=== PATIENT | male | born 1955 | race Caucasian/White ===

== ENCOUNTER 2021-08-27 01:34 | Outpatient (CLI) | payer MEDICARE, BC, SELFPAY ==
[2021-08-27 12:50] LABS: CREATININE 1.5 mg/dL (0.70-1.30); Calculated LDL 57 mg/dL (<100); Cholesterol 115 mg/dL (<200); Estimated GFR 46.97 (mL/min/1.73m2); HDL Cholesterol 39 mg/dL (40-60); Triglyceride 95 mg/dL (<150)
[2021-08-27 22:13] LABS: PSA, Screening 1.1 ng/mL (<=4.5)
== END 2021-08-27 01:35 | disposition home or self-care (01) ==
LOC: LOS 01:34
PROVIDERS: PCP Nurse Practitioner Family; Visit Provider Nurse Practitioner Family
DX: E78.5 Hyperlipidemia, unspecified (principal); E11.9 Type 2 diabetes mellitus without complications; R35.0 Frequency of micturition; Z12.5 Encounter for screening for malignant neoplasm of prostate
CPT/HCPCS: 36415; 80061; 84153; 82565

== ENCOUNTER 2021-09-19 11:15 | Emergency (ER) | payer MEDICARE, BC, SELFPAY ==
[2021-09-19 11:26] VITALS: BP 154/95; PULSE 63; RESP 16; TEMP 36.8; O2SAT 97
--- NOTE | 2021-09-19 11:33 | W.ED.GENAD ---
Discharge Plan Disposition Patient Disposition: HOME Condition: Stable Discharge Details Clinical Impression: Contusion of rib Primary Care Provider: Maynor Hunt ED Provider: Apryl Sow Home Meds and New Rx's Prescriptions: New oxycodone 5 mg tablet 5 mg PO TID PRN (Reason: pain) Qty: 7 0RF Continued ipratropium bromide 21 mcg (0.03 %) spray,non-aerosol 2 spray intranasal TID Rx Instructions: administer into each nostril lisinopril 2.5 mg tablet 2.5 mg PO DAILY naproxen 500 mg tablet 500 mg PO BID divalproex 250 mg tablet extended release 24 hr PO DAILY metformin 500 mg tablet extended release 24 hr 500 mg PO BID Qty: 180 3RF bupropion HCl 100 mg tablet 100 mg PO DAILY bupropion HCl 150 mg tablet extended release 24 hr 150 mg PO QHS Qty: 90 3RF cyclobenzaprine 10 MG tablet 10 mg PO BID PRNQty: 30 atorvastatin [Lipitor] 20 MG tablet 20 mg PO HS Qty: 90 metoprolol succinate 50 mg tablet extended release 24 hr 50 mg PO DAILY memantine 28 mg capsule,sprinkle,ER 24hr 28 mg PO DAILY flecainide 100 mg tablet 100 mg PO BID Qty: 180 3RF donepezil 10 mg tablet 10 mg PO BID Qty: 180 3RF Discharge Instructions Instructions: Rib Contusion (ED) Additional Instructions: As we discussed, your imaging was reassuring here today. No evidence of bleeding or acute fracture. There was findings that you are already aware of including kidney stones as well as spinal fractures. Please encourage hydration. Please use the incentive spirometer to help prevent infection as instructed by nursing staff. You may use Tylenol to help with discomfort, please continue with the anti-inflammatories that you use daily. You may also use topical options such as lidocaine patches. A short prescription of oxycodone tablet has been refilled for you. Please take this only as directed, do not drive while taking this medication. Do not drink any alcohol while using this medication. Please follow-up with primary care in 1 to 2 weeks for reevaluation. If develop increased pain fevers/chills, shortness of breath or other new/worsening symptoms please seek care urgently once again. Referrals: Maynor Hunt, [employer]PL[employer] R[employer] CLERK [Primary Care Provider] - Discharge Data Discharge Date/Time-TO BE ENTERED AT DEPARTURE: 09/19/21 13:50 Medical Decision Making Patient is a pleasant 65-year-old male, accompanied by significant other, chief complaint of left-sided chest and abdominal pain. He reports that last night he was coming out at a friend's house when he slipped on wet stairs and fell 3-4 steps down landing on a large plastic recycling container striking left lower chest/left upper abdomen. He denies strike his head. No loss conscious. Denies any headache visual change. No nausea or vomiting. No incontinence. No fevers or chills. States that he has pain with deep inspiration. No shortness of breath when at rest. Pain with any movement. On exam, patient appears uncomfortable, particularly with movement. No evidence of head trauma, no C-spine tenderness. Full range of motion. Lungs are clear in all corrales, normal cardiac exam. He has point tenderness along the left inferior rib. No palpable deformity. Small area of ecchymosis along the anterior aspect of the left upper quadrant approximately 4 cm in diameter. Abdominal exam is significant for left upper quadrant pain. FAST exam performed myself, no acute abnormality Appreciated. Will give patient Tylenol and oxycodone for pain. He does have an allergy to morphine but if he cannot well with oxycodone in the past. Took an anti-inflammatory at this morning at per his normal routine. Consider most likely diagnosis of the rib fracture. However, as he does have left upper quadrant discomfort, also concern for potential injury to kidney, spleen, pancreas versus other. Patient I discussed imaging and will move forward with a noncontrast CT scan given the contrast shortage. Less obtain baseline labs. Patient also reports that he has had increased urinary frequency. Initially, he reported that this was new over the past month. However, feels that this is been going on much longer and associates this with history of previous stroke. I have abundance of caution, will obtain a urinalysis to evaluate for potential infection. He has not had any dysuria. No fevers or chills. No CVA tenderness, abdominal pain prior to fall. FINDINGS: Lungs: Unremarkable. No consolidation. No masses. Pleural spaces: Unremarkable. No pneumothorax. No pleural effusion. Heart: Unremarkable. No cardiomegaly. No pericardial effusion. Lymph nodes: Unremarkable. No enlarged lymph nodes. Vasculature: Unremarkable. No aortic aneurysm. Bones/joints: Unremarkable. No acute fracture. Soft tissues: Unremarkable. IMPRESSION: No acute findings. FINDINGS: Liver: Normal. No mass. Gallbladder and bile ducts: Normal. No calcified stones. No ductal dilation. Pancreas: Normal. No ductal dilation. Spleen: Normal. No splenomegaly. Adrenal glands: Normal. No mass. Kidneys and ureters: Bilateral nonobstructive nephrolithiasis. Stomach and bowel: Unremarkable. No obstruction. No mucosal thickening. Appendix: No evidence of appendicitis. Intraperitoneal space: Unremarkable. No free air. No significant fluid collection. Vasculature: Unremarkable. No abdominal aortic aneurysm. Lymph nodes: Unremarkable. No enlarged lymph nodes. Urinary bladder: Unremarkable as visualized. Reproductive: Unremarkable as visualized. Bones/joints: There is a compression fracture involving the inferior endplate of L1, with less than 25% loss of height. There is a compression fracture of T5, with approximately 50% loss of height. Soft tissues: Bilateral fat containing inguinal hernias. IMPRESSION: No acute intra-abdominal or intrapelvic findings. Age-indeterminate compression fractures involving T5 and L1. Bilateral nonobstructive nephrolithiasis. Discussed with patient. Slight anemia on labs which is baseline. Patient was aware of fx and stones. He reports feeling inproved fter APAP, lidoderm and oxycodone. Will give incentive spirometer. Patitent is preferring to have shallow breathing and splinting. Plan to continue with short course of oxycodone. Also discussed nonnarcotic pain medication options and supportive care. Advised contusion. Return precautions discussed. Advised f/u with PCP for reevaluation. All of his questions and concerns were addressed, he isin agreement with this plan. HPI General Date/Time Provider Initiated Documentation: 09/19/21 11:33. Limitations to Documentation: no limitations. Information obtained by: patient, family and RN notes reviewed. History of Present Illness 65 year old M presents to the emergency department with the chief complaint of left sided rib pain, described as moderate, with intensity rated at 7. Quality is described as aching, and is localized to the chest (left lower rib pain after fall). Patient reports no radiation. Patient started experiencing this day(s) and it has been constant. Immobilization improves symptom(s), Movement worsens symptoms . Patient notes no other symptoms.. Patient did receive the following treatments prior to arrival, none Related Data Home Medications Medication Instructions Recorded Confirmed atorvastatin 20 mg tablet (Lipitor) 20 mg PO HS #90 tab-caps 01/25/16 09/19/21 cyclobenzaprine 10 mg tablet 10 mg PO BID PRN #30 tab-caps 01/25/16 09/19/21 memantine 28 mg capsule 28 mg PO DAILY 08/14/21 09/19/21 sprinkle,extended release 24hr metoprolol succinate 50 mg 50 mg PO DAILY 08/14/21 09/19/21 tablet,extended release 24 hr ipratropium bromide 21 mcg (0.03 2 spray intranasal TID 08/18/21 09/19/21 %) nasal spray lisinopril 2.5 mg tablet 2.5 mg PO DAILY 08/18/21 09/19/21 naproxen 500 mg tablet 500 mg PO BID 08/18/21 09/19/21 bupropion HCl 100 mg tablet 100 mg PO DAILY 08/20/21 09/19/21 bupropion HCl 150 mg 24 hr tablet, 150 mg PO QHS #90 tabs 08/20/21 09/19/21 extended release divalproex 250 mg tablet,extended PO DAILY 08/20/21 09/02/21 release 24 hr metformin 500 mg tablet,extended 500 mg PO BID #180 tabs 08/20/21 09/19/21 release 24 hr donepezil 10 mg tablet 10 mg PO BID #180 tabs 08/25/21 09/19/21 flecainide 100 mg tablet 100 mg PO BID #180 tabs 08/25/21 09/19/21 oxycodone 5 mg tablet 5 mg PO TID PRN pain #7 tabs 09/19/21 Previous Rx's Medication Instructions Recorded bupropion HCl 150 mg 24 hr tablet, 150 mg PO QHS #90 tabs 08/20/21 extended release metformin 500 mg tablet,extended 500 mg PO BID #180 tabs 08/20/21 release 24 hr donepezil 10 mg tablet 10 mg PO BID #180 tabs 08/25/21 flecainide 100 mg tablet 100 mg PO BID #180 tabs 08/25/21 oxycodone 5 mg tablet 5 mg PO TID PRN pain #7 tabs 09/19/21 Allergies Allergy/AdvReac Type Severity Reaction Status Date / Time morphine Allergy Mild ITCHING Unverified 09/19/21 11:29 ciprofloxacin Allergy Unknown Unverified 09/19/21 11:29 codeine Allergy Unknown Unverified 09/19/21 11:29 dextromethorphan Allergy Unknown Unverified 09/19/21 11:29 [From Nuedexta] pollen extracts Allergy Unknown Unverified 09/19/21 11:29 quinidine [From Nuedexta] Allergy Unknown Unverified 09/19/21 11:29 Sulfa (Sulfonamide Allergy Unknown Unverified 09/19/21 11:29 Antibiotics) General Stated Complaint: Chest/Rib RERE: 3 Review of Systems Constitutional Constitutional: Reports as per HPI and Denies headache(s) ENT Ears, Nose, Mouth, and Throat: Denies headache(s) Cardiovascular Cardiovascular: Reports as per HPI, Denies dyspnea and Denies dyspnea on exertion Respiratory Respiratory: Reports as per HPI, Denies chest congestion, Denies cough, Denies dyspnea and Denies dyspnea on exertion Gastrointestinal Gastrointestinal: Reports as per HPI, Denies diarrhea, Denies nausea and Denies vomiting Genitourinary Genitourinary: Denies system reviewed and no additional complaints, except as documented (denies change in urinary habits) Musculoskeletal Musculoskeletal: Reports as per HPI and Denies back pain Integumentary/Breasts Skin/Breast: Reports as per HPI and Denies rash Neurologic Neurologic: Reports as per HPI and Denies headache(s) PFSH All Active Problems (Updated 09/19/21 @ 13:39 by TAQUERIA Linder) Contusion of rib (Acute) Urinary frequency (Acute) Tachycardia (Acute) MARTA (obstructive sleep apnea) (Chronic) Does not use CPAP Hyperlipidemia (Acute) Arthritis (Acute) Knees, lower back, shoulders Acute CVA (cerebrovascular accident) (Acute) 2018 and 2019 Chronic low back pain (Acute) Lumbar facet arthropathy (Acute) Lumbar spondylosis (Acute) without myelopathy or radiculopathy 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 Heart disease (Acute) Diabetes (Chronic) Mild cognitive impairment (Acute) Right frontal lobe punctate hemorrhage (Acute) Cerebral amyloid angiopathy (Acute) Generalized tonic-clonic seizure (Acute) Only 1 seizure ever after first CVA Diabetic peripheral neuropathy (Acute) Very mild Medical History (Updated 09/19/21 @ 13:39 by TAQUERIA Linder) Bilateral inguinal hernia 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 Status post appendectomy Family History (Updated 08/13/21 @ 16:59 by Myriam Joshi) Mother Heart disease Dementia Father Heart disease Alzheimer disease Brother Alcohol use disorder Depression Heart disease Grandfather Heart disease Grandfather Personal history of malignant neoplasm LUNG Grandmother Essential hypertension Heart disease Grandmother Diabetes Essential hypertension Personal history of malignant neoplasm COLON Heart disease Social History (Updated 08/16/21 @ 19:09 by Myriam Joshi) Smoking/Tobacco Use Status: Former Tobacco Use Second Hand Exposure: Yes Smoking risk assessment performed?: Yes Alcohol Intake: current Alcohol Intake frequency: holidays/special occasions only Drug use: Never Substance use type: does not use Caregiver/Support person: No Household members: significant other Do you need help understanding health information?: Always Pets and animals: Yes Pets and animals: cat(s) and dog(s) Do you think of yourself as: straight/heterosexual Current gender identity: male What is your relationship status?: living with partner How often do you talk on the phone with friends or family?: three or more times per week How often do you get together with friends or relatives?: twice per week How often do you attend alevism or jehovah's witness services?: decline to answer Do you belong to any clubs or organized social groups?: no Panel score (0-1 are the most socially isolated patients): 2 What type of physical activity do you participate in: none Yaima/Latter-Day: Catholic Seatbelt use: always Drive intox or ride w/intox delivery driver/supervisor: No Do you feel safe at home: Yes Do you feel safe in your relationship?: Yes Exam Const General: cooperative, healthy appearing, uncomfortable, no acute distress and well developed Nutritional Appearance: well nourished and overweight Orientation: alert, awake and oriented x3 [facility] Head: normal to inspection and atraumatic Ears: hearing grossly normal bilaterally Mouth: moist mucous membranes Neck Neck: normal visual inspection and full ROM Chest Chest: normal inspection of the chest, normal palpation of entire chest wall, no crepitus and localized rib tenderness with anteroposterior compression (left inferior lateral ribs) Resp Effort & Inspection: normal respiratory effort, able to speak in complete sentences and no respiratory distress Auscultation: clear to auscultation bilaterally, no rales, no rhonchi and no wheezes Cardio Rate: regular rate Rhythm: regular rhythm Heart Sounds: S1 normal and S2 normal GI Inspection: abdominal wall ecchymosis (4cm circular ecchymotic area LUQ), no edema and non-distended Palpation: soft, no hepatosplenomegaly, not firm, no guarding, not rigid and tender in the LUQ Auscultation: normal bowel sounds Back/Spine/Pelvis Back: no CVA tenderness Thoracic/Lumbar Spine: thoracic and lumbar spine normal to inspection, No paraspinal tenderness, No thoracic spinal tenderness and No lumbar spinal tenderness Skin General skin exam: ecchymosis Neuro General: patient alert, patient awake and patient oriented x3 Cognition: normal cognition Speech: speech normal Gait: normal gait Motor: muscle tone normal throughout and strength 5/5 throughout Sensory Exam: no sensory deficits noted (no saddle paresthesias) Extrem General: normal to inspection, capillary refill normal and normal gait Psych Appearance: grossly normal and well kempt Mental Status: mental status grossly normal Speech and Movement: speech and movement normal Course Vital Signs Vital signs: Vital Signs Temperature 36.8 C 09/19/21 11:26 Pulse 63 09/19/21 11:26 Respiratory Rate 16 09/19/21 11:26 Blood Pressure 154/95 H 09/19/21 11:26 Pulse Oximetry 97 09/19/21 11:26 Temperature 36.8 C 09/19/21 11:26 Temperature Source Temporal Artery Scan 09/19/21 11:26 Pulse 63 09/19/21 11:26 Respiratory Rate 16 09/19/21 11:26 Respiratory Effort Non-Labored 09/19/21 11:28 Blood Pressure 154/95 H 09/19/21 11:26 Blood Pressure Position Sitting 09/19/21 11:26 Pulse Oximetry 97 09/19/21 11:26 Oxygen Delivery Method Room Air 09/19/21 11:26 Oxygen Flow Rate 0 09/19/21 11:26 Pain Level 7 09/19/21 11:26
[2021-09-19 11:55] LABS: Bilirubin Negative (Negative); Blood Negative (Negative); Clarity Clear (Clear); Glucose Negative (Negative); Ketones Negative (Negative); Leukocyte Esterase Trace (Negative); Nitrite Negative (Negative); Specific Gravity >= 1.030 (1.005-1.025); Urobilinogen 0.2 EU/dL (Up TO 0.2); pH 5.5 (5-8)
--- NOTE | 2021-09-19 12:00 | DI.CT_ITS ---
Exam(s) CT CHEST/ABD/PEL WO EXAM: CT CHEST/ABD/PEL WO CLINICAL HISTORY: left sided injury, fall. TECHNIQUE: Imaging Protocol: Axial computed tomography images with coronal and sagittal reformatted images were created and reviewed CONTRAST MATERIAL: Intravenous: none Oral: None COMPARISON: No exams were available for comparison FINDINGS: CHEST: LUNGS: No evidence of lung contusion or pleural effusion or pneumothorax. No significant incidental nodules. MEDIASTINUM: No evidence of mediastinal hematoma. No hilar nor mediastinal adenopathy. Visualized t hyroid unremarkable. CARDIAC: Heart size is normal. There is no pericardial effusion.Caliber of the thoracic aorta is wit hin normal limits. OSSEOUS: There is a compression fracture of T5 which is predominately at the inferior endplate level. This is probably not acute given its appearance. ABDOMEN: There is no ascites. LIVER: No evidence of a patent laceration on this noninfused study. No other focal hepatic findings. GALLBLADDER/BILIARY: No obvious gallbladder pathology. CBD is not dilated. PANCREAS: No evidence of obvious pancreatic mass nor dilatation of the pancreatic duct. SPLEEN: Intact. No laceration. Normal size ADRENALS: There are no significant adrenal masses. KIDNEYS: There are multiple bilateral small nonobstructive renal calculi measuring up to 3 millimeter s. No hydronephrosis nor hydroureter and there are no calculi seen in the distal ureters nor in the nondistended urinary bladder.. There are no renal cysts nor solid masses. ABDOMINAL AORTA: Abdominal aorta is not enlarged. LYMPH NODES: There is no retroperitoneal nor para-aortic adenopathy. ABDOMINAL WALL/GI: There is an anterior abdominal wall midline fat containing umbilical hernia. No b owel loops therein. No bowel obstruction. No free air. No free fluid. PELVIS: LYMPH NODES: There is no intrapelvic nor inguinal adenopathy. GI: No evidence of appendicitis.There are few sigmoid diverticuli. No obvious acute diverticulitis. URINARY BLADDER: No calculi nor obvious masses evident REPRODUCTIVE: Prostate gland is not enlarged. Seminal vesicles unremarkable. OSSEOUS: No significant osseous lesions. Multilevel chronic degenerative disc disease throughout the lumbosacral spinal column. There is a Sc hmorl's node invagination in the inferior endplate of L1 vertebral body. IMPRESSION: 1. There are multiple bilateral nonobstructive renal calculi, these measure up to 3 millimeters. No hydronephrosis. No hydroureter. No radiopaque calculi in the nondistended urinary bladder. 2. Compression fracture of T5 predominantly at the inferior endplate level and not appearing acute. The correlation with site of tenderness is recommended. Also prominent Schmorl's node invagination i nto the inferior endplate of L1. 3. No significant intrathoracic findings. RADIATION DOSE DELIVERED: 1,759.47mGy.cm Total DLP DATA REPOSITORY: All CT scans at this facility are submitted to the National Radiology Data Registry (NRDR) Dose Index Registry (DIR) with the [employer] (ACR). RADIATION OPTIMIZATION: All CT scans at this facility use at least one of these dose optimization te chniques: automated exposure control; mA and/or kV adjustment per patient size (includes targeted exa ms where dose is matched to clinical indication); or iterative reconstruction.
[2021-09-19 12:03] LABS: Bacteria Rare HPF (Negative); Casts Negative LPF (Negative); Crystals Negative HPF (Negative); Epithelial Cells Rare HPF (Negative); Mucus Negative (Negative); RBC Negative HPF (0-2)
[2021-09-19 12:04] LABS: C & S Indicated? Yes
[2021-09-19] MEDS: Acetaminophen 500 MG TAB 1000 MG PO (12:34)
[2021-09-19] MEDS: oxyCODONE 5 MG TAB PO (12:34)
[2021-09-19] MEDS: Lidocaine 5% Patch 1 PATCH TP (12:36)
--- NOTE | 2021-09-19 12:51 | DI.VRAD_ITS ---
PROCEDURE INFORMATION: Exam: CT Chest Without Contrast; Diagnostic Exam date and time: 09/19/2021 12:23 PM Age: 65 years old Clinical indication: Injury or trauma; Llq; Blunt trauma (contusions or hematomas); Injury details: Left sided injury, fall; Additional info: CT contrast contingency protocol TECHNIQUE: Imaging protocol: Diagnostic computed tomography of the chest without contrast. COMPARISON: No relevant prior studies available. FINDINGS: Lungs: Unremarkable. No consolidation. No masses. Pleural spaces: Unremarkable. No pneumothorax. No pleural effusion. Heart: Unremarkable. No cardiomegaly. No pericardial effusion. Lymph nodes: Unremarkable. No enlarged lymph nodes. Vasculature: Unremarkable. No aortic aneurysm. Bones/joints: Unremarkable. No acute fracture. Soft tissues: Unremarkable. IMPRESSION: No acute findings. PROCEDURE INFORMATION: Exam: CT Abdomen And Pelvis Without Contrast Exam date and time: 09/19/2021 12:23 PM Age: 65 years old Clinical indication: Injury or trauma; Llq; Blunt trauma (contusions or hematomas); Injury details: Left sided injury, fall; Additional info: CT contrast contingency protocol TECHNIQUE: Imaging protocol: Computed tomography of the abdomen and pelvis without contrast. COMPARISON: No relevant prior studies available. FINDINGS: Liver: Normal. No mass. Gallbladder and bile ducts: Normal. No calcified stones. No ductal dilation. Pancreas: Normal. No ductal dilation. Spleen: Normal. No splenomegaly. Adrenal glands: Normal. No mass. Kidneys and ureters: Bilateral nonobstructive nephrolithiasis. Stomach and bowel: Unremarkable. No obstruction. No mucosal thickening. Appendix: No evidence of appendicitis. Intraperitoneal space: Unremarkable. No free air. No significant fluid collection. Vasculature: Unremarkable. No abdominal aortic aneurysm. Lymph nodes: Unremarkable. No enlarged lymph nodes. Urinary bladder: Unremarkable as visualized. Reproductive: Unremarkable as visualized. Bones/joints: There is a compression fracture involving the inferior endplate of L1, with less than 25% loss of height. There is a compression fracture of T5, with approximately 50% loss of height. Soft tissues: Bilateral fat containing inguinal hernias. IMPRESSION: No acute intra-abdominal or intrapelvic findings. Age-indeterminate compression fractures involving T5 and L1. Bilateral nonobstructive nephrolithiasis. Dictated and Authenticated by: George Sandra MD. Ordering:ROCHELLE Pink MD
[2021-09-19 13:06] LABS: HCT 36.6 % (40.0-50.0); HGB 12.1 g/dL (13.5-17.5); MCHC 33.1 % (32.0-36.0); MCV 91 fL (80-95); MPV 9.3 fL (8.0-11.0); Platelet Count 209 10^3/uL (130-400); RBC 4.04 10^6/uL (4.36-5.78); RDW 12.4 % (11.8-14.1); RDW-SD 40.6 fL; WBC 5.99 10^3/uL (4.4-10.8)
[2021-09-19 13:18] LABS: ALT 20 U/L (16-63); AST 13 U/L (15-37); Albumin 3.6 g/dL (3.4-5.0); Alkaline Phosphatase 86 U/L (46-116); Anion Gap 6.9 mmol/L (3-11); BUN 26 mg/dL (7-18); Bilirubin, Total 0.6 mg/dL (0.2-1.0); CO2 27.1 mmol/L (21.0-32.0); CREATININE 1.4 mg/dL (0.70-1.30); Calcium 8.8 mg/dL (8.5-10.1); Chloride 106 mmol/L (98-107); Estimated GFR 50.86 (mL/min/1.73m2); Glucose 104 mg/dL (74-106); Lipase 98 U/L (73-393); Potassium 4.4 mmol/L (3.5-5.1); Sodium 140 mmol/L (136-145); Total Protein 6.9 g/dL (6.4-8.2)
[2021-09-19 13:41] VITALS: BP 152/97; PULSE 60; RESP 16; TEMP 36.6; O2SAT 97
== END 2021-09-19 13:50 | disposition home or self-care (01) ==
PROVIDERS: Emergency Provider Physician Assistant; PCP Nurse Practitioner Family
DX: S20.212A Contusion of left front wall of thorax, initial encounter (principal); W10.8XXA Fall (on) (from) other stairs and steps, initial encounter; D64.9 Anemia, unspecified; R35.0 Frequency of micturition; E11.42 Type 2 diabetes mellitus with diabetic polyneuropathy
CPT/HCPCS: 36415; 71250; 80053; 83690; 85027; 99284; 74176; 81003; 81015; 87086

== ENCOUNTER → 2021-11-15 10:45 | Outpatient (BNVA) | payer MEDICARE, BC, SELFPAY | PROVIDERS: PCP Nurse Practitioner Family; Referring Provider Nurse Practitioner Family; Visit Provider Surgery | DX: R19.7 Diarrhea, unspecified (principal); M54.9 Dorsalgia, unspecified; G47.33 Obstructive sleep apnea (adult) (pediatric); I63.9 Cerebral infarction, unspecified; K40.20 Bilateral inguinal hernia, without obstruction or gangrene, not specified as recurrent; I45.4 Nonspecific intraventricular block; E11.9 Type 2 diabetes mellitus without complications | CPT/HCPCS: 99215; 99243 ==

== ENCOUNTER 2021-11-16 19:43 | Outpatient (REF) | payer MEDICARE, BC, SELFPAY ==
[2021-11-17 22:51] LABS: Campylobacter PCR Negative (Negative); Salmonella PCR Negative (Negative); Shiga Toxin PCR Negative (Negative); Shigella/Enteroinvasive Ecoli Negative (Negative)
== END 2021-11-16 19:44 | disposition home or self-care (01) ==
LOC: LBN 19:43
PROVIDERS: PCP Nurse Practitioner Family; Visit Provider Nurse Practitioner Family
DX: R19.7 Diarrhea, unspecified (principal)
CPT/HCPCS: 87505

== ENCOUNTER 2021-11-25 11:07 | Observation (INO) | payer MEDICARE, BC, SELFPAY ==
[2021-11-25] VITALS (17 sets, daily range): BP systolic 97–146; BP diastolic 53–89; PULSE 63–75; RESP 14–20; TEMP 38.3; O2SAT 92–99
--- NOTE | 2021-11-25 11:30 | DI.CT_ITS ---
Exam(s) CT HEAD WO EXAM: CT HEAD WO CLINICAL HISTORY: altered mental status, r/o acute cva. TECHNIQUE: Imaging Protocol: Axial computed tomography images with coronal and sagittal reformatted images were created and reviewed COMPARISON: No exams were available for comparison FINDINGS: There are no skull fractures nor fluid in the visualized paranasal sinuses. There is no evidence of intracranial hemorrhage, mass effect, or shift of midline structures. There are no extra-axial fluid collections. Lateral ventricles are slightly prominent, this related to abu ndant bilateral periventricular hypodensity consistent with prominent bilateral chronic small vessel disease. This is prominent bilaterally but somewhat more prominent on the right side where there is also evidence of prior infarct in the right periventricular white matter. There is no obvious abnorm ality in the cerebellar hemispheres nor within the rachael, midbrain, and thalami. IMPRESSION: There is abundant bilateral periventricular hypodensity consistent with chronic small vessel disease. Also evidence of nonacute previous infarct in the right periventricular white matter-frontal lobe r egion Recommend MRI. RADIATION DOSE DELIVERED: 817.02mGy.cm Total DLP DATA REPOSITORY: All CT scans at this facility are submitted to the National Radiology Data Registry (NRDR) Dose Index Registry (DIR) with the [employer] (ACR). RADIATION OPTIMIZATION: All CT scans at this facility use at least one of these dose optimization te chniques: automated exposure control; mA and/or kV adjustment per patient size (includes targeted exa ms where dose is matched to clinical indication); or iterative reconstruction.
--- NOTE | 2021-11-25 11:30 | RT.EKG_ITS ---
APPROVED REPORT Exam: Resting ECG Reason for Exam: Altered mental status Patient Location: E HR:70 bpm ECG Measurements Heart Rate 70 AXIS MN 225 P -45 QRSd 121 QRS -52 QT 444 T 15 QTc 478 Conclusion Sinus or ectopic atrial rhythm...P axis (-45,135) Prolonged MN interval...MN >220, V-rate 50- 90 Left ventricular hypertrophy...multiple LVH criteria. Sinus. No STEMI. I have reviewed and interpreted ECG and agree with software generated interpretation.
--- NOTE | 2021-11-25 11:38 | DI.RAD_ITS ---
Exam(s) XR CHEST 2V PA LATERAL EXAM: XR CHEST 2V PA LATERAL CLINICAL HISTORY: covid +, weak, r/o pneumonia. TECHNIQUE: 2D digital imaging was performed. COMPARISON: CR CHEST 2 VIEWS PA,LAT from 02/02/2013 FINDINGS: 2 views: Heart size is normal. The mediastinum is not widened. Lungs are clear. No infiltrates nor pleural effusions. IMPRESSION: No acute pulmonary findings. DATA REPOSITORY: RADIATION DOSE DELIVERED:
[2021-11-25 11:54] LABS: Abs Immature Grans 0.03 10^3/uL (0.0-0.06); Absolute Basophil Count 0.02 10^3/uL (0.0-0.2); Absolute Eosinophil Count 0.01 10^3/uL (0.0-0.7); Absolute Lymphocyte Count 0.51 10^3/uL (1.2-3.4); Absolute Monocyte Count 0.51 10^3/uL (0.1-0.8); Absolute Neutrophil Count 5.39 10^3/uL (1.2-6.7); Basophils % 0.3; Eosinophils % 0.2; HCT 37.3 % (40.0-50.0); HGB 12.3 g/dL (13.5-17.5); Immature Grans % 0.5; Lymphocytes % 7.9; MCH 29.9 pg (27.0-33.0); MCV 91 fL (80-95); MPV 9.8 fL (8.0-11.0); Monocytes % 7.9; Neutrophils % 83.2; Platelet Count 198 10^3/uL (130-400); RBC 4.11 10^6/uL (4.36-5.78); RDW-SD 43.7 fL; WBC 6.47 10^3/uL (4.4-10.8)
[2021-11-25 12:09] LABS: Source Nasal/Nares
[2021-11-25 12:11] LABS: ALT 25 U/L (16-63); AST 22 U/L (15-37); Albumin 3.5 g/dL (3.4-5.0); Alkaline Phosphatase 90 U/L (46-116); BUN 22 mg/dL (7-18); Bilirubin, Total 0.4 mg/dL (0.2-1.0); CREATININE 1.6 mg/dL (0.70-1.30); Calcium 8.4 mg/dL (8.5-10.1); Chloride 104 mmol/L (98-107); Estimated GFR 43.46 (mL/min/1.73m2); Glucose 139 mg/dL (74-106); Magnesium 1.8 mg/dL (1.8-2.4); Sodium 140 mmol/L (136-145); Total Protein 7.3 g/dL (6.4-8.2); Troponin I < 50 ng/L (<or=60)
--- NOTE | 2021-11-25 12:19 | W.ED.GENAD ---
Discharge Plan Disposition Patient Disposition: [facility] INPATIENT Condition: Stable Discharge Details Clinical Impression: COVID-19, Generalized weakness, UTI (urinary tract infection), Chronic diarrhea Admit Date/Time: 11/25/21 17:31 Admit Provider: Bebeto Guzman Attending Provider: Bebeto Guzman Primary Care Provider: Maynor Hunt ED Provider: Nela Abdullahi Discharge Data Discharge Date/Time-TO BE ENTERED AT DEPARTURE: 11/25/21 21:06 Medical Decision Making 1130 -- 66-year-old male with a history of diabetes, previous hemorrhagic stroke, hypertension, hyperlipidemia, obstructive sleep apnea and mild dementia presents for confusion last night around 10:30 PM, and an episode of weakness today with difficulty getting up from the floor. No report of syncope edema fall or trauma. Patient's main complaint at this time is fatigue. He took an at home COVID test yesterday which was positive. Hypotensive on arrival with blood pressure 107/56. He has no focal deficits on exam. EKG on arrival notes a rate of 70, sinus, no STEMI nondiagnostic. Patient is outside the window for tPA if this is a possible stroke. Differential diagnosis includes expected course for COVID, dehydration, UTI, electrolyte abnormality, arrhythmia. Will place an IV, bolus IV fluids, screening labs, urinalysis, CT head, chest x-ray and D-dimer. 1700 -- Labs and imaging reviewed. Normal WBC. Troponin negative. CT head negative. Chest x-ray negative. MRI/MRA brain negative for acute stroke but per discussion with Dr. Yen, there are potential areas for hemorrhage on susceptibility imaging but no acute stroke or bleed noted. D dimer was above age-adjusted cutoff and patient was referred for CT chest which was negative for PE. Per radiology staff, patient timing with contrast was delayed and decison made to rescan with contrast per discussion with Dr. Yen and radiology staff and cleared for second dose of contrast which was less than the initial dose. Please refer to radiology records for further information regarding this incident. Urinalysis notes findings consistent with UTI. Will treat with Rocephin. Urine culture sent. Patient reassessed and he remains fatigued. Considering patient's age and history, will admit for hydration, treatment of UTI, antiviral treatment for COVID considering his multiple comorbidities and have PT evaluation. Case discussed with hospitalist who accepts patient for admission. Medical Records Medical records reviewed: Yes I reviewed the patient's medical records. Imaging Data Radiologic Study: Radiologist's impression: ?CT HEAD WO CLINICAL HISTORY: ? altered mental status, r/o acute cva. ? TECHNIQUE:? Imaging Protocol: Axial computed tomography images with coronal and sagittal reformatted images were created and reviewed COMPARISON:? No exams were available for comparison FINDINGS: ?There are no skull fractures nor fluid in the visualized paranasal sinuses. There is no evidence of intracranial hemorrhage, mass effect, or shift of midline structures.? There are no extra-axial fluid collections.? Lateral ventricles are slightly prominent, this related to abundant bilateral periventricular hypodensity consistent with prominent bilateral chronic small vessel disease.? This is prominent bilaterally but somewhat more prominent on the right side where there is also evidence of prior infarct in the right periventricular white matter.? There is no obvious abnormality in the cerebellar hemispheres nor within the rachael, midbrain, and thalami. IMPRESSION: There is abundant bilateral periventricular hypodensity consistent with chronic small vessel disease.? Also evidence of nonacute previous infarct in the right periventricular white matter-frontal lobe region Recommend MRI. XR CHEST 2V PA ? LATERAL CLINICAL HISTORY: ? covid +, weak, r/o pneumonia. ? TECHNIQUE:? 2D digital imaging was performed. COMPARISON:? CR CHEST 2 VIEWS PA,LAT from 02/02/2013 FINDINGS: 2 views: Heart size is normal.? The mediastinum is not widened. Lungs are clear.? No infiltrates nor pleural effusions. IMPRESSION: No acute pulmonary findings. CT CHEST PE CTA CLINICAL HISTORY: ? elevated d dimer, r/o PE. ? TECHNIQUE:? Imaging Protocol: CT angiography of the chest was performed using pulmonary embolus protocol.? Multi planar reconstructions were performed. CONTRAST MATERIAL:? Intravenous: Omnipaque 350 Contrast volume: 100 cc COMPARISON:? CT CT CHEST/ABD/PEL WO from 09/19/2021 CR XR CHEST 2V PA ? LATERAL from 11/25/2021 FINDINGS: CHEST: PULMONARY ARTERIES: There are no intraluminal filling defects to suggest acute pulmonary emboli. LUNGS: No confluent infiltrates nor pleural effusions.? Mild increased markings which appear to be more related to less than full inspiratory effort than actual true disease..? There are no pleural effusions. MEDIASTINUM: There is no hilar nor mediastinal adenopathy. Visualized thyroid unremarkable. CARDIAC: Heart size is upper normal.? There is no pericardial effusion.Caliber of the thoracic aorta is within normal limits. No dissection.? There is no significant shift of the interventricular septum. PARTIALLY VISUALIZED UPPERMOST ABDOMEN: No obvious findings OSSEOUS: T5 compression fracture appears unchanged.? No new additional fractures evident.. IMPRESSION: 1. No evidence of acute pulmonary emboli.? No evidence of pulmonary infarction.No pleural effusions. 2. No confluent infiltrates nor intrathoracic adenopathy. 3. No aortic dissection nor pericardial effusion. T5 compression fracture again noted.? No new fractures evident. MR BRAIN WO CLINICAL HISTORY:? weakness, confusion, r/o acute cva TECHNIQUE:? Multiplanar multisequence MRI of the brain was performed. COMPARISON:? CT CT HEAD WO from 11/25/[address] CHEST PE CTA from 11/25/2021 FINDINGS: CEREBRAL PARENCHYMA: There is no evidence of acute intracranial hemorrhage, mass effect, or shift of midline structures.? There are no extra-axial fluid collections.? No significant signal abnormalities in the cerebellar hemispheres nor within the rachael, midbrain, and thalami.? There is abundant bilateral confluent periventricular signal abnormality consistent with chronic small vessel disease.? There is also evidence of prior nonacute infarction in the right frontal lobe, consistent with what is seen on the CT scan.? There is no restricted diffusion at this level nor elsewhere in the brain. There is no significant focal signal abnormality evident on diffusion imaging to suggest acute ischemic event. Susceptibility weighted imaging reveals abundant abnormal blooming signal with innumerable microhemorrhages throughout the brain bilaterally as well as evidence of prior hemorrhage in the area of encephalomalacia in the right frontal lobe.? Also in the bilateral occipital parietal regions.? In the left occipital parietal region there is a cyst since stripe of T2 hypointense signal abnormality which is isointense on T1.? This is also consistent with small area prior prior hemorrhage. PITUITARY GLAND: No mass nor parasellar abnormality. No obvious abnormality in the cavernous sinuses. FLOW VOIDS: The expected flow void are noted. No evidence of obvious aneurysm nor obvious vascular malformation. PARANASAL SINUSES: Some mucosal thickening in the left maxillary sinus is noted.? Right maxillary sinus is clear as are the other paranasal sinuses including the frontal sinuses and mastoid air cells.? ORBITS: No obvious findings. IMPRESSION: Abundant chronic bilateral white matter small-vessel disease.? Evidence of previous hemorrhagic infarct in the right frontal lobe and left [id number] region. No acute infarcts evident on diffusion imaging.? However, there are numerous bilateral areas of microhemorrhages on susceptibility weighted imaging See separate CT scan report See separate brain MRA report MR ANGIO BRAIN WO CLINICAL HISTORY:? confusion, weakness, r/o acute cva TECHNIQUE:? Performed on 1.5 aster unit with [id number] sequence.? No IV contrast. Field of view is from the skull base up. Images somewhat degraded by motion artifact COMPARISON:? MR MR BRAIN WO from 11/25/2021 FINDINGS: ANTERIOR CIRCULATION: Internal carotid arteries appear to be patent in the skull base-carotid canals as well as within the cavernous sinuses.? The supraclinoid aspects are patent.? Both A1 segments are patent as are the anterior cerebral arteries.? There is no aneurysm at the level of the anterior communicating artery. Both middle cerebral arteries are patent.? In a no significant stenosis.? No occlusion.? No aneurysm in these vessels. POSTERIOR CIRCULATION: Basilar artery is formed at the skull base by contribution from both vertebral arteries.? Basilar artery ascends in the midline with normal luminal diameter and no evidence of thrombosis nor dissection. .? Distally gives off patent superior cerebellar arteries.? Above this level the basilar artery terminates as patent left posterior cerebral artery and a thin right posterior cerebral artery.? The right posterior cerebral artery is also supplied by a thin posterior communicating artery on the right side of the [id number]-[id number].? Both posterior cerebral arteries appear patent.? There is no evidence of aneurysm at the tip of the basilar artery nor elsewhere in the kbexyf-jk-Mcimbk. IMPRESSION: 1. Less than optimal study due to motion but the main intracranial arteries appear patent, as described above. 2. Also no aneurysms. See separate brain CT and MRI reports performed today.. Lab Data Lab results reviewed: Yes I reviewed the patient's lab results. Labs: 11/25/21 13:16 Urine - Reflex from Ua Urine Culture - Pending Laboratory Tests Range/Units 11/25/21 11/25/21 11/25/21 11:42 11:42 11:42 WBC (4.4-10.8) 10^3/uL 6.47 RBC (4.36-5.78) 10^6/uL 4.11 L Hgb (13.5-17.5) g/dL 12.3 L Hct (40.0-50.0) % 37.3 L MCV (80-95) fL 91 MCH (27.0-33.0) pg 29.9 MCHC (32.0-36.0) % 33.0 RDW (11.8-14.1) % 13.0 Plt Count (130-400) 10^3/uL 198 MPV (8.0-11.0) fL 9.8 Immature Gran % 0.5 Neutrophils % 83.2 Lymphocytes % 7.9 Monocytes % 7.9 Eosinophils % 0.2 Basophils % 0.3 Nucleated RBC % (0.0-0.3) % 0.0 Absolute Neutrophils (1.2-6.7) 10^3/uL 5.39 Absolute Lymphocytes (1.2-3.4) 10^3/uL 0.51 L Absolute Monocytes (0.1-0.8) 10^3/uL 0.51 Absolute Eosinophils (0.0-0.7) 10^3/uL 0.01 Absolute Basophils (0.0-0.2) 10^3/uL 0.02 D-Dimer (<500) ng/mlFEU Sodium (136-145) mmol/L 140 Potassium (3.5-5.1) mmol/L 4.0 Chloride (98-107) mmol/L 104 Carbon Dioxide (21.0-32.0) mmol/L 26.0 Anion Gap (3-11) mmol/L 10.0 BUN (7-18) mg/dL 22 H Creatinine (0.70-1.30) mg/dL 1.6 H Estimated GFR/1.73 m2 (mL/min/1.73m2) 43.46 Glucose (74-106) mg/dL 139 H Calcium (8.5-10.1) mg/dL 8.4 L Magnesium (1.8-2.4) mg/dL 1.8 Total Bilirubin (0.2-1.0) mg/dL 0.4 AST (15-37) U/L 22 ALT (16-63) U/L 25 Alkaline Phosphatase (46-116) U/L 90 Troponin I (<or=60) ng/L < 50 Total Protein (6.4-8.2) g/dL 7.3 Albumin (3.4-5.0) g/dL 3.5 Urine Color (Yellow) Urine Clarity (Clear) Urine pH (5-8) Ur Specific Preston (1.005-1.025) Urine Protein (Negative) mg/dL Urine Ketones (Negative) mg/dL Urine Blood (Negative) Urine Nitrite (Negative) Urine Bilirubin (Negative) Urine Urobilinogen (Up TO 0.2) EU/dL Ur Leukocyte Esterase (Negative) Urine RBC (0-2) HPF Urine WBC (0-5) HPF Ur Epithelial Cells (Negative) HPF Urine Crystals (Negative) HPF Urine Bacteria (Negative) HPF Urine Casts (Negative) LPF Urine Mucus (Negative) Ur Culture Indicated? Urine Glucose (Negative) mg/dL COVID-19 Source Cancelled SARS-CoV-2 (PCR) Cancelled Range/Units 11/25/21 11/25/21 11/25/21 11:42 12:05 13:16 WBC (4.4-10.8) 10^3/uL RBC (4.36-5.78) 10^6/uL Hgb (13.5-17.5) g/dL Hct (40.0-50.0) % MCV (80-95) fL MCH (27.0-33.0) pg MCHC (32.0-36.0) % RDW (11.8-14.1) % Plt Count (130-400) 10^3/uL MPV (8.0-11.0) fL Immature Gran % Neutrophils % Lymphocytes % Monocytes % Eosinophils % Basophils % Nucleated RBC % (0.0-0.3) % Absolute Neutrophils (1.2-6.7) 10^3/uL Absolute Lymphocytes (1.2-3.4) 10^3/uL Absolute Monocytes (0.1-0.8) 10^3/uL Absolute Eosinophils (0.0-0.7) 10^3/uL Absolute Basophils (0.0-0.2) 10^3/uL D-Dimer (<500) ng/mlFEU 722 H Sodium (136-145) mmol/L Potassium (3.5-5.1) mmol/L Chloride (98-107) mmol/L Carbon Dioxide (21.0-32.0) mmol/L Anion Gap (3-11) mmol/L BUN (7-18) mg/dL Creatinine (0.70-1.30) mg/dL Estimated GFR/1.73 m2 (mL/min/1.73m2) Glucose (74-106) mg/dL Calcium (8.5-10.1) mg/dL Magnesium (1.8-2.4) mg/dL Total Bilirubin (0.2-1.0) mg/dL AST (15-37) U/L ALT (16-63) U/L Alkaline Phosphatase (46-116) U/L Troponin I (<or=60) ng/L Total Protein (6.4-8.2) g/dL Albumin (3.4-5.0) g/dL Urine Color (Yellow) Yellow Urine Clarity (Clear) Sl Cloudy Urine pH (5-8) 5.5 Ur Specific Preston (1.005-1.025) >= 1.030 H Urine Protein (Negative) mg/dL 30 H Urine Ketones (Negative) mg/dL Negative Urine Blood (Negative) Moderate H Urine Nitrite (Negative) Negative Urine Bilirubin (Negative) Negative Urine Urobilinogen (Up TO 0.2) EU/dL 0.2 Ur Leukocyte Esterase (Negative) Small H Urine RBC (0-2) HPF 10-20 H Urine WBC (0-5) HPF 20-50 H Ur Epithelial Cells (Negative) HPF Few Urine Crystals (Negative) HPF Negative Urine Bacteria (Negative) HPF Many Urine Casts (Negative) LPF 0-2 Hyaline Urine Mucus (Negative) Negative Ur Culture Indicated? Yes Urine Glucose (Negative) mg/dL Negative COVID-19 Source Nasal/Nares SARS-CoV-2 (PCR) POSITIVE A* ECG Data Attestation: I personally reviewed and interpreted this ECG (s) as follows: Interpretation: Rate of 70, sinus, no STEMI HPI General Mode of arrival: ambulatory. Date/Time Provider Initiated Documentation: 11/25/21 11:09. Limitations to Documentation: no limitations. Information obtained by: patient. HPI Narrative: Patient is a 56-year-old male with a history of previous hemorrhagic stroke, diabetes, hypertension, hyperlipidemia, mild dementia, sleep apnea who presents for confusion last night and weakness with difficulty getting up from the floor after an episode of weakness today. states that patient has had ongoing urinary incontinence for a month occurring 1-3 times daily. She states last night he had an episode of incontinence and appeared confused at the time which is new. She states he was asking about a balloon. She states today she left the camper where they are staying to go into a nearby house for a cup of coffee and she heard him call out to her. When she went to him he was lying on the ground and appeared aguilar and sweaty and was having difficulty getting up. She states he was eventually able to get up and she assisted him outside. She states when she found him on the floor he also had soiled himself with watery brown diarrhea which she states has been ongoing for several months which is currently being evaluated. Patient states he did not pass out. He states he was walking in a camper and felt weak and denies any injury or or fall. He states he thinks he lowered himself to the ground and was too weak to get up on his own. states that patient drinks mainly diet soda and does not drink water. She states that he took an at home COVID test yesterday for a recent productive cough which was positive. She states he is fully vaccinated for COVID but did attend a wedding over the weekend. Patient states his main complaint at this time is mainly fatigue. He denies any known fever, sore throat, chest pain, difficulty breathing, abdominal pain, dysuria. Related Data Home Medications Medication Instructions Recorded Confirmed atorvastatin 20 mg tablet (Lipitor) 20 mg PO HS #90 tab-caps 01/25/16 11/30/21 cyclobenzaprine 10 mg tablet 10 mg PO BID PRN #30 tab-caps 01/25/16 11/30/21 memantine 28 mg capsule 28 mg PO DAILY 08/14/21 11/30/21 sprinkle,extended release 24hr bupropion HCl 100 mg tablet 100 mg PO DAILY 08/20/21 11/30/21 divalproex 250 mg tablet,extended 250 mg PO DAILY 08/20/21 11/30/21 release 24 hr donepezil 10 mg tablet 10 mg PO BID #180 tabs 08/25/21 11/30/21 flecainide 100 mg tablet 100 mg PO BID #180 tabs 08/25/21 11/30/21 ipratropium bromide 21 mcg (0.03 2 spray intranasal TID #30 mL 09/27/21 11/30/21 %) nasal spray lisinopril 2.5 mg tablet 2.5 mg PO DAILY #90 tabs 10/07/21 11/30/21 bupropion HCl 150 mg tablet,12 hr 150 mg PO QHS #90 tabs 10/11/21 11/30/21 sustained-release metformin 500 mg tablet,extended 500 mg PO DAILY #180 tabs 10/20/21 11/30/21 release 24 hr metoprolol succinate 50 mg 50 mg PO DAILY #90 tabs 10/20/21 11/30/21 tablet,extended release 24 hr diphenoxylate-atropine 2.5 1 tab PO TID PRN diarrhea #60 tabs 11/11/21 11/30/21 mg-0.025 mg tablet (Lomotil) cefpodoxime 200 mg tablet 200 mg PO BID #10 tabs 11/26/21 11/30/21 Previous Rx's Medication Instructions Recorded donepezil 10 mg tablet 10 mg PO BID #180 tabs 08/25/21 flecainide 100 mg tablet 100 mg PO BID #180 tabs 08/25/21 ipratropium bromide 21 mcg (0.03 2 spray intranasal TID #30 mL 09/27/21 %) nasal spray lisinopril 2.5 mg tablet 2.5 mg PO DAILY #90 tabs 10/07/21 bupropion HCl 150 mg tablet,12 hr 150 mg PO QHS #90 tabs 10/11/21 sustained-release metformin 500 mg tablet,extended 500 mg PO DAILY #180 tabs 10/20/21 release 24 hr metoprolol succinate 50 mg 50 mg PO DAILY #90 tabs 10/20/21 tablet,extended release 24 hr diphenoxylate-atropine 2.5 1 tab PO TID PRN diarrhea #60 tabs 11/11/21 mg-0.025 mg tablet (Lomotil) cefpodoxime 200 mg tablet 200 mg PO BID #10 tabs 11/26/21 Allergies Allergy/AdvReac Type Severity Reaction Status Date / Time morphine Allergy Mild ITCHING Unverified 11/30/21 12:03 ciprofloxacin Allergy Unknown Unverified 11/30/21 12:03 codeine Allergy Unknown Unverified 11/30/21 12:03 dextromethorphan Allergy Unknown Unverified 11/30/21 12:03 [From Nuedexta] pollen extracts Allergy Unknown Unverified 11/30/21 12:03 quinidine [From Nuedexta] Allergy Unknown Unverified 11/30/21 12:03 Sulfa (Sulfonamide Allergy Unknown Unverified 11/30/21 12:03 Antibiotics) General Stated Complaint: CVA/TIA RERE: 2 Review of Systems All systems reviewed & are unremarkable except as noted in HPI and below Constitutional Constitutional: Denies chills, Denies excessive sweating, Reports fatigue, Denies fever(s), Reports headache(s), Denies weakness and Denies weight loss Eyes Eyes: Reports system reviewed and no additional complaints, except as documented and Denies blurry vision ENT Ears, Nose, Mouth, and Throat: Denies vertigo, Denies dizziness, Denies otalgia, Reports headache(s), Denies nasal congestion, Denies sore throat and Denies throat swelling Cardiovascular Cardiovascular: Denies chest pain, Denies syncope, Denies rapid heart rate and Denies dyspnea Respiratory Respiratory: Denies chest congestion, Reports cough, Denies pain on inspiration and Denies dyspnea Gastrointestinal Gastrointestinal: Denies abdominal pain, Denies diarrhea and Denies vomiting Genitourinary Genitourinary: Denies hematuria, Denies dysuria, Denies flank pain and Reports urinary incontinence Musculoskeletal Musculoskeletal: Denies back pain and Denies joint swelling Integumentary/Breasts Skin/Breast: Denies lesions and Denies rash Neurologic Neurologic: Denies behavioral changes, Denies confusion, Denies vertigo, Denies dizziness, Denies syncope, Reports headache(s), Denies localized weakness and Denies weakness Psychiatric Psychiatric: Denies behavioral changes, Denies confusion and Denies depression Endocrine Endocrine: Denies excessive sweating and Reports fatigue Hematologic/Lymphatic Hematologic/Lymphatic: Denies easy bruising and Denies lymphadenopathy Allergic/Immunologic Allergic/Immunologic: Denies throat swelling PFSH All Active Problems (Updated 12/01/21 @ 10:11 by TAQUERIA Ospina) Right-sided chest wall pain (Acute) Abdominal pain, RUQ (Acute) Hypertension (Chronic) COVID-19 (Acute) UTI (urinary tract infection) (Acute) Generalized weakness (Acute) Chronic diarrhea (Chronic) Mild cognitive impairment (Chronic) Diabetes (Chronic) COVID-19 (Acute) 11/24/21 Vaccinated, boosted Umbilical hernia (Acute) Back pain (Acute) Diarrhea (Acute) Urinary frequency (Acute) Tachycardia (Chronic) MARTA (obstructive sleep apnea) (Chronic) Does not use CPAP Hyperlipidemia (Acute) Arthritis (Acute) Knees, lower back, shoulders Acute CVA (cerebrovascular accident) (Acute) 2018 and 2019 Chronic low back pain (Acute) Lumbar facet arthropathy (Acute) Lumbar spondylosis (Acute) without myelopathy or radiculopathy 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 Heart disease (Acute) Cerebral amyloid angiopathy (Acute) Generalized tonic-clonic seizure (Acute) Only 1 seizure ever after first CVA Diabetic peripheral neuropathy (Acute) Very mild Medical History Bilateral inguinal hernia 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 Status post appendectomy At age 13 Family History Mother Heart disease Dementia Father Heart disease Alzheimer disease Brother Alcohol use disorder Depression Heart disease Grandfather Heart disease Grandfather Personal history of malignant neoplasm LUNG Grandmother Essential hypertension Heart disease Grandmother Diabetes Essential hypertension Personal history of malignant neoplasm COLON Heart disease Social History Smoking/Tobacco Use Status: Former Tobacco Use Second Hand Exposure: Yes Smoking risk assessment performed?: Yes Alcohol Intake: current Alcohol Intake frequency: holidays/special occasions only Drug use: Never Substance use type: does not use Caregiver/Support person: No Household members: significant other Do you need help understanding health information?: Always Pets and animals: Yes Pets and animals: cat(s) and dog(s) Do you think of yourself as: straight/heterosexual Current gender identity: male What is your relationship status?: living with partner How often do you talk on the phone with friends or family?: three or more times per week How often do you get together with friends or relatives?: twice per week How often do you attend denominational or islam services?: decline to answer Do you belong to any clubs or organized social groups?: no Panel score (0-1 are the most socially isolated patients): 2 What type of physical activity do you participate in: none Yaima/Islam: Scientology Seatbelt use: always Drive intox or ride w/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 mounted: No Do you feel safe at home: Yes Do you feel safe in your relationship?: Yes Exam Const General: cooperative Orientation: alert, awake and oriented x3 HENMT Head: normal to inspection Ears: hearing grossly normal bilaterally, external ears normal and TM's normal bilaterally General nose exam: external nose normal Face and sinus: normal facial exam Mouth: mucous membranes dry Teeth and gingiva: dentition normal Throat: posterior oropharynx normal Eyes General: appearance normal, both eyes and all related structures Eyelids: eyelids normal Pupils: PERRL EOM: EOM intact bilaterally Neck Neck: normal visual inspection Lymphatic: no lymphadenopathy noted Chest Chest: normal inspection of the chest Resp Effort & Inspection: normal respiratory effort and able to speak in complete sentences Auscultation: clear to auscultation bilaterally Cardio Rate: regular rate Rhythm: regular rhythm GI Inspection: normal to inspection Palpation: soft, not firm, no guarding, no hepatosplenomegaly, no masses and nontender Auscultation: normal bowel sounds Back/Spine/Pelvis Back: no CVA tenderness Skin General skin exam: no rashes or lesions noted Neuro General: patient alert and patient awake Cognition: normal cognition Speech: speech normal Gait: normal gait Motor: muscle tone normal throughout Sensory Exam: no sensory deficits noted Extrem General: normal to inspection, full ROM and capillary refill normal Psych Appearance: grossly normal Mental Status: mental status grossly normal Speech and Movement: speech and movement normal Affect: normal affect Thought Process: normal Course Vital Signs Vital signs: Vital Signs Pulse 69 11/25/21 11:13 Respiratory Rate 18 11/25/21 11:13 Blood Pressure 107/56 L 11/25/21 11:13 Pulse Oximetry 96 11/25/21 11:13 Temperature Source Temporal Artery Scan 11/25/21 11:13 Pulse 69 11/25/21 11:13 Respiratory Rate 20 11/25/21 11:25 Respiratory Effort 11/25/21 11:25 Respiratory Depth Normal 11/25/21 11:25 Respiratory Pattern Normal 11/25/21 11:25 Blood Pressure 107/56 L 11/25/21 11:13 Blood Pressure Position Sitting 11/25/21 11:13 Pulse Oximetry 96 11/25/21 11:13 Oxygen Delivery Method Room Air 11/25/21 11:13 Oxygen Flow Rate 0 11/25/21 11:13 Pain Level 6 11/25/21 11:13 Lab/Test Results Lab/Test Results: Laboratory Tests Range/Units 11/25/21 11/25/21 11/25/21 11:42 11:42 11:42 WBC (4.4-10.8) 10^3/uL 6.47 RBC (4.36-5.78) 10^6/uL 4.11 L Hgb (13.5-17.5) g/dL 12.3 L Hct (40.0-50.0) % 37.3 L MCV (80-95) fL 91 MCH (27.0-33.0) pg 29.9 MCHC (32.0-36.0) % 33.0 RDW (11.8-14.1) % 13.0 Plt Count (130-400) 10^3/uL 198 MPV (8.0-11.0) fL 9.8 Immature Gran % 0.5 Neutrophils % 83.2 Lymphocytes % 7.9 Monocytes % 7.9 Eosinophils % 0.2 Basophils % 0.3 Nucleated RBC % (0.0-0.3) % 0.0 Absolute Neutrophils (1.2-6.7) 10^3/uL 5.39 Absolute Lymphocytes (1.2-3.4) 10^3/uL 0.51 L Absolute Monocytes (0.1-0.8) 10^3/uL 0.51 Absolute Eosinophils (0.0-0.7) 10^3/uL 0.01 Absolute Basophils (0.0-0.2) 10^3/uL 0.02 Sodium (136-145) mmol/L 140 Potassium (3.5-5.1) mmol/L 4.0 Chloride (98-107) mmol/L 104 Carbon Dioxide (21.0-32.0) mmol/L 26.0 Anion Gap (3-11) mmol/L 10.0 BUN (7-18) mg/dL 22 H Creatinine (0.70-1.30) mg/dL 1.6 H Estimated GFR/1.73 m2 (mL/min/1.73m2) 43.46 Glucose (74-106) mg/dL 139 H Calcium (8.5-10.1) mg/dL 8.4 L Magnesium (1.8-2.4) mg/dL 1.8 Total Bilirubin (0.2-1.0) mg/dL 0.4 AST (15-37) U/L 22 ALT (16-63) U/L 25 Alkaline Phosphatase (46-116) U/L 90 Troponin I (<or=60) ng/L < 50 Total Protein (6.4-8.2) g/dL 7.3 Albumin (3.4-5.0) g/dL 3.5 COVID-19 Source Cancelled SARS-CoV-2 (PCR) Cancelled Range/Units 11/25/21 12:05 WBC (4.4-10.8) 10^3/uL RBC (4.36-5.78) 10^6/uL Hgb (13.5-17.5) g/dL Hct (40.0-50.0) % MCV (80-95) fL MCH (27.0-33.0) pg MCHC (32.0-36.0) % RDW (11.8-14.1) % Plt Count (130-400) 10^3/uL MPV (8.0-11.0) fL Immature Gran % Neutrophils % Lymphocytes % Monocytes % Eosinophils % Basophils % Nucleated RBC % (0.0-0.3) % Absolute Neutrophils (1.2-6.7) 10^3/uL Absolute Lymphocytes (1.2-3.4) 10^3/uL Absolute Monocytes (0.1-0.8) 10^3/uL Absolute Eosinophils (0.0-0.7) 10^3/uL Absolute Basophils (0.0-0.2) 10^3/uL Sodium (136-145) mmol/L Potassium (3.5-5.1) mmol/L Chloride (98-107) mmol/L Carbon Dioxide (21.0-32.0) mmol/L Anion Gap (3-11) mmol/L BUN (7-18) mg/dL Creatinine (0.70-1.30) mg/dL Estimated GFR/1.73 m2 (mL/min/1.73m2) Glucose (74-106) mg/dL Calcium (8.5-10.1) mg/dL Magnesium (1.8-2.4) mg/dL Total Bilirubin (0.2-1.0) mg/dL AST (15-37) U/L ALT (16-63) U/L Alkaline Phosphatase (46-116) U/L Troponin I (<or=60) ng/L Total Protein (6.4-8.2) g/dL Albumin (3.4-5.0) g/dL COVID-19 Source Nasal/Nares SARS-CoV-2 (PCR) PAWSS Have you Been Recently Intoxicated or Drunk Within the Last 30 days?: No Have you Ever Experienced Previous Episodes of Alcohol Withdrawal?: No Have you ever Experienced Withdrawal Seizures?: No Have you ever Experienced Delirium Tremens(DT)s?: No Have you ever undergone Alcohol Rehabilitation Treatment (i.e, inpt ot outpatient treatment programs)?: No Have you ever Experienced Blackouts?: No Have you ever Combined Alcohol with other Downers within the last 90 days?: No Have you ever Combined Alcohol with any other Substance of Abuse during the last 90 days?: No Positive Blood Alcohol level on Presentation? [PCS.BAL]: No Evidence of Increased Autonomic Activity (i.e. HR>120, tremor, sweating, agitation, nausea)?: No Result: 0
[2021-11-25 12:29] LABS: D-Dimer 722 ng/mlFEU (<500)
--- NOTE | 2021-11-25 12:30 | DI.CT_ITS ---
Exam(s) CT CHEST PE CTA EXAM: CT CHEST PE CTA CLINICAL HISTORY: elevated d dimer, r/o PE. TECHNIQUE: Imaging Protocol: CT angiography of the chest was performed using pulmonary embolus jose armando col. Multi planar reconstructions were performed. CONTRAST MATERIAL: Intravenous: Omnipaque 350 Contrast volume: 100 cc COMPARISON: CT CT CHEST/ABD/PEL WO from 09/19/2021 CR XR CHEST 2V PA LATERAL from 11/25/2021 FINDINGS: CHEST: PULMONARY ARTERIES: There are no intraluminal filling defects to suggest acute pulmonary emboli. LUNGS: No confluent infiltrates nor pleural effusions. Mild increased markings which appear to be mo re related to less than full inspiratory effort than actual true disease.. There are no pleural effu sions. MEDIASTINUM: There is no hilar nor mediastinal adenopathy. Visualized thyroid unremarkable. CARDIAC: Heart size is upper normal. There is no pericardial effusion.Caliber of the thoracic aorta is within normal limits. No dissection. There is no significant shift of the interventricular septum . PARTIALLY VISUALIZED UPPERMOST ABDOMEN: No obvious findings OSSEOUS: T5 compression fracture appears unchanged. No new additional fractures evident.. IMPRESSION: 1. No evidence of acute pulmonary emboli. No evidence of pulmonary infarction.No pleural effusions. 2. No confluent infiltrates nor intrathoracic adenopathy. 3. No aortic dissection nor pericardial effusion. T5 compression fracture again noted. No new fractures evident. Called to ER RADIATION DOSE DELIVERED: 1,366.1mGy.cm Total DLP DATA REPOSITORY: All CT scans at this facility are submitted to the National Radiology Data Registry (NRDR) Dose Index Registry (DIR) with the [employer] (ACR). RADIATION OPTIMIZATION: All CT scans at this facility use at least one of these dose optimization te chniques: automated exposure control; mA and/or kV adjustment per patient size (includes targeted exa ms where dose is matched to clinical indication); or iterative reconstruction.
[2021-11-25 12:34] LABS: COVID-19 PCR POSITIVE (Negative)
[2021-11-25] MEDS: Normal Saline 1,000 ML 1000 ML IV ×2 (12:48→15:56)
--- NOTE | 2021-11-25 13:00 | DI.MRI_ITS ---
Exam(s) MR BRAIN WO EXAM: MR BRAIN WO CLINICAL HISTORY: weakness, confusion, r/o acute cva TECHNIQUE: Multiplanar multisequence MRI of the brain was performed. COMPARISON: CT CT HEAD WO from 11/25/[address] CHEST PE CTA from 11/25/2021 FINDINGS: CEREBRAL PARENCHYMA: There is no evidence of acute intracranial hemorrhage, mass effect, or shift of midline structures. There are no extra-axial fluid collections. No significant signal abnormalities in the cerebellar hemispheres nor within the rachael, midbrain, and thalami. There is abundant bilateral confluent periventricular signal abnormality consistent with ch ronic small vessel disease. There is also evidence of prior nonacute infarction in the right frontal lobe, consistent with what is seen on the CT scan. There is no restricted diffusion at this level n or elsewhere in the brain. There is no significant focal signal abnormality evident on diffusion imaging to suggest acute ischem ic event. Susceptibility weighted imaging reveals abundant abnormal blooming signal with innumerable microhemor rhages throughout the brain bilaterally as well as evidence of prior hemorrhage in the area of enceph alomalacia in the right frontal lobe. Also in the bilateral occipital parietal regions. In the left occipital parietal region there is a cyst since stripe of T2 hypointense signal abnormality which is isointense on T1. This is also consistent with small area prior prior hemorrhage. PITUITARY GLAND: No mass nor parasellar abnormality. No obvious abnormality in the cavernous sinuses. FLOW VOIDS: The expected flow void are noted. No evidence of obvious aneurysm nor obvious vascular ma lformation. PARANASAL SINUSES: Some mucosal thickening in the left maxillary sinus is noted. Right maxillary sin us is clear as are the other paranasal sinuses including the frontal sinuses and mastoid air cells. ORBITS: No obvious findings. IMPRESSION: Abundant chronic bilateral white matter small-vessel disease. Evidence of previous hemorrhagic infar ct in the right frontal lobe and left zwdipcpa-yxucpkis-oyiylcec region. No acute infarcts evident on diffusion imaging. However, there are numerous bilateral areas of micro hemorrhages on susceptibility weighted imaging See separate CT scan report See separate brain MRA report DATA REPOSITORY:
[2021-11-25 13:29] LABS: Bilirubin Negative (Negative); Blood Moderate (Negative); Clarity Sl Cloudy (Clear); Glucose Negative (Negative); Ketones Negative (Negative); Leukocyte Esterase Small (Negative); Nitrite Negative (Negative); Specific Gravity >= 1.030 (1.005-1.025); Urobilinogen 0.2 EU/dL (Up TO 0.2); pH 5.5 (5-8)
[2021-11-25 13:53] LABS: Bacteria Many HPF (Negative); C & S Indicated? Yes; Casts 0-2 Hyaline LPF (Negative); Crystals Negative HPF (Negative); Epithelial Cells Few HPF (Negative); Mucus Negative (Negative); WBC 20-50 HPF (0-5)
[2021-11-25] MEDS: Omnipaque 350 MG/ML 100 ML BTL IJ (14:24)
--- NOTE | 2021-11-25 15:15 | DI.MRI_ITS ---
Exam(s) MR ANGIO BRAIN WO EXAM: MR ANGIO BRAIN WO CLINICAL HISTORY: confusion, weakness, r/o acute cva TECHNIQUE: Performed on 1.5 aster unit with [id number] sequence. No IV contrast. Field of view is from the skull base up. Images somewhat degraded by motion artifact COMPARISON: MR MR BRAIN WO from 11/25/2021 FINDINGS: ANTERIOR CIRCULATION: Internal carotid arteries appear to be patent in the skull base-carotid canals as well as within the cavernous sinuses. The supraclinoid aspects are patent. Both A1 segments are patent as are the ante rior cerebral arteries. There is no aneurysm at the level of the anterior communicating artery. Both middle cerebral arteries are patent. In a no significant stenosis. No occlusion. No aneurysm in these vessels. POSTERIOR CIRCULATION: Basilar artery is formed at the skull base by contribution from both vertebral arteries. Basilar art camacho ascends in the midline with normal luminal diameter and no evidence of thrombosis nor dissection. . Distally gives off patent superior cerebellar arteries. Above this level the basilar artery termi nates as patent left posterior cerebral artery and a thin right posterior cerebral artery. The right posterior cerebral artery is also supplied by a thin posterior communicating artery on the right rudy e of the [id number]. Both posterior cerebral arteries appear patent. There is no evidence of aneurysm at the tip of the basilar artery nor elsewhere in the [id number]. IMPRESSION: 1. Less than optimal study due to motion but the main intracranial arteries appear patent, as describ ed above. 2. Also no aneurysms. See separate brain CT and MRI reports performed today.. DATA REPOSITORY:
--- NOTE | 2021-11-25 17:49 | W.PM.HP.N ---
Date of service: 11/25/21 Time of Service: 17:49 Assessment and Plan Assessment and plan (1) COVID-19: Status: Acute Assessment and plan: At a wedding on Sat - covid positive home test- very weak - treat symptoms, MAB, IVF, Weak, no cough, no NV - has had chronic diarrhea and is being worked up for that; appt with Surgery 11/26/21 (2) Generalized weakness: Status: Acute Assessment and plan: Weak, fluid - PT consult (3) UTI (urinary tract infection): Status: Acute Assessment and plan: Incontinence - + UA - cx pending - ceftriaxone 2 gm IV (4) Chronic diarrhea: Status: Chronic Assessment and plan: Months and months of diarrhea - seeing surgery 11/26 for work up Continue diphenoxylate-atropine if working (5) Diabetes: Status: Chronic Assessment and plan: Stable - continue home meds Metformin (6) Hypertension: Status: Chronic Assessment and plan: Continue home meds - lisinopril (7) Tachycardia: Status: Chronic Assessment and plan: Continue home meds - not tachycardic here - (8) Mild cognitive impairment: Status: Chronic Assessment and plan: Sig other reports he has mild memory issues; he might not remember what we discuss, she would like ot be included w a phone call (9) Right frontal lobe punctate hemorrhage: Status: Resolved Assessment and plan: History - resolved - CT per rad - potential for microbleeds (10) DVT prophylaxis: Status: Acute Assessment and plan: TEDS - enoxaparin contraindicated w potential micro bleeds in brain (11) Discharge planning issues: Status: Acute Assessment and plan: Home with sig other, no services History of Present Illness History of Present Illness Chief Complaint: Weakeness Narrative: This is a 66-year-old male patient with a history of diabetes, previous hemorrhagic stroke, hypertension, hyperlipidemia, obstructive sleep apnea and mild dementia presented to the [facility] emergency department for confusion which began last night, 11/24/2021, around 10:30 PM, and an episode of weakness today 11/25/2021.? No report of syncope, fall or trauma. He attended a large wedding on 11/20/21. He was feeling fatigued and took an at home COVID test yesterday which was positive. He was hypotensive on arrival with blood pressure 107/56.? He had no focal deficits on exam.? EKG on arrival notes a rate of 70, sinus, no STEMI nondiagnostic. Differential diagnosis includes expected course for COVID, dehydration, UTI, electrolyte abnormality, arrhythmia. In the ED -normal WBC.? Troponin negative.? CT head negative.? Chest x-ray negative.? MRI/MRA brain negative for acute stroke but per discussion with Dr. Yen, there are potential areas for hemorrhage on susceptibility imaging but no acute stroke or bleed noted. D dimer was above age-adjusted cutoff and patient was referred for CT chest which was negative for PE.? Per radiology staff, patient timing with contrast was delayed and they had to rescan with contrast which was discussed with Dr. Yen and cleared for second dose of contrast which was less than the initial dose.?Refer to radiology records for further information regarding this incident. Urinalysis notes findings consistent with UTI.? He was treated with Rocephin, he does have incontinence.? Urine culture sent. Considering patient's age and history, it was agreed he will be admitted for hydration, treated for UTI, antiviral treatment for COVID considering his multiple comorbidities and have PT evaluation tomorrow 11/26/2021. Review of Systems All systems reviewed & are unremarkable except as noted in HPI and below PFSH All Active Problems (Updated 11/25/21 @ 19:41 by Kim Noel NP) Hypertension (Chronic) Discharge planning issues (Acute) DVT prophylaxis (Acute) COVID-19 (Acute) UTI (urinary tract infection) (Acute) Generalized weakness (Acute) Chronic diarrhea (Chronic) Mild cognitive impairment (Chronic) Diabetes (Chronic) COVID-19 (Acute) 11/24/21 Vaccinated, boosted Umbilical hernia (Acute) Back pain (Acute) Diarrhea (Acute) Urinary frequency (Acute) Tachycardia (Chronic) MARTA (obstructive sleep apnea) (Chronic) Does not use CPAP Hyperlipidemia (Acute) Arthritis (Acute) Knees, lower back, shoulders Acute CVA (cerebrovascular accident) (Acute) 2018 and 2019 Chronic low back pain (Acute) Lumbar facet arthropathy (Acute) Lumbar spondylosis (Acute) without myelopathy or radiculopathy 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 Heart disease (Acute) Cerebral amyloid angiopathy (Acute) Generalized tonic-clonic seizure (Acute) Only 1 seizure ever after first CVA Diabetic peripheral neuropathy (Acute) Very mild Medical History (Updated 11/25/21 @ 19:41 by Kim Noel NP) Bilateral inguinal hernia 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 Status post appendectomy At age 13 Family History (Updated 08/13/21 @ 16:59 by Myriam Joshi) Mother Heart disease Dementia Father Heart disease Alzheimer disease Brother Alcohol use disorder Depression Heart disease Grandfather Heart disease Grandfather Personal history of malignant neoplasm LUNG Grandmother Essential hypertension Heart disease Grandmother Diabetes Essential hypertension Personal history of malignant neoplasm COLON Heart disease Social History (Updated 08/16/21 @ 19:09 by Myriam Joshi) Smoking/Tobacco Use Status: Former Tobacco Use Second Hand Exposure: Yes Smoking risk assessment performed?: Yes Alcohol Intake: current Alcohol Intake frequency: holidays/special occasions only Drug use: Never Substance use type: does not use Caregiver/Support person: No Household members: significant other Do you need help understanding health information?: Always Pets and animals: Yes Pets and animals: cat(s) and dog(s) Do you think of yourself as: straight/heterosexual Current gender identity: male What is your relationship status?: living with partner How often do you talk on the phone with friends or family?: three or more times per week How often do you get together with friends or relatives?: twice per week How often do you attend denominational or rastafarian services?: decline to answer Do you belong to any clubs or organized social groups?: no Panel score (0-1 are the most socially isolated patients): 2 What type of physical activity do you participate in: none Yaima/Sikhism: Advent Seatbelt use: always Drive intox or ride w/intox driver/guide: No Do you feel safe at home: Yes Do you feel safe in your relationship?: Yes Meds Allergies and Home Medications Allergies Allergy/AdvReac Type Severity Reaction Status Date / Time morphine Allergy Mild ITCHING Unverified 11/15/21 10:51 ciprofloxacin Allergy Unknown Unverified 11/15/21 10:51 codeine Allergy Unknown Unverified 11/15/21 10:51 dextromethorphan Allergy Unknown Unverified 11/15/21 10:51 [From Nuedexta] pollen extracts Allergy Unknown Unverified 11/15/21 10:51 quinidine [From Nuedexta] Allergy Unknown Unverified 11/15/21 10:51 Sulfa (Sulfonamide Allergy Unknown Unverified 11/15/21 10:51 Antibiotics) Home Medications Medication Instructions Recorded Confirmed Type atorvastatin 20 mg tablet (Lipitor) 20 mg PO HS #90 tab-caps 01/25/16 11/21/21 History cyclobenzaprine 10 mg tablet 10 mg PO BID PRN #30 tab-caps 01/25/16 11/21/21 History memantine 28 mg capsule 28 mg PO DAILY 08/14/21 11/21/21 History sprinkle,extended release 24hr bupropion HCl 100 mg tablet 100 mg PO DAILY 08/20/21 11/21/21 History divalproex 250 mg tablet,extended PO DAILY 08/20/21 11/21/21 History release 24 hr donepezil 10 mg tablet 10 mg PO BID #180 tabs 08/25/21 11/21/21 Rx flecainide 100 mg tablet 100 mg PO BID #180 tabs 08/25/21 11/21/21 Rx ipratropium bromide 21 mcg (0.03 2 spray intranasal TID #30 mL 09/27/21 11/21/21 Rx %) nasal spray lisinopril 2.5 mg tablet 2.5 mg PO DAILY #90 tabs 10/07/21 11/21/21 Rx bupropion HCl 150 mg tablet,12 hr 150 mg PO QHS #90 tabs 10/11/21 11/21/21 Rx sustained-release metformin 500 mg tablet,extended 500 mg PO DAILY #180 tabs 10/20/21 11/21/21 Rx release 24 hr metoprolol succinate 50 mg 50 mg PO DAILY #90 tabs 10/20/21 11/21/21 Rx tablet,extended release 24 hr diphenoxylate-atropine 2.5 1 tab PO TID PRN diarrhea #60 tabs 11/11/21 11/21/21 Rx mg-0.025 mg tablet (Lomotil) Exam Const General: cooperative Orientation: alert, awake and oriented x3 HENMT Head: normal to inspection Ears: hearing grossly normal bilaterally, external ears normal and TM's normal bilaterally General nose exam: external nose normal Face and sinus: normal facial exam Mouth: mucous membranes dry Teeth and gingiva: dentition normal Throat: posterior oropharynx normal Eyes General: appearance normal, both eyes and all related structures Eyelids: eyelids normal Pupils: PERRL EOM: EOM intact bilaterally Neck Neck: normal visual inspection Lymphatic: no lymphadenopathy noted Chest Chest: normal inspection of the chest Resp Effort & Inspection: normal respiratory effort and able to speak in complete sentences Auscultation: clear to auscultation bilaterally Cardio Rate: regular rate Rhythm: regular rhythm GI Inspection: normal to inspection Palpation: soft, not firm, no guarding, no hepatosplenomegaly, no masses and nontender Auscultation: normal bowel sounds Back/Spine/Pelvis Back: no CVA tenderness Skin General skin exam: no rashes or lesions noted Neuro General: patient alert and patient awake Cognition: normal cognition Speech: speech normal Gait: normal gait Motor: muscle tone normal throughout Sensory Exam: no sensory deficits noted Extrem General: normal to inspection, full ROM and capillary refill normal Psych Appearance: grossly normal Mental Status: mental status grossly normal Speech and Movement: speech and movement normal Affect: normal affect Thought Process: normal Results Labs Result diagrams: 11/25/21 11:42 11/25/21 11:42 Labs: Laboratory Results - last 24 hr 11/25/21 11/25/21 11/25/21 11:42 11:42 11:42 WBC 6.47 RBC 4.11 L Hgb 12.3 L Hct 37.3 L MCV 91 MCH 29.9 MCHC 33.0 RDW 13.0 Plt Count 198 MPV 9.8 Immature Gran % 0.5 Neutrophils % 83.2 Lymphocytes % 7.9 Monocytes % 7.9 Eosinophils % 0.2 Basophils % 0.3 Nucleated RBC % 0.0 Absolute Neutrophils 5.39 Absolute Lymphocytes 0.51 L Absolute Monocytes 0.51 Absolute Eosinophils 0.01 Absolute Basophils 0.02 D-Dimer Sodium 140 Potassium 4.0 Chloride 104 Carbon Dioxide 26.0 Anion Gap 10.0 BUN 22 H Creatinine 1.6 H Estimated GFR/1.73 m2 43.46 Glucose 139 H Calcium 8.4 L Magnesium 1.8 Total Bilirubin 0.4 AST 22 ALT 25 Alkaline Phosphatase 90 Troponin I < 50 Total Protein 7.3 Albumin 3.5 Urine Color Urine Clarity Urine pH Ur Specific [place] Urine Protein Urine Ketones Urine Blood Urine Nitrite Urine Bilirubin Urine Urobilinogen Ur Leukocyte Esterase Urine RBC Urine WBC Ur Epithelial Cells Urine Crystals Urine Bacteria Urine Casts Urine Mucus Ur Culture Indicated? Urine Glucose COVID-19 Source Cancelled SARS-CoV-2 (PCR) Cancelled 11/25/21 11/25/21 11/25/21 11:42 12:05 13:16 WBC RBC Hgb Hct MCV MCH MCHC RDW Plt Count MPV Immature Gran % Neutrophils % Lymphocytes % Monocytes % Eosinophils % Basophils % Nucleated RBC % Absolute Neutrophils Absolute Lymphocytes Absolute Monocytes Absolute Eosinophils Absolute Basophils D-Dimer 722 H Sodium Potassium Chloride Carbon Dioxide Anion Gap BUN Creatinine Estimated GFR/1.73 m2 Glucose Calcium Magnesium Total Bilirubin AST ALT Alkaline Phosphatase Troponin I Total Protein Albumin Urine Color Yellow Urine Clarity Sl Cloudy Urine pH 5.5 Ur Specific [place] >= 1.030 H Urine Protein 30 H Urine Ketones Negative Urine Blood Moderate H Urine Nitrite Negative Urine Bilirubin Negative Urine Urobilinogen 0.2 Ur Leukocyte Esterase Small H Urine RBC 10-20 H Urine WBC 20-50 H Ur Epithelial Cells Few Urine Crystals Negative Urine Bacteria Many Urine Casts 0-2 Hyaline Urine Mucus Negative Ur Culture Indicated? Yes Urine Glucose Negative COVID-19 Source Nasal/Nares SARS-CoV-2 (PCR) POSITIVE A* Last Vital Signs Pulse 65 11/25/21 14:10 Resp 20 11/25/21 12:15 BP 100/57 L 11/25/21 14:10 Pulse Ox 95 11/25/21 13:45 PAWSS Have you Been Recently Intoxicated or Drunk Within the Last 30 days?: No Have you Ever Experienced Previous Episodes of Alcohol Withdrawal?: No Have you ever Experienced Withdrawal Seizures?: No Have you ever Experienced Delirium Tremens(DT)s?: No Have you ever undergone Alcohol Rehabilitation Treatment (i.e, inpt ot outpatient treatment programs)?: No Have you ever Experienced Blackouts?: No Have you ever Combined Alcohol with other Downers within the last 90 days?: No Have you ever Combined Alcohol with any other Substance of Abuse during the last 90 days?: No Positive Blood Alcohol level on Presentation? [PCS.BAL]: No Evidence of Increased Autonomic Activity (i.e. HR>120, tremor, sweating, agitation, nausea)?: No Result: 0
[2021-11-25] MEDS: cefTRIAXone 2 GM/50 ML BAG IVPB (18:31)
[2021-11-25] MEDS: Lactated Ringers 1,000 ML 125 ML IV (21:35)
[2021-11-25] MEDS: Atorvastatin 20 MG TAB PO (21:36)
[2021-11-25] MEDS: Acetaminophen 325 MG TAB PO (21:36)
[2021-11-25] MEDS: buPROPion-CR 150 MG TABCR PO (22:05)
[2021-11-26 01:58] VITALS: BP 122/78; PULSE 66; RESP 14; TEMP 37; O2SAT 95
[2021-11-26] MEDS: Lactated Ringers 1,000 ML 125 ML IV (04:28)
[2021-11-26 04:30] VITALS: BP 130/75; PULSE 68; RESP 14; TEMP 37.4; O2SAT 97
[2021-11-26 04:34] VITALS: TEMP 37.4
[2021-11-26] MEDS: Acetaminophen 325 MG TAB PO (04:34)
[2021-11-26 06:30] LABS: Abs Immature Grans 0.03 10^3/uL (0.0-0.06); Absolute Basophil Count 0.01 10^3/uL (0.0-0.2); Absolute Lymphocyte Count 0.78 10^3/uL (1.2-3.4); Absolute Monocyte Count 0.56 10^3/uL (0.1-0.8); Absolute Neutrophil Count 4.72 10^3/uL (1.2-6.7); Basophils % 0.2; HGB 10.8 g/dL (13.5-17.5); Immature Grans % 0.5; Lymphocytes % 12.8; MCH 29.5 pg (27.0-33.0); MCHC 32.7 % (32.0-36.0); MCV 90 fL (80-95); MPV 9.6 fL (8.0-11.0); Monocytes % 9.2; Neutrophils % 77.3; Platelet Count 153 10^3/uL (130-400); RBC 3.66 10^6/uL (4.36-5.78); RDW 13.1 % (11.8-14.1); RDW-SD 43.6 fL
[2021-11-26 06:43] LABS: Anion Gap 9.7 mmol/L (3-11); BUN 18 mg/dL (7-18); CO2 24.3 mmol/L (21.0-32.0); CREATININE 1.2 mg/dL (0.70-1.30); Calcium 7.9 mg/dL (8.5-10.1); Chloride 107 mmol/L (98-107); Glucose 98 mg/dL (74-106); Magnesium 1.6 mg/dL (1.8-2.4); Potassium 3.8 mmol/L (3.5-5.1); Sodium 141 mmol/L (136-145)
[2021-11-26 07:03] VITALS: PULSE 63
[2021-11-26] MEDS: Metoprolol CR 50 MG TABCR PO (08:28)
[2021-11-26] MEDS: metFORMIN C.R. 500 MG TABCR PO (08:28)
[2021-11-26] MEDS: Donepezil 5 MG TAB 10 MG PO (08:28)
[2021-11-26] MEDS: Lisinopril 5 MG TAB 2.5 MG PO (08:28)
[2021-11-26 08:30] VITALS: BP 122/72; PULSE 65; RESP 18; TEMP 36.8; O2SAT 96
--- NOTE | 2021-11-26 10:41 | W.PM.DS.N ---
Date of service: 11/26/21 Time of Service: 10:41 DS: Diagnosis Discharge Diagnosis (1) COVID-19: Status: Acute (2) Generalized weakness: Status: Acute (3) UTI (urinary tract infection): Status: Acute (4) Chronic diarrhea: Status: Chronic (5) Diabetes: Status: Chronic (6) Hypertension: Status: Chronic (7) Tachycardia: Status: Chronic (8) Mild cognitive impairment: Status: Chronic (9) Right frontal lobe punctate hemorrhage: Status: Resolved Discharge Plan Disposition Patient Disposition: HOME Condition: Stable Discharge Details Reason For Visit: Covid-19 Admit Date/Time: 11/25/21 17:31 Admit Provider: Bebeto Guzman Attending Provider: Bebeto Guzman Primary Care Provider: Maynor Hunt Hospital Course Hospital Course: This is a 66-year-old male patient with a history of diabetes, previous hemorrhagic stroke, hypertension, hyperlipidemia, obstructive sleep apnea and mild dementia who presented to the [facility] emergency department for confusion and an episode of weakness.? No report of syncope, fall or trauma. He attended a large wedding on 11/20/21.? He was feeling fatigued and took an at home COVID test yesterday which was positive.? His work up included MRI brain, negative for acute stroke, CTA chest negative for PE, labs unremarkable, Urinalysis findings consistent with UTI.? He was placed on Rocephin, he does have chronic incontinence.? Urine culture sent and ID pending, it is growing greater than 100k gram negative. He was referred to observation for hydration, treatment for UTI, He received monoclonal antibodies. Overnight he remained hemodynamically stable with no oxygen requirements. He was eating and drinking and safely reambulating. He feels much improved and ready for discharge to home. He is being discharged with no new services. discharge discussed with DR Guzman. Home Meds and New Rx's Prescriptions: New cefpodoxime 200 mg tablet 200 mg PO BID Qty: 10 0RF Rx Instructions: must administer with a meal/food Continued divalproex 250 mg tablet extended release 24 hr 250 mg PO DAILY bupropion HCl 100 mg tablet 100 mg PO DAILY ipratropium bromide 21 mcg (0.03 %) spray,non-aerosol 2 spray intranasal TID Qty: 30 3RF Rx Instructions: administer into each nostril metformin 500 mg tablet extended release 24 hr 500 mg PO DAILY Qty: 180 3RF diphenoxylate-atropine [Lomotil] 2.5-0.025 mg tablet 1 tab PO TID PRN (Reason: diarrhea) Qty: 60 0RF cyclobenzaprine 10 MG tablet 10 mg PO BID PRNQty: 30 atorvastatin [Lipitor] 20 MG tablet 20 mg PO HS Qty: 90 memantine 28 mg capsule,sprinkle,ER 24hr 28 mg PO DAILY flecainide 100 mg tablet 100 mg PO BID Qty: 180 3RF donepezil 10 mg tablet 10 mg PO BID Qty: 180 3RF lisinopril 2.5 mg tablet 2.5 mg PO DAILY Qty: 90 3RF bupropion HCl 150 mg tablet sustained-release 12 hr 150 mg PO QHS Qty: 90 3RF metoprolol succinate 50 mg tablet extended release 24 hr 50 mg PO DAILY Qty: 90 3RF Discharge Instructions Instructions: COVID-19 (Coronavirus Disease 2019) (DC) Stand Alone Forms: Nursing Discharge Form Referrals: Maynor Hunt FILM PROCESSOR [Primary Care Provider] - 12/03/21 11:40 am Activity:: Activity as Tolerated Equipment/Supplies:: No Equipment Needed Diet:: As Tolerated Discharge Orders Discharge Orders: Discharge Order (Routine); Ordered 11/26/21 Ordered By: Rashida Valerio Discharge Data Discharge Date/Time-TO BE ENTERED AT DEPARTURE: 11/26/21 13:56 DS: Summary Time Spent with Patient providing and/or coordinating discharge services: Less than 30 minutes Status at Discharge Functional status at discharge: independent ambulation Overall status at discharge: patient is not back to baseline Mental Status: mental status grossly normal Speech and Movement: speech and movement normal Mood: congruent mood Affect: normal affect Exam Narrative Exam Narrative: alert and oriented to person place and situation talking in full sentences, no audible wheezes Psych Mental Status: mental status grossly normal Speech and Movement: speech and movement normal Mood: congruent mood Affect: normal affect DS: Data Vitals/I&O Vitals and I&O: Vital Signs Temperature 36.8 C 11/26/21 08:30 Temperature Source Tympanic 11/26/21 08:30 Pulse 65 11/26/21 08:30 Pulse Rhythm Regular 11/26/21 09:22 Respiratory Rate 18 11/26/21 08:30 Respiratory Effort Non-Labored 11/26/21 09:22 Respiratory Depth Normal 11/26/21 09:22 Respiratory Pattern Normal 11/26/21 09:22 Blood Pressure 122/72 11/26/21 08:30 Blood Pressure Position Sitting 11/25/21 11:13 Pulse Oximetry 96 11/26/21 08:30 Oxygen Delivery Method Room Air 11/26/21 08:30 Oxygen Flow Rate 0 11/26/21 08:30 Pain Level 0 11/26/21 08:30 Intake & Output 11/25/21 11/25/21 11/26/21 11:59 23:59 11:59 Intake Total 2009 1500.417 / 1500.417 Output Total 800 / 800 Balance 2009 700.417 / 700.417 Weight 107.048 kg 102.421 kg Intake: IV 2009 860.417 / 860.417 Oral 640 / 640 Output: Urine 800 / 800 Other: Urine Color Yellow Urine Appearance Clear Clear Comment unmeasured as Pt voided on floor/attempting to void in urinal. Voiding Methods Urinal Data Completed and Pending Labs on day of discharge: Labs from last 24 hours 11/26/21 11/26/21 11/25/21 06:08 06:08 13:16 WBC 6.10 RBC 3.66 L Hgb 10.8 L Hct 33.0 L MCV 90 MCH 29.5 MCHC 32.7 RDW 13.1 Plt Count 153 MPV 9.6 Immature Gran % 0.5 Neutrophils % 77.3 Lymphocytes % 12.8 Monocytes % 9.2 Eosinophils % 0.0 Basophils % 0.2 Nucleated RBC % 0.0 Absolute Neutrophils 4.72 Absolute Lymphocytes 0.78 L Absolute Monocytes 0.56 Absolute Eosinophils 0.00 Absolute Basophils 0.01 D-Dimer Sodium 141 Potassium 3.8 Chloride 107 Carbon Dioxide 24.3 Anion Gap 9.7 BUN 18 Creatinine 1.2 Estimated GFR/1.73 m2 >= 60.00 Glucose 98 Calcium 7.9 L Magnesium 1.6 L Total Bilirubin AST ALT Alkaline Phosphatase Troponin I Total Protein Albumin Urine Color Yellow Urine Clarity Sl Cloudy Urine pH 5.5 Ur Specific [place] >= 1.030 H Urine Protein 30 H Urine Ketones Negative Urine Blood Moderate H Urine Nitrite Negative Urine Bilirubin Negative Urine Urobilinogen 0.2 Ur Leukocyte Esterase Small H Urine RBC 10-20 H Urine WBC 20-50 H Ur Epithelial Cells Few Urine Crystals Negative Urine Bacteria Many Urine Casts 0-2 Hyaline Urine Mucus Negative Ur Culture Indicated? Yes Urine Glucose Negative COVID-19 Source SARS-CoV-2 (PCR) 11/25/21 11/25/21 11/25/21 12:05 11:42 11:42 WBC RBC Hgb Hct MCV MCH MCHC RDW Plt Count MPV Immature Gran % Neutrophils % Lymphocytes % Monocytes % Eosinophils % Basophils % Nucleated RBC % Absolute Neutrophils Absolute Lymphocytes Absolute Monocytes Absolute Eosinophils Absolute Basophils D-Dimer 722 H Sodium Potassium Chloride Carbon Dioxide Anion Gap BUN Creatinine Estimated GFR/1.73 m2 Glucose Calcium Magnesium Total Bilirubin AST ALT Alkaline Phosphatase Troponin I Total Protein Albumin Urine Color Urine Clarity Urine pH Ur Specific [place] Urine Protein Urine Ketones Urine Blood Urine Nitrite Urine Bilirubin Urine Urobilinogen Ur Leukocyte Esterase Urine RBC Urine WBC Ur Epithelial Cells Urine Crystals Urine Bacteria Urine Casts Urine Mucus Ur Culture Indicated? Urine Glucose COVID-19 Source Nasal/Nares Cancelled SARS-CoV-2 (PCR) POSITIVE A* Cancelled 11/25/21 11/25/21 11:42 11:42 WBC 6.47 RBC 4.11 L Hgb 12.3 L Hct 37.3 L MCV 91 MCH 29.9 MCHC 33.0 RDW 13.0 Plt Count 198 MPV 9.8 Immature Gran % 0.5 Neutrophils % 83.2 Lymphocytes % 7.9 Monocytes % 7.9 Eosinophils % 0.2 Basophils % 0.3 Nucleated RBC % 0.0 Absolute Neutrophils 5.39 Absolute Lymphocytes 0.51 L Absolute Monocytes 0.51 Absolute Eosinophils 0.01 Absolute Basophils 0.02 D-Dimer Sodium 140 Potassium 4.0 Chloride 104 Carbon Dioxide 26.0 Anion Gap 10.0 BUN 22 H Creatinine 1.6 H Estimated GFR/1.73 m2 43.46 Glucose 139 H Calcium 8.4 L Magnesium 1.8 Total Bilirubin 0.4 AST 22 ALT 25 Alkaline Phosphatase 90 Troponin I < 50 Total Protein 7.3 Albumin 3.5 Urine Color Urine Clarity Urine pH Ur Specific [place] Urine Protein Urine Ketones Urine Blood Urine Nitrite Urine Bilirubin Urine Urobilinogen Ur Leukocyte Esterase Urine RBC Urine WBC Ur Epithelial Cells Urine Crystals Urine Bacteria Urine Casts Urine Mucus Ur Culture Indicated? Urine Glucose COVID-19 Source SARS-CoV-2 (PCR) Preliminary micro results at discharge 11/25/21 13:16 Urine Culture - Preliminary Urine - Reflex from Ua Gram Negative Hayes PFSH All Active Problems (Updated 11/25/21 @ 19:41 by Kim Noel NP) Hypertension (Chronic) Discharge planning issues (Acute) DVT prophylaxis (Acute) COVID-19 (Acute) UTI (urinary tract infection) (Acute) Generalized weakness (Acute) Chronic diarrhea (Chronic) Mild cognitive impairment (Chronic) Diabetes (Chronic) COVID-19 (Acute) 11/24/21 Vaccinated, boosted Umbilical hernia (Acute) Back pain (Acute) Diarrhea (Acute) Urinary frequency (Acute) Tachycardia (Chronic) MARTA (obstructive sleep apnea) (Chronic) Does not use CPAP Hyperlipidemia (Acute) Arthritis (Acute) Knees, lower back, shoulders Acute CVA (cerebrovascular accident) (Acute) 2018 and 2019 Chronic low back pain (Acute) Lumbar facet arthropathy (Acute) Lumbar spondylosis (Acute) without myelopathy or radiculopathy 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 Heart disease (Acute) Cerebral amyloid angiopathy (Acute) Generalized tonic-clonic seizure (Acute) Only 1 seizure ever after first CVA Diabetic peripheral neuropathy (Acute) Very mild Medical History (Updated 11/25/21 @ 19:41 by Kim Noel NP) Bilateral inguinal hernia 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 Status post appendectomy At age 13 Family History (Updated 08/13/21 @ 16:59 by Myriam Joshi) Mother Heart disease Dementia Father Heart disease Alzheimer disease Brother Alcohol use disorder Depression Heart disease Grandfather Heart disease Grandfather Personal history of malignant neoplasm LUNG Grandmother Essential hypertension Heart disease Grandmother Diabetes Essential hypertension Personal history of malignant neoplasm COLON Heart disease Social History (Updated 08/16/21 @ 19:09 by Myriam Joshi) Smoking/Tobacco Use Status: Former Tobacco Use Second Hand Exposure: Yes Smoking risk assessment performed?: Yes Alcohol Intake: current Alcohol Intake frequency: holidays/special occasions only Drug use: Never Substance use type: does not use Caregiver/Support person: No Household members: significant other Do you need help understanding health information?: Always Pets and animals: Yes Pets and animals: cat(s) and dog(s) Do you think of yourself as: straight/heterosexual Current gender identity: male What is your relationship status?: living with partner How often do you talk on the phone with friends or family?: three or more times per week How often do you get together with friends or relatives?: twice per week How often do you attend rastafarian or confucianist services?: decline to answer Do you belong to any clubs or organized social groups?: no Panel score (0-1 are the most socially isolated patients): 2 What type of physical activity do you participate in: none Yaima/Christian: Bahai Seatbelt use: always Drive intox or ride w/intox drive away driver: No Do you feel safe at home: Yes Do you feel safe in your relationship?: Yes
--- NOTE | 2021-11-26 14:33 | PT.INNT ---
Date of service: 11/26/21 Time of Service: 14:33 PT Notes Visit Reasons: Covid-19 Patient was cleared for discharge by hospitalist and left the hospital at 13:56 PM. No skilled services were provided for this admission. Thank you for the opportunity to participate in the care of this patient. Alfreda Hughes PT, DPT, CLT [facility] [place], [place]
== END 2021-11-26 13:56 | disposition home or self-care (01) ==
LOC: ER 18:19 → MS 11-26 07:53
PROVIDERS: Nurse Practitioner Family; Admitting Provider Family Medicine; Emergency Provider Physician Assistant; PCP Nurse Practitioner Family; Visit Provider Family Medicine
DX: U07.1 COVID-19 (principal); N39.0 Urinary tract infection, site not specified; I67.89 Other cerebrovascular disease; R53.1 Weakness; K52.9 Noninfective gastroenteritis and colitis, unspecified; Z79.84 Long term (current) use of oral hypoglycemic drugs; Z86.73 Personal history of transient ischemic attack (TIA), and cerebral infarction without residual deficits; I10 Essential (primary) hypertension; E78.5 Hyperlipidemia, unspecified; G47.33 Obstructive sleep apnea (adult) (pediatric); F03.90 Unspecified dementia, unspecified severity, without behavioral disturbance, psychotic disturbance, mood disturbance, and anxiety; I95.9 Hypotension, unspecified; R32 Unspecified urinary incontinence; R00.0 Tachycardia, unspecified; M54.50 Low back pain, unspecified; G89.29 Other chronic pain; E11.42 Type 2 diabetes mellitus with diabetic polyneuropathy; B96.1 Klebsiella pneumoniae [K. pneumoniae] as the cause of diseases classified elsewhere
CPT/HCPCS: 36415; 36416; 70544; 71275; 80048; 80053; 82962; 87077; 87635; 90471; 93005; 96360; 96361; 96365; 96375; 99285; Q0222; 70450; 70551; 71046; 81003; 81015; 83735; 84484; 85025; 85379; 87086; 87186; 93010; 99217; 99219; G0378; J3490

== ENCOUNTER 2021-11-30 11:38 | Emergency (ER) | payer MEDICARE, BC, SELFPAY ==
[2021-11-30 11:44] VITALS: BP 139/88; PULSE 67; RESP 18; TEMP 36.8; O2SAT 99
--- OUTSIDE RECORDS SUMMARY | 2021-11-30 11:45 | XMS_ITS | Encounter Summary ---
:1955 Author Organization [facility] [place] [address] Care Team Providers Name Role Phone Neal Breen MD Primary Care Provider [phone] Encounter Details Date Type Department Care Team Description 06/02/2021 Hospital Encounter Diagnostic Imaging - Nuria Flores MD [address] [place] [address] [place], [place] [phone] (Wo rk) Social History Tobacco Use Types Packs/Day Years Used Date Former Smoker Cigarettes Quit: 04/16/19 89 Smokeless Tobacco: Former User Q uit: 2005 Alcohol Use Standard Drinks/Week Comments Yes 0 (1 standard drink = 0.6 oz pure alcoho l) occasional beer (very rare) Alcohol Habits Answer Date Recorded How often do you have a drink containing Monthly or less 04/22/2020 alcohol? How many drinks containing alcohol do you 1 or 2 04/22/2020 have on a typical day when you are drinking? How often do you have six or more drinks on Not asked one occasion? Comment: occasional beer (very rare) 09/20/2020 Sex Assigned at Date Recorded Not on file COVID-19 Exposure Response Date Recorded In the last month, have you been in contact with No / Unsure 06/02/2021 9:01 AM EST someone who was confirmed or suspected to have Coronavirus / COVID-19? documented as of this encounter Functional Status Functional Status Response Date of Assessment Is the person deaf or does he/she have serious difficulty No 09/16/2017 hearing? Is this person blind or does he/she have serious No 09/16/2017 difficulty seeing even when wearing glasses? Does this person have serious difficulty walking or No 09/16/2017 climbing stairs? (5 years old or older) Does this person have difficulty dressing or bathing? (5 No 09/16/2017 years old or older) Because of a physical, mental, or emotional condition, No 09/16/2017 does this person have difficulty doing errands alone such as visiting a doctor's office or shopping? (15 years old and older) Cognitive Status Response Date of Assessment Because of a physical, mental, or emotional condition, No 09/16/2017 does this person have serious difficulty concentrating, remembering, or making decisions? (5 years old or older) documented as of this encounter Medications at Time of Discharge Medication Sig Dispensed Refills Start Date End Date donepezil (ARICEPT) 10 MG Take 10 mg by 0 tablet mouth in the morning and at bedtime. flecainide (TAMBOCOR) 100 TAKE 1 TABLET(100 180 tablet 3 MG tablet MG) BY MOUTH TWICE DAILY ipratropium (ATROVENT) 21 USE 2 SPRAYS IN 30 mL 1 12/28 mcg (0.03 %) nasal spray EACH NOSTRIL THREE TIMES DAILY lisinopriL Take 1 tablet (2.5 90 tablet 5 09/16/2020 (PRINIVIL,ZESTRIL) 2.5 MG mg total) by mouth tablet daily. memantine 28 mg CSpX Take 28 mg by 0 mouth daily. metFORMIN ER TAKE 1 TABLET(500 180 tablet 5 03/30/2021 (GLUCOPHAGE-XR) 500 MG MG) BY MOUTH TWICE extended release tablet DAILY WITH MEALS metoPROLOL succinate 1 tab PO daily 180 tablet 5 09/16/2020 (TOPROL-XL) 50 MG 24 hr tablet atorvastatin (LIPITOR) 20 TAKE 1 TABLET(20 90 tablet 3 05/202009/14/2021 MG tablet MG) BY MOUTH DAILY buPROPion SR (WELLBUTRIN Take 100 mg by 0 06/16/2021 SR) 100 MG 12 hr tablet mouth 2 times daily. 100 MG IN AM, 150 MG IN EVENING cyclobenzaprine (FLEXERIL) Take 1 tablet (10 20 tablet 0 07/08/2021 10 MG tablet mg total) by mouth 2 (two) times daily as needed for up to 10 days. naproxen (NAPROSYN) 500 MG Take 1 tablet (500 180 tablet 5 0 06/30/2020 07/08/2021 tablet mg total) by mouth 2 times daily. PRN documented as of this encounter Plan of Treatment Not on filedocumented as of this encounter Procedures Procedure Name Priority Date/Time Associated Diagnosis Comme nts FL FLUOROSCOPY BY Routine 06/02/2021 9:52 AM Arthropathy of Re sults for this NON RAD < 1 HOUR EST lumbar facet joint proce dure are in the results section. documented in this encounter Results FL FLUOROSCOPY BY NON RAD < 1 HOUR (06/02/2021 9:52 AM EST) Specimen (Source) Anatomical Location Collection Method / Collectio n Time Received Time / Laterality Volume Narrative [facility] - 06/02/2021 9:52 AM EST This exam was automatically finalized an d will not be resulted. Stanford Flores MD IMG FLUOROSCOPY ORDERABLES Performing Organization Address City/State/ZIP Code Phon e Number [facility] documented in this encounter Visit Diagnoses Not on filedocumented in this encounter Care Teams Residential Direct Support Professional Relationship Specialty Start Date End Date Neal Breen MD PCP - General Family Medicine 07/31/18 07/14/[address] [place] [address] documented as of this encounter
--- OUTSIDE RECORDS SUMMARY | 2021-11-30 11:45 | XMS_ITS | Encounter Summary ---
:1955 Author Organization [facility] [place] [address] Care Team Providers Name Role Phone Neal Breen MD Primary Care Provider [phone] Encounter Details Date Type Department Care Team Description 03/23/2021 Travel Social History Tobacco Use Types Packs/Day Years Used Date Former Smoker Cigarettes Quit: 04/16/19 89 Smokeless Tobacco: Former User Q uit: 2004 Alcohol Use Standard Drinks/Week Comments Yes 0 [...] been in contact with No / Unsure 03/23/2021 11:04 AM EST someone who was confirmed or [...] or older) documented as of this encounter Plan of Treatment Not on filedocumented as of this encounter Visit Diagnoses Not on filedocumented in this encounter Care Teams Photographic Artist Relationship Specialty Start Date End Date Neal Breen MD PCP - General Family Medicine 07/31/18 07/14/[address] [place] [address] documented as of this encounter
--- OUTSIDE RECORDS SUMMARY | 2021-11-30 11:45 | XMS_ITS | Encounter Summary ---
:1955 Author Organization [facility] [place] [address] Care Team Providers Name Role Phone Neal Breen MD Primary Care Provider [phone] Encounter Details Date Type Department Care Team Description 03/16/2021 Travel Social History Tobacco Use Types Packs/Day [...] been in contact with No / Unsure 03/16/2021 3:31 PM EST someone who was confirmed or suspected [...] on filedocumented in this encounter Care Teams Pulp Beater Relationship Specialty Start Date End Date Neal Breen MD PCP - General Family Medicine 07/31/18 07/14/[address] [place] [address] documented as of this encounter
--- OUTSIDE RECORDS SUMMARY | 2021-11-30 11:45 | XMS_ITS | Encounter Summary ---
:1955 Author Organization [facility] [place] [address] Care Team Providers Name Role Phone Neal Breen MD Primary Care Provider [phone] Reason for Referral Consultation (Emergency) - Closed Specialty Diagnoses / Procedures Referred By Contact Refer red To Contact Pain Medicine Diagnoses Arthropathy of lumbar facet joint [id number] Procedures ME INJ DX/THER AGNT PARAVERT FACET JOINT,IMG GUIDE,LUMBAR/SAC, 1ST LEVEL ME INJ DX/THER AGNT PARAVERT FACET JOINT,IMG GUIDE,LUMBAR/SAC, 2ND LEVEL Pain Provider: Stanford Flores M.D MEDICAL [address], Procedure: MBB Lumbar right L4/5 and L5/S1 #2/2, [address] ([address] 2nd level), if B/L=50 modifier [place]ticoagulation: [place] [address] [address] [place], [place] [address] Phone: Fax: Referral ID Status Reason Start Date Expiration Date Visits V isits Requested Authorized [id number] Closed Specialty 03/30/2021 03/30/2022 1 1 Services Required Encounter Details Date Type Department Care Team Description 03/30/2021 Orders Only Pain Management - Julissa Rodarte Arthr opathy of lumbar Premier facet joint (Primary [address] [place]) [place] [address] Social History Tobacco Use Types Packs/Day Years [...] been in contact with No / Unsure 03/29/2021 3:42 PM EST someone who was confirmed or [...] filedocumented as of this encounter Visit Diagnoses Diagnosis Arthropathy of lumbar facet joint - Prim avelino Spondylosis of unspecified site without mention of myelopathy documented in this encounter Care Teams Physician Support Coordinator Relationship Specialty Start Date End Date Neal Breen MD PCP - General Family Medicine 07/31/18 07/14/[address] [place] [id number] documented as of this encounter
--- OUTSIDE RECORDS SUMMARY | 2021-11-30 11:45 | XMS_ITS | Encounter Summary ---
:1955 Author Organization [facility] [place] [address] Care Team Providers Name Role Phone Neal Breen MD Primary Care Provider [phone] Reason for Visit Reason Comments Procedure Office Visits (Emergency) - Closed Specialty Diagnoses / Procedures Referred By Contact Refer red To Contact Pain Medicine Diagnoses Arthropathy of lumbar facet joint Sathish [facility] Pain Procedures MEDICAL [address] [address] Phone: Fax: Referral ID Status Reason Start Date Expiration Date Visits V isits Requested Authorized [id number] Closed Specialty 04/29/2021 04/29/2022 1 1 Services Required Encounter Details Date Type Department Care Team Description 06/02/2021 Procedure visit Pain Management Stanford Flores Arthro tram of lumbar facet joint (Primary Dx); Procedures - MD Jose Chronic right-sided low back pain withou t sciatica [id number] [place] [address] [place] [address] Social History Tobacco Use Types Packs/Day Years [...] / COVID-19? documented as of this encounter Last Filed Vital Signs Vital Sign Reading Time Taken Comments Blood Pressure 126/78 06/02/2021 9:53 AM EST Pulse 54 06/02/2021 9:53 AM EST Temperature 36.6 ??C (97.8 ??F) 06/02/2021 9:08 AM EST Respiratory Rate 20 06/02/2021 9:08 AM EST Oxygen Saturation 97% 06/02/2021 9:53 AM EST Inhaled Oxygen Concentration - - Weight - - Height - - Body Mass Index - - documented in this encounter Functional Status Functional Status Response [...] or older) documented as of this encounter Patient Instructions Patient InstructionsChar Jackson RN - 06/02/2021 9:00 AM EST Pain Center Procedural Discharge Instructions For Patient [address] [place] [address] [phone] Thank you for choosing [facility] for the management of your chronic pain. Please followthe guidelines and discharge instructions noted below for the first 24 hours following your procedure. Rest on the day of your procedure. You may return to normal activities the next day. Do not use appliances or equipment that could be dangerous (like power tools, stove, lawnmowers, etc.) You may be dizzy at times. Walk slowly and take your time. Sudden changes of position can cause nausea. You may have temporary discomfort from your procedure today and may feel weak. This is normal. If you have discomfort at an injection site, you may apply an ice pack for 24 hours. The chance of infection is minimal. Report any signs of infection such as redness, swelling, high fever, or warmth at the site of the injection, increased pain at or around the injection site, loss of bladder or bowel control, numbness in the buttocks, severe constipation, or inability to urinate. Restart your anticoagulant medication tomorrow. Contact the Pain Center if you have any major problems. . For emergencies, contact 911 or go to your nearest emergency room. 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 This was confirmed by provocative testing and pain relief by the diagnostic block of these nerves LOCATION: [facility] SURGEON: Stanford Flores MD ASSISTANTS: None ANESTHESIA: Local POSITION: Prone DESCRIPTION OF OPERATIVE PROCEDURE: Informed consent was obtained. The patient was brought to the Procedure Room and positioned to comfort and optimal positioning for procedure. Time-out was conducted with all members of the care team. Standard ASA monitors were placed. Standard prep and drape were performed. The appropriate level of the lumbar spine was identified under fluoroscopy. Sites for needle insertion were identified and marked on the skin with a sterile marker. Local anesthesia was administered. A145 mm,18 gauge, curved radiofrequency needle with a 10 mm active tip was guided to the superior junc tion of the transverse processes (or sacral ala) and superior articular processes of each level treated. Needle location was verified in AP/LAT projections. Sensory stimulation was performed at each level at 50 Hz with concordant symptoms noted at <0.3 volts at all levels. Motor stimulation at 2 Hz was performed with no evidence of distal muscle contraction at each level, but excellent multifidus contraction at >3x sensory threshold. Prior to lesioning 1 mL of 2% lidocaine was injected at eachlevel. The patient then received one 90 second lesioning cycle at 80 degrees centigrade at each level. The probe was then allowed to cool prior to withdrawing. A solution of 0.5% bupivacaine without steroid was then injected as the needle was withdrawn to provide deep and superficial anesthesia. The identical procedure was repeated at each site treated. The surgical site preparation was washed off of the patient. Band-Aids were applied. The patient wasbrought to the recovery area. The patient did very well and the recovered uneventfully in the recovery area. Procedure results were discussed. Standard discharge instructions were given to the patient. The patient knows how to contact the clinic should they have any questions or problems. Our clinic nurse will call the patient forfollow-up tomorrow. Preprocedural pain score was 2/10 Post procedural pain score was 2/10 COMPLICATIONS: None EBL: minimal PLAN: f/u with MINUTE CLERK FOR BASIC TRAFFIC Electronically signed by: Stanford Flores MD 06/02/21 1004 documented in this encounter Plan of Treatment Not on [...] ISITEPOW documented in this encounter Visit Diagnoses Diagnosis Arthropathy of lumbar facet joint - Prim avelino Spondylosis of unspecified site without mention of myelopathy Chronic right-sided low back pain withou t sciatica documented in this encounter Care Teams Snuff Grinder And Screener Relationship Specialty Start Date End Date Neal Breen MD PCP - General Family Medicine 07/31/18 07/14/[address] [place] [address] documented as of this encounter
--- OUTSIDE RECORDS SUMMARY | 2021-11-30 11:45 | XMS_ITS | Encounter Summary ---
:1955 Author Organization [facility] [place] [address] Care Team Providers Name Role Phone Neal Breen MD Primary Care Provider [phone] Reason for Referral Consultation (Emergency) - Pending Review Specialty Diagnoses / Procedures Referred By Contact Refer red To Contact Pain Medicine Diagnoses Arthropathy of lumbar facet joint Chronic right-sided low back pain without sciatica Stanford Flores [facility] Pain Procedures [address] [place] [address] [place], [place] [address] Referral ID Status Reason Start Expiration Visits Visits Date Date Requested Authorized [id number] Pending Specialty 04/28/2021 04/28/2022 1 1 Review Services Required Reason for Visit Reason Comments Procedure Consultation (Emergency) - Closed Specialty Diagnoses / Procedures Referred By Contact Refer red To Contact Pain Medicine Diagnoses Arthropathy of lumbar facet joint [facility] Procedures [place] INJ DX/THER AGNT PARAVERT FACET JOINT,IMG GUIDE,LUMBAR/SAC, 1ST LEVEL [place] INJ DX/THER AGNT PARAVERT FACET JOINT,IMG GUIDE,LUMBAR/SAC, 2ND LEVEL Pain Provider: Stanford Flores M.D [address], Procedure: MBB Lumbar right L4/5 and L5/S1 #2/2, [address] ([address] 2nd level), if B/L=50 modifier Anticoagulation: [place] [address] [address] [place], [place] [address] Phone: Fax: Referral ID Status Reason Start Date Expiration Date Visits V isits Requested Authorized [id number] Closed Specialty 03/30/2021 03/30/2022 1 1 Services Required Encounter Details Date Type Department Care Team Description 04/28/2021 Procedure visit Pain Management Stanford Flores right-sided low back pain without sciatica (Primary Dx); Procedures - MD Jose Arthropathy of lumbar facet joint [facility] [address] [place] [address] LYDIA MARTINEZ, [facility] Social History Tobacco Use Types Packs/Day Years [...] been in contact with No / Unsure 04/28/2021 10:12 AM EST someone who was confirmed or suspected to have Coronavirus / COVID-19? documented as of this encounter Last Filed Vital Signs Vital Sign Reading Time Taken Comments Blood Pressure 97/61 04/28/2021 12:10 PM EST Pulse 59 04/28/2021 12:10 PM EST Temperature 36.3 ??C (97.3 ??F) 04/28/2021 10:25 AM EST Respiratory Rate 18 04/28/2021 12:10 PM EST Oxygen Saturation 97% 04/28/2021 12:10 PM EST Inhaled Oxygen Concentration - - Weight [...] as of this encounter Patient Instructions Patient InstructionsMy Guzman RN - 04/28/2021 10:15 AM EST Pain Center Procedural Discharge Instructions For Patient [address] [place] [id number] [phone] ([phone]) Thank you for choosing [facility] for the management of your chronic pain. [...] buttocks, severe constipation, or inability to urinate. Please complete your pain log Contact the Pain Center if you have any major problems. . For emergencies, contact 911 or go to your nearest emergency room. Special instructions: documented in this encounter Procedure Notes Stanford Flores MD - 04/28/2021 10:15 AM EST [facility] PATIENT NAME: Dario Mckeon PATIENT DATE OF SURGERY: 04/28/2021 TITLE OF PROCEDURE: Lumbar Diagnostic Medial Branch Block, #2/2 INDICATION: Dario Mckeon's pain is facet joint (z-joint) mediated disease that is aggravated by hyperextension, rotation or lateral bending. This was confirmed by provocative testing Greater than 80% pain relief was obtained by the first diagnostic block of these nerves LEVELS TREATED: L4-L5 and L5-S1(associated nerves L3, L4 and L5) SIDE: Right PREOPERATIVE DIAGNOSES: Lumbar Spondylosis without Myelopathy or Radiculopathy, Low Back Pain POSTOPERATIVE DIAGNOSES: Same LOCATION: [facility] SURGEON: Stanford Flores M.D ASSISTANTS: None ANESTHESIA: Local DESCRIPTION OF OPERATIVE PROCEDURE: The importance of doing the procedure without sedation was discussed with the patient again as was the possibility of pain during the procedure. Informed consent wasobtained. The patient was brought to the Procedure Room and positioned optimally for the procedure. Time-out was conducted with all members of the care team. Standard ASA monitors were placed. Standardprep and drape were performed. Lumbar: Prone Position. The appropriate levels of the lumbar spine were identified under fluoroscopy. Sites for needle insertion were identified using fluoroscopy, and marked on the skin with a sterilemarking pen. A 5 inch 22 Gauge Straight styletted spinal needle was guided to the superior junction of the transverse processes (or sacral ala) and superior articular processes of each level. This position is verified in A/P and lateral fluoroscopic projections. Injection of radiographic contrast revealed NO evidence of intravascular or intraspinal spread. One half mL of 0.5% Bupivacaine was injectedafter negative aspiration at each level. The needle was removed intact and discarded. The identical procedure was repeated at each of the sites treated. The surgical site preparation was washed off of the patient. Band-Aids were applied. The patient wasbrought to the recovery area. The patient tolerated the procedure well and results were discussed. Standard discharge instructionswere given to the patient. The patient knows how to contact the clinic should they have any questions or problems. Our clinic staff will call the patient for follow-up tomorrow. Preprocedural pain score was 4/10 Post procedural pain score was 0/10 COMPLICATIONS: Patient experienced feeling of light-headedness following the procedure. Heart ratedecreased to upper forties, BP 116/58. SaO2 96 on RA. BS 104. Moving legs well. Alert. Likely vagal response. Treated with IM ephedrine 25 mg with resolution. EBL: minimal URINE OUTPUT: not monitored PLAN: RF protocol: The patient will be called following the procedure and asked to recount their pain diary results. If the patient received significant pain relief of the treated area in a period 2-6hrs after the procedure while conducting normal pain-provoking activities, the patient will then be scheduled for a second MBB (if this was the first MBB) or RF denervation (if this was the second MBB) of the same levels on the same side (or patients most painful side). There is no expectation that the patient will receive pain relief past the 2-6 hr time frame of the local anesthetic. Electronically signed by: Stanford Flores MD 04/28/21 1259 documented in this encounter Plan of Treatment Scheduled Referrals Name Type Priority Associated Order Schedule Diagnoses Ambulatory Referral Outpatient Referral STAT Arthropathy of 1 Occurrences for Non-Operative lumbar facet j oint starting 04/28/2021 Spine Procedures Chronic right-sided unti l 04/28/2022 low back pain without sciatica documented as of this encounter Procedures Procedure Name Priority Date/Time Associated Diagnosis Comme nts POCT GLUCOSE Routine 04/28/2021 11:34 AM Results for this EST procedure are i n the results section . documented in this encounter Results (ABNORMAL) POCT Glucose (04/28/2021 11:34 AM EST) P athologist Signature GLUCOSE, POC, 107 (H) 70 - 99 NOVA NOVA mg/dL Specimen Anatomical Collection Method Collection Time Receive d Time (Source) Location / / Volume Laterality 04/28/2021 11:34 04/28/2021 AM EST 11:35 AM EST Stanford Flores MD POCT ORDERABLES - DEVICE Performing Organization Address City/State/ZIP Code Phon e Number NOVA FL FLUOROSCOPY BY NON RAD < 1 HOUR (04/28/2021 11:18 AM EST) Specimen (Source) Anatomical Location Collection Method / Collectio n Time Received Time / Laterality Volume Narrative COLTEN - 04/28/2021 11:18 AM EST This exam was automatically finalized an d will not be resulted. 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
--- OUTSIDE RECORDS SUMMARY | 2021-11-30 11:45 | XMS_ITS | Encounter Summary ---
:1955 Author Organization [facility] [place] [address] Care Team Providers Name Role Phone Neal Breen MD Primary Care Provider [phone] Encounter Details Date Type Department Care Team Description 04/28/2021 Travel Social History Tobacco Use Types Packs/Day [...] on filedocumented in this encounter Care Teams Complementary Health Therapists Relationship Specialty Start Date End Date Neal Breen MD PCP - General Family Medicine 07/31/18 07/14/[address] [place] [address] documented as of this encounter
--- OUTSIDE RECORDS SUMMARY | 2021-11-30 11:45 | XMS_ITS | Encounter Summary ---
:1955 Author Organization [facility] [place] [address] Care Team Providers Name Role Phone Neal Breen MD Primary Care Provider Reason for Visit Reason Onset Date Comments Prior Authorization 07/08/2021 Encounter Details Date Type Department Care Team Description 07/08/2021 Telephone Pain Management - Magalis Stephens Prio r Authorization [address] [place] [id number] Social History Tobacco Use Types Packs/Day Years [...] Exposure Response Date Recorded In the last 10 days, have you been in contact with No / Unsu re 07/08/2021 1:16 PM EDT someone who was confirmed or suspected to have Coronavirus/COVID-19? documented as of this encounter Functional Status [...] or older) documented as of this encounter Miscellaneous Notes Telephone Encounter - Magalis Stephens CMA - 07/08/2021 3:28 PM EDT Received a notice that patient needed a PA for cyclobenzaprine. This was sent to plan. This med was approved. Patient and Pharmacy was notified. CaseId:[id number];Status:Approved;Review Type:Prior Auth;Coverage Start Date:06/08/2021;Coverage End Date:07/08/2022; Electronically signed by: Magalis Stephens CMA 07/08/21 1530 documented in this encounter Plan of Treatment Not on filedocumented as of this encounter Visit Diagnoses Not on filedocumented in this encounter Care Teams Corporate Claims Examiner Relationship Specialty Start Date End Date Neal Breen MD PCP - General Family Medicine 07/31/18 07/14/[address] [place] [address] documented as of this encounter
--- OUTSIDE RECORDS SUMMARY | 2021-11-30 11:45 | XMS_ITS | Encounter Summary ---
:1955 Author Organization [facility] [place] [address] Care Team Providers Name Role Phone Neal Breen MD Primary Care Provider [phone] Encounter Details Date Type Department Care Team Description 02/09/2021 Travel Social History Tobacco Use Types Packs/Day [...] been in contact with No / Unsure 02/09/2021 2:13 PM EDT someone who was confirmed or [...] on filedocumented in this encounter Care Teams Cooperative Education Coordinator Relationship Specialty Start Date End Date Neal Breen MD PCP - General Family Medicine 07/31/18 07/14/[address] [place] [address] documented as of this encounter
--- OUTSIDE RECORDS SUMMARY | 2021-11-30 11:45 | XMS_ITS | Encounter Summary ---
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, lumbar region Zully [place] [facility] Procedures [place] INJ DX/THER AGNT PARAVERT FACET JOINT,IMG GUIDE,LUMBAR/SAC, 1ST LEVEL [place] INJ DX/THER AGNT PARAVERT FACET JOINT,IMG GUIDE,LUMBAR/SAC, 2ND LEVEL Procedure: MBB Lumbar right L4/5 and L5/S1 #/, [address] ([address] [place], [place] [address] level, [address] 3rd level), if B/L=[address] [address] Phone: Fax: Referral ID Status Reason Start Date Expiration Date Visits V isits Requested Authorized [id number] Closed Specialty 03/01/2021 03/01/2022 1 1 Services Required Encounter Details Date Type Department Care Team Description 03/29/2021 Procedure visit Pain Management Stanford Flores Arthro tram of lumbar facet joint (Primary Dx); Procedures - MD Jose Spondylosis without myelopathy or radicu lopathy, lumbar region [facility] [address] [place], [place] [id number] [place] [address], [place] [address] Social History Tobacco Use Types Packs/Day Years [...] Sign Reading Time Taken Comments Blood Pressure 137/82 03/29/2021 4:10 PM EST Pulse 55 03/29/2021 4:10 PM EST Temperature 36.6 ??C (97.8 ??F) 03/29/2021 3:51 PM EST Respiratory Rate 20 03/29/2021 3:51 PM EST Oxygen Saturation 97% 03/29/2021 4:10 PM EST Inhaled Oxygen Concentration - - [...] Patient Instructions Patient InstructionsChar Jackson RN - 03/29/2021 3:15 PM EST Pain Center Procedural Discharge [place] [address] [phone]) Thank you for choosing [facility] for the management of your chronic pain. [...] encounter Procedure Notes Stanford Flores MD - 03/29/2021 3:15 PM EST [facility] PATIENT NAME: Dario Mckeon PATIENT DATE OF SURGERY: 03/29/2021 TITLE OF PROCEDURE: Lumbar Diagnostic Medial Branch Block, #1/2 INDICATION: Dario Mckeon's pain is facet joint (z-joint) mediated disease that is aggravated by hyperextension, rotation or lateral bending. This was confirmed by provocative testing LEVELS TREATED: L4-L5 and L5-S1(associated nerves L3, L4 and L5) SIDE: Right PREOPERATIVE DIAGNOSES: Lumbar Spondylosis without Myelopathy or Radiculopathy, Low Back Pain POSTOPERATIVE DIAGNOSES: Same LOCATION: [facility] SURGEON: Stanford Flores M.D ASSISTANTS: Zully Ward DO ANESTHESIA: Local DESCRIPTION OF OPERATIVE PROCEDURE: The [...] the skin with a sterilemarking pen. A 3.5 inch 22 Gauge Curved styletted spinal needle was guided to the [...] for follow-up tomorrow. Preprocedural pain score was 6/10 Post procedural pain score was 6/10 COMPLICATIONS: None EBL: minimal URINE OUTPUT: not monitored PLAN: [...] anesthetic. Electronically signed by: Stanford Flores MD 03/29/21 1624 documented in this encounter Plan of Treatment Not on filedocumented as of this encounter Procedures Procedure Name Priority Date/Time Associated Diagnosis Comme nts FL FLUOROSCOPY BY Routine 03/29/2021 4:11 PM Arthropathy of Re sults for this NON RAD < 1 HOUR EST lumbar facet joint proce dure are in the results section. documented in this encounter Results FL FLUOROSCOPY BY NON RAD < 1 HOUR (03/29/2021 4:11 PM EST) Specimen (Source) Anatomical Location Collection Method / Collectio n Time Received Time / Laterality Volume Narrative ISITEPOW - 03/29/2021 4:11 PM EST This exam was automatically finalized an d will not be resulted. Stanford Flores MD IMG FLUOROSCOPY ORDERABLES Performing Organization Address City/State/ZIP Code Phon e Number ISITEPOW documented in this encounter Visit Diagnoses Diagnosis Arthropathy of lumbar facet joint - Prim avelino Spondylosis of unspecified site without mention of myelopathy Spondylosis without myelopathy or radicu lopathy, lumbar region documented in this encounter Care Teams Manager Planning Relationship Specialty Start Date End Date Neal Breen MD PCP - General Family Medicine 07/31/18 07/14/[address] [place] [address] documented as of this encounter
--- OUTSIDE RECORDS SUMMARY | 2021-11-30 11:45 | XMS_ITS | Encounter Summary ---
:1955 Author Organization [facility] [place] [address] Care Team Providers Name Role Phone Neal Breen MD Primary Care Provider [phone] Encounter Details Date Type Department Care Team Description 02/15/2021 Travel Social History Tobacco Use Types Packs/Day [...] been in contact with No / Unsure 02/15/2021 11:38 AM EDT someone who was confirmed or suspected [...] on filedocumented in this encounter Care Teams Small Products I Assembler Relationship Specialty Start Date End Date Neal Breen MD PCP - General Family Medicine 07/31/18 07/14/[address] [place] [address] documented as of this encounter
--- OUTSIDE RECORDS SUMMARY | 2021-11-30 11:45 | XMS_ITS | Encounter Summary ---
:1955 Author Organization [facility] [place] [address] Care Team Providers Name Role Phone Neal Breen MD Primary Care Provider [phone] Encounter Details Date Type Department Care Team Description 03/23/2021 Lab Visit [facility] T ype 2 diabetes mellitus Phlebotomy-[place] with hyperglycemia, without [address] [place] [address] insulin ([facility]) [phone] Social History Tobacco Use Types Packs/Day Years [...] Name Priority Date/Time Associated Diagnosis Comme nts HEMOGLOBIN A1C Routine 03/23/2021 11:28 AM Type 2 diabetes Res ults for this EST mellitus with procedure are in the hyperglycemia, results secti on. without long-term current use of insulin (HCC) documented in this encounter Results Hemoglobin A1C (03/23/2021 11:28 AM EST) athologist Signature HEMOGLOBIN A1C 5.7 <5.8 % 03/23/2021 [facility] 5:45 PM [facility] Comment: The reference ranges follow the ADA sanya mmendations: ?- Normal A1c: Less than 5.8% ?- Prediabetes range A1c: 5.8-6.4% ?- Diabetes range A1c: Above 6.4% eAG 117 MG/DL 03/23/2021 5:45 PM [facility] eAG Comment 03/23/2021 5:45 PM [facility] Comment: The ADA has supported the calcu lation of Average Glucose (eAG) based on HbA1c measurements. However, the eAG ref lects the average glycemic level over 2-3 months and it would not necessarily matc h single glucose laboratory measurements, nor reflect changes in the daily glucose con centration. A1c Comment 03/23/2021 5:45 PM EST [facility] Comment: Presence of heterozygote variants in pat ients' samples do not interfere with accurate measurements of HbA1c using Talya affinity boronate chromatography, when no other clinical conditions affecting qu ality/quantity of HbA and/or quantity of hemoglobin, overall, as well as quality/quantity of RBCs are concurrently present. Presence of homozygote variants and/or o ther medical conditions affecting the quality/quantity of HbA (e.g. alpha- and beta-thalassemia) and/or quantity of hemoglobin, overall, as well as quality/quanti ty of RBCs (e.g. anemia of any cause) tr igger inaccurate evaluations of the glycated HbA1c with any analytical method, including Talya affinity boronate chromatography. ??In these circumstances, fruct osamine testing for these patients is re commended. Hb F present at concentrations of 11% or above can interfere with accurate measurements of HbA1c. ??In these circumstances, fructosamine testing for these patients is recommended. Specimen Anatomical Collection Method / Collection Time Recei ericka Time (Source) Location / Volume Laterality Blood Venipuncture / 03/23/2021 11:28 1 Unknown AM EST 11:28 AM EST Neal Breen MD LAB BLOOD ORDERABLES Performing Organization Address City/State/ZIP Code Phon e Number [facility] CLIA# [id number] [place] [address] [facility] documented in this encounter Visit Diagnoses Diagnosis Type 2 diabetes mellitus with hyperglyce jackelyn, without long-term current use of insulin (HCC) documented in this encounter Care Teams Deputy Fire Marshal Relationship Specialty Start Date End Date Neal Breen MD PCP - General Family Medicine 07/31/18 07/14/[address] [place] [id number] documented as of this encounter
--- OUTSIDE RECORDS SUMMARY | 2021-11-30 11:45 | XMS_ITS | Encounter Summary ---
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, lumbar region Giuglicass, Zully [facility] Procedures Procedures IN INJ DX/THER AGNT PARAVERT FACET JOINT,IMG GUIDE,LUMBAR/SAC, 1ST LEVEL IN INJ DX/THER AGNT PARAVERT FACET JOINT,IMG GUIDE,LUMBAR/SAC, 2ND LEVEL Procedure: MBB Lumbar right L4/5 and L5/S1 #04/18, [address] ([address] [place] [address] level, [address] 3rd level), if B/L=50 [place] [address] [place] [address] Phone: Fax: Referral ID Status Reason Start Date Expiration Date Visits V isits Requested Authorized [id number] Closed Specialty 03/01/2021 03/01/2022 1 1 Services Required MRI/CAT Scan (Routine) - Closed Specialty Diagnoses / Procedures Referred By Contact Refer red To Contact Radiology Diagnoses Compression fracture of L1 vertebra, initial encounter (HCC) 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, lumbar region Giuglicass, Zully Lenore [facility] Imaging Procedures MR SPINE LUMBAR WO [address] [place] [address] [place] [address] Phone: Referral ID Status Reason Start Date Expiration Date Visits Requ ested Visits Authorized [id number] Closed 03/03/2021 05/01/2021 1 1 Reason for Visit Reason Comments Back Pain Consultation (Routine) - Closed Specialty Diagnoses / Procedures Referred By Contact Refer red To Contact Pain Medicine Diagnoses Acute low back pain, unspecified back pain laterality, unspecified whether sciatica present Compression fracture of L1 vertebra, initial encounter ([facility]) Neal Breen, [facility] MD [address] [facility], [address] [place] [address] Fax: Referral ID Status Reason Start Date Expiration Date Visits V isits Requested Authorized [id number] Closed Specialty 02/09/2021 02/09/2022 1 1 Services Required Encounter Details Date Type Department Care Team Description 03/01/2021 Initial consult Pain Management - Stanford Flores dylosis without myelopathy or radiculopathy, lumbar region (Primary Dx); Jennifer Garcia MD Acute low back pain, unspecified back pa in laterality, unspecified whether sciatica present; [address] [place] [address] Compressio n fracture of L1 vertebra, initial encounter ([facility]); [facility], [address] [facility] Arthropathy of lumbar facet joint; [address], Chronic right-sided low back pain without sciatica [phone] [place] [address] Social History Tobacco Use Types Packs/Day Years [...] been in contact with No / Unsure 03/01/2021 11:13 AM EST someone who was confirmed or suspected to have Coronavirus / COVID-19? documented as of this encounter Last Filed Vital Signs Vital Sign Reading Time Taken Comments Blood Pressure 138/75 03/01/2021 11:17 AM EST Pulse 66 03/01/2021 11:17 AM EST Temperature 36.4 ??C (97.5 ??F) 03/01/2021 11:17 AM EST Respiratory Rate 20 03/01/2021 11:17 AM EST Oxygen Saturation 95% 03/01/2021 11:17 AM EST Inhaled Oxygen Concentration - - [...] or older) documented as of this encounter Progress Notes Zully Ward, - 03/01/2021 11:30 AM EST [facility] New Patient Consultation Note Referring Doctor: Neal Breen MD Primary Doctor: Neal Breen MD Dario Mckeon is a 65 y.o. old male with PMH significant for Type 2 DM, HTN, MCI, and chronic low back pain being seen today by Stanford Flores M.D at the consultation request of Neal Breen MD for new patient office visit. Medical records reviewed today for this visit: Family Practice (Dr. Breen, 02/09/2021) Chief Complaint: Chief Complaint Patient presents with ??? Back Pain History of Present Illness: Mr. Mckeon states his most significant area of pain is in his axial low back to the right of midline.It began years ago but has worsened since about 1 year ago when he fell off of a tractor onto his backside. Of note, he had Right L3-S1 MBB's with Dr. Brito and [place] in 2018. After recently having kidney stones, he was found to have an L1 compression fracture on CT scan therefore was referred back to us, however, this was incidental and he feels his right Low back pain is the same pain he was having when he had MBB's in 2018. The pain is described as aching, dull and constant. The patient's pain score is rated as 6/10 on average. The pain improves and is better with resting and lying down; it is worse with exercise, yard work such as raking, sweeping, using the blower and standing for longer periods. Has physical therapy been completed for this pain complaint? Yes- for back and knees before Lumbar MBB's in 2018. Was physical therapy performed outside of [facility]? No Has chiropractic been completed for this pain complaint? No Is the patient currently taking an anticoagulant? No - Name of anticoagulant (include aspirin, BC/Goody/Odell Powders): Not applicable Previous tried medications and therapies include: - Anti-depressants: none - Membrane Stabilizers: none - Muscle Relaxants: none - NSAIDs: Naproxen (Aleve/Naprosyn) - Traditional Opioids: none - Non-traditional Opioids: None - Previously tried interventions: Facet injections or radiofrequency ablation Current use of other notable medications: None Review of Systems: A complete ROS was performed with positive/negative pertinent findings listed in HPI. Past Medical History: Past Medical History: Diagnosis Date ??? Acute CVA (cerebrovascular accident) (HCC) 09/16/2017 ??? Arthritis ??? Back pain ??? 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 Cerebral brain hemorrhage (HCC) ??? Diabetes mellitus (HCC) ??? Hyperlipemia ??? Kidney stones ??? MARTA (obstructive sleep apnea) ??? Ruptured appendix ??? Tachycardia Past Surgical History: Past Surgical History: Procedure Laterality Date ??? APPENDECTOMY ??? CARDIAC ELECTROPHYSIOLOGY MAPPING AND ABLATION ??? COLONOSCOPY ??? COLONOSCOPY N/A 04/28/2020 Procedure: COLONOSCOPY; Surgeon: Mckay Sanz MD; Location: [facility]; Service: Gastroenterology; Laterality: N/A; ??? CYSTOSCOPY W/ INTERNAL URETHROTOMY N/A 03/29/2019 Procedure: CYSTOSCOPY W/ INTERNAL URETHROTOMY; Surgeon: Fady Ndiaye MD; Location: [facility]; Service: Urology; Laterality: N/A; ??? ESWL Left 01/15/2021 Procedure: [facility] ESWL; Surgeon: Fady Ndiaye MD; Location: [facility]; Service: Urology; Laterality: Left; ??? JOINT REPLACEMENT left knee replacement ??? LUMBAR / THORACIC MEDIAL BRANCH BLOCK N/A 08/02/2017 Procedure: LUMBAR/THORACIC MEDIAL BRANCH BLOCK (Right L2-5); Surgeon: Petr Brito MD; Location: [facility]; Service: Rehab Medicine; Laterality: N/A; ??? LUMBAR / THORACIC MEDIAL BRANCH BLOCK Right 08/15/2017 Procedure: LUMBAR/THORACIC MEDIAL BRANCH BLOCK - Right L2-L5; Surgeon: Neptali Toldeo MD; Location: [address] [facility]; Service: Anes Physiatry; Laterality: Right; ??? ROBOTIC YOUSIF UNICOMPARTMENTAL KNEE REPLACEMENT Left 11/01/2016 Procedure: MEDIAL YOUSIF - UNICOMPARTMENTAL KNEE REPLACEMENT - ROBOTIC; Surgeon: Miguelito Manuel MD; Location: OUTPATIENT OR; Service: Orthopedics; Laterality: Left; ??? SKIN BIOPSY Family History: Family History Problem Relation Age of Onset ??? Hypertension Mother ??? Alzheimer's disease Mother ??? Heart disease Mother ??? Kidney disease Mother ??? Diabetes Father ??? Heart disease Father ??? Alzheimer's disease Father ??? Alcohol abuse Brother ??? Alzheimer's disease Maternal Aunt ??? Alzheimer's disease Maternal Grandmother ??? Cancer Paternal Grandmother ??? Cancer Paternal Grandfather ??? Stroke Neg Hx Social History: Social History Tobacco Use ??? Smoking status: Former Smoker Types: Cigarettes Quit date: 04/16/1989 Years since quittin.8 ??? Smokeless tobacco: Former User Quit date: 2004 Substance Use Topics ??? Alcohol use: Yes Comment: occasional beer (very rare) Allergies: Morphine, Sulfamethoxazole, Sulfasalazine, Ciprofloxacin, Codeine phosphate, Nuedexta [dextromethorphan-quinidine], and Pollen extracts Current Medications: Current Outpatient Medications Medication Sig Dispense Refill ??? atorvastatin (LIPITOR) 20 MG tablet TAKE 1 TABLET(20 MG) BY MOUTH DAILY 90 tablet 3 ??? buPROPion SR (WELLBUTRIN SR) 100 MG 12 hr tablet Take 100 mg by mouth 2 times daily. 100 MG IN AM, 150 MG IN EVENING ??? donepezil (ARICEPT) 10 MG tablet Take 10 mg by mouth in the morning and at bedtime. ??? flecainide (TAMBOCOR) 100 MG tablet TAKE 1 TABLET(100 MG) BY MOUTH TWICE DAILY 180 tablet 3 ??? ipratropium (ATROVENT) 21 mcg (0.03 %) nasal spray USE 2 SPRAYS IN EACH NOSTRIL THREE TIMES DAILY 30 mL 1 ??? lisinopriL (PRINIVIL,ZESTRIL) 2.5 MG tablet Take 1 tablet (2.5 mg total) by mouth daily. 90 tablet 5 ??? memantine 28 mg CSpX Take 28 mg by mouth daily. ??? metFORMIN ER (GLUCOPHAGE-XR) 500 MG extended release tablet TAKE 1 TABLET(500 MG) BY MOUTH TWICEDAILY WITH MEALS 180 tablet 5 ??? metoPROLOL succinate (TOPROL-XL) 50 MG 24 hr tablet 1 tab PO daily 180 tablet 5 ??? naproxen (NAPROSYN) 500 MG tablet Take 1 tablet (500 mg total) by mouth 2 times daily. PRN 180 tablet 5 No current facility-administered medications for this visit. Review of Systems: ROS completed on pain intake sheet reviewed, pertinent positive/negative findings related to this visit are noted in the HPI and Assessment/Plan. Vitals: Vitals: 03/01/21 1117 BP: 138/75 Pulse: 66 Temp: 97.5 ??F (36.4 ??C) Resp: 20 SpO2: 95% PainSc: 6-Six (moderate) Position: Sitting Physical Exam: Constitutional: Well developed, Well nourished, No acute distress and Interactive General: Patient is alert and orientated Psychological: The patient's mood is normal, and appropriate for the circumstances Pain (Neuro/Musculoskeletal) Physical Exam: Spine: The spine is straight. Gait: normal. Uses assist device - no assistive device Reflexes: No clonus; No rowley's Sensory: Fine sensation: Normal in UE and LE, Bilaterally symmetric Pain (Neuro/Musculoskeletal): Cervical: normal ROM, without paraspinal tenderness, without pain with facet loading Back: Normal range of motion, with paraspinal tenderness most significant in right lower lumbar spine region, with significant pain with facet loading on the right (spine extension and rotation), without Q/L muscle tenderness, straight leg negative Sacral: No tenderness to palpation of SI joints Motor: Muscle Left Right EHL (L5) 5/5 5/5 TA (L4) 5/5 5/5 GS (S1) 5/5 5/5 Quad (L3) 5/5 5/5 HS (L2) 5/5 5/5 Controlled Substance Monitoring: NCPDMP: Reviewed Yes Opioid Agreement signed today or on file? No UDS (Urine Drug Screen) & Results: No results found for: AMPH, MELE, LABBENZ, COCA, OPIA, THC Imaging and Diagnostic Studies: All applicable diagnostic studies related to this consultation have been reviewed. Relevant diagnostic reports and/or my personal review of imaging or other diagnostic studies listed below: CT STONE STUDY, 01/07/2021 2:03 PM LIMITATIONS: Lack of intravenous contrast decreases sensitivity for the detection of solid organ lesions. FINDINGS: Peritoneum: Within normal limits. Extraperitoneum: Within normal limits. Ureters: 5 mm proximal left ureteral stone without obstruction. Bladder: Within normal limits. Reproductive system: Within normal limits. Vascular: Within normal limits. MSK: Moderate to advanced multilevel degenerative changes in lumbar spine with chronic inferior endplate compression fracture of L1 again noted. CONCLUSION: Nephrolithiasis with proximal 5 mm nonobstructing stone in the left ureter. Ancillary findings above. I personally reviewed imaging studies and/or radiology results with the patient today. Relevant Labs Reviewed: Lab Results Component Value Date CREATININE 1.79 (H) 10/15/2020 Lab Results Component Value Date WBC 9.0 10/15/2020 HGB 12.7 (L) 10/15/2020 HCT 38.9 (L) 10/15/2020 MCV 88.9 10/15/2020 PLT 264 10/15/2020 Lab Results Component Value Date HBA1C 5.5 09/16/2020 Diagnosis: Spondylosis without myelopathy or radiculopathy, lumbar region - MR SPINE LUMBAR WO CONTRAST - Ambulatory Referral for Non-Operative Spine Procedures Acute low back pain, unspecified back pain laterality, unspecified whether sciatica present - Ambulatory Referral To Pain Clinic Compression fracture of L1 vertebra, initial encounter (HCC) - Ambulatory Referral To Pain Clinic - MR SPINE LUMBAR WO CONTRAST Arthropathy of lumbar facet joint - MR SPINE LUMBAR WO CONTRAST - Ambulatory Referral for Non-Operative Spine Procedures Assessment and Plan: Dario Mckeon is a 65 y.o. old male referred from NuhaNeal retana MD presenting for new patient consultation. He was previously seen by [facility] pain in 2018, had both sets of Right Lumbar MBB done with good relief but decided to ride it out and did not go through with Right Lumbar RFA. He has since had recurrence of his right lumbar pain (same pain as before) and would like to proceed with RFA. Exam reveals + lumbar axial paraspinal tenderness and + Facet Loading on the right. He will needto repeat blocks- first set ordered as below. Of note, he was also found to have an incidental L1 compression fracture on CT scan for kidney stones, therefore will obtain MRI Lumbar Spine to assess age and make sure he has not had further compression fractures. The L1 compression fracture is likely not contributing to his righter lower lumbar axial back pain. Medications: ??? None Procedural Interventions: ??? Case requested for right side MBB's L4-5 L5-S1 #1/2 o If patient has Physical Therapy: ??? None- already had PT for back through [facility] Imaging/Diagnostic Studies: ??? MRI Lumbar Spine WO contrast Referrals/Consults: ??? None Follow up: No follow-ups on file. Treatment plan fully discussed and agreed upon with the patient. All questions were answered. Electronically signed by: Zully Ward DO 03/01/2021 6:26 PM I saw and evaluated the patient and reviewed the resident's note. I agree with the resident's findings and plan. Electronically Signed by: Stanford Flores MD, Attending Physician 03/03/2021 11:09 AM Electronically signed by: Stanford Flores MD 03/02/21 1034 Electronically signed by: Stanford Flores MD 03/02/21 1035 Electronically signed by: Stanford Flores MD 03/03/21 1109 documented in this encounter Plan of Treatment Not on filedocumented as of this encounter Results MR SPINE LUMBAR WO CONTRAST (03/16/2021 4:34 PM EST) Anatomical Region Laterality Modality L-spine Magnetic Resonance Specimen (Source) Anatomical Collection Method Collection Time Re ceived Time Location / / Volume Laterality 03/16/2021 4:41 PM EST Impressions 03/16/2021 4:49 PM EST 1. At L2-3 there is mild disc bulge with superimposed left paracentral disc herniation that has some superior migration. There is resulting mild left-sided central canal stenosis without significant foraminal stenosis. 2. Additional chronic degenerative findi ngs, as reported, have the following results: At L3-4 there is mild bilateral foramina l stenosis; At L4-5 there is moderate bilateral fora marty stenosis; At L5-S1 there is mild bilateral foramin al stenosis. . Narrative 03/16/2021 4:49 PM EST MRI LUMBAR SPINE WITHOUT CONTRAST, 03/16/2021 4:34 PM INDICATION: Osteoarthritis, lumbosacral \ Low back pain, > 6 wks \ Low back pain, increased fracture risk \ Facetogenic low back pain, Compression Fracture L1 which is likely incidenctal but seen on CT scan \ S32.010A Compression fracture of L1 vertebra, initial encounter ([facility]) \ M47.816 Arthropathy of lumbar facet joint \ M47.816 Spondylosis without myelopathy or radiculopathy, lumbar region COMPARISON: Lumbar spine MRI 02/22/2017; abdomen pelvis CT 01/07/2021 TECHNIQUE: Multiplanar, multi-sequence s urface-coil MR imaging of the lumbar spine was performed without contrast. LEVELS IMAGED: Lower thoracic to upper s acral region. FINDINGS: Alignment: Chronic slight retrolisthesis at L3-4. Vertebrae: No marrow signal abnormalitie s to suggest neoplasm. Chronic inferior compression fracture at L1. Conus: In normal position without imagin g evidence for tethering. Normal signal and contour. T12-L1: No significant focal abnormality . L1-L2: Mild diffuse disc bulge without s ignificant central canal or foraminal stenosis. L2-L3: Mild diffuse disc bulge with supe rimposed left paracentral disc herniation that has some superior migration. There is mild left-sided central canal stenosis. No significant foraminal stenosis. L3-L4: Diffuse disc bulge and facet hype rtrophy. There is mild bilateral foraminal stenosis. No significant central canal stenosis. L4-L5: Diffuse disc bulge and facet hype rtrophy. There is moderate bilateral foraminal stenosis. No significant central canal stenosis. L5-S1: Diffuse disc bulge and facet hype rtrophy. There is mild bilateral foraminal stenosis. No significant central canal stenosis. Upper sacrum/ilium: No significant focal abnormality. Procedure Note Benjamin Ceron MD - 03/16/2021Format ting of this note might be different from the original. MRI LUMBAR SPINE WITHOUT CONTRAST, 03/16 4:34 PM INDICATION: Osteoarthritis, lumbosacral \ Low back pain, > 6 wks \ Low back pain, increased fracture risk \ Facetogenic low back pain, Compression Fracture L1 which is likely incidenctal but seen on CT scan \ S32.010A Compression fracture of L1 vert ebra, initial encounter (HCC) \ M47.816 Arthropathy of lumbar facet joint \ M47.816 Spondylosis without myelopathy or radiculopathy, lumbar region COMPARISON: Lumbar spine MRI 02/22/2017; abdomen pelvis CT 01/07/2021 TECHNIQUE: Multiplanar, multi-sequence s urface-coil MR imaging of the lumbar spine was performed without contrast. LEVELS IMAGED: Lower thoracic to upper s acral region. FINDINGS: Alignment: Chronic slight retrolisthesis at L3-4. Vertebrae: No marrow signal abnormalitie s to suggest neoplasm. Chronic inferior compression fracture at L1. Conus: In normal position without imagin g evidence for tethering. Normal signal and contour. T12-L1: No significant focal abnormality . L1-L2: Mild diffuse disc bulge without s ignificant central canal or foraminal stenosis. L2-L3: Mild diffuse disc bulge with supe rimposed left paracentral disc herniation that has some superior migration. There is mild left-sided central canal stenosis. No significant foraminal stenosis. L3-L4: Diffuse disc bulge and facet hype rtrophy. There is mild bilateral foraminal stenosis. No significant central canal stenosis. L4-L5: Diffuse disc bulge and facet hype rtrophy. There is moderate bilateral foraminal stenosis. No significant central canal stenosis. L5-S1: Diffuse disc bulge and facet hype rtrophy. There is mild bilateral foraminal stenosis. No significant central canal stenosis. Upper sacrum/ilium: No significant focal abnormality. CONCLUSION: 1. At L2-3 there is mild disc bulge with superimposed left paracentral disc herniation that has some superior migration. There is resulting mild left-sided central canal stenosis without significant foraminal stenosis. 2. Additional chronic degenerative findi ngs, as reported, have the following results: At L3-4 there is mild bilateral foramina l stenosis; At L4-5 there is moderate bilateral fora marty stenosis; At L5-S1 there is mild bilateral foramin al stenosis. . Stanford Flores MD IMG MRI ORDERABLES documented in this encounter Visit Diagnoses Diagnosis Spondylosis without myelopathy or radicu lopathy, lumbar region - Primary Acute low back pain, unspecified back pa in laterality, unspecified whether sciatica present Compression fracture of L1 vertebra, ini tial encounter (HCC) Arthropathy of lumbar facet joint Spondylosis of unspecified site without mention of myelopathy Chronic right-sided low back pain withou t sciatica Compression fracture of L1 vertebra, ini tial encounter (HCC) Arthropathy of lumbar facet joint Spondylosis of unspecified site without mention of myelopathy Spondylosis without myelopathy or radicu lopathy, lumbar region documented in this encounter Care Teams Director Pediatric Relationship Specialty Start Date End Date Neal Breen MD PCP - General Family Medicine 07/31/18 07/14/[address] [place] [address] documented as of this encounter
--- OUTSIDE RECORDS SUMMARY | 2021-11-30 11:45 | XMS_ITS | Encounter Summary ---
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, lumbar region Giugliano, Zully [facility] Procedures MR SPINE LUMBAR CONTRAST [address] [address] [place] [address] Phone: Referral ID Status Reason Start Date Expiration Date Visits Requ ested Visits Authorized [id number] Closed 03/03/2021 05/01/2021 1 1 Reason for Visit MRI/CAT Scan (Routine) - Closed Specialty Diagnoses / Procedures Referred By Contact Refer red To Contact Radiology Diagnoses Compression fracture of L1 vertebra, initial encounter (HCC) 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 metoPROLOL succinate 1 tab PO daily 180 [...] as needed for up to 10 days. metFORMIN ER TAKE 1 TABLET(500 180 tablet 5 03/16/202003/30 (GLUCOPHAGE-XR) 500 MG MG) BY MOUTH TWICE extended release tablet DAILY WITH MEALS naproxen (NAPROSYN) 500 MG Take 1 tablet (500 180 tablet 5 0 06/30/2020 07/08/2021 tablet mg total) by mouth 2 times daily. PRN documented as of this encounter Plan of Treatment Not on filedocumented as of this encounter Procedures Procedure Name Priority Date/Time Associated Diagnosis Comme nts MR SPINE LUMBAR WO Routine 03/16/2021 4:34 PM Compression frac ture Results for this CONTRAST EST of L1 vertebra, procedure ar e in initial encounter the result s (HCC) section. Arthropathy of lumbar facet manny nt Spondylosis without myelopathy or radiculopathy, lumbar region documented in this encounter Results MR SPINE LUMBAR WO [...] Compression fracture of L1 vertebra, initial encounter ([facility]) \ M47.816 Arthropathy of lumbar facet joint [...] documented in this encounter Visit Diagnoses Diagnosis Compression fracture of L1 vertebra, ini tial encounter (HCC) Arthropathy of lumbar facet joint Spondylosis of unspecified site without mention of myelopathy Spondylosis without myelopathy or radicu lopathy, lumbar region documented in this encounter Care Teams Supervisor [employer] Relationship Specialty Start Date End Date Neal Breen MD PCP - General Family Medicine 07/31/18 07/14/[address] [place] [address] documented as of this encounter
--- OUTSIDE RECORDS SUMMARY | 2021-11-30 11:45 | XMS_ITS | Encounter Summary ---
:1955 Author Organization [facility] [place] [address] Care Team Providers Name Role Phone Neal Breen MD Primary Care Provider [phone] Encounter Details Date Type Department Care Team Description 03/01/2021 Travel Social History Tobacco Use Types Packs/Day [...] on filedocumented in this encounter Care Teams Bitumen Plant Operator Relationship Specialty Start Date End Date Neal Breen MD PCP - General Family Medicine 07/31/18 07/14/[address] [place] [address] documented as of this encounter
--- OUTSIDE RECORDS SUMMARY | 2021-11-30 11:45 | XMS_ITS | Encounter Summary ---
:1955 Author Organization [facility] [place] [address] Care Team Providers Name Role Phone Neal Breen MD Primary Care Provider [phone] Reason for Visit Reason Onset Date Comments Post-op Phone Call 06/02/2021 Encounter Details Date Type Department Care Team Description 06/02/2021 Telephone Pain Management - Chetna Max P ost-op Phone Call [address] [place] [address] [phone] Social History Tobacco Use Types Packs/Day Years [...] this encounter Miscellaneous Notes Telephone Encounter - Chetna Max LPN - 06/02/2021 3:26 PM EST Post op call made to pt, Left voicemail for pt. Pt encouraged to call pain services nurse triage line [phone] if any issues or concerns should arise. Electronically signed by: Chetna Max LPN 06/02/21 1526 documented in this encounter Plan of Treatment Not on filedocumented as of this encounter Visit Diagnoses Not on filedocumented in this encounter Care Teams Career Consultant Relationship Specialty Start Date End Date Neal Breen MD PCP - General Family Medicine 07/31/18 07/14/[address] [place] [id number] documented as of this encounter
--- OUTSIDE RECORDS SUMMARY | 2021-11-30 11:45 | XMS_ITS | Encounter Summary ---
:1955 Author Organization [facility] [address] Care Team Providers Name Role Phone Neal Breen MD Primary Care Provider [phone] Encounter Details Date Type Department Care Team Description 02/15/2021 Hospital Encounter Diagnostic Imaging - Neal Breen MD [facility] [address] [place] [address] [address] [phone] [place], [place] [address] (Wo rk) Social History Tobacco Use Types [...] TWICE extended release tablet DAILY WITH MEALS multivitamin capsule Take 1 capsule by 0 03/01/2021 mouth daily. naproxen (NAPROSYN) 500 MG Take 1 tablet (500 180 tablet 5 0 06/30/2020 07/08/2021 tablet mg total) by mouth 2 times daily. PRN documented as of this encounter Plan of Treatment Not on filedocumented as of this encounter Procedures Procedure Name Priority Date/Time Associated Diagnosis Comme nts XR BONE DENSITOMETRY Routine 02/15/2021 12:13 Compression frac ture Results for this PM EDT of L1 vertebra, procedure ar e in initial encounter the result s (HCC) section. documented in this encounter Results XR BONE DENSITOMETRY (02/15/2021 12:13 PM EDT) Anatomical Region Laterality Modality Digital Radiography Specimen (Source) Anatomical Collection Method Collection Time Re ceived Time Location / / Volume Laterality 02/15/2021 12:41 PM EDT Impressions 02/15/2021 12:44 PM EDT 1. ??Diagnosis: Normal bone mineralizati on. 2. ??Fracture risk is normal. FRAX not a pplicable in the setting of normal bone mineral density. 3. ??Monitoring: ??No priors for compari son. 4. ??Consider repeat DXA in 3 years to a ssess bone density change or response to treatment. Narrative 02/15/2021 12:44 PM EDT BONE DENSITOMETRY (DEXA), 02/15/2021 12:13 PM INDICATION: ??\ S32.010A Compression fra cture of L1 vertebra, initial encounter ([facility]) TECHNICAL QUALITY: Good. CLINICAL HISTORY: [age] Race: White Gender: Male Menopausal status: Not applicable Risk factors: Chronic steroid use and fr actures. Osteoporosis therapy: None TECHNIQUE: The study was performed using [employer] Advance bone densitometer. FINDINGS: LUMBAR SPINE BMD measured in L1-L4 region of interest is 1.687 g/cm2. T-score: 3.6 Z-score: 3.4 Comments: None. FEMORAL NECK BMD measured in left femoral neck region of interest is 0.981 g/cm2. T-score: - 0.7 Z-score: - 0.1 Comments: None. TOTAL HIP BMD measured in left total hip region of interest is 1.116 g/cm2. T-score: 0.1 Z-score: 0.2 Comments: None. PLEASE NOTE Note 1: WHO classification: The T-score compares the patient's BMD to the average BMD of a young adult. The criteria below are from the World Health Organization: 1. Normal: T-score -1.0 or above. 2. Osteopenia/low bone mass: T-score -1. 1 to -2.4. 3. Osteoporosis: T-score -2.5 or lower. 4. Severe or established osteoporosis: T -score -2.5 or lower plus fragility fracture. Note 2: According to the International Society f or Clinical Densitometry's 2013 consensus conference, in women prior to menopause and men less than age 50: 1. Z-scores, not T-scores are preferred. This is particularly important in children. 2. A Z-score of -2.0 or lower is defined as 'below the expected range for age' and a Z-score above -2.0 is 'within the expected range for age'. 3. The WHO diagnostic criteria may be ap plied in women in the menopausal transition. 4. Osteoporosis cannot be diagnosed in m en under age 50 and the basis of BMD alone. Note 3: Approaches to reduce osteoporosis relate d fracture risk include optimizing calcium and vitamin D status and fall prevention measures. The National Osteoporosis Foundation (http://www.nof.org/hcp/practic e/yshfrjax-wem-olweexpe-guidelines/clini cians-guide) recommends: 1. Initiate pharmacologic treatment in t hose with hip or vertebral fractures (clinical or asymptomatic). 2. Initiate therapy in those with T-scor es less than or equal to -2.5 at the femoral neck, total hip or lumbar spine by DXA, after appropriate evaluation. 3. Initiate treatment in postmenopausal women and men age 50 or older with low bone mass (T-score between -1.0 and 2.5, osteopenia) at the femoral neck, total hip or lumbar spine by DXA and a 10-year hi p fracture probability greater than or e qual to 3% or a 10-year major osteoporosis-related fracture probability of greater than or equal to 20% based on the U.S. adapted WHO absolute fracture risk model (FRAX: www.NOF.org and www.shef.ac.uk/FRAX). All treatment decisions require clinical judgment and consideration of individual factors including patient preferences, comorbidities, prior drug use, risk factors not captured in the FRAX model (e.g. sarcopenia, falls, vitamin D deficiency, increased bone turnover, interval significant decline in bone density) and possible under or over estimation of fracture risk by FRAX. The [employer] olvin delines for patients receiving glucocorticoid therapy can be found at: http://www.rheumatology.org/practice/clinical/guidelines/ACR_2010_GIOP_Recomm_Cl inicians_Guide.pdf Note 4: At this facility, the least significant change in BMD with 95% confidence is 0.04 g/cm2 at the lumbar spine or total hip. Procedure Note Aubrey Guerra Jr., MD - 02/16/20 21 BONE DENSITOMETRY (DEXA), 02/15/2021 12:1 3 PM INDICATION: \ S32.010A Compression fract ure of L1 vertebra, initial encounter ([facility]) TECHNICAL QUALITY: Good. CLINICAL HISTORY: [age] Race: White Gender: Male Menopausal status: Not applicable Risk factors: Chronic steroid use and fr actures. Osteoporosis therapy: None TECHNIQUE: The study was performed using [employer] Advance bone densitometer. FINDINGS: LUMBAR SPINE BMD measured in L1-L4 region of interest is 1.687 g/cm2. T-score: 3.6 Z-score: 3.4 Comments: None. FEMORAL NECK BMD measured in left femoral neck region of interest is 0.981 g/cm2. T-score: - 0.7 Z-score: - 0.1 Comments: None. TOTAL HIP BMD measured in left total hip region of interest is 1.116 g/cm2. T-score: 0.1 Z-score: 0.2 Comments: None. PLEASE NOTE Note 1: WHO classification: The T-score compares the patient's BMD to the average BMD of a young adult. The criteria below are from the World Health Organization: 1. Normal: T-score -1.0 or above. 2. Osteopenia/low bone mass: T-score -1. 1 to -2.4. 3. Osteoporosis: T-score -2.5 or lower. 4. Severe or established osteoporosis: T -score -2.5 or lower plus fragility fracture. Note 2: According to the International Society f or Clinical Densitometry's 2013 consensus conference, in women prior to menopause and men less than age 50: 1. Z-scores, not T-scores are preferred. This is particularly important in children. 2. A Z-score of -2.0 or lower is defined as 'below the expected range for age' and a Z-score above -2.0 is 'within the expected range for age'. 3. The WHO diagnostic criteria may be ap plied in women in the menopausal transition. 4. Osteoporosis cannot be diagnosed in m en under age 50 and the basis of BMD alone. Note 3: Approaches to reduce osteoporosis relate d fracture risk include optimizing calcium and vitamin D status and fall prevention measures. The National Osteoporosis Foundation (http://www.nof.org/hcp/pract ice/ucwqwhrw-acj-rliredtx-guidelines/clinician s-guide) recommends: 1. Initiate pharmacologic treatment in t hose with hip or vertebral fractures (clinical or asymptomatic). 2. Initiate therapy in those with T-scor es less than or equal to -2.5 at the femoral neck, total hip or lumbar spine by DXA, after appropriate evaluation. 3. Initiate treatment in postmenopausal women and men age 50 or older with low bone mass (T-score between -1.0 and 2.5, osteopenia) at the femoral neck, total hip or lumbar spine by DXA and a 10-year hip fracture probability greater than or equal to 3% or a 10-year major osteoporosis-related fracture probability of greater than or equal to 20% based on the U.S. adapted WHO absolute fracture risk model (FRAX: www.NOF.org and www.shef.ac.uk/FRAX). All treatment decisions require clinical judgment and consideration of individual factors including patient preferences, comorbidities, prior drug use, risk factors not captured in the FRAX model (e.g. sarcopenia, falls, vitamin D deficiency, increased b one turnover, interval significant decline in bone density) and possible under or over estimation of fracture risk by FRAX. The [employer] olvin delines for patients receiving glucocorticoid therapy can be found at: http://www.rheumatology.org/practice/clinical/guidelines/ACR_2010_GIOP_Recomm_Cl inicians_Guide.pdf Note 4: At this facility, the least significant change in BMD with 95% confidence is 0.04 g/cm2 at the lumbar spine or total hip. CONCLUSION: 1. Diagnosis: Normal bone mineralization . 2. Fracture risk is normal. FRAX not benoit licable in the setting of normal bone mineral density. 3. Monitoring: No priors for comparison. 4. Consider repeat DXA in 3 years to ass ess bone density change or response to treatment. Neal Breen MD IMG DIAGNOSTIC IMAGING ORDER MASOUD documented in this encounter Visit Diagnoses Diagnosis Compression fracture of L1 vertebra, ini tial encounter (HCC) documented in this encounter Care Teams Public Relations Account Supervisor Relationship Specialty Start Date End Date Neal Breen MD PCP - General Family Medicine 07/31/18 07/14/[address] [place] [address] documented as of this encounter
--- OUTSIDE RECORDS SUMMARY | 2021-11-30 11:45 | XMS_ITS | Encounter Summary ---
:1955 Author Organization [facility] [place] [address] Care Team Providers Name Role Phone Neal Breen MD Primary Care Provider [phone] Encounter Details Date Type Department Care Team Description 07/08/2021 Travel Social History Tobacco Use Types Packs/Day [...] on filedocumented in this encounter Care Teams Cell Room Supervisor Relationship Specialty Start Date End Date Neal Breen MD PCP - General Family Medicine 07/31/18 07/14/[address] [place] [address] documented as of this encounter
--- OUTSIDE RECORDS SUMMARY | 2021-11-30 11:45 | XMS_ITS | Encounter Summary ---
:1955 Author Organization [facility] [place] [address] Care Team Providers Name Role Phone Neal Breen MD Primary Care Provider [phone] Encounter Details Date Type Department Care Team Description 03/29/2021 Travel Social History Tobacco Use Types Packs/Day [...] on filedocumented in this encounter Care Teams Check Out Cashier Relationship Specialty Start Date End Date Neal Breen MD PCP - General Family Medicine 07/31/18 07/14/[address] [place] [address] documented as of this encounter
--- OUTSIDE RECORDS SUMMARY | 2021-11-30 11:45 | XMS_ITS | Encounter Summary ---
:1955 Author Organization [facility] [place] [address] Care Team Providers Name Role Phone Neal Breen MD Primary Care Provider [phone] Reason for Visit Reason Comments Back Pain Encounter Details Date Type Department Care Team Description 07/08/2021 Office Visit Pain Management - Stanford Flores Spondyl osis of lumbar region without myelopathy or radiculopathy (Primary Dx); Jennifer Garcia MD Arthropathy of lumbar facet joint; [address] [place] [address] Chronic ri ght-sided low back pain without sciatica Drive, [address] [place] [address] [place], [place] [phone] [address] Social History Tobacco Use Types Packs/Day Years [...] have Coronavirus/COVID-19? documented as of this encounter Last Filed Vital Signs Vital Sign Reading Time Taken Comments Blood Pressure 127/76 07/08/2021 1:24 PM EDT Pulse 64 07/08/2021 1:24 PM EDT Temperature 36.4 ??C (97.6 ??F) 07/08/2021 1:24 PM EDT Respiratory Rate 20 07/08/2021 1:24 PM EDT Oxygen Saturation 95% 07/08/2021 1:24 PM EDT Inhaled Oxygen Concentration - - Weight - [...] documented as of this encounter Progress Notes Stanford Flores MD - 07/08/2021 1:15 PM EDT [facility] Follow Up Note Primary Doctor: Neal Breen MD Date of Service: 07/11/2021 Chief Complaint(S): Back Pain [facility] Physician: Dr. Stanford Flores HISTORY OF PRESENT ILLNESS: Dario Mckeon is a 65 y.o. old male with chronic RIGHT-side low back pain without radicopathy, lumbar spondylosis, and lumbar facet arthropathy here today for follow up. He has had appropriate response to MBB, but obtained only about two days of relief with RFA. He denies problems with the procedure otherwise. He has been taking naproxen without relief. He has also used ibuprofen and meloxicam in the past, without relief. Cyclobenzaprine has been helpful, as has Percocet. He is requesting a prescription for those today. He informs me that he is moving to [place] early next month. He has already found a pain clinic, at [facility]. He may benefit from LEFT-side MBB/RFA, but the timing of his move precludes additional procedures here. He will address this with his new providers in [place]. He denies any major changes in their health since the last visit. Last Clinical Office Visit: 03/01/21 with me (initial consult). PREVIOUS INTERVENTIONS at [facility]: RFA RIGHT L3, L4, & L5 completed on 06/02/[address] Flores with percent pain relief is: 80%, for two days only. Problems addressed: Problem List Items Addressed This Visit Musculoskeletal and Integument Spondylosis of lumbar region without myelopathy or radiculopathy - Primary (Chronic) Relevant Medications oxyCODONE-acetaminophen (PERCOCET) 5-325 mg per tablet diclofenac (VOLTAREN) 75 MG EC tablet cyclobenzaprine (FLEXERIL) 10 MG tablet Arthropathy of lumbar facet joint Other Chronic right-sided low back pain without sciatica Relevant Medications oxyCODONE-acetaminophen (PERCOCET) 5-325 mg per tablet diclofenac (VOLTAREN) 75 MG EC tablet cyclobenzaprine (FLEXERIL) 10 MG tablet Data Reviewed and Analyzed: Medical Records: Operative Reports Records analyzed for previous treatments Labs/Imaging: IMAGING Lab/Imaging analyzed for identify anatomic lesions Goals met: no PLAN/INTERVENTIONS: 1) Medical Modalities: see prescribed medications: cyclobenzaprine and diclofenac. Percocet for prn use for anticipated increased pain associated with the move. Would not continue this long-term. Moderate Risk 2) Interventional Modalities: None Anticoagulation status & recommendations: none 3) Therapy Modalities: None, Continue HEP 4) Imaging/Labs: None 5) Consults: None Is this patient being prescribed opioids by the [facility]: Yes: Is this patient receiving >50MME/day? No Is this patient 18 years or older and has been prescribed opioid medications for longer than 5 weeks of duration? No Is the patient on opioids and co-prescribed benzodiazepines? NoUDS (Urine Drug Screen) & Results:None ordered to date Medications Prescribed at clinical visit: No orders of the defined types were placed in this encounter. Orders Placed This Encounter Medications ??? DISCONTD: cyclobenzaprine (FLEXERIL) 10 MG tablet Sig: Take 1 tablet (10 mg total) by mouth 3 (three) times daily as needed for up to 14 days. Dispense: 40 tablet Refill: 0 ??? oxyCODONE-acetaminophen (PERCOCET) 5-325 mg per tablet Sig: Take 1 tablet by mouth every 6 (six) hours as needed for up to 5 days. Dispense: 20 tablet Refill: 0 Order Specific Question: Is this an INITIAL opioid prescription to treat ACUTE non-cancer pain lasting < 3 months or post-op pain including fracture pain? If YES, then the STOP Act limits (5 days if acute or 7 days if post-op/fracture) apply. STOP ACT exceptions below: Answer: Yes ??? diclofenac (VOLTAREN) 75 MG EC tablet Sig: Take 1 tablet (75 mg total) by mouth 2 times daily. Dispense: 60 tablet Refill: 2 ??? cyclobenzaprine (FLEXERIL) 10 MG tablet Sig: Take 1 tablet (10 mg total) by mouth 3 (three) times daily as needed for up to 14 days. Dispense: 40 tablet Refill: 0 Follow up: Return if symptoms worsen or fail to improve. Treatment plan fully discussed and agreed upon with patient. All questions were answered. Further details of the clinical visit below: PHYSICAL EXAMINATION: Vitals: Vitals: 07/08/21 1324 BP: 127/76 Pulse: 64 Temp: 97.6 ??F (36.4 ??C) Resp: 20 SpO2: 95% PainSc: 6-Six (moderate) Position: Sitting Physical Exam: Constitutional: No acute distress, Interactive and Obese General: Patient is alert and orientated Head: normocephalic and atraumatic Eyes: EOM-I, conjunctiva and sclera clear ENT: normal mucosa Respiratory: non labored breathing Cardiac: RRR Abdomen: soft, non-distended Extremities: no edema in the lower extremities, +PP Lymph nodes: no lymphadenopathy Skin: no rashes or significant lesions Psychological: The patient's mood is normal, and appropriate for the circumstances.. Pain (Neuro/Musculoskeletal) Physical Exam: Back: tenderness lumbar paraspinal level, Left Education/Counseling: See patient instruction, Please note that risks and benefits of the above prescribed medications were explained. These include (but are not limited to) respiratory depression, sedation, and even . The combination of opioids and benzodiazepines increases the risk of these events, this was discussed with patient. The patient expressed understanding of this. The patient was told to contact our clinic with questions/concerns and to report to the Emergency Room if any concerning symptoms develop. The patient expressed understanding and all questions were answered. Urine Drug Screening is a widely available and familiar form of testing used in order to make informed choices with regard to clinical decision making in chronic pain management patients. Opioid analgesics must be prescribed with discernment and their appropriate use must be assessed periodically. Urine Drug Screening can help track patient compliance, identify substance abuse and misuse, and preventpotentially dangerous drug-drug interactions. Today, an 8- panel point of care immunoassay and screenwas performed in order to accomplish this and to help determine the best course of action for today???s visit. Immunoassay urine drug screening, like all tests, is not without its limitations with regard to specificity and sensitivity. For example, 1) We are unable to detect fentanyl with our currently available immunoassay technology. 2) We are unable to determine the specific medications present and their metabolites within the drug classes. 3) The Opiate class represents morphine, hydrocodone, and hydromorphone. Differentiation between these cannot be determined. 4) Likewise, the Methadone classrepresents methadone and tapentadol. 5) The Oxycodone class represents oxycodone and oxymorphone. The Benzodiazepine class contains all commonly prescribed in that category. Due to these and other limit ations encountered with this form of screening, confirmatory testing may also be deemed to be medically necessary and ordered to assist in making decisions regarding this patient's long-term care Thank you for the opportunity to care for this pleasant patient. Electronically signed by: Stanford Flores MD 07/11/2021 7:36 PM Electronically signed by: Stanford Flores MD 07/11/211937 documented in this encounter Plan of Treatment Not on filedocumented as of this encounter Visit Diagnoses Diagnosis Spondylosis of lumbar region without mye lopathy or radiculopathy - Primary Arthropathy of lumbar facet joint Spondylosis of unspecified site without mention of myelopathy Chronic right-sided low back pain withou t sciatica documented in this encounter Care Teams Assistant Media Buyer Relationship Specialty Start Date End Date Neal Breen MD PCP - General Family Medicine 07/31/18 07/14/[address] [place] [address] documented as of this encounter
--- OUTSIDE RECORDS SUMMARY | 2021-11-30 11:45 | XMS_ITS | Encounter Summary ---
:1955 Author Organization [facility] [place] [address] Care Team Providers Name Role Phone Neal Breen MD Primary Care Provider [phone] Reason for Referral Office Visits (Emergency) - Closed Specialty Diagnoses / Procedures Referred By Contact Refer red To Contact Pain Medicine Diagnoses Arthropathy of lumbar facet joint [facility] [address] [address] [place] [address] Phone: Fax: Referral ID Status Reason Start Date Expiration Date Visits V isits Requested Authorized [id number] Closed Specialty 04/29/2021 04/29/2022 1 1 Services Required Encounter Details Date Type Department Care Team Description 04/29/2021 Orders Only Pain Services - [facility] Arthropathy of lumbar [place] [facility]al facet joint (Primary [address] Dx) [place], [place] [id number] Social History Tobacco Use Types Packs/Day Years [...] myelopathy documented in this encounter Care Teams Legal Records Clerk Relationship Specialty Start Date End Date Neal Breen MD PCP - General Family Medicine 07/31/18 07/14/[address] [place] [id number] documented as of this encounter
--- OUTSIDE RECORDS SUMMARY | 2021-11-30 11:45 | XMS_ITS | Encounter Summary ---
:1955 Author Organization [facility] [place] [address] Care Team Providers Name Role Phone Neal Breen MD Primary Care Provider [phone] Reason for Referral Physical Therapy (Routine) - Closed Specialty Diagnoses / Procedures Referred By Contact Refer red To Contact Physical Therapy Diagnoses Rotator cuff arthropathy of right shoulder Neal Breen [facility] [address] [place] [address] [place] [address] Referral ID Status Reason Start Date Expiration Visits Visits Date Requested Authorized [id number] Closed Evaluation and 03/23/2021 03/23/2022 1 99 Treat Reason for Visit Physical Therapy (Routine) - Closed Specialty Diagnoses / Procedures Referred By Contact Refer red To Contact Physical Therapy Diagnoses Rotator cuff arthropathy of right shoulder Neal Breen [facility] Physicyulissa Littlejohn MD [address] [place], [place] [id number] [place] [address] Referral ID Status Reason Start Date Expiration Visits Visits Date Requested Authorized [id number] Closed Evaluation and 03/23/2021 03/23/2022 1 99 Treat Encounter Details Date Type Department Care Team Description 04/22/2021 Hospital Encounter Adult & Pediatric Kate Rivera Physical Therapy Cullen Rodriguez, PT [address] [address] [phone] Social History Tobacco Use Types Packs/Day Years [...] been in contact with No / Unsure 04/22/2021 12:33 PM EST someone who was confirmed or [...] or older) documented as of this encounter Discharge Instructions Patient InstructionsKate Rivera, PT - 04/22/2021 12:30 PM EST Images from the original note were not included. documented in this encounter Medications at Time of Discharge [...] daily. PRN documented as of this encounter Miscellaneous Notes Therapy Evaluation - Kate Rivera, PT - 04/22/2021 12:30 PM EST Dario Mckeon is a pleasant 65 y/o male presenting to OP PT following referral for acute onset R shoulder pain. Pt states that at the beginning of the season he was helping his partner decorate outside and attempted to sling an extension cord up to second level of home. He reports immediate pain in his R shoulder. He was seen shortly after this by his PCP (on 03/23) who then referred pt to our services. There has been no formal imaging completed. Pt feels he has already improved quite a bit with conservative treatment since referral ordered. Initially he had severe loss of his ROM but has now regained full mobility back. He continues to find relief with use of NSAIDs and voltaren cream. He does still find that repetitive movements of the R shoulder (specifically sweeping/mopping/raking) seem to aggravate his shoulder. He does state that there would be a financial strain with attending appts and if able would like pictures of exercises that he can do at home instead of formally coming to f/u therapy. With objective assessment it was noted that pt posturally had IR position of GHJ with slight scap protract. TTP noted over proximal biceps tendon in groove as well as into pec. General muscular tensionand guarding noted about the entire scapular though only tenderness/tightness reported rather than reproduction of pain. CROM WFL without issue. He was noted to have WFL R shoulder ROM all planes. There was deficits in his shoulder PROM into ER though this was noted bilaterally and without presence ofpain. Only movement that mildly reproduced his sx was full abduction and only reported mild twingeat start of range. He had full 5/5 strength all testing planes though resisted flex and abduction did mildly reproduce sx. With special testing all RC testing (including Drop arm, lift off, empty can, infraspinatus) was (-). Did test (+) for Driver with reported pain in subacromial space. His sx seem more consistent with some form of overuse with recent episode flaring already underlyingdysfunction. Given pt request, he was provided with printed handout of exercises that should help with postural correction, improved soft tissue mobility, and for strength and stability training of hisposterior shoulder girdle. He desires to complete HEP at this time without further scheduled formal sessions. We will hold order. He will call within next month if any issues arise or sx worsen. He wasagreeable with this plan. Electronically signed by: Kate Rivera, PT 04/22/21 [id number] Addendum Note - Kate Rivera, PT - 04/22/2021 12:30 PM EST Encounter addended by: Kate Rivera PT on: 04/22/2021 4:40 PM Actions taken: Flowsheet accepted, Visit diagnoses modified, Charge Capture section accepted documented in this encounter Plan of Treatment Scheduled Referrals Name Type Priority Associated Order Schedule Diagnoses Ambulatory Referral Outpatient Referral Routine Rotator cuff A s Needed for 1 To Adult Physical arthropathy of Occurren geovanna Therapy right shoulder starting 09/2021 until 2 documented as of this encounter Visit Diagnoses Diagnosis Rotator cuff arthropathy of right should er - Primary documented in this encounter Care Teams Brazer Production Line Relationship Specialty Start Date End Date Neal Breen MD PCP - General Family Medicine 07/31/18 07/14/[address] [place] [address] documented as of this encounter
--- OUTSIDE RECORDS SUMMARY | 2021-11-30 11:45 | XMS_ITS | Encounter Summary ---
:1955 Author Organization [facility] [place] [address] Care Team Providers Name Role Phone Neal Breen MD Primary Care Provider [phone] Reason for Visit Reason Comments Follow-up 6 Month F/U w/EKG Encounter Details Date Type Department Care Team Description 02/10/2021 Office Visit Cardiology - Funmilayo Eason (supraven tricular [employer] MD Lenore tachycardia) ([facility]) [address] [address] [place], [place] [phone] Social History Tobacco Use Types Packs/Day Years [...] Sign Reading Time Taken Comments Blood Pressure 132/72 02/10/2021 11:19 AM EDT Pulse 58 02/10/2021 11:19 AM EDT Temperature 36.3 ??C (97.3 ??F) 02/10/2021 11:19 AM EDT Respiratory Rate - - Oxygen Saturation 97% 02/10/2021 11:19 AM EDT Inhaled Oxygen Concentration - - Weight 111.9 kg (246 lb 9.6 oz) 02/10/2021 11:19 AM EDT Height 180.3 cm (5' 11) 02/10/2021 11:19 AM EDT Body Mass Index 34.39 02/10/2021 11:19 AM EDT documented in this encounter Functional Status Functional [...] documented as of this encounter Progress Notes Funmilayo Eason MD - 02/10/2021 11:15 AM EDT Problem List: 1. SVT- R atrial foci - s/p AFL ablation but unsuccessful AT ablation A. Controlled on flecainide B. Negative nuclear perfusion scan 04/24/2015 2. DM2 3. OA s/p TKA 4. 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 albuterol 90 mcg/actuation inhaler Inhale 1 puff into the lungs every 6 (six) hours as needed for Wheezing. ??? atorvastatin (LIPITOR) 20 MG tablet TAKE [...] MOUTH TWICE DAILY 180 tablet 3 ??? fluticasone propionate (FLONASE) 50 mcg/actuation nasal spray 2 sprays by Nasal route 2 times daily. ??? ipratropium (ATROVENT) 21 mcg (0.03 %) [...] tab PO daily 180 tablet 5 ??? multivitamin capsule Take 1 capsule by mouth daily. ??? naproxen (NAPROSYN) 500 MG tablet Take 1 tablet (500 mg total) by mouth 2 times daily. PRN 180 tablet 5 No current facility-administered medications on file prior to visit. Interval History: Mr. Mckeon returns for SVT. He hasn't had recurrence of symptoms on flecainide. He denies palpitations, lightheadedness, syncope, CP, dyspnea, edema or orthopnea. He is compliant with meds. Physical Exam: BP 132/72 (Site: Left arm, Position: Sitting, BP Cuff Size: Medium) Pulse 58 Temp 97.3 ??F (36.3??C) (Temporal) Ht 1.803 m (5' 11) Wt 111.9 kg (246 lb 9.6 oz) SpO2 97% BMI 34.39 kg/m?? HEENT: Mucous membranes moist, sclerae anicteric Neck: no JVP elevation, no bruits bilaterally Resp: clear to auscultation bilaterally Cardiac: Regular rate and rhythm, no murmurs or gallops GI: Soft, nontender, nondistended, normal bowel sounds EXT: No clubbing, cyanosis, edema, palpable DP 1+ bilaterally Psych: Alert and oriented x3, normal affect Neuro: nonfocal Data Reviewed: EKG today -- sinus w/ adequate intervals Assessment and Plan: 1. SVT -- without recurrence on flecainide. Intervals adequate on EKG today. No anticoagulation needed since no history of AFL or Afib. Disposition: 6 month f/u Electronically signed by: Funmilayo Eason MD 02/10/21 1251 documented in this encounter Miscellaneous Notes Nursing/Ancillary Notes - Rubi Handley CMA - 02/10/2021 11:31 AM EDT I performed an EKG during today's office visit. Electronically signed by: Rubi Handley CMA 02/10/21 1132 documented in this encounter Plan of Treatment Not on filedocumented as of this encounter Procedures Procedure Name Priority Date/Time Associated Comments Diagnosis CARDIOLOGY SCAN 04/01/2021 7:54 AM Result s for this EST procedure are i n the results section. EKG - PERFORMED Routine 02/10/2021 11:32 AM SVT Resul ts for this DURING CLINIC VISIT EDT (supraventricular pro cedure are in tachycardia) (HCC) the resul ts section. documented in this encounter Results CARDIOLOGY SCAN (04/01/2021 7:54 AM EST) Narrative This result has an attachment that is no t available. Default Authenticator Emerson SCANNED DOCUMENTS EKG - PERFORMED DURING CLINIC VISIT (02/10/2021 11:32 AM EDT) Specimen Anatomical Collection Method Collection Time Receive d Time (Source) Location / / Volume Laterality 02/10/2021 11:32 02/10/2021 1:12 AM EDT PM EDT Narrative MUSE - 02/10/2021 1:12 PM EDT Ventricular Rate ? 57 ?BPM ? Atrial Rate ?57 ?BPM ? P-R Interval ? 174 ? ms ? QRS Duration ? 96 ?ms ? Q-T Interval ? 446 ? ms ? QTC ?434 ? ms ? P [place] ? 3 ? degrees ? R [place] ? -36 ? degrees ? T [place] ? 18 ?degrees ? Sinus bradycardia Left axis deviation Possible LVH When compared with ECG of 11-AUG-2020 10 :29, No significant change was found Confirmed by Funmilayo Eason ([id number]) on 1:12:05 PM Procedure Note Funmilayo Eason MD - 02/10/2021For matting of this note might be different from the original. Ventricular Rate 57 BPM Atrial Rate 57 BPM P-R Interval 174 ms QRS Duration 96 ms Q-T Interval 446 ms QTC 434 ms P [place] 3 degrees R [place] -36 degrees T [place] 18 degrees Sinus bradycardia Left axis deviation Possible LVH When compared with ECG of 11-AUG-2020 10 :29, No significant change was found Confirmed by Funmilayo Eason ([id number]) on 1:12:05 PM Funmilayo Eason MD ECG SPECIAL Performing Organization Address City/State/ZIP Code Phon e Number MUSE documented in this encounter Visit Diagnoses Diagnosis SVT (supraventricular tachycardia) (HCC) Other specified cardiac dysrhythmias documented in this encounter Care Teams Intelligence Officer Basic Relationship Specialty Start Date End Date Neal Breen MD PCP - General Family Medicine 07/31/18 07/14/[address] [place] [address] documented as of this encounter
--- OUTSIDE RECORDS SUMMARY | 2021-11-30 11:45 | XMS_ITS | Encounter Summary ---
:1955 Author Organization [facility] [place] [address] Care Team Providers Name Role Phone Neal Breen MD Primary Care Provider [phone] Reason for Visit Reason Onset Date Comments Post-op Phone Call 03/30/2021 Encounter Details Date Type Department Care Team Description 03/30/2021 Telephone Pain Management - Chetna Max P ost-op Phone Call [address] [place] [address] [id number] Social History Tobacco Use Types Packs/Day Years [...] this encounter Miscellaneous Notes Telephone Encounter - Ibeth Villanueva - 03/31/2021 9:22 AM EST Procedure scheduled Telephone Encounter - Julissa Rodarte MD - 03/30/2021 12:57 PM EST Order placed for repeat procedure L4-S1 Lumbar MBB #2/2, thank you Electronically signed by: Julissa Rodarte MD Resident 03/30/21 1258 Telephone Encounter - Chetna Max LPN - 03/30/2021 12:29 PM EST Patient is post procedure Right Lumbar L4/5 and L5/S1 Patient pain reduction post op hours 0-6: 60%: Patient reports >60% improvement with medial branch blocks: Case requests have not been placed. Will forward to mid-level or MD provider to place case requests per protocol and forward to scheduling department to contact patient to schedule. Electronically signed by: Chetna Max LPN 03/30/21 1230 documented in this encounter Plan of Treatment Not on filedocumented as of this encounter Visit Diagnoses Not on filedocumented in this encounter Care Teams Microsoft Crm Developer Relationship Specialty Start Date End Date Neal Breen MD PCP - General Family Medicine 07/31/18 07/14/[address] [place] [address] documented as of this encounter
--- OUTSIDE RECORDS SUMMARY | 2021-11-30 11:45 | XMS_ITS | Encounter Summary ---
:1955 Author Organization [facility] [place] [address] Care Team Providers Name Role Phone Neal Breen MD Primary Care Provider [phone] Encounter Details Date Type Department Care Team Description 04/28/2021 Hospital Encounter Diagnostic Imaging - Nuria Flores MD [address] [place] [address] [place], [place] [phone] (Wo rk) Social History Tobacco Use [...] Diagnosis Comme nts FL FLUOROSCOPY BY Routine 04/28/2021 11:18 Arthropathy of Resu lts for this NON RAD < 1 HOUR AM EST lumbar facet joint proce dure are in the results section. documented in this encounter Results FL FLUOROSCOPY BY NON RAD < 1 HOUR (04/28/2021 11:18 AM EST) Specimen (Source) Anatomical Location Collection Method / Collectio n Time Received Time / Laterality Volume Narrative [facility] - 04/28/2021 11:18 AM EST This exam was automatically finalized an d will not be resulted. Stanford Flores MD IMG FLUOROSCOPY ORDERABLES Performing Organization Address City/State/ZIP Code Phon e Number [facility] documented in this encounter Visit Diagnoses Diagnosis Arthropathy of lumbar facet joint Spondylosis of unspecified site without mention of myelopathy documented in this encounter Care Teams Representative Government Relations Relationship Specialty Start Date End Date Neal Breen MD PCP - General Family Medicine 07/31/18 07/14/[address] [place] [address] documented as of this encounter
--- OUTSIDE RECORDS SUMMARY | 2021-11-30 11:45 | XMS_ITS | Encounter Summary ---
:1955 Author Organization [facility] [place] [address] Care Team Providers Name Role Phone Neal Breen MD Primary Care Provider [phone] Encounter Details Date Type Department Care Team Description 04/22/2021 Travel Social History Tobacco Use Types Packs/Day [...] on filedocumented in this encounter Care Teams Employment Programs Analyst Relationship Specialty Start Date End Date Neal Breen MD PCP - General Family Medicine 07/31/18 07/14/[address] [place] [address] documented as of this encounter
--- OUTSIDE RECORDS SUMMARY | 2021-11-30 11:45 | XMS_ITS | Encounter Summary ---
:1955 Author Organization [facility] [place] [address] Care Team Providers Name Role Phone Neal Breen MD Primary Care Provider [phone] Reason for Referral Physical Therapy (Routine) - Closed Specialty Diagnoses / Procedures Referred By Contact Refer red To Contact Physical Therapy Diagnoses Rotator cuff arthropathy of right shoulder Neal Breen, [facility] [place] [facility] [address] [place] [address] [place] [address] Referral ID Status Reason Start Date Expiration Visits Visits Date Requested Authorized [id number] Closed Evaluation and 03/23/2021 03/23/2022 1 99 Treat Reason for Visit Reason Comments Follow-up Shoulder Pain Encounter Details Date Type Department Care Team Description 03/23/2021 Office Visit [facility] Neal Breen Rotator cuff arthropathy of right shoulder (Primary Dx); Network Family Miguel MD Type 2 diabetes mellitus with hyperglyce jackelyn, without long-term current use of insulin (HCC); Medicine - [address] Anejaculation [address] [place] [phone] Social History Tobacco Use Types Packs/Day Years [...] Sign Reading Time Taken Comments Blood Pressure 139/89 03/23/2021 11:15 AM EST Pulse 57 03/23/2021 11:15 AM EST Temperature 36.7 ??C (98 ??F) 03/23/2021 11:15 AM EST Respiratory Rate 20 03/23/2021 11:15 AM EST Oxygen Saturation 97% 03/23/2021 11:15 AM EST Inhaled Oxygen Concentration - - Weight 111.8 kg (246 lb 6 oz) 03/23/2021 11:15 AM EST Height 180.3 cm (5' 11) 03/23/2021 11:15 AM EST Body Mass Index 34.36 03/23/2021 11:15 AM EST documented in this encounter Functional Status Functional [...] documented as of this encounter Progress Notes Neal Breen MD - 03/23/2021 11:00 AM EST Chief Complaint Patient presents with ??? Follow-up ??? Shoulder Pain HPI Comes in for routine follow-up. He notes he is having some pain in his right shoulder that he thinks may be rotator cuff due to its similarity to previous issues with the left. He complains of significant pain on abduction greater than 90 degrees.. He has been using Voltaren gel and naproxen which both help some He wants to check his A1c today for his diabetes He complains of an ejaculation with climax which started not long after he had a lithotripsy recently. No blood in urine or hematospermia ROS -As noted in HPI Past Medical History: Diagnosis Date ??? Acute CVA (cerebrovascular accident) (HCC) 09/16/2017 ??? Arthritis ??? Back pain ??? 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 Cerebral brain hemorrhage (HCC) ??? Diabetes mellitus (HCC) ??? Hyperlipemia ??? Kidney stones ??? MARTA (obstructive sleep apnea) ??? Ruptured appendix ??? Tachycardia Exam Vitals: 03/23/21 1115 BP: 139/89 Pulse: 57 Temp: 98 ??F (36.7 ??C) Resp: 20 SpO2: 97% Body mass index is 34.36 kg/m??. Constitutional: Patient appears well-developed and well-nourished. No distress. Obese Eyes: Conjunctivae are normal. Right eye exhibits no discharge. Left eye exhibits no discharge. No scleral icterus. Pulmonary/Chest: Effort normal. No respiratory distress. MSK: AROM of right shoulder limited due to discomfort Neurological: Alert. Skin: No rash noted. Not diaphoretic Assessment 1. Rotator cuff arthropathy of right shoulder Ambulatory Referral To Adult Physical Therapy 2. Type 2 diabetes mellitus with hyperglycemia, without long-term current use of insulin ([facility]) Hemoglobin A1C 3. Anejaculation Plan 1. Rotator cuff arthropathy. Advised to only use naproxen or Voltaren, not to use multiple NSAIDs. He may add on OTC acetaminophen 1 g p.o. 3 times daily as needed. 2. DM2-chronic and stable. A1c today for monitoring. 3. Anejaculation-discussed this may be due to some inflammation related to his recent procedure. Discussed if he has any discomfort or the symptom persists he should discuss this with his urologist This document was created using the aid of voice recognition Vimessa dictation software. Electronically signed by: Neal Breen MD 03/24/21 1630 documented in this encounter Plan of Treatment Scheduled Referrals Name Type Priority Associated Diagnoses Order S [facility] Ambulatory Referral Outpatient Referral Routine Rotator cuff E xpected: To Adult Physical arthropathy of right , Therapy shoulder Expires: 03/23/2022 documented as of this encounter Results Hemoglobin A1C (03/23/2021 11:28 AM EST) P athologist Signature HEMOGLOBIN A1C 5.7 <5.8 % 03/23/2021 [facility] 5:45 PM [facility] Alekto Comment: The reference ranges follow the ADA sanya mmendations: ?- Normal A1c: Less than 5.8% ?- Prediabetes range A1c: 5.8-6.4% ?- Diabetes range A1c: Above 6.4% eAG 117 MG/DL 03/23/2021 5:45 PM EST [facility] eAG Comment 03/23/2021 5:45 PM EST [facility] Comment: The ADA has supported the calcu lation of Average Glucose (eAG) based on HbA1c measurements. However, the eAG ref lects the average glycemic level over 2-3 months and it would not necessarily matc h single glucose laboratory measurements, nor reflect changes in the daily glucose con centration. A1c Comment 03/23/2021 5:45 PM EST [facility] Comment: Presence of heterozygote variants in pat [...] Organization Address City/State/ZIP Code Phon e Number [facility]# [id number] [place] [address] [facility] documented in this encounter Visit Diagnoses Diagnosis Rotator cuff arthropathy of right should er - Primary Type 2 diabetes mellitus with hyperglyce jackelyn, without long-term current use of insulin (HCC) Anejaculation Other specified disorder of male genital organs documented in this encounter Care Teams Plug Overwrap Machine Tender Relationship Specialty Start Date End Date Neal Breen MD PCP - General Family Medicine 07/31/18 07/14/[address] [place] [address] documented as of this encounter
--- OUTSIDE RECORDS SUMMARY | 2021-11-30 11:45 | XMS_ITS | Encounter Summary ---
:1955 Author Organization [facility] [place] [address] Care Team Providers Name Role Phone Neal Breen MD Primary Care Provider [phone] Encounter Details Date Type Department Care Team Description 06/02/2021 Travel Social History Tobacco Use Types Packs/Day [...] on filedocumented in this encounter Care Teams Junior Account Executive Relationship Specialty Start Date End Date Neal Breen MD PCP - General Family Medicine 07/31/18 07/14/[address] [place] [address] documented as of this encounter
--- OUTSIDE RECORDS SUMMARY | 2021-11-30 11:45 | XMS_ITS | Encounter Summary ---
:1955 Author Organization [facility] [place] [address] Care Team Providers Name Role Phone Neal Breen MD Primary Care Provider [phone] Encounter Details Date Type Department Care Team Description 02/09/2021 Orders Only Cardiology - [place] [facility] SVT (supraventricular [address] [place], FRONT MAKER tachycardia) (HCC) [facility] (Primary Dx) [id number] [address] [phone] [place] [address] Social History Tobacco Use Types Packs/Day [...] on filedocumented as of this encounter Results EKG - PERFORMED DURING CLINIC VISIT (02/10/2021 [...] ? QTC ?434 ? ms ? P [place] ? 3 ? degrees ? R [place] ? -36 ? degrees ? T [place] ? 18 ?degrees ? Sinus bradycardia Left axis deviation Possible LVH When compared with ECG of 11-AUG-2020 10 :, No significant change was found Confirmed by Funmilayo Eason ([id number]) on 1:12:05 PM Procedure Note Funmilayo Eason MD - 02/10/2021For matting of this note might be different from the original. Ventricular Rate 57 BPM Atrial Rate 57 BPM P-R Interval 174 ms QRS Duration 96 ms Q-T Interval 446 ms QTC 434 ms P [place] 3 degrees R [place] -36 degrees T [place] 18 degrees Sinus bradycardia Left axis deviation Possible LVH When compared with ECG of 11-AUG-2020 10 :, No significant change was found Confirmed by Funmilayo Eason ([id number]) on 1:12:05 PM Funmilayo Eason MD ECG SPECIAL Performing Organization Address City/State/ZIP Code Phon e Number MUSE documented in this encounter Visit Diagnoses Diagnosis SVT (supraventricular tachycardia) (HCC) - Primary Other specified cardiac dysrhythmias SVT (supraventricular tachycardia) (HCC) Other specified cardiac dysrhythmias documented in this encounter Care Teams Clin Nurse Relationship Specialty Start Date End Date Neal Breen MD PCP - General Family Medicine 07/31/18 07/14/[address] [place] [address] documented as of this encounter
--- OUTSIDE RECORDS SUMMARY | 2021-11-30 11:45 | XMS_ITS | Encounter Summary ---
:1955 Author Organization [facility] [place] [address] Care Team Providers Name Role Phone Neal Breen MD Primary Care Provider [phone] Encounter Details Date Type Department Care Team Description 03/29/2021 Hospital Encounter Diagnostic Imaging - Nuria Flores MD [address] [place] [id number] [place], [place] [phone] (Wo rk) Social History Tobacco Use [...] on filedocumented in this encounter Care Teams Cone Machine Operator Relationship Specialty Start Date End Date Neal Breen MD PCP - General Family Medicine 07/31/18 07/14/[address] [place] [address] documented as of this encounter
--- OUTSIDE RECORDS SUMMARY | 2021-11-30 11:45 | XMS_ITS | Clinical Summary ---
:1955 Author Organization [facility] [place] [address] Care Team Providers Name Role Phone Pcp, Patient Does Not Have Primary Care Provider [phone] Allergies Active Allergy Reactions Severity Noted Date Comments Ciprofloxacin Other (See Comments) Medium 04/02/2019 Sever yeast infection Codeine Phosphate Urticaria / Hives Medium (ALLERGY) Morphine Anaphylaxis High 01/31/2016 (ALLERGY) Dextromethorphan-Quinidine Diarrhea 09/16/2020 W hen medication was increased to BID Pollen Extracts Other (See Comments) 09/16/2017 Runn y nose Sulfamethoxazole Anaphylaxis High 01/31/2016 (ALLERGY) Sulfasalazine Itching / Pruritis High 01/09/2016 (ALLERGY/intolerance ) Medications Medication Sig Dispensed Refills Start Date End Date Status donepezil (ARICEPT) 10 Take 10 mg by 0 Active MG tablet mouth in the morning and at bedtime. memantine 28 mg CSpX Take 28 mg by 0 Active mouth daily. flecainide (TAMBOCOR) TAKE 1 TABLET(100 180 tablet 3 Active 100 MG tablet MG) BY MOUTH TWICE DAILY metoPROLOL succinate 1 tab PO daily 180 tablet 5 09/16/2020 Active (TOPROL-XL) 50 MG 24 hr tablet lisinopriL Take 1 tablet 90 tablet 5 09/16/2020 Acti ve (PRINIVIL,ZESTRIL) 2.5 (2.5 mg total) by MG tablet mouth daily. ipratropium (ATROVENT) USE 2 SPRAYS IN 30 mL 1 12/28/2020 Active 21 mcg (0.03 %) nasal EACH NOSTRIL spray THREE TIMES DAILY metFORMIN ER TAKE 1 TABLET(500 180 tablet 5 03/30/2021 Active (GLUCOPHAGE-XR) 500 MG MG) BY MOUTH extended release TWICE DAILY WITH tablet MEALS buPROPion SR TAKE 1 TABLET(100 180 tablet 1 06/16/2021 Active (WELLBUTRIN SR) 100 MG MG) BY MOUTH 12 hr tablet TWICE DAILY diclofenac (VOLTAREN) Take 1 tablet (75 60 tablet 2 07/08/2021 Active 75 MG EC tablet mg total) by mouth 2 times daily. atorvastatin (LIPITOR) TAKE 1 TABLET(20 90 tablet 3 09/14/2021 Active 20 MG tablet MG) BY MOUTH DAILY Active Problems Problem Noted Date Compression fracture of L1 lumbar vertebra 03/02/2021 Positive colorectal cancer screening using Cologuard t est 04/20/2020 Moderate obstructive sleep apnea 11/20/2019 Hyperlipidemia associated with type 2 diabetes mellitu s 09/12/2019 Mood disorder 04/04/2019 Nontraumatic complete tear of left rotator cuff 2018 Moderate episode of recurrent major depressive disorde r 12/14/2018 Tendinopathy of left rotator cuff 06/28/2018 Primary osteoarthritis of right knee 11/02/2017 Mixed hyperlipidemia 09/18/2017 Spondylosis without myelopathy or radiculopathy, lumba r region 09/13/2017 Overview: Added automatically from request for rony agusto [id number] Arthropathy of lumbar facet joint 08/09/2017 Overview: Added automatically from request for rony agusto [id number] Effusion of knee 08/07/2017 History of partial knee replacement 05/10/2017 Spondylosis of lumbosacral region without myelopathy o r radiculopathy 04/25/2017 Overview: Added automatically from request for rony agusto [id number] S/P left unicompartmental knee replacement 11/15/2016 Type 2 diabetes mellitus with hyperglycemia 10/17/2016 Hypertension associated with diabetes 10/17/2016 Tachycardia 10/17/2016 Arthritis of knee 08/26/2016 DDD (degenerative disc disease), lumbar 08/17/2016 Spondylosis of lumbar region without myelopathy or rad iculopathy 08/17/2016 Chronic right-sided low back pain without sciatica Primary osteoarthritis of left knee 07/28/2016 Primary osteoarthritis of both knees 04/25/2016 Left knee pain 04/25/2016 Status post left partial knee replacement Decreased range of motion of left knee Weakness of both lower extremities Gait abnormality Joint stiffness of spine Resolved Problems Problem Noted Date Resolved Date Encounter for screening colonoscopy 04/20/2020 06/0 05/2020 Dysuria 03/11/2019 03/29/2019 Overview: Added automatically from request for rony liz [id number] Acute CVA (cerebrovascular accident) 09/16/201707/2017 Immunizations Name Administration Dates Next Due Flu Vaccine 65yr Or Older (HIGH DOSE QUAD-FLUZONE) Inactivated Quadrivalent Flu Vaccine 6mo and up (FLUZONE/FLULAVAL/FLUARIX VIAL 2019, 01/15/2019 OR SYRINGE) INACTIVATED QUADRAVALENT Family History Medical History Relation Comments Alcohol abuse Brother Alzheimer's disease Father Diabetes Father Heart disease Father Alzheimer's disease Maternal Aunt Alzheimer's disease Maternal Grandmother Alzheimer's disease Mother Heart disease Mother Hypertension Mother Kidney disease Mother Cancer Paternal Grandfather Cancer Paternal Grandmother Stroke Neg Hx Relation Status Comments Brother Alive Father Maternal Aunt Maternal Grandfather Maternal Grandmother Mother Alive Paternal Grandfather colon cancer Paternal Grandmother lung cancer Sister Alive Social History Tobacco Use Types Packs/Day Years Used Date Former Smoker Cigarettes Quit: 04/16/19 89 Smokeless Tobacco: Former User Q uit: 2005 Tobacco Cessation: Counseling Given: No Alcohol Use Standard Drinks/Week Comments Yes 0 [...] Assigned at Date Recorded Not on file Last Filed Vital Signs Vital Sign Reading Time Taken Comments Blood Pressure 127/76 07/08/2021 1:24 PM EDT Pulse 64 07/08/2021 1:24 PM EDT Temperature 36.4 ??C (97.6 ??F) 07/08/2021 1:24 PM EDT Respiratory Rate 20 07/08/2021 1:24 PM EDT Oxygen Saturation 95% 07/08/2021 1:24 PM EDT Inhaled Oxygen Concentration - - Weight 111.8 kg (246 lb 6 oz) 03/23/2021 11:15 AM EST Height 180.3 cm (5' 11) 03/23/2021 11:15 AM EST Body Mass Index 34.36 03/23/2021 11:15 AM EST Plan of Treatment Health Maintenance Due Date Last Done Comments FOOT EXAM 09/16/2021 09/16/2020, 09/16/2020, 08/01/19 19 URINE MICROALBUMIN 09/16/2021 09/16/2020, 09/12/2019, 07/31 HEMOGLOBIN A1C 09/21/2021 03/23/2021, 09/16/2020, 03/16/20 20, Additional history exists NCCSRS 10/08/2021 07/08/2021 OPHTHALMOLOGY EXAM 10/12/2021 10/12/2020, 05/14/2019 CMP or BMP 10/15/2021 10/15/2020, 10/01/2020, 09/17/19 21, Additional history exists INFLUENZA VACCINE 11/15/2021 02/09/2021, 03/16/2020, 2018 COLONOSCOPY 04/28/2030 04/28/2020, 03/16/2020 (Declined ) Medical Devices Implanted Type Area Public Health Specialist Device Shelf Model / Identifier Expiration Date Ser ial / Lot Cement Simplex Hv With Gentamicin - [id number] - [id number] Other Left: TEO ORTHO 08/14/2017 [id number] / Implanted: Qty: 1 on 11/01/2016 by Miguelito Manuel MD at [facility] AMP[facility] Knee / [id number] Ranjit Restoris Mck Onlay Tibial Baseplate Size 6 Ref#[id number] Left: RANJIT SURGICAL 05/23/2021 [id number] / Implanted: Qty: 1 on 11/01/2016 by Miguelito Manuel MD at [facility] Knee / [id number] Advance Directives Latest Code Status on File Code Status Date Activated Date Inactivated Comments Full Code 09/18/2017 2:02 PM 01/03/2019 3:10 PM Full Code 09/16/2017 12:47 PM 09/18/2017 2:02 PM Full Code 11/02/2016 11:36 AM 04/06/2017 12:07 PM Care Teams Sheet Metal Layout Mechanic Relationship Specialty Start Date End Date Pcp, Patient Does Not Have PCP - General Family Medicine 07/15/21
--- OUTSIDE RECORDS SUMMARY | 2021-11-30 11:45 | XMS_ITS | Encounter Summary ---
:1955 Author Organization [facility] [place] [address] Care Team Providers Name Role Phone Neal Breen MD Primary Care Provider [phone] Reason for Visit Reason Onset Date Comments Post-op Phone Call 04/29/2021 Encounter Details Date Type Department Care Team Description 04/29/2021 Telephone Pain Management - Chetna Max P ost-op Phone Call [address] [place] [address] [phone] Social History Tobacco Use Types Packs/Day Years [...] this encounter Miscellaneous Notes Telephone Encounter - Sathish North MD - 04/29/2021 4:50 PM EST Ordered Electronically signed by: Sathish North MD Resident 04/29/21 1650 Telephone Encounter - Chetna Max LPN - 04/29/2021 1:00 PM EST Patient is post procedure Bilateral Lumbar L4/5 and L5/S1 Patient pain reduction post op hours 0-6: 100%: Patient reports 100% improvement with medial branch blocks: Case requests have not been placed. Will forward to mid-level or MD provider to place case requests per protocol and forward to scheduling department to contact patient to schedule. Electronically signed by: Chetna Max LPN 04/29/21 1302 documented in this encounter Plan of Treatment Not on filedocumented as of this encounter Visit Diagnoses Not on filedocumented in this encounter Care Teams Earth Auger Operator Relationship Specialty Start Date End Date Neal Breen MD PCP - General Family Medicine 07/31/18 07/14/[address] [place] [address] (work) documented as of this encounter
--- OUTSIDE RECORDS SUMMARY | 2021-11-30 11:46 | XMS_ITS | Encounter Summary ---
:1955 Author Organization [facility] [place] [address] Care Team Providers Name Role Phone Neal Breen MD Primary Care Provider [phone] Encounter Details Date Type Department Care Team Description 11/23/2020 Travel Social History Tobacco Use Types Packs/Day Years Used Date Former Smoker Cigarettes Quit: 04/16/19 89 Smokeless Tobacco: Former User Q uit: 04/21/1994 Alcohol Use Standard Drinks/Week Comments Yes 0 [...] month, have you been in contact with Yes 11/23/2020 11:42 AM EDT someone who was confirmed or [...] Diagnoses Not on filedocumented in this encounter Additional Health Concerns Infection Onset Date Last Indicated Resolved Time R/O COVID-19 11/23/2020 11/23/2020 11/24/2020 7:42 PM EDT documented as of this encounter Care Teams Showcase Trimmer Relationship Specialty Start Date End Date Neal Breen MD PCP - General Family Medicine 07/31/18 07/14/[address] [place] [address] documented as of this encounter
--- OUTSIDE RECORDS SUMMARY | 2021-11-30 11:46 | XMS_ITS | Encounter Summary ---
:1955 Author Organization [facility] [place] [address] Care Team Providers Name Role Phone Neal Breen MD Primary Care Provider Reason for Visit Auth/Cert Specialty Diagnoses / Procedures Referred By Contact Refer red To Contact Diagnoses Calculus of ureter ureteral stone Procedures ND FRAGMENT KIDNEY STONE/ [facility] Referral ID Status Reason Start Date Expiration Date Visits Requ ested Visits Authorized [id number] 1 1 Encounter Details Date Type Department Care Team Description 01/15/2021 Surgery Surgical Services - Fady Crane MD [facility] [address] [address] [place] [address] [place] [address] [address] [phone] [place] [phone] (Wo rk) Surgery Details Date/Time Status Location OR Service Patient Class Case Case Trauma Class Type Case? 01/15/21 1:18 [facility] 1 Procedure LRB Anes Op Region Wound Class Commen ts [facility] Left Conscious Sedation Bladder Clean Contaminate d Surgeon Surgeon Role Service Panel Fady Ndiaye MD Primary Urology 1 documented in this encounter Social History Tobacco Use Types Packs/Day Years [...] been in contact with No / Unsure 01/15/2021 12:35 PM EDT someone who was confirmed or suspected to have Coronavirus / COVID-19? documented as of this encounter Last Filed Vital Signs Vital Sign Reading Time Taken Comments Blood Pressure 97/59 01/15/2021 12:31 PM EDT Pulse 66 01/15/2021 12:31 PM EDT Temperature 36.7 ??C (98 ??F) 01/15/2021 12:31 PM EDT Respiratory Rate 18 01/15/2021 12:31 PM EDT Oxygen Saturation 95% 01/15/2021 12:31 PM EDT Inhaled Oxygen Concentration - - Weight 105.1 kg (231 lb 9.6 oz) 01/15/2021 12:31 PM EDT Height 177.8 cm (5' 10) 01/15/2021 12:31 PM EDT Body Mass Index 33.23 01/15/2021 12:31 PM EDT documented in this encounter Functional Status [...] 09/16/2020 (TOPROL-XL) 50 MG 24 hr tablet albuterol 90 mcg/actuation Inhale 1 puff into 0 02/10/2021 inhaler the lungs every 6 (six) hours as needed for Wheezing. atorvastatin (LIPITOR) 20 TAKE 1 TABLET(20 90 [...] as needed for up to 10 days. fluticasone propionate 2 sprays by Nasal 0 02/10/2021 (FLONASE) 50 mcg/actuation route 2 times nasal spray daily. metFORMIN ER TAKE 1 TABLET(500 180 [...] Name Priority Date/Time Associated Diagnosis Comme nts [facility] 01/15/2021 9:18 PM ureteral stone EDT POCT GLUCOSE Routine 01/15/2021 1:01 PM Results f or this EDT procedure are i n the results section . documented in this encounter Results POCT Glucose (01/15/2021 1:01 PM EDT) [facility] gist Method Time Signature POC GLUCOSE NPO/no NOVA COMMENT enteral feeding GLUCOSE, POC, 97 70 - 99 NOVA NOVA mg/dL Specimen Anatomical Collection Method Collection Time Receive d Time (Source) Location / / Volume Laterality 01/15/2021 1:01 PM 1:04 EDT PM EDT Fady Ndiaye MD POCT ORDERABLES - DEVICE Performing Organization Address City/State/ZIP Code Phon e Number NOVA documented in this encounter Visit Diagnoses Not on filedocumented in this encounter Administered Medications Inactive Administered Medications - up to 3 most recent administrations Medication Order MAR Action Action Date Dose Rate Site diazePAM (VALIUM) tablet 10 mg Given 01/15/2021 2:59 PM EDT 10 mg 10 mg Once, Oral, On Mon01/15/21 at 1400, For 1 dose diphenhydrAMINE (BENADRYL) capsule 50 mg Given 01/15/2021 2:59 PM EDT 50 mg 50 mg Once, Oral, On Mon01/15/21 at 1400, For 1 dose documented in this encounter Active and Recently Administered Medications Times are shown in EDT. Scheduled Medication Order 01/13/2021 01/14/2021 01/15/2021 diazePAM (VALIUM) tablet 10 mg (COMPLETED) 1459 (Given - Provider: Robina Rogers, BERNARD) 10 mg Once, Oral, On Mon01/15/21 at 1400, For 1 dose diphenhydrAMINE (BENADRYL) capsule 50 mg (COMPLETED) 1459 (Given - Provider: Robina Rogers, BERNARD) 50 mg Once, Oral, On Mon01/15/21 at 1400, For 1 dose documented in this encounter Care Teams Heat Engineering Teacher Relationship Specialty Start Date End Date Neal Breen MD PCP - General Family Medicine 07/31/18 07/14/[address] [place] [id number] documented as of this encounter
--- OUTSIDE RECORDS SUMMARY | 2021-11-30 11:46 | XMS_ITS | Encounter Summary ---
:1955 Author Organization [facility] [place] [address] Care Team Providers Name Role Phone Neal Breen MD Primary Care Provider [phone] Reason for Visit Reason Comments Cough productive at times, runny n ose. sts has symptoms for several months but sts symptoms are worse for the l ast two days Encounter Details Date Type Department Care Team Description 06/28/2020 [facility] [address] August Dempsey MD [address] [place] [address] [place] [address] (Wo rk) Social History Tobacco Use Types Packs/Day Years Used Date Former Smoker Cigarettes Quit: 04/16/19 89 Smokeless Tobacco: Former User Q uit: 04/21/1994 Alcohol Use Standard Drinks/Week Comments Yes 0 (1 standard drink = 0.6 oz pure alcoho l) occasional beer Alcohol Habits Answer Date Recorded How often do you have a drink containing alcohol? Monthly or less 04/22/2020 How many drinks containing alcohol do you have on a 1 or 2 04/22/2020 typical day when you are drinking? How often do you have six or more drinks on one Not asked occasion? Comment: occasional beer 09/16/2017 Sex Assigned at Date Recorded Not on file COVID-19 Exposure Response Date Recorded In the last month, have you been in contact with No / Unsure 06/28/2020 2:09 PM EDT someone who was confirmed or suspected to have Coronavirus / COVID-19? documented as of this encounter Last Filed Vital Signs Vital Sign Reading Time Taken Comments Blood Pressure 129/74 06/28/2020 2:09 PM EDT Pulse 66 06/28/2020 2:09 PM EDT Temperature 37.3 ??C (99.2 ??F) 06/28/2020 2:09 PM EDT Respiratory Rate 20 06/28/2020 2:09 PM EDT Oxygen Saturation 96% 06/28/2020 2:09 PM EDT Inhaled Oxygen Concentration - - Weight 110.9 kg (244 lb 8 oz) 06/28/2020 2:09 PM EDT Height - - Body Mass Index 35.08 05/28/2020 1:21 PM EST documented in this encounter Functional Status [...] documented as of this encounter Discharge Instructions Discharge InstructionsAnnabellaxandra Rosalie Ingram PA-C - 06/28/2020 3:36 PM EDT Viral syndrome and Novel Coronavirus (COVID-19) 12/02/2019 [facility] COVID Hotline: 0-988-23PHRGT You have a viral illness which can have symptoms like muscle aches, fevers, chills, runny nose, cough, sneezing, sore throat, vomiting or diarrhea. One of the viruses that can cause this is SARS- CoV-2, the virus that causes COVID-19, also known as the novel coronavirus. You could also have a different viral infection such as the common cold or flu. Most patients with viral illness including COVID-19have mild symptoms and recover on their own. Resting, staying hydrated, and sleeping are helpful. Today we think you are well enough to go home and treat your symptoms with oral liquids, and medicine for fevers, cough, and pain. If we did a test for COVID-19 the results may not be available for several days. The fastest way to get your result is through your [employer] Account. If you don't already have a [employer] account, there are directions to sign up at the end of these discharge instructions. We will only call you with the result if it is positive or if you are unable to sign up for [employer]. Please DO NOT CONTACT THE EMERGENCY DEPARTMENT OR CLINIC FOR RESULTS OF THIS TEST. Please follow the precautions below: Stay home for at least 10 days after your symptoms began OR for 24 hours after your fever ends, whichever takes longer. ? If people live with you they should also stay home and avoid contact with others for 14 days.? If your test is negative you no longer have to isolate at home, but you should stay home if you are feeling sick. You may have the flu or a cold. ISOLATION GUIDANCE FOR POSSIBLE COVID Most people with cough and fever have an illness caused by a virus. One is COVID-19. Not all people with these infections are being tested for the virus that causes COVID-19. People who might have COVID but are not being tested should still try to prevent the spread of the infection. These instructions are modified recommendations from the [place] Department of Health and Human Services. People who might have COVID-19 should follow the instructions below until a doctor or health department says they can stop. Stay home unless you need to see a doctor Stop doing things outside your home except for getting medical care. Do not go to work, school, or public areas; and do not use public transportation or taxis. Call ahead before visiting the doctor Before your appointment, call the doctor's office and tell them about your symptoms. This will help them take steps to keep other people from getting infected. Keep track of your symptoms Symptoms are the things you feel, like fever or trouble breathing. Go to your doctor or the ER if you think you are getting worse, like having more trouble breathing. Call the doctor's office and tell them about your symptoms. This will help them take steps to keep other people from getting sick. Wear a face mask You should wear a face mask that covers your nose and mouth when you are in the same room with otherpeople and when you visit the doctor's office. People who live with you or visit you should also wear a face mask when they are in the same room with you. Separate yourself from other people in your home You should stay in a different room from other people in your home. You should stay separate from your family members as much as possible. You should use a separate bathroom if you can. Avoid sharing things in your house Don't share dishes, drinking glasses, cups, eating utensils, towels, bedding, or other things with people in your home. After using these things please wash them really well with soap and water. Cover your coughs and sneezes Cover your mouth and nose with a tissue when you cough or sneeze, or you can cough or sneeze into your sleeve. Throw used tissues in a trash can that has a bag in it, and immediately wash your hands with soap and water for at least 20 seconds. If you use an alcohol-based hand rub please rub your handstogether for 20 seconds. Wash your hands Wash your hands often and very well with soap and water for at least 20 seconds. If your hands are not visibly dirty you can use an alcohol-based hand local announcer. Don't touch your eyes, nose, or mouth with unwashed hands. Instructions for People Helping Care for Patients with Possible COVID-19 Follow your doctor's instructions Make sure that you understand and can help the patient follow any instructions for care. Provide for the patient's basic needs You should help the patient with basic needs in the home and provide support for getting groceries, prescriptions, and other personal needs. Keep track of the patient's symptoms If they are getting sicker, call his or her doctor. This will help the doctor's office take steps tokeep other people from getting infected. Limit the number of people who have contact with the patient If possible, have only one caregiver for the patient. Other family members should stay in another home or place of residence. If they can't, they should stay in another room and stay from the patient as much as possible. Keep one bathroom JUST for the patient if you can. Only allow visitors if they MUST be in the home. Keep older adults, very young children, and other sick people away from the patient Keep older adults, very young children, and people who have compromised immune systems or chronic health conditions away from the patient. This includes people with chronic heart, lung, or kidney conditions, diabetes, and cancer. Wash your hands often Avoid touching your eyes, nose, and mouth with unwashed hands. Wash your hands often and thoroughly with soap and water for at least 20 seconds. You can use an alcohol-based hand local announcer if soap and water are not available and if your hands are not visibly dirty. Use disposable paper towels to dry your hands. If not available, use dedicated cloth towels and replace them when they become wet. Avoid contamination from face masks and gloves Wear a disposable face mask and gloves whenever you are touching the patient, things in their room or bathroom, or things that can have their body fluid on them, like bedding or dishes, or blood, vomit, urine, or feces (poop). Ensure the mask fits over your nose and mouth tightly, and do not touch it at all while you are wearing it. Throw out disposable facemasks and gloves after using them. Do not reuse. Wash your hands immediately after removing your facemask and gloves. If your personal clothing becomes dirty with a patient's body fluids, carefully remove clothing and launder. Wash your hands after handling dirty clothing. Place all used disposable facemasks, gloves, and other waste in a lined container before disposing them with other household garbage. Remove gloves and wash your hands immediately after handling these items. Do not share dishes, glasses, or other household items with the patient Avoid sharing household items. You should not share dishes, drinking glasses, cups, eating utensils,towels, bedding, or other items with a patient who is confirmed to have, or being evaluated for, COVID-19 infection. After the person uses these items, you should wash them very well with soap and water. Wash laundry thoroughly Immediately remove and wash clothes or bedding that have blood, body fluids, and/or secretions or excretions, such as sweat, saliva, sputum, nasal mucus, vomit, urine, or feces, on them. Wear gloves when handling laundry from the patient. Read and follow directions on labels of laundry or clothing items and detergent. In general, wash and dry with the warmest temperatures recommended on the label. Clean all areas the individual has used Clean all touchable surfaces, such as counters, tabletops, doorknobs, bathroom fixtures, toilets, phones, keyboards, tablets, and bedside tables, every day. Also, clean any surfaces that may have blood, body fluids, and/or secretions or excretions on them. Wear gloves when cleaning surfaces the patient has come in contact with. Use a diluted bleach solution (dilute bleach with 1 part bleach and 10 parts water) or a household disinfectant with a label that says EPA-registered for coronaviruses. To make a bleach solution at home, add 1 tablespoon of bleach to 1 quart (4 cups) of water. For a larger supply, add ?? cup of bleachto 1 gallon (16 cups) of water. Read labels of cleaning products and follow recommendations provided on product labels. Labels contain instructions for safe and effective use of the cleaning product including precautions you should take when applying the product, such as wearing gloves or eye protection and making sure you have goodventilation during use of the product. Remove gloves and wash hands immediately after cleaning. Monitor yourself for signs and symptoms of illness Caregivers and household members are considered close contacts, should monitor their health, and will be asked to limit movement outside of the home as much as possible. If you have additional questions Contact Your Doctor or Healthcare Provider The [facility] website ([email or web address]) The [facility] COVID hotline 010-90COVID Your local health department This guidance is subject to change. For the most up to date guidance, check the the [facility] Department of Health website at [email or web address] AttachmentsThe following attachments cannot be sent through Care Everywhere. Acute Bronchitis (AfterCare(R) Instructions(ER/ED)) (Albanian)documented in this encounter Medications at Time of Discharge Medication Sig Dispensed Refills Start Date End Date donepezil (ARICEPT) 10 MG Take 10 mg by 0 tablet mouth in the morning and at bedtime. flecainide (TAMBOCOR) 100 TAKE 1 TABLET(100 180 tablet 3 MG tablet MG) BY MOUTH TWICE DAILY memantine 28 mg CSpX Take 28 mg by 0 mouth daily. albuterol 90 mcg/actuation Inhale 1-2 puffs 1 each 0 08/11/2020 inhaler into the lungs every 6 (six) hours as needed for Wheezing. atorvastatin (LIPITOR) 20 TAKE 1 TABLET(20 90 tablet 3 10/1509/16/2020 MG tablet MG) BY MOUTH DAILY azithromycin (ZITHROMAX) Take first 2 6 tablet 0 1 07/10/2020 250 MG tabletIndications: tablets together, Bronchitis then 1 every day until finished. buPROPion SR (WELLBUTRIN Take 1 tablet (100 180 tablet 5 10/15/2020 SR) 100 MG 12 hr mg total) by mouth tabletIndications: 2 times daily. depression cyclobenzaprine (FLEXERIL) Take 1 tablet (10 20 tablet 0 07/08/2021 10 MG tablet mg total) by mouth 2 (two) times daily as needed for up to 10 days. fluticasone propionate SHAKE LIQUID AND 16 g 5 020 08/11/2020 (FLONASE) 50 mcg/actuation USE 2 SPRAYS IN nasal sprayIndications: EACH NOSTRIL TWICE Seasonal allergic rhinitis DAILY due to pollen ibuprofen (ADVIL,MOTRIN) Take 200 mg by 0 08/11/2020 200 MG tablet mouth every 6 (six) hours as needed. metFORMIN ER TAKE 1 TABLET(500 180 tablet 5 03/16/202003/30 (GLUCOPHAGE-XR) 500 MG MG) BY MOUTH TWICE extended release tablet DAILY WITH MEALS metoPROLOL succinate TAKE 1 TABLET BY 180 tablet 5 0 09/16/2020 (TOPROL-XL) 50 MG 24 hr MOUTH ONCE DAILY tablet multivitamin capsule Take 1 capsule by 0 03/01/2021 mouth daily. naproxen (NAPROSYN) 500 MG Take 1 tablet (500 180 tablet 5 1 06/05/2018 06/30/2020 tablet mg total) by mouth 2 times daily. PRN documented as of this encounter ED Notes Cami Ingram PA-C - 06/28/2020 2:21 PM EDT History Chief Complaint Patient presents with ??? Cough productive at times, runny nose. sts has symptoms for several months but sts symptoms are worse forthe last two days HPI Patient is a 64-year-old male who presents to the emergency department with runny nose and cough. Hestates that he has had the symptoms for 3 days. He has had some squeaking/wheezing noises from his lungs when he is breathing at night. Patient states he does have a runny nose. Patient denies history of lung disease asthma, tobacco abuse. He did smoke up until the early 1980s when he quit. He is taking Tylenol at home. Is not taking any other medicines. He denies nausea, vomiting, diarrhea, abdominal pain, chest pain, shortness of breath, dizziness and syncope. Past Medical History: Diagnosis Date ??? Acute CVA (cerebrovascular accident) (HCC) 09/16/2017 ??? Arthritis ??? Back pain ??? 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 Cerebral brain hemorrhage (HCC) ??? Diabetes mellitus (HCC) ??? Hyperlipemia ??? MARTA (obstructive sleep apnea) ??? Ruptured appendix ??? Tachycardia Past Surgical History: Procedure Laterality Date ??? APPENDECTOMY ??? COLONOSCOPY ??? COLONOSCOPY N/A 04/28/2020 Procedure: COLONOSCOPY; Surgeon: Mckay Sanz MD; Location: [facility]; Service: Gastroenterology; Laterality: N/A; ??? CYSTOSCOPY W/ INTERNAL URETHROTOMY N/A 03/29/2019 Procedure: CYSTOSCOPY W/ INTERNAL URETHROTOMY; Surgeon: Fady Ndiaye MD; Location: [facility]; Service: Urology; Laterality: N/A; ??? JOINT REPLACEMENT left knee replacement ??? LUMBAR / THORACIC MEDIAL BRANCH BLOCK N/A 08/02/2017 Procedure: LUMBAR/THORACIC MEDIAL BRANCH BLOCK (Right L2-5); Surgeon: Petr Brito MD; Location: [facility]; Service: Rehab Medicine; Laterality: N/A; ??? LUMBAR / THORACIC MEDIAL BRANCH BLOCK Right 08/15/2017 Procedure: LUMBAR/THORACIC MEDIAL BRANCH BLOCK - Right L2-L5; Surgeon: Neptali Toledo MD; Location: [address]; Service: Anes Physiatry; Laterality: Right; ??? ROBOTIC YOUSIF UNICOMPARTMENTAL KNEE REPLACEMENT Left 11/01/2016 Procedure: MEDIAL YOUSIF - UNICOMPARTMENTAL KNEE REPLACEMENT - ROBOTIC; Surgeon: Miguelito Manuel MD; Location: OUTPATIENT OR; Service: Orthopedics; Laterality: Left; ??? SKIN BIOPSY Family History Problem Relation Age of Onset ??? Hypertension Mother ??? Alzheimer's disease Mother ??? Heart disease Mother ??? Kidney disease Mother ??? Diabetes Father ??? Heart disease Father ??? Alzheimer's disease Father ??? Alcohol abuse Brother ??? Alzheimer's disease Maternal Aunt ??? Alzheimer's disease Maternal Grandmother ??? Cancer Paternal Grandmother ??? Cancer Paternal Grandfather ??? Stroke Neg Hx Social History Tobacco Use ??? Smoking status: Former Smoker Types: Cigarettes Quit date: 04/16/1989 Years since quittin.2 ??? Smokeless tobacco: Former User Quit date: 04/21/1994 Substance Use Topics ??? Alcohol use: Yes Comment: occasional beer ??? Drug use: No Review of Systems Constitutional: Negative. HENT: Positive for rhinorrhea. Negative for congestion, dental problem, drooling, ear discharge, earpain, facial swelling, hearing loss, mouth sores, nosebleeds, postnasal drip, sinus pressure, sinus pain, sneezing, sore throat, tinnitus, trouble swallowing and voice change. Eyes: Negative. Respiratory: Positive for cough and wheezing. Negative for apnea, choking, chest tightness, shortness of breath and stridor. Cardiovascular: Negative. Gastrointestinal: Negative. Endocrine: Negative. Genitourinary: Negative. Musculoskeletal: Negative. Skin: Negative. Neurological: Negative. Hematological: Negative. Psychiatric/Behavioral: Negative. Physical Exam ED Triage Vitals [06/28/20 1409] BP 129/74 MAP (mmHg) Pulse 66 Resp 20 Temp 99.2 ??F (37.3 ??C) SpO2 96 % Weight 110.9 kg (244 lb 8 oz) Physical Exam Vitals and nursing note reviewed. Constitutional: Appearance: He is well-developed. HENT: Head: Normocephalic and atraumatic. Nose: Rhinorrhea present. Mouth/Throat: Pharynx: No oropharyngeal exudate. Eyes: Conjunctiva/sclera: Conjunctivae normal. Pupils: Pupils are equal, round, and reactive to light. Cardiovascular: Rate and Rhythm: Normal rate and regular rhythm. Heart sounds: Normal heart sounds. Pulmonary: Effort: Pulmonary effort is normal. Breath sounds: Normal breath sounds. No wheezing. Comments: Patient is breathing comfortably on room air. No retractions or accessory muscle use. O2 sat is 96% on room air. Patient does have a few crackles in the right lower lobe. No wheezes appreciated. Abdominal: General: Bowel sounds are normal. There is no distension. Palpations: Abdomen is soft. There is no mass. Tenderness: There is no abdominal tenderness. There is no guarding or rebound. Hernia: No hernia is present. Musculoskeletal: General: Normal range of motion. Cervical back: Neck supple. Skin: General: Skin is warm and dry. Neurological: Mental Status: He is alert and oriented to person, place, and time. ED Course I notified Dario Contrerasyelitza Mckeon that they are being tested for the novel coronavirus (SARS-COV-2). We discussed the patient's legal obligations including: - a mandatory period of isolation of at least 10 days from the start of symptoms -OR- until 24 hourshave passed since the last fever, whichever method takes longer - When and how we will contact them with a test result - All immediate family members must also isolate at home for 14 days - Isolation means no personal contact with other outside the home - We discussed that a negative test result does can stop the isolation period but they should remainat home as long as they are ill - Failure to follow instructions will create risk of spreading infection The patient and/or their caregiver was given the opportunity to ask questions, all of which were answered. The patient was given phone number for [facility]'s [employer] hotline for further questions. Total time spent in discharge counseling around quarantine: 20 minutes. MDM 40-year-old male history of CVA and diabetes presents with 2 to 3 days of rhinorrhea and cough. He has had low-grade fevers at home. Afebrile here. Normotensive. No tachycardia or hypoxia. Patient had copious amounts of watery rhinorrhea. Mild erythema of the throat. He had a few crackles in the right lung base. I did order portable chest x-ray that showed no acute findings. We did screen him forCOVID-19 and this was negative. I did advise him it may be too early to screen and this may be a false negative. I do think the patient has an upper respiratory tract infection. He does have an elementof bronchitis. He did have some wheezing at home. I will give an albuterol inhaler. We will give him azithromycin. We will have him follow-up with his PCP in 2 to 3 days. ER return recommended for worsening symptoms. Clinical Impression: 1. Bronchitis ED Disposition ED Disposition Condition Comment Discharge Stable Dario Mckeon discharge to home/self care. Electronically signed by: Cami Ingram PA-C 06/28/20 1538 documented in this encounter Plan of Treatment Not on filedocumented as of this encounter Procedures Procedure Name Priority Date/Time Associated Diagnosis Comme nts COVID-19 AND STAT 06/28/2020 2:46 PM Results f or this INFLUENZA A/B PCR EDT procedure are in the results section. XR CHEST AP STAT 06/28/2020 2:34 PM Results f or this PORTABLE EDT procedure are i n the results section. documented in this encounter Results COVID-19 and Influenza A/B PCR (06/28/2020 2:46 PM EDT) [facility] Method Time Signature SARS-COV-2 Negative Negative 06/28/2020 [facility] 3[facility]28 PM EDT [facility] Influenza A Negative Negative 06/28/2020 [facility] 3:28 PM EDT ON [facility] Influenza B Negative Negative 06/28/2020 [facility] 3:28 PM EDT ON [facility] COVID-19 Results are for use in the s imultaneous rapid in vitro detection and differentiation of SARS-CoV-2, influenza A virus, and influenza B virus nucleic acids in clinical specimens. 06/28/2020 [facility] 3:28 PM EDT ON MEDICAL COMMENT Positive results are indicat susan of active infection but do not rule out bacterial infection or co-infection with other pathogens not detected by the test. Clinical correlation with patient history and o CENTER LAB ther diagnostic information is necessary to determine patient infection status. The agent detected may not be the definite cause of disease. SERVICES Negative results do not prec lude SARS-CoV-2, influenza A, and/or influenza B infection and should not be used as the sole basis for diagnosis, treatment or other patient management decisions. Negative r esults must be combined with clinical observations, patient history, and/or epidemiological information. Test performed by [facility] qual ified personnel using the Camila marlena?? SARS-CoV-2 & Influenza A/B Nucleic acid test on the [employer] instrument. This test is only for use under the Food and Drug Administration's Emergency Use Authorization (EUA). Specimen (Source) Anatomical Collection Method Collection Time Re ceived Time Location / / Volume Laterality Nasopharyngeal Swab 06/28/2020 2:46 06/28 ([place]asal) PM EDT 2:54 PM EDT Cami Ingram PA-C BODY FLUIDS AND STOOLS (NON-MICRO) ORDERABLES Performing Organization Address City/State/ZIP Code Phon e Number [facility] [id number] [place] [address] [facility] [address] XR CHEST AP PORTABLE (06/28/2020 2:34 PM EDT) Anatomical Region Laterality Modality Chest Computed Radiography Specimen (Source) Anatomical Collection Method Collection Time Re ceived Time Location / / Volume Laterality 06/28/2020 2:37 PM EDT Impressions 06/28/2020 6:59 PM EDT There is no evidence of acute cardiac or pulmonary abnormality. Narrative 06/28/2020 6:59 PM EDT XR CHEST AP PORTABLE, 06/28/2020 2:34 PM INDICATION:cough with fever and rhinorrh ea COMPARISON: None. FINDINGS: Support Devices: None. Cardiovascular/Mediastinum: Cardioperica rdial silhouette and pulmonary vasculature are within normal limits. Mediastinum is within normal limits. Lungs/pleura: No focal airspace opacity. No pneumothorax. No pleural effusion. Upper abdomen: Visible portions of the u pper abdomen are within normal limits. Chest wall/osseous structures: No acute osseous abnormality. Mild polyarticular degenerative changes. Procedure Note Benjamin Ceron MD - 06/28/2020Format ting of this note might be different from the original. XR CHEST AP PORTABLE, 06/28/2020 2:34 PM INDICATION:cough with fever and rhinorrh ea COMPARISON: None. FINDINGS: Support Devices: None. Cardiovascular/Mediastinum: Cardioperica rdial silhouette and pulmonary vasculature are within normal limits. Mediastinum is within normal limits. Lungs/pleura: No focal airspace opacity. No pneumothorax. No pleural effusion. Upper abdomen: Visible portions of the u pper abdomen are within normal limits. Chest wall/osseous structures: No acute osseous abnormality. Mild polyarticular degenerative changes. CONCLUSION: There is no evidence of acute cardiac or pulmonary abnormality. Cami Ingram PA-C IMG DIAG PORTABLES CATHI AGRAWAL documented in this encounter Visit Diagnoses Diagnosis Bronchitis - Primary Bronchitis, not specified as acute or ch ronic documented in this encounter Additional Health Concerns Infection Onset Date Last Indicated Resolved Time R/O COVID-19;Influenza 06/28/2020 06/28/2020 3:28 PM EDT documented as of this encounter Care Teams Science Job Titles Relationship Specialty Start Date End Date Neal Breen MD PCP - General Family Medicine 07/31/18 07/14/[address] [place] [address] documented as of this encounter
--- OUTSIDE RECORDS SUMMARY | 2021-11-30 11:46 | XMS_ITS | Encounter Summary ---
:1955 Author Organization [facility] [place] [address] Care Team Providers Name Role Phone Neal Breen MD Primary Care Provider Reason for Referral MRI/CAT Scan (Routine) - Closed Specialty Diagnoses / Procedures Referred By Contact Refer red To Contact Radiology Diagnoses Cerebral amyloid angiopathy (HCC) Tr Sher Jr., MD [facility] Procedures MR BRAIN W & WO CONTRAST [address] [place] [address] 103 Referral ID Status Reason Start Date Expiration Date Visits Requ ested Visits Authorized [id number] Closed 05/27/2020 07/26/2020 1 1 Reason for Visit MRI/CAT Scan (Routine) - Closed Specialty Diagnoses / Procedures Referred By Contact Refer red To Contact Radiology Diagnoses Cerebral amyloid angiopathy (HCC) Tr Sher Jr., MD [facility] Procedures MR BRAIN W & WO CONTRAST [address] [place] [address] 103 Referral ID Status Reason Start Date Expiration Date Visits Requ ested Visits Authorized [id number] Closed 05/27/2020 07/26/2020 1 1 Encounter Details Date Type Department Care Team Description 06/02/2020 Hospital Encounter MRI Imaging - Tr Sher Jr., MD [address] [place] [address] [address] [place] [address] [facility] [phone] [address] [place] [address] (Wo rk) Social History Tobacco Use Types [...] been in contact with No / Unsure 06/02/2020 8:08 AM EST someone who was confirmed or [...] Take 28 mg by 0 mouth daily. atorvastatin (LIPITOR) 20 TAKE 1 TABLET(20 90 tablet 3 10/1509/16/2020 MG tablet MG) BY MOUTH DAILY buPROPion SR (WELLBUTRIN Take 1 tablet (100 180 tablet 5 10/15/2020 SR) 100 MG 12 hr mg total) by mouth tabletIndications: 2 times daily. depression cyclobenzaprine (FLEXERIL) Take 1 tablet (10 20 tablet 0 07/08/2021 10 MG tablet mg total) by mouth 2 (two) times daily as needed for up to 10 days. flecainide (TAMBOCOR) 100 TAKE 1 TABLET(100 180 tablet 3 06/201906/10/2020 MG tablet MG) BY MOUTH TWICE DAILY fluticasone propionate SHAKE LIQUID AND 16 g [...] Priority Date/Time Associated Diagnosis Comme nts MR BRAIN WWO Routine 06/02/2020 9:03 AM Cerebral amyloid Resul ts for this CONTRAST EST angiopathy (HCC) procedure a re in the results section. documented in this encounter Results MR BRAIN W & WO CONTRAST (06/02/2020 9:03 AM EST) Anatomical Region Laterality Modality Head Magnetic Resonance Specimen (Source) Anatomical Collection Method Collection Time Re ceived Time Location / / Volume Laterality 06/02/2020 9:10 AM EST Impressions 06/02/2020 9:15 AM EST No acute intracranial abnormality. ?? Pr ogressive amyloid angiopathy with similar area of encephalomalacia in the right frontal lobe. Narrative 06/02/2020 9:15 AM EST MRI BRAIN WITH AND WITHOUT CONTRAST, 06/02/2020 9:03 AM INDICATION: ??\ E85.4 Cerebral amyloid a ngiopathy (HCC) \ I68.0 Cerebral amyloid angiopathy (HCC) COMPARISON: 01/04/2019 TECHNIQUE: Multiplanar, multi-sequence m agnetic resonance imaging of the brain was performed before and after intravenous administration of gadolinium-based contrast. FINDINGS: Calvarium/skull base: No focal marrow re placing lesion. Orbits: No mass lesion. Paranasal sinuses: No air-fluid levels. Brain: Area of encephalomalacia in the r ight frontal lobe with associated susceptibility artifact and without restricted diffusion. ??No mass effect. ??No evidence of acute hemorrhage. ?? No hydrocephal us. ?Moderate white matter disease f or the patient's age. Innumerable tiny foci of susceptibility artifact in the bilateral frontal, parietal and temporal lobes with relative sparing of the cerebell um. ??No abnormal enhancement. ??Normal appearance of the major intracranial arteries and dural venous sinuses. Additional comments: None. Procedure Note Aubrey Guerra Jr., MD - 06/02/19 21 MRI BRAIN WITH AND WITHOUT CONTRAST, 05/18 9:03 AM INDICATION: \ E85.4 Cerebral amyloid ang iopathy (HCC) \ I68.0 Cerebral amyloid angiopathy (HCC) COMPARISON: 01/04/2019 TECHNIQUE: Multiplanar, multi-sequence m agnetic resonance imaging of the brain was performed before and after intravenous administration of gadolinium-based contrast. FINDINGS: Calvarium/skull base: No focal marrow re placing lesion. Orbits: No mass lesion. Paranasal sinuses: No air-fluid levels. Brain: Area of encephalomalacia in the r ight frontal lobe with associated susceptibility artifact and without restricted diffusion. No mass effect. No evidence of acute hemorrhage. No hydrocephalus. Moderate white matter disease for the patient's age. In numerable tiny foci of susceptibility artifact in the bilateral frontal, parietal and temporal lobes with relative sparing of the cerebellum. No abnormal enhancement. Normal appearance of the major intracran ial arteries and dural venous sinuses. Additional comments: None. CONCLUSION: No acute intracranial abnormality. Progr essive amyloid angiopathy with similar area of encephalomalacia in the right frontal lobe. Tr Sher Jr., MD IMG MRI ORDERABLES documented in this encounter Visit Diagnoses Diagnosis Cerebral amyloid angiopathy (HCC) Other amyloidosis documented in this encounter Administered Medications Inactive Administered Medications - up to 3 most recent administrations Medication Order MAR Action Action Date Dose Rate Site gadobutrol (GADAVIST) injection 10 Given 06/02/2020 8:58 AM EST 10 mLs mL 10 mL IMG once as needed, Intravenous, Contrast, Starting on 06/02/20 at 0858, For 1 dose, Radiology documented in this encounter Care Teams Solar Photovoltaic Designer Relationship Specialty Start Date End Date Neal Breen MD PCP - General Family Medicine 07/31/18 07/14/[address] [place] [address] documented as of this encounter
--- OUTSIDE RECORDS SUMMARY | 2021-11-30 11:46 | XMS_ITS | Encounter Summary ---
:1955 Author Organization [facility] [place] [address] Care Team Providers Name Role Phone Neal Breen MD Primary Care Provider [phone] Encounter Details Date Type Department Care Team Description 07/10/2020 Travel Social History Tobacco Use Types Packs/Day [...] been in contact with No / Unsure 07/10/2020 2:58 PM EDT someone who was confirmed or [...] on filedocumented in this encounter Care Teams Manager Cardiac Cath Relationship Specialty Start Date End Date Neal Breen MD PCP - General Family Medicine 07/31/18 07/14/[address] [place] [address] documented as of this encounter
--- OUTSIDE RECORDS SUMMARY | 2021-11-30 11:46 | XMS_ITS | Encounter Summary ---
:1955 Author Organization [facility] [place] [address] Care Team Providers Name Role Phone Neal Breen MD Primary Care Provider [phone] Reason for Visit Reason Comments Left Hand Problem injured left hand on monday trying to brace from a fall Encounter Details Date Type Department Care Team Description 09/20[facility]2020 [facility] [address] [place] [address] [phone] (Wo rk) Social History Tobacco Use Types [...] been in contact with No / Unsure 09/20/2020 12:33 PM EDT someone who was confirmed or suspected to have Coronavirus / COVID-19? documented as of this encounter Last Filed Vital Signs Vital Sign Reading Time Taken Comments Blood Pressure 142/67 09/20/2020 12:34 PM EDT Pulse 65 09/20/2020 12:34 PM EDT Temperature 37.1 ??C (98.7 ??F) 09/20/2020 12:34 PM EDT Respiratory Rate 20 09/20/2020 12:34 PM EDT Oxygen Saturation 96% 09/20/2020 12:34 PM EDT Inhaled Oxygen Concentration - - Weight 113.1 kg (249 lb 4 oz) 09/20/2020 12:34 PM EDT Height - - Body Mass Index 35.76 09/16/2020 11:39 AM EDT documented in this encounter Functional [...] documented as of this encounter Discharge Instructions AttachmentsThe following attachments cannot be sent through Care Everywhere. Contusion: Hand (Japanese)documented in this encounter Medications at Time of Discharge Medication Sig Dispensed Refills Start Date End Date donepezil (ARICEPT) 10 MG Take 10 mg by 0 tablet mouth in the morning and at bedtime. flecainide (TAMBOCOR) 100 TAKE 1 TABLET(100 180 tablet 3 MG tablet MG) BY MOUTH TWICE DAILY lisinopriL Take 1 tablet (2.5 90 tablet 5 09/16/2020 (PRINIVIL,ZESTRIL) 2.5 MG mg total) by mouth tablet daily. memantine 28 mg CSpX Take 28 mg by 0 mouth daily. metoPROLOL succinate 1 tab PO daily 180 tablet 5 09/16/2020 (TOPROL-XL) 50 MG 24 hr tablet atorvastatin (LIPITOR) 20 TAKE 1 TABLET(20 90 tablet 3 06/05/202009/14/2021 MG tablet MG) BY MOUTH DAILY buPROPion SR (WELLBUTRIN Take 1 tablet (100 180 tablet 5 10/15/2020 SR) 100 MG 12 hr mg total) by mouth tabletIndications: 2 times daily. depression cyclobenzaprine (FLEXERIL) Take 1 tablet (10 20 tablet 0 07/08/2021 10 MG tablet mg total) by mouth 2 (two) times daily as needed for up to 10 days. ipratropium (ATROVENT) 21 USE 2 SPRAYS IN 30 mL 1 09/0710/27/2020 mcg (0.03 %) nasal spray EACH NOSTRIL THREE TIMES DAILY metFORMIN ER TAKE 1 [...] encounter ED Notes Cami Ingram PA-C - 09/20/2020 1:03 PM EDT History Chief Complaint Patient presents with ??? Left Hand Problem injured left hand on monday trying to brace from a fall HPI patient presents with left hand pain. This occurred after he fell on Monday. He states he tripped on a deck and hit his knuckle on the door jam. He states his pain is worse with palpation and with motion. He is not taking any medicines. He has applied ice. He denies head injury, anticoagulation, numbness and tingling in extremities, other injuries. Past Medical History: Diagnosis Date ??? Acute [...] Procedure: COLONOSCOPY; Surgeon: Mckay Sanz MD; Location: [facility]; Service: Gastroenterology; Laterality: N/A; ??? CYSTOSCOPY W/ INTERNAL URETHROTOMY N/A 03/29/2019 Procedure: CYSTOSCOPY W/ INTERNAL URETHROTOMY; Surgeon: Fady Ndiaye MD; Location: [facility]; Service: Urology; Laterality: N/A; ??? JOINT REPLACEMENT left knee replacement ??? LUMBAR / THORACIC MEDIAL BRANCH BLOCK N/A 08/02/2017 Procedure: LUMBAR/THORACIC MEDIAL BRANCH BLOCK (Right L2-5); Surgeon: Petr Brito MD; Location: [facility]; Service: Rehab Medicine; Laterality: N/A; ??? LUMBAR / THORACIC MEDIAL BRANCH BLOCK Right 08/15/2017 Procedure: LUMBAR/THORACIC MEDIAL BRANCH BLOCK - Right L2-L5; Surgeon: Neptali Toledo MD; Location: [address]; Service: [facility]; Laterality: Right; ??? [...] Types: Cigarettes Quit date: 04/16/1989 Years since quittin.4 ??? Smokeless tobacco: Former User Quit date: 04/21/1994 Substance Use Topics ??? Alcohol use: Yes Comment: occasional beer (very rare) ??? Drug use: No Review of Systems Constitutional: Negative. HENT: Negative. Eyes: Negative. Respiratory: Negative. Cardiovascular: Negative. Gastrointestinal: Negative. Endocrine: Negative. Genitourinary: Negative. Musculoskeletal: Negative. Left hand pain Skin: Negative. Neurological: Negative. Hematological: Negative. Psychiatric/Behavioral: Negative. Physical Exam ED Triage Vitals [09/20/20 1234] BP 142/67 MAP (mmHg) Pulse 65 Resp 20 Temp 98.7 ??F (37.1 ??C) SpO2 96 % Weight 113.1 kg (249 lb 4 oz) Physical Exam Vitals and nursing note reviewed. Constitutional: Appearance: He is well-developed. HENT: Head: Normocephalic and atraumatic. Mouth/Throat: Pharynx: No oropharyngeal exudate. Eyes: Conjunctiva/sclera: Conjunctivae normal. Pupils: Pupils are equal, round, and reactive to light. Cardiovascular: Rate and Rhythm: Normal rate and regular rhythm. Heart sounds: Normal heart sounds. Pulmonary: Effort: Pulmonary effort is normal. Breath sounds: Normal breath sounds. No wheezing. Abdominal: General: Bowel sounds are normal. There is no distension. Palpations: Abdomen is soft. There is no mass. Tenderness: There is no abdominal tenderness. There is no guarding or rebound. Hernia: No hernia is present. Musculoskeletal: General: Normal range of motion. Cervical back: Neck supple. Comments: Patient has tenderness and swelling to the dorsum of the left hand. He has painful flexion extension of his MCPs. There is no obvious deformity. Capillary refill is less than 2 seconds. Radial pulses +2 Skin: General: Skin is warm and dry. Neurological: Mental Status: He is alert and oriented to person, place, and time. ED Course Procedures [facility] Pleasant 64-year-old male presents with left hand pain secondary to trauma. He did have swellingand tenderness to the dorsum of the left hand. Plain films pending. Plain film shows no evidence of fracture or malalignment. Patient was placed in Hal wrap. He was educated about rest, ice, compression elevation. OTC meds for pain as needed. ED return was recommended for worsening symptoms. Clinical Impression: 1. Contusion of left hand, initial encounter ED Disposition None Electronically signed by: Cami Ingram PA-C 09/20/20 1341 documented in this encounter Plan of Treatment Not on filedocumented as of this encounter Procedures Procedure Name Priority Date/Time Associated Diagnosis Comme nts XR HAND LEFT STAT 09/20/2020 1:25 PM Results f or this (ROUTINE: EDT procedure are i n AP,LAT,OBL) the results section. documented in this encounter Results XR HAND LEFT (ROUTINE: AP,LAT,OBL) (09/20/2020 1:25 PM EDT) Anatomical Region Laterality Modality Hand, Wrist Digital Radiography Specimen (Source) Anatomical Collection Method Collection Time Re ceived Time Location / / Volume Laterality 09/20/2020 1:29 PM EDT Impressions 09/20/2020 9:18 PM EDT 1. ??No acute fracture or malalignment. 2. 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 Narrative 09/20/2020 9:18 PM EDT X-RAY LEFT HAND (3+ VIEWS), 09/20/2020 1:25 PM INDICATION: swelling and pain COMPARISON: None. Procedure Note Vasquez Correia MD - 09/20/2020 X-RAY LEFT HAND (3+ VIEWS), 09/20/2020 1:2 5 PM INDICATION: swelling and pain COMPARISON: None. CONCLUSION: 1. No acute fracture or malalignment. 2. 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 Cami Ingram PA-C IMG DIAGNOSTIC IMAGING ORDERABLES documented in this encounter Visit Diagnoses Diagnosis Contusion of left hand, initial encounte r - Primary documented in this encounter Care Teams Embedded Systems Developer Relationship Specialty Start Date End Date Neal Breen MD PCP - General Family Medicine 07/31/18 07/14/[address] [place] [address] documented as of this encounter
--- OUTSIDE RECORDS SUMMARY | 2021-11-30 11:46 | XMS_ITS | Encounter Summary ---
:1955 Author Organization [facility] [place] [address] Care Team Providers Name Role Phone Neal Breen MD Primary Care Provider [phone] Encounter Details Date Type Department Care Team Description 04/28/2020 Travel Social History Tobacco Use Types Packs/Day [...] been in contact with No / Unsure 04/28/2020 8:19 AM EST someone who was confirmed or [...] on filedocumented in this encounter Care Teams Seafood Clerk Relationship Specialty Start Date End Date Neal Breen MD PCP - General Family Medicine 07/31/18 07/14/[address] [place] [address] documented as of this encounter
--- OUTSIDE RECORDS SUMMARY | 2021-11-30 11:46 | XMS_ITS | Encounter Summary ---
:1955 Author Organization [facility] [place] [address] Care Team Providers Name Role Phone Neal Breen MD Primary Care Provider [phone] Reason for Referral MRI/CT/PET Scan (Routine) - Closed Specialty Diagnoses / Procedures Referred By Contact Refer red To Contact Radiology Diagnoses Renal calculi Gross hematuria Rafat White MD [facility] [place] Stone Study - Abdomen Pelvis WO [address] [facility] [address] [place] [address] [place] [address] Referral ID Status Reason Start Date Expiration Date Visits Requ ested Visits Authorized [id number] Closed 01/04/2021 03/04/2021 1 1 Reason for Visit MRI/CT/PET Scan (Routine) - Closed Specialty Diagnoses / Procedures Referred By Contact Refer red To Contact Radiology Diagnoses Renal calculi Gross hematuria Rafat White MD [facility] Procedures CT Stone Study - Abdomen Pelvis WO 106 [facility] NAFISA BO [address] [place] [address] [place] [address] Referral ID Status Reason Start Date Expiration Date Visits Requ ested Visits Authorized [id number] Closed 01/04/2021 03/04/2021 1 1 Encounter Details Date Type Department Care Team Description 01/07/[address] Imaging - [place] Rafat White MD [address] [place] [address] [address] [place], [place] [address] (Wo rk) Social History [...] been in contact with No / Unsure 01/07/2021 1:56 PM EDT someone who was confirmed or [...] Name Priority Date/Time Associated Diagnosis Comme nts CT ABDOMEN PELVIS Routine 01/07/2021 2:03 PM Renal calcu li Results for this WO CONTRAST (STONE) EDT Gross hematuria proce dure are in the results section. documented in this encounter Results CT Stone Study - Abdomen Pelvis WO (01/07/2021 2:03 PM EDT) Anatomical Region Laterality Modality Abdomen, Vascular Computed Tomography Specimen (Source) Anatomical Collection Method Collection Time Re ceived Time Location / / Volume Laterality 01/07/2021 2:15 PM EDT Impressions 01/07/2021 2:19 PM EDT Nephrolithiasis with proximal 5 mm nonob structing stone in the left ureter. Ancillary findings above. Narrative 01/07/2021 2:[address] STONE STUDY, 01/07/2021 2:03 PM INDICATION: ??\ N20.0 Renal calculi \ R3 1.0 Gross hematuria ADDITIONAL HISTORY: None. COMPARISON: 10/01/2020 TECHNIQUE: Axial images of the abdomen a nd pelvis were obtained without intravenous contrast. Supplemental 2D reformatted images were generated and reviewed as needed. All CT scans at [facility] are performed using dose optimization techniques as appropriate to a performed exam, including but not limited to one o r more of the following: automated expos ure control, adjustment of the mA and/or kV according to patient size, use of iterative reconstruction technique. In addition, [facility] is participating in the ACR Do se Registry program which will further a ssist us in optimizing patient radiation exposure. LIMITATIONS: Lack of intravenous contras t decreases sensitivity for the detection of solid organ lesions. FINDINGS: LOWER CHEST Mediastinum: Within normal limits. Heart/vessels: Within normal limits. Pleura: Within normal limits. Lungs: 4 mm right lower lobe nodule unch anged going back to 2016. ABDOMEN Liver: Within normal limits. Gallbladder/biliary: Within normal limit s. Spleen: Within normal limits. Pancreas: Within normal limits. Adrenals: Within normal limits. Kidneys: Multiple calyceal stones bilate rally with perirenal fat stranding. No hydronephrosis. Peritoneum/mesenteries: Within normal li mits. Extraperitoneum: Within normal limits. Gastrointestinal tract: Appendix not obdulia ntified compatible with history of appendectomy. Vascular: Within normal limits. PELVIS Peritoneum: Within normal limits. Extraperitoneum: Within normal limits. Ureters: 5 mm proximal left ureteral sto ne without obstruction. Bladder: Within normal limits. Reproductive system: Within normal limit s. Vascular: Within normal limits. MSK: Moderate to advanced multilevel deg enerative changes in lumbar spine with chronic inferior endplate compression fracture of L1 again noted. Procedure Note Aubrey Guerra Jr., MD - 01/08/[address] STONE STUDY, 01/07/2021 2:03 PM INDICATION: \ N20.0 Renal calculi \ R31. 0 Gross hematuria ADDITIONAL HISTORY: None. COMPARISON: 10/01/2020 TECHNIQUE: Axial images of the abdomen a nd pelvis were obtained without intravenous contrast. Supplemental 2D reformatted images were generated and reviewed as needed. All CT scans at [facility] and [facility] are performed using dose optimization techniques as appropriate to a performed exam, including but not limited to one or more of the following: automated exposure control, a djustment of the mA and/or kV according to patient size, use of iterative reconstruction technique. In addition, [facility] is participating in the ACR Dose Registry program which will further assist us in optimizing pat ient radiation exposure. LIMITATIONS: Lack of intravenous contras t decreases sensitivity for the detection of solid organ lesions. FINDINGS: LOWER CHEST Mediastinum: Within normal limits. Heart/vessels: Within normal limits. Pleura: Within normal limits. Lungs: 4 mm right lower lobe nodule unch anged going back to 2016. ABDOMEN Liver: Within normal limits. Gallbladder/biliary: Within normal limit s. Spleen: Within normal limits. Pancreas: Within normal limits. Adrenals: Within normal limits. Kidneys: Multiple calyceal stones bilate rally with perirenal fat stranding. No hydronephrosis. Peritoneum/mesenteries: Within normal li mits. Extraperitoneum: Within normal limits. Gastrointestinal tract: Appendix not obdulia ntified compatible with history of appendectomy. Vascular: Within normal limits. PELVIS Peritoneum: Within normal limits. Extraperitoneum: Within normal limits. Ureters: 5 mm proximal left ureteral sto ne without obstruction. Bladder: Within normal limits. Reproductive system: Within normal limit s. Vascular: Within normal limits. MSK: Moderate to advanced multilevel deg enerative changes in lumbar spine with chronic inferior endplate compression fracture of L1 again noted. CONCLUSION: Nephrolithiasis with proximal 5 mm nonob structing stone in the left ureter. Ancillary findings above. Rafat White MD IMG CT ORDERABLES documented in this encounter Visit Diagnoses Diagnosis Renal calculi Calculus of kidney Gross hematuria documented in this encounter Care Teams Clinical Associate Relationship Specialty Start Date End Date Neal Breen MD PCP - General Family Medicine 07/31/18 07/14/[address] [place] [address] documented as of this encounter
--- OUTSIDE RECORDS SUMMARY | 2021-11-30 11:46 | XMS_ITS | Encounter Summary ---
:1955 Author Organization [facility] [place] [place] [address] Care Team Providers Name Role Phone Neal Breen MD Primary Care Provider [phone] Reason for Visit Reason Comments Sleep Apnea Encounter Details Date Type Department Care Team Description 05/28/2020 Office Visit Pulmonary Sleep - Tr Martinez Moderate obstructive Jennifer Mendez PA-C sleep apnea (Primary 4 Medical [facility] Dx) [facility] [id number] [place], [place] [phone] [id number] Social History Tobacco Use Types Packs/Day Years [...] been in contact with No / Unsure 05/28/2020 1:00 PM EST someone who was confirmed or suspected to have Coronavirus / COVID-19? documented as of this encounter Last Filed Vital Signs Vital Sign Reading Time Taken Comments Blood Pressure 117/56 05/28/2020 1:21 PM EST Pulse 58 05/28/2020 1:21 PM EST Temperature 36.4 ??C (97.5 ??F) 05/28/2020 1:21 PM EST Respiratory Rate 20 05/28/2020 1:21 PM EST Oxygen Saturation 96% 05/28/2020 1:21 PM EST Inhaled Oxygen Concentration - - Weight 112 kg (247 lb) 05/28/2020 1:21 PM EST Height 177.8 cm (5' 10) 05/28/2020 1:21 PM EST Body Mass Index 35.44 05/28/2020 1:21 PM EST documented in this [...] documented as of this encounter Progress Notes Tr Martinez PA-C - 05/28/2020 1:00 PM EST [facility] Medicine Outpatient [facility] Return Patient Visit Date of Visit: 05/28/2020 Primary Care Physician: Neal Breen MD Referring Provider: Self, A Referral Chief Complaint: Chief Complaint Patient presents with ??? Sleep Apnea History of Present Illness: Dario Mckeon is a 64 y.o. male who presents to the Sleep Medicine Clinic for follow up for MARTA. PMHx significant for Obesity (BMI > 33), HTN, HLD, Type II DM, Depression, Hx of SVT, Hx of Ischemic TIA/CVA and Hx of Intraparenchymal Hemorrhage (Amyloid Angiopathy). 05/2019 Split PSG with AHI: 21.9 with associated desaturation (O2 elvis: 82%) and was titrated to CPAP 13cm. He was last seen in 11/2019 for after initiation of CPAP therapy. He met compliance and reported receiving subjective benefit. MARTA was well controlled as residual index is less than 5.0. Noted significant leak which was felt to be due to his ornelas. iscussed the use of chin strap to help with leak and jaw laxity given current use of FFM. Rx for Flonase provided to help with allergies and nasal congestion in an effort to help improve overall tolerance to CPAP therapy. Mr. Mckeon presents to clinic today reporting he's not used his device since 01/2020 due to a fallingout with his significant other and left device in room they were sharing. He has since had changed living quarters. Device Settings: 13cm Device Supply [facility]: [facility] [employer] Compl[employer] Data Review: CPAP [employer]load 11/20/2019 05/28/2020 Days Used 115 69 % Use (Greater than 4 hours) 70 30 Hours/Days Used 4.8 5.5 Leak Average 75 70 AHI Average 5 4 Pressure 13 13 Device has not been used since 01/2020 and has been powered off since 05/15/2020 Clinically, patient feels on PAP: improved sleep. Denies symptoms compatible with restless legs syndrome. Denies motor vehicle crashes or near misses due to excessive day time sleepiness. Barnwell Sleepiness Scale 04/18/2019 11/20/2019 05/28/2020 Sitting and reading 3 0 2 Watching TV 2 1 1 Sitting, inactive in a public place (e.g. a theatre or a meeting) 0 0 0 As a passenger in a car for an hour without a break 2 0 1 Lying down to rest in the afternoon when circumstances permit 2 2 1 Sitting and talking to someone 0 0 1 Sitting quietly after a lunch without alcohol 1 0 2 In a car, while stopped for a few minutes in traffic 0 0 1 Total score 10 3 9 The Barnwell Sleepiness Scale is used to determine the level of daytime sleepiness. A score of 10 or more is considered sleepy. A score of 18 or more is very sleepy. If you score 10 or more on this test, you should consider whether you are obtaining adequate sleep, need to improve your sleep hygiene and/or need to see a sleep specialist. These issues should be discussed with your personal physician. Use the following scale to choose the most appropriate number for each situation: 0 = would never doze or sleep. 1 = slight chance of dozing or sleeping 2 = moderate chance of dozing or sleeping 3 = high chance of dozing or sleeping Review of Systems: A 14-point ROS was performed with pertinent positives/negatives noted in the HPI. The remainder of the ROS are negative. Past History: Past Medical History: Diagnosis Date ??? Acute CVA (cerebrovascular accident) (HCC) 09/16/2017 ??? Arthritis ??? Back pain ??? 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 Cerebral brain hemorrhage (HCC) ??? Diabetes mellitus (HCC) ??? Hyperlipemia ??? MARTA (obstructive sleep apnea) ??? Ruptured appendix ??? Tachycardia Family History Problem Relation Age of Onset ??? Hypertension Mother ??? Alzheimer's disease Mother ??? Heart disease Mother ??? Kidney disease Mother ??? Diabetes Father ??? Heart disease Father ??? Alzheimer's disease Father ??? Alcohol abuse Brother ??? Alzheimer's disease Maternal Aunt ??? Alzheimer's disease Maternal Grandmother ??? Cancer Paternal Grandmother ??? Cancer Paternal Grandfather ??? Stroke Neg Hx Social History Socioeconomic History ??? Marital status: Single Spouse name: None ??? Number of children: None ??? Years of education: None ??? Highest education level: None Occupational History ??? None Social Needs ??? Financial resource strain: None ??? Food insecurity Worry: None Inability: None ??? Transportation needs Medical: None Non-medical: None Tobacco Use ??? Smoking status: Former Smoker Types: Cigarettes Quit date: 04/16/1989 Years since quittin.1 ??? Smokeless tobacco: Former User Quit date: 04/21/1994 Substance and Sexual Activity ??? Alcohol use: Yes Frequency: Monthly or less Drinks per session: 1 or 2 Comment: occasional beer ??? Drug use: No ??? Sexual activity: None Lifestyle ??? Physical activity Days per week: None Minutes per session: None ??? Stress: None Relationships ??? Social connections Talks on phone: None Gets together: None Attends yazdanism service: None Active member of club or organization: None Attends meetings of clubs or organizations: None Relationship status: None Other Topics Concern ??? None Social History Narrative ??? None Medications: Meds Ordered in [facility] Medication Sig Dispense Refill ??? atorvastatin (LIPITOR) 20 MG tablet TAKE 1 TABLET(20 MG) BY MOUTH DAILY 90 tablet 3 ??? buPROPion SR (WELLBUTRIN SR) 100 MG 12 hr tablet Take 1 tablet (100 mg total) by mouth 2 times daily. 180 tablet 5 ??? donepezil (ARICEPT) 10 MG tablet Take 10 mg by mouth in the morning and at bedtime. ??? flecainide (TAMBOCOR) 100 MG tablet TAKE 1 TABLET(100 MG) BY MOUTH TWICE DAILY 180 tablet 3 ??? fluticasone propionate (FLONASE) 50 mcg/actuation nasal spray SHAKE LIQUID AND USE 2 SPRAYS IN EACH NOSTRIL TWICE DAILY (Patient taking differently: by Nasal route as needed. ) 16 g 5 ??? ibuprofen (ADVIL,MOTRIN) 200 MG tablet Take 200 mg by mouth every 6 (six) hours as needed. ??? memantine 28 mg CSpX Take 28 mg by mouth daily. ??? metFORMIN ER (GLUCOPHAGE-XR) 500 MG extended release tablet TAKE 1 TABLET(500 MG) BY MOUTH TWICEDAILY WITH MEALS 180 tablet 5 ??? metoPROLOL succinate (TOPROL-XL) 50 MG 24 hr tablet TAKE 1 TABLET BY MOUTH ONCE DAILY 180 tablet5 ??? multivitamin capsule Take 1 capsule by mouth daily. ??? naproxen (NAPROSYN) 500 MG tablet Take 1 tablet (500 mg total) by mouth 2 times daily. PRN 180 tablet 5 No current [facility]-ordered facility-administered medications on file. Physical Exam: Vitals: 05/28/20 1321 BP: 117/56 Pulse: 58 Temp: 97.5 ??F (36.4 ??C) Resp: 20 SpO2: 96% PainSc: 4-Four (moderate) Position: Sitting Body mass index is 35.44 kg/m??. General: Alert, normal appearing, no acute distress Head: Normocephalic, without obvious abnormality, atraumatic Eyes: Sclera clear, EOM intact Lungs: Good respiratory effort, Clear to auscultation bilaterally with no wheezes, rales or rhonchi. Heart: Regular rate and rhythm, S1, S2 normal, no murmurs appreciated Musculoskeletal: Free range of motion x 4. Integument: No rash. No cyanosis. No edema Neurologic: Alert and oriented x3 Diagnostic Review: I personally reviewed Sleep Study Data: AHI (Apnea-Hypopnea Index): 21.9 /hr (05/31/2019 6:04 AM) with Elvis Saturation (%): 89 % (05/31/2019 6:04 AM) consistent with obstructive sleep apnea. Lab Results Component Value Date WBC 6.9 01/12/2019 HGB 13.1 (L) 01/12/2019 HCT 39.9 (L) 01/12/2019 PLT 268 01/12/2019 CHOL 109 09/12/2019 TRIG 181 (H) 09/12/2019 HDL 38 09/12/2019 ALT 22 01/03/2019 AST 23 01/03/2019 NA 141 09/12/2019 K 4.0 09/12/2019 CL 108 09/12/2019 CREATININE 1.10 09/12/2019 BUN 19 09/12/2019 CO2 27 09/12/2019 INR 0.91 09/16/2017 Assessment/Plan: 1. Moderate obstructive sleep apnea Respiratory Supply - PAP with Supplies 64 y.o. y/o male who is seen in follow up for MARTA. Patient has not maintained adherence to therapy due to change in living status. Patient aware of need to resume therapy and plans to do so. He is in of new supplies as current have been soiled by dust from recent storage. 1. Resume CPAP 2. Supply order provided. 3. Counseled on sleep hygiene and importance of maintaining sleep routine 4. Counseled on weight loss / maintenance of healthy weight 5. Counseled NOT to drive if/when sleepy Return in about 6 months (around 11/25/2020). Keep up to date on adult immunizations, especially influenza and pneumonia. Thank you for the opportunity to participate in the care of your patient. If I can be of further assistance please do not hesitate to contact the office. Electronically signed by: Tr Martinez PA-C 05/28/20 8233 documented in this encounter Plan of Treatment Not on filedocumented as of this encounter Visit Diagnoses Diagnosis Moderate obstructive sleep apnea - Prima ry documented in this encounter Care Teams Curriculum Manager Relationship Specialty Start Date End Date Neal Breen MD PCP - General Family Medicine 07/31/18 07/14/[address] [place] [address] documented as of this encounter
--- OUTSIDE RECORDS SUMMARY | 2021-11-30 11:46 | XMS_ITS | Encounter Summary ---
:1955 Author Organization [facility] [place] [address] Care Team Providers Name Role Phone Neal Breen MD Primary Care Provider [phone] Encounter Details Date Type Department Care Team Description 01/07/2021 Travel Social History Tobacco Use Types Packs/Day [...] on filedocumented in this encounter Care Teams Stenciling Machine Tender Relationship Specialty Start Date End Date Neal Breen MD PCP - General Family Medicine 07/31/18 07/14/[address] [place] [address] documented as of this encounter
--- OUTSIDE RECORDS SUMMARY | 2021-11-30 11:46 | XMS_ITS | Encounter Summary ---
:1955 Author Organization [facility] [place] [address] Care Team Providers Name Role Phone Neal Breen MD Primary Care Provider [phone] Pcp, Patient Does Not Have Primary Care Provider [phone] Reason for Visit Reason Onset Date Comments [facility] Follow Up 07/03/2020 Encounter Details Date Type Department Care Team Description 07/03/2020 Telephone [facility] Neal Breen, [facility] Follow Up [facility] Family Medicine MD Cullen Rodriguez [address] [place] [address] [place] [address] [place] [address] (Wo rk) Social History Tobacco Use Types [...] this encounter Miscellaneous Notes Telephone Encounter - Jany Peng - 07/06/2020 1:23 PM EDT Patient returned a missed call from Nguyen re: scheduling hospital follow up. Patient: [phone] Telephone Encounter - Bess Morin - 07/03/2020 12:02 PM EDT Patient needs a ED follow up appointment. Requested timeframe is or monday. No availability was found. Please call with appointment information. ED patient was seen at: [place] Treated for: Bronchitis Discharge date: 06/28/2020 Call back number: [phone] documented in this encounter Plan of Treatment Not on filedocumented as of this encounter Visit Diagnoses Not on filedocumented in this encounter Additional Health Concerns Infection Onset Date Last Indicated Resolved Time R/O COVID-19 11/23/2020 11/23/2020 11/24/2020 7:42 PM EDT documented as of this encounter Care Teams Farmworkers Relationship Specialty Start Date End Date Neal Breen MD PCP - General Family Medicine 07/31/18 07/14/[address] [place] [id number] Pcp, Patient Does Not Have PCP - General Family Medicine 07/15/21 documented as of this encounter
--- OUTSIDE RECORDS SUMMARY | 2021-11-30 11:46 | XMS_ITS | Encounter Summary ---
:1955 Author Organization [facility] [place] [address] Care Team Providers Name Role Phone Neal Breen MD Primary Care Provider [phone] Reason for Visit Reason Onset Date Comments [employer] 05/28/2020 Encounter Details Date Type Department Care Team Description 05/28/2020 Telephone Sleep Lab - Main Flr Mateo Gomes, [place] [address] [place], [place] [address] [phone] Social History Tobacco Use Types Packs/Day Years [...] this encounter Miscellaneous Notes Telephone Encounter - Kaley Gomes MT - 05/28/2020 1:53 PM EST Annual supply order sent to Elizabeth at [facility]. Electronically signed by: Kaley Gomes MT 05/28/20 1353 documented in this encounter Plan of Treatment Not on filedocumented as of this encounter Visit Diagnoses Not on filedocumented in this encounter Care Teams Director Script Relationship Specialty Start Date End Date Neal Breen MD PCP - General Family Medicine 07/31/18 07/14/[address] [place] [address] documented as of this encounter
--- OUTSIDE RECORDS SUMMARY | 2021-11-30 11:46 | XMS_ITS | Encounter Summary ---
:1955 Author Organization [facility] [place] [address] Care Team Providers Name Role Phone Neal Breen MD Primary Care Provider [phone] Encounter Details Date Type Department Care Team Description 10/15/2020 Travel Social History Tobacco Use Types Packs/Day [...] been in contact with No / Unsure 10/15/2020 10:18 AM EDT someone who was confirmed or [...] on filedocumented in this encounter Care Teams Truck Supervisor Relationship Specialty Start Date End Date Neal Breen MD PCP - General Family Medicine 07/31/18 07/14/[address] [place] [address] documented as of this encounter
--- OUTSIDE RECORDS SUMMARY | 2021-11-30 11:46 | XMS_ITS | Encounter Summary ---
:1955 Author Organization [facility] [place] [address] Care Team Providers Name Role Phone Neal Breen MD Primary Care Provider [phone] Encounter Details Date Type Department Care Team Description 09/16/2020 Lab Visit [facility] Type 2 di abetes mellitus with hyperglycemia, without long-term current use of insulin (HCC); Network Hypertension as sociated with diabetes ([facility]); Phlebotomy-[place] Hyperlipidemia due to type 2 diabetes mellitus (HCC) [address] [facility] [place] [address] Social History Tobacco Use Types Packs/Day Years [...] been in contact with No / Unsure 09/16/2020 11:24 AM EDT someone who was confirmed or [...] Procedure Name Priority Date/Time Associated Comments Diagnosis LIPID PROFILE Routine 09/16/2020 12:01 PM Type 2 diabetes Resu lts for this EDT mellitus with procedure are in hyperglycemia, the results without long-term section. current use of insulin (HCC) Hyperlipidemia due to type 2 diabetes mellitus (HCC) HEMOGLOBIN A1C Routine 09/16/2020 12:01 PM Type 2 diabetes Res ults for this EDT mellitus with procedure are in hyperglycemia, the results without long-term section. current use of insulin (HCC) BASIC METABOLIC Routine 09/16/2020 12:01 PM Type 2 diabetes Re sults for this PANEL EDT mellitus with procedure are in hyperglycemia, the results without long-term section. current use of insulin (HCC) Hypertension associated with diabetes (HCC) documented in this encounter Results Lipid Profile (09/16/2020 12:01 PM EDT) Analysis Performed At [facility] Time Signature LDL Direct 55 <130 mg/dL 09/16/2020 [facility] 4:56 PM [facility] Total Cholesterol 118 25 - 199 09/16/2020 [facility] MG/DL 4:56 PM EDT [facility] Triglycerides 144 10 - 150 09/16/2020 [place] [facility] MG/DL 4:56 PM EDT [facility] HDL Cholesterol 42 35 - 135 09/16/2020 [place] [facility] MG/DL 4:56 PM EDT [facility] Total Chol / HDL 2.8 <4.5 09/16/2020 [place] [facility] Cholesterol 4:56 PM EDT [facility] Non-HDL 76 MG/DL 09/16/2020 [facility] Cholesterol 4:56 PM EDT [facility] Comment: TARGET: <(LDL-C TARGET + 30)MG /DL Coronary Heart Disease Risk 09/16/2020 4 :56 PM EDT [facility] Comment: TOTAL CHOLESTEROL/HDL RATIO:CHD RISK CORONARY HEART DISEASE RISK TABLE ?MEN ? WOMEN 1/2 AVERAGE RISK ?3.4 ?3.3 AVERAGE RISK ?5.8 ?4.4 2 X AVERAGE RISK ?9.6 ?7.1 3 X AVERAGE RISK ?23.4 ? 11.0 Use the calculated Patient Ratio and the CHD Risk Table to determine the patient's CHD Risk. ATP III Classification (LDL): <100 ? mg/dl ? Optimal 100-129 ?mg/dl ? Near or Above O ptimal 130-159 ?mg/dl ? Borderline 160-189 ?mg/dl ? High >190 ? mg/dl ? Very High Specimen Anatomical Collection Method / Collection Time Recei ericka Time (Source) Location / Volume Laterality Blood Venipuncture / 09/16/2020 12:01 1 Unknown PM EDT 12:01 PM EDT Neal Breen MD LAB BLOOD ORDERABLES Performing Organization Address City/State/ZIP Code Phon e Number [facility] CLIA# [id number] [place] [address] [facility] [place] (ABNORMAL) Basic Metabolic Panel (09/16/2020 12:01 PM EDT) P athologist Signature Sodium 141 135 - 146 09/16/2020 [facility] MMOL/L 4:56 PM EDT [facility] Potassium 4.2 3.5 - 5.3 09/16/2020 [facility] MMOL/L 4:56 PM EDT [facility] Comment: NO VISIBLE HEMOLYSIS Chloride 107 98 - 110 MMOL/L 09/16/2020 4:56 PM EDT N [facility] CO2 27 23 - 30 MMOL/L 09/16/2020 4:56 PM EDT [facility] BUN 18 8 - 24 MG/DL 09/16/2020 4:56 PM EDT [facility] Glucose 127 (H) 70 - 99 MG/DL 09/16/2020 4:56 PM EDT [facility] Comment: Patients taking eltrombopag at doses >/= 100 mg daily may show falsely elevated values of 10% or greater. Creatinine 1.15 0.50 - 1.50 09/16/2020 4:[address] MG/DL [facility] Calcium 8.8 8.5 - 10.5 MG/DL 09/16/2020 4:56 PM [facility] Anion Gap 7 4 - 14 MMOL/L 09/16/2020 [facility] Est. GFR Non- 67 >=60 ML/MIN/1.73 09/16/2020 4 :56 PM [facility] [place] M*2 EDT [facility] Comment: GFR estimated by CKD-EPI equati ons, reportable up to 90 ML/MIN/1.73 M*2 Specimen Anatomical Collection Method / Collection Time Recei ericka Time (Source) Location / Volume Laterality Blood Venipuncture / 09/16/2020 12:01 1 Unknown PM EDT 12:01 PM EDT Neal Breen MD LAB BLOOD ORDERABLES Performing Organization Address City/State/ZIP Code Phon e Number [facility] CLIA# [id number] [place] [address] [facility] [place] Hemoglobin A1C (09/16/2020 12:01 PM EDT) athologist Signature HEMOGLOBIN A1C 5.5 <5.7 % 09/16/2020 [facility] 6:06 PM EDT [facility] Comment: Normal: ? Less than 5.7% Prediabetes: ??5.7% to 6.4% Diabetes: ? Greater than 6.4% eAG 111 MG/DL 09/16/2020 6:06 PM EDT [facility] eAG Comment 09/16/2020 6:06 PM EDT [facility] Comment: The [place] [employer] on has supported the use of estimated Average Glucose calculated from Hemoglobin A1c f or the determination of long-term (2-3 month) diabetic control in patients with diabet es. The estimated Average Glucose will likely not match with single daily glucose resu lts and does not reflect sudden changes in daily glucose. Specimen Anatomical Collection Method / Collection Time Recei ericka Time (Source) Location / Volume Laterality Blood Venipuncture / 09/16/2020 12:01 1 Unknown PM EDT 12:01 PM EDT Neal Breen MD LAB BLOOD ORDERABLES Performing Organization Address City/State/ZIP Code Phon e Number [facility] CLIA# [id number] [place] [address] [facility] [place] documented in this encounter Visit Diagnoses Diagnosis Type 2 diabetes mellitus with hyperglyce jackelyn, without long-term current use of insulin (HCC) Hypertension associated with diabetes (H CC) Unspecified essential hypertension Hyperlipidemia due to type 2 diabetes me llitus (HCC) documented in this encounter Care Teams Bus Attendant Relationship Specialty Start Date End Date Neal Breen MD PCP - General Family Medicine 07/31/18 07/14/[address] [place] [id number] documented as of this encounter
--- OUTSIDE RECORDS SUMMARY | 2021-11-30 11:46 | XMS_ITS | Encounter Summary ---
:1955 Author Organization [facility] [place] [address] Care Team Providers Name Role Phone Neal Breen MD Primary Care Provider [phone] Encounter Details Date Type Department Care Team Description 09/16/2020 Travel Social History Tobacco Use Types Packs/Day [...] on filedocumented in this encounter Care Teams Feed Project Engineer Relationship Specialty Start Date End Date Neal Breen MD PCP - General Family Medicine 07/31/18 07/14/[address] [place] [address] documented as of this encounter
--- OUTSIDE RECORDS SUMMARY | 2021-11-30 11:46 | XMS_ITS | Encounter Summary ---
:1955 Author Organization [facility] [place] [address] Care Team Providers Name Role Phone Neal Breen MD Primary Care Provider [phone] Reason for Visit Auth/Cert Specialty Diagnoses / Procedures Referred By Contact Refer red To Contact Diagnoses screening Procedures WV COLONOSCOPY FLX DX W/COLLJ SPEC WHEN PFRMD WV COLONOSCOPY W/BIOPSY SINGLE/MULTIPLE WV COLON CA SCRN NOT HI RSK IND WV COLORECTAL SCRN, HI RISK IND COLONOSCOPY Referral ID Status Reason Start Date Expiration Date Visits Requ ested Visits Authorized [id number] 1 1 Encounter Details Date Type Department Care Team Description 04/28/2020 Anesthesia Event Endoscopy - William Lynn II[place] [address] [place] [address] [place] [address] [place] [address] Anesthesia Record Procedure Summary Procedure Name Responsible Anesthesia Start Anesthesia Stop Anesthesiologist Time Time COLONOSCOPY (N/A William Ball II, MD 04/28/20 1147 04/28 1208 Rectum) Events Date Time Event Comment 04/28/2020 0944 1147 An Start 1147 An Start Data 1153 Start of OR sedation 1155 Anesthesia Ready 1155 Proc Start/No Incision 1207 an stop data Patient arouses, SR, VSS. Report given to RN. 1208 Post Proc Handoff I completed my handoff to the receiving clinician during which we: 1. Identified the patient 2. Ident ified the responsible provider 3. Reviewed the pertinent medical history 4. Discussed the ho rgical course 5. Reviewed intra-op anesthe daniel management and issues during anesthesi a 6. Set expectations for post-procedure p eriod 7. Allowed opportunity for questions an d acknowledgement of understanding. 1208 An Stop Name Total Propofol Bolus 10 mg/ml 180 mg lidocaine injection PF 2 % 25 mg Lactated Ringers 700 mL Agents Name O2 Blood No blood administrations on file. Lines, Drains, and Airways Type Details Placement Removal Airway 03/29/19; 1451 (created 03/29/19 1451 by Lorri via procedure Siddhartha Pathak, TOOL CRIB LEAD documentation); LMA; 4.5 mm Incision 03/29/19; 1503; No; 03/29/19 1503 by Francisco Urethra; no wound Chava Ravi RN Urethral Catheter 03/29/19; 1517; 03/29/19 1517 by Francisco 0000 by Completed; Refer to BERNARD Styles foley catheter order; RN Completed; Completed; Completed; Completed; Completed; Non-latex; 30 Fr.; 1; Not present on arrival/admission Peripheral IV 04/28/20; 0904; 04/28/20 0904 by Geri 04/28/20 1240 by Janey Carpenter Leigh Waller, RN Susan Leigh Wal ler, Proximal; Forearm; No; RN No; Alcohol; None; Tolerated well; Yes documented in this encounter Social History Tobacco [...] or older) documented as of this encounter OR Notes Anesthesia Postprocedure Evaluation - William Ball II, MD - 04/28/2020 1:02 PM EST Anesthesia Post Evaluation Patient: Dario Contrerasyelitza Mckeon Procedures performed: Procedure(s) (LRB): COLONOSCOPY (N/A) Last vitals: Vitals Value Taken Time BP 102/59 04/28/20 1240 Temp 97.8 ??F (36.6 ??C) 04/28/20 1240 Pulse Resp 20 04/28/20 1240 SpO2 96 % 04/28/20 1240 Final Anesthetic Type: General Patient Evaluation Location: PACU Patient Participation: Patient participated Level of Consciousness: awake and alert and oriented Pain Score: pain well controlled (patient comfortable/resting) Pain Management: adequately controlled during entire PACU stay Nausea/Vomiting: None Post-op vitals signs: Stable Post op temperature: Normothermic Cardiovascular Status: hemodynamically stable Respiratory Status: Stable, room air, spontaneous Postoperative Hydration: adequately hydrated Post op disposition: Home Anesthetic Complications: no anesthesia complications noted Additional Comments: Did great No complications documented. Electronically signed by: William Ball II, MD 04/28/20 1302 Anesthesia Preprocedure Evaluation - William Cameron Ball II, MD - 04/22/2020 11:03 AM EST DAY OF SURGERY PREOPERATIVE ANESTHESIA EVALUATION Telephone Note Subject: Self-Quarantine The patient was informed of our pre-operative guidance for elective surgeries during the COVID19 pandemic. These guidelines include our recommendation to self-isolate for 7 days prior to the day of surgery, and that the patient must monitor for signs of respiratory illness, monitor his/her body temperature once daily and bring the written temperature record with him/her for review by the surgical team in pre-operative holding on the day of surgery. The patient verbalized his/her understanding of these requirements and agrees that failure to comply may result in cancellation of the surgery. The patient was also advised that he/she will undergo testing for COVID19 no later than four days before surgery and that if any evidence of COVID19 is noted pre-operatively, the surgery may be cancelled. The patient was given a scheduled appointment date, time and location for COVID testing. Electronically signed by: Kim Llanos RN 04/22/2020 11:54 AM [facility] [place] [facility] [place] [facility] [place] Pre-op Note Dario Mckeon, [id number], 64 y.o., male DOS / PROCEDURE: 04.28.2020-Colonoscopy History of Anesthetic Complications/Concerns: None MARTA Diagnosis: YES MARTA Risk Factor Score: NON- Compliant with CPAP Evaluation for Sleep Apnea Initial Consult Made: No Home Oxygen: No [facility] [place] [place] call complete. All appropriate screenings completed. Patient has met criteria for DOS workup. Opportunity for questions given and answered. [facility] [place] [place] phone number given for future concerns. The Screening Process/Questionnaire 1. Antiplatelet/Coag No 2. Smoker non-smoker 3. Recent Illness No 4. Recent Hospitalization No Arianne Education Sent: No Transportation DOS: Personal Spouse- Pat DOS medication administration given by [facility] [place] [place] per anesthesia guidelines with small sip of water. Pt verbalized understanding. Instructions as follows: Current Medications - Follow these instructions in preparation for your surgery Medication Sig Extra Info ??? atorvastatin (LIPITOR) 20 MG tablet TAKE 1 TABLET(20 MG) BY MOUTH DAILY Take as usual ??? buPROPion SR (WELLBUTRIN SR) 100 MG 12 hr tablet Take 1 tablet (100 mg total) by mouth 2 times daily. Take as usual ??? donepezil (ARICEPT) 10 MG tablet Take 10 mg by mouth in the morning and at bedtime. Take as usual ??? flecainide (TAMBOCOR) 100 MG tablet TAKE 1 TABLET(100 MG) BY MOUTH TWICE DAILY Take as usual ??? fluticasone propionate (FLONASE) 50 mcg/actuation nasal spray SHAKE LIQUID AND USE 2 SPRAYS IN EACH NOSTRIL TWICE DAILY (Patient taking differently: by Nasal route as needed. ) Do not take day of surgery ??? ibuprofen (ADVIL,MOTRIN) 200 MG tablet Take 200 mg by mouth every 6 (six) hours as needed. Stop 7 days before surgery ??? memantine 28 mg CSpX Take 28 mg by mouth daily. Take as usual ??? metFORMIN ER (GLUCOPHAGE-XR) 500 MG extended release tablet TAKE 1 TABLET(500 MG) BY MOUTH TWICEDAILY WITH MEALS Do not take day of surgery ??? metoPROLOL succinate (TOPROL-XL) 50 MG 24 hr tablet TAKE 1 TABLET BY MOUTH ONCE DAILY Take as usual ??? multivitamin capsule Take 1 capsule by mouth daily. Stop 5 days before surgery ??? naproxen (NAPROSYN) 500 MG tablet Take 1 tablet (500 mg total) by mouth 2 times daily. PRN Stop 7 days before surgery Discharge Plan Post Procedure: Home with family to self-care at discharge. Confirmed understanding of medication instructions for DOS. Gave patient instruction on NPO status and need for responsible adult. Informed patient that he/she would receive phone call the afternoon prior to surgery between 1 and 3 pm with an arrival time for surgery. Informed patient that surgeon and/or surgical navigator needed to be notified if illness develops or medical history changes between now and time of surgery. Preferred pharmacy updated. No questions/concerns at this time. Dario Mckeon ( ) : 1955 PROCEDURE PLANNED He is a 64 y.o. male scheduled for a Procedure(s) (LRB): COLONOSCOPY (N/A). MEDICAL HX/ROS Active Problem List: Patient Active Problem List Diagnosis Date Noted ??? Positive colorectal cancer screening using Cologuard test 04/20/2020 ??? Encounter for screening colonoscopy 04/20/2020 ??? Moderate obstructive sleep apnea 11/20/2019 ??? Hyperlipidemia associated with type 2 diabetes mellitus (HCC) 09/12/2019 ??? Mood disorder (HCC) 04/04/2019 ??? Nontraumatic complete tear of left rotator cuff 12/23/2018 ??? Moderate episode of recurrent major depressive disorder (HCC) 12/14/2018 ??? Tendinopathy of left rotator cuff 06/28/2018 ??? Primary osteoarthritis of right knee 11/02/2017 ??? Mixed hyperlipidemia 09/18/2017 ??? Spondylosis without myelopathy or radiculopathy, lumbar region 09/13/2017 Overview Note: Added automatically from request for surgery [id number] ??? Lumbar facet arthropathy 08/09/2017 Overview Note: Added automatically from request for surgery [id number] ??? Effusion of knee 08/07/2017 ??? History of partial knee replacement 05/10/2017 ??? Spondylosis of lumbosacral region without myelopathy or radiculopathy 04/25/2017 Overview Note: Added automatically from request for surgery [id number] ??? Joint stiffness of spine ??? S/P left unicompartmental knee replacement 11/15/2016 ??? Status post left partial knee replacement ??? Decreased range of motion of left knee ??? Weakness of both lower extremities ??? Gait abnormality ??? Type 2 diabetes mellitus with hyperglycemia ([facility]) 10/17/2016 ??? Hypertension associated with diabetes ([facility]) 10/17/2016 ??? Tachycardia 10/17/2016 ??? Arthritis of knee 08/26/2016 ??? DDD (degenerative disc disease), lumbar 08/17/2016 ??? Spondylosis of lumbar region without myelopathy or radiculopathy 08/17/2016 ??? Chronic bilateral low back pain with right-sided sciatica 07/28/2016 ??? Primary osteoarthritis of left knee 07/28/2016 ??? Primary osteoarthritis of both knees 04/25/2016 ??? Left knee pain 04/25/2016 Active Anesthesia Problem List: Relevant Problems ANESTHESIA (+) Moderate obstructive sleep apnea PULMONARY (+) Moderate obstructive sleep apnea CARDIO (+) Hypertension associated with diabetes (HCC) ENDO (+) Type 2 diabetes mellitus with hyperglycemia (HCC) OTHER (+) Arthritis of knee Surgical History: Past Surgical History: Procedure Laterality Date ??? APPENDECTOMY ??? COLONOSCOPY ??? CYSTOSCOPY W/ INTERNAL URETHROTOMY N/A 03/29/2019 Procedure: CYSTOSCOPY W/ INTERNAL URETHROTOMY; Surgeon: Fady Ndiaye MD; [place] [facility] [place] [facility] [place]; Service: Urology; Laterality: N/A; ??? JOINT REPLACEMENT left knee replacement ??? LUMBAR / THORACIC MEDIAL BRANCH BLOCK N/A 08/02/2017 Procedure: LUMBAR/THORACIC MEDIAL BRANCH BLOCK (Right L2-5); Surgeon: Petr Brito MD; Location: [facility]; Service: Rehab Medicine; Laterality: N/A; ??? LUMBAR / THORACIC MEDIAL BRANCH BLOCK Right 08/15/2017 Procedure: LUMBAR/THORACIC MEDIAL BRANCH BLOCK - Right L2-L5; Surgeon: Neptali Toledo MD; Location: [address] [facility]; Service: Anes Physiatry; Laterality: Right; ??? ROBOTIC YOUSIF UNICOMPARTMENTAL KNEE REPLACEMENT Left 11/01/2016 Procedure: MEDIAL YOUSIF - UNICOMPARTMENTAL KNEE REPLACEMENT - ROBOTIC; Surgeon: Miguelito Manuel MD; Location: OUTPATIENT OR; Service: Orthopedics; Laterality: Left; ??? SKIN BIOPSY Social History: Social History Tobacco Use ??? Smoking status: Former Smoker Types: Cigarettes Quit date: 04/16/1989 Years since quittin.0 ??? Smokeless tobacco: Former User Quit date: 04/21/1994 Substance Use Topics ??? Alcohol use: Yes Frequency: Monthly or less Drinks per session: 1 or 2 Comment: occasional beer Vitals: There were no vitals filed for this visit. ROS: Anesthesia History: Patient has no history of anesthetic complications Exercise Tolerance (METs): 4 METs Respiratory: Patient has sleep apnea (Does not use his CPAP). Patient has no shortness of breath, no asthma. Patient has no COPD. Cardiovascular: He has no hypertension. Patient has hyperlipidemia, dysrhythmias (SVT). Patient has no leg swelling, no palpitations. He has no angina His has no valvular problems/murmurs Additional comments: 02.11.20- Cardiology visit Assessment and Plan: 1. SVT -- remains asymptomatic on flecainide. Intervals adequate on EKG today. 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 He irena BB, but unclear which dose. Will contact his pharmacy for clarification. 2. CV risk-- He remains active without symptoms. He has high lifetime CV risk. Negative stress test 2016. Secondary prevention: BB, statin. Plavix discontinued s/p spontaneous brain hemorrhage. ?? 11-FEB-2020 11:44:35 [facility] ROUTINE RECORD Sinus bradycardia Left anterior fascicular block When compared with ECG of 12-AUG-2019 11:16, No significant change was found Confirmed by Funmilayo Eason 6.4.18- TTE LEFT VENTRICLE The left ventricular size is normal. There is normal left ventricular wall thickness. Left ventricular systolic function is normal. LV ejection fraction = 55-60%. Left ventricular filling pattern is impaired relaxation. No segmental wall motion abnormalities seen in the left ventricle. HEENT: Patient has no history of posterior bleeds, no cervical pain. Additional comments: Environmental allergies- PND Bilateral aides Neurological: He has a history of CVA (2018). He has a history of no TIA, no headaches, no dizziness, no history of syncopal episodes. He has Seizures (S/P heat stroke- not on medication). His seizures are well controlled. The patient's last episode was > 1 year ago. Frequency: one-time. The patient has neuromuscular disease (rt side sciatica). The type is: other. Additional comments: H/O brain hemorrhage 2018 Musculoskeletal: Patient has back pain. Patient has no gait problem. He has no positioning concerns.Additional comments: OA- DDD Gastrointestinal: Patient has no GERD. He has no nausea, no vomiting, no hepatitis, no cirrhosis. Genitourinary: Additional comments: Obstructed urethra Endocrine/Chemotherapy: Patient has diabetes (11.30.20- A1C- 5.5) type 2. His diabetes is well controlled. He is not using insulin. He has none as complications of diabetes. He has no hyperthyroidism, no hypothyroidism. Hematological/Lymphatic: negative hematology ROS The patient has no excessive bruising, no excessivebleeding, no hemophilia. Skin: negative skin ROS. Behavioral/Psychiatric: Patient has depression, dementia. Howell Activity Status Index: DASI Total Score: 31.45 DASI METs: 6.61 OBJECTIVE Medications: Allergies Allergen Reactions ??? Morphine Anaphylaxis (ALLERGY) ??? Sulfamethoxazole Anaphylaxis (ALLERGY) ??? Sulfasalazine Itching / Pruritis (ALLERGY/intolerance) ??? Ciprofloxacin Other (See Comments) Sever yeast infection ??? Codeine Phosphate Urticaria / Hives (ALLERGY) ??? Pollen Extracts Other (See Comments) Runny nose No current facility-administered medications for this encounter. Current Outpatient Medications: ??? atorvastatin (LIPITOR) 20 MG tablet, TAKE 1 TABLET(20 MG) BY MOUTH DAILY, Disp: 90 tablet, Rfl: 3 ??? buPROPion SR (WELLBUTRIN SR) 100 MG 12 hr tablet, Take 1 tablet (100 mg total) by mouth 2 times daily., Disp: 180 tablet, Rfl: 5 ??? donepezil (ARICEPT) 10 MG tablet, Take 10 mg by mouth in the morning and at bedtime. , Disp: , Rfl: ??? flecainide (TAMBOCOR) 100 MG tablet, TAKE 1 TABLET(100 MG) BY MOUTH TWICE DAILY, Disp: 180 tablet, Rfl: 3 ??? fluticasone propionate (FLONASE) 50 mcg/actuation nasal spray, SHAKE LIQUID AND USE 2 SPRAYS IN EACH NOSTRIL TWICE DAILY (Patient taking differently: by Nasal route as needed. ), Disp: 16 g, Rfl: 5 ??? ibuprofen (ADVIL,MOTRIN) 200 MG tablet, Take 200 mg by mouth every 6 (six) hours as needed., Disp: , Rfl: ??? memantine 28 mg CSpX, Take 28 mg by mouth daily., Disp: , Rfl: ??? metFORMIN ER (GLUCOPHAGE-XR) 500 MG extended release tablet, TAKE 1 TABLET(500 MG) BY MOUTH TWICE DAILY WITH MEALS, Disp: 180 tablet, Rfl: 5 ??? metoPROLOL succinate (TOPROL-XL) 50 MG 24 hr tablet, TAKE 1 TABLET BY MOUTH ONCE DAILY, Disp: 180 tablet, Rfl: 5 ??? multivitamin capsule, Take 1 capsule by mouth daily., Disp: , Rfl: ??? naproxen (NAPROSYN) 500 MG tablet, Take 1 tablet (500 mg total) by mouth 2 times daily. PRN, Disp: 180 tablet, Rfl: 5 Labs: Lab Results Component Value Date WBC 6.9 01/12/2019 HGB 13.1 (L) 01/12/2019 HCT 39.9 (L) 01/12/2019 PLT 268 01/12/2019 Lab Results Component Value Date NA 141 09/12/2019 K 4.0 09/12/2019 CL 108 09/12/2019 CO2 27 09/12/2019 CREATININE 1.10 09/12/2019 GLU 118 (H) 09/12/2019 CALCIUM 9.1 09/12/2019 PROT 6.6 01/03/2019 ALBUMIN 3.8 01/03/2019 BILITOT 0.9 01/03/2019 ALKPHOS 69 01/03/2019 AST 23 01/03/2019 ALT 22 01/03/2019 Lab Results Component Value Date HBA1C 5.5 03/16/2020 HBA1C 5.5 09/12/2019 Lab Results Component Value Date INR 0.91 09/16/2017 No results found for: TSH PHYSICAL EXAM Airway: Mallampati Score: II TM Distance (FB): 3 Oral Aperture (FB): 3 Face: normal features Neck: full ROM Dental: normal Heart Rate: normal Heart rhythm: regular Lungs: Breath sounds clear to auscultation ASSESSMENT/PLAN HPI: As per ROS. FBS 118. GA likely minus a/w device described and discussed. R/B and SE understood. WTP. ANESTHESIA PLAN: ASA Score: 2 Maintenance plan options discussed:general Post Op Plan: Outpatient PACU Reviewed: history and physical reviewed, NPO status verified, pre-procedure vital signs reviewed, existing labs reviewed PLAN FACTORS: INFORMED CONSENT: Anesthesia Consent: Plan discussed with patient. Blood product consent: Use of blood products discussed with. Consented to blood products. ATTENDING ATTESTATION: ???I have perfomed my preanesthesia assessment and reevaluated this patient immediately prior to this procedure. I have reviewed the patient???s medical, surgical, anesthesic history and confirmed surgical site and blood product availability as it applies. I have reviewed current medication(s), drug allergies, lab results, ancillary studies and consultations within the EMR. Medication guidelines appropriate for surgical urgency have been followed. I have confirmed NPO status as applicable to the relative urgency of this case. I have confirmed the ASA status of this patient. Anesthesia risks, benefits and alternatives have been discussed with this patient or the patient???slegal field representative. I have discussed the anesthetic plan with the Injection Molding Supervisor and/or TOOL CRIB LEAD and/or SRNA prior to initiating this anesthetic. Electronically signed by: William Ball II, MD Date: 04/28/2020 Time: 9:43 AM Electronically signed by: Kim Llanos RN 04/22/20 1106 Electronically signed by: Kim Llanos RN 04/22/20 1202 Electronically signed by: William Ball II, MD 04/28/20 0943 documented in this encounter Miscellaneous Notes Transfer of Care - Cristy Macias CRNA - 04/28/2020 12:08 PM EST Patient arouses, SR, VSS. Report given to RN.PACU NOTE: Electronically signed by: Cristy Macias CRNA 04/28/20 1208 documented in this encounter Plan of Treatment Not on filedocumented as of this encounter Visit Diagnoses Not on filedocumented in this encounter Administered Medications Inactive Administered Medications - up to 3 most recent administrations Medication Order MAR Action Action Date Dose Rate Site lactated ringers infusion New Bag 04/28/2020 9:48 AM EST Intra-op continuous PRN, Starting on Mon04/28/20 at 0948, Anesthesia Intra-op lidocaine (PF) (XYLOCAINE) 20 mg/mL (2 %) Given 04/28/2020 11:53 AM EST 25 mg injection Intra-op PRN, Starting on Mon04/28/20 at 1153, Anesthesia Intra-op propofol (DIPRIVAN) bolus 10 mg/mL Given 04/28/2020 12:03 PM EST 20 mg Intra-op PRN, Intravenous, Starting on Mon04/28/20 at 1153, Anesthesia Intra-op Given 04/28/2020 12:01 PM EST 20 mg Given 04/28/2020 11:59 AM EST 20 mg documented in this encounter Care Teams Carpenter Relationship Specialty Start Date End Date Neal Breen MD PCP - General Family Medicine 07/31/18 07/14/[address] [place] [address] documented as of this encounter
--- OUTSIDE RECORDS SUMMARY | 2021-11-30 11:46 | XMS_ITS | Encounter Summary ---
:1955 Author Organization [facility] [place] [address] Care Team Providers Name Role Phone Neal Breen MD Primary Care Provider [phone] Encounter Details Date Type Department Care Team Description 05/28/2020 Travel Social History Tobacco Use Types Packs/Day [...] on filedocumented in this encounter Care Teams Pie Maker Relationship Specialty Start Date End Date Neal Breen MD PCP - General Family Medicine 07/31/18 07/14/[address] [place] [address] documented as of this encounter
--- OUTSIDE RECORDS SUMMARY | 2021-11-30 11:46 | XMS_ITS | Encounter Summary ---
:1955 Author Organization [facility] [place] [address] Care Team Providers Name Role Phone Neal Breen MD Primary Care Provider [phone] Reason for Visit Reason Comments Follow-up 6 m f/u & EKG Encounter Details Date Type Department Care Team Description 08/11/2020 Office Visit Cardiology - Funmilayo Eason Supraventricu lar Jennifer Grover MD tachycardia (HCC) [address] [place] [place] [address] [address] [place], [place] [phone] Social History Tobacco Use Types Packs/Day [...] been in contact with No / Unsure 08/11/2020 10:16 AM EDT someone who was confirmed or suspected to have Coronavirus / COVID-19? documented as of this encounter Last Filed Vital Signs Vital Sign Reading Time Taken Comments Blood Pressure 132/84 08/11/2020 10:16 AM EDT Pulse 54 08/11/2020 10:16 AM EDT Temperature 35.7 ??C (96.2 ??F) 08/11/2020 10:16 AM EDT Respiratory Rate - - Oxygen Saturation 98% 08/11/2020 10:16 AM EDT Inhaled Oxygen Concentration - - Weight 111.8 kg (246 lb 6 oz) 08/11/2020 10:16 AM EDT Height 177.8 cm (5' 10) 08/11/2020 10:16 AM EDT Body Mass Index 35.35 08/11/2020 10:16 AM EDT documented in this encounter Functional [...] encounter Progress Notes Funmilayo Eason MD - 08/11/2020 10:00 AM EDT Problem List: 1. SVT- R atrial foci - s/p AFL ablation but unsuccessful AT ablation A. Controlled on flecainide B. Negative nuclear perfusion scan 04/24/2015 2. DM2 3. OA s/p TKA 4. 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 atorvastatin (LIPITOR) 20 MG tablet TAKE 1 TABLET(20 MG) BY MOUTH DAILY 90 tablet 3 ??? buPROPion SR (WELLBUTRIN SR) 100 MG 12 hr tablet Take 1 tablet (100 mg total) by mouth 2 times daily. (Patient taking differently: Take by mouth. One tablet in the am and 1.5 tablets in the pm ) 180 tablet 5 ??? donepezil (ARICEPT) 10 MG tablet Take 10 mg by mouth in the morning and at bedtime. ??? flecainide (TAMBOCOR) 100 MG tablet TAKE 1 TABLET(100 MG) BY MOUTH TWICE DAILY 180 tablet 3 ??? ipratropium (ATROVENT) 0.03 % nasal spray 2 sprays by Nasal route 3 times daily. 30 mL 1 ??? memantine 28 mg CSpX Take 28 mg by mouth daily. ??? metFORMIN ER (GLUCOPHAGE-XR) 500 MG extended release tablet TAKE 1 TABLET(500 MG) BY MOUTH TWICEDAILY WITH MEALS 180 tablet 5 ??? metoPROLOL succinate (TOPROL-XL) 50 MG 24 hr tablet TAKE 1 TABLET BY MOUTH ONCE DAILY 180 tablet5 ??? naproxen (NAPROSYN) 500 MG tablet Take 1 tablet (500 mg total) by mouth 2 times daily. PRN 180 tablet 5 ??? multivitamin capsule Take 1 capsule by mouth daily. ??? [DISCONTINUED] albuterol 90 mcg/actuation inhaler Inhale 1-2 puffs into the lungs every 6 (six) hours as needed for Wheezing. 1 each 0 ??? [DISCONTINUED] fluticasone propionate (FLONASE) 50 mcg/actuation nasal spray SHAKE LIQUID AND USE 2 SPRAYS IN EACH NOSTRIL TWICE DAILY (Patient taking differently: by Nasal route as needed. ) 16 g 5 ??? [DISCONTINUED] ibuprofen (ADVIL,MOTRIN) 200 MG tablet Take 200 mg by mouth every 6 (six) hours as needed. No current facility-administered medications on file prior to visit. Interval History: Mr. Mckeon returns for SVT. He feels well. He denies palpitations, lightheadedness or syncope. He denies CP, dyspnea, edema or orthopnea. He is compliant with meds. He admits to feeling his heart race with emotion, like frustration with his , otherwise has nothing to report. Physical Exam: BP 132/84 (Site: Left arm, Position: Sitting, BP Cuff Size: Medium) Pulse 54 Temp (!) 96.2 ??F (35.7 ??C) (Temporal) Ht 1.778 m (5' 10) Wt 111.8 kg (246 lb 6 oz) SpO2 98% BMI 35.35 kg/m?? HEENT: Mucous membranes moist, sclerae anicteric [...] intervals Assessment and Plan: 1. SVT -- remains asymptomatic on flecainide. Intervals adequate on EKG today. No anticoagulation needed since no history of AFL or Afib. Disposition: 6 month f/u Electronically signed by: Funmilayo Eason MD 08/11/20 1222 documented in this encounter Plan of Treatment Not on filedocumented as of this encounter Procedures Procedure Name Priority Date/Time Associated Diagnosis Comme nts CARDIOLOGY SCAN 08/11/2020 9:50 Results f or this PM EDT procedure are i n the results section. EKG - PERFORMED Routine 08/11/2020 10:29 Supraventricular Resu lts for this DURING CLINIC AM EDT tachycardia (HCC) procedure are in VISIT the results section. documented in this encounter Results CARDIOLOGY SCAN (08/11/2020 9:50 PM EDT) Narrative This result has an attachment that is no t available. Default Authenticator [employer] SCANNED DOCUMENTS EKG - PERFORMED DURING CLINIC VISIT (08/11/2020 10:29 AM EDT) Specimen Anatomical Collection Method Collection Time Receive d Time (Source) Location / / Volume Laterality 08/11/2020 10:29 08/11/2020 9:48 AM EDT PM EDT Narrative MUSE - 08/11/2020 9:48 PM EDT Ventricular Rate ? 55 ?BPM ? Atrial Rate ?55 ?BPM ? P-R Interval ? 200 ? ms ? QRS Duration ? 114 ? ms ? Q-T Interval ? 462 ? ms ? QTC ?441 ? ms ? P [place] ? 17 ?degrees ? R [place] ? -52 ? degrees ? [place] ? 33 ?degrees ? Sinus bradycardia Left axis deviation When compared with ECG of 11-FEB-2020 11 :44, No significant change was found Confirmed by Funmilayo Eason ([id number]) on 07/17 9:48:45 PM Procedure Note Funmilayo Eason MD - 08/11/2020For matting of this note might be different from the original. Ventricular Rate 55 BPM Atrial Rate 55 BPM P-R Interval 200 ms QRS Duration 114 ms Q-T Interval 462 ms QTC 441 ms P [place] 17 degrees R [place] -52 degrees T [place] 33 degrees Sinus bradycardia Left axis deviation When compared with ECG of 11-FEB-2020 11 :44, No significant change was found Confirmed by Funmilayo Eason ([id number]) on 07/17 9:48:45 PM Funmilayo Eason MD ECG SPECIAL Performing Organization Address City/State/ZIP Code Phon e Number MUSE documented in this encounter Visit Diagnoses Diagnosis Supraventricular tachycardia (HCC) Other specified cardiac dysrhythmias documented in this encounter 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
--- OUTSIDE RECORDS SUMMARY | 2021-11-30 11:46 | XMS_ITS | Encounter Summary ---
:1955 Author Organization [facility] [place] [address] Care Team Providers Name Role Phone Neal Breen MD Primary Care Provider [phone] Reason for Visit Reason Comments Follow-up Hopstial for Bronchitis winter cates better Encounter Details Date Type Department Care Team Description 07/10/2020 Return Patient [facility] Niyah Stern discharge follow-up (Primary Dx); Network STANLEY Morfin Bronchitis; Medicine [facility] [address] [facility] Rhinorrhea [address] [place] [id number] Social History Tobacco Use Types Packs/Day Years Used Date Former Smoker Cigarettes Quit: 04/16/19 89 Smokeless Tobacco: Former User Q uit: 04/21/1994 Tobacco Cessation: Counseling Given: No Alcohol Use [...] Sign Reading Time Taken Comments Blood Pressure 121/77 07/10/2020 3:05 PM EDT Pulse 63 07/10/2020 3:05 PM EDT Temperature 35.9 ??C (96.6 ??F) 07/10/2020 3:05 PM EDT Respiratory Rate 16 07/10/2020 3:05 PM EDT Oxygen Saturation 97% 07/10/2020 3:05 PM EDT Inhaled Oxygen Concentration - - Weight 108 kg (238 lb) 07/10/2020 3:05 PM EDT Height 177.8 cm (5' 10) 07/10/2020 3:05 PM EDT Body Mass Index 34.15 07/10/2020 3:05 PM EDT documented in this encounter Functional [...] documented as of this encounter Progress Notes STANLEY Elmore - 07/10/2020 3:00 PM EDT Images from the original note were not included. [facility] - [address] [address] Date of Visit: 07/10/2020 Chief Complaint: Chief Complaint Patient presents with ??? Follow-up Hopstial for Bronchitis doing better Subjective/HPI: Dario Mckeon is a 64 y.o. male with significant past medical history as documented below. Patient presents today for hospital discharge follow-up. Reports that he feels better now. Has felt back to his normal self for 24 hours now. No longer using albuterol inhaler. He was treated in the emergency department for bronchitis with azithromycin and provided albuterol inhaler. He completed the course of azithromycin and states that he tolerated it well without any GI side effects. His only complaint today is persistent rhinorrhea that has been an ongoing issue for years since he moved here from [place] he says. Symptoms are worse in the morning when he wakes up. He goes through lots of tissues he says. He recently restarted using Flonase and has been using Claritin for several years now. A ROS was performed with pertinent positives/negatives noted in the HPI and ROS above. The following portions of the patient's history were reviewed and updated in EMR as appropriate: allergies, current medications, past family history, past medical history, past social history, past surgical history and problem list. Past Medical History: Diagnosis Date ??? Acute [...] Procedure: COLONOSCOPY; Surgeon: Mckay Sanz MD; Location: [facility]; Service: Gastroenterology; Laterality: N/A; ??? CYSTOSCOPY W/ INTERNAL URETHROTOMY N/A 03/29/2019 Procedure: CYSTOSCOPY W/ INTERNAL URETHROTOMY; Surgeon: Fady Ndiaye MD; Location: [facility]; Service: Urology; Laterality: N/A; ??? JOINT REPLACEMENT left knee replacement ??? LUMBAR / THORACIC MEDIAL BRANCH BLOCK N/A 08/02/2017 Procedure: LUMBAR/THORACIC MEDIAL BRANCH BLOCK (Right L2-5); Surgeon: Petr Brito MD; Location: [facility]; Service: Rehab Medicine; Laterality: N/A; ??? LUMBAR / THORACIC MEDIAL BRANCH BLOCK Right 08/15/2017 Procedure: LUMBAR/THORACIC MEDIAL BRANCH BLOCK - Right L2-L5; Surgeon: Neptail Toledo MD; Location: [address] [facility]; Service: Anes Physiatry; Laterality: [...] Cancer Paternal Grandfather ??? Stroke Neg Hx Current Outpatient Medications on File Prior to [...] as needed. ) 16 g 5 ??? memantine 28 mg CSpX Take [...] times daily. PRN 180 tablet 5 ??? albuterol 90 mcg/actuation inhaler Inhale 1-2 puffs into the lungs every 6 (six) hours as neededfor Wheezing. 1 each 0 ??? ibuprofen (ADVIL,MOTRIN) 200 MG tablet Take 200 mg by mouth every 6 (six) hours as needed. ??? multivitamin capsule Take 1 capsule by mouth daily. ??? [DISCONTINUED] azithromycin (ZITHROMAX) 250 MG tablet Take first 2 tablets together, then 1 every day until finished. 6 tablet 0 No current facility-administered medications on file prior to visit. Social History Socioeconomic History ??? Marital status: Single Spouse name: Not on file ??? Number of children: Not on file ??? Years of education: Not on file ??? Highest education level: Not on file Occupational History ??? Not on file Tobacco Use ??? Smoking status: Former Smoker Types: Cigarettes Quit date: 04/16/1989 Years since quittin.2 ??? Smokeless tobacco: Former User Quit date: 04/21/1994 Substance and Sexual Activity ??? Alcohol use: Yes Comment: occasional beer ??? Drug use: No ??? Sexual activity: Not on file Other Topics Concern ??? Not on file Social History Narrative ??? Not on file Social Determinants of Health Financial Resource Strain: ??? Difficulty of Paying Living Expenses: Food Insecurity: ??? Worried About Running Out of Food in the Last Year: ??? Ran Out of Food in the Last Year: Transportation Needs: ??? Lack of Transportation (Medical): ??? Lack of Transportation (Non-Medical): Physical Activity: ??? Days of Exercise per Week: ??? Minutes of Exercise per Session: Stress: ??? Feeling of Stress : Social Connections: ??? Frequency of Communication with Friends and Family: ??? Frequency of Social Gatherings with Friends and Family: ??? Attends Shinto Services: ??? Active Member of Clubs or Organizations: ??? Attends Club or Organization Meetings: ??? Marital Status: Objective: Vitals: 07/10/20 1505 BP: 121/77 Pulse: 63 Temp: (!) 96.6 ??F (35.9 ??C) Resp: 16 SpO2: 97% PHYSICAL EXAM: General: Well-appearing, cooperative, male sitting comfortably in exam room chair in no acute distress. HEENT: Normocephalic, atraumatic. EOMI. PERRL, conjunctivae clear. Bilateral EAC and TM's unremarkable. Oropharynx w/o erythema or exudate but with cobblestoning. Neck: Supple with normal range of motion, no LAD. Cardiovascular: Regular rate and rhythm. No murmurs, rubs or gallops Resp: Comfortable WOB. CTAB. No wheezes or crackles. Psychiatric: Mood and affect are appropriate. Assessment/Plan: 1. Hospital discharge follow-up 2. Bronchitis -Vital signs look good today, lung sounds clear. Patient improved. 3. Rhinorrhea -Recommend he change from Claritin to either Xyzal or Ludy OTC. -Recommend he continue using Flonase nasal spray. -If after 1 week of the above he continues to have rhinorrhea, I recommend he try Atrovent in addition--I have provided him with a prescription for Atrovent nasal spray in the event he needs to use it.Otherwise he will not get it filled. No orders of the defined types were placed in this encounter. Requested Prescriptions Signed Prescriptions Disp Refills ??? ipratropium (ATROVENT) 0.03 % nasal spray 30 mL 1 Si sprays by Nasal route 3 times daily. No follow-ups on file. I discussed the medical issues and above recommendations with patient and/or family, all questions were answered. Future Appointments Provider Department Dept Phone Center 08/11/2020 10:00 AM Arianna Alvares [facility] [place] [phone] [facility] 09/16/2020 11:20 AM Neal Breen [facility] [place] [phone] [facility] 11/25/2020 10:40 AM Tr Martinez [facility] [place] [phone] [facility] This document may be created using the aid of voice recognition [employer] dictation software. I agree the documentation is accurate and complete. 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
--- OUTSIDE RECORDS SUMMARY | 2021-11-30 11:46 | XMS_ITS | Encounter Summary ---
:1955 Author Organization [facility] [place] [address] Care Team Providers Name Role Phone Neal Breen MD Primary Care Provider [phone] Reason for Referral Consultation (Routine) - Closed Specialty Diagnoses / Procedures Referred By Contact Refer red To Contact Ophthalmology Diagnoses Type 2 diabetes mellitus with hyperglycemia, without long-term current use of insulin (HCC) Neal Breen MD [address] [place] [address] [place] [address] Referral ID Status Reason Start Date Expiration Date Visits V isits Requested Authorized [id number] Closed Specialty 09/16/2020 09/16/2021 1 1 Services Required Reason for Visit Reason Comments Diabetes Encounter Details Date Type Department Care Team Description 09/16/2020 Office Visit [facility] Neal Breen Type 2 diabetes mellitus with hyperglycemia, without long-term current use of insulin (HCC) (Primary Dx); Alberto Rivera MD Hypertension associated with diabetes (H CC); [facility] - [address] Hyperlipidemia due to type 2 diabetes mellitus (HCC); [address] [place] [address] Dr TOPETE Pain of toe of left foot; [place], [place] Dry skin [id number] Social History Tobacco Use Types [...] Sign Reading Time Taken Comments Blood Pressure 123/82 09/16/2020 11:39 AM EDT Pulse 63 09/16/2020 11:39 AM EDT Temperature 36.6 ??C (97.9 ??F) 09/16/2020 11:39 AM EDT Respiratory Rate 16 09/16/2020 11:39 AM EDT Oxygen Saturation 97% 09/16/2020 11:39 AM EDT Inhaled Oxygen Concentration - - Weight 112.5 kg (248 lb) 09/16/2020 11:39 AM EDT Height 177.8 cm (5' 10) 09/16/2020 11:39 AM EDT Body Mass Index 35.58 09/16/2020 11:39 AM EDT documented in this [...] encounter Progress Notes Neal Breen MD - 09/16/2020 11:20 AM EDT Chief Complaint Patient presents with ??? Diabetes HPI Patient comes in today for follow-up of multiple chronic medical problems and notes he is overall doing well. DM2 is been a problem for years. Due for a diabetic foot exam, A1c for monitoring, as well as a diabetic eye exam. Notes he thinks his sugars have been okay. Hypertension-has also been a problem for years. BP is at goal today. He has been on metoprolol and flecainide for rhythm management. Hyperlipidemia-he is stable on atorvastatin without report of myalgias or any other drug intolerance. Needs refills today and is due for lipid panel for monitoring. Also notes some dry skin of the feet and also that he accidentally ran over his right fifth toe witha hand truck and a stove about 2 weeks ago when he was trying to upgrade his home in the kitchen. ROS -As noted in HPI Past Medical History: Diagnosis Date ??? Acute CVA (cerebrovascular accident) (HCC) 09/16/2017 ??? Arthritis ??? Back pain ??? 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 Cerebral brain hemorrhage (HCC) ??? Diabetes mellitus (HCC) ??? Hyperlipemia ??? MARTA (obstructive sleep apnea) ??? Ruptured appendix ??? Tachycardia Exam Vitals: 09/16/20 1139 BP: 123/82 Pulse: 63 Temp: 97.9 ??F (36.6 ??C) Resp: 16 SpO2: 97% PainSc: 2-Two (mild) Body mass index is 35.58 kg/m??. Constitutional: Patient appears well-developed and well-nourished. No distress. Obese Eyes: Conjunctivae are normal. Right eye exhibits no discharge. Left eye exhibits no discharge. No scleral icterus. Pulmonary/Chest: Effort normal. No respiratory distress. Neurological: Alert. Skin: No rash noted. Not diaphoretic. Mild dry skin of bilat feet Psychiatric: Patient has a normal mood and affect. Foot exam performed including visual inspection, sensory exam using a monofilament, and pulse exam. Mild swelling and bruising noted of L 5th toe without gross deformity. Assessment 1. Type 2 diabetes mellitus with hyperglycemia, without long-term current use of insulin (HCC) Hemoglobin A1C Albumin, Urine Basic Metabolic Panel Lipid Profile Ambulatory Referral To Ophthalmology 2. Hypertension associated with diabetes (HCC) Albumin, Urine Basic Metabolic Panel 3. Hyperlipidemia due to type 2 diabetes mellitus (HCC) Lipid Profile 4. Pain of toe of left foot 5. Dry skin Plan 1. DM2-chronic, stable. Checking multiple labs today and perform diabetic foot exam. Hopefully remains diet controlled. 2. Hypertension-chronic, stable, at goal. Reviewed previous BPs and given his diabetes we had a discussion today and are going to try addition of a tiny dose of lisinopril for renal protection. Starting 2.5 mg daily. Counseled re: signs of symptomatic hypotension and re: specific risks with lisinoprilincluding dry cough and rare risk of anaphylaxis. Refill metoprolol 3. Hyperlipidemia-chronic and stable. Refill atorvastatin and checking lipids today. 4. Pain of toe of left foot-it is possible he may have a fracture however there is no gross deformity. Suggested yola taping. We both agreed that there is likely no reason for imaging or advanced intervention. 5. Dry skin-OTC moisturizing lotion of choice Orders Placed This Encounter Medications ??? atorvastatin (LIPITOR) 20 MG tablet Sig: TAKE 1 TABLET(20 MG) BY MOUTH DAILY Dispense: 90 tablet Refill: 3 ??? metoPROLOL succinate (TOPROL-XL) 50 MG 24 hr tablet Si tab PO daily Dispense: 180 tablet Refill: 5 ??? lisinopriL (PRINIVIL,ZESTRIL) 2.5 MG tablet Sig: Take 1 tablet (2.5 mg total) by mouth daily. Dispense: 90 tablet Refill: 5 This document was created using the aid of voice recognition [employer] dictation software. Electronically signed by: Neal Breen MD 09/16/20 1318 documented in this encounter Plan of Treatment Scheduled Referrals Name Type Priority Associated Order Schedule Diagnoses Ambulatory Referral Outpatient Routine Type 2 diabetes 1 Occ urrences To Ophthalmology Referral mellitus with starting 0 09/16/2020 hyperglycemia, until 022 without long-term current use of insulin (HCC) documented as of this encounter Procedures Procedure Name Priority Date/Time Associated Diagnosis Comme nts ALBUMIN, URINE Routine 09/16/2020 4:00 PM Type 2 diabetes Resu lts for this EDT mellitus with procedure are in the hyperglycemia, results secti on. without long-term current use of insulin (HCC) Hypertension associated with diabetes (HCC) documented in this encounter Results Albumin, Urine (09/16/2020 4:00 PM EDT) Patholo gist Method Time Signature Urine Albumin 26 MG/L 09/16/2020 [facility] 9[facility]24 PM [facility] U Creatinine 199 MG/DL 09/16/2020 [facility] 9:24 PM EDT [facility] U Albumin/G 13 0 - 30 mg/G 09/16/2020 [facility] Creatinine CREATININE 9:24 PM EDT [facility] U Interval Random 09/16/2020 [facility] 9:24 PM EDT [facility] Volume 40 ML 09/16/2020 [facility] 9:24 PM EDT [facility] Protein 28 MG/DL 09/16/2020 [facility] 9:24 PM EDT [facility] Specimen Anatomical Collection Method Collection Time Receive d Time (Source) Location / / Volume Laterality Urine 09/16/2020 4:00 PM 4:00 EDT PM EDT Neal Breen MD URINE ORDERABLES Performing Organization Address City/State/ZIP Code Phon e Number [facility] CLIA# [id number] [place] [address] [facility] [place] Lipid Profile (09/16/2020 12:01 PM EDT) Analysis Performed At Patho logist Time Signature LDL Direct 55 <130 mg/dL 09/16/2020 [facility] 4:56 PM EDT [facility] Total Cholesterol 118 25 - 199 09/16/2020 [facility] MG/DL 4:56 PM EDT [facility] Triglycerides 144 10 - 150 09/16/2020 [place] [facility] MG/DL 4:56 PM EDT [facility] HDL Cholesterol 42 35 - 135 09/16/2020 [place] [facility] MG/DL 4:56 PM EDT [facility] Total Chol / HDL 2.8 <4.5 09/16/2020 [facility] Cholesterol 4:56 PM EDT [facility] Non-HDL 76 MG/DL 09/16/2020 [facility] Cholesterol 4:56 PM EDT [facility] Comment: TARGET: <(LDL-C TARGET + 30)MG /DL Coronary Heart Disease Risk 09/16/2020 4 :56 PM EDT [facility] Table [facility] Comment: TOTAL CHOLESTEROL/HDL RATIO:CHD [...] Organization Address City/State/ZIP Code Phon e Number [facility] CLIA# [id number] [place] [address] [facility] [place] (ABNORMAL) Basic Metabolic Panel (09/16/2020 12:01 PM EDT) P athologist Signature Sodium 141 135 - 146 09/16/2020 [place] [facility] MMOL/L 4:56 PM T [facility] Potassium 4.2 3.5 - 5.3 09/16/2020 [place] [facility] MMOL/L 4:56 PM T [facility] Comment: NO VISIBLE HEMOLYSIS Chloride 107 98 - 110 MMOL/L 09/16/2020 4:56 PM EDT [facility] CO2 27 23 - 30 MMOL/L 09/16/2020 4:56 PM EDT [facility] BUN 18 8 - 24 MG/DL 09/16/2020 4:56 PM EDT [facility] Glucose 127 (H) 70 - 99 MG/DL 09/16/2020 4:56 PM EDT [facility] Comment: Patients taking eltrombopag at doses >/= 100 mg daily may show falsely elevated values of 10% or greater. Creatinine 1.15 0.50 - 1.50 09/16/2020 4:[address] MG/DL [facility] Calcium 8.8 8.5 - 10.5 MG/DL 09/16/2020 4:56 PM [facility] Anion Gap 7 4 - 14 MMOL/L 09/16/2020 4:56 PM [facility] IS ED[facility] Est. GFR Non- 67 >=60 ML/MIN/1.73 09/16/2020 4 :56 PM [facility] [place] M*2 EDT [facility] Comment: GFR estimated by CKD-EPI equati ons, reportable up to 90 ML/MIN/1.73 M*2 Specimen Anatomical Collection Method / Collection Time Recei ericka Time (Source) Location / Volume Laterality Blood Venipuncture / 09/16/2020 12:01 1 Unknown PM EDT 12:01 PM EDT Neal Breen MD LAB BLOOD ORDERABLES Performing Organization Address City/State/ZIP Code Phon e Number [facility] CLIA# [id number] [place] [address] [facility] [place] Hemoglobin A1C (09/16/2020 12:01 PM EDT) P athologist Signature HEMOGLOBIN A1C 5.5 <5.7 % 09/16/2020 [facility] 6:06 PM EDT [facility] [email or web address] Comment: Normal: ? Less than 5.7% Prediabetes: ??5.7% to 6.4% Diabetes: ? Greater than 6.4% eAG 111 MG/DL 09/16/2020 6:06 PM EDT [facility] [employer] [facility] eAG Comment 09/16/2020 6:06 PM EDT [facility] [email or web address] Comment: The [place] [employer] on has supported the use [...] Organization Address City/State/ZIP Code Phon e Number [facility] CLIA# [id number] [place] [address] [facility] [place] documented in this encounter Visit Diagnoses Diagnosis Type 2 diabetes mellitus with hyperglyce jackelyn, without long-term current use of insulin (HCC) - Primary Hypertension associated with diabetes (H CC) Unspecified essential hypertension Hyperlipidemia due to type 2 diabetes me llitus (HCC) Pain of toe of left foot Dry skin Other symptoms involving skin and integu mentary tissues documented in this encounter Care Teams Assistant Director Of Nursing Relationship Specialty Start Date End Date Neal Breen MD PCP - General Family Medicine 07/31/18 07/14/[address] [place] [id number] documented as of this encounter
--- OUTSIDE RECORDS SUMMARY | 2021-11-30 11:46 | XMS_ITS | Encounter Summary ---
:1955 Author Organization [facility] [place] [address] Care Team Providers Name Role Phone Neal Breen MD Primary Care Provider [phone] Reason for Visit Reason Comments Hematuria Encounter Details Date Type Department Care Team Description 10/01/2020 Emergency Emergency - [facility] Danis Sheriff MD [address] [place] [id number] [place] [id number] (Wo rk) Social History Tobacco Use [...] been in contact with No / Unsure 10/01/2020 4:48 PM EDT someone who was confirmed or suspected to have Coronavirus / COVID-19? documented as of this encounter Last Filed Vital Signs Vital Sign Reading Time Taken Comments Blood Pressure 157/79 10/01/2020 7:55 PM EDT Pulse 51 10/01/2020 7:55 PM EDT Temperature 36.9 ??C (98.4 ??F) 10/01/2020 5:02 PM EDT Respiratory Rate 18 10/01/2020 7:55 PM EDT Oxygen Saturation 99% 10/01/2020 7:55 PM EDT Inhaled Oxygen Concentration - - Weight 111.1 kg (245 lb) 10/01/2020 5:02 PM EDT Height 179.1 cm (5' 10.5) 10/01/2020 5:02 PM EDT Body Mass Index 34.66 10/01/2020 5:02 PM EDT documented in this encounter Functional [...] as of this encounter Discharge Instructions Discharge InstructionsDanis Jamison MD - 10/01/2020 7:50 PM EDT Please follow-up with primary care in the next few days as needed for reevaluation. Return for worsening of your current condition or new or worrisome symptoms including any worsening of your vision. Otherwise see ophthalmology as soon as possible. AttachmentsThe following attachments cannot be sent through Care Everywhere. Ureteral Stones (AfterCare(R) Instructions(ER/ED)) (Portuguese)documented in this encounter Medications at Time of [...] 09/16/2020 (TOPROL-XL) 50 MG 24 hr tablet tamsulosin (FLOMAX) 0.4 mg Take 1 capsule 5 capsule 0 10/0110/06/2020 Cap capsule (0.4 mg total) by mouth daily for 5 days. atorvastatin (LIPITOR) 20 TAKE 1 TABLET(20 90 [...] documented as of this encounter ED Notes Danis Jamison MD - 10/01/2020 6:05 PM EDT History Chief Complaint Patient presents with ??? Hematuria HPI Dario Mckeon is a 64-year-old male with history of stroke, cancer, diabetes, hyperlipidemia coming in today with concern for flank pain. Right flank pain ongoing the last few days. Worsening. Endorses some bloody urine as well. No nausea vomiting or fevers or chills. Has not tried anything for it. Nothing particularly makes it better or worse. Has a secondary complaint of some right eye issue. States it feels like there is a spider crawling across. No decreased visual acuity. Has not tried anything for this. Has an appointment with ophthalmology in December but is on a waiting list for a sooner appointment Past Medical History: Diagnosis Date ??? Acute [...] Procedure: COLONOSCOPY; Surgeon: Mckay Sanz MD; Location: [facility] OR; Service: Gastroenterology; Laterality: N/A; ??? CYSTOSCOPY W/ INTERNAL URETHROTOMY N/A 03/29/2019 Procedure: CYSTOSCOPY W/ INTERNAL URETHROTOMY; Surgeon: Fady Ndiaye MD; [facility] [facility]; Service: Urology; Laterality: N/A; ??? JOINT REPLACEMENT left knee replacement ??? LUMBAR / THORACIC MEDIAL BRANCH BLOCK N/A 08/02/2017 Procedure: LUMBAR/THORACIC MEDIAL BRANCH BLOCK (Right L2-5); Surgeon: Petr Brito MD; Location: [facility]; Service: Rehab Medicine; Laterality: N/A; ??? LUMBAR / THORACIC MEDIAL BRANCH BLOCK Right 08/15/2017 Procedure: LUMBAR/THORACIC MEDIAL BRANCH BLOCK - Right L2-L5; Surgeon: Neptali Toledo MD; Location: [address] [facility]; Service: Anes Physiatry; Laterality: [...] Smokeless tobacco: Former User Quit date: 04/21/1994 Vaping Use ??? Vaping Use: Never used Substance Use Topics ??? Alcohol use: Yes Comment: occasional beer (very rare) ??? Drug use: No Review of Systems Constitutional: Negative for fever. HENT: Negative for sore throat. Eyes: Positive for visual disturbance. Respiratory: Negative for cough and shortness of breath. Cardiovascular: Negative for chest pain. Gastrointestinal: Negative for abdominal pain, nausea and vomiting. Genitourinary: Positive for flank pain. Negative for dysuria and hematuria. Musculoskeletal: Negative for back pain. Skin: Negative for wound. Neurological: Negative for syncope and headaches. Psychiatric/Behavioral: Negative for agitation. Physical Exam ED Triage Vitals [10/01/20 1702] BP 139/82 MAP (mmHg) Pulse 59 Resp 18 Temp 98.4 ??F (36.9 ??C) SpO2 96 % Weight 111.1 kg (245 lb) Physical Exam Vitals and nursing note reviewed. Constitutional: Appearance: He is well-developed. He is not diaphoretic. HENT: Head: Normocephalic and atraumatic. Nose: Nose normal. Eyes: General: No scleral icterus. Pupils: Pupils are equal, round, and reactive to light. Comments: Visual corrales intact, visual acuity at baseline. Pupils equal and round and reactive to light accommodation. No pain with extraocular movements. Neck: Trachea: No tracheal deviation. Cardiovascular: Rate and Rhythm: Normal rate and regular rhythm. Heart sounds: Normal heart sounds. No murmur heard. No friction rub. Pulmonary: Effort: Pulmonary effort is normal. No respiratory distress. Breath sounds: Normal breath sounds. No wheezing or rales. Chest: Chest wall: No tenderness. Abdominal: General: Bowel sounds are normal. There is no distension. Palpations: Abdomen is soft. Tenderness: There is no abdominal tenderness. There is no guarding or rebound. Comments: Right flank pain Musculoskeletal: General: No tenderness or deformity. Normal range of motion. Cervical back: Normal range of motion. Skin: General: Skin is warm and dry. Coloration: Skin is not pale. Findings: No erythema. Neurological: Mental Status: He is alert and oriented to person, place, and time. Psychiatric: Behavior: Behavior normal. ED Course Procedures EMERGENCY DEPARTMENT US OCULAR EXAM Study: Limited Ultrasound of Orbit INDICATIONS: Floaters/Flashes Linear probe utilized to obtain images in both long and short axis of the orbit having the patient look left and right if possible. PERFORMED BY: Myself IMAGES ARCHIVED?: Yes LIMITATIONS: none VIEWS USED: Right orbit, left orbit INTERPRETATION: No retinal detachment, Lens in proper position and Normal Optic nerve diameter MDM Patient is a pleasant 64-year-old gentleman coming in today with right flank pain. Nontoxic, interactive. Vital stable and reassuring. No apparent distress. Exam as above reveals some mild right flank tenderness. Will obtain labs, imaging, CT scan to assess for pathology. He also has the eye complaint. Psych exam is otherwise reassuring. Will obtain ultrasound to assess for possible retinal detachment/vitreous hemorrhage. Differential includes appendicitis, diverticulitis, ureterolithiasis, AAA, retinal detachment, vitreous hemorrhage. Labs reviewed and interpreted by me overall reassuring. No leukocytosis or emergent anemia. Creatinine slightly elevated but no NÉSTOR. Urine shows blood. It is positive for nitrites and leukocytes however he has no white cells or bacteria and I believe this is likely color interference and unlikely UTI.CT scan reviewed by me does show distal 3 mm stones with mild right hydroureteronephrosis. I do believe this is likely the etiology of his pain. Upon reassessment on 7:45 PM, patient resting in bed. Feels well. Vital signs stable and reassuring.Repeat exam stable. Tolerating p.o. and pain well controlled. Unlikely infected stone. I do believe he will be able to pass these on his own. Will send home with [employer]. Concerning his eye issue, ocular ultrasound was performed. No significant retinal detachment, vitreous hemorrhage or other acute abnormality is noted. Will have him follow-up with his gynecologist and return for any worsening. Patient and significant other comfortable with that. We discussed return precautions as well as follow-up with primary care. Both patient and comfortable with the plan and discharge home and understood the return precautions. Ambulating well at timeof discharge. Clinical Impression: 1. Right flank pain 2. Hydronephrosis, unspecified hydronephrosis type 3. Hydroureter 4. Ureterolithiasis 5. Hematuria, unspecified type 6. Vision abnormalities ED Disposition ED Disposition Condition Comment Discharge Stable Dario Mckeon discharge to home/self care. Electronically signed by: Danis Jamison MD 10/01/201950 Loly Zeng RN - 10/01/2020 5:05 PM EDT Pt reports rt flank pain with hematuria. Pt has hx of kidney stones. documented in this encounter Plan of Treatment Not on filedocumented as of this encounter Procedures Procedure Name Priority Date/Time Associated Comments Diagnosis POCUS-OCULAR STAT 10/01/2020 7:45 PM Results f or this EDT procedure are i n the results section. CT ABDOMEN PELVIS W STAT 10/01/2020 7:02 PM Right flank delvin n Results for this CONTRAST (ROUTINE) EDT procedure are in the results section. UA, MICROSCOPIC IF STAT 10/01/2020 6:12 PM Res ults for this INDICATED BY DIPSTICK EDT proced ure are in the results section. CBC WITH AUTO STAT 10/01/2020 5:28 PM Results for this DIFFERENTIAL PANEL EDT procedure are in the results section. CBC AND DIFFERENTIAL STAT 10/01/2020 5:28 PM R esults for this EDT procedure are i n the results section. COMPREHENSIVE STAT 10/01/2020 5:28 PM Results for this METABOLIC PANEL EDT procedure ar e in the results section. documented in this encounter Results POCUS-OCULAR (10/01/2020 7:45 PM EDT) Anatomical Region Laterality Modality Ultrasound Specimen (Source) Anatomical Collection Method Collection Time Re ceived Time Location / / Volume Laterality 10/01/2020 7:34 PM EDT Narrative 10/01/2020 8:11 PM EDT POCUS Ocular: ?Exam Information: ?Exam category: ??Diagnostic ?Consent obtained?: ??Yes ?Indication(s) for Exam: ?Vision change ?Laterality: ?Bilateral Eyes ?Views: ?Right Eye Views: ??Right eye transverse, Right eye longitudinal, Right eye motion, Right optic nerve sheath ?Left Eye Views: ??Left eye t ransverse, Left eye longitudinal, Left eye motion, Left optic nerve sheath ?Findings (Right Eye): ?Anechoic vitreous body, Norm al retina, Normal optic nerve sheath (<5.0 mm) ?Findings (Left Eye): ?Anechoic vitreous body, Norm al Retina, Normal optic nerve sheath (<5.0 mm) ?Interpretation: ?Right Eye: ??Normal ocular u ltrasound ?Left Eye: ??Normal ocular ul trasound ?Confirmatory study: ?Confirmatory study done?: ?? Not applicable Electronically signed by Danis Jamison on September at 8:11 PM I was present for sandoval and critical porti ons of the procedure. I have reviewed the images and agree with the interpretation of the resident unless otherwise noted. Procedure Note Danis Jamison MD - 10/01/2020For matting of this note might be different from the original. POCUS Ocular: Exam Information: Exam category: Diagnostic Consent obtained?: Yes Indication(s) for Exam: Vision change Laterality: Bilateral Eyes Views: Right Eye Views: Right eye transverse, Right eye longitudinal, Right eye motion, Right optic nerve sheath Left Eye Views: Left eye transverse, Le ft eye longitudinal, Left eye motion, Left optic nerve sheath Findings (Right Eye): Anechoic vitreous body, Normal retina, Normal optic nerve sheath (<5.0 mm) Findings (Left Eye): Anechoic vitreous body, Normal Retina, Normal optic nerve sheath (<5.0 mm) Interpretation: Right Eye: Normal ocular ultrasound Left Eye: Normal ocular ultrasound Confirmatory study: Confirmatory study done?: Not applicabl e Electronically signed by Danis Jamison on September at 8:11 PM I was present for sandoval and critical porti ons of the procedure. I have reviewed the images and agree with the interpretation of the resident unless otherwise noted. Danis Jamison MD IMG POC IMAGING ORDERABLES CT ABDOMEN PELVIS W CONTRAST (ROUTINE) (10/01/2020 7:02 PM EDT) Anatomical Region Laterality Modality Abdomen, Pelvis Computed Tomography Specimen (Source) Anatomical Collection Method Collection Time Re ceived Time Location / / Volume Laterality 10/01/2020 7:20 PM EDT Impressions 10/01/2020 7:25 PM EDT Mild right hydroureteronephrosis with tw o 3 mm size stones in the distal third of the right ureter. Narrative 10/01/2020 7:[address] ABDOMEN PELVIS W CONTRAST (ROUTINE), 10/01/2020 7:02 PM INDICATION:Abdominal pain, acute, nonloc alized \ right flank pain COMPARISON: 01/03/2019 TECHNIQUE: Multislice axial images were obtained through the abdomen and pelvis with administration of iodinated intravenous contrast material. Multi-planar reformatted images were generated for additio nal analysis. Nongated technique limits cardiac detail. All CT scans at [facility] and [facility] are performed using dose optimization techniques as appropriate to a performed exam, including but not limited to one o r more of the following: automated expos ure control, adjustment of the mA and/or kV according to patient size, use of iterative reconstruction technique. In addition, [place] is participating in the ACR Do se Registry program which will further a ssist us in optimizing patient radiation exposure. FINDINGS: LOWER CHEST: . ??Mediastinum: Within normal limits. . ??Heart/vessel: Normal heart size. No pericardial effusion. . ??Lungs: Within normal limits. . ??Pleura: Within normal limits. ABDOMEN: . ??Liver: Within normal limits. . ??Gallbladder/biliary: Within normal l imits. . ??Spleen: Within normal limits. . ??Pancreas: Within normal limits. . ??Adrenals: Within normal limits. . ??Kidneys: Numerous bilateral calyceal stones with mild right hydronephrosis. . ??Peritoneum: Within normal limits. . ??Mesentery: Within normal limits. . ??Extraperitoneum: Within normal limit s. . ??GI tract: Within normal limits. . ??Vascular: Within normal limits. PELVIS: . ??Peritoneum: Within normal limits. . ??Extraperitoneum: Within normal limit s. . ??Ureters: Mild right hydroureter with 2 adjacent 3 mm stones in the distal third of the right ureter. . ??Bladder: Within normal limits. . ??Reproductive system: Within normal l imits. . ??Vascular: Within normal limits. MSK: . ??Similar moderate multilevel degenera tive changes in lumbar spine. Interval L1 inferior endplate compression fracture favored to be remote. Procedure Note Aubrey Guerra Jr., MD - 10/02/[address] ABDOMEN PELVIS W CONTRAST (ROUTINE), 10/01/2020 7:02 PM INDICATION:Abdominal pain, acute, nonloc alized \ right flank pain COMPARISON: 01/03/2019 TECHNIQUE: Multislice axial images were obtained through the abdomen and pelvis with administration of iodinated intravenous contrast material. Multi-planar reformatted images were generated for additional analysis. Nongated technique limits cardiac detail . All CT scans at [facility] and [facility] are performed using dose optimization techniques as appropriate to a performed exam, including but not limited to one or more of the following: automated exposure control, a djustment of the mA and/or kV according to patient size, use of iterative reconstruction technique. In addition, [place] is participating in the ACR Dose Registry program which will further assist us in optimizing pat ient radiation exposure. FINDINGS: LOWER CHEST: . Mediastinum: Within normal limits. . Heart/vessel: Normal heart size. No pe ricardial effusion. . Lungs: Within normal limits. . Pleura: Within normal limits. ABDOMEN: . Liver: Within normal limits. . Gallbladder/biliary: Within normal delgado its. . Spleen: Within normal limits. . Pancreas: Within normal limits. . Adrenals: Within normal limits. . Kidneys: Numerous bilateral calyceal s tones with mild right hydronephrosis. . Peritoneum: Within normal limits. . Mesentery: Within normal limits. . Extraperitoneum: Within normal limits. . GI tract: Within normal limits. . Vascular: Within normal limits. PELVIS: . Peritoneum: Within normal limits. . Extraperitoneum: Within normal limits. . Ureters: Mild right hydroureter with 2 adjacent 3 mm stones in the distal third of the right ureter. . Bladder: Within normal limits. . Reproductive system: Within normal delgado its. . Vascular: Within normal limits. MSK: . Similar moderate multilevel degenerati ve changes in lumbar spine. Interval L1 inferior endplate compression fracture favored to be remote. CONCLUSION: Mild right hydroureteronephrosis with tw o 3 mm size stones in the distal third of the right ureter. Danis Jamison MD IMG CT ORDERABLES (ABNORMAL) UA, Microscopic If Indicated By Dipstick (10/01/2020 6:12 PM EDT) [facility] gist Method Time Signature Urine Color Yellow Yellow 10/01/2020 [facility] 6:42 PM EDT [facility] Urine Appearance Clear Clear 10/01/2020 [facility] 6:42 PM EDT ON [facility] Urine Specific >=1.030 (A) 1.001 - 10/01/2020 [facility] Sarah 1.035 6:42 PM EDT [facility] Urine pH 6.5 4.6 - 8.0 10/01/2020 [facility] 6:42 PM EDT ON [facility] Urine Protein 100 (A) Negative 10/01/2020 [facility] MG/DL 6:42 PM EDT [facility] Urine Glucose Negative Negative 10/01/2020 [facility] MG/DL 6:42 PM EDT ON [facility] Urine Ketone Trace (A) Negative, 10/01/2020 [facility] 15 MG/DL 6:42 PM EDT ON [facility] Urine Bilirubin Small (A) Negative 10/01/2020 [facility] 6:42 PM EDT ON [facility] Urine Blood/Hb Large (A) Negative 10/01/2020 [facility] 6:42 PM EDT ON [facility] Urine 1.0 0.2 - 1.0 10/01/2020 [facility] Urobilinogen EU/DL 6:42 PM EDT ON [facility] Urine Nitrite Positive (A) Negative 10/01/2020 [facility] 6:42 PM EDT ON [facility] Urine Leukocyte Trace (A) Negative 10/01/2020 [facility] Esterase 6:42 PM EDT ON [facility] Urine WBC 0-5 None seen, 10/01/2020 [facility] 0-5 /HPF 6:42 PM EDT ON [facility] Urine RBC TNTC (A) None seen, 10/01/2020 [facility] 0-3 /HPF 6:42 PM EDT ON [facility] Urine Epithelial None seen None seen, 10/01/2020 [facility] Cells Few /HPF 6:42 PM EDT ON [facility] Urine Bacteria Few None seen, 10/01/2020 [facility] Rare, Few 6:42 PM EDT ON [facility] Specimen Anatomical Collection Method Collection Time Receive d Time (Source) Location / / Volume Laterality Urine URINE SPECIMEN / 10/01/2020 6:12 PM 10/01 6:13 Unknown EDT PM EDT Danis Jamison MD URINE ORDERABLES Performing Organization Address City/State/ZIP Code Phon e Number [facility] CLIA# [id number] [place] [address] [facility] [address] (ABNORMAL) CBC and Differential (10/01/2020 5:28 PM EDT) [facility] Time Signature WBC 5.9 4.4 - 11.0 10/01/2020 [facility] x 10*3/uL 5:33 PM EDT N [facility] RBC 4.13 (L) 4.50 - 10/01/2020 [facility] 5.90 x 5:33 PM EDT N MEDICAL 10*6/uL [facility] Hemoglobin 12.1 (L) 14.0 - 10/01/2020 [facility] 17.5 G/DL 5:33 PM EDT [facility] Hematocrit 36.6 (L) 41.5 - 10/01/2020 [facility] 50.4 % 5:33 PM EDT [facility] MCV 88.6 80.0 - 10/01/2020 [facility] 96.0 FL 5:33 PM EDT [facility] MCH 29.2 27.5 - 10/01/2020 [facility] 33.2 PG 5:33 PM EDT [facility] MCHC 33.0 33.0 - 10/01/2020 [facility] 37.0 G/DL 5:33 PM EDT [facility] RDW 13.8 12.3 - 10/01/2020 [facility] 17.0 % 5:33 PM EDT [facility] Platelets 237 150 - 450 10/01/2020 [facility] X 10*3/uL 5:33 PM EDT [facility] MPV 7.5 6.8 - 10.2 10/01/2020 [facility] FL 5:33 PM EDT [facility] Neutrophil % 57 37 - 80 % 10/01/2020 [facility] 5:33 PM EDT [facility] Lymphocyte % 28 10 - 50 % 10/01/2020 [facility] 5:33 PM EDT [facility] Monocyte % 10 0 - 12 % 10/01/2020 [facility] 5:33 PM EDT [facility] Eosinophil % 4 0 - 7 % 10/01/2020 [facility] 5:33 PM EDT [facility] Basophil % 1 0 - 2 % 10/01/2020 [facility] 5:33 PM EDT [facility] Neutrophil 3.3 1.8 - 7.8 10/01/2020 [facility] Absolute x 10*3/uL 5:33 PM EDT [facility] Lymphocyte 1.6 1.0 - 4.8 10/01/2020 [facility] Absolute x 10*3/uL 5:33 PM EDT [facility] Monocyte 0.6 0.0 - 0.8 10/01/2020 [facility] Absolute x 10*3/uL 5:33 PM EDT [facility] Eosinophil 0.2 0.0 - 0.5 10/01/2020 [facility] Absolute x 10*3/uL 5:33 PM EDT [facility] Basophil 0.1 0.0 - 0.2 10/01/2020 [facility] Absolute x 10*3/uL 5:33 PM EDT [facility] Specimen Anatomical Collection Method / Collection Time Recei ericka Time (Source) Location / Volume Laterality Blood Venipuncture / 10/01/2020 5:28 10/01/2020 5:29 Unknown PM EDT PM EDT Danis Jamison MD LAB BLOOD ORDERABLES Performing Organization Address City/State/ZIP Code Phon e Number [facility] CLIA# [id number] [place] [address] [facility] [address] (ABNORMAL) Comprehensive Metabolic Panel (10/01/2020 5:28 PM EDT) [facility] Method Time Signature Sodium 140 136 - 144 10/01/2020 [facility] MMOL/L 5:47 PM EDT [facility] Potassium 4.6 3.5 - 5.1 10/01/2020 [facility] MMOL/L 5:47 PM EDT [facility] Chloride 109 101 - 111 10/01/2020 [facility] MMOL/L 5:47 PM EDT [facility] CO2 24 23 - 30 10/01/2020 [facility] MMOL/L 5:47 PM EDT [facility] Glucose 109 79 - 115 10/01/2020 [facility] MG/DL 5:47 PM EDT [facility] Creatinine 1.40 (H) 0.90 - 10/01/2020 [facility] 1.30 MG/DL 5:47 PM EDT [facility] Calcium 9.0 8.9 - 10.3 10/01/2020 [facility] MG/DL 5:47 PM EDT [facility] Total Protein 6.5 6.5 - 8.1 10/01/2020 [facility] G/DL 5:47 PM EDT [facility] Albumin 3.8 G/DL 10/01/2020 [facility] 5:47 PM EDT [facility] Total Bilirubin 0.6 0.3 - 1.2 10/01/2020 [facility] MG/DL 5:47 PM EDT [facility] Alkaline 74 32 - 91 10/01/2020 [facility] Phosphatase IU/L or 5:47 PM EDT [facility] AST (SGOT) 16 15 - 41 10/01/2020 [facility] IU/L or 5:47 PM EDT [facility] ALT (SGPT) 16 (L) 17 - 63 10/01/2020 [facility] IU/L or 5:47 PM EDT [facility] Anion Gap 7 6 - 16 10/01/2020 [facility] MM[facility]/L 5:47 PM EDT [facility] [facility] Est. GFR 53 (L) >=60 10/01/2020 [facility] Non- ML/MIN/1.7 5:47 PM EDT [facility] [place] 3 M*2 [facility] Comment: GFR estimated by CKD-EPI equati ons, reportable up to 90 ML/MIN/1.73 M*2 BUN 27.0 (H) 8.0 - 26.0 MG/DL 10/01/2020 5:47 PM EDT [facility] Specimen Anatomical Collection Method / Collection Time Recei ericka Time (Source) Location / Volume Laterality Blood Venipuncture / 10/01/2020 5:28 10/01/2020 5:29 Unknown PM EDT PM EDT Danis Jamison MD LAB BLOOD ORDERABLES Performing Organization Address City/State/ZIP Code Phon e Number [facility] CLIA# [id number] [place] [address] C[facility] [address] documented in this encounter Visit Diagnoses Diagnosis Right flank pain - Primary Abdominal pain, unspecified site Hydronephrosis, unspecified hydronephros is type Hydroureter Ureterolithiasis Calculus of ureter Hematuria, unspecified type Vision abnormalities Unspecified visual loss documented in this encounter Administered Medications Inactive Administered Medications - up to 3 most recent administrations Medication Order MAR Action Action Date Dose Rate Site iohexoL (OMNIPAQUE 350) injection Given 10/01/2020 7:03 PM EDT 1 00 mLs 100 mL 100 mL IMG once as needed, Intravenous, Contrast, Starting on Re 10/01/20 at 1902, For 1 dose ketorolac (TORADOL) injection 15 mg Given 10/01/2020 7:54 PM EDT 15 mg 15 mg Once, Intravenous, On Re 10/01/20 at 1950, For 1 dose documented in this encounter Active and Recently Administered Medications Times are shown in EDT. 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
--- OUTSIDE RECORDS SUMMARY | 2021-11-30 11:46 | XMS_ITS | Encounter Summary ---
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
--- OUTSIDE RECORDS SUMMARY | 2021-11-30 11:46 | XMS_ITS | Encounter Summary ---
:1955 Author Organization [facility] [place] [address] Care Team Providers Name Role Phone Neal Breen MD Primary Care Provider [phone] Encounter Details Date Type Department Care Team Description 10/01/2020 Travel Social History Tobacco Use Types Packs/Day [...] on filedocumented in this encounter Care Teams Roving Carrier Relationship Specialty Start Date End Date Neal Breen MD PCP - General Family Medicine 07/31/18 07/14/[address] [place] [address] documented as of this encounter
--- OUTSIDE RECORDS SUMMARY | 2021-11-30 11:46 | XMS_ITS | Encounter Summary ---
:1955 Author Organization [facility] [place] [address] Care Team Providers Name Role Phone Neal Breen MD Primary Care Provider [phone] Reason for Visit Auth/Cert Specialty Diagnoses / Procedures Referred By Contact Refer red To Contact Diagnoses screening Procedures SD COLONOSCOPY FLX DX W/COLLJ SPEC WHEN PFRMD SD COLONOSCOPY W/BIOPSY SINGLE/MULTIPLE SD COLON CA SCRN NOT HI RSK IND SD COLORECTAL SCRN, HI RISK IND COLONOSCOPY Referral ID Status Reason Start Date Expiration Date Visits Requ ested Visits Authorized [id number] 1 1 Encounter Details Date Type Department Care Team Description 04/28/2020 Surgery Endoscopy - [place] n Mckay Sanz, COLONOSCOPY [address] [place] [address] [place] [address] [place], [place] [address] (Wo rk) Surgery Details Date/Time Status Location OR Service Patient Case Case Traum a Class Class Type Case? 04/28/20 Posted [facility] 10:30 AM ndo 2 Outpatient Surgery Panel 1 Procedure [facility] Anes Op Region Wound Class Commen ts COLONOSCOPY N/A Rectum Clean Contaminated Surgeon Surgeon Role Service Panel Mckay Sanz MD Primary Gastroenterology 1 documented in this encounter Social History [...] Sign Reading Time Taken Comments Blood Pressure 112/68 04/28/2020 8:47 AM EST Pulse 64 04/28/2020 8:47 AM EST Temperature 36.7 ??C (98.1 ??F) 04/28/2020 8:47 AM EST Respiratory Rate 19 04/28/2020 8:47 AM EST Oxygen Saturation 95% 04/28/2020 8:47 AM EST Inhaled Oxygen Concentration - - Weight 107.5 kg (237 lb) 04/28/2020 8:47 AM EST Height - - Body Mass Index 34.01 04/20/2020 4:29 PM EST documented in this encounter Functional [...] as of this encounter Discharge Instructions Discharge InstructionsGeri Cottrell RN - 04/28/2020 12:20 PM EST Outpatient Colonoscopy Discharge Instructions 1. You may have some redness or soreness at the IV site. You may apply a warm moist cloth to the area as needed for comfort. 2. You may return to your normal diet unless otherwise specified by your physician. 3. No driving, operating heavy machinery, making legal or financial decisions, and no alcoholic beverages for 24 hours. No medications other than prescribed. You may experience drowsiness or sleep fromthe medications you receive today, and may or may not remember anything about your procedure or these discharge instructions. This is a normal reaction to the medications you have been given. Therefore, these instructions will be given to you and another person responsible for your care. Go home and rest quietly. 4. You must have a responsible adult drive your home and remain with you six hours, preferably 24 hours. The patient should be checked closely and not left unattended for long periods of time. 5. The medication used for your procedure was given by the Anesthesia team. 6. If you wear a CPAP or BiPAP machine at home, it should be worn anytime you are at rest for the next 24 hours. 7. In case of severe pain, fever, bleeding, black tarry stools, abdominal distention, or inability to pass gas, contact your physician immediately. Should you experience any problems following the procedure, contact your physician or return to the Emergency Department. Please take this sheet with you if you have to return to the hospital. 8. Procedure report: Normal colonoscopy, no polyps or cancer.You should plan to have another colonoscpy in about ten years! For emergencies contact: Dr. Sanz at [facility] [phone] After discharge you may receive a survey from [employer] regarding your stay with us. Please fill out this survey and return it in the self-addressed, stamped envelope included. This is the most important way that you can share your feedback and/or gratitude regarding the care you received. At [facility] it is our goal to provide exceptional service and meet your expectations in every way. documented in this encounter Medications at Time [...] daily. PRN documented as of this encounter H&P Notes Mckay Sanz MD - 04/28/2020 11:12 AM EST The surgical history has been reviewed and remains accurate without interval change. The patient wasre-examined and patient's physiologic condition has not changed significantly in the last 30 days. The condition still exists that makes this procedure necessary. The treatment plan remains the same, without new options for care. No new pharmacological allergies or types of therapy has been initiated that would change the plan or the appropriateness of the plan. The patient and/or family understand the potential benefits and risks. Mckay Sanz Electronically signed by: Mckay Sanz MD 04/28/20 1112 Source Note - Mckay Sanz MD - 04/20/2020 9:30 AM EST Subjective Patient ID: Dario Mckeon is a 64 y.o. male. HPI Mr. Mckeon had a colonoscopy back in 2002 and recently had a Cologuard test that was positive. He denies any blood in the stools and he does have occasional constipation. Denies diarrhea. His maternal grandmother had colon cancer. The following portions of the patient's history were reviewed and updated as appropriate: allergies,current medications, past family history, past medical history, past social history, past surgical history and problem list. Allergies Allergen Reactions ??? Morphine Anaphylaxis (ALLERGY) ??? Sulfamethoxazole Anaphylaxis (ALLERGY) ??? Sulfasalazine Itching / Pruritis (ALLERGY/intolerance) ??? Ciprofloxacin Other (See Comments) Sever yeast infection ??? Codeine Phosphate Urticaria / Hives (ALLERGY) ??? Pollen Extracts Other (See Comments) Runny nose MEDICATIONS Current Outpatient Medications Medication Sig Dispense Refill ??? ascorbic acid, vitamin C, (VITAMIN C) 500 MG tablet Take 500 mg by mouth every morning. ??? atorvastatin (LIPITOR) 20 MG tablet TAKE 1 TABLET(20 MG) BY MOUTH DAILY 90 tablet 3 ??? buPROPion SR (WELLBUTRIN SR) 100 MG 12 hr tablet Take 1 tablet (100 mg total) by mouth 2 times daily. 180 tablet 5 ??? clobetasoL (TEMOVATE) 0.05 % cream Apply to affected area 2 times per day as needed. 60 g 0 ??? donepezil (ARICEPT) 10 MG tablet Take 10 mg by mouth daily. ??? flecainide (TAMBOCOR) 100 MG tablet TAKE 1 TABLET(100 MG) BY MOUTH TWICE DAILY 180 tablet 3 ??? fluticasone propionate (FLONASE) 50 mcg/actuation nasal spray SHAKE LIQUID AND USE 2 SPRAYS IN EACH NOSTRIL TWICE DAILY 16 g 5 ??? memantine 28 mg [...] times daily. PRN 180 tablet 5 ??? tiZANidine (ZANAFLEX) 4 MG tablet TAKE 1 TABLET(4 MG) BY MOUTH EVERY 8 HOURS FOR UP TO 10 DAYS NEEDED 20 tablet 3 No current facility-administered medications for this visit. MEDICAL HISTORY Past Medical History: Diagnosis Date ??? Acute CVA (cerebrovascular accident) (HCC) 09/16/2017 ??? Arthritis ??? 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 Diabetes mellitus (HCC) ??? Hyperlipemia ??? Hypertension ??? Ruptured appendix ??? Tachycardia Past Surgical History: Procedure Laterality Date ??? APPENDECTOMY ??? CYSTOSCOPY W/ INTERNAL URETHROTOMY N/A 03/29/2019 Procedure: CYSTOSCOPY W/ INTERNAL URETHROTOMY; Surgeon: Fady Ndiaye MD; [place] [facility] Service: Urology; Laterality: N/A; ??? JOINT REPLACEMENT left knee replacement ??? LUMBAR / THORACIC MEDIAL BRANCH BLOCK N/A 08/02/2017 Procedure: LUMBAR/THORACIC MEDIAL BRANCH BLOCK (Right L2-5); Surgeon: Petr Brito MD; Location: [facility]; Service: Rehab Medicine; Laterality: N/A; ??? LUMBAR / THORACIC MEDIAL BRANCH BLOCK Right 08/15/2017 Procedure: LUMBAR/THORACIC MEDIAL BRANCH BLOCK - Right L2-L5; Surgeon: Neptali Toledo MD; Location: [address] [facility]; Service: Anes Physiatry; Laterality: Right; ??? ROBOTIC YOUSIF UNICOMPARTMENTAL KNEE REPLACEMENT Left 11/01/2016 Procedure: MEDIAL YOUSIF - UNICOMPARTMENTAL KNEE REPLACEMENT - ROBOTIC; Surgeon: Miguelito Manuel MD; Location: OUTPATIENT OR; Service: Orthopedics; Laterality: Left; ??? SKIN BIOPSY SOCIAL HISTORY Date of 1955 Social History Socioeconomic History ??? Marital status: Single Spouse name: Not on file ??? Number of children: Not on file ??? Years of education: Not on file ??? Highest education level: Not on file Occupational History ??? Not on file Social Needs ??? Financial resource strain: Not on file ??? Food insecurity Worry: Not on file Inability: Not on file ??? Transportation needs Medical: Not on file Non-medical: Not on file Tobacco Use ??? Smoking status: Former Smoker Types: Cigarettes Quit date: 04/16/1989 Years since quittin.0 ??? Smokeless tobacco: Never Used Substance and Sexual Activity ??? Alcohol use: Yes Comment: occasional beer ??? Drug use: No ??? Sexual activity: Not on file Lifestyle ??? Physical activity Days per week: Not on file Minutes per session: Not on file ??? Stress: Not on file Relationships ??? Social connections Talks on phone: Not on file Gets together: Not on file Attends roman catholic service: Not on file Active member of club or organization: Not on file Attends meetings of clubs or organizations: Not on file Relationship status: Not on file Other Topics Concern ??? Not on file Social History Narrative ??? Not on file FAMILY HISTORY Family History Problem Relation Age of Onset ??? Hypertension Mother ??? Alzheimer's disease Mother ??? Heart disease Mother ??? Kidney disease Mother ??? Diabetes Father ??? Heart disease Father ??? Alzheimer's disease Father ??? Alcohol abuse Brother ??? Alzheimer's disease Maternal Aunt ??? Alzheimer's disease Maternal Grandmother ??? Cancer Paternal Grandmother ??? Cancer Paternal Grandfather ??? Stroke Neg Hx PLUG STITCHER STRENGTH No flowsheet data found. Review of Systems Constitutional: Negative. HENT: Negative. Eyes: Negative. Respiratory: Negative. Cardiovascular: Negative. Gastrointestinal: Positive for constipation. Genitourinary: Negative. Musculoskeletal: Positive for back pain. Skin: Negative. Neurological: Negative. Hematological: Negative. Psychiatric/Behavioral: Negative. All other systems reviewed and are negative. Objective Physical Exam Postponed to the day of the procedure due to phone office visit in the context of the Covid pandemic. Assessment Screening colonoscopy. Positive Cologuard test Plan I recommend a colonoscopy due to the positive findings as well as the family history. The risks and benefits of colonoscopy were discussed with the patient. The possibility of perforation, bleeding andinfection were discussed with the patient as well as the possibility of missed lesions. Patient understands the risks and agrees to proceed with the procedure. Questions were encouraged and answered. No guarantees were given or implied. Informed consent was obtained. We will schedule the at the earliest possible date. Today???s visit was completed via a real-time telehealth (see specific modality noted below). The patient/authorized person provided oral consent at the time of the visit to engage in a telemedicine encounter with the present provider at [facility]. The patient/authorized person was informed of the potential benefits, limitations, and risks of telemedicine. The patient/authorized person expressed understanding that the laws that protect confidentiality also apply to telemedicine. Thepatient/authorized person acknowledged understanding that telemedicine does not provide emergency services and that he or she would need to call 911 or proceed to the nearest hospital for help if such a need arose. ??? Total time spent in the clinical discussion 30 minutes. ??? Telehealth Modality: Phone visit (audio only) Electronically signed by: Mckay Sanz MD 04/20/2020 10:02 AM Electronically signed by: Mckay Sanz MD 04/20/20 1004 Electronically signed by: Mckay Sanz MD 04/28/20 1112 documented in this encounter Miscellaneous Notes Op Note - Mckay Sanz MD - 04/28/2020 11:55 AM EST 04/28/2020 Pre-Op Diagnosis: Screening colonoscopy Post-Op Diagnosis: Screening colonoscopy Procedure: Colonoscopy Indications: This is a 64-year-old gentleman who had a positive Cologuard test and presented for a colonoscopy. Procedure Details Informed consent was obtained for the procedure, including sedation. Risks of perforation, hemorrhage, adverse drug reaction and aspiration were discussed. The patient was placed in the left lateral decubitus position. Based on the pre- procedure assessment, including review of the patient's medical history, medications, allergies, and review of systems, he had been deemed to be an appropriate candidate for conscious sedation; he was therefore sedated with the medications listed below. The patient was monitored continuously with ECG tracing, pulse oximetry, blood pressure monitoring, and direct observations. A rectal examination was performed. The colonoscope was inserted into the rectum and advanced under direct vision to the cecum, which was identified by the ileocecal valve and appendiceal orifice. The quality of the colonic preparation was fair. A careful inspection was made as the colonoscope was withdrawn, including a retroflexed view of the rectum; findings and interventions are described below. Appropriate photodocumentation Findings: -normal colonic mucosa throughout Disposition: PACU - hemodynamically stable. Impression: -Normal colonoscopy to the cecum, with no evidence of neoplasia, diverticular disease, or mucosal abnormality. Recommendations: -For colon cancer screening in this average-risk patient, colonoscopy may be repeated in 10 years. Electronically signed by: Mckay Sanz MD 04/28/20 1257 documented in this encounter Plan of Treatment Not on filedocumented as of this encounter Procedures Procedure Name Priority Date/Time Associated Diagnosis Comme nts COLONOSCOPY 04/28/2020 11:48 AM EST screening documented in this encounter Visit Diagnoses Not on filedocumented in this encounter Care Teams Account Supervisor Relationship Specialty Start Date End Date Neal Breen MD PCP - General Family Medicine 07/31/18 07/14/[address] [place] [address] documented as of this encounter
--- OUTSIDE RECORDS SUMMARY | 2021-11-30 11:46 | XMS_ITS | Encounter Summary ---
:1955 Author Organization [facility] [place] [address] Care Team Providers Name Role Phone Neal Breen MD Primary Care Provider [phone] Encounter Details Date Type Department Care Team Description 11/23/2020 Office Visit [facility] Kareem Martínez e to confirmed case of COVID-19 (Primary Dx); Network Family DEBBIE Lemus Runny nose [address] [place] [id number] Social History Tobacco Use [...] documented as of this encounter Progress Notes Kareem Martínez PA-C - 11/23/2020 11:40 AM EDT No chief complaint on file. HPI Dario Mckeon calls in today for a Clinician Telehealth Visit at our [facility] ([facility]): Patient's PCP is Neal Breen MD Complains of runny nose, fatigue, and diarrhea. Patient reports he has had symptoms for 4 days. Patient reports his significant other who lives with him tested positive for COVID last week. Patient hasnot taken anything for his symptoms. Patient has been fully vaccinated for COVID. Patient denies fever, congestion, cough, chest pain, shortness of breath, loss of taste, loss of smell, nausea, and vomiting. ROS Review of systems was completed and listed in HPI. Past Medical History: Diagnosis Date ??? Acute [...] Types: Cigarettes Quit date: 04/16/1989 Years since quittin.6 ??? Smokeless tobacco: Former User Quit date: 04/21/1994 Vaping Use ??? Vaping Use: Never used Substance Use Topics ??? Alcohol use: Yes Comment: occasional beer (very rare) ??? Drug use: No Exam Pulm: no audible labored breathing, speaking in full sentences, no respiratory distress Neuro: alert, normal speech w/o slurring Psych: pleasantly interactive, normal mood, thought content normal Assessment 1. Exposure to confirmed case of COVID-19 COVID-19 In-House Test (MARLENA) COVID-19 In-House Test (MARLENA) 2. Runny nose Plan Patient has called today to [facility] for assessment. Symptoms concerning for COVID-19 and thus testing was ordered. Patient given instructions to wait invehicle and clinical staff will come swab patient. Patient was advised of instructions for self isolate for full recommended duration. No orders of the defined types were placed in this encounter. Given symptoms today patient would seem stable for outpatient treatment at this time unless clinically worsening. I instructed patient to stay home until we contact him with his COVID test results. I recommended patient take Tylenol, Advil, or Aleve for any body aches he has. I advised patient to takeMucinex if he develops congestion. I encouraged patient to rest and drink plenty of fluids. Patient understands and agrees with this plan. Patient may return to ongoing care by PCP, and if worsening or not improving can call PCP or [facility] forfurther instructions. Today???s visit was completed via a real-time telehealth (see specific modality noted below). A telehealth visit was utilized in order to decrease the patient's potential exposure to COVID-19 vs an in-person visit. The patient/authorized person provided oral consent at the time of the visit to engage in a telemedicine encounter with the present provider at [facility]. The patient/authorized person was informed of the potential benefits, limitations, and risks of telemedicine. The patient/authorized person expressed understanding that the laws that protect confidentiality also apply to telemedicine. The patient/authorized person acknowledged understanding that telemedicine does not provide emergency services and that he or she would need to call 911 or proceed to the nearest hospital for help if such a need arose. ??? Total time spent in the clinical discussion 5 minutes. ??? Telehealth Modality: Phone visit (audio only) ??? State of Patient Permanent Address: [place] Electronically signed by: Kareem Martínez PA-C 11/23/20 1214 documented in this encounter Plan of Treatment Not on filedocumented as of this encounter Procedures Procedure Name Priority Date/Time Associated Diagnosis Comme nts COVID-19 IN-HOUSE Routine 11/23/2020 12:07 PM Exposure to Res ults for this TEST (MARLENA) EDT confirmed case of procedure are in COVID-19 the results section. documented in this encounter Results COVID-19 In-House Test (MARLENA) (11/23/2020 12:07 PM EDT) [facility] Method Time Signature SARS-COV-2 Negative Negative 11/24/2020 [facility] 7:42 PM EDT [facility] SARS-COV-2 Results are for the detectio n of SARS-CoV-2 RNA. ??The SARS-CoV-2 RNA is generally detectable in nasopharyngeal swab specimens during acute phase infection. 11/24/2020 [facility] COMMENT 7:42 PM EDT [facility] Positive results are indicat susan if the presence of SARS-CoV-2 RNA; clinical correlation with patient history and other diagnostic information is necessary to determine patient infection status. Positive [employer] PATHOL results do not rule out cindy terial infection or co-infection with other viruses. The agent detected may not be the definite cause of disease. Laboratories within the [place] and its territories ar LABS e required to report all pos itive results to the appropriate public health authorities. Negative results do not prec lude SARS-CoV-2 infection and should not be used as the sole basis for treatment or other patient management decisions. False- negative results may occur if the viruses are pr esent at a level that is bel ow the limit of detection of the assay and therefore negative results must be combined with clinical observations, patient history, and epidemiological information. Test performed by [facility] qual ified personnel using the Camila Marlena COVID-19 Qualitative Assay. ??Marlena?? SARS-CoV-2 is for use only under Emergency Use Authorization (EUA) in U.S. laboratories certified under the Clinical Laborator y Improvement Amendments of 1988 (CLIA), 42 U.S.C. ??263a, to perform moderate complexity tests, and in U.S. laboratories certified under CLIA to perform high complexity test s, by clinical laboratory pe martell who have received specific training on the use of the marlena?? 6800/8800 Systems. Specimen (Source) Anatomical Collection Method Collection Time Re ceived Time Location / / Volume Laterality Nasopharyngeal Swab 11/23/2020 12:07 08/12/2020 ([place]) PM EDT 4:11 PM EDT Kareem Martínez PA-C BODY FLUIDS AND STOOLS (NON- MICRO) ORDERABLES Performing Organization Address City/State/ZIP Code Phon e Number [facility] CLIA# [id number] [place] [address] [facility] [place] documented in this encounter Visit Diagnoses Diagnosis Exposure to confirmed case of COVID-19 - Primary Runny nose Other diseases of nasal cavity and sinus es documented in this encounter Additional Health Concerns Infection Onset Date Last Indicated Resolved Time R/O COVID-19 11/23/2020 11/23/2020 11/24/2020 7:42 PM EDT documented as of this encounter Care Teams Mechanical Service Specialist Relationship Specialty Start Date End Date Neal Breen MD PCP - General Family Medicine 07/31/18 07/14/[address] [place] [address] documented as of this encounter
--- OUTSIDE RECORDS SUMMARY | 2021-11-30 11:46 | XMS_ITS | Encounter Summary ---
:1955 Author Organization [facility] [place] [address] Care Team Providers Name Role Phone Neal Breen MD Primary Care Provider [phone] Encounter Details Date Type Department Care Team Description 11/25/2020 Telephone [facility] Kim Faustin CMA [address] [place] [address] [place] [address] [phone] Social History Tobacco Use Types Packs/Day Years [...] have you been in contact with Yes 11/24/2020 11:09 AM EDT someone who was confirmed or [...] this encounter Miscellaneous Notes Telephone Encounter - Kim Leslie CMA - 11/25/2020 4:54 PM EDT Patient notified of lab results Electronically signed by: Kim Leslie CMA 11/25/2020 4:54 PM Electronically signed by: Kim Leslie CMA 11/25/20 1654 documented in this encounter Plan of Treatment Not on filedocumented as of this encounter Visit Diagnoses Not on filedocumented in this encounter Care Teams Street Car Inspector Relationship Specialty Start Date End Date Neal Breen MD PCP - General Family Medicine 07/31/18 07/14/[address] [place] [address] documented as of this encounter
--- OUTSIDE RECORDS SUMMARY | 2021-11-30 11:46 | XMS_ITS | Encounter Summary ---
:1955 Author Organization [facility] [place] [address] Care Team Providers Name Role Phone Neal Breen MD Primary Care Provider [phone] Encounter Details Date Type Department Care Team Description 09/20/2020 Travel Social History Tobacco Use Types Packs/Day [...] on filedocumented in this encounter Care Teams Artificial Marble Worker Relationship Specialty Start Date End Date Neal Breen MD PCP - General Family Medicine 07/31/18 07/14/[address] [place] [address] documented as of this encounter
--- OUTSIDE RECORDS SUMMARY | 2021-11-30 11:46 | XMS_ITS | Encounter Summary ---
:1955 Author Organization [facility] [place] [address] Care Team Providers Name Role Phone Neal Breen MD Primary Care Provider [phone] Encounter Details Date Type Department Care Team Description 08/11/2020 Travel Social History Tobacco Use Types Packs/Day [...] on filedocumented in this encounter Care Teams Superintendent Terminal Relationship Specialty Start Date End Date Neal Breen MD PCP - General Family Medicine 07/31/18 07/14/[address] [place] [address] documented as of this encounter
--- OUTSIDE RECORDS SUMMARY | 2021-11-30 11:46 | XMS_ITS | Encounter Summary ---
:1955 Author Organization [facility] [place] [address] Care Team Providers Name Role Phone Neal Breen MD Primary Care Provider [phone] Reason for Referral Consultation (Routine) - Closed Specialty Diagnoses / Procedures Referred By Contact Refer red To Contact Pain Medicine Diagnoses Acute low back pain, unspecified back pain laterality, unspecified whether sciatica present Compression fracture of L1 vertebra, initial encounter (HCC) Neal Breen, [facility] [address] [place] [address], [address] [place] [address] [address] [place] [address] [place] [address] Fax: Referral ID Status Reason Start Date Expiration Date Visits V isits Requested Authorized [id number] Closed Specialty 02/09/2021 02/09/2022 1 1 Services Required Scheduling Instructions PLEASE be advised that opioids will no t be prescribed for the patient at the initial visit to the clinic Reason for Visit Reason Comments Back Pain Encounter Details Date Type Department Care Team Description 02/09/2021 Office Visit [facility] Neal Breen l ow back pain, unspecified back pain laterality, unspecified whether sciatica present (Primary Dx); Alberto Rivera MD Compression fracture of L1 vertebra, ini tial encounter (HCC); Medicine - [address] Need for immunization agains t influenza [address] [place] [address] [place] [address] Social History Tobacco Use [...] Sign Reading Time Taken Comments Blood Pressure 107/70 02/09/2021 2:28 PM EDT Pulse 58 02/09/2021 2:28 PM EDT Temperature 36.7 ??C (98.1 ??F) 02/09/2021 2:28 PM EDT Respiratory Rate 19 02/09/2021 2:28 PM EDT Oxygen Saturation 95% 02/09/2021 2:28 PM EDT Inhaled Oxygen Concentration - - Weight 110.7 kg (244 lb 2 oz) 02/09/2021 2:28 PM EDT Height 180.3 cm (5' 11) 02/09/2021 2:28 PM EDT Body Mass Index 34.05 02/09/2021 2:28 PM EDT documented in this encounter Functional [...] as of this encounter Patient Instructions Patient InstructionsTusharprashanth Diaz CMA - 02/09/2021 2:20 PM EDT Images from the original note were not included. [facility] Influenza (Flu) Vaccine: Care Instructions Your Care Instructions Influenza (flu) is an infection in the lungs and breathing passages. It is caused by the influenza virus. There are different strains, or types, of the flu virus every year. The flu comes on quickly. It can cause a cough, stuffy nose, fever, chills, tiredness, and aches and pains. These symptoms may last up to 10 days. The flu can make you feel very sick, but most of the time it doesn't lead to otherproblems. But it can cause serious problems in people who are older or who have a long-term illness,such as heart disease or diabetes. You can help prevent the flu by getting a flu vaccine every year, as soon as it is available. You cannot get the flu from the vaccine. The vaccine prevents most cases of the flu. But even when the vaccine doesn't prevent the flu, it can make symptoms less severe and reduce the chance of problems from the flu. Sometimes, young children and people who have an immune system problem may have a slight fever or muscle aches or pains 6 to 12 hours after getting the shot. These symptoms usually last 1 or 2 days. Follow-up care is a sandoval part of your treatment and safety. Be sure to make and go to all appointments, and call your doctor if you are having problems. It's also a good idea to know your test results and keep a list of the medicines you take. Who should get the flu vaccine? Everyone age 6 months or older should get a flu vaccine each year. It lowers the chance of getting and spreading the flu. The vaccine is very important for people who are at high risk for getting otherhealth problems from the flu. This includes: ?? Anyone 50 years of age or older. ?? People who live in a long-term care center, such as a custodial. ?? All children 6 months through 18 years of age. ?? Adults and children 6 months and older who have long-term heart or lung problems, such as asthma. ?? Adults and children 6 months and older who needed medical care or were in a hospital during the past year because of diabetes, chronic kidney disease, or a weak immune system (including HIV or AIDS). ?? Women who will be during the flu season. ?? People who have any condition that can make it hard to breathe or swallow (such as a brain injuryor muscle disorders). ?? People who can give the flu to others who are at high risk for problems from the flu. This includes all health care workers and close contacts of people age 65 or older. Who should not get the flu vaccine? The person who gives the vaccine may tell you not to get it if you: ?? Have a severe allergy to eggs or any part of the vaccine. ?? Have had a severe reaction to a flu vaccine in the past. ?? Have had Guillain-Cardenas?? syndrome (GBS). ?? Are sick with a fever. (Get the vaccine when symptoms are gone.) How can you care for yourself at home? ?? If you or your child has a sore arm or a slight fever after the vaccine, take an sxau-pbp-punytqfbciz medicine, such as acetaminophen (Tylenol) or ibuprofen (Advil, Motrin). Read and follow all instructions on the label. Do not give aspirin to anyone younger than 20. It has been linked to Caity syndrome, a serious illness. ?? Do not take two or more pain medicines at the same time unless the doctor told you to. Many pain medicines have acetaminophen, which is Tylenol. Too much acetaminophen (Tylenol) can be harmful. When should you call for help? Call 911 anytime you think you may need emergency care. For example, call if after getting the flu vaccine: ? You have symptoms of a severe reaction to the flu vaccine. Symptoms of a severe reaction may include: ? Severe difficulty breathing. ? Sudden raised, red areas (hives) all over your body. ? Severe lightheadedness. Call your doctor now or seek immediate medical care if after getting the flu vaccine: ? You think you are having a reaction to the flu vaccine, such as a new fever. Watch closely for changes in your health, and be sure to contact your doctor if you have any problems. Where can you learn more? Log into [employer] at https://www.MD.Voice. Go to Menu, Search [employer] Library Enter N880 in the search box to learn more about Influenza (Flu) Vaccine: Care Instructions. Current as of: December 16, 2019?Content Version: 13.0 ?? [id number] [employer]. Care instructions adapted under license by [facility]. If you have questions about amedical condition or this instruction, always ask your healthcare professional. [employer] disclaims any warranty or liability for your use of this information. documented in this encounter Progress Notes Neal Breen MD - 02/09/2021 2:20 PM EDT Cc - Back pain HPI Comes in for worsening of chronic low back pain. He notes he had a recent bout with nephrolithiasis and he thought the pain was due to that, however as that has resolved his pain is residual so he and significant other think it is due to the chronic arthritic changes in his lower back His recent CT scan as noted below notes a lumbar compression fracture that is likely chronic. He reports a previous thoracic 1 due to accident as well ROS -As noted in HPI Past Medical History: Diagnosis Date ??? Acute CVA (cerebrovascular accident) (HCC) 09/16/2017 ??? Arthritis ??? Back pain ??? 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 Cerebral brain hemorrhage (HCC) ??? Diabetes mellitus (HCC) ??? Hyperlipemia ??? Kidney stones ??? MARTA (obstructive sleep apnea) ??? Ruptured appendix ??? Tachycardia Exam Vitals: 02/09/21 1428 BP: 107/70 Pulse: 58 Temp: 98.1 ??F (36.7 ??C) Resp: 19 SpO2: 95% Position: Sitting Body mass index is 34.05 kg/m??. Constitutional: Patient appears well-developed and well-nourished. No distress. Obese Eyes: Conjunctivae are normal. Right eye exhibits no discharge. Left eye exhibits no discharge. No scleral icterus. Pulmonary/Chest: Effort normal. No respiratory distress. Neurological: Alert. Skin: No rash noted. Not diaphoretic Psychiatric: Patient has a normal mood and affect. CT STONE STUDY, 01/07/2021 2:03 PM INDICATION: \ N20.0 Renal calculi \ R31.0 Gross hematuria ADDITIONAL HISTORY: None. COMPARISON: 10/01/2020 TECHNIQUE: Axial images of the abdomen and pelvis were obtained without intravenous contrast. Supplemental 2D reformatted images were generated and reviewed as needed. All CT scans at [facility] are performed using dose optimization techniques as appropriate to a performed exam, including but not limited to one or more of the following: automated exposure control, adjustment of the mA and/or kV according to patient size, use of iterative reconstruction technique. In addition, [place] is participating in the ACR Dose Registry program which will further assist us in optimizing patient radiation exposure. LIMITATIONS: Lack of intravenous contrast decreases sensitivity for the detection of solid organ lesions. FINDINGS: LOWER CHEST Mediastinum: Within normal limits. Heart/vessels: Within normal limits. Pleura: Within normal limits. Lungs: 4 mm right lower lobe nodule unchanged going back to 2016. ABDOMEN Liver: Within normal limits. Gallbladder/biliary: Within normal limits. Spleen: Within normal limits. Pancreas: Within normal limits. Adrenals: Within normal limits. Kidneys: Multiple calyceal stones bilaterally with perirenal fat stranding. No hydronephrosis. Peritoneum/mesenteries: Within normal limits. Extraperitoneum: Within normal limits. Gastrointestinal tract: Appendix not identified compatible with history of appendectomy. Vascular: Within normal limits. PELVIS Peritoneum: Within normal limits. Extraperitoneum: Within normal limits. Ureters: 5 mm proximal left ureteral stone without obstruction. Bladder: Within normal limits. Reproductive system: Within normal limits. Vascular: Within normal limits. MSK: Moderate to advanced multilevel degenerative changes in lumbar spine with chronic inferior endplate compression fracture of L1 again noted. CONCLUSION: ?? Nephrolithiasis with proximal 5 mm nonobstructing stone in the left ureter. Ancillary findings above. Assessment 1. Acute low back pain, unspecified back pain laterality, unspecified whether sciatica present Ambulatory Referral To Pain Clinic 2. Compression fracture of L1 vertebra, initial encounter ([facility]) XR BONE DENSITOMETRY Ambulatory Referral To Pain Clinic 3. Need for immunization against influenza Plan Referring to pain management at his request for his worsening chronic low back pain. Reviewed CT as above which showed advanced arthritis with the compression fracture which are likely contributory to his discomfort. Given this finding of a compression fracture I am also going ahead and ordering a DEXA scan as notedabove. Flu shot today This document was created using the aid of voice recognition 10-20 Media dictation software. Electronically signed by: Neal Breen MD 02/10/21 1126 documented in this encounter Plan of Treatment Not on filedocumented as of this encounter Results XR BONE DENSITOMETRY (02/15/2021 [...] [facility] to [facility]. Narrative 02/15/2021 12:44 PM EDT BONE DENSITOMETRY (DEXA), 02/15/2021 12:13 PM INDICATION: ??\ S32.010A Compression fra cture of L1 vertebra, initial encounter ([facility]) TECHNICAL QUALITY: Good. CLINICAL HISTORY: [age] 65[age]2 [age] Race: White Gender: Male Menopausal status: Not applicable Risk factors: Chronic steroid use and fr actures. Osteoporosis therapy: None TECHNIQUE: The study was performed using [employer] bone densitometer. FINDINGS: LUMBAR SPINE BMD [...] prevention measures. The National Osteoporosis Foundation (http://www.nof.org/hcp/practic e/qehgmjps-upm-bejopwwl-guidelines/clini cians-guide) recommends: 1. Initiate pharmacologic treatment in [...] estimation of fracture risk by FRAX. The [employer] olvin delines for patients [...] fract ure of L1 vertebra, initial encounter ([facility]) TECHNICAL QUALITY: Good. CLINICAL HISTORY: [age] Race: White Gender: Male Menopausal status: Not applicable Risk factors: Chronic steroid use and fr actures. Osteoporosis therapy: None TECHNIQUE: The study was performed using [employer] bone densitometer. FINDINGS: LUMBAR SPINE BMD measured [...] prevention measures. The National Osteoporosis Foundation (http://www.nof.org/hcp/pract ice/htcjndbf-hvx-wbwsddvz-guidelines/clinician s-guide) recommends: 1. Initiate pharmacologic treatment in [...] estimation of fracture risk by FRAX. The [employer] olvin delines for patients [...] documented in this encounter Visit Diagnoses Diagnosis Acute low back pain, unspecified back pa in laterality, unspecified whether sciatica present - Primary Compression fracture of L1 vertebra, ini tial encounter (HCC) Need for immunization against influenza Need for prophylactic vaccination and in oculation against influenza Compression fracture of L1 vertebra, ini tial encounter (HCC) documented in this encounter Care Teams Floorworker Lasting Relationship Specialty Start Date End Date Neal Breen MD PCP - General Family Medicine 07/31/18 07/14/[address] [place] [address] documented as of this encounter
--- OUTSIDE RECORDS SUMMARY | 2021-11-30 11:46 | XMS_ITS | Encounter Summary ---
:1955 Author Organization [facility] [place] [address] Care Team Providers Name Role Phone Neal Breen MD Primary Care Provider [phone] Encounter Details Date Type Department Care Team Description 06/02/2020 Travel Social History Tobacco Use Types Packs/Day [...] on filedocumented in this encounter Care Teams Pediatric Geneticist Relationship Specialty Start Date End Date Neal Breen MD PCP - General Family Medicine 07/31/18 07/14/[address] [place] [address] documented as of this encounter
--- OUTSIDE RECORDS SUMMARY | 2021-11-30 11:46 | XMS_ITS | Encounter Summary ---
:1955 Author Organization [facility] [place] [address] Care Team Providers Name Role Phone Neal Breen MD Primary Care Provider [phone] Reason for Visit Reason Comments Flank Pain Encounter Details Date Type Department Care Team Description 10/15/2020 [facility] [place], [address] [place] [address] [facility] [phone] [facility] [id number] (Wo rk) Social History Tobacco Use Types [...] Sign Reading Time Taken Comments Blood Pressure 151/87 10/15/2020 1:55 PM EDT Pulse 56 10/15/2020 1:55 PM EDT Temperature 36.4 ??C (97.6 ??F) 10/15/2020 10:18 AM EDT Respiratory Rate 16 10/15/2020 11:48 AM EDT Oxygen Saturation 95% 10/15/2020 1:55 PM EDT Inhaled Oxygen Concentration - - Weight 111.6 kg (246 lb 1.9 oz) 10/15/2020 10:18 AM EDT Height - - Body Mass Index 34.82 10/01/2020 5:02 PM EDT documented in this [...] be sent through Care Everywhere. Ureteral Stones (Discharge Care) ([place]an)documented in this encounter Medications at Time of [...] 09/16/2020 (TOPROL-XL) 50 MG 24 hr tablet HYDROcodone-acetaminophen Take 1 tablet by 9 tablet 0 07/04/202010/18/2020 (NORCO) 5-325 mg per mouth every 8 tablet (eight) hours as needed for up to 3 days for Pain. ondansetron (ZOFRAN ODT) 4 Take 1 tablet (4 8 tablet 0 04/202010/22/2020 MG disintegrating tablet mg total) by mouth every 8 (eight) hours as needed for up to 7 days for Nausea. tamsulosin (FLOMAX) 0.4 mg Take 1 capsule 30 capsule 0 10/1510/18/2020 Cap capsule (0.4 mg total) by mouth daily for 3 days. albuterol 90 mcg/actuation Inhale 1 puff into [...] mcg/actuation route 2 times nasal spray daily. ipratropium (ATROVENT) 21 USE 2 SPRAYS IN [...] documented as of this encounter ED Notes Loly Zeng RN - 10/15/2020 12:14 PM EDT Pt back in room from [place]. Loly Zeng RN - 10/15/2020 12:06 PM EDT Pt in US. Destinee Law PA-C - 10/15/2020 10:31 AM EDT History Chief Complaint Patient presents with ??? Flank Pain Patient is a 64-year-old male with a history of CVA, type 2 diabetes, who presents with continued right-sided back and flank pain. He states that initially started around 04 October. He was seen here at that time and told he had a kidney stone. He states he never improved and has had continued, moderate pain in the right flank radiating into his abdomen. Denies any testicular pain swelling or skin changes, nausea, vomiting, fatigue or fevers. He states he has had difficulty urinating over the last 48 hours and states that he has been urinating less than normal and notes that it is bright red. He is not on any anticoagulants at home. Patient states he does have a history of lithotripsy and saw Dr. Ndiaye with urology last year. He states he has been trying to strain his urine but has not noticed passing the stone. He has not taken anything for pain this morning and denies any identifiable alleviatingor exacerbating factors. History provided by: The patient director of market analysis used?: No formal communications agent used Abdominal Pain Pain location: R flank Pain quality: aching Pain radiates to: Does not radiate Pain severity: Moderate Onset quality: Gradual Duration: 2 weeks Timing: Constant Progression: Unchanged Chronicity: New Relieved by: Nothing Worsened by: Nothing Ineffective treatments: None tried Associated symptoms: hematuria Associated symptoms: no anorexia, no chest pain, no chills, no cough, no diarrhea, no dysuria, no fatigue, no fever, no melena, no nausea, no shortness of breath and no vomiting Past Medical History: Diagnosis Date ??? Acute [...] Procedure: COLONOSCOPY; Surgeon: Mckay Sanz MD; Location: [facility]; Service: Gastroenterology; Laterality: N/A; ??? CYSTOSCOPY W/ INTERNAL URETHROTOMY N/A 03/29/2019 Procedure: CYSTOSCOPY W/ INTERNAL URETHROTOMY; Surgeon: Fady Ndiaye MD; Location: [facility]; Service: Urology; Laterality: N/A; ??? JOINT REPLACEMENT left knee replacement ??? LUMBAR / THORACIC MEDIAL BRANCH BLOCK N/A 08/02/2017 Procedure: LUMBAR/THORACIC MEDIAL BRANCH BLOCK (Right L2-5); Surgeon: Petr Brito MD; Location: [facility]; Service: Rehab Medicine; Laterality: N/A; ??? LUMBAR / THORACIC MEDIAL BRANCH BLOCK Right 08/15/2017 Procedure: LUMBAR/THORACIC MEDIAL BRANCH BLOCK - Right L2-L5; Surgeon: Neptali Toledo MD; Location: [address]; Service: [facility]; Laterality: Right; ??? [...] Types: Cigarettes Quit date: 04/16/1989 Years since quittin.5 ??? Smokeless tobacco: Former User Quit date: 04/21/1994 Vaping Use ??? Vaping Use: Never used Substance Use Topics ??? Alcohol use: Yes Comment: occasional beer (very rare) ??? Drug use: No Review of Systems Constitutional: Negative for chills, fatigue and fever. HENT: Negative. Respiratory: Negative for cough, shortness of breath and wheezing. Cardiovascular: Negative for chest pain, palpitations and leg swelling. Gastrointestinal: Positive for abdominal pain. Negative for anorexia, blood in stool, diarrhea, melena, nausea and vomiting. Genitourinary: Positive for flank pain and hematuria. Negative for dysuria and urgency. Musculoskeletal: Positive for back pain. Negative for arthralgias, joint swelling and myalgias. Allergic/Immunologic: Negative for immunocompromised state. Neurological: Negative for dizziness, weakness, numbness and headaches. Psychiatric/Behavioral: Negative. All other systems reviewed and are negative. Physical Exam ED Triage Vitals [10/15/20 1018] BP 142/83 MAP (mmHg) Pulse 57 Resp 18 Temp 97.6 ??F (36.4 ??C) SpO2 97 % Weight 111.6 kg (246 lb 1.9 oz) Physical Exam Vitals and nursing note reviewed. Constitutional: General: He is not in acute distress. Appearance: He is well-developed. He is obese. Comments: Well-appearing 64-year-old male sitting upright in bed in no acute distress HENT: Head: Normocephalic and atraumatic. Eyes: Pupils: Pupils are equal, round, and reactive to light. Cardiovascular: Rate and Rhythm: Regular rhythm. Bradycardia present. Comments: Intact DP pulses with warm well perfused extremities Pulmonary: Effort: Pulmonary effort is normal. No respiratory distress. Abdominal: Palpations: Abdomen is soft. There is no mass (No pulsatile masses palpable). Tenderness: There is no abdominal tenderness. There is right CVA tenderness. Musculoskeletal: Cervical back: Normal range of motion and neck supple. Skin: General: Skin is warm and dry. Capillary Refill: Capillary refill takes less than 2 seconds. Neurological: Mental Status: He is alert and oriented to person, place, and time. ED Course Procedures ED Course as of Oct 15 131 Re Oct 15, 2020 1049 HEMOGLOBIN(!): 12.7 [] ED Course User Index [] Destinee Law PA-C Labs Reviewed URINALYSIS WITH MICROSCOPIC - Abnormal; Notable for the following components: Result Value Urine Color Blachly (*) Urine Appearance SL Cloudy (*) Urine Specific [place] >=1.030 (*) Urine Blood/Hb Large (*) Urine Leukocyte Esterase Trace (*) Urine RBC >30 (*) All other components within normal limits BASIC METABOLIC PANEL - Abnormal; Notable for the following components: Glucose 130 (*) Creatinine 1.79 (*) Calcium 8.7 (*) Est. GFR Non- 39 (*) All other components within normal limits CBC WITH AUTO DIFFERENTIAL PANEL - Abnormal; Notable for the following components: RBC 4.38 (*) Hemoglobin 12.7 (*) Hematocrit 38.9 (*) MCHC 32.5 (*) All other components within normal limits URINE CULTURE CBC AND DIFFERENTIAL Narrative: The following orders were created for panel order CBC and Differential. Procedure Abnormality Status --------- ------ CBC and Differential[[id number]] Abnormal Final result Please view results for these tests on the individual orders. [facility] Patient is a pleasant 64-year-old male with a history of type 2 diabetes, previous CVA who presents with continued right-sided flank pain. Patient is nontoxic-appearing with right CVA tenderness. Warm well perfused extremities 10/01 Diagnosed with 2 3 mm stone in the distal right ureter with mild hydronephrosis. Creatinine 1.4 Today, creatinine has increased to 1.7 with no signs of secondary infection on urinalysis. He does have mild right-sided hydronephrosis on renal ultrasound, without leukocytosis, electrolyte abnormalities. His vitals have remained stable, his pain is controlled with oral hydrocodone he is tolerating p.o. with no episodes of vomiting during time in the ER. As such, feel patient is stable for dischargeand close outpatient urology follow-up. He and do prefer this option to hospitalization. I have spoken with urology office and scheduled patient an appointment early next week. He has beenplaced on a cancellation list. I have advised ER return with intractable vomiting, worsening pain, fevers chills etc. He and voiced understanding of these instructions and all questions were answered prior to discharge Clinical Impression: 1. Right flank pain 2. Hydronephrosis with urinary obstruction due to renal calculus 3. NÉSTOR (acute kidney injury) (HCC) ED Disposition ED Disposition Condition Comment Discharge Stable Dario Mckeon discharge to home/self care. Electronically signed by: Destinee Law PA-C 10/15/20 1546 Jade Keys RN - 10/15/2020 10:21 AM EDT Pt seen recently for kidney stones. Pt states he woke up this am with right flank pain and hematuria. documented in this encounter Plan of Treatment Not on filedocumented as of this encounter Procedures Procedure Name Priority Date/Time Associated Comments Diagnosis US URINARY STAT 10/15/2020 12:17 Right flank pain Results for this SYSTEM/RENAL PM EDT procedure are i n the results section. XR ABDOMEN STAT 10/15/2020 11:03 Right flank pain Results for this (W/UPRIGHT) AM EDT procedure are i n the results section. CBC WITH AUTO STAT 10/15/2020 10:38 Results fo r this DIFFERENTIAL PANEL AM EDT procedure are in the results section. CBC AND DIFFERENTIAL STAT 10/15/2020 10:38 Res ults for this AM EDT procedure are i n the results section. BASIC METABOLIC PANEL STAT 10/15/2020 10:38 Re sults for this AM EDT procedure are i n the results section. URINALYSIS WITH STAT 10/15/2020 10:37 Results for this MICROSCOPIC AM EDT procedure are i n the results section. URINE CULTURE STAT 10/15/2020 10:37 Results fo r this AM EDT procedure are i n the results section. documented in this encounter Results US URINARY SYSTEM/RENAL (10/15/2020 12:17 PM EDT) Anatomical Region Laterality Modality Abdomen Ultrasound Specimen (Source) Anatomical Collection Method Collection Time Re ceived Time Location / / Volume Laterality 10/15/2020 12:23 PM EDT Impressions 10/15/2020 12:25 PM EDT 1. Mild right hydronephrosis. Further im aging assessment can be made by follow- up CT. 2. Small nonobstructing renal stones, bi laterally. Narrative 10/15/2020 12:25 PM EDT ULTRASOUND OF RETROPERITONEUM/URINARY TRACT, 10/15/2020 12:17 PM INDICATION: known stones, right flank pa in continues ADDITIONAL HISTORY: None. COMPARISON: Abdomen CT 10/01/2020 TECHNIQUE: Multiplanar real-time ultraso nography of the retroperitoneum and urinary tract using grayscale imaging, supplemented by color and spectral Doppler as needed. FINDINGS: . ??Right kidney: Length = 11.7 cm. Norm al size, contour, and echogenicity. No perinephric fluid. No focal mass is identified. Mild right hydronephrosis. Small nonobstructing renal stones. . ??Left kidney: Length = 11.9 cm. Selene l size, contour, and echogenicity. No hydronephrosis or perinephric fluid. No focal mass is identified. Small nonobstructing renal stones. . ??Vascular: Perfusion to both kidneys is documented with color Doppler. . ??Bladder: Normal. Procedure Note Benjamin Ceron MD - 10/15/2020Format ting of this note might be different from the original. ULTRASOUND OF RETROPERITONEUM/URINARY TR ACT, 10/15/2020 12:17 PM INDICATION: known stones, right flank pa in continues ADDITIONAL HISTORY: None. COMPARISON: Abdomen CT 10/01/2020 TECHNIQUE: Multiplanar real-time ultraso nography of the retroperitoneum and urinary tract using grayscale imaging, supplemented by color and spectral Doppler as needed. FINDINGS: . Right kidney: Length = 11.7 cm. Normal size, contour, and echogenicity. No perinephric fluid. No focal mass is identified. Mild right hydronephrosis. Small nonobstructing renal stones. . Left kidney: Length = 11.9 cm. Normal size, contour, and echogenicity. No hydronephrosis or perinephric fluid. No focal mass is identified. Small nonobstructing renal stones. . Vascular: Perfusion to both kidneys is documented with color Doppler. . Bladder: Normal. CONCLUSION: 1. Mild right hydronephrosis. Further im aging assessment can be made by follow- up CT. 2. Small nonobstructing renal stones, bi laterally. Destinee Law PA-C IMG US ORDERABLES XR ABDOMEN (W/UPRIGHT) (10/15/2020 11:03 AM EDT) Anatomical Region Laterality Modality Abdomen Digital Radiography Specimen (Source) Anatomical Collection Method Collection Time Re ceived Time Location / / Volume Laterality 10/15/2020 11:07 AM EDT Impressions 10/15/2020 11:09 AM EDT 1. ??Nonobstructive bowel gas pattern. 2. ??No pneumoperitoneum. 3. ??Tiny bilateral renal calcifications . No definite ureteral stones are seen. Narrative 10/15/2020 11:09 AM EDT X-RAY ABDOMEN, MULTIPLE VIEWS, 10/15/2020 11:03 AM INDICATION: right flank pain, known ston es ADDITIONAL HISTORY: None. COMPARISON: Abdomen CT 10/01/2020 TECHNIQUE: Supine and erect views of the abdomen are presented. FINDINGS: . ??Stomach/intestines: Nonobstructive b owel gas pattern. . ??Soft tissues/peritoneum: No patholog ic soft tissue density. No pneumoperitoneum. . ??Calcifications/stones: Redemonstrati on tiny bilateral abdominal calcifications, most consistent with renal stones. There are a few tiny bilateral pelvic calcifications, likely calcified phleboliths. No definite ureteral stones are seen. . ??Bones/soft tissues: Age related mclean ges. No acute bony abnormality. . ??Lower chest: ??The visualized lung b ases reveal no acute process. Procedure Note Benjamin Ceron MD - 10/15/2020Format ting of this note might be different from the original. X-RAY ABDOMEN, MULTIPLE VIEWS, 10/15/2020 11:03 AM INDICATION: right flank pain, known ston es ADDITIONAL HISTORY: None. COMPARISON: Abdomen CT 10/01/2020 TECHNIQUE: Supine and erect views of the abdomen are presented. FINDINGS: . Stomach/intestines: Nonobstructive bow el gas pattern. . Soft tissues/peritoneum: No pathologic soft tissue density. No pneumoperitoneum. . Calcifications/stones: Redemonstration tiny bilateral abdominal calcifications, most consistent with renal stones. There are a few tiny bilateral pelvic calcifications, likely calcified phleboliths. No definite ureteral stones are seen. . Bones/soft tissues: Age related change s. No acute bony abnormality. . Lower chest: The visualized lung bases reveal no acute process. CONCLUSION: 1. Nonobstructive bowel gas pattern. 2. No pneumoperitoneum. 3. Tiny bilateral renal calcifications. No definite ureteral stones are seen. Destinee Ankit Law PA-C IMG DIAGNOSTIC IMAGING ORDER MASOU[place] (ABNORMAL) CBC and Differential (10/15/2020 10:38 AM EDT) Analysis Performed At Patho logist Time Signature WBC 9.0 4.4 - 11.0 10/15/2020 [facility] x 10*3/uL 10:47 AM [facility] RBC 4.38 (L) 4.50 - 10/15/2020 [facility] 5.90 x 10:47 AM [facility] 10*6/uL [facility] Hemoglobin 12.7 (L) 14.0 - 10/15/2020 [facility] 17.5 G/DL 10:47 AM [facility] Hematocrit 38.9 (L) 41.5 - 10/15/2020 [facility] 50.4 % 10:47 AM [facility] MCV 88.9 80.0 - 10/15/2020 [facility] 96.0 FL 10:47 AM [facility] MCH 28.9 27.5 - 10/15/2020 [facility] 33.2 PG 10:47 AM [facility] MCHC 32.5 (L) 33.0 - 10/15/2020 [facility] 37.0 G/DL 10:47 AM [facility] RDW 13.5 12.3 - 10/15/2020 [facility] 17.0 % 10:47 AM [facility] Platelets 264 150 - 450 10/15/2020 [facility] X 10*3/uL 10:47 AM [facility] MPV 7.3 6.8 - 10.2 10/15/2020 [facility] FL 10:47 AM EDT [facility] Neutrophil % 75 37 - 80 % 10/15/2020 [facility] 10:47 AM EDT [facility] Lymphocyte % 14 10 - 50 % 10/15/2020 [facility] 10:47 AM EDT [facility] Monocyte % 8 0 - 12 % 10/15/2020 [facility] 10:47 AM EDT [facility] Eosinophil % 3 0 - 7 % 10/15/2020 [facility] 10:47 AM EDT [facility] Basophil % 1 0 - 2 % 10/15/2020 [facility] Neutrophil 6.7 1.8 - 7.8 10/15/2020 [facility] Absolute x 10*3/uL 10:47 AM [facility] Lymphocyte 1.3 1.0 - 4.8 10/15/2020 [facility] Absolute x 10*3/uL 10:47 AM [facility] Monocyte 0.7 0.0 - 0.8 10/15/2020 [facility] Absolute x 10*3/uL 10:47 [facility] Eosinophil 0.2 0.0 - 0.5 10/15/2020 [facility] Absolute x 10*3/uL 10:47 [facility] Basophil 0.1 0.0 - 0.2 10/15/2020 [facility] Absolute x 10*3/uL 10:47 AM [facility] Specimen Anatomical Collection Method / Collection Time Recei ericka Time (Source) Location / Volume Laterality Blood Venipuncture / 10/15/2020 10:38 1 Unknown AM EDT 10:40 AM EDT Destinee Law PA-C LAB BLOOD ORDERABLES Performing Organization Address City/State/ZIP Code Phon e Number [facility] CLIA# [id number] [place] [address] [facility] [address] (ABNORMAL) Basic Metabolic Panel (10/15/2020 10:38 AM EDT) Analysis Performed At Patho logist Time Signature Sodium 138 136 - 144 10/15/2020 [facility] MMOL/L 11:04 AM [facility] Potassium 4.0 3.5 - 5.1 10/15/2020 [facility] MMOL/L 11:04 AM [facility] Chloride 107 101 - 111 10/15/2020 [facility] MMOL/L 11:04 AM [facility] CO2 23 23 - 30 10/15/2020 [facility] MMOL/L 11:04 AM [facility] BUN 26.0 8.0 - 26.0 10/15/2020 [facility] MG/DL 11:04 AM [facility] Glucose 130 (H) 79 - 115 10/15/2020 [facility] MG/DL 11:04 AM [facility] Creatinine 1.79 (H) 0.90 - 10/15/2020 [facility] 1.30 MG/DL 11:04 AM [facility] Calcium 8.7 (L) 8.9 - 10.3 10/15/2020 [facility] MG/DL 11:04 AM [facility] Anion Gap 8 6 - 16 10/15/2020 [facility] MMOL/L 11:04 AM [facility] Est. GFR 39 (L) >=60 10/15/2020 [facility] Non- ML/MIN/1.7 11:04 AM EDT [facility] [place] [facility] M*2 [facility] Comment: GFR estimated by CKD-EPI equati ons, reportable up to 90 ML/MIN/1.73 M*2 Specimen Anatomical Collection Method / Collection Time Recei ericka Time (Source) Location / Volume Laterality Blood Venipuncture / 10/15/2020 10:38 1 Unknown AM EDT 10:40 AM EDT Destinee Law PA-C LAB BLOOD ORDERABLES Performing Organization Address City/State/ZIP Code Phon e Number [facility] CLIA# [id number] [place] [address] [facility] [address] Urine Culture (10/15/2020 10:37 AM EDT) Component Value Ref Test Method Analysis Performed At Patho logist Range Time Signature Urine culture < 10,000 MICRO SEGUNDO 10/17/2020 [facility] ID col/ml No SUSCEPTIBILITY 9:47 AM EDT [facility] PATHOL workup LABS Specimen Anatomical Collection Method Collection Time Receive d Time (Source) Location / / Volume Laterality Urine URETHRAL STRUCTURE 10/15/2020 10:37 10/15 / Unknown AM EDT 10:40 AM EDT Destinee Law PA-C MICROBIOLOGY - GENERAL ORDER [place] Performing Organization Address City/State/ZIP Code Phon e Number [facility] CLIA# [id number] [place] [address] PATHOL LABS [facility] [place] (ABNORMAL) Urinalysis With Microscopic (10/15/2020 10:37 AM EDT) Patholo gist Method Time Signature Urine Color Blachly (A) Yellow 10/15/2020 [facility] 10:56 AM ON [facility] EDT [facility] Urine Appearance SL Cloudy Clear 10/15/2020 [facility] (A) 10:56 AM ON [facility] EDT [facility] Urine Specific >=1.030 (A) 1.001 - 10/15/2020 [facility] [place] 1.035 10:56 AM ON [facility] EDT [facility] Urine pH 5.0 4.6 - 8.0 10/15/2020 [facility] 10:56 AM ON [facility] EDT [facility] Urine Protein Negative Negative 10/15/2020 [facility] MG/DL 10:56 AM ON [facility] EDT [facility] Urine Glucose Negative Negative 10/15/2020 [facility] MG/DL 10:56 AM ON [facility] EDT [facility] Urine Ketone Negative Negative, 10/15/2020 [facility] 15 MG/DL 10:56 AM ON [facility] EDT [facility] Urine Bilirubin Negative Negative 10/15/2020 [facility] 10:56 AM ON [facility] EDT [facility] Urine Blood/Hb Large (A) Negative 10/15/2020 [facility] 10:56 AM ON [facility] EDT [facility] Urine 0.2 0.2 - 1.0 10/15/2020 [facility] Urobilinogen EU/DL 10:56 AM ON [facility] EDT [facility] Urine Nitrite Negative Negative 10/15/2020 [facility] 10:56 AM ON [facility] EDT [facility] Urine Leukocyte Trace (A) Negative 10/15/2020 [facility] Esterase 10:56 AM ON [facility] EDT [facility] Urine WBC 0-5 None seen, 10/15/2020 [facility] 0-5 /HPF 10:56 AM ON [facility] EDT [facility] Urine RBC >30 (A) None seen, 10/15/2020 [facility] 0-3 /HPF 10:56 AM ON [facility] EDT [facility] Urine Epithelial Few None seen, 10/15/2020 [facility] Cells Few /HPF 10:56 AM ON [facility] EDT [facility] Urine Bacteria None seen None seen, 10/15/2020 [facility] Rare, Few 10:56 AM [facility] EDT [facility] Specimen Anatomical Collection Method Collection Time Receive d Time (Source) Location / / Volume Laterality Urine URINE SPECIMEN / 10/15/2020 10:37 021 Unknown AM EDT 10:40 AM EDT Destinee Law PA-C URINE ORDERABLES Performing Organization Address City/State/ZIP Code Phon e Number [facility] CLIA# [id number] [place] [address] [facility] [address] documented in this encounter Visit Diagnoses Diagnosis Right flank pain - Primary Abdominal pain, unspecified site Hydronephrosis with urinary obstruction due to renal calculus NÉSTOR (acute kidney injury) (HCC) documented in this encounter Administered Medications Inactive Administered Medications - up to 3 most recent administrations Medication Order MAR Action Action Date Dose Rate Site HYDROcodone-acetaminophen Given 10/15/2020 10:39 AM EDT 1 tablet (NORCO) 5-325 mg per tablet 1 tablet 1 tablet Once, Oral, On Re 10/15/20 at 1050, For 1 dose documented in this encounter Active and Recently Administered Medications Times are shown in EDT. Scheduled Medication Order 10/13/2020 10/14/2020 10/15/2020 HYDROcodone-acetaminophen (NORCO) 5-325 mg per tablet 1 tablet ( COMPLETED) 1039 (Given - Provider: Loly Zeng RN) 1 tablet Once, Oral, On Re 10/15/20 at 1050, For 1 dose documented in this encounter Care Teams Call Center Nurse Relationship Specialty Start Date End Date Neal Breen MD PCP - General Family Medicine 07/31/18 07/14/[address] [place] [address] documented as of this encounter
--- OUTSIDE RECORDS SUMMARY | 2021-11-30 11:46 | XMS_ITS | Encounter Summary ---
:1955 Author Organization [facility] [place] [address] Care Team Providers Name Role Phone Neal Breen MD Primary Care Provider [phone] Encounter Details Date Type Department Care Team Description 08/10/2020 Orders Only Cardiology - Heather Johnsonventricu lar Jennifer Wells CMA tachycardia (HCC) 14 [facility] (Primary Dx) [place], [place] [address] [address] [place], [place] [phone] [id number] Social History Tobacco Use Types Packs/Day Years [...] Assigned at Date Recorded Not on file documented as of this encounter Functional Status [...] Results EKG - PERFORMED DURING CLINIC VISIT (08/11/2020 [...] ? QTC ?441 ? ms ? P [place] ? 17 ?degrees ? R [place] ? -52 ? degrees ? T [place] ? 33 ?degrees ? Sinus bradycardia Left [...] Interval 462 ms QTC 441 ms P [place] 17 degrees R [place] -52 degrees T [place] 33 degrees Sinus bradycardia Left axis deviation When compared with ECG of 11-FEB-2020 11 :44, No significant change was found Confirmed by Funmilayo Eason ([id number]) on 07/17 9:48:45 PM Funmilayo Eason MD ECG SPECIAL Performing Organization Address City/State/ZIP Code Phon e Number MUSE documented in this encounter Visit Diagnoses Diagnosis Supraventricular tachycardia (HCC) - Velma andres Other specified cardiac dysrhythmias Supraventricular tachycardia (HCC) Other specified cardiac dysrhythmias documented in this encounter Care Teams Overcoiler Relationship Specialty Start Date End Date Neal Breen MD PCP - General Family Medicine 07/31/18 07/14/[address] [place] [address] documented as of this encounter
--- OUTSIDE RECORDS SUMMARY | 2021-11-30 11:46 | XMS_ITS | Encounter Summary ---
:1955 Author Organization [facility] [place] [address] Care Team Providers Name Role Phone Neal Breen MD Primary Care Provider Reason for Visit Auth/Cert Specialty Diagnoses / Procedures Referred By Contact Refer red To Contact Diagnoses Calculus of ureter ureteral stone Procedures [place] FRAGMENT KIDNEY STONE/ ESWL [facility] ESWL Referral ID Status Reason Start Date Expiration Date Visits Requ ested Visits Authorized [id number] 1 1 Encounter Details Date Type Department Care Team Description 01/15/2021 Hospital Encounter Surgical Services - Fady Ndiaye MD [address] [place] [id number] [place] [address] [facility] [place], [place] [address] (Wo rk) Social History [...] Sign Reading Time Taken Comments Blood Pressure 109/61 01/15/2021 5:55 PM EDT Pulse 66 01/15/2021 12:31 PM EDT Temperature 36.6 ??C (97.8 ??F) 01/15/2021 5:55 PM EDT Respiratory Rate 18 01/15/2021 5:55 PM EDT Oxygen Saturation 98% 01/15/2021 5:55 PM EDT Inhaled Oxygen Concentration - - [...] Results POCT Glucose (01/15/2021 1:01 PM EDT) [facility] Method Time Signature POC GLUCOSE NPO/no NOVA [...] dose documented in this encounter Care Teams Elevator Supervisor Relationship Specialty Start Date End Date Neal Breen MD PCP - General Family Medicine 07/31/18 07/14/[address] [place] [address] documented as of this encounter
--- OUTSIDE RECORDS SUMMARY | 2021-11-30 11:46 | XMS_ITS | Encounter Summary ---
:1955 Author Organization [facility] [place] [address] Care Team Providers Name Role Phone Neal Breen MD Primary Care Provider [phone] Encounter Details Date Type Department Care Team Description 01/15/2021 Travel Social History Tobacco Use Types Packs/Day [...] on filedocumented in this encounter Care Teams Dairy Feed Mixing Operator Relationship Specialty Start Date End Date Neal Breen MD PCP - General Family Medicine 07/31/18 07/14/[address] [place] [address] documented as of this encounter
--- OUTSIDE RECORDS SUMMARY | 2021-11-30 11:46 | XMS_ITS | Encounter Summary ---
:1955 Author Organization [facility] [place] [address] Care Team Providers Name Role Phone Neal Breen MD Primary Care Provider [phone] Encounter Details Date Type Department Care Team Description 01/15/2021 Anesthesia Event Surgical Services - Chelsea Curtis RN [address] [id number] Anesthesia Record Procedure Summary Procedure Name Responsible Anesthesia Start Anesthesia Stop Time Anesthesiologist Time [facility] ESWL (Left Bladder) Events No events on file. No medications on file. Agents No agents on file. Blood No blood administrations on file. Lines, Drains, and Airways Type Details Placement Removal Airway 03/29/19; 1451 (created via 03/29/19 1451 by Debbie Carl procedure documentation); LMA; 4.5 Lawson, SCAFFOLDING HELPER mm Incision 03/29/19; 1503; No; Urethra; no 03/29/19 1503 by Francisco Ravi RN documented in this encounter Social History Tobacco [...] on filedocumented in this encounter Care Teams Hydro Generation Supervisor Relationship Specialty Start Date End Date Neal Breen MD PCP - General Family Medicine 07/31/18 07/14/[address] [place] [address] documented as of this encounter
--- OUTSIDE RECORDS SUMMARY | 2021-11-30 11:47 | XMS_ITS | Encounter Summary ---
:1955 Author Organization [facility] [place] [address] Care Team Providers Name Role Phone Neal Breen MD Primary Care Provider [phone] Pcp, Patient Does Not Have Primary Care Provider [phone] Encounter Details Date Type Department Care Team Description 04/15/[address] [facility] Kmi Faustin CMA [address] [place] [address] [place] [address] [phone] Social History Tobacco Use Types Packs/Day Years Used Date Former Smoker Cigarettes Quit: 04/16/19 89 Smokeless Tobacco: Never Used Alcohol Use Standard Drinks/Week Comments Yes 0 [...] been in contact with No / Unsure 04/01/2020 4:39 PM EST someone who was confirmed or [...] Procedure Name Priority Date/Time Associated Diagnosis Comme [facility] FIT-DNA STOOL TEST Routine 04/07/2020 Result s for this procedure are i n the results section . documented in this encounter Results FIT-DNA STOOL TEST (04/07/2020) athologist Signature FIT DNA positive TEST Historical Provider LAB BLOOD ORDERABLES documented in this encounter Visit Diagnoses Not on filedocumented in this encounter Additional Health Concerns Infection Onset Date Last Indicated Resolved Time R/O COVID-19 04/20/2020 04/20/2020 04/20/2020 4:41 PM EST R/O COVID-19 04/20/2020 04/20/2020 04/23/2020 4:36 AM EST R/O COVID-19;Influenza 06/28/2020 06/28/2020 3:28 PM EDT R/O COVID-19 11/23/2020 11/23/2020 11/24/2020 7:42 PM EDT documented as of this encounter Care Teams Entry Level Sales Consultant Relationship Specialty Start Date End Date Neal Breen MD PCP - General Family Medicine 07/31/18 07/14/[address] [place] [address] Pcp, Patient Does Not Have PCP - General Family Medicine 07/15/21 documented as of this encounter
--- OUTSIDE RECORDS SUMMARY | 2021-11-30 11:47 | XMS_ITS | Encounter Summary ---
:1955 Author Organization [facility] [place] [address] Care Team Providers Name Role Phone Neal Breen MD Primary Care Provider [phone] Reason for Referral Surgical (Routine) - Closed Specialty Diagnoses / Procedures Referred By Contact Refer red To Contact General Surgery Diagnoses Positive colorectal cancer screening using Cologuasandy test Neal Breen, [facility] Surgery-Jennifer DELGADO [employer] [address] [place] [address] Referral ID Status Reason Start Date Expiration Date Visits V isits Requested Authorized [id number] Closed Specialty 04/14/2020 04/14/2021 1 1 Services Required Reason for Visit Reason Onset Date Comments Cologuasandy 04/14/2020 Encounter Details Date Type Department Care Team Description 04/14/2020 Telephone [facility] Neal Barlow MD Cologuard Family Medicine - Hannah tiwari [address] [place] [address] [place] [address] [place] [address] [phone] Social History Tobacco Use Types Packs/Day Years [...] this encounter Miscellaneous Notes Telephone Encounter - Susy Meade CMA - 04/14/2020 2:43 PM EST Patient notified of results and instructions per and verbally understands. Electronically signed by: Susy Meade CMA 04/14/20 1445 Telephone Encounter - Neal Breen MD - 04/14/2020 8:07 AM EST Please advise patient his cologuard was positive. This does not mean he necessarily has colon cancer, but he likely has high risk polyps. I have placed referral to gen surg for colonoscopy Thanks! Electronically signed by: Neal Breen MD 04/14/20 0808 documented in this encounter Plan of Treatment Not on filedocumented as of this encounter Visit Diagnoses Diagnosis Positive colorectal cancer screening usi ng Cologuard test - Primary documented in this encounter Care Teams Glazing Machine Operator Relationship Specialty Start Date End Date Neal Breen MD PCP - General Family Medicine 07/31/18 07/14/[address] [place] [address] documented as of this encounter
--- OUTSIDE RECORDS SUMMARY | 2021-11-30 11:47 | XMS_ITS | Encounter Summary ---
:1955 Author Organization [facility] [place] [address] Care Team Providers Name Role Phone Neal Breen MD Primary Care Provider [phone] Reason for Visit Auth/Cert Specialty Diagnoses / Procedures Referred By Contact Refer red To Contact Diagnoses Dysuria Dysuria [R30.0] Procedures [facility] CYSTOSCOPY,DIR VIS INT URETHROTOMY CYSTOSCOPY W/ INTERNAL URETHROTOMY Referral ID Status Reason Start Date Expiration Date Visits Requ ested Visits Authorized [id number] 1 1 Encounter Details Date Type Department Care Team Description 03/29/2019 Surgery Surgical Services - Fady Ndiaye COPY W/ INTERNAL Jennifer Lovell MD URETHROTOMY [address] [place] [address] [address] [place], [place] [address] (Wo rk) Surgery Details Date/Time Status Location OR Service Patient Class Case Class Case Trauma Type Case? 03/29/19 Posted [facility] Scheduled 11:00 AM Outpatient (OP/Surg Surgery Admit-Sched) (>) 5 days Panel 1 Procedure [facility] Anes Op Region Wound Class Commen ts CYSTOSCOPY W/ INTERNAL URETHROTOMY N/A General Bladder C lean Contaminated Surgeon Surgeon Role Service Panel Fady Ndiaye MD Primary Urology 1 Special Needs sheehan cold knife uretrotome documented in this encounter Social History Tobacco [...] on file documented as of this encounter Last Filed Vital Signs Vital Sign Reading Time Taken Comments Blood Pressure 148/78 03/29/2019 10:20 AM EST Pulse 66 03/29/2019 10:20 AM EST Temperature 36.2 ??C (97.1 ??F) 03/29/2019 10:20 AM EST Respiratory Rate 18 03/29/2019 10:20 AM EST Oxygen Saturation 93% 03/29/2019 10:20 AM EST Inhaled Oxygen Concentration - - Weight 108 kg (238 lb) 03/29/2019 10:20 AM EST Height 177.8 cm (5' 10) 03/29/2019 10:20 AM EST Body Mass Index 34.15 03/29/2019 10:20 AM EST documented in this encounter Functional [...] as of this encounter Discharge Instructions Discharge InstructionsIsabella Hurst RN - 03/29/2019 3:52 PM EST You can not drive today, operate any type machinery, make any type of legal decisions. If you consume alcohol you need to refrain from it for 24 hours It is advised to stay within an hour radius of the hospital. If you have chest pain, difficulty breathing, RETURN to the emergency department. If for any reason you return to the hospital, please make them aware of the surgical procedure you had. You can eat anything you desire, but start out light, water, gatorade, tea, israel-lauro, soup & crackers then advance as tolerated. Signs & symptoms of infection, fever, chills, increase redness at surgical site, area become hotto touch, drainage with odor, promptly call your surgeon. Call your surgeon if you are not able to urinate. Severe pain, not relieved with pain medication, nausea & vomiting. documented in this encounter Medications at Time of Discharge Medication Sig Dispensed Refills Start Date End Date donepezil (ARICEPT) 10 MG Take 10 mg by 0 tablet mouth in the morning and at bedtime. memantine 28 mg CSpX Take 28 mg by 0 mouth daily. ascorbic acid, vitamin C, Take 500 mg by 0 04/22/2020 (VITAMIN C) 500 MG tablet mouth every morning. atorvastatin (LIPITOR) 20 Take 20 mg by 0 08/12/2019 MG tablet mouth daily. ciprofloxacin HCl (CIPRO) Take 1 tablet (500 14 tablet 0 04/04/2019 500 MG tablet mg total) by mouth 2 times daily for 7 days. cyclobenzaprine (FLEXERIL) Take 1 tablet (10 20 tablet 0 07/08/2021 10 MG tablet mg total) by mouth 2 (two) times daily as needed for up to [address] 1 drop into 0 019 70/POLYCARBOPHIL/PEG/NACL both eyes as (ARTIFICIAL TEAR SOLUTION needed. OPHT) flecainide (TAMBOCOR) 100 Take 1 tablet (100 180 tablet 3 02/18/2020 MG tablet mg total) by mouth 2 times daily. fluticasone (FLONASE) 50 2 sprays by Each 0 08/2104/04/2019 mcg/actuation nasal spray Nare route daily as needed. ketoconazole (NIZORAL) 2 % Use to wash 0 05/16/2019 shampoo affected area of back daily for 2 weeks, then use once weekly loratadine (CLARITIN) 5 mg Take 5 mg by mouth 0 04/04/2019 chewable tablet daily as needed. metFORMIN ER Take 1 tablet (500 60 tablet 5 01/03/201907/16 (GLUCOPHAGE-XR) 500 MG mg total) by mouth extended release tablet 2 times daily with meals. metoPROLOL succinate TAKE 1 TABLET BY 90 tablet 5 9 02/11/2020 (TOPROL-XL) 25 MG 24 hr MOUTH ONCE DAILY tablet multivitamin capsule Take 1 capsule by 0 03/01/2021 mouth daily. traMADol (ULTRAM) 50 mg Take 1 tablet (50 20 tablet 0 03/2904/04/2019 tablet mg total) by mouth every 6 (six) hours as needed for up to 5 days. documented as of this encounter Nursing Notes Halle Mckenzie RN - 03/29/2019 3:44 PM EST Stable on transfer. SHARED report to Jose Francisco Hurst RN. Electronically signed by: Halle Mckenzie RN 03/29/19 1546 documented in this encounter Miscellaneous Notes Op Note - Fady Ndiaye MD - 03/29/2019 3:01 PM EST Procedure(s): CYSTOSCOPY W/ INTERNAL URETHROTOMY Procedure Note Dario Mckeon [id number] 03/29/2019 Pre-op Diagnosis: Dysuria [R30.0] Bulbar stricture Post-op Diagnosis: SAME CPT Code: Procedures: * CYSTOSCOPY W/ INTERNAL URETHROTOMY ICD-10 : Post-Op Diagnosis Codes: * Dysuria [R30.0] Laterality : N/A Indications: hematuria Surgeons: Surgeon(s) and Role: * Fady Ndiaye MD - Primary Anesthesia: General ASA Class: 3 Procedure Details : After a satisfactory general anesthesia patient was placed in lithotomy positionpenoscrotal area prepped draped usual manner. Cystoscopy was performed revealed a bulbar stricture and a 0.35 sensor wire was used to cannulate the lumen and guided into the bladder. Optical cold knifeurethrotome was then inserted and a 12:00 incision was made through the strictured area. This was relatively short measuring less than 1 cm. I was able to gain entry into the bladder. There was a shortminimally obstructing prostate. There were mild changes of bladder outlet obstruction with 1-2+ trabeculation. Orifices were normal there were no obvious mucosal lesions tumors or stones. Guidewire was left in place and then Seaman catheter was placed over the guidewire #20 Spanish. This should be removed 5 to 7 days by nursing staff. Tolerated procedure well sent home with postproceduralinstructions. Findings: short bulbar stricture Estimated Blood Loss: Minimal Drains: 20 fr seaman Specimens: * No specimens in log * Implants: * No implants in log * Complications: None Disposition: PACU - hemodynamically stable. Condition: stable Electronically signed by: Fady Ndiaye MD Date: 03/29/2019 Time: 3:16 PM Electronically signed by: Fady Ndiaye MD 03/29/19 1518 documented in this encounter Plan of Treatment Not on filedocumented as of this encounter Procedures Procedure Name Priority Date/Time Associated Comments Diagnosis POCT GLUCOSE Routine 03/29/2019 4:13 PM Results f or this EST procedure are i n the results section. POCT GLUCOSE Routine 03/29/2019 3:25 PM Results f or this EST procedure are i n the results section. CYSTOSCOPY W/ 03/29/2019 2:23 PM Dysuria INTERNAL URETHROTOMY EST Special Needs sheehan cold knife uretrotom e POCT GLUCOSE Routine 03/29/2019 2:20 PM EST Resul ts for this procedure are in the results section . POCT GLUCOSE Routine 03/29/2019 10:45 AM EST Resu lts for this procedure are in the results section . documented in this encounter Results POCT Glucose (03/29/2019 4:13 PM EST) Analysis Performed At Patho logist Time Signature POC GLUCOSE Post-Meal NOVA COMMENT GLUCOSE, POC, 73 70 - 99 NOVA NOVA mg/dL Specimen Anatomical Collection Method Collection Time Receive d Time (Source) Location / / Volume Laterality 03/29/2019 4:13 PM 9 4:15 EST PM EST Fady Ndiaye MD POCT ORDERABLES - DEVICE Performing Organization Address [facility] Phon e Number NOVA POCT Glucose (03/29/2019 3:25 PM EST) [facility] Method Time Signature POC GLUCOSE To notify BHAVNA VARGAS MD/BERNARD GLUCOSE, POC, 75 70 - 99 NOVA NOVA mg/dL Specimen Anatomical Collection Method Collection Time Receive d Time (Source) Location / / Volume Laterality 03/29/2019 3:25 PM 9 3:25 EST PM EST Fady Ndiaye MD POCT ORDERABLES - DEVICE Performing Organization Address [facility] Phon e Number NOVA POCT Glucose (03/29/2019 2:20 PM EST) [facility] Method Time Signature POC GLUCOSE NPO/no NOVA COMMENT enteral feeding GLUCOSE, POC, 75 70 - 99 NOVA NOVA mg/dL Specimen Anatomical Collection Method Collection Time Receive d Time (Source) Location / / Volume Laterality 03/29/2019 2:20 PM 9 2:20 EST PM EST Fady Ndiaye MD POCT ORDERABLES - DEVICE Performing Organization Address [facility] Phon e Number NOVA POCT Glucose (03/29/2019 10:45 AM EST) P athologist Signature POC GLUCOSE Pre-Meal BHAVNA VARGAS GLUCOSE, POC, 89 70 - 99 NOVA NOVA mg/dL Specimen Anatomical Collection Method Collection Time Receive d Time (Source) Location / / Volume Laterality 03/29/2019 10:45 03/29/2019 AM EST 10:46 AM EST Fady Ndiaye MD POCT ORDERABLES - DEVICE Performing Organization Address [facility] Phon e Number NOVA documented in this encounter Visit Diagnoses Diagnosis Dysuria - Primary 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 Dysuria documented in this encounter Admitting Diagnoses Diagnosis Dysuria documented in this encounter Administered Medications Inactive Administered Medications - up to 3 most recent administrations Medication Order MAR Action Action Date Dose Rate Site fentaNYL (SUBLIMAZE) injection 50 mcg 50 mcg Every 5 min PRN, Intravenous, Sev ere pain (7-10), Starting on Mon03/29/19 at 1049, For 4 doses, PACU, Location of Care: OR/Proce dural Area haloperidol lactate (HALDOL) injection 5 mg 5 mg Once as needed, Intravenous, Agitat ion, Starting on Mon03/29/19 at 1049, For 1 dose, PACU lactated ringers infusion at 20-1,000 mL/hr, Intravenous, Continuo us, Starting on Mon03/29/19 at 1130, For 6 hours, Keep running at current rate from OR. Do not ex ceed 1000 mL without physician order. PACU use only., PACU ondansetron (ZOFRAN) injection 4 mg 4 mg Once as needed, Intravenous, Post-op Nausea / Vom iting, Starting on Mon03/29/19 at 1049, For 1 dose, PACU sodium chloride 0.9 % irrigation Given 03/29/2019 3:02 PM EST 1,000 mLs Intra-op PRN, Starting on Mon03/29/19 at 1502, Anesthesia Intra-op Given 03/29/2019 3:00 PM EST 3,000 mLs documented in this encounter Active and Recently Administered Medications Times are shown in EST. Scheduled Medication Order 03/27/2019 03/28/2019 03/29/2019 cefTRIAXone (ROCEPHIN) 1 g in sodium chloride 0.9 % 100 mL MBP 1200 (Canceled Entry - Provider: Automatic Discharge Provider - Comment: Automatically canceled at discontinue of medication order) 1 g rn call center to O.R., Intravenous, Admini ster over 30 Minutes, First dose on Mon03/29/19 at 1200, For 1 dose, Purpose: Prophylaxis Continuous Medication Order 03/27/2019 03/28/2019 03/29/2019 lactated ringers infusion 1130 ( Canceled Entry - Provider: Automatic Discharge Provider - Comment: Automatically canceled at discontinue of medication order) at 20-1,000 mL/hr, Intravenous, Continuo us, Starting Mon03/29/19 at 1130, For 6 hours, Keep running at current rate from OR. Do not exceed 1000 mL without physician order. PACU use only., PACU PRN Medication Order 03/27/2019 03/28/2019 03/29/2019 fentaNYL (SUBLIMAZE) injection 50 mcg 50 mcg Every 5 min PRN, Intravenous, Sev ere pain, Starting Mon03/29/19 at 1049, PACU haloperidol lactate (HALDOL) injection 5 mg 5 mg Once as needed, Intravenous, Agitat ion, Starting Mon03/29/19 at 1049, For 1 dose, PACU ondansetron (ZOFRAN) injection 4 mg 4 mg Once as needed, Intravenous, Post-o p Nausea / Vomiting, Starting Mon03/29/19 at 1049, For 1 dose, PACU sodium chloride 0.9 % irrigation (CANCELED) 1500 (Given - Provider: Fady Ndiaye MD)1502 (Given - Provider: Fady Ndiaye MD) Intra-op PRN, Starting Mon03/29/19 at 1502, Anesthesia Intra-op documented in this encounter Care Teams Environmental Manager Relationship Specialty Start Date End Date Neal Breen MD PCP - General Family Medicine 07/31/18 07/14/[address] [place] [id number] documented as of this encounter
--- OUTSIDE RECORDS SUMMARY | 2021-11-30 11:47 | XMS_ITS | Encounter Summary ---
:1955 Author Organization [facility] [place] [address] Care Team Providers Name Role Phone Neal Breen MD Primary Care Provider [phone] Encounter Details Date Type Department Care Team Description 02/11/2020 Orders Only Cardiology - Andres Handley CM A Supraventricular [place] [address] tachycardia (HCC) [address] (Primary Dx) [place] [address] [phone] Social History Tobacco Use Types Packs/Day Years [...] Results EKG - PERFORMED DURING CLINIC VISIT (02/11/2020 11:44 AM EDT) Specimen Anatomical Collection Method Collection Time Receive d Time (Source) Location / / Volume Laterality 02/11/2020 11:44 02/12/2020 8:37 AM EDT AM EDT Narrative MUSE - 02/12/2020 8:37 AM EDT Ventricular Rate ? 56 ?BPM ? Atrial Rate ?56 ?BPM ? P-R Interval ? 184 ? ms ? QRS Duration ? 104 ? ms ? Q-T Interval ? 432 ? ms ? QTC ?416 ? ms ? P Dillon ? 9 ? degrees ? R Dillon ? -45 ? degrees ? T Dillon ? 14 ?degrees ? Sinus bradycardia Left anterior fascicular block When compared with ECG of 12-AUG-2019 11 :16, No significant change was found Confirmed by Funmilayo Eason ([id number]) on 8:37:42 AM Procedure Note Funmilayo Eason MD - 02/12/2020For matting of this note might be different from the original. Ventricular Rate 56 BPM Atrial Rate 56 BPM P-R Interval 184 ms QRS Duration 104 ms Q-T Interval 432 ms QTC 416 ms P Dillon 9 degrees R Dillon -45 degrees T Dillon 14 degrees Sinus bradycardia Left anterior fascicular block When compared with ECG of 12-AUG-2019 11 :16, No significant change was found Confirmed by Funmilayo Eason ([id number]) on 8:37:42 AM Funmilayo Eason MD ECG SPECIAL Performing Organization Address City/State/ZIP Code Phon e Number MUSE documented in this encounter Visit Diagnoses Diagnosis Essential hypertension, benign - Primary Supraventricular tachycardia (HCC) Other specified cardiac dysrhythmias Supraventricular tachycardia (HCC) - Velma andres Other specified cardiac dysrhythmias documented in this encounter Care Teams Vacuum Cleaner Mechanic Relationship Specialty Start Date End Date Neal Breen MD PCP - General Family Medicine 07/31/18 07/14/[address] [place] [address] documented as of this encounter
--- OUTSIDE RECORDS SUMMARY | 2021-11-30 11:47 | XMS_ITS | Encounter Summary ---
:1955 Author Organization [facility] ptist [place] [address] Care Team Providers Name Role Phone Neal Breen MD Primary Care Provider [phone] Encounter Details Date Type Department Care Team Description 10/09/2019 Travel Social History Tobacco Use Types Packs/Day [...] been in contact with No / Unsure 10/09/2019 2:06 PM EDT someone who was confirmed or [...] on filedocumented in this encounter Care Teams Naprapath Relationship Specialty Start Date End Date Neal Breen MD PCP - General Family Medicine 07/31/18 07/14/[address] [place] [address] documented as of this encounter
--- OUTSIDE RECORDS SUMMARY | 2021-11-30 11:47 | XMS_ITS | Encounter Summary ---
:1955 Author Organization [facility] [place] [address] Care Team Providers Name Role Phone Neal Breen MD Primary Care Provider [phone] Encounter Details Date Type Department Care Team Description 03/16/2020 Lab Visit [facility] T ype 2 diabetes mellitus Phlebotomy-[place] with hyperglycemia, without [address] long-[place] [address] insulin ([facility]) [phone] Social History Tobacco Use Types Packs/Day Years [...] been in contact with No / Unsure 03/16/2020 11:00 AM EST someone who was confirmed or [...] Associated Diagnosis Comme nts HEMOGLOBIN A1C Routine 03/16/2020 11:39 AM Type 2 diabetes Res ults for this EST mellitus with procedure are in the hyperglycemia, results secti on. without long-term current use of insulin (HCC) documented in this encounter Results Hemoglobin A1C (03/16/2020 11:39 AM EST) P athologist Signature HEMOGLOBIN A1C 5.5 <5.7 % 03/16/2020 [facility] 6:32 PM [facility] PATHFluid-1 LABS Comment: Normal: ? Less than 5.7% Prediabetes: ??5.7% to 6.4% Diabetes: ? Greater than 6.4% eAG 111 MG/DL 03/16/2020 6:32 PM EST [facility] PATHOL LABS eAG Comment 03/16/2020 6:32 PM EST [facility] [place] PATHFluid-1 LABS Comment: The [employer] on has supported the use [...] Location / Volume Laterality Blood Venipuncture / 03/16/2020 11:39 0 Unknown AM EST 11:39 AM EST Neal Breen MD LAB BLOOD ORDERABLES Performing Organization Address City/State/ZIP Code Phon e Number [facility] [place] CLIA# [id number] [place] [address] [facility] documented in this encounter Visit Diagnoses Diagnosis Type 2 diabetes mellitus with hyperglyce jackelyn, without long-term current use of insulin (HCC) documented in this encounter Care Teams Healthcare Management Consultant Relationship Specialty Start Date End Date Neal Breen MD PCP - General Family Medicine 07/31/18 07/14/[address] [place] [id number] documented as of this encounter
--- OUTSIDE RECORDS SUMMARY | 2021-11-30 11:47 | XMS_ITS | Encounter Summary ---
:1955 Author Organization [facility] [place] [address] Care Team Providers Name Role Phone Neal Breen MD Primary Care Provider [phone] Reason for Visit Auth/Cert Specialty Diagnoses / Procedures Referred By Contact Refer red To Contact Diagnoses screening Procedures AL COLONOSCOPY FLX DX W/COLLJ SPEC WHEN PFRMD AL COLONOSCOPY W/BIOPSY SINGLE/MULTIPLE AL COLON CA SCRN NOT HI RSK IND AL COLORECTAL SCRN, HI RISK IND COLONOSCOPY Referral ID Status Reason Start Date Expiration Date Visits Requ ested Visits Authorized [id number] 1 1 Encounter Details Date Type Department Care Team Description 04/28/2020 Hospital Encounter Endoscopy - Mckay Renee [address] [place] [address] [place] [address] [place] [address] [place], [place] [address] (Wo rk) Social History Tobacco Use Types [...] Sign Reading Time Taken Comments Blood Pressure 102/59 04/28/2020 12:40 PM EST Pulse 64 04/28/2020 8:47 AM EST Temperature 36.6 ??C (97.8 ??F) 04/28/2020 12:40 PM EST Respiratory Rate 20 04/28/2020 12:40 PM EST Oxygen Saturation 96% 04/28/2020 12:40 PM EST Inhaled Oxygen Concentration - - [...] years! For emergencies contact: Dr. Sanz at [facility] [phone] After discharge you may receive a survey from [employer] regarding your stay with us. Please fill out this survey and return it in the self-addressed, stamped envelope included. This is the most important way that you can share your feedback and/or gratitude regarding the care you received. At [facility] it is our goal to provide exceptional [...] INTERNAL URETHROTOMY; Surgeon: Fady Ndiaye MD; [facility]; Service: Urology; Laterality: N/A; ??? JOINT REPLACEMENT left knee replacement ??? LUMBAR / THORACIC MEDIAL BRANCH BLOCK N/A 08/02/2017 Procedure: LUMBAR/THORACIC MEDIAL BRANCH BLOCK (Right L2-5); Surgeon: Petr Brito MD; Location: [facility]; Service: Rehab Medicine; Laterality: N/A; ??? LUMBAR / THORACIC MEDIAL BRANCH BLOCK Right 08/15/2017 Procedure: LUMBAR/THORACIC MEDIAL BRANCH BLOCK - Right L2-L5; Surgeon: Neptali Toledo MD; Location: [address] [facility]; Service: Anes Physiatry; Laterality: [...] file Gets together: Not on file Attends mandaen service: Not on file Active member of [...] Cancer Paternal Grandfather ??? Stroke Neg Hx [employer]ENGTH No flowsheet data found. Review of [...] telemedicine encounter with the present provider at [facility]. The patient/authorized person was informed of the [...] on filedocumented in this encounter Care Teams Housekeeping Associate Relationship Specialty Start Date End Date Neal Breen MD PCP - General Family Medicine 07/31/18 07/14/[address] [place] [id number] documented as of this encounter
--- OUTSIDE RECORDS SUMMARY | 2021-11-30 11:47 | XMS_ITS | Encounter Summary ---
:1955 Author Organization [facility] [place] [address] Care Team Providers Name Role Phone Neal Breen MD Primary Care Provider [phone] Reason for Visit Reason Onset Date Comments [facility] 06/04/2019 Encounter Details Date Type Department Care Team Description 06/04/2019 Telephone Sleep Lab - Main Flr [place], [place] [facility] [place] [id number] [phone] Social History Tobacco Use Types Packs/Day Years [...] Telephone Encounter - Kaley Gomes MT - 06/04/2019 9:03 AM EST Forwarded CPAP order to Екатерина Peters at [facility]. Pt has a follow up scheduled for 07/18/2019. Electronically signed by: Kaley Gomes MT 06/04/19 0904 documented in this encounter Plan of Treatment Not on filedocumented as of this encounter Visit Diagnoses Not on filedocumented in this encounter Care Teams Charge Operator Relationship Specialty Start Date End Date Neal Breen MD PCP - General Family Medicine 07/31/18 07/14/[address] [place] [address] documented as of this encounter
--- OUTSIDE RECORDS SUMMARY | 2021-11-30 11:47 | XMS_ITS | Encounter Summary ---
:1955 Author Organization [facility] [place] [address] Care Team Providers Name Role Phone Neal Breen MD Primary Care Provider [phone] Reason for Visit Reason Comments Fatigue Sore Throat Encounter Details Date Type Department Care Team Description 04/20/2020 Office Visit [facility] Tremaine Lowery Contact with and [facility] DEBBIE De Jesus (suspected) exposure [facility] to other [facility] communicable diseases [address], [place] (Primary Dx) [place] [phone] Social History Tobacco Use Types Packs/Day Years [...] have you been in contact with Yes 04/20/2020 4:27 PM EST someone who was confirmed or suspected to have Coronavirus / COVID-19? documented as of this encounter Last Filed Vital Signs Vital Sign Reading Time Taken Comments Blood Pressure 113/65 04/20/2020 4:29 PM EST Pulse 59 04/20/2020 4:29 PM EST Temperature 36.8 ??C (98.2 ??F) 04/20/2020 4:29 PM EST Respiratory Rate - - Oxygen Saturation 96% 04/20/2020 4:29 PM EST Inhaled Oxygen Concentration - - Weight 113.2 kg (249 lb 8 oz) 04/20/2020 4:29 PM EST Height 177.8 cm (5' 10) 04/20/2020 4:29 PM EST Body Mass Index 35.8 04/20/2020 4:29 PM EST documented in this [...] documented as of this encounter Progress Notes Tremaine Lowery PA-C - 04/20/2020 4:15 PM EST SUBJECTIVE: Dario Mckeon is a 64 y.o. male who complains of fatigue, sore throat for 5 days. Admits to 1 loose stool. Denies fever, vomiting, change in taste, change in smell. HAVE YOU HAD EXPOSURE TO SOMEONE THAT TESTED POSITIVE FOR COVID-19? Yes Parts of patient history reviewed include PMH, problem list, medications, allergies, social history,family history, and surgical history. OBJECTIVE: Vitals: 04/20/20 1629 BP: 113/65 Pulse: 59 Temp: 98.2 ??F (36.8 ??C) SpO2: 96% General: Patient is well-nourished and in no acute distress. Skin: No rash noted. Head: Normocephalic, atraumatic. Eyes: EOM intact Ears: Gross hearing intact. Lungs: CTA bilaterally. Normal effort. Heart: NRR with no murmurs, rubs, or gallops. Neurologic: Alert and oriented Rapid COVID: negative ASSESSMENT: 1. Contact with and (suspected) exposure to other viral communicable diseases PLAN: Proper PPE used by staff and myself during entire visit. Patient wore mask. Discussed likely viral Hydrate Rest Discussed for patient to home isolate pending PCR test. If positive I recommend patient home isolateuntil it has been at least 10 days since symptom onset and >24 hours after symptom resolution (absence of fever without the use of fever- reducing medication and improvement in symptoms), whichever is longer. Discussed if PCR negative may stop home isolation. Call or return with any questions or concerns Spoke at length about changing or worsening of symptoms that should prompt going directly to the closest ER. Patient is agreeable with assessment and plan. Dario Mckeon was evaluated on 04/20/2020 for the symptoms described in the history of present illness. He/she was evaluated in the context of the global COVID-19 pandemic, which necessitated consideration that the patient might be at risk for infection with the SARS-CoV-2 virus that causes COVID-19. Institutional protocols and algorithms that pertain to the evaluation of patients at risk for COVID-19 are in a state of rapid change based on information released by regulatory bodies including the CDC and federal and state organizations. These policies and algorithms were followed during the patient's care. Electronically signed by: Tremaine Lowery PA-C 04/20/2020 4:38 PM Electronically signed by: Tremaine Lowery PA-C 04/20/20 1652 documented in this encounter Plan of Treatment Not on filedocumented as of this encounter Procedures Procedure Name Priority Date/Time Associated Diagnosis Comme nts COVID-19 NAAT Routine 04/20/2020 4:50 PM Contact with and Resu lts for this (ALGNY - SENDOUT) EST (suspected) exposure pr ocedure are in to other viral the results communicable diseases sectio n. POCT COVID BD Routine 04/20/2020 4:40 PM Contact with and Resu lts for this EST (suspected) exposure procedu re are in to other viral the results communicable diseases sectio n. documented in this encounter Results COVID-19 for Symptomatic Patients (04/20/2020 4:50 PM EST) [facility] Method Time Signature COVID19 Not Detected Not Detected 04/23/2020 [facility] 4:35 AM EST Comment: This nucleic acid amplification test was developed and its performance characteristics determined by [facility]. Nucleic acid amplification tests include PCR and TMA. This test has not been FDA cleared or approved. This test has been authorized by FDA under an Emergency Use Authorization (EUA). This test is only authorized for the duration of time the declaration poonam t circumstances exist justifying the authorization of the [facility] use of in vitro diagnostic tests for detection of SARS-C oV-2 virus and/or diagnosis of COVID-19 infection under section 564( b)(1) of the Act, 21 U.S.C. 360bbb-3(b) (1), unless the authorizatio n is terminated or revoked sooner. When diagnostic testing is negative, the possibility of a false negative result should be considered in the context of a patient's recent exposures and the presence of cli nical signs and symptoms consistent with COVID-19. An individual without symptoms of COVID-19 and who is not shedding SARS-CoV-2 virus would expect to have a negative (not detected) result in this a ssay. Specimen (Source) Anatomical Collection Method Collection Time Re ceived Time Location / / Volume Laterality Nasopharyngeal Swab 04/20/2020 4:50 04/20 (Nasal) PM EST 9:37 PM EST Narrative [facility] - 04/23/2020 4:35 AM EST Performed at: ??[address] - [address] ??[id number] Fin[address] Patcher: Morales Bhatti MD, Phone: ??[phone] Tremaine Lowery PA-C BODY FLUIDS AND STOOLS (NON- MICRO) ORDERABLES Performing Organization Address City/State/ZIP Code Phon e Number [facility] POCT COVID BD (04/20/2020 4:40 PM EST) [facility] gist Method Time Signature COVID Negative Negative [facility] Antigen, [facility] COVID Antigen Internal QC Internal QC [facility] Internal QC, - Passed - Passed [facility] COVID KIT EXP [facility]03[facility]2020 [facility] [id number] [facility] NUM, [facility] Specimen (Source) Anatomical Collection Method Collection Time Re ceived Time Location / / Volume Laterality 04/20/2020 4:40 PM EST Tremaine Lowery PA-C POINT OF CARE TEST ORDERABLE S Performing Organization Address City/State/ZIP Code Phon e Number [facility] CLIA# [id number] [address] ([place] [id number]) documented in this encounter Visit Diagnoses Diagnosis Contact with and (suspected) exposure to other viral communicable diseases - Primary documented in this encounter Additional Health Concerns Infection Onset Date Last Indicated Resolved Time R/O COVID-19 04/20/2020 04/20/2020 04/20/2020 4:41 PM EST R/O COVID-19 04/20/2020 04/20/2020 04/23/2020 4:36 AM EST documented as of this encounter Care Teams Log Manager Relationship Specialty Start Date End Date Neal Breen MD PCP - General Family Medicine 07/31/18 07/14/[address] [place] [address] documented as of this encounter
--- OUTSIDE RECORDS SUMMARY | 2021-11-30 11:47 | XMS_ITS | Encounter Summary ---
:1955 Author Organization [facility] [place] [address] Care Team Providers Name Role Phone Neal Breen MD Primary Care Provider [phone] Encounter Details Date Type Department Care Team Description 04/23/2020 Orders Only Mega Sanz, [facility] Vasquez dorcas Dow MD [facility], [address] [place] [address] [address] [place] [address] [phone] Social History Tobacco Use Types Packs/Day Years [...] as of this encounter Plan of Treatment Pending Results Name Type Priority Associated Diagnoses Date/Ti me Arianne - Colonoscopy Nursing Routine 5:17 PM EST Arianne - Anesthesia (Adult) Nursing Routine 5:17 PM EST Arianne - Patient Safety Nursing Routine 2020 5:17 PM EST documented as of this encounter Visit Diagnoses Not on filedocumented in this encounter Additional Health Concerns Infection Onset Date Last Indicated Resolved Time R/O COVID-19 04/20/2020 04/20/2020 04/23/2020 4:36 AM EST documented as of this encounter Care Teams Housekeeping Supervisor Hotel Relationship Specialty Start Date End Date Neal Breen MD PCP - General Family Medicine 07/31/18 07/14/[address] [place] [address] documented as of this encounter
--- OUTSIDE RECORDS SUMMARY | 2021-11-30 11:47 | XMS_ITS | Encounter Summary ---
:1955 Author Organization [facility] [place] [address] Care Team Providers Name Role Phone Neal Breen MD Primary Care Provider [phone] Encounter Details Date Type Department Care Team Description 04/01/2020 Travel Social History Tobacco Use Types Packs/Day [...] on filedocumented in this encounter Care Teams It Recruiter Relationship Specialty Start Date End Date Neal Breen MD PCP - General Family Medicine 07/31/18 07/14/[address] [place] [address] documented as of this encounter
--- OUTSIDE RECORDS SUMMARY | 2021-11-30 11:47 | XMS_ITS | Encounter Summary ---
:1955 Author Organization [facility] [place] [address] Care Team Providers Name Role Phone Neal Breen MD Primary Care Provider [phone] Encounter Details Date Type Department Care Team Description 07/17/2019 Travel Social History Tobacco Use Types Packs/Day [...] last month, have you been in contact Unable to assess 07/17/2019 10:24 AM EDT with someone who was confirmed or suspected to [...] filedocumented in this encounter Care Teams Corporate Compliance Manager Relationship Specialty Start Date End Date Neal Breen MD PCP - General Family Medicine 07/31/18 07/14/[address] [place] [address] documented as of this encounter
--- OUTSIDE RECORDS SUMMARY | 2021-11-30 11:47 | XMS_ITS | Encounter Summary ---
:1955 Author Organization [facility] [place] [address] Care Team Providers Name Role Phone Neal Breen MD Primary Care Provider [phone] Reason for Visit Reason Comments Follow-up 6 wk Encounter Details Date Type Department Care Team Description 05/16/2019 Office Visit [facility] Neal Breen di sorder (HCC) (Primary Dx); Network Family MD Miguel Moderate episode of recurrent major depr essive disorder (HCC); [facility] - [address] Encounter for screening colo noscopy; [address] Type 2 diabetes mellitus with hyperglyce jackelyn, without long-term current use of insulin ([facility]) [place] [phone] Social History Tobacco Use Types Packs/Day Years [...] Sign Reading Time Taken Comments Blood Pressure 110/71 05/16/2019 2:08 PM EST Pulse 68 05/16/2019 2:08 PM EST Temperature 36.1 ??C (97 ??F) 05/16/2019 2:08 PM EST Respiratory Rate 18 05/16/2019 2:08 PM EST Oxygen Saturation 95% 05/16/2019 2:08 PM EST Inhaled Oxygen Concentration - - Weight 107.5 kg (237 lb) 05/16/2019 2:08 PM EST Height 177.8 cm (5' 10) 05/16/2019 2:08 PM EST Body Mass Index 34.01 05/16/2019 2:08 PM EST documented in this encounter Functional [...] encounter Progress Notes Neal Breen MD - 05/16/2019 2:15 PM EST Chief Complaint Patient presents with ??? Follow-up 6 wk HPI Depression and mood-notes fairly stable. Notes he does not feel significantly different on the Wellbutrin. No side effects reported. We will stop S. Complains that he never receives Cologuard and has not has colon cancer screening. Would strongly prefer not to have colonoscopy Diabetes-but appropriate. Notes he is up-to-date on ophthalmology visits but we have no record of this Review of Systems Constitutional: Negative for malaise/fatigue. Musculoskeletal: Negative for falls. Psychiatric/Behavioral: Positive for depression (Stable) and memory loss. Past Medical History: Diagnosis Date ??? Acute CVA (cerebrovascular accident) (HCC) 09/16/2017 ??? Arthritis ??? 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 Diabetes mellitus (HCC) ??? Hyperlipemia ??? Hypertension ??? Ruptured appendix ??? Tachycardia Exam Vitals: 05/16/19 1408 BP: 110/71 Pulse: 68 Temp: 97 ??F (36.1 ??C) Resp: 18 SpO2: 95% PainSc: 0-Zero Body mass index is 34.01 kg/m??. Constitutional: Patient appears well-developed and well-nourished. No distress. ENT: Normal external ears and nose Pulmonary/Chest: Effort normal. No respiratory distress. Neurological: Alert. Coordination normal. Skin: Skin is warm and dry. No rash noted. Psychiatric: Patient has a normal mood and affect. Assessment 1. Mood disorder (HCC) 2. Moderate episode of recurrent major depressive disorder (HCC) 3. Encounter for screening colonoscopy Fecal Occult Blood 4. Type 2 diabetes mellitus with hyperglycemia, without long-term current use of insulin (HCC) Plan 1/2. Mood disorder with depression-increasing Wellbutrin gently to 100 mg 3 times daily. We will plan to continue slowly titrating as needed. Counseled at length 3. Patient is had significant difficulty with the ordered Cologuard. Notes he never even received itafter quite bit of waiting. He would really prefer to avoid a colonoscopy if possible. At this pointwe can I do a fecal occult blood so we can have some sort screening completed and then talk about future options going forward 4. Diabetes-requesting record of most recent ophthalmology visit. Orders Placed This Encounter Medications ??? buPROPion (WELLBUTRIN) 100 MG tablet Sig: Take 1 tablet (100 mg total) by mouth 3 times daily. Dispense: 180 tablet Refill: 5 Greater than 50% of this 25 minute visit was spent in direct [id number] counseling and coordination of care. This document was created using the aid of voice recognition [email or web address] dictation software. Electronically signed by: Neal Breen MD 05/17/19 1053 documented in this encounter Plan of Treatment Scheduled Orders Name Type Priority Associated Diagnoses Order S chedule Fecal Occult Blood Lab Routine Encounter for screenin g 1 Occurrences starting colonoscopy 05/16/2019 unti l 07/15/2020 documented as of this encounter Visit Diagnoses Diagnosis Mood disorder (HCC) - Primary Unspecified episodic mood disorder Moderate episode of recurrent major depr essive disorder (HCC) Encounter for screening colonoscopy Type 2 diabetes mellitus with hyperglyce jackelyn, without long-term current use of insulin (HCC) documented in this encounter Care Teams Wet Room Supervisor Relationship Specialty Start Date End Date Neal Breen MD PCP - General Family Medicine 07/31/18 07/14/[address] [place] [address] documented as of this encounter
--- OUTSIDE RECORDS SUMMARY | 2021-11-30 11:47 | XMS_ITS | Encounter Summary ---
:1955 Author Organization [facility] [place] [address] Care Team Providers Name Role Phone Neal Breen MD Primary Care Provider [phone] Encounter Details Date Type Department Care Team Description 04/20/2020 Travel Social History Tobacco Use Types Packs/Day [...] documented as of this encounter Care Teams Surgery Technician Relationship Specialty Start Date End Date Neal Breen MD PCP - General Family Medicine 07/31/18 07/14/[address] [place] [address] documented as of this encounter
--- OUTSIDE RECORDS SUMMARY | 2021-11-30 11:47 | XMS_ITS | Encounter Summary ---
:1955 Author Organization [facility] [place] [address] Care Team Providers Name Role Phone Neal Breen MD Primary Care Provider [phone] Encounter Details Date Type Department Care Team Description 04/23/2020 Telephone [facility] Lowery, [facility] [address] [address] [place] [address] [phone] Social History Tobacco Use Types Packs/Day Years [...] this encounter Miscellaneous Notes Telephone Encounter - Tremaine Lowery PA-C - 04/24/2020 2:45 PM EST Patient called. 2 patient identifiers confirmed. Discussed test for COVID negative. Patient voiced understanding. Electronically signed by: Tremaine Lowery PA-C 04/24/20 1447 Telephone Encounter - Tremaine Lowery PA-C - 04/23/2020 3:00 PM EST Patient called. No answer. Left message to call back. Please inform test for COVID negative. Electronically signed by: Tremaine Lowery PA-C 04/23/20 1502 documented in this encounter Plan of Treatment Not on filedocumented as of this encounter Visit Diagnoses Not on filedocumented in this encounter Additional Health Concerns Infection Onset Date Last Indicated Resolved Time R/O COVID-19 04/20/2020 04/20/2020 04/23/2020 4:36 AM EST documented as of this encounter Care Teams Talent Partner Relationship Specialty Start Date End Date Neal Breen MD PCP - General Family Medicine 07/31/18 07/14/[address] [place] [address] documented as of this encounter
--- OUTSIDE RECORDS SUMMARY | 2021-11-30 11:47 | XMS_ITS | Encounter Summary ---
:1955 Author Organization [facility] [address] Care Team Providers Name Role Phone Neal Breen MD Primary Care Provider [phone] Encounter Details Date Type Department Care Team Description 02/11/2020 Travel Social History Tobacco Use Types Packs/Day [...] been in contact with No / Unsure 02/11/2020 11:06 AM EDT someone who was confirmed or [...] on filedocumented in this encounter Care Teams Computer Technician Relationship Specialty Start Date End Date Neal Breen MD PCP - General Family Medicine 07/31/18 07/14/[address] [place] [address] documented as of this encounter
--- OUTSIDE RECORDS SUMMARY | 2021-11-30 11:47 | XMS_ITS | Encounter Summary ---
:1955 Author Organization [facility] [place] [address] Care Team Providers Name Role Phone Neal Breen MD Primary Care Provider [phone] Reason for Visit Reason Onset Date Comments Appointment 04/01/2019 Encounter Details Date Type Department Care Team Description 04/01/2019 Telephone [facility] Nicole Valencia RN Appointment Family Medicine - [address] [address] [place] [address] [phone] Social History Tobacco Use Types Packs/Day Years [...] this encounter Miscellaneous Notes Telephone Encounter - Nicole Sy RN - 04/01/2019 2:58 PM EST Spoke with patient and he has appointment on 04/04 to review findings and for f/u. Electronically signed by: Nicole Sy RN 04/01/19 1450 Telephone Encounter - Nicole Sy RN - 04/01/2019 2:56 PM EST ----- Message from Neal Breen MD sent at 04/01/2019 2:51 PM EST ----- Thanks so much for your evaluation. I am going to forward this to my clinical staff to get him an appointment with me so I can sit down and go through some of these recommendations with him in person. -Hair Liu ----- Message ----- From: Miguelito Dee, PhD Sent: 04/01/2019 2:46 PM EST To: Neal Breen MD [place], his CLIENT TECHNICAL SUPPORT ASSOCIATE reevaluation is ready for your review. Thanks for sending him, ELIESER Electronically signed by: Nicole Sy RN 04/01/19 1456 documented in this encounter Plan of Treatment Not on filedocumented as of this encounter Visit Diagnoses Not on filedocumented in this encounter Care Teams Metal Wire Coating Operator Relationship Specialty Start Date End Date Neal Breen MD PCP - General Family Medicine 07/31/18 07/14/[address] [place] [id number] documented as of this encounter
--- OUTSIDE RECORDS SUMMARY | 2021-11-30 11:47 | XMS_ITS | Encounter Summary ---
:1955 Author Organization [facility] [address] Care Team Providers Name Role Phone Neal Breen MD Primary Care Provider Encounter Details Date Type Department Care Team Description 08/07/2019 Travel Social History Tobacco Use Types Packs/Day [...] you been in contact Unable to assess 08/07/2019 11:36 AM EDT with someone who was confirmed [...] on filedocumented in this encounter Care Teams Roof Mechanic Relationship Specialty Start Date End Date Neal Breen MD PCP - General Family Medicine 07/31/18 07/14/[address] [place] [address] documented as of this encounter
--- OUTSIDE RECORDS SUMMARY | 2021-11-30 11:47 | XMS_ITS | Encounter Summary ---
:1955 Author Organization [facility] [place] [address] Care Team Providers Name Role Phone Neal Breen MD Primary Care Provider [phone] Pcp, Patient Does Not Have Primary Care Provider [phone] Reason for Visit Reason Onset Date Comments pain under shoulder blades 09/10/2019 Encounter Details Date Type Department Care Team Description 09/10/2019 Telephone [facility] Neal Breen pain un chanell shoulder Network Family MD Miguel blades Medicine [address] [address] [place], [place] [phone] (Wo rk) [address] [phone] Social History Tobacco Use Types Packs/Day Years [...] been in contact with No / Unsure 09/12/2019 11:00 AM EDT someone who was confirmed or [...] this encounter Miscellaneous Notes Telephone Encounter - Hillary Rojas - 09/10/2019 11:22 AM EDT Due to the Standard Emergency Symptoms Protocol, the patient is being transferred to [facility]. Symptom reported: sudden pain under shoulder blades and hurts when he takes a deep breath. Patient states he has an appointment on 09-12-[address] Breen Call back number if disconnected: [phone] documented in this encounter Plan of Treatment [...] documented as of this encounter Care Teams Developmental Services Worker Relationship Specialty Start Date End Date Neal Breen MD PCP - General Family Medicine 07/31/18 07/14/[address] [place] [address] Pcp, Patient Does Not Have PCP - General Family Medicine 07/15/21 documented as of this encounter
--- OUTSIDE RECORDS SUMMARY | 2021-11-30 11:47 | XMS_ITS | Encounter Summary ---
:1955 Author Organization [facility] [place] [address] Care Team Providers Name Role Phone Neal Breen MD Primary Care Provider [phone] Reason for Referral Consultation (Routine) - Closed Specialty Diagnoses / Procedures Referred By Contact Refer red To Contact Sleep Medicine Diagnoses Memory loss Daytime sleepiness Neal Breen, Lmp4 Pulmonary Sleep MD [address] [place] [address] [address] [place] [address] [address] [place] [address] Referral ID Status Reason Start Date Expiration Date Visits V isits Requested Authorized [id number] Closed Specialty 04/04/2019 04/03/2020 1 1 Services Required Reason for Visit Reason Comments Follow-up 2 mth Encounter Details Date Type Department Care Team Description 04/04/2019 Office Visit [facility] Neal Breen Memory loss (Primary Dx); Network Family Miguel MD Daytime sleepiness; Medicine - [place] [address] [facility] Mood disorder (HCC); [address] [facility] [address] Chronic pain of left knee; Drive [place], [place] Encounter for colorectal can [place] [phone] Social History Tobacco Use [...] Sign Reading Time Taken Comments Blood Pressure 129/76 04/04/2019 3:21 PM EST Pulse 56 04/04/2019 3:21 PM EST Temperature 36.8 ??C (98.3 ??F) 04/04/2019 3:21 PM EST Respiratory Rate 22 04/04/2019 3:21 PM EST Oxygen Saturation 97% 04/04/2019 3:21 PM EST Inhaled Oxygen Concentration - - Weight 108.4 kg (239 lb) 04/04/2019 3:21 PM EST Height 177.8 cm (5' 10) 04/04/2019 3:21 PM EST Body Mass Index 34.29 04/04/2019 3:21 PM EST documented in this encounter Functional [...] encounter Progress Notes Neal Breen MD - 04/04/2019 3:30 PM EST Subjective: Dario Mckeon is a 63 y.o. male. Cc: Memory loss HPI: Patient returns to discuss his neuropsychological evaluation by Dr. Dee that was performed 04/01/19- he notes continued but improved difficulties with memory. Patient reports achy pain in his hips bilaterally and his left knee that is exacerbated by walking. He endorses that previous Naprosyn prescription significantly reduced his pain and he notes would like to discuss a new prescription for Naprosyn. Review of Systems Constitutional: Negative for malaise/fatigue. Musculoskeletal: Positive for joint pain (bilateral hips , left knee). Negative for falls. Neurological: Negative for weakness. Psychiatric/Behavioral: Positive for memory loss. Past Medical History: Diagnosis Date ??? Acute CVA (cerebrovascular accident) (HCC) 09/16/2017 ??? Arthritis ??? 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 Diabetes mellitus (HCC) ??? Hyperlipemia ??? Hypertension ??? Ruptured appendix ??? Tachycardia Objective Vitals: 04/04/19 1521 BP: 129/76 Pulse: 56 Temp: 98.3 ??F (36.8 ??C) Resp: 22 SpO2: 97% PainSc: 0-Zero Physical Exam Constitutional: Patient appears well-developed and well-nourished. No distress. Obese. ENT: Normal external ears and nose. Pulmonary/Chest: Effort normal. No respiratory distress. Neurological: Alert. Mildly antalgic gait Skin: Skin is warm and dry. No pallor. Psychiatric: Patient has a normal mood and affect. Behavior is normal. Assessment: 1. Memory loss Ambulatory Referral To Sleep Clinic 2. Daytime sleepiness Ambulatory Referral To Sleep Clinic 3. Mood disorder (HCC) 4. Chronic pain of left knee 5. Encounter for colorectal cancer screening Plan: . Memory loss/ Daytime sleepiness/ Mood disorder -- Counseled patient re: his evaluation by Dr. Dee and Dr. Dee's recommendations -- Referral to sleep clinic to assess possible MARTA - counseled patient re: MARTA --Rx wellbutrin 100 mg BID, take as directed - cautioned re: possible side effects including: anxiety and palpitations - we will try to increase dose gradually but starting low -- Recommended regular low-impact aerobic exercise - recommended patient investigate possible gym membership - patient endorses that he would also like to use free weights at home for exercise 4. Left knee pain -- Rx Naprosyn 500 mg, take as directed - advised patient to stay hydrated while taking Naprosyn andto take Naprosyn PRN and with food -- Cologuard ordered - paperwork completed -- Follow-up in 6 weeks This document serves as a record of services personally performed by Neal Breen MD. It wascreated on their behalf by Yovany Zamarripa, a trained medical concierge. The creation of this record is the provider's dictation and/or activities during this visit. Electronically signed by: Casandra Rai Scribe 04/04/2019 5:43 PM Greater than 50% of this 25 minute visit was spent in direct [id number] counseling and coordination of care. I agree the documentation is accurate and complete. Electronically signed by: Neal Breen MD 04/05/2019 9:41 AM Electronically signed by: Neal Breen MD 04/05/19 0941 documented in this encounter Plan of Treatment Not on filedocumented as of this encounter Visit Diagnoses Diagnosis Memory loss - Primary Daytime sleepiness Mood disorder (HCC) Unspecified episodic mood disorder Chronic pain of left knee Encounter for colorectal cancer screenin g documented in this encounter Care Teams Editor Index Relationship Specialty Start Date End Date Neal Breen MD PCP - General Family Medicine 07/31/18 07/14/[address] [place] [address] documented as of this encounter
--- OUTSIDE RECORDS SUMMARY | 2021-11-30 11:47 | XMS_ITS | Encounter Summary ---
:1955 Author Organization [facility] [place] [address] Care Team Providers Name Role Phone Neal Breen MD Primary Care Provider [phone] Pcp, Patient Does Not Have Primary Care Provider [phone] Encounter Details Date Type Department Care Team Description 05/22/2019 Abstract [facility] Nicole Valencia RN Family Medicine [address] [address] [place] [address] [phone] Social History Tobacco Use Types Packs/Day Years [...] Name Priority Date/Time Associated Diagnosis Comme nts DIABETES EYE EXAM Routine 05/14/2019 Results for this procedure are i n the results section . documented in this encounter Results DIABETES EYE EXAM (05/14/2019) Analysis Performed At Patho logist Time Signature Diabetes Performed Eye Exam Historical Provider MD HEALTH MAINTENANCE documented in this encounter Visit Diagnoses Not on filedocumented in this encounter Additional Health Concerns Infection Onset Date Last Indicated Resolved Time R/O COVID-19 04/20/2020 04/20/2020 04/20/2020 4:41 PM EST R/O COVID-19 04/20/2020 04/20/2020 04/23/2020 4:36 AM EST R/O COVID-19;Influenza 06/28/2020 06/28/2020 3:28 PM EDT R/O COVID-19 11/23/2020 11/23/2020 11/24/2020 7:42 PM EDT documented as of this encounter Care Teams Wood Lather Relationship Specialty Start Date End Date Neal Breen MD PCP - General Family Medicine 07/31/18 07/14/[address] [place] [address] Pcp, Patient Does Not Have PCP - General Family Medicine 07/15/21 documented as of this encounter
--- OUTSIDE RECORDS SUMMARY | 2021-11-30 11:47 | XMS_ITS | Encounter Summary ---
:1955 Author Organization [facility] [place] [address] Care Team Providers Name Role Phone Neal Breen MD Primary Care Provider [phone] Reason for Referral (Routine) - Closed Specialty Diagnoses / Procedures Referred By Contact Refer red To Contact Diagnoses At risk for obstructive sleep apnea Tr Martinez PA-C Procedures [place], [place] [address] Referral ID Status Reason Start Date Expiration Date Visits Requ ested Visits Authorized [id number] Closed 04/18/2019 04/17/2020 1 1 Reason for Visit Reason Comments New Patient Memory loss and daytime slee piness Consultation (Routine) - Closed Specialty Diagnoses / Procedures Referred By Contact Refer red To Contact Sleep Medicine Diagnoses Memory loss Daytime sleepiness Neal Breen, Lmp4 Pulmonary Sleep MD [address] [place] [place] [address] [address] [place] [address] Referral ID Status Reason Start Date Expiration Date Visits V isits Requested Authorized [id number] Closed Specialty 04/04/2019 04/03/2020 1 1 Services Required Encounter Details Date Type Department Care Team Description 04/18/2019 Initial consult Pulmonary Sleep - Tr Martinez At [facility] for obstructive sleep apnea (Primary Dx); Jennifer Mendez PA-C Memory loss; 4 [facility] Daytime sleepiness; [place] [place] [address] Snoring; [id number] LYDIA MARTINEZ, Non-restorative sleep [phone] [place] [id number] Social History Tobacco Use Types Packs/Day [...] Sign Reading Time Taken Comments Blood Pressure 111/68 04/18/2019 10:21 AM EST Pulse 54 04/18/2019 10:21 AM EST Temperature - - Respiratory Rate 16 04/18/2019 10:21 AM EST Oxygen Saturation 97% 04/18/2019 10:21 AM room air EST Inhaled Oxygen Concentration - - Weight 109.6 kg (241 lb 9.6 oz) 04/18/2019 10:21 AM EST Height 177.8 cm (5' 10) 04/18/2019 10:21 AM EST Body Mass Index 34.67 04/18/2019 10:21 AM EST documented in this encounter Functional [...] as of this encounter Patient Instructions Patient InstructionsTr Martinez PA-C - 04/18/2019 10:20 AM EST Healthy Sleep Habits (to prevent or improve insomnia) Online treatment options (cognitive behavioral therapy for insomnia, or CBT-I): -[employer] Temperature [employer]s (TM) (very popular program; commercial; fee-based) -Sleepio (TM) (fee-based) Mobile benoit-based CBT-I: -[facility]: CBT-i Statement Request Clerk (FREE benoit download for mobile smartphone: Available to veterans and non-veterans) -REST (TM) -Night Owl-Sleep Statement Request Clerk (approximately ten dollars in 2018) Office-based CBT-I: Includes [facility] Neuropsychology clinic. Healthy Sleep Habits: 1) Be aware of mediations and supplements that can interfere with sleep: Anticholinergics (bowel, bladder) Antidepressants Blood pressure medications Chemotherapy Bronchodilators (asthma medications) Steroids Decongestants (cold medications) Diuretics (fluid pills) Histamine-2 blockers (stomach medicines) Nutritional supplements (herbs, vitamines) Weight loss supplements Ma Shi (ephedra) Caffeine containing supplements (guarana, yerba mate, green/black tea, 5 Hour Energy (TM) 2) The most common cause of new insomnia is a change in your daily routine (e.g, traveling, work hour change, disruption of eating/exercise/leisure/relationships). 3) Good sleep hygiene: 1. Go to bed around the same time each evening, but especially get up at the same time (preferably by alarm clock) each morning. 2. Get regular exercise each day, preferably in the morning. There is good evidence that regular exercise improves restful sleep. This includes stretching and aerobic exercise. Walking, yoga, and swimming are examples. See your primary physician for a medically-supervised exercise plan, with exerciseno later than four hours prior to bedtime; 3. Get regular exposure to outdoor bright light for at least 15 minutes, in the general production worker and late afternoon, or only one of these times as may be directed by your doctor for certain sleep conditions. 4. Keep the temperature in your bedroom comfortable, or on the cool side. 5. Keep the bedroom quiet when sleeping. 6. Keep the bedroom dark to facilitate sleep (this increases production of melatonin, the sleep hormone). Check the bedroom environment for light, noise, temperature, or other factors which could disrupt sleep. 7. Use the bed and bedroom for sleep and sex (not problem-solving, work, worry, arguing, or as an entertainment room). 8. Turn alarm clock away after you set it (no clock-watching). 9. May read under soft light. Avoid back-lit computers or Ipads in bed. Books and paper-white screen [employer]-type devices are permitted. 10. Never fall asleep with the TV on. Watch only relaxing programming around bedtime. 11. Use relaxation at bedtime (e.g., meditation, soothing recording, warm milk, warm bath 90 minutes before bedtime, etc.) Consider relaxation exercises such as deep breathing or progressive relaxation. Develop a bedtime ritual. 12. Keep hands and feet warm, with warm socks and/or mittens or gloves if necessary. 13. If you tend to worry in bed, one helpful intervention is to write down a list of concerns nightly before bed; and then to put them out of mind by discarding the list, after you confirm that there is nothing more he/she can do about them today. Another option: Write in a bedtime journal book. 14. Goal is seven to eight hours sleep per night, but your should leave the bedroom/bed for the most comfortable room in your home any time you do not feel like sleeping). 15. Limit naps to none or only one, less than one hour daily, and no later than mid-afternoon; 16. Avoid eating within four hours before bed; avoid caffeine for six hours before bedtime (and no more than two total caffeinated beverages during the day; avoid alcohol (causes cvxojw-wv-[id number] awakenings); avoid tobacco. 17. For trouble arising in the morning and late going to sleep at night without much awakening in between, bright light in the morning can be helpful ([employer] 10,000 lux light for thirty minutes; others include [employer] Rise and Shine(http://www.Haier.com/hftux-xqholzo-fspmb/kfxq-ivlem-dffesxu),[facility]ly [facility], [facility] 10,000 lux light). documented in this encounter Progress Notes Tr Martinez PA-C - 04/18/2019 10:20 AM EST [facility] New Patient Consultation Name: Dario Mckeon : 1955 Primary Care Physician: Neal Breen MD Referring Provider: Neal Breen MD Thank you for the consultation request regarding . Below is the documentation for today's visit. Chief Complaint: Chief Complaint Patient presents with ??? New Patient Memory loss and daytime sleepiness History of Present Illness and Sleep Review of Systems: 63 y.o. male presents to Sleep Clinic for consultation regarding suspected sleep apnea. Past medicalhistory is significant for Obesity (BMI: 34.7), HTN, HLD, Type II DM, Depression, Hx of SVT, Hx of Ischemic TIA/CVA and Hx of Intraparenchymal Hemorrhage (Amyloid Angiopathy). Patient is accompanied by spouse (Johanna Candelaria) today in clinic who contributes to history. Mr. Mckeon presents to clinic today reporting he was referred by Psychologist who recently completed a Neuropsychological evaluation due to his ongoing memory concerns. Review of records notable for patient reporting EDS symptoms and snoring. He and spouse report long standing history of snoring reporting all my adult life. Notes over the past few years (prior to recent Neurological Hx) his sleep has been non-restorative. Denies snorting/choking or gasping in his sleep. Spouse denies witnessing apneic episodes. Denies prior sleep evaluation. FMHx positive for snoring (Mother) but denies formal Diagnosis of OSAor other Sleep Related Disorders. Sleep ROS: Positive for Obstructive Sleep Apnea: is not rested upon awakening, middle of night waking, restless sleep and snores Hypersomnia: daytime sleepiness Parasomnias: none Restless Legs: No Other: none He denies nightmares, night terrors, hypersomnia, uses sleep for migraine relief, bruxism, somniloquy, nocturnal eating, cataplexy, hypnogogic/hypnopompic hallucinations and sleep paralysis. Motor vehicle crashes due to sleepiness: No Near misses while driving due to excessive day time sleepiness: No He goes to sleep at 2330 on weekdays and on weekends. He awakens at 0600 on weekdays and on weekends. He falls asleep in 30+ minutes after watching TV. He often will sleep with eye cover and ear plugs due to light and noise from TV. He wakes up 0-1x per night and falls back asleep in less than 5 minutes. Patient takes or has tried nothing to help with sleep. Symptoms of nasal congestion / allergic rhinitis: No Symptoms of acid reflux: No Patient has had previous sleep study: No Caffeine: 16oz of soda/day Nicotine: Former smoker Alcohol: Rare (beer) Pain medications: Denies TV/electronics: TV in bed Exercise: Denies formal routine Patient's sleep study questionnaire responses: SNC PAC OR DO I SNORE DO I SNORE 50 (1=YES AND 0=NO): Does the patient have a C-PAP?: No MARTA referral made?: No D- Disease - Have you been diagnosed with a-fib, stroke, or hypertension?: 1 O- Observed Apnea - Has anyone Observed you Stop Breathing or Choking/Gasping during your sleep?: 0 I- Insomnia - Do you wake up multiple times during the night?: 0 S- Snore - Do you snore?: 1 N- For males - Is your neck circumference greater than 17 inches, For females - Is your neck circumference greater than 16 inches?: 0 O- Obesity - Is your BMI greater than 32 ?: 1 R - R you male?: 1 E- Do you have excessive daytime sleepiness or do you feel tired during the day?: 0 50- Are you age 50 or older?: 1 MARTA - at Risk: Yes if equal to 4, High Risk if equal to or greater than 6. (SLEEP CONSULT Main number [phone] or [phone]: 5 Warba Sleepiness Scale 04/18/2019 Sitting and reading 3 Watching TV 2 Sitting, inactive in a public place (e.g. a theatre or a meeting) 0 As a passenger in a car for an hour without a break 2 Lying down to rest in the afternoon when circumstances permit 2 Sitting and talking to someone 0 Sitting quietly after a lunch without alcohol 1 In a car, while stopped for a few minutes in traffic 0 Total score 10 The Warba Sleepiness Scale is used to determine the [...] = high chance of dozing or sleeping Insomnia index: 12/12 Depression score:10 DO I SNORE 50 (1=Yes AND 0=No) D- Disease - Have you been diagnosed with a-fib, stroke, or hypertension? 1 - Yes O- Observed Apnea - Has anyone observed you stop breathing or choking/gasping during your sleep? 0 -No I- Insomnia - Do you wake up multiple times during the night? 0 - No S- Snore - Do you snore? 1 - Yes N- For males - Is your neck circumference greater than 17 inches, For females - Is your neck circumference greater than 16 inches? 1 - Yes O- Obesity - Is your BMI greater than 32 ? 1 - Yes R - Are you male? 1 - Yes E- Do you have excessive daytime sleepiness or do you feel tired during the day? 1 - Yes 50- Are you age 50 or older? 1 - Yes Total: 7 - patient is high risk for MARTA - (SLEEP CONSULT Main number [phone]) Review of Systems: A 14-point ROS was performed with pertinent positives/negatives noted in the HPI. The remainder of the ROS are negative. Past History: Past Medical History: Diagnosis Date ??? Acute CVA (cerebrovascular accident) (HCC) 09/16/2017 ??? Arthritis ??? 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 Diabetes mellitus (HCC) ??? Hyperlipemia ??? Hypertension ??? Ruptured appendix ??? Tachycardia Family History [...] ??? Financial resource strain: None ??? Food insecurity: Worry: None Inability: None ??? Transportation needs: Medical: None Non-medical: None Tobacco Use ??? Smoking status: Former Smoker Types: Cigarettes Last attempt to quit: 04/16/1989 Years since quittin.0 ??? Smokeless tobacco: Never Used Substance and Sexual Activity ??? Alcohol use: Yes Comment: occasional beer ??? Drug use: No ??? Sexual activity: None Lifestyle ??? Physical activity: Days per week: None Minutes per session: None ??? Stress: None Relationships ??? Social connections: Talks on phone: None Gets together: None Attends nondenominational service: None Active member of club or organization: None Attends meetings of clubs or organizations: None Relationship status: None Other Topics Concern ??? None Social History Narrative ??? None Medications: Current Outpatient Medications: ??? ascorbic acid, vitamin C, (VITAMIN C) 500 MG tablet, Take 500 mg by mouth every morning., Disp: , Rfl: ??? atorvastatin (LIPITOR) 20 MG tablet, Take 20 mg by mouth daily., Disp: , Rfl: ??? buPROPion (WELLBUTRIN) 100 MG tablet, Take 1 tablet (100 mg total) by mouth 2 times daily., Disp: 180 tablet, Rfl: 5 ??? donepezil (ARICEPT) 10 MG tablet, Take 10 mg by mouth daily., Disp: , Rfl: ??? flecainide (TAMBOCOR) 100 MG tablet, Take 1 tablet (100 mg total) by mouth 2 times daily., Disp:180 tablet, Rfl: 3 ??? memantine 28 mg CSpX, Take 28 mg by mouth daily., Disp: , Rfl: ??? metFORMIN ER (GLUCOPHAGE-XR) 500 MG extended release tablet, Take 1 tablet (500 mg total) by mouth 2 times daily with meals., Disp: 60 tablet, Rfl: 5 ??? metoPROLOL succinate (TOPROL-XL) 25 MG 24 hr tablet, TAKE 1 TABLET BY MOUTH ONCE DAILY, Disp: 90tablet, Rfl: 5 ??? multivitamin capsule, Take 1 capsule by mouth daily., Disp: , Rfl: ??? naproxen (NAPROSYN) 500 MG tablet, Take 1 tablet (500 mg total) by mouth 2 times daily. PRN, Disp: 180 tablet, Rfl: 5 ??? ketoconazole (NIZORAL) 2 % shampoo, Use to wash affected area of back daily for 2 weeks, then use once weekly, Disp: , Rfl: Allergies: Morphine; Sulfamethoxazole; Sulfasalazine; Ciprofloxacin; Codeine phosphate; and Pollen extracts Physical Exam: Vitals: 04/18/19 1021 BP: 111/68 Pulse: 54 Resp: 16 SpO2: 97% Comment: room air Height: 1.778 m (5' 10) Weight: 109.6 kg (241 lb 9.6 oz) BMI (Calculated): 34.7 Neck circumference is 18 inches. Physical Exam Vitals signs and nursing note reviewed. Constitutional: General: He is not in acute distress. Appearance: Normal appearance. He is obese. HENT: Head: Normocephalic and atraumatic. Comments: Mallampati: III Nose: Septal deviation (to the left) present. Mouth/Throat: Mouth: Mucous membranes are moist. Pharynx: Oropharynx is clear. No posterior oropharyngeal erythema. Eyes: General: No scleral icterus. Extraocular Movements: Extraocular movements intact. Pupils: Pupils are equal, round, and reactive to light. Neck: Musculoskeletal: Normal range of motion and neck supple. Cardiovascular: Rate and Rhythm: Normal rate and regular rhythm. Heart sounds: Normal heart sounds. Pulmonary: Effort: Pulmonary effort is normal. Breath sounds: Normal breath sounds. Musculoskeletal: Normal range of motion. Right lower leg: Edema (trace) present. Left lower leg: Edema (trace) present. Lymphadenopathy: Cervical: No cervical adenopathy. Skin: General: Skin is warm and dry. Nails: There is no clubbing. Neurological: General: No focal deficit present. Mental Status: He is alert and oriented to person, place, and time. Psychiatric: Mood and Affect: Mood normal. Behavior: Behavior normal. Diagnostic Review: I personally reviewed the following: Medical records and office notes detailing: Pertinent Labs Lab Results Component Value Date NA 141 01/12/2019 K 3.7 01/12/2019 CL 108 01/12/2019 BUN 16.0 01/12/2019 GLU 121 (H) 01/12/2019 CREATININE 1.06 03/25/2019 CALCIUM 9.2 01/12/2019 PROT 6.6 01/03/2019 ALBUMIN 3.8 01/03/2019 BILITOT 0.9 01/03/2019 ALKPHOS 69 01/03/2019 AST 23 01/03/2019 ALT 22 01/03/2019 Lab Results Component Value Date WBC 6.9 01/12/2019 HGB 13.1 (L) 01/12/2019 HCT 39.9 (L) 01/12/2019 MCV 87.7 01/12/2019 PLT 268 01/12/2019 Lab Results Component Value Date MG 2.1 11/12/2016 No results found for: B12B No results found for: PH, PCO2, PO2, HCO3, BDF, O2S No results found for: PHVEN, BIB9GSG, PO2VEN, UZE1BGM, J5EFTFFF, BEVEN No results found for: UDSCM, UAMP, UBARB, UBENZ, COCAINESCRN, UOPIA, UCAN Lab Results Component Value Date CO2 24 01/12/2019 CO2 25 01/03/2019 CO2 23 01/03/2019 Last PFT Results: No results found for: FVCPOST No results found for: VHW2XKTD No results found for: [id number] No results found for: [id number] Last Echo Result: Results for orders placed or performed during the hospital encounter of 09/16/17 CUS TTE SURFACE COMPLETE ECHO ADULT Result Value Ref Range Left Ventricular EF 55 % No results found for this or any previous visit. Sleep Study Data: - No prior sleep study has been conducted Assessment/Plan: At risk for obstructive sleep apnea - Split Night Memory loss - Ambulatory Referral To Sleep Clinic Daytime sleepiness - Ambulatory Referral To Sleep Clinic Snoring Non-restorative sleep 63 y/o male who is seen today in further evaluation of non-restorative sleep in setting of recent CVAs. His history coupled with his risk factors make him high risk for MARTA. His progression of symptomscould in part due to untreated sleep disordered breathing or in part due to mood/depression or post-stroke fatigue. It is recommended that patient complete an attended diagnostic sleep study to evaluate for MARTA but also CSA in setting of multiple recent neurovascular events. If patient is unable to complete split protocol during initial study it was discussed that he would need to return for a formaltitration. Discussed impact treating sleep-disordered breathing could have on his symptoms by mechanism of improved nocturnal oxygenation (if there is associated nocturnal hypoxia) and improved sleep consolidation. Also discussed potential improvement of HTN control. ?? Patient will be scheduled for: Split Night PSG ?? To consider Split PSG ?? Counseled on sleep hygiene (screen time) ?? Counseled on weight loss / maintenance of healthy weight ?? Counseled NOT to drive if/when sleepy ?? RTC 3 months The natural history, progression and prognosis of sleep apnea, treatment with PAP and alternative treatment strategies were discussed. The patient was also educated regarding the intermediate card tender cardiovascular benefits of treating sleep apnea, including improved blood pressure control, reduction in UT and reduction in stroke risk as well as other potential benefits of treatment, such as improved glycemic control, facilitation of weight loss, improved energy during the day, and improved sleep quality. PQRS Sleep Elevated blood pressure discussed Medication options, side effects, and interactions with other medications discussed Keep up to date on adult immunizations, especially influenza and pneumonia. Return in about 3 months (around 07/18/2019). Thank you for the opportunity to provide consultation for your patient. If I can be of further assistance please do not hesitate to contact my office. Office: p [phone] f [phone] Electronically signed by: Tr Martinez PA-C 04/18/19 1306 documented in this encounter Plan of Treatment Not on filedocumented as of this encounter Results Split Night (05/31/2019 3:25 PM EST) Narrative This result has an attachment that is no t available. Tr Martinez PA-C SLEEP CENTER ORDERABLES Performing Organization Address City/State/ZIP Code Phon e Number [facility] documented in this encounter Visit Diagnoses Diagnosis At risk for obstructive sleep apnea - Pr imary Memory loss Daytime sleepiness Snoring Other dyspnea and respiratory abnormalit y Non-restorative sleep documented in this encounter Care Teams Bonding Molder Relationship Specialty Start Date End Date Neal Breen MD PCP - General Family Medicine 07/31/18 07/14/[address] [place] [address] documented as of this encounter
--- OUTSIDE RECORDS SUMMARY | 2021-11-30 11:47 | XMS_ITS | Encounter Summary ---
:1955 Author Organization [facility] [place] [address] Care Team Providers Name Role Phone Neal Breen MD Primary Care Provider [phone] Reason for Visit Reason Comments Diabetes Encounter Details Date Type Department Care Team Description 03/16/2020 Office Visit [facility] Neal Breen Type 2 diabetes mellitus with hyperglycemia, without long-term current use of insulin (HCC) (Primary Dx); Network Family Miguel MD Need for immunization against influenza; [facility] [address] [facility] Colonoscopy refused; [address] [place] [address] Dr TOPETE Encounter for colorectal cancer screenin g; [place], [place] Mood disorder ([facility]) [id number] [phone] Social History Tobacco Use Types Packs/Day Years [...] Sign Reading Time Taken Comments Blood Pressure 119/75 03/16/2020 11:17 AM EST Pulse 52 03/16/2020 11:17 AM EST Temperature 36.7 ??C (98 ??F) 03/16/2020 11:17 AM EST Respiratory Rate 20 03/16/2020 11:17 AM EST Oxygen Saturation 98% 03/16/2020 11:17 AM EST Inhaled Oxygen Concentration - - Weight 111.6 kg (246 lb) 03/16/2020 11:17 AM EST Height 177.8 cm (5' 10) 03/16/2020 11:17 AM EST Body Mass Index 35.3 03/16/2020 11:17 AM EST documented in this encounter Functional [...] documented as of this encounter Progress Notes Kim Leslie CMA - 03/16/2020 11:15 AM EST Flu vaccine given. No redness or swelling noted at injection site. Electronically signed by: Kim Leslie CMA 03/16/2020 11:22 AM Electronically signed by: Neal Breen MD 03/16/20 1244 Neal Breen MD - 03/16/2020 11:15 AM EST Chief Complaint Patient presents with ??? Diabetes HPI DM2 has been a problem for years. Severity today is well controlled and last a1c level was Lab Results Component Value Date HBA1C 5.5 09/12/2019 - is improved with metformin - not missing any doses - no side effects reported Overdue for colon cancer screening. Notes his cologuard didn't get sent in - got pushed to the side at home during the pandemic Mood Ok. Notes he went back to 100 mg bupropion and it helps better. 150 mg SR bid made him angry per his report. Review of Systems Constitutional: Negative for fever and malaise/fatigue. Musculoskeletal: Negative for falls. Psychiatric/Behavioral: Negative for depression. The patient is not nervous/anxious. Past Medical History: Diagnosis Date ??? Acute CVA (cerebrovascular accident) (HCC) 09/16/2017 ??? Arthritis ??? 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 Diabetes mellitus (HCC) ??? Hyperlipemia ??? Hypertension ??? Ruptured appendix ??? Tachycardia Exam Vitals: 03/16/20 1117 BP: 119/75 Pulse: 52 Temp: 98 ??F (36.7 ??C) Resp: 20 SpO2: 98% PainSc: 0-Zero Body mass index is 35.3 kg/m??. Constitutional: Patient appears well-developed and well-nourished. No distress. Obese ENT: Normal external ears without obvious lesion or discharge, nares patent Eyes: Conjunctivae are normal. Right eye exhibits no discharge. Left eye exhibits no discharge. No scleral icterus. Pulmonary/Chest: Effort normal. No respiratory distress. Neurological: Alert. Coordination normal. Skin: No rash noted. Not diaphoretic. Psychiatric: Patient has a normal mood and affect. Behavior is normal. Assessment 1. Type 2 diabetes mellitus with hyperglycemia, without long-term current use of insulin (HCC) Hemoglobin A1C 2. Need for immunization against influenza 3. Colonoscopy refused 4. Encounter for colorectal cancer screening 5. Mood disorder (HCC) Plan 1. Dm2 - chronic, stable. A1c today. Cont metformin, refills provided 2. Flu shot 3/4. Pt refuses colonoscopy. Did order a new cologuard today 5. Mood disorder - stable. Rx sent for 100 mg Bupropion SR as below since he feels better on lower dose. Orders Placed This Encounter Medications ??? metFORMIN ER (GLUCOPHAGE-XR) 500 MG extended release tablet Sig: TAKE 1 TABLET(500 MG) BY MOUTH TWICE DAILY WITH MEALS Dispense: 180 tablet Refill: 5 ??? buPROPion SR (WELLBUTRIN SR) 100 MG 12 hr tablet Sig: Take 1 tablet (100 mg total) by mouth 2 times daily. Dispense: 180 tablet Refill: 5 Electronically signed by: Neal Breen MD 03/16/20 1244 Kim Leslie CMA - 03/16/2020 11:15 AM EST Cologurard form and insurance information Faxed. Electronically signed by: Kim Leslie CMA 03/16/2020 12:53 PM Electronically signed by: Kim Leslie CMA 03/16/20 1253 documented in this encounter Plan of Treatment Not on filedocumented as of this encounter Results Hemoglobin A1C (03/16/2020 11:39 AM EST) P athologist Signature HEMOGLOBIN A1C 5.5 <5.7 % 03/16/2020 [facility] 6:32 PM EST [facility] Comment: Normal: ? Less than 5.7% Prediabetes: ??5.7% to 6.4% Diabetes: ? Greater than 6.4% eAG 111 MG/DL 03/16/2020 6:32 PM EST [facility] eAG Comment 03/16/2020 6:32 PM EST [facility] Comment: The [place] [employer] on has supported the use [...] Organization Address City/State/ZIP Code Phon e Number [facility] [id number] [place] [address] [facility] documented in this encounter Visit Diagnoses Diagnosis Type 2 diabetes mellitus with hyperglyce jackelyn, without long-term current use of insulin (HCC) - Primary Need for immunization against influenza Need for prophylactic vaccination and in oculation against influenza Colonoscopy refused Encounter for colorectal cancer screenin g Mood disorder (HCC) Unspecified episodic mood disorder documented in this encounter Care Teams Electrical Superintendent Relationship Specialty Start Date End Date Neal Breen MD PCP - General Family Medicine 07/31/18 07/14/[address] [place] [id number] documented as of this encounter
--- OUTSIDE RECORDS SUMMARY | 2021-11-30 11:47 | XMS_ITS | Encounter Summary ---
:1955 Author Organization [facility] [place] [address] Care Team Providers Name Role Phone Neal Breen MD Primary Care Provider [phone] Encounter Details Date Type Department Care Team Description 08/05/2019 Orders Only Cardiology - Heather Johnsonventricu lar Jennifer Wells, DEVIKA tachycardia (HCC) [address] [facility] (Primary Dx) [place], [place] [address] [address] [place], [place] [phone] Social History Tobacco Use Types Packs/Day Years [...] Results EKG - PERFORMED DURING CLINIC VISIT (08/12/2019 11:16 AM EDT) Specimen Anatomical Collection Method Collection Time Receive d Time (Source) Location / / Volume Laterality 08/12/2019 11:16 08/12/2019 3:09 AM EDT PM EDT Narrative MUSE - 08/12/2019 3:09 PM EDT Ventricular Rate ? 55 ?BPM ? Atrial Rate ?55 ?BPM ? P-R Interval ? 212 ? ms ? QRS Duration ? 114 ? ms ? Q-T Interval ? 468 ? ms ? QTC ?447 ? ms ? P [place] ? 16 ?degrees ? R [place] ? -53 ? degrees ? T [place] ? 20 ?degrees ? Sinus bradycardia First degree A-V block Left axis deviation Pulmonary disease When compared with ECG of 01-FEB-2019 11 :17, No significant change was found Confirmed by DR. FUNMILAYO EASON ([id number]) on 08/12/2019 3:09:42 PM Procedure Note Funmilayo Eason MD - 08/12/2019For matting of this note might be different from the original. Ventricular Rate 55 BPM Atrial Rate 55 BPM P-R Interval 212 ms QRS Duration 114 ms Q-T Interval 468 ms QTC 447 ms P [place] 16 degrees R [place] -53 degrees T [place] 20 degrees Sinus bradycardia First degree A-V block Left axis deviation Pulmonary disease When compared with ECG of 01-FEB-2019 11 :17, No significant change was found Confirmed by DR. FUNMILAYO EASON ([id number]) on 08/12/2019 3:09:42 PM Funmilayo Eason MD ECG SPECIAL Performing Organization Address City/State/ZIP Code Phon e Number MUSE documented in this encounter Visit Diagnoses Diagnosis Supraventricular tachycardia (HCC) - Velma andres Other specified cardiac dysrhythmias Essential hypertension - Primary Unspecified essential hypertension Supraventricular tachycardia (HCC) Other specified cardiac dysrhythmias documented in this encounter Care Teams Senior Gamemaster Relationship Specialty Start Date End Date Neal Breen MD PCP - General Family Medicine 07/31/18 07/14/[address] [place], [place] [id number] documented as of this encounter
--- OUTSIDE RECORDS SUMMARY | 2021-11-30 11:47 | XMS_ITS | Encounter Summary ---
:1955 Author Organization [facility] [place] [address] Care Team Providers Name Role Phone Neal Breen MD Primary Care Provider [phone] Encounter Details Date Type Department Care Team Description 11/07/2019 Travel Social History Tobacco Use Types Packs/Day [...] been in contact with No / Unsure 11/07/2019 8:40 AM EDT someone who was confirmed or [...] on filedocumented in this encounter Care Teams Rural Mail Carrier Relationship Specialty Start Date End Date Neal Breen MD PCP - General Family Medicine 07/31/18 07/14/[address] [place] [address] documented as of this encounter
--- OUTSIDE RECORDS SUMMARY | 2021-11-30 11:47 | XMS_ITS | Encounter Summary ---
:1955 Author Organization [facility] [place] [address] Care Team Providers Name Role Phone Neal Breen MD Primary Care Provider Encounter Details Date Type Department Care Team Description 02/11/2020 Office Visit Cardiology - Javi Gonsales Essential hy pertension, benign (Primary Dx); Jennifer Field PA-C Supraventricular tachycardia (HCC) 14 [facility] [address] [place], [place] [address] [address] [place], [place] [phone] Social History Tobacco Use Types Packs/Day [...] Sign Reading Time Taken Comments Blood Pressure 121/80 02/11/2020 1:28 PM EDT Pulse 60 02/11/2020 1:28 PM EDT Temperature 36 ??C (96.8 ??F) 02/11/2020 1:28 PM EDT Respiratory Rate - - Oxygen Saturation 98% 02/11/2020 1:28 PM EDT Inhaled Oxygen Concentration - - Weight 111.6 kg (246 lb) 02/11/2020 1:28 PM EDT Height 177.8 cm (5' 10) 02/11/2020 1:28 PM EDT Body Mass Index 35.3 02/11/2020 1:28 PM EDT documented in this encounter Functional [...] documented as of this encounter Progress Notes Javi Gonsales PA-C - 02/11/2020 11:15 AM EDT Problem List: 1. SVT- [...] tablet 3 ??? buPROPion SR (WELLBUTRIN SR) 150 MG 12 hr tablet Take 1 tablet (150 mg total) by mouth 2 times daily. 180 tablet 5 ??? donepezil (ARICEPT) 10 MG tablet Take 10 mg by mouth daily. ??? flecainide (TAMBOCOR) 100 MG tablet Take 1 tablet (100 mg total) by mouth 2 times daily. 180 tablet 3 ??? fluticasone propionate (FLONASE) 50 mcg/actuation nasal spray 2 sprays by Each Nare route 2 times daily. 16 g 2 ??? memantine 28 mg CSpX Take 28 mg by mouth daily. ??? metFORMIN ER (GLUCOPHAGE-XR) 500 MG extended release tablet TAKE 1 TABLET(500 MG) BY MOUTH TWICEDAILY WITH MEALS 60 tablet 5 ??? metoPROLOL succinate (TOPROL-XL) 25 MG 24 hr tablet TAKE 1 TABLET BY MOUTH ONCE DAILY 90 tablet 5 ??? metoPROLOL succinate (TOPROL-XL) 50 MG 24 hr tablet TAKE 1 TABLET BY MOUTH ONCE DAILY 180 tablet5 ??? multivitamin capsule Take 1 capsule by mouth daily. ??? naproxen (NAPROSYN) 500 MG tablet Take 1 tablet (500 mg total) by mouth 2 times daily. PRN 180 tablet 5 ??? ascorbic acid, vitamin C, (VITAMIN C) 500 MG tablet Take 500 mg by mouth every morning. ??? clobetasoL (TEMOVATE) 0.05 % cream Apply to affected area 2 times per day as needed. 60 g 0 No current facility-administered medications on file prior to visit. Interval History: Mr. Mckeon returns for SVT. He has had no recurrent SVT symptoms. Patient denies palpitations, lightheadedness or syncope. He remains active - hunts regularly without chest pain, dyspnea. He has no pedal edema or orthopnea. He is compliant with meds. He admits to recent weight gain due to increased snack at home in the setting of COVID. No other concerns today. Physical Exam: BP 121/80 (Site: Right arm, Position: Sitting, BP Cuff Size: Large) Pulse 60 Temp 96.8 ??F (36 ??C) (Skin) Ht 1.778 m (5' 10) Wt 111.6 kg (246 lb) SpO2 98% BMI 35.30 kg/m?? HEENT: Mucous membranes moist, sclerae anicteric Neck: no JVP elevation, no bruits bilaterally Resp: clear to auscultation bilaterally Cardiac: Regular rate and rhythm, no murmurs or gallops GI: Soft, nontender, nondistended, normal bowel sounds EXT: No clubbing, cyanosis, edema, palpable DP 1+ bilaterally Psych: Alert and oriented x3, normal affect Neuro: nonfocal Data Reviewed: EKG today -- NSR w/ adequate intervals Assessment and Plan: 1. [...] high lifetime CV risk. Negative stress test 2015. Secondary prevention: BB, statin. Plavix discontinued s/p spontaneous brain hemorrhage. Disposition: 6 month f/u I contributed to the content of this note. Electronically signed by: TAQUERIA Whelan Student 02/11/2020 11:46 AM Electronically signed by: TAQUERIA Whelan Student 02/11/20 1201 A student assisted with documenting this service. I saw and evaluated the patient and reviewed all information documented by the student and made modifications to such information, when appropriate. Electronically signed by: Javi Gonsales PA-C 02/11/20 2561 Rubi Handley CMA - 02/11/2020 11:15 AM EDT I performed an EKG during today's office visit, all other assessments were completed by the provider. Electronically signed by: Rubi Handley CMA 02/11/20 4093 documented in this encounter Miscellaneous Notes Medical/NATACHA Student - TAQUERIA Whelan Student - 02/11/2020 11:15 AM EDT Problem List: 1. SVT- R atrial foci - s/p AFL ablation but unsuccessful AT ablation A. Controlled on flecainide B. Negative nuclear perfusion scan 04/24/2015 2. DM2 3. OA s/p TKA 4. 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 ascorbic acid, vitamin C, (VITAMIN C) 500 MG tablet Take 500 mg by mouth every morning. ??? atorvastatin (LIPITOR) 20 MG tablet TAKE 1 TABLET(20 MG) BY MOUTH DAILY 90 tablet 3 ??? buPROPion SR (WELLBUTRIN SR) 150 MG 12 hr tablet Take 1 tablet (150 mg total) by mouth 2 times daily. 180 tablet 5 ??? clobetasoL (TEMOVATE) 0.05 % cream Apply to affected area 2 times per day as needed. 60 g 0 ??? donepezil (ARICEPT) 10 MG tablet Take 10 mg by mouth daily. ??? flecainide (TAMBOCOR) 100 MG tablet Take 1 tablet (100 mg total) by mouth 2 times daily. 180 tablet 3 ??? fluticasone propionate (FLONASE) 50 mcg/actuation nasal spray 2 sprays by Each Nare route 2 times daily. 16 g 2 ??? memantine 28 mg CSpX Take 28 mg by mouth daily. ??? metFORMIN ER (GLUCOPHAGE-XR) 500 MG extended release tablet TAKE 1 TABLET(500 MG) BY MOUTH TWICEDAILY WITH MEALS 60 tablet 5 ??? metoPROLOL succinate (TOPROL-XL) 25 MG 24 hr tablet TAKE 1 TABLET BY MOUTH ONCE DAILY 90 tablet 5 ??? metoPROLOL succinate (TOPROL-XL) 50 MG 24 hr tablet TAKE 1 TABLET BY MOUTH ONCE DAILY 180 tablet5 ??? multivitamin capsule Take 1 capsule by mouth daily. ??? naproxen (NAPROSYN) 500 MG tablet Take 1 tablet (500 mg total) by mouth 2 times daily. PRN 180 tablet 5 No current facility-administered medications on file prior to visit. Interval History: Mr. Mckeon is returning for SVT follow up. He has had no recurrent SVT symptoms. Patient denies fluttering, chest pain, dyspnea, syncope, sweating, dizziness, or pedal edema. He is excited to go deer hunting with his friend. Physical Exam: There were no vitals taken for this visit. HEENT: Mucous membranes moist, sclerae anicteric Neck: no JVP elevation, no bruits bilaterally Resp: clear to auscultation bilaterally Cardiac: Regular rate and rhythm, no murmurs or gallops GI: Soft, nontender, nondistended, normal bowel sounds EXT: No clubbing, cyanosis, edema, palpable DP 1+ bilaterally Psych: Alert and oriented x3, normal affect Neuro: nonfocal Data Reviewed: Cardiology office Visit 08/12/19: f/u SVT. EKG NSR 55bpm, adequate intervals EKG today - NSR 56 bpm, adequate intervals TTE surface complete echo 09/18/2017: diastolic dysfunction. LVEF 55-60%. Trace TR. Assessment and Plan: 1. SVT: Patient denies symptomatic recurrence and none on EKG. Intervals adequate on EKG today on flecainide. 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 2. CV risk: patient is diabetic and is active with no limiting symptoms. Negative stress test 2015. Secondary prevention: BB, statin. Plavix discontinued s/p spontaneous brain hemorrhage. 3.Low BP- BP stable in office today. No symptoms of hypotension reported. No changes. Disposition: 6 month f/u I contributed to the content of this note. Electronically signed by: TAQUERIA Whelan Student 02/11/2020 11:46 AM Electronically signed by: TAQUERIA Whelan Student 02/11/20 1201 Addendum Note - Javi Gonsales PA-C - 02/11/2020 11:15 AM EDT Addended by: JAVI GONSALES on: 02/11/2020 01:42 PM Modules accepted: Orders documented in this encounter Plan of Treatment Not on filedocumented as of this encounter Procedures Procedure Name Priority Date/Time Associated Diagnosis Comme nts CARDIOLOGY SCAN 02/12/2020 8:43 Results f or this AM EDT procedure are i n the results section. EKG - PERFORMED Routine 02/11/2020 11:44 Supraventricular Resu lts for this DURING CLINIC AM EDT tachycardia (HCC) procedure are in VISIT the results section. documented in this encounter Results CARDIOLOGY SCAN (02/12/2020 8:43 AM EDT) Narrative This result has an attachment that is no t available. Default Authenticator Emerson SCANNED DOCUMENTS EKG - PERFORMED DURING CLINIC VISIT (02/11/2020 [...] ? QTC ?416 ? ms ? P [place] ? 9 ? degrees ? R [place] ? -45 ? degrees ? T [place] ? 14 ?degrees ? Sinus bradycardia Left [...] Interval 432 ms QTC 416 ms P [place] 9 degrees R [place] -45 degrees T [place] 14 degrees Sinus bradycardia Left anterior fascicular [...] dysrhythmias documented in this encounter Care Teams Birdcage Assembler Relationship Specialty Start Date End Date Neal Breen MD PCP - General Family Medicine 07/31/18 07/14/[address] [place] [address] documented as of this encounter
--- OUTSIDE RECORDS SUMMARY | 2021-11-30 11:47 | XMS_ITS | Encounter Summary ---
:1955 Author Organization [facility] [place] [address] Care Team Providers Name Role Phone Neal Breen MD Primary Care Provider Encounter Details Date Type Department Care Team Description 09/10/2019 Travel Social History Tobacco Use Types Packs/Day [...] been in contact with No / Unsure 09/10/2019 11:18 AM EDT someone who was confirmed or [...] on filedocumented in this encounter Care Teams Finisher [employer] Boat [employer] Relationship Specialty Start Date End Date Neal Breen MD PCP - General Family Medicine 07/31/18 07/14/[address] [place] [address] documented as of this encounter
--- OUTSIDE RECORDS SUMMARY | 2021-11-30 11:47 | XMS_ITS | Encounter Summary ---
:1955 Author Organization [facility] [place] [address] Care Team Providers Name Role Phone Neal Breen MD Primary Care Provider [phone] Reason for Visit Reason Onset Date Comments Results 06/03/2019 Sleep Study Encounter Details Date Type Department Care Team Description 06/03/2019 Telephone Pulmonary & Critical Tr Martinez (Sleep Study) Care - [place] [id number] [phone] Social History Tobacco Use Types Packs/Day Years [...] this encounter Miscellaneous Notes Telephone Encounter - Tr Martinez PA-C - 06/03/2019 3:55 PM EST Left msg that I was calling regarding results from recent sleep study. End of call. Electronically signed by: Tr Martinez PA-C 06/03/19 1555 documented in this encounter Plan of Treatment Not on filedocumented as of this encounter Visit Diagnoses Not on filedocumented in this encounter Care Teams Reel Cart Operator Relationship Specialty Start Date End Date Neal Breen MD PCP - General Family Medicine 07/31/18 07/14/[address] [place] [address] documented as of this encounter
--- OUTSIDE RECORDS SUMMARY | 2021-11-30 11:47 | XMS_ITS | Encounter Summary ---
:1955 Author Organization [facility] [place] [address] Care Team Providers Name Role Phone Neal Breen MD Primary Care Provider [phone] Encounter Details Date Type Department Care Team Description 09/12/2019 Travel Social History Tobacco Use Types Packs/Day [...] on filedocumented in this encounter Care Teams Court Recorder Relationship Specialty Start Date End Date Neal Breen MD PCP - General Family Medicine 07/31/18 07/14/[address] [place] [address] documented as of this encounter
--- OUTSIDE RECORDS SUMMARY | 2021-11-30 11:47 | XMS_ITS | Encounter Summary ---
:1955 Author Organization [facility] [place] [address] Care Team Providers Name Role Phone Neal Breen MD Primary Care Provider [phone] Encounter Details Date Type Department Care Team Description 04/01/2019 Office Visit Pain Management - Miguelito Dee Mild cogn itive impairment; Premier Moderate episode of recurren t major depressive disorder (HCC); [address] Premier MDD (major depressive disord er), recurrent episode, moderate (HCC) [place] [address] Social History Tobacco Use Types [...] documented as of this encounter Progress Notes Miguelito Dee - 04/01/2019 9:00 AM EST NEUROPSYCHOLOGICAL EVALUATION DATE(S) OF SERVICE: 04/01/2019 TESTING TIME (includes medical record review, administration, scoring, interpretation, report preparation, face-to face time with patient): [id number]: Previously billed [id number]: 194 minutes [id number]: 60 [id number]: 32 minutes. REFERRAL INFORMATION: The patient is referred by Dr. Breen for neuropsychological evaluation. The initial interview and psychopathology testing were conducted on 01/23/2019 (see Epic). This encounter note will summarize the results of psychometric testing, final diagnostic impressions, and treatment re commendations. HPI: See 01/23/2019 Encounter Note. PSYCHOSOCIAL HISTORY: See 01/23/2019 Encounter Note. MENTAL STATUS EXAMINATION: See 01/23/2019 Encounter Note PSYCHOLOGICAL TESTING: TESTS ADMINISTERED: 2 and 7 Selective Attention Test (2 and 7), Cognistat (Language subtests; COG), Controlled Oral Word Association Test (COWAT), the Stroop Test (Stroop), Symptom Checklist 90--Revised (SCL90-R), Trailmaking Tests Parts A and B (Trails), Tita Adult Intelligence Scale-IV partial ad ministration (WAIS-IV), Tita Memory Dgdpm-JH-Lyrhltog Approach (WMS-IVFA). TEST BEHAVIOR: The patient appeared to give a full, consistent effort during cognitive testing. He did not require any rest breaks. Of note, the patient had some recollection of the previously administered cognitive tasks (PRODUCT DESIGN MANAGER evaluation by Dr. Hoyt, October,) suggesting his currently measured performances may have been enhanced to some extent. TEST RESULTS AND INTERPRETATIONS: NOTE: For the Tita Scales, M=100, SD=15 For T-scores, M=50, SD=10 For scaled scores, M=10, SD=3 LATERALITY: The patient is right handed. SYMPTOM VALIDITY: MMPI-RF Scales FBS-r and RBS were not administered. INTELLECTUAL FUNCTIONS: The patient obtains a verbal comprehension index (VCI) score of 93, a perceptual reasoning index (ERVIN) score of 81, and a General Ability Index (GAI) score of 84 on this valid administration of the WAIS-IV. This GAI score of 84 falls within the low average range of intellectual functioning, with a rank at the 14th percentile. As this is a partial WAIS-IV administration, no Full Scale IQ (FSIQ) score can be calculated. The 12 point difference between the patient's verbal and perceptual functions as measured by the VCI/ERVIN scores is statistically significant but not likely of clinical relevance (p<.05, br=19.3). ATTENTION/MEMORY/EXECUTIVE FUNCTIONS: On the 2 and 7 Test, the patient obtains WNL scores on processing speed and accuracy. There are are significant differences between his accuracy performances in the automatic detection versus the controlled search conditions of the test, however, the former being superior (p<.05, br=2-5%). In regard to working memory (a form of complex attention), the patient obtains a Digit Span subtest score of 9, which falls within the average range. In regard to composite memory functions, the patient obtains a score of 99 on the immediate memory index (IMI) and a score of 113 on the delayed memory index (DMI). These scores fall within the averageand high average ranges, respectively. The 14 point difference between these two scores is both stati stically and clinically significant (p<.05/br=4.4). In terms of modality-specific memory functions the patient obtains a score of 109 on the auditory memory index (AMI), which falls within the average range. On the visual memory index (VMI), the patientobtains a score of 100, which falls within the average range. The 9 point difference between the AMIand VMI scores is statistically, but not clinically significant (p<.05/br=28.9) . In regard to verbal associate learning, the patient obtains a scaled score of 10 on Verbal Paired Associates I (VPA-I), the immediate recall condition. This score falls within the average range. Finally, the patient obtains a scaled score of 11 on Verbal Paired Associates-II (VPA-II), the delayed recall condition. This score falls within the average range. Memory and intellectual functions are correlated. For the intellectual component of these comparisons, the General Ability Index (GAI) score of 84 is utilized. When the patient's GAI score is compared to their IMI and DMI scores, we find no significant differences in the direction of clinical concern. In regard to executive functions, the patient obtains WNL color-word score on the Stroop Test. The Stroop interference score is noted to be WNL as well. On the COWAT, the patient obtains a unique word productivity score that is WNL. There are no perseveration errors noted. Finally, on Trails Part B, the patient could not complete the task due to an inability to continue following a perseveration error. The task was termed at 180 seconds by the Examiner as a result. PERCEPTUAL AND PSYCHOMOTOR: The patient's overall visuo-spatial/motor functions are noted to be low average. Specifically, on the WAIS-IV subscales the patient obtains a scaled score of 6 on Block Design, and a scaled score of 7 on Matrix Reasoning. In addition, there is no evidence for constructionalapraxia on the patient's WMS-IV visual memory task performances. In regard to overall speed of psychomotor processing, the patient obtains variable on measures of processing speed (Stroop word and color, Trails Part A, Coding subscale). Specifically, the patient's Stroop and Trailmaking performances were WNL, while his Coding subtest score was impaired (scaled score =4). Right versus left sided comparisons of motor function were not undertaken. LANGUAGE FUNCTIONS: There is no evidence for receptive language dysfunction. There is no evidence for expressive language dysfunction. Confrontational naming is intact. In regard to the patient's general use of language, the patient obtains a scaled score of 9 on the vocabulary subtest of the WAIS-IV, which falls within the average range. Finally, regarding verbal fluency, the patient obtains a unique word productivity score that is WNL on the COWAT. PSYCHOPATHOLOGY: SCL90-R: Global Severity Indices: The patient's global distress levels in association with somatic and psychological issues are highly elevated, and may approach crisis proportions. Clinical Scales: There are clinically significant elevations noted on 4 of the 9 clinical scales (indecreasing order of magnitude: Interpersonal Sensitivity, Somatization, Depression, Hostility, Psychoticism). The Psychoticism scale elevation at T=71 is not likely to reflect a psychotic process, but rather feelings of alienation and the experience of cognitive difficulty. DIAGNOSTIC IMPRESSION: AXIS I: Mild Cognitive Impairment Major Depression, recurrent, moderate, without psychosis Rule out learning disorder AXIS II: No diagnosis SUMMARY AND RECOMMENDATIONS: In summary, the patient continues to exhibit cognitive impairment in the domains of executive functioning and processing speed on several measures when compared to his performances in his 2018 PRODUCT DESIGN MANAGER evaluation with Dr. Hoyt. However, memory and learning are significantly improved from his previous evaluation, though the patient may have to some extent tested at a higherperformance level given his recollection of tasks which were re-administered to him in the current evaluation. Language functions are generally intact and intellectual functions are noted to be low average. Attention and working memory scores are generally WNL, though controlled search accuracy is suppressed compared to automatic detection accuracy. Psychometric data and the patient's self report areconsistent with a mood disorder. The self- reported history is suggestive of possible mild learning disorder, though firmly establishing this is beyond the scope of this evaluation. 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 Therefore, the patient's cognitive difficulties are likely to have multiple determinants. The patient is reporting compliance with donepezil and memantine therapy. Recommendations: 1. The patient states his notices loud nocturnal snoring and the patient himself further reports EDS (falling asleep reading or watching You Tube videos). As he is reporting apathy as well as cognitive difficulty, referral for a sleep study to rule out MARTA or other sleep disordered breathing issues might be considered. 2. The patient reports lack of efficacy from a previous SSRI trial. Therefore, other treatment considerations for mood disorder include referral for counseling and/or consideration of an agent such as bupropion, which has the advantage of potentially addressing apathy, slow processing, and executive dysfunction in addition to depression, assuming there are no medical contraindications to the patient taking this agent. 3. The patient might be advised to consider a regular mild to moderate cardiovascular exercise routine. 4. The patient might be advised to consider adoption of the MIND diet, which recent research suggests may have neuro-protective benefits (https://www.[facility].org/healthy-lifestyle/kayaobmbi-qzh-rqzuj hy-eating/in-depth/mhoqwmk-fjsgz-kgjuoh-gvyp-nfa-fnfa-diet/art-59015187). Thank you for referring this nice patient for a consultation. Miguelito Dee, PhD. Licensed Psychologist [facility] [address] [place] [phone] (FAX) Electronically signed by: Miguelito Dee, PhD 04/01/19 9255 documented in this encounter Plan of Treatment Not on filedocumented as of this encounter Visit Diagnoses Diagnosis Mild cognitive impairment Mild cognitive impairment, so stated Moderate episode of recurrent major depr essive disorder (HCC) MDD (major depressive disorder), recurre nt episode, moderate (HCC) documented in this encounter Care Teams Supervisor Gelatin Plant Relationship Specialty Start Date End Date Neal Breen MD PCP - General Family Medicine 07/31/18 07/14/[address] [place] [id number] documented as of this encounter
--- OUTSIDE RECORDS SUMMARY | 2021-11-30 11:47 | XMS_ITS | Encounter Summary ---
:1955 Author Organization [facility] [place] [address] Care Team Providers Name Role Phone Neal Breen MD Primary Care Provider [phone] Reason for Visit Reason Comments Follow-up Encounter Details Date Type Department Care Team Description 11/20/2019 Office Visit Pulmonary Sleep - Tr Martinez Moderate obstructive sleep apnea (Primary Dx); Jennifer Mendez PA-C Seasonal allergic rhinitis due to pollen ; 4 Medical [facility] Repetitive intrusion of slee p with environmental disturbances [facility] [address] [place], [place] [phone] [address] Social History Tobacco Use Types Packs/Day [...] been in contact with No / Unsure 11/20/2019 10:01 AM EDT someone who was confirmed or suspected to have Coronavirus / COVID-19? documented as of this encounter Last Filed Vital Signs Vital Sign Reading Time Taken Comments Blood Pressure 134/64 11/20/2019 10:06 AM EDT Pulse 55 11/20/2019 10:06 AM EDT Temperature 36.7 ??C (98.1 ??F) 11/20/2019 10:06 AM EDT Respiratory Rate 14 11/20/2019 10:06 AM EDT Oxygen Saturation 96% 11/20/2019 10:06 AM room air EDT Inhaled Oxygen Concentration - - Weight 108.6 kg (239 lb 6.4 oz) 11/20/2019 10:06 AM EDT Height 180.3 cm (5' 10.98) 11/20/2019 10:06 AM EDT Body Mass Index 33.4 11/20/2019 10:06 AM EDT documented in this encounter Functional [...] Patient Instructions Patient InstructionsTr Martinez PA-C - 11/20/2019 10:00 AM EDT - Start Flonase, consider using nasal saline irrigation to wash the nose prior - Obtain chin strap documented in this encounter Progress Notes Tr Martinez PA-C - 11/20/2019 10:00 AM EDT [facility] Return Patient Visit Date of Visit: 11/20/2019 Primary Care Physician: Neal Breen MD Referring Provider: Self, A Referral Chief Complaint: Chief Complaint Patient presents with ??? Follow-up History of Present Illness: Dario Mckeon is a 64 y.o. male who presents to the Sleep Medicine Clinic for follow up for MARTA. PMHx significant for Obesity (BMI > 33), HTN, HLD, Type II DM, Depression, Hx of SVT, Hx of Ischemic TIA/CVA and Hx of Intraparenchymal Hemorrhage (Amyloid Angiopathy). He was last seen in 04/2019 for suspected MARTA consultation. Patient completed Split PSG in 05/2019 revealing MARTA with AHI: 21.9 with associated desaturation (O2 elvis: 82%) and was titrated to CPAP 13cm. Mr. Mckeon presents to clinic today reporting he's doing well since he started CPAP therapy. Notes better sleep quality and wakefulness throughout the day. Denies any pressure tolerance concerns. Does admit to high leak which he attributes to his ornelas. This bothers his at times due to the noise. Denies any waking/morning headaches. He reports his biggest remaining challenge with his sleep is being woken during the night from his dogs. Notes they will get in bed or wake him in the mechanical assembler hours for various reasons. Notes concerns for allergies causing rhinitis and nasal congestion at times impacting tolerance to therapy at times. Device Settings: 13cm Device Supply Company: [employer] Compliance Data Review: CPAP Dowload 11/20/2019 Days Used 115 % Use (Greater than 4 hours) 70 Hours/Days Used 4.8 Leak Average 75 AHI Average 5 Pressure 13 Clinically, patient feels on PAP: improved wakefulness and improved sleep. Denies symptoms compatible with restless legs syndrome. Denies motor vehicle crashes or near misses due to excessive day time sleepiness. [place] Sleepiness Scale 04/18/2019 11/20/2019 Sitting and reading 3 0 Watching TV 2 1 Sitting, inactive in a public place (e.g. a theatre or a meeting) 0 0 As a passenger in a car for an hour without a break 2 0 Lying down to rest in the afternoon when circumstances permit 2 2 Sitting and talking to someone 0 0 Sitting quietly after a lunch without alcohol 1 0 In a car, while stopped for a few minutes in traffic 0 0 Total score 10 3 The [place] Sleepiness Scale is used to determine the [...] Last attempt to quit: 04/16/1989 Years since quittin.6 ??? Smokeless tobacco: Never Used Substance and Sexual Activity ??? Alcohol use: Yes Comment: occasional beer ??? Drug use: No ??? Sexual activity: None Lifestyle ??? Physical activity Days per week: None Minutes per session: None ??? Stress: None Relationships ??? Social connections Talks on phone: None Gets together: None Attends hindu service: None Active member of club or organization: None Attends meetings of clubs or organizations: None Relationship status: None Other Topics Concern ??? None Social History Narrative ??? None Medications: Meds Ordered in [facility] Medication Sig Dispense Refill ??? ascorbic acid, [...] 2 times daily. 180 tablet 3 ??? memantine 28 mg CSpX Take 28 [...] times daily. PRN 180 tablet 5 ??? fluticasone propionate (FLONASE) 50 mcg/actuation nasal spray 2 sprays by Each Nare route 2 times daily. 16 g 2 No current Epic-ordered facility-administered medications on file. Physical Exam: Vitals: 11/20/19 1006 BP: 134/64 Pulse: 55 Temp: 98.1 ??F (36.7 ??C) Resp: 14 SpO2: 96% Comment: room air Position: Sitting Body mass index is 33.4 kg/m??. General: Alert, normal appearing, no acute distress Head: Normocephalic, without obvious abnormality, atraumatic Eyes: Sclera clear, EOM intact Lungs: Good respiratory effort, Clear to auscultation bilaterally with no wheezes, rales or rhonchi. Heart: Regular rate and rhythm, S1, S2 normal, no murmurs appreciated Musculoskeletal: Free range of motion x 4. No joint tenderness. Integument: No rash. No cyanosis. No edema Lymphatics: No cervical or supraclavicular adenopathy. Neurologic: Alert and oriented x3 Diagnostic Review: I personally reviewed the following: Sleep Study Data: AHI (Apnea-Hypopnea Index): 21.9 [...] 09/16/2017 Assessment/Plan: 1. Moderate obstructive sleep apnea 2. Seasonal allergic rhinitis due to pollen fluticasone propionate (FLONASE) 50 mcg/actuation nasal spray 3. Repetitive intrusion of sleep with environmental disturbances 64 y.o. y/o male who is seen in follow up after initiation of CPAP for Moderate MARTA. Has met compliance and receiving subjective benefit. MARTA is well controlled as residual index is less than 5.0. There is significant leak which is felt to be due to his ornelas to which he is not willing to trim/groom. Discussed the use of chin strap to help with leak and jaw laxity given current use of FFM. Also will provide Rx for Flonase to help with allergies and nasal congestion. 1. Counseled on sleep hygiene and importance of maintaining sleep routine 2. Counseled on weight loss / maintenance of healthy weight 3. Counseled NOT to drive if/when sleepy Return in about 6 months (around 05/22/2020). Keep up to date on adult immunizations, especially influenza and pneumonia. Thank you for the opportunity to participate in the care of your patient. If I can be of further assistance please do not hesitate to contact the office. Electronically signed by: Tr Martinez PA-C 11/21/19 0743 documented in this encounter Plan of Treatment Not on filedocumented as of this encounter Visit Diagnoses Diagnosis Moderate obstructive sleep apnea - Prima ry Seasonal allergic rhinitis due to pollen Repetitive intrusion of sleep with envir onmental disturbances Repetitive intrusions of sleep documented in this encounter Care Teams Organizational Research Consultant Relationship Specialty Start Date End Date Neal Breen MD PCP - General Family Medicine 07/31/18 07/14/[address] [place] [address] documented as of this encounter
--- OUTSIDE RECORDS SUMMARY | 2021-11-30 11:47 | XMS_ITS | Encounter Summary ---
:1955 Author Organization [facility] [place] [address] Care Team Providers Name Role Phone Neal Breen MD Primary Care Provider [phone] Encounter Details Date Type Department Care Team Description 04/08/2019 Telephone Sleep Lab [place] [address] [place], [place] [address] [phone] Social History Tobacco Use Types Packs/Day Years [...] this encounter Miscellaneous Notes Telephone Encounter - Franklin Currie - 04/08/2019 1:53 PM EST Contacted Dario Mckeon regarding the sleep clinic referral that was placed by him provider. Patient refused to schedule an appointment: No Patient was not scheduled for an appointment. Left message: Yes Electronically signed by: Franklin Currie 04/08/2019 1:53 PM Electronically signed by: Franklin Currie 04/08/19 1353 documented in this encounter Plan of Treatment Not on filedocumented as of this encounter Visit Diagnoses Not on filedocumented in this encounter Care Teams Billet Heater Relationship Specialty Start Date End Date Neal Breen MD PCP - General Family Medicine 07/31/18 07/14/[address] [place] [address] documented as of this encounter
--- OUTSIDE RECORDS SUMMARY | 2021-11-30 11:47 | XMS_ITS | Encounter Summary ---
:1955 Author Organization [facility] [place] [address] Care Team Providers Name Role Phone Neal Breen MD Primary Care Provider [phone] Reason for Visit Reason Onset Date Comments Colorguard results 04/14/2020 Encounter Details Date Type Department Care Team Description 04/14/2020 Telephone [facility] Neal Breen Colorguard results [facility] Family Medicine [place] [address] [place] [address] [place] [address] (Wo rk) Social History Tobacco [...] Encounter - Susy Meade CMA - 04/14/2020 2:45 PM EST See next telephone note. Electronically signed by: Susy Meade CMA 04/14/20 1445 Telephone Encounter - Tyrone Waggoner - 04/14/2020 2:25 PM EST Bess with [facility] advising on fax that was sent 04/13/20 with abnormal result. Callback [phone] FYBekah documented in this encounter Plan of Treatment Not on filedocumented as of this encounter Visit Diagnoses Not on filedocumented in this encounter Care Teams Sas Bi Developer Relationship Specialty Start Date End Date Neal Breen MD PCP - General Family Medicine 07/31/18 07/14/[address] [place] [address] documented as of this encounter
--- OUTSIDE RECORDS SUMMARY | 2021-11-30 11:47 | XMS_ITS | Encounter Summary ---
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 documented as of this encounter Last Filed Vital Signs Vital Sign Reading Time Taken Comments Blood Pressure 114/75 10/29/2019 5:01 PM EDT Pulse 64 10/29/2019 5:01 PM EDT Temperature 36.8 ??C (98.3 ??F) 10/29/2019 5:01 PM EDT Respiratory Rate 20 10/29/2019 5:01 PM EDT Oxygen Saturation 95% 10/29/2019 5:01 PM EDT Inhaled Oxygen Concentration - - Weight 108.2 kg (238 lb 9.6 oz) 10/29/2019 5:01 PM EDT Height 180.3 cm (5' 11) 10/29/2019 5:01 PM EDT Body Mass Index 33.28 10/29/2019 5:01 PM EDT documented in this encounter Functional [...] documented as of this encounter Progress Notes Chanelle Hair, STANLEY - 10/29/2019 5:00 PM EDT Subjective: Dario Mckeon is a 63 y.o. male who presents for evaluation of a rash involving the calf, knee, lower extremity and lower leg. Rash started 5 days ago. Lesions are clear, and raised in texture. Rash has not changed over time. Rash is pruritic. Associated symptoms: none. Patient denies: arthralgia, cough, fever, irritability and myalgia. Patient has not had contacts with similar rash. Patient has not had new exposures (soaps, lotions, laundry detergents, foods, medications, plants, insects or animals). He does report that he recently mowed the lawn. He has used hydrocortisone 10 with no improvement. The following portions of the patient's history were reviewed and updated as appropriate: allergies,current medications, past family history, past medical history, past social history, past surgical history and problem list. Review of Systems A complete ROS was performed with pertinent positives/negatives noted in the HPI. The remainder of the ROS are negative. Objective: BP 114/75 Pulse 64 Temp 98.3 ??F (36.8 ??C) (Tympanic) Resp 20 Ht 1.803 m (5' 11) Wt 108.2 kg (238 lb 9.6 oz) SpO2 95% BMI 33.28 kg/m?? General: alert, appears stated age and cooperative Skin: erythematous rash with clear small vesicles located behind the knee and going down the calf onbilateral legs Assessment: atopic dermatitis Plan: Medications: topical steroid: clobetasol and atarax. Verbal patient instruction given. Follow-up as needed. Electronically signed by: STANLEY Bustamante 10/29/2019 5:15 PM Electronically signed by: STANLEY Bustamante 11/02/19 1800 documented in this encounter Plan of Treatment Not on filedocumented as of this encounter Visit Diagnoses Diagnosis Allergic dermatitis - Primary Contact dermatitis and other eczema, due to unspecified cause documented in this encounter Care Teams Inorganic Chemistry Professor Relationship Specialty Start Date End Date Neal Breen MD PCP - General Family Medicine 07/31/18 07/14/[address] [place] [address] documented as of this encounter
--- OUTSIDE RECORDS SUMMARY | 2021-11-30 11:47 | XMS_ITS | Encounter Summary ---
:1955 Author Organization [facility] [place] [place] [address] Care Team Providers Name Role Phone Neal Breen MD Primary Care Provider [phone] Reason for Visit Reason Onset Date Comments possible poison ely, back of both legs 10/29/2019 same day appointment 10/29/2019 Encounter Details Date Type Department Care Team Description 10/29/2019 Telephone [facility] Neal Breen e poison ely, Network Family MD Miguel back of both legs; same [facility] [address] day appointment [address] [place] [address] [place], [place] [phone] (Wo rk) [phone] Social History Tobacco Use Types Packs/Day Years [...] in contact with No / Unsure 10/29/2019 9:27 AM EDT someone who was confirmed or [...] Telephone Encounter - Susy Meade CMA - 10/29/2019 10:50 AM EDT Spoke with Johanna and scheduled appointment for patient today 10-29-2019 @ 1700 with [facility]. Electronically signed by: Susy Meade CMA 10/29/19 1051 Telephone Encounter - Olivia Conklin - 10/29/2019 9:33 AM EDT Johanna, Mr. Mckeon' girlfriend and Mr. Mckeon are calling requesting an appointment for today. Needs to be seen for: Possible poison ely on the back of both legs, worse on right Called and spoke to Shabnam and relayed to the patient to come to [facility] this afternoon at 5:00. I asked that they check in about 15 minutes early. They are aware this is on a first come basis. documented in this encounter Plan of Treatment Not on filedocumented as of this encounter Visit Diagnoses Not on filedocumented in this encounter Care Teams Biometrics Experimentalist Relationship Specialty Start Date End Date Neal Breen MD PCP - General Family Medicine 07/31/18 07/14/21 [address] [place] [address] documented as of this encounter
--- OUTSIDE RECORDS SUMMARY | 2021-11-30 11:47 | XMS_ITS | Encounter Summary ---
:1955 Author Organization [facility] [place] [address] Care Team Providers Name Role Phone Neal Breen MD Primary Care Provider [phone] Reason for Visit Reason Comments Follow-up 6 m f/u & EKG Encounter Details Date Type Department Care Team Description 08/12/2019 Office Visit Cardiology - Arianna Alvares Essential hy pertension (Primary Dx); Jennifer Field PA-C Supraventricular tachycardia (HCC) 14 [facility] [address] [place] [place] [address] [address] [place], [place] [phone] [facility] Social History Tobacco Use Types Packs/Day Years [...] been in contact with No / Unsure 08/12/2019 11:06 AM EDT someone who was confirmed or suspected to have Coronavirus / COVID-19? documented as of this encounter Last Filed Vital Signs Vital Sign Reading Time Taken Comments Blood Pressure 116/74 08/12/2019 11:06 AM EDT Pulse 57 08/12/2019 11:06 AM EDT Temperature 36.9 ??C (98.5 ??F) 08/12/2019 11:06 AM EDT Respiratory Rate - - Oxygen Saturation 96% 08/12/2019 11:06 AM EDT Inhaled Oxygen Concentration - - Weight 109 kg (240 lb 4 oz) 08/12/2019 11:06 AM EDT Height 177.8 cm (5' 10) 08/12/2019 11:06 AM EDT Body Mass Index 34.47 08/12/2019 11:06 AM EDT documented in this encounter Functional [...] documented as of this encounter Progress Notes Arianna Alvares PA-C - 08/12/2019 11:00 AM EDT Past Medical History: 1. SVT -- R atrial foci -- s/p AFL ablation but unsuccessful AT ablation A. Controlled on flecainide B. Negative nuclear perfusion scan 04/24/2015 2. DM2 3. OA s/p TKA 4. 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 Allergies: Reviewed ?? Prior to Admission medications Medication Sig Start Date End Date Taking? Authorizing Provider ascorbic acid, vitamin C, (VITAMIN C) 500 MG tablet Take 500 mg by mouth every morning. Yes Historical Provider, atorvastatin (LIPITOR) 20 MG tablet Take 20 mg by mouth daily. Yes Historical Provider, clopidogrel (PLAVIX) 75 mg tablet *ANTIPLATELET* Take 1 tablet (75 mg total) by mouth daily. 09/18/17 03/06/18 Yes Luda Ennis MD DEXT 70/POLYCARBOPHIL/PEG/NACL (ARTIFICIAL TEAR SOLUTION OPHT) Place 1 drop into both eyes as needed. Yes Historical Provider, donepezil (ARICEPT) 10 MG tablet Take 10 mg by mouth daily. Yes Historical Provider, flecainide (TAMBOCOR) 100 MG tablet Take 100 mg by mouth every 12 hours. Yes Historical Provider, fluticasone (FLONASE) 50 mcg/actuation nasal spray 2 sprays by Each Nare route daily. 08/21/17 08/21/18 Yes Historical Provider, memantine 28 mg CSpX Take 28 mg by mouth daily. Yes Historical Provider, metFORMIN (GLUCOPHAGE) 500 MG tablet Take 500 mg by mouth 2 times daily with meals. 08/03/16 Yes Historical Provider, metoPROLOL succinate (TOPROL-XL) 25 MG 24 hr tablet Take 1 tablet (25 mg total) by mouth daily. 08/31/17 Yes Vasquez Krishnan II, PA-C multivitamin capsule Take 1 capsule by mouth daily. Yes Historical Provider, aspirin 81 MG EC tablet *ANTIPLATELET* aspirin 81 mg tablet,delayed release Take 1 tablet every day by oral route. 03/06/18 Historical Provider, naproxen (NAPROSYN) 500 MG tablet Take 1 tablet (500 mg total) by mouth 2 times daily. 06/30/17 03/06/18 Miguelito Manuel MD ?? Interval History: Mr Mckeon is here for f/u SVT. He continues to do well without recurrent SVT symptoms. He is currently putting a new fence in his yard, digging post-holes daily without limiting symptoms. He denies any CP or dyspnea. No palpitations, dizziness or syncope. He denies any pedal edema and orthopnea. He bought a new motorcycle and is enjoying riding in the nice weather recently. ?? Physical Exam: Blood pressure 116/74, pulse 57, temperature 98.5 ??F (36.9 ??C), temperature source Oral, height 1.778 m (5' 10), weight 109 kg (240 lb 4 oz), SpO2 96 %. General: ??Well appearing and in no distress HEENT: ??Mucous membranes moist, sclerae anicteric Neck: ??No JVP elevation, no carotid bruits bilaterally Resp: ??Clear to auscultation bilaterally Cardiac: ??Regular rate and rhythm, no audible murmur GI: ??Soft, nontender, nondistended, bowel sounds present EXT: ??No clubbing, cyanosis, edema Psych: ??Alert and oriented x3, normal affect Neuro: ??nonfocal Skin: ??No notable rashes and lesions MSK: ??No joint deformities or inflammation ?? Data Reviewed: EKG today - NSR 55bpm, adequate intervals ?? Assessment and Plan: 1. SVT - He denies symptomatic recurrence and none on EKGs.. ??Intervals adequate today on flecainide. ??No h/o AFib or AFL documented so no AC at this time (h/o hemorhage in brain spontaneous). 2. CV risk - he is diabetic. ??He is active without limiting symptoms. ??Neg stress test 2016. ??On statin, BB. Plavix discontinued after spontaneous brain hemorrhage. 3. Low BP - improved. No recent symptoms of hypotension. Disposition: 6 months Electronically signed by: Arianna Alvares PA-C 08/12/19 1142 Heather Johnson CMA - 08/12/2019 11:00 AM EDT I performed an EKG during today's visit. Electronically signed by: Heather Johnson CMA 08/12/2019 11:16 AM Electronically signed by: Arianna Alvares PA-C 08/12/19 1142 documented in this encounter Plan of Treatment Not on filedocumented as of this encounter Procedures Procedure Name Priority Date/Time Associated Diagnosis Comme nts CARDIOLOGY SCAN 08/12/2019 3:17 Results f or this PM EDT procedure are i n the results section. EKG - PERFORMED Routine 08/12/2019 11:16 Supraventricular Resu lts for this DURING CLINIC AM EDT tachycardia (HCC) procedure are in VISIT the results section. documented in this encounter Results CARDIOLOGY SCAN (08/12/2019 3:17 PM EDT) Narrative This result has an attachment that is no t available. Default Authenticator Emerson SCANNED DOCUMENTS EKG - PERFORMED DURING CLINIC VISIT (08/12/2019 [...] ? QTC ?447 ? ms ? P [place] ? 16 ?degrees ? R [place] ? -53 ? degrees ? T [place] ? 20 ?degrees ? Sinus bradycardia First [...] Interval 468 ms QTC 447 ms P [place] 16 degrees R [place] -53 degrees T [place] 20 degrees Sinus bradycardia First degree A-V block Left axis deviation Pulmonary disease When compared with ECG of 01-FEB-2019 11 :17, No significant change was found Confirmed by DR. FUNMILAYO EASON ([id number]) on 08/12/2019 3:09:42 PM Funmilayo Eason MD ECG SPECIAL Performing Organization Address City/State/ZIP Code Phon e Number MUSE documented in this encounter Visit Diagnoses Diagnosis Essential hypertension - Primary Unspecified essential hypertension Supraventricular tachycardia (HCC) Other specified cardiac dysrhythmias documented in this encounter Care Teams Drapery Estimator Relationship Specialty Start Date End Date Neal Breen MD PCP - General Family Medicine 07/31/18 07/14/[address] [place] [address] documented as of this encounter
--- OUTSIDE RECORDS SUMMARY | 2021-11-30 11:47 | XMS_ITS | Encounter Summary ---
:1955 Author Organization [facility] [place] [address] Care Team Providers Name Role Phone Neal Breen MD Primary Care Provider [phone] Encounter Details Date Type Department Care Team Description 08/12/2019 Travel Social History Tobacco Use Types Packs/Day [...] on filedocumented in this encounter Care Teams Clinical Nursing Manager Relationship Specialty Start Date End Date Neal Breen MD PCP - General Family Medicine 07/31/18 07/14/[address] [place] [address] documented as of this encounter
--- OUTSIDE RECORDS SUMMARY | 2021-11-30 11:47 | XMS_ITS | Encounter Summary ---
:1955 Author Organization [facility] [place] [address] Care Team Providers Name Role Phone Neal Breen MD Primary Care Provider [phone] Reason for Referral (Routine) - Closed Specialty Diagnoses / Procedures Referred By Contact Refer red To Contact Diagnoses At risk for obstructive sleep apnea Tr Martinez PA-C Procedures [place], [place] [address] Referral ID Status Reason Start Date Expiration Date Visits Requ ested Visits Authorized [id number] Closed 04/18/2019 04/17/2020 1 1 Reason for Visit (Routine) - Closed Specialty Diagnoses / Procedures Referred By Contact Refer red To Contact Diagnoses At risk for obstructive sleep apnea Tr Martinez PA-C Procedures [place], [place] [address] Referral ID Status Reason Start Date Expiration Date Visits Requ ested Visits Authorized [id number] Closed 04/18/2019 04/17/2020 1 1 Encounter Details Date Type Department Care Team Description 05/30/2019 Hospital Encounter Sleep Lab - [address] [address] Social History Tobacco Use Types Packs/Day [...] Sign Reading Time Taken Comments Blood Pressure - - Pulse - - Temperature - - Respiratory Rate - - Oxygen Saturation - - Inhaled Oxygen Concentration - - Weight 107.5 kg (237 lb) 05/30/2019 9:00 PM EST Height 177.8 cm (5' 10) 05/30/2019 9:00 PM EST Body Mass Index 34.01 05/30/2019 9:00 PM EST documented in this encounter Functional [...] by 0 08/12/2019 MG tablet mouth daily. buPROPion (WELLBUTRIN) 100 Take 1 tablet (100 180 tablet 5 0 05/16/2019 09/12/2019 MG tabletIndications: mood mg total) by mouth disorder 3 times daily. cyclobenzaprine (FLEXERIL) Take 1 tablet (10 20 tablet 0 07/08/2021 10 MG tablet mg total) by mouth 2 (two) times daily as needed for up to 10 days. flecainide (TAMBOCOR) 100 Take 1 tablet (100 180 tablet 3 02/18/2020 MG tablet mg total) by mouth 2 times daily. metFORMIN ER Take 1 tablet (500 60 [...] Name Priority Date/Time Associated Diagnosis Comme nts SPLIT NIGHT Routine 05/31/2019 3:25 PM At risk for Results f or this EST obstructive sleep procedure are in apnea the results section. documented in this encounter Results Split Night (05/31/2019 3:25 PM EST) Narrative This result has an attachment that is no t available. Tr Martinez PA-C SLEEP CENTER ORDERABLES Performing Organization Address City/State/ZIP Code Phon e Number [facility]ES[facility] documented in this encounter Visit Diagnoses Diagnosis At risk for obstructive sleep apnea [place] (obstructive sleep apnea) Obstructive sleep apnea (adult) (pediatr ic) documented in this encounter Care Teams Product Trainer Relationship Specialty Start Date End Date Neal Breen MD PCP - General Family Medicine 07/31/18 07/14/[address] [place] [phone] documented as of this encounter
--- OUTSIDE RECORDS SUMMARY | 2021-11-30 11:47 | XMS_ITS | Encounter Summary ---
:1955 Author Organization [facility] [place] [address] Care Team Providers Name Role Phone Neal Breen MD Primary Care Provider [phone] Encounter Details Date Type Department Care Team Description 09/12/2019 Lab Visit [facility] Type 2 di abetes mellitus with hyperglycemia, without long-term current use of insulin (HCC); [facility] Phlebotomy - Hyperli pidemia associated with type 2 diabetes mellitus (HCC); [facility] Hypertension associated with diabetes (HCC) [address] [place] [phone] Social History Tobacco Use Types Packs/Day Years [...] Name Priority Date/Time Associated Diagnosis Comme nts LIPID PROFILE Routine 09/12/2019 11:57 Hyperlipidemia Results for this AM EDT associated with type 2 proce dure are in diabetes mellitus the result s (HCC) section. HEMOGLOBIN A1C Routine 09/12/2019 11:57 Type 2 diabetes Result s for this AM EDT mellitus with procedure are in hyperglycemia, without the r esults long-term current use sectio n. of insulin ([facility]) BASIC METABOLIC Routine 09/12/2019 11:57 Hypertension Results for this PANEL AM EDT associated with procedure ar e in diabetes ([facility]) the results section. documented in this encounter Results (ABNORMAL) Basic Metabolic Panel (09/12/2019 11:57 AM EDT) P athologist Signature Sodium 141 135 - 146 09/12/2019 [place] [facility] MMOL/L 4:39 PM EDT [facility] Potassium 4.0 3.5 - 5.3 09/12/2019 [place] [facility] MMOL/L 4:39 PM EDT [facility] Comment: NO VISIBLE HEMOLYSIS Chloride 108 98 - 110 MMOL/L 09/12/2019 4:39 PM [place] [facility] EDT [facility] CO2 27 23 - 30 MMOL/L 09/12/2019 4:39 PM [place] [facility] EDT [facility] BUN 19 8 - 24 MG/DL 09/12/2019 4:[address] EDT [facility] Glucose 118 (H) 70 - 99 MG/DL 09/12/2019 4:39 PM [place] [facility] EDT [facility] Creatinine 1.10 0.50 - 1.50 09/12/2019 4:[address] MG/DL EDT [facility] Calcium 9.1 8.5 - 10.5 MG/DL 09/12/2019 4:39 PM [place] [facility] EDT [facility] Anion Gap 6 4 - 14 MMOL/L 09/12/2019 4:39 PM [place] [facility] EDT [facility] Est. GFR Non- 71 >=60 ML/MIN/1.73 09/12/2019 4 :39 PM [place] [facility] Tristan[place] M*2 EDT [facility] Comment: GFR estimated by CKD-EPI equati ons, reportable up to 90 ML/MIN/1.73 M*2 Specimen Anatomical Collection Method / Collection Time Recei ericka Time (Source) Location / Volume Laterality Blood specimen Venipuncture / 09/12/2019 11:57 020 (specimen) Unknown AM EDT 11:57 AM EDT Neal Breen MD LAB BLOOD ORDERABLES Performing Organization Address City/State/ZIP Code Phon e Number [facility] CLIA# [id number] [place] [address] [facility] Ines (ABNORMAL) LIPID PROFILE (09/12/2019 11:57 AM EDT) [facility] Method Time Signature LDL Direct 50 <130 09/12/2019 [place] [facility] mg/dL 4:39 PM EDT [facility] Total Cholesterol 109 25 - 199 09/12/2019 [place] [facility] MG/DL 4:39 PM EDT [facility] Triglycerides 181 (H) 10 - 150 09/12/2019 [place] [facility] MG/DL 4:39 PM EDT [facility] HDL Cholesterol 38 35 - 135 09/12/2019 [place] [facility] MG/DL 4:39 PM EDT [facility] Total Chol / HDL 2.9 <4.5 09/12/2019 [place] [facility] Cholesterol 4:39 PM EDT [facility] Non-HDL 71 MG/DL 09/12/2019 [place] [facility] Cholesterol 4:39 PM EDT [facility] Comment: TARGET: <(LDL-C TARGET + 30)MG /DL Coronary Heart Disease Risk 09/12/2019 4 :39 PM EDT [facility] Table [facility] Comment: TOTAL [...] Time (Source) Location / Volume Laterality Blood specimen Venipuncture / 09/12/2019 11:57 020 (specimen) Unknown AM EDT 11:57 AM EDT Neal Breen MD LAB BLOOD ORDERABLES Performing Organization Address City/State/ZIP Code Phon e Number [facility] CLIA# [id number] [place] [address] [facility] [place] Hemoglobin A1C (09/12/2019 11:57 AM EDT) P athologist Signature HEMOGLOBIN A1C 5.5 <5.7 % 09/12/2019 [facility] 5:45 PM EDT [facility] Comment: Normal: ? Less than 5.7% Prediabetes: ??5.7% to 6.4% Diabetes: ? Greater than 6.4% eAG 111 MG/DL 09/12/2019 5:[address] [facility] eAG Comment 09/12/2019 5:45 PM EDT [facility] Comment: The [place] [employer] on has supported the use [...] Time (Source) Location / Volume Laterality Blood specimen Venipuncture / 09/12/2019 11:57 020 (specimen) Unknown AM EDT 11:57 AM EDT Neal Breen MD LAB BLOOD ORDERABLES Performing Organization Address City/State/ZIP Code Phon e Number [facility] CLIA# [id number] [place] [address] [facility] [place] documented in this encounter Visit Diagnoses Diagnosis Type 2 diabetes mellitus with hyperglyce jackelyn, without long-term current use of insulin (HCC) Hyperlipidemia associated with type 2 di abetes mellitus (HCC) Hypertension associated with diabetes (H CC) Unspecified essential hypertension documented in this encounter Care Teams Hvac Instructor Relationship Specialty Start Date End Date Neal Breen MD PCP - General Family Medicine 07/31/18 07/14/[address] [place] [phone] documented as of this encounter
--- OUTSIDE RECORDS SUMMARY | 2021-11-30 11:47 | XMS_ITS | Encounter Summary ---
:1955 Author Organization [facility] [place] [address] Care Team Providers Name Role Phone Neal Breen MD Primary Care Provider [phone] Encounter Details Date Type Department Care Team Description 06/03/2019 Orders Only Pulmonary & Critical Tr Martinez Moder ate obstructive Care - Matthieu Mendez PA-C sleep apnea ([facility] CENTER Dx) [place] [address] [phone] Social History Tobacco Use Types Packs/Day Years [...] ry documented in this encounter Care Teams Tail Ripper Relationship Specialty Start Date End Date Neal Breen MD PCP - General Family Medicine 07/31/18 07/14/[address] [place] [address] documented as of this encounter
--- OUTSIDE RECORDS SUMMARY | 2021-11-30 11:47 | XMS_ITS | Encounter Summary ---
:1955 Author Organization [facility] [place] [place] [address] Care Team Providers Name Role Phone Neal Breen MD Primary Care Provider Reason for Visit Reason Comments Back Pain Encounter Details Date Type Department Care Team Description 04/01/2020 Office Visit [facility] Neal Breen Back sp asm (Primary Network Family MD Miguel Dx) [address] [place] [id number] [phone] Social History Tobacco Use Types Packs/Day Years [...] Sign Reading Time Taken Comments Blood Pressure 130/80 04/01/2020 4:47 PM EST Pulse 60 04/01/2020 4:47 PM EST Temperature 36.5 ??C (97.7 ??F) 04/01/2020 4:47 PM EST Respiratory Rate 20 04/01/2020 4:47 PM EST Oxygen Saturation 95% 04/01/2020 4:47 PM EST Inhaled Oxygen Concentration - - Weight 110.7 kg (244 lb) 04/01/2020 4:47 PM EST Height 177.8 cm (5' 10) 04/01/2020 4:47 PM EST Body Mass Index 35.01 04/01/2020 4:47 PM EST documented in this encounter Functional [...] encounter Progress Notes Neal Breen MD - 04/01/2020 4:45 PM EST Chief Complaint Patient presents with ??? Back Pain HPI Back pain ~1 wk, notes he pulled it last week. no fall or injury. located mid back, started between shoulderblades and now mid thoracic. Pain feels crampy like spasm. Worsened by flexion/extension. no changes to bowel or bladder Review of Systems Constitutional: Negative for malaise/fatigue. Gastrointestinal: Negative for abdominal pain and diarrhea. Genitourinary: Negative for dysuria. Musculoskeletal: Positive for back pain and myalgias. Negative for falls. Neurological: Negative for weakness. Psychiatric/Behavioral: The patient is not nervous/anxious. Exam Vitals: 04/01/20 1647 BP: 130/80 Pulse: 60 Temp: 97.7 ??F (36.5 ??C) Resp: 20 SpO2: 95% PainSc: 4-Four (moderate) Body mass index is 35.01 kg/m??. Constitutional: Patient appears well-developed and well-nourished. No distress. Eyes: Conjunctivae are normal. Right eye exhibits no discharge. Left eye exhibits no discharge. No scleral icterus. Pulmonary/Chest: Effort normal. No respiratory distress. Musculoskeletal: Limited flexion and extension of L spine with palpable spasm of paraspinals Neurological: Alert. Coordination normal. Skin: No rash noted. Not diaphoretic. Assessment 1. Back spasm Plan Rx below. Counseled re: side effects. Call if not improving Orders Placed This Encounter Medications ??? tiZANidine (ZANAFLEX) 4 MG tablet Sig: Take 1 tablet (4 mg total) by mouth every 8 (eight) hours as needed for up to 10 days. Dispense: 20 tablet Refill: 0 Electronically signed by: Neal Breen MD 04/02/20 0995 Electronically signed by: Neal Breen MD 04/02/20 1510 documented in this encounter Plan of Treatment Not on filedocumented as of this encounter Visit Diagnoses Diagnosis Back spasm - Primary Other symptoms referable to back documented in this encounter Care Teams Circulation Sales Representative Relationship Specialty Start Date End Date Neal Breen MD PCP - General Family Medicine 07/31/18 07/14/[address] [place] [address] documented as of this encounter
--- OUTSIDE RECORDS SUMMARY | 2021-11-30 11:47 | XMS_ITS | Encounter Summary ---
:1955 Author Organization [facility] [place] [address] Care Team Providers Name Role Phone Neal Breen MD Primary Care Provider [phone] Reason for Visit Auth/Cert Specialty Diagnoses / Procedures Referred By Contact Refer red To Contact Diagnoses Dysuria Dysuria [R30.0] Procedures UT CYSTOSCOPY,DIR VIS INT URETHROTOMY CYSTOSCOPY W/ INTERNAL URETHROTOMY Referral ID Status Reason Start Date Expiration Date Visits Requ ested Visits Authorized [id number] 1 1 Encounter Details Date Type Department Care Team Description 03/29/2019 Anesthesia Event Surgical Services - [place] [address] [place], [place], [place] [id number] [facility] [place] [address] Anesthesia Record Procedure Summary Procedure Name Responsible Anesthesia Start Anesthesia Stop Anesthesiologist Time Time CYSTOSCOPY W/ Stanford Flores MD 03/29/19 1433 1522 INTERNAL URETHROTOMY (N/A Bladder) Events Date Time Event Comment 03/29/2019 1048 1433 An Start 1438 An Start Data 1443 An Induction 1445 An LMA 1447 Anesthesia Ready 1452 Anesthesia Handoff Crumb in for relief/Report received/VSS 1501 Proc Start/No Incision 1508 An Emergence 1511 LMR Spontaneous vent ilation without obstruction 1520 an stop data 1521 Post Proc Handoff I completed my handoff to the receiving nurse during which we: 1. Identified the patient 2. Identified the r esponsible provider 3. Reviewed the per tinent medical history 4. Discussed the ho rgical course 5. Reviewed intra-op anesthe daniel management and issues during anesthesi a 6. Set expectations for post-procedure p eriod 7. Allowed opportunity for questions an d acknowledgement of understanding. 1522 An Stop Name Total Midazolam (VERSED) 2 mg Fentanyl 0.05 mg/mL 50 mcg lidocaine (XYLOCAINE) injection PF (cardiac) 2 % 100 m g Ondansetron (ZOFRAN) 4 mg 4 mg Propofol Bolus 10 mg/ml 200 mg cefTRIAXone (ROCEPHIN) 1 g in sodium chloride 0.9 % 10 0 mL IVPB 1 g PHENYLephrine injection 100 mcg/mL 200 mcg Lactated Ringers 900 mL Agents Name O2 Air Blood No blood administrations on file. Lines, Drains, and Airways Type Details Placement Removal Airway 03/29/19; 1451 (created 03/29/19 1451 by Lorri via procedure Siddhartha Pathak, SOCIAL SERVICES TECHNICIAN documentation); LMA; 4.5 mm Incision 03/29/19; 1503; No; 03/29/19 1503 by Francisco Urethra; no wound Chava Ravi RN Peripheral IV 03/29/19; 1056; 20 G; 03/29/19 1056 by Christina [id number] by Left; Forearm; Alcohol; BERNARD Beckett Tolerated well; No BERNARD Hurst Urethral Catheter 03/29/19; 1517; 03/29/19 1517 by Jerree 0000 by Completed; Refer to BERNARD Styles foley catheter order; RN Completed; Completed; Completed; Completed; Completed; Non-latex; 30 Fr.; 1; Not present on arrival/admission documented in this encounter Social History Tobacco [...] Evaluation - William Ball II, MD - 03/29/2019 4:56 PM EST Anesthesia Post Evaluation Patient: Dario Mckeon Procedures performed: Procedure(s) (LRB): CYSTOSCOPY W/ INTERNAL URETHROTOMY (N/A) Last vitals: Vitals Value Taken Time BP 109/65 03/29/2019 3:40 PM Temp 97.1 ??F (36.2 ??C) 03/29/2019 3:40 PM Pulse Resp 18 03/29/2019 3:40 PM SpO2 92 % 03/29/2019 3:40 PM Final Anesthetic Type: General Patient Evaluation Location: PACU Patient Participation: Patient participated Level of Consciousness: awake and alert and oriented Pain Management: adequately controlled during entire PACU stay Nausea/Vomiting: None Post-op vitals signs: Stable Post op temperature: Normothermic Cardiovascular Status: hemodynamically stable Respiratory Status: Stable, room air, spontaneous Postoperative Hydration: adequately hydrated Post op disposition: [facility] Anesthetic Complications: no anesthesia complications noted Additional Comments: BS 70's and eating and drinking upon d/c Electronically signed by: William Ball II, MD 03/29/19 1989 Anesthesia Procedure Notes - Lorri Pathak CRNA - 03/29/2019 2:50 PM EST Associated Order(s): Anesthesia Airway Anesthesia Airway Urgency: elective Airway not difficult General Information and Staff Patient location during procedure: OR Anesthesiologist: LANDON TorreRNA: Lorri Pathak CRNA Indications and Patient Condition Indication for airway management: anesthesia Preoxygenated: yes Patient position: sniffingRapid sequence induction: NoNoManual in-line stabilization not maintained throughout. Mask difficulty assessment: 0 - not attempted Final Airway Details Final airway type: supraglottic airway Supraglottic airway type: air-Q Supraglottic airway size 4.5 Airway Seal Pressure (cm H2O): 20 Number of attempts at approach: 1 Number of other approaches attempted: 0 Airway placement trauma: none Electronically signed by: Lorri Pathak CRNA 03/29/19 1451 Anesthesia Preprocedure Evaluation - Stanford Flores MD - 03/29/2019 10:47 AM EST DAY OF SURGERY PREOPERATIVE EVALUATION Dario Mckeon ( ) : 1955 PROCEDURE PLANNED He is a 63 y.o. male scheduled for a Procedure(s) (LRB): CYSTOSCOPY W/ INTERNAL URETHROTOMY (N/A). PLAN/ATTENDING ATTESTATION PLAN: ASA Score: 3 Maintenance plan options discussed:general/LMA Induction: IV Post Op Plan: Outpatient PACU ATTESTATION: ???I have perfomed my preanesthesia assessment [...] with this patient or the patient???slegal field service representative. I have discussed the anesthetic plan with the Pony Roll Finisher and/or SOCIAL SERVICES TECHNICIAN and/or SRNA prior to initiating this anesthetic. Electronically signed by: Stanford Flores MD Date: 03/29/2019 Time: 10:48 AM Electronically signed by: Stanford Flores MD 03/29/19 1048 documented in this encounter Miscellaneous Notes Transfer of Care - Ally Villarreal CRNA - 03/29/2019 3:22 PM EST PACU-patient to recovery room/spontaneous ventilation without obstruction/responding to commands/VSS/Report to Bernard Neri Electronically signed by: Ally Villarreal CRNA 03/29/19 1522 [facility] Pre-procedure H&P - Aditya Kimble PA-C - 03/22/2019 8:29 AM EST [facility] H[facility]P EVALUATION Encounter Date: 03/22/19 PROCEDURE PLANNED Dario Mckeon ([id number]) is a 63 y.o. male scheduled for a Procedure(s) (LRB): CYSTOSCOPY W/ INTERNAL URETHROTOMY (N/A) on 03/29/2019 with Surgeon(s): Fady Ndiaye MD. HPI: has a past medical history of Acute CVA (cerebrovascular accident) (HCC) (09/16/2017), Arthritis, Cancer (HCC), Diabetes mellitus (HCC), Hyperlipemia, Hypertension, Ruptured appendix, and Tachycardia. ASSESSMENT AND PLAN Anesthesia History: Denies problems with anesthesia. Denies PONV. Denies family h/o AC. records available for review. 2017 partial knee- 7.0 mil 2 [id number] Surgical History: Past Surgical History: Procedure Laterality Date ??? APPENDECTOMY ??? JOINT REPLACEMENT left knee replacement ??? LUMBAR / THORACIC MEDIAL BRANCH BLOCK N/A 08/02/2017 Procedure: LUMBAR/THORACIC MEDIAL BRANCH BLOCK (Right L2-5); Surgeon: Petr Brito MD; Location: [facility]; Service: Rehab Medicine; Laterality: N/A; ??? LUMBAR / THORACIC MEDIAL BRANCH BLOCK Right 08/15/2017 Procedure: LUMBAR/THORACIC MEDIAL BRANCH BLOCK - Right L2-L5; Surgeon: Neptali Toledo MD; Location: [address] [facility]; Service: Anes Physiatry; Laterality: Right; ??? ROBOTIC YOUSIF UNICOMPARTMENTAL KNEE REPLACEMENT Left 11/01/2016 Procedure: MEDIAL YOUSIF - UNICOMPARTMENTAL KNEE REPLACEMENT - ROBOTIC; Surgeon: Miguelito Manuel MD; Location: OUTPATIENT OR; Service: Orthopedics; Laterality: Left; ??? SKIN BIOPSY Assessment of Medical Problems: Body mass index is 34.19 kg/m??. Blood pressure 131/77, pulse 82, temperature 98 ??F (36.7 ??C), temperature source Tympanic, resp. rate 18, height 1.778 m (5' 10), weight 108.1 kg (238 lb 4 oz), SpO2 97 %. 1. CARDIAC -- HTN: controlled , continue metoprolol, ; -- HLD: continue statin -- No h/o CAD or Heart Dz.Hx atrial flutter. S/P ablation in [place]. Continued Atrial tachycardia. Controlled with meds. Continue Tambocor, metoprolol. Pt denies recent CP , SHOB , palps . Did not tolerate Plavix. Developed sub arachnoid hemorrhage. ECG SR, LAD 2014, per records. TTEPROCEDURE Study Quality: Technically adequate. Bubble study performed to evaluate for possible shunt. SUMMARY Normal LV systolic function. Diastolic dysfunction. No significant valvular disease. Intact interatrial septum by saline contrast. No prior. FINDINGS: ?? LEFT VENTRICLE The left ventricular size is normal. There is normal left ventricular wall thickness. Left ventricular systolic function is normal. LV ejection fraction = 55-60%. Left ventricular filling pattern is impaired relaxation. No segmental wall motion abnormalities seen in the left ventricle. 2. RESPIRATORY -- Pt denies h/o acute or chronic lung dz. MARTA no hx DOISNORE score 5 Declined sleep referral. 3. NEURO -- Pt denies h/o CVA, TIA, seizures.Short term memory issues. Continue meds. Family hx of dementia. 4. 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 Ws given ketoconazole for rash on upper back 5. GI -- Pt denies h/o acute or chronic GI dz 6. / RENAL/ HEPATIC CKD- no hx -- Pt denies si/sx of recent UTI Hepatitis no hx 7. MUSCULOSKELETAL -- h/o arthritis, lumbar back pain , 8. HEENT -- Pt denies recent si/sx of the flu/cold -- Allergic Rhinitis: hold PO meds DOS 9. ENDO/HEME -- Pt denies h/o , Hypothyroidism, or Anemia -- DMT: Pt's last A1C was 5.9 -- Hypothyroidism: continue thyroid med DOS; dose is stable w/o recent changes 10. PSYCH -- Pt denies -- Anxiety/Depression: HPI 2015 59yo man with a history of right sided atrial tachycardia , s/p successful atrial flutter ablation and unsuccessful AT ablation maintained on flecainide 100mg BID. He has been doing well, with no recurrent arrhythmias except when he missed a dose. His ECG and labs are stable from the perspective of flecainide follow up, however he never underwent repeat stress testing as requested by Dr. Johns at his visit in 05/2013. He recently started a new job at [employer] after retiring from [employer]. Patient Active Problem List Diagnosis Code ??? Chest pain R07.9 ??? Scoliosis M41.9 ??? SVT (supraventricular tachycardia) I47.1 ??? Anxiety F41.1 ??? Plantar fasciitis M72.2 Assessment and Plan: 59yo man with hx multiple right sided AT at EPS, maintained on flecainide 100mg BID and metoprolol. He is doing well, without recurrence, except when he has missed a flecainide dose. Will schedule nuclear stress (offered [facility] or [facility] - he will do it here) and EP climic follow up in six months with 12 lead EKG, CHEM7, LFTs with me or Dr. Johns. Provider: TAQUERIA Solis Provider#: [id number] Consult attending physician: Jose Francisco Morales MD Diagnostics pending: No ECG 01/2019 SR, LAD no change. For a complete list of medication instructions, please see AVS [place] Activity Status Index: DASI Total Score: 31.45 DASI METs: 6.61 Anesthesia Plan/Consents: ASA Score: 3 Maintenance plan options discussed: general, ETT and LMA Patient educated about: NPO status, Insulin/oral hypoglycemic for morning of surgery, Need for responsible driver service technician, Need for 24 hr supervision for outpatient surgery, Bringing ID and Medications on the morning of surgery Anesthesia Consent: Plan discussed with patient. Blood product consent: Use of blood products discussed with patient. Consented to blood products. PAC Attestation: Supervised by Dr. Flores. HISTORY/ROS/OBJECTIVE Active Problem list: Patient Active Problem List Diagnosis Date Noted ??? Dysuria 03/11/2019 Overview Note: Added automatically from request for surgery [id number] ??? Nontraumatic complete tear of left rotator cuff 12/23/2018 ??? Moderate episode of recurrent major depressive disorder (HCC) 12/14/2018 ??? Tendinopathy of left rotator cuff 06/28/2018 ??? Primary osteoarthritis of right knee 11/02/2017 ??? Mixed hyperlipidemia 09/18/2017 ??? Spondylosis without myelopathy or radiculopathy, lumbar region 09/13/2017 Overview Note: Added automatically from request for surgery [id number] ??? Lumbar facet arthropathy 08/09/2017 Overview Note: Added automatically from request for surgery [id number] ??? Effusion of knee 08/07/2017 ??? History of partial knee replacement 05/10/2017 ??? Spondylosis of lumbosacral region without myelopathy or radiculopathy 04/25/2017 Overview Note: Added automatically from request for surgery [id number] ??? Joint stiffness of spine ??? S/P left unicompartmental knee replacement 11/15/2016 ??? Status post left partial knee replacement ??? Decreased range of motion of left knee ??? Weakness of both lower extremities ??? Gait abnormality ??? Type 2 diabetes mellitus with hyperglycemia (HCC) 10/17/2016 ??? Essential hypertension 10/17/2016 ??? Tachycardia 10/17/2016 ??? Arthritis of knee 08/26/2016 ??? DDD (degenerative disc disease), lumbar 08/17/2016 ??? Spondylosis of lumbar region without myelopathy or radiculopathy 08/17/2016 ??? Chronic bilateral low back pain with right-sided sciatica 07/28/2016 ??? Primary osteoarthritis of left knee 07/28/2016 ??? Primary osteoarthritis of both knees 04/25/2016 ??? Left knee pain 04/25/2016 Past Medical History: Past Medical History: Diagnosis Date ??? Acute CVA (cerebrovascular accident) (HCC) 09/16/2017 ??? Arthritis ??? 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 Diabetes mellitus (HCC) ??? Hyperlipemia ??? Hypertension ??? Ruptured appendix ??? Tachycardia Social History: Social History Tobacco Use ??? Smoking status: Former Smoker Types: Cigarettes Last attempt to quit: 04/16/1989 Years since quittin.9 ??? Smokeless tobacco: Never Used Substance Use Topics ??? Alcohol use: Yes Comment: occasional beer Family History: Family History Problem Relation Age of Onset ??? Hypertension Mother ??? Alzheimer's disease Mother ??? Heart disease Mother ??? Kidney disease Mother ??? Diabetes Father ??? Heart disease Father ??? Alzheimer's disease Father ??? Alcohol abuse Brother ??? Alzheimer's disease Maternal Aunt ??? Alzheimer's disease Maternal Grandmother ??? Cancer Paternal Grandmother ??? Cancer Paternal Grandfather ??? Stroke Neg Hx ROS: HENT: Positive for congestionand. Cardiovascular: Exercise Tolerance: 5-6 METS Positive for no chest pain, no palpitations, no orthopnea, no PND. Respiratory: Negative. Musculoskeletal: Positive for back pain, joint pain, neck pain. Endo/Heme/Allergies: Positive for environmental allergies. Psychiatric/Behavioral: Positive for memory loss. Vitals: Vitals: 03/22/19 1052 BP: 131/77 Pulse: 82 Temp: 98 ??F (36.7 ??C) Resp: 18 SpO2: 97% PainSc: 0-Zero Weight: 108.1 kg (238 lb 4 oz) Height: 1.778 m (5' 10) Physical Exam: Constitutional: well-developed, well-nourished, Airway: Mallampati Score: II TM Distance (FB): 3 Oral Aperture (FB): 3 Face: ornelas and normal Neck: full ROM Dental: normal Cardiovascular: Normal rate, regular rhythm. Pulmonary/Chest: Effort normal and breath sounds normal. Allergies: Allergies Allergen Reactions ??? Morphine Anaphylaxis (ALLERGY) ??? Sulfamethoxazole Anaphylaxis (ALLERGY) ??? Sulfasalazine Itching / Pruritis (ALLERGY/intolerance) ??? Codeine Phosphate Urticaria / Hives (ALLERGY) ??? Pollen Extracts Other (See Comments) Runny nose Medications: Current Outpatient Medications: ??? ascorbic acid, vitamin C, (VITAMIN C) 500 MG tablet, Take 500 mg by mouth every morning., Disp: , Rfl: ??? atorvastatin (LIPITOR) 20 MG tablet, Take 20 mg by mouth daily., Disp: , Rfl: ??? DEXT 70/POLYCARBOPHIL/PEG/NACL (ARTIFICIAL TEAR SOLUTION OPHT), Place 1 drop into both eyes as needed., Disp: , Rfl: ??? donepezil (ARICEPT) 10 MG tablet, Take 10 mg by mouth daily., Disp: , Rfl: ??? flecainide (TAMBOCOR) 100 MG tablet, Take 1 tablet (100 mg total) by mouth 2 times daily., Disp:180 tablet, Rfl: 3 ??? fluticasone (FLONASE) 50 mcg/actuation nasal spray, 2 sprays by Each Nare route daily as needed., Disp: , Rfl: ??? ketoconazole (NIZORAL) 2 % shampoo, Use to wash affected area of back daily for 2 weeks, then use once weekly, Disp: , Rfl: ??? loratadine (CLARITIN) 5 mg chewable tablet, Take 5 mg by mouth daily as needed. , Disp: , Rfl: ??? memantine 28 mg [...] capsule by mouth daily., Disp: , Rfl: Labs: Lab Results Component Value Date WBC 6.9 01/12/2019 HGB 13.1 (L) 01/12/2019 HCT 39.9 (L) 01/12/2019 PLT 268 01/12/2019 Lab Results Component Value Date NA 141 01/12/2019 K 3.7 01/12/2019 CL 108 01/12/2019 CO2 24 01/12/2019 CREATININE 0.97 01/12/2019 GLU 121 (H) 01/12/2019 CALCIUM 9.2 01/12/2019 PROT 6.6 01/03/2019 ALBUMIN 3.8 01/03/2019 BILITOT 0.9 01/03/2019 AST 23 01/03/2019 ALT 22 01/03/2019 Lab Results Component Value Date HBA1C 5.9 (H) 01/03/2019 HBA1C 6.4 (H) 07/31/2018 Lab Results Component Value Date INR 0.91 09/16/2017 No results found for: TSH Electronically signed by: Aditya Kimble PA-C 03/22/19 1757 documented in this encounter Plan of Treatment Not on filedocumented as of this encounter Procedures Procedure Name Priority Date/Time Associated Diagnosis Comme nts ANESTHESIA LMA Routine 03/29/2019 2:50 PM Results for this EST procedure are i n the results section . documented in this encounter Results ANESTHESIA LMA (03/29/2019 2:50 PM EST) Narrative Lorri Pathak, ANCELMO - 03/29/2019 2:50 PM EST Lorri Pathak CRNA ? 03/29/2019 ??2:51 PM Anesthesia Airway Urgency: elective Airway not difficult General Information and Staff Patient location during procedure: OR Anesthesiologist: LANDON TorreRNA: Lorri Pathak CRNA Indications and Patient Condition Indication for airway management: anesth esia Preoxygenated: yes Patient position: sniffingRapid sequence induction: NoNoManual in-line stabilization not maintained throughout. Mask difficulty assessment: 0 - not atte mpted Final Airway Details Final airway type: supraglottic airway Supraglottic airway type: air-Q Supraglottic airway size 4.5 Airway Seal Pressure (cm H2O): 20 Number of attempts at approach: 1 Number of other approaches attempted: 0 Airway placement trauma: none Fady Ndiaye MD [facility] documented in this encounter Visit Diagnoses Not on filedocumented in this encounter Administered Medications Inactive Administered Medications - up to 3 most recent administrations Medication Order MAR Action Action Date Dose Rate Site cefTRIAXone (ROCEPHIN) 1 g in sodium New Bag 03/29/2019 2:52 PM ES T 1 g chloride 0.9 % 100 mL IVPB Intra-op continuous PRN, Intravenous, Administer over 30 Minutes, Starting on Mon03/29/19 at 1452, Anesthesia Intra-op fentaNYL (SUBLIMAZE) injection Given 03/29/2019 2:35 PM EST 50 mcg Intra-op PRN, Intravenous, Starting on Mon03/29/19 at 1435, Anesthesia Intra-op lactated ringers infusion New Bag 03/29/2019 2:33 PM EST Intra-op continuous PRN, Starting on Mon03/29/19 at 1433, Anesthesia Intra-op lidocaine (PF) (XYLOCAINE) 20 mg/mL (2 %) Given 03/29/2019 2:43 PM EST 100 mg injection Intra-op PRN, Starting on Mon03/29/19 at 1443, Anesthesia Intra-op midazolam (VERSED) injection Given 03/29/2019 2:35 PM EST 2 mg Intra-op PRN, Starting on Mon03/29/19 at 1435, Anesthesia Intra-op ondansetron (ZOFRAN) injection Given 03/29/2019 3:17 PM EST 4 mg Intra-op PRN, Starting on Mon03/29/19 at 1517, Anesthesia Intra-op PHENYLephrine HCl in 0.9% NaCl Given 03/29/2019 2:58 PM EST 200 mcg (SONNY-SYNEPHRINE) 1 mg/10 mL (100 mcg/mL) IV syringe Intra-op PRN, Starting on Mon03/29/19 at 1458, Anesthesia Intra-op propofol (DIPRIVAN) bolus 10 mg/mL Given 03/29/2019 2:43 PM EST 200 mg Intra-op PRN, Intravenous, Starting on Mon03/29/19 at 1443, Anesthesia Intra-op documented in this encounter Care Teams Rivet Hammer Machine Operator Relationship Specialty Start Date End Date Neal Breen MD PCP - General Family Medicine 07/31/18 07/14/21 [address] [place] [address] documented as of this encounter
--- OUTSIDE RECORDS SUMMARY | 2021-11-30 11:47 | XMS_ITS | Encounter Summary ---
:1955 Author Organization [facility] [place] [address] Care Team Providers Name Role Phone Neal Breen MD Primary Care Provider [phone] Reason for Visit Reason Onset Date Comments [facility] 07/17/2019 Encounter Details Date Type Department Care Team Description 07/17/2019 Telephone Sleep Lab - Main Flr Mateo Gomes, [place] [facility] [place] [address] [place], [place] [address] [phone] Social History Tobacco Use Types Packs/Day Years [...] Telephone Encounter - Kaley Gomes MT - 07/17/2019 11:39 AM EDT Per Екатерина at [facility], this order must have gotten lost during the merger with [employer] but she is pulling it today and processing it. Electronically signed by: Kaley Gomes MT 07/17/19 1142 documented in this encounter Plan of Treatment Not on filedocumented as of this encounter Visit Diagnoses Not on filedocumented in this encounter Care Teams Clerk Relationship Specialty Start Date End Date Neal Breen MD PCP - General Family Medicine 07/31/18 07/14/[address] [place] [address] documented as of this encounter
--- OUTSIDE RECORDS SUMMARY | 2021-11-30 11:47 | XMS_ITS | Encounter Summary ---
:1955 Author Organization [facility] [place] [address] Care Team Providers Name Role Phone Neal Breen MD Primary Care Provider [phone] Encounter Details Date Type Department Care Team Description 03/16/2020 Travel Social History Tobacco Use Types Packs/Day [...] on filedocumented in this encounter Care Teams Certified Social Workers In Health Care Relationship Specialty Start Date End Date Neal Breen MD PCP - General Family Medicine 07/31/18 07/14/[address] [place] [address] documented as of this encounter
--- OUTSIDE RECORDS SUMMARY | 2021-11-30 11:47 | XMS_ITS | Encounter Summary ---
:1955 Author Organization [facility] [place] [address] Care Team Providers Name Role Phone Neal Breen MD Primary Care Provider [phone] Encounter Details Date Type Department Care Team Description 11/20/2019 Travel Social History Tobacco Use Types Packs/Day [...] on filedocumented in this encounter Care Teams Riverboat Master Relationship Specialty Start Date End Date Neal Breen MD PCP - General Family Medicine 07/31/18 07/14/[address] [place] [address] documented as of this encounter
--- OUTSIDE RECORDS SUMMARY | 2021-11-30 11:47 | XMS_ITS | Encounter Summary ---
:1955 Author Organization [facility] [place] [place] [address] Care Team Providers Name Role Phone Neal Breen MD Primary Care Provider [phone] Reason for Visit Surgical (Routine) - Closed Specialty Diagnoses / Procedures Referred By Contact Refer red To Contact General Surgery Diagnoses Positive colorectal cancer screening using Cologuard test Neal Breen, Lmp[facility] Surgery-Jennifer DELGADO [address] [place] [address] [address] [place] [address] [place] [address] Referral ID Status Reason Start Date Expiration Date Visits V isits Requested Authorized [id number] Closed Specialty 04/14/2020 04/14/2021 1 1 Services Required Encounter Details Date Type Department Care Team Description 04/20/2020 Office Visit Mckay Villar for screening colonoscopy (Primary Dx); Associates - MD Victor M Positive colorectal cancer screening usi ng Cologuard test [id number] [place] [address] [phone] Social History Tobacco Use Types Packs/Day Years [...] you been in contact with Yes 04/20/2020 9:32 AM EST someone who was confirmed or [...] documented as of this encounter Progress Notes Mckay Sanz MD - 04/20/2020 9:30 AM [...] INTERNAL URETHROTOMY; Surgeon: Fady Ndiaye MD; Location: [facility]; Service: Urology; Laterality: N/A; ??? JOINT REPLACEMENT left knee replacement ??? LUMBAR / THORACIC MEDIAL BRANCH BLOCK N/A 08/02/2017 Procedure: LUMBAR/THORACIC MEDIAL BRANCH BLOCK (Right L2-5); Surgeon: Petr Brito MD; Location: [facility]; Service: Rehab Medicine; Laterality: N/A; ??? LUMBAR / THORACIC MEDIAL BRANCH BLOCK Right 08/15/2017 Procedure: LUMBAR/THORACIC MEDIAL BRANCH BLOCK - Right L2-L5; Surgeon: Neptali Toledo MD; Location: [address] [facility]; Service: [facility] Phys[facility]; Laterality: [...] file Gets together: Not on file Attends protestant service: Not on file Active member of [...] Cancer Paternal Grandfather ??? 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 Review of [...] telemedicine encounter with the present provider at [facility]. The patient/authorized person was informed of the [...] signed by: Mckay Sanz MD 04/20/20 1004 documented in this encounter Plan of Treatment Not on filedocumented as of this encounter Visit Diagnoses Diagnosis Encounter for screening colonoscopy - Pr imary Positive colorectal cancer screening usi ng Cologuard test documented in this encounter Additional Health Concerns Infection Onset Date Last Indicated Resolved Time R/O COVID-19 04/20/2020 04/20/2020 04/20/2020 4:41 PM EST documented as of this encounter Care Teams Tab Cutting Machine Operator Relationship Specialty Start Date End Date Neal Breen MD PCP - General Family Medicine 07/31/18 07/14/[address] [place] [address] documented as of this encounter
--- OUTSIDE RECORDS SUMMARY | 2021-11-30 11:47 | XMS_ITS | Encounter Summary ---
:1955 Author Organization [facility] [place] [address] Care Team Providers Name Role Phone Neal Breen MD Primary Care Provider [phone] Reason for Visit Reason Onset Date Comments Back Pain 04/03/2020 Encounter Details Date Type Department Care Team Description 04/03/2020 Telephone [facility] Neal Barlow MD Back Pain Family Medicine [address] [place] [address] [place] [address] [phone] Social History Tobacco Use Types Packs/Day Years [...] Telephone Encounter - Susy Meade CMA - 04/06/2020 1:48 PM EST Patient notified of instructions per and patient verbally understands. Electronically signed by: Susy Meade CMA 04/06/20 1348 Telephone Encounter - Bess Morin - 04/06/2020 1:32 PM EST Patient is returning a phone call from Susy. Patient states that the pharmacy just called to advise that they received a prescription for the same medicine that he called and said he could not take. Call back# [phone] Telephone Encounter - Jacinta Llanos - 04/06/2020 12:56 PM EST Patient is returning a missed phone call from Nataliia Please call back at [phone] Telephone Encounter - Susy Meade CMA - 04/06/2020 12:23 PM EST Left message to return call. Electronically signed by: Susy Meade CMA 04/06/20 1224 Telephone Encounter - Neal Breen MD - 04/06/2020 9:59 AM EST Stop the tizanidine. Would instead use the naproxen. If he needs refills ok to send. Electronically signed by: Neal Breen MD 04/06/20 1001 Telephone Encounter - Hillary Rojas - 04/03/2020 1:51 PM EST Patient is checking status of message and is requesting a call back to advise. [phone] Telephone Encounter - Fausto Blackwell - 04/03/2020 9:58 AM EST Patient calling states he was seen on 04/01 for back pain. States he took a tizanidine that night and was able to sleep through the night. States yesterday he woke up and took one and it knocked him out, stating he slept most of the day. States its not helping with the pain, just makes him tired. Says when he takes a deep breath he experiences a very sharp shooting pain. Wants to know if there is something else that he can take. States his previous provider prescribed steroids. Patient is ok with being seen again if required. [facility] [phone] Please advise Callback# [phone] documented in this encounter Plan of Treatment Not on filedocumented as of this encounter Visit Diagnoses Not on filedocumented in this encounter Care Teams Manager Reading Relationship Specialty Start Date End Date Neal Breen MD PCP - General Family Medicine 07/31/18 07/14/[address] [place] [address] documented as of this encounter
--- OUTSIDE RECORDS SUMMARY | 2021-11-30 11:47 | XMS_ITS | Encounter Summary ---
:1955 Author Organization [facility] [place] [address] Care Team Providers Name Role Phone Neal Breen MD Primary Care Provider [phone] Reason for Visit Reason Comments Diabetes Hypertension Hyperlipidemia Encounter Details Date Type Department Care Team Description 09/12/2019 Office Visit [facility] Neal Breen episode of recurrent major depressive disorder (HCC) (Primary Dx); Network Family Miguel MD Type 2 diabetes mellitus with hyperglyce jackelyn, without long-term current use of insulin (HCC); [facility] [place] [facility] Hyperlipidemia associated wi th type 2 diabetes mellitus (HCC); [facility] Hypertension associated with diabetes (H CC) [place] [phone] Social History Tobacco Use [...] Sign Reading Time Taken Comments Blood Pressure 123/75 09/12/2019 11:35 AM EDT Pulse 57 09/12/2019 11:35 AM EDT Temperature 36.7 ??C (98 ??F) 09/12/2019 11:35 AM EDT Respiratory Rate 18 09/12/2019 11:35 AM EDT Oxygen Saturation 97% 09/12/2019 11:35 AM EDT Inhaled Oxygen Concentration - - Weight 109.8 kg (242 lb) 09/12/2019 11:35 AM EDT Height 180.3 cm (5' 11) 09/12/2019 11:35 AM EDT Body Mass Index 33.75 09/12/2019 11:35 AM EDT documented in this encounter Functional [...] encounter Progress Notes Neal Breen MD - 09/12/2019 11:15 AM EDT Chief Complaint Patient presents with ??? Diabetes ??? Hypertension ??? Hyperlipidemia S: Patient is here today for followup of depression, DM2, Hypertension, Hyperlipidemia: Is concerned about his depression. Notes with his memory issues there are near constant issues with significant other at home becoming frustrated with him. He notes he is taking the wellbutrin 2x dailywhich helps a little DM2 has been a problem for years. Severity today is very mild and last a1c noted below- is improved with metformin - not missing any doses - no side effects reported at this time. 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 Today severity is well controlled with BP noted below It is improved by medications: metoprolol, flecainide- keeping up with medication regimen - not missing doses - denies any medication side effects. Pt denies chest pain, palpitations. Hyperlipidemia - cholesterol has been a problem for years. It is improved by medications: atorvastatin - adhering to medication regimen and no side effects reported. ROS Gen: no fevers Resp: no shortness of breath CV: no chest pain or palpitations MSK: no falls or myalgias Past Medical History: Diagnosis Date ??? Acute CVA (cerebrovascular accident) (HCC) 09/16/2017 ??? Arthritis ??? 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 Diabetes mellitus (HCC) ??? Hyperlipemia ??? Hypertension ??? Ruptured appendix ??? Tachycardia O: Vitals: 09/12/19 1135 BP: 123/75 Pulse: 57 Temp: 98 ??F (36.7 ??C) Resp: 18 SpO2: 97% Constitutional: Patient appears well-developed and well-nourished. No distress. Eyes: Conjunctivae are normal. Right eye exhibits no discharge. Left eye exhibits no discharge. No scleral icterus. Pulmonary/Chest: Effort normal. No respiratory distress. Neurological: Alert. Coordination normal. Skin: No rash noted. Not diaphoretic. No erythema. Psychiatric: Patient has a normal mood and affect. Behavior is normal. Lab Results Component Value Date HBA1C 5.5 09/12/2019 Lab Results Component Value Date CHOL 109 09/12/2019 TRIG 181 (H) 09/12/2019 HDL 38 09/12/2019 LDL 50 09/12/2019 A: 1. Moderate episode of recurrent major depressive disorder (HCC) 2. Type 2 diabetes mellitus with hyperglycemia, without long-term current use of insulin ([facility]) Hemoglobin A1C Albumin, Urine 3. Hyperlipidemia associated with type 2 diabetes mellitus ([facility]) LIPID PROFILE 4. Hypertension associated with diabetes ([facility]) Basic Metabolic Panel P: 1. MDD - changing his wellbutrin to SR since he was only taking it BID, this will effectively increase his dose and hopefully more completely cover him throughout the day 2. DM2 - chronic, stable. Labs as above 3. HLD - continue statin. Checking lipids today 4. HTN - chronic, stable. Considered ACEi/ARB given his DM however BP excellent today and I wouldn'twant to add on further Rx. Orders Placed This Encounter Medications ??? buPROPion SR (WELLBUTRIN SR) 150 MG 12 hr tablet Sig: Take 1 tablet (150 mg total) by mouth 2 times daily. Dispense: 180 tablet Refill: 5 Electronically signed by: Neal Breen MD 09/13/19 1001 documented in this encounter Plan of Treatment Not on filedocumented as of this encounter Procedures Procedure Name Priority Date/Time Associated Diagnosis Comme nts ALBUMIN, URINE Routine 09/12/2019 12:06 PM Type 2 diabetes Res ults for this EDT mellitus with procedure are in the hyperglycemia, results secti on. without long-term current use of insulin (HCC) documented in this encounter Results Albumin, Urine (09/12/2019 12:06 PM EDT) [facility] gist Method Time Signature Urine Albumin 8 MG/L 09/12/2019 [facility] Con[facility] 4:44 PM EDT [facility] U Creatinine 147 MG/DL [facility]44 PM T [facility] U Albumin/G 5 0 - 30 mg/G 09/12/2019 [facility] Creatinine CREATININE 4:44 PM T [facility] U Interval Random 09/12/2019 [facility] 4:44 PM EDT [facility] U Volume 20 ML 09/12/2019 [facility] 4:44 PM EDT [facility] U Protein 11 MG/DL 09/12/2019 [facility] Concent[facility] 4:44 PM T [facility] Specimen Anatomical Collection Method Collection Time Receive d Time (Source) Location / / Volume Laterality Urine specimen 09/12/2019 12:06 0 (specimen) PM EDT 12:06 PM EDT Neal Breen MD URINE ORDERABLES Performing Organization Address City/State/ZIP Code Phon e Number [facility] CLIA# [id number] [place] [address] [facility] (ABNORMAL) Basic Metabolic Panel (09/12/2019 11:57 AM EDT) P athologist Signature Sodium 141 135 - 146 09/12/2019 [place] [facility] MMOL/L 4:39 PM EDT [facility] Potassium 4.0 3.5 - 5.3 09/12/2019 [place] [facility] MMOL/L 4:39 PM EDT [facility] Comment: NO VISIBLE HEMOLYSIS Chloride 108 98 - 110 MMOL/L 09/12/2019 4:39 PM [place] [facility] PTIST EDT [facility] CO2 27 23 - 30 MMOL/L 09/12/2019 4:39 PM [place] [facility] EDT [facility] BUN 19 8 - 24 MG/DL 09/12/2019 4:[address] EDT [facility] Glucose 118 (H) 70 - 99 MG/DL 09/12/2019 4:39 PM [place] [facility] EDT [facility] Creatinine 1.10 0.50 - 1.50 09/12/2019 4:[address] MG/DL EDT [facility] Calcium 9.1 8.5 - 10.5 MG/DL 09/12/2019 4:39 PM [place] [facility] Anion Gap 6 4 - 14 MMOL/L 09/12/2019 4:39 PM [place] [facility] EDT [facility] Est. GFR Non- 71 >=60 ML/MIN/1.73 09/12/2019 4 :39 PM [facility] [place] [facility]*2 T [facility] Comment: GFR estimated by CKD-EPI equati ons, reportable up to 90 ML/MIN/1.73 M*2 Specimen Anatomical Collection Method / Collection Time Recei ericka Time (Source) Location / Volume Laterality Blood specimen Venipuncture / 09/12/2019 11:57 020 (specimen) Unknown AM EDT 11:57 AM EDT Neal Breen MD LAB BLOOD ORDERABLES Performing Organization Address City/State/ZIP Code Phon e Number [facility] CLIA# [id number] [place] [address] PATH[facility]S [facility] (ABNORMAL) LIPID PROFILE (09/12/2019 11:57 AM EDT) [facility] Method Time Signature LDL Direct 50 <130 09/12/2019 [place] [facility] mg/dL 4:39 PM EDT [facility] Total Cholesterol 109 25 - 199 09/12/2019 [place] [facility] MG/DL 4:39 PM [facility] Triglycerides 181 (H) 10 - 150 09/12/2019 [place] [facility] MG/DL 4:39 PM [facility] HDL Cholesterol 38 35 - 135 09/12/2019 [place] [facility] MG/DL 4:39 PM [facility] Total Chol / HDL 2.9 <4.5 09/12/2019 [place] [facility] Cholesterol 4:39 PM [facility] Non-HDL 71 MG/DL 09/12/2019 [place] [facility] Cholesterol 4:39 PM [facility] Comment: TARGET: <(LDL-C TARGET + 30)MG /DL Coronary Heart Disease Risk 09/12/2019 4 :39 PM EDT [facility] Table [facility]S Comment: TOTAL CHOLESTEROL/HDL RATIO:CHD [...] MD LAB BLOOD ORDERABLES Performing Organization Address City/[facility]/ZIP Code Phon e Number [facility] CLIA# [id number] [place] [address] [facility] Hemoglobin A1C (09/12/2019 11:57 AM EDT) athologist Signature HEMOGLOBIN A1C 5.5 <5.7 % 09/12/2019 [facility] 5:45 PM EDT [facility] Comment: Normal: ? Less than 5.7% Prediabetes: ??5.7% to 6.4% Diabetes: ? Greater than 6.4% eAG 111 MG/DL 09/12/2019 5:45 PM EDT [facility] eAG Comment 09/12/2019 5:45 PM EDT [facility] Comment: The [place] [employer] on has supported the use [...] MD LAB BLOOD ORDERABLES Performing Organization Address City/[facility]/ZIP [facility] Phon e Number [facility] CLIA# [id number] [place] [address] [facility] documented in this encounter Visit Diagnoses Diagnosis Moderate episode of recurrent major depr essive disorder (HCC) - Primary Type 2 diabetes mellitus with hyperglyce jackelyn, without long-term current use of insulin (HCC) Hyperlipidemia associated with type 2 di abetes mellitus (HCC) Hypertension associated with diabetes (H CC) Unspecified essential hypertension documented in this encounter Care Teams Balancing Machine Set Up Worker Relationship Specialty Start Date End Date Neal Breen MD PCP - General Family Medicine 07/31/18 07/14/[address] [place] [address] documented as of this encounter
--- OUTSIDE RECORDS SUMMARY | 2021-11-30 11:48 | XMS_ITS | Encounter Summary ---
:1955 Author Organization [facility] [place] [address] Care Team Providers Name Role Phone Neal Breen MD Primary Care Provider [phone] Encounter Details Date Type Department Care Team Description 03/11/2019 Orders Only Urology - Fady Crane Dysuria (Primary Dx) [address] [place] [address] Dr Nas MD [address] [address] [place] [phone] [facility] [place] [address] (Wo rk) Social History [...] as of this encounter Visit Diagnoses Diagnosis Dysuria - Primary documented in this encounter Care Teams Auto Parts Manager Relationship Specialty Start Date End Date Neal Breen MD PCP - General Family Medicine 07/31/18 07/14/[address] [place] [address] documented as of this encounter
--- OUTSIDE RECORDS SUMMARY | 2021-11-30 11:48 | XMS_ITS | Encounter Summary ---
:1955 Author Organization [facility] [place] [address] Care Team Providers Name Role Phone Neal Breen MD Primary Care Provider [phone] Reason for Referral MRI/CAT Scan (Routine) - Closed Specialty Diagnoses / Procedures Referred By Contact Refer red To Contact Radiology Diagnoses Seizure (HCC) Hemorrhage of right temporal lobe (HCC) Tr Sher Jr., MD [facility] Mri Imaging Procedures MR BRAIN W & WO CONTRAST [address] [address] [place] [address] Referral ID Status Reason Start Date Expiration Date Visits Requ ested Visits Authorized [id number] Closed 12/28/2018 02/25/2019 1 1 Reason for Visit MRI/CAT Scan (Routine) - Closed Specialty Diagnoses / Procedures Referred By Contact Refer red To Contact Radiology Diagnoses Seizure (HCC) Hemorrhage of right temporal lobe (HCC) Tr Sher Jr., MD [facility] Mri Imaging Procedures MR BRAIN W & WO CONTRAST [address] [facility] [address] [address] Referral ID Status Reason Start Date Expiration Date Visits Requ ested Visits Authorized [id number] Closed 12/28/2018 02/25/2019 1 1 Encounter Details Date Type Department Care Team Description 01/04/2019 Hospital Encounter MRI Imaging - Tr Sher Jr., MD [address] [place] [address] [address] [place] [address] [facility] [phone] [address] [place] [address] (Wo rk) Social History Tobacco Use Types [...] (ARICEPT) 10 MG Take 10 mg by mouth 0 tablet in the morning and at bedtime. memantine 28 mg CSpX Take 28 mg by mouth 0 daily. ciprofloxacin HCl (CIPRO) Take 1 tablet (500 20 tablet 0 01/13/2019 500 MG tablet mg total) by mouth 2 times daily for 10 days. ascorbic acid, vitamin C, Take 500 mg by mouth 0 04/22/2020 (VITAMIN C) 500 MG tablet every morning. atorvastatin (LIPITOR) 40 Take 1 tablet (40 mg 90 tablet 5 09/24/2018 03/13/2019 MG tablet total) by mouth daily. cyclobenzaprine Take 1 tablet (10 mg 20 tablet 0 04/06/2017 07/08/2021 (FLEXERIL) 10 MG tablet total) by mouth 2 (two) times daily as needed for up to [address] 1 drop into 0 019 70/POLYCARBOPHIL/PEG/NACL both eyes as needed. (ARTIFICIAL TEAR SOLUTION OPHT) flecainide (TAMBOCOR) 100 TAKE 1 TABLET BY 60 tablet 0 11/1601/21/2019 MG tablet MOUTH TWICE A DAY fluticasone (FLONASE) 50 2 sprays by Each 0 08/2104/04/2019 mcg/actuation nasal spray Nare route daily as needed. loratadine (CLARITIN) 5 Take 5 mg by mouth 0 04/04/2019 mg chewable tablet daily as needed. metFORMIN ER Take 1 tablet (500 60 tablet 5 01/03/201907/16 (GLUCOPHAGE-XR) 500 MG mg total) by mouth 2 extended release tablet times daily with meals. metoPROLOL succinate TAKE 1 TABLET BY 30 tablet 3 9 01/15/2019 (TOPROL-XL) 50 MG 24 hr MOUTH ONCE DAILY tablet multivitamin capsule Take 1 capsule by 0 03/01/2021 mouth daily. topiramate (TOPAMAX) 100 Take 100 mg by mouth 0 01/12/2019 MG tablet 2 times daily. triamcinolone (KENALOG) 1 application to 80 g 3 201803/13/2019 0.1 % cream affected areas BID PRN documented as of this encounter Plan of Treatment Not on filedocumented as of this encounter Procedures Procedure Name Priority Date/Time Associated Diagnosis Comme nts MR BRAIN WWO Routine 01/04/2019 4:17 PM Seizure (Hcc) Results for this CONTRAST EDT Hemorrhage Of Right procedur e are in Temporal Lobe (Hcc) the resu lts section. documented in this encounter Results MR BRAIN W & WO CONTRAST (01/04/2019 4:17 PM EDT) Anatomical Region Laterality Modality Head Magnetic Resonance Specimen (Source) Anatomical Collection Method Collection Time Re ceived Time Location / / Volume Laterality 01/04/2019 4:40 PM EDT Impressions 01/04/2019 5:22 PM EDT 1. Hyperintense FLAIR signal involving s everal sulci in the posterior right cerebral hemisphere is concerning for mild acute subarachnoid hemorrhage. Unenhanced CT of the head could help better characterize. 2. 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 Innumerable small and a few scattered more moderate sized foci of susceptibility throughout both cerebral hemispheres wit h milder involvement of the brainstem and cerebellum are most concerning for changes related to cerebral amyloid angiopathy. 3. Diffuse superimposed sequela of chron ic microvascular disease. Narrative 01/04/2019 5:22 PM EDT MRI BRAIN WITH AND WITHOUT CONTRAST, 01/04/2019 4:17 PM INDICATION: ??\ R56.9 Seizure (HCC) \ I6 1.1 Hemorrhage of right temporal lobe (HCC) COMPARISON: September 09, 2018 TECHNIQUE: Multiplanar, multi-sequence M R imaging of the entire brain was performed before and after intravenous administration of gadolinium-based contrast. FINDINGS: Calvarium/skull base: No focal marrow re placing lesion suggestive of neoplasm. Orbits: No focal mass. Paranasal sinuses: Mild lobular T2 hyper intense thickening in the left maxillary sinus base is favored to represent a retention cyst. Brain: No restricted diffusion to indica te acute ischemic infarct. Similar appearance of cystic encephalomalacia in the right frontal lobe with surrounding T2 hypointense signal and associated susceptib ility artifact, consistent with sequela of remote hemorrhage. Diffuse periventricular and scattered subcortical white matter T2/FLAIR hyperintensities are most consistent with sequela of chronic microva scular disease. Loss of normal fluid sup pression involving several sulci in the posterior right cerebral hemisphere on series 8 image 24. Innumerable small and a few moderate sized rounded foci of susce ptibility artifact noted throughout both cerebral hemispheres as well as involving to a lesser degree the brainstem and cerebellum. No mass effect or midline shift. No hydrocephalus. Linear and wispy en hancement associated with right frontal lobe cystic encephalomalacia likely related to remote blood products. No abnormal enhancement to suggest mass or abscess. Grossly normal flow-related signal in th e major intracranial arteries and dural sinuses. ? Additional comments: None. Procedure Note Vasquez Correia MD - 01/04/2019 MRI BRAIN WITH AND WITHOUT CONTRAST, 12/17 4:17 PM INDICATION: \ R56.9 Seizure (HCC) \ I61. 1 Hemorrhage of right temporal lobe (HCC) COMPARISON: September 09, 2018 TECHNIQUE: Multiplanar, multi-sequence M R imaging of the entire brain was performed before and after intravenous administration of gadolinium-based contrast. FINDINGS: Calvarium/skull base: No focal marrow re placing lesion suggestive of neoplasm. Orbits: No focal mass. Paranasal sinuses: Mild lobular T2 hyper intense thickening in the left maxillary sinus base is favored to represent a retention cyst. Brain: No restricted diffusion to indica te acute ischemic infarct. Similar appearance of cystic encephalomalacia in the right frontal lobe with surrounding T2 hypointense signal and associated susceptibility artifact, consistent with sequela of remote hemorr laurel. Diffuse periventricular and scattered subcortical white matter T2/FLAIR hyperintensities are most consistent with sequela of chronic microvascular disease. Loss of normal fluid suppression involving several sulc i in the posterior right cerebral hemisphere on series 8 image 24. Innumerable small and a few moderate sized rounded foci of susceptibility artifact noted throughout both cerebral hemispheres as well as involvin g to a lesser degree the brainstem and cerebellum. No mass effect or midline shift. No hydrocephalus. Linear and wispy enhancement associated with right frontal lobe cystic encephalomalacia likely related to remot e blood products. No abnormal enhancement to suggest mass or abscess. Grossly normal flow-related signal in the major intracranial arteries and dural sinuses. Additional comments: None. CONCLUSION: 1. Hyperintense FLAIR signal involving s everal sulci in the posterior right cerebral hemisphere is concerning for mild acute subarachnoid hemorrhage. Unenhanced CT of the head could help better characterize. 2. 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 Innumerable small and a few scattered more moderate sized foci of susceptibility throughout both cerebral hemispheres with milder involve ment of the brainstem and cerebellum are most concerning for changes related to cerebral amyloid angiopathy. 3. Diffuse superimposed sequela of chron ic microvascular disease. Tr Sher Jr., MD IMG MRI ORDERABLES documented in this encounter Visit Diagnoses Diagnosis Seizure (HCC) Other convulsions Hemorrhage of right temporal lobe (HCC) documented in this encounter Administered Medications Inactive Administered Medications - up to 3 most recent administrations Medication Order MAR Action Action Date Dose Rate Site gadobutrol (GADAVIST) injection 10 Given 01/04/2019 4:19 PM EDT 10 mLs mL 10 mL IMG once as needed, Intravenous, Contrast, Starting on Mon01/04/19 at 1619, For 1 dose, Radiology documented in this encounter Care Teams [employer] Liaison Officer Relationship Specialty Start Date End Date Neal Breen MD PCP - General Family Medicine 07/31/18 07/14/[address] [place] [address] documented as of this encounter
--- OUTSIDE RECORDS SUMMARY | 2021-11-30 11:48 | XMS_ITS | Encounter Summary ---
:1955 Author Organization [facility] [place] [address] Care Team Providers Name Role Phone Neal Breen MD Primary Care Provider [phone] Reason for Visit Auth/Cert Specialty Diagnoses / Procedures Referred By Contact Refer red To Contact Diagnoses Dysuria Dysuria [R30.0] Procedures NE CYSTOSCOPY,DIR VIS INT URETHROTOMY CYSTOSCOPY W/ INTERNAL URETHROTOMY Referral ID Status Reason Start Date Expiration Date Visits Requ ested Visits Authorized [id number] 1 1 Encounter Details Date Type Department Care Team Description 03/29/2019 Hospital Encounter Surgical Services - Fady Ndiaye MD [address] [place] [id number] [place] [address] [facility] [place], [place] [address] (Wo rk) Social History [...] Sign Reading Time Taken Comments Blood Pressure 126/60 03/29/2019 4:05 PM EST Pulse 66 03/29/2019 10:20 AM EST Temperature 36.3 ??C (97.3 ??F) 03/29/2019 4:05 PM EST Respiratory Rate 20 03/29/2019 4:05 PM EST Oxygen Saturation 93% 03/29/2019 4:05 PM EST Inhaled Oxygen Concentration - - [...] CYSTOSCOPY W/ INTERNAL URETHROTOMY Procedure Note Dario Contrerasyelitza Mckeon [id number] 03/29/2019 Pre-op Diagnosis: Dysuria [R30.0] Bulbar stricture [...] catheter was placed over the guidewire #20 Khmer. This should be removed 5 to 7 [...] (03/29/2019 4:13 PM EST) Analysis Performed At [facility] logist Time Signature POC GLUCOSE Post-Meal MARTINEZA ALICIA GLUCOSE, POC, 73 70 - 99 [facility] NOVA mg/dL Specimen Anatomical Collection Method Collection Time Receive d Time (Source) Location / / Volume Laterality 03/29/2019 4:13 PM 9 4:15 EST PM EST Fady Ndiaye MD POCT ORDERABLES - DEVICE Performing Organization Address City/State/ZIP Code Phon e Number NOVA POCT Glucose (03/29/2019 3:25 PM EST) [facility] gist Method Time Signature POC GLUCOSE To notify BHAVNA VARGAS MD/RN GLUCOSE, POC, 75 70 - 99 [place] NOVA mg/dL Specimen Anatomical Collection Method Collection Time Receive d Time (Source) Location / / Volume Laterality 03/29/2019 3:25 PM 9 3:25 EST PM EST Fady Ndiaye MD POCT ORDERABLES - DEVICE Performing Organization Address City/State/ZIP Code Phon e Number NOVA POCT Glucose (03/29/2019 2:20 PM EST) Patholo gist Method Time Signature POC GLUCOSE NPO/no NOVA COMMENT enteral feeding GLUCOSE, POC, 75 70 - 99 [place] N[place] mg/dL Specimen Anatomical Collection Method Collection Time Receive d Time (Source) Location / / Volume Laterality 03/29/2019 2:20 PM 9 2:20 EST PM EST Fady Ndiaey MD POCT ORDERABLES - DEVICE Performing Organization Address City/State/ZIP Code Phon e Number NOVA POCT Glucose (03/29/2019 10:45 AM EST) P athologist Signature POC GLUCOSE Pre-Meal [facility] COMMENT GLUCOSE, POC, 89 70 - 99 NOVA [...] stricture of bulbous urethra in ma le documented in this encounter Admitting Diagnoses Diagnosis [...] Mon03/29/19 at 1049, For 1 dose, PACU documented in this encounter Active and Recently Administered Medications Times are shown in EST. Scheduled Medication Order 03/27/2019 03/28/2019 03/29/2019 cefTRIAXone (ROCEPHIN) 1 g in sodium chloride 0.9 % 100 mL MBP 1200 (Canceled Entry - Provider: Automatic Discharge Provider - Comment: Automatically canceled at discontinue of medication order) 1 g call or contact centre manager to O.R., Intravenous, Admini ster over 30 [...] Intra-op documented in this encounter Care Teams Room Service Bellhop Relationship Specialty Start Date End Date Neal Breen MD PCP - General Family Medicine 07/31/18 07/14/[address] [place] [id number] documented as of this encounter
--- OUTSIDE RECORDS SUMMARY | 2021-11-30 11:48 | XMS_ITS | Encounter Summary ---
:1955 Author Organization [facility] [place] [address] Care Team Providers Name Role Phone Neal Breen MD Primary Care Provider [phone] Reason for Referral Diagnostic X-Ray (Routine) - Closed Specialty Diagnoses / Procedures Referred By Contact Refer red To Contact Radiology Diagnoses Acute cystitis with hematuria [facility]iyah [facility] Ultrasound Imaging Procedures US URINARY SYSTEM/RENAL PA-C [address] [place] [address] [address] [place] [address] [address] [address] [place] [address] Referral ID Status Reason Start Date Expiration Date Visits Requ ested Visits Authorized [id number] Closed 01/03/2019 02/06/2019 1 1 Reason for Visit Diagnostic X-Ray (Routine) - Closed Specialty Diagnoses / Procedures Referred By Contact Refer red To Contact Radiology Diagnoses Acute cystitis with hematuria Niyah Corley [facility] Ultrasound Imaging Procedures US URINARY SYSTEM/RENAL PA-C [address] [place] [address] [address] [place] [address] [place] [address] [place] [address] Referral ID Status Reason Start Date Expiration Date Visits Requ ested Visits Authorized [id number] Closed 01/03/2019 02/06/2019 1 1 Encounter Details Date Type Department Care Team Description 01/16/2019 Hospital Encounter Ultrasound Imaging - Janae Corley PA-C [address] [place] [address] [place], [place] [address] (Wo rk) Social History [...] Take 28 mg by mouth 0 daily. amoxicillin-clavulanate Take 1 tablet by 20 tablet 0 201801/22/2019 (AUGMENTIN) 875-125 mg mouth 2 times daily per tablet for 10 days. ascorbic acid, vitamin C, [...] 1 capsule by 0 03/01/2021 mouth daily. triamcinolone (KENALOG) 1 application to 80 g 3 201803/13/2019 0.1 % cream affected areas BID PRN documented as of this encounter Plan of Treatment Not on filedocumented as of this encounter Procedures Procedure Name Priority Date/Time Associated Diagnosis Comme nts US URINARY Routine 01/16/2019 10:57 AM Acute cystitis with R esults for this SYSTEM/RENAL EDT hematuria procedure are i n the results section. documented in this encounter Results US URINARY SYSTEM/RENAL (01/16/2019 10:57 AM EDT) Anatomical Region Laterality Modality Abdomen Ultrasound Specimen (Source) Anatomical Collection Method Collection Time Re ceived Time Location / / Volume Laterality 01/16/2019 11:01 AM EDT Impressions 01/16/2019 11:02 AM EDT No evidence of hydronephrosis. Multiple bilateral calyceal stones. Narrative 01/16/2019 11:02 AM EDT ULTRASOUND OF RETROPERITONEUM/URINARY TRACT, 01/16/2019 10:57 AM INDICATION: HEMATURIA \ N30.01 Acute cys titis with hematuria ADDITIONAL HISTORY: None. COMPARISON: CT 01/03/2019 TECHNIQUE: Multiplanar real-time ultraso nography of the retroperitoneum and urinary tract using grayscale imaging, supplemented by color and spectral Doppler as needed. FINDINGS: . ??Right kidney: Length = 11.3 cm. Norm al size, contour, and echogenicity. No hydronephrosis or perinephric fluid. No focal mass is identified. . ??Left kidney: Length = 11.6 cm. Selene l size, contour, and echogenicity. No hydronephrosis or perinephric fluid. No focal mass is identified. . ??Vascular: Perfusion to both kidneys is documented with color Doppler. . ??Bladder: Normal. . ??Additional comments: Multiple bilate ral calyceal stones are evident similar to recent CT. Procedure Note Aubrey Guerra Jr., MD - 01/17/20 19 ULTRASOUND OF RETROPERITONEUM/URINARY TR ACT, 01/16/2019 10:57 AM INDICATION: HEMATURIA \ N30.01 Acute cys titis with hematuria ADDITIONAL HISTORY: None. COMPARISON: CT 01/03/2019 TECHNIQUE: Multiplanar real-time ultraso nography of the retroperitoneum and urinary tract using grayscale imaging, supplemented by color and spectral Doppler as needed. FINDINGS: . Right kidney: Length = 11.3 cm. Normal size, contour, and echogenicity. No hydronephrosis or perinephric fluid. No focal mass is identified. . Left kidney: Length = 11.6 cm. Normal size, contour, and echogenicity. No hydronephrosis or perinephric fluid. No focal mass is identified. . Vascular: Perfusion to both kidneys is documented with color Doppler. . Bladder: Normal. . Additional comments: Multiple bilatera l calyceal stones are evident similar to recent CT. CONCLUSION: No evidence of hydronephrosis. Multiple bilateral calyceal stones. Niyah Corley PA-C IMMargarita US ORDERABLES documented in this encounter Visit Diagnoses Diagnosis Acute cystitis with hematuria documented in this encounter Care Teams Health Care Legal Assistant Relationship Specialty Start Date End Date Neal Breen MD PCP - General Family Medicine 07/31/18 07/14/[address] [place] [address] documented as of this encounter
--- OUTSIDE RECORDS SUMMARY | 2021-11-30 11:48 | XMS_ITS | Encounter Summary ---
:1955 Author Organization [facility] [place] [address] Care Team Providers Name Role Phone Neal Breen MD Primary Care Provider [phone] Encounter Details Date Type Department Care Team Description 03/25/2019 Lab Visit Lab Services - Tr Bruner Jr., MD No Show [address] [place], [place] [id number] [place] [address] [facility] [address] (Wo rk) Social History Tobacco Use Types [...] on filedocumented in this encounter Care Teams Employee Development Specialist Relationship Specialty Start Date End Date Neal Breen MD PCP - General Family Medicine 07/31/18 07/14/[address] [place] [address] documented as of this encounter
--- OUTSIDE RECORDS SUMMARY | 2021-11-30 11:48 | XMS_ITS | Encounter Summary ---
:1955 Author Organization [facility] [place] [address] Care Team Providers Name Role Phone Neal Breen MD Primary Care Provider [phone] Reason for Visit Reason Comments Follow-up 6mo no concerns today Hypertension Hyperlipidemia Encounter Details Date Type Department Care Team Description 02/01/2019 Office Visit Cardiology - Arianna Alvares Supraventric ular tachycardia (HCC) (Primary Dx); Jennifer Field PA-C Essential hypertension; [address] [facility] [place] [facility] Hypotension due to drugs; [place], [place] DRIVE Cold hands and feet without peripheral v ascular disease [id number] [place], [place] [phone] [facility] Social History Tobacco Use Types Packs/Day Years [...] Sign Reading Time Taken Comments Blood Pressure 108/72 02/01/2019 10:53 AM EDT Pulse 61 02/01/2019 10:53 AM EDT Temperature - - Respiratory Rate - - Oxygen Saturation 95% 02/01/2019 10:53 AM EDT Inhaled Oxygen Concentration - - Weight 108 kg (238 lb) 02/01/2019 10:53 AM EDT Height 177.8 cm (5' 10) 02/01/2019 10:53 AM EDT Body Mass Index 34.15 02/01/2019 10:53 AM EDT documented in this encounter Functional [...] as of this encounter Progress Notes Arianna Sanon PA-C - 02/01/2019 10:45 AM EDT Past Medical History: 1. SVT [...] mg total) by mouth daily. 08/31/17 Yes TAQUERIA Hernandes II-Olvin multivitamin capsule Take 1 capsule by mouth [...] Mckeon is here for f/u SVT. He is doing well. He denies any recurrent SVT. No recent palpitations,dizziness, or chest discomfort. He is taking all his medications. He states his BP has been low recently and wonders if that is why his hands and feet have been cold recently. He denies any syncope. ?? Physical Exam: Blood pressure 108/72, pulse 61, height 1.778 m (5' 10), weight 108 kg (238 lb), SpO2 95 %. General: ??Well appearing and in no [...] ?? Data Reviewed: EKG today - NSR 62bpm, adequate intervals ?? Assessment and Plan: 1. SVT - no symptomatic recurrence and none on EKGs.. ??Intervals adequate today on flecainide. ??Noh/o AFib or AFL documented so no AC at this time (h/o hemorhage in brain spontaneous). 2. CV risk - he is diabetic. ??He is asymptomatic. ??Neg stress test 2016. ??On statin, BB. Plavix discontinued after spontaneous brain hemorrhage. 3. Low BP - Unlikely cause of bilateral hands and feet coldness. Feel warm to the touch with good pulses on exam today. Good cap ref. Will decrease metoprolol 12.5mg daily to see if this helps keep hisBP a little higher. If he has palpitations, he will resume previous dosing. Disposition: 6 months Electronically signed by: Arianna Sanon PA-C 02/01/19 1331 documented in this encounter Plan of Treatment Not on filedocumented as of this encounter Procedures Procedure Name Priority Date/Time Associated Diagnosis Comme nts CARDIOLOGY SCAN 02/04/2019 6:56 Results f or this PM EDT procedure are i n the results section. EKG - PERFORMED Routine 02/01/2019 11:17 Supraventricular Resu lts for this DURING CLINIC AM EDT tachycardia (HCC) procedure are in VISIT the results section. documented in this encounter Results CARDIOLOGY SCAN (02/04/2019 6:56 PM EDT) Narrative This result has an attachment that is no t available. Default Authenticator [employer] SCANNED DOCUMENTS EKG - PERFORMED BY CLINIC STAFF (02/01/2019 11:17 AM EDT) Specimen Anatomical Collection Method Collection Time Receive d Time (Source) Location / / Volume Laterality 02/01/2019 11:17 02/04/2019 6:50 AM EDT PM EDT Narrative MUSE - 02/04/2019 6:50 PM EDT Ventricular Rate ? 62 ?BPM ? Atrial Rate ?62 ?BPM ? P-R Interval ? 194 ? ms ? QRS Duration ? 106 ? ms ? Q-T Interval ? 454 ? ms ? QTC ?460 ? ms ? P [place] ? 0 ? degrees ? R [place] ? -44 ? degrees ? T [place] ? 20 ?degrees ? Sinus rhythm Left axis deviation When compared with ECG of 06-MAR-2018 11 :17, No significant change was found Confirmed by DR. FUNMILAYO EASON ([id number]) on 02/04/2019 6:50:36 PM Procedure Note Funmilayo Eason MD - 02/04/2019For matting of this note might be different from the original. Ventricular Rate 62 BPM Atrial Rate 62 BPM P-R Interval 194 ms QRS Duration 106 ms Q-T Interval 454 ms QTC 460 ms P [place] 0 degrees R [place] -44 degrees T [place] 20 degrees Sinus rhythm Left axis deviation When compared with ECG of 06-MAR-2018 11 :17, No significant change was found Confirmed by DR. FUNMILAYO EASON ([id number]) on 02/04/2019 6:50:36 PM Arianna Alvares PA-C ECG SPECIAL Performing Organization Address City/State/ZIP Code Phon e Number MUSE documented in this encounter Visit Diagnoses Diagnosis Supraventricular tachycardia (HCC) - Velma andres Other specified cardiac dysrhythmias Essential hypertension Unspecified essential hypertension Hypotension due to drugs Other iatrogenic hypotension Cold hands and feet without peripheral v ascular disease documented in this encounter Care Teams Planning Advisor Relationship Specialty Start Date End Date Neal Breen MD PCP - General Family Medicine 07/31/18 07/14/[address] [place] [address] documented as of this encounter
--- OUTSIDE RECORDS SUMMARY | 2021-11-30 11:48 | XMS_ITS | Encounter Summary ---
:1955 Author Organization [facility] [place] [address] Care Team Providers Name Role Phone Neal Breen MD Primary Care Provider Pcp, Patient Does Not Have Primary Care Provider [phone] Reason for Visit MRI/CT/PET Scan (Routine) - Closed Specialty Diagnoses / Procedures Referred By Contact Refer red To Contact Radiology Diagnoses Acute spontaneous subarachnoid intracranial hemorrhage (HCC) Tr Sher Jr., [facility] [place] [facility] Imaging Procedures CT Head Wo Contrast [address] [place] [address] [address] [place], [place] [address] Referral ID Status Reason Start Date Expiration Date Visits Requ ested Visits Authorized [id number] Closed 01/07/2019 03/09/2020 1 1 Encounter Details Date Type Department Care Team Description 01/10/[address] Imaging - [place] Sher No Show [address] [place] [address] YOSELYN [place]ine[place], [place] [address] [phone] [place] [address] (Wo rk) Social History Tobacco Use Types [...] documented as of this encounter Care Teams Federal Mediator Relationship Specialty Start Date End Date Neal Breen MD PCP - General Family Medicine 07/31/18 07/14/[address] [place] [address] Pcp, Patient Does Not Have PCP - General Family Medicine 07/15/21 documented as of this encounter
--- OUTSIDE RECORDS SUMMARY | 2021-11-30 11:48 | XMS_ITS | Encounter Summary ---
:1955 Author Organization [facility] [place] [address] Care Team Providers Name Role Phone Neal Breen MD Primary Care Provider [phone] Reason for Referral MRI/CAT Scan (Routine) - Closed Specialty Diagnoses / Procedures Referred By Contact Refer red To Contact Radiology Diagnoses Hemorrhage of right temporal lobe (HCC) Tr Sher Jr., [place] [facility] Imaging Procedures CT ANGIOGRAPHY HEAD [address] [place] [address] Referral ID Status Reason Start Date Expiration Date Visits Requ ested Visits Authorized [id number] Closed 03/19/2019 05/20/2020 1 1 Reason for Visit MRI/CAT Scan (Routine) - Closed Specialty Diagnoses / Procedures Referred By Contact Refer red To Contact Radiology Diagnoses Hemorrhage of right temporal lobe (HCC) Tr Sher Jr., MD [facility] Imaging Procedures CT ANGIOGRAPHY HEAD [address] [place] [address] Referral ID Status Reason Start Date Expiration Date Visits Requ ested Visits Authorized [id number] Closed 03/19/2019 05/20/2020 1 1 Encounter Details Date Type Department Care Team Description 03/25/[address] [facility] Edward [facility] [address] [place] [address] [facility] [phone] [facility] [address] [place] [address] (Wo rk) Social History Tobacco Use Types [...] Take 1 tablet (500 60 tablet 5 01/03/2019/06/2019 (GLUCOPHAGE-XR) 500 MG mg total) by mouth [...] 5 days. documented as of this encounter Plan of Treatment Not on filedocumented as of this encounter Procedures Procedure Name Priority Date/Time Associated Comments Diagnosis CT ANGIOGRAPHY HEAD Routine 03/25/2019 12:10 PM Hemorrhage of right Results for this EST temporal lobe (HCC) procedur e are in the results section. CREATININE WITH GFR STAT 03/25/2019 10:53 AM R esults for this EST procedure are i n the results section. documented in this encounter Results CT ANGIOGRAPHY HEAD (03/25/2019 12:10 PM EST) Anatomical Region Laterality Modality Head Computed Tomography Specimen (Source) Anatomical Collection Method Collection Time Re ceived Time Location / / Volume Laterality 03/25/2019 12:15 PM EST Impressions 03/25/2019 12:19 PM EST ?? No acute intracranial arterial abnor mality. ? Narrative 03/25/2019 12:[address] HEAD/BRAIN WITH AND WITHOUT CONTRAST; CT ANGIOGRAPHY OF HEAD/BRAIN, 03/25/2019 12:10 PM INDICATION: ??\ I61.1 Hemorrhage of righ t temporal lobe (HCC) COMPARISON: MRI 09/09/2018 TECHNIQUE: Furnace Worker and pre-contrast axial images of the entire brain were first obtained, followed by a small test bolus of contrast for CTA timing purposes. ??Thereafter, a full dose of iodinated contras t was administered intravenously by rapi d injection, with further multislice axial sections acquired in the arterial phase from the skull base to the vertex. ??Image post-processing was then performed o n an independent workstation, creating m ultiplanar and/or 3D reformatted images for comprehensive analysis and diagnosis of the intracranial circulation including the [place]. Any stenosis repo rted is calculated using the estimated d iameter of the distal normal vessel (e.g., ICA) in the denominator. All CT scans at [facility] and [facility] Imaging are performed using dose optimization techniques as appropriate to a performed exam, including but not limited to one o r more of the following: automated expos ure control, adjustment of the mA and/or kV according to patient size, use of iterative reconstruction technique. In addition, [employer] is participating in the ACR Do se Registry program which will further a ssist us in optimizing patient radiation exposure. FINDINGS: CT HEAD Calvarium/skull base: No acute fracture or destructive lesion. Mastoids and middle ears demonstrate no substantial disease. Paranasal sinuses: Trace air-fluid level in the left sphenoid sinus. Brain: No evidence of acute large vascul ar territory infarct. Area of encephalomalacia in the right frontal lobe again noted. No mass effect, mass lesion, or hydrocephalus. ?? No acute hemorrhage. ? CTA HEAD Anterior circulation: No evidence of ane urysm, significant stenosis, or occlusion. Persistent origin of the right posterior cerebral artery. Vertebrobasilar system: Left vertebral a rtery dominance. No evidence of aneurysm, significant stenosis, or occlusion. Venous sinuses: Grossly patent. Procedure Note Aubrey Guerra Jr., MD - 03/25/[address] HEAD/BRAIN WITH AND WITHOUT CONTRAST; CT ANGIOGRAPHY OF HEAD/BRAIN, 03/25/2019 12:10 PM INDICATION: \ I61.1 Hemorrhage of right temporal lobe (HCC) COMPARISON: MRI 09/09/2018 TECHNIQUE: Furnace Worker and pre-contrast axial images of the entire brain were first obtained, followed by a small test bolus of contrast for CTA timing purposes. Thereafter, a full dose of iodinated contrast was administered intravenously by rapid injection, with f urther multislice axial sections acquired in the arterial phase from the skull base to the vertex. Image post- processing was then performed on an independent workstation, creating multiplanar and/or 3D reformatted images for comprehensive analysis and diagnosis of the intracranial circulation including the [place]. Any stenosis reported is calculated using the estimated diameter of the distal normal vessel (e.g., ICA) in the denominator. All CT scans at [facility] and [facility] Imaging are performed using dose optimization techniques as appropriate to a performed exam, including but not limited to one or more of the following: automated exposure control, a djustment of the mA and/or kV according to patient size, use of iterative reconstruction technique. In addition, [employer] is participating in the ACR Dose Registry program which will further assist us in optimizing pat ient radiation exposure. FINDINGS: CT HEAD Calvarium/skull base: No acute fracture or destructive lesion. Mastoids and middle ears demonstrate no substantial disease. Paranasal sinuses: Trace air-fluid level in the left sphenoid sinus. Brain: No evidence of acute large vascul ar territory infarct. Area of encephalomalacia in the right frontal lobe again noted. No mass effect, mass lesion, or hydrocephalus. No acute hemorrhage. CTA HEAD Anterior circulation: No evidence of ane urysm, significant stenosis, or occlusion. Persistent origin of the right posterior cerebral artery. Vertebrobasilar system: Left vertebral a rtery dominance. No evidence of aneurysm, significant stenosis, or occlusion. Venous sinuses: Grossly patent. CONCLUSION: No acute intracranial arterial abnormal ity. Tr Sher Jr., MD IMG CT ORDERABLES Creatinine With GFR (03/25/2019 10:53 AM EST) P athologist Signature Creatinine 1.06 0.90 - 03/25/2019 [facility] 1.30 MG/DL 11:26 AM [facility] Est. GFR 74 >=60 03/25/2019 [facility] Non- ML/MIN/1.7 11:26 AM [facility] 3 M*2 LAB SERVICES Comment: GFR estimated by CKD-EPI equati ons, reportable up to 90 ML/MIN/1.73 M*2 Est. GFR 86 >=60 ML/MIN/1.73 M*2 9 11:26 AM [facility] Comment: GFR estimated by CKD-EPI equati ons, reportable up to 90 ML/MIN/1.73 M*2 Specimen Anatomical Collection Method / Collection Time Recei ericka Time (Source) Location / Volume Laterality Blood specimen Venipuncture / 03/25/2019 10:53 019 (specimen) Unknown AM EST 11:01 AM EST Tr Sher Jr., MD LAB BLOOD ORDERABLES Performing Organization Address City/State/ZIP Code Phon e Number [facility]# [id number] [place] [address] [facility] [address] [facility]#[id number] [place] [address] [facility] [address] documented in this encounter Visit Diagnoses Diagnosis Hemorrhage of right temporal lobe (HCC) documented in this encounter Administered Medications Inactive Administered Medications - up to 3 most recent administrations Medication Order MAR Action Action Date Dose Rate Site iohexol (OMNIPAQUE 350) injection Given 03/25/2019 12:11 PM EST 80 mLs 80 mL 80 mL IMG once as needed, Intravenous, Contrast, Starting on 03/25/19 at 1211, For 1 dose, Radiology documented in this encounter Care Teams Supervisor Wrapping Room Relationship Specialty Start Date End Date Neal Breen MD PCP - General Family Medicine 07/31/18 07/14/21 [address] [place] [address] documented as of this encounter
--- OUTSIDE RECORDS SUMMARY | 2021-11-30 11:48 | XMS_ITS | Encounter Summary ---
:1955 Author Organization [facility] [place] [address] Care Team Providers Name Role Phone Neal Breen MD Primary Care Provider [phone] Pcp, Patient Does Not Have Primary Care Provider [phone] Reason for Visit Reason Onset Date Comments Referral 02/21/2019 Encounter Details Date Type Department Care Team Description 02/21/2019 Telephone [facility] Neal Barlow MD Referral Family Medicine [address] [address] [address] [place], [place] [address] [phone] Social History Tobacco Use Types Packs/Day Years [...] this encounter Miscellaneous Notes Telephone Encounter - Vilma Lovell - 02/21/2019 11:26 AM EST Called patient and left a message stating we need him to contact [facility] at [phone] to schedule his annual eye exam. If patient calls back, please advise patient of above message. documented in this encounter Plan of Treatment [...] documented as of this encounter Care Teams Electricians Top Helper Relationship Specialty Start Date End Date Neal Breen MD PCP - General Family Medicine 07/31/18 07/14/[address] [place] [address] Pcp, Patient Does Not Have PCP - General Family Medicine 07/15/21 documented as of this encounter
--- OUTSIDE RECORDS SUMMARY | 2021-11-30 11:48 | XMS_ITS | Encounter Summary ---
:1955 Author Organization [facility] [place] [address] Care Team Providers Name Role Phone Neal Breen MD Primary Care Provider [phone] Reason for Referral Consultation (Routine) - Closed Specialty Diagnoses / Procedures Referred By Contact Refer red To Contact Ophthalmology Diagnoses Type 2 diabetes mellitus with hyperglycemia, without long-term current use of insulin ([facility]) Neal Breen MD [address] [place] [address] [place] [address] Referral ID Status Reason Start Date Expiration Date Visits V isits Requested Authorized [id number] Closed Specialty 01/15/2019 01/15/2020 1 12 Services Required Consultation (Routine) - Closed Specialty Diagnoses / Procedures Referred By Contact Refer red To Contact Urology Diagnoses Gross hematuria Neal Breen MD [address] [place] [address] [place] [address] Referral ID Status Reason Start Date Expiration Date Visits V isits Requested Authorized [id number] Closed Specialty 01/15/2019 01/15/2020 1 12 Services Required Reason for Visit Reason Comments Follow-up 8 wk - episode of altered co nsciousness/DM2 Encounter Details Date Type Department Care Team Description 01/15/2019 Office Visit [facility] Neal Breen ematuria (Primary Dx); Network Family Miguel MD Type 2 diabetes mellitus with hyperglyce jackelyn, without long-term current use of insulin (HCC); Medicine - [place] [address] Hypotension due to drugs; [address] Need for immunization against [place] [phone] Social History Tobacco Use [...] Sign Reading Time Taken Comments Blood Pressure 99/68 01/15/2019 3:16 PM EDT Pulse 57 01/15/2019 3:16 PM EDT Temperature 36.4 ??C (97.5 ??F) 01/15/2019 3:16 PM EDT Respiratory Rate 20 01/15/2019 3:16 PM EDT Oxygen Saturation 95% 01/15/2019 3:16 PM EDT Inhaled Oxygen Concentration - - Weight 105.7 kg (233 lb) 01/15/2019 3:16 PM EDT Height 177.8 cm (5' 10) 01/15/2019 3:16 PM EDT Body Mass Index 33.43 01/15/2019 3:16 PM EDT documented in this encounter Functional [...] encounter Progress Notes Neal Breen MD - 01/15/2019 2:30 PM EDT Subjective: Dario Mckeon is a 63 y.o. male. Chief Complaint Patient presents with ??? Follow-up 8 wk - episode of altered consciousness/DM2 HPI: Pt's is present and assisted with giving the HPI. Patient recently went to the ED on 01/12/19 for hematuria and syncope. He was prescribed Augmentin during his visit to the ED. He was referred to his urologist but has not yet received a call from Urology. Patient is currently scheduled for US of his kidneys. DM2 has been a problem for years. Severity today is controlled and at goal and last a1c level was 5.9 - is improved with metformin - not missing any doses - no side effects reported at this time. Pt irena a statin. Patient reports that his blood pressure has been low recently with a pressure of 99/68 today - currently taking metoprolol and flecainide. Review of Systems Musculoskeletal: Negative for falls. Psychiatric/Behavioral: Positive for memory loss (chronic issue). Past Medical History: Diagnosis Date ??? Acute CVA (cerebrovascular accident) (HCC) 09/16/2017 ??? Arthritis ??? 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 Diabetes mellitus (HCC) ??? Hyperlipemia ??? Hypertension ??? Ruptured appendix ??? Tachycardia Objective Vitals: 01/15/19 1516 BP: 99/68 Pulse: 57 Temp: 97.5 ??F (36.4 ??C) Resp: 20 SpO2: 95% PainSc: 0-Zero Position: Sitting Physical Exam Constitutional: Patient appears well-developed and well-nourished. No distress. Obese. ENT: Normal external ears and nose. Eyes: Conjunctivae are normal. Right eye exhibits no discharge. Left eye exhibits no discharge Pulmonary/Chest: Effort normal. No respiratory distress. Neurological: Alert. Coordination normal. Skin: Skin is warm and dry. No rash noted Lab Results Component Value Date HBA1C 5.9 (H) 01/03/2019 Assessment: 1. Gross hematuria Ambulatory Referral To Urology 2. Type 2 diabetes mellitus with hyperglycemia, without long-term current use of insulin (HCC) Ambulatory Referral To Ophthalmology 3. Hypotension due to drugs 4. Need for immunization against influenza Plan: 1. Gross hematuria -- Finish Abx -- Referral to Urology with Dr. Ndiaye at [facility] -- Awaiting kidney US 2. DM type 2, chronic, controlled and at goal -- Referral to ophthalmology for diabetic eye exam -- Continue metformin, take as directed 3. Hypotension due to medication -- Metoprolol reduced to half dose - patient is unsure if he is taking 1 or 2 pills daily --advised s/o to call and let us know what he has been taking so we can adjust it. -- Flu vaccination administered -- Follow-up in 2 months This document serves as a record of services personally performed by Neal Breen MD. It wascreated on their behalf by Yovany Zamarripa, a trained medical authorization specialist. The creation of this record is the provider's dictation and/or activities during this visit. Electronically signed by: Casandra Rai 01/15/2019 3:46 PM Greater than 50% of this 25 minute visit was spent in direct [id number] counseling and coordination of care. I agree the documentation is accurate and complete. Electronically signed by: Neal Breen MD 01/16/2019 1:19 PM Electronically signed by: Neal Breen MD 01/16/19 1321 documented in this encounter Plan of Treatment Scheduled Referrals Name Type Priority Associated Order Schedule Diagnoses Ambulatory Referral Outpatient Routine Gross hematuria 1 Occ urrences To Urology Referral starting 2018 until 0 Ambulatory Referral Outpatient Routine Type 2 Diabetes 1 Occ urrences To Ophthalmology Referral Mellitus With starting 1 Hyperglycemia, until 020 Without Long-Term Current Use Of Insulin (Hcc) documented as of this encounter Visit Diagnoses Diagnosis Gross hematuria - Primary Type 2 diabetes mellitus with hyperglyce jackelyn, without long-term current use of insulin (HCC) Hypotension due to drugs Other iatrogenic hypotension Need for immunization against influenza Need for prophylactic vaccination and in oculation against influenza documented in this encounter Care Teams Supervisor Cabinetmaker Relationship Specialty Start Date End Date Neal Breen MD PCP - General Family Medicine 07/31/18 07/14/[address] [place] [address] documented as of this encounter
--- OUTSIDE RECORDS SUMMARY | 2021-11-30 11:48 | XMS_ITS | Encounter Summary ---
:1955 Author Organization [facility] [place] [address] Care Team Providers Name Role Phone Neal Breen MD Primary Care Provider [phone] Pcp, Patient Does Not Have Primary Care Provider [phone] Reason for Visit Reason Onset Date Comments referral question 01/07/2019 Encounter Details Date Type Department Care Team Description 01/07/2019 Telephone [facility] Neal Breen, referral question Network Family Medicine - [place] [address] [place] [address] [place] [address] [phone] Social History Tobacco Use Types Packs/Day Years [...] this encounter Miscellaneous Notes Telephone Encounter - Cristina Nicole CMA - 01/07/2019 11:34 AM EDT Jade Uriarte from Radiology called and confirmed Dr. Sher did receive the MRI Brain that was sentto your inbox and he handled it. Electronically signed by: Cristina Nicole CMA 01/07/19 1137 Telephone Encounter - Nicole Sy RN - 01/07/2019 11:29 AM EDT Spoke with Radha and they will schedule patient with Dr. Abraham and do testing and appointment and let you know of findings when all testing and appointment has been completed. Electronically signed by: Nicoel Sy RN 01/07/19 1131 Telephone Encounter - Neal Breen MD - 01/07/2019 11:20 AM EDT I would like him seen for episodes of memory loss in a complex patient that I was hoping to see if they could help me determine if he is starting to display cognitive decline or if pseudodementia couldbe in play. Please let them know of this and have them tell us exactly which department he needs to be seen by, then forward that to our scheduling staff so they can get this arranged. Electronically signed by: Neal Breen MD 01/07/19 1121 Telephone Encounter - Nicole Sy RN - 01/07/2019 11:00 AM EDT Spoke with them she was referring to neuropsych referral with Dr. Abraham, he does not see patient's for depression or therapy but he does see for memory loss. She said if referral is for Depression it needs to be sent to [facility]? Electronically signed by: Nicole Sy RN 01/07/19 1103 Telephone Encounter - Neal Breen MD - 01/07/2019 10:30 AM EDT I do not see that referral, we did refer him to neuropsych. Electronically signed by: Neal Breen MD 01/07/19 1030 Telephone Encounter - Nicole Sy RN - 01/07/2019 10:27 AM EDT Please advise, I do not see Pain Clinic referral did you send one, let me know diagnosis and I can notify them?? Electronically signed by: Nicole Sy RN 01/07/19 1028 Telephone Encounter - Mindy Johnson - 01/07/2019 9:15 AM EDT Radha of [facility] is requesting a call back from nurse/doctor in regards to they received a referral for the patient, and she needs to verify as to whether it is for memory or depression/ therapy. Because the doctor does not do depression or therapy. Please call back to advise. Call back number is [phone] documented in this encounter Plan of Treatment [...] documented as of this encounter Care Teams Electrical Engineering Professor Relationship Specialty Start Date End Date Neal Breen MD PCP - General Family Medicine 07/31/18 07/14/[address] [place] [address] Pcp, Patient Does Not Have PCP - General Family Medicine 07/15/21 documented as of this encounter
--- OUTSIDE RECORDS SUMMARY | 2021-11-30 11:48 | XMS_ITS | Encounter Summary ---
:1955 Author Organization [facility] [place] [address] Care Team Providers Name Role Phone Neal Breen MD Primary Care Provider [phone] Encounter Details Date Type Department Care Team Description 03/22/2019 Hospital Encounter Preoperative Assessments - [address] [place] [phone] Anesthesia Record Procedure Summary Procedure Name Responsible [...] d acknowledgement of understanding. 1522 An Stop No medications on file. Agents No agents on file. Blood No blood administrations on file. Lines, Drains, and Airways Type Details Placement Removal Airway 03/29/19; 1451 (created 03/29/19 1451 by Lorri via procedure Siddhartha Pathak CRNA documentation); LMA; 4.5 mm Incision 03/29/19; 1503; No; 03/29/19 1503 by Francisco Urethra; no wound Chava Ravi RN Peripheral IV 03/29/19; 1056; 20 G; 03/29/19 1056 by Christina 1610 by Left; Forearm; Alcohol; BERNARD Beckett et Tameka Tolerated well; No BERNARD Hurst Urethral Catheter 03/29/19; 1517; 03/29/19 1517 by Francisco 0000 by Completed; Refer to BERNARD Styles seaman catheter order; RN Completed; Completed; Completed; Completed; [...] Sign Reading Time Taken Comments Blood Pressure 131/77 03/22/2019 10:52 AM EST Pulse 82 03/22/2019 10:52 AM EST Temperature 36.7 ??C (98 ??F) 03/22/2019 10:52 AM EST Respiratory Rate 18 03/22/2019 10:52 AM EST Oxygen Saturation 97% 03/22/2019 10:52 AM EST Inhaled Oxygen Concentration - - Weight 108.1 kg (238 lb 4 oz) 03/22/2019 10:52 AM EST Height 177.8 cm (5' 10) 03/22/2019 10:52 AM EST Body Mass Index 34.19 03/22/2019 10:52 AM EST documented in this encounter Functional [...] as of this encounter Discharge Instructions Discharge InstructionsAditya Kimble PA-C - 03/22/2019 11:17 AM EST PREOPERATIVE PAC HOME INSTRUCTIONS 1. We will call you the day before your surgery to let you know the arrival time and check-in location on the day of surgery. Patients scheduled to have a procedure on a Monday will receive a call the Monday before surgery. 2. Dietary restrictions for relatively healthy older children and adults: DO NOT EAT SOLID FOOD AFTER MIDNIGHT THE NIGHT BEFORE SURGERY. Unless otherwise directed by the preoperative assessment staff, it is acceptable and encouraged to have CLEAR LIQUIDS UP UNTIL 2 HOURS PRIOR TO YOUR ARRIVAL TIME FOR SURGERY. Clear Liquids may include: water, pulp-free apple juice, clear unsweetened tea, BLACK coffee, carbonated beverages or sports drinks. DO NOT drink milk or creamer. In some instances an approved beveragemay be provided to you prior to surgery. Specific Medication Instructions Current Medications - Follow these instructions in preparation for your surgery Medication Sig Extra Info ??? ascorbic acid, vitamin C, (VITAMIN C) 500 MG tablet Take 500 mg by mouth every morning. Do not take day of surgery ??? atorvastatin (LIPITOR) 20 MG tablet Take 20 mg by mouth daily. Take as usual day of surgery ??? DEXT 70/POLYCARBOPHIL/PEG/NACL (ARTIFICIAL TEAR SOLUTION OPHT) Place 1 drop into both eyes as needed. Take as usual day of surgery ??? donepezil (ARICEPT) 10 MG tablet Take 10 mg by mouth daily. Take as usual day of surgery ??? flecainide (TAMBOCOR) 100 MG tablet Take 1 tablet (100 mg total) by mouth 2 times daily. Take asusual day of surgery ??? fluticasone (FLONASE) 50 mcg/actuation nasal spray 2 sprays by Each Nare route daily as needed. Take as usual day of surgery ??? ketoconazole (NIZORAL) 2 % shampoo Use to wash affected area of back daily for 2 weeks, then useonce weekly Do not take day of surgery ??? loratadine (CLARITIN) 5 mg chewable tablet Take 5 mg by mouth daily as needed. Do not take day of surgery ??? memantine 28 mg CSpX Take 28 mg by mouth daily. Take as usual day of surgery ??? metFORMIN ER (GLUCOPHAGE-XR) 500 MG extended release tablet Take 1 tablet (500 mg total) by mouth 2 times daily with meals. Do not take day of surgery ??? metoPROLOL succinate (TOPROL-XL) 25 MG 24 hr tablet TAKE 1 TABLET BY MOUTH ONCE DAILY Take as usual day of surgery ??? multivitamin capsule Take 1 capsule by mouth daily. Do not take day of surgery 2. Certain surgeries require a bowel cleanout. If you have been given a bowel prep sheet, please follow the directions. 3. Other instructions: Bring photo ID with you on the day of surgery. 4. DO NOT eat candy/mints, chew gum or use tobacco or snuff the morning of surgery. 5. If you make a mistake and eat or drink, please tell us. For your safety you may be rescheduled. 6. If you develop a cold, fever, stomach-ache, diarrhea, or other illness, tell your surgeon right away. For your safety you may be rescheduled. Call to report your illness. 7. DO NOT wear makeup or nail malaysian as this can potentially cause problems with our monitors or contribute to injury (especially eye make-up). Please LEAVE Jewelry and valuables at home. Please remove body piercings. We recommend that you wear loose fitting clothing 8. Let us know if you wear hearing aids, false teeth, or contact lenses so we can better care for you during surgery. If possible, please remove your contacts prior to arrival and bring your glasses with you. 9. Don???t plan on doing anything important the day of surgery or the next day. Anesthesia effects people differently and you should expect to be drowsy hours after surgery or even longer for some people. FOR YOUR SAFETY, YOU MUST NOT drive a car, work with machinery, or sign any important papers for at least 24 hours after surgery. 10. ON THE DAY OF YOUR SURGERY YOU must arrange for a responsible adult to accompany you home and provide transportation. You must have someone with you to care for you for 24 HOURS AFTER YOUR SURGERY. We will not begin your operation unless a responsible adult is with you. Small children must have two people with them. 11. We may need to admit you to the hospital after your operation if we feel that it is safest and best for you. 12. If you have any questions that come up after you leave today, please call your surgeon, or you may call us at , 7:00 a.m. to 4:00 p.m. week. To reach a member of our team after hours or to report a case cancelation please call [phone]. Please DO NOT bring your home medicati ons with you on the day of surgery unless specifically directed to do so. documented in this encounter Medications at Time [...] on filedocumented in this encounter Care Teams Gelatin Powder Mixer Relationship Specialty Start Date End Date Nela Breen MD PCP - General Family Medicine 07/31/18 07/14/[address] [place] [address] documented as of this encounter
--- OUTSIDE RECORDS SUMMARY | 2021-11-30 11:48 | XMS_ITS | Encounter Summary ---
:1955 Author Organization [facility] [place] [address] Care Team Providers Name Role Phone Neal Breen MD Primary Care Provider [phone] Reason for Visit Reason Onset Date Comments Cfljaco-vwwley-yc 01/16/2019 Encounter Details Date Type Department Care Team Description 01/16/2019 Telephone Orthopaedics - Kate Hankins-follow-up [address] [facility] [address] [phone] [place] [address] Social History Tobacco Use Types [...] this encounter Miscellaneous Notes Telephone Encounter - Kate Og RN - 01/16/2019 8:55 AM EDT Patient evaluated by Dr. Manuel 12/20/18 for left shoulder pain, rotator cuff tear. Rotator cuff repair discussed, per note patient is interested in waiting until hunting season is over. Phone call to patient in follow-up, spoke with Rubi. Left message for return call. documented in this encounter Plan of Treatment Not on filedocumented as of this encounter Visit Diagnoses Not on filedocumented in this encounter Care Teams Fugitive Investigator Relationship Specialty Start Date End Date Neal Breen MD PCP - General Family Medicine 07/31/18 07/14/[address] [place] [address] documented as of this encounter
--- OUTSIDE RECORDS SUMMARY | 2021-11-30 11:48 | XMS_ITS | Encounter Summary ---
:1955 [facility] [place] [address] Care Team Providers Name Role Phone Neal Breen MD Primary Care Provider [phone] Reason for Visit Reason Onset Date Comments Medication Management 03/13/2019 Encounter Details Date Type Department Care Team Description 03/13/2019 Telephone Pharmacy -Trish Woodruff, Medication Management [address] [place] [address] DR Oliver [facility] [address] [place], [place] [phone] [id number] Social History Tobacco Use Types Packs/Day Years [...] this encounter Miscellaneous Notes Telephone Encounter - Trish Figueroa CPhT - 03/13/2019 4:59 PM EST Medication and allergy lists obtained via phone with patient. Reviewed by Certified Medication List Bead Flipper. Electronically signed by Trish Figueroa CPhT 03/13/2019 5:03 PM Pre-op appointment : 03/22 Anticipated surgery date of: 03/29 Pharmacy: [facility] Electronically signed by: Trish Figueroa CPhT 03/13/19 1704 documented in this encounter Plan of Treatment Not on filedocumented as of this encounter Visit Diagnoses Not on filedocumented in this encounter Care Teams Design Intern Relationship Specialty Start Date End Date Neal Breen MD PCP - General Family Medicine 07/31/18 07/14/[address] [place] [id number] documented as of this encounter
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
--- OUTSIDE RECORDS SUMMARY | 2021-11-30 11:48 | XMS_ITS | Encounter Summary ---
:1955 Author Organization [facility] [place] [address] Care Team Providers Name Role Phone Neal Breen MD Primary Care Provider [phone] Reason for Visit Reason Comments Hematuria started this AM, x 2 episode s Other near syncope this AM Encounter Details Date Type Department Care Team Description 01/12/2019 Emergency Emergency - April Zhou MD [address] [place] [id number] (Wo rk) Social History Tobacco Use [...] Sign Reading Time Taken Comments Blood Pressure 112/67 01/12/2019 6:47 PM EDT Pulse 59 01/12/2019 6:47 PM EDT Temperature 36.9 ??C (98.5 ??F) 01/12/2019 3:29 PM EDT Respiratory Rate 16 01/12/2019 3:29 PM EDT Oxygen Saturation 95% 01/12/2019 5:00 PM EDT Inhaled Oxygen Concentration - - Weight 105.7 kg (233 lb) 01/12/2019 3:29 PM EDT Height - - Body Mass Index 33.43 01/03/2019 2:14 PM EDT documented in this encounter Functional [...] as of this encounter Discharge Instructions Discharge InstructionsApril Ch MD - 01/12/2019 6:41 PM EDT Images from the original note were not included. [facility] Blood in the Urine: Care Instructions Your Care Instructions Blood in the urine, or hematuria, may make the urine look red, brown, or pink. There may be blood every time you urinate or just from time to time. You cannot always see blood in the urine, but it willshow up in a urine test. Blood in the urine may be serious. It should always be checked by a doctor. Your doctor may recommend more tests, including an X-ray, a CT scan, or a cystoscopy (which lets a doctor look inside the urethra and bladder). Blood in the urine can be a sign of another problem. Common causes are bladder infections and kidneystones. An injury to your groin or your genital area can also cause bleeding in the urinary tract. Very hard exercise--such as running a marathon--can cause blood in the urine. Blood in the urine can also be a sign of kidney disease or cancer in the bladder or kidney. Many cases of blood in the urine are caused by a harmless condition that runs in families. This is called benign familial hematuria. It does not need any treatment. Sometimes your urine may look red or brown even though it does not contain blood. For example, not getting enough fluids (dehydration), taking certain medicines, or having a liver problem can change the color of your urine. Eating foods such as beets, rhubarb, or blackberries or foods with red food coloring can make your urine look red or pink. Follow-up care is a sandoval part of your treatment and safety. Be sure to make and go to all appointments, and call your doctor if you are having problems. It's also a good idea to know your test results and keep a list of the medicines you take. When should you call for help? Call your doctor now or seek immediate medical care if: ? You have symptoms of a urinary infection. For example: ? You have pus in your urine. ? You have pain in your back just below your rib cage. This is called flank pain. ? You have a fever, chills, or body aches. ? It hurts to urinate. ? You have groin or belly pain. ? You have more blood in your urine. ??Watch closely for changes in your health, and be sure to contact your doctor if: ? You have new urination problems. ? You do not get better as expected. Where can you learn more? Go to https://www.FoodFan.net/patientEd. Enter N871 in the search box to learn more about Blood in the Urine: Care Instructions. Current as of: April 04, 2018 Content Version: 12.1 ?? [id number] [employer]. Care instructions adapted under license by [facility]. If you have questions about a medical condition or this instruction, always ask your healthcare professional. [employer] disclaims any warranty or liability for your use of this i nformation. Where can you learn more? Log into [employer] at www.Face to Face Live and enter the title of this document into the ???Search Medical Library?? box to learn more about your instructions. [facility] Cystoscopy: Before Your Procedure What is a cystoscopy? A cystoscopy is a procedure that lets a doctor look inside your bladder and urethra. The urethra is the tube that carries urine from the bladder to outside the body. The doctor uses a thin, lighted tool called a cystoscope. With this tool, he or she can look for kidney or bladder stones. The doctor can also look for tumors, bleeding, or infection. If you are in a clinic and you are awake, you will get gel to numb your urethra. This makes the procedure more comfortable. Then the doctor puts the tube into your urethra and moves it into your bladder. Next, the doctor fills your bladder with liquid. This helps him or her see better. It may cause you to feel pressure in your bladder area for a short time. If you are in the hospital, you may get medicine to make you sleep during the procedure. While you are asleep, the doctor can take samples of tissue. These will be checked for cancer and other problems. This is called a biopsy. If you have a biopsy, you may have a small amount of blood in your urine for several days. You may also need a catheter. It's a tube that drains urine from your bladder. Your doctor will take it out at your follow-up visit. Follow-up care is a sandoval part of your treatment and safety. Be sure to make and go to all appointments, and call your doctor if you are having problems. It's also a good idea to know your test results and keep a list of the medicines you take. What happens before the procedure? ??Preparing for the procedure ? Understand exactly what procedure is planned, along with the risks, benefits, and other options. ?? Tell your doctors ALL the medicines, vitamins, supplements, and herbal remedies you take. Some of these can increase the risk of bleeding or interact with anesthesia. ? If you take blood thinners, such as warfarin (Coumadin), clopidogrel (Plavix), or aspirin, be sure to talk to your doctor. He or she will tell you if you should stop taking these medicines beforeyour procedure. Make sure that you understand exactly what your doctor wants you to do. ? Your doctor will tell you which medicines to take or stop before your procedure. You may need to stop taking certain medicines a week or more before the procedure. So talk to your doctor as soon as you can. ? If you have an advance directive, let your doctor know. It may include a living will and a durable power of defense attorney for health care. Bring a copy to the hospital. If you don't have one, you may want to prepare one. It lets your doctor and loved ones know your health care wishes. Doctors advise that everyone prepare these papers before any type of surgery or procedure. Procedures can be stressful. This information will help you understand what you can expect. And it will help you safely prepare for your procedure. What happens on the day of the procedure? ?? Follow the instructions exactly about when to stop eating and drinking. If you don't, your procedure may be canceled. If your doctor told you to take your medicines on the day of your procedure, take them with only a sip of water. ? Take a bath or shower before you come in for your procedure. Do not apply lotions, perfumes, deodorants, or nail mongolian. ? Take off all jewelry and piercings. And take out contact lenses, if you wear them. ??At the hospital or surgery center ?? Bring a picture ID. ? You will be asked to empty your bladder just before the procedure. ? You will be kept comfortable and safe by your anesthesia provider. The anesthesia may make yousleep. Or it may just numb the area being worked on. ? In most cases, the cystoscope is in the bladder for less than 10 minutes. But the entire test may take up to 45 minutes or longer. Going home ?? Be sure you have someone to drive you home. Anesthesia and pain medicine make it unsafe for you to drive. ? You will be given more specific instructions about recovering from your procedure. They will cover things like diet, wound care, follow-up care, driving, and getting back to your normal routine. When should you call your doctor? ?? You have questions or concerns. ? You don't understand how to prepare for your procedure. ? You become ill before the procedure (such as fever, flu, or a cold). ? You need to reschedule or have changed your mind about having the procedure. Where can you learn more? Go to https://www.FoodFan.net/patientEd. Enter H880 in the search box to learn more about Cystoscopy: Before Your Procedure. Current as of: April 04, 2018 Content Version: 12.1 ?? [id number] [employer]. Care instructions adapted under license by [facility]. If you have questions about a medical condition or this instruction, always ask your healthcare professional. [employer] disclaims any warranty or liability for your use of this i nformation. Where can you learn more? Log into [employer] at www.Face to Face Live and enter the title of this document into the ???Search Medical Library?? box to learn more about your instructions. documented in this encounter Medications at Time [...] times daily per tablet for 10 days. ciprofloxacin HCl (CIPRO) Take 1 tablet (500 [...] BID PRN documented as of this encounter ED Notes Char Amaya CNA - 01/12/2019 6:34 PM EDT Post void 35 mL April Ch MD - 01/12/2019 3:51 PM EDT History Chief Complaint Patient presents with ??? Hematuria started this AM, x 2 episodes ??? Other near syncope this AM 63-year-old male with history of hypertension hyperlipidemia and prior CVA presents for hematuria. Patient states that he was seen here last week for similar symptoms but was told he did not have a kidney stone but was placed on antibiotics. He is currently taking these antibiotics and today he went to the bathroom in the morning he was sitting on the toilet when he got up he noticed blood in the toilet but his stool was brown and no blood when he wipes. While he was taking a shower he felt the urgeto urinate and urinated and saw gross blood. He felt lightheaded and near syncopal at that time. He denies any current abdominal or back pain. He is not on any anticoagulation. No dysuria associated with this. The history is provided by the patient, the spouse and medical records. Male Problem Presenting symptoms: no dysuria Presenting symptoms comment: Hematuria Context: during urination Ineffective treatments: antibiotics. Associated symptoms: hematuria Associated symptoms: no abdominal pain, no diarrhea, no nausea and no vomiting Risk factors: kidney stones Dizziness Quality: Lightheadedness Severity: Moderate Onset quality: Sudden Timing: Intermittent Progression: Resolved Context: standing up Associated symptoms: no blood in stool, no chest pain, no diarrhea, no nausea, no shortness of breath and [...] (Right L2-5); Surgeon: Petr Brito MD; Location: [facility]; Service: Rehab Medicine; Laterality: N/A; ??? LUMBAR / THORACIC MEDIAL BRANCH BLOCK Right 08/15/2017 Procedure: LUMBAR/THORACIC MEDIAL BRANCH BLOCK - Right L2-L5; Surgeon: Neptali Toledo MD; Location: [address] [facility]; Service: [facility] Physiat[facility]; Laterality: [...] Last attempt to quit: 04/16/1989 Years since quittin.7 ??? Smokeless tobacco: Never Used Substance Use Topics ??? Alcohol use: Yes Comment: occasional beer ??? Drug use: No Review of Systems Constitutional: Negative for chills and fatigue. HENT: Negative for congestion, rhinorrhea and sore throat. Respiratory: Negative for cough and shortness of breath. Cardiovascular: Negative for chest pain and leg swelling. Gastrointestinal: Negative for abdominal pain, blood in stool, constipation, diarrhea, nausea and vomiting. Genitourinary: Positive for hematuria. Negative for dysuria. Musculoskeletal: Negative for back pain, neck pain and neck stiffness. Skin: Negative for rash. Neurological: Positive for dizziness and light-headedness. Negative for syncope. All other systems reviewed and are negative. Physical Exam ED Triage Vitals [01/12/19 1529] BP 99/57 MAP (mmHg) Pulse 58 Resp 16 Temp 98.5 ??F (36.9 ??C) SpO2 97 % Weight 105.7 kg (233 lb) Physical Exam Vitals signs and nursing note reviewed. Constitutional: Appearance: He is well-developed. HENT: Head: Normocephalic and atraumatic. Eyes: Conjunctiva/sclera: Conjunctivae normal. Neck: Musculoskeletal: Normal range of motion and neck supple. Cardiovascular: Rate and Rhythm: Normal rate and regular rhythm. Pulmonary: Effort: Pulmonary effort is normal. No respiratory distress. Breath sounds: Normal breath sounds. Abdominal: General: Bowel sounds are normal. Palpations: Abdomen is soft. Tenderness: There is no tenderness. There is no right CVA tenderness, left CVA tenderness, guardingor rebound. Genitourinary: Rectum: Guaiac result negative. No external hemorrhoid. Musculoskeletal: Normal range of motion. Skin: General: Skin is warm and dry. Neurological: Mental Status: He is alert and oriented to person, place, and time. Psychiatric: Behavior: Behavior normal. ED Course Procedures CT report from 01/03/2019 shows increased calyceal stone burden bilaterally without hydronephrosis with similar perinephric fat stranding. MDM MDM 63-year-old male with history of hypertension CVA prior kidney stones and prostatitis presents for recurrent hematuria. Patient was seen here last week treated for prostatitis and put on Cipro. He has been taking his antibiotics but had an episode of hematuria today twice and one associated episode of feeling lightheaded and faint. Patient's blood pressure and heart rate did change with position but he is not truly orthostatic. IV fluids given. He is hemodynamically stable and hemoglobin is within normal limits and unchanged from prior. Urinalysis does show gross blood with leukocytes and nitrates. Patient is seen [facility] in the past. Case was discussed with Dr. Neal. He recommends switching antibiotics to Bactrim based on patient's prior cultures. However it was not initiallynoted but the patient is allergic to sulfa. We will use Augmentin which was sensitive on the urine culture. If postvoid residual is within normal limits patient can be discharged to follow-up this week. He may likely need a cystoscopy. Precautions for return discussed and stressed need for follow-up. Patient and spouse verbalized understanding Clinical Impression: 1. Hematuria, unspecified type 2. Complicated UTI (urinary tract infection) ED Disposition None Electronically signed by: April Ch MD 01/12/19 2322 Abigail Marquis RN - 01/12/2019 3:33 PM EDT Pt sts had blood in toilet this AM when he had a BM, unsure if there was any blood in stool or just in urine documented in this encounter Plan of Treatment Not on filedocumented as of this encounter Procedures Procedure Name Priority Date/Time Associated Comments Diagnosis URINE CULTURE STAT 01/12/2019 7:08 PM Results for this EDT procedure are i n the results section. UA, MICROSCOPIC IF STAT 01/12/2019 4:11 PM Res ults for this INDICATED BY DIPSTICK EDT proced ure are in the results section. CBC WITH AUTO STAT 01/12/2019 4:05 PM Results for this DIFFERENTIAL PANEL EDT procedure are in the results section. CBC AND DIFFERENTIAL STAT 01/12/2019 4:05 PM R esults for this EDT procedure are i n the results section. BASIC METABOLIC PANEL STAT 01/12/2019 4:05 PM Results for this EDT procedure are i n the results section. documented in this encounter Results Urine Culture (01/12/2019 7:08 PM EDT) Analysis Performed At Path logist Time Signature Urine culture No growth 01/14/2019 [facility] ID 11:19 AM EDT [facility] Specimen Anatomical Collection Method Collection Time Receive d Time (Source) Location / / Volume Laterality Urine specimen URETHRAL STRUCTURE 01/12/2019 7:08 PM 0 01/13/2019 3:44 (specimen) / Unknown EDT AM EDT April Ch MD MICROBIOLOGY - GENERAL ORDER MASOUD Performing Organization Address City/State/ZIP Code Phon e Number [facility] CLIA# [id number] [place] [address] [facility] (ABNORMAL) UA, Microscopic If Indicated By Dipstick (01/12/2019 4:11 PM EDT) Patholo gist Method Time Signature Urine Color Brown (A) Yellow 01/12/2019 [facility] 5:24 PM EDT [facility] Urine Appearance Turbid (A) Clear 01/12/2019 [facility] 5:24 PM EDT [facility] Urine Specific >=1.030 (A) 1.001 - 01/12/2019 [facility] [place] 1.035 5:24 PM EDT [facility] Urine pH 6.5 4.6 - 8.0 01/12/2019 [facility] 5:24 PM EDT [facility] Urine Protein 100 (A) Negative 01/12/2019 [facility] MG/DL 5:24 PM EDT [facility] Urine Glucose Negative Negative 01/12/2019 [facility] MG/DL 5:24 PM EDT [facility] Urine Ketone Trace (A) Negative, 01/12/2019 [facility] 15 MG/DL 5:24 PM EDT [facility] Urine Bilirubin Moderate (A) Negative 01/12/2019 [facility] 5:24 PM EDT [facility] Urine Blood/Hb Large (A) Negative 01/12/2019 [facility] 5:24 PM EDT ON [facility] Urine 1.0 0.2 - 1.0 01/12/2019 [facility] Urobilinogen EU/DL 5:24 PM EDT ON [facility] Urine Nitrite Positive (A) Negative 01/12/2019 [facility] 5:24 PM EDT ON [facility] Urine Leukocyte Trace (A) Negative 01/12/2019 [facility] Esterase 5:24 PM EDT ON [facility] Urine WBC 6-12 (A) None seen, 01/12/2019 [facility] 0-5 /HPF 5:24 PM EDT ON [facility] Urine RBC TNTC (A) None seen, 01/12/2019 [facility] 0-3 /HPF 5:24 PM EDT ON [facility] Urine Epithelial Few None seen, 01/12/2019 [facility] Cells Few /HPF 5:24 PM EDT ON [facility] Urine Bacteria Few None seen, 01/12/2019 [facility] Rare, Few 5:24 PM EDT [facility] Specimen Anatomical Collection Method Collection Time Receive d Time (Source) Location / / Volume Laterality Urine specimen URETHRAL STRUCTURE 01/12/2019 4:11 PM 0 01/12/2019 4:59 (specimen) / Unknown EDT PM EDT April Ch MD URINE ORDERABLES Performing Organization Address City/State/ZIP Code Phon e Number [facility] CLIA# [id number] [place] [address] [facility] [address] [facility] CLIA#[id number] [place] [address] [facility] [address] (ABNORMAL) CBC and Differential (01/12/2019 4:05 PM EDT) Analysis Performed At Patho logist Time Signature WBC 6.9 4.6 - 10.2 01/12/2019 [facility] x 10*3/uL 4:17 PM EDT N [facility] RBC 4.55 (L) 4.69 - 01/12/2019 [facility] 6.13 x 4:17 PM EDT N [facility] 10*6/uL [facility] Hemoglobin 13.1 (L) 14.1 - 01/12/2019 [facility] 18.1 G/DL 4:17 PM EDT [facility] Hematocrit 39.9 (L) 43.5 - 01/12/2019 [facility] 53.7 % 4:17 PM EDT [facility] MCV 87.7 80.0 - 01/12/2019 [facility] 97.0 FL 4:17 PM EDT [facility] MCH 28.9 27.0 - 01/12/2019 [facility] 31.2 PG 4:17 PM EDT [facility] MCHC 32.9 31.8 - 01/12/2019 [facility] 35.4 G/DL 4:17 PM EDT [facility] RDW 13.9 11.6 - 01/12/2019 [facility] 14.8 % 4:17 PM EDT [facility] Platelets 268 142 - 424 01/12/2019 [facility] X 10*3/uL 4:17 PM EDT [facility] MPV 7.5 (L) 7.8 - 11.0 01/12/2019 [facility] FL 4:17 PM EDT [facility] Neutrophil % 73 37 - 80 % 01/12/2019 [facility] 4:17 PM EDT [facility] Lymphocyte % 17 10 - 50 % 01/12/2019 [facility] 4:17 PM EDT [facility] Monocyte % 7 0 - 12 % 01/12/2019 [facility] 4:17 PM EDT [facility] Eosinophil % 2 0 - 7 % 01/12/2019 [facility] 4:17 PM EDT [facility] Basophil % 1 0 - 2 % 01/12/2019 [facility] 4:17 PM EDT [facility] Neutrophil 5.0 2.0 - 6.9 01/12/2019 [facility] Absolute x 10*3/uL 4:17 PM EDT [facility] Lymphocyte 1.2 0.6 - 3.4 01/12/2019 [facility] Absolute x 10*3/uL 4:17 PM EDT [facility] Monocyte 0.5 0.0 - 0.9 01/12/2019 [facility] Absolute x 10*3/uL 4:17 PM EDT [facility] Eosinophil 0.1 0.0 - 0.7 01/12/2019 [facility] Absolute x 10*3/uL 4:17 PM EDT [facility] Basophil 0.0 0.0 - 0.2 01/12/2019 [facility] Absolute x 10*3/uL 4:17 PM EDT [facility] Specimen Anatomical Collection Method / Collection Time Recei ericka Time (Source) Location / Volume Laterality Blood specimen Venipuncture / 01/12/2019 4:05 01/13/20 19 4:07 (specimen) Unknown PM EDT PM EDT April Ch MD LAB BLOOD ORDERABLES Performing Organization Address City/State/ZIP Code Phon e Number [id number] [place] [address] [facility] [address] [facility][id number] [place] [address] [facility] [address] (ABNORMAL) Basic Metabolic Panel (01/12/2019 4:05 PM EDT) P athologist Signature Sodium 141 136 - 144 01/12/2019 [facility] MMOL/L 4:31 PM EDT [facility] Potassium 3.7 3.5 - 5.1 01/12/2019 [facility] MMOL/L 4:31 PM EDT [facility] Chloride 108 101 - 111 01/12/2019 [facility] MMOL/L 4:31 PM EDT [facility] CO2 24 23 - 30 01/12/2019 [facility] MMOL/L 4:31 PM EDT [facility] BUN 16.0 8.0 - 26.0 01/12/2019 [facility] MG/DL 4:31 PM EDT [facility] Glucose 121 (H) 79 - 115 01/12/2019 [facility] MG/DL 4:31 PM EDT [facility] Creatinine 0.97 0.90 - 01/12/2019 [facility] 1.30 MG/DL 4:31 PM EDT [facility] Calcium 9.2 8.9 - 10.3 01/12/2019 [facility] MG/DL 4:31 PM EDT [facility] Anion Gap 9 6 - 16 01/12/2019 [facility] MMOL/L 4:31 PM EDT [facility] Est. GFR 83 >=60 01/12/[facility] Non- ML/MIN/1.7 4:31 PM EDT [facility] [place] 3 M*2 [facility] Comment: GFR estimated by CKD-EPI equati ons, reportable up to 90 ML/MIN/1.73 M*2 Est. GFR >=90 >=60 ML/MIN/1.73 01/12/2019 4: 31 PM [facility] [place] M*2 EDT [facility] Comment: GFR estimated by CKD-EPI equati ons, reportable up to 90 ML/MIN/1.73 M*2 Specimen Anatomical Collection Method / Collection Time Recei ericka Time (Source) Location / Volume Laterality Blood specimen Venipuncture / 01/12/2019 4:05 01/13/20 19 4:07 (specimen) Unknown PM EDT PM EDT April Ch MD LAB BLOOD ORDERABLES Performing Organization Address City/State/ZIP Code Phon e Number [facility] [id number] [place] [address] [facility] [address] [facility]#[id number] [place] [address] [facility] [facility] [address] documented in this encounter Visit Diagnoses Diagnosis Hematuria, unspecified type - Primary Complicated UTI (urinary tract infection ) documented in this encounter Administered Medications Inactive Administered Medications - up to 3 most recent administrations Medication Order MAR Action Action Date Dose Rate Site 0.9% NaCl bolus New Bag 01/12/2019 5:17 PM EDT 1,000 mLs 1,000 mL Once, Intravenous, On 01/12/19 at 1700, For 1 dose amoxicillin-clavulanate (AUGMENTIN) 875-125 Given 01/12/2019 7:17 PM EDT 875 mg mg per tablet 875 mg 875 mg Once, Oral, On 01/12/19 at 1835, For 1 dose, Purpose: Empiric (uncertain diagnosis, cultures pending), Body System: Genitourinary, Indication: Cystitis documented in this encounter Active and Recently Administered Medications Times are shown in EDT. Scheduled Medication Order 01/10/2019 01/11/2019 01/12/2019 0.9% NaCl bolus (COMPLETED) 1717 (New Bag - Provider: Geri Chao, BERNARD) 1,000 mL Once, Intravenous, Sat 01/12/19 at 1700, For 1 dose amoxicillin-clavulanate (AUGMENTIN) 875-125 mg per tablet 875 mg (COMPLETED) 1917 (Given - Provider: Darnell Vicente RN) 875 mg Once, Oral, Sat 01/12/19 at 1835, For 1 dose, Purpose: Empiric (uncertain diagnosis, cultures pending), Body System: Genitourinary, Indication: Cystitis documented in this encounter Care Teams Locomotive Driver Relationship Specialty Start Date End Date Neal Breen MD PCP - General Family Medicine 07/31/18 07/14/[address] [place] [id number] documented as of this encounter
--- OUTSIDE RECORDS SUMMARY | 2021-11-30 11:48 | XMS_ITS | Encounter Summary ---
:1955 Author Organization [facility] [place] [address] Care Team Providers Name Role Phone Neal Breen MD Primary Care Provider [phone] Reason for Visit Reason Onset Date Comments Medication Refill 01/09/2019 Encounter Details Date Type Department Care Team Description 01/09/2019 Telephone [facility] Hawa Sy RN Medication Refill Network [facility] [place] [address] [place] [address] Social History Tobacco Use Types [...] Telephone Encounter - Nicole Sy RN - 01/09/2019 12:31 PM EDT Fax request for refills, patient needs prescription for test strips. Prescription sent to pharmacy. Electronically signed by: Nicole Sy RN 01/09/19 1232 documented in this encounter Plan of Treatment Not on filedocumented as of this encounter Visit Diagnoses Not on filedocumented in this encounter Care Teams Legal Receptionist Relationship Specialty Start Date End Date Neal Breen MD PCP - General Family Medicine 07/31/18 07/14/[address] [place] [address] documented as of this encounter
--- OUTSIDE RECORDS SUMMARY | 2021-11-30 11:49 | XMS_ITS | Encounter Summary ---
:1955 Author Organization [facility] [place] [address] Care Team Providers Name Role Phone Neal Krueger MD Primary Care Provider [phone] Reason for Referral Consultation (Routine) - Closed Specialty Diagnoses / Procedures Referred By Contact Refer red To Contact Urology Diagnoses Dysuria Neal Krueger MD [id number] [address] [place] [address] [facility] [place] [address] [place] [address] Fax: Referral ID Status Reason Start Date Expiration Date Visits V isits Requested Authorized [id number] Closed Specialty 07/31/2018 07/31/2019 1 1 Services Required Reason for Visit Reason Comments New Patient Est care Encounter Details Date Type Department Care Team Description 07/31/2018 Initial consult [facility] Neal Krueger itive deficit due to multiple acute subcortical cerebrovascular accidents (CVAs) (HCC) (Primary Dx); Network Family Miguel MD Type 2 diabetes mellitus with hyperglyce jackelyn, without long-term current use of insulin (HCC); [facility] [address] [facility] Hypertension as sociated with diabetes ([facility]); [facility] Hyperlipidemia due to type 2 diabetes me llitus ([facility]); [address] [place] [address] Pityriasis rosea; [address] [address] Dysuria [place], [place] [phone] (Work) [phone] Social History Tobacco Use Types Packs/Day Years [...] Sign Reading Time Taken Comments Blood Pressure 110/73 07/31/2018 1:14 PM EDT Pulse 63 07/31/2018 1:14 PM EDT Temperature 36.6 ??C (97.8 ??F) 07/31/2018 1:14 PM EDT Respiratory Rate 20 07/31/2018 1:14 PM EDT Oxygen Saturation 97% 07/31/2018 1:14 PM EDT Inhaled Oxygen Concentration - - Weight 112.9 kg (249 lb) 07/31/2018 1:14 PM EDT Height 179.1 cm (5' 10.5) 07/31/2018 1:14 PM EDT Body Mass Index 35.22 07/31/2018 1:14 PM EDT documented in this encounter Functional [...] as of this encounter Progress Notes Neal Krueger MD - 07/31/2018 1:15 PM EDT Subjective: Dario Mckeon is a 62 y.o. male. Chief Complaint Patient presents with ??? New Patient Est care HPI: Pt is here to establish care with PCP. Pt's SO is present and assisted with giving the HPI. Pt has a significant family hx of alzheimer's - mother and father. Pt endorses short-term memory loss and notes that his father started showing sx around the same age that he is currently. Pt is already established with neurologist, Dr. Sher, and is currently taking Aricept and memantine. Pt has had two strokes recently - first one approximately 1 year ago - but pt notes memory loss was occurring before strokes. DM2 has been a problem for years - improved with metformin. Pt checked his BG before today's visit, and it was 151. His last a1c was 6.2. Pt has a h/o HTN that has been a problem for years. Today severity is stable and at goal with a pressure of 110/73. It is improved by medications: metoprolol - keeping up with medication regimen - not missing doses - denies any medication side effects. Pt denies chest pain, palpitations. Hyperlipidemia - cholesterol has been a problem for years. It is improved by medications: atorvastatin - adhering to medication regimen and no side effects reported. Pt endorses a rash on his upper back that appeared suddenly within the last few weeks. The rash doesnot itch. Pt reports dysuria that has been a problem for 1 week with associated boudreaux discharge when he urinates. He endorses a hx of kidney stones, but his current sx are not similar to when he has had kidney stones in the past. Review of Systems Constitutional: Negative for malaise/fatigue and weight loss. Cardiovascular: Negative for chest pain and palpitations. Genitourinary: Positive for dysuria. Boudreaux discharge Musculoskeletal: Negative for falls. Skin: Positive for rash (upper back). Negative for itching. Neurological: Negative for focal weakness. Psychiatric/Behavioral: Positive for memory loss (short-term). All other systems reviewed and are negative. Past Medical History: Diagnosis Date ??? Acute CVA (cerebrovascular accident) (HCC) 09/16/2017 ??? Arthritis ??? 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 Diabetes mellitus (HCC) ??? Hyperlipemia ??? Hypertension ??? Ruptured appendix ??? Tachycardia Social History Substance Use Topics ??? Smoking status: Former Smoker Types: Cigarettes Quit date: 04/16/1989 ??? Smokeless tobacco: Never Used ??? Alcohol use Yes Comment: occasional beer Family History Problem Relation Age of Onset ??? Hypertension Mother ??? Alzheimer's disease Mother ??? Heart disease Mother ??? Kidney disease Mother ??? Diabetes Father ??? Heart disease Father ??? Alzheimer's disease Father ??? Alcohol abuse Brother ??? Alzheimer's disease Maternal Aunt ??? Alzheimer's disease Maternal Grandmother ??? Cancer Paternal Grandmother ??? Cancer Paternal Grandfather ??? Stroke Neg Hx Objective Vitals: 07/31/18 1314 BP: 110/73 Pulse: 63 Temp: 97.8 ??F (36.6 ??C) Resp: 20 SpO2: 97% PainSc: 0-Zero Position: Sitting BP Readings from Last 3 Encounters: 07/31/18 110/73 06/13/18 138/86 03/06/18 130/80 Physical Exam Constitutional: Patient appears well-developed and well-nourished. No distress. Obese. Head: Normocephalic and atraumatic. Eyes: Conjunctivae are normal. Right eye exhibits no discharge. Left eye exhibits no discharge. No scleral icterus. Neck: Grossly normal range of motion. Neck supple. Pulmonary/Chest: Effort normal. No respiratory distress. Musculoskeletal: Grossly normal range of motion. No obvious deformity. Neurological: Alert and oriented. Normal muscle tone. Skin: Skin is warm and dry. No pallor. Erythematous patches in Sanger tree pattern on back Psychiatric: Patient has a normal mood and affect. Behavior is normal. Foot exam performed including visual inspection, sensory exam using a monofilament, and pulse exam. Animal naming test: 12 Mini-co/5 Lab Results Component Value Date HBA1C 6.2 (H) 09/16/2017 Lab Results Component Value Date CHOL 121 09/16/2017 TRIG 282 (H) 09/16/2017 HDL 32 (L) 09/16/2017 LDL 33 09/16/2017 Study Result MRI BRAIN WITH AND WITHOUT CONTRAST, 07/06/2018 10:17 PM INDICATION: \ I62.02 Nontraumatic subacute subdural hemorrhage (HCC) COMPARISON: Multiple MRIs, most recent 03/23/2018. TECHNIQUE: Multiplanar, multi-sequence MR imaging of the entire brain was performed before and afterintravenous administration of gadolinium-based contrast. FINDINGS: Calvarium/skull base: No focal marrow replacing lesion suggestive of neoplasm. Orbits: No focal mass. Paranasal sinuses: No air-fluid levels or substantial mucosal disease. Brain: Evolving intraparenchymal hematoma now measuring 2.9 x 3.3 x 1.3 cm, mildly decreased in sizefrom 03/23/2018 when measured in similar manner, in the right frontal lobe. An area of hyperintense signal along the margin of the hematoma on postcontrast images likely corresponds with intrinsic T1 hyp erintensity on the precontrast T1 sagittal sequence (though comparison is difficult without precontrast T1 axial images); this area is curvilinear rather than masslike. Numerous smaller but variably sized foci of susceptibility artifact in both cerebral hemispheres compatible with remote hemorrhages. Small foci of restricted diffusion in the right frontal white matter adjacent and inferior to the caudate head. Scattered foci of increased T2/FLAIR signal in the periventricular and subcortical white matter, likely reflecting chronic microvascular disease. No hydrocephalus. Diffuse cerebral volume loss. Grossly normal flow-related signal in the major intracranial arteries and dural sinuses. Additional comments: None. CONCLUSION: ?? 1. Evolving right frontal intraparenchymal hematoma, mildly decreased in size from 03/23/2018. Again,this hematoma may relate to amyloid angiopathy given changes of numerous remote small hemorrhages inboth cerebral hemispheres. Hypertension may also be contributing. 2. No new hemorrhage. 3. Small foci of restricted diffusion in the right frontal white matter adjacent and inferior to thecaudate head concerning for acute ischemia. This finding was discussed with Ni Gardner, a nurse answering on behalf of Dr. Tr Sher, by Dr. Miguel Giordano via telephone on 07/09/2018 at 12:03 PM. Scans Related to Order [id number] Scan on 06/26/2018 ??1:45 PM by Bess Faust : MRI Order [facility] on 06/26/2018 ??1:45 PM by Bess Faust : MRI Order [facility] I have personally reviewed the procedure note and/or have reviewed and interpreted this image/images. Reviewed d/c summary 09/18/17 - seen for acute CVA. Had memory issues, MRI showed acute CVA. At that time ASA stopped, pt switched to clopidogrel. Assessment: 1. 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 Type 2 diabetes mellitus with hyperglycemia, without long-term current use of insulin (HCC) Hemoglobin A1C LIPID PROFILE Comprehensive Metabolic Panel Albumin, Urine 3. Hypertension associated with diabetes (HCC) 4. Hyperlipidemia due to type 2 diabetes mellitus (HCC) 5. Pityriasis rosea 6. Dysuria Ambulatory Referral To Urology Plan: 1. Cognitive deficit - mild - see testing above --Discussed solutions for combating short-term memory loss. --Continue follow up with neuro for management of memantine and Aricept. 2. DM2 --Albumin ordered today. --A1c ordered today. --Rx metformin, take as directed. 3. HTN --CMP ordered today. --Rx metoprolol, take as directed. 4. HLD --Lipid profile ordered today. --Rx atorvastatin, take as directed. 5. Pityriasis rosea - likely dx --Rx Kenalog, take as directed. Advised pt alert me if rash significantly worsens. 6. Dysuria --Referral to urology. --Follow up in 6 to 8 weeks. This document serves as a record of services personally performed by Neal Krueger MD. It wascreated on their behalf by Funmilayo Handy, a trained medical specialist. The creation of this record is theprovider's dictation and/or activities during this visit. Electronically signed by: Casandra Isaac Scribe 07/31/2018 1:48 PM I agree the documentation is accurate and complete. Electronically signed by: Neal Krueger MD 08/01/2018 11:01 AM Electronically signed by: Neal Krueger MD 08/01/18 1102 documented in this encounter Miscellaneous Notes Addendum Note - Neal Krueger MD - 07/31/2018 1:15 PM EDT Addended by: NEAL KRUEGER on: 08/01/2018 12:07 PM Modules accepted: Orders documented in this encounter Plan of Treatment Scheduled Orders Name Type Priority Associated Diagnoses Order S chedule Urinalysis With Microscopic Lab Routine Dysuria Ordered: 07/31/2018 documented as of this encounter Procedures Procedure Name Priority Date/Time Associated Diagnosis Comme nts ALBUMIN, URINE Routine 07/31/2018 2:18 PM Type 2 diabetes Resu lts for this EDT mellitus with procedure are in the hyperglycemia, results secti on. without long-term current use of insulin (HCC) documented in this encounter Results GC/Chlamydia Amp (07/31/2018 2:18 PM EDT) [facility] Method Time Signature CHLAMYDIA Negative Negative 08/01/2018 [facility] AMPLIFICAT 2:24 AM EDT [facility] GC AMPLIFICATION Negative Negative 08/01/2018 [facility] 2:24 AM EDT [facility] CHLAMYDIA/GC 08/01/2018 [facility] COMMENT 2:24 AM EDT [facility] Comment: INTERPRETATION: A negative result for Ch lamydia indicates that Chlamydia trachomatis plasmid DNA was not detected. A negative result does not preclude Chlamydia trachomatis infection because results are dependent on adequate specimen collecti on, absence of inhibitors and sufficient DNA to be detected. INTERPRETATION: A negative result for GC indicates that Neisseria gonorrhoeae DNA was not detected. A negative result does not preclude Neisseria gonorrhoeae infection because results are dependent on a dequate specimen collection, absence of inhibitors and sufficient DNA to be detected. METHODOLOGY: This test was performed usi ng the Camila CT Chlamydia trachomatis/GC Neisseria gonorrhoeae PCR Amplified Assay using the [employer] MANDY 4800 platform. CHLAM/ GC SPEC DESC Urine 08/01/2018 2:24 AM E DT [facility] LABS Specimen Anatomical Collection Method Collection Time Receive d Time (Source) Location / / Volume Laterality Other URINE SPECIMEN / 07/31/2018 2:18 PM 07/31 2:55 Unknown EDT PM EDT Neal Krueger MD BODY FLUIDS AND STOOLS (NON- MICRO) ORDERABLES Performing Organization Address City/State/ZIP Code Phon e Number [facility] CLIA# [id number] [place] [address] [facility] Trichomonas Culture (07/31/2018 2:18 PM EDT) Patholo gist Method Time Signature Trichomonas Negative for 08/08/2018 [facility] Culture ID Trichomonas, 11:19 AM EDT [facility] 7 days [facility] LABS Specimen Anatomical Collection Method Collection Time Receive d Time (Source) Location / / Volume Laterality Other PENILE STRUCTURE / 07/31/2018 2:18 PM 2:55 Unknown EDT PM EDT Neal Krueger MD MICROBIOLOGY - GENERAL ORDER MASOUD Performing Organization Address City/[facility]/ZIP Code Phon e Number [facility] CLIA# [id number] [place] [address] [facility] (ABNORMAL) Urine Culture (07/31/2018 2:18 PM EDT) Component Value Ref Test Method Analysis Performed Patholog ist Range Time At Signature Urine 50,000-100,000 MICRO SEGUNDO 08/03/2018 [facility] culture ID CFU/mL SUSCEPTIBILITY 8:46 AM [facility] PATH[facility] coli (A) LABS Specimen Anatomical Collection Method Collection Time Receive d Time (Source) Location / / Volume Laterality Urine specimen URETHRAL STRUCTURE 07/31/2018 2:18 PM 0 07/31/2018 2:55 (specimen) / Unknown EDT PM EDT Organism Antibiotic Method Susceptibility Escherichia coli Organism ID MICRO SEGUNDO SUSCEPTIBILITY Escherichia coli Amoxicillin + K MICRO SEGUNDO SUSCEPTIBILITY <=4/2: Susceptible Clavulanate Escherichia coli Ampicillin MICRO SEGUNDO SUSCEPTIBILITY >16: R esistant Escherichia coli Ampicillin/Sulbactam MICRO SEGUNDO SUSCEPTIBILITY 1 6/8: Intermediate Escherichia coli Aztreonam MICRO SEGUNDO SUSCEPTIBILITY <=4: S usceptible Escherichia coli Cefazolin MICRO SEGUNDO SUSCEPTIBILITY <=2: S usceptible Escherichia coli Cefotaxime MICRO SEGUNDO SUSCEPTIBILITY <=2: S usceptible Escherichia coli Ceftriaxone MICRO SEGUNDO SUSCEPTIBILITY <=1: S usceptible Escherichia coli Cefuroxime MICRO SEGUNDO SUSCEPTIBILITY <=4: S usceptible Escherichia coli Ciprofloxacin MICRO SEGUNDO SUSCEPTIBILITY <=1: S usceptible Escherichia coli Ertapenem MICRO SEGUNDO SUSCEPTIBILITY <=0.5: Susceptible Escherichia coli Gentamicin MICRO SEGUNDO SUSCEPTIBILITY <=1: S usceptible Escherichia coli Meropenem MICRO SEGUNDO SUSCEPTIBILITY <=1: S usceptible Escherichia coli Nitrofurantoin MICRO SEGUNDO SUSCEPTIBILITY <=32: Susceptible Escherichia coli Piperacillin/Tazobactam MICRO SEGUNDO SUSCEPTIBILIT Y <=4: Susceptible Escherichia coli Tetracycline MICRO SEGUNDO SUSCEPTIBILITY >8: Re sistant Escherichia coli Trimethoprim/Sulfamethoxa MICRO SEGUNDO SUSCEPTIBIL ITY >2/38: Resistant zole Neal Krueger MD MICROBIOLOGY - GENERAL ORDER MASOUD Performing Organization Address City/[facility] Phon e Number [facility] CLIA# [id number] [place] [address] [facility] Albumin, Urine (07/31/2018 2:18 PM EDT) [facility] Method Time Signature Urine Albumin 38 MG/L [facility]/31/2018 [facility]16 PM [facility]T [facility] U Creatinine 307 MG/DL 07/31/2018 [facility] Concent[facility] 9:16 PM EDT [facility] U Albumin/G 12 0 - 30 mg/G 07/31/2018 [facility] Creatinine CREATININE 9:16 PM EDT [facility] U Interval Random 07/31/2018 [facility]16 PM [facility] U Volume 30 ML 07/31/2018 [facility] 9:16 PM EDT [facility] U Protein 26 MG/DL 07/31/2018 [facility] 9:16 PM EDT [facility] Specimen Anatomical Collection Method Collection Time Receive d Time (Source) Location / / Volume Laterality Urine specimen 07/31/2018 2:18 PM 019 2:55 (specimen) EDT PM EDT Neal Krueger MD URINE ORDERABLES Performing Organization Address City/[facility] Phon e Number [facility] CLIA# [id number] [place] [address] [facility] (ABNORMAL) Comprehensive Metabolic Panel (07/31/2018 2:18 PM EDT) Analysis Performed At Patho logist Time Signature Sodium 139 136 - 144 07/31/2018 [facility] MMOL/L 3:14 PM EDT [facility] Potassium 4.0 3.5 - 5.1 07/31/2018 [facility] MMOL/L 3:14 PM EDT [facility] Chloride 106 101 - 111 07/31/2018 [facility] MMOL/L 3:14 PM EDT [facility] CO2 25 23 - 30 07/31/2018 [facility] MMOL/L 3:14 PM EDT [facility] Glucose 128 (H) 79 - 115 07/31/2018 [facility] MG/DL [facility] Creatinine 0.90 0.90 - 07/31/2018 [facility] 1.30 MG/DL 3:14 PM [facility] Calcium 9.1 8.9 - 10.3 07/31/2018 [facility] MG/DL 3:14 PM [facility] Total Protein 7.2 6.5 - 8.1 07/31/2018 [facility] G/DL 3:14 PM EDT [facility] Albumin 3.7 3.5 - 5.0 07/31/2018 [facility] G/DL 3:14 PM [facility] Total Bilirubin 0.6 0.3 - 1.2 07/31/2018 [facility] MG/DL 3:14 PM [facility] Alkaline 90 32 - 91 07/31/2018 [facility] Phosphatase IU/L 3:14 PM [facility] AST (SGOT) 22 15 - 41 07/31/2018 [facility] IU/L 3:14 PM [facility] ALT (SGPT) 27 17 - 63 07/31/2018 [facility] IU/L 3:14 PM [facility] Anion Gap 8 6 - 16 07/31/2018 [facility] MMOL/L 3:14 PM EDT [facility] Est. GFR >=90 >=60 07/31/2018 [facility] Non- ML/MIN/1.7 3:14 PM EDT [facility] [place] 3 M*2 [facility] Comment: GFR estimated by CKD-EPI equations, repo rtable up to 90 ML/MIN/1.73 M*2 Est. GFR >=90 >=60 ML/MIN/1.73 07/31/2018 3: 14 PM [facility] [place] M*2 EDT [facility] Comment: GFR estimated by CKD-EPI equations, repo rtable up to 90 ML/MIN/1.73 M*2 BUN 23.0 8.0 - 26.0 MG/DL 07/31/2018 3:14 PM EDT [facility] Specimen Anatomical Collection Method / Collection Time Recei ericka Time (Source) Location / Volume Laterality Blood specimen Venipuncture / 07/31/2018 2:18 08/01/19 19 2:51 (specimen) Unknown PM EDT PM EDT Neal Krueger MD LAB BLOOD ORDERABLES Performing Organization Address City/State/ZIP Code Phon e Number [facility] CLIA# [id number] [place] [address] [facility] [address] [facility] CLIA#[id number] [place] [address] [facility] [address] (ABNORMAL) LIPID PROFILE (07/31/2018 2:18 PM EDT) [facility] Method Time Signature Total Cholesterol 199 <=200 07/31/2018 [facility] MG/DL 3:14 PM EDT [facility] Triglycerides 361 (H) 14 - 150 07/31/2018 [facility] MG/DL 3:14 PM EDT [facility] HDL Cholesterol 29 (L) 40 - 60 07/31/2018 [facility] MG/DL 3:14 PM EDT [facility] LDL Cholesterol 98 0 - 99 07/31/2018 [facility] Calculated MG/DL 3:14 PM EDT [facility] Total Chol / HDL 6.9 07/31/2018 [facility] Cholesterol 3:14 PM EDT [facility] Non-HDL 170 MG/DL 07/31/2018 [facility] Cholesterol 3:14 PM EDT [facility] Specimen Anatomical Collection Method / Collection Time Recei ericka Time (Source) Location / Volume Laterality Blood specimen Venipuncture / 07/31/2018 2:18 08/01/19 19 2:51 (specimen) Unknown PM EDT PM EDT Neal Krueger MD LAB BLOOD ORDERABLES Performing Organization Address City/[facility]/ZIP Code [facility]on [facility] Number [id number] [place] [address] [facility] [address] [facility][id number] [place] [address] [facility] [address] (ABNORMAL) Hemoglobin A1C (07/31/2018 2:18 PM EDT) athologist Signature HEMOGLOBIN A1C 6.4 (H) <5.7 % 07/31/2018 [facility] 3:11 PM EDT [facility] eAG 137 MG/DL 07/31/2018 [facility] 3:11 PM EDT [facility] eAG Comment 07/31/2018 [facility] 3:11 PM EDT [facility] Comment: The [place] [employer] has supported the use [...] / Volume Laterality Blood specimen Venipuncture / 07/31/2018 2:18 08/01/19 19 2:51 (specimen) Unknown PM EDT PM EDT Neal Krueger MD LAB BLOOD ORDERABLES Performing Organization Address City/[facility]/ZIP Code Phon e Number [facility] [id number] [place] [address] [facility] [address] [facility][id number] [place] [address] [facility] [address] documented in this encounter Visit Diagnoses Diagnosis Cognitive deficit due to multiple acute subcortical cerebrovascular accidents (CVAs) (HCC) - Primary Type 2 diabetes mellitus with hyperglyce jackelyn, without long-term current use of insulin (HCC) Hypertension associated with diabetes (H CC) Unspecified essential hypertension Hyperlipidemia due to type 2 diabetes me llitus (HCC) Pityriasis rosea Dysuria documented in this encounter Care Teams Ash Kier Boiler Relationship Specialty Start Date End Date Neal Krueger MD PCP - General Family Medicine 07/31/18 07/14/[address] [place] [address] documented as of this encounter
--- OUTSIDE RECORDS SUMMARY | 2021-11-30 11:49 | XMS_ITS | Encounter Summary ---
:1955 Author Organization [facility] [place] [address] Care Team Providers Name Role Phone Neal Breen MD Primary Care Provider [phone] Reason for Visit Reason Comments Injections Synvisc injection for the ri ght knee, 06/17 Medication (Routine) - Closed Specialty Diagnoses / Procedures Referred By Contact Refer red To Contact Pharmacy Diagnoses Primary osteoarthritis of right knee Nasir Vega PA-C [facility] [address] [place] [address] [address] [place] [address] Phone: Referral ID Status Reason Start Expiration Visits Visits Date Date Requested Authorized [id number] Closed Medication 05/17/2018 05/17/2019 3 3 authorization Encounter Details Date Type Department Care Team Description 06/28/2018 Clinical Support Orthopaedics - Nasir Abrams, Chronic left shoulder pain ( Primary Dx); [address] [place] [facility] [address] Arthritis of knee; [place], [place] [address] [place] [address] Tendinopathy of left rotator cuff [phone] [place] [address] Social History Tobacco Use Types Packs/Day Years [...] documented as of this encounter Progress Notes Nasir Vega PA-C - 06/28/2018 10:40 AM EDT Mr. Dario Mckeon [id number] 1955 (age: 62 y.o.) Return Visit Referred by: Nasir Vega Pa-c [address] [place] [address] Chief Complaint: Chief Complaint Patient presents with ??? Injections Synvisc injection for the right knee, 3/3 History of Present Illness: 1. Here for 3rd synvisc right knee, overall doing well 2. Flare of left shoulder pain, ongoing for a few months, no injuries, no prior surgery Past Medical History: Diagnosis Date ??? Acute [...] (Right L2-5); Surgeon: Petr Brito MD; Location: [facility]; Service: Rehab Medicine; Laterality: N/A; ??? 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 ROBOTIC YOUSIF UNICOMPARTMENTAL KNEE REPLACEMENT Left 11/01/2016 Procedure: MEDIAL YOUSIF - UNICOMPARTMENTAL KNEE REPLACEMENT - ROBOTIC; Surgeon: Miguelito Manuel MD; Location: OUTPATIENT OR; Service: Orthopedics; Laterality: Left; ??? SKIN BIOPSY Social History Social History ??? Marital status: Single Spouse name: N/A ??? Number of children: N/A ??? Years of education: N/A Occupational History ??? Not on file. Social History Main Topics ??? Smoking status: Former Smoker Types: Cigarettes Quit date: 04/16/1989 ??? Smokeless tobacco: Never Used ??? Alcohol use Yes Comment: occasional beer ??? Drug use: No ??? Sexual activity: Not on file Other Topics Concern ??? Not on file Social History Narrative ??? No narrative on file Allergies Allergen Reactions ??? Morphine Anaphylaxis (ALLERGY) ??? Sulfamethoxazole Anaphylaxis (ALLERGY) ??? Sulfasalazine Itching / Pruritis (ALLERGY/intolerance) ??? Pollen Extracts Other (See Comments) Runny nose Review of Systems: Review of Systems Constitutional: Negative. Endo/Heme/Allergies: Negative. Psychiatric/Behavioral: Negative. Home Medications Medication Sig Dispense Refill ??? ascorbic acid, vitamin C, (VITAMIN C) 500 MG tablet Take 500 mg by mouth every morning. ??? atorvastatin (LIPITOR) 20 MG tablet Take 20 mg by mouth daily. ??? DEXT 70/POLYCARBOPHIL/PEG/NACL (ARTIFICIAL TEAR SOLUTION OPHT) Place 1 drop into both eyes as needed. ??? donepezil (ARICEPT) 10 MG tablet Take 10 mg by mouth daily. ??? flecainide (TAMBOCOR) 100 MG tablet take 1 tablet by mouth twice a day 60 tablet 5 ??? fluticasone (FLONASE) 50 mcg/actuation nasal spray 2 sprays by Each Nare route daily. ??? memantine 28 mg CSpX Take 28 mg by mouth daily. ??? metFORMIN (GLUCOPHAGE) 500 MG tablet Take 500 mg by mouth 2 times daily with meals. ??? metoPROLOL succinate (TOPROL-XL) 50 MG 24 hr tablet take 1 tablet by mouth once daily 30 tablet 5 ??? multivitamin capsule Take 1 capsule by mouth daily. ??? clopidogrel (PLAVIX) 75 mg tablet *ANTIPLATELET* Take 1 tablet (75 mg total) by mouth daily. 30 tablet 2 Physical Exam: Physical Exam Constitutional: He is oriented to person, place, and time. He appears well- developed and well-nourished. Neurological: He is alert and oriented to person, place, and time. Skin: Skin is warm and dry. Psychiatric: He has a normal mood and affect. His behavior is normal. Judgment and thought content normal. Nursing note and vitals reviewed. Right Knee Exam Muscle Strength The patient has normal right knee strength. Other Sensation: normal Pulse: present Swelling: none Left Knee Exam Other Sensation: normal Pulse: present Swelling: none Right Shoulder Exam Right shoulder exam is normal. Muscle Strength The patient has normal right shoulder strength. Other Sensation: normal Pulse: present Left Shoulder Exam Tenderness The patient is experiencing tenderness in the acromioclavicular joint. Range of Motion The patient has normal left shoulder ROM. Muscle Strength The patient has normal left shoulder strength. Tests Impingement: positive Other Sensation: normal Pulse: present Vitals: There were no vitals filed for this visit. Special Investigations- Review of Diagnostic Tests: Radiologic Studies: I have personally reviewed plain x-ray images from [facility]. Lab Studies: I have not reviewed any lab test results for this patient.degenerative changes AC left with degenerative changes right knee Assessment: 1. Chronic left shoulder pain triamcinolone acetonide (KENALOG-40) 40 mg/mL injection 40 mg hylan (SYNVISC) injection 16 mg 2. Arthritis of knee triamcinolone acetonide (KENALOG-40) 40 mg/mL injection 40 mg hylan (SYNVISC) injection 16 mg 3. Tendinopathy of left rotator cuff Plan: 1. Sterile prep/consent/time out steroid injection left shoulder, one cc kenalog 40 mg/cc left shoulder, ice/rest/observe for signs of infection 2. synvisc 06/17 right 3. Consider further diagnostic studies left shoulder 4. Advised patient to contact my office at [phone] for any injection related problems with pain, swelling, or fevers or for other interval questions, problems, or concerns. Limit your activities for 48-72 hr. Intermittent ice to your left shoulderknee Hal wrap as needed for swelling or support. Monitor your blood glucoses more closely over next 2 weeks. If raise >250 or feel poorly, please call us, PCP, or go to Emergency Room for further assistance. Follow up: No Follow-up on file. No orders of the defined types were placed in this encounter. Electronically signed by: Nasir Vega PA-C 06/28/2018 11:33 AM Electronically signed by: Nasir Vega PA-C 06/28/18 1137 documented in this encounter Plan of Treatment Not on filedocumented as of this encounter Visit Diagnoses Diagnosis Chronic left shoulder pain - Primary Pain in joint, shoulder region Arthritis of knee Unspecified arthropathy, lower leg Tendinopathy of left rotator cuff documented in this encounter Administered Medications Inactive Administered Medications - up to 3 most recent administrations Medication Order MAR Action Action Date Dose Rate Site hylan (SYNVISC) injection 16 mg Given 06/28/2018 11:32 AM EDT 16 mg 16 mg Weekly, Intra-articular, First dose on Re 06/28/18 at 1215, For 3 doses triamcinolone acetonide (KENALOG-40) 40 mg/mL Given 11:32 AM EDT 40 mg injection 40 mg 40 mg Once, Intra-articular, On Re 06/28/18 at 1230, For 1 dose documented in this encounter Care Teams Trade Show Coordinator Relationship Specialty Start Date End Date Neal Breen MD PCP - General Family Medicine 06/28/18 06/28/[address] [place] [address] documented as of this encounter
--- OUTSIDE RECORDS SUMMARY | 2021-11-30 11:49 | XMS_ITS | Encounter Summary ---
:1955 Author Organization [facility] [place] [address] Care Team Providers Name Role Phone Neal Breen MD Primary Care Provider [phone] Encounter Details Date Type Department Care Team Description 09/17/2018 Hospital Encounter Diagnostic Outpatient Mindy [facility] Chely Casey RN [address] [place] [id number] [phone] Social History Tobacco Use Types Packs/Day Years [...] Start Date End Date donepezil (ARICEPT) 10 Take 10 mg by mouth 0 MG tablet in the morning and at bedtime. memantine 28 mg CSpX Take 28 mg by mouth 0 daily. ascorbic acid, vitamin Take 500 mg by mouth 0 04/22/2020 C, (VITAMIN C) 500 MG every morning. tablet ascorbic acid,vitamin Take by mouth. 0 09/24/2018 C,,bulk, 100 % Powd atorvastatin (LIPITOR) Take 1 tablet (20 mg 90 tablet 5 09/24/2018 20 MG tablet total) by mouth daily. clopidogrel (PLAVIX) 75 Take 1 tablet (75 mg 30 tablet 2 09/24/2018 mg tablet *ANTIPLATELET* total) by mouth daily. cyclobenzaprine Take 1 tablet (10 mg 20 tablet 0 04/06/2017 07/08/2021 (FLEXERIL) 10 MG tablet total) by mouth 2 (two) times daily as needed for up to [address] 1 drop into 0 019 70/POLYCARBOPHIL/PEG/NAC both eyes as needed. L (ARTIFICIAL TEAR SOLUTION OPHT) flecainide (TAMBOCOR) take 1 tablet by 60 tablet 5 04/26/19 19 12/04/2018 100 MG tablet mouth twice a day fluticasone (FLONASE) 50 2 sprays by Each 0 08/2104/04/2019 mcg/actuation nasal Nare route daily as spray needed. loratadine (CLARITIN) 5 Take 5 mg by mouth 0 04/04/2019 mg chewable tablet daily as needed. metFORMIN (GLUCOPHAGE) Take 1 tablet (500 180 tablet 5 07/3101/03/2019 500 MG tablet mg total) by mouth 2 times daily with meals. metoPROLOL succinate take 1 tablet by 180 tablet 5 9 10/03/2018 (TOPROL-XL) 50 MG 24 hr mouth once daily tablet multivit w/iron-minerals Take by mouth. 0 09/24/2018 27-0.4 mg Tab multivitamin capsule Take 1 capsule by 0 03/01/2021 mouth daily. triamcinolone (KENALOG) 1 application to 80 g 3 201803/13/2019 0.1 % cream affected areas BID PRN documented as of this encounter Plan of Treatment Not on filedocumented as of this encounter Procedures Procedure Name Priority Date/Time Associated Diagnosis Comme nts XR ABDOMEN Routine 09/17/2018 2:52 PM Recurrent Results f or this (W/UPRIGHT) EDT nephrolithiasis procedure ar e in the results section. documented in this encounter Results XR ABDOMEN (W/UPRIGHT) (09/17/2018 2:52 PM EDT) Anatomical Region Laterality Modality Abdomen Computed Radiography Specimen (Source) Anatomical Collection Method Collection Time Re ceived Time Location / / Volume Laterality 09/17/2018 2:57 PM EDT Impressions 09/17/2018 4:53 PM EDT 1. ??Punctate radiodensities projecting over the lower poles of both kidneys and left interpolar kidney may represent small nonobstructing calculi. 2. ??Nonobstructive bowel gas pattern. 3. ??No pneumoperitoneum. 4. ??Probable hepatomegaly. Narrative 09/17/2018 4:53 PM EDT X-RAY ABDOMEN, MULTIPLE VIEWS, 09/17/2018 2:52 PM INDICATION: recurrent nephrolithiasis \ \ N20.0 Recurrent nephrolithiasis COMPARISON: KUB from 11/09/2017 TECHNIQUE: Supine and erect views of the abdomen are presented. FINDINGS: . ??Stomach/intestines: Nonobstructive b owel gas pattern. . ??Soft tissues/peritoneum: No patholog ic soft tissue density. No pneumoperitoneum. . ??Calcifications/stones: Punctate radi odensities project over the region of the interpolar and lower left kidney and lower right kidney and may represent small nonobstructing calculi. Similar appearan ce of phleboliths within the anatomic pe lvis. ? . ??Bones/soft tissues: Age related mclean ges. No acute bony abnormality. Probable hepatomegaly. . ??Lower chest: ??The visualized lung b ases reveal no acute process. . ??Lines/tubes/surgical: None. Procedure Note Brigido Mock MD - 09/17/2018Formatti ng of this note might be different from the original. X-RAY ABDOMEN, MULTIPLE VIEWS, 09/17/2018 2:52 PM INDICATION: recurrent nephrolithiasis \ \ N20.0 Recurrent nephrolithiasis COMPARISON: KUB from 11/09/2017 TECHNIQUE: Supine and erect views of the abdomen are presented. FINDINGS: . Stomach/intestines: Nonobstructive bow el gas pattern. . Soft tissues/peritoneum: No pathologic soft tissue density. No pneumoperitoneum. . Calcifications/stones: Punctate radiod ensities project over the region of the interpolar and lower left kidney and lower right kidney and may represent small nonobstructing calculi. Similar appearance of phleboliths within the anatomic pelvis. . Bones/soft tissues: Age related change s. No acute bony abnormality. Probable hepatomegaly. . Lower chest: The visualized lung bases reveal no acute process. . Lines/tubes/surgical: None. CONCLUSION: 1. Punctate radiodensities projecting ov er the lower poles of both kidneys and left interpolar kidney may represent small nonobstructing calculi. 2. Nonobstructive bowel gas pattern. 3. No pneumoperitoneum. 4. Probable hepatomegaly. Mindy Aaron RN [facility] CATHI AGRAWAL documented in this encounter Visit Diagnoses Diagnosis Recurrent nephrolithiasis documented in this encounter Care Teams Cager Operator Relationship Specialty Start Date End Date Neal Breen MD PCP - General Family Medicine 07/31/18 07/14/[address] [place] [address] documented as of this encounter
--- OUTSIDE RECORDS SUMMARY | 2021-11-30 11:49 | XMS_ITS | Encounter Summary ---
:1955 Author Organization [facility] [place] [address] Care Team Providers Name Role Phone Neal Breen MD Primary Care Provider [phone] Reason for Visit Reason Comments Injections Synvisc injection for the ri ght knee, 06/17 Medication (Routine) - Closed Specialty Diagnoses / Procedures Referred By Contact Refer red To Contact Pharmacy Diagnoses Primary osteoarthritis of right knee Nasir Vega PA-C [facility] [address] [place] [address] [address] [place] [address] Phone: Referral ID Status Reason Start Expiration Visits Visits Date Date Requested Authorized [id number] Closed Medication 05/17/2018 05/17/2019 3 3 authorization Encounter Details Date Type Department Care Team Description 06/21/2018 Clinical Support Orthopaedics - Nasir Abrams, Chronic left shoulder pain ( Primary Dx); [address] [place] [address] [address] Primary osteoarthritis of right knee [address] [phone] [place] [address] Social History Tobacco Use Types Packs/Day Years [...] encounter Progress Notes Nasir Vega PA-C - 06/21/2018 2:00 PM EST Mike Bishop 62 y.o. male Chief Complaint: Knee Arthritis HPI: Patient Presents For right Knee 2 Of 3 Synvisc Injections Patient is here for viscosupplementation injection, no recent medical issues. No recent illness, no allergies to chicken or chicken products . Patient understands the risks and benefits of the procedure and has no further questions at this time Past and present medical history was reviewed before giving injection All vitals reviewed O: Alert, orientated x 3 Right knee exam: No effusion No redness No warmth No signs of infection Adequate motion No calf tenderness N/v intact Good capillary refill Left knee exam: No signs of infection No effusion No redness No warmth No signs of infection No calf tenderness Good motion Ligaments intact N/v intact Good capillary refill There were no vitals taken for this visit. A Degenerative Joint Disease P: Plan: Sterile preparation, consent/time out - answered all patient questions concerning medication Patient Given right Knee Synvisc Injection. The patient should avoid exercise for two days following the injection. Observe for signs of infection, call if any redness,warmth, swelling or increased pain Application ice, 10 - 15 minutes -once or twice today, once or twice tomorrow. Call if any change in symptoms Follow up as planned 1. Chronic left shoulder pain Electronically signed by: Nasir Vega PA-C 06/21/18 1452 documented in this encounter Plan of Treatment Not on filedocumented as of this encounter Results XR SHOULDER LT 2 OR MORE VIEWS Grashey, Axillary, Scapula Y, AP (06/28/2018 10:27 AM EDT) Anatomical Region Laterality Modality Digital Radiography Specimen (Source) Anatomical Collection Method Collection Time Re ceived Time Location / / Volume Laterality 06/28/2018 11:57 AM EDT Impressions 06/28/2018 12:00 PM EDT 1. ??No acute fracture or malalignment. 2. ??Mild acromioclavicular and glenohum eral joint degenerative changes. Narrative 06/28/2018 12:00 PM EDT X-RAY LEFT SHOULDER (2+ VIEWS), 06/28/2018 10:27 AM INDICATION: injured left shoulder one ye ar ago \ \ M25.512 Chronic left shoulder pain \ G89.29 Chronic left shoulder pain COMPARISON: Shoulder radiographs 01/11/20 18. Procedure Note Bryon Waggoner MD - 06/28/2018 X-RAY LEFT SHOULDER (2+ VIEWS), 9 10:27 AM INDICATION: injured left shoulder one ye ar ago \ \ M25.512 Chronic left shoulder pain \ G89.29 Chronic left shoulder pain COMPARISON: Shoulder radiographs 01/11/20 18. CONCLUSION: 1. No acute fracture or malalignment. 2. Mild acromioclavicular and glenohumer al joint degenerative changes. Nasir Vega PA-C [facility] ORDER [facility]OUD documented in this encounter Visit Diagnoses Diagnosis Chronic left shoulder pain - Primary Pain in joint, shoulder region Primary osteoarthritis of right knee Chronic left shoulder pain Pain in joint, shoulder region documented in this encounter Administered Medications Inactive Administered Medications - up to 3 most recent administrations Medication Order MAR Action Action Date Dose Rate Site hylan (SYNVISC) injection 16 mg Given 06/21/2018 2:51 PM EST 16 mg 16 mg Weekly, Intra-articular, First dose on Mon06/22/18 at 0900, For 3 doses documented in this encounter Care Teams Weighmaster Lead Relationship Specialty Start Date End Date Neal Breen MD PCP - General Family Medicine 06/13/18 06/21/[address] [place] [address] documented as of this encounter
--- OUTSIDE RECORDS SUMMARY | 2021-11-30 11:49 | XMS_ITS | Encounter Summary ---
:1955 Author Organization [facility] [place] [address] Care Team Providers Name Role Phone Neal Breen MD Primary Care Provider [phone] Reason for Visit Reason Onset Date Comments Results 12/12/2018 Encounter Details Date Type Department Care Team Description 12/12/2018 Telephone Orthopaedics - Madeline Preciado Results [facility] [address] [place] [address] Social History Tobacco Use Types Packs/Day Years [...] this encounter Miscellaneous Notes Telephone Encounter - Rubi Nolasco LPN - 12/12/2018 4:38 PM EDT Returned call to patient. Verified 2 identifiers. Patient notified of MRI results. Patient scheduledto see Dr. Manuel 12/20/2018 at 9:45 am. Patient aware of location. Electronically signed by: Rubi Nolasco LPN 12/12/18 1639 Telephone Encounter - Jade Abdi - 12/12/2018 4:12 PM EDT Patient returning phone call. Schedule did not feel comfortable Reading BOLD directive. Please advise Telephone Encounter - Lane Boggs - 12/12/2018 11:39 AM EDT Patient is returning call. Telephone Encounter - Madeline Smith PA-C - 12/12/2018 8:40 AM EDT Patient called and no answer. Generic voicemail left. If patient returns call: MRI CONCLUSION: ?? 1. Full-thickness tear involving the supraspinatus and infraspinatus tendons at the mid cuff. 2. High-grade articular surface tear of the infraspinatus tendon at the footprint. 3. Low-grade articular surface tear of the subscapularis tendon. 4. Moderate infraspinatus and mild subscapularis tendinosis. 5. Small glenohumeral joint effusion and synovitis. 6. Mild glenohumeral joint osteoarthritis with superior labral fraying. 7. Moderate acromioclavicular joint osteoarthritis and mild subacromial bursitis. 8. Mild long head biceps tendinosis above the groove. Mild tenosynovitis below the groove. He has large tears in his rotator cuff, which we would recommend surgery for. If he would like surgery I would recommend he follow up with Dr. Manuel. Electronically signed by: Madeline Smith PA-C 12/12/18 0844 documented in this encounter Plan of Treatment Not on filedocumented as of this encounter Visit Diagnoses Not on filedocumented in this encounter Care Teams Acid Plant Helper Relationship Specialty Start Date End Date Neal Breen MD PCP - General Family Medicine 07/31/18 07/14/[address] [place] [id number] documented as of this encounter
--- OUTSIDE RECORDS SUMMARY | 2021-11-30 11:49 | XMS_ITS | Encounter Summary ---
:1955 Author Organization [facility] [place] [address] Care Team Providers Name Role Phone Neal Breen MD Primary Care Provider [phone] Reason for Referral MRI/CAT Scan (Routine) - Closed Specialty Diagnoses / Procedures Referred By Contact Refer red To Contact Radiology Diagnoses Tendinopathy of left rotator cuff Madeline Smith [facility] Procedures MR SHOULDER LEFT [address] [address] [place] [address] Phone: Referral ID Status Reason Start Date Expiration Date Visits Requ ested Visits Authorized [id number] Closed 11/16/2018 01/14/2019 1 1 Reason for Visit Reason Comments Left Shoulder Problem Patient presents today for a n evaluation of the left shoulder/ Encounter Details Date Type Department Care Team Description 11/13/2018 Office Visit Orthopaedics - Madeline Preciado Tendinopathy of left [address] [place] [address] rotator cuff (Primary [place], [place] [address] Dx) [phone] Social History Tobacco Use Types Packs/Day Years [...] Reading Time Taken Comments Blood Pressure 111/68 11/13/2018 9:42 AM EDT Pulse 59 11/13/2018 9:42 AM EDT Temperature 36.5 ??C (97.7 ??F) 11/13/2018 9:42 AM EDT Respiratory Rate - - Oxygen Saturation - - Inhaled Oxygen Concentration - - Weight 116.6 kg (257 lb) 11/13/2018 9:42 AM EDT Height 177.8 cm (5' 10) 11/13/2018 9:42 AM EDT Body Mass Index 36.88 11/13/2018 9:42 AM EDT documented in this encounter Functional [...] as of this encounter Patient Instructions Patient InstructionsTifjayro Smith PA-C - 11/13/2018 9:40 AM EDT Images from the original note were not included. [facility] Rotator Cuff Exercises Thank you for choosing [facility]. Please let us know if you have questions or concerns or do not understand the information we give you. Always ask us to explain words or phrases that are not familiar. Before doing exercises at home, ask your doctor or physical therapist to make sure you are doing them properly. If you have pain during or after an exercise, you may need to change the way you are doing the exercise. Most exercises for your shoulder either stretch or strengthen (make stronger) the muscles and tendons of your shoulder joint. Exercises to stretch your shoulder include: Pendulum exercise The pendulum exercise stretches the joint capsule of your shoulder joint to keep it from getting stiff. Avoid this exercise if you have back pain. 1. Hold on to the back of a chair or table with your good arm. 2. Bend at the hips so that your painful arm hangs down freely. Keep your back straight. 3. Rocking your weight from your hips, allow your arm to gently sway or move in a comanche. 4. Start out in small circles and slowly allow the circles to become larger. 5. Sway the arm in both clockwise and counterclockwise directions Perform this exercise for around 5 minutes 4 to 8 times a day. Avoid this exercise if you have back pain. After surgery, it is ok to do this exercise even if you have some shoulder pain. Posterior Stretching Exercise Stretching the back of your shoulder is an exercise that stretches the back part of your injured shoulder joint. 1. Place the hand of your injured arm on the opposite shoulder, by reaching across the front of yourchest. 2. Using your good hand, gently pull the elbow of your injured arm up and across your body, towards your good side. As the hand of the injured arm reaches over the back of your shoulder, you will feel a gentle stretch across the back of your injured shoulder. Hold the stretch for 15 to 30 seconds. Repeat these steps2 to 5 times. Up the Back Stretch This exercise stretches the anterior, or front part of your shoulder. 1. Stand with your arms at your sides, palms facing outward. 2. Move the hand from your injured side across your buttocks and up to your waistline. Keep your palm facing outward and your thumb facing upward. 3. With the other hand, grab your injured arm at the wrist, pulling gently upwards. Hold this position or 15-25 seconds, then relax. Repeat these steps 2 to 3 times. Anterior shoulder stretch This exercise stretches the anterior, or front part of your shoulder. 1. Stand holding a towel behind your head and neck. Stretch your shoulders as if you were drying your back. 2. With your injured arm on top, pull down with your good arm 3. With your injured arm on bottom, pull up with your good arm Hold the stretch for 15-30 seconds. Repeat 2-5 times. Wall stretches Wall stretches are exercises that help make your injured shoulder joint more flexible. 1. Stand facing a wall. Your fingers should just be able to touch the wall with your outstretched arm. Keep your feet hip width apart and your back straight 2. Slowly climb the wall with your fingers, moving closer to the wall as your arm rises. Go only as high as pain permits, holding the position for 15 to 20 seconds 3. Slowly lower your arm, supporting it with your good arm if needed. Repeat these steps 2 to 4 times. 1. Now stand with your side to the wall, 1 to 2 feet away from you. Your fingers should just be ableto touch the wall, with your arm angled slightly forward and out-stretched. 2. Slowly climb the wall with your fingers, moving close to the wall as your arm rises. Go only as high as pain permits, holding the position for 15 to 20 seconds. 3. Slowly lower your arm, supporting it with your good arm if needed. Repeat these steps 2 to 4 times. Exercises to strengthen your shoulder: Internal rotation exercise - with band Internal rotation with a band is an exercise that strengthens or tones the muscles that help rotate your shoulder inward, or towards your body. 1. Attach a piece of surgical tubing or elastic band to something at waist height, such as a door knob. 2. Stand with your uninjured side towards the wall and your body facing along the wall. Your elbows should be bent at a right angle pointing in front of your body, along the direction of the wall. 3. Place a rolled up towel between your elbow and side. Keep your elbow next to your side. 4. Pull or rotate your arm across your body at waist level. Keep your forearm parallel to the groundand your wrist straight. 5. Hold this position for 3 to 5 seconds, then slowly rotate your arm back towards the wall. Repeat these steps 5 to 10 times. External rotation exercise - with band This exercise strengthens the muscles that help rotate the shoulder outward 1. Attach a piece of surgical tubing or elastic band to something at waist height, such as a door knob. 2. Stand or sit with your uninjured side towards the wall and your body facing along the wall. Your elbows should be bent at a right angle. Keep your forearm parallel to the ground and your wrist straight. Keep your elbow next to your side. Holding a rolled up towel between your elbow and side may help. 3. Pull or rotate your arm outward from your body, rotating it to the side. 4. Hold this position for 3 to 5 seconds, then slowly rotate your arm back towards the wall. Repeat these steps 5 to 10 times. Isometric shoulder exercises Isometric shoulder exercises strengthen and tone the muscles in your shoulder. 1. Stand facing a door jam or wall. Bend your elbow at a right angle and hold it close to your body. 2. Place a closed fist against the wall and push forward with no more than half your strength. Hold the pressure for around 5 seconds. Repeat these steps around 10 times. 3. Now stand with your back to a wall. Bend your elbow at a right angle and hold it close to your body. Press your elbow backwards against the wall with no more than half of your strength. Hold the pressure around 5 seconds. Repeat these steps around 10 times. 4. Finally, stand with your injured side touching a wall. Bend your elbow at a right angle and hold it close to your body. Attempt to move your elbow away from your body, pushing against the wall. Holdthe pressure around 5 seconds. Repeat these steps around 10 times. Wall push-ups Wall push-ups are exercises that stretch the muscles and joint capsule of your shoulder joint. 1. Stand facing the wall, about 1 [address] your palms on the wall at about shoulder height. Your fingers should be pointing up and slightly outward. 2. Slowly lean until your face is at the wall, bending your arms at the elbows. Push slowly back until your elbows are straight again. Repeat these steps about 10 times. Shoulder blade (scapular) retraction The shoulder blade retraction exercise stretches the muscles that hold your shoulder blade (scapula). 1. Stand or sit with upright erect posture. Pull or squeeze your shoulder blades together and down towards your buttocks. Pull for 3 to 5 seconds, then relax. 2. Repeat 5 of these exercises, many times during the day. Shoulder blade (scapular) retraction with tubing The shoulder blade retraction with tubing exercise stretches the muscles that hold your shoulder blade (scapula). 1. Attach a piece of surgical tubing or elastic band to something at waist height, such as a door knob. 2. Stand facing this spot, your elbows at your sides, bent at a right angle. 3. Grasp the loose end of the elastic band with your palms facing each other. Pull backwards, squeezing your shoulder blades together. 4. Slowly allow your arms to return to the first position. Repeat these steps 5 to 10 times. Arm reach The arm reach is an exercise that strengthens the muscles that hold your should blade (scapula). 1. Lie flat on your back on a table and raise both your arms and elbows straight up. Hold this position throughout the exercise. 2. Reach toward the ceiling by lifting your shoulder blades off the table. 3. Relax your shoulder blades back to the table, then repeat 10 times. All movements should only come from raising and lowering your shoulder blades. This information is general. If your doctor tells you something different, follow his or her advice and instructions. March 2014 [employer] Where can you learn more? Log into madvertise at www.ShopText and enter the title of this document into the ???Search Medical Library?? box to learn more about your instructions. documented in this encounter Progress Notes Madeline Smith PA-C - 11/13/2018 9:40 AM EDT Images from the original note were not included. HPI: Dario Mckeon is a pleasant 63 y.o. presenting today complaining of left shoulder pain for the past few months. 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 The symptoms are associated weakness, popping, catching. Pain is described as aching, Lateral and Anterior , 4/10. Pain radiates to the elbow, and occasionally down to the hand. Pain is worse with overhead activities, improved with rest. Patient has failed conservative treatment including steroid injections and activity modification and HEP. The patient has had steroid injections, the most recent being in 06/2018. He has not been to formal physical therapy. The pain is not associated with stiffness. Denies previous surgeries, injuries, to the left shoulder. Denies instability, weakness, neck pain, paresthesias. Past Medical History: Diagnosis Date ??? Acute [...] (Right L2-5); Surgeon: Petr Brito MD; Location: [facility]; Service: Rehab Medicine; Laterality: N/A; ??? LUMBAR / THORACIC MEDIAL BRANCH BLOCK Right 08/15/2017 Procedure: LUMBAR/THORACIC MEDIAL BRANCH BLOCK - Right L2-L5; Surgeon: Neptali Toledo MD; Location: [address] [facility]; Service: Anes Physiatry; Laterality: [...] History Narrative ??? No narrative on file Family History Problem Relation Age of Onset ??? Hypertension Mother ??? Alzheimer's disease Mother ??? Heart disease Mother ??? Kidney disease Mother ??? Diabetes Father ??? Heart disease Father ??? Alzheimer's disease Father ??? Alcohol abuse Brother ??? Alzheimer's disease Maternal Aunt ??? Alzheimer's disease Maternal Grandmother ??? Cancer Paternal Grandmother ??? Cancer Paternal Grandfather ??? Stroke Neg Hx Review of Systems A complete ROS was performed with pertinent positives/negatives noted in the HPI. The remainder of the ROS are negative. Updated Medication List: ascorbic acid, vitamin C, (VITAMIN C) 500 MG tablet Sig - Route: Take 500 mg by mouth every morning. - Oral Class: Historical Med atorvastatin (LIPITOR) 40 MG tablet Sig - Route: Take 1 tablet (40 mg total) by mouth daily. - Oral DEXT 70/POLYCARBOPHIL/PEG/NACL (ARTIFICIAL TEAR SOLUTION OPHT) Sig - Route: Place 1 drop into both eyes as needed. - Both Eyes Class: Historical Med donepezil (ARICEPT) 10 MG tablet Sig - Route: Take 10 mg by mouth daily. - Oral Class: Historical Med flecainide (TAMBOCOR) 100 MG tablet Sig: take 1 tablet by mouth twice a day loratadine (CLARITIN) 5 mg chewable tablet Sig - Route: Take 5 mg by mouth daily. - Oral Class: Historical Med memantine 28 mg CSpX Sig - Route: Take 28 mg by mouth daily. - Oral Class: Historical Med metFORMIN (GLUCOPHAGE) 500 MG tablet Sig - Route: Take 1 tablet (500 mg total) by mouth 2 times daily with meals. - Oral metoPROLOL succinate (TOPROL-XL) 50 MG 24 hr tablet Sig: TAKE 1 TABLET BY MOUTH ONCE DAILY multivitamin capsule Sig - Route: Take 1 capsule by mouth daily. - Oral Class: Historical Med triamcinolone (KENALOG) 0.1 % cream Si application to affected areas BID PRN fluticasone (FLONASE) 50 mcg/actuation nasal spray Sig - Route: 2 sprays by Each Nare route daily. - Each Nare Class: Historical Med Vitals: 11/13/18 0942 BP: 111/68 Pulse: 59 Temp: 97.7 ??F (36.5 ??C) PainSc: 4-Four (moderate) Height: 1.778 m (5' 10) Weight: 116.6 kg (257 lb) BMI (Calculated): 37 Physical Exam: Constitutional: appears well-developed and well-nourished. In no acute distress. Appears stated age. Chest/Respiratory Respiratory effort: no intercostal retractions or use of accessory muscles Skin Inspection: no rashes, lesions Mental Status Exam Judgment, insight: intact Memory: intact Mood and affect: no depression, anxiety, or agitation Vascular Extremities: warm and well perfused Cervical Spine: Non-tender to deep palpation. No crepitus. Full ROM (flexion, extension, lateral bend, rotation) without stiffness. Sensation intact distally in C5-T1 distributions. Normal strength. left Upper Extremity / Shoulder Inspection: skin intact, without previous surgical incisions, erythema, ecchymosis, atrophy, deformity, abrasions. There is guarding and pain behavior. Negative gato deformtiy. There is not scapular winging. There is not obvious AC deformity. Palpation: Sensation: Light touch sensation present. Vascular: Brisk capillary refill, palpable radial/ulnar pulses. Lymph: no palpable epitrochlear nodes. Neurovascularly intact There is pinpoint tenderness to palpation over the superolateral shoulder. There is not a palpable effusion. There is not specific coracoid tenderness. There is biceps tenderness and there is groove tenderness. There is not TTP at the AC joint. ROM passive: R L Flexion: 160 150 AbdER: 90 30 AbdIR: 60 60 ER 25 10 IR: T10 T10 The patient does have pain with motion with associated stiffness. There is not cogwheel crepitus. Strength: R L Abd: 5 4 Ext rotation: 5 4 Int rotation: 5 4+ Special Tests: Positive Davis test (SS) Positive Speed test (bicep) Positive Driver test Positive Neer Test Positive Dropping sign (IS) Positive Hornblower's sign. Positive Belly press, Belly-Off, Bear hug and Lift-Off tests. (Subscap) Positive cross-arm adduction test (AC) Instability Tests: Negative history of instability. Contralateral shoulder- Normal strength and motion exam. No pain, no limitations. Diagnostic Imaging: X-RAY LEFT SHOULDER (2+ VIEWS), 06/28/2018 CONCLUSION: ?? 1. No acute fracture or malalignment. 2. Mild acromioclavicular and glenohumeral joint degenerative changes. Assessment: 1. Tendinopathy of left rotator cuff MR SHOULDER LEFT WO CONTRAST Plan: - Discussed operative versus non-operative measures. Conservative treatment such as stretching exercises and pool therapy and non-impact exercises were reviewed. We discussed a short course of NSAIDs if no medical contraindication. We reviewed activity and weightbearing restrictions and injections - After thorough discussion, decision was made to order an MRI to further assess for rotator cuff tear, given his weakness and failure to improve after several months of trying. The patient requested a Left subacromial steroid injection today. Risks, benefits, and alternatives reviewed. The patient expressed understanding and wishes to proceed. Verbal consent, time out performed, and universal precautions were followed. Injection with 6cc 1% lidocaine plain and 1 cc 40mg/ml kenalog with no complications. Sterile technique and universal protocol utilized. Patient tolerated the procedure well. Patient was advised that there may be a slight increase in rebound pain when the anesthetic wears off; ice, NSAIDs, rest and elevation may be helpful. Call if there are any concerns oradverse reactions including signs of infection (redness, warmth, discharge, fever/chills). - If symptoms worsen or new symptoms develop the patient is encouraged to seek medical attention immediately. - Answered all orthopedic questions related to this complaint. Patient was in agreement of this plan. - Return patient will call when returns from vacation. Electronically signed by: Madeline Smith PA-C 11/13/2018 10:[address] [facility] Rotator Cuff Exercises Thank you for choosing [facility]. Please let us know if you have questions or concerns or do not understand the information we give you. Always ask us to explain words or phrases that are not familiar. Before doing exercises at home, ask your doctor or physical therapist to make sure you are doing them properly. If you have pain during or after an exercise, you may need to change the way you are doing the exercise. Most exercises for your shoulder either stretch or strengthen (make stronger) the muscles and tendons of your shoulder joint. Exercises to stretch your shoulder include: Pendulum exercise The pendulum exercise stretches the joint capsule of your shoulder joint to keep it from getting stiff. Avoid this exercise if you have back pain. 1. Hold on to the back of a chair or table with your good arm. 2. Bend at the hips so that your painful arm hangs down freely. Keep your back straight. 3. Rocking your weight from your hips, allow your arm to gently sway or move in a comanche. 4. Start out in small circles and slowly allow the circles to become larger. 5. Sway the arm in both clockwise and counterclockwise directions Perform this exercise for around 5 minutes 4 to 8 times a day. Avoid this exercise if you have back pain. After surgery, it is ok to do this exercise even if you have some shoulder pain. Posterior Stretching Exercise Stretching the back of your shoulder is an exercise that stretches the back part of your injured shoulder joint. 1. Place the hand of your injured arm on the opposite shoulder, by reaching across the front of yourchest. 2. Using your good hand, gently pull the elbow of your injured arm up and across your body, towards your good side. As the hand of the injured arm reaches over the back of your shoulder, you will feel a gentle stretch across the back of your injured shoulder. Hold the stretch for 15 to 30 seconds. Repeat these steps2 to 5 times. Up the Back Stretch This exercise stretches the anterior, or front part of your shoulder. 1. Stand with your arms at your sides, palms facing outward. 2. Move the hand from your injured side across your buttocks and up to your waistline. Keep your palm facing outward and your thumb facing upward. 3. With the other hand, grab your injured arm at the wrist, pulling gently upwards. Hold this position or 15-25 seconds, then relax. Repeat these steps 2 to 3 times. Anterior shoulder stretch This exercise stretches the anterior, or front part of your shoulder. 1. Stand holding a towel behind your head and neck. Stretch your shoulders as if you were drying your back. 2. With your injured arm on top, pull down with your good arm 3. With your injured arm on bottom, pull up with your good arm Hold the stretch for 15-30 seconds. Repeat 2-5 times. Wall stretches Wall stretches are exercises that help make your injured shoulder joint more flexible. 1. Stand facing a wall. Your fingers should just be able to touch the wall with your outstretched arm. Keep your feet hip width apart and your back straight 2. Slowly climb the wall with your fingers, moving closer to the wall as your arm rises. Go only as high as pain permits, holding the position for 15 to 20 seconds 3. Slowly lower your arm, supporting it with your good arm if needed. Repeat these steps 2 to 4 times. 1. Now stand with your side to the wall, 1 to 2 feet away from you. Your fingers should just be ableto touch the wall, with your arm angled slightly forward and out-stretched. 2. Slowly climb the wall with your fingers, moving close to the wall as your arm rises. Go only as high as pain permits, holding the position for 15 to 20 seconds. 3. Slowly lower your arm, supporting it with your good arm if needed. Repeat these steps 2 to 4 times. Exercises to strengthen your shoulder: Internal rotation exercise - with band Internal rotation with a band is an exercise that strengthens or tones the muscles that help rotate your shoulder inward, or towards your body. 1. Attach a piece of surgical tubing or elastic band to something at waist height, such as a door knob. 2. Stand with your uninjured side towards the wall and your body facing along the wall. Your elbows should be bent at a right angle pointing in front of your body, along the direction of the wall. 3. Place a rolled up towel between your elbow and side. Keep your elbow next to your side. 4. Pull or rotate your arm across your body at waist level. Keep your forearm parallel to the groundand your wrist straight. 5. Hold this position for 3 to 5 seconds, then slowly rotate your arm back towards the wall. Repeat these steps 5 to 10 times. External rotation exercise - with band This exercise strengthens the muscles that help rotate the shoulder outward 1. Attach a piece of surgical tubing or elastic band to something at waist height, such as a door knob. 2. Stand or sit with your uninjured side towards the wall and your body facing along the wall. Your elbows should be bent at a right angle. Keep your forearm parallel to the ground and your wrist straight. Keep your elbow next to your side. Holding a rolled up towel between your elbow and side may help. 3. Pull or rotate your arm outward from your body, rotating it to the side. 4. Hold this position for 3 to 5 seconds, then slowly rotate your arm back towards the wall. Repeat these steps 5 to 10 times. Isometric shoulder exercises Isometric shoulder exercises strengthen and tone the muscles in your shoulder. 1. Stand facing a door jam or wall. Bend your elbow at a right angle and hold it close to your body. 2. Place a closed fist against the wall and push forward with no more than half your strength. Hold the pressure for around 5 seconds. Repeat these steps around 10 times. 3. Now stand with your back to a wall. Bend your elbow at a right angle and hold it close to your body. Press your elbow backwards against the wall with no more than half of your strength. Hold the pressure around 5 seconds. Repeat these steps around 10 times. 4. Finally, stand with your injured side touching a wall. Bend your elbow at a right angle and hold it close to your body. Attempt to move your elbow away from your body, pushing against the wall. Holdthe pressure around 5 seconds. Repeat these steps around 10 times. Wall push-ups Wall push-ups are exercises that stretch the muscles and joint capsule of your shoulder joint. 1. Stand facing the wall, about [address] your palms on the wall at about shoulder height. Your fingers should be pointing up and slightly outward. 2. Slowly lean until your face is at the wall, bending your arms at the elbows. Push slowly back until your elbows are straight again. Repeat these steps about 10 times. Shoulder blade (scapular) retraction The shoulder blade retraction exercise stretches the muscles that hold your shoulder blade (scapula). 1. Stand or sit with upright erect posture. Pull or squeeze your shoulder blades together and down towards your buttocks. Pull for 3 to 5 seconds, then relax. 2. Repeat 5 of these exercises, many times during the day. Shoulder blade (scapular) retraction with tubing The shoulder blade retraction with tubing exercise stretches the muscles that hold your shoulder blade (scapula). 1. Attach a piece of surgical tubing or elastic band to something at waist height, such as a door knob. 2. Stand facing this spot, your elbows at your sides, bent at a right angle. 3. Grasp the loose end of the elastic band with your palms facing each other. Pull backwards, squeezing your shoulder blades together. 4. Slowly allow your arms to return to the first position. Repeat these steps 5 to 10 times. Arm reach The arm reach is an exercise that strengthens the muscles that hold your should blade (scapula). 1. Lie flat on your back on a table and raise both your arms and elbows straight up. Hold this position throughout the exercise. 2. Reach toward the ceiling by lifting your shoulder blades off the table. 3. Relax your shoulder blades back to the table, then repeat 10 times. All movements should only come from raising and lowering your shoulder blades. This information is general. If your doctor tells you something different, follow his or her advice and instructions. March 2014 [employer] Where can you learn more? Log into madvertise at www.ShopText and enter the title of this document into the ???Search [facility] Library?? box to learn more about your instructions. Electronically signed by: Madeline Smith PA-C 11/13/18 1027 documented in this encounter Plan of Treatment Not on filedocumented as of this encounter Results MR SHOULDER LEFT WO CONTRAST (12/10/2018 4:12 PM EDT) Anatomical Region Laterality Modality Shoulder, Chest, Arm Magnetic Resonance Specimen (Source) Anatomical Collection Method Collection Time Re ceived Time Location / / Volume Laterality 12/11/2018 8:05 AM EDT Impressions 12/11/2018 12:53 PM EDT 1. ??Full-thickness tear involving the s upraspinatus and infraspinatus tendons at the mid cuff. 2. ??High-grade articular surface tear o f the infraspinatus tendon at the footprint. 3. ??Low-grade articular surface tear of the subscapularis tendon. 4. ??Moderate infraspinatus and mild sub scapularis tendinosis. 5. ??Small glenohumeral joint effusion a nd synovitis. 6. ??Mild glenohumeral joint osteoarthri tis with superior labral fraying. 7. ??Moderate acromioclavicular joint os teoarthritis and mild subacromial bursitis. 8. ??Mild long head biceps tendinosis ab ove the groove. Mild tenosynovitis below the groove. Narrative 12/11/2018 12:53 PM EDT MRI LEFT SHOULDER WITHOUT CONTRAST, 12/10/2018 4:12 PM INDICATION: SHOULDER PAIN, PRIOR XRAY, S USPECT ROTATOR CUFF TEAR / IMPINGEMENT \ \ M67.912 Tendinopathy of left rotator cuff COMPARISON: Shoulder radiographs dated TECHNIQUE: Multi-planar, multi-sequence imaging of the left shoulder was performed without IV or intra-articular contrast. FINDINGS: . ??Acromioclavicular joint: Moderate ac romioclavicular joint osteoarthritis. . ??Acromion: Mild subacromial bursitis. . ??Supraspinatus tendon: Full-thickness tear involving the posterior supraspinatus/anterior infraspinatus fibers at the mid cuff, measuring approximately 1.2 cm in AP dimension. This is best seen on se ariana 5, image 11 and series 7, image 7. Mild supraspinatus muscle atrophy. . ??Infraspinatus tendon: High-grade art icular surface tear of the infraspinatus tendon at the footprint. Background of moderate tendinosis. . ??Subscapularis tendon: Low-grade osbaldo cular surface tear of the subscapularis tendon. Background of mild tendinosis. . ??Teres minor tendon: Intact. . ??Long head of biceps: Intact and in a natomic position. Mild tendinosis above the groove. Mild tenosynovitis below the groove. . ??Glenohumeral joint: Small joint effu akanksha and synovitis focal partial- thickness chondrosis along the anterior upper glenoid (series 5, image 15). . ??Labrum: Superior labral fraying. . ??Bones: Normal marrow signal. No frac ture, neoplasm, or avascular necrosis. Procedure Note Saul Felix MD - 12/11/2018 MRI LEFT SHOULDER WITHOUT CONTRAST, 12/10 4:12 PM INDICATION: SHOULDER PAIN, PRIOR XRAY, S USPECT ROTATOR CUFF TEAR / IMPINGEMENT \ \ M67.912 Tendinopathy of left rotator cuff COMPARISON: Shoulder radiographs dated TECHNIQUE: Multi-planar, multi-sequence imaging of the left shoulder was performed without IV or intra-articular contrast. FINDINGS: . Acromioclavicular joint: Moderate acro mioclavicular joint osteoarthritis. . Acromion: Mild subacromial bursitis. . Supraspinatus tendon: Full-thickness t ear involving the posterior supraspinatus/anterior infraspinatus fibers at the mid cuff, measuring approximately 1.2 cm in AP dimension. This is best seen on series 5, image 11 and series 7, image 7. Mild supraspin atus muscle atrophy. . Infraspinatus tendon: High-grade artic ular surface tear of the infraspinatus tendon at the footprint. Background of moderate tendinosis. . Subscapularis tendon: Low-grade articu lar surface tear of the subscapularis tendon. Background of mild tendinosis. . Teres minor tendon: Intact. . Long head of biceps: Intact and in mala tomic position. Mild tendinosis above the groove. Mild tenosynovitis below the groove. . Glenohumeral joint: Small joint effusi on and synovitis focal partial-thickness chondrosis along the anterior upper glenoid (series 5, image 15). . Labrum: Superior labral fraying. . Bones: Normal marrow signal. No fractu re, neoplasm, or avascular necrosis. CONCLUSION: 1. Full-thickness tear involving the sup raspinatus and infraspinatus tendons at the mid cuff. 2. High-grade articular surface tear of the infraspinatus tendon at the footprint. 3. Low-grade articular surface tear of t he subscapularis tendon. 4. Moderate infraspinatus and mild subsc apularis tendinosis. 5. Small glenohumeral joint effusion and synovitis. 6. Mild glenohumeral joint osteoarthriti s with superior labral fraying. 7. Moderate acromioclavicular joint oste oarthritis and mild subacromial bursitis. 8. Mild long head biceps tendinosis abov e the groove. Mild tenosynovitis below the groove. Madeline Smith [facility] MRI ORDERABLES documented in this encounter Visit Diagnoses Diagnosis Tendinopathy of left rotator cuff - Prim avelino Tendinopathy of left rotator cuff documented in this encounter Administered Medications Inactive Administered Medications - up to 3 most recent administrations Medication Order MAR Action Action Date Dose Rate Site lidocaine (XYLOCAINE) 10 mg/mL (1 Given 11/13/2018 10:27 AM EDT 6 mLs %) injection 6 mL 6 mL Once, Other, On Tu11/13/18 at 1115, For 1 dose triamcinolone acetonide (KENALOG-40) 40 mg/mL Given 10:27 AM EDT 40 mg injection 40 mg 40 mg Once, Intra-articular, On 11/13/18 at 1115, For 1 dose documented in this encounter Care Teams Negative Turner Relationship Specialty Start Date End Date Neal Breen MD PCP - General Family Medicine 07/31/18 07/14/[address] [place] [id number] documented as of this encounter
--- OUTSIDE RECORDS SUMMARY | 2021-11-30 11:49 | XMS_ITS | Encounter Summary ---
:1955 Author Organization [facility] [place] [address] Care Team Providers Name Role Phone Neal Breen MD Primary Care Provider Encounter Details Date Type Department Care Team Description 12/31/2018 Telephone Neuropsychology - [facility] [place] [phone] [place], [place] [phone] Social History Tobacco Use Types Packs/Day Years [...] this encounter Miscellaneous Notes Telephone Encounter - Lesli Arellano - 12/31/2018 10:18 AM EDT Left vm about scheduling appt documented in this encounter Plan of Treatment Not on filedocumented as of this encounter Visit Diagnoses Not on filedocumented in this encounter Care Teams [employer] Supervisor Relationship Specialty Start Date End Date Neal Breen MD PCP - General Family Medicine 07/31/18 07/14/[address] [place] [id number] documented as of this encounter
--- OUTSIDE RECORDS SUMMARY | 2021-11-30 11:49 | XMS_ITS | Encounter Summary ---
:1955 Author Organization [facility] [place] [address] Care Team Providers Name Role Phone Chetna Loredo Primary Care Provider Unavailable Reason for Visit Reason Comments Injections Synvisc injection for the ri ght knee, 06/17. Medication (Routine) - Closed Specialty Diagnoses / Procedures Referred By Contact Refer red To Contact Pharmacy Diagnoses Primary osteoarthritis of right knee Nasir Vega PA-C [facility] [address] [place] [address] [phone] [place] [address] Phone: Referral ID Status Reason Start Expiration Visits Visits Date Date Requested Authorized [id number] Closed Medication 10/02/2017 10/02/2018 3 3 authorization Encounter Details Date Type Department Care Team Description 11/16/2017 Clinical Support Orthopaedics - Nasir Abrams, Primary osteoarthritis [address] [place] [address] N DEBBEI of right knee (Primary [facility] [place] [id number] Dx) [id number] [phone] [place] [address] Social History Tobacco Use Types Packs/Day Years [...] encounter Progress Notes Nasir Vega PA-C - 11/16/2017 2:00 PM EDT Mike Bishop 62 y.o. male Chief Complaint: Knee Arthritis HPI: Patient Presents For right Knee 3 Of 3 Synvisc Injections Patient is here [...] concerning medication Patient Given right Knee Synvisc Injection with kenalog. The patient should avoid exercise for two days following the injection. Observe for signs of infection, call if any redness,warmth, swelling or increased pain Application ice, 10 - 15 minutes -once or twice today, once or twice tomorrow. Call if any change in symptoms Follow up as planned No diagnosis found. Electronically signed by: Nasir Vega PA-C 11/16/17 1458 documented in this encounter Plan of Treatment Not on filedocumented as of this encounter Visit Diagnoses Diagnosis Primary osteoarthritis of right knee - P rimary documented in this encounter Administered Medications Inactive Administered Medications - up to 3 most recent administrations Medication Order MAR Action Action Date Dose Rate Site hylan (SYNVISC) injection 16 mg Given 11/16/2017 2:56 PM EDT 16 mg 16 mg Weekly, Intra-articular, First dose on Mon11/17/17 at 0900, For 3 doses triamcinolone acetonide (KENALOG-40) 40 mg/mL Given 2:57 PM EDT 40 mg injection 40 mg 40 mg Once, Intra-articular, On Mon11/16/17 at 1545, For 1 dose documented in this encounter Care Teams Ship Keeper Relationship Specialty Start Date End Date Chetna oLredo PCP - General Family Medicine 05/19/16 04/13/18 documented as of this encounter
--- OUTSIDE RECORDS SUMMARY | 2021-11-30 11:49 | XMS_ITS | Encounter Summary ---
:1955 Author Organization [facility] [place] [address] Care Team Providers Name Role Phone Neal Breen MD Primary Care Provider [phone] Reason for Referral (Routine) - Closed Specialty Diagnoses / Procedures Referred By Contact Refer red To Contact Diagnoses Recurrent nephrolithiasis Mindy Aaron Procedures URINARY SYSTEM/RENAL BERNARD [facility] [place], [place] [address] Referral ID Status Reason Start Date Expiration Date Visits Requ ested Visits Authorized [id number] Closed 09/13/2018 11/14/2019 1 1 Reason for Visit (Routine) - Closed Specialty Diagnoses / Procedures Referred By Contact Refer red To Contact Diagnoses Recurrent nephrolithiasis Mindy Aaron Procedures URINARY SYSTEM/RENAL BERNARD [facility] [place], [place] [address] Referral ID Status Reason Start Date Expiration Date Visits Requ ested Visits Authorized [id number] Closed 09/13/2018 11/14/2019 1 1 Encounter Details Date Type Department Care Team Description 09/17/2018 Hospital Encounter Ultrasound Outpatient Mindy Aaron Imaging - Executive Chely Casey RN [address] [place] [address] [phone] Social History Tobacco Use Types Packs/Day [...] Associated Diagnosis Comme nts US URINARY Routine 09/17/2018 1:52 PM Recurrent Results f or this SYSTEM/RENAL EDT nephrolithiasis procedure ar e in the results section. documented in this encounter Results US URINARY SYSTEM/RENAL (09/17/2018 1:52 PM EDT) Anatomical Region Laterality Modality Abdomen Ultrasound Specimen (Source) Anatomical Collection Method Collection Time Re ceived Time Location / / Volume Laterality 09/17/2018 2:22 PM EDT Impressions 09/17/2018 3:25 PM EDT 1. ??No evidence of hydronephrosis. 2. ??Bilateral small nonobstructive calc nesha versus papillary tip calcifications. Narrative 09/17/2018 3:25 PM EDT ULTRASOUND OF RETROPERITONEUM/URINARY TRACT, 09/17/2018 1:52 PM INDICATION: recurrent nephrolithiasis \ N20.0 Recurrent nephrolithiasis COMPARISON: CT abdomen 01/31/2016. TECHNIQUE: Multiplanar real-time ultraso nography of the retroperitoneum and urinary tract using grayscale imaging, supplemented by color and spectral Doppler as needed. FINDINGS: . ??Right kidney: Length = 11.4 cm. Norm al size, contour, and echogenicity. No hydronephrosis or perinephric fluid. No focal mass is identified. Tiny echogenic structure in the interpolar sinus complex may represent a nonobstructive calculus versus papillary tip calcification. . ??Left kidney: Length = 11.9 cm. Selene l size, contour, and echogenicity. No hydronephrosis or perinephric fluid. No focal mass is identified. Tiny echogenic structure in the interpolar sinus complex m ay represent a nonobstructive calculus v ersus papillary tip calcification. . ??Vascular: Perfusion to both kidneys is documented with color Doppler. . ??Bladder: Normal. Both jets are visua lized. Procedure Note Tanner, Vikash Mcallister MD - 09/17/2018Form atting of this note might be different from the original. ULTRASOUND OF RETROPERITONEUM/URINARY TR ACT, 09/17/2018 1:52 PM INDICATION: recurrent nephrolithiasis \ N20.0 Recurrent nephrolithiasis COMPARISON: CT abdomen 01/31/2016. TECHNIQUE: Multiplanar real-time ultraso nography of the retroperitoneum and urinary tract using grayscale imaging, supplemented by color and spectral Doppler as needed. FINDINGS: . Right kidney: Length = 11.4 cm. Normal size, contour, and echogenicity. No hydronephrosis or perinephric fluid. No focal mass is identified. Tiny echogenic structure in the interpolar sinus complex may represent a nonobstructive calculus versus papillary tip calcification. . Left kidney: Length = 11.9 cm. Normal size, contour, and echogenicity. No hydronephrosis or perinephric fluid. No focal mass is identified. Tiny echogenic structure in the interpolar sinus complex may represent a nonobstructive calculus versus papillary tip calcification. . Vascular: Perfusion to both kidneys is documented with color Doppler. . Bladder: Normal. Both jets are visuali zed. CONCLUSION: 1. No evidence of hydronephrosis. 2. Bilateral small nonobstructive calcul i versus papillary tip calcifications. Mindy Aaron RN IMG US ORDERABLES documented in this encounter Visit Diagnoses Diagnosis Recurrent nephrolithiasis documented in this encounter Care Teams Vault Person Relationship Specialty Start Date End Date Neal Breen MD PCP - General Family Medicine 07/31/18 07/14/[address] [place] [address] documented as of this encounter
--- OUTSIDE RECORDS SUMMARY | 2021-11-30 11:49 | XMS_ITS | Encounter Summary ---
:1955 Author Organization [facility] [place] [address] Care Team Providers Name Role Phone Neal Breen MD Primary Care Provider [phone] Reason for Visit Reason Comments Hematuria Encounter Details Date Type Department Care Team Description 01/03/2019 Emergency Emergency - [facility] [facility] Vikash Guy Dario [address] [place] [id number] Social History Tobacco Use Types Packs/Day [...] Sign Reading Time Taken Comments Blood Pressure 100/57 01/03/2019 5:56 PM EDT Pulse 53 01/03/2019 3:31 PM EDT Temperature 36.8 ??C (98.3 ??F) 01/03/2019 5:56 PM EDT Respiratory Rate 18 01/03/2019 5:56 PM EDT Oxygen Saturation 96% 01/03/2019 5:56 PM EDT Inhaled Oxygen Concentration - - Weight 107.4 kg (236 lb 12.8 oz) 01/03/2019 3:32 PM EDT Height - - Body Mass Index 33.98 01/03/2019 2:14 PM EDT documented in this [...] as of this encounter Discharge Instructions Discharge InstructionsDavid Dario Guy MD - 01/03/2019 5:52 PM EDT [facility] Hematuria WHAT YOU NEED TO KNOW: Hematuria is blood in your urine. Your urine may be bright red to dark brown. DISCHARGE INSTRUCTIONS: Return to the emergency department if: ?? You have blood in your urine after a new injury, such as a fall. ?? You are urinating very small amounts or not at all. ?? You feel like you cannot empty your bladder. ?? You have severe back or side pain that does not go away with treatment. Contact your healthcare provider if: ?? You have a fever that gets worse or does not go away with treatment. ?? You cannot keep liquids or medicines down. ?? Your urine gets darker, even after you drink extra liquids. ?? You have questions or concerns about your condition, treatment, or care. Drink liquids as directed: You may need to drink extra liquids to help flush the blood from your body through your urine. Water is the best liquid to drink. Ask how much liquid to drink each day and which liquids are best for you. Follow up with your healthcare provider as directed: Write down your questions so you remember to ask them during your visits. ?? Copyright [employer] 2019 Information is for End User's use only and may not be sold, redistributed or otherwise used for commercial purposes. All illustrations and images included in CareNotes?? are the copyrighted property of [employer]. or kapt[employer] The above information is an early childhood educator aide only. It is not intended as medical advice for individual conditions or treatments. Talk to your doctor, nurse or pharmacist before following any medical regimen to see if it is safe and effective for you. Where can you learn more? Log into [employer] at www.[employer] and enter the title of this document [...] documented as of this encounter ED Notes Vikash Guy MD - 01/03/2019 4:59 PM EDT History Chief Complaint Patient presents with ??? Hematuria The history is provided by the patient. Hematuria This is a new problem. The current episode started in the past 7 days. The problem is unchanged. He describes the hematuria as gross hematuria. The hematuria occurs during the initial portion of his urinary stream. The pain is mild. Irritative symptoms do not include frequency, nocturia or urgency. Obs tructive symptoms do not include incomplete emptying. Associated symptoms include flank pain. Pertinent negatives include no abdominal pain, chills, fever, nausea or vomiting. His past medical history is significant for kidney stones. Past Medical History: Diagnosis Date ??? Acute [...] (Right L2-5); Surgeon: Petr Brito MD; Location: [facility]; Service: Rehab Medicine; Laterality: N/A; ??? 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 [...] Grandfather ??? Stroke Neg Hx Social History Substance Use Topics ??? Smoking status: Former Smoker Types: Cigarettes Quit date: 04/16/1989 ??? Smokeless tobacco: Never Used ??? Alcohol use Yes Comment: occasional beer Review of Systems Constitutional: Negative for chills and fever. Gastrointestinal: Negative for abdominal pain, nausea and vomiting. Genitourinary: Positive for flank pain and hematuria. Negative for frequency, incomplete emptying, nocturia and urgency. All other systems reviewed and are negative. Physical Exam ED Triage Vitals BP 01/03/19 1531 108/61 MAP (mmHg) -- Pulse 01/03/19 1531 53 Resp 01/03/19 1531 18 Temp 01/03/19 1531 97.6 ??F (36.4 ??C) SpO2 01/03/19 1531 95 % Weight 01/03/19 1532 107.4 kg (236 lb 12.8 oz) Physical Exam Nursing note and vitals reviewed. Physical Exam Vitals: 01/03/19 1532 01/03/19 1600 01/03/19 1756 01/03/19 1800 BP: 100/57 Pulse: Temp: 98.3 ??F (36.8 ??C) Resp: 18 SpO2: 96% PainSc: 4-Four (moderate) 0-Zero Weight: 107.4 kg (236 lb 12.8 oz) Constitutional: Patient is in no acute distress Head: Normocephalic and atraumatic. Eyes: Extraocular motion intact, no scleral icterus Neck: Supple without meningismus, mass, or overt JVD Respiratory: Effort normal and breath sounds normal. No respiratory distress. CV: heart: normal rate and rhythm, no obvious murmurs. Pulses +2 and symmetric Abdomen: Soft, non-tender, non-distended MSK: Extremities are atraumatic without deformity, ROM intact, no edema Skin: Warm, dry, intact Neuro: Alert and oriented, no motor deficit, no sensory deficit noted. CN tested normal. Psychiatric: Mood and affect are normal. ED Course Procedures MDM MDM presents with flank pain and concern for kidney stone versus kidney infection. His labs show hematuria but no acute pathology. His CT scan shows no acute abnormality. Unclear cause for his hematuria. He does not have symptoms for prostatitis. He does not have any evidence for an acute infection. Will advise follow-up with urology. I estimate there is LOW risk for ACUTE APPENDICITIS, BOWEL OBSTRUCTION, CHOLECYSTITIS, DIVERTICULITIS, INCARCERATED HERNIA, MESENTERIC ISCHEMIA, PANCREATITIS, or PERFORATED BOWEL or ULCER, thus I consider the discharge disposition reasonable. Also, there is no evidence or peritonitis, sepsis, or toxicity. We have discussed the diagnosis and risks, and we agree with discharging home to follow-up with their primary doctor. We also discussed returning to the Emergency Department immediately if new or worsening symptoms occur. We have discussed the symptoms which are most concerning (e.g., bloody stool, fever, changing or worsening pain, vomiting) that necessitate immediate return. Nursing note and vitals reviewed. I have reviewed and agree with the nursing documentation on past medical history, family history, and social history. Portions of this note were dictated using [employer]ict[employer] services. If there are any errorsor you have any questions, please contact me for clarification. Medications 0.9% NaCl bolus (1,000 mLs Intravenous New Bag 01/03/19 9802) Clinical Impression: No diagnosis found. ED Disposition None Electronically signed by: Vikash Guy MD 01/03/19 1821 Huey Geiger RN - 01/03/2019 3:40 PM EDT at bedside. Ni Chapin - 01/03/2019 3:32 PM EDT Pt arrives POV from PCP office for evaluation of possible dehydration, right flank pain, hematuria Reports BP low at PCP office (90s systolic); denies dizziness, CP/SHOB PCP requesting US of kidneys and prostate per pt documented in this encounter Plan of Treatment Not on filedocumented as of this encounter Procedures Procedure Name Priority Date/Time Associated Comments Diagnosis URINE CULTURE STAT 01/03/2019 5:57 PM Results for this EDT procedure are i n the results section. UA, MICROSCOPIC IF STAT 01/03/2019 5:13 PM Res ults for this INDICATED BY DIPSTICK EDT proced ure are in the results section. CBC WITH AUTO STAT 01/03/2019 4:29 PM Results for this DIFFERENTIAL PANEL EDT procedure are in the results section. CBC AND DIFFERENTIAL STAT 01/03/2019 4:29 PM R esults for this EDT procedure are i n the results section. COMPREHENSIVE STAT 01/03/2019 4:29 PM Results for this METABOLIC PANEL EDT procedure ar e in the results section. CT ABDOMEN PELVIS WO STAT 01/03/2019 4:26 PM R esults for this CONTRAST (STONE) EDT procedure a re in the results section. documented in this encounter Results Urine Culture (01/03/2019 5:57 PM EDT) Analysis Performed At Patho logist Time Signature Urine culture No growth 01/05/2019 [facility] ID 4:12 PM EDT [facility] Specimen Anatomical Collection Method Collection Time Receive d Time (Source) Location / / Volume Laterality Urine specimen URETHRAL STRUCTURE 01/03/2019 5:57 PM 0 01/03/2019 5:57 (specimen) / Unknown EDT PM EDT Vikash Guy MICROBIOLOGY - GENERAL ORDER MASOUD Performing Organization Address City/State/ZIP Code Phon e Number [facility] CLIA# [id number] [place] [address] PATH[facility] [place] (ABNORMAL) UA, Microscopic If Indicated By Dipstick (01/03/2019 5:13 PM EDT) [facility] Method Time Signature Urine Color Yellow Yellow 01/03/2019 [facility] 5:31 PM EDT [facility] Urine Appearance Clear Clear 01/03/2019 [facility] 5:31 PM EDT [facility] Urine Specific >=1.030 (A) 1.001 - 01/03/2019 [facility] [place] 1.035 5:31 PM EDT ON [facility] Urine pH 5.5 4.6 - 8.0 01/03/2019 [facility] 5:31 PM EDT ON [facility] Urine Protein Negative Negative 01/03/2019 [facility] MG/DL 5:31 PM EDT ON [facility] Urine Glucose Negative Negative 01/03/2019 [facility] MG/DL 5:31 PM EDT ON [facility] Urine Ketone Negative Negative, 01/03/2019 [facility] 15 MG/DL 5:31 PM EDT ON [facility] Urine Bilirubin Negative Negative 01/03/2019 [facility] 5:31 PM EDT ON [facility] Urine Blood/Hb Moderate (A) Negative 01/03/2019 [facility] 5:31 PM EDT ON [facility] Urine 0.2 0.2 - 1.0 01/03/2019 [facility] Urobilinogen EU/DL 5:31 PM EDT ON [facility] Urine Nitrite Negative Negative 01/03/2019 [facility] 5:31 PM EDT ON [facility] Urine Leukocyte Negative Negative 01/03/2019 [facility] Esterase 5:31 PM EDT ON [facility] Urine WBC 0-5 None seen, 01/03/2019 [facility] 0-5 /HPF 5:31 PM EDT ON [facility] Urine RBC 9-15 (A) None seen, 01/03/2019 [facility] 0-3 /HPF 5:31 PM EDT ON [facility] Urine Epithelial Few None seen, 01/03/2019 [facility] Cells Few /HPF 5:31 PM EDT [facility] Urine Bacteria None seen None seen, 01/03/2019 [facility] Rare, Few 5:31 PM EDT ON [facility] Specimen Anatomical Collection Method Collection Time Receive d Time (Source) Location / / Volume Laterality Urine specimen URINE SPECIMEN / 01/03/2019 5:13 PM 5:16 (specimen) Unknown EDT PM EDT Vikash Guy URINE ORDERABLES Performing Organization Address City/State/ZIP Code Phon e Number [facility] CLIA# [id number] [place] [address] [facility] [address] [facility] CLIA#[id number] [place] [address] [facility] [address] (ABNORMAL) CBC and Differential (01/03/2019 4:29 PM EDT) Analysis Performed At Patho logist Time Signature WBC 5.7 4.6 - 10.2 01/03/2019 [facility] x 10*3/uL 4:42 PM EDT [facility] RBC 4.18 (L) 4.69 - 01/03/2019 [facility] 6.13 x 4:42 PM EDT [facility] 10*6/uL [facility] Hemoglobin 12.3 (L) 14.1 - 01/03/2019 [facility] 18.1 G/DL 4:42 PM EDT [facility] Hematocrit 36.3 (L) 43.5 - 01/03/2019 [facility] 53.7 % 4:42 PM EDT [facility] MCV 86.6 80.0 - 01/03/2019 [facility] 97.0 FL 4:42 PM EDT [facility] MCH 29.5 27.0 - 01/03/2019 [facility] 31.2 PG 4:42 PM EDT [facility] MCHC 34.0 31.8 - 01/03/2019 [facility] 35.4 G/DL 4:42 PM EDT [facility] RDW 14.2 11.6 - 01/03/2019 [facility] 14.8 % 4:42 PM EDT [facility] Platelets 236 142 - 424 01/03/2019 [facility] X 10*3/uL 4:42 PM EDT [facility] MPV 7.5 (L) 7.8 - 11.0 01/03/2019 [facility] FL 4:42 PM EDT [facility] Neutrophil % 58 37 - 80 % 01/03/2019 [facility] 4:42 PM EDT [facility] Lymphocyte % 31 10 - 50 % 01/03/2019 [facility] 4:42 PM EDT [facility] Monocyte % 8 0 - 12 % 01/03/2019 [facility] 4:42 PM EDT [facility] Eosinophil % 3 0 - 7 % 01/03/2019 [facility] 4:42 PM EDT [facility] Basophil % 1 0 - 2 % 01/03/2019 [facility] 4:42 PM EDT [facility] Neutrophil 3.3 2.0 - 6.9 01/03/2019 [facility] Absolute x 10*3/uL 4:42 PM EDT [facility] Lymphocyte 1.7 0.6 - 3.4 01/03/2019 [facility] Absolute x 10*3/uL 4:42 PM EDT [facility] Monocyte 0.4 0.0 - 0.9 01/03/2019 [facility] Absolute x 10*3/uL 4:42 PM EDT [facility] Eosinophil 0.1 0.0 - 0.7 01/03/2019 [facility] Absolute x 10*3/uL 4:42 PM EDT [facility] Basophil 0.0 0.0 - 0.2 01/03/2019 [facility] Absolute x 10*3/uL 4:42 PM EDT [facility] Specimen Anatomical Collection Method Collection Time Receive d Time (Source) Location / / Volume Laterality Blood specimen Nurse Collection / 01/03/2019 4:29 PM 0 01/03/2019 4:30 (specimen) Unknown EDT PM EDT Vikash Guy LAB BLOOD ORDERABLES Performing Organization Address City/State/ZIP Code Phon e Number [facility] CLIA# [id number] [place] [address] [facility] [address] [place] CLIA#[id number] [place] [address] [facility] [address] (ABNORMAL) Comprehensive Metabolic Panel (01/03/2019 4:29 PM EDT) Analysis Performed At [facility] Time Signature Sodium 140 136 - 144 01/03/2019 [facility] MMOL/L 4:55 PM EDT [facility] Potassium 3.2 (L) 3.5 - 5.1 01/03/2019 [facility] MMOL/L 4:55 PM EDT [facility] Chloride 109 101 - 111 01/03/2019 [facility]OL[facility]L [facility] CO2 25 23 - 30 01/03/2019 [facility] MMOL/L 4:55 PM EDT [facility] Glucose 114 79 - 115 01/03/2019 [facility] MG/DL 4:55 PM EDT [facility] Creatinine 0.90 0.90 - 01/03/2019 [facility] 1.30 MG/DL 4:[facility] Calcium 8.5 (L) 8.9 - 10.3 01/03/2019 [facility] MG/DL 4:55 PM [facility] Total Protein 6.6 6.5 - 8.1 01/03/2019 [facility] G/DL 4:55 [facility] Albumin 3.8 3.5 - 5.0 01/03/2019 [facility] G/DL 4:55 [facility] Total Bilirubin 0.9 0.3 - 1.2 01/03/2019 [facility] MG/DL 4:55 PM [facility] Alkaline 69 32 - 91 01/03/2019 [facility] Phosphatase IU/L or 4:55 PM EDT [facility] AST (SGOT) 23 15 - 41 01/03/2019 [facility] IU/L or 4:55 PM EDT [facility] ALT (SGPT) 22 17 - 63 01/03/2019 [facility] IU/L or 4:55 PM EDT [facility] U/L [facility] Anion Gap 6 6 - 16 [facility]L 4:55 PM EDT [facility] Est. GFR >=90 >=60 01/03/2019 [facility] Non- ML/MIN/1.7 4:55 PM EDT [facility] [place] [facility] M*2 [facility] Comment: GFR estimated by CKD-EPI equations, repo rtable up to 90 ML/MIN/1.73 M*2 Est. GFR >=90 >=60 ML/MIN/1.73 01/03/2019 4: 55 PM [facility] [place] M*2 EDT [facility] Comment: GFR estimated by CKD-EPI equations, repo rtable up to 90 ML/MIN/1.73 M*2 BUN 14.0 8.0 - 26.0 MG/DL 01/03/2019 4:55 PM EDT [facility] Specimen Anatomical Collection Method Collection Time Receive d Time (Source) Location / / Volume Laterality Blood specimen Nurse Collection / 01/03/2019 4:29 PM 0 01/03/2019 4:30 (specimen) Unknown EDT PM EDT [facility] BLOOD ORDERABLES Performing Organization Address City/State/ZIP Code Phon [facility] Number [id number] [place] [address] [facility] [address] [facility] CLIA#[id number] [place] [address] [facility] [address] ABDOMEN PELVIS WO CONTRAST (STONE) (01/03/2019 4:26 PM EDT) Anatomical Region Laterality Modality Abdomen, Vascular Computed Tomography Specimen (Source) Anatomical Collection Method Collection Time Re ceived Time Location / / Volume Laterality 01/03/2019 4:27 PM EDT Impressions 01/03/2019 4:30 PM EDT Nephrolithiasis without obstruction. Narrative 01/03/2019 4:[address] STONE STUDY, 01/03/2019 4:26 PM INDICATION: abd pain \ abd pain ADDITIONAL HISTORY: Right flank pain COMPARISON: 01/31/2016 TECHNIQUE: Axial images of the abdomen a nd pelvis were obtained without intravenous contrast. Supplemental 2D reformatted images were generated and reviewed as needed. All CT scans at [facility] are performed using dose optimization techniques as appropriate to a performed exam, including but not limited to one o r more of the following: automated expos ure control, adjustment of the mA and/or kV according to patient size, use of iterative reconstruction technique. In addition, [place] is participating in the ACR Do se Registry program which will further a ssist us in optimizing patient radiation exposure. LIMITATIONS: Lack of intravenous contras t decreases sensitivity for the detection of solid organ lesions. FINDINGS: LOWER CHEST Mediastinum: Small hiatal hernia. Heart/vessels: Within normal limits. Pleura: Within normal limits. Lungs: Within normal limits. ABDOMEN Liver: Within normal limits. Gallbladder/biliary: Within normal limit s. Spleen: Within normal limits. Pancreas: Within normal limits. Adrenals: Within normal limits. Kidneys: Increasing calyceal stone burde n bilaterally without hydronephrosis. Similar perinephric fat stranding. Peritoneum/mesenteries: Within normal li mits. Extraperitoneum: Within normal limits. Gastrointestinal tract: No bowel obstruc tion. Appendectomy. Vascular: Within normal limits. PELVIS Peritoneum: Within normal limits. Extraperitoneum: Fat-containing inguinal hernias. Ureters: Within normal limits. Bladder: Within normal limits. Reproductive system: Within normal limit s. Vascular: Within normal limits. MSK: Moderate degenerative changes in lorena mbar spine. Procedure Note Aubrey Guerra Jr., MD - 01/04/[address] STONE STUDY, 01/03/2019 4:26 PM INDICATION: abd pain \ abd pain ADDITIONAL HISTORY: Right flank pain COMPARISON: 01/31/2016 TECHNIQUE: Axial images of the abdomen a nd pelvis were obtained without intravenous contrast. Supplemental 2D reformatted images were generated and reviewed as needed. All CT scans at [facility] are performed using dose optimization techniques as appropriate to a performed exam, including but not limited to one or more of the following: automated exposure control, a djustment of the mA and/or kV according to patient size, use of iterative reconstruction technique. In addition, [place] is participating in the ACR Dose Registry program which will further assist us in optimizing pat ient radiation exposure. LIMITATIONS: Lack of intravenous contras t decreases sensitivity for the detection of solid organ lesions. FINDINGS: LOWER CHEST Mediastinum: Small hiatal hernia. Heart/vessels: Within normal limits. Pleura: Within normal limits. Lungs: Within normal limits. ABDOMEN Liver: Within normal limits. Gallbladder/biliary: Within normal limit s. Spleen: Within normal limits. Pancreas: Within normal limits. Adrenals: Within normal limits. Kidneys: Increasing calyceal stone burde n bilaterally without hydronephrosis. Similar perinephric fat stranding. Peritoneum/mesenteries: Within normal li mits. Extraperitoneum: Within normal limits. Gastrointestinal tract: No bowel obstruc tion. Appendectomy. Vascular: Within normal limits. PELVIS Peritoneum: Within normal limits. Extraperitoneum: Fat-containing inguinal hernias. Ureters: Within normal limits. Bladder: Within normal limits. Reproductive system: Within normal limit s. Vascular: Within normal limits. MSK: Moderate degenerative changes in lorena mbar spine. CONCLUSION: Nephrolithiasis without obstruction. Vikash Guy [facility] CT ORDERABLES documented in this encounter Visit Diagnoses Diagnosis Gross hematuria - Primary documented in this encounter Administered Medications Inactive Administered Medications - up to 3 most recent administrations Medication Order MAR Action Action Date Dose Rate Site 0.9% NaCl bolus New Bag 01/03/2019 4:28 PM EDT 1,000 mLs 1,000 mL Once, Intravenous, On Re 01/03/19 at 1630, For 1 dose documented in this encounter Active and Recently Administered Medications Times are shown in EDT. Scheduled Medication Order 01/01/2019 01/02/2019 01/03/2019 0.9% NaCl bolus (COMPLETED) 1628 (New Bag - Provider: Huey Geiger, RN) 1,000 mL Once, Intravenous, Re 01/03/19 at 1630, For 1 dose documented in this encounter Care Teams Health Sciences Manager Relationship Specialty Start Date End Date Neal Breen MD PCP - General Family Medicine 07/31/18 07/14/[address] [place] [id number] documented as of this encounter
--- OUTSIDE RECORDS SUMMARY | 2021-11-30 11:49 | XMS_ITS | Encounter Summary ---
:1955 Author Organization [facility] [place] [address] Care Team Providers Name Role Phone Pcp, Patient Does Not Have Primary Care Provider [phone] Reason for Referral MRI/CAT Scan (Routine) - Closed Specialty Diagnoses / Procedures Referred By Contact Refer red To Contact Radiology Diagnoses Nontraumatic subacute subdural hemorrhage (HCC) Tr Sher Jr., MD [facility] Mri Imaging Procedures MR BRAIN W & WO CONTRAST [address] [address] [address] [place] [address] Fax: Referral ID Status Reason Start Date Expiration Date Visits Requ ested Visits Authorized [id number] Closed 06/26/2018 08/27/2019 1 1 Reason for Visit MRI/CAT Scan (Routine) - Closed Specialty Diagnoses / Procedures Referred By Contact Refer red To Contact Radiology Diagnoses Nontraumatic subacute subdural hemorrhage (HCC) Tr Sher Jr., MD [facility] Mri Imaging Procedures MR BRAIN W & WO CONTRAST [address] [address] [address] [place] [address] Fax: Referral ID Status Reason Start Date Expiration Date Visits Requ ested Visits Authorized [id number] Closed 06/26/2018 08/27/2019 1 1 Encounter Details Date Type Department Care Team Description 07/06/2018 Hospital Encounter MRI Outpatient Imaging Tr Sehr - Executive Chely Tineo [place] [facility] [place] [address] [place] [address] [phone] [place], [place] [phone] (Wo rk) Social History Tobacco Use Types [...] (LIPITOR) 20 Take 20 mg by 0 07/31/2018 MG tablet mouth daily. clopidogrel (PLAVIX) 75 mg Take 1 tablet (75 30 tablet 2 09/24/2018 tablet *ANTIPLATELET* mg total) by mouth daily. cyclobenzaprine (FLEXERIL) Take 1 tablet (10 20 tablet 0 07/08/2021 10 MG tablet mg total) by mouth 2 (two) times daily as needed for up to [address] 1 drop into 0 019 70/POLYCARBOPHIL/PEG/NACL both eyes as (ARTIFICIAL TEAR SOLUTION needed. OPHT) flecainide (TAMBOCOR) 100 take 1 tablet by 60 tablet 5 04/1712/04/2018 MG tablet mouth twice a day fluticasone (FLONASE) 50 2 sprays by Each 0 08/2104/04/2019 mcg/actuation nasal spray Nare route daily as needed. metFORMIN (GLUCOPHAGE) 500 Take 500 mg by 0 08/0307/31/2018 MG tablet mouth 2 times daily with meals. metoPROLOL succinate take 1 tablet by 30 tablet 5 8 07/31/2018 (TOPROL-XL) 50 MG 24 hr mouth once daily tablet multivitamin capsule Take 1 capsule by 0 03/01/2021 mouth daily. documented as of this encounter Plan of Treatment Not on filedocumented as of this encounter Procedures Procedure Name Priority Date/Time Associated Diagnosis Comme nts MR BRAIN WWO Routine 07/06/2018 10:17 Nontraumatic subacute Re sults for this CONTRAST PM EDT subdural hemorrhage procedur e are in (HCC) the results section. documented in this encounter Results MR BRAIN W & WO CONTRAST (07/06/2018 10:17 PM EDT) Anatomical Region Laterality Modality Head Magnetic Resonance Specimen (Source) Anatomical Collection Method Collection Time Re ceived Time Location / / Volume Laterality 07/09/2018 8:35 AM EDT Impressions 07/09/2018 1:32 PM EDT 1. ??Evolving right frontal intraparench ymal hematoma, mildly decreased in size from 03/23/2018. Again, this hematoma may relate to amyloid angiopathy given changes of numerous remote small hemorrhages i n both cerebral hemispheres. Hypertensio n may also be contributing. 2. ??No new hemorrhage. 3. ??Small foci of restricted diffusion in the right frontal white matter adjacent and inferior to the caudate head concerning for acute ischemia. This finding was discussed with Ni Gardner, a nurse answering on behalf of Dr. Tr Sher, by Dr. Miguel Giordano via telephone on 07/09/2018 at 12:03 PM. Narrative 07/09/2018 1:32 PM EDT MRI BRAIN WITH AND WITHOUT CONTRAST, 07/06/2018 10:17 PM INDICATION: ??\ I62.02 Nontraumatic suba cute subdural hemorrhage (HCC) COMPARISON: Multiple MRIs, most recent 1 05/24/2017. TECHNIQUE: Multiplanar, multi-sequence M R imaging of the entire brain was performed before and after intravenous administration of gadolinium-based contrast. FINDINGS: Calvarium/skull base: No focal marrow re placing lesion suggestive of neoplasm. Orbits: No focal mass. Paranasal sinuses: No air-fluid levels o r substantial mucosal disease. Brain: Evolving intraparenchymal hematom a now measuring 2.9 x 3.3 x 1.3 cm, mildly decreased in size from 03/23/2018 when measured in similar manner, in the right frontal lobe. An area of hyperintense si gnal along the margin of the hematoma on postcontrast images likely corresponds with intrinsic T1 hyperintensity on the precontrast T1 sagittal sequence (though comparison is difficult without precontra st T1 axial images); this area is curvil inear rather than masslike. Numerous smaller but variably sized foci of susceptibility artifact in both cerebral hemispheres compatible with remote hemorrhages. S mall foci of restricted diffusion in the right frontal white matter adjacent and inferior to the caudate head. Scattered foci of increased T2/FLAIR signal in the periventricular and subcortical white ma tter, likely reflecting chronic microvas cular disease. No hydrocephalus. Diffuse cerebral volume loss. Grossly normal flow-related signal in the major intracranial arteries and dural sinuses. ? Additional comments: None. Procedure Note Pavan Conteh MD - 07/09/2018 MRI BRAIN WITH AND WITHOUT CONTRAST, 06/16 10:17 PM INDICATION: \ I62.02 Nontraumatic subacu te subdural hemorrhage (HCC) COMPARISON: Multiple MRIs, most recent 1 05/24/2017. TECHNIQUE: Multiplanar, multi-sequence M R imaging of the entire brain was performed before and after intravenous administration of gadolinium-based contrast. FINDINGS: Calvarium/skull base: No focal marrow re placing lesion suggestive of neoplasm. Orbits: No focal mass. Paranasal sinuses: No air-fluid levels o r substantial mucosal disease. Brain: Evolving intraparenchymal hematom a now measuring 2.9 x 3.3 x 1.3 cm, mildly decreased in size from 03/23/2018 when measured in similar manner, in the right frontal lobe. An area of hyperintense signal along the margin of the hematoma on postcontra st images likely corresponds with intrinsic T1 hyperintensity on the precontrast T1 sagittal sequence (though comparison is difficult without precontrast T1 axial images); this area is curvilinear rather than masslike . Numerous smaller but variably sized foci of susceptibility artifact in both cerebral hemispheres compatible with remote hemorrhages. Small foci of restricted diffusion in the right frontal white matter adjacent and inferior to the caudate head. Scattered foci of increased T2/FLAIR signal in the periventricular and subcortical white matter, likely reflecting chronic microvascular disease. No hydrocephalus. Diffuse cerebral volum e loss. Grossly normal flow-related signal in the major intracranial arteries and dural sinuses. Additional comments: None. CONCLUSION: 1. Evolving right frontal intraparenchym al hematoma, mildly decreased in size from 03/23/2018. Again, this hematoma may relate to amyloid angiopathy given changes of numerous remote small hemorrhages in both cerebral hemispheres. Hypertension may also be co ntributing. 2. No new hemorrhage. 3. Small foci of restricted diffusion in the right frontal white matter adjacent and inferior to the caudate head concerning for acute ischemia. This finding was discussed with Ni Gardner, a nurse answering on behalf of Dr. Tr Sher, by Dr. Miguel Giordano via telephone on 07/09/2018 at 12:03 PM. Tr Sher Jr., MD IMG MRI ORDERABLES documented in this encounter Visit Diagnoses Diagnosis Nontraumatic subacute subdural hemorrhag e (HCC) documented in this encounter Care Teams Aircraft Dispatcher Relationship Specialty Start Date End Date Pcp, Patient Does Not Have PCP - General Family Medicine 07/06/18 07/30/18 documented as of this encounter
--- OUTSIDE RECORDS SUMMARY | 2021-11-30 11:49 | XMS_ITS | Encounter Summary ---
:1955 Author Organization [facility] [place] [address] Care Team Providers Name Role Phone Neal Breen MD Primary Care Provider [phone] Reason for Visit Reason Comments Follow-up 6 wk - DM2, HTN, HLD, hx of CVA Encounter Details Date Type Department Care Team Description 09/24/2018 Office Visit [facility] Neal Breen due to drugs (Primary Dx); Network Family Miguel MD Cerebral amyloid angiopathy (HCC); Medicine [facility] 13 [facility] Seizure (HCC) [address] [place] [phone] Social History Tobacco Use Types [...] Sign Reading Time Taken Comments Blood Pressure 97/65 09/24/2018 10:22 AM EDT Pulse 66 09/24/2018 10:22 AM EDT Temperature 36.6 ??C (97.8 ??F) 09/24/2018 10:22 AM EDT Respiratory Rate 20 09/24/2018 10:22 AM EDT Oxygen Saturation 96% 09/24/2018 10:22 AM EDT Inhaled Oxygen Concentration - - Weight 116.6 kg (257 lb) 09/24/2018 10:22 AM EDT Height 177.8 cm (5' 10) 09/24/2018 10:22 AM EDT Body Mass Index 36.88 09/24/2018 10:22 AM EDT documented in this encounter Functional [...] encounter Progress Notes Neal Breen MD - 09/24/2018 10:30 AM EDT Chief Complaint Patient presents with ??? Follow-up 6 wk - DM2, HTN, HLD, hx of CVA HPI 1.-Blood pressure-slightly low. Notes he is generally asymptomatic. Likely in context of his flecainide and metoprolol. Notes he only occasionally has mild dizzy episodes when changing positions but itdoes not bother him badly and he has had no falls 2. Has a history of CVA. MRI recently shows cerebral amyloid angiopathy. Is only on 10 mg of atorvastatin at this time 3. Recent seizure-significant other notes that when he was out in the sun the other day he became hot, flushed, and had a syncopal event with subsequent seizure with shaking of the upper extremities loss of consciousness and a postictal period. Notes EMS was called but he refused to go to the emergency department as recommended. Review of Systems Constitutional: Negative for malaise/fatigue. Musculoskeletal: Negative for falls. Neurological: Positive for dizziness, seizures and loss of consciousness. Negative for weakness. Psychiatric/Behavioral: Positive for memory loss. The patient is not nervous/anxious. Past Medical History: Diagnosis Date ??? Acute CVA (cerebrovascular accident) (HCC) 09/16/2017 ??? Arthritis ??? 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 Diabetes mellitus (HCC) ??? Hyperlipemia ??? Hypertension ??? Ruptured appendix ??? Tachycardia Exam Vitals: 09/24/18 1022 BP: 97/65 Pulse: 66 Temp: 97.8 ??F (36.6 ??C) Resp: 20 SpO2: 96% PainSc: 0-Zero Position: Sitting Body mass index is 36.88 kg/m??. Constitutional: Patient appears well-developed and well-nourished. No distress. Head: Normocephalic and atraumatic. Neck: Grossly normal range of motion. Neck supple. Pulmonary/Chest: Effort normal. No respiratory distress. Neurological: Alert and oriented. Normal muscle tone. Skin: Skin is warm and dry. No rash noted. Psychiatric: Patient has a normal mood and affect. Behavior is normal. MRI BRAIN WITH AND WITHOUT CONTRAST, 09/09/2018 11:56 AM INDICATION: \ I62.9 Subacute intracranial hemorrhage (HCC) COMPARISON: MRI brain dated 07/06/2018, 03/23/2018, and 03/04/2018. TECHNIQUE: Multiplanar, multi-sequence MR imaging of the entire brain was performed before and afterintravenous administration of gadolinium-based contrast. FINDINGS: Calvarium/skull base: No focal marrow replacing lesion suggestive of neoplasm. Orbits: No focal mass. Paranasal sinuses: No air-fluid levels or substantial mucosal disease. Brain: No evidence of acute abnormality. Redemonstrated sequelae of the now remote right frontal lobe interparenchymal hematoma with a 20 x 26 mm region of encephalomalacia and volume loss in the rightfrontal lobe. Similar curvilinear enhancement along the margin of the primary hematoma without evidence of masslike enhancement. No evidence of acute hemorrhage. Of note, the multiple foci of susceptibility artifact demonstrated on the prior MRI exams are less conspicuous in this exam secondary to decreased sensitivity of the GRE sequence compared with SWAN, particularly with a short TE (5.5 in this study). No evidence of acute infarct. Similar background of scattered periventricular and subcortical whitematter T2/FLAIR hyperintensity which is nonspecific but consistent with chronic microvascular ischemia. Grossly normal flow-related signal in the major intracranial arteries and dural sinuses. CONCLUSION: ?? 1. No acute intracranial abnormality. 2. Sequela of remote right frontal lobe intracranial hemorrhage and findings consistent with amyloidangiopathy. Assessment 1. Hypotension due to drugs 2. Cerebral amyloid angiopathy (HCC) 3. Seizure (HCC) Plan 1. Hypotension-likely due to drugs-I think it is possibly due to his metoprolol. We discussed this at length. Given that he is only minimally symptomatic at this point we discussed the options of decreasing the metoprolol or leaving alone. If we decrease the metoprolol he may be at more risk for SVT. He elects to hold off on medication changes for now 2. Cerebral amyloid angiopathy- increasing Lipitor to 40 mg of the would now be on high intensity statin 3. Seizure-seems likely this episode was due to either heat related illness or dehydration. Regardless it seems he did by description have a grand mal seizure. Advised the patient that he is currently not safe to drive for a period of 6 months until he seizure-free for 6 months. He voices understanding and notes that he will voluntarily not drive during this time. He is to contact his neurologist YOLANDA for follow-up and his significant other notes she will help with this.. I am concerned that given his CVA history that this could be a seizure focus and think he might need an EEG. For any future seizures in the interim until he sees neurology is to go immediately to the emergency department Orders Placed This Encounter Medications ??? atorvastatin (LIPITOR) 40 MG tablet Sig: Take 1 tablet (40 mg total) by mouth daily. Dispense: 90 tablet Refill: 5 Portions of this note were completed with [employer] dictation software so please excuse typographical errors. Electronically signed by: Neal Breen MD 09/25/18 1010 documented in this encounter Plan of Treatment Not on filedocumented as of this encounter Visit Diagnoses Diagnosis Hypotension due to drugs - Primary Other iatrogenic hypotension Cerebral amyloid angiopathy (HCC) Other amyloidosis Seizure (HCC) Other convulsions documented in this encounter Care Teams Senior Planning Manager Relationship Specialty Start Date End Date Neal Breen MD PCP - General Family Medicine 07/31/18 07/14/[address] [place] [address] documented as of this encounter
--- OUTSIDE RECORDS SUMMARY | 2021-11-30 11:49 | XMS_ITS | Encounter Summary ---
:1955 Author Organization [facility] [place] [address] Care Team Providers Name Role Phone Neal Breen MD Primary Care Provider [phone] Encounter Details Date Type Department Care Team Description 12/13/2018 Telephone [facility] Neal Barlow MD [address] [address] [place] [address] [phone] Social History Tobacco Use Types Packs/Day Years [...] Telephone Encounter - Nicole Sy RN - 12/13/2018 3:29 PM EDT Spoke with patient's and scheduled him for 01/15/[address] Breen. Electronically signed by: Nicole Sy RN 12/13/18 1530 Telephone Encounter - Neal Breen MD - 12/13/2018 12:30 PM EDT Would prefer myself, if nothing available he can have a 30 min visit at 230 Electronically signed by: Neal Breen MD 12/13/18 1230 Telephone Encounter - Nicole Sy RN - 12/13/2018 11:51 AM EDT Does this patient need to see you or can he be scheduled with any provider? Electronically signed by: Nicole Sy RN 12/13/18 1151 Telephone Encounter - Shabnam Campbell - 12/13/2018 11:42 AM EDT Pt needs a f/u appointment in Jan. Please advise where I can schedule this appointment documented in this encounter Plan of Treatment Not on filedocumented as of this encounter Visit Diagnoses Not on filedocumented in this encounter Care Teams Securities Adviser Relationship Specialty Start Date End Date Neal Breen MD PCP - General Family Medicine 07/31/18 07/14/[address] [place] [address] documented as of this encounter
--- OUTSIDE RECORDS SUMMARY | 2021-11-30 11:49 | XMS_ITS | Encounter Summary ---
:1955 Author Organization [facility] [place] [address] Care Team Providers Name Role Phone Neal Breen MD Primary Care Provider [phone] Encounter Details Date Type Department Care Team Description 08/01/2018 Telephone [facility] Joel Mo [address] [address] Social History Tobacco Use Types [...] Telephone Encounter - Susy Meade CMA - 08/01/2018 11:41 AM EDT Spoke with patient and advised patient of a need for another urine sample. Patient states will come this afternoon before close or in am. Electronically signed by: Susy Meade CMA 08/01/18 1142 Telephone Encounter - Susy Meade CMA - 08/01/2018 11:41 AM EDT ----- Message from Neal Breen MD sent at 08/01/2018 10:59 AM EDT ----- Regarding: UA Please contact lab. I ordered a POCT urine dip yesterday which apparently was not done. I have cancelled that and ordered a urine dip but that has not been done either. Please have them run this test or alternatively have him go back to lab to give a new sample... Electronically signed by: Susy Meade CMA 08/01/18 1141 documented in this encounter Plan of Treatment Not on filedocumented as of this encounter Visit Diagnoses Not on filedocumented in this encounter Care Teams Barn And Property Manager Relationship Specialty Start Date End Date Neal Breen MD PCP - General Family Medicine 07/31/18 07/14/[address] [place] [address] documented as of this encounter
--- OUTSIDE RECORDS SUMMARY | 2021-11-30 11:49 | XMS_ITS | Encounter Summary ---
:1955 Author Organization [facility] [place] [address] Care Team Providers Name Role Phone Neal Breen MD Primary Care Provider Encounter Details Date Type Department Care Team Description 09/03/2018 Orders Only [facility] Heather Johnson ntricular Network Cardiology - Priscilla, WIND POWER PROJECT MANAGER tachycardia (HCC) [facility] (Primary Dx) [address] [place] [phone] Social History Tobacco Use Types Packs/Day Years [...] as of this encounter Visit Diagnoses Diagnosis Supraventricular tachycardia (HCC) - Velma andres Other specified cardiac dysrhythmias documented in this encounter Care Teams Party Plan Dealer Relationship Specialty Start Date End Date Neal Breen MD PCP - General Family Medicine 07/31/18 07/14/[address] [place] [address] documented as of this encounter
--- OUTSIDE RECORDS SUMMARY | 2021-11-30 11:49 | XMS_ITS | Encounter Summary ---
:1955 Author Organization [facility] [place] [address] Care Team Providers Name Role Phone Neal Breen MD Primary Care Provider [phone] Reason for Referral (Routine) - Closed Specialty Diagnoses / Procedures Referred By Contact Refer red To Contact Diagnoses Recurrent nephrolithiasis Mindy Aaron Procedures US URINARY SYSTEM/RENAL BERNARD Casey [place], [place] [address] Referral ID Status Reason Start Date Expiration Date Visits Requ ested Visits Authorized [id number] Closed 09/13/2018 11/14/2019 1 1 Reason for Visit Consultation (Routine) - Closed Specialty Diagnoses / Procedures Referred By Contact Refer red To Contact Urology Diagnoses Dysuria Neal Breen MD [id number] [address] [facility] [address] [place] [address] [facility] [address] [place], [place] [address] [place] [phone] Fax: Referral ID Status Reason Start Date Expiration Date Visits V isits Requested Authorized [id number] Closed Specialty 07/31/2018 07/31/2019 1 1 Services Required Encounter Details Date Type Department Care Team Description 09/13/2018 Initial consult Urology - Albert Aaron, Recurrent nephrolithiasis (P rimary Dx); [address] Albert Casey RN Prostatitis, chronic; [facility] Dysuria [facility] [id number] [place] [address] Social History Tobacco Use Types Packs/Day Years [...] Sign Reading Time Taken Comments Blood Pressure 107/72 09/13/2018 1:43 PM EDT Pulse 66 09/13/2018 1:43 PM EDT Temperature - - Respiratory Rate 16 09/13/2018 1:43 PM EDT Oxygen Saturation 95% 09/13/2018 1:43 PM EDT Inhaled Oxygen Concentration - - Weight 113.4 kg (250 lb) 09/13/2018 1:43 PM EDT Height 177.8 cm (5' 10) 09/13/2018 1:43 PM EDT Body Mass Index 35.87 09/13/2018 1:43 PM EDT documented in this encounter Functional [...] documented as of this encounter Progress Notes Mindy Aaron, [employer] - 09/13/2018 1:30 PM EDT Chief Complaint: This patient is seen in consultation for dysuria Fall Screening Do you usually have a device to assist in your mobility? no Patient ID: Dario Mckeon is a 62 y.o. male History of Present Illness: He comes today for evaluation. He has a history of short term memory loss, DM type 2, HTN, hyperlipidemia. He was seen by his PCP and complained of dysuria with bell discharge when he urinates x 1 week. He was presumed to have a UTI and was treated with 10 days of antibiotics. He reports a history ofrenal stones and recurrent prostatitis. He states he has had multiple renal stones but never required intervention. He states he pased a stone about 1 month ago. He denies any flank pain, or gross hematuria at this time. He reports he was diagnosed with prostatitis several years ago and has had about 3 UTI/prostatitis episodes since then. He denies any dysuria, fever, chills or difficulty urinating today. He reports all of his symptoms resolved after taking his antibiotics. Results for orders placed or performed in visit on 09/13/18 (from the past 24 hour(s)) POCT Urine Dipstick Manual No Scope Collection Time: 09/13/18 1:40 PM Result Value Ref Range POC Urine Color gold Yellow POC Urine Appearance clear Clear POC Urine Glucose Negative Negative mg/dL POC Urine Bilirubin Negative Negative POC Urine Ketones Negative Negative mg/dL POC Urine Specific [place] 1.030 (A) 1.005 - 1.025 POC Urine Blood Negative Negative POC Urine pH Dipstick 5.0 4.6 - 8.0 POC Urine Protein Negative Negative mg/dL POC Urobilinogen 0.2 0.2 - 1 mg/dL POC Urine Nitrite Negative Negative POC Urine Leukocytes Negative Negative Strip Lot Number [id number] Exp. Date 08/15/19 Current Outpatient Prescriptions: ??? ascorbic acid, vitamin C, (VITAMIN C) 500 MG tablet, Take 500 mg by mouth every morning., Disp: , Rfl: ??? atorvastatin (LIPITOR) 20 MG tablet, Take 1 tablet (20 mg total) by mouth daily., Disp: 90 tablet, Rfl: 5 ??? clopidogrel (PLAVIX) 75 mg tablet *ANTIPLATELET*, Take 1 tablet (75 mg total) by mouth daily., Disp: 30 tablet, Rfl: 2 ??? DEXT 70/POLYCARBOPHIL/PEG/NACL (ARTIFICIAL TEAR SOLUTION OPHT), Place 1 drop into both eyes as needed., Disp: , Rfl: ??? donepezil (ARICEPT) 10 MG tablet, Take 10 mg by mouth daily., Disp: , Rfl: ??? flecainide (TAMBOCOR) 100 MG tablet, take 1 tablet by mouth twice a day, Disp: 60 tablet, Rfl: 5 ??? fluticasone (FLONASE) 50 mcg/actuation nasal spray, 2 sprays by Each Nare route daily. , Disp: ,Rfl: ??? loratadine (CLARITIN) 5 mg chewable tablet, Take 5 mg by mouth daily., Disp: , Rfl: ??? memantine 28 mg CSpX, Take 28 mg by mouth daily., Disp: , Rfl: ??? metFORMIN (GLUCOPHAGE) 500 MG tablet, Take 1 tablet (500 mg total) by mouth 2 times daily with meals., Disp: 180 tablet, Rfl: 5 ??? metoPROLOL succinate (TOPROL-XL) 50 MG 24 hr tablet, take 1 tablet by mouth once daily, Disp: 180 tablet, Rfl: 5 ??? multivitamin capsule, Take 1 capsule by mouth daily., Disp: , Rfl: ??? triamcinolone (KENALOG) 0.1 % cream, 1 application to affected areas BID PRN, Disp: 80 g, Rfl: 3 Allergies Allergen Reactions ??? Morphine Anaphylaxis (ALLERGY) ??? Sulfamethoxazole Anaphylaxis (ALLERGY) ??? Sulfasalazine Itching / Pruritis (ALLERGY/intolerance) ??? Codeine Phosphate Urticaria / Hives (ALLERGY) ??? Pollen Extracts Other (See Comments) Runny nose Past Medical History: Diagnosis Date ??? Acute [...] (Right L2-5); Surgeon: Petr Brito MD; Location: [facility]; Service: Rehab Medicine; Laterality: N/A; ??? LUMBAR / THORACIC MEDIAL BRANCH BLOCK Right 08/15/2017 Procedure: LUMBAR/THORACIC MEDIAL BRANCH BLOCK - Right L2-L5; Surgeon: Neptali Toledo MD; Location: [address] [facility]; Service: Anes Physiatry; Laterality: Right; [...] Grandfather ??? Stroke Neg Hx Social History Social History ??? Marital status: [...] History Narrative ??? No narrative on file There were no vitals filed for this visit. There is no height or weight on file to calculate BMI. ROS Constitutional: Patient denies any unintentional weight loss or change in strength Integumentary: Patient denies any rashes or pruritus Eyes: Patient denies double vision or eye pain Ears/Nose/Mouth/Throat: Patient denies any nosebleeds or gum bleeding Cardiovascular: Patient denies chest pain or syncope Respiratory: Patient denies hemoptysis Gastrointestinal: Patient denies nausea, vomiting, constipation, or diarrhea Musculoskeletal: Patient denies muscle cramps or weakness Neurologic: Patient denies convulsions or seizures Psychiatric: Patient denies hallucinations or suicidal ideations Alleric/Immunologic: Patient denies food allergies Hematologic/Lymphatic: Patient denies bleeding tendencies Endocrine: Patient denies heat/cold intolerance Genitourinary: As per HPI. Physical Exam Constitutional: No obvious distress Eyes: EOMI Ears/Nose/Mouth/Throat: No obvious drainage per ears or nose Cardiovascular: Pulse regular Respiratory: No audible wheezing/stridor; respirations do not appear labored Gastrointestinal: Abdomen not distended Musculoskeletal: Normal ROM of UEs Skin: No obvious rashes/open sores Neurologic: CN 2-12 grossly intact Psychiatric: Answered questions appropriately w/normal affect Hematologic/Lymphatic/Immunologic: No obvious bruises or sites of spontaneous bleeding Genitourinary: No CVA tenderness, bladder not palpable. Data Review as noted. Assessment/Plan : History of Chronic prostatitis History of recurrent nephrolithiasis He is asymptomatic at this time. He reports he has never had a work-up for his stones before. DAVID for evaluation of recurrent nephrolithiasis and recurrent prostatitis/UTI We discussed the following measures to prevent the recurrence of stones: 1. Increase water intake to 2-2.5 liters per day 2. May add citrus juice (lemon, prairie band or orange juice) to water 3. Moderation in dairy foods 4. Decrease in salt content 5. Low Oxalate diet: Oxylates are found in foods like Tomato, Spinach, red wine and chocolate Follow in 6 months Should he obtain stone he will bring it in for analysis No diagnosis found. There are no Patient Instructions on file for this visit. No Follow-up on file. Mindy Aaron NP Electronically signed by: Mindy Aaron NP 09/13/18 1578 documented in this encounter Plan of Treatment Not on filedocumented as of this encounter Procedures Procedure Name Priority Date/Time Associated Diagnosis Comme nts POCT URINE DIPSTICK Routine 09/13/2018 1:40 PM Dysuria Re sults for this MANUAL NO SCOPE EDT procedure ar e in the results [...] hepatomegaly. Mindy Aaron RN IMG DIAGNOSTIC IMAGING [facility] US URINARY SYSTEM/RENAL (09/17/2018 1:52 PM EDT) [...] calcifications. Mindy Aaron RN IMG US ORDERABLES (ABNORMAL) POCT Urine Dipstick Manual No Scope (09/13/2018 1:40 PM EDT) [facility] Method Time Signature POC Urine Color gold Yellow [facility] POC Urine clear Clear [facility] Appearance [facility]IN[facility] POC Urine Negative Negative [facility] Glucose mg/dL [facility]INIC LAB POC Urine Negative Negative [facility] Bilirubin [facility] POC Urine Negative Negative [facility] Ketones mg/dL [facility]INIC LAB POC Urine 1.030 (A) 1.005 - [facility] Specific [place] 1.025 CLINIC LAB POC Urine Blood Negative Negative [facility] POC Urine pH 5.0 4.6 - 8.0 [facility] Dipstick [facility]INIC LAB POC Urine Negative Negative [facility] Protein mg/dL [facility]INIC LAB POC Urobilinogen 0.2 0.2 - 1 [facility] mg/dL [facility]IN[facility] LAB POC Urine Negative Negative [facility] Nitrite [facility] POC Urine Negative Negative [facility] Leukocytes [facility] Strip Lot Number [id number] [facility] Exp. Date 08/15/19 [facility] Specimen (Source) Anatomical Collection Method Collection Time Re ceived Time Location / / Volume Laterality Urine specimen 09/13/2018 1:40 PM (specimen) EDT Mindy Aaron RN POINT OF CARE TEST ORDERABL ES Performing Organization Address City/State/ZIP Code Phon e Number [facility] CLIA# [id number] [place] [address] [facility] CLIA ID# [id number] [place] [id number], [address] [facility] documented in this encounter Visit Diagnoses Diagnosis Recurrent nephrolithiasis - Primary Prostatitis, chronic Chronic prostatitis Dysuria Recurrent nephrolithiasis Recurrent nephrolithiasis documented in this encounter Care Teams Relay Associate Relationship Specialty Start Date End Date Neal Breen MD PCP - General Family Medicine 07/31/18 07/14/[address] [place] [id number] documented as of this encounter
--- OUTSIDE RECORDS SUMMARY | 2021-11-30 11:49 | XMS_ITS | Encounter Summary ---
:1955 Author Organization [facility] [place] [address] Care Team Providers Name Role Phone Unavailable Primary Care Provider Unavailable Reason for Visit Reason Onset Date Comments Prior Authorization 05/21/2018 Synvisc (Series of 3 ) - No PA Required Encounter Details Date Type Department Care Team Description 05/21/2018 Telephone Pharmacy Heather Sheridan Prior Authorization [facility] Melody Isbell (Synvisc (Series of 3) - [facility] No PA Required) [facility] [address] [place], [place] [phone] Social History Tobacco Use Types Packs/Day Years [...] this encounter Miscellaneous Notes Telephone Encounter - Heather Isbell Fatimah, [facility] - 05/23/2018 8:52 AM EST Images from the original note were not included. Synvisc (Series of 3) - No PA Required: Patient is ready to schedule. [facility] received Benefits Verification results for Synvisc series of 3, for right knee from TAQUERIA Murray. It was determined that a Prior Authorization IS NOT required Benefits Verification results are: Requirements ??? It is the responsibility of the healthcare provider to verify both Medical Policy requirements have been met, and any prior viscosupplement treatment. Billing information: ??? Primary Claim Mailing Address is [facility] Mail Code: DL-921 [address] [place] [address]./Secondary claim must be directly cross over from Medicare and Electronic payer ID is [id number]. ??? Primary timely filing limit is 1 year from the date of service./Secondary Timely filing is 180 days from re-met date from Medicare. Call Information: ??? Verified primary Medicare benefits by speaking with Christie Disla (Medicare - [phone]) on 05/21/2018 Credentials used , PTAN: [id number], TAX ID: [id number], Call reference # [id number]./Secondary Benefits Information Obtained by Speaking with Priscilla Hernandez at [facility] ([phone]) in the benefits dept on 05/21/2018, Call reference # [id number]. NT*O ??? Secondary authorization Information Obtained by Speaking with Mariah Bah at ([phone]) in the authorization dept on 05/21/2018, Call reference # [id number]. NT*O Heather Sheridan CPhT, [facility] Electronically signed by: Heather Sheridan CPhT 05/23/18 0854 Telephone Encounter - Heather Sheridan CPhT - 05/21/2018 8:38 AM EST Synvisc (Series of 3) - Benefits Verification Submitted [facility] received a Benefits Verification request for Synvisc series of 3, for right knee from TAQUERIA Murray. The Benefits Verification was submitted to [employer] web portal on 05/21/18. Heather Sheridan CPhT, [facility] Electronically signed by: Heather Sheridan CPhT 05/21/18 0838 documented in this encounter Plan of Treatment Not on filedocumented as of this encounter Visit Diagnoses Not on filedocumented in this encounter
--- OUTSIDE RECORDS SUMMARY | 2021-11-30 11:49 | XMS_ITS | Encounter Summary ---
:1955 Author Organization [facility] [place] [address] Care Team Providers Name Role Phone Unavailable Primary Care Provider Unavailable Reason for Referral Medication (Routine) - Closed Specialty Diagnoses / Procedures Referred By Contact Refer red To Contact Pharmacy Diagnoses Primary osteoarthritis of right knee Nasir Vega PA-C [facility] [address] [address] [address] [place] [address] Phone: Referral ID Status Reason Start Expiration Visits Visits Date Date Requested Authorized [id number] Closed Medication 05/17/2018 05/17/2019 3 3 authorization Scheduling Instructions Please indicate: Start of treatment: Sta rt Date 05/18/18 Patient Name: Dario Mckeon [place] Ph one: Gender: male Cell : 1955 Work Phone: Address: [place] [id number] Product Information: Synvisc Patient Diagnosis: M17.11 (Unilateral primary osteoarthriti s, right knee) Clinical Information: In which joint will the viscosupplement be used? right knee Has the patient had any sodium hyalurona te drug treatment in the past? Yes - Has it been less than six months since the last sodium hyaluronate injection in the SAME knee? No Date of last injection from prior series : Viscosupplement Injections Musculoskeletal Therapy Agent - Viscosu pplements Disp Start End hylan (SYNVISC) injection 16 mg 7 06/09/2016 Sig - Route: Inject 2 mLs (16 mg total) into the articular space once a week. - Intra-articular hylan (SYNVISC) injection 16 mg 7 06/09/2016 Sig - Route: Inject 2 mLs (16 mg total) into the articular space once a week. - Intra-articular hylan (SYNVISC) injection 16 mg 7 06/16/2016 Sig - Route: Inject 2 mLs (16 mg total) into the articular space once a week. - Intra-articular hylan (SYNVISC) injection 16 mg 7 06/16/2016 Sig - Route: Inject 2 mLs (16 mg total) into the articular space once a week. - Intra-articular hylan (SYNVISC) injection 16 mg 06/02/19 17 06/02/2016 Sig - Route: Inject 2 mLs (16 mg total) into the articular space once. - Intra-articular hylan (SYNVISC) injection 16 mg 06/02/19 17 06/02/2016 Sig - Route: Inject 2 mLs (16 mg total) into the articular space once. - Intra-articular hylan (SYNVISC) injection 16 mg 03/17/20 17 04/07/2017 Sig - Route: Inject 2 mLs (16 mg total) into the articular space once a week. - Intra-articular hylan (SYNVISC) injection 16 mg 03/24/20 17 04/14/2017 Sig - Route: Inject 2 mLs (16 mg total) into the articular space once a week. - Intra-articular hylan (SYNVISC) injection 16 mg 017 04/21/2017 Sig - Route: Inject 2 mLs (16 mg total) into the articular space once a week. - Intra-articular hylan (SYNVISC) injection 16 mg 11/04/19 18 11/24/2017 Sig - Route: Inject 2 mLs (16 mg total) into the articular space once a week. - Intra-articular hylan (SYNVISC) injection 16 mg 11/11/19 18 12/01/2017 Sig - Route: Inject 2 mLs (16 mg total) into the articular space once a week. - Intra-articular hylan (SYNVISC) injection 16 mg 8 12/08/2017 Sig - Route: Inject 2 mLs (16 mg total) into the articular space once a week. - Intra-articular What knee was treated: right Was an NSAID used prior to Synvisc? Yes - (date): 05/14/18 Was a steroid used prior to Synvisc? Yes - (date): 11/16/17 Allergies: -- Morphine -- Anaphylaxis (A LLERGY) -- Sulfamethoxazole -- Anaphylaxis (ALL ERGY) -- Sulfasalazine -- Itching / Pruritis (ALLERGY/intolerance) -- Pollen Extracts -- Other (See Commen ts) -- Runny nose [employer] insurance? No Electronically signed by: Radha Barrett CMA 05/17/2018 11:12 AM Reason for Visit Reason Onset Date Comments Gary - synvisc 05/14/2018 Encounter Details Date Type Department Care Team Description 05/14/2018 Telephone Orthopaedics - Nasir Abrams PA-C [facility] - synvisc [address] [facility] [address] [facility] [address] [place], [place] [address] [address] [place] [address] [phone] (Wo rk) Social History Tobacco Use Types [...] this encounter Miscellaneous Notes Telephone Encounter - Nasir Vega PA-C - 05/17/2018 11:18 AM EST Reviewed chart and approved viscosupplementation Electronically signed by: Nasir Vega PA-C 05/17/18 1118 Telephone Encounter - Lupis Coleman RN - 05/17/2018 11:02 AM EST Patient called, two patient identifiers confirmed. Explained we will route the order to Nasir Gordon for signature and once approved, his benefits will be verified. Explained it can take up to twoweeks for benefit verification and he should receive a call to schedule once approved. Patient verbalized understanding and has no further needs at this time. Insurance is not in effect until 05/18/18. [address] order for Synvisc after this. Electronically signed by: Lupis Coleman RN 05/17/18 1110 Telephone Encounter - Kalie Foy - 05/17/2018 10:45 AM EST Medicare A&B has been added and will take effect tomorrow and the new BCBS information has been updated Patient was taking Naproxen as prescribed by Mar. Patient states that he last took the medication about 3 days ago Patient states that 11.16.2017 was the last steroid injection Please advise Telephone Encounter - Lupis Coleman RN - 05/17/2018 9:50 AM EST Requesting Synvisc 3 series for right knee. Last Synvisc injection 11/16/17. Last steroid injection 11/16/17. Attempted to call patient. Left generic message for call back. Upon call back, please ask patient if Medicare insurance is Part A, Part B, or Part A&B and update insurance info in chart. Please ask if patient has previously tried an anti-inflammatory and if so, what specific medication and approximately when did he last take it. Please also verify that his last steroid injection was 11/16/17 when he had his last Synvisc injection. Electronically signed by: Lupis Coleman RN 05/17/18 0959 Telephone Encounter - Lane Boggs - 05/16/2018 4:16 PM EST Patient is calling back with his Medicare number ([id number]). It does not become effective until 2..19. Telephone Encounter - Kate Og RN - 05/16/2018 4:06 PM EST Phone call to patient in follow-up. Patient states he will return call to the office to update insurance information. Discussed once insurance information has been updated Synvisc order can be submitted for benefit verification. Telephone Encounter - Rubi Nolasco LPN - 05/14/2018 2:50 PM EST Telephone call to patient. Verified 2 patient identifiers. Patient requesting Synvisc series for right knee. Patient has his new medicare card but was driving so he was unable to give new insurance information. Patient will call back with insurance information. Electronically signed by: Rubi Nolasco LPN 05/14/18 1452 Telephone Encounter - Renetta Leida Simms - 05/14/2018 1:55 PM EST Patient called stated he would like to set up synvisc injections for his right knee, Series of 3. Last injection 8.2.18. Patient stated he would have medicare as of 2.1.19. Please advise. documented in this encounter Plan of Treatment Scheduled Referrals Name Type Priority Associated Diagnoses Order S chedule Viscosupplement Prior Outpatient Routine Primary 1 Occu rrences Authorization Referral osteoarthritis of starting right knee 05/17/2018 unti l 05/17/2019 documented as of this encounter Visit Diagnoses Diagnosis Primary osteoarthritis of right knee - P rimary documented in this encounter
--- OUTSIDE RECORDS SUMMARY | 2021-11-30 11:49 | XMS_ITS | Encounter Summary ---
:1955 Author Organization [facility] [place] [address] Care Team Providers Name Role Phone Neal Breen MD Primary Care Provider [phone] Encounter Details Date Type Department Care Team Description 07/31/2018 Lab Visit Lab Services - Lexin gton Type 2 diabetes mellitus wit h hyperglycemia, without long-term current use of insulin (HCC); [address] [place] [address] Social History Tobacco Use Types Packs/Day [...] Procedure Name Priority Date/Time Associated Comments Diagnosis TRICHOMONAS CULTURE Routine 07/31/2018 2:18 PM Dysuria Re sults for this EDT procedure are i n the results section. GC/CHLAMYDIA AMP Routine 07/31/2018 2:18 PM Dysuria Resul ts for this EDT procedure are i n the results section. LIPID PROFILE Routine 07/31/2018 2:18 PM Type 2 diabetes Resul ts for this EDT mellitus with procedure are in hyperglycemia, the results without long-term section. current use of insulin (HCC) URINE CULTURE Routine 07/31/2018 2:18 PM Dysuria Results for this EDT procedure are i n the results section. HEMOGLOBIN A1C Routine 07/31/2018 2:18 PM Type 2 diabetes Resu lts for this EDT mellitus with procedure are in hyperglycemia, the results without long-term section. current use of insulin ([facility]) COMPREHENSIVE Routine 07/31/2018 2:18 PM Type 2 diabetes Resul ts for this METABOLIC PANEL EDT mellitus with procedure a re in hyperglycemia, the results without long-term section. current use of insulin ([facility]) documented in this encounter Results GC/Chlamydia Amp (07/31/2018 2:18 PM EDT) [facility] Method Time Signature CHLAMYDIA Negative Negative [facility] AM [facility] GC AMPLIFICATION Negative Negative 08/01/2018 [facility] CHLAMYDIA/GC 08/01/2018 [facility] COMMENT 2:24 AM [facility] Comment: INTERPRETATION: A negative result for Ch maritzaia indicates that Chlamydia trachomatis plasmid DNA was [...] DESC Urine 08/01/2018 2:24 AM E DT [facility] PATH[facility] LABS Specimen Anatomical Collection Method Collection Time Receive d Time (Source) Location / / Volume Laterality Other URINE SPECIMEN / 07/31/2018 2:18 PM 07/31 2:55 Unknown EDT PM EDT Neal Breen MD BODY FLUIDS AND STOOLS (NON- MICRO) ORDERABLES Performing Organization Address City/[facility]/ZIP Code Phon e Number [facility] CLIA# [id number] [place] [address] [facility] [place] Trichomonas Culture (07/31/2018 2:18 PM EDT) Patholo gist Method Time Signature Trichomonas Negative for 08/08/2018 [facility] Culture ID Trichomonas, 11:19 AM [facility] days PATHOL LABS Specimen Anatomical Collection Method Collection Time Receive d Time (Source) Location / / Volume Laterality Other PENILE STRUCTURE / 07/31/2018 2:18 PM 2:55 Unknown EDT PM EDT Neal Breen MD MICROBIOLOGY - GENERAL ORDER MASOUD Performing Organization Address City/[facility]/ZIP [facility] Phon e Number [facility] CLIA# [id number] [place] [address] [facility] [place] (ABNORMAL) Urine Culture (07/31/2018 2:18 PM EDT) Component Value Ref Test Method Analysis Performed Patholog ist Range Time At Signature Urine 50,000-100,000 MICRO SEGUNDO 08/03/2018 [facility] culture ID CFU/mL SUSCEPTIBILITY 8:46 AM [facility] Escherichia [facility] INC PATHOL coli (A) LABS [...] SEGUNDO SUSCEPTIBIL ITY >2/38: Resistant zole Neal Breen MD MICROBIOLOGY - GENERAL ORDER MASOUD Performing Organization Address City/State/ZIP Code Phon e Number [facility] CLIA# [id number] [place] [address] PATHOL LABS [facility] [place] (ABNORMAL) Comprehensive Metabolic Panel (07/31/2018 2:18 PM EDT) Analysis Performed At Patho logist Time Signature Sodium 139 136 - 144 07/31/2018 [facility] MMOL/L 3:14 PM EDT [facility] Potassium 4.0 3.5 - 5.1 07/31/2018 [facility] MMOL/L 3:14 PM EDT [facility] Chloride 106 101 - 111 07/31/2018 [facility] MMOL/L 3:14 PM EDT [facility] CO2 25 23 - 30 07/31/2018 [facility] MMOL/L 3:14 PM EDT [facility] Glucose 128 (H) 79 - 115 07/31/2018 [facility] MG/DL 3:14 PM [facility] Creatinine 0.90 0.90 - 07/31/2018 [facility] 1.30 MG/DL 3:14 PM [facility] Calcium 9.1 8.9 - 10.3 07/31/2018 [facility] MG/DL 3:14 PM [facility] Total Protein 7.2 6.5 - 8.1 07/31/2018 [facility] G/DL 3:14 PM [facility] Albumin 3.7 3.5 - 5.0 07/31/2018 [facility] G/DL 3:14 PM [facility] Total Bilirubin 0.6 0.3 - 1.2 07/31/2018 [facility] MG/DL 3:14 PM [facility] Alkaline 90 32 - 91 07/31/2018 [facility] Phosphatase IU/L 3:14 PM [facility] AST (SGOT) 22 15 - 41 07/31/2018 [facility] IU/L 3:14 PM [facility] ALT (SGPT) 27 17 - 63 07/31/2018 [facility] IU/L 3:14 PM [facility] Anion Gap 8 6 - 16 07/31/2018 [facility] MMOL/L 3:14 PM [facility] Est. GFR >=90 >=60 07/31/2018 [facility] Non- ML/MIN/1.7 3:14 PM [facility] 3 M*2 [facility] Comment: GFR estimated by CKD-EPI equations, repo rtable up to 90 ML/MIN/1.73 M*2 Est. GFR >=90 >=60 ML/MIN/1.73 07/31/2018 3: 14 PM [facility] M*2 [facility] Comment: GFR estimated by CKD-EPI equations, repo rtable up to 90 ML/MIN/1.73 M*2 BUN 23.0 8.0 - 26.0 MG/DL 07/31/2018 3:14 PM EDT [facility] Specimen Anatomical Collection Method / Collection Time Recei ericka Time (Source) Location / Volume Laterality Blood specimen Venipuncture / 07/31/2018 2:18 08/01/19 19 2:51 (specimen) Unknown PM EDT PM EDT Neal Breen MD LAB BLOOD ORDERABLES Performing Organization Address [facility] Phon e Number [facility] CLIA# [id number] [place] [address] [facility] [address] [facility] CLIA#[id number] [place] [address] [facility] [address] (ABNORMAL) LIPID PROFILE (07/31/2018 2:18 PM EDT) [facility] Method Time Signature Total Cholesterol 199 <=200 07/31/2018 [facility] MG/DL 3:14 PM EDT [facility] Triglycerides 361 (H) 14 - 150 07/31/2018 [facility] MG/DL 3:14 PM EDT [facility] HDL Cholesterol 29 (L) 40 - 60 07/31/2018 [facility] MG/DL 3:14 PM EDT [facility] LDL Cholesterol 98 0 - 99 07/31/2018 [facility] Calculated MG/DL 3:14 PM EDT [facility] Total Chol / HDL 6.9 07/31/2018 [facility] Cholesterol 3:14 PM EDT [facility] Non-HDL 170 MG/DL 07/31/2018 [facility] Cholesterol 3:14 PM EDT [facility] Specimen Anatomical Collection Method / Collection Time Recei ericka Time (Source) Location / Volume Laterality Blood specimen Venipuncture / 07/31/2018 2:18 08/01/19 19 2:51 (specimen) Unknown PM EDT PM EDT Neal Breen MD LAB BLOOD ORDERABLES Performing Organization Address [facility] Phon e Number [facility] CLIA# [id number] [place] [address] [facility] [address] [facility] CLIA#[id number] [place] [address] [facility] [address] (ABNORMAL) Hemoglobin A1C (07/31/2018 2:18 PM EDT) P athologist Signature HEMOGLOBIN A1C 6.4 (H) <5.7 % 07/31/2018 [facility] 3:11 PM EDT [facility] eAG 137 MG/DL 07/31/2018 [facility] 3:11 PM EDT [facility] eAG Comment 07/31/2018 [facility] 3:11 PM EDT [facility] Comment: The [place] [employer] has supported the use [...] (specimen) Unknown PM EDT PM EDT Neal Breen MD LAB BLOOD ORDERABLES Performing Organization Address City/State/[facility] Code Phon e Number [id number] [address] LAB SERVICES [address] [place], [place] [address]IA#[id number] [place] [address] [facility] [address] [place] [address] documented in this encounter Visit Diagnoses Diagnosis Type 2 diabetes mellitus with hyperglyce jackelyn, without long-term current use of insulin (HCC) Dysuria documented in this encounter Care Teams Boulevard Glassware Replacer Relationship Specialty Start Date End Date Neal Breen MD PCP - General Family Medicine 07/31/18 07/14/21 [address] [place] [address] documented as of this encounter
--- OUTSIDE RECORDS SUMMARY | 2021-11-30 11:49 | XMS_ITS | Encounter Summary ---
:1955 Author Organization [facility] [place] [address] Care Team Providers Name Role Phone Chetna Loredo Primary Care Provider Unavailable Encounter Details Date Type Department Care Team Description 01/10/2018 Hospital Encounter Diagnostic Imaging - Destini Hargrove, Jennifer [facility] [address] [place] [address] RO[address] [phone] [place] [address] (Wo rk) Social History Tobacco Use Types [...] Sig Dispensed Refills Start Date End Date ascorbic acid, vitamin C, Take 500 mg [...] SOLUTION needed. OPHT) flecainide (TAMBOCOR) 100 Take 100 mg by 0 04/26/2018 MG tablet mouth every 12 hours. fluticasone (FLONASE) 50 2 sprays by Each 0 08/2104/04/2019 mcg/actuation nasal spray Nare route daily as needed. metFORMIN (GLUCOPHAGE) 500 Take 500 mg by 0 08/0307/31/2018 MG tablet mouth 2 times daily with meals. metoPROLOL succinate Take 1 tablet (25 90 tablet 3 09/01/19 18 04/09/2018 (TOPROL-XL) 25 MG 24 hr mg total) by mouth tablet daily. multivitamin capsule Take 1 capsule by 0 03/01/2021 mouth daily. naproxen (NAPROSYN) 500 MG Take 1 tablet (500 60 tablet 1 0 06/30/2017 03/06/2018 tablet mg total) by mouth 2 times daily. documented as of this encounter Plan of Treatment Not on filedocumented as of this encounter Procedures Procedure Name Priority Date/Time Associated Diagnosis Comme nts XR SHOULDER LT 2 OR Routine 01/10/2018 1:14 PM Acute pain of l eft Results for this MORE VIEWS EDT shoulder procedure are i n the results section. documented in this encounter Results XR SHOULDER LT 2 OR MORE VIEWS AP (01/10/2018 1:14 PM EDT) Anatomical Region Laterality Modality Digital Radiography Specimen (Source) Anatomical Collection Method Collection Time Re ceived Time Location / / Volume Laterality 01/10/2018 1:15 PM EDT Impressions 01/10/2018 1:15 PM EDT 1. ??No acute fracture or malalignment. 2. ??Joint spaces are maintained. 3. ??Further imaging assessment could be made by shoulder MRI. Narrative 01/10/2018 1:15 PM EDT X-RAY LEFT SHOULDER (2+ VIEWS), 01/10/2018 1:14 PM INDICATION: Acute pain of left shoulder \ \ M25.512 Acute pain of left shoulder COMPARISON: None. Procedure Note Benjamin Ceron MD - 01/10/2018Format ting of this note might be different from the original. X-RAY LEFT SHOULDER (2+ VIEWS), 8 1:14 PM INDICATION: Acute pain of left shoulder \ \ M25.512 Acute pain of left shoulder COMPARISON: None. CONCLUSION: 1. No acute fracture or malalignment. 2. Joint spaces are maintained. 3. Further imaging assessment could be m stanislaw by shoulder MRI. Destini DILLONP IMG DIAGNOSTIC IMAGING ORDER MASOUD documented in this encounter Visit Diagnoses Diagnosis Acute pain of left shoulder documented in this encounter Care Teams Manufacturing Engineer Assembly Relationship Specialty Start Date End Date Chetna Loredo PCP - General Family Medicine 05/19/16 04/13/18 documented as of this encounter
--- OUTSIDE RECORDS SUMMARY | 2021-11-30 11:49 | XMS_ITS | Encounter Summary ---
:1955 Author Organization [facility] [place] [address] Care Team Providers Name Role Phone Neal Breen MD Primary Care Provider [phone] Reason for Referral MRI/CAT Scan (Routine) - Closed Specialty Diagnoses / Procedures Referred By Contact Refer red To Contact Radiology Diagnoses Subacute intracranial hemorrhage (HCC) Tr Sher Jr., MD Procedures MR BRAIN W & WO CONTRAST [address] [address] Referral ID Status Reason Start Date Expiration Date Visits Requ ested Visits Authorized [id number] Closed 08/22/2018 10/23/2019 1 1 Reason for Visit MRI/CAT Scan (Routine) - Closed Specialty Diagnoses / Procedures Referred By Contact Refer red To Contact Radiology Diagnoses Subacute intracranial hemorrhage (HCC) Tr Sher Jr., MD Procedures MR BRAIN W & WO CONTRAST [address] [facility] [address] [place], [place] [address] Referral ID Status Reason Start Date Expiration Date Visits Requ ested Visits Authorized [id number] Closed 08/22/2018 10/23/2019 1 1 Encounter Details Date Type Department Care Team Description 09/09/2018 Hospital Encounter MRI Outpatient Imaging Tr Sher - Executive Chely Tineo MD [address] [place] [address] [address] [place], [place] [address] [address] [place], [place] [phone] (Wo rk) Social History Tobacco Use Types [...] (VITAMIN C) 500 MG every morning. tablet atorvastatin (LIPITOR) Take 1 tablet (20 mg [...] Diagnosis Comme nts MR BRAIN WWO Routine 09/09/2018 11:56 Subacute intracranial Re sults for this CONTRAST AM EDT hemorrhage (HCC) procedure a re in the results section. documented in this encounter Results MR BRAIN W & WO CONTRAST (09/09/2018 11:56 AM EDT) Anatomical Region Laterality Modality Head Magnetic Resonance Specimen (Source) Anatomical Collection Method Collection Time Re ceived Time Location / / Volume Laterality 09/11/2018 9:43 AM EDT Impressions 09/11/2018 2:14 PM EDT 1. ??No acute intracranial abnormality. 2. ??Sequela of remote right frontal lob e intracranial hemorrhage and findings consistent with amyloid angiopathy. Narrative 09/11/2018 2:14 PM EDT MRI BRAIN WITH AND WITHOUT CONTRAST, 09/09/2018 11:56 AM INDICATION: ??\ I62.9 Subacute intracran ial hemorrhage (HCC) COMPARISON: MRI brain dated 07/06/2018, 05/24/2017, and 03/04/2018. TECHNIQUE: Multiplanar, multi-sequence M R imaging of the entire brain was performed before and after intravenous administration of gadolinium-based contrast. FINDINGS: Calvarium/skull base: No focal marrow re placing lesion suggestive of neoplasm. Orbits: No focal mass. Paranasal sinuses: No air-fluid levels o r substantial mucosal disease. Brain: No evidence of acute abnormality. Redemonstrated sequelae of the now remote right frontal lobe interparenchymal hematoma with a 20 x 26 mm region of encephalomalacia and volume loss in the right frontal lobe. Similar curvilinear enhanc ement along the margin of the primary hematoma without evidence of masslike enhancement. No evidence of acute hemorrhage. Of note, the multiple foci of susceptibi lity artifact demonstrated on the prior MRI exams are less conspicuous in this exam secondary to decreased sensitivity of the GRE sequence compared with SWAN, particularly with a short TE (5.5 in this study). No evidence of acute infarct. Similar b ackground of scattered periventricular and subcortical white matter T2/FLAIR hyperintensity which is nonspecific but consistent with chronic microvascular ischemi a. Grossly normal flow-related signal in the major intracranial arteries and dural sinuses. ? Procedure Note Vasquez Nair MD - 09/11/2018Form atting of this note might be different from the original. MRI BRAIN WITH AND WITHOUT CONTRAST, 08/16 11:56 AM INDICATION: \ I62.9 Subacute intracrania l hemorrhage (HCC) COMPARISON: MRI brain dated 07/06/2018, 05/24/2017, and 03/04/2018. TECHNIQUE: Multiplanar, multi-sequence M R imaging of the entire brain was performed before and after intravenous administration of gadolinium-based contrast. FINDINGS: Calvarium/skull base: No focal marrow re placing lesion suggestive of neoplasm. Orbits: No focal mass. Paranasal sinuses: No air-fluid levels o r substantial mucosal disease. Brain: No evidence of acute abnormality. Redemonstrated sequelae of the now remote right frontal lobe interparenchymal hematoma with a 20 x 26 mm region of encephalomalacia and volume loss in the right frontal lobe. Similar curvilinear enhancement along th e margin of the primary hematoma without evidence of masslike enhancement. No evidence of acute hemorrhage. Of note, the multiple foci of susceptibility artifact demonstrated on the prior MRI exams are less conspicuous in this exam secondary to decreased sensitivity of the GRE sequence compared with SWAN, particularly with a short TE (5.5 in this study). No evidence of acute infarct. Similar b ackground of scattered periventricular and subcortical white matter T2/FLAIR hyperintensity which is nonspecific but consistent with chronic microvascular ischemia. Grossly normal flow-related signal in the major intracranial arteries and dural sinuses. CONCLUSION: 1. No acute intracranial abnormality. 2. Sequela of remote right frontal lobe intracranial hemorrhage and findings consistent with amyloid angiopathy. Tr Sher Jr., MD IMG MRI ORDERABLES documented in this encounter Visit Diagnoses Diagnosis Subacute intracranial hemorrhage (HCC) documented in this encounter Care Teams Outdoor Landscape Architect Relationship Specialty Start Date End Date Neal Breen MD PCP - General Family Medicine 07/31/18 07/14/[address] [place] [id number] documented as of this encounter
--- OUTSIDE RECORDS SUMMARY | 2021-11-30 11:49 | XMS_ITS | Encounter Summary ---
:1955 Author Organization [facility] [place] [address] Care Team Providers Name Role Phone Chetna Loredo Primary Care Provider Unavailable Reason for Referral MRI/CAT Scan (Routine) - Closed Specialty Diagnoses / Procedures Referred By Contact Refer red To Contact Radiology Diagnoses Subacute intracerebral hemorrhage (HCC) Tr Sher Jr., MD Procedures MR BRAIN W & WO CONTRAST [address] [facility] [address] [place] [phone] Referral ID Status Reason Start Date Expiration Date Visits Requ ested Visits Authorized [id number] Closed 03/16/2018 05/16/2019 1 1 Reason for Visit MRI/CAT Scan (Routine) - Closed Specialty Diagnoses / Procedures Referred By Contact Refer red To Contact Radiology Diagnoses Subacute intracerebral hemorrhage (HCC) Tr Sher Jr., MD Procedures MR BRAIN W & WO CONTRAST [address] [facility] [address] [place], [place] [address] Referral ID Status Reason Start Date Expiration Date Visits Requ ested Visits Authorized [id number] Closed 03/16/2018 05/16/2019 1 1 Encounter Details Date Type Department Care Team Description 03/23/2018 Hospital Encounter MRI Outpatient Imaging Tr Sher - Executive Chely Tineo MD [facility] [place] [address] [place], [place] [address] [address] [place], [place] [phone] (Wo rk) Social History Tobacco Use Types [...] Diagnosis Comme nts MR BRAIN WWO Routine 03/23/2018 8:59 PM Subacute intracerebral Results for this CONTRAST EST hemorrhage (HCC) procedure a re in the results section. documented in this encounter Results MR BRAIN W & WO CONTRAST (03/23/2018 8:59 PM EST) Anatomical Region Laterality Modality Head Magnetic Resonance Specimen (Source) Anatomical Collection Method Collection Time Re ceived Time Location / / Volume Laterality 03/24/2018 11:24 AM EST Impressions 03/24/2018 11:54 AM EST 1. ??Evolving intraparenchymal hematoma in the right frontal lobe which has mildly retracted in the interval with decreased local mass effect. No appreciable associated enhancement to suggest an underly ing mass. Given the presence of numerous remote microhemorrhages in the cerebral hemispheres bilaterally, this hemorrhage may be sequela of cerebral amyloid angiopathy. 2. ?? 3. ??Possible punctate focus of cortical restricted diffusion along the left frontal convexity may reflect a tiny acute or subacute infarct. 4. ??No new areas of hemorrhage. Narrative 03/24/2018 11:54 AM EST MRI BRAIN WITH AND WITHOUT CONTRAST, 03/23/2018 8:59 PM INDICATION: ??\ I61.9 Subacute intracere bral hemorrhage (HCC) COMPARISON: MRI 03/04/2018 TECHNIQUE: Multiplanar, multi-sequence M R imaging of the entire brain was performed before and after intravenous administration of gadolinium-based contrast. FINDINGS: Calvarium/skull base: No focal marrow re placing lesion suggestive of neoplasm. Orbits: Grossly unremarkable. Paranasal sinuses: Imaged portions clear . Brain: Evolving right frontal lobe intra parenchymal hematoma measuring 3.8 x 4.2 cm which is slightly retracted in the interval. Decreased mass effect on the right lateral ventricle. No new areas of hem orrhage. No appreciable enhancement. Num erous foci of susceptibility artifact again noted in the cerebral hemispheres bilaterally compatible with remote hemorrhages. Cerebral volume loss. Patchy T2/FLAI R signal hyperintensities in the cerebra l white matter likely reflecting chronic microvascular ischemic changes (leukoaraiosis). No hydrocephalus. Punctate focus of signal hyperintensity on diffusion-we ighted sequence along the left frontal l obe cortex (reference image #20, series #4) is equivocal on ADC map. Grossly normal flow-related signal in the major intracranial arteries and dural sinuses. Procedure Note Vasquez Nair MD - 03/24/2018Form atting of this note might be different from the original. MRI BRAIN WITH AND WITHOUT CONTRAST, 03/23/2018 8:59 PM INDICATION: \ I61.9 Subacute intracerebr al hemorrhage (HCC) COMPARISON: MRI 03/04/2018 TECHNIQUE: Multiplanar, multi-sequence M R imaging of the entire brain was performed before and after intravenous administration of gadolinium-based contrast. FINDINGS: Calvarium/skull base: No focal marrow re placing lesion suggestive of neoplasm. Orbits: Grossly unremarkable. Paranasal sinuses: Imaged portions clear . Brain: Evolving right frontal lobe intra parenchymal hematoma measuring 3.8 x 4.2 cm which is slightly retracted in the interval. Decreased mass effect on the right lateral ventricle. No new areas of hemorrhage. No appreciable enhancement. Numerous foci o f susceptibility artifact again noted in the cerebral hemispheres bilaterally compatible with remote hemorrhages. Cerebral volume loss. Patchy T2/FLAIR signal hyperintensities in the cerebral white matter likely refl ecting chronic microvascular ischemic changes (leukoaraiosis). No hydrocephalus. Punctate focus of signal hyperintensity on diffusion-weighted sequence along the left frontal lobe cortex (reference image #20 , series #4) is equivocal on ADC map. Grossly normal flow-related signal in the major intracranial arteries and dural sinuses. CONCLUSION: 1. Evolving intraparenchymal hematoma in the right frontal lobe which has mildly retracted in the interval with decreased local mass effect. No appreciable associated enhancement to suggest an underlying mass. Given the presence of numerous remote microhem orrhages in the cerebral hemispheres bilaterally, this hemorrhage may be sequela of cerebral amyloid angiopathy. 2. 3. Possible punctate focus of cortical r estricted diffusion along the left frontal convexity may reflect a tiny acute or subacute infarct. 4. No new areas of hemorrhage. Tr Sher Jr., MD IMG MRI ORDERABLES documented in this encounter Visit Diagnoses Diagnosis Subacute intracerebral hemorrhage (HCC) documented in this encounter Care Teams Automation Driver Relationship Specialty Start Date End Date Chetna Loredo PCP - General Family Medicine 05/19/16 04/13/18 documented as of this encounter
--- OUTSIDE RECORDS SUMMARY | 2021-11-30 11:49 | XMS_ITS | Encounter Summary ---
:1955 Author Organization [facility] [place] [address] Care Team Providers Name Role Phone Neal Breen MD Primary Care Provider [phone] Reason for Referral Diagnostic X-Ray (Routine) - Closed Specialty Diagnoses / Procedures Referred By Contact Refer red To Contact Radiology Diagnoses Acute cystitis with hematuria Niyah Corley [facility] Ultrasound Imaging Procedures US URINARY SYSTEM/RENAL DEBBIE [address] [place] [address] [place] [address] [place] [address] Referral ID Status Reason Start Date Expiration Date Visits Requ ested Visits Authorized [id number] Closed 01/03/2019 02/06/2019 1 1 Reason for Visit Reason Comments Back Pain DARK URINE With odor x 10 days Encounter Details Date Type Department Care Team Description 01/03/2019 Return Patient [facility] Niyah Corley Ab normal urine odor (Primary Dx); [facility] Family Ashli PA-C Type 2 diabetes mellitus with hyperglyce jackelyn, without long-term current use of insulin (HCC); [address] Chronic bilateral low back p ain without sciatica; [facility] Urinary urgency; [place], [place] History of kidney stones; [place] [address] Acute cystitis with hematuria; [id number] Other specified hypotension; Chronic diarrhea Social History Tobacco Use Types Packs/Day Years Used Date Former Smoker Cigarettes Quit: 12/31/19 89 Smokeless Tobacco: Never Used Alcohol Use [...] Sign Reading Time Taken Comments Blood Pressure 98/67 01/03/2019 2:14 PM EDT Pulse 62 01/03/2019 2:14 PM EDT Temperature 36.9 ??C (98.4 ??F) 01/03/2019 2:14 PM EDT Respiratory Rate 20 01/03/2019 2:14 PM EDT Oxygen Saturation 97% 01/03/2019 2:14 PM EDT Inhaled Oxygen Concentration - - Weight 107 kg (236 lb) 01/03/2019 2:14 PM EDT Height 177.8 cm (5' 10) 01/03/2019 2:14 PM EDT Body Mass Index 33.86 01/03/2019 2:14 PM EDT documented in this [...] documented as of this encounter Progress Notes Niyah Corley PA-C - 01/03/2019 2:00 PM EDT Images from the original note were not included. [address] [address] Date of Service: 01/03/2019 Patient Name: Dario Mckeon Patient : 1955 Subjective: Patient c/o low back pain Pt c/o chronic diarrhea Pt here with low blood pressure HPI: 1. Patient presents today with c/o low back pain Location: Low back Duration: 10 days Quality: Aching, cramping, pressure, with sudden onset Timing: Constant Severity: Moderate Relieved by: Nothing Worsened by: Movement, urination Ineffective treatments: Has tried no interventions Associated symptoms: Weak urine stream, urinary frequency and urgency, dark colored urine, urine odor Context: Patient reports a PMH of kidney stones. He is concerned that he may have developed another one. He is also concerned that he is developing issues with his prostate. He states he has never had his prostate checked and he does not have an up to date PSA. 2. Patient presents today with c/o chronic diarrhea He states that it occurs 2-3 times per day, sometimes more. He reports he spoke with his neurologist about it b/c he was concerned it may be due to his Topamax He states they continued the Topamax however but stopped his Namenda He is currently taking Metformin IR BID His reports that he continues to drink a lot of soda and eat a lot of sugar and carbs His most recent A1c was at goal 07/31/2018 ??3:11 PM Component Value Ref Range & Units Status Lab HEMOGLOBIN A1C 6.4High <5.7 % Final C Lab Allergies Allergies Allergen Reactions ??? Morphine Anaphylaxis (ALLERGY) ??? Sulfamethoxazole Anaphylaxis (ALLERGY) ??? Sulfasalazine Itching / Pruritis (ALLERGY/intolerance) ??? Codeine Phosphate Urticaria / Hives (ALLERGY) ??? Pollen Extracts Other (See Comments) Runny nose Medications Current Outpatient Medications Medication Sig Dispense Refill ??? ascorbic acid, vitamin C, (VITAMIN C) 500 MG tablet Take 500 mg by mouth every morning. ??? atorvastatin (LIPITOR) 40 MG tablet Take 1 tablet (40 mg total) by mouth daily. 90 tablet 5 ??? DEXT 70/POLYCARBOPHIL/PEG/NACL (ARTIFICIAL TEAR SOLUTION OPHT) Place 1 drop into both eyes as needed. ??? donepezil (ARICEPT) 10 MG tablet Take 10 mg by mouth daily. ??? flecainide (TAMBOCOR) 100 MG tablet TAKE 1 TABLET BY MOUTH TWICE A DAY 60 tablet 0 ??? loratadine (CLARITIN) 5 mg chewable tablet Take 5 mg by mouth daily. ??? memantine 28 mg CSpX Take 28 mg by mouth daily. ??? metoPROLOL succinate (TOPROL-XL) 50 MG 24 hr tablet TAKE 1 TABLET BY MOUTH ONCE DAILY 30 tablet 3 ??? multivitamin capsule Take 1 capsule by mouth daily. ??? topiramate (TOPAMAX) 100 MG tablet Take 100 mg by mouth 2 times daily. ??? triamcinolone (KENALOG) 0.1 % cream 1 application to affected areas BID PRN 80 g 3 ??? ciprofloxacin HCl (CIPRO) 500 MG tablet Take 1 tablet (500 mg total) by mouth 2 times daily for 10 days. 20 tablet 0 ??? fluticasone (FLONASE) 50 mcg/actuation nasal spray 2 sprays by Each Nare route daily. ??? metFORMIN ER (GLUCOPHAGE-XR) 500 MG extended release tablet Take 1 tablet (500 mg total) by mouth 2 times daily with meals. 60 tablet 5 No current facility-administered medications for this visit. Medical history Past Medical History: Diagnosis Date ??? Acute CVA (cerebrovascular accident) (HCC) 09/16/2017 ??? Arthritis ??? 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 Diabetes mellitus (HCC) ??? Hyperlipemia ??? Hypertension ??? Ruptured appendix ??? Tachycardia Surgical History Past Surgical History: Procedure Laterality Date ??? APPENDECTOMY ??? JOINT REPLACEMENT left knee replacement ??? LUMBAR / THORACIC MEDIAL BRANCH BLOCK N/A 08/02/2017 Procedure: LUMBAR/THORACIC MEDIAL BRANCH BLOCK (Right L2-5); Surgeon: Petr Brito MD; Location: [facility]; Service: Rehab Medicine; Laterality: N/A; ??? LUMBAR / THORACIC MEDIAL BRANCH BLOCK Right 08/15/2017 Procedure: LUMBAR/THORACIC MEDIAL BRANCH BLOCK - Right L2-L5; Surgeon: Neptali Toledo MD; Location: [id number] [place] [address] PAIN CLINIC; Service: [facility] Physiatry; Laterality: Right; ??? ROBOTIC YOUSIF UNICOMPARTMENTAL KNEE REPLACEMENT Left 11/01/2016 Procedure: MEDIAL YOUSIF - UNICOMPARTMENTAL KNEE REPLACEMENT - ROBOTIC; Surgeon: Miguelito Manuel MD; Location: OUTPATIENT OR; Service: Orthopedics; Laterality: Left; ??? SKIN BIOPSY Social History Social History Tobacco Use Smoking Status Former Smoker ??? Types: Cigarettes ??? Last attempt to quit: 04/16/1989 ??? Years since quittin.7 Smokeless Tobacco Never Used Family History Family History Problem Relation Age of Onset ??? Hypertension Mother ??? Alzheimer's disease Mother ??? Heart disease Mother ??? Kidney disease Mother ??? Diabetes Father ??? Heart disease Father ??? Alzheimer's disease Father ??? Alcohol abuse Brother ??? Alzheimer's disease Maternal Aunt ??? Alzheimer's disease Maternal Grandmother ??? Cancer Paternal Grandmother ??? Cancer Paternal Grandfather ??? Stroke Neg Hx I have reviewed and (if needed) updated the patient's problem list, medications, allergies, past medical and surgical history, social and family history. Review of Systems Constitutional: Positive for weight loss. Denies fever, chills HEENT: No headache, ear pain or drainage, sore throat, difficulty hearing. Eyes: No visual changes or discharge, blurry vision, double vision. Cardiovascular: No chest pain, orthopnea, palpitations, lower extremity edema. Respiratory: No cough, shortness of breath, dyspnea on exertion, wheezing. GI: Positive for chronic diarrhea Gu: Positive for urinary frequency and urgency, positive for weak stream Musculoskeletal: No joint pain, no myalgias. Skin: No rashes, abnormal bruising. All other systems negative. Objective: Vital Signs Vitals: 01/03/19 1414 BP: 98/67 Pulse: 62 Temp: 98.4 ??F (36.9 ??C) Resp: 20 SpO2: 97% Height: 1.778 m (5' 10) Weight: 107 kg (236 lb) BMI (Calculated): 33.9 Body mass index is 33.86 kg/m??. Physical Exam: Constitutional: Well-developed and well-nourished, obese, appears fatigued but not in acute distress Head: Normocephalic and atraumatic Eyes: Conjunctivae clear and pink, no pallor, EOM intact. Pupils are equal, round, and reactive to light. Anicteric. Neck: Supple, full range of motion. Non-tender thyroid, no thyromegaly. No JVD. Cardiovascular: +S1S2, regular rate and rhythm, no murmurs, gallops or rubs appreciated Respiratory: Normal effort, clear to auscultation bilaterally. No wheezes, rales or rhonchi noted. Gastrointestinal: Bowel sounds present and normal. Soft and nontender to palpation. No rebound, guarding or fluid wave. Musculoskeletal: Upper and Lower extremities are symmetric with grossly normal muscle strength and tone with normal range of motion. Extremities: No cyanosis, clubbing or edema. Back: No CVA tenderness bilaterally. Neuro: Alert and oriented x 3. Normal gait. Skin: Skin is warm and dry. No rash noted. Psychiatric: Behavior is Cooperative and Polite. Mood euthymyic. Affect is appropriate. Assessment/Plan: 1. Abnormal urine odor POCT Urine Dipstick Manual No Scope 2. Type 2 diabetes mellitus with hyperglycemia, without long-term current use of insulin (HCC) CBC Comprehensive Metabolic Panel Hemoglobin A1C 3. Chronic bilateral low back pain without sciatica 4. Urinary urgency US PROSTATE Prostate Specific AG (PSA) 5. History of kidney stones 6. Acute cystitis with hematuria US URINARY SYSTEM/RENAL Urine Culture 7. Other specified hypotension 8. Chronic diarrhea 1. Abnormal urine odor -- UA today contains blood which may be an early sign of infection -- Given all of his symptoms will start antibiotics while obtaining a urine culture 2. DM II -- His chronic diarrhea may be related to poor diet while also taking immediate release Metformin -- Discussed at length reducing his sugar and carbohydrate intake -- Will also switch to extended release Metformin which is generally better tolerated -- He is due to repeat his A1c today in monitoring 3. Chronic bilateral low back pain 5. History of kidney stones 6. Acute cystitits -- As noted below he is about to leave to go to the ED for fluid resuscitation -- He states he will ask for a CT or US of his kidneys there rather than waiting for an outpatient order -- Starting antibiotics today due to blood in urine 4. Urinary urgency -- Will check a PSA and prostate ultrasound in evaluation of possible BPH 7. Hypotension -- Most likely due to loss of fluid from poor oral intake and chronic diarrhea -- Sending patient to the ED for fluid resuscitation immediately following today's visit 8. Chronic diarrhea -- Switching Metformin from IR to ER to see if this improves -- If not will check stool for ova/parasites as well as C diff and consider switching to a differentmedicatio Patient verbalizes understanding and in agreement with the above plan. All questions answered. Return for as scheduled. Electronically signed by: Niyah Corley PA-C 01/08/19 1351 documented in this encounter Plan of Treatment Scheduled Orders Name Type Priority Associated Diagnoses Order S chedule US PROSTATE Imaging Routine Urinary urgency 1 Occurrence s starting 01/03/2019 until 0 documented as of this encounter Procedures Procedure Name Priority Date/Time Associated Diagnosis Comme nts POCT URINE DIPSTICK Routine 01/03/2019 2:24 PM Abnormal urine odor Results for this MANUAL NO SCOPE EDT procedure [...] Multiple bilateral calyceal stones. Niyah Corley PA-C IMG US ORDERABLES (ABNORMAL) Urine Culture (01/03/2019 2:53 PM EDT) Component Value Ref Test Method Analysis Performed Patholog ist Range Time At Signature Urine 10,000-50,000 MICRO SEGUNDO [facility]07[facility] CFU/mL SUSCEPTIBILITY 8:[address] [facility] Staphylococcus EDT INC PATHOL warneri (CoNS) LABS (A) Specimen Anatomical Collection Method Collection Time Receive d Time (Source) Location / / Volume Laterality Urine specimen URETHRAL STRUCTURE 01/03/2019 2:53 PM 0 01/03/2019 2:53 (specimen) / Unknown EDT PM EDT Organism Antibiotic Method Susceptibility Staphylococcus warneri Organism ID MICRO SEGUNDO (CoNS) SUSCEPTIBILITY Staphylococcus warneri Cefazolin MICRO SEGUNDO <=4: Susc eptible (CoNS) SUSCEPTIBILITY Staphylococcus warneri Gentamicin MICRO SEGUNDO <=1: Susc eptible (CoNS) SUSCEPTIBILITY Staphylococcus warneri Nitrofurantoin MICRO SEGUNDO <=32: Caprice ceptible (CoNS) SUSCEPTIBILITY Staphylococcus warneri Oxacillin MICRO SEGUNDO <=0.25: S usceptible (CoNS) SUSCEPTIBILITY Staphylococcus warneri Penicillin G MICRO SEGUNDO 2: Resist ant (CoNS) SUSCEPTIBILITY Staphylococcus warneri Tetracycline MICRO SEGUNDO <=2: Susc eptible (CoNS) SUSCEPTIBILITY Staphylococcus warneri Trimethoprim/Sulfamet MICRO SEGUNDO <=0 .5/9.5: (CoNS) hoxazole SUSCEPTIBILITY Susceptible Staphylococcus warneri Vancomycin MICRO SEGUNDO 0.5: Susc eptible (CoNS) SUSCEPTIBILITY Niyah Corley PA-C MICROBIOLOGY - GENERAL ORD ERABLES Performing Organization Address City/[facility] Phon e Number [facility] CLIA# [id number] [place] [address] [facility] Prostate Specific AG (PSA) (01/03/2019 2:53 PM EDT) athologist Signature PSA 0.52 0.01 - 4.00 01/03/2019 [facility] NG/ML 8:17 PM EDT [facility] [employer] Specimen Anatomical Collection Method / Collection Time Recei ericka Time (Source) Location / Volume Laterality Blood specimen Clinic Venipuncture 01/03/2019 2:53 2:53 (specimen) / Unknown PM EDT PM EDT Niyah Corley PA-C LAB BLOOD ORDERABLES Performing Organization Address [facility] Phon e Number [facility] CLIA# [id number] [place] [address] [facility] (ABNORMAL) Hemoglobin A1C (01/03/2019 2:53 PM EDT) athologist Signature HEMOGLOBIN A1C 5.9 (H) <5.7 % 01/03/2019 [facility]52 PM EDT [facility] PATHG[facility] LABS Comment: Normal: ? Less than 5.7% Prediabetes: ??5.7% to 6.4% Diabetes: ? Greater than 6.4% eAG 123 MG/DL 01/03/2019 8:52 PM EDT [facility] eAG Comment 01/03/2019 8:52 PM EDT [facility] PATHOL LABS Comment: The [employer] on has supported the use [...] (Source) Location / Volume Laterality Blood specimen Clinic Venipuncture 01/03/2019 2:53 2:53 (specimen) / Unknown PM EDT PM EDT Nyiah Corley PA-C LAB BLOOD ORDERABLES Performing Organization Address City/State/ZIP Code Phon e Number [facility] CLIA# [id number] [place] [address] PATHOL LABS [facility] (ABNORMAL) Comprehensive Metabolic Panel (01/03/2019 2:53 PM EDT) P athologist Signature Sodium 140 135 - 146 01/03/2019 [place] SCIENTOLOGIST MMOL/L 8:17 PM [facility] PATHOL LABS Potassium 3.4 (L) 3.5 - 5.3 01/03/2019 [place] SCIENT[place] MMOL/L 8:17 PM [facility] PATHOL LABS Comment: NO VISIBLE HEMOLYSIS Chloride 109 98 - 110 MMOL/L 01/03/2019 8:17 PM [facility] PATHOL LABS CO2 23 23 - 30 MMOL/L 01/03/2019 8:17 PM [place] BAP TIST [facility] PATHOL LABS BUN 14 8 - 24 MG/DL 01/03/2019 8:[address] [facility] PATHOL LABS Glucose 151 (H) 70 - 99 MG/DL 01/03/2019 8:17 PM [facility] PATHOL LABS Creatinine 0.88 0.50 - 1.50 01/03/2019 8:[address] [facility] MG/DL [facility] PATHOL LABS Calcium 9.0 8.5 - 10.5 01/03/2019 8:17 PM [place] SCIENTOLOGIST MG/DL [facility] PATHOL LABS Total Protein 6.2 6.0 - 8.3 G/DL 01/03/2019 8:17 PM [facility] PATHOL LABS Albumin 4.0 3.5 - 5.0 G/DL 01/03/2019 8:17 PM [facility] PATHOL LABS Total Bilirubin 0.6 0.1 - 1.2 MG/DL 01/03/2019 8:17 PM [facility] PATHOL LABS Alkaline Phosphatase 73 25 - 125 IU/L 01/03/2019 8:17 PM [facility]L EDT [facility] INC PATHOL LABS AST (SGOT) 17 5 - 40 IU/L or 01/03/2019 8:17 PM [place] BA PTIST U/L [facility] PATHOL LABS ALT (SGPT) 20 5 - 50 IU/L or 01/03/2019 8:17 PM [place] BA PTIST U/L [facility] PATHOL LABS Anion Gap 8 4 - 14 MMOL/L 01/03/2019 8:17 PM [facility] INC PATHOL LABS Est. GFR Non- >=90 >=60 01/03/2019 8:17 PM [facility] Japanese ML/MIN/1.73 M*2 [facility] PATHOL LABS Comment: GFR estimated by CKD-EPI equations, repo rtable up to 90 ML/MIN/1.73 M*2 Est. GFR >=90 >=60 ML/MIN/1.73 M*2 01/03/2019 8 :17 PM [facility] INC PATHOL LABS Comment: GFR estimated by CKD-EPI equations, repo rtable up to 90 ML/MIN/1.73 M*2 Specimen Anatomical Collection Method / Collection Time Recei ericka Time (Source) Location / Volume Laterality Blood specimen Clinic Venipuncture 01/03/2019 2:53 2:53 (specimen) / Unknown PM EDT PM EDT Niyah Corley PA-C LAB BLOOD ORDERABLES Performing Organization Address City/State/ZIP Code Phon e Number [facility] CLIA# [id number] [place] [address] PATHOL LABS [facility] (ABNORMAL) CBC (01/03/2019 2:53 PM EDT) P athologist Signature WBC 5.6 4.8 - 10.8 01/03/2019 [place] SCIENTOLOGIST x 10*3/uL 7:50 PM EDT [facility] RBC 4.18 (L) 4.70 - 6.10 01/03/2019 [place] SCIENT[place] x 10*6/uL 7:50 PM EDT [facility]S Hemoglobin 12.5 (L) 14.0 - 18.0 01/03/2019 [place] SCIENTOLOG[place] G/DL 7:50 PM EDT [facility]S Hematocrit 36.6 (L) 42.0 - 52.0 01/03/2019 [place] SCIENTOLOGIST % 7:50 PM EDT [facility]OL LABS MCV 87.5 80.0 - 94.0 01/03/2019 [place] SCIENTOLOGIST FL 7:50 PM EDT [facility]OL LABS MCH 30.0 27.0 - 31.0 01/03/2019 [place] SCIENTOLOG[place] PG 7:50 PM EDT [facility]OL LABS MCHC 34.3 33.0 - 37.0 01/03/2019 [place] SCI[facility] G/DL 7:50 PM EDT [facility]S RDW 14.0 11.5 - 14.5 01/03/2019 [place] [facility] % 7:50 PM EDT [facility]S Platelets 245 160 - 360 X 01/03/2019 [place] SCIENTOLOG[place] 10*3/uL 7:50 PM EDT [facility]OL [facility]S MPV 8.1 6.8 - 10.2 01/03/2019 [facility] [place] 7:50 PM EDT [facility] Specimen Anatomical Collection Method / Collection Time Recei ericka Time (Source) Location / Volume Laterality Blood specimen Clinic Venipuncture 01/03/2019 2:53 2:53 (specimen) / Unknown PM EDT PM EDT Niyah Corley PA-C LAB BLOOD ORDERABLES Performing Organization Address City/State/ZIP Code Phon e Number [facility] CLIA# [id number] [place] [address] PATHOL LABS [facility] (ABNORMAL) POCT Urine Dipstick Manual No Scope (01/03/2019 2:24 PM EDT) Patholo gist Method Time Signature POC Urine Color ORANGE Yellow POC Urine CLEAR Clear Appearance POC Urine Negative Negative Glucose mg/dL POC Urine Negative Negative Bilirubin POC Urine Negative Negative Ketones mg/dL POC Urine 1.030 (A) 1.005 - Specific [place] 1.025 POC Urine Blood Large (A) Negative POC Urine pH 5.0 4.6 - 8.0 Dipstick POC Urine Trace (A) Negative Protein mg/dL POC Urobilinogen 0.2 0.2 - 1 mg/dL POC Urine Negative Negative Nitrite POC Urine Negative Negative Leukocytes Strip Lot Number [id number] Exp. Date 07/16/2019 Specimen (Source) Anatomical Collection Method Collection Time Re ceived Time Location / / Volume Laterality Urine specimen 01/03/2019 2:24 PM (specimen) EDT Niyah Corley PA-C POINT OF CARE TEST ORDERAB LES documented in this encounter Visit Diagnoses Diagnosis Abnormal urine odor - Primary Other nonspecific finding on examination of urine Type 2 diabetes mellitus with hyperglyce jackelyn, without long-term current use of insulin (HCC) Chronic bilateral low back pain without sciatica Urinary urgency Urgency of urination History of kidney stones Acute cystitis with hematuria Other specified hypotension Chronic diarrhea Diarrhea Acute cystitis with hematuria documented in this encounter Care Teams Respiratory Therapist Assistant Relationship Specialty Start Date End Date Neal Breen MD PCP - General Family Medicine 07/31/18 07/14/[address] [place] [address] documented as of this encounter
--- OUTSIDE RECORDS SUMMARY | 2021-11-30 11:49 | XMS_ITS | Encounter Summary ---
:1955 Author Organization [facility] [place] [address] Care Team Providers Name Role Phone Neal Breen MD Primary Care Provider [phone] Reason for Visit Reason Comments Left Shoulder Problem 63 yo male ambulatory to [facility] without aids. Presents today for evaluation of left shoul chanell pain with associated weakness and decreased range of motio n. Sustained injury 2 years ago after lifting a 5 gallon buc ket of paint, felt a pop and tearing sensation in left sh oulder. Given left subacromial steroid injection 11/13/18 wi th temporary improvement. He is 2 years post-op left medial MA KO and open medial patellar facetectomy 11/01/16. Encounter Details Date Type Department Care Team Description 12/20/2018 Office Visit Orthopaedics - Miguelito Ash MD Nontraumatic complete [address] tear of left rotator [place], [place] [address] NORTH cuff (Primary Dx) [phone] [facility] [place] [address] Social History Tobacco Use Types Packs/Day Years [...] Reading Time Taken Comments Blood Pressure 102/59 12/20/2018 9:46 AM EDT Pulse 61 12/20/2018 9:46 AM EDT Temperature 36.5 ??C (97.7 ??F) 12/20/2018 9:46 AM EDT Respiratory Rate - - Oxygen Saturation - - Inhaled Oxygen Concentration - - Weight 103.3 kg (227 lb 11.8 oz) 12/20/2018 9:46 AM EDT Height 177.8 cm (5' 10) 12/20/2018 9:46 AM EDT Body Mass Index 32.68 12/20/2018 9:46 AM EDT documented in this encounter Functional [...] documented as of this encounter Progress Notes Kate Og RN - 12/20/2018 9:45 AM EDT Reason for visit: Presents today for evaluation of left shoulder pain with associated weakness and decreased range of motion. Sustained injury 2 years ago after lifting a 5 gallon bucket of paint, felta pop and tearing sensation in left shoulder. Given left subacromial steroid injection 11/13/18 with temporary improvement. He is 2 years post-op left medial OYUSIF and open medial patellar facetectomy 11/01/16. He states overall left knee is improved following surgery. Previous imaging- Xray- Left shoulder 06/28/18 CONCLUSION: 1. No acute fracture or malalignment. 2. Mild acromioclavicular and glenohumeral joint degenerative changes. MRI- Left shoulder 12/10/18 CONCLUSION: 1. Full-thickness tear involving the supraspinatus and [...] the groove. Mild tenosynovitis below the groove. Employment status: Retired. Electronically signed by: Miguelito Manuel MD 12/23/18 1621 Miguelito Manuel MD - 12/20/2018 9:45 AM EDT Dario Mckeon 63 y.o. Was there an injury? yes Getting better or worse? worse Injection history- 2 subacromial injections Previous imaging- Xray- y MRI- y Brief description of problem- HPI: The patient presents for evaluation of left shoulder pain. Right hand dominant. Presents with left shoulder pain and weakness for 2 years. Injured it 2 years ago while lifting a bucket of paint. Has had sporadic symptoms since then but recently it has gotten worse. He had two previous subacromial injections that provided some relief but no lasting effects. Of note he has hx of CVA but no residual weakness but does have problems with memory. He has pain at night and with overhead activities. MR recently obtained which reveals rotator cuff pathology. Past Medical History: Diagnosis Date ??? Acute [...] Right L2-L5; Surgeon: Neptali Toledo MD; Location: [address] [facility]; Service: Anes Physiatry; Laterality: Right; [...] Med flecainide (TAMBOCOR) 100 MG tablet Sig: TAKE 1 TABLET BY MOUTH TWICE A DAY Notes to Pharmacy: Patient needs to contact office for an appointment loratadine (CLARITIN) 5 mg chewable tablet Sig [...] mouth daily. - Oral Class: Historical Med topiramate (TOPAMAX) 100 MG tablet Sig - Route: Take 100 mg by mouth 2 times daily. - Oral Class: Historical Med triamcinolone (KENALOG) 0.1 % cream Si application to affected areas BID PRN fluticasone (FLONASE) 50 mcg/actuation nasal spray Sig - Route: 2 sprays by Each Nare route daily. - Each Nare Class: Historical Med Vitals: 12/20/18 0946 BP: 102/59 Pulse: 61 Temp: 97.7 ??F (36.5 ??C) PainSc: 6-Six (moderate) Comment: left shoulder Height: 1.778 m (5' 10) Weight: 103.3 kg (227 lb 11.8 oz) BMI (Calculated): 32.7 Physical Exam: General- NAD Neck- non-tender to dep palpation. No crepitus. Normal motion. Sensation intact distally in C5-T1 distributions. Normal strength. No signs of cervical radiculopathy or myelopathy. Left shoulder: Pain to palpation lateral to acromion and at AC joint Passive ROM: FE 120, abd 120, ERS 40, ERA 70 Active ROM: FE 110, abd 110, ERS 40, ERA 70 4/5 supraspinatus, 5/5 infraspinatus 5/5 subscap + neer and brand - drop arm - bear hug + bicipital pain, + speeds NVI Contralateral shoulder- Normal strength and motion exam. No pain, no limitations. MRI - independently reviewed with patient- 1. Full-thickness tear involving the supraspinatus and [...] the groove. Mild tenosynovitis below the groove. Assessment: Left full thickness rotator cuff tear, biceps tendinosis Plan: - Discussed operative versus non-operative measures. Conservative treatment such as stretching exercises and pool therapy and non-impact exercises were reviewed. We discussed a short course of NSAIDs if no medical contraindication. We reviewed activity and weightbearing restrictions and injections. - After thorough discussion, patient is interested in pursuing rotator cuff repair, biceps tenodesis, possible ACR. He is interested in waiting until hunting season is over. He will contact us in the near future to discuss scheduling. - If symptoms worsen or new symptoms develop the patient is encouraged to seek medical attention immediately. Electronically signed by: Costa Salmeron MD 12/20/2018 10:30 AM I saw and evaluated the patient and reviewed the resident's note. I agree with the resident's findings and plan. Electronically Signed by: Miguelito Manuel MD, Attending Physician 12/23/2018 4:19 PM Electronically signed by: Miguelito Manuel MD 12/23/18 1621 documented in this encounter Plan of Treatment Not on filedocumented as of this encounter Visit Diagnoses Diagnosis Nontraumatic complete tear of left rotat or cuff - Primary documented in this encounter Care Teams Regional Owner Operator Truck Driver Relationship Specialty Start Date End Date Neal Breen MD PCP - General Family Medicine 07/31/18 07/14/[address] [place] [id number] documented as of this encounter
--- OUTSIDE RECORDS SUMMARY | 2021-11-30 11:49 | XMS_ITS | Encounter Summary ---
:1955 Author Organization [facility] [place] [address] Care Team Providers Name Role Phone Neal Breen MD Primary Care Provider [phone] Encounter Details Date Type Department Care Team Description 01/03/2019 Lab Visit [facility] T ype 2 diabetes mellitus with hyperglycemia, without long-term current use of insulin (HCC); Phlebotomy - Lexingt on Urinary urgency; [address] [facility] [place] [address] Social History Tobacco Use [...] Procedure Name Priority Date/Time Associated Comments Diagnosis PROSTATE SPECIFIC AG Routine 01/03/2019 2:53 Urinary urgency Results for this (PSA) PM EDT procedure are i n the results section. CBC Routine 01/03/2019 2:53 PM Type 2 Diabetes Result s for this EDT Mellitus With procedure are in Hyperglycemia, the results Without Long-Term section. Current Use Of Insulin (Hcc) URINE CULTURE Routine 01/03/2019 2:53 PM Acute cystitis with R esults for this EDT hematuria procedure are i n the results section. HEMOGLOBIN A1C Routine 01/03/2019 2:53 PM Type 2 Diabetes Resu lts for this EDT Mellitus With procedure are in Hyperglycemia, the results Without Long-Term section. Current Use Of Insulin (Hcc) COMPREHENSIVE Routine 01/03/2019 2:53 PM Type 2 Diabetes Resul ts for this METABOLIC PANEL EDT Mellitus With procedure a re in Hyperglycemia, the results Without Long-Term section. Current Use Of Insulin (Hcc) documented in this encounter Results (ABNORMAL) Urine Culture (01/03/2019 2:53 PM EDT) Component Value Ref Test Method Analysis Performed Patholog ist Range Time At Signature Urine 10,000-50,000 MICRO SEGUNDO 01/07/2019 [place] culture ID CFU/mL SUSCEPTIBILITY 8:20 AM [facility] Staphylococcus EDT INC PATHOL warneri (CoNS) [...] (CoNS) SUSCEPTIBILITY Staphylococcus warneri Penicillin G MICRO ESGUNDO 2: Resist ant (CoNS) SUSCEPTIBILITY Staphylococcus warneri Tetracycline MICRO SEGUNDO <=2: Susc eptible (CoNS) SUSCEPTIBILITY Staphylococcus warneri Trimethoprim/Sulfamet MICRO SEGUNDO <=0 .5/9.5: (CoNS) hoxazole SUSCEPTIBILITY Susceptible Staphylococcus warneri Vancomycin MICRO SEGUNDO 0.5: Susc eptible (CoNS) SUSCEPTIBILITY Niyah Corley PA-C MICROBIOLOGY - GENERAL ORD ERABLES Performing Organization Address City/State/ZIP Code Phon e Number [facility] CLIA# [id number] [place] [address] [facility] [place] Prostate Specific AG (PSA) (01/03/2019 2:53 PM EDT) athologist Signature PSA 0.52 0.01 - 4.00 01/03/2019 [facility] NG/ML 8:17 PM EDT [facility] We Specimen Anatomical Collection Method / Collection Time Recei ericka Time (Source) Location / Volume Laterality Blood specimen Clinic Venipuncture 01/03/2019 2:53 2:53 (specimen) / Unknown PM EDT PM EDT Niyah Corley PA-C LAB BLOOD ORDERABLES Performing Organization Address City/[facility]/ZIP [facility] Phon e Number [facility] CLIA# [id number] [place] [address] [facility] [place] (ABNORMAL) Hemoglobin A1C (01/03/2019 2:53 PM EDT) athologist Signature HEMOGLOBIN A1C 5.9 (H) <5.7 % 01/03/2019 [facility] 8:52 PM EDT [facility] Comment: Normal: ? Less than 5.7% Prediabetes: ??5.7% to 6.4% Diabetes: ? Greater than 6.4% eAG 123 MG/DL 01/03/2019 8:52 PM EDT [facility] PATHOL LABS eAG Comment 01/03/2019 8:52 PM EDT [facility] PATHOL LABS Comment: The [place] Diabetes Associ[employer] on has supported the use [...] Organization Address City/State/ZIP Code Phon e Number [facility] CLIA# [id number] [place] [address] PATHOL LABS [facility] [place] (ABNORMAL) Comprehensive Metabolic Panel (01/03/2019 2:53 PM EDT) P athologist Signature Sodium 140 135 - 146 01/03/2019 [place] MMOL/L 8:17 PM [facility] PATHOL LABS Potassium 3.4 (L) 3.5 - 5.3 01/03/2019 [place] MMOL/L 8:17 PM [facility] PATHOL LABS Comment: NO VISIBLE HEMOLYSIS Chloride 109 98 - 110 MMOL/L 01/03/2019 8:17 PM [facility] PATHOL LABS CO2 23 23 - 30 MMOL/L 01/03/2019 8:17 PM [facility] PATHOL LABS BUN 14 8 - 24 MG/DL 01/03/2019 8:17 [address] [facility] LABS Glucose 151 (H) 70 - 99 MG/DL 01/03/2019 8:17 PM [facility] Creatinine 0.88 0.50 - 1.50 01/03/2019 8:17 PM [facility] MG/DL [facility] PATH[facility] LABS Calcium 9.0 8.5 - 10.5 01/03/2019 8:17 PM [place] [facility] Total Protein 6.2 6.0 - 8.3 G/DL 01/03/2019 8:17 PM [facility] PATHOL LABS Albumin 4.0 3.5 - 5.0 G/DL 01/03/2019 8:17 PM [facility] PATHOL LABS Total Bilirubin 0.6 0.1 - 1.2 MG/DL 01/03/2019 8:17 PM [facility] PATHOL LABS Alkaline Phosphatase 73 25 - 125 IU/L 01/03/2019 8:17 PM [facility]/L T [facility] PATH[facility] LABS AST (SGOT) 17 5 - 40 IU/L or 01/03/2019 8:17 PM [place] [facility] U/L [facility] LABS ALT (SGPT) 20 5 - 50 IU/L or 01/03/2019 8:17 PM [place] [facility] [place] [facility]S Anion Gap 8 4 - 14 MMOL/L 01/03/2019 8:17 PM [facility] PATHOL LABS Est. GFR Non- >=90 >=60 01/03/2019 8:17 PM [facility] [place] ML/MIN/1.73 M*2 [facility] Comment: GFR estimated by CKD-EPI equations, repo rtable up to 90 ML/MIN/1.73 M*2 Est. GFR >=90 >=60 ML/MIN/1.73 M*2 01/03/2019 8 :17 PM [facility] PATHOL LABS Comment: GFR estimated by CKD-EPI equations, repo rtable up to 90 ML/MIN/1.73 M*2 Specimen Anatomical Collection Method / Collection Time Recei ericka Time (Source) Location / Volume Laterality Blood specimen Clinic Venipuncture 01/03/2019 2:53 2:53 (specimen) / Unknown PM EDT PM EDT Niyah Corley PA-C LAB BLOOD ORDERABLES Performing Organization Address City/State/ZIP Code Phon e Number [facility] CLIA# [id number] [place] [address] PATHOL LABS [facility] [place] (ABNORMAL) CBC (01/03/2019 2:53 PM EDT) P athologist Signature WBC 5.6 4.8 - 10.8 01/03/2019 [place] x 10*3/uL 7:50 PM [facility] RBC 4.18 (L) 4.70 - 6.10 01/03/2019 [place] [facility] x 10*6/uL 7:50 PM [facility] Hemoglobin 12.5 (L) 14.0 - 18.0 01/03/2019 [place] [facility] G/DL 7:50 PM [facility] Hematocrit 36.6 (L) 42.0 - 52.0 01/03/2019 [place] [facility] % 7:50 PM [facility] MCV 87.5 80.0 - 94.0 01/03/2019 [place] [facility] [place] 7:50 PM [facility] MCH 30.0 27.0 - 31.0 01/03/2019 [facility] 7:50 PM [facility] MCHC 34.3 33.0 - 37.0 01/03/2019 [place] [facility] G/DL 7:50 PM [facility] RDW 14.0 11.5 - 14.5 01/03/2019 [place] [facility] % 7:50 PM [facility] Platelets 245 160 - 360 X 01/03/2019 [place] [facility] 10*3/uL 7:50 PM [facility] MPV 8.1 6.8 - 10.2 01/03/2019 [facility] [place] 7[facility]50 [facility] Specimen Anatomical Collection Method / Collection Time Recei ericka Time (Source) Location / Volume Laterality Blood specimen Clinic Venipuncture 01/03/2019 2:53 2:53 (specimen) / Unknown PM EDT PM EDT Niyah Corley PA-C LAB BLOOD ORDERABLES Performing Organization Address City/State/ZIP Code Phon e Number [facility] CLIA# [id number] [place] [address] PATH[facility]S [facility] [place] documented in this encounter Visit Diagnoses Diagnosis Type 2 diabetes mellitus with hyperglyce jackelyn, without long-term current use of insulin (HCC) Urinary urgency Urgency of urination Acute cystitis with hematuria documented in this encounter Care Teams Events Associate Relationship Specialty Start Date End Date Neal Breen MD PCP - General Family Medicine 07/31/18 07/14/[address] [place] [address] documented as of this encounter
--- OUTSIDE RECORDS SUMMARY | 2021-11-30 11:49 | XMS_ITS | Encounter Summary ---
:1955 Author Organization [facility] [place] [address] Care Team Providers Name Role Phone Neal Breen MD Primary Care Provider [phone] Reason for Visit Reason Comments Injections Synvisc injection for the ri ght knee, 04/19 Medication (Routine) - Closed Specialty Diagnoses / Procedures Referred By Contact Refer red To Contact Pharmacy Diagnoses Primary osteoarthritis of right knee Nasir Vega PA-C [facility] [address] [place] [address] [address] [place] [address] Phone: Referral ID Status Reason Start Expiration Visits Visits Date Date Requested Authorized [id number] Closed Medication 05/17/2018 05/17/2019 3 3 authorization Encounter Details Date Type Department Care Team Description 06/13/2018 Clinical Support Orthopaedics - Nasir Abrams, Primary osteoarthritis of ri ght knee (Primary Dx); [address] [place] [address] DEBBIE Vasovagal response [address] [phone] [place] [address] Social History Tobacco Use Types Packs/Day Years [...] Sign Reading Time Taken Comments Blood Pressure 138/86 06/13/2018 10:25 AM EST Pulse 64 06/13/2018 10:25 AM EST Temperature - - Respiratory Rate - - Oxygen Saturation - - Inhaled Oxygen Concentration - - Weight - [...] encounter Progress Notes Nasir Vega PA-C - 06/13/2018 10:00 AM EST Mike Bishop 62 y.o. male Chief Complaint: Knee Arthritis HPI: Patient Presents For right Knee 1 Of 3 Synvisc Injections Patient is here [...] change in symptoms Follow up as planned During the procedure patient had a vasovagal response, vitals stable , no falls or injuries - observed for 30 minutes - discharged home - if any other symptoms develop call 911 or report to ER. Has hadvasovagal episodes in past - no chest pain, no shortness of breath. 1. Primary osteoarthritis of right knee Electronically signed by: Nasir Vega PA-C 06/13/18 1050 documented in this encounter Plan of Treatment Not on filedocumented as of this encounter Visit Diagnoses Diagnosis Primary osteoarthritis of right knee - P rimary Vasovagal response Syncope and collapse documented in this encounter Administered Medications Inactive Administered Medications - up to 3 most recent administrations Medication Order MAR Action Action Date Dose Rate Site hylan (SYNVISC) injection 16 mg Given 06/13/2018 10:08 AM EST 16 mg 16 mg Weekly, Intra-articular, First dose on Mon06/13/18 at 1045, For 3 doses documented in this encounter Care Teams Thermospray Operator Relationship Specialty Start Date End Date Neal Breen MD PCP - General Family Medicine 06/13/18 06/21/[address] [place] [phone] documented as of this encounter
--- OUTSIDE RECORDS SUMMARY | 2021-11-30 11:49 | XMS_ITS | Encounter Summary ---
:1955 Author Organization [facility] [place] [address] Care Team Providers Name Role Phone Neal Breen MD Primary Care Provider Encounter Details Date Type Department Care Team Description 06/28/2018 Hospital Encounter Diagnostic Imaging - Nasir Vega PA-C [address] [address] [facility] [address] [place] [id number] (Wo rk) Social History Tobacco Use Types [...] nts XR SHOULDER LT 2 OR Routine 06/28/2018 10:27 AM Chronic left R esults for this MORE VIEWS EDT shoulder pain procedure are in the results section. documented in [...] al joint degenerative changes. Nasir Vega PA-C [facility] ORDER [facility] documented in this encounter Visit Diagnoses Diagnosis Chronic left shoulder pain Pain in joint, shoulder region documented in this encounter Care Teams Psych Assistant Relationship Specialty Start Date End Date Neal Breen MD PCP - General Family Medicine 06/28/18 06/28/[address] [place] [id number] documented as of this encounter
--- OUTSIDE RECORDS SUMMARY | 2021-11-30 11:49 | XMS_ITS | Encounter Summary ---
:1955 Author Organization [facility] [place] [address] Care Team Providers Name Role Phone Chetna Loredo Primary Care Provider Unavailable Encounter Details Date Type Department Care Team Description 03/05/[address] [facility] Heather Johnson ntricular Network Cardiology - Priscilla, POULTRY FEED SUPERVISOR tachycardia (HCC) [facility] (Primary Dx) [address] [place] [phone] Social History Tobacco Use Types Packs/Day Years [...] of this encounter Results EKG - PERFORMED BY CLINIC STAFF (03/06/2018 11:17 AM EST) Specimen Anatomical Collection Method Collection Time Receive d Time (Source) Location / / Volume Laterality 03/06/2018 11:17 03/06/2018 8:54 AM EST PM EST Narrative MUSE - 03/06/2018 8:54 PM EST Ventricular Rate ? 73 ?BPM ? Atrial Rate ?73 ?BPM ? P-R Interval ? 154 ? ms ? QRS Duration ? 98 ?ms ? Q-T Interval ? 408 ? ms ? QTC ?449 ? ms ? P Dillwyn ? 25 ?degrees ? R Dillwyn ? -46 ? degrees ? T Dillwyn ? 44 ?degrees ? Sinus rhythm Left anterior fascicular block When compared with ECG of 16-SEP-2017 10 :52, No significant change was found Confirmed by DR. FUNMILAYO EASON ([id number]) on 03/06/2018 8:54:06 PM Procedure Note Funmilayo Eason MD - 03/06/2018For matting of this note might be different from the original. Ventricular Rate 73 BPM Atrial Rate 73 BPM P-R Interval 154 ms QRS Duration 98 ms Q-T Interval 408 ms QTC 449 ms P Dillwyn 25 degrees R Dillwyn -46 degrees T Dillwyn 44 degrees Sinus rhythm Left anterior fascicular block When compared with ECG of 16-SEP-2017 10 :52, No significant change was found Confirmed by DR. FUNMILAYO EASON ([id number]) on 03/06/2018 8:54:06 PM Funmilayo Eason MD ECG SPECIAL Performing Organization Address City/State/ZIP Code Phon e Number MUSE documented in this encounter Visit Diagnoses Diagnosis Supraventricular tachycardia (HCC) - Velma andres Other specified cardiac dysrhythmias Type 2 diabetes mellitus treated without insulin (HCC) - Primary Supraventricular tachycardia (HCC) Other specified cardiac dysrhythmias documented in this encounter Care Teams Alkylation Operator Relationship Specialty Start Date End Date Chetna Loredo PCP - General Family Medicine 05/19/16 04/13/18 documented as of this encounter
--- OUTSIDE RECORDS SUMMARY | 2021-11-30 11:49 | XMS_ITS | Encounter Summary ---
:1955 Author Organization [facility] [place] [address] Care Team Providers Name Role Phone Neal Breen MD Primary Care Provider [phone] Reason for Referral MRI/CAT Scan (Routine) - Closed Specialty Diagnoses / Procedures Referred By Contact Refer red To Contact Radiology Diagnoses Tendinopathy of left rotator cuff Madeline Smith [facility] Procedures MR SHOULDER LEFT [address] [address] Phone: Referral ID Status Reason Start Date Expiration Date Visits Requ ested Visits Authorized [id number] Closed 11/16/2018 01/14/2019 1 1 Reason for Visit MRI/CAT Scan (Routine) - Closed Specialty Diagnoses / Procedures Referred By Contact Refer red To Contact Radiology Diagnoses Tendinopathy of left rotator cuff Madeline Smith [facility] Procedures MR SHOULDER LEFT [phone] [place] [address] Phone: Referral ID Status Reason Start Date Expiration Date Visits Requ ested Visits Authorized [id number] Closed 11/16/2018 01/14/2019 1 1 Encounter Details Date Type Department Care Team Description 12/10/2018 Hospital Encounter MRI Imaging - Madeline Hartmann [address] [place] [address] Social History Tobacco Use Types Packs/Day Years [...] morning. tablet atorvastatin (LIPITOR) Take 1 tablet (40 mg 90 tablet 5 01/201903/13/2019 40 MG tablet total) by mouth daily. cyclobenzaprine Take 1 tablet (10 mg 20 tablet 0 04/06/2017 07/08/2021 (FLEXERIL) 10 MG tablet total) by mouth 2 (two) times daily as needed for up to [address] 1 drop into 0 019 70/POLYCARBOPHIL/PEG/NAC both eyes as needed. L (ARTIFICIAL TEAR SOLUTION OPHT) flecainide (TAMBOCOR) TAKE 1 TABLET BY 60 tablet 0 12/05/19 19 01/21/2019 100 MG tablet MOUTH TWICE A DAY fluticasone [...] Priority Date/Time Associated Diagnosis Comme nts MR SHOULDER LEFT WO Routine 12/10/2018 4:12 PM Tendinopathy of left Results for this CONTRAST EDT rotator cuff procedure are i n the results section. documented in this encounter Results MR SHOULDER LEFT WO [...] Mild tenosynovitis below the groove. Madeline Smith [facility] MRI ORDERABLES documented in this encounter Visit Diagnoses Diagnosis Tendinopathy of left rotator cuff documented in this encounter Care Teams Retirement Consultant Relationship Specialty Start Date End Date Neal Breen MD PCP - General Family Medicine 07/31/18 07/14/[address] [place] [phone] documented as of this encounter
--- OUTSIDE RECORDS SUMMARY | 2021-11-30 11:49 | XMS_ITS | Encounter Summary ---
:1955 Author Organization [facility] [place] [address] Care Team Providers Name Role Phone Chetna Loredo Primary Care Provider Unavailable Reason for Referral MRI/CAT Scan (Routine) - Closed Specialty Diagnoses / Procedures Referred By Contact Refer red To Contact Radiology Diagnoses Cerebrovascular accident (CVA), unspecified mechanism (HCC) Tr Sher Jr., [facility] Mri Imaging Procedures MR BRAIN W & WO CONTRAST [address] [address] [address] [place], [place] [address] Referral ID Status Reason Start Date Expiration Date Visits Requ ested Visits Authorized [id number] Closed 02/19/2018 04/21/2019 1 1 Reason for Visit MRI/CAT Scan (Routine) - Closed Specialty Diagnoses / Procedures Referred By Contact Refer red To Contact Radiology Diagnoses Cerebrovascular accident (CVA), unspecified mechanism (HCC) Tr Sher Jr., [facility] Mri Imaging Procedures MR BRAIN W & WO CONTRAST [address] [place] [address] [place] [address] [address] [place], [place] [address] Referral ID Status Reason Start Date Expiration Date Visits Requ ested Visits Authorized [id number] Closed 02/19/2018 04/21/2019 1 1 Encounter Details Date Type Department Care Team Description 03/04/2018 Hospital Encounter MRI Outpatient Imaging Tr Sher - Executive Chely Tineo MD [facility] [place] [address] [place] [address] [place], [place] [address] [address] [place], [place] [phone] (Wo rk) Social History Tobacco Use Types [...] Diagnosis Comme nts MR BRAIN WWO Routine 03/04/2018 9:02 PM Cerebrovascular Result s for this CONTRAST EST accident (CVA), procedure ar e in unspecified mechanism the re sults (HCC) section. documented in this encounter Results MR BRAIN W & WO CONTRAST (03/04/2018 9:02 PM EST) Anatomical Region Laterality Modality Head Magnetic Resonance Specimen (Source) Anatomical Collection Method Collection Time Re ceived Time Location / / Volume Laterality 03/05/2018 9:55 AM EST Impressions 03/05/2018 12:35 PM EST There is a large subacute intraparenchym al hematoma in the right frontal lobe as described above with no underlying enhancing lesion identified to explain the hemorrhage. However, multiple peripherally located remote microhemorrhages are note d in the bilateral cerebral hemispheres with no significant hemorrhage in the brainstem or deep bell nuclei. This pattern would be more typical of amyloid angiopa thy as an etiology for the hemorrhage ra ther than hypertension. Findings discussed with Dr. Tr Sher by Dr. Sukhwinder Ojeda on 03/05/2018 12:09 PM. Narrative 03/05/2018 12:35 PM EST MRI BRAIN WITH AND WITHOUT CONTRAST, 03/04/2018 9:02 PM INDICATION: ??\ I63.9 Cerebrovascular ac cident (CVA), unspecified mechanism (HCC) COMPARISON: MRI dated 09/16/2017 TECHNIQUE: Multiplanar, multi-sequence M R imaging of the entire brain was performed before and after intravenous administration of gadolinium-based contrast. FINDINGS: Calvarium/skull base: No focal marrow re placing lesion suggestive of neoplasm. Orbits: Grossly unremarkable. Paranasal sinuses: Imaged portions clear . Brain: There is an area of increased T1 signal, restricted diffusion, and susceptibility artifact in the right frontal lobe measuring approximately 4.5 x 4.5 x 2.5 cm (series 6, image 18 and series 3, i mage 20) consistent with a subacute janak isabell, with some surrounding edema with local mass effect and sulcal effacement but no midline shift. There are multiple additional peripherally located foci of ho sceptibility artifact in the bilateral c erebral hemispheres consistent with remote microhemorrhages, with no significant hemorrhage identified in the brainstem or deep aguilar nuclei. No evidence of acute ischemia. No hydrocephalus. No abnormal enhancement to suggest neoplasm, abscess, or mass lesion. Grossly normal flow-related signal in the major intracranial arteries and dural sinuses. 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 Procedure Note Vasquez Nair MD - 03/05/2018Form atting of this note might be different from the original. MRI BRAIN WITH AND WITHOUT CONTRAST, 9:02 PM INDICATION: \ I63.9 Cerebrovascular acci dent (CVA), unspecified mechanism (HCC) COMPARISON: MRI dated 09/16/2017 TECHNIQUE: Multiplanar, multi-sequence M R imaging of the entire brain was performed before and after intravenous administration of gadolinium-based contrast. FINDINGS: Calvarium/skull base: No focal marrow re placing lesion suggestive of neoplasm. Orbits: Grossly unremarkable. Paranasal sinuses: Imaged portions clear . Brain: There is an area of increased T1 signal, restricted diffusion, and susceptibility artifact in the right frontal lobe measuring approximately 4.5 x 4.5 x 2.5 cm (series 6, image 18 and series 3, image 20) consistent with a subacute hematoma, with some surr ounding edema with local mass effect and sulcal effacement but no midline shift. There are multiple additional peripherally located foci of susceptibility artifact in the bilateral cerebral hemispheres consisten t with remote microhemorrhages, with no significant hemorrhage identified in the brainstem or deep aguilar nuclei. No evidence of acute ischemia. No hydrocephalus. No abnormal enhancement to suggest neoplasm, abscess , or mass lesion. Grossly normal flow- related signal in the major intracranial arteries and dural sinuses. Scattered foci of hyperintense T2 and FLAIR signal abnormality in the periventricular and subcortical white ma tter, likely reflecting sequelae of chronic microvascular ischemic disease (leukoaraiosis). CONCLUSION: There is a large subacute intraparenchym al hematoma in the right frontal lobe as described above with no underlying enhancing lesion identified to explain the hemorrhage. However, multiple peripherally located remote microhemorrhages are noted in the bilate ral cerebral hemispheres with no significant hemorrhage in the brainstem or deep bell nuclei. This pattern would be more typical of amyloid angiopathy as an etiology for the hemorrhage rather than hypertension. Findings discussed with Dr. Tr Sher by Dr. Sukhwinder Ojeda on 03/05/2018 12:09 PM. Tr Sher Jr., MD IMG MRI ORDERABLES documented in this encounter Visit Diagnoses Diagnosis Cerebrovascular accident (CVA), unspecif ied mechanism (HCC) documented in this encounter Care Teams Target Aircraft Technician Relationship Specialty Start Date End Date Chetna Loredo PCP - General Family Medicine 05/19/16 04/13/18 documented as of this encounter
--- OUTSIDE RECORDS SUMMARY | 2021-11-30 11:49 | XMS_ITS | Encounter Summary ---
:1955 Author Organization [facility] [place] [address] Care Team Providers Name Role Phone Neal Breen MD Primary Care Provider [phone] Encounter Details Date Type Department Care Team Description 09/24/2018 Telephone [facility] [place] Mo [address] [phone] Social History Tobacco Use [...] Telephone Encounter - Susy Meade CMA - 09/25/2018 11:50 AM EDT Spoke with Natali at 's office and scheduled patient for MondayOctober [address]Hill Anablea's PA, which patient has seen in the past. Patient notified of appointment. Electronically signed by: Susy Meade CMA 09/25/18 1152 Telephone Encounter - Susy Meade CMA - 09/24/2018 11:37 AM EDT Left message for 's barge hand to return call. Electronically signed by: Susy Meade CMA 09/24/18 1139 Telephone Encounter - Susy Meade CMA - 09/24/2018 11:37 AM EDT ----- Message from Neal Breen MD sent at 09/24/2018 10:51 AM EDT ----- Regarding: [facility] Please contact [facility]. Patient sees Dr Sher for recent intracerebral hemorrhage. 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 Would like for him to be seen there [facility]. Thanks Electronically signed by: Susy Meade CMA 09/24/18 1137 documented in this encounter Plan of Treatment Not on filedocumented as of this encounter Visit Diagnoses Not on filedocumented in this encounter Care Teams Registered Route Associate Relationship Specialty Start Date End Date Neal Breen MD PCP - General Family Medicine 07/31/18 07/14/[address] [place], [place] [id number] documented as of this encounter
--- OUTSIDE RECORDS SUMMARY | 2021-11-30 11:49 | XMS_ITS | Encounter Summary ---
:1955 Author Organization [facility] [place] [address] Care Team Providers Name Role Phone Chetna Loredo Primary Care Provider Unavailable Reason for Visit Reason Comments Follow-up 6 mth f/u & EKG Encounter Details Date Type Department Care Team Description 03/06/2018 Office Visit [facility] Funmilayo Eason Type 2 diabetes mellitus treated without insulin (HCC) (Primary Dx); Network Cardiology - MD Lenore Supraventricular tachycardia (HCC) [address] [phone] Social History Tobacco Use Types Packs/Day [...] Reading Time Taken Comments Blood Pressure 130/80 03/06/2018 10:03 AM EST Pulse 75 03/06/2018 10:03 AM EST Temperature - - Respiratory Rate - - Oxygen Saturation 94% 03/06/2018 10:03 AM EST Inhaled Oxygen Concentration - - Weight 117.5 kg (259 lb 2 oz) 03/06/2018 10:03 AM EST Height 180.3 cm (5' 11) 03/06/2018 10:03 AM EST Body Mass Index 36.14 03/06/2018 10:03 AM EST documented in this encounter Functional [...] encounter Progress Notes Funmilayo Eason MD - 03/06/2018 10:00 AM EST Past Medical History: 1. SVT -- R [...] mouth daily. 08/31/17 Yes Vasquez Krishnan II, TAQUERIA-C multivitamin capsule Take 1 capsule by mouth [...] Mckeon is here for f/u SVT. He has had some strange neurological events. He had an MRI for forgetfullness in September and was found to have subacute CVA. Work up was unremarkable. He was started on clopidogrel. He then had an event last month with difficulty speaking, altered mental status, generalized weakness. He didn't go to ED. He then had gradual improvement but notes change in personality and overall energy/motivation. He sleeps a lot and has fatigue. He has SHERMAN of late. This may be due to being sedentary. He denies CP. He denies significant palpitations, dizziness, syncope. He denies edema, orthopnea. ?? Physical Exam: Blood pressure 130/80, pulse 75, height 1.803 m (5' 11), weight 117.5 kg (259 lb 2 oz), SpO2 94 %. General: ??Well appearing and in no [...] joint deformities or inflammation ?? Data Reviewed: EKG, echo in hospital normal and EKG today normal ?? Assessment and Plan: 1. SVT - no symptoms recurrence and none on EKGs or telemetry. ??Intervals adequate on flecainide. ??No h/o AFib or AFL documented so no AC at this time (recent MRI with hemorhage in brain spontaneous). 2. CV risk - he is diabetic. ??He is asymptomatic. ??Neg stress test 2016. ??On plavix, statin, BB. Disposition: 6 months Electronically signed by: Funmilayo Eason MD 03/06/18 1232 documented in this encounter Miscellaneous Notes Nursing/Ancillary Notes - Heather Johnson CMA - 03/06/2018 10:00 AM EST I performed an EKG during today visit. Electronically signed by: Heather Johnson CMA 03/06/2018 11:56 AM Electronically signed by: Heather Johnson CMA 03/06/18 1156 documented in this encounter Plan of Treatment Not on filedocumented as of this encounter Procedures Procedure Name Priority Date/Time Associated Diagnosis Comme nts CARDIOLOGY SCAN 03/06/2018 9:01 Results f or this PM EST procedure are i n the results section. EKG - PERFORMED Routine 03/06/2018 11:17 Supraventricular Resu lts for this DURING CLINIC AM EST tachycardia (HCC) procedure are in VISIT the results section. documented in this encounter Results CARDIOLOGY SCAN (03/06/2018 9:01 PM EST) Narrative This result has an attachment that is no t available. Default Authenticator Emerson SCANNED DOCUMENTS EKG - PERFORMED BY CLINIC STAFF (03/06/2018 [...] ? QTC ?449 ? ms ? P Aledo ? 25 ?degrees ? R Aledo ? -46 ? degrees ? T Aledo ? 44 ?degrees ? Sinus rhythm Left [...] Interval 408 ms QTC 449 ms P Aledo 25 degrees R Aledo -46 degrees T Aledo 44 degrees Sinus rhythm Left anterior fascicular block When compared with ECG of 16-SEP-2017 10 :52, No significant change was found Confirmed by DR. FUNMILAYO EASON ([id number]) on 03/06/2018 8:54:06 PM Funmilayo Eason MD ECG SPECIAL Performing Organization Address City/State/ZIP Code Phon e Number MUSE documented in this encounter Visit Diagnoses Diagnosis Type 2 diabetes mellitus treated without insulin (HCC) - Primary Supraventricular tachycardia (HCC) Other specified cardiac dysrhythmias documented in this encounter Care Teams Meat Counter Worker Relationship Specialty Start Date End Date Chetna Loredo PCP - General Family Medicine 05/19/16 04/13/18 documented as of this encounter
--- OUTSIDE RECORDS SUMMARY | 2021-11-30 11:49 | XMS_ITS | Encounter Summary ---
:1955 Author Organization [facility] [place] [address] Care Team Providers Name Role Phone Neal Breen MD Primary Care Provider [phone] Reason for Referral Psychiatric (Routine) - Closed Specialty Diagnoses / Procedures Referred By Contact Refer red To Contact Psychology Diagnoses Moderate episode of recurrent major depressive disorder (HCC) Neal Breen Zz [id number] Neuropsychology - [address] [address] [place] [address] Fax: Referral ID Status Reason Start Date Expiration Date Visits V isits Requested Authorized [id number] Closed Specialty 12/13/2018 12/13/2019 1 1 Services Required Reason for Visit Reason Comments Follow-up Hypotension, weight loss, di arrhea Encounter Details Date Type Department Care Team Description 12/13/2018 Office Visit [facility] Neal Breen Episode of altered cognition (Primary Dx); Network Family MD Miguel Memory loss; Medicine - [address] Moderate episode of recurren t major depressive disorder (HCC) [address] [place] [phone] Social History Tobacco Use [...] Sign Reading Time Taken Comments Blood Pressure 99/63 12/13/2018 11:02 AM EDT Pulse 56 12/13/2018 11:02 AM EDT Temperature 36.6 ??C (97.8 ??F) 12/13/2018 11:02 AM EDT Respiratory Rate 20 12/13/2018 11:02 AM EDT Oxygen Saturation 97% 12/13/2018 11:02 AM EDT Inhaled Oxygen Concentration - - Weight 107 kg (236 lb) 12/13/2018 11:02 AM EDT Height 177.8 cm (5' 10) 12/13/2018 11:02 AM EDT Body Mass Index 33.86 12/13/2018 11:02 AM EDT documented in this encounter Functional [...] encounter Progress Notes Neal Breen MD - 12/13/2018 11:00 AM EDT Subjective: Dario Mckeon is a 63 y.o. male. Chief Complaint Patient presents with ??? Follow-up Hypotension, weight loss, diarrhea HPI: Pt's is present and assisted with giving the HPI. Patient has a h/o of CVA Patient is currently taking Topamax that was [...] thathe should receive a cognitive function test. However, the patient attributes his spaciness to depression. He is very frustrated with his inability to drive and that he is unable to go hunting currently. Overall, he is upset regarding his loss independence. His is very upset with current condition. Review of Systems Constitutional: Positive for weight loss. Gastrointestinal: Positive for diarrhea. Appetite suppression Musculoskeletal: Negative for falls. Neurological: Negative for weakness. Psychiatric/Behavioral: Positive for depression and memory loss. Past Medical History: Diagnosis Date ??? Acute CVA (cerebrovascular accident) (HCC) 09/16/2017 ??? Arthritis ??? 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 Diabetes mellitus (HCC) ??? Hyperlipemia ??? Hypertension ??? Ruptured appendix ??? Tachycardia Objective Vitals: 12/13/18 1102 BP: 99/63 Pulse: 56 Temp: 97.8 ??F (36.6 ??C) Resp: 20 SpO2: 97% PainSc: 0-Zero Position: Sitting Physical Exam Constitutional: No distress. Obese. ENT: Normal external ears and nose. Eyes: Conjunctivae are normal. Right eye exhibits no discharge. Left eye exhibits no discharge. Pulmonary/Chest: Effort normal. No respiratory distress. Neurological: Alert. Coordination normal. Skin: Skin is warm and dry. No rash noted Psychiatric: pleasantly interactive, somewhat flat affect Assessment: 1. Episode of altered cognition 2. Memory loss 3. Moderate episode of recurrent major depressive disorder (HCC) Ambulatory Referral To Neuropsychology Plan: 1. Episode of altered cognition -- Requesting [...] to talk to neurology regarding his Topamax. 2/3. Moderate episode of recurrent major depressive [...] enjoys while also being cognizant of his limitations. -- Follow-up in 2 months This document serves as a record of services personally performed by Neal Breen MD. It wascreated on their behalf by Yovany Zamarripa, a trained medical sonographer. The creation of this record is the provider's dictation and/or activities during this visit. Electronically signed by: Casandra Rai Scribe 12/13/2018 11:36 AM Greater than 50% of this 25 minute visit was spent in direct [id number] counseling and coordination of care. I agree the documentation is accurate and complete. Electronically signed by: Neal Breen MD 12/14/2018 11:52 AM Electronically signed by: Neal Breen MD 12/14/18 1153 documented in this encounter Plan of Treatment Not on filedocumented as of this encounter Visit Diagnoses Diagnosis Episode of altered cognition - Primary Memory loss Moderate episode of recurrent major depr essive disorder (HCC) documented in this encounter Care Teams Addressing Machine Operator Relationship Specialty Start Date End Date Neal Breen MD PCP - General Family Medicine 4/16/19 3/30/[address] [place] [address] documented as of this encounter
--- OUTSIDE RECORDS SUMMARY | 2021-11-30 11:50 | XMS_ITS | Encounter Summary ---
:1955 Author Organization [facility] [place] [address] Care Team Providers Name Role Phone Chetna Loredo Primary Care Provider Unavailable Encounter Details Date Type Department Care Team Description 11/09/2017 Hospital Encounter Diagnostic Imaging - Destini Hargrove, Jennifer [facility] [address] [place] [address] RO[address] [phone] [place] [address] (Wo rk) Social History Tobacco Use Types [...] Date/Time Associated Diagnosis Comme nts XR ABDOMEN 1 VIEW Routine 11/09/2017 5:04 PM Hematuria, Resu lts for this EDT unspecified type procedure a re in the results section. documented in this encounter Results XR ABDOMEN 1 VIEW (11/09/2017 5:04 PM EDT) Anatomical Region Laterality Modality Abdomen Digital Radiography Specimen (Source) Anatomical Collection Method Collection Time Re ceived Time Location / / Volume Laterality 11/09/2017 5:17 PM EDT Impressions 11/09/2017 5:18 PM EDT 1. Nonobstructive bowel gas pattern with scant scattered bowel gas. 2. No evidence of organomegaly. 3. A couple of faint tiny calcific densi ties are questioned projecting over the renal shadows. Cannot exclude small renal stones. 4. Calcifications projecting over the in ferior pelvis are favored to represent phleboliths. 5. Multilevel spondylosis of the lumbar spine, moderate in nature with mild degenerative involvement of the hips. No acute osseous findings. 6. Image portions of the lung bases are grossly clear. Narrative 11/09/2017 5:18 PM EDT X-RAY ABDOMEN (KUB), 1 VIEW, 11/09/2017 5:04 PM INDICATION: Hematuria, unspecified type \ \ R31.9 Hematuria, unspecified type ADDITIONAL HISTORY: None. COMPARISON: CT January 31, 2016 TECHNIQUE: Supine views of the upper and lower abdomen are presented. Procedure Note Vasquez Correia MD - 11/09/2017 X-RAY ABDOMEN (KUB), 1 VIEW, 11/09/2017 5 :04 PM INDICATION: Hematuria, unspecified type \ \ R31.9 Hematuria, unspecified type ADDITIONAL HISTORY: None. COMPARISON: CT January 31, 2016 TECHNIQUE: Supine views of the upper and lower abdomen are presented. CONCLUSION: 1. Nonobstructive bowel gas pattern with scant scattered bowel gas. 2. No evidence of organomegaly. 3. A couple of faint tiny calcific densi ties are questioned projecting over the renal shadows. Cannot exclude small renal stones. 4. Calcifications projecting over the in ferior pelvis are favored to represent phleboliths. 5. Multilevel spondylosis of the lumbar spine, moderate in nature with mild degenerative involvement of the hips. No acute osseous findings. 6. Image portions of the lung bases are grossly clear. Destini Hargrove REGISTERED HEALTH NURSE IMG DIAGNOSTIC IMAGING ORDER MASOUD documented in this encounter Visit Diagnoses Diagnosis Hematuria, unspecified type documented in this encounter Care Teams Laborer Driver Relationship Specialty Start Date End Date Chetna Loredo PCP - General Family Medicine 05/19/16 04/13/18 documented as of this encounter
--- OUTSIDE RECORDS SUMMARY | 2021-11-30 11:50 | XMS_ITS | Encounter Summary ---
:1955 Author Organization [facility] [place] [address] Care Team Providers Name Role Phone Chetna Loredo Primary Care Provider Unavailable Reason for Visit Reason Onset Date Comments COMPASS 2 day f/u call 09/20/2017 Encounter Details Date Type Department Care Team Description 09/20/2017 Telephone Care Coordination - Mary Grace Mckeon ASS 2 day f/u call Jennifer Richard RN [address] [place] [phone] [facility] [phone] [place] [address] Social History Tobacco Use Types [...] this encounter Miscellaneous Notes Telephone Encounter - Mary Grace Mckeon RN - 09/20/2017 1:27 PM EDT *COMPASS 2 day follow-up phone call completed on: 09/20/17 (spoke with Mr. Mckeon) *Medication reconciliation completed: Yes - No discrepancies, issues, or concerns identified. *Any new stroke symptoms since being discharged?: Pt denies. *PCP f/u appointment?: 09/28/[address] Chetna Loredo *Pt has neurology f/u appointment scheduled with Dr. Tr Sher 09/20/17 - Pt has declined 7-14 day COMPASS f/u appointment stating that he would prefer to f/u with his own neurologist. *Any falls after stroke?: None reported. *Any home health services or outpatient therapy services post discharge?: None were recommended at hospital discharge. *Pt was reminded of the following information: These are signs and symptoms of a stroke and would necessitate that you call 911 and go to the emergency department. Reminded to think of the word FAST. Face. Look for an uneven smile. Arm. Check if one arm is weak or numb. Speech. Listen for slurred speech. Time. Call 911 immediately. *Any concerns for the NATACHA: None identified. Electronically signed by: Mary Grace Mckeon RN 09/20/17 1339 documented in this encounter Plan of Treatment Not on filedocumented as of this encounter Visit Diagnoses Not on filedocumented in this encounter Care Teams Clothing Busheler Relationship Specialty Start Date End Date Chetna Loredo PCP - General Family Medicine 05/19/16 04/13/18 documented as of this encounter
--- OUTSIDE RECORDS SUMMARY | 2021-11-30 11:50 | XMS_ITS | Encounter Summary ---
:1955 Author Organization [facility] [place] [address] Care Team Providers Name Role Phone Chetna Loredo Primary Care Provider Unavailable Reason for Visit Reason Onset Date Comments Prior Authorization 10/03/2017 Synvisc (Series of 3 ) - No PA Required Encounter Details Date Type Department Care Team Description 10/03/2017 Telephone Pharmacy Heather Sheridan Prior Authorization [facility] Melody Isbell (Synvisc (Series of 3) - [facility] No PA Required) [place] [place] [address] [address] [place], [place] [phone] Social History Tobacco Use Types Packs/Day Years [...] encounter Miscellaneous Notes Telephone Encounter - Heather Sheridan, lodging facilities manager - 10/05/2017 2:12 PM EDT Synvisc (Series of 3) - No PA Required: Patient is ready to schedule. [facility] received Benefits Verification results for Synvisc series of 3, for right knee from Susy Martínez PA-C. It was determined that a Prior Authorization IS NOT required Benefits Verification results are: Additional Notes Rep said there is no policy future termination date and no coverage breakage. Rep said policy runs based on Calendar year and policy original effective date is 04/17/2013. Rep said correct and incorrect Drug and Procedure Coverage: ??? Synvisc (J7325) is covered @ 100%. ??? 88361 is covered @ 100% ??? Specialist office visit is covered @ 100% after copay. ??? Provider can buy and bill the Medication. ??? There is no policy exclusion for code J7325. ??? There is no tier level on the policy. Prior Authorization Requirements: ??? per Medical and Authorization Department rep, Authorization is not required for both the Codes. ??? Predetermination is not required for both the codes. ??? PCP referral is not required for Specialist visit. Patient responsibility: ??? 0[place] 75[address] and J7325. ??? 20.00 Specialist office visit copay and no copay for codes. ??? No Deductible and No MOOP. Copay will not be waived off. ??? Plan has no Annual maximum. Billing Information: ??? All claims have to be submitted to there local within 180 Days from the date of service. Call Information: Spoke with Phil. Hernandez at [facility] ([phone]) in the Benefits Dept as on 10/04/2017. Call Reference #: ( [id number] ) Spoke with Louise. Das at [facility] ([phone]) in the Auth Dept as on 10/04/2017. Call Reference # ([id number]) . SI*O Heather Sheridan CPhT, [facility] Electronically signed by: Heather Sheridan CPhT 10/05/17 1413 Telephone Encounter - Heather Sheridan CPhT - 10/03/2017 2:51 PM EDT Synvisc (Series of 3) - Benefits Verification Submitted [facility] received a Benefits Verification request for Synvisc series of 3, for right knee from Susy Martínez PA-C. The Benefits Verification was submitted to [employer] web portal on 10/03/17. Heather Sheridan CPhT, [facility] Electronically signed by: Heather Sheridan CPhT 10/03/17 1451 documented in this encounter Plan of Treatment Not on filedocumented as of this encounter Visit Diagnoses Not on filedocumented in this encounter Care Teams Airplane Rigger Relationship Specialty Start Date End Date Chetna Loredo PCP - General Family Medicine 05/19/16 04/13/18 documented as of this encounter
--- OUTSIDE RECORDS SUMMARY | 2021-11-30 11:50 | XMS_ITS | Encounter Summary ---
:1955 Author Organization [facility] [place] [address] Care Team Providers Name Role Phone Chetna Loredo Primary Care Provider Unavailable Reason for Visit Reason Comments Right Knee Problem 61 yo male ambulatory to [facility] without aids. Presents today for third Synvisc injection righ t knee. Medication (Routine) - Closed Specialty Diagnoses / Procedures Referred By Contact Refer red To Contact Pharmacy Diagnoses Primary osteoarthritis of right knee Nasir Sanchez PA-C [facility] [address] [place] [address] [address] [place] [address] Phone: Referral ID Status Reason Start Expiration Visits Visits Date Date Requested Authorized [id number] Closed Medication 02/22/2017 02/22/2018 3 3 authorization Encounter Details Date Type Department Care Team Description 03/30/2017 Clinical Support Orthopaedics - Nasir Abrams, Primary osteoarthritis [address] [address] [address] of right knee (Primary [address] Dx) [address] [address] [phone] [place] [address] Social History Tobacco Use Types Packs/Day Years Used Date Former Smoker Cigarettes Quit: 04/16/19 89 Alcohol Use Standard Drinks/Week Comments Yes 0 (1 standard drink = 0.6 oz pure alcoho l) occassionally Alcohol Habits Answer Date Recorded How often do you have a drink containing alcohol? Monthly or less 04/22/2020 How many drinks containing alcohol do you have on a 1 or 2 04/22/2020 typical day when you are drinking? How often do you have six or more drinks on one Not asked occasion? Comment: occassionally 01/31/2016 Sex Assigned at Date Recorded Not on file documented as of this encounter Functional Status Functional Status Response Date of Assessment Is the person deaf or does he/she have serious difficulty No 11/12/2016 hearing? Is this person blind or does he/she have serious No 11/12/2016 difficulty seeing even when wearing glasses? Does this person have serious difficulty walking or No 11/12/2016 climbing stairs? (5 years old or older) Does this person have difficulty dressing or bathing? (5 No 11/12/2016 years old or older) Because of a physical, mental, or emotional condition, No 11/12/2016 does this person have difficulty doing errands alone such as visiting a doctor's office or shopping? (15 years old and older) Cognitive Status Response Date of Assessment Because of a physical, mental, or emotional condition, No 11/12/2016 does this person have serious difficulty concentrating, remembering, or making decisions? (5 years old or older) documented as of this encounter Progress Notes Nasir Sanchez PA-C - 03/30/2017 2:40 PM EST Mike Bishop 61 y.o. male Chief Complaint: Knee Arthritis HPI: [...] medication Patient Given right Knee Synvisc Injection. With steroid The patient should avoid exercise for two days following the injection. Observe for signs of infection, call if any redness,warmth, swelling or increased pain Application ice, 10 - 15 minutes -once or twice today, once or twice tomorrow. Call if any change in symptoms Follow up as planned 1. Primary osteoarthritis of right knee Electronically signed by: Nasir Sanchez PA-C 03/30/17 1500 documented in this encounter Miscellaneous Notes Addendum Note - Nasir Sanchez PA-C - 03/30/2017 2:40 PM EST Addended by: NASIR SANCHEZ on: 03/30/2017 03:17 PM Modules accepted: Orders documented in this encounter Plan of Treatment Not on filedocumented as of this encounter Visit Diagnoses Diagnosis Primary osteoarthritis of right knee - P rimary documented in this encounter Administered Medications Inactive Administered Medications - up to 3 most recent administrations Medication Order MAR Action Action Date Dose Rate Site hylan (SYNVISC) injection 16 mg Given 03/30/2017 2:59 PM EST 16 mg 16 mg Weekly, Intra-articular, First dose on Mon03/31/17 at 0900, For 3 doses triamcinolone acetonide (KENALOG-40) 40 mg/mL Given 2:59 PM EST 40 mg injection 40 mg 40 mg Once, Intra-articular, On Re 03/30/17 at 1545, For 1 dose documented in this encounter Care Teams Coal Sample Tester Relationship Specialty Start Date End Date Chetna Loredo PCP - General Family Medicine 05/19/16 04/13/18 documented as of this encounter
--- OUTSIDE RECORDS SUMMARY | 2021-11-30 11:50 | XMS_ITS | Encounter Summary ---
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
--- OUTSIDE RECORDS SUMMARY | 2021-11-30 11:50 | XMS_ITS | Encounter Summary ---
:1955 Author Organization [facility] [place] [address] Care Team Providers Name Role Phone Chetna Loredo Primary Care Provider Unavailable Reason for Visit Reason Comments Left Knee Problem Patient presents today for a n evaluation of the left knee. Encounter Details Date Type Department Care Team Description 05/10/2017 Office Visit Orthopaedics - Nasir Abrams, Left knee pain, unspecified chronicity (Primary Dx); [address] [facility] [address] PA-C History of partial knee replacement; [address] [phone] [address] [facility] [address] Effusion of left knee [phone] [place] [address] Social History Tobacco Use Types Packs/Day Years [...] Reading Time Taken Comments Blood Pressure 110/71 05/10/2017 1:16 PM EST Pulse 67 05/10/2017 1:16 PM EST Temperature 36.6 ??C (97.8 ??F) 05/10/2017 1:16 PM EST Respiratory Rate - - Oxygen Saturation - - Inhaled Oxygen Concentration - - Weight 111.1 kg (245 lb) 05/10/2017 1:16 PM EST Height 179.1 cm (5' 10.5) 05/10/2017 1:16 PM EST Body Mass Index 34.66 05/10/2017 1:16 PM EST documented in this encounter Functional [...] encounter Progress Notes Nasir Vega PA-C - 05/10/2017 1:00 PM EST Mr. Dario Mckeon [id number] 1955 (age: 61 y.o.) Return Visit Referred by: Self Referral No address on file Chief Complaint: Chief Complaint Patient presents with ??? Left Knee Problem Patient presents today for an evaluation of the left knee. History of Present Illness: Ongoing left knee pain swelling, effusions - partial knee arthroplasty December 2016 - recent dental decay with possible tooth abscess No fevers No night sweats No schaking chills Insulin dependent diabetic Finished synvisc in right knee recently No recent injuries Was seen recently in ER for chronic back pain X-RAY LEFT KNEE (3 VIEWS), 03/23/2017 2:30 PM INDICATION: pain/swelling no injury \ \ M17.0 Primary osteoarthritis of both knees COMPARISON: Knee radiograph 02/22/2017 CONCLUSION: ?? 1. Medial unicompartmental arthroplasty without evidence of hardware complication. Alignment is similar to prior. 2. No acute fractures or malalignment. 3. Small joint effusion with debris. 4. Mild degenerative changes of the lateral and patellofemoral compartments. Past Medical History: Diagnosis Date ??? Diabetes mellitus (HCC) ??? Hyperlipemia ??? Hypertension ??? Ruptured appendix ??? Tachycardia Past Surgical History: Procedure Laterality Date ??? APPENDECTOMY ??? ROBOTIC YOUSIF UNICOMPARTMENTAL KNEE REPLACEMENT Left 11/01/2016 Procedure: MEDIAL YOUSIF - UNICOMPARTMENTAL KNEE REPLACEMENT - ROBOTIC; Surgeon: Miguelito Manuel MD; Location: OUTPATIENT OR; Service: Orthopedics; Laterality: Left; Social History Social History ??? Marital status: Single Spouse name: N/A ??? Number of children: N/A ??? Years of education: N/A Occupational History ??? Not on file. Social History Main Topics ??? Smoking status: Former Smoker Types: Cigarettes Quit date: 04/16/1989 ??? Smokeless tobacco: Never Used ??? Alcohol use Yes Comment: occassionally ??? Drug use: No ??? Sexual activity: Not on file Other Topics Concern ??? Not on file Social History Narrative ??? No narrative on file Allergies Allergen Reactions ??? Morphine Anaphylaxis (ALLERGY) ??? Sulfamethoxazole Anaphylaxis (ALLERGY) ??? Sulfasalazine Itching / Pruritis (ALLERGY/intolerance) Review of Systems: ROS Home Medications Medication Sig Dispense Refill ??? aspirin 81 MG EC tablet *ANTIPLATELET* Take 81 mg by mouth daily. ??? atorvastatin (LIPITOR) 20 MG tablet Take 20 mg by mouth daily. ??? DEXT 70/POLYCARBOPHIL/PEG/NACL (ARTIFICIAL TEAR SOLUTION OPHT) Place 1 drop into both eyes as needed. ??? flecainide (TAMBOCOR) 100 MG tablet Take 100 mg by mouth every 12 hours. ??? metFORMIN (GLUCOPHAGE) 500 MG tablet Take 500 mg by mouth 2 times daily with meals. ??? metoPROLOL tartrate (LOPRESSOR) 50 MG tablet Take 50 mg by mouth 2 times daily. ??? multivitamin capsule Take 1 capsule by mouth daily. ??? ONETOUCH DELICA LANCETS 30 gauge Misc ??? ONETOUCH ULTRA TEST Strp ??? vortioxetine (TRINTELLIX) 5 mg tablet Take 10 mg by mouth daily. ??? aspirin 325 MG EC tablet *ANTIPLATELET* Take 1 tablet (325 mg total) by mouth 2 times daily for 30 days. 60 tablet 0 Physical Exam: Physical Exam Musculoskeletal: Left knee: He exhibits effusion. Right Knee Exam Right knee exam is normal. Range of Motion The patient has normal right knee ROM. Other Sensation: normal Pulse: present Swelling: none Left Knee Exam Range of Motion The patient has normal left knee ROM. Alignment neutral Tests Emili: Anterior - negative Drawer: Anterior - negative Pivot Shift: negative Patellar Apprehension: negative Other Erythema: absent Pulse: present Swelling: moderate Effusion: effusion present Comments: No redness No warmth No calf tenderness Right Hip Exam Right hip exam is normal. Range of Motion The patient has normal right hip ROM. Muscle Strength The patient has normal right hip strength. Other Sensation: normal Pulse: present Left Hip Exam Left hip exam is normal. Range of Motion The patient has normal left hip ROM. Muscle Strength The patient has normal left hip strength. Other Sensation: normal Vitals: Vitals: 05/10/17 1316 05/10/17 1317 BP: 110/71 Pulse: 67 Temp: 97.8 ??F (36.6 ??C) PainSc: 4-Four (moderate) Height: 1.791 m (5' 10.5) Weight: 111.1 kg (245 lb) BMI (Calculated): 34.7 Special Investigations- Review of Diagnostic Tests: Radiologic Studies: I have personally reviewed plain x-ray images from [facility].prosthesis well placed, no signs of loosening Lab Studies: I have not reviewed any lab test results for this patient. Assessment: 1. Left knee pain, unspecified chronicity CBC and differential SEDIMENTATION RATE (ESR) CRP, High Sensitivity Culture,Body Fld Bottle Gram stain SYNOVIAL FLD/CRYSTAL EXAM Culture,Body Fld Bottle Gram stain SYNOVIAL FLD/CRYSTAL EXAM 2. History of partial knee replacement CBC and differential SEDIMENTATION RATE (ESR) CRP, High Sensitivity Culture,Body Fld Bottle Gram stain SYNOVIAL FLD/CRYSTAL EXAM Culture,Body Fld Bottle Gram stain SYNOVIAL FLD/CRYSTAL EXAM 3. Effusion of left knee CBC and differential SEDIMENTATION RATE (ESR) CRP, High Sensitivity Culture,Body Fld Bottle Gram stain SYNOVIAL FLD/CRYSTAL EXAM Culture,Body Fld Bottle Gram stain SYNOVIAL FLD/CRYSTAL EXAM Plan: 1. Sterile prep/consent/time out aspiration 80 cc blood tinged fluid, no pus 2. Aspirate sent for : Culture Gram stain Cell count Crystal analysis 3. Cbc, sed rate, CRP, drawn today 4. 7 days Keflex 500 mg qid 5. Follow up dentist for tooth decay issue 6. Ice/rest/observe for signs of infection 7. kenalog one mg 40 mg/cc 8. Watch sugar carefully - adjust insulin as needed 9. Call if any change in symptoms 10. Will call patient with lab results. Follow up: No Follow-up on file. No orders of the defined types were placed in this encounter. Electronically signed by: Nasir Vega PA-C 05/10/2017 1:21 PM Electronically signed by: Nasir Vega PA-C 05/10/17 1439 documented in this encounter Plan of Treatment Not on filedocumented as of this encounter Procedures Procedure Name Priority Date/Time Associated Diagnosis Comme nts SYNOVIAL Routine 05/10/2017 2:13 PM Left knee pain, Result s for this FLD/CRYSTAL EXAM EST unspecified procedure a re in chronicity the results History of partial section. knee replacement Effusion of left knee CULTURE,BODY FLD Routine 05/10/2017 2:13 PM Left knee pain, Re sults for this BOTTLE EST unspecified procedure are i n chronicity the results History of partial section. knee replacement Effusion of left knee GRAM STAIN Routine 05/10/2017 2:13 PM Left knee pain, Result s for this EST unspecified procedure are i n chronicity the results History of partial section. knee replacement Effusion of left knee documented in this encounter Results CRP, High Sensitivity (05/10/2017 2:56 PM EST) P athologist Signature C-Reactive 9.7 MG/L 05/10/2017 [place] Protein 6:17 PM EST [facility] Comment: Risk According to AHA/CDC Guidelines: <1.0 ? Low Cardiovascular Risk 1.0-3.0 ??Average Cardiovascular Risk >3.0 ? High Cardiovascular Risk Specimen Anatomical Collection Method / Collection Time Recei ericka Time (Source) Location / Volume Laterality Blood specimen Venipuncture / 05/10/2017 2:56 05/10/19 18 2:57 (specimen) Unknown PM EST PM EST Nasir Gary PA-C LAB BLOOD ORDERABLES Performing Organization Address City/[facility]/ZIP Code Phon e Number [facility] CLIA# [id number] [place] [address] [facility] [place] SEDIMENTATION RATE (ESR) (05/10/2017 2:56 PM EST) P athologist Signature Sed Rate 10 0 - 20 05/10/2017 [facility] MM/HR 3:56 PM EST [facility] Specimen Anatomical Collection Method / Collection Time Recei ericka Time (Source) Location / Volume Laterality Blood specimen Venipuncture / 05/10/2017 2:56 05/10/19 18 2:57 (specimen) Unknown PM EST PM EST Nasir Gary PA-C LAB BLOOD ORDERABLES Performing Organization Address City/[facility]/ZIP Code Phon e Number [facility] CLIA# [id number] [place] [address] [place] [address] SYNOVIAL FLD/CRYSTAL EXAM (05/10/2017 2:13 PM EST) Patholo gist Method Time Signature Crystals, Body No None Seen 05/10/2017 [place] Fluid gout/pseudog 6:51 PM EST [facility] out crystals PATHOL LABS seen Comment: LEFT KNEE Specimen Anatomical Collection Method Collection Time Receive d Time (Source) Location / / Volume Laterality Synovial fluid STRUCTURE OF LEFT 05/10/2017 2:13 PM 2:40 specimen KNEE JOINT / EST PM EST (specimen) Unknown Nasir Gary PA-C BODY FLUIDS AND STOOLS (NON- MICRO) ORDERABLES Performing Organization Address City/[facility]/ZIP Code Phon e Number [facility] [place] CLIA# [id number] [place] [address] [facility] [place] Gram stain (05/10/2017 2:13 PM EST) Patholo gist Method Time Signature Gram Stain Negative 05/10/2017 [place] Leukocytes/WBC 6:23 PM EST [facility] Gram Stain No organisms 05/10/2017 [place] seen 6:23 PM [facility] Specimen Anatomical Collection Method Collection Time Receive d Time (Source) Location / / Volume Laterality Other STRUCTURE OF LEFT 05/10/2017 2:13 PM 04/18 2:40 KNEE JOINT / EST PM EST Unknown Nasir Vega PA-C MICROBIOLOGY - GENERAL ORDER MASOUD Performing Organization Address City/State/ZIP Code Phon e Number [facility] [place] CLIA# [id number] [place] [address] [facility] [place] Culture,Body Fld Bottle (05/10/2017 2:13 PM EST) [facility] Method Time Signature Body Fluid No growth 05/15/2017 [place] Bottle Culture in 5 days 3:05 PM [facility] ID [facility] Specimen Anatomical Collection Method Collection Time Receive d Time (Source) Location / / Volume Laterality Fluid sample KNEE REGION 05/10/2017 2:13 PM 8 2:40 (specimen) STRUCTURE / EST PM EST Unknown Nasir Vega PA-C MICROBIOLOGY - GENERAL ORDER MASOUD Performing Organization Address City/[facility]/ZIP Code Phon e Number [facility] [place] CLIA# [id number] [place] [address] [facility] [place] documented in this encounter Visit Diagnoses Diagnosis Left knee pain, unspecified chronicity - Primary History of partial knee replacement Effusion of left knee documented in this encounter Care Teams Can Closing Machine Operator Relationship Specialty Start Date End Date Chetna Loredo PCP - General Family Medicine 05/19/16 04/13/18 documented as of this encounter
--- OUTSIDE RECORDS SUMMARY | 2021-11-30 11:50 | XMS_ITS | Encounter Summary ---
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 [M47.817] Procedures [place] INJ DX/THER AGNT PARAVERT FACET JOINT,IMG GUIDE,LUMBAR/SAC, 1ST LEVEL [place] INJ DX/THER AGNT PARAVERT FACET JOINT,IMG GUIDE,LUMBAR/SAC, 2ND LEVEL [place] INJ DX/THER AGNT PARAVERT FACET JOINT,IMG GUIDE,LUMBAR/SAC, ADD LEVEL LUMBAR/THORACIC MEDIAL BRANC H BLOCK per 07/14 orders-lj Referral ID Status Reason Start Date Expiration Date Visits Requ ested Visits Authorized [id number] 1 1 Encounter Details Date Type Department Care Team Description 08/02/2017 Surgery [facility] Perioperative Petr Brito beatrice LUMBAR/THORACIC MEDIAL Department BRANCH BLOCK (Right [address] L2-5) [place], [place] [address] Surgery Details Date/Time Status Location OR Service Patient Case Class Case Tr auma Class Type Case? 08/02/17 Posted [facility]:00 PM [facility] RM 3 Medicine (OP/Surg PAIN Admit-Sche MANAGEMENT d) (>) 5 days Panel 1 Procedure [facility] Anes Op Region Wound Class Commen ts LUMBAR/THORACIC MEDIAL BRANCH BLOCK N/A Local Spine Lumba r Clean (Right L2-5) Surgeon Surgeon Role Service Panel Petr Brito Primary Rehab Medicine 1 documented in this encounter Social History [...] Sign Reading Time Taken Comments Blood Pressure 137/83 08/02/2017 1:50 PM EDT Pulse 74 08/02/2017 1:50 PM EDT Temperature 36.8 ??C (98.2 ??F) 08/02/2017 1:50 PM EDT Respiratory Rate - - Oxygen Saturation 94% 08/02/2017 1:50 PM EDT Inhaled Oxygen Concentration - - [...] Sig Dispensed Refills Start Date End Date aspirin 325 MG EC tablet Take 1 tablet (325 60 tablet 0 09/16/2017 *ANTIPLATELET* mg total) by mouth 2 times daily for 30 days. aspirin 81 MG EC tablet Take 81 mg by 0 09/18/2017 *ANTIPLATELET* mouth daily. atorvastatin (LIPITOR) 20 Take 20 mg by 0 07/31/2018 MG tablet mouth daily. cyclobenzaprine (FLEXERIL) Take 1 tablet (10 20 tablet 0 07/08/2021 10 MG tablet mg total) by mouth 2 (two) times daily as needed for up to [address] 1 drop into 0 019 70/POLYCARBOPHIL/PEG/NACL both eyes as (ARTIFICIAL TEAR SOLUTION needed. OPHT) flecainide (TAMBOCOR) 100 Take 100 mg by 0 04/26/2018 MG tablet mouth every 12 hours. metFORMIN (GLUCOPHAGE) 500 Take 500 mg by 0 08/0307/31/2018 MG tablet mouth 2 times daily with meals. metoPROLOL tartrate Take 50 mg by 0 (LOPRESSOR) 50 MG tablet mouth 2 times daily. multivitamin capsule Take 1 capsule by 0 03/01/2021 mouth daily. naproxen (NAPROSYN) 500 MG Take 1 tablet (500 60 tablet 1 0 06/30/2017 03/06/2018 tablet mg total) by mouth 2 times daily. ONETOUCH DELICA LANCETS 30 0 7 09/16/2017 gauge [facility] [place] ONETOUCH ULTRA TEST Strp 0 03/27/2017 09/16/2017 vortioxetine (TRINTELLIX) 5 Take 10 mg by 0 08/31/2017 mg tablet mouth daily. documented as of this encounter Miscellaneous Notes Op Note - Petr Brito - 08/02/2017 3:00 PM EDT PATIENT: Dario Mckeon. . PROCEDURE DATE: 08/02/2017. PRE-OPERATIVE DIAGNOSIS: Lumbar spondylosis without myelopathy or radiculopathy. POST-OPERATIVE DIAGNOSIS: Same. PROCEDURE: Diagnostic lumbar medial branch / dorsal ramus block with fluoroscopic guidance. LEVELS: L2, L3, L4, L5. SIDE: Right. SURGEON: Petr Brito MD. ANESTHESIA: None. BLOOD LOSS / SPECIMENS: None. INDICATION: Dario Mckeon presents for diagnostic right lumbar medial branch / dorsal ramus nerve blocks. The patient's history has been reviewed and remains accurate without interval change. There has been no new weakness, bowel / bladder dysfunction, fevers, pharmacological allergies or types of therapy that would change the appropriateness of the plan. The patient was re-examined and his physiologic condition has not changed significantly since his most recent evaluation. The condition still exists thatmakes this procedure necessary and the treatment plan remains the same without new options for care. The potential risks (outlined on consent form), benefits (localization of pain generator to guide further recommendations to improve pain control and function) and alternatives (including but not limited to conservative management and doing nothing) were reviewed. It is understood that there is no certainty it will be effective. AQA to the patient's satisfaction and the patient wishes to proceed as planned. DESCRIPTION: After obtaining written informed consent, the patient was brought into the procedure room and placedon the procedure table in prone position with padding for comfort and stability. Operators and assistants were wearing hats, masks and sterile gloves. A time out was taken to confirm the correct patient and procedure site. The operative site was visualized on fluoroscopic view, then the skin overlyingthe operative site was prepped widely and draped in the usual sterile manner. Weinberg's points were visualized at the right L3, L4, L5 transverse processes and sacral ala on fluoroscopic view. Then 25 gauge x 3.5 spinal needles were inserted and carefully directed toward the desired targets using intermittent fluoroscopic guidance until the needle tips contacted periosteum. AP and lateral views were obtained confirming position of the needle tips at Weinberg's points. After aspirations absent of heme or CSF, 0.5 cc preservative-free 0.5% bupivacaine per level was injected slowly and uneventfully. The needles were removed intact, and hemostasis was maintained at the skin. Meaningful verbal contact was maintained with the patient throughout the procedure. The patient tolerated the procedure well. The patient was escorted to the recovery area where he was monitored for anappropriate period of time before being discharged in stable condition under the care of a responsible adult with discharge instructions and a pain log to assess response to the procedure. There were no immediate complications associated with the procedure. Electronically signed by: Petr Brito MD 08/02/17 7264 documented in this encounter Plan of Treatment Not on filedocumented as of this encounter Procedures Procedure Name Priority Date/Time Associated Diagnosis Comme nts LUMBAR/THORACIC 08/02/2017 2:57 PM Spondylosis of MEDIAL BRANCH EDT lumbosacral region BLOCK without myelopathy or radiculopathy OR FLUORO IMAGING Routine 08/02/2017 1:51 PM Resu lts for this EDT procedure are i n the results section. POCT GLUCOSE Routine 08/02/2017 1:49 PM Results f or this BATTERY DEVICE EDT procedure are in the results section. documented in this encounter Results OR FLUORO IMAGING (08/02/2017 1:51 PM EDT) Specimen (Source) Anatomical Location Collection Method / Collectio n Time Received Time / Laterality Volume Narrative COLTEN - 08/02/2017 1:51 PM EDT This exam was automatically finalized an d will not be resulted. Petr Brito IMG DIAGNOSTIC IMAGING ORDER MASOUD Performing Organization Address City/State/ZIP Code Phon e Number COLTEN POCT Glucose (08/02/2017 1:49 PM EDT) P athologist Signature POC GLUCOSE 130 70 - 150 [place] mg/dL Specimen Anatomical Collection Method Collection Time Receive d Time (Source) Location / / Volume Laterality 08/02/2017 1:49 PM 8 1:51 EDT PM EDT Petr Candelariael POCT ORDERABLES - DEVICE Performing Organization Address City/State/ZIP Code Phon e Number [place] documented in this encounter Visit Diagnoses Diagnosis Spondylosis of lumbosacral region withou t myelopathy or radiculopathy - Primary Spondylosis of lumbosacral region withou t myelopathy or radiculopathy documented in this encounter Admitting Diagnoses Diagnosis Spondylosis of lumbosacral region withou t myelopathy or radiculopathy documented in this encounter Administered Medications Inactive Administered Medications - up to 3 most recent administrations Medication Order MAR Action Action Date Dose Rate Site bupivacaine (MARCAINE) 0.5 % (5 Given 08/02/2017 3:01 PM EDT 4 m Ls Other mg/mL) injection Intra-op PRN, Starting on Mon08/02/17 at 1501, Anesthesia Intra-op documented in this encounter Active and Recently Administered Medications Times are shown in EDT. PRN Medication Order 07/31/2017 08/01/2017 08/02/2017 bupivacaine (MARCAINE) 0.5 % (5 mg/mL) injection (CANCELED) 1501 (Given - Provider: Petr Brito - Comment: Rt L2-5 MBB-6 ml waste) Intra-op PRN, Starting 08/02/17 at 1501, Anesthesia Intra-op documented in this encounter Care Teams Dredge Mate Relationship Specialty Start Date End Date Chetna Loredo PCP - General Family Medicine 05/19/16 04/13/18 documented as of this encounter
--- OUTSIDE RECORDS SUMMARY | 2021-11-30 11:50 | XMS_ITS | Encounter Summary ---
:1955 Author Organization [facility] [place] [address] Care Team Providers Name Role Phone Chetna Loredo Primary Care Provider Unavailable Reason for Visit Reason Onset Date Comments Gary - blood thinner 10/27/2017 Encounter Details Date Type Department Care Team Description 10/27/2017 Telephone Orthopaedics - Nasir Abrams Caruso - blood thinner [address] [facility] [address] [place] [address] [place] [address] [place] [address] Social History Tobacco Use Types Packs/Day Years [...] this encounter Miscellaneous Notes Telephone Encounter - Radha Barrett CMA - 11/01/2017 10:12 AM EDT Attempted to call patient, no answer. If patient returns call, please make him aware of directives below. Electronically signed by: Radha Barrett CMA 11/01/17 1012 Telephone Encounter - Radha Barrett CMA - 10/31/2017 4:42 PM EDT Attempted to call patient, no answer. Electronically signed by: Radha Barrett CMA 10/31/17 1642 Telephone Encounter - Radha Barrett CMA - 10/31/2017 11:19 AM EDT Attempted to call patient, no answer. Electronically signed by: Radha Barrett CMA 10/31/17 1119 Telephone Encounter - Radha Barrett CMA - 10/30/2017 8:16 AM EDT Attempted to call patient, no answer. Left message. If patient returns call, please inform him that he does not need to stop Plavix before Synvisc. Electronically signed by: Radha Barrett CMA 10/30/17 0817 Telephone Encounter - Nasir Vega PA-C - 10/27/2017 7:19 PM EDT No need to stop plavix before viscosupplementation, please notify patient Electronically signed by: Nasir Vega PA-C 10/27/17 1920 Telephone Encounter - Radha Barrett CMA - 10/27/2017 2:04 PM EDT Called and spoke to patient after confirming two patient identifiers. Patient stated he would like to know if he should stop blood thinner (Plavix) before Synvisc injections. Informed patient I will forward the message to Nasir to advise. Patient stated appreciation. Nasir, please advise. Electronically signed by: Radha Barrett CMA 10/27/17 1408 Telephone Encounter - Saba Martínez CNA - 10/27/2017 1:41 PM EDT Patient calling stating he is taking a new blood thinner Plavix and needs to know if he should stop taking this for his upcoming Synvisc injections? Please advise [phone] documented in this encounter Plan of Treatment Not on filedocumented as of this encounter Visit Diagnoses Not on filedocumented in this encounter Care Teams Guidance Consultant Relationship Specialty Start Date End Date Chetna Loredo PCP - General Family Medicine 05/19/16 04/13/18 documented as of this encounter
--- OUTSIDE RECORDS SUMMARY | 2021-11-30 11:50 | XMS_ITS | Encounter Summary ---
:1955 Author Organization [facility] [place] [address] Care Team Providers Name Role Phone Chetna Loredo Primary Care Provider Unavailable Reason for Visit Medication (Routine) - Closed Specialty Diagnoses / Procedures Referred By Contact Refer red To Contact Pharmacy Diagnoses Primary osteoarthritis of right knee Nasir Vega PA-C [facility] [address] [place] [address] [address] [place], [place] [address] [address] [place] [address] Phone: Referral ID Status Reason Start Expiration Visits Visits Date Date Requested Authorized [id number] Closed Medication 10/02/2017 10/02/2018 3 3 authorization Encounter Details Date Type Department Care Team Description 11/09/2017 Clinical Support Orthopaedics - Nasir Abrams, Primary osteoarthritis [address] [place] of right knee (Primary [address] [place]) [address] [place] [phone] [place], [place] [address] Social History Tobacco Use Types Packs/Day Years [...] Sign Reading Time Taken Comments Blood Pressure 135/76 11/09/2017 1:46 PM EDT Pulse 62 11/09/2017 1:46 PM EDT Temperature 36.7 ??C (98.1 ??F) 11/09/2017 1:46 PM EDT Respiratory Rate - - Oxygen Saturation - - Inhaled Oxygen Concentration - - Weight 120.7 kg (266 lb) 11/09/2017 1:46 PM EDT Height 180.3 cm (5' 11) 11/09/2017 1:46 PM EDT Body Mass Index 37.1 11/09/2017 1:46 PM EDT documented in this encounter Functional [...] encounter Progress Notes Nasir Vega PA-C - 11/09/2017 1:40 PM EDT Mike Bishop 62 y.o. male [...] knee Electronically signed by: Nasir Vega PA-C 11/09/17 1419 documented in this encounter Plan of Treatment Not on filedocumented as of this encounter Visit Diagnoses Diagnosis Primary osteoarthritis of right knee - P rimary documented in this encounter Care Teams Manager Marketing Sales Relationship Specialty Start Date End Date Chetna Loredo PCP - General Family Medicine 05/19/16 04/13/18 documented as of this encounter
--- OUTSIDE RECORDS SUMMARY | 2021-11-30 11:50 | XMS_ITS | Encounter Summary ---
:1955 Author Organization [facility] [place] [facility] [place] [address] Care Team Providers Name Role Phone Chetna Loredo Primary Care Provider Unavailable Encounter Details Date Type Department Care Team Description 08/16/2017 Orders Only [facility] Bob Arana SVT (sup raventricular Network Cardiology - [place], ISO COORDINATOR tachycardia) (HCC) [facility] (Primary Dx) [address] [address] [place] [address] Social History Tobacco Use Types Packs/Day Years [...] Results EKG - PERFORMED BY CLINIC STAFF (08/31/2017 10:14 AM EDT) Specimen Anatomical Collection Method Collection Time Receive d Time (Source) Location / / Volume Laterality 08/31/2017 10:14 08/31/2017 4:07 AM EDT PM EDT Narrative MUSE - 08/31/2017 4:07 PM EDT Ventricular Rate ? 64 ?BPM ? Atrial Rate ?64 ?BPM ? P-R Interval ? 182 ? ms ? QRS Duration ? 112 ? ms ? Q-T Interval ? 440 ? ms ? QTC ?453 ? ms ? P [place] ? 30 ?degrees ? R [place] ? -45 ? degrees ? T [place] ? 32 ?degrees ? Sinus rhythm Left axis deviation When compared with ECG of 12-NOV-2016 13 :05, No significant change was found Confirmed by DR. FUNMILAYO EASON ([id number]) on 08/31/2017 4:07:48 PM Procedure Note Funmilayo Eason MD - 08/31/2017For matting of this note might be different from the original. Ventricular Rate 64 BPM Atrial Rate 64 BPM P-R Interval 182 ms QRS Duration 112 ms Q-T Interval 440 ms QTC 453 ms P [place] 30 degrees R [place] -45 degrees T [place] 32 degrees Sinus rhythm Left axis deviation When compared with ECG of 12-NOV-2016 13 :05, No significant change was found Confirmed by DR. FUNMILAYO EASON ([id number]) on 08/31/2017 4:07:48 PM Funmilayo Eason MD ECG SPECIAL Performing Organization Address City/State/ZIP Code Phon e Number MUSE documented in this encounter Visit Diagnoses Diagnosis SVT (supraventricular tachycardia) (HCC) - Primary Other specified cardiac dysrhythmias Murmur - Primary Undiagnosed cardiac murmurs SVT (supraventricular tachycardia) (HCC) Other specified cardiac dysrhythmias documented in this encounter Care Teams Senior Wind Turbine Technician Relationship Specialty Start Date End Date Chetna Loredo PCP - General Family Medicine 05/19/16 04/13/18 documented as of this encounter
--- OUTSIDE RECORDS SUMMARY | 2021-11-30 11:50 | XMS_ITS | Encounter Summary ---
:1955 Author Organization [facility] [place] [address] Care Team Providers Name Role Phone Chetna Loredo Primary Care Provider Unavailable Reason for Visit Reason Onset Date Comments pain scores 08/09/2017 Encounter Details Date Type Department Care Team Description 08/09/2017 Telephone Pain Services - Ankur Casas RN pain scores [address] [place], [place] [address] [place] [address] [phone] Social History Tobacco Use Types Packs/Day Years [...] this encounter Miscellaneous Notes Telephone Encounter - Ankur Connelly RN - 08/10/2017 9:17 AM EDT Pt schedules. Electronically signed by: Ankur Connelly RN 08/10/17 0917 Telephone Encounter - Neptali Toledo MD - 08/09/2017 12:29 PM EDT Thanks, Ankur! I have put in an order to repeat procedure and he can be scheduled at the first availability with any provider. Thank you! Clyde Electronically signed by: Neptali Toledo MD 08/09/17 1229 Telephone Encounter - Ankur Connelly RN - 08/09/2017 11:16 AM EDT Pt called with pain scores Patient is s/p Right L2-5 Medial Branch/Dorsal Ramus Diagnostic Block on 08/02/[address] Brito. Patient calling in to give us their pain log: (all scores on a scale of 0 - 10) Prior to procedure = 5 Immediately after the procedure = 0 4 pm = 0 5 pm = 0 6 pm = 3 7 pm = 3 8 pm = 2 9 pm = 2 Pt asking to schedule next procedure. Electronically signed by: Ankur Connelly RN 08/09/17 1127 documented in this encounter Plan of Treatment Not on filedocumented as of this encounter Visit Diagnoses Not on filedocumented in this encounter Care Teams Medical Physiologist Relationship Specialty Start Date End Date Allison, Chetna Eda PCP - General Family Medicine 05/19/16 04/13/18 documented as of this encounter
--- OUTSIDE RECORDS SUMMARY | 2021-11-30 11:50 | XMS_ITS | Encounter Summary ---
:1955 Author Organization [facility] [place] [address] Care Team Providers Name Role Phone Chetna Loredo Primary Care Provider Unavailable Reason for Visit Reason Onset Date Comments Synvisc 02/24/2017 PA Not Required Encounter Details Date Type Department Care Team Description 02/24/2017 Telephone Pharmacy [facility] Synvisc (PA [facility] Required ) [place], [place] [address] [facility] [phone] [place] [address] Social History Tobacco Use Types Packs/Day Years [...] this encounter Miscellaneous Notes Telephone Encounter - [facility] - 02/27/2017 8:20 AM EST Synvisc (Series of 3) - No PA Required: Patient is ready to schedule. [facility] received Benefits Verification results on 02/27/17 for Synvisc series of 3,for right knee from TAQUERIA Murray. It was determined that a Prior Authorization IS NOT required Benefits Verification results are: Rep was unable to state the provider's network status however obtained INN and ONN benefits. Drug and Procedure Coverage:(INN) ??? Synvisc-One (J7325) is covered @ 100% of the allowed amount through primary medical insurance ??? (18156) is covered @ 100% of the allowed amount through primary medical Insurance ??? Specialist office visit is covered @ 100% after the co-pay of $20.00 ??? Provider May Buy and Bill the medication. Prior Authorization Requirements: ??? Pre-Determination is not required for both the codes. ??? Prior Authorization is not required for both the codes ??? per Medical Department rep authorization is not required for Codes. ??? Rep refused to transfer the call to authorization department stating no authorization is required for the codes. ??? PCP referral is not required for specialist visit ??? No Plan Exclusion for J7325. ??? There is no tier level on the policy. Electronically signed by: [facility] 02/27/17 8:19 AM Electronically signed by: [facility] 02/27/17 0820 Telephone Encounter - [facility] - 02/24/2017 12:25 PM EST Synvisc (Series of 3) - Benefits Verification Submitted [facility]ication [facility] received a Benefits Verification request for Synvisc series of 3, for right knee from TAQUERIA Murray. The Benefits Verification was submitted to [employer] web portal on 02/24/17. Electronically signed by: [facility] 02/24/17 12:24 PM Electronically signed by: [facility] 02/24/17 1225 documented in this encounter Plan of Treatment Not on filedocumented as of this encounter Visit Diagnoses Not on filedocumented in this encounter Care Teams Screwhead Stoner And Polisher Relationship Specialty Start Date End Date Chetna Loredo PCP - General Family Medicine 05/19/16 04/13/18 documented as of this encounter
--- OUTSIDE RECORDS SUMMARY | 2021-11-30 11:50 | XMS_ITS | Encounter Summary ---
:1955 Author Organization [facility] [place] [address] Care Team Providers Name Role Phone Chetna Loredo Primary Care Provider Unavailable Reason for Visit Reason Onset Date Comments Injections 06/21/2017 Encounter Details Date Type Department Care Team Description 06/21/2017 Telephone Amputee Rehabilitation - Medical Ariel Brito nikita Hiralal Injections [place] [address] [phone] Social History Tobacco Use Types Packs/Day Years [...] this encounter Miscellaneous Notes Telephone Encounter - Yarely Parekh LPN - 06/22/2017 9:41 AM EST Called patient and informed him of message below. Patient wishes to be scheduled for an injection the week following his tooth extraction on 06/26. Please schedule with Dr. Petr Brito. Electronically signed by: Yarely Parekh LPN 06/22/17 0948 Telephone Encounter - Petr Brito MD - 06/21/2017 6:08 PM EST He can be scheduled for his back injections 1 week after his tooth extraction or 1 week after he completes antibiotic therapy (whichever is later) and if he remains afebrile. Electronically signed by: Petr Brito MD 06/21/17 1810 Telephone Encounter - Huey Shaw - 06/21/2017 4:35 PM EST Patient is calling regarding message below. Please call and advise. Patient's contact number: [phone]. Thank you Telephone Encounter - Yarely Parekh LPN - 06/21/2017 1:[address] Brito, please advise, thanks.p Electronically signed by: Yarely Parekh LPN 06/21/17 1301 Telephone Encounter - Wendy Casiano - 06/21/2017 10:44 AM EST Patient calling and states that he is on day 5 or 6 out of antibiotics. States that he is having an abscess tooth removed on 06/26. Is asking if we need to schedule a follow up with Dr. Brito or does he need an injection appointment after that removal for his back pain. Please advise. Thanks. documented in this encounter Plan of Treatment Not on filedocumented as of this encounter Visit Diagnoses Not on filedocumented in this encounter Care Teams Installation Tech Relationship Specialty Start Date End Date Chetna Loredo PCP - General Family Medicine 05/19/16 04/13/18 documented as of this encounter
--- OUTSIDE RECORDS SUMMARY | 2021-11-30 11:50 | XMS_ITS | Encounter Summary ---
:1955 Author Organization [facility] [place] [address] Care Team Providers Name Role Phone Chetna Loredo Primary Care Provider Unavailable Reason for Visit Reason Comments Injections Synvisc 2/3 right knee Medication (Routine) - Closed Specialty Diagnoses / Procedures Referred By Contact Refer red To Contact Pharmacy Diagnoses Primary osteoarthritis of right knee Nasir Vega PA-C [facility] [address] [place] [address] [address] [place] [address] Phone: Referral ID Status Reason Start Expiration Visits Visits Date Date Requested Authorized [id number] Closed Medication 02/22/2017 02/22/2018 3 3 authorization Encounter Details Date Type Department Care Team Description 03/23/2017 Clinical Support Orthopaedics - Nasir Abrams, Primary osteoarthritis [address] [place] [address] Mandy LEWIS of both knees (Primary [place] [id number] Dx) [address] [phone] [place] [address] Social History Tobacco Use Types Packs/Day Years [...] encounter Progress Notes Nasir Vega PA-C - 03/23/2017 2:00 PM EST Mr. Dario Mckeon [id number] 1955 (age: 61 y.o.) Return Visit Referred by: Self Referral No address on file Chief Complaint: Chief Complaint Patient presents with ??? Injections Synvisc 2/3 right knee History of Present Illness: Some pain/swelling - left knee , prior YOUSIF Been doing a lot of yard work past several weeks, no injury Here for 2/3 synvisc right knee too Past Medical History: Diagnosis Date ??? Diabetes mellitus (HCC) ??? Hyperlipemia ??? Hypertension ??? Ruptured appendix ??? Tachycardia Past Surgical History: Procedure Laterality Date ??? APPENDECTOMY ??? ROBOTIC YOUSIF UNICOMPARTMENTAL KNEE REPLACEMENT Left 11/01/2016 Procedure: MEDIAL YOUSIF - UNICOMPARTMENTAL KNEE REPLACEMENT - ROBOTIC; Surgeon: Miguelito Manuel MD; Location: OUTPATIENT OR; Service: Orthopedics; Laterality: Left; Social History Social History ??? Marital status: Spouse name: N/A ??? Number of children: N/A ??? Years of education: N/A Occupational History ??? Not on file. Social History Main Topics ??? Smoking status: Former Smoker Types: Cigarettes Quit date: 04/16/1989 ??? Smokeless tobacco: Not on file ??? Alcohol use Yes Comment: occassionally ??? Drug use: No ??? Sexual activity: Not on file Other Topics Concern ??? Not on file Social History Narrative ??? No narrative on file Allergies Allergen Reactions ??? Morphine Anaphylaxis (ALLERGY) ??? Sulfamethoxazole Anaphylaxis (ALLERGY) ??? Sulfasalazine Itching / Pruritis (ALLERGY/intolerance) Review of Systems: Review of Systems Constitutional: Negative. Neurological: Negative. Endo/Heme/Allergies: Negative. Home Medications Medication Sig Dispense Refill ??? atorvastatin (LIPITOR) 20 MG tablet Take 20 mg by mouth daily. ??? cyclobenzaprine (FLEXERIL) 10 MG tablet Take 10 mg by mouth 2 times daily. ??? DEXT 70/POLYCARBOPHIL/PEG/NACL (ARTIFICIAL TEAR SOLUTION [...] Take 1 capsule by mouth daily. ??? vortioxetine (TRINTELLIX) 5 mg tablet Take 10 mg by mouth daily. ??? aspirin 325 MG EC tablet *ANTIPLATELET* Take 1 tablet (325 mg total) by mouth 2 times daily for 30 days. 60 tablet 0 Physical Exam: Physical Exam Constitutional: He is oriented to person, place, and time. He appears well- developed and well-nourished. Musculoskeletal: Left knee: He exhibits effusion. Neurological: He is alert and oriented to person, place, and time. Skin: Skin is warm and dry. Psychiatric: He has a normal mood and affect. His behavior is normal. Judgment and thought content normal. Nursing note and vitals reviewed. Right Knee Exam Right knee exam is normal. Alignment neutral Muscle Strength The patient has normal right knee strength. Other Sensation: normal Pulse: present Left Knee Exam Tenderness The patient is experiencing tenderness in the medial joint line. Range of Motion The patient has normal left knee ROM. Alignment neutral Other Sensation: normal Pulse: present Swelling: mild Effusion: effusion present Vitals: There were no vitals filed for this visit. Special Investigations- Review of Diagnostic Tests: Radiologic Studies: I have personally reviewed plain x-ray images from [facility]. Prosthesis Lab Studies: I have not reviewed any lab test results for this patient. Assessment: 1. Primary osteoarthritis of both knees Plan: 1. Sterile prep/consent/time out synvisc injection 2. Ice/rest/observe for signs of infection 3. Follow up as planned Follow up: No Follow-up on file. No orders of the defined types were placed in this encounter. Electronically signed by: Nasir Vega PA-C 03/23/2017 2:16 PM Electronically signed by: Nasir Vega PA-C 03/23/17 1645 documented in this encounter Plan of Treatment Not on filedocumented as of this encounter Results XR KNEE LT 3 VIEWS (03/23/2017 2:30 PM EST) Anatomical Region Laterality Modality Thigh, Knee, Leg Digital Radiography Specimen (Source) Anatomical Collection Method Collection Time Re ceived Time Location / / Volume Laterality 03/23/2017 2:31 PM EST Impressions 03/24/2017 10:51 AM EST 1. ??Medial unicompartmental arthroplast y without evidence of hardware complication. Alignment is similar to prior. 2. ??No acute fractures or malalignment. 3. ??Small joint effusion with debris. 4. ??Mild degenerative changes of the la teral and patellofemoral compartments. Narrative 03/24/2017 10:51 AM EST X-RAY LEFT KNEE (3 VIEWS), 03/23/2017 2:30 PM INDICATION: pain/swelling no injury \ \ M17.0 Primary osteoarthritis of both knees COMPARISON: Knee radiograph 02/22/2017 Procedure Note Santiago Cuba MD - 03/24/2017Fo rmatting of this note might be different from the original. X-RAY LEFT KNEE (3 VIEWS), 03/23/2017 2:3 0 PM INDICATION: pain/swelling no injury \ \ M17.0 Primary osteoarthritis of both knees COMPARISON: Knee radiograph 02/22/2017 CONCLUSION: 1. Medial unicompartmental arthroplasty without evidence of hardware complication. Alignment is similar to prior. 2. No acute fractures or malalignment. 3. Small joint effusion with debris. 4. Mild degenerative changes of the late ral and patellofemoral compartments. Nasir Vega PA-C [facility] documented in this encounter Visit Diagnoses Diagnosis Primary osteoarthritis of both knees - P rimary Primary osteoarthritis of both knees documented in this encounter Care Teams Apparatus Cleaner Relationship Specialty Start Date End Date Chetna Loredo PCP - General Family Medicine 05/19/16 04/13/18 documented as of this encounter
--- OUTSIDE RECORDS SUMMARY | 2021-11-30 11:50 | XMS_ITS | Encounter Summary ---
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 [M47.817] Procedures DC INJ DX/THER AGNT PARAVERT FACET JOINT,IMG GUIDE,LUMBAR/SAC, 1ST LEVEL DC INJ DX/THER AGNT PARAVERT FACET JOINT,IMG GUIDE,LUMBAR/SAC, 2ND LEVEL DC INJ DX/THER AGNT PARAVERT FACET JOINT,IMG GUIDE,LUMBAR/SAC, ADD LEVEL LUMBAR/THORACIC MEDIAL BRANC H BLOCK per 07/14 orders-lj Referral ID Status Reason Start Date Expiration Date Visits Requ ested Visits Authorized [id number] 1 1 Encounter Details Date Type Department Care Team Description 08/02/2017 Hospital Encounter [facility] Department [address] [address] Social History Tobacco Use Types Packs/Day Years [...] Pressure 137/83 08/02/2017 1:50 PM EDT Pulse 81 08/02/2017 2:58 PM EDT Temperature 36.8 ??C (98.2 ??F) 08/02/2017 1:50 PM EDT Respiratory Rate - - Oxygen Saturation 94% 08/02/2017 2:58 PM EDT Inhaled Oxygen Concentration - - [...] DELICA LANCETS 30 0 7 09/16/2017 gauge [facility] [place] ULTRA TEST Strp 0 03/27/2017 09/16/2017 [...] Electronically signed by: Petr Brito MD 08/02/17 1509 documented in this encounter Plan of Treatment [...] PM 8 1:51 EDT PM EDT Petr Brito POCT ORDERABLES - DEVICE Performing Organization Address [facility] Code Phon e Number PULIDO documented in this encounter Visit Diagnoses Diagnosis Spondylosis of lumbosacral region withou t myelopathy or radiculopathy - Primary documented in this encounter Admitting Diagnoses Diagnosis Spondylosis of lumbosacral region withou t myelopathy or radiculopathy documented in this encounter Active and Recently Administered Medications Times are shown in EDT. PRN Medication Order 07/31/2017 08/01/2017 08/02/2017 bupivacaine (MARCAINE) 0.5 % (5 mg/mL) injection (CANCELED) 1501 (Given - Provider: Petr Brito - Comment: Rt L2-5 MBB-6 ml waste) Intra-op PRN, Starting Mon08/02/17 at 1501, Anesthesia Intra-op documented in this encounter Care Teams Mother Repairer Relationship Specialty Start Date End Date Chetna Loredo PCP - General Family Medicine 05/19/16 04/13/18 documented as of this encounter
--- OUTSIDE RECORDS SUMMARY | 2021-11-30 11:50 | XMS_ITS | Encounter Summary ---
:1955 Author Organization [facility] [place] [address] Care Team Providers Name Role Phone Chetna Loredo Primary Care Provider Unavailable Reason for Visit Reason Onset Date Comments miguel angel-appt 05/18/2017 Encounter Details Date Type Department Care Team Description 05/18/2017 Telephone Orthopaedics - Nasir Abrams PA-C miguel angel-appt 329 Count includes the [facility] [address] [place] [address] [phone] (Wo rk) Social History Tobacco Use Types [...] this encounter Miscellaneous Notes Telephone Encounter - Iraida Briggs RN - 05/18/2017 9:24 AM EST Patient called, two patient identifiers confirmed. Pt advised that provider does not recommend repeat aspiration. Pt given follow up with Dr. Manuel next week at [facility]. Encouraged pt to wear compression sleeve or YAMILET hose while traveling. Pt apprecitative and in agreement with plan. No further needs. Electronically signed by: Iraida Briggs RN 05/18/17 0930 Telephone Encounter - Iraida Briggs RN - 05/18/2017 8:31 AM EST S/P left YOUSIF on 11/01/16. Pt last seen on 05/10/17 by Nasir Vega for left knee pain. 80 cc aspiriation, Kenalog injection, 7 day supply of Keflex. Patient called, two patient identifiers confirmed. Pt states his knee felt better for 4-5 days, however the fluid has returned. He is going out of town tomorrow and would like a repeat aspiration. Advised that I will verify with provider prior to booking appt. Electronically signed by: Iraida Briggs RN 05/18/17 0835 Telephone Encounter - Chetna Ríos Nuzhat - 05/18/2017 8:26 AM EST Patient calling for an appt with TAQUERIA Murray for this afternoon or tomorrow morning due to fluid on the knee. Patient is going out of town and will be get on an airplane tomorrow afternoon. Pleaseadvise. documented in this encounter Plan of Treatment Not on filedocumented as of this encounter Visit Diagnoses Not on filedocumented in this encounter Care Teams Chief Accounting Officer Relationship Specialty Start Date End Date Chetna Loredo PCP - General Family Medicine 05/19/16 04/13/18 documented as of this encounter
--- OUTSIDE RECORDS SUMMARY | 2021-11-30 11:50 | XMS_ITS | Encounter Summary ---
:1955 Author Organization [facility] [place] [address] Care Team Providers Name Role Phone Chetna Loredo Primary Care Provider Unavailable Reason for Referral Medication (Routine) - Closed Specialty Diagnoses / Procedures Referred By Contact Refer red To Contact Pharmacy Diagnoses Primary osteoarthritis of right knee Nasir Vega PA-C [facility] [address] [place], [place] [address] [place] [address] Phone: Referral ID Status Reason Start Expiration Visits Visits Date Date Requested Authorized [id number] Closed Medication 02/22/2017 02/22/2018 3 3 authorization Scheduling Instructions Please indicate: Start of treatment: Sta rt Date 02/22/17 Patient Name: Dario Mckeon [place] Ph one: Gender: male Cell : 1955 Work Phone: Address: Sarah Quesada [facility] [id number] Product Information: Synvisc - 3 of 3 RT Knee Patient Diagnosis: M17.11 (Unilateral primary osteoarthriti s, right knee) Clinical Information: In which joint will the viscosupplement be used? right knee Has the patient had any sodium hyalurona te drug treatment in the past? No Date of last injection from prior [...] into the articular space once. - Intra-articular What knee was treated: right - 07/28/16 Was an NSAID used prior to Synvisc? Yes - (date): Ibuprofen, 02/21/17 Was a steroid used prior to Synvisc? No Allergies: -- Morphine -- Anaphylaxis (A LLERGY) -- Sulfamethoxazole -- Anaphylaxis (ALL ERGY) -- Sulfasalazine -- Itching / Pruritis (ALLERGY/intolerance) [employer] insurance? No Electronically signed by: George Juan CMA 02/22/2017 1:50 PM Encounter Details Date Type Department Care Team Description 02/22/2017 Telephone Orthopaedics - George King, [facility] [address] [facility] [place] [id number] [place] [address] [facility], [facility] [address] Social History Tobacco Use Types Packs/Day [...] this encounter Miscellaneous Notes Telephone Encounter - Katheryn Miguel RN - 03/03/2017 10:38 AM EST Emma - this note below is from the ortho department - can you either forward this message to them if appropriate or was pt calling the spine center about something else Electronically signed by: Katheryn Miguel RN 03/03/17 1041 Telephone Encounter - Emma Benito - 03/03/2017 10:34 AM EST Patient is calling back about note below. Please contact shashi as patient called multiple times. Telephone Encounter - Nasir Vega PA-C - 02/22/2017 5:03 PM EST Done , thank you Electronically signed by: Nasir Vega PA-C 02/22/17 1703 Telephone Encounter - George Juan CMA - 02/22/2017 1:49 PM EST Nasir, please review and sign pending order for 3 of 3 synvisc for right knee. Thanks, George Juan Electronically signed by: George Juan CMA 02/22/17 1358 documented in this encounter Plan of Treatment Scheduled Referrals Name Type Priority Associated Diagnoses Order S chedule Viscosupplement Prior Outpatient Routine Primary 1 Occu rrences Authorization Referral osteoarthritis of starting right knee 02/22/2017 unti l 02/22/2018 documented as of this encounter Visit Diagnoses Diagnosis Primary osteoarthritis of right knee - P rimary documented in this encounter Care Teams Ecdis N Navigation Operator Relationship Specialty Start Date End Date Chetna Loredo PCP - General Family Medicine 05/19/16 04/13/18 documented as of this encounter
--- OUTSIDE RECORDS SUMMARY | 2021-11-30 11:50 | XMS_ITS | Encounter Summary ---
:1955 Author Organization [facility] [place] [address] Care Team Providers Name Role Phone Chetna Loredo Primary Care Provider Unavailable Reason for Visit Reason Comments Injections Synvisc injection 04/19 for e right knee Medication (Routine) - Closed Specialty Diagnoses / Procedures Referred By Contact Refer red To Contact Pharmacy Diagnoses Primary osteoarthritis of right knee Nasir Vega PA-C [facility] [address] [place] [address] [address] [place] [address] Phone: Referral ID Status Reason Start Expiration Visits Visits Date Date Requested Authorized [id number] Closed Medication 10/02/2017 10/02/2018 3 3 authorization Encounter Details Date Type Department Care Team Description 11/02/2017 Clinical Support Orthopaedics - Nasir Abrams, Primary osteoarthritis [address] [place] [address] N DEBBIE of right knee (Primary [place] [address] Dx) [address] [phone] [place], [place] [id number] Social History Tobacco Use Types Packs/Day Years [...] encounter Progress Notes Nasir Vega PA-C - 11/02/2017 1:40 PM EDT Mike Bishop 61 y.o. male Chief Complaint: [...] knee Electronically signed by: Nasir Vega PA-C 11/02/17 1620 documented in this encounter Plan of Treatment Not on filedocumented as of this encounter Visit Diagnoses Diagnosis Primary osteoarthritis of right knee - P rimary documented in this encounter Administered Medications Inactive Administered Medications - up to 3 most recent administrations Medication Order MAR Action Action Date Dose Rate Site hylan (SYNVISC) injection 16 mg Given 11/02/2017 4:20 PM EDT 16 mg 16 mg Weekly, Intra-articular, First dose on Mon11/03/17 at 0900, For 3 doses documented in this encounter Care Teams Contract Assistant Relationship Specialty Start Date End Date Chetna Loredo PCP - General Family Medicine 05/19/16 04/13/18 documented as of this encounter
--- OUTSIDE RECORDS SUMMARY | 2021-11-30 11:50 | XMS_ITS | Encounter Summary ---
:1955 Author Organization [facility] [place] [address] Care Team Providers Name Role Phone Chetna Loredo Primary Care Provider Unavailable Reason for Visit Auth/Cert Specialty Diagnoses / Procedures Referred By Contact Refer red To Contact Diagnoses Lumbar facet arthropathy Lumbar facet arthropathy (HCC) [M46.96] Procedures CT INJ DX/THER AGNT PARAVERT FACET JOINT,IMG GUIDE,LUMBAR/SAC, 1ST LEVEL CT INJ DX/THER AGNT PARAVERT FACET JOINT,IMG GUIDE,LUMBAR/SAC, 2ND LEVEL CT INJ DX/THER AGNT PARAVERT FACET JOINT,IMG GUIDE,LUMBAR/SAC, ADD LEVEL LUMBAR/THORACIC MEDIAL BRANC H BLOCKRight L2-L5 per orders 08/09/17 - lf Referral ID Status Reason Start Date Expiration Date Visits Requ ested Visits Authorized [id number] 1 1 Encounter Details Date Type Department Care Team Description 08/15/2017 Hospital Encounter Surgical Services - Kelvin Toledo MD [address] [place] [address] [place], [place] [phone] (Wo rk) Social History Tobacco Use Types [...] Sign Reading Time Taken Comments Blood Pressure 146/70 08/15/2017 4:15 PM EDT Pulse 74 08/15/2017 4:15 PM EDT Temperature 36.6 ??C (97.8 ??F) 08/15/2017 3:25 PM EDT Respiratory Rate - - Oxygen Saturation 98% 08/15/2017 4:15 PM EDT Inhaled Oxygen Concentration - - [...] as of this encounter Discharge Instructions Discharge InstructionsAbigail Hanson RN - 08/15/2017 3:18 PM EDT [facility] Discharge Instructions (Post-Procedure) , opt 2 The following are specific instructions and precautions. 1. Please do not be concerned if there is any redness/flushing in the face/neck. This may be a normal side effect of steroid (cortisone) if used, in up to 10% of patients. However, if there is any associated shortness of breath, rash on other parts of the body, swelling of the throat/difficulty swallowing: PLEASE activate the emergency medical system/call 911. 2. Have a quiet day and evening. 3. Do not do anything you would not ordinarily do. 4. You may shower. 5. Some discoloration and mild discomfort may occur at the injection site. This will resolve in 5-7days. 6. Use ice 20 minutes at a time for the first 24 hours. 7. Use heat 30 minutes at a time after the first 24 hours. 8. Rest and drink plenty of fluids. PLEASE NOTIFY US IF THE FOLLOWING SYMPTOMS OCCUR. In the event that you are unable to contact us or your primary care physician, please go to the emergency department or call 911. 1. Prolonged weakness or numbness (more than one day). 2. Localized swelling, redness, or discharge at injection site. 3. Severe pain at injection site. 4. Fever or chills. 5. New onset severe pain. documented in this encounter Medications at Time [...] DELICA LANCETS 30 0 7 09/16/2017 gauge [facility] ONETOUCH ULTRA TEST Strp 0 03/27/2017 09/16/2017 vortioxetine (TRINTELLIX) 5 Take 10 mg by 0 08/31/2017 mg tablet mouth daily. documented as of this encounter Nursing Notes Abigail Hanson RN - 08/15/2017 4:22 PM EDT Patient is s/p Right L2-L5 Medial Branch/Dorsal Ramus Diagnostic Block on 08/15/[address] Neptali Toledo. Patient calling in to give us their pain log: (all scores on a scale of 0 - 10) Prior to procedure = 5 Immediately after the procedure = 0 5:30 pm = 1 6:30 pm = 1 7:30 pm = 2 8:30 pm = 3 9:30 pm = 3 10:30 pm = 2 Post procedural call made to pt. Pt denies any issues. Pt states pain is currently 4 out of 10. Pt states reduction in pain is >50%. Pt encouraged to call with any issues. Electronically signed by: Abigail Hanson RN 08/16/17 1526 documented in this encounter Miscellaneous Notes Op Note - Neptali Toledo MD - 08/15/2017 4:05 PM EDT Procedure: 1) Right L3-4, L4-5, and L5-S1 Facet Injections via Medial Branch Technique (3 facets total) 2) Fluoroscopy Surgeon: Dr. 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 Written informed consent was obtained including a discussion of the risks, benefits and alternatives to the procedure. Anticoagulation status was reviewed with the patient. the patient was escorted to the fluoroscopy suite and positioned in the prone position on the fluoroscopic table and padded to comfort. A timeout was performed with the patient and room staff to verify correct patient, procedure, site, and allergies. The patient???s lumbosacral areawas prepped and draped in a sterile fashion with chloraprep. A/P fluoroscopy was utilized to identify the junction of the right sacral ala with the superior articulating process to target the right L5 dorsal primary ramus. The skin was anesthetized using 1cc of 1% lidocaine. Next a 25g 3.5in spinal needle was advanced using A/P fluoroscopic guidance until it made bony contact at the above target sitethe location of the L5 dorsal primary ramus. Identical needles were placed in an identical fashion as above at the junction of the L5 transverse process and superior articulating process, the junction of the L4 transverse process and superior articulating process, and the junction of the L3 transverseprocess and superior articulating process to target the L4, L3, and L2 medial branches. After negative aspiration blood or CSF, each needle was injected with 1 cc of 0.25% preservative free bupivacaine. The needles were removed with tip intact and hemostasis appreciated. Meaningful verbal contact was maintained with the patient thought the entire procedure. The patient was allowed to recover in a monitored setting for 30 minutes prior to discharge home in stable condition without complications or motor block. Electronically signed by: Neptali Toledo MD 08/15/17 1624 documented in this encounter Plan of Treatment Not on filedocumented as of this encounter Procedures Procedure Name Priority Date/Time Associated Diagnosis Comme nts LUMBAR/THORACIC 08/15/2017 4:02 PM Lumbar facet MEDIAL BRANCH BLOCK EDT arthropathy OR FLUORO IMAGING Routine 08/15/2017 3:54 PM Resu lts for this EDT procedure are i n the results section. POCT GLUCOSE Routine 08/15/2017 3:30 PM Results f or this BATTERY DEVICE EDT procedure are in the results section. documented in this encounter Results OR FLUORO IMAGING (08/15/2017 3:54 PM EDT) Specimen (Source) Anatomical Location Collection Method / Collectio n Time Received Time / Laterality Volume Narrative ISITEPOW - 08/15/2017 3:54 PM EDT This exam was automatically finalized an d will not be resulted. Neptali Toledo MD IMG DIAGNOSTIC IMAGING ORDER MASOUD Performing Organization Address City/State/ZIP Code Phon e Number [place] (ABNORMAL) POCT Glucose (08/15/2017 3:30 PM EDT) P athologist Signature POC GLUCOSE 168 (H) 70 - 150 [place] mg/dL Specimen Anatomical Collection Method Collection Time Receive d Time (Source) Location / / Volume Laterality 08/15/2017 3:30 PM 8 2:14 EDT PM EDT Neptali Toledo MD POCT ORDERABLES - DEVICE Performing Organization Address City/State/ZIP Code Phon e Number [place] documented in this encounter Visit Diagnoses Diagnosis Lumbar facet arthropathy Spondylosis of unspecified site without mention of myelopathy documented in this encounter Admitting Diagnoses Diagnosis Lumbar facet arthropathy Spondylosis of unspecified site without mention of myelopathy documented in this encounter Active and Recently Administered Medications Times are shown in EDT. PRN Medication Order 08/13/2017 08/14/2017 08/15/2017 bupivacaine (PF) (MARCAINE) 0.25 % (2.5 mg/mL) injection (CANCEL ED) 1609 (Given - Provider: Neptali Toledo MD - Comment: Right L2-5 MBB--6 ml waste) Intra-op PRN, Starting Mon08/15/17 at 1609, Anesthesia Intra-op lidocaine (XYLOCAINE) 10 mg/mL injection (CANCELED) 1607 (Given - Provider: Neptali Toledo MD - Comment: Right L2-5 MBB-- no waste) Intra-op PRN, Starting Mon08/15/17 at 1607, Anesthesia Intra-op documented in this encounter Care Teams Community Planner Relationship Specialty Start Date End Date Chetna Loredo PCP - General Family Medicine 05/19/16 04/13/18 documented as of this encounter
--- OUTSIDE RECORDS SUMMARY | 2021-11-30 11:50 | XMS_ITS | Encounter Summary ---
:1955 Author Organization [facility] [place] [address] Care Team Providers Name Role Phone Chetna Loredo Primary Care Provider Unavailable Reason for Visit Reason Comments Left Knee Problem Patient presents today for a n evaluation of the left knee. Surgery left medial YOUSIF and open me dial patellar facetectomy on 11/01/16. Encounter Details Date Type Department Care Team Description 08/07/2017 Office Visit Orthopaedics - Nasir Abrams, Arthritis of knee (Primary D x); [address] PA-C Effusion of knee, unspecified laterality ; [address] [address] [address] [facility] [address] Status post left partial kne e replacement; [phone] [place] Primary [place] [address] Social History Tobacco Use Types Packs/Day Years [...] Sign Reading Time Taken Comments Blood Pressure 113/61 08/07/2017 10:51 AM EDT Pulse 60 08/07/2017 10:51 AM EDT Temperature 36.6 ??C (97.8 ??F) 08/07/2017 10:51 AM EDT Respiratory Rate - - Oxygen Saturation - - Inhaled Oxygen Concentration - - Weight 111.1 kg (245 lb) 08/07/2017 10:51 AM EDT Height 177.8 cm (5' 10) 08/07/2017 10:51 AM EDT Body Mass Index 35.15 08/07/2017 10:51 AM EDT documented in this encounter Functional [...] encounter Progress Notes Nasir Vega PA-C - 08/07/2017 10:40 AM EDT Mr. Dario Mckeon [id number] 1955 (age: 61 y.o.) Return Visit Referred by: Self Referral No address on file Chief Complaint: Chief Complaint Patient presents with ??? Left Knee Problem Patient presents today for an evaluation of the left knee. Surgery left medial YOUSIF and open medialpatellar facetectomy on 11/01/16. History of Present Illness: Follow up recurrent knee left knee pain /swelling - inflammation resolved left knee doing well synvisc wearing off right knee - would like to repeat the series. Date of surgery: 11-01-16. Surgery performed: 8 months post-op left medial YOUSIF and open medial patellar facetectomy 11-01-16. Pain medicine- Managing pain with Naproxen. Progress with PT- Has completed outpatient physical therapy. Left knee aspiration and steroid injection performed 05-10-17 by Nasir Vega PA-C (80 cc blood tinged fluid). Reports improvement in pain and swelling. Employment status: Retired. Past Medical History: Diagnosis Date ??? Diabetes mellitus (HCC) ??? Hyperlipemia ??? Hypertension ??? Ruptured appendix ??? Tachycardia Past Surgical History: Procedure Laterality Date ??? APPENDECTOMY ??? LUMBAR / THORACIC MEDIAL BRANCH BLOCK N/A 08/02/2017 Procedure: LUMBAR/THORACIC MEDIAL BRANCH BLOCK (Right L2-5); Surgeon: Petr Brito MD; Location: [facility]; Service: Rehab Medicine; Laterality: N/A; ??? ROBOTIC YOUSIF UNICOMPARTMENTAL KNEE REPLACEMENT Left [...] Systems Constitutional: Negative. Neurological: Negative. Endo/Heme/Allergies: Negative. Psychiatric/Behavioral: Negative. Home Medications [...] mg total) by mouth 2 times daily. 60 tablet1 ??? ONETOUCH DELICA LANCETS 30 gauge Misc ??? ONETOUCH ULTRA TEST Strp ??? vortioxetine (TRINTELLIX) 5 mg tablet Take 10 mg by mouth daily. ??? aspirin 325 MG EC tablet *ANTIPLATELET* Take 1 tablet (325 mg total) by mouth 2 times daily for 30 days. 60 tablet 0 Physical Exam: Physical Exam Constitutional: He is oriented to person, place, and time. He appears well-developed. Neurological: He is alert and oriented to person, place, and time. Skin: Skin is warm and dry. Psychiatric: He has a normal mood and affect. His behavior is normal. Thought content normal. Nursing note and vitals reviewed. Right Knee Exam Right knee exam is normal. Tenderness The patient is experiencing tenderness in the medial joint line and patella. Range of Motion The patient has normal right knee ROM. Alignment neutral Muscle Strength The patient has normal right knee strength. Other Sensation: normal Pulse: present Swelling: none Left Knee Exam Left knee exam is normal. Range of Motion The patient has normal left knee ROM. Alignment neutral Muscle Strength The patient has normal left knee strength. Other Sensation: normal Pulse: present Swelling: none Comments: Well healed surgical scar No calf swelling Vitals: Vitals: 08/07/17 1051 BP: 113/61 Pulse: 60 Temp: 97.8 ??F (36.6 ??C) Height: 1.778 m (5' 10) Weight: 111.1 kg (245 lb) BMI (Calculated): 35.2 Special Investigations- Review of Diagnostic Tests: Radiologic Studies: I have personally reviewed plain x-ray images from [facility]. Degenerative joint disease both knees, retained prosthesis left knee Lab Studies: I have not reviewed any lab test results for this patient. Assessment: 1. Arthritis of knee 2. Effusion of knee, unspecified laterality 3. Status post left partial knee replacement 4. Primary osteoarthritis of both knees Plan: 1. Continue home PT / strengthening 2. Follow up for repeat synvisc righ tknee in September Follow up: No Follow-up on file. No orders of the defined types were placed in this encounter. Electronically signed by: Nasir Vega PA-C 08/07/2017 10:57 AM Electronically signed by: Nasir Vega PA-C 08/07/17 1137 documented in this encounter Plan of Treatment Not on filedocumented as of this encounter Visit Diagnoses Diagnosis Arthritis of knee - Primary Unspecified arthropathy, lower leg Effusion of knee, unspecified laterality Status post left partial knee replacemen t Primary osteoarthritis of both knees documented in this encounter Care Teams Shank Maker Relationship Specialty Start Date End Date Chetna Loredo PCP - General Family Medicine 05/19/16 04/13/18 documented as of this encounter
--- OUTSIDE RECORDS SUMMARY | 2021-11-30 11:50 | XMS_ITS | Encounter Summary ---
:1955 Author Organization [facility] [place] [address] Care Team Providers Name Role Phone Chetna Loredo Primary Care Provider Unavailable Encounter Details Date Type Department Care Team Description 10/23/2017 Initial [facility] Julio Hoyt Memory loss (Primary Dx); consult Network Vasquez, PhD Mild neurocognitive disorder Neuropsychology - [address] [phone] Social History Tobacco Use Types Packs/Day Years [...] documented as of this encounter Progress Notes Julio Hoyt, PhD - 10/23/2017 12:00 PM EDT Images from the original note were not included. [facility] Julio Hoyt PsyD, [facility] Board-Certified Clinical Neuropsychologist [address], [address] [place] [address] NEUROPSYCHOLOGICAL EVALUATION - CONFIDENTIAL STOP! If you are not the patient, the patient???s legal guardian/caregiver, or an individual for whom the patient has signed a release of information then do not proceed and contact the above mentionedprovider. Thank you! PATIENT: Dario Mckeon DATE OF : 1955 PROCEDURE: Neuropsychological evaluation DATE OF SERVICE: 10/23/2017 REFERRAL SOURCE: Tr Sher MD MEDICAL NECESSITY: To evaluate cognitive and emotional functioning in light of a diagnosis of memoryloss and to assess for dementia. SOURCES OF INFORMATION: The following information was gathered from a clinical interview with Mr. Mckeon, his female partner, and from a review of available medical records. The patient expressed understanding of the purpose of the evaluation and consented to all procedures. HISTORY OF PRESENT ILLNESS: Mr. Dario Mckeon is a 61-year-old, right-handed, male, who reported experiencing progressively worsening cognitive difficulties over the past 2 years. Onset was insidious with no precipitating factors endorsed. Of note, it was incidentally found that he suffered a stroke 6-7 weeks ago. He denied any symptoms indicating a cerebrovascular accident. Memory dysfunction purportedly makes it hard for Mr. Mckeon to recall recent information such as details from conversations. Secondary to forgetfulness, he has trouble recalling people's names, leaves tasks incomplete, and misplaces belongings. There are also indications of rapid forgetfulness. Decreased attention and concentration were endorsed and he feels easily distracted. Multitasking is problematic and he tends to lose his train of thought. Problem- solving and analytical thinking are diminished. Word finding problems exist and speech comprehension at times is poor. No other cognitive, motor orsensory symptoms endorsed. According to medical records, Mr. Mckeon was seen by Dr. Sher (Neurology). This provider???s note indicated that the patient presented with concerns about memory loss that is progressing. Both of his parents reportedly developed Alzheimer's disease at a fairly early age and he is concerned that this may be occurring. MMSE was 29/30. In order to assess for cognitive impairment and dementia, he was referred for neuropsychological evaluation. MEDICAL HISTORY: and developmental history are benign. A history of traumatic brain injury wasdenied. There is no reported history of alcohol or illicit substance abuse/dependence. As mentioned,Mr. Mckeon suffered a stroke approximately 6-7 weeks ago. He denied any symptoms. He suffers chronic sleep disturbance. 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 A brain MRI scan from September 2017 reportedly revealed a left insular/subinsular late acute/subacute small infarct, as well as extensive age advanced chronic white matter changes, as well as innumerablescattered foci of susceptibility artifact throughout both of the cerebral hemispheres. All lab work that has been performed has reportedly been within normal limits. CURRENT MEDICATIONS (According to medical records): baby aspirin, atorvastatin, cyclobenzaprine, metformin, metoprolol tartrate, flecainide, donepezil 5 mg, vitamin C, and a multivitamin. Of note, the patient said that donepezil was discontinued and that he now takes memantine. PSYCHIATRIC HISTORY: Mr. Mckeon reported being diagnosed and treated for depression when he first moved to [place]. His depressive symptoms are typically secondary to social stressors or in reaction to understandable circumstances such as his father passing away. Fortunately, he has been in gener ally good spirits of [facility] and depression and anxiety are well controlled. No Suicidal/homicidal ideation, plan or intent endorsed. No manic or hypomanic episodes were reported. The patient denied ever experiencing any auditory/visual hallucinations. No behavioral or personality changes were endorsed. FAMILY HISTORY: There is a significant family history of Alzheimer's disease. Mr. Mckeon??? paternal grand uncle, maternal aunt, and mother and father were all diagnosed with the condition. They were otherwise unaware of any family history of neurological or movement disorders, neurodegenerative conditions, substance abuse, or psychiatric issues. PSYCHOSOCIAL HISTORY: Mr. Mckeon currently lives with his female partner of 6 years. He was previously but . No major social stressors identified. Academically, he graduated from high school, and there are no indications of intellectual disability, or ADHD. However, he did mention that he had particular difficulties with math but it did not appear to be at a level indicating a learningdisability. 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 With regard to daily life, the patient is reportedly fully independent for all instrumental and basic self-care activities. BEHAVIORAL OBSERVATIONS: Mr. Mckeon was appropriately dressed for season and situation, and he appeared tidy and well-groomed. All sensory and motor abilities appeared normal. He was friendly and rapport was easily established. His speech was as expected and he was able to express ideas effectively. He seemed to understand test directions readily. His affect was appropriately modulated. Attention and motivation were good. Optimal test taking conditions were maintained. PROCEDURES: Licensed credentialed clinical psychologist???s professional time including direct clinical assessment of the patient, collateral interviews (as appropriate), test selection, administration of tests either by the neuropsychologist (or the military pay technician under the supervision of the licensed psychologist),relevant record review, interpretation and integration of test results and other clinical data, and preparing the final report equals 6 total units 60603 and 2 units of 35988. Use of computerized test equals 1 unit of 374[address]. VALIDITY OF EVALUATION: Scores on objective and embedded measures of performance validity were within normal limits, and there were no behavioral manifestations that suggested suboptimal effort or poortest engagement. As such, the following test results are considered valid and interpretable. Mental Status: The patient was alert and fully oriented to person, place, time, and situation. Attention and concentration were as expected. Fund of information was typical. Thinking was goal-directed and appeared normal from the perspective of productivity, relevance, and coherence with no preoccupations. The patient was able to form concepts well. Judgment and decision-making appeared intact. Insight was full. TEST RESULTS: A detailed score summary is provided within the Scores Summary Table at the end of this report, presented as standardized scores obtained through comparisons of the patient???s performance to that of same age peers taking into account (whenever possible) the effects of age, education, and other demographic factors. Baseline Intellectual Abilities: Performance on a measure of word reading combined with demographic information yielded a statistically-derived estimate of premorbid intellectual functioning. The patient???s premorbid abilities are estimated to be in the above average range. Attention, Processing Speed, and Executive Cognitive Processes: Response inhibition was below average and with 4 errors. Word naming speed was mildly impaired. Color naming speed was below average. Visual cognitive information processing speed was moderately impaired with 5 errors. Immediate auditory a ttention was average, working memory capacity was average, and mental sequencing was average. Psychomotor speed involving simple sequencing and visual scanning was moderately impaired. More complex sequencing requiring divided attention, mental flexibility, and set shifting was average. The patient???s ability to identify, maintain, and shift problem solving strategies in response to examiner feedback was intact but with mild perseveration. Language Functions: The patient???s speech was fluent and grammar and syntax were unremarkable. No major word-finding problems were observed. Speech comprehension appeared intact. Letter fluency was average. Category fluency was average. Confrontation naming was average. Visuospatial and Constructional Abilities: Spatial judgment was mildly impaired. Complex constructional praxis was reduced secondary to poor organization and planning. Learning and Memory: On a rote verbal list-learning task, overall verbal learning was below average.Long-delayed free recall was mildly impaired; retention was below average. Verbal recognition was average (12/12 hits, one false positive error). Immediate recall of auditorially-processed prose material was superior. Long-delayed contextual free recall was average; recognition was average. On a test measuring visuospatial memory, overall visual learning was severely impaired. Long-delayed free recall was severely impaired; retention was intact. Visual recognition was intact (6/6 hits and zero falsepositive errors). Emotional Functioning: The patient???s score on a depression scale suggests that this individual hasbeen experiencing a MILD degree of depressive symptoms in the past two weeks. The patient???s score on an anxiety inventory suggests that this individual has been experiencing NO SIGNIFICANT degree of anxious symptoms in the past week. SUMMARY & IMPRESSION: Mr. Dario Mckeon is a 61-year-old, right-handed, male, who reported experiencing progressively worsening cognitive difficulties over the past 2 years. Onset was insidious with no precipitating factors endorsed. Of note, it was incidentally found that he suffered a stroke 6-7 weeks ago. He denied any symptoms indicating a cerebrovascular accident. Test results revealed intact functioning across most cognitive domains and thinking skills assessed during this evaluation with the exception of deficient executive cognitive processes including processing speed, psychomotor speed, response inhibition, as well as only very mildly reduced unstructured verbal learning and free recall. Visuospatial learning and memory were impaired. From an emotional standpoint, there appears to be at least a mild degree of recent depression. Mr. Mckeon??? performance is consistent with a diagnosis of Mild Neurocognitive Disorder (i.e., mild cognitive impairment), predominantly dysexecutive. At present, I feel the most salient etiology is extensive cerebrovascular compromise. This is not the prototypical pattern for Alzheimer's disease, though given the strong family history continued follow-up is warranted. REFERRING DIAGNOSIS: Memory loss FINAL DIAGNOSIS: Memory loss Mild Neurocognitive Disorder (i.e., mild cognitive impairment), predominantly dysexecutive (likely secondary to cerebrovascular compromise) RECOMMENDATIONS: 1. Follow-up with Dr. Sher. ??? Continue memantine. ??? It is recommended that the patient aggressively manage any modifiable risk factors for further cognitive decline, particularly strict compliance with prescribed medical treatments for any cerebrovascular risk factors. 2. Neuropsychological re-evaluation is recommended in approximately 18-24 months (or sooner) to monitor treatment efficacy, to assist with the management of the patient (start or continue rehab or pharmacological therapy), to determine any clinical and functional significance of brain abnormality overtime, as well as to document any potential improvement or decline in cognitive functioning. Lastly, any follow-up testing will help delineate the specific cognitive basis of any new functional complaints. The following are several strategies that may help compensate for certain cognitive deficits. ??? Performance will generally be best in a structured, routine, and familiar environment, as opposed to situations involving complex problems. ??? To the extent possible, multitasking should be avoided. And if there are difficulties in organization and planning, maintaining a daily organizer to help keep track of important appointments and information may be beneficial. ??? Memory problems may at least be minimally addressed using compensatory strategies such as the use of a daily schedule to follow, memos, portable recorder, a centrally located bulletin board, or memory notebook. A large calendar, placed in a highly visible location would be valuable to keep track of dates and appointments. In addition, it would be helpful to keep a log of all of medical appointments with the name of the doctor, date of visit, diagnoses, and treatments. ??? Use of a medication box is recommended to ensure compliance and decrease confusion regarding medication dosages, times, and dates. ??? To aid in managing perceived problems with attention, the patient may consider using some of thefollowing strategies: o The patient should simplify tasks. There may be a need to break overly complex activities into simple blvs-ax-nxdd tasks, keep these steps written down in a note book and then check them off as they are completed which will help to stay on task and make sure the whole task is finished. o The patient should set deadlines for everything, even for seemingly small tasks, prioritize time-sensitive tasks and write down every assignment, message, or important thought. o The patient is encouraged to use timers and alarms to stay on track and take breaks at regular intervals. Avoid piles of paperwork or procrastination by dealing with each item as it comes in. The patient is encouraged to attend to lifestyle factors for brain health (e.g., regular physical exercise, good nutrition habits, regular participation in cognitively-stimulating activities, and general stress management techniques), which are likely to have benefits for both emotional adjustment andcognition. In fact, in addition to promoting general good health, regular exercise incorporating aerobic activities (e.g., brisk walking, jogging, bicycling, etc.) has been demonstrated to be a very effective treatment for depression and stress, with similar efficacy rates to both antidepressant medication and psychotherapy. And for those with orthopedic issues, water aerobics may be particularly beneficial. If you have any questions, please contact us at . This report is intended solely for the confidential review and use by the referring professional to assist in diagnostic and medical decision making needs. This report should not be released to a thirdparty without proper consent. Julio Hoyt PsyD, [facility] Board-Certified Clinical Neuropsychologist Patient name: Dario Mckeon (: 1955) NEUROPSYCHOLOGICAL EVALUATION SUMMARY OF SCORES All scores are intended for the use of licensed professionals and should only be interpreted within the context of this report. The table below lists the average range for specific standardized scales; higher scores represent stronger performance unless noted otherwise. Scale Average Range Standard Score (StS) 90 - 110 Scaled Score (SS) 8 - 12 T-Score 43 - 56 Z-Score -0.6 - 0.6 Bloom Adult Reading Test - A Raw Score Standard Score %ile Reading 25 Predicted FSIQ 117 87 Bloom Verbal Learning Test-R Form 1 Raw Score T-score %ile Trial 1 5 36 8 Trial 2 9 46 34 Trial 3 8 32 4 Total Recall 22 37 10 Delayed Recall 7 35 7 Retention (%) 78 40 16 Total Hits 12 Total FP 1 Recognition Disc. Index 11 52 58 Brief Visuospatial Memory Test-R Form 1 Raw Score T-score %ile Trial 1 3 38 12 Trial 2 2 22 <1 Trial 3 5 30 2 Total Recall 10 27 1 Learning 3 46 34 Delayed Recall 4 30 2 Percent Retained 80 >16 Recognition Hits 6 >16 Recognition False Alarms 0 >16 Recognition Discrimination Index 6 >16 Recognition Response Bias 0.50 >16 Copy - Tita Memory Scale-IV Raw Score Scaled Score %ile Logical Memory I 36 14 91 Logical Memory II 25 12 75 Recognition 25 51-75 Stroop Color and Word Test (Merino) Raw T-score %ile Errors Word 76 35 7 0 Color 58 38 12 0 Color-Word 22 38 12 4 Interference -11 39 14 [place] Card Sorting Test ([place] Short-form) Raw Descriptor Categories 4 WNL Perseverative Errors 10 Mild FMS 0 WNL DCT Raw score (>17) 15 MSVT Percentage IR (?85) 100 DR (?85) 100 LABORER CAR BARN (?85) 100 PA 100 FR 70 WAIS-IV RDS Raw score 3 subtest version (10) 13 2 subtest version (?6 or 7) 9 Symbol-Digits Modalities Test Raw Z-score %ile Errors Oral Version 34 -1.62 5 5 Tita Adult Intelligence Scale - IV Raw Scaled Score %ile Digit Span Total 25 9 37 Forward 11 11 63 Backward 7 8 25 Sequencing 7 9 37 [place] Making Test Raw T-score %ile Errors Part A 62 33 5 0 Part B 100 46 34 1 *[facility] norms [place] Naming Test Raw T-score %ile (Standard) 55 (58 w/ phonemic cue) 47 39 *[place]auryn norms Letter-Word Generative Fluency Raw T-score %ile F 10 A 11 S 12 Total 33 44 27 *Lauryn norms Semantic Fluency Raw T-score %ile Animals 16 44 27 *[place]auryn norms Geriatric Depression Scale Raw score Descriptor (Short form) 5 Mild Geriatric Anxiety Inventory Raw score Descriptor 3 WNL Judgment of Line Orientation Raw Z-score %ile (Short form O) 9 -1.43 7 Documentation is copied from a Word file reflecting my Dragon dictation for today???s date of service. Electronically signed by: Julio Hoyt, PhD 10/31/17 1036 documented in this encounter Plan of Treatment Not on filedocumented as of this encounter Visit Diagnoses Diagnosis Memory loss - Primary Mild neurocognitive disorder documented in this encounter Care Teams Gas Engine Mechanic Relationship Specialty Start Date End Date Chetna Loredo PCP - General Family Medicine 05/19/16 04/13/18 documented as of this encounter
--- OUTSIDE RECORDS SUMMARY | 2021-11-30 11:50 | XMS_ITS | Encounter Summary ---
:1955 Author Organization [facility] [place] [address] Care Team Providers Name Role Phone Chetna Loredo Primary Care Provider Unavailable Reason for Referral Medication (Routine) - Closed Specialty Diagnoses / Procedures Referred By Contact Refer red To Contact Pharmacy Diagnoses Primary osteoarthritis of right knee Nasir Vega PA-C [facility] [address] [place] [address] Phone: Referral ID Status Reason Start Expiration Visits Visits Date Date Requested Authorized [id number] Closed Medication 10/02/2017 10/02/2018 3 3 authorization Scheduling Instructions Please indicate: Start of treatment: Sta rt Date 10-02-17 Patient Name: Dario Mckeon Ideal Ph one: Gender: male Cell : 1955 Work Phone: Address: [place] [address] Product Information: Synvisc Patient Diagnosis: M17.11 (Unilateral [...] used prior to Synvisc? Yes - (date): 10-02-17 Was a steroid used prior to Synvisc? Yes - (date): 03-30-17 Allergies: -- Morphine -- Anaphylaxis (A LLERGY) -- Sulfamethoxazole -- Anaphylaxis (ALL ERGY) -- Sulfasalazine -- Itching / Pruritis (ALLERGY/intolerance) -- Pollen Extracts -- Other (See Commen ts) -- Runny nose [employer] insurance? No Electronically signed by: Kate Cruz RN 10/02/2017 11:37 AM Reason for Visit Reason Onset Date Comments miguel angel/synvisc 09/29/2017 Encounter Details Date Type Department Care Team Description 09/29/2017 Telephone Orthopaedics - Nasir Abrams PA-C miguel angel/synvisc [address] [facility] [address] [facility] [address] [place], [place] [address] [place] [address] [phone] (Wo rk) Social History Tobacco Use Types [...] encounter Miscellaneous Notes Telephone Encounter - Susy Martínez PA-C - 10/02/2017 11:55 AM EDT Pre-auth placed Electronically signed by: Susy Martínez PA-C 10/02/17 1155 Telephone Encounter - Kate Og RN - 10/02/2017 11:41 AM EDT Phone call to patient confirming 2 patient identifiers. Patient completed three series Synvisc injections right knee 03-30-17. Patient would like to move forward with another round of three series Synvisc injections for the right knee. Discussed I will route to provider for review and signature of order. Discussed he will receive a call from scheduling team when benefit verification has been received. Patient verbalized understanding. Instructed to return call to the office with any questions or concerns. Altaf Jain order pended for review and signature. Telephone Encounter - Rashida Pham - 10/02/2017 10:58 AM EDT Patient calling back asked patient if he is taking any NSAIDS per phone note. Patient states he havenot but he is taking Plavix 75 mg once daily. Patient states he was on aspirin 81 mg but the took him off 2 weeks ago. Patient states he would like a call back to discuss. Please call patient and advise Telephone Encounter - Ann Rojas LPN - 10/02/2017 10:28 AM EDT Attempted to call patient. No answer. Left message for call back. Last Synvisc completed 03/30/18 right knee. Upon call back please ask if patient takes NSAIDS and last date he took NSAIDS. No documentation of steroid injection. Will await call back from patient Electronically signed by: Ann Rojas LPN 10/02/17 1039 Telephone Encounter - Lane Boggs - 09/29/2017 4:34 PM EDT Patient is ready to set up synvisc series 3 for the R knee with Nasir Vega. documented in this encounter Plan of Treatment Scheduled Referrals Name Type Priority Associated Diagnoses Order S chedule Viscosupplement Prior Outpatient Routine Primary 1 Occu rrences Authorization Referral osteoarthritis of starting right knee 10/02/2017 unti l 10/02/2018 documented as of this encounter Visit Diagnoses Diagnosis Primary osteoarthritis of right knee - P rimary documented in this encounter Care Teams Equipment Services Associate Relationship Specialty Start Date End Date Chetna Loredo PCP - General Family Medicine 05/19/16 04/13/18 documented as of this encounter
--- OUTSIDE RECORDS SUMMARY | 2021-11-30 11:50 | XMS_ITS | Encounter Summary ---
:1955 Author Organization [facility] [place] [address] Care Team Providers Name Role Phone Chetna Loredo Primary Care Provider Unavailable Reason for Visit Reason Comments Back Pain left lower Encounter Details Date Type Department Care Team Description 04/06/2017 Emergency Emergency - My Benoit MD [address] [place] [address] [place] [address] (Wo rk) Social History Tobacco [...] Sign Reading Time Taken Comments Blood Pressure 148/85 04/06/2017 12:30 PM EST Pulse 54 04/06/2017 12:30 PM EST Temperature 37.1 ??C (98.8 ??F) 04/06/2017 12:30 PM EST Respiratory Rate 20 04/06/2017 12:30 PM EST Oxygen Saturation 98% 04/06/2017 12:30 PM EST Inhaled Oxygen Concentration - - Weight 111.3 kg (245 lb 6.4 oz) 04/06/2017 12:30 PM EST Height 179.1 cm (5' 10.5) 04/06/2017 12:30 PM EST Body Mass Index 34.71 04/06/2017 12:30 PM EST documented in this encounter Functional [...] Sig Dispensed Refills Start Date End Date ibuprofen (ADVIL,MOTRIN) Take 1 tablet (800 90 tablet 0 04/29/2017 800 MG tabletIndications: mg total) by mouth Primary osteoarthritis of every 8 (eight) right knee hours as needed for up to 30 days. predniSONE (DELTASONE) 50 Take 1 tablet (50 5 tablet 0 04/11/2017 MG tablet mg total) by mouth daily for 5 days. aspirin 325 MG EC tablet Take 1 [...] 1 capsule by 0 03/01/2021 mouth daily. ONETOUCH DELICA LANCETS 30 0 7 09/16/2017 gauge [facility] [place] ULTRA [place] Strp 0 03/27/2017 09/16/2017 vortioxetine (TRINTELLIX) 5 Take 10 mg by 0 08/31/2017 mg tablet mouth daily. documented as of this encounter ED Notes Celsa Silveira PA-C - 04/06/2017 1:25 PM EST History Chief Complaint Patient presents with ??? Back Pain left lower Patient is a 61-year-old male with PMH significant for DM, HTN who presents today with back pain. Patient states he has chronic back pain but it has worsened today. He went to a spine doctor yesterday and they are planning on starting him on shots with a possible ablation. He states that it is worse in the left lower back and radiates down his leg. He tried calling his PCP for pain medicine today, but they were closed. He states in the past steroids have typically helped him with his pain. He moved to the area recently. He denies any loss of bladder or bowel control. No numbness or tingling in the lower legs. Patient has been ambulatory. No fevers or chills. No nausea vomiting or diarrhea. No recent falls or changes to his back pain. No history of IV drug use. No other concerns expressed this time. Past Medical History: Diagnosis Date ??? Diabetes mellitus (HCC) ??? Hyperlipemia ??? Hypertension ??? Ruptured appendix ??? Tachycardia Past Surgical History: Procedure Laterality Date ??? APPENDECTOMY ??? ROBOTIC YOUSIF UNICOMPARTMENTAL KNEE REPLACEMENT Left 11/01/2016 Procedure: MEDIAL YOUSIF - UNICOMPARTMENTAL KNEE REPLACEMENT - ROBOTIC; Surgeon: Miguelito Manuel MD; Location: OUTPATIENT OR; Service: Orthopedics; Laterality: Left; Family History Problem Relation Age of Onset ??? Hypertension Mother ??? Diabetes Father ??? Heart disease Father ??? Stroke Neg Hx Social History Substance Use Topics ??? Smoking status: Former Smoker Types: Cigarettes Quit date: 04/16/1989 ??? Smokeless tobacco: Never Used ??? Alcohol use Yes Comment: occassionally Review of Systems Constitutional: Negative for activity change, appetite change, chills, diaphoresis, fatigue, fever and unexpected weight change. HENT: Negative for congestion. Respiratory: Negative for shortness of breath. Cardiovascular: Negative for chest pain. Gastrointestinal: Negative for abdominal pain, constipation, diarrhea, nausea and vomiting. Genitourinary: Negative for dysuria. Musculoskeletal: Positive for arthralgias and back pain. Skin: Negative for rash. Neurological: Negative for dizziness. Psychiatric/Behavioral: Negative for agitation. All other systems reviewed and are negative. Physical Exam ED Triage Vitals [04/06/17 1230] BP 148/85 MAP (mmHg) Pulse 54 Resp 20 Temp 98.8 ??F (37.1 ??C) SpO2 98 % Physical Exam Constitutional: He is oriented to person, place, and time. He appears well- developed and well-nourished. No distress. HENT: Head: Normocephalic and atraumatic. Right Ear: External ear normal. Left Ear: External ear normal. Nose: Nose normal. Mouth/Throat: Oropharynx is clear and moist. No oropharyngeal exudate. Eyes: Conjunctivae and EOM are normal. Pupils are equal, round, and reactive to light. Neck: Normal range of motion. Neck supple. Cardiovascular: Normal rate and regular rhythm. Exam reveals no gallop and no friction rub. No murmur heard. Pulmonary/Chest: Effort normal and breath sounds normal. No respiratory distress. He has no wheezes.He has no rales. Abdominal: Soft. Bowel sounds are normal. He exhibits no distension. There is no tenderness. Musculoskeletal: Normal range of motion. He exhibits tenderness. He exhibits no edema. No midline CTL tenderness. No erythema edema or obvious deformity to CTL spine. Left SI and soft tissue tenderness. Positive straight leg raise on the right. +2 DP pulses bilaterally. Intact sensation lower extremities, equal bilaterally. 5of 5 strength with knee flexion extension, ankle dorsiflexion and plantar flexion. Lymphadenopathy: He has no cervical adenopathy. Neurological: He is alert and oriented to person, place, and time. No cranial nerve deficit. Skin: Skin is warm and dry. No rash noted. He is not diaphoretic. Psychiatric: He has a normal mood and affect. Nursing note and vitals reviewed. ED Course Procedures MDM MDM : Patient is a 61-year-old male who presents today with back pain. Patient has a history of chronic back pain and states that this is a flare. He notes that he usually recovers well with steroids. He denies any red flag symptoms. Notes his greatest on the left side and radiates down his leg. Exam as above, NAD, AF VSS. Left SI tenderness and soft tissue pain with palpation. 5 out of 5 strength in the lower extremities, NVI distally. See no indication for imaging. No red flag back pain symptoms. No evidence of CV or renal pathology. Doubt acute cord compression, cauda equina or infectious ideology. Patient discharged with Flexeril and prednisone. Advise warm compresses. Emphasized PCP follow-up. No further questions or concerns. Patient states understanding and agrees to plan. Clinical Impression: 1. Chronic left-sided low back pain without sciatica ED Disposition ED Disposition Condition Comment Discharge Good Dario Mckeon discharge to home/self care. Electronically signed by: Celsa Silveira PA-C 04/09/17 0043 HYA Mclaughlin RN - 04/06/2017 12:55 PM EST MELLY Silveira at bedside. HYA Llanos RN - 04/06/2017 12:35 PM EST Pt reports chronic back pain, acute pain today. Pt went to spine doctor yesterday, planning on starting shots, then possible ablation. States pain is worse today, on left lower back. States that PCP isclosed today, and in past steroids for couple days typically helps. documented in this encounter Plan of Treatment Not on filedocumented as of this encounter Visit Diagnoses Diagnosis Chronic left-sided low back pain without sciatica - Primary documented in this encounter Care Teams Electrical Electronics Engineer Relationship Specialty Start Date End Date Chetna Loredo PCP - General Family Medicine 05/19/16 04/13/18 documented as of this encounter
--- OUTSIDE RECORDS SUMMARY | 2021-11-30 11:50 | XMS_ITS | Encounter Summary ---
:1955 Author Organization [facility] [place] [address] Care Team Providers Name Role Phone Chetna Loredo Primary Care Provider Unavailable Encounter Details Date Type Department Care Team Description 03/23/2017 Hospital Encounter Diagnostic Imaging - Nasir Vega PA-C [address] [facility] [address] [place] [address] [address] [place], [place] [phone] (Wo rk) Social History Tobacco Use Types [...] mouth 2 times daily for 30 days. atorvastatin (LIPITOR) 20 Take 20 mg by 0 07/31/2018 MG tablet mouth daily. cyclobenzaprine (FLEXERIL) Take 10 mg by 0 04/06/2017 10 MG tablet mouth [address] 1 drop into 0 019 [...] 1 capsule by 0 03/01/2021 mouth daily. vortioxetine (TRINTELLIX) 5 Take 10 mg by 0 08/31/2017 mg tablet mouth daily. documented as of this encounter Plan of Treatment Not on filedocumented as of this encounter Procedures Procedure Name Priority Date/Time Associated Diagnosis Comme nts XR KNEE LT 3 VIEWS Routine 03/23/2017 2:30 PM Primary osteoart hritis Results for this EST of both knees procedure are in the results section. documented in this encounter Results XR KNEE LT 3 [...] Diagnoses Diagnosis Primary osteoarthritis of both knees documented in this encounter Care Teams Double Ending Machine Operator Relationship Specialty Start Date End Date Chetna Loredo PCP - General Family Medicine 05/19/16 04/13/18 documented as of this encounter
--- OUTSIDE RECORDS SUMMARY | 2021-11-30 11:50 | XMS_ITS | Encounter Summary ---
:1955 Author Organization [facility] [place] [address] Care Team Providers Name Role Phone Chetna Loredo Primary Care Provider Unavailable Reason for Referral MRI/CT/PET Scan (Routine) - Closed Specialty Diagnoses / Procedures Referred By Contact Refer red To Contact Radiology Diagnoses Mild cognitive impairment Tr Sher Jr., [place] [facility] [place] Procedures MR BRAIN WO CONTRAST [address] [facility] [address] [place], [place] [id number] [place] [address] [phone] Referral ID Status Reason Start Date Expiration Date Visits Requ ested Visits Authorized [id number] Closed 09/07/2017 11/07/2018 1 1 Reason for Visit Auth/Cert Specialty Diagnoses / Procedures Referred By Contact Refer red To Contact Diagnoses Acute CVA (cerebrovascular accident) (HCC) Referral ID Status Reason Start Date Expiration Date Visits Requ ested Visits Authorized [id number] 1 1 Encounter Details Date Type Department Care Team Description 09/16/2017 Hospital Encounter MRI Imaging - Tr Sher Jr., MD [address] [place] [id number] [facility] [phone] [address] [place] [address] (Wo rk) Social History Tobacco Use Types [...] Dispensed Refills Start Date End Date aspirin 81 MG EC tablet Take 81 [...] Date/Time Associated Diagnosis Comme nts MR BRAIN WO Routine 09/16/2017 8:40 AM Mild cognitive Results for this CONTRAST EDT impairment procedure are i n the results section. documented in this encounter Results MR BRAIN WO CONTRAST (09/16/2017 8:40 AM EDT) Anatomical Region Laterality Modality Head Magnetic Resonance Specimen (Source) Anatomical Collection Method Collection Time Re ceived Time Location / / Volume Laterality 09/16/2017 9:01 AM EDT Impressions 09/16/2017 12:12 PM EDT 1. ??Left insular/subinsular late acute/ subacute small infarct. 2. ??Background of extensive age-advance d T2/FLAIR chronic white matter changes, as well as innumerable scattered foci of susceptibility artifact throughout both cerebral hemispheres. While these findin gs may be seen in the setting of chronic white matter microvascular ischemic changes and/or chronic hypertension, amyloid angiopathy may also be considered. The physician's access line was called t o contact the office of the ordering clinician, but was unsuccessful. The patient was contacted directly via telephone by Dr. Kojo Phillips at approximately 9:45 AM on 09/16/2017 and was advised to go to the [facility] emergency department for further evaluation. The findings in this report were discuss ed via telephone with TAQUERIA Portillo by Dr. Kojo Phillips at approximately 9:40 AM on 09/16/2017, and was notified that the patient may be arriving in the emergency department for evaluation. Narrative 09/16/2017 12:12 PM EDT MRI BRAIN WITHOUT CONTRAST, 09/16/2017 8:40 AM INDICATION: ??\ G31.84 Mild cognitive im pairment COMPARISON: None. TECHNIQUE: Multiplanar, multi-sequence M R imaging of the entire brain was performed without contrast. FINDINGS: Calvarium/skull base: No focal marrow re placing lesion suggestive of neoplasm. Orbits: Grossly unremarkable. Paranasal sinuses: Imaged portions clear . Brain: Focus of left insular/subinsular high signal on trace diffusion with corresponding low signal on ADC map, likely representing a late acute or subacute infarct (series 7 and 8, image 14 on each se ariana). Extensive age-advanced predominan tly periventricular T2/FLAIR bright white matter changes. Innumerable scattered foci of susceptibility artifact throughout both cerebral hemispheres, with a large area within the right temporo-occipital region. Scattered basal ganglia and thalamic dilated perivascular spaces. No mass effect, acute hemorrhage, or hydrocephalus. Grossly normal flow-related signal in the major intracranial arteries and d ural sinuses. Procedure Note Aubrey Guerra Jr., MD - 09/17/19 18 MRI BRAIN WITHOUT CONTRAST, 09/16/2017 8:4 0 AM INDICATION: \ G31.84 Mild cognitive impa irment COMPARISON: None. TECHNIQUE: Multiplanar, multi-sequence M R imaging of the entire brain was performed without contrast. FINDINGS: Calvarium/skull base: No focal marrow re placing lesion suggestive of neoplasm. Orbits: Grossly unremarkable. Paranasal sinuses: Imaged portions clear . Brain: Focus of left insular/subinsular high signal on trace diffusion with corresponding low signal on ADC map, likely representing a late acute or subacute infarct (series 7 and 8, image 14 on each series). Extensive age-advanced predominantly periventricul ar T2/FLAIR bright white matter changes. Innumerable scattered foci of susceptibility artifact throughout both cerebral hemispheres, with a large area within the right temporo-occipital region. Scattered basa l ganglia and thalamic dilated perivascular spaces. No mass effect, acute hemorrhage, or hydrocephalus. Grossly normal flow-related signal in the major intracranial arteries and dural sinuses. CONCLUSION: 1. Left insular/subinsular late acute/ho bacute small infarct. 2. Background of extensive age-advanced T2/FLAIR chronic white matter changes, as well as innumerable scattered foci of susceptibility artifact throughout both cerebral hemispheres. While these findings may be seen in the setting of chronic white matter micr ovascular ischemic changes and/or chronic hypertension, amyloid angiopathy may also be considered. The physician's access line was called t o contact the office of the ordering clinician, but was unsuccessful. The patient was contacted directly via telephone by Dr. Kojo Phillips at approximately 9:45 AM on 09/16/2017 and was advised to go to the [facility] emergency department for further evaluation. The findings in this report were discuss ed via telephone with TAQUERIA Portillo by Dr. Kojo Phillips at approximately 9:40 AM on 09/16/2017, and was notified that the patient may be arriving in the emergency department for evaluation. Tr Sher Jr., MD IMG MRI ORDERABLES documented in this encounter Visit Diagnoses Diagnosis Mild cognitive impairment Mild cognitive impairment, so stated documented in this encounter Care Teams Paint Line Production Supervisor Relationship Specialty Start Date End Date Chetna Loredo PCP - General Family Medicine 05/19/16 04/13/18 documented as of this encounter
--- OUTSIDE RECORDS SUMMARY | 2021-11-30 11:50 | XMS_ITS | Encounter Summary ---
:1955 Author Organization [facility] [place] [address] Care Team Providers Name Role Phone Chetna Loredo Primary Care Provider Unavailable Reason for Visit Reason Comments New Patient Back pain Encounter Details Date Type Department Care Team Description 04/05/2017 Initial consult Physical Medicine & Petr Brito ylosis of Rehabilitation - Hiralal lumbosacral region Matthieu Leggett without myelopathy or [facility] radiculopathy [place] (Primary Dx) [place], [place] [id number] Social History Tobacco Use Types Packs/Day Years [...] Sign Reading Time Taken Comments Blood Pressure 136/81 04/05/2017 10:31 AM EST Pulse 52 04/05/2017 10:31 AM EST Temperature 36.7 ??C (98.1 ??F) 04/05/2017 10:31 AM EST Respiratory Rate 20 04/05/2017 10:31 AM EST Oxygen Saturation 96% 04/05/2017 10:31 AM EST Inhaled Oxygen Concentration - - Weight 117.2 kg (258 lb 4.8 oz) 04/05/2017 10:31 AM EST Height 180.3 cm (5' 11) 04/05/2017 10:31 AM EST Body Mass Index 36.03 04/05/2017 10:31 AM EST documented in this encounter Functional [...] documented as of this encounter Progress Notes Petr Brito MD - 04/05/2017 10:30 AM EST Dario Mckeon [id number] 1955 (61 y.o.) Referred by Chetna Loredo MD [facility] [place] [address] Chief Complaint Patient presents with ??? New Patient Back pain History of Present Illness Mr. Dario Mckeon is a 61 y.o. male referred by Chetan Whitaker NP (Orthopedics) for consideration of interventional pain management for treatment of the patient's low back pain. Prior medical records from [facility] EMR have been reviewed. In summary, the patient reports chronic low back pain since at least 2014 without inciting event. Pain has gradually worsened with time, and has become refractory tohis usual conservative measures including modalities, PT, and analgesics (as below). The pain affects his lumbar region diffusely, however, is worst in the R mid lumbar region as well as centrally along the lumbar spine. He reports occasional sciatica in the R leg if he forgets to remove his wallet from his R rear pocket, otherwise does not report any radicular sxs. His back pain is dull, achy and shooting in quality, rated 3- 9/10. It is worse with activity, prolonged standing, walking, bending, twisting, lifting and exercise. It is improved with sitting, lying down or rest. He states his and a friend have both undergone ablation therapy for their low back pain with good relief, and he wishes to discuss possible interventions as well. No other concerns reported. Weakness: No focal weakness or falls. B/B dysfunction: No. Saddle anesthesia: No. Constitutional sxs: No fevers or unintentional weight loss. Prior treatments: Medications: Ibuprofen, meloxicam, cyclobenzaprine, tramadol. Modalities: Heat, cold, TENS. Therapy: PT (last round Oct-Feb 2017, no significant relief), chiropractic, exercise. Interventional: None-related. Surgical: None-related. Allergies Allergen Reactions ??? Morphine Anaphylaxis (ALLERGY) ??? Sulfamethoxazole Anaphylaxis (ALLERGY) ??? Sulfasalazine Itching / Pruritis (ALLERGY/intolerance) Meds Ordered in [facility] Medication Sig Dispense Refill ??? aspirin 81 MG EC tablet *ANTIPLATELET* Take 81 mg by mouth daily. ??? atorvastatin (LIPITOR) 20 MG tablet Take 20 mg by mouth daily. ??? cyclobenzaprine (FLEXERIL) 10 MG tablet Take 10 mg by mouth 2 times daily. ??? flecainide (TAMBOCOR) 100 MG tablet Take 100 mg by mouth every 12 hours. ??? ibuprofen (ADVIL,MOTRIN) 800 MG tablet Take 1 tablet (800 mg total) by mouth every 8 (eight) hours as needed for up to 30 days. 90 tablet 0 ??? metFORMIN (GLUCOPHAGE) 500 MG tablet Take [...] daily for 30 days. 60 tablet 0 ??? DEXT 70/POLYCARBOPHIL/PEG/NACL (ARTIFICIAL TEAR SOLUTION OPHT) Place 1 drop into both eyes as needed. ??? ONETOUCH DELICA LANCETS 30 gauge Misc ??? ONETOUCH ULTRA TEST Strp Current Facility-Administered Medications Ordered in [facility] Medication Dose Route Frequency Provider Last Rate Last Dose ??? hylan (SYNVISC) injection 16 mg 16 mg Intra-articular Weekly Nasir Gary, PA-C 16 mg at 03/16/17 1340 ??? hylan (SYNVISC) injection 16 mg 16 mg Intra-articular Weekly Nasir Gary, PA-C ??? hylan (SYNVISC) injection 16 mg 16 mg Intra-articular Weekly Nasir Gary, PA-C 16 mg at 03/30/17 1459 Past Medical History: Diagnosis Date ??? Diabetes [...] Heart disease Father ??? Stroke Neg Hx This note will not be displayed on [facility]. ROS A 14 point review of systems was performed and was negative except per intake form which was reviewed, and per HPI. Physical Exam Vitals: 04/05/17 1031 BP: 136/81 Pulse: 52 Temp: 98.1 ??F (36.7 ??C) Resp: 20 SpO2: 96% PainSc: 4-Four (moderate) Height: 1.803 m (5' 11) Weight: 117.2 kg (258 lb 4.8 oz) BMI (Calculated): 36.1 Constitutional ?? In NAD. Obese. Eyes ?? Pupils equal and round. Conjunctiva normal. GI ?? Abdomen non-tender, no palpable masses or HSM. Resp ?? Equal chest expansion bilaterally. ?? Breathing non-labored. CVS ?? Pedal pulses present and symmetric bilaterally. ?? No cyanosis or edema. Lymph ?? No inguinal, popliteal lymphadenopathy. Psych ?? Alert and oriented. ?? Normal mood and affect. Normal thought content and judgment. Neuro Motor ?? (R) 5/5 HF, KE, TA, EHL, GCS, HE, KF. ?? (L) 5/5 HF, KE, TA, EHL, GCS, HE, KF. Sensory ?? (R) Intact to LT L2-S2 dermatomes. ?? (L) Mildly decreased to LT medial knee (post-knee surgery), otherwise intact to LT L2-S2 dermatomes. Reflexes ?? (R) 2/4 patellar, 1/4 achilles. ?? (L) 0/4 patellar (recent knee surgery), 1/4 achilles. ?? Ankle clonus absent b/l. Other ?? Muscle tone normal. ?? Lhermitte's absent. Musculo-skeletal Spine: Inspection ?? Skin intact, no rash or edema. ?? Contours grossly normal. ROM ?? L-spine moderately decreased all planes, pain worse with extension and R lateral bending a/w reproduction of R lumbar pain. Flexion and extension are associated with midline lumbar pain. Palpation ?? R lumbar paraspinals tender. No bony spinal tenderness present. Special tests ?? (-) SLR b/l. ?? (+) lumbar facet loading R. ?? (-) Neftaly's b/l. Extremities: Inspection ?? Skin intact, no rash or swelling. ?? No gross deformity. Hips ?? ROM decreased w/o reproduction of pain, crepitus, laxity. Mobility ?? Normal unassisted gait. ?? Independent transfers. Diagnostic studies: MRI L-spine 02/22/2017, films were independently reviewed by me: L2-5 bilateral facet joint arthropathy, notable for right L3-4 facet joint effusion. L2-5 DDD with posterior disc bulging. Moderate bilateral L4-5 foraminal stenosis, otherwise mild foraminal and spinal canal stenosis at remaining levels. Assessment / Plan: Chronic axial low back pain, likely multifactorial due to underlying lumbar DDD and facet joint pain(predominantly R). Reviewed exam and imaging findings as well as diagnoses and treatment options with patient. ?? Given very limited response to conservative measures including modalities, analgesics and >3 months of recent PT, we discussed option of R L2-5 MBBs and subsequent RFA if indicated. Reviewed potential R/B/A including but not limited to bleeding, infection, nerve injury, drug allergy/side effects, worsened pain, lack of relief (including possible incomplete relief given likely multiple pain generators contributing to his low back pain), etc. AQA to patient's satisfaction and patient wishes to proceed. Pre-procedure instructions reviewed with patient who verbalized understanding, and patient will be scheduled for the procedure. This evaluation will be forwarded to the referring provider / PCP. 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
--- OUTSIDE RECORDS SUMMARY | 2021-11-30 11:50 | XMS_ITS | Encounter Summary ---
:1955 Author Organization [facility] [place] [address] Care Team Providers Name Role Phone Chetna Loredo Primary Care Provider Unavailable Reason for Visit Reason Comments Follow-up 6 mth f/u, EKG Encounter Details Date Type Department Care Team Description 08/31/2017 Office Visit [facility] Vasquez Krishnan (Primary Dx); Network Cardiology - Chucho CASANOVA PA-C SVT (supraventricular tachycardia) ([facility]) [address] Toney thomason [place] [phone] Social History Tobacco Use Types Packs/Day Years [...] Sign Reading Time Taken Comments Blood Pressure 115/71 08/31/2017 9:59 AM EDT Pulse 64 08/31/2017 9:59 AM EDT Temperature - - Respiratory Rate - - Oxygen Saturation 96% 08/31/2017 9:59 AM EDT Inhaled Oxygen Concentration - - Weight 117 kg (258 lb) 08/31/2017 9:59 AM EDT Height 177.8 cm (5' 10) 08/31/2017 9:59 AM EDT Body Mass Index 37.02 08/31/2017 9:59 AM EDT documented in this encounter Functional [...] documented as of this encounter Progress Notes Vasquez Krishnan II, PA-C - 08/31/2017 10:00 AM EDT Past Medical History: 1. SVT -- R atrial foci -- s/p AFL ablation but unsuccessful AT ablation A. Controlled on flecainide B. Negative nuclear perfusion scan 04/24/2015 2. DM2 3. OA s/p TKA ?? Allergies: Reviewed ?? Current Outpatient Prescriptions Medication Sig Dispense Refill ??? aspirin 81 [...] Misc ??? ONETOUCH ULTRA TEST Strp ??? aspirin 325 MG EC tablet *ANTIPLATELET* Take 1 tablet (325 mg total) by mouth 2 times daily for 30 days. 60 tablet 0 ??? fluticasone (FLONASE) 50 mcg/actuation nasal spray by Nasal route. No current facility-administered medications for this visit. Interval History: Mr Mckeon is here for f/u SVT. He is feeling well and has no complaints today. He has not experienced recurrence of SVT or syncope since last ov. He continues to stay active w/o Sx. Hedenies CP, palpitations, SHERMAN, dizziness, syncope. He has occasional mild dependent edema that resolves overnight. He is scheduled to see a Neurologist tomorrow d/t concerns about short term memory lossand HX of parents having dementia. He mentions that his PCP recently heard a murmur on exam and referred him for further evaluation. ?? Physical Exam: BP 115/71 (Site: Left arm, Position: Sitting, BP Cuff Size: Medium) Pulse 64 Ht 1.778 m (5' 10) Wt 117 kg (258 lb) SpO2 96% BMI 37.02 kg/m?? General: Well appearing and in no distress HEENT: Mucous membranes moist, sclerae anicteric Neck: No JVP elevation, no carotid bruits bilaterally Resp: Clear to auscultation bilaterally Cardiac: Regular rate and rhythm, no audible murmur GI: Soft, nontender, nondistended, bowel sounds present EXT: No clubbing, cyanosis, edema Psych: Alert and oriented x3, normal affect Neuro: nonfocal Skin: No notable rashes and lesions MSK: No joint deformities or inflammation ?? Data Reviewed: EKG today - SR, normal intervals. Zio monitor result - no SVT, occasional premature beats ?? Assessment and Plan: 1. Syncope - almost certainly related to pain meds + dehydration. No recurrence. 2. SVT - no symptoms recurrence. EKG adequate on flecainide. No h/o AFib or AFL documented so no AC at this time. He is only taking lopressor 50 mg once daily, so I am changing to toprol XL 25 mg dailyso that he will have 24 hour coverage. 3. CV risk - he is diabetic. He is asymptomatic. Neg stress test 2016. On ASA, statin, BB. 4. Murmur noted on Exam by PCP - no murmur heard today, so must be subtle. No echo necessary at thistime. I discussed etiology of murmurs and since his is soft, then it is of no concern at this time. Will continue to monitor for progression. Disposition: 6 months Electronically signed by: Vasquez Krishnan II, PA-C 08/31/17 1049 documented in this encounter Miscellaneous Notes Nursing/Ancillary Notes - Heather Johnson CMA - 08/31/2017 10:00 AM EDT I performed an EKG during today's visit. Electronically signed by: Heather Johnson CMA 08/31/2017 11:47 AM Electronically signed by: Heather Johnson CMA 08/31/17 1148 documented in this encounter Plan of Treatment Not on filedocumented as of this encounter Procedures Procedure Name Priority Date/Time Associated Comments Diagnosis CARDIOLOGY SCAN 08/31/2017 4:13 PM Result s for this EDT procedure are i n the results section. EKG - PERFORMED Routine 08/31/2017 10:14 AM SVT Resul ts for this DURING CLINIC VISIT EDT (supraventricular pro cedure are in tachycardia) (HCC) the resul ts section. documented in this encounter Results CARDIOLOGY SCAN (08/31/2017 4:13 PM EDT) Narrative This result has an attachment that is no t available. Default Authenticator Emerson SCANNED DOCUMENTS EKG - PERFORMED BY CLINIC STAFF (08/31/2017 [...] ? QTC ?453 ? ms ? P [place] ? 30 ?degrees ? R [place] ? -45 ? degrees ? T [place] ? 32 ?degrees ? Sinus rhythm Left [...] Interval 440 ms QTC 453 ms P [place] 30 degrees R [place] -45 degrees T [place] 32 degrees Sinus rhythm Left axis deviation When compared with ECG of 12-NOV-2016 13 :05, No significant change was found Confirmed by DR. FUNMILAYO EASON ([id number]) on 08/31/2017 4:07:48 PM Funmilayo Eason MD ECG SPECIAL Performing Organization Address City/State/ZIP Code Phon e Number MUSE documented in this encounter Visit Diagnoses Diagnosis Murmur - Primary Undiagnosed cardiac murmurs SVT (supraventricular tachycardia) (HCC) Other specified cardiac dysrhythmias documented in this encounter Care Teams Oracle Applications Developer Relationship Specialty Start Date End Date Chetna Loredo PCP - General Family Medicine 05/19/16 04/13/18 documented as of this encounter
--- OUTSIDE RECORDS SUMMARY | 2021-11-30 11:50 | XMS_ITS | Encounter Summary ---
:1955 Author Organization [facility] [place] [address] Care Team Providers Name Role Phone Chetna Loredo Primary Care Provider Unavailable Reason for Visit Reason Comments Left Knee Problem 61 yo male ambulatory to [facility] without aids. Presents today for follow-up visit almost 8 mon ths post-op left medial YOUSIF and open medial patellar facetectomy 11-01-16. States overall left knee is improved following surgery. Left knee aspiration and steroid injection performed 05-10-17 by Nasir Vega PA-C (80 cc blood tinged fluid). Reports impro vement in pain and swelling. Encounter Details Date Type Department Care Team Description 06/30/2017 Office Visit Orthopaedics - Miguelito Ash MD Chronic pain of left [address] knee (Primary Dx) [place] [id number] [address] [place] [address] [place] [address] Social History Tobacco Use Types Packs/Day Years [...] as of this encounter Progress Notes Miguelito Manuel MD - 06/30/2017 10:00 AM EDT Date of surgery: 11-01-16. Surgery performed: 8 months post-op left medial YOUSIF and open medial patellar facetectomy 11-01-16. Pain medicine- Managing pain with Naproxen. Progress with PT- Has completed outpatient physical therapy. Left knee aspiration and steroid injection performed 05-10-17 by Nasir Vega PA-C (80 cc blood tinged fluid). Reports improvement in pain and swelling. Employment status: Retired. Dario Mckeon 61 y.o. HPI: Doing better s/p medial YOUSIF. Overall the knee feels better than before surgery. Past Medical History: Diagnosis Date ??? Diabetes [...] Heart disease Father ??? Stroke Neg Hx Review of Systems A complete ROS was performed with pertinent positives/negatives noted in the HPI. The remainder of the ROS are negative. Updated Medication List: aspirin 81 MG EC tablet *ANTIPLATELET* Sig - Route: Take 81 mg by mouth daily. - Oral Class: Historical Med atorvastatin (LIPITOR) 20 MG tablet Sig - Route: Take 20 mg by mouth daily. - Oral Class: Historical Med DEXT 70/POLYCARBOPHIL/PEG/NACL (ARTIFICIAL TEAR SOLUTION OPHT) Sig - Route: Place 1 drop into both eyes as needed. - Both Eyes Class: Historical Med flecainide (TAMBOCOR) 100 MG tablet Sig - Route: Take 100 mg by mouth every 12 hours. - Oral Class: Historical Med metFORMIN (GLUCOPHAGE) 500 MG tablet Sig - Route: Take 500 mg by mouth 2 times daily with meals. - Oral Class: Historical Med metoPROLOL tartrate (LOPRESSOR) 50 MG tablet Sig - Route: Take 50 mg by mouth 2 times daily. - Oral Class: Historical Med multivitamin capsule Sig - Route: Take 1 capsule by mouth daily. - Oral Class: Historical Med naproxen (NAPROSYN) 500 MG tablet Sig - Route: Take 1 tablet (500 mg total) by mouth 2 times daily. - Oral ONETOUCH DELICA LANCETS 30 gauge Misc Class: Historical Med ONETOUCH ULTRA TEST Strp Class: Historical Med aspirin 325 MG EC tablet *ANTIPLATELET* Sig - Route: Take 1 tablet (325 mg total) by mouth 2 times daily for 30 days. - Oral Class: Print vortioxetine (TRINTELLIX) 5 mg tablet Sig - Route: Take 10 mg by mouth daily. - Oral Class: Historical Med Vitals: 06/30/17 1003 PainSc: 1-One (mild) Comment: left knee Physical Exam: NAD Examination of left knee: Incisions are healed. No redness, warmth, or signs of infection. Tenderness to palpation- none specific ROM 0-130 degrees. No effusion Emili 4 mm, firm endpoint. Normal ligamentous exam otherwise. Quad atrophy is present, quad strength is weak. The patient can perform a straight leg raise. excellent quad control. Gait is full Neurovascularly intact distally No calf swelling or palpable cord. Negative calf squeeze test. Compartments are soft, no pain with passive stretch. NVI. Pulses 2+. No lymphedema. Assessment: Doing better on naprosyn- no swelling or pain Plan: Plan- Reviewed surgery and arthroscopy pictures today. Elevate, rest, ice, compression as needed. Naproxen, GI/renal precautions given PT- HEP Reviewed worrisome signs of DVT, including calf swelling, warmth, palpable cord, etc. Patient has noevidence for blood clot today, and will seek medical attention immediately if any concerning symptoms develop. Electronically signed by: Miguelito Manuel MD 06/30/17 1544 documented in this encounter Plan of Treatment Not on filedocumented as of this encounter Visit Diagnoses Diagnosis Chronic pain of left knee - Primary documented in this encounter Care Teams Custodian Athletic Equipment Relationship Specialty Start Date End Date Chetna Loredo PCP - General Family Medicine 05/19/16 04/13/18 documented as of this encounter
--- OUTSIDE RECORDS SUMMARY | 2021-11-30 11:50 | XMS_ITS | Encounter Summary ---
:1955 Author Organization [facility] [place] [address] Care Team Providers Name Role Phone Chetna Loredo Primary Care Provider Unavailable Encounter Details Date Type Department Care Team Description 08/16/2017 Orders Only Pain Services - Neptali Toledo Lumbar f acet Leigh Fernandez MD arthropathy (Primary [address] Dx) [place] [phone] [facility] [phone] [place] [address] Social History Tobacco Use Types Packs/Day Years [...] as of this encounter Visit Diagnoses Diagnosis Lumbar facet arthropathy - Primary Spondylosis of unspecified site without mention of myelopathy documented in this encounter Care Teams Health Sciences Program Coordinator Relationship Specialty Start Date End Date Chetna Loredo PCP - General Family Medicine 05/19/16 04/13/18 documented as of this encounter
--- OUTSIDE RECORDS SUMMARY | 2021-11-30 11:50 | XMS_ITS | Encounter Summary ---
:1955 Author Organization [facility] [place] [address] Care Team Providers Name Role Phone Chetna Loredo Primary Care Provider Unavailable Encounter Details Date Type Department Care Team Description 02/22/2017 Hospital Encounter Diagnostic Imaging - Nasir Vega PA-C [address] [facility] license of [facility] [address] [place], [place] [address] [place], [place] [phone] (Wo rk) Social History Tobacco Use Types [...] nts XR KNEE LT 3 VIEWS Routine 02/22/2017 1:48 PM Primary osteoart hritis Results for this EST of both knees procedure are in Status post left the results partial knee section. replacement documented in this encounter Results XR KNEE LT 3 VIEWS (02/22/2017 1:48 PM EST) Anatomical Region Laterality Modality Thigh, Knee, Leg Digital Radiography Specimen (Source) Anatomical Collection Method Collection Time Re ceived Time Location / / Volume Laterality 02/22/2017 2:01 PM EST Impressions 02/22/2017 3:06 PM EST 1. ??Medial unicompartmental arthroplast y without periprosthetic fracture or osteolysis. 2. ??No acute fracture or malalignment. 3. ??Small joint effusion with small mery unt of intra-articular debris. 4. ??Mild patellofemoral and lateral com partment degenerative changes. Narrative 02/22/2017 3:06 PM EST X-RAY LEFT KNEE (3 VIEWS), 02/22/2017 1:48 PM INDICATION: follow up YOUSIF \ \ M17.0 Velma campos osteoarthritis of both knees \ Z96.652 Status post left partial knee replacement COMPARISON: Multiple knee radiographs, m ost recent from 12/16/2016. MRI from 08/08/2016. Procedure Note Raj Rivas MD - 02/22/2017 X-RAY LEFT KNEE (3 VIEWS), 02/22/2017 1:4 8 PM INDICATION: follow up YOUSIF \ \ M17.0 Velma campos osteoarthritis of both knees \ Z96.652 Status post left partial knee replacement COMPARISON: Multiple knee radiographs, m ost recent from 12/16/2016. MRI from 08/08/2016. CONCLUSION: 1. Medial unicompartmental arthroplasty without periprosthetic fracture or osteolysis. 2. No acute fracture or malalignment. 3. Small joint effusion with small amoun t of intra-articular debris. 4. Mild patellofemoral and lateral julius rtment degenerative changes. Nasir MENG-Olvin IMG DIAGNOSTIC IMAGING ORDER MASOUD documented in this encounter Visit Diagnoses Diagnosis Primary osteoarthritis of both knees Status post left partial knee replacemen t documented in this encounter Care Teams Sprinkler Driver Relationship Specialty Start Date End Date Chetna Loredo PCP - General Family Medicine 05/19/16 04/13/18 documented as of this encounter
--- OUTSIDE RECORDS SUMMARY | 2021-11-30 11:50 | XMS_ITS | Encounter Summary ---
:1955 [facility] [place] [address] Care Team Providers Name Role Phone Chetna Loredo Primary Care Provider Unavailable Reason for Visit Reason Comments Other Pt told to return for MRI fi ndings of a stroke Back Pain mid back spasms started this morning L>R Auth/Cert Specialty Diagnoses / Procedures Referred By Contact Refer red To Contact Diagnoses Acute CVA (cerebrovascular accident) (HCC) Referral ID Status Reason Start Date Expiration Date Visits Requ ested Visits Authorized [id number] 1 1 Encounter Details Date Type Department Care Team Description 09/16/2017 - Hospital Encounter Nursing Unit - [place] [address] 09/18/2017 [place] [address] [place] [address] Bailey Ennis MD [address] [place] [address] [place] [address] Social History Tobacco Use Types Packs/Day Years Used Date Former Smoker Cigarettes Quit: 04/16/19 89 Smokeless Tobacco: Never Used Tobacco Cessation: Counseling Given: No Alcohol Use [...] Sign Reading Time Taken Comments Blood Pressure 127/75 09/18/2017 11:46 AM EDT Pulse 60 09/18/2017 11:46 AM EDT Temperature 36.7 ??C (98 ??F) 09/18/2017 11:46 AM EDT Respiratory Rate 20 09/18/2017 11:46 AM EDT Oxygen Saturation 96% 09/18/2017 11:46 AM EDT Inhaled Oxygen Concentration - - Weight 120.7 kg (266 lb) 09/16/2017 12:51 PM EDT Height 180.3 cm (5' 11) 09/16/2017 12:51 PM EDT Body Mass Index 37.1 09/16/2017 12:51 PM EDT documented in this encounter Functional [...] older) documented as of this encounter Discharge Summaries Bailey Ennis MD - 09/18/2017 12:07 PM EDT Medicine Discharge Summary Patient ID: Sangeeta Mckeon [id number] 61 y.o. 1955 Admit date: 09/16/2017 Discharge date and time: 09/18/2017 Admitting Physician: Valerie Bocanegra MD Discharge Physician: BAILEY ENNIS MD Admission Diagnoses: Acute ischemic stroke, essential hypertension, hyperlipidemia, type 2 diabetes mellitus Discharge Diagnoses: Principal Problem (Resolved): Acute CVA (cerebrovascular accident) (HCC) Active Problems: Type 2 diabetes mellitus without complication (HCC) Essential hypertension Mixed hyperlipidemia Admission Condition: poor Discharged Condition: stable Indication for Admission: Acute ischemic stroke Hospital Course: Patient is a 61-year-old male with a history of SVT status post ablation who was onflecainide, hypertension, diabetes mellitus, hyperlipidemia who was called to the ED after an MRI hehad as an outpatient showed late acute to subacute ischemic stroke. The patient has been having memory issues and has a strong family of Alzheimer's disease so he was scheduled by his neurologist to have an outpatient MRI. Since the MRI showed evidence of an acute stroke he was asked to come to the hospital and admitted to the hospital for further management. Patient had no deficits during hospital stay. There was no tension or progression of his stroke. It is unsure if his memory issues are related to the stroke although based on history they predate the stroke. As patient has been on aspirin already prior to the stroke, he was transitioned to Plavix at discharge. His blood pressure was well controlled during hospital stay. His LDL was at goal and he wascontinued on his home dose of atorvastatin. Carotid Dopplers did not show any significant stenosis. 2D echocardiogram did not show any cardiac source of thrombus. He was seen in consultation by speech therapy and physical therapy and cleared. On the day of discharge patient is alert and oriented. Lungs are clear. Heart sounds are normal and regular. Abdomen is soft and non tender. Patient's Ordered Code Status: Full Code Consults: No orders of the defined types were placed in this encounter. Disposition: Home Patient Instructions: Discharge Medications: Discharge Medication List as of 09/18/2017 2:46 PM START taking these medications Details clopidogrel (PLAVIX) 75 mg tablet *ANTIPLATELET* Take 1 tablet (75 mg total) by mouth daily., Starting 09/18/2017, Until 12/17/2017, Normal CONTINUE these medications which have NOT CHANGED Details ascorbic acid, vitamin C, (VITAMIN C) 500 MG tablet Take 500 mg by mouth every morning., Historical Med atorvastatin (LIPITOR) 20 MG tablet Take 20 mg by mouth daily., Until Discontinued, Historical Med DEXT 70/POLYCARBOPHIL/PEG/NACL (ARTIFICIAL TEAR SOLUTION OPHT) Place 1 drop into both eyes as needed., Until Discontinued, Historical Med flecainide (TAMBOCOR) 100 MG tablet Take 100 mg by mouth every 12 hours., Until Discontinued, Historical Med fluticasone (FLONASE) 50 mcg/actuation nasal spray 2 sprays by Each Nare route daily. , Starting Mon08/21/2017, Until Mon08/21/2018, Historical Med metFORMIN (GLUCOPHAGE) 500 MG tablet Take 500 mg by mouth 2 times daily with meals. , Starting 08/03/2016, Until Discontinued, Historical Med metoPROLOL succinate (TOPROL-XL) 25 MG 24 hr tablet Take 1 tablet (25 mg total) by mouth daily., Starting Mon08/31/2017, Normal multivitamin capsule Take 1 capsule by mouth daily., Until Discontinued, Historical Med naproxen (NAPROSYN) 500 MG tablet Take 1 tablet (500 mg total) by mouth 2 times daily., Starting Mon06/30/2017, Normal STOP taking these medications aspirin 81 MG EC tablet *ANTIPLATELET* aspirin 325 MG EC tablet *ANTIPLATELET* Follow-up Appointments [facility] APPOINTMENTS Appointment Date and Time Provider Department Dept Phone Address 03/06/2018 10:00 AM Dread Eason MD Cardiology [facility] [phone] [place] [phone] Electronically signed by: BAILEY ENNIS MD 09/18/2017 12:07 PM Time spent on discharge: 34 minutes Electronically signed by: Bailey Ennis MD 09/23/17 1529 documented in this encounter Medications at Time [...] times daily. documented as of this encounter Progress Notes Valerie Bocanegra MD - 09/17/2017 12:11 PM EDT Medicine Progress Note LOS: 1 day Synopsis: 61y old hx of SVT, s/p ablation on flecainide and neg nuclear perfusion scan 04/24/15, T2DM,OA s/p TKAwho was called to the ED for an MRI showing late acute to subacute CVA. He was admitted for cva w/up. Principal Problem: Acute CVA (cerebrovascular accident) (HCC) Assessment Plan Late acute/ subacute CVA ?? MRI showed??Left insular/subinsular late acute/subacute small infarct [place] [employer] at [place], he recently got glasses from an ?optometritst Aspirin 325mg po daily TTE, Carotid US will be done in am, then [place] home f/up with Dr Sher PTeval T2DM, controlled BS HOMERO, resume metformin at [place]. HLD Cont lipitor SVT Cont flecainide and metoprolol Subjective:Patient has no new complaints. He is doing well. No focal deficits. He is up walking. . A complete ROS was performed with pertinent positives/negatives noted in the HPI. The remainder of the ROS are negative. Scheduled Meds: ??? ascorbic acid (vitamin C) 500 mg Oral QAM ??? aspirin 325 mg Oral Daily@0900 ??? atorvastatin 20 mg Oral Daily@0900 ??? enoxaparin 40 mg Subcutaneous Daily@0800 ??? flecainide 100 mg Oral Q12H ??? fluticasone 2 spray Each Nare Daily@0900 ??? insulin lispro 2-12 Units Subcutaneous 4x Daily WC and nightly ??? lidocaine 1 patch Transdermal Q24H ??? metoPROLOL succinate 25 mg Oral Daily@0900 Continuous Infusions: PRN Meds:acetaminophen, dextrose, white petrolatum-mineral oil Objective: Vital signs in last 24 hours: Temp: [97.2 ??F (36.2 ??C)-99.6 ??F (37.6 ??C)] 97.8 ??F (36.6 ??C) Pulse: [58-64] 60 Resp: [18-22] 18 BP: (108-136)/(51-83) 122/83 MAP (mmHg): [90-96] 96 SpO2: [95 %-98 %] 96 % Pain Score: 0-Zero O2 Device: None (Room air) Intake/Output last 3 shifts: I/O last 3 completed shifts: In: 1320 [P.O.:1320] Out: - Intake/Output this shift: I/O this shift: In: 300 [P.O.:300] Out: - Physical Exam: General: Alert, oriented X 4, no apparent distress. Mcdp-Oeur-Pfar-Nose-Throat: EOMI, pupils equal, round and reactive to light, oropharynx clear, no LAD. Cardiovascular: Regular rate and rhythm, s1, s2, no murmurs. Chest/Lungs: Clear to auscultation bilaterally, no wheezes or rhonchi. Abdomen: Positive bowel sounds. Abdomen soft, nondistended, nontender. No HSM, rebound or guarding. Extremities: 2+ peripheral pulses Skin: Other: Diagnostic Studies: Results for orders placed or performed during the hospital encounter of 09/16/17 (from the past 24 hour(s)) POCT Glucose Collection Time: 09/16/17 1:04 PM Result Value Ref Range POC GLUCOSE 116 70 - 150 mg/dL POCT Glucose Collection Time: 09/16/17 4:49 PM Result Value Ref Range POC GLUCOSE 133 70 - 150 mg/dL POCT Glucose Collection Time: 09/16/17 8:53 PM Result Value Ref Range POC GLUCOSE 143 70 - 150 mg/dL POCT Glucose Collection Time: 09/17/17 7:52 AM Result Value Ref Range POC GLUCOSE 112 70 - 150 mg/dL Electronically signed by: Valerie Bocanegra MD 09/17/2017 12:11 PM Electronically signed by: Valerie Bocanegra MD 09/17/17 1227 documented in this encounter H&P Notes Valerie Bocanegra MD - 09/16/2017 12:36 PM EDT Medicine Admission History & Physical Principal Problem: Acute CVA (cerebrovascular accident) (HCC) Present on Admission: None Assessment Plan Late acute/ subacute CVA MRI showed Left insular/subinsular late acute/subacute small infarct. Place in observation Aspirin 325mg po daily TTE Carotid US Lipid profile AIC PT eval [place] Pumper at [place], he recently got glasses from an ?optometritst F/up with Dr Sher/neurologist [place] T2DM HOMERO Hold metformin Hyperlipidemia Cont lipitor, may need to increase the dose SVT Cont flecainde Cont metoprolol HPI:Patient is a 61y old hx of SVT, s/p ablation on flecainide and neg nuclear perfusion scan 04/24/15, T2DM,OA s/p TKA who was called to the ED for an MRI showing late acute to subacute CVA. He has beenhaving some memory issues , difficulty with word finding and he has a strong family hx of alzheimers, so was went to see neurologist Dr Sher. He ordered an outpt MRI which he did today. Radiologist tried to reach Dr Sher with the report but couldn't get in touch with him so called patient and asked him to come to the ED. Patient denies any focal weakness. He reports seeing some floaters in his eye. No palpitations, nodizziness. No dysarthria. Past Medical History: Diagnosis Date ??? Acute [...] (Right L2-5); Surgeon: Petr Brito MD; Location: [facility]; Service: Rehab Medicine; Laterality: N/A; ??? LUMBAR / THORACIC MEDIAL BRANCH BLOCK Right 08/15/2017 Procedure: LUMBAR/THORACIC MEDIAL BRANCH BLOCK - Right L2-L5; Surgeon: Neptali Toledo MD; Location: [address] [facility]; Service: Anes Physiatry; Laterality: [...] History Narrative ??? No narrative on file Alcohol Use Risk Assessment ??? How many drinks containing alcohol do you have on a typical day when you are drinking? Allergies Allergen Reactions ??? Morphine Anaphylaxis (ALLERGY) ??? Sulfamethoxazole Anaphylaxis (ALLERGY) ??? Sulfasalazine Itching / Pruritis (ALLERGY/intolerance) ??? Pollen Extracts Other (See Comments) Runny nose Prescriptions Prior to Admission Medication Sig Dispense Refill Last Dose ??? ascorbic acid, vitamin C, (VITAMIN C) 500 MG tablet Take 500 mg by mouth every morning. 09/15/2017at am ??? aspirin 81 MG EC tablet *ANTIPLATELET* Take 81 mg by mouth daily. 09/15/2017 at PM ??? atorvastatin (LIPITOR) 20 MG tablet Take 20 mg by mouth daily. 09/15/2017 at PM ??? DEXT 70/POLYCARBOPHIL/PEG/NACL (ARTIFICIAL TEAR SOLUTION OPHT) Place 1 drop into both eyes as needed. Past Month at Unknown time ??? flecainide (TAMBOCOR) 100 MG tablet Take 100 mg by mouth every 12 hours. 09/15/2017 at PM ??? fluticasone (FLONASE) 50 mcg/actuation nasal spray 2 sprays by Each Nare route daily. 09/15/2017 at Unknown time ??? metFORMIN (GLUCOPHAGE) 500 MG tablet Take 500 mg by mouth 2 times daily with meals. 09/15/2017 at pm ??? metoPROLOL succinate (TOPROL-XL) 25 MG 24 hr tablet Take 1 tablet (25 mg total) by mouth daily. 90 tablet 3 09/15/2017 at Unknown time ??? multivitamin capsule Take 1 capsule by mouth daily. 09/15/2017 at Unknown time ??? naproxen (NAPROSYN) 500 MG tablet Take 1 tablet (500 mg total) by mouth 2 times daily. 60 tablet1 Past Week at Unknown time No current facility-administered medications for this encounter. Review of Systems A complete ROS was performed with pertinent positives/negatives noted in the HPI. The remainder of the ROS are negative. Objective: Patient Vitals for the past 8 hrs: Temp Pulse Resp BP SpO2 09/16/17 1130 - 60 23 128/75 94 % 09/16/17 1100 - 60 (!) 28 127/73 94 % 09/16/17 1016 97.9 ??F (36.6 ??C) 61 18 121/69 97 % Pain Score: 4-Four (moderate) O2 Device: None (Room air) No intake/output data recorded. No intake/output data recorded. Labs: Results for orders placed or performed during the hospital encounter of 09/16/17 (from the past 24 hour(s)) PT/PTT Collection Time: 09/16/17 10:50 AM Result Value Ref Range Prothrombin Time 10.7 9.4 - 12.5 SEC INR 0.91 <5.00 PTT 32.4 25.1 - 36.5 SEC Basic Metabolic Panel Collection Time: 09/16/17 10:50 AM Result Value Ref Range Sodium 142 136 - 144 MMOL/L Potassium 4.2 3.5 - 5.1 MMOL/L Chloride 108 101 - 111 MMOL/L CO2 27 22 - 32 MMOL/L BUN 19.0 8.0 - 26.0 MG/DL Glucose 141 (H) 79 - 115 MG/DL Creatinine 0.93 0.90 - 1.30 MG/DL Calcium 8.5 (L) 8.9 - 10.3 MG/DL Anion Gap 7 6 - 16 MMOL/L Est. GFR Non-Black >60 Est. GFR Black >60 Lipid Profile Collection Time: 09/16/17 10:50 AM Result Value Ref Range Total Cholesterol 121 <=200 MG/DL Triglycerides 282 (H) 14 - 150 MG/DL HDL Cholesterol 32 (L) 40 - 60 MG/DL LDL Cholesterol 33 0 - 99 MG/DL Total Chol / HDL Cholesterol 3.8 Non-HDL Cholesterol 89 MG/DL Hemoglobin A1C Collection Time: 09/16/17 10:50 AM Result Value Ref Range HEMOGLOBIN A1C 6.2 (H) <5.7 % eAG 131 MG/DL eAG Comment CBC and Differential Collection Time: 09/16/17 10:50 AM Result Value Ref Range WBC 6.6 4.6 - 10.2 x 10*3/uL RBC 4.12 (L) 4.69 - 6.13 x 10*6/uL Hemoglobin 12.0 (L) 14.1 - 18.1 G/DL Hematocrit 36.4 (L) 43.5 - 53.7 % MCV 88.3 80.0 - 97.0 FL MCH 29.2 27.0 - 31.2 PG MCHC 33.1 31.8 - 35.4 G/DL RDW 13.6 11.6 - 14.8 % Platelets 258 142 - 424 X 10*3/uL MPV 7.0 (L) 7.8 - 11.0 FL Neutrophil % 58 37 - 80 % Lymphocyte % 28 10 - 50 % Monocyte % 8 0 - 12 % Eosinophil % 5 0 - 7 % Basophil % 1 0 - 2 % Neutrophil Absolute 3.8 2.0 - 6.9 x 10*3/uL Lymphocyte Absolute 1.8 0.6 - 3.4 x 10*3/uL Monocyte Absolute 0.5 0.0 - 0.9 x 10*3/uL Eosinophil Absolute 0.3 0.0 - 0.7 x 10*3/uL Basophil Absolute 0.1 0.0 - 0.2 x 10*3/uL Physical Exam General: Alert, oriented X 4, no apparent distress. Twie-Vpua-Kjfw-Nose-Throat: EOMI, pupils equal, round and reactive to light, oropharynx clear, no LAD. Cardiovascular: Regular rate and rhythm, s1, s2, no murmurs. Chest/Lungs: Clear to auscultation bilaterally, no wheezes or rhonchi. Abdomen: Positive bowel sounds. Abdomen soft, nondistended, nontender. No HSM, rebound or guarding. Extremities: 2+ peripheral pulses Skin: Other: Patient has Pressure Ulcer on Admission?: No Electronically signed by: Valerie Bocanegra MD 09/16/2017 12:36 PM Electronically signed by: Valerie Bocanegra MD 09/16/17 1307 documented in this encounter ED Notes Char Amaya CNA - 09/16/2017 11:42 AM EDT Bed Assignment: Unit A Tele Room 351 Tova Mays MD - 09/16/2017 10:37 AM EDT History Chief Complaint Patient presents with ??? Other Pt told to return for MRI findings of a stroke ??? Back Pain mid back spasms started this morning L>R Has hx of chronic back pain, ever since he got the phone call this morning that he had a stroke it has been spasming intermittent sharp similar to past. No incontinence The history is provided by the patient, the spouse and medical records. Illness Location: Was told this morning after his outpatient MRI he had a subacute stroke Quality: He has had months of intermittent short term memory issues and word finding difficulty so neurologist was doing MRI as he has a high family hx of alzheimers Severity: Mild Onset quality: Gradual Timing: Constant Progression: Waxing and waning Chronicity: New Context: He nor have noticed any episodes of focal weakness, numbness, slurred speech, facial droop Ineffective treatments: Nothing tried Associated symptoms: no abdominal pain, no chest pain, no cough, no diarrhea, no fever, no headaches, no loss of consciousness, no nausea, no rash, no shortness of breath and no vomiting Past Medical History: Diagnosis Date ??? Acute CVA (cerebrovascular accident) (HCC) 09/16/2017 ??? Diabetes mellitus (HCC) ??? Hyperlipemia ??? Hypertension ??? Ruptured appendix ??? Tachycardia Past Surgical History: Procedure Laterality Date ??? APPENDECTOMY ??? LUMBAR / THORACIC MEDIAL BRANCH BLOCK N/A 08/02/2017 Procedure: LUMBAR/THORACIC MEDIAL BRANCH BLOCK (Right L2-5); Surgeon: Petr Brito MD; Location: [facility]; Service: Rehab Medicine; Laterality: N/A; ??? LUMBAR / THORACIC MEDIAL BRANCH BLOCK Right 08/15/2017 Procedure: LUMBAR/THORACIC MEDIAL BRANCH BLOCK - Right L2-L5; Surgeon: Neptali Toledo MD; Location: [address] [facility]; Service: Anes Physiatry; Laterality: [...] Systems Constitutional: Negative for activity change, appetite change and fever. Eyes: Positive for visual disturbance (sometimes sees bright/broken glass/gleidoscope appearance outof corner of both eyes, no black areas or visual field deficits). Respiratory: Negative for cough and shortness of breath. Cardiovascular: Negative for chest pain. Gastrointestinal: Negative for abdominal pain, blood in stool, constipation, diarrhea, nausea and vomiting. Genitourinary: Negative for decreased urine volume, dysuria and hematuria. Musculoskeletal: Positive for back pain. Negative for gait problem. Skin: Negative for rash. Neurological: Positive for speech difficulty. Negative for dizziness, seizures, loss of consciousness, facial asymmetry, weakness, light-headedness, numbness and headaches. All other systems reviewed and are negative. Physical Exam ED Triage Vitals [09/16/17 1016] BP 121/69 MAP (mmHg) Pulse 61 Resp 18 Temp 97.9 ??F (36.6 ??C) SpO2 97 % Physical Exam Constitutional: He is oriented to person, place, and time. He appears well- developed and well-nourished. No distress. HENT: Head: Normocephalic and atraumatic. Right Ear: External ear normal. Left Ear: External ear normal. Nose: Nose normal. Mouth/Throat: Oropharynx is clear and moist. Eyes: Conjunctivae and EOM are normal. Pupils are equal, round, and reactive to light. Neck: Normal range of motion. Neck supple. No JVD present. Cardiovascular: Normal rate, regular rhythm and normal heart sounds. Pulmonary/Chest: Effort normal and breath sounds normal. He exhibits no tenderness. Abdominal: Soft. Bowel sounds are normal. There is no tenderness. Musculoskeletal: Normal range of motion. He exhibits no edema or tenderness. Neurological: He is alert and oriented to person, place, and time. He has normal strength. He displays no tremor. No cranial nerve deficit or sensory deficit. Coordination (normal finger to nose bilaterally) and gait normal. Skin: Skin is warm and dry. No rash noted. Psychiatric: He has a normal mood and affect. His behavior is normal. Nursing note and vitals reviewed. ED Course Procedures Labs ordered, results reviewed and considered in medical decision making. Imaging ordered, results reviewed and considered in medical decision making. EKG: NSR HR 63, LAD, normal intervals, normal QRST. No acute ischemia. Independently viewed and interpreted. MDM MDM 61-year-old male with PMH HLD, HTN, DM, presenting here today because he had an outpatient MRI ordered by his neurologist for some word finding difficulties and memory lapses of the last couple of months which showed subacute stroke therefore he was told to come to the emergency department. He actually has not had any focal neurological deficits, and he felt the word finding difficulty may have been a sign of early Alzheimer's as he is a strong family history of this. The word finding difficulty maycertainly actually be a stroke symptoms but it is been ongoing for several months and is unlikely ivan represented by the subacute ischemic area seen on MRI done this morning. He has a nonfocal normal neurological exam currently. He has no complaints right now other than intermittent spasming recurrent low back pains without cauda equina symptoms. Flexeril ordered. Screening labs and EKG are performed. CT the head was not performed as he already has an MRI from this morning. He does have a remote hi story of some sort of tachycardia requiring ablation, but at that point had symptomatic palpitationsand has not noticed any palpitations recently. Labs, ekg unremarkable. Discussed with hospitalist Dr. Vargas who accepts for admission for further workup and risk stratification of stroke. TPA was considered and not given because patient was not in the window for TPA with a last known well time exceeding 4.5 hours. Clinical Impression: 1. Acute CVA (cerebrovascular accident) (HCC) ED Disposition ED Disposition Condition Comment Admit Attending Provider: VALERIE BOCANEGRA [[id number]] Admitting Provider: VALERIE BOCANEGRA [[id number]] Level of Care: Floor [1] Highest Priority Room Attribute (additional attributes can be included in 'Bed Request Comments' field below): Telemetry [5] Patient Condition: Fair Electronically signed by: Tova Mays MD 09/16/17 1139 Rebekah Neff RN - 09/16/2017 10:30 AM EDT at bedside. documented in this encounter Miscellaneous Notes Nursing/Ancillary Notes - Olya Stone RN - 09/18/2017 3:06 PM EDT Care Coordination Screening Patient Patient: Sangeeta Mckeon : [id number] Service: Hospitalist Location: [facility] Tier Level: 2 Risk Level: Patient meets high risk criteria for post hospital services Adult/child whose hospital treatment will necessitate a change in lifestyle, education plans, employment, role in family constellation or other social function, new diagnosis/disease process.: Yes - assessment required 61-year-old male admitted with acute CVA. Olya Stone RN [phone] Electronically signed by: Olya Stone RN 09/18/17 1829 Nursing/Ancillary Notes - Olya Stone RN - 09/18/2017 3:06 PM EDT Care Coordination Adult Patient Patient: Sangeeta Mckeon : [id number] Service: [facility] Contacts Assessment Completed: In-person interview with Patient, Medical Record reviewed The patient's status at this time is:: Able to communicate Prior to admission, patient resided at: Private residence The patient's decision maker is:: Patient At discharge, will patient return to prior residence: Yes Barriers to education: No barriers Assessment Is this patient at baseline?: Yes Was patient independent with ADLs prior to admission?: Yes Was patient independent with mobility prior to admission?: Yes Does this patient have or need any DME?: No Does this patient have or need any home health services?: No Does this patient have or need any personal care services?: No Does this patient have an LVAD?: No Social Does patient have a mental health diagnosis?: No Suspicion/Signs/Symptoms of Abuse: No Suspicion/Signs/Symptoms of Neglect: No Patient's Rastafarian/Spiritual Information likely to impact Medical Treatment: No Acute Rehab Patients Only Does this patient require acute rehab services?: No Educational/Vocational History Barriers to education: No barriers Discharge How will patient obtain prescription meds at discharge?: Commercial Insurance Type of Payer Source: Commercial Insurance How will this patient obtain follow-up care after discharge?: PCP office How will this patient reach the discharge destination?: Family/Friends Is this a Chronic Dialysis patient?: No PHQ-2 Questionnaire (Complete on any patient admitted with a stroke) Little interest or pleasure in doing things: Not at all Feeling down, depressed or hopeless: Not at all Score: 0 Title: Care Coordination () Topic: Discharge Instructions (Resolved) Point: Discussed the tentative discharge plan (Resolved) Learning Progress Summary Learner Status Readiness Method Response Comment Documented by Patient Done Acceptance Explanation Verbalizes Understanding 09/18/17 1825 User Ashraf Initials Effective Dates Name Provider Type Discipline 10/11/12 - Olya Stone RN Case Manager Nurse Olya Stone RN [phone] Electronically signed by: Olya Stone RN 09/18/17 183 Nursing/Ancillary Notes - Olya Stone RN - 09/18/2017 3:06 PM EDT Care Coordination Discharge Note Patient: Sangeeta Mckeon : 1955 Service: Hospitalist Location: [address] [place] [address] Inpatient Disposition upon Discharge: Home or Self Care Discharge Disposition upon Discharge: Home or Self Care Discharge Referrals Case closed, patient/family in agreement with disposition plan: Yes Patient cleared PT and ST. No discharge needs were identified. Patient discharged to home with family. Olya Stone RN [phone] Electronically signed by: Olya Stone RN 09/18/17 183 Therapy Evaluation - Rubi Schneider, [facility]-CALL WORKER PERSON - 09/18/2017 3:06 PM EDT Speech Pathology Inpatient Cognitive-Linguistic Evaluation Note CPT : 08086 Sangeeta Mckeon 61 y.o. A Cognitive-Linguistic Evaluation was conducted on September 18, 2017. Family/Caregiver was present for the assessment. Patient does independently manage household finances and bill paying. Patient is right handed. Past and current medical history has been reviewed and can be found in patient's medical record.. Patient's reports recent change in cognitive function with decreased attention and decreased ability to recall recent conversations resulting in significant frustration and impeding patient's effectiveness of communication. Impressions: Patient's overall scores on all test were within normal limits. However he does consistently show deficits for immediate memory. Given his overall high level of functioning on all test patient was provided with activities to improve and focused on immediate and recent memory and attention to task. Additionally, compensatory strategies were provided for patient to try to utilize. If patient continues to experience difficulty with memory and attention to task and he may benefit from further speech therapy for cognitive reorganization. Results and recommendations were discussed with patient and his . Findings: Patient's cognitive-linguistic function was evaluated utilizing the complete Mini-Mental State Examination, Ross Information Processing Assessment(RIPA), [place] Cognitive Assessment( MOCA) and informal assessment Performance on the different subtests were as follows: Mini Mental State Exam Orientation 10/10 Registration 3/3 Attention and calculation 2/5 Recall 3/3 Language 9/9 Total Score 27 (0-17 severe cognitive impairment, 18 - 23 Mild cognitive impairment, 24-30 No cognitive impairment) Mini-Mental: 27/ 30 (n = greater than or equal to 24) [place] cognitive assessment (MOCA) Visuospatial/executive function 5/5 Naming 3/3 Attention 2/6 Language 2/3 Abstraction 1/2 Delayed recall 1/5 Orientation 6/6 Total: 25/30 (<10-severe, 10-17-mod, 18-25- mild, >25 WNL; Add 1 point if <12 years of eduction RIPA Immediate memory- Recent memory Temporal orientation Problem solving and abstract reasoning Auditory processing and retention Patient presents with substandard score of 9 for subtest-immediate memory which is indicative of marked (moderate) deficit. Goals: Multidisciplinary Problems (Active) Not on file Prognosis: good with continued medical recovery Plan: No cognitive-linguistic treatment recommended at this time. Note: Portions of this record has been created using [employer] voice recognition software. Errors have been sought and corrected, but may not always be located. Such creation errors do not reflect on the standard of medical care. If there are any errors or if you have any questions, please call for clarification.. Rubi Schneider CCC-CALL WORKER PERSON September 18, 2017 4:26 PM Electronically signed by: IGNACIO Potter 09/18/17 1643 Patient Care Conference - Olya Stone RN - 09/18/2017 3:06 PM EDT Inpatient Care Coordination Team Conference Note Date: 09/18/2017 Time: 6:28 PM Patient Name: Sangeeta Mckeon Date of : 1955 Sex: Male Room/Bed: 351/351-1 Payor Info: Payor: BCBS MANAGED CARE / Plan: BCBS BLUE OPTIONS PPO / Product Type: PPO / Admitting Diagnosis: Acute CVA (cerebrovascular accident) (HCC) [I63.9] Admit Date/Time: 09/16/2017 10:20 AM Admission Comments: No comment available Primary Diagnosis: Acute CVA (cerebrovascular accident) (HCC) Principal Problem: Acute CVA (cerebrovascular accident) (HCC) Patient Active Problem List Diagnosis Date Noted ??? Mixed hyperlipidemia 09/18/2017 ??? Spondylosis without myelopathy or radiculopathy, lumbar region 09/13/2017 ??? Lumbar facet arthropathy (HCC) 08/09/2017 ??? Effusion of knee 08/07/2017 ??? History of partial knee replacement 05/10/2017 ??? Spondylosis of lumbosacral region without myelopathy or radiculopathy 04/25/2017 ??? Joint stiffness of spine ??? S/P left unicompartmental knee replacement 11/15/2016 ??? Status post left partial knee replacement ??? Decreased range of motion of left knee ??? Weakness of both lower extremities ??? Gait abnormality ??? Type 2 diabetes mellitus without complication (HCC) 10/17/2016 ??? Essential hypertension 10/17/2016 ??? Tachycardia 10/17/2016 ??? Arthritis of knee 08/26/2016 ??? DDD (degenerative disc disease), lumbar 08/17/2016 ??? Spondylosis of lumbar region without myelopathy or radiculopathy 08/17/2016 ??? Chronic bilateral low back pain with right-sided sciatica 07/28/2016 ??? Primary osteoarthritis of left knee 07/28/2016 ??? Primary osteoarthritis of both knees 04/25/2016 ??? Left knee pain 04/25/2016 Team Members Present: Dye Room Helper, Midlevel Provider, Physical Therapist, Sandstone Inspector Repairer, Nurse, Roster Clerk, Physician Expected Discharge Date: 09/18/2017 Olya Stone RN [phone] Electronically signed by: Olya Stone RN 09/18/17 1828 Nursing/Ancillary Notes - Susy Adame RN - 09/18/2017 2:43 PM EDT Orders reviewed & completed as indicated, discharge verified by Electronically signed by: Johanna Mathew RN 09/18/17 1443 Electronically signed by: Susy Adame RN 09/18/17 1443 Therapy Evaluation - Destini Briggs, PT - 09/17/2017 8:58 AM EDT Physical Therapy General Evaluation Inpatient Precautions Isolation: No active isolations Precautions/Restrictions Precautions: none Restrictions: none Pertinent Hospital Course: Patient in observation due to abnormalities on MRI, showing subacute CVA Assessment A low complexity physical therapy evaluation was completed with this patient, admitted with MRI findings of sub acute CVA, and short term memory/word finding deficits. Performed balance screening tests, and patient WFL for dynamic standing balance challenges including unilateral stance, standing with eyes closed. Patient also with equal strength x 4 extremities and WNL coordination testing. Gait without deficits. Patient with chronic lower back pain which was his only complaint today. No further physical therapy indicated today. Recommendations PT Recommendations: No further PT indicated Problem List Problem List: Pain PT (Active) There are no active problems. PT (Resolved) There are no resolved problems. Plan Plan of care discussed with and agreed on by the patient . PT Next Visit PT Frequency: no further PT intervention indicated Reason for referral: Evaluate and Treat for Mobility Hospital Course: Patient under observation de to abnormal MRI findings showing subacute CVA Past Medical History Past Medical History: Diagnosis Date ??? Acute CVA (cerebrovascular accident) (HCC) 09/16/2017 ??? Arthritis ??? 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 Diabetes mellitus (HCC) ??? Hyperlipemia ??? Hypertension ??? Ruptured appendix ??? Tachycardia Past Surgical History Past Surgical History: Procedure Laterality Date ??? APPENDECTOMY ??? JOINT REPLACEMENT left knee replacement ??? LUMBAR / THORACIC MEDIAL BRANCH BLOCK N/A 08/02/2017 Procedure: LUMBAR/THORACIC MEDIAL BRANCH BLOCK (Right L2-5); Surgeon: Petr Brito MD; Location: [facility]; Service: Rehab Medicine; Laterality: N/A; ??? LUMBAR / THORACIC MEDIAL BRANCH BLOCK Right 08/15/2017 Procedure: LUMBAR/THORACIC MEDIAL BRANCH BLOCK - Right L2-L5; Surgeon: Neptali Toledo MD; Location: [address] [facility]; Service: [facility] Phys[facility]; Laterality: Right; ??? ROBOTIC YOUSIF UNICOMPARTMENTAL KNEE REPLACEMENT Left 11/01/2016 Procedure: MEDIAL YOUSIF - UNICOMPARTMENTAL KNEE REPLACEMENT - ROBOTIC; Surgeon: Miguelito Manuel MD; Location: OUTPATIENT OR; Service: Orthopedics; Laterality: Left; ??? SKIN BIOPSY PT Order Details PT Physical Therapy Mobility Safety Frequency: DC Pending within 24 HRS Number of Occurrences: 1 Occurrences Order Questions: ??? Type of Evaluation Requested: Safety ??? Specific Instructions/Precautions None Subjective Patient pleasant, cooperative Informed Consent Informed Consent Consent for Eval/treat and plan of care discussed with:: Patient Nurse gave clearance to see patient. Social Factors: Social Factors Patient Lives (with) : Significant other Prior to admission, patient resided at: Private residence Home Layout: One level, Stairs to enter with unilateral handrails Bathroom Shower/Tub: Walk-in shower Bathroom Toilet: Standard Bathroom Equipment: Grab bars in shower, Shower chair Bathroom Accessibility: Accessible Person(s) Available to assist at discharge: Spouse/significant other Amount of assistance available at discharge: 24 hour assistance DME Available: Walker (rolling) Prior Function Level of [place]: Independent with ADLs and functional transfers, Independent with homemaking with ambulation Vocational: Retired. History of falls: Fall in the last year?: No An injury due to a fall?: No Feel unsteady or off balance?: No Pain: Pain Assessment Pain Assessment: Numerical (0-10) Pain Scale Pain Score: 3-Three (mild) Location: lower back Pain Intervention(s): Medication (given by nursing);Repositioned Pain Type: Chronic pain Pain Descriptors: Aching Effect of Pain on Daily Activities: Altered mobility Objective Patient healthy appearance Patient Level of Care: Pvt telemetry Patient assessed in presence of: alone Appearance: No Lines/Leads Pt position on arrival: Supine Mental Status: alert and oriented Orientation: Oriented x 4 Follow commands: 4-step Vitals: Oxygen saturation 95% Skin: Skin: Intact in visualized areas Edema: Edema Edema: No edema ROM: PROM - RUE PROM Overall RUE: Within Normal Limits PROM - LUE PROM Overall LUE: Within Normal Limits PROM RLE (degrees) PROM Overall RLE: Within Normal Limits PROM LLE (degrees) PROM Overall LLE: Within Normal Limits Strength: RUE Strength RUE Overall Strength: Within Normal Limits LUE Strength LUE Overall Strength: Within Normal Limits Strength RLE RLE Overall Strength: Within Normal Limits Strength LLE LLE Overall Strength: Within Normal Limits Sensation: Light Touch: UE intact;LE intact Muscle Tone: Coordination: R Pronation/Supination : Intact L Pronation/Supination : Intact R Fingertip to Nose: Intact L Fingertip to Nose: Intact R Heel to Ayala: Intact L Heel to Ayala: Intact Alternating Toe Tap: Intact Functional Mobility Ashraf: D= dependent (pt performs <25% of activity), Max A= maximum assistance (pt performs 25-50% of activity), Mod A= moderate assistance (pt performs 50-75% of activity), Min A= minimal assistance (pt performs 75% or more of activity), CGA= contact guard assistance (requires physical contact), SBA=stand by assistance (person assisting is positioned to assist, but not touching the patient; fair probability of patient requiring assist), Sup= supervision (in line of sight), Mod I= modified independent (assistive device or other external support, more than reasonable time or safety considerations),I= independent, NT= not tested Rolling Left Rolling Left Assist Level: Independent Rolling Right Rolling Right Assist Level: Independent Supine to Sit Supine to Sit: To edge of bed Supine to Sit Assistance Level: Independent Sit to Supine Sit to Supine: From edge of bed Sit to Supine Assistance Level: Independent Supine Scoot Supine Scoot: Posterior Supine Scoot Assistance Level: Independent Seated Scoot Seated Scoot: Posterior;Lateral;Anterior Seated Scoot Assist Level: Independent Sit to Stand Sit to Stand Assist Level: Independent Stand to Sit Stand to Sit Assist Level: Independent How much difficulty sitting down on / standing up from a chair with arms?: None How much difficulty moving from lying on back to sitting on side of bed?: None How much help from another person moving to and from a bed to a chair?: None How much help from another person needed to walk in hospital room?: None How much help from another person for climbing 3-5 steps with a railing?: None Balance: Sitting - Static: Good (maintains sitting position against challenged to stability) Sitting - Dynamic: Good (able to reach with weight shift to retrieve object) Standing - Static: Good (maintains standing position against challenge to stability) Standing - Dynamic: Good (able to maintain balance while reaching out of base of support) InterventionDetails: Stadning feet together 1 min without sway I, unilateral stance on each leg 10 sec, standing eyes closed 10 sec without loss of balance. Locomotion: Gait Assistance Level: Independent Assistive Device: None Surface: Level tile Ambulation Deviations: No deviations Education: Patient educated regarding purpose of physical therapy evaluation Response to education: Patient verbalized understanding and demonstrates understanding Interventions: Evaluation only, no further intervention needed Patient left: Supine;Nursing staff aware of patient's position;Needs in reach Treatment Time PT Time in Time Codes: 20 minutes PT Total Treatment Time: 20 minutes Charges 09/17/2017 Code Description Service Provider Modifiers Quantity 24123 (CPT??) Hc Pt Eval Low Complex Destini Briggs, PT GP 1 Time of Service Note Type Status None Electronically signed by: Destini Briggs, PT 09/17/2017 8:59 AM Electronically signed by: Destini Briggs, PT 09/17/17 0906 Nursing/Ancillary Notes - Zaria Bob RN - 09/17/2017 6:54 AM EDT Report given and orders reviewed by BERNARD Clancy. Electronically signed by: Zaria Bob RN 09/17/20176:54 AM Electronically signed by: Zaria Bob RN 09/17/17 0654 Nursing/Ancillary Notes - Julieth Toro RN - 09/16/2017 7:11 PM EDT Report given and orders reviewed with RN. Zaria Electronically signed by: Julieth Toro RN 09/16/17 1911 documented in this encounter Plan of Treatment Not on filedocumented as of this encounter Procedures Procedure Name Priority Date/Time Associated Comments Diagnosis CARDIOLOGY SCAN 09/18/2017 8:58 PM Result s for this EDT procedure are i n the results section. CUS TTE SURFACE Routine 09/18/2017 11:47 Acute CVA Results for this COMPLETE ECHO ADULT AM EDT (cerebrovascular proc edure are in accident) (HCC) the results section. POCT GLUCOSE BATTERY Routine 09/18/2017 11:45 Res ults for this DEVICE AM EDT procedure are i n the results section. US DUPLEX CAROTID Routine 09/18/2017 9:33 AM Acute CVA Resu lts for this BILATERAL EDT (cerebrovascular procedure a re in accident) (HCC) the results section. POCT GLUCOSE BATTERY Routine 09/18/2017 6:53 AM R esults for this DEVICE EDT procedure are i n the results section. POCT GLUCOSE BATTERY Routine 09/17/2017 9:17 PM R esults for this DEVICE EDT procedure are i n the results section. POCT GLUCOSE BATTERY Routine 09/17/2017 4:35 PM R esults for this DEVICE EDT procedure are i n the results section. POCT GLUCOSE BATTERY Routine 09/17/2017 12:01 Res ults for this DEVICE PM EDT procedure are i n the results section. POCT GLUCOSE BATTERY Routine 09/17/2017 7:52 AM R esults for this DEVICE EDT procedure are i n the results section. POCT GLUCOSE BATTERY Routine 09/16/2017 8:53 PM R esults for this DEVICE EDT procedure are i n the results section. POCT GLUCOSE BATTERY Routine 09/16/2017 4:49 PM R esults for this DEVICE EDT procedure are i n the results section. POCT GLUCOSE BATTERY Routine 09/16/2017 1:04 PM R esults for this DEVICE EDT procedure are i n the results section. EKG - PERFORMED BY STAT 09/16/2017 10:52 Resul ts for this NURSING AM EDT procedure are i n the results section. PT-INR/APTT STAT 09/16/2017 10:50 Results for this AM EDT procedure are i n the results section. LIPID PROFILE STAT 09/16/2017 10:50 Results fo r this AM EDT procedure are i n the results section. CBC WITH AUTO STAT 09/16/2017 10:50 Results fo r this DIFFERENTIAL PANEL AM EDT procedure are in the results section. CBC AND DIFFERENTIAL Routine 09/16/2017 10:50 Res ults for this AM EDT procedure are i n the results section. HEMOGLOBIN A1C STAT 09/16/2017 10:50 Results f or this AM EDT procedure are i n the results section. BASIC METABOLIC PANEL STAT 09/16/2017 10:50 Re sults for this AM EDT procedure are i n the results section. documented in this encounter Results CARDIOLOGY SCAN (09/18/2017 8:58 PM EDT) Narrative This result has an attachment that is no t available. Default Authenticator [employer] SCANNED DOCUMENTS CUS TTE SURFACE COMPLETE ECHO ADULT (09/18/2017 11:47 AM EDT) P athologist Signature Left Ventricular 55 % [facility] EF Specimen (Source) Anatomical Collection Method Collection Time Re ceived Time Location / / Volume Laterality 09/18/2017 10:47 AM EDT Narrative [facility] - 09/18/2017 3:37 PM EDT [address] [address] Transthoracic Echocardiogram Report Name: SANGEETA MCKEON ?? Study Date: 09/18/2017 ?? Height: 71 in ?? Patient Location: 351 ?? Weight: 266 lb : 1955 ?? Gender: Male ?? BSA: 2.4 m2 Age: 61 yrsEthnicity: ?? BP: 1 24/76 mmHg Reason For Study: Acute CVA (cerebrovasc ular accident) (HCC) History: HYPERTENSION,HYPERLIPIDEMIA Ordering Physician: [id number] COFFEY Performed By: RIC SMITH Fellow: MD Dread Eason, [id number] Referring Physician: SELF, A REFERRAL PROCEDURE Study Quality: Technically adequate. Iftikhar ble study performed to evaluate for possible shunt. SUMMARY Normal LV systolic function. Diastolic dysfunction. No significant valvular disease. Intact interatrial septum by saline cont rast. No prior. FINDINGS: LEFT VENTRICLE The left ventricular size is normal. The re is normal left ventricular wall thickness. Left ventricular systolic fun ction is normal. LV ejection fraction = 55-60%. Left ventricular filling patte rn is impaired relaxation. No segmental wall motion abnormalities seen in the left ventricle. RIGHT VENTRICLE The right ventricle is normal in size an d function. LEFT ATRIUM The left atrial size is normal. RIGHT ATRIUM Right atrial size is normal. The interat rial septum is intact with no evidence for an atrial septal defect. In jection of agitated saline showed no itcke-ke-dpgz shunt. AORTIC VALVE The aortic valve is normal in structure and function. There is no aortic regurgitation. MITRAL VALVE The mitral valve is normal in structure and function. There is no mitral regurgitation noted. TRICUSPID VALVE The tricuspid valve is normal in structu re and function. There is trace tricuspid regurgitation. PULMONIC VALVE Structurally normal pulmonic valve. Ther e is no pulmonic valvular regurgitation. ARTERIES The aortic root is normal size. VENOUS Pulmonary venous flow pattern is normal. IVC size was normal. EFFUSION There is no pericardial effusion. MMode/2D Measurements & Calculations IVSd: 1.3 cm LVIDd: 5.2 cm LVPWd: 1.3 cm LVIDs: 3.2 cm LA dim: 4.1 cm Ao root: 3.6 cm EDV(MOD-sp4): 86.4 ml IVS/LVPW: 1.0 FS: 39.3 % EDV(Teich): 131.5 ml ESV(Teich): 40.3 ml ESV(MOD-sp4): 35.8 ml EDV(cubed): 143.4 ml ESV(cubed): 32.1 ml EF(cubed): 77.6 % LV mass(C)d: 277.7 grams LV mass(C)dI: 116.7 grams/m2 SV(Teich): 91.1 ml SI(Teich): 38.3 ml/m2 SV(cubed): 111.2 ml SI(cubed): 46.7 ml/m2 Ao root area: 10.0 cm2 ACS: 2.2 cm LA/Ao: 1.2 LVOT diam: 2.1 cm LVOT area: 3.4 cm2 LVOT area(traced): 3.5 cm2 SV(MOD-sp4): 50.6 ml SI(MOD-sp4): 21.3 ml/m2 Doppler Measurements & Calculations MV E max anuel: 90.5 cm/sec MV A max anuel: 87.3 cm/sec MV E/A: 1.0 MV dec time: 0.20 sec SV(LVOT): 73.4 ml Ao V2 max: 146.6 cm/sec Ao max P.6 mmHg Ao max PG (full): 5.3 mmHg Ao V2 mean: 105.7 cm/sec Ao mean P.9 mmHg Ao mean PG (full): 3.0 mmHg Ao V2 VTI: 31.6 cm BEATRIZ (VTI): 2.3 cm2 LV V1 VTI: 21.8 cm SV(Ao): 317.7 ml SI(Ao): 133.4 ml/m2 SI(LVOT): 30.8 ml/m2 PA max P.7 mmHg Dimensionless Index (VTI): 0.69 AVAi(VTI) cm^2/m^2: 0.97 cm2 SV index(LVOT): 30.8 ml/m2 Reading Physician: MD Dread Eason, [id number] 09/18/2017 03:3 7 PM Procedure Note Dread Eason MD - 09/18/2017For matting of this note might be different from the original. [address] [address] Transthoracic Echocardiogram Report Name: SANGEETA MCKEON Study Date: Height: 71 in Patient Location: 351 Weigh t: 266 lb : 1955 Gender: Male BSA: 2.4 m2 Age: 61 yrsEthnicity: BP: 124/ 76 mmHg Reason For Study: Acute CVA (cerebrovasc ular accident) (HCC) History: HYPERTENSION,HYPERLIPIDEMIA Ordering Physician: [id number] VALERIE DUNLAP Performed By: RIC SMITH Fellow: MD Dread Eason, [id number] Referring Physician: SELF, A REFERRAL PROCEDURE Study Quality: Technically adequate. Iftikhar ble study performed to evaluate for possible shunt. SUMMARY Normal LV systolic function. Diastolic dysfunction. No significant valvular disease. Intact interatrial septum by saline cont rast. No prior. FINDINGS: LEFT VENTRICLE The left ventricular size is normal. The re is normal left ventricular wall thickness. Left ventricular systolic fun ction is normal. LV ejection fraction = 55-60%. Left ventricular filling patte rn is impaired relaxation. No segmental wall motion abnormalities seen in the left ventricle. RIGHT VENTRICLE The right ventricle is normal in size an d function. LEFT ATRIUM The left atrial size is normal. RIGHT ATRIUM Right atrial size is normal. The interat rial septum is intact with no evidence for an atrial septal defect. In jection of agitated saline showed no gltlc-af-fudp shunt. AORTIC VALVE The aortic valve is normal in structure and function. There is no aortic regurgitation. MITRAL VALVE The mitral valve is normal in structure and function. There is no mitral regurgitation noted. TRICUSPID VALVE The tricuspid valve is normal in structu re and function. There is trace tricuspid regurgitation. PULMONIC VALVE Structurally normal pulmonic valve. Ther e is no pulmonic valvular regurgitation. ARTERIES The aortic root is normal size. VENOUS Pulmonary venous flow pattern is normal. IVC size was normal. EFFUSION There is no pericardial effusion. MMode/2D Measurements & Calculations IVSd: 1.3 cm LVIDd: 5.2 cm LVPWd: 1.3 cm LVIDs: 3.2 cm LA dim: 4.1 cm Ao root: 3.6 cm EDV(MOD-sp4): 86.4 ml IVS/LVPW: 1.0 FS: 39.3 % EDV(Teich): 131.5 ml ESV(Teich): 40.3 ml ESV(MOD-sp4): 35.8 ml EDV(cubed): 143.4 ml ESV(cubed): 32.1 ml EF(cubed): 77.6 % LV mass(C)d: 277.7 grams LV mass(C)dI: 116.7 grams/m2 SV(Teich): 91.1 ml SI(Teich): 38.3 ml/m2 SV(cubed): 111.2 ml SI(cubed): 46.7 ml/m2 Ao root area: 10.0 cm2 ACS: 2.2 cm LA/Ao: 1.2 LVOT diam: 2.1 cm LVOT area: 3.4 cm2 LVOT area(traced): 3.5 cm2 SV(MOD-sp4): 50.6 ml SI(MOD-sp4): 21.3 ml/m2 Doppler Measurements & Calculations MV E max anuel: 90.5 cm/sec MV A max anuel: 87.3 cm/sec MV E/A: 1.0 MV dec time: 0.20 sec SV(LVOT): 73.4 ml Ao V2 max: 146.6 cm/sec Ao max P.6 mmHg Ao max PG (full): 5.3 mmHg Ao V2 mean: 105.7 cm/sec Ao mean P.9 mmHg Ao mean PG (full): 3.0 mmHg Ao V2 VTI: 31.6 cm BEATRIZ (VTI): 2.3 cm2 LV V1 VTI: 21.8 cm SV(Ao): 317.7 ml SI(Ao): 133.4 ml/m2 SI(LVOT): 30.8 ml/m2 PA max P.7 mmHg Dimensionless Index (VTI): 0.69 AVAi(VTI) cm^2/m^2: 0.97 cm2 SV index(LVOT): 30.8 ml/m2 Reading Physician: MD Dread Eason, [id number] 09/18/2017 03:3 7 PM Valerie Bocanegra MD CV ECHO ORDERABLES Performing Organization Address City/State/ZIP Code Phon e Number [facility] POCT Glucose (09/18/2017 11:45 AM EDT) P athologist Signature POC GLUCOSE 91 70 - 150 [place] mg/dL Specimen Anatomical Collection Method Collection Time Receive d Time (Source) Location / / Volume Laterality 09/18/2017 11:45 09/18/2017 AM EDT 11:58 AM EDT Bailey Ennis MD POCT ORDERABLES - DEVICE Performing Organization Address City/[facility]/ZIP Code Phon e Number [place] US DUPLEX CAROTID BILATERAL (09/18/2017 9:33 AM EDT) Anatomical Region Laterality Modality Ultrasound Specimen (Source) Anatomical Collection Method Collection Time Re ceived Time Location / / Volume Laterality 09/18/2017 9:39 AM EDT Impressions 09/18/2017 9:40 AM EDT 0% stenosis in the internal carotid art eries bilaterally by Consensus criteria. Antegrade flow within both vertebral ar teries. Narrative 09/18/2017 9:40 AM EDT US DUPLEX CAROTID BILATERAL, 09/18/2017 9:33 AM INDICATION:cva \ I63.9 Acute CVA (cerebr ovascular accident) (HCC) COMPARISON: None. TECHNIQUE: Duplex Doppler ultrasound mar[place] luation of the carotid systems including both vertebral arteries was performed. FINDINGS: The following velocities were obtained i n the right carotid system: ICA peak systolic velocity = 58 cm/sec CCA peak systolic velocity = 98 cm/sec ICA/CCA ratio is 0.6 The following velocities were obtained i n the left carotid system: ICA peak systolic velocity = 59 cm/sec CCA peak systolic velocity = ??79 cm/sec ICA/CCA ratio is 0.8 Flow within the vertebral arteries is an tegrade. Procedure Note Aubrey Guerra Jr., MD - 09/19/19 18 US DUPLEX CAROTID BILATERAL, 09/18/2017 9: 33 AM INDICATION:cva \ I63.9 Acute CVA (cerebr ovascular accident) (HCC) COMPARISON: None. TECHNIQUE: Duplex Doppler ultrasound marina luation of the carotid systems including both vertebral arteries was performed. FINDINGS: The following velocities were obtained i n the right carotid system: ICA peak systolic velocity = 58 cm/sec CCA peak systolic velocity = 98 cm/sec ICA/CCA ratio is 0.6 The following velocities were obtained i n the left carotid system: ICA peak systolic velocity = 59 cm/sec CCA peak systolic velocity = 79 cm/sec ICA/CCA ratio is 0.8 Flow within the vertebral arteries is an tegrade. CONCLUSION: 0% stenosis in the internal carotid art eries bilaterally by Consensus criteria. Antegrade flow within both vertebral ar teries. Valerie Bocanegra MD IMG US ORDERABLES POCT Glucose (09/18/2017 6:53 AM EDT) athologist Signature POC GLUCOSE 99 70 - 150 [place] mg/dL Specimen Anatomical Collection Method Collection Time Receive d Time (Source) Location / / Volume Laterality 09/18/2017 6:53 AM 8 6:53 EDT AM EDT Valerie Bocanegra MD POCT ORDERABLES - DEV ICE Performing Organization Address City/State/ZIP Code Phon e Number [place] POCT Glucose (09/17/2017 9:17 PM EDT) athologist Signature POC GLUCOSE 146 70 - 150 [place] mg/dL Specimen Anatomical Collection Method Collection Time Receive d Time (Source) Location / / Volume Laterality 09/17/2017 9:17 PM 8 9:20 EDT PM EDT Valerie Bocanegra MD POCT ORDERABLES - DEV ICE Performing Organization Address City/State/ZIP Code Phon e Number [place] POCT Glucose (09/17/2017 4:35 PM EDT) athologist Signature POC GLUCOSE 115 70 - 150 [place] mg/dL Specimen Anatomical Collection Method Collection Time Receive d Time (Source) Location / / Volume Laterality 09/17/2017 4:35 PM 8 4:43 EDT PM EDT Valerie Bocanegra MD POCT ORDERABLES - DEV ICE Performing Organization Address [facility] Phon e Number [place] POCT Glucose (09/17/2017 12:01 PM EDT) P athologist Signature POC GLUCOSE 95 70 - 150 [place] mg/dL Specimen Anatomical Collection Method Collection Time Receive d Time (Source) Location / / Volume Laterality 09/17/2017 12:01 09/17/2017 1:38 PM EDT PM EDT Valerie Bocanegra MD POCT ORDERABLES - DEV ICE Performing Organization Address [facility] Phon e Number [place] POCT Glucose (09/17/2017 7:52 AM EDT) P athologist Signature POC GLUCOSE 112 70 - 150 [place] mg/dL Specimen Anatomical Collection Method Collection Time Receive d Time (Source) Location / / Volume Laterality 09/17/2017 7:52 AM 8 7:55 EDT AM EDT Valerie Bocanegra MD POCT ORDERABLES - DEV ICE Performing Organization Address [facility] Phon e Number [place] POCT Glucose (09/16/2017 8:53 PM EDT) P athologist Signature POC GLUCOSE 143 70 - 150 [place] mg/dL Specimen Anatomical Collection Method Collection Time Receive d Time (Source) Location / / Volume Laterality 09/16/2017 8:53 PM 8 8:56 EDT PM EDT Valerie Bocanegra MD POCT ORDERABLES - DEV ICE Performing Organization Address [facility] Phon e Number [place] POCT Glucose (09/16/2017 4:49 PM EDT) P athologist Signature POC GLUCOSE 133 70 - 150 [place] mg/dL Specimen Anatomical Collection Method Collection Time Receive d Time (Source) Location / / Volume Laterality 09/16/2017 4:49 PM 8 4:55 EDT PM EDT Valerie Bocanegra MD POCT ORDERABLES - DEV ICE Performing Organization Address City/State/ZIP Code Phon e Number [place] POCT Glucose (09/16/2017 1:04 PM EDT) P athologist Signature POC GLUCOSE 116 70 - 150 [place] mg/dL Specimen Anatomical Collection Method Collection Time Receive d Time (Source) Location / / Volume Laterality 09/16/2017 1:04 PM 8 1:05 EDT PM EDT Valerie Bocanegra MD POCT ORDERABLES - DEV ICE Performing Organization Address City/State/ZIP Code Phon e Number [place] EKG - Performed by Nursing (09/16/2017 10:52 AM EDT) Specimen Anatomical Collection Method Collection Time Receive d Time (Source) Location / / Volume Laterality 09/16/2017 10:52 09/18/2017 8:56 AM EDT PM EDT Narrative MUSE - 09/18/2017 8:56 PM EDT Ventricular Rate ? 63 ?BPM ? Atrial Rate ?63 ?BPM ? P-R Interval ? 184 ? ms ? QRS Duration ? 106 ? ms ? Q-T Interval ? 438 ? ms ? QTC ?448 ? ms ? P [place] ? 4 ? degrees ? R [place] ? -44 ? degrees ? T [place] ? 19 ?degrees ? Sinus rhythm Left axis deviation When compared with ECG of 31-AUG-2017 10 :14, No significant change was found Confirmed by DR. DREAD EASON ([id number]) on 09/18/2017 8:56:35 PM Procedure Note Dread Eason MD - 09/18/2017For matting of this note might be different from the original. Ventricular Rate 63 BPM Atrial Rate 63 BPM P-R Interval 184 ms QRS Duration 106 ms Q-T Interval 438 ms QTC 448 ms P [place] 4 degrees R [place] -44 degrees T [place] 19 degrees Sinus rhythm Left axis deviation When compared with ECG of 31-AUG-2017 10 :14, No significant change was found Confirmed by DR. DREAD EASON ([id number]) on 09/18/2017 8:56:35 PM Tova Mays MD ECG SPECIAL Performing Organization Address City/State/ZIP Code Phon e Number MUSE (ABNORMAL) Hemoglobin A1C (09/16/2017 10:50 AM EDT) athologist Signature HEMOGLOBIN A1C 6.2 (H) <5.7 % 09/16/2017 [facility] 11:13 AM EDT [facility] eAG 131 MG/DL 09/16/2017 [facility] 11:13 AM EDT [facility] eAG Comment 09/16/2017 [facility] 11:13 AM EDT [facility] Comment: The [employer] has supported the use [...] / Volume Laterality Blood specimen Venipuncture / 09/16/2017 10:50 018 (specimen) Unknown AM EDT 10:52 AM EDT Tova Mays MD LAB BLOOD ORDERABLES Performing Organization Address City/State/ZIP Code Phon e Number [facility]# [id number] [place] [address] [facility] [address] [id number] [place] [address] [facility] [address] (ABNORMAL) Lipid Profile (09/16/2017 10:50 AM EDT) [facility] Method Time Signature Total Cholesterol 121 <=200 09/16/2017 [facility] MG/DL 11:16 AM EDT [facility] Triglycerides 282 (H) 14 - 150 09/16/2017 [facility] MG/DL 11:16 AM EDT [facility] HDL Cholesterol 32 (L) 40 - 60 09/16/2017 [facility] LDL Cholesterol 33 0 - 99 09/16/2017 [facility] Calculated MG/DL [facility] Total Chol / HDL 3.8 09/16/2017 [facility] O Cholesterol 11:16 AM EDT [facility] Non-HDL 89 MG/DL 09/16/2017 [facility] Cholesterol 11:16 AM EDT [facility] Specimen Anatomical Collection Method / Collection Time Recei ericka Time (Source) Location / Volume Laterality Blood specimen Venipuncture / 09/16/2017 10:50 018 (specimen) Unknown AM EDT 10:52 AM EDT Tova Mays MD LAB BLOOD ORDERABLES Performing Organization Address City/State/ZIP Code Phon e Number [facility] CLIA# [id number] [place] [address] [facility] [address] [facility] CLIA#[id number] [place] [address] [facility] [address] (ABNORMAL) CBC and Differential (09/16/2017 10:50 AM EDT) Analysis Performed At Patho logist Time Signature WBC 6.6 4.6 - 10.2 09/16/2017 [facility] x 10*3/uL 10:56 [facility] RBC 4.12 (L) 4.69 - 09/16/2017 [facility] 6.13 x 10:56 AM [facility] 10*6/uL [facility] Hemoglobin 12.0 (L) 14.1 - 09/16/2017 [facility] 18.1 G/DL 10:56 AM [facility] Hematocrit 36.4 (L) 43.5 - 09/16/2017 [facility] 53.7 % 10:56 AM [facility] MCV 88.3 80.0 - 09/16/2017 [facility] 97.0 FL 10:56 AM [facility] MCH 29.2 27.0 - 09/16/2017 [facility] 31.2 PG 10:56 AM [facility] MCHC 33.1 31.8 - 09/16/2017 [facility] 35.4 G/DL 10:56 AM [facility] RDW 13.6 11.6 - 09/16/2017 [facility] 14.8 % 10:56 AM [facility] Platelets 258 142 - 424 09/16/2017 [facility] X 10*3/uL 10:56 AM [facility] MPV 7.0 (L) 7.8 - 11.0 09/16/2017 [facility] FL 10:56 AM [facility] Neutrophil % 58 37 - 80 % 09/16/2017 [facility] 10:56 AM [facility] Lymphocyte % 28 10 - 50 % 09/16/2017 [facility] 10:56 AM [facility] Monocyte % 8 0 - 12 % 09/16/2017 [facility] 10:56 AM [facility] Eosinophil % 5 0 - 7 % 09/16/2017 [facility] 10:56 AM [facility] Basophil % 1 0 - 2 % 09/16/2017 [facility] 10:56 AM [facility] Neutrophil 3.8 2.0 - 6.9 09/16/2017 [facility] Absolute x 10*3/uL 10:[facility] Lymphocyte 1.8 0.6 - 3.4 09/16/2017 [facility] Absolute x 10*3/uL 10:56 [facility] Monocyte 0.5 0.0 - 0.9 09/16/2017 [facility] Absolute x 10*3/uL 10:56 AM [facility] Eosinophil 0.3 0.0 - 0.7 09/16/2017 [facility] Absolute x 10*3/uL 10:56 AM [facility] Basophil 0.1 0.0 - 0.2 09/16/2017 [facility] Absolute x 10*3/uL 10:56 AM [facility] Specimen Anatomical Collection Method / Collection Time Recei ericka Time (Source) Location / Volume Laterality Blood specimen Venipuncture / 09/16/2017 10:50 018 (specimen) Unknown AM EDT 10:52 AM EDT Tova Mays MD LAB BLOOD ORDERABLES Performing Organization Address City/State/ZIP Code Phon e Number [facility] [id number] [place] [address] [facility] [address] [facility][id number] [place] [address] [facility] [address] (ABNORMAL) Basic Metabolic Panel (09/16/2017 10:50 AM EDT) athologist Signature Sodium 142 136 - 144 09/16/2017 [facility] MMOL/L 11:16 AM [facility] Potassium 4.2 3.5 - 5.1 09/16/2017 [facility] MMOL/L 11:16 AM [facility] Chloride 108 101 - 111 09/16/2017 [facility] MMOL/L 11:16 AM [facility] CO2 27 22 - 32 09/16/2017 [facility] MMOL/L 11:16 AM [facility] BUN 19.0 8.0 - 26.0 09/16/2017 [facility] MG/DL 11:16 AM [facility] Glucose 141 (H) 79 - 115 09/16/2017 [facility] MG/DL 11:16 AM [facility] Creatinine 0.93 0.90 - 09/16/2017 [facility] 1.30 MG/DL 11:16 AM [facility] Calcium 8.5 (L) 8.9 - 10.3 09/16/2017 [facility] MG/DL 11:16 AM [facility] Anion Gap 7 6 - 16 09/16/2017 [facility] MMOL/L 11:16 AM [facility] Est. GFR >60 09/16/2017 [facility] Non- 11:16 AM [facility] Comment: GFR is calculated by IDMS traceable MDRD method, and the result is about 5% lower than previously reported results (prior to Mar 28, 2011). Est. GFR >60 09/16/2017 11:16 AM EDT [facility] Comment: GFR is calculated by IDMS traceable MDRD method, and the result is about 5% lower than previously reported results (prior to Mar 28, 2011). Specimen Anatomical Collection Method / Collection Time Recei ericka Time (Source) Location / Volume Laterality Blood specimen Venipuncture / 09/16/2017 10:50 018 (specimen) Unknown AM EDT 10:52 AM EDT Tova Mays MD LAB BLOOD ORDERABLES Performing Organization Address City/State/ZIP Code Phon e Number [facility] CLIA# [id number] [place] [address] [facility] [address] [facility] CLIA#[id number] [place] [address] [facility] [address] PT/PTT (09/16/2017 10:50 AM EDT) P athologist Signature Prothrombin Time 10.7 9.4 - 12.5 09/16/2017 [facility] 11:03 AM EDT [facility] INR 0.91 <5.00 09/16/2017 [facility] 11:03 AM T [facility] aPTT 32.4 25.1 - 09/16/2017 [facility] 36.5 SEC 11:03 AM EDT [facility] Specimen Anatomical Collection Method / Collection Time Recei ericka Time (Source) Location / Volume Laterality Blood specimen Venipuncture / 09/16/2017 10:50 018 (specimen) Unknown AM EDT 10:52 AM EDT Tova Mays MD LAB BLOOD ORDERABLES Performing Organization Address City/State/ZIP Code Phon e Number [facility] [id number] [place] [address] [facility][id number] [place] [address] [facility] documented in this encounter Visit Diagnoses Diagnosis Acute CVA (cerebrovascular accident) (HC C) - Primary Essential hypertension Unspecified essential hypertension Type 2 diabetes mellitus without complic ation (HCC) Mixed hyperlipidemia documented in this encounter Administered Medications Inactive Administered Medications - up to 3 most recent administrations Medication Order MAR Action Action Date Dose Rate Site acetaminophen (TYLENOL) tablet 650 Given 09/17/2017 9:38 PM EDT 650 mg mg 650 mg Every 6 hours PRN, Oral, Mild pain (1-3), Fever, Starting on 09/16/17 at 2117 Given 09/16/2017 9:54 PM EDT 650 mg ascorbic acid (vitamin C) (VITAMIN C) tablet Given 07/2017 7:45 AM EDT 500 mg 500 mg 500 mg Every morning, Oral, First dose on 09/17/17 at 0800 Given 09/17/2017 9:40 AM EDT 500 mg aspirin tablet *ANTIPLATELET* 325 mg Given 09/18/2017 10:45 AM EDT 325 mg 325 mg Daily, Oral, First dose on 09/16/17 at 1330 Given 09/17/2017 9:40 AM EDT 325 mg Given 09/16/2017 2:38 PM EDT 325 mg atorvastatin (LIPITOR) tablet 20 mg Given 09/17/2017 9:38 PM EDT 20 mg 20 mg Daily, Oral, First dose on 09/16/17 at 2200 Given 09/16/2017 9:53 PM EDT 20 mg cyclobenzaprine (FLEXERIL) tablet 10 mg Given 09/16/2017 11:36 AM EDT 10 mg 10 mg Once, Oral, On 09/16/17 at 1100, For 1 dose enoxaparin (LOVENOX) Given 09/18/2017 10:45 AM EDT 40 mg Right Lower Abdomen injection *ANTICOAGULANT* 40 mg 40 mg Daily, Subcutaneous, Indications: VTE Prophylaxis, First dose on 09/17/17 at 1000 flecainide (TAMBOCOR) tablet 100 mg Given 09/18/2017 12:45 PM EDT 100 mg 100 mg Every 12 hours, Oral, First dose on 09/16/17 at 1330 Given 09/18/2017 1:10 AM EDT 100 mg Given 09/17/2017 2:27 PM EDT 100 mg fluticasone (FLONASE) 50 mcg/actuation Given 09/18/2017 10:45 AM EDT 2 sprays nasal spray 2 spray 2 spray Daily, Each Nare, First dose on 09/17/17 at 1000 Given 09/17/2017 9:39 AM EDT 2 sprays lidocaine (LIDODERM) 5 % patch 1 Patch Applied 09/17/2017 9:38 PM EDT 1 patch Other patch 1 patch Every 24 hours, Transdermal, First dose on 09/16/17 at 2200 Patch Applied 09/16/2017 9:54 PM EDT 1 patch Othe r metoPROLOL succinate (TOPROL-XL) 24 hr tablet Given 10:45 AM EDT 25 mg 25 mg 25 mg Daily, Oral, First dose on 09/17/17 at 1000 Given 09/17/2017 9:40 AM EDT 25 mg documented in this encounter Active and Recently Administered Medications Times are shown in EDT. Scheduled Medication Order 09/16/2017 09/17/2017 09/18/2017 ascorbic acid (vitamin C) (VITAMIN C) tablet 500 mg 0940 (Given - Provider: Julieth Toro RN) 0745 (Given - Provider: Johanna Mathew RN) 500 mg Every morning, Oral, First dose on 09/17/17 at 0800 aspirin tablet *ANTIPLATELET* 325 mg 1438 (Given - Provider: Julieth Toro RN) 0940 (Given - Provider: Julieth Toro RN) 1045 (Given - Provider: Johanna Mathew RN) 325 mg Daily, Oral, First dose on 09/16/17 at 1330 atorvastatin (LIPITOR) tablet 20 mg 2153 (Given - Prov ider: Zaria Bob RN) 2138 (Given - Provider: Zaria Bob RN) 20 mg Daily, Oral, First dose on 09/16/17 at 2200 cyclobenzaprine (FLEXERIL) tablet 10 mg (COMPLETED) 11 36 (Given - Provider: Rebekah Neff RN) 10 mg Once, Oral, Sat 09/16/17 at 1100, For 1 dose enoxaparin (LOVENOX) injection *ANTICOAGULANT* 40 mg 0943 (Not Given - Provider: Julieth Toro RN - Reason: Patient/family refused) 1045 (Given - Provider: Johanna Mathew, BERNARD) 40 mg Daily, Subcutaneous, First dose on 09/17/17 at 1000 flecainide (TAMBOCOR) tablet 100 mg 1438 (Given - Provider: Julieth Toro RN) 0045 (Given - Provider: Zaria Bob RN)1427 (Given - Provider: Julieth Toro RN) 0110 (Given - Provider: Zaria Bob RN)1245 (Given - Provider: Johanna Mathew RN) 100 mg Every 12 hours, Oral, First dose on 09/16/17 at 1330 fluticasone (FLONASE) 50 mcg/actuation nasal spray 2 spray 0939 (Given - Provider: Julieth Toro RN) 1045 (Given - Provider: Johanna Mathew RN) 2 spray Daily, Each Nare, First dose on 09/17/17 at 1000 insulin lispro (HumaLOG) injection 2-12 Units 1701 (Ho ld - Provider: Julieth Toro RN - Reason: Order parameters not met)211 (Not Given - Provider: Zaria Bob RN - Reason: Contraindicated - Comment: blood glucose is 143) 0826 (Hold - Provider: Julieth Toro RN - Reason: Order parameters not met)1348 (Hold - Provider: Julieth Toro RN - Reason: Order parameters not met)1647 (Hold - Provider: Julieth Toro RN - Reason: Order parameters not met) 0745 (Not Given - Provider: Johanna Mathew RN - Reason: Order parameters not met)1320 (Not Given - Provider: Johanna Mathew RN - Reason: Order parameters not met) 2-12 Units 4 times daily with meals and nightly, Subcutaneous, First dose on 09/16/17 at 1700 2127 (Not Given - Provider: Zaria Bob RN - Reason: Order parameters not met - Comment: blood glucose is 146) lidocaine (LIDODERM) 5 % patch 1 patch 2153 (Patch Roberto lied - Provider: Zaria Bob RN - Comment: back) 1030 (Patch Removed - Provider: Julieth quick RN - Comment: removed by pt)2137 (Patch Applied - Provider: Zaria Bob RN - Comment: mid back) 1047 (Patch Removed - Provider: Johanna Mathew RN) 1 patch Every 24 hours, Transdermal, First dose on 09/16/17 at 2200 metoPROLOL succinate (TOPROL-XL) 24 hr tablet 25 mg 0940 (Given - Provider: Julieth Toro RN) 1045 (Given - Provider: Johanna Mathew RN) 25 mg Daily, Oral, First dose on 09/17/17 at 1000 PRN Medication Order 09/16/2017 09/17/2017 09/18/2017 acetaminophen (TYLENOL) tablet 650 mg 2153 (Given - Pr ovider: Zaria Bob RN) 2137 (Given - Provider: Zaria Bob RN) 650 mg Every 6 hours PRN, Oral, Mild pain, Fever, Starting Sat at 2117 dextrose 10 % injection 125 mL 125 mL As needed, Intravenous, Hypoglycemia, Starting 09/16/17 at 1246 white petrolatum-mineral oil (TEARS) ophthalmic ointment Both Eyes, As needed, Dry Eyes, Starting 09/16/17 at 1246 documented in this encounter Care Teams Medical Assistant Prn Relationship Specialty Start Date End Date Chetna Loredo PCP - General Family Medicine 05/19/16 04/13/18 documented as of this encounter
--- OUTSIDE RECORDS SUMMARY | 2021-11-30 11:50 | XMS_ITS | Encounter Summary ---
:1955 Author Organization [facility] [place] [address] Care Team Providers Name Role Phone Chetna Loredo Primary Care Provider Unavailable Encounter Details Date Type Department Care Team Description 05/10/2017 Lab Visit Phlebotomy - Vladislav Left knee pain, unspecified chronicity; [address] History of partial knee repl acement; [place], [place] [address] Effusion of left knee [phone] Social History Tobacco Use Types Packs/Day Years [...] Procedure Name Priority Date/Time Associated Comments Diagnosis SEDIMENTATION RATE Routine 05/10/2017 2:56 PM Left knee pain, Results for this (ESR) EST unspecified procedure are i n chronicity the results History of partial section. knee replacement Effusion of left knee CBC WITH AUTO Routine 05/10/2017 2:56 PM Left knee pain, Resul ts for this DIFFERENTIAL PANEL EST unspecified procedure are in chronicity the results History of partial section. knee replacement Effusion of left knee CBC AND DIFFERENTIAL Routine 05/10/2017 2:56 PM Left knee pain , Results for this EST unspecified procedure are i n chronicity the results History of partial section. knee replacement Effusion of left knee CRP, CARDIAC ONLY - HS Routine 05/10/2017 2:56 PM Left knee pa in, Results for this EST unspecified procedure are i n chronicity the results History of partial section. knee replacement Effusion of left knee documented in this encounter Results (ABNORMAL) CBC and Differential (05/10/2017 2:56 PM EST) Analysis Performed At Patho logist Time Signature WBC 7.3 4.8 - 10.8 05/10/2017 [facility] X 10*3/uL 3:30 PM [facility] RBC 4.46 (L) 4.70 - 05/10/2017 [facility] 6.10 X 3:30 PM EST MEDICAL 10*6/uL CENTER LAB SERVICES Hemoglobin 13.1 (L) 14.0 - 05/10/2017 [facility] 18.0 G/DL 3:30 PM [facility] Hematocrit 38.3 (L) 42.0 - 05/10/2017 [facility] 52.0 % 3:30 PM [facility] MCV 86.0 80.0 - 05/10/2017 [facility] 94.0 FL 3:30 PM [facility] MCH 29.5 27.0 - 05/10/2017 [facility] 31.0 PG 3:30 PM EST [facility] MCHC 34.3 33.0 - 05/10/2017 [facility] 37.0 G/DL 3:30 PM EST [facility] RDW 14.4 11.5 - 05/10/2017 [facility] 14.5 % 3:30 PM EST [facility] Platelets 296 160 - 360 05/10/2017 [facility] X 10*3/uL 3:30 PM EST [facility] MPV 7.6 6.8 - 10.2 05/10/2017 [facility] FL 3:30 PM EST [facility] Neutrophil % 56 % 05/10/2017 [facility] 3:30 PM EST [facility] Lymphocyte % 30 % 05/10/2017 [facility] 3:30 PM EST [facility] Monocyte % 10 % 05/10/2017 [facility] 3:30 PM EST [facility] Eosinophil % 3 % 05/10/2017 [facility] 3:30 PM EST [facility] Basophil % 1 % 05/10/2017 [facility] 3:30 PM EST [facility] Neutrophil 4.1 1.6 - 7.3 05/10/2017 [facility] Absolute x 10*3/uL 3:30 PM [facility] Lymphocyte 2.2 1.0 - 5.1 05/10/2017 [facility] Absolute x 10*3/uL 3:30 PM [facility] Monocyte 0.7 0.2 - 0.9 05/10/2017 [facility] Absolute x 10*3/uL 3:30 PM [facility] Eosinophil 0.2 0.0 - 0.5 05/10/2017 [facility] Absolute x 10*3/uL 3:30 PM [facility] Basophil 0.1 0.0 - 0.2 05/10/2017 [facility] Absolute x 10*3/uL 3:30 PM [facility] SERVICES Specimen Anatomical Collection Method / Collection Time Recei ericka Time (Source) Location / Volume Laterality Blood specimen Venipuncture / 05/10/2017 2:56 05/10/19 18 2:57 (specimen) Unknown PM EST PM EST Nasir Gary PA-C LAB BLOOD ORDERABLES Performing Organization Address City/State/ZIP Code Phon e Number [facility] CLIA# [id number] [place] [address] LAB SERVICES [address] CRP, High Sensitivity (05/10/2017 2:56 PM EST) P athologist Signature C-Reactive 9.7 MG/L 05/10/2017 [place] Protein 6:17 PM EST [facility] PATH LABS Comment: Risk According to AHA/CDC Guidelines: [...] Organization Address City/State/ZIP Code Phon e Number [facility] CLIA# [id number] [place] [address] PATH LABS [facility] SEDIMENTATION RATE (ESR) (05/10/2017 2:56 PM EST) P athologist Signature Sed Rate 10 0 - 20 05/10/2017 [facility] MM/HR 3:56 PM EST MEDICAL CENTER LAB SERVICES Specimen Anatomical Collection Method / Collection Time Recei ericka Time (Source) Location / Volume Laterality Blood specimen Venipuncture / 05/10/2017 2:56 05/10/19 18 2:57 (specimen) Unknown PM EST PM EST Nasir Gary PA-C LAB BLOOD ORDERABLES Performing Organization Address City/State/ZIP Code Phon e Number [facility] CLIA# [id number] [place] [address] LAB SERVICES [address] documented in this encounter Visit Diagnoses Diagnosis Left knee pain, unspecified chronicity History of partial knee replacement Effusion of left knee documented in this encounter Care Teams Heel Turner Relationship Specialty Start Date End Date Chetna Loredo PCP - General Family Medicine 05/19/16 04/13/18 documented as of this encounter
--- OUTSIDE RECORDS SUMMARY | 2021-11-30 11:50 | XMS_ITS | Encounter Summary ---
:1955 Author Organization [facility] [place] [address] Care Team Providers Name Role Phone Chetna Loredo Primary Care Provider Unavailable Reason for Visit Reason Onset Date Comments procedure order 08/30/2017 Encounter Details Date Type Department Care Team Description 08/30/2017 Telephone Pain Services - Ankur Casas RN procedure order [address] [place], [place] [address] [place], [place] [phone] [id number] Social History Tobacco Use Types Packs/Day Years [...] Telephone Encounter - Ankur Connelly RN - 08/30/2017 4:13 PM EDT Ordered Demetris Funez Jr., M.D. Pt called requesting to schedule Right L3-S1 RFA. Can you place an order? Thank you Electronically signed by: Ankur Connelly RN 08/30/17 1616 Electronically signed by: Demetris Funez MD Resident 08/30/17 1629 documented in this encounter Plan of Treatment Not on filedocumented as of this encounter Visit Diagnoses Diagnosis Spondylosis without myelopathy or radicu lopathy, lumbar region - Primary documented in this encounter Care Teams Religious Educator Relationship Specialty Start Date End Date Chetna Loredo PCP - General Family Medicine 05/19/16 04/13/18 documented as of this encounter
--- OUTSIDE RECORDS SUMMARY | 2021-11-30 11:50 | XMS_ITS | Encounter Summary ---
:1955 Author Organization [facility] [place] [address] Care Team Providers Name Role Phone Chetna Loredo Primary Care Provider Unavailable Encounter Details Date Type Department Care Team Description 03/07/2017 Telephone Spine Center - [place] ons Chetan Whitaker, CRUISE CONSULTANT [address] [place] [address] [place] [phone] (Wo rk) Social History Tobacco Use Types [...] this encounter Miscellaneous Notes Telephone Encounter - Chetan Whitaker NP - 03/30/2017 9:38 AM EST error Electronically signed by: Chetan Whitaker NP 03/30/17 0938 documented in this encounter Plan of Treatment Not on filedocumented as of this encounter Visit Diagnoses Not on filedocumented in this encounter Care Teams Hotel Casino Floorperson Relationship Specialty Start Date End Date Chetna Loredo PCP - General Family Medicine 05/19/16 04/13/18 documented as of this encounter
--- OUTSIDE RECORDS SUMMARY | 2021-11-30 11:50 | XMS_ITS | Encounter Summary ---
:1955 Author Organization [facility] [place] [address] Care Team Providers Name Role Phone Chetna Loredo Primary Care Provider Unavailable Reason for Visit Reason Comments Left Knee Problem left knee swelling. Encounter Details Date Type Department Care Team Description 05/24/2017 Office Visit Orthopaedics- Sports Romelia Manuel MD Primary osteoarthritis Medicine - [address] of left knee (Primary [address] [facility] [place] [address] [id number] Social History Tobacco Use Types Packs/Day Years [...] Sign Reading Time Taken Comments Blood Pressure 94/66 05/24/2017 1:24 PM EST Pulse 88 05/24/2017 1:24 PM EST Temperature - - Respiratory Rate - - Oxygen Saturation - - Inhaled Oxygen Concentration - - Weight 111.1 kg (245 lb) 05/24/2017 1:24 PM EST Height 177.8 cm (5' 10) 05/24/2017 1:24 PM EST Body Mass Index 35.15 05/24/2017 1:24 PM EST documented in this encounter Functional [...] encounter Progress Notes Miguelito Manuel MD - 05/24/2017 1:30 PM EST Reason for Visit: S/P left unicompartmental knee replacement H/o DVT? No Previous imaging- Xray- 03/23/17 1. Medial unicompartmental arthroplasty without evidence of hardware complication. Alignment is similar to prior. 2. No acute fractures or malalignment. 3. Small joint effusion with debris. 4. Mild degenerative changes of the lateral and patellofemoral compartments MRI- Employment status: Retired Occupation: [employer] 61 y.o. HPI: Left knee pain and swelling for about a month. Had it drained and steroid injection by Nasir. Swelling not bad today. Started after vigorous PT. Was placed on keflex by Nasir. Past Medical History: Diagnosis Date ??? Diabetes [...] mouth daily. - Oral Class: Historical Med ONETOUCH DELICA LANCETS 30 gauge Misc Class: Historical Med ONETOUCH ULTRA TEST Strp Class: Historical Med vortioxetine (TRINTELLIX) 5 mg tablet Sig - Route: Take 10 mg by mouth daily. - Oral Class: Historical Med aspirin 325 MG EC tablet *ANTIPLATELET* Sig - Route: Take 1 tablet (325 mg total) by mouth 2 times daily for 30 days. - Oral Class: Print Vitals: 05/24/17 1324 BP: 94/66 Pulse: 88 Height: 1.778 m (5' 10) Weight: 111.1 kg (245 lb) BMI (Calculated): 35.2 Physical Exam: NAD Examination of left knee: Incisions are healed. No redness, warmth, or signs of infection. Tenderness to palpation- none specific ROM 0-135 degrees. No effusion Emili 4 mm, firm endpoint. Normal ligamentous exam otherwise. Quad atrophy is present, quad strength is normal. The patient can perform a straight leg raise. good quad control. Gait is full Neurovascularly intact distally No calf swelling or palpable cord. Negative calf squeeze test. Compartments are soft, no pain with passive stretch. NVI. Pulses 2+. No lymphedema. Assessment: Symptomatic PF arthritis s/p YOUSIF s/p vigorous PT, no signs or symptoms of infection; somewhat better after aspiration and injection by Nasir Plan: Plan- Reviewed surgery and arthroscopy pictures today. Elevate, rest, ice, compression as needed. Scheduled NSAIDs, stop keflex, gentle rehab Reviewed worrisome signs of DVT, including calf swelling, warmth, palpable cord, etc. Patient has noevidence for blood clot today, and will seek medical attention immediately if any concerning symptoms develop. Electronically signed by: Miguelito Manuel MD 05/25/17 1042 documented in this encounter Plan of Treatment Not on filedocumented as of this encounter Visit Diagnoses Diagnosis Primary osteoarthritis of left knee - Pr adamaris documented in this encounter Care Teams Customer Advisor Relationship Specialty Start Date End Date Chetna Loredo PCP - General Family Medicine 05/19/16 04/13/18 documented as of this encounter
--- OUTSIDE RECORDS SUMMARY | 2021-11-30 11:50 | XMS_ITS | Encounter Summary ---
:1955 Author Organization [facility] [place] [address] Care Team Providers Name Role Phone Chetna Loredo Primary Care Provider Unavailable Reason for Visit Reason Onset Date Comments MRI results-Max 02/27/2017 Encounter Details Date Type Department Care Team Description 02/27/2017 Telephone Spine Center - [place] Chetan Qureshi, MRI results-Max [address] [place] [address] [place], [place] [address] (Wo rk) Social History Tobacco Use Types [...] this encounter Miscellaneous Notes Telephone Encounter - Sharmila Tubbs RN - 03/13/2017 8:48 AM EST Called and made appointment per patient request for 04-05-17. States understanding and acceptance. Electronically signed by: Sharmila Tubbs RN 03/13/17 0854 Telephone Encounter - Sharmila Tubbs RN - 03/08/2017 2:32 PM EST Called and spoke to patient in reference to messages below. Patient is wanting to schedule an appointment with but is driving right now and cannot take down phone number or check calendar. Patient is requesting a call back on Monday to schedule appointment. Electronically signed by: Sharmila Tubbs RN 03/08/17 1437 Telephone Encounter - Liss Lamb RN - 03/07/2017 5:08 PM EST Please schedule patient to see Dr Brito in clinic for evaluation of lumbar facet blocks. Electronically signed by: Liss Lamb RN 03/07/17 1712 Addendum Note - Chetan Whitaker NP - 03/07/2017 4:29 PM EST Addended by: CHETAN WHITAKER on: 03/07/2017 04:29 PM Modules accepted: Orders Telephone Encounter - Chetan Whitaker NP - 03/07/2017 4:22 PM EST Talked to the patient and discussed his MRI results. He mostly experiences pain in his back and occasionally pain radiating down his right leg. I recommended evaluation by interventionists for lumbar facet blocks and ablations and he is interested in hose since one of his friends had those and they helped a lot. I also recommended continued exercises I will also refill his Ibuprofen 800 mg to take once a day with food, he took it before and it helped him. He will call if he continues having right leg pain and if injections do not help him anymore. At this point he may need evaluation for surgery. Could you set him up with interventionalist for evaluation? Thank you Electronically signed by: Chetan Whitaker NP 03/07/17 1629 Telephone Encounter - Chanel Lee RN - 02/28/2017 10:23 AM EST Patient is calling back about note below. Electronically signed by: Chanel Lee RN 02/28/17 1024 Telephone Encounter - Emily Cronin - 02/27/2017 4:00 PM EST Current patient of Polly Whitaker NP. Patient had his MRI done on 02/22/17. He is calling for MRI results. Please call patient back on cell [phone]. Okay to leave msg. 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
--- OUTSIDE RECORDS SUMMARY | 2021-11-30 11:50 | XMS_ITS | Encounter Summary ---
:1955 Author Organization [facility] [place] [address] Care Team Providers Name Role Phone Chetna Loredo Primary Care Provider Unavailable Reason for Visit Auth/Cert Specialty Diagnoses / Procedures Referred By Contact Refer red To Contact Diagnoses Lumbar facet arthropathy Lumbar facet arthropathy (HCC) [M46.96] Procedures NJ INJ DX/THER AGNT PARAVERT FACET JOINT,IMG GUIDE,LUMBAR/SAC, 1ST LEVEL NJ INJ DX/THER AGNT PARAVERT FACET JOINT,IMG GUIDE,LUMBAR/SAC, 2ND LEVEL NJ INJ DX/THER AGNT PARAVERT FACET JOINT,IMG GUIDE,LUMBAR/SAC, ADD LEVEL LUMBAR/THORACIC MEDIAL BRANC H BLOCKRight L2-L5 per orders 08/09/17 - lf Referral ID Status Reason Start Date Expiration Date Visits Requ ested Visits Authorized [id number] 1 1 Encounter Details Date Type Department Care Team Description 08/15/2017 Surgery Surgical Services - Neptali Toledo LUMB AR/THORACIC MEDIAL Crescencio Fernandez MD BRANCH BLOCK - Right [facility] [place] [address] [place], [place] [phone] (Wo rk) Surgery Details Date/Time Status Location OR Service Patient Case Class Case Tr auma Class Type Case? 08/15/17 3:15 Posted [id number] [facility] Pain Outpatient Scheduled PM [facility] Pain Services (OP/Surg PAIN Admit-Sched CLINIC ) (>) 5 days Panel 1 Procedure LRB Anes Op Region Wound Class Commen ts LUMBAR/THORACIC MEDIAL BRANCH BLOCK - Right Local Spine Lum bar Clean Right L2-L5 Surgeon Surgeon Role Service Panel Neptali Toledo MD Primary Pain Services 1 documented in this encounter Social History [...] Sign Reading Time Taken Comments Blood Pressure 130/68 08/15/2017 3:25 PM EDT Pulse 75 08/15/2017 3:25 PM EDT Temperature 36.6 ??C (97.8 ??F) 08/15/2017 3:25 PM EDT Respiratory Rate - - Oxygen Saturation 96% 08/15/2017 3:25 PM EDT Inhaled Oxygen Concentration - - [...] Hanson RN - 08/15/2017 3:18 PM EDT [facility] Discharge Instructions (Post-Procedure) , opt 2 The [...] ONETOUCH DELICA LANCETS 30 0 7 09/16/2017 [facility] ONETOUCH ULTRA TEST Strp 0 03/27/2017 09/16/2017 [...] Address City/State/ZIP Code Phon e Number [place] (ABNORMAL) POCT Glucose (08/15/2017 3:30 PM EDT) [...] of unspecified site without mention of myelopathy Lumbar facet arthropathy Spondylosis of unspecified site without mention of myelopathy documented in this encounter Admitting Diagnoses Diagnosis Lumbar facet arthropathy Spondylosis of unspecified site without mention of myelopathy documented in this encounter Administered Medications Inactive Administered Medications - up to 3 most recent administrations Medication Order MAR Action Action Date Dose Rate Site bupivacaine (PF) (MARCAINE) 0.25 % Given 08/15/2017 4:09 PM EDT 4 mLs Other (2.5 mg/mL) injection Intra-op PRN, Starting on Mon08/15/17 at 1609, Anesthesia Intra-op lidocaine (XYLOCAINE) 10 mg/mL injection Given 08/15/2017 4:07 PM EDT 5 mLs Other Intra-op PRN, Starting on 5/1/18 at 1607, Anesthesia Intra-op documented in this encounter Active [...] Intra-op documented in this encounter Care Teams Booth Usher Relationship Specialty Start Date End Date Chetna Loredo PCP - General Family Medicine 05/19/16 04/13/18 documented as of this encounter
--- OUTSIDE RECORDS SUMMARY | 2021-11-30 11:51 | XMS_ITS | Encounter Summary ---
:1955 Author Organization [facility] [place] [address] Care Team Providers Name Role Phone Chetna Loredo Primary Care Provider Unavailable Reason for Referral Physical Therapy (Routine) - Closed Specialty Diagnoses / Procedures Referred By Contact Refer red To Contact Physical Therapy Diagnoses DDD (degenerative disc disease), lumbar Spondylosis of lumbar region without myelopathy or radiculopathy Chetan Whitaker [facility] JOSE ANTONIO Vinson [address] [place] [address] [place] [address] Referral ID Status Reason Start Date Expiration Visits Visits Date Requested Authorized [id number] Closed Evaluation and 12/30/2016 12/30/2017 1 1 Treat Reason for Visit Physical Therapy (Routine) - Closed Specialty Diagnoses / Procedures Referred By Contact Refer red To Contact Physical Therapy Diagnoses DDD (degenerative disc disease), lumbar Spondylosis of lumbar region without myelopathy or radiculopathy Chetan Whitaker [facility] JOSE ANTONIO Vinson [address] [place] [address] [place] [address] Referral ID Status Reason Start Date Expiration Visits Visits Date Requested Authorized [id number] Closed Evaluation and 12/30/2016 12/30/2017 1 1 Treat Encounter Details Date Type Department Care Team Description 01/16/2017 Hospital Encounter Adult & Pediatric Ariel Rodríguez Physical Therapy - [address] [place] [address] [place] [address] Social History Tobacco Use Types Packs/Day Years [...] 1 capsule by 0 03/01/2021 mouth daily. oxyCODONE (ROXICODONE) 5 MG Take 1-2 tablets 75 tablet 0 02/22/2017 immediate release tablet every 4-6 hrs prn pain vortioxetine (TRINTELLIX) 5 Take 10 mg by 0 08/31/2017 mg tablet mouth daily. vortioxetine (TRINTELLIX) 5 Take 5 mg by mouth 0 02/22/2017 mg tablet daily. documented as of this encounter Plan of Treatment Scheduled Referrals Name Type Priority Associated Diagnoses [facility] Routine DDD (degenerative As Needed for 1 Referral To Adult Referral disc disease), lumbar Occurrences Physical Therapy Spondylosis of lumbar st arting 01/16/2017 region without until 017 myelopathy or radiculopathy documented as of this encounter Visit Diagnoses Diagnosis DDD (degenerative disc disease), lumbar Degeneration of lumbar or lumbosacral in tervertebral disc Spondylosis of lumbar region without mye lopathy or radiculopathy documented in this encounter Care Teams Plane Tableman Relationship Specialty Start Date End Date Chetna Loredo PCP - General Family Medicine 05/19/16 04/13/18 documented as of this encounter
--- OUTSIDE RECORDS SUMMARY | 2021-11-30 11:51 | XMS_ITS | Encounter Summary ---
:1955 Author Organization [facility] [place] [address] Care Team Providers Name Role Phone Chetna Loredo Primary Care Provider Unavailable Encounter Details Date Type Department Care Team Description 11/23/2016 Hospital Encounter Adult & Pediatric Chi Jackson Physical Therapy - MEGAN Beatty [facility] [place] [id number] [phone] Social History Tobacco Use Types Packs/Day Years [...] as of this encounter Miscellaneous Notes Therapy Visit - Daily Note - Chi Jackson, INTERNAL CORROSION SPECIALIST - 11/23/2016 5:56 PM EDT Physical Therapy Daily Note Payor: [facility] MANAGED CARE / Plan: [facility] BL[employer] OPT[employer] PPO / Product Type: PPO / PT Visit Count: 8 Referring Diagnosis: Left partial knee replacement Rehabilitation Precautions/Restrictions: Precautions/Restrictions Precautions: Tachycardia, diabetes, R knee problems, DDD in lumbar spine SUBJECTIVE Patient Report: Pt states he is a little more sore today in the front of the knee and has started tohave increased L hip pain. He states his L hip is starting to get the same way as his other hip before surgery. Pain: Pain Assessment Reports: Numerical Pain Score Pain Score 1: 3 Pain Location: L knee, patellar tendon Pain Interventions: Therapy to tolerance, See interventions Other Pain Comments: L hip is sore today OBJECTIVE General Observation/Objective Findings: Pt arrived to PT in NAD, ambulating with no SPC and slight limp on L side; wearing compression hose on L LE. Noticeable facial grimace with SLR due to L hip pain. Interventions: Interventions performed as follows: Interventions performed on this visit:: Yes Therapeutic Exercises: See Flow sheet. Therapeutic ex to increase LE ROM, strength, flexibility, andfunctional mobility. Other: CP to left knee x 10 min post ex in long sitting to decrease pain, inflammation, and swelling. Modalities Skin Integrity Assessment: Modalities Performed per interventions above. No, education was not provided today as patient was previously educated on risk and benefits. Skin integrity prior to treatment: Intact. Skin integrity after treatment: Intact and Cold. Education: as described in interventions and Body Mechanics Education provided: Verbal and Demonstration Level of understanding: Needs review ASSESSMENT Therapy Diagnosis: 1. Primary osteoarthritis of both knees 2. Arthritis of knee 3. Status post left partial knee replacement 4. Decreased range of motion of left knee 5. Weakness of both lower extremities 6. Gait abnormality Response to Visit/Summary: 61 yo male returns to PT for follow up visit for s/p left partial knee replacement. Pt responded fair to therapeutic ex, but was experiencing more L hip pain which limited tolerance to activity. Due to increased pain in the L knee and hip, intensity of exercises and wt bearing ex were decreased today. Pt still responds well to warmup on Nustep recumbent stepper with improved mobility and decreased pain. Pt was encouraged to cont HEP and to ice at home as needed for pain and inflammation. Pt would benefit from cont skilled PT to decrease pain, increase ROM, strength, flexibility, functional mobility/gait and to return pt to PLOF. Skilled Intervention needed: Verbal cues and Protocol Progression Pain Reassessment: Pain Rating 0/10 Progress Towards Goals: Pt is improving sit to stand transfers, however is experiencing more pain today. Time frame to achieve goal:: 12 weeks Goal 1: Pt will be independent with HEP for continued gains at PT discharge. Goal 2: Pt will report pain of less than or equal to 2/10 with activity in L knee. Goal 3: Pt will demonstrate L knee AROM within functional limits to allow for improved ability to perofrm transfers. Goal 4: Pt will demonstrate L LE strength of 4/5 or greater to allow for improved ability to ascend/descend stairs. Goal 5: Pt will improve Lysholm score to 80/100. PLAN Progression needed: Progress with therapeutic ex as tolerated. Treatment Frequency, Duration, and Interventions: Plan Treatment Frequency and duration : 1-2 times per week for 12 weeks (PT POC ending 01/18/17) Recommend PT procedures: Gait Training, Electrical Stimulation, Hot/Cold pack, Manual Therapy, Neuromuscular Re-education, Therapeutic Activity, Therapeutic Exercise Recommended Consults: None currently Development of Plan of Care: No change in POC today Total Treatment Time (Timed & Untimed): 35 min Total Time in Timed Codes: 30 min The patient has been instructed to contact our clinic if any questions or problems should arise. Electronically signed by: Chi Jackson PTA 11/23/2016 6:08 PM Electronically signed by: Chi Jackson PTA 11/23/16 1809 documented in this encounter Plan of Treatment Not on filedocumented as of this encounter Visit Diagnoses Diagnosis Primary osteoarthritis of both knees - P rimary Arthritis of knee Unspecified arthropathy, lower leg Status post left partial knee replacemen t Decreased range of motion of left knee Weakness of both lower extremities Gait abnormality Abnormality of gait documented in this encounter Care Teams Co Teacher Relationship Specialty Start Date End Date Chetna Loredo PCP - General Family Medicine 05/19/16 04/13/18 documented as of this encounter
--- OUTSIDE RECORDS SUMMARY | 2021-11-30 11:51 | XMS_ITS | Encounter Summary ---
:1955 Author Organization [facility] [place] [address] Care Team Providers Name Role Phone Chetna Loredo Primary Care Provider Unavailable Encounter Details Date Type Department Care Team Description 12/14/2016 Hospital Encounter Adult & Pediatric Chi Jackson Physical Therapy - MEGAN Beatty [facility] [place] [id number] [phone] Social History Tobacco Use Types Packs/Day Years [...] Visit - Daily Note - Chi Jackson, MENTAL HEALTH DIRECTOR - 12/14/2016 11:18 AM EDT Physical Therapy Daily Note Payor: [facility] MANAGED CARE / Plan: [facility] [employer] OPT[employer] PPO / Product Type: PPO / PT Visit Count: 14 Referring Diagnosis: Left partial knee replacement Rehabilitation Precautions/Restrictions: Precautions/Restrictions Precautions: Tachycardia, diabetes, R knee problems, DDD in lumbar spine Restrictions: None SUBJECTIVE Patient Report: Pt states he was really sore that night after last session and has been ever since. He thinks he may have tried to push too much weight on the leg machines last time. Pt states he doesn't want to push a lot of weight today. Pain: Pain Assessment Reports: Numerical Pain Score Pain Score 1: 4 Pain Location: L knee Pain Interventions: Therapy to tolerance, See interventions OBJECTIVE General Observation/Objective Findings: Pt arrived to PT in NAD, ambulating with no AD and slight limp on L side; no compression hose on L LE today. Interventions: Interventions performed as follows: Interventions performed on this visit:: Yes Therapeutic Exercises: See Flow sheet. Therapeutic ex to increase LE ROM, strength, flexibility, andfunctional mobility. Other: CP to left knee x 10 min post ex in long sitting to decrease pain, inflammation, and swelling. Modalities Skin Integrity Assessment: Non Applicable Education: as described in interventions and Body Mechanics Education provided: Verbal and Demonstration Level of understanding: Needs review ASSESSMENT Therapy Diagnosis: 1. Arthritis of knee 2. Status post left partial knee replacement 3. Decreased range of motion of left knee 4. Gait abnormality 5. Weakness of both lower extremities 6. Primary osteoarthritis of both knees Response to Visit/Summary: 61 yo male returns to PT for follow up visit for s/p left partial knee replacement. Therapy focused mostly on ROM and functional activities today. Pt was started on Zimory bike slowly until pt was able to increase ROM; able to ride at a good pace toward the end. Pt was able to start proprioceptive activities today with a SLS of 30 sec on L LE with no LOB. Pt was able to complete standing ex with minimal pain and required few VC's for technique on forward and lateral step ups. Pt had no increased pain post tx and stated it felt pretty good when he left. Pt cont to be motivated and would benefit from cont skilled PT to decrease pain, increase ROM, strength, flexibility, functional mobility/gait and to return pt to PLOF. Skilled Intervention needed: Verbal cues and Protocol Progression Pain Reassessment: Pain Rating: better; no pain number given. Progress Towards Goals: Pt is improving LE strength and is able to balance on single leg today. Time frame to achieve goal:: 12 [...] PLAN Progression needed: Progress with therapeutic ex and functional ex as tolerated. Treatment Frequency, Duration, and Interventions: Plan Treatment Frequency and duration : 1-2 times per week for 12 weeks (PT POC ending 01/18/17) Recommend PT procedures: Gait Training, Electrical Stimulation, Hot/Cold pack, Manual Therapy, Neuromuscular Re-education, Therapeutic Activity, Therapeutic Exercise Recommended Consults: None currently Development of Plan of Care: No change in POC today Total Treatment Time (Timed & Untimed): 45 min Total Time in Timed Codes: 40 min The patient has been instructed to contact our clinic if any questions or problems should arise. Electronically signed by: Chi Jackson PTA 12/14/2016 12:17 PM Electronically signed by: Chi Jackson PTA 12/14/16 1217 documented in this encounter Plan of Treatment Not on filedocumented as of this encounter Visit Diagnoses Diagnosis Arthritis of knee - Primary Unspecified arthropathy, lower leg Status post left partial knee replacemen t Decreased range of motion of left knee Gait abnormality Abnormality of gait Weakness of both lower extremities Primary osteoarthritis of both knees documented in this encounter Care Teams Loftsman Relationship Specialty Start Date End Date Chetna Loredo PCP - General Family Medicine 05/19/16 04/13/18 documented as of this encounter
--- OUTSIDE RECORDS SUMMARY | 2021-11-30 11:51 | XMS_ITS | Encounter Summary ---
:1955 Author Organization [facility] [place] [address] Care Team Providers Name Role Phone Chetna Loredo Primary Care Provider Unavailable Encounter Details Date Type Department Care Team Description 11/14/2016 Hospital Encounter Adult & Pediatric Chi Jackson Physical Therapy - MEGAN Beatty [facility] [place] [id number] [phone] Social History Tobacco Use Types Packs/Day Years [...] Therapy Visit - Daily Note - Chi Rogeriokatelin Jackson, HUMAN RESOURCES SAFETY MANAGER - 11/14/2016 6:49 PM EDT Physical Therapy Daily Note Payor: [facility] MANAGED CARE / Plan: [facility] [employer] PPO / Product Type: PPO / PT Visit Count: 5 Referring Diagnosis: Left partial knee replacement Rehabilitation Precautions/Restrictions: Precautions/Restrictions Precautions: Tachycardia, diabetes, R knee problems, DDD in lumbar spine SUBJECTIVE Patient Report: Pt reports he had a rough weekend with his knee being stiff and having more sorenessfollowing the last session. He states he took 2 oxycodone and 2 tylenol for the pain and later passed out in the front yard due to dehydration. Pt reports going to the hospital and as a precaution had an external heart monitoring device placed on him for 14 days. Pain: Pain Assessment Reports: Numerical Pain Score Pain Score 1: 0-No pain Pain Location: L knee Pain Interventions: Therapy to tolerance, See interventions OBJECTIVE General Observation/Objective Findings: Pt arrived to PT in NAD, ambulating with SPC with noticeablelimp; wearing bilateral compression hose on LE's; drinking Gatorade. HR was monitored throughout session and stayed between 65-72 beats per minute. Interventions: Interventions performed as follows: Interventions performed [...] and Cold. Education: as described in interventions Education provided: Verbal Level of understanding: Needs review ASSESSMENT Therapy Diagnosis: 1. Primary osteoarthritis of both knees 2. Arthritis of knee 3. Status post left partial knee replacement 4. Decreased range of motion of left knee 5. Weakness of both lower extremities 6. Gait abnormality Response to Visit/Summary: 61 yo male returns to PT for follow visit for s/p left partial knee replacement. Pt had no issues with heart rate and performed ex with no increased pain or adverse effects. Pt is motivated to cont ex and start advancing toward stair climbing. Pt is progressing well with initial strengthening ex and is still an appropriate candidate for cont skilled PT to increase LE strength, ROM, flexibility, functional mobility and to return pt to PLOF. Skilled Intervention needed: Verbal cues and Protocol Progression Pain Reassessment: Pain Rating 0/10 Progress Towards Goals: Pt is progressing with pain reports less than 2/10 throughout activity with the knee. Time frame to achieve goal:: 12 weeks [...] 45 min Total Time in Timed Codes: 35 min The patient has been instructed to contact our clinic if any questions or problems should arise. Electronically signed by: Chi Jackson PTA 11/15/2016 3:32 AM Electronically signed by: Chi Jackson PTA 11/15/16 0342 documented in this encounter Plan of Treatment Not on filedocumented as of this encounter Visit Diagnoses Diagnosis Primary osteoarthritis of both knees - P rimary Arthritis of knee Unspecified arthropathy, lower leg Status post left partial knee replacemen t Decreased range of motion of left knee Weakness of both lower extremities Gait abnormality Abnormality of gait documented in this encounter Care Teams Produce Team Member Relationship Specialty Start Date End Date Chetna Loredo PCP - General Family Medicine 05/19/16 04/13/18 documented as of this encounter
--- OUTSIDE RECORDS SUMMARY | 2021-11-30 11:51 | XMS_ITS | Encounter Summary ---
:1955 Author Organization [facility] [place] [address] Care Team Providers Name Role Phone Chetna Loredo Primary Care Provider Unavailable Encounter Details Date Type Department Care Team Description 01/09/2017 Hospital Encounter Adult & Pediatric Helen Guzman , Physical Therapy - PT [facility] [address] [place] [address] [phone] Social History Tobacco Use Types Packs/Day Years [...] tablet daily. documented as of this encounter Miscellaneous Notes Therapy Visit - Daily Note - Helen Guzman, PT - 01/09/2017 2:56 PM EDT Physical Therapy Daily Note Payor: [facility] MANAGED CARE / Plan: [facility] [employer] PPO / Product Type: PPO / PT Visit Count: 21 Rehabilitation Precautions/Restrictions: Precautions/Restrictions Precautions: Tachycardia, diabetes, R knee problems, DDD in lumbar spine Restrictions: None Referring Diagnosis: S/P partial knee replacement SUBJECTIVE Patient Report: States he feels good today. Has some ache in both knees. Pain: Pain Assessment Reports: No/denies pain Bhardwaj-Kraus FACES Pain Rating: No hurt Pain Location: left and right knees are achey Pain Interventions: Therapy to tolerance, See interventions OBJECTIVE General Observation/Objective Findings: Walking into dept without device and very sl limp. Able to do all the ex although did dec the weight on the leg press since it inc his pain level. Interventions: Interventions performed as follows: Interventions performed on this visit:: Yes Therapeutic Exercises: there ex per flow sheet to work on strengthening legs to improve gait and function Modalities Skin Integrity Assessment: Non Applicable Education: as described in interventions Education provided: Verbal and Demonstration Level of understanding: Independent ASSESSMENT Therapy Diagnosis: 1. Weakness of both lower extremities 2. Gait abnormality 3. Decreased range of motion of left knee 4. Status post left partial knee replacement Response to Visit/Summary: Patient has been coming to therapy post of partial knee replacement on the left. He is working on range, strength and function. He has been 21 x so far and appears to be improved. He appears motivated to continue to improve with skilled therapy. Skilled Intervention needed: Verbal cues, Education, Tx Program and Protocol Progression Pain Reassessment: Pain Rating 0/10 Progress Towards Goals: Working on goals Time frame to achieve goal:: 12 weeks Goal 1: Pt will be independent with HEP for continued gains at PT discharge. Goal 1 Comments/Progress: Progressing Goal 2: Pt will report pain of less than or equal to 2/10 with activity in L knee. Goal 2 Comments/Progress: progressing Goal 3: Pt will demonstrate L knee AROM within functional limits to allow for improved ability to perform transfers. Goal 3 Comments/Progress: goal met Goal 4: Pt will demonstrate L LE strength of 4/5 or greater to allow for improved ability to ascend/descend stairs. Goal 4 Comments/Progress: goal met Goal 5: Pt will improve Lysholm score to 80/100. Goal 5 Comments/Progress: progressing PLAN Progression needed: there ex, Treatment Frequency, Duration, and Interventions: Plan Treatment Frequency and duration : 1-2 times per week for 12 weeks (PT POC ending 01/18/17) Recommend PT procedures: Gait Training, Electrical Stimulation, Hot/Cold pack, Manual Therapy, Neuromuscular Re-education, Therapeutic Activity, Therapeutic Exercise Recommended Consults: None currently Development of Plan of Care: No change in POC today Total Treatment Time (Timed & Untimed): 45 Total Time in Timed Codes: 42 there ex The patient has been instructed to contact our clinic if any questions or problems should arise. Electronically signed by: Helen Guzman, PT 01/09/2017 3:05 PM Electronically signed by: Helen Guzman, PT 01/09/17 1504 Electronically signed by: Helen Guzman, PT 01/09/17 1505 documented in this encounter Plan of Treatment Not on filedocumented as of this encounter Visit Diagnoses Diagnosis Weakness of both lower extremities - Velma andres Gait abnormality Abnormality of gait Decreased range of motion of left knee Status post left partial knee replacemen t documented in this encounter Care Teams Eeo Officer Relationship Specialty Start Date End Date Chetna Loredo PCP - General Family Medicine 05/19/16 04/13/18 documented as of this encounter
--- OUTSIDE RECORDS SUMMARY | 2021-11-30 11:51 | XMS_ITS | Encounter Summary ---
:1955 Author Organization [facility] [place] [address] Care Team Providers Name Role Phone Chetna Loredo Primary Care Provider Unavailable Encounter Details Date Type Department Care Team Description 01/30/2017 Hospital Encounter Adult & Pediatric Ariel Rodríguez Physical Therapy - [address] [place] [address] [facility] [place] [address] Social History Tobacco Use Types Packs/Day Years [...] Notes Therapy Visit - Daily Note - Bassam Rodríguez, PT - 01/30/2017 10:21 AM EDT Physical Therapy Daily Note Payor: [facility] MANAGED CARE / Plan: [facility] [employer] PPO / Product Type: PPO / Referring Diagnosis: Arthritis of knee; S/p partial left knee replacement November 01, 2016 Rehabilitation Precautions/Restrictions: Precautions/Restrictions Precautions: None Restrictions: None Referring Diagnosis: DDD (degenerative disc disease), lumbar; Spondylosis of lumbar region without myelopathy or radiculopathy SUBJECTIVE Patient Report: The (flexion rotation) we did wasn't good. Pt and I discussed trying to push a little to get better, or just go back to his statement of I've tried PT before and it didn't help. Still having significant problems with his foot rash, and the medicine he got made him worse. I'm tired of waiting for ever at the Doctor's office, and then what they gave me made me worse. Pain: Pain Assessment Pain Location: LBP 4.5-5/10; No thigh pain; R knee 0/10; L knee 3.5-4/10 coming down stairs hurts the knees Pain Interventions: Therapy to tolerance, See interventions OBJECTIVE General Observation/Objective Findings: No changes Interventions: Interventions performed as follows: Interventions performed on this visit:: Yes Neuromuscular Re-education: Posture education, lordosis maintained, lumbar roll education Therapeutic Exercises: Mechanical ex's for decreased pain, and improved ROM and function Mechanical Traction: Supine: started at 70-40, increased to 80-40 per his request, 30-10 hold relax;20 minutes Discussed what he is seeing with the HEP. Educated continued prone at home (leg symptoms may be better he states) Supine traction per above Education: as described in interventions Education provided: Verbal and Demonstration Level of understanding: Needs review ASSESSMENT Therapy Diagnosis: 1. DDD (degenerative disc disease), lumbar 2. Spondylosis of lumbar region without myelopathy or radiculopathy 3. Chronic bilateral low back pain with right-sided sciatica Response to Visit/Summary: Pt is a 61 year old s/p partial L knee replacement. He has been stating nothing provides relief. We switched gears and I did traction today. There is noquestion his pain is mechanical in nature. We'll see the long-term effect of traction. I suggest trying prone next time to see if supine or prone provides better relief. Pt is benefiting from skilled PT for deficits in ROM, strength, balance and gait. Skilled Intervention needed: Verbal cues, Tactile cues, Education and Tx Program Pain Reassessment: Pain Rating It's better, maybe 1 pain level better. Progress Towards Goals: First time showed improved pain after interventions. PLAN Progression needed: Assess prone lumbar traction (did supine today, seeing which provides better relief) Posture education Treatment Frequency, Duration, and Interventions: Plan Treatment Frequency and duration : 1-2 times a week for up to 12 weeks (04-10-2017 lumbar) Recommend PT procedures: Neuromuscular Re-education, Manual Therapy, Therapeutic Activity, Therapeutic Exercise Recommended Consults: None currently Development of Plan of Care: No change in POC today Total Treatment Time (Timed & Untimed): 45 (EX 5; traction) Total Time in Timed Codes: 5 The patient has been instructed to contact our clinic if any questions or problems should arise. Electronically signed by: Bassam Rodríguez, PT 01/30/2017 11:58 AM Electronically signed by: Bassam Rodríguez, PT 01/30/17 1159 documented in this encounter Plan of Treatment Not on filedocumented as of this encounter Visit Diagnoses Diagnosis DDD (degenerative disc disease), lumbar - Primary Degeneration of lumbar or lumbosacral in tervertebral disc Spondylosis of lumbar region without mye lopathy or radiculopathy Chronic bilateral low back pain with rig ht-sided sciatica documented in this encounter Care Teams Hookman Relationship Specialty Start Date End Date Chetna Loredo PCP - General Family Medicine 05/19/16 04/13/18 documented as of this encounter
--- OUTSIDE RECORDS SUMMARY | 2021-11-30 11:51 | XMS_ITS | Encounter Summary ---
:1955 Author Organization [facility] [place] [address] Care Team Providers Name Role Phone Chetna Loredo Primary Care Provider Unavailable Reason for Visit Reason Onset Date Collin ManuelOceejse-[id number] 11/15/2016 Encounter Details Date Type Department Care Team Description 11/15/2016 Telephone Orthopaedics - Kate Hankins-follow-up [facility] [address] [place] [address] [place] [address] [place] [address] Social History Tobacco Use Types [...] Telephone Encounter - Kate Og RN - 11/16/2016 9:43 AM EDT Phone call to patient. Spoke with Johanna (verified on HIPAA). Appointment scheduled 12-16-16 at 11:[address] Manuel at [facility]. Instructed to return call to the office with any questions/concerns prior to scheduled follow-up. Telephone Encounter - Kate Og RN - 11/15/2016 12:30 PM EDT Phone call to patient to discuss scheduling follow-up visit with Dr. Manuel in 4 weeks. No answer, left message for callback. If patient returns call please offer appointment 12-16-16 at 11:45 AM at [facility] with Dr. Manuel. If patient accepts appointment I would be happy to schedule. documented in this encounter Plan of Treatment Not on filedocumented as of this encounter Visit Diagnoses Not on filedocumented in this encounter Care Teams Binder Coverstitch Relationship Specialty Start Date End Date Chetna Loredo PCP - General Family Medicine 05/19/16 04/13/18 documented as of this encounter
--- OUTSIDE RECORDS SUMMARY | 2021-11-30 11:51 | XMS_ITS | Encounter Summary ---
:1955 Author Organization [facility] [place] [address] Care Team Providers Name Role Phone Chetna Loredo Primary Care Provider Unavailable Reason for Visit Reason Comments Post-op Exam 2 week post op Left YOUSIF 10/15 12/01 Encounter Details Date Type Department Care Team Description 11/15/2016 Post-Op Orthopaedics - Susy Harden S/P left unicompartmental [address] [facility] [address] knee replacement (Primary [facility], [place] [address] 6 Dx) [phone] Social History Tobacco Use Types Packs/Day Years [...] Sign Reading Time Taken Comments Blood Pressure 121/68 11/15/2016 10:57 AM EDT Pulse 64 11/15/2016 10:57 AM EDT Temperature - - Respiratory Rate - - Oxygen Saturation - - Inhaled Oxygen Concentration - - Weight 112.9 kg (249 lb) 11/15/2016 10:57 AM EDT Height 180.3 cm (5' 11) 11/15/2016 10:57 AM EDT Body Mass Index 34.73 11/15/2016 10:57 AM EDT documented in this encounter Functional [...] documented as of this encounter Progress Notes Susy Martínez PA-C - 11/15/2016 10:40 AM EDT Dario Mckeon 61 y.o. Reason for Visit: 2 week POV left YOUSIF Prior Imaging: X-RAY LEFT KNEE (1-2 VIEWS, PORTABLE), 11/01/2016 10:03 AM INDICATION: YOUSIF - LEFTM17.12 Primary osteoarthritis of left knee M17.10 Arthritis of knee COMPARISON: 10/17/2016 CONCLUSION: 1. Interval medial compartment arthroplasty with expected postoperative alignment. No evidence of immediate hardware complication. 2. Sequela of recent surgery noted, including superficial yoselin, soft tissue gas, and a moderate knee effusion. 3. Moderate patellofemoral and mild lateral compartment degenerative changes. 4. No acute fracture. Orthopedics Hide copied text Hover for attribution information DATE OF SURGERY: 11/01/2016. SURGEON: Miguelito Manuel M.D. ASSISTANTS: 1. Ant Calvert MD PREOPERATIVE DIAGNOSIS: Left knee arthritis. POSTOPERATIVE DIAGNOSIS: Same. PROCEDURES PERFORMED: 1. Unicompartmental replacement with YOUSIF [place] implants size 6 on the femur, size 6 on the tibia and 8 mm polyethylene using computer guidance and robotic assistance. 2. Medial patellar facetectomy open. SPECIMENS: None. DRAINS: None. ESTIMATED BLOOD LOSS: Minimal. BLOOD REPLACEMENT: None. COMPLICATIONS: None recognized. ANESTHESIA: Regional. PREOPERATIVE INDICATIONS: The patient has had medial sided pain associated with advanced arthritis and has undergone a course of conservative treatment and requests surgery. We discussed the risks, benefits, alternatives of treatment and surgery. The risks of surgery include, but are not limited to anesthetic risk such as , infection, stiffness, pain, damage to nerves or vessels, need for further surgery, incomplete resolution of symptoms, continued pain or problems, loosening, hardware failure, polyethylene wear, fracture, need for revision, need for other surgery such as arthroscopy as well as other risks. We discussed no guarantees with surgery and informed consent was obtained. OPERATIVE FINDINGS: Stable unicompartmental arthroplasty performed with the above components. A medial patellar facetectomy was performed with a rongeur. BRIEF OPERATIVE REPORT: The patient properly identified in the preoperative holding area, proper operative site was confirmed with patient marked on the skin, taken to operating room where a regional anesthesia was obtained. The knee prepped and draped in usual sterile fashion. Time out was performed.Preoperative antibiotics were given. Standard skeletal arrays were placed in the femur and tibia andthe hip and ankle were registered. Tourniquet was elevated for less than 90 minutes and a standard medial parapatellar incision approach to the knee was placed. The check points were placed and the knee was registered. These were removed at the end of the case and counted as sharps. Cuts were planned.Based on intraoperative guidance as well as preoperative templating cuts were made with high speed bur using computer guidance and robotic assistance and the implants were trialed. Bony surfaces were cleansed and dried, cysts were curetted and the proper implants were cemented into place. The polyethylene was snapped into place without difficulty. Excellent motion and stability was appreciated. Medial patellar facetectomy was performed with a rongeur. The case was done using computer guided robotically assisted technique. Wounds were thoroughly irrigated and closed in standard fashion. Sterile dressing placed. The patient aroused from anesthesia without incident and taken to PACU in stable condition. DISPOSITION: The patient will be admitted overnight for pain medicine and physical therapy standard YOUSIF postoperative protocol. Follow up in two weeks. HPI: Patient presents today for a POV 2 weeks s/p left knee YOUSIF done on 11/01/[address] Manuel. The patient is doing better than before surgery. They are in no pain and have no new complaints or issues. The patient denies having any issues with incision sites, calf pain or swelling, shortness of breath, or fever. He has been following post - op protocol appropriately and has not weaned from pain meds. Past Medical History: Diagnosis Date ??? Diabetes [...] ??? Not on file Social History Narrative Family History Problem Relation Age of Onset ??? Hypertension Mother ??? Diabetes Father ??? Heart disease Father ??? Stroke Neg Hx Review of Systems A complete ROS was performed with pertinent positives/negatives noted in the HPI. The remainder of the ROS are negative. Updated Medication List: aspirin 325 MG EC tablet *ANTIPLATELET* Sig - Route: Take 1 tablet (325 mg total) by mouth 2 times daily for 30 days. - Oral Class: Print atorvastatin (LIPITOR) 20 MG tablet Sig - Route: Take 20 mg by mouth daily. - Oral Class: Historical Med cyclobenzaprine (FLEXERIL) 10 MG tablet Sig - Route: Take 10 mg by mouth 2 times daily. - Oral Class: Historical Med DEXT [...] mouth daily. - Oral Class: Historical Med vortioxetine (TRINTELLIX) 5 mg tablet Sig - Route: Take 5 mg by mouth daily. - Oral Class: Historical Med oxyCODONE (ROXICODONE) 5 MG immediate release tablet Sig: Take 1-2 tablets every 4-6 hrs prn pain Class: Print Vitals: 11/15/16 1057 BP: 121/68 Pulse: 64 PainSc: 2-Two (mild) Comment: left Height: 1.803 m (5' 11) Weight: 112.9 kg (249 lb) BMI (Calculated): 34.8 Physical Exam: Patient is alert, awake and oriented General: NAD Chest: clear Heart: RRR Abdomen: soft Exam Examination of left knee: Incisions are healing well. No redness, warmth, or signs of infection. Tenderness to palpation - diffusely over incision only. ROM 0-90 degrees. 1+ effusion Emili <5 mm, firm endpoint. Normal ligamentous exam otherwise. Quad atrophy is present, quad strength is weak. The patient can perform a straight leg raise. fair quad control. Gait is antalgic. No use of cane. Neurovascularly intact distally No calf swelling or palpable cord. Negative calf squeeze test. Compartments are soft, no pain with passive stretch. NVI. Pulses 2+. No lymphedema. Imaging: none today - reviewed op note and p/o xray with pt to understanding Assessment: 1. S/P left unicompartmental knee replacement XR KNEE LT 1 OR 2 VIEWS Lateral, AP; Standing Plan: - yoselin removed without complication followed by betadine and steri-strip application - continue progression with PT - continue aspirin regimen, continue sourav hose on surgical leg x 2 more weeks - Reviewed signs of DVT/infection to monitor for with patient expressing understanding - call or return if any problems or concerns - f/u 1 month for 6 week POV with imaging with Dr. Manuel Electronically signed by: Susy Martínez PA-C 11/15/2016 2:27 PM Electronically signed by: Susy Martínez PA-C 11/15/16 1442 documented in this encounter Plan of Treatment Not on filedocumented as of this encounter Results XR KNEE LT 1 OR 2 VIEWS Lateral, AP; Standing (12/16/2016 11:38 AM EDT) Anatomical Region Laterality Modality Thigh, Knee, Leg Digital Radiography Specimen (Source) Anatomical Collection Method Collection Time Re ceived Time Location / / Volume Laterality 12/16/2016 1:16 PM EDT Impressions 12/16/2016 4:25 PM EDT 1. ??Status post medial compartment arth roplasty. No hardware complications. 2. ??Mild lateral and patellofemoral manny nt degenerative changes. 3. ??Small knee joint effusion. 4. ??Interval removal of surgical staple s. Narrative 12/16/2016 4:25 PM EDT X-RAY LEFT KNEE (1-2 VIEWS), 12/16/2016 11:38 AM INDICATION: s/p LMAKO \ \ Z96.652 S/P le ft unicompartmental knee replacement COMPARISON: Radiograph of the left knee dated 11/01/2016 Procedure Note Raj Rivas MD - 12/16/2016 X-RAY LEFT KNEE (1-2 VIEWS), 12/16/2016 11 :38 AM INDICATION: s/p LMAKO \ \ Z96.652 S/P le ft unicompartmental knee replacement COMPARISON: Radiograph of the left knee dated 11/01/2016 CONCLUSION: 1. Status post medial compartment arthro plasty. No hardware complications. 2. Mild lateral and patellofemoral joint degenerative changes. 3. Small knee joint effusion. 4. Interval removal of surgical yoselin. Susy Martínez IMG DIAGNOSTIC IMAGING ORDER MASOUD documented in this encounter Visit Diagnoses Diagnosis S/P left unicompartmental knee replaceme nt - Primary S/P left unicompartmental knee replaceme nt documented in this encounter Care Teams Core Composer Feeder Relationship Specialty Start Date End Date Chetna Loredo PCP - General Family Medicine 05/19/16 04/13/18 documented as of this encounter
--- OUTSIDE RECORDS SUMMARY | 2021-11-30 11:51 | XMS_ITS | Encounter Summary ---
:1955 Author Organization [facility] [place] [address] Care Team Providers Name Role Phone Chetna Loredo Primary Care Provider Unavailable Encounter Details Date Type Department Care Team Description 01/23/2017 Hospital Encounter Adult & Pediatric Ariel Rodríguez Physical Therapy - [address] [place] [address] [facility] [place] [address] Social History Tobacco Use Types Packs/Day Years [...] Daily Note - Bassam Rodríguez, PT - 01/23/2017 12:36 PM EDT Physical Therapy Daily Note Payor: [facility] MANAGED CARE / Plan: [facility] BLUE OPTIONS PPO / Product Type: PPO / PT Visit Count: 3 (lumbar) Referring Diagnosis: Arthritis of knee; S/p partial left knee replacement November 01, 2016 Rehabilitation Precautions/Restrictions: Precautions/Restrictions Precautions: None Restrictions: None Referring Diagnosis: DDD (degenerative disc disease), lumbar; Spondylosis of lumbar region without myelopathy or radiculopathy SUBJECTIVE Patient Report: It just hurts when I try anything. This is my third round of PT, and it didn't work in the past. Pain: Pain Assessment Pain Location: LBP 4/10; R hamstring 2.5-3/10; R knee 0/10 at rest (stated with stairs) L knee 3.5/10; L hip 2/10 Pain Interventions: Therapy to tolerance, See interventions OBJECTIVE General Observation/Objective Findings: No changes in lumbar objective data again Needed cues for correct technique on flexion rotation left again Interventions: Interventions performed as follows: Interventions performed on this visit:: Yes Neuromuscular Re-education: Posture education, lordosis maintained, lumbar roll education Therapeutic Exercises: Mechanical ex's for decreased pain, and improved ROM and function Re-assessed the knee, and reviewed all knee goals Re-educated centralization Self flexion rotation left- 6 minutes, ambulated one lap Needed cues for the knee to be higher up during the position still today (question if done correctlyat home) LBP 4-5/10; R hamstring 1.5-2/10; no change in L LE Prone lying over 2 ramped pillows- 12 minutes LBP 5/10; R hamstring 1-1.5/10, no change left symptoms Once again reviewed what looks to be a centralizing type trend. Even though there is an increase in central symptoms, there is a reduction in peripheral symptoms. I educated to continue this program and lets see if the leg pain starts to shut off fully, and then see if we can start to reduce the LBP as well. I educated we can try flexion rotation L manually, as well as try some PA glides to see if helpful. Education: as described in interventions Education provided: Verbal and Demonstration Level of understanding: Needs review ASSESSMENT Therapy Diagnosis: 1. DDD (degenerative disc disease), lumbar 2. Spondylosis of lumbar region without myelopathy or radiculopathy 3. Chronic bilateral low back pain with right-sided sciatica 4. Joint stiffness of spine Response to Visit/Summary: Pt is a 61 year old s/p partial L knee replacement. Pt appears to demonstrate a centralizing type trend with decreasing of the peripheral symptoms with current treatments. He may do better with the manual version of flexion rotation L as he loses technique some times. He may respond to PA glides during prone as well. We kept his HEP the same. I encouraged proper technique with the knee as high as the hip with flexion rotation L. He understood. He understands the idea of centralization. We will just have to see if he starts to reduce. The patient doesn't appear real motivated, as he has never gotten better in the lumbar spine with 2 attempts at PT in the past. Pt is benefiting from skilled PT for deficits in ROM, strength, balance and gait. Skilled Intervention needed: Verbal cues, Tactile cues, Education and Tx Program Pain Reassessment: Pain Rating See interventions Progress Towards Goals: None yet. PLAN Progression needed: Ex's for strength, ROM, balance and gait Treatment Frequency, Duration, and Interventions: Plan Treatment Frequency and duration : 1-2 times a week for up to 12 weeks (04-10-2017 lumbar) Recommend PT procedures: Neuromuscular Re-education, Manual Therapy, Therapeutic Activity, Therapeutic Exercise Recommended Consults: None currently Development of Plan of Care: No change in POC today Total Treatment Time (Timed & Untimed): 50 (EX 40) Total Time in Timed Codes: 50 The patient has been instructed to contact our clinic if any questions or problems should arise. Electronically signed by: Bassam Rodríguez, PT 01/23/2017 12:42 PM Electronically signed by: Bassam Rodríguez, PT 01/23/17 1329 documented in this encounter Plan of Treatment Not on filedocumented as of this encounter Visit Diagnoses Diagnosis DDD (degenerative disc disease), lumbar - Primary Degeneration of lumbar or lumbosacral in tervertebral disc Spondylosis of lumbar region without mye lopathy or radiculopathy Chronic bilateral low back pain with rig ht-sided sciatica Joint stiffness of spine Stiffness of joint, not elsewhere classi fied, other specified site documented in this encounter Care Teams Microgrinder Operator Relationship Specialty Start Date End Date Chetna Loredo PCP - General Family Medicine 05/19/16 04/13/18 documented as of this encounter
--- OUTSIDE RECORDS SUMMARY | 2021-11-30 11:51 | XMS_ITS | Encounter Summary ---
:1955 Author Organization [facility] [place] [address] Care Team Providers Name Role Phone Chetna Loredo Primary Care Provider Unavailable Reason for Visit Reason Onset Date Comments Results 11/24/2016 Encounter Details Date Type Department Care Team Description 11/24/2016 Telephone [facility] Rubi Elizondo CMA Results Cardiology - [place] [address] [facility] [address] [place] [address] [place] [address] Social History Tobacco Use Types [...] encounter Miscellaneous Notes Telephone Encounter - Rubi Handley CMA - 11/24/2016 2:58 PM EDT Informed patient of monitor results & no med changes. Patient verbalized that he understands. Electronically signed by: Rubi Handley CMA 11/24/16 1458 Telephone Encounter - Rubi Handley CMA - 11/24/2016 2:57 PM EDT ----- Message from Funmilayo Eason MD sent at 11/24/2016 1:19 PM EDT ----- His monitor did not show any SVT just occasional premature beats. Good news. No change to meds. Electronically signed by: Rubi Handley CMA 11/24/16 1457 documented in this encounter Plan of Treatment Not on filedocumented as of this encounter Visit Diagnoses Not on filedocumented in this encounter Care Teams Hyperion Developer Relationship Specialty Start Date End Date Chetna Loredo PCP - General Family Medicine 05/19/16 04/13/18 documented as of this encounter
--- OUTSIDE RECORDS SUMMARY | 2021-11-30 11:51 | XMS_ITS | Encounter Summary ---
:1955 Author Organization [facility] [place] [address] Care Team Providers Name Role Phone Chetna Loredo Primary Care Provider Unavailable Encounter Details Date Type Department Care Team Description 11/28/2016 Hospital Encounter Adult & Pediatric Chi Jackson Physical Therapy - [facility] [place] [place] [id number] [phone] Social History Tobacco Use Types Packs/Day Years [...] Visit - Daily Note - Chi Jackson, SFDC ARCHITECT - 11/28/2016 5:33 PM EDT Physical Therapy Daily Note Payor: [facility] MANAGED CARE / Plan: [facility] [employer]UE OPTIONS PPO / Product Type: PPO / PT Visit Count: 9 Referring Diagnosis: Left partial knee replacement Rehabilitation Precautions/Restrictions: Precautions/Restrictions Precautions: Tachycardia, diabetes, R knee problems, DDD in lumbar spine SUBJECTIVE Patient Report: Pt states his hips are much better today and is only a little achy in the L knee dueto walking. Pt reports having no pain post tx and deferred to ice at home. Pain: Pain Assessment Reports: Numerical Pain Score Pain Score 1: 0-No pain Pain Location: L knee, patellar tendon Pain Interventions: Therapy to tolerance, See interventions OBJECTIVE General Observation/Objective Findings: Pt arrived to PT in NAD, ambulating with no SPC and slight limp on L side; no compression hose on L LE today. Interventions: Interventions performed as follows: Interventions performed on this visit:: Yes Therapeutic Exercises: See Flow sheet. Therapeutic ex to increase LE ROM, strength, flexibility, andfunctional mobility. Modalities Skin Integrity Assessment: Non Applicable Education: [...] s/p left partial knee replacement. Pt responded well to therapeutic ex today with no increased pain or adverse effects. Some standing and squatting ex were eliminated or modified today due to increased left knee pain prior to last session. Pt cont to be motivated and would benefit from cont skilled PT to decrease pain, increase ROM, strength, flexibility, functional mobility/gait and to return pt to PLOF. Skilled Intervention needed: Verbal cues and Protocol Progression Pain Reassessment: Pain Rating 0/10 Progress Towards Goals: Pt is improving sit to stand transfers from raised mat table with no pain. Time frame to achieve goal:: 12 weeks [...] today Total Treatment Time (Timed & Untimed): 40 min Total Time in Timed Codes: 40 min The patient has been instructed to contact our clinic if any questions or problems should arise. Electronically signed by: Chi Jackson PTA 11/28/2016 5:40 PM Electronically signed by: Chi Jackson PTA 11/28/16 1740 documented in this encounter Plan of Treatment Not on filedocumented as of this encounter Visit Diagnoses Diagnosis Primary osteoarthritis of both knees - P rimary Arthritis of knee Unspecified arthropathy, lower leg Status post left partial knee replacemen t Decreased range of motion of left knee Weakness of both lower extremities Gait abnormality Abnormality of gait documented in this encounter Care Teams Production Mechanic Relationship Specialty Start Date End Date Chetna Loredo PCP - General Family Medicine 05/19/16 04/13/18 documented as of this encounter
--- OUTSIDE RECORDS SUMMARY | 2021-11-30 11:51 | XMS_ITS | Encounter Summary ---
:1955 Author Organization [facility] [place] [address] Care Team Providers Name Role Phone Chetna Loredo Primary Care Provider Unavailable Encounter Details Date Type Department Care Team Description 12/12/2016 Hospital Encounter Adult & Pediatric Ariel Rodríguez Physical Therapy - [address] [place] [address] [facility] [place] [address] Social History Tobacco Use Types Packs/Day Years [...] Daily Note - Bassam Rodríguez, PT - 12/12/2016 11:22 AM EDT Physical Therapy Daily Note Payor: [facility] MANAGED CARE / Plan: [facility] BLUE OPTIONS PPO / Product Type: PPO / PT Visit Count: 13 Referring Diagnosis: Arthritis of knee; S/p partial left knee replacement November 01, 2016 Rehabilitation Precautions/Restrictions: Precautions/Restrictions Precautions: Tachycardia, diabetes, R knee problems, DDD in lumbar spine Restrictions: None SUBJECTIVE Patient Report: Stated he was pretty active this past weekend. Pain: Pain Assessment Pain Location: 2.5/10; I did a lot of walking yesterday.; L knee Pain Interventions: Therapy to tolerance, See interventions OBJECTIVE General Observation/Objective Findings: Still needs UE assist for stairs. Interventions: Interventions performed as follows: Interventions performed on this visit:: Yes Therapeutic Exercises: See Flow sheet. Therapeutic ex to increase LE ROM, strength, flexibility, andfunctional mobility. Cues for leaving the foot up on the step the entire time for step ups Cues for toes pointing forward or in with hip abduction ambulation with TB I don't know if I need the tape (KT), as it seems to fall of so fast. Education: as described in interventions Education provided: Verbal and Demonstration Level of understanding: Needs review ASSESSMENT Therapy Diagnosis: 1. Arthritis of knee 2. Status post left partial knee replacement 3. Decreased range of motion of left knee 4. Gait abnormality 5. Weakness of both lower extremities Response to Visit/Summary: Pt is a 61 year old s/p partial L knee replacement. Pt is benefiting from skilled PT for deficits in ROM, strength, balance and gait. He was able to increase resistance on the leg press today, but it was a struggle for him. He was not able to increase resistance in hamstring curl today. He needs relatively little cueing for ex's. He continues to be motivated to get better. Functionally he stated he was able to do about a 100 wheelbarrow loads of yard waste, cleaning up a wooded area in his yard. Skilled Intervention needed: Verbal cues, Tactile cues, Education and Tx Program Pain Reassessment: Pain Rating No worse leaving Progress Towards Goals: Appropriate PLAN Progression needed: Ex's for strength, ROM, [...] today Total Treatment Time (Timed & Untimed): 55 (EX 45, ice 8) Total Time in Timed Codes: 45 The patient has been instructed to contact our clinic if any questions or problems should arise. Electronically signed by: Bassam Rodríguez, PT 12/12/2016 11:23 AM Electronically signed by: Bassam Rodríguez, PT 12/12/16 1157 documented in this encounter Plan of Treatment Not on filedocumented as of this encounter Visit Diagnoses Diagnosis Arthritis of knee - Primary Unspecified arthropathy, lower leg Status post left partial knee replacemen t Decreased range of motion of left knee Gait abnormality Abnormality of gait Weakness of both lower extremities documented in this encounter Care Teams Environmental Systems Coordinator Relationship Specialty Start Date End Date Chetna Loredo PCP - General Family Medicine 05/19/16 04/13/18 documented as of this encounter
--- OUTSIDE RECORDS SUMMARY | 2021-11-30 11:51 | XMS_ITS | Encounter Summary ---
:1955 Author Organization [facility] [place] [address] Care Team Providers Name Role Phone Chetna Loredo Primary Care Provider Unavailable Encounter Details Date Type Department Care Team Description 01/11/2017 Hospital Encounter Adult & Pediatric Chi Jackson Physical Therapy - MEGAN Beatty [facility] [place] [id number] [phone] Social History Tobacco Use Types Packs/Day Years [...] Visit - Daily Note - Chi Jackson, MANAGER MEDIA RELATIONS - 01/11/2017 1:41 PM EDT Physical Therapy Daily Note Payor: [facility] MANAGED CARE / Plan: [facility] BLUE OPTIONS PPO / Product Type: PPO / PT Visit Count: 22 Referring Diagnosis: Left partial knee replacement Rehabilitation Precautions/Restrictions: Precautions/Restrictions Precautions: Tachycardia, diabetes, R knee problems, DDD in lumbar spine Restrictions: None Referring Diagnosis: S/P partial knee replacement SUBJECTIVE Patient Report: Pt states his knee is less swollen since he has been taking ibuprofen 800 at night. Pt reports his knee doesn't hurt to walk as much anymore, but still hurts a little on stairs. Pain: Pain Assessment Reports: Numerical Pain Score Pain Score 1: 2 Pain Location: L knee Pain Interventions: Therapy to tolerance, See interventions OBJECTIVE General Observation/Objective Findings: Pt arrived to PT in NAD, ambulating with no AD and slight limp on L side. Interventions: Interventions performed as follows: Interventions performed on this visit:: Yes Therapeutic Exercises: there ex per flow sheet to work on strengthening and stretching legs to improve gait and function Other: Ice to L knee in supine with wedge x 8 mins Modalities Skin Integrity Assessment: Non Applicable Education: as described in interventions and Body Mechanics Education provided: Verbal and Demonstration Level of understanding: Needs review ASSESSMENT Therapy Diagnosis: 1. Weakness of both lower extremities 2. Gait abnormality 3. Decreased range of motion of left knee 4. Status post left partial knee replacement 5. Arthritis of knee 6. Primary osteoarthritis of both knees Response to Visit/Summary: 61 yo male returns to PT for follow up visit for s/p left partial knee replacement. Pt was able to perform new hip strengthening ex and increased intensity of LE strengthening ex with no adverse effects. Pt is progressing with wallslides with 6 # wt added today with 's fortechnique. Pt cont to improve, however is still having some lateral left knee pain when performing mini-squats or wallslides past 30 degrees. Pt cont to be motivated and would benefit from cont skilledPT to decrease pain, increase ROM, strength, flexibility, functional mobility/gait and to return pt to [facility]. Skilled Intervention needed: Verbal cues and Protocol Progression Pain Reassessment: Pain Rating: feels good; no pain number given. Progress Towards Goals: Pt progressing with strength with increased intensity today. Time frame to achieve goal:: 12 weeks Goal 1: Pt will be independent with HEP for continued gains at PT discharge. Goal 2: Pt will report pain of less than or equal to 2/10 with activity in L knee. Goal 3: Pt will demonstrate L knee AROM within functional limits to allow for improved ability to perform transfers. Goal 4: Pt will demonstrate L [...] 45 min Total Time in Timed Codes: 45 min The patient has been instructed to contact our clinic if any questions or problems should arise. Electronically signed by: Chi Jackson PTA 01/11/2017 2:37 PM Electronically signed by: Chi Jackson PTA 01/11/17 1437 documented in this encounter Plan of Treatment Not on filedocumented as of this encounter Visit Diagnoses Diagnosis Weakness of both lower extremities - eVlma campos Gait abnormality Abnormality of gait Decreased range of motion of left knee Status post left partial knee replacemen t Arthritis of knee Unspecified arthropathy, lower leg Primary osteoarthritis of both knees documented in this encounter Care Teams Debt And Budget Counselor Relationship Specialty Start Date End Date Chetna Loredo PCP - General Family Medicine 05/19/16 04/13/18 documented as of this encounter
--- OUTSIDE RECORDS SUMMARY | 2021-11-30 11:51 | XMS_ITS | Encounter Summary ---
:1955 Author Organization [facility] [place] [address] Care Team Providers Name Role Phone Chenta Loredo Primary Care Provider Unavailable Encounter Details Date Type Department Care Team Description 02/09/2017 Hospital Encounter Adult & Pediatric Huey Lincoln , Physical Therapy - PT [facility] [address] [facility] [place] [id number] [phone] Social History Tobacco Use Types Packs/Day Years [...] Notes Therapy Visit - Daily Note - Huey Lincoln, PT - 02/09/2017 10:01 AM EDT Physical Therapy Daily Note Payor: [facility] MANAGED CARE / Plan: [facility] BLUE OPTIONS PPO / Product Type: PPO / PT Visit Count: 6 Referring Diagnosis: Lumbar DDD, Spondylosis of lumbar region without myelopathy or radiculopathy Rehabilitation Precautions/Restrictions: Precautions/Restrictions Precautions: None Restrictions: None Referring Diagnosis: DDD (degenerative disc disease), lumbar; Spondylosis of lumbar region without myelopathy or radiculopathy SUBJECTIVE Patient Report: Yesterday raking leaves, slightly bending forward, 2 hours total, with break after the 1st hour. No back pain during the yardwork, but afterwards, pain increased to 6/10 back pain. He thinks he probably overdid it. Pain: Pain Assessment Reports: Numerical Pain Score Pain Score 1: 5 Pain Location: LB, 4/10, intermittent B Knee pain Pain Interventions: Therapy to tolerance, See interventions OBJECTIVE General Observation/Objective Findings: Prior traction: LBP 6/10, Hip/Buttocks 6/10, knee pain L 6/10, 0/10 foot, R Knee ache isolated from OA Post traction: LBP 6/10, Hip/Butt 6/10, Knee pain L 6/10 pain, 0/10 foot, R knee ache isolated from OA Interventions: Interventions performed as follows: Mechanical Traction: Prone: 80/40lbs,30 sec on, 10 sec hold, 20 minutes, to increase intervertebral space to decrease stress on the spine, decreasing low back pain and referred pain. Modalities Skin Integrity Assessment: Non Applicable Education: as described in interventions, HEP instruction, Posture and Body Mechanics Education provided: Verbal, Demonstration and Written/hand out Level of understanding: Needs review ASSESSMENT Therapy Diagnosis: 1. DDD (degenerative disc disease), lumbar 2. Spondylosis of lumbar region without myelopathy or radiculopathy 3. Chronic bilateral low back pain with right-sided sciatica 4. Joint stiffness of spine Response to Visit/Summary: 61 y/o male referred for DDD Lumbar pain, presenting with 6/10 LBP with referred pain levels, see above for details. At this time, prone pelvic traction only. No change in symptoms. Pt could benefit from skilled physical therapy in order to instruct patient on repetitive movements of extension bias program to decrease intervertebral pressure on the Lumbar Disc. Skilled Intervention needed: Verbal cues, Tactile cues, Education, Tx Program and Protocol Progression Pain Reassessment: Pain Rating 6/10, same as above Progress Towards Goals: Unable to progress with goals at this time PLAN Progression needed: Continue Pelvic Traction, Pt to practice good body mechanics with yardwork Treatment Frequency, Duration, and Interventions: Plan Treatment Frequency and duration : 1-2 times a week for up to 12 weeks (04-10-2017 lumbar) Recommend PT procedures: Neuromuscular Re-education, Manual Therapy, Therapeutic Activity, Therapeutic Exercise Recommended Consults: None currently Development of Plan of Care: No change in POC today Total Treatment Time (Timed & Untimed): 40 min= 20 min Pelvic Traction Total Time in Timed Codes: 20 min Pelvic Traction The patient has been instructed to contact our clinic if any questions or problems should arise. Electronically signed by: Huey Lincoln, PT 02/09/2017 9:59 PM Electronically signed by: Huey Lincoln, PT 02/09/17 documented in this encounter Plan of Treatment [...] site documented in this encounter Care Teams Package Collector Relationship Specialty Start Date End Date Chetna Loredo PCP - General Family Medicine 05/19/16 04/13/18 documented as of this encounter
--- OUTSIDE RECORDS SUMMARY | 2021-11-30 11:51 | XMS_ITS | Encounter Summary ---
:1955 Author Organization [facility] [place] [address] Care Team Providers Name Role Phone Chetna Loredo Primary Care Provider Unavailable Encounter Details Date Type Department Care Team Description 02/20/2017 Hospital Encounter Adult & Pediatric Ariel Rodríguez Physical Therapy - [address] [place] [address] [facility] [place] [address] Social History Tobacco Use Types Packs/Day Years [...] as of this encounter Miscellaneous Notes Therapy Discharge Summary - Bassam Rodríguez, PT - 02/20/2017 12:44 PM EST Physical Therapy Discharge After speaking briefly with the patient today about his back and lack of improvements, he decided todischarge physical therapy. Referring Diagnosis: M51.36 (ICD-10-CM) - 722.52 (ICD-9-CM) - DDD (degenerative disc disease), lumbar M47.816 (ICD-10-CM) - 721.3 (ICD-9-CM) - Spondylosis of lumbar region without myelopathy or radiculopathy Referring Clinician: Chetan Whitaker,* Therapy Diagnosis: 1. DDD (degenerative disc disease), lumbar 2. Chronic bilateral low back pain with right-sided sciatica Initial Evaluation Date: 01/16/2017 Number of Visits to Date: PT Visit Count: (No treatment today) Number of Missed Visits: 2 lumbar visits (also seen for knee in past) Date of Last Completed Visit: 02-20-2017 Therapy program to date: In summary, the therapy program has included mechanical based exercise, positioning, and traction attempts. Posture and ergonomics training. Discussed e.stim, which he has already at home. Progress Summary: No improvements. Goals not met. Discharge Status: Discharged early due to lack of improvements Discharge Reason: As above Patient discharged at this time, further therapy will require a physician referral. Electronically signed by: Bassam Rodríguez, PT 02/20/2017 12:44 PM Electronically signed by: Bassam Rodríguez, PT 02/20/17 1251 documented in this encounter Plan of Treatment Not on filedocumented as of this encounter Visit Diagnoses Diagnosis DDD (degenerative disc disease), lumbar - Primary Degeneration of lumbar or lumbosacral in tervertebral disc Chronic bilateral low back pain with rig ht-sided sciatica documented in this encounter Care Teams Edge Sander Relationship Specialty Start Date End Date Chetna Loredo PCP - General Family Medicine 05/19/16 04/13/18 documented as of this encounter
--- OUTSIDE RECORDS SUMMARY | 2021-11-30 11:51 | XMS_ITS | Encounter Summary ---
:1955 Author Organization Count Includes [facility] Ba ptist Address [place] [id number] Care Team Providers Name Role Phone Chetna Loredo Primary Care Provider Unavailable Reason for Visit Reason Comments Left Knee Problem Encounter Details Date Type Department Care Team Description 11/16/2016 Hospital Encounter Adult & Pediatric Tera Wilson , Physical Therapy - PT [address] [id number] Social History Tobacco Use Types Packs/Day Years [...] Notes Therapy Visit - Daily Note - Tera Wilson, PT - 11/16/2016 11:20 AM EDT Physical Therapy Daily Note Payor: [facility] MANAGED CARE / Plan: [facility] BLUE OPTIONS PPO / Product Type: PPO / PT Visit Count: 6 Referring Diagnosis: Left partial knee replacement Rehabilitation Precautions/Restrictions: Precautions/Restrictions Precautions: Tachycardia, diabetes, R knee problems, DDD in lumbar spine SUBJECTIVE Patient Report: Pt reports he is doing well today. Had yoselin removed yesterday. Had some soreness along the side of his knee yesterday. Pain: Pain Assessment Reports: No/denies pain Pain Score 1: 0-No pain Pain Location: L knee Pain Interventions: Therapy to tolerance, See interventions OBJECTIVE General Observation/Objective Findings: Pt arrived to PT in NAD, ambulating with SPC with noticeablelimp; Wears compression hose on LLE. Good patellar mobility. ROM 0-110 today Interventions: Interventions performed as follows: Interventions performed on this visit:: Yes Therapeutic Exercises: See Flow sheet. Therapeutic ex to increase LE ROM, strength, flexibility, andfunctional mobility. Modalities Skin Integrity Assessment: Modalities Performed per [...] 3. Status post left partial knee replacement Response to Visit/Summary: 61 yo male returns to PT for follow visit for s/p left partial knee replacement. He is progressing slowly with ROM, strength, and mobility. Still dealing with some control issues for eccentric strength but at only 2 weeks post-op this is expected. I fully expect him to progress normally following this surgery over the next few weeks. Will continue to benefit from skilled PTservices in order to maximize his ROM, strength/stability, and gait gains for a full return to PLOF. Skilled Intervention needed: Verbal cues and Protocol Progression Pain Reassessment: Pain Rating 0/10 Progress Towards Goals: Pt is progressing with pain reports less than 2/10 throughout activity with the knee. Time frame to achieve goal:: 12 weeks Goal 1: Pt will be independent with HEP for continued gains at PT discharge. Goal 1 Comments/Progress: progressing Goal 2: Pt will report pain of less than or equal to 2/10 with activity in L knee. Goal 2 Comments/Progress: 04/26 today PLAN Progression needed: Progress with therapeutic ex [...] Total Time in Timed Codes: 35 min (2 ex) The patient has been instructed to contact our clinic if any questions or problems should arise. Electronically signed by: Tera Wilson, PT 11/16/2016 11:20 AM Electronically signed by: Tera Wilson, PT 11/16/16 1147 documented in this encounter Plan of Treatment Not on filedocumented as of this encounter Visit Diagnoses Diagnosis Primary osteoarthritis of both knees - P rimary Arthritis of knee Unspecified arthropathy, lower leg Status post left partial knee replacemen t documented in this encounter Care Teams Pain Medicine Physician Relationship Specialty Start Date End Date Chetna Loredo PCP - General Family Medicine 05/19/16 04/13/18 documented as of this encounter
--- OUTSIDE RECORDS SUMMARY | 2021-11-30 11:51 | XMS_ITS | Encounter Summary ---
:1955 Author Organization [facility] [place] [address] Care Team Providers Name Role Phone Chetna Loredo Primary Care Provider Unavailable Reason for Visit Reason Comments Post-op Exam 61 yo male ambulatory to [facility] without aids. Presents today for follow-up 6 weeks post-op le ft medial YOUSIF and open patellar medial patellar facetectomy 11-01-16 . States overall left knee is improved. Participating in outpatient physical therapy twice per week. Encounter Details Date Type Department Care Team Description 12/16/2016 Post-Op Orthopaedics - Miguelito Ash MD S/P left unicompartmental [address] [facility] [address] knee replacement (Primary [place] [id number] [address] Dx) [phone] [place] [id number] Social History Tobacco Use Types Packs/Day Years [...] Sign Reading Time Taken Comments Blood Pressure 118/70 12/16/2016 11:43 AM EDT Pulse 63 12/16/2016 11:43 AM EDT Temperature 36.6 ??C (97.9 ??F) 12/16/2016 11:43 AM EDT Respiratory Rate - - Oxygen Saturation - - Inhaled Oxygen Concentration - - Weight 114 kg (251 lb 5.2 oz) 12/16/2016 11:43 AM EDT Height 180.3 cm (5' 11) 12/16/2016 11:43 AM EDT Body Mass Index 35.05 12/16/2016 11:43 AM EDT documented in this encounter Functional [...] encounter Progress Notes Miguelito Manuel MD - 12/16/2016 11:45 AM EDT Date of surgery: 11-01-16. Surgery performed: 6 weeks post-op left medial YOUSIF and open medial patellar facetectomy 11-01-16 Pain medicine- Managing pain with OTC extra strength Tylenol. Progress with PT- Participating in outpatient physical therapy twice per week. 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 Dario Mckeon 61 y.o. HPI: 6 weeks s/p medial YOUSIF. Overall the knee feels better than before surgery. Has some anterior knee pain bilaterally. Past Medical History: Diagnosis Date ??? Diabetes [...] the ROS are negative. Updated Medication List: atorvastatin (LIPITOR) 20 MG tablet Sig - [...] for 30 days. - Oral Class: Print oxyCODONE (ROXICODONE) 5 MG immediate release tablet Sig: Take 1-2 tablets every 4-6 hrs prn pain Class: Print Vitals: 12/16/16 1143 BP: 118/70 Pulse: 63 Temp: 97.9 ??F (36.6 ??C) PainSc: 2-Two (mild) Comment: Left Height: 1.803 m (5' 11) Weight: 114 kg (251 lb 5.2 oz) BMI (Calculated): 35.1 Physical Exam: NAD Examination of left knee: Incisions are healed. No redness, warmth, or signs of infection. Tenderness to palpation- mild anterior ROM 0-125 degrees. 1+ effusion Emili 4 mm, firm endpoint. Normal ligamentous exam otherwise. Quad atrophy is present, quad strength is weak. The patient can perform a straight leg raise. good quad control. Gait is full Neurovascularly intact distally No calf swelling or palpable cord. Negative calf squeeze test. Compartments are soft, no pain with passive stretch. NVI. Pulses 2+. No lymphedema. Assessment: 6 weeks left knee medial YOUSIF Plan: Plan- Elevate, rest, ice, compression as needed. PT- continue therapy. Ok to transition to home dose aspirin. Reviewed worrisome signs of DVT, including calf swelling, warmth, palpable cord, etc. Patient has noevidence for blood clot today, and will seek medical attention immediately if any concerning symptoms develop. Electronically signed by: Miguelito Manuel MD 12/23/16 0921 documented in this encounter Plan of Treatment Not on filedocumented as of this encounter Visit Diagnoses Diagnosis S/P left unicompartmental knee replaceme nt - Primary documented in this encounter Care Teams Produce Team Lead Relationship Specialty Start Date End Date Chetna Loredo PCP - General Family Medicine 05/19/16 04/13/18 documented as of this encounter
--- OUTSIDE RECORDS SUMMARY | 2021-11-30 11:51 | XMS_ITS | Encounter Summary ---
:1955 Author Organization [facility] [place] [address] Care Team Providers Name Role Phone Chetna Loredo Primary Care Provider Unavailable Encounter Details Date Type Department Care Team Description 12/08/2016 Hospital Encounter Adult & Pediatric Ariel Rodríguez Physical Therapy - [address] [place] [address] [facility] [place] [address] Social History Tobacco Use Types Packs/Day Years [...] Daily Note - Bassam Rodríguez, PT - 12/08/2016 5:06 PM EDT Physical Therapy Daily Note Payor: [facility] MANAGED CARE / Plan: [facility] BLUE OPTIONS PPO / Product Type: PPO / PT Visit Count: 12 Referring Diagnosis: Arthritis of knee; S/p partial left knee replacement November 01, 2016 Rehabilitation Precautions/Restrictions: Precautions/Restrictions Precautions: Tachycardia, diabetes, R knee problems, DDD in lumbar spine Restrictions: None SUBJECTIVE Patient Report: I still get soreness with stairs, but Chi states it's still early. Pain: Pain Assessment Pain Location: 1.5-2/10 L knee Pain Interventions: Therapy to tolerance, See interventions OBJECTIVE General Observation/Objective Findings: Knee flexion 118 on steps Interventions: Interventions performed as follows: Interventions performed on this visit:: Yes Therapeutic Exercises: See Flow sheet. Therapeutic ex to increase LE ROM, strength, flexibility, andfunctional mobility. Other: CP to left knee x 10 min post ex in long sitting to decrease pain, inflammation, and swelling. Cues for leaving the foot up on the step the entire time for step ups Education: as described in interventions Education provided: Verbal and Demonstration Level of understanding: Needs review ASSESSMENT Therapy Diagnosis: 1. Arthritis of knee 2. Status post left partial knee replacement 3. Decreased range of motion of left knee 4. Gait abnormality 5. Weakness of both lower extremities Response to Visit/Summary: Pt is a 61 year old s/p partial L knee replacement. He continues with deficits in ROM and strength, as well as balance and gait. He can benefit from ex's for these deficits. Skilled Intervention needed: Verbal cues, Tactile cues, Education and Tx Program Pain Reassessment: Pain Rating about the same Progress Towards Goals: Appropriate PLAN Progression needed: [...] Time (Timed & Untimed): 55 (EX 45, MT 5) Total Time in Timed Codes: 50 The patient has been instructed to contact our clinic if any questions or problems should arise. Electronically signed by: Bassam Rodríguez, PT 12/08/2016 6:02 PM Electronically signed by: Bassam Rodríguez, PT 12/08/16 1802 documented in this encounter Plan of Treatment Not on filedocumented as of this encounter Visit Diagnoses Diagnosis Arthritis of knee - Primary Unspecified arthropathy, lower leg Status post left partial knee replacemen t Decreased range of motion of left knee Gait abnormality Abnormality of gait Weakness of both lower extremities documented in this encounter Care Teams Juice Mixer Relationship Specialty Start Date End Date Chetna Loredo PCP - General Family Medicine 05/19/16 04/13/18 documented as of this encounter
--- OUTSIDE RECORDS SUMMARY | 2021-11-30 11:51 | XMS_ITS | Encounter Summary ---
:1955 Author Organization [facility] [place] [address] Care Team Providers Name Role Phone Chetna Loredo Primary Care Provider Unavailable Encounter Details Date Type Department Care Team Description 01/26/2017 Hospital Encounter Adult & Pediatric Ariel Rodríguez Physical Therapy - [address] [place] [address] [facility] [place] [address] Social History Tobacco Use Types Packs/Day Years [...] Daily Note - Bassam Rodríguez, PT - 01/26/2017 12:37 PM EDT Physical Therapy Daily Note Payor: [facility] MANAGED CARE / Plan: [facility] BLUE OPTIONS PPO / Product Type: PPO / PT Visit Count: 4 (g4) Referring Diagnosis: Arthritis of knee; S/p partial [...] past. Pain: Pain Assessment Pain Location: LBP 3-4/10; R hamstring 1/10; R knee 1.5/10 (stairs); L knee 1.5/10; L hip 0/10 I'vetaken it easy this morning. Other Pain Comments: The left knee wants to hyperextend; Describing some kind of foot rash/itch, going to md after this visit OBJECTIVE General Observation/Objective Findings: No changes in lumbar objective data again. I'm the same Needed cues for correct technique on flexion rotation left again, top knee was not high enough Interventions: Interventions performed as follows: Interventions performed on this visit:: Yes Neuromuscular Re-education: Posture education, lordosis maintained, lumbar roll education Therapeutic Exercises: Mechanical ex's for decreased pain, and improved ROM and function Re-educated centralization. Discussed what he is seeing with the HEP. Self flexion rotation left- 3 minutes, stopped with poor technique and high pain Manual flexion rotation L- 2 sets. Gained on ROM, but had significant pain Pain in LB is up 4-5/10 point, higher up the back; same right hamstring, R knee No change left symptoms (which is a good sign with R lateral treatment) Prone lying over 3 ramped pillows, and plinth elevated- 15 minutes; prone extension reps Pain in LB is up 5/10 point, higher up the back; No right hamstring (good), 1.5/10 R knee No change left symptoms (which is a good sign with R lateral treatment) Continues to show decreased R leg symptoms in a centralizing type trend with an increase in central symptoms. Educated prone only for the HEP with increased extension (stomach was causing flexion), and extension reps. Education: as described in interventions Education provided: Verbal and Demonstration Level of understanding: Needs review ASSESSMENT Therapy Diagnosis: 1. DDD (degenerative disc disease), lumbar 2. Spondylosis of lumbar region without myelopathy or radiculopathy 3. Chronic bilateral low back pain with right-sided sciatica 4. Joint stiffness of spine Response to Visit/Summary: Pt is a 61 year old s/p partial L knee replacement. We are getting poor results to date, so either we are dealing with an irreducible derangement or poor mechanical movements not getting the results. I know for a fact that he is not doing the flexion rotation correctly. I stopped this for the HEP. That leaves us with prone extension only at this point,which is what I gave him for a HEP. I extended him further to avoid stomach causing flexion (if too flat). We will see what is going on with follow-up. We discussed weight loss to unload the spine. We discussed trying traction or pool to unload the spine as well. I'm going to try to exhaust the mechanical approach in the next couple of visits before switching treatments. Pt is benefiting from skilled PT for [...] Treatment Time (Timed & Untimed): 45 (EX 30, MT 10) Total Time in Timed Codes: 40 The patient has been instructed to contact our clinic if any questions or problems should arise. Electronically signed by: Bassam Rodríguez, PT 01/26/2017 12:37 PM Electronically signed by: Bassam Rodríguez, PT 01/26/17 1319 documented in this encounter Plan of Treatment [...] site documented in this encounter Care Teams Yard Coupler Relationship Specialty Start Date End Date Chetna Loredo PCP - General Family Medicine 05/19/16 04/13/18 documented as of this encounter
--- OUTSIDE RECORDS SUMMARY | 2021-11-30 11:51 | XMS_ITS | Encounter Summary ---
:1955 Author Organization [facility] [place] [address] Care Team Providers Name Role Phone Chetna Loredo Primary Care Provider Unavailable Encounter Details Date Type Department Care Team Description 12/22/2016 Hospital Encounter Adult & Pediatric Ariel Rodríguez Physical Therapy - [address] [place] [address] [facility] [place] [address] Social History Tobacco Use Types Packs/Day Years [...] Daily Note - Bassam Rodríguez, PT - 12/22/2016 10:32 AM EDT Physical Therapy Daily Note Payor: [facility] MANAGED CARE / Plan: [facility] BLUE OPTIONS PPO / Product Type: PPO / PT Visit Count: 16 Referring Diagnosis: Arthritis of knee; S/p partial left knee replacement November 01, 2016 Rehabilitation Precautions/Restrictions: Precautions/Restrictions Precautions: Tachycardia, diabetes, R knee problems, DDD in lumbar spine Restrictions: None Referring Diagnosis: S/P partial knee replacement SUBJECTIVE Patient Report: Pt was ran late to appt 14 minutes by the time he came back to work out He continued to c/o knee pain, even though we backed off ex's last visit. Pain: Pain Assessment Pain Score 1: 2 Pain Location: L knee Pain Interventions: Therapy to tolerance, See interventions OBJECTIVE General Observation/Objective Findings: Did stepper versus bike today due to pain last visit Limited time, didn't measure today (only 30 minutes, pt late) Interventions: Interventions performed as follows: Interventions performed on this visit:: Yes Therapeutic Exercises: See Flow sheet. Therapeutic ex to increase LE ROM, strength, flexibility, andfunctional mobility. Other: CP to left knee x 8 min post ex in long sitting to decrease pain, inflammation, and swelling. I educated the patient to quit or modify any ex we are doing Cues for reduction in leg press weight for example. Educated to quit wallsquats if in pain Pt stated he would ice at home Education: as described in interventions Education provided: Verbal and Demonstration Level of understanding: Needs review ASSESSMENT Therapy Diagnosis: 1. Arthritis of knee 2. Status post left partial knee replacement 3. Decreased range of motion of left knee 4. Gait abnormality 5. Weakness of both lower extremities Response to Visit/Summary: Pt is a 61 year old s/p partial L knee replacement. We backed off resistance and sets on the leg press again today. I continue to educate icing, elevating, not doing too much at home. We were only able to get through 2/3 of his ex's as he came late about 15 minutes. Pt is benefiting from skilled PT for deficits in ROM, strength, balance and gait. Skilled Intervention needed: Verbal cues, Tactile cues, Education and Tx Program Pain Reassessment: Pain Rating 3/10 Progress Towards Goals: Appropriate Goal 1: Pt will be independent with HEP for continued gains at PT discharge. Goal 1 Comments/Progress: Progressing Goal 2: Pt will report pain of less than or equal to 2/10 with activity in L knee. Goal 2 Comments/Progress: Not met Goal 3: Pt will demonstrate L knee AROM within functional limits to allow for improved ability to perform transfers. Goal 3 Comments/Progress: Progressing Goal 4: Pt will demonstrate L LE strength of 4/5 or greater to allow for improved ability to ascend/descend stairs. Goal 4 Comments/Progress: Not met PLAN Progression needed: Ex's for strength, ROM, [...] today Total Treatment Time (Timed & Untimed): 31 (EX 30) Total Time in Timed Codes: 30 The patient has been instructed to contact our clinic if any questions or problems should arise. Electronically signed by: Bassam Rodríguez, PT 12/22/2016 12:29 PM Electronically signed by: Bassam Rodríguez, PT 12/22/16 1229 documented in this encounter Plan of Treatment Not on filedocumented as of this encounter Visit Diagnoses Diagnosis Arthritis of knee - Primary Unspecified arthropathy, lower leg Status post left partial knee replacemen t Decreased range of motion of left knee Gait abnormality Abnormality of gait Weakness of both lower extremities documented in this encounter Care Teams Jewelry Drill Operator Relationship Specialty Start Date End Date Chetna Loredo PCP - General Family Medicine 05/19/16 04/13/18 documented as of this encounter
--- OUTSIDE RECORDS SUMMARY | 2021-11-30 11:51 | XMS_ITS | Encounter Summary ---
:1955 Author Organization [facility] [place] [address] Care Team Providers Name Role Phone Chetna Loredo Primary Care Provider Unavailable Encounter Details Date Type Department Care Team Description 01/05/2017 Hospital Encounter Adult & Pediatric Destini Handley Physical Therapy - [facility] [address] [place] [id number] [phone] Social History Tobacco Use Types Packs/Day Years [...] Notes Therapy Visit - Daily Note - Destini Handley, [employer] - 01/05/2017 1:57 PM EDT Physical Therapy Daily Note Payor: [facility] MANAGED CARE / Plan: [facility] BLUE OPTIONS PPO / Product Type: PPO / PT Visit Count: 20 Referring Diagnosis: Arthritis of knee; S/p partial left knee replacement November 01, 2016 Rehabilitation Precautions/Restrictions: Precautions/Restrictions Precautions: Tachycardia, diabetes, R knee problems, DDD in lumbar spine Restrictions: None Referring Diagnosis: S/P partial knee replacement SUBJECTIVE Patient Report: I've been sore since Monday evening. I think we overdid it Monday. Pain: Pain Assessment Reports: Numerical Pain Score Pain Score 1: 5 Pain Location: L and R knee Pain Interventions: Therapy to tolerance, See interventions OBJECTIVE General Observation/Objective Findings: Pt ambulates into clinic with antalgic gait with no AD, in NAD. Pt was late to appointment today. Interventions: Interventions performed as follows: Interventions performed on this visit:: Yes Therapeutic Exercises: See Flow sheet. Therapeutic ex to increase LE ROM, strength, flexibility, andfunctional mobility. Other: Ice to L knee in supine [...] partial knee replacement Response to Visit/Summary: 61 year old male returns for follow up visit for L partial knee replacement. Pt c/o increase pain/soreness citing increased activity on Monday. Pt specifically pointed at leg press and thought that caused his increased soreness. I let patient dictate resistance levels today during treatment. He tolerated 3# weights during standing ther ex. Pt confirms doing his HEP. Pt is motivated and continues to require skilled PT services to increase strength, ROM, and activity tolerance and decrease pain to improve functional mobility. Skilled Intervention needed: Verbal cues and Tactile cues Pain Reassessment: Pain Rating 2/10 L knee. 3/10 R knee Progress Towards Goals: Pt is continuing to work towards goals Time frame to achieve goal:: 12 [...] Lysholm score to 80/100. PLAN Progression needed: Continue to progress ther ex as appropriate Treatment Frequency, Duration, and Interventions: Plan Treatment Frequency and duration : 1-2 times per week for 12 weeks (PT POC ending 01/18/17) Recommend PT procedures: Gait Training, Electrical Stimulation, Hot/Cold pack, Manual Therapy, Neuromuscular Re-education, Therapeutic Activity, Therapeutic Exercise Recommended Consults: None currently Development of Plan of Care: No change in POC today Total Treatment Time (Timed & Untimed): 38 mins Total Time in Timed Codes: 30 (TE x 2) The patient has been instructed to contact our clinic if any questions or problems should arise. Electronically signed by: Destini Handley PTA 01/05/2017 1:58 PM Electronically signed by: Destini Handley PTA 01/05/17 1509 documented in this encounter Plan of Treatment Not on filedocumented as of this encounter Visit Diagnoses Diagnosis Weakness of both lower extremities - Velma andres Gait abnormality Abnormality of gait Decreased range of motion of left knee Status post left partial knee replacemen t documented in this encounter Care Teams Furnace Installer Relationship Specialty Start Date End Date Chetna Loredo PCP - General Family Medicine 05/19/16 04/13/18 documented as of this encounter
--- OUTSIDE RECORDS SUMMARY | 2021-11-30 11:51 | XMS_ITS | Encounter Summary ---
:1955 Author Organization [facility] [place] [address] Care Team Providers Name Role Phone Chetna Loredo Primary Care Provider Unavailable Reason for Visit Reason Onset Date Comments ami/ questions 11/30/2016 Encounter Details Date Type Department Care Team Description 11/30/2016 Telephone Orthopaedics - Miguelito Ash MD hubbard/ questions [facility] [address] [phone] [place] [address] (Wo rk) Social History Tobacco Use Types [...] Telephone Encounter - Kate Og RN - 11/30/2016 3:56 PM EDT Patient is s/p left unicompartmental replacement with YOUSIF and open medial patellar facetectomy 11-01-[address] Manuel. Phone call to patient confirming 2 patient identifiers. Discussed he should not submerge incision in still water such as bath or pool until at least 6 weeks post-op, discussed incision should be completely healed. Discussed we recommend that he take Aspirin 325 mg twice per day until he is 6 weeks post-op. Patient states initially he experienced diarrhea after starting Aspirin but this has since resolved. Denies any GI symptoms at present. Denies dark or bloody stools. Patient is taking Aspirin with food with morning dose. Recommended that patient take evening dose with food. Patient states appreciation for call and reports no other questions/concerns at this time. Instructed toreturn call to the office with any questions/concerns or change in symptoms. Patient appreciative offollow-up call. Telephone Encounter - Amelia Escobedo - 11/30/2016 3:08 PM EDT Patient, Dario, is calling. He is s/p left knee YOUSIF 11-01-16 / Patient would like to know when he can start swimming in pool. Also patient should like to know when he would stop taking the 2 / 325mg aspirins. They are starting to hurt his stomach. Please call patient back. documented in this encounter Plan of Treatment Not on filedocumented as of this encounter Visit Diagnoses Not on filedocumented in this encounter Care Teams Computer Publisher Relationship Specialty Start Date End Date Chetna Loredo PCP - General Family Medicine 05/19/16 04/13/18 documented as of this encounter
--- OUTSIDE RECORDS SUMMARY | 2021-11-30 11:51 | XMS_ITS | Encounter Summary ---
:1955 Author Organization [facility] [place] [address] Care Team Providers Name Role Phone Chetna Loredo Primary Care Provider Unavailable Reason for Referral MRI/CT/PET Scan (Routine) - Closed Specialty Diagnoses / Procedures Referred By Contact Refer red To Contact Radiology Diagnoses Spondylosis of lumbar region without myelopathy or radiculopathy Chetan Whitaker [id number] 01 Mri Imaging Procedures MR SPINE LUMBAR WO CONTRAST EMAIL SPECIALIST 329 [facility] [address] [place] [address] [place] [address] Referral ID Status Reason Start Date Expiration Date Visits Requ ested Visits Authorized [id number] Closed 02/14/2017 04/14/2017 1 1 Reason for Visit MRI/CT/PET Scan (Routine) - Closed Specialty Diagnoses / Procedures Referred By Contact Refer red To Contact Radiology Diagnoses Spondylosis of lumbar region without myelopathy or radiculopathy Chetan Whitaker, Dmcp2 01 Mri Imaging Procedures MR SPINE LUMBAR WO CONTRAST EMAIL SPECIALIST 329 [facility] [address] [place] [address] [place] [address] Referral ID Status Reason Start Date Expiration Date Visits Requ ested Visits Authorized [id number] Closed 02/14/2017 04/14/2017 1 1 Encounter Details Date Type Department Care Team Description 02/22/2017 Hospital Encounter MRI Imaging - Chetan [place] [address] [place] [address] [phone] [place] [phone] [place] [address] (Wo rk) Social History [...] Comme nts MR SPINE LUMBAR WO Routine 02/22/2017 2:44 PM Spondylosis of l umbar Results for this CONTRAST EST region without procedure are in myelopathy or the results radiculopathy section. documented in this encounter Results MR SPINE LUMBAR WO CONTRAST (02/22/2017 2:44 PM EST) Anatomical Region Laterality Modality L-spine Magnetic Resonance Specimen (Source) Anatomical Collection Method Collection Time Re ceived Time Location / / Volume Laterality 02/22/2017 3:02 PM EST Impressions 02/22/2017 4:28 PM EST Multilevel degenerative lumbar spondylos is with moderate right foraminal narrowing at L4-5. Mild foraminal narrowing elsewhere from L2-L3 to L5-S1. 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 LEVELS IMAGED: Lower thoracic to upper s acral region. FINDINGS: Alignment: Approximately 2 mm retrolisth esis of L3 on L4. Vertebrae: No marrow signal abnormalitie s to suggest neoplasm. Conus: In normal position without imagin g evidence for tethering. Normal signal and contour. T11-12: Sagittal images only. Disc desic cation. No foraminal narrowing or canal stenosis. T12-L1: ??Small left eccentric disc bulg e. No foraminal narrowing or canal stenosis. L1-L2: Mild facet arthropathy. No forami nal narrowing or canal stenosis. L2-L3: Diffuse disc bulge. Mild facet ar thropathy. Mild bilateral foraminal narrowing. No canal stenosis. L3-L4: Diffuse disc bulge. Mild facet ar thropathy. Mild bilateral foraminal narrowing. No canal stenosis. L4-L5: Diffuse disc bulge. Moderate face t arthropathy. Moderate right and mild left foraminal narrowing. No canal stenosis. L5-S1: Diffuse disc bulge. Moderate face t arthropathy. Mild bilateral foraminal narrowing. No canal stenosis. Upper sacrum/ilium: No focal abnormality . 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 LEVELS IMAGED: Lower thoracic to upper s acral region. FINDINGS: Alignment: Approximately 2 mm retrolisth esis of L3 on L4. Vertebrae: No marrow signal abnormalitie s to suggest neoplasm. Conus: In normal position without imagin g evidence for tethering. Normal signal and contour. T11-12: Sagittal images only. Disc desic cation. No foraminal narrowing or canal stenosis. T12-L1: Small left eccentric disc bulge. No foraminal narrowing or canal stenosis. L1-L2: Mild facet arthropathy. No forami nal narrowing or canal stenosis. L2-L3: Diffuse disc bulge. Mild facet ar thropathy. Mild bilateral foraminal narrowing. No canal stenosis. L3-L4: Diffuse disc bulge. Mild facet ar thropathy. Mild bilateral foraminal narrowing. No canal stenosis. L4-L5: Diffuse disc bulge. Moderate face t arthropathy. Moderate right and mild left foraminal narrowing. No canal stenosis. L5-S1: Diffuse disc bulge. Moderate face t arthropathy. Mild bilateral foraminal narrowing. No canal stenosis. Upper sacrum/ilium: No focal abnormality . CONCLUSION: Multilevel degenerative lumbar spondylos is with moderate right foraminal narrowing at L4-5. Mild foraminal narrowing elsewhere from L2-L3 to L5-S1. Chetan Whitaker EMAIL SPECIALIST IMG MRI ORDERABLES documented in this encounter Visit Diagnoses Diagnosis Spondylosis of lumbar region without mye lopathy or radiculopathy documented in this encounter Care Teams Pastry Assistant Relationship Specialty Start Date End Date Chetna Loredo PCP - General Family Medicine 05/19/16 04/13/18 documented as of this encounter
--- OUTSIDE RECORDS SUMMARY | 2021-11-30 11:51 | XMS_ITS | Encounter Summary ---
:1955 Author Organization [facility] [place] [address] Care Team Providers Name Role Phone Chetna Loredo Primary Care Provider Unavailable Reason for Visit Reason Comments Follow-up Patient returns for a 2 MO F /U for S11/01/16 for left unicompartmental knee replacement. Encounter Details Date Type Department Care Team Description 02/22/2017 Office Visit Orthopaedics - Chetan Olmsteda, BIOMEDICAL ELECTRONICS TECHNICIAN [address] [place] [address] Primary osteoarthritis of both knees (Pr imary Dx); [address] [address] [address] Nasir Vega PA-C [address] [place] [id number] Status post left partial knee replacemen [address] [address] Social History Tobacco Use Types Packs/Day Years [...] Sign Reading Time Taken Comments Blood Pressure 123/72 02/22/2017 1:14 PM EST Pulse 57 02/22/2017 1:14 PM EST Temperature 37 ??C (98.6 ??F) 02/22/2017 1:14 PM EST Respiratory Rate - - Oxygen Saturation - - Inhaled Oxygen Concentration - - Weight 117.5 kg (259 lb) 02/22/2017 1:14 PM EST Height 180.3 cm (5' 11) 02/22/2017 1:14 PM EST Body Mass Index 36.12 02/22/2017 1:14 PM EST documented in this encounter Functional [...] encounter Progress Notes Nasir Vega PA-C - 02/22/2017 1:20 PM EST Mr. Dario Mckeon [id number] 1955 (age: 61 y.o.) Return Visit Referred by: Self Referral No address on file Chief Complaint: Chief Complaint Patient presents with ??? Follow-up Patient returns for a 2 MO F/U for S11/01/16 for left unicompartmental knee replacement. History of Present Illness: Follow up left knee YOUSIF -ongoing stiffness/pain No new injuries No swelling No redness nowarmth DATE OF SURGERY: ??11/01/2016. ?? SURGEON: ??Miguelito Manuel M.D. ?? ASSISTANTS: 1. ??Ant Calvert MD ?? PREOPERATIVE DIAGNOSIS: ??Left knee arthritis. ?? POSTOPERATIVE DIAGNOSIS: ??Same. ?? PROCEDURES PERFORMED: 1. ??Unicompartmental replacement with YOUSIF [place] implants size 6 on the femur, size 6 on the tibia and 8 mm polyethylene using computer guidance and robotic assistance. 2. ??Medial patellar facetectomy open. ?? Past Medical History: Diagnosis Date ??? Diabetes [...] The patient has normal right knee ROM. Muscle Strength The patient has normal right knee strength. Other Sensation: normal Pulse: present Swelling: none Left Knee Exam Left knee exam is normal. Range of Motion The patient has normal left knee ROM. Muscle Strength The patient has normal left knee strength. Other Sensation: normal Pulse: present Swelling: none Comments: Well healedsurgical scar Vitals: Vitals: 02/22/17 1314 BP: 123/72 Pulse: 57 Temp: 98.6 ??F (37 ??C) PainSc: 6-Six (moderate) Comment: Left Height: 1.803 m (5' 11) Weight: 117.5 kg (259 lb) BMI (Calculated): 36.2 Special Investigations- Review of Diagnostic Tests: Radiologic Studies: I have personally reviewed plain x-ray images from [facility].X- RAY LEFT KNEE (3 VIEWS), 02/22/2017 1:48 PM INDICATION: follow up YOUSIF \ \ M17.0 Primary osteoarthritis of both knees \ Z96.652 Status post leftpartial knee replacement COMPARISON: Multiple knee radiographs, most recent from 12/16/2016. MRI from 08/08/2016. CONCLUSION: ?? 1. Medial unicompartmental arthroplasty without periprosthetic fracture or osteolysis. 2. No acute fracture or malalignment. 3. Small joint effusion with small amount of intra-articular debris. 4. Mild patellofemoral and lateral compartment degenerative changes. Lab Studies: I have not reviewed any lab test results for this patient. Assessment: 1. Primary osteoarthritis of both knees 2. Status post left partial knee replacement Plan: 1. Continue conservative management - follow up 2 - 3 months Follow up: No Follow-up on file. No orders of the defined types were placed in this encounter. Electronically signed by: Nasir Vega PA-C 02/22/2017 1:33 PM Electronically signed by: Nasir Vega PA-C 02/22/17 1515 Electronically signed by: Nasir Vega PA-C 03/23/17 1421 documented in this encounter Plan of Treatment [...] follow up YOUSIF \ \ M17.0 Velma andres osteoarthritis of both knees \ Z96.652 Status post left partial knee replacement COMPARISON: Multiple knee radiographs, m ost recent from 12/16/2016. MRI from 08/08/2016. Procedure Note Raj Rivas MD - 02/22/2017 X-RAY LEFT KNEE (3 VIEWS), 02/22/2017 1:4 8 PM INDICATION: follow up YOUSIF \ \ M17.0 Velma andres osteoarthritis of both knees \ Z96.652 Status post left partial knee replacement COMPARISON: Multiple knee radiographs, m ost recent from 12/16/2016. MRI from 08/08/2016. CONCLUSION: 1. Medial unicompartmental arthroplasty without periprosthetic fracture or osteolysis. 2. No acute fracture or malalignment. 3. Small joint effusion with small amoun t of intra-articular debris. 4. Mild patellofemoral and lateral julius rtment degenerative changes. Nasir Vega PA-C [facility] documented in this encounter Visit Diagnoses Diagnosis Primary osteoarthritis of both knees - P rimary Status post left partial knee replacemen t Primary osteoarthritis of both knees Status post left partial knee replacemen t documented in this encounter Care Teams Online Trader Relationship Specialty Start Date End Date Chetna Loredo PCP - General Family Medicine 05/19/16 04/13/18 documented as of this encounter
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
--- OUTSIDE RECORDS SUMMARY | 2021-11-30 11:51 | XMS_ITS | Encounter Summary ---
:1955 Author Organization [facility] [place] [address] Care Team Providers Name Role Phone Chetna Loredo Primary Care Provider Unavailable Reason for Referral MRI/CT/PET Scan (Routine) - Closed Specialty Diagnoses / Procedures Referred By Contact Refer red To Contact Radiology Diagnoses Spondylosis of lumbar region without myelopathy or radiculopathy Chetan Whitaker Dmcp2 01 Mri Imaging Procedures MR SPINE LUMBAR WO CONTRAST ASSISTANT NEWS DIRECTOR [address] [facility] [address] [place] [address] [place] [address] Referral ID Status Reason Start Date Expiration Date Visits Requ ested Visits Authorized [id number] Closed 02/14/2017 04/14/2017 1 1 Reason for Visit Reason Onset Date Comments veronicaov//medical advice 02/03/2017 Encounter Details Date Type Department Care Team Description 02/03/2017 Telephone Spine Center - Chetan Whitaker//me jovany Vinson NP advice [address] [place] [address] [place] [place] [address] [address] [address] [phone] (Wo rk) Social History Tobacco Use Types [...] this encounter Miscellaneous Notes Telephone Encounter - Liss Lamb RN - 02/10/2017 12:02 PM EDT Spoke with patient and let him know the our prior authorization team works on that, and I do not have access to their queue. I explained that once the MRI order has been scheduled (given and appt) thenit goes to a queue to get the prior - auth from insurance. I told him that I believe the prior auths usually are processed approximately 2 - 4 days prior to the appointment. I recommended that he call [facility] Billing and financial dept [phone] a couple of days ahead of the MRI - and hopefully they will be able to tell him if the MRI has been approved by his insurance. I also gave him the phone number for financial assistance at [facility] [phone] - if his insurance does not approve the MRI. Patient voiced understanding and thanked me for all of the information. Electronically signed by: Liss Lamb RN 02/10/17 1244 Telephone Encounter - Chanel Lee RN - 02/09/2017 10:29 AM EDT Patient left VM message stating that he scheduled his MRI (MRI scheduled for 02/22/17). Patient states he would like to speak with Jame Whitaker NP's nurse about authorization for MRI. Electronically signed by: Chanel Lee RN 02/09/17 1043 Telephone Encounter - Liss Lamb RN - 02/08/2017 2:44 PM EDT Left patient message that he should call back after he has the MRI done on 02/22/17, and I will ask Max if he can call patient with results, or if patient needs to come in do discuss MRI results and POC. (Authorization to leave message verified.) Electronically signed by: Liss Lamb RN 02/08/17 1459 Telephone Encounter - Liss Lamb RN - 02/08/2017 2:41 PM EDT MRI has been scheduled for 02/22/17. Electronically signed by: Liss Lamb RN 02/08/17 1444 Telephone Encounter - Chetan Whitaker NP - 02/06/2017 1:32 PM EDT Would recommend MRI of lumbar spine if PT not helping Electronically signed by: Chetan Whitaker NP 02/06/17 1335 Telephone Encounter - Emma Benito - 02/03/2017 4:08 PM EDT Patient calling in and stating physical therapy is not helping and is making back pain worse. Was placed in traction during therapy yesterday and can barely move today. Would like advice from [facility]. Please contact and advise. Thank you. documented in this encounter Plan of Treatment [...] elsewhere from L2-L3 to L5-S1. Chetan Whitaker ASSISTANT NEWS DIRECTOR IMG MRI ORDERABLES documented in this encounter Visit Diagnoses Diagnosis Spondylosis of lumbar region without mye lopathy or radiculopathy - Primary Spondylosis of lumbar region without mye lopathy or radiculopathy documented in this encounter Care Teams Protective Signal Installer Helper Relationship Specialty Start Date End Date Chetna Loredo PCP - General Family Medicine 05/19/16 04/13/18 documented as of this encounter
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
--- OUTSIDE RECORDS SUMMARY | 2021-11-30 11:51 | XMS_ITS | Encounter Summary ---
:1955 Author Organization [facility] [place] [address] Care Team Providers Name Role Phone Chetna Loredo Primary Care Provider Unavailable Encounter Details Date Type Department Care Team Description 11/21/2016 Hospital Encounter Adult & Pediatric Chi Jackson Physical Therapy - MEGAN Beatty [facility] [phone] Social History Tobacco Use Types Packs/Day Years [...] Visit - Daily Note - Chi Jackson, APPLICATION COORDINATOR - 11/21/2016 5:49 PM EDT Physical Therapy Daily Note Payor: [facility] MANAGED CARE / Plan: [facility] BLUE OPTIONS PPO / Product Type: PPO / PT Visit Count: 7 Referring Diagnosis: Left partial knee replacement Rehabilitation Precautions/Restrictions: Precautions/Restrictions Precautions: Tachycardia, diabetes, R knee problems, DDD in lumbar spine SUBJECTIVE Patient Report: Pt states he had a bad weekend, but that he doesn't really have any pain right now. Pt reports having some soreness over the weekend and had a few instances where he was feeling dizzy again similar to the last time he passed out. Pt states his heart monitor fell off and he was told to go ahead and ship it out. Pain: Pain Assessment Reports: No/denies pain Pain Score 1: 0-No pain Pain Location: L knee Pain Interventions: Therapy to tolerance, See interventions OBJECTIVE General Observation/Objective Findings: Pt arrived to PT in NAD, with water bottle; ambulating with no AD and slight limp on L side; wearing compression hose on L LE. Interventions: Interventions performed as follows: Interventions performed [...] knee replacement. Pt responded fair to therapeutic ex today with slight increase in patellar tendon pain during mini-squats and wallslides. Pt cont to do well with therapeutic ex with increased reps and intensity and demonstrated no issues with syncope or heart today. Pt requires mod VC's to perform standing ex with emphasis on keeping knees from passing toes. Pt is motivated to improve and is still an appropriate candidate for cont skilled PT to increase ROM, L LE strength and endurance, tolerance to activity, flexibility, improve functional mobility/gait, decrease pain/tightness and to return pt to PLOF. Skilled Intervention needed: Verbal cues and Protocol Progression Pain Reassessment: Pain Rating 0/10 Progress Towards Goals: Pt is demonstrating good technique and independence with current HEP. Time frame to achieve goal:: 12 weeks [...] arise. Electronically signed by: Chi Jackson PTA 11/21/2016 5:49 PM Electronically signed by: Chi Jackson PTA 11/21/16 1802 documented in this encounter Plan of Treatment Not on filedocumented as of this encounter Visit Diagnoses Diagnosis Primary osteoarthritis of both knees - P rimary Arthritis of knee Unspecified arthropathy, lower leg Status post left partial knee replacemen t Decreased range of motion of left knee Weakness of both lower extremities Gait abnormality Abnormality of gait documented in this encounter Care Teams Windows Server Support Technician Relationship Specialty Start Date End Date Chetna Loredo PCP - General Family Medicine 05/19/16 04/13/18 documented as of this encounter
--- OUTSIDE RECORDS SUMMARY | 2021-11-30 11:51 | XMS_ITS | Encounter Summary ---
:1955 Author Organization [facility] [place] [address] Care Team Providers Name Role Phone Chetna Loredo Primary Care Provider Unavailable Encounter Details Date Type Department Care Team Description 02/02/2017 Hospital Encounter Adult & Pediatric Ariel Rodríguez Physical Therapy - [address] [place] [address] [facility] [place] [address] Social History Tobacco Use Types Packs/Day Years [...] Daily Note - Bassam Rodríguez, PT - 02/02/2017 12:48 PM EDT Physical Therapy Daily Note Payor: [facility] MANAGED CARE / Plan: [facility] BLUE OPTIONS PPO / Product Type: PPO / PT Visit Count: 5 (g5) Referring Diagnosis: Arthritis of knee; S/p partial left knee replacement November 01, 2016 Rehabilitation Precautions/Restrictions: Precautions/Restrictions Precautions: None Restrictions: None Referring Diagnosis: DDD (degenerative disc disease), lumbar; Spondylosis of lumbar region without myelopathy or radiculopathy SUBJECTIVE Patient Report: Stated he felt good leaving, but was sore afterwards. Pain: Pain Assessment Pain Location: LBP 4-4.5/10; 0/10 LEs; intermittent B knee pain Pain Interventions: Therapy to tolerance, See interventions OBJECTIVE General Observation/Objective Findings: No changes Interventions: Interventions performed as follows: Interventions performed on this visit:: Yes Mechanical Traction: Supine: started at 80-40, increased to 80-40 per his request, 30-10 hold relax;20 minutes PRONE traction per above Education: as described in [...] old s/p partial L knee replacement. Pt stated that he felt good coming off the traction last visit, but then was sore last week. We assessed prone traction and initially he stated he was worse. We can re-assess how he is next visit. Consider return to supine if he thinks this was more beneficial. He felt there was more pull in supine (at same wt) I fear he lacks the motivation to get better with statements in the past that PT didn't help me in the past. Pt is benefiting from skilled PT for deficits in ROM, strength, balance and gait. Skilled Intervention needed: Verbal cues, Tactile cues, Education and Tx Program Pain Reassessment: Pain Rating Worse Progress Towards Goals: none PLAN Progression needed: Decide on supping or prone lumbar traction and continue for 1-2 more times at least to decide if beneficial. Posture education Treatment Frequency, Duration, and Interventions: Plan Treatment Frequency and duration : 1-2 times a week for up to 12 weeks (04-10-2017 lumbar) Recommend PT procedures: Neuromuscular Re-education, Manual Therapy, Therapeutic Activity, Therapeutic Exercise Recommended Consults: None currently Development of Plan of Care: No change in POC today Total Treatment Time (Timed & Untimed): 40 (EX 5; traction) Total Time in Timed Codes: 5 The patient has been instructed to contact our clinic if any questions or problems should arise. Electronically signed by: Bassam Rodríguez, PT 02/02/2017 12:49 PM Electronically signed by: Bassam Rodríguez, PT 02/02/17 1441 documented in this encounter Plan of Treatment [...] site documented in this encounter Care Teams Rate Examiner Relationship Specialty Start Date End Date Chetna Loredo PCP - General Family Medicine 05/19/16 04/13/18 documented as of this encounter
--- OUTSIDE RECORDS SUMMARY | 2021-11-30 11:51 | XMS_ITS | Encounter Summary ---
:1955 Author Organization [facility] [place] [address] Care Team Providers Name Role Phone Chetna Loredo Primary Care Provider Unavailable Encounter Details Date Type Department Care Team Description 12/29/2016 Hospital Encounter Adult & Pediatric Chi Jackson Physical Therapy - MEGAN Beatty [facility] [place] [address] [phone] Social History Tobacco Use Types Packs/Day Years [...] Visit - Daily Note - Chi Jackson, FLAT LOCK MACHINE OPERATOR - 12/29/2016 12:42 PM EDT Physical Therapy Daily Note Payor: [facility] MANAGED CARE / Plan: [facility] BLUE OPTIONS PPO / Product Type: PPO / PT Visit Count: 18 Referring Diagnosis: Left partial knee replacement Rehabilitation Precautions/Restrictions: Precautions/Restrictions Precautions: Tachycardia, diabetes, R knee problems, DDD in lumbar spine Restrictions: None Referring Diagnosis: S/P partial knee replacement SUBJECTIVE Patient Report: Pt states his knee is really stiff today and maybe some biking will help. Pt reportshe had some entire L calf pain this morning when he woke, but subsided after he started walking around. Pain: Pain Assessment Reports: Bhardwaj Kraus Faces Bhardwaj-Kraus FACES Pain Rating: No hurt Pain Location: L knee Pain Interventions: Therapy to tolerance, See interventions OBJECTIVE General Observation/Objective Findings: Pt arrived to PT in NAD, ambulating with no AD and slight limp on L side. Interventions: Interventions performed as follows: Interventions performed on this visit:: Yes Therapeutic Exercises: See Flow sheet. Therapeutic ex to increase LE ROM, strength, flexibility, andfunctional mobility. Other: CP deferred to home due to needing to go to an appt. Modalities Skin Integrity Assessment: Non Applicable Education: [...] for s/p left partial knee replacement. Pt completed therapeutic ex with improved tolerance for standing activity and no increasedpain. He also has progressed to SLS on L LE to 40 sec hold. Pt is progressing well and should be able to include more functional standing ex next session. Pt cont to be motivated and would benefit fromcont skilled PT to decrease pain, increase ROM, strength, flexibility, functional mobility/gait and to return pt to PLOF. Skilled Intervention needed: Verbal cues and Protocol Progression Pain Reassessment: Pain Rating: less stiff and no pain; no pain number given. Progress Towards Goals: Pt progressing with HEP with self-addition of stair step ups at home. Time frame to achieve goal:: 12 weeks [...] arise. Electronically signed by: Chi Jackson PTA 12/29/2016 5:30 PM Electronically signed by: Chi Jackson PTA 12/29/16 1730 documented in this encounter Plan of Treatment Not on filedocumented as of this encounter Visit Diagnoses Diagnosis Arthritis of knee - Primary Unspecified arthropathy, lower leg Status post left partial knee replacemen t Decreased range of motion of left knee Gait abnormality Abnormality of gait Weakness of both lower extremities Primary osteoarthritis of both knees documented in this encounter Care Teams Reagent Tender Relationship Specialty Start Date End Date Chetna Loredo PCP - General Family Medicine 05/19/16 04/13/18 documented as of this encounter
--- OUTSIDE RECORDS SUMMARY | 2021-11-30 11:51 | XMS_ITS | Encounter Summary ---
:1955 Author Organization [facility] [place] [address] Care Team Providers Name Role Phone Chetna Loredo Primary Care Provider Unavailable Encounter Details Date Type Department Care Team Description 12/20/2016 Hospital Encounter Adult & Pediatric Ariel Rodríguez Physical Therapy - [address] [place] [address] [facility] [place] [address] Social History Tobacco Use Types Packs/Day Years [...] Daily Note - Bassam Rodríguez, PT - 12/20/2016 10:33 AM EDT Physical Therapy Daily Note Payor: [facility] MANAGED CARE / Plan: [facility] BLUE OPTIONS PPO / Product Type: PPO / PT Visit Count: 15 Referring Diagnosis: Arthritis of knee; S/p partial left knee replacement November 01, 2016 Rehabilitation Precautions/Restrictions: Precautions/Restrictions Precautions: Tachycardia, diabetes, R knee problems, DDD in lumbar spine Restrictions: None Referring Diagnosis: S/P partial knee replacement SUBJECTIVE Patient Report: Pt was running late today. Stated walking in wood, clearing out for hunting again. Stepped in a hole with increased pain last night, but states it has eased off. Pain: Pain Assessment Pain Location: 07/25 L knee this morning Pain Interventions: Therapy to tolerance, See interventions Other Pain Comments: Stepped into a hole last night, 10/24 last night OBJECTIVE General Observation/Objective Findings: Had troubles getting started on bike due to ROM deficits Fairly active, getting ready for Interventions: Interventions performed as follows: Interventions performed on this visit:: Yes Therapeutic Exercises: See Flow sheet. Therapeutic ex to increase LE ROM, strength, flexibility, andfunctional mobility. Cues for leaving the foot up on the step the entire time for step ups Cues for toes pointing forward or in with hip abduction ambulation with TB Iced and elevated today due to more pain than last visit (injury to self recently in yard) Education: as described in interventions Education provided: [...] L knee replacement. We backed off resistance on the leg press today, as he had stated the weights last time with me weretoo much. I educated only to do what feels comfortable to do and let me know if too much every. He understood. Edema/inflammation continues to be an issue, as the knee hurts and is stiff. He states his chief complaints is stiffness at this point. I educated to ice and elevate at home, and we enforced this todayby doing it at the end of our session. I also educated to use compression stockings for edema control, as well as it would help pain and ROM. Pt is benefiting from skilled PT for deficits in ROM, strength, balance and gait. Skilled Intervention needed: Verbal cues, Tactile cues, Education and Tx Program Pain Reassessment: Pain Rating 3/10 Progress Towards Goals: Appropriate PLAN Progression needed: [...] Treatment Time (Timed & Untimed): 45 (EX 35, ice 8) Total Time in Timed Codes: 45 The patient has been instructed to contact our clinic if any questions or problems should arise. Electronically signed by: Bassam Rodríguez, PT 12/20/2016 10:34 AM Electronically signed by: Bassam Rodríguez, PT 12/20/16 1253 documented in this encounter Plan of Treatment Not on filedocumented as of this encounter Visit Diagnoses Diagnosis Arthritis of knee - Primary Unspecified arthropathy, lower leg Status post left partial knee replacemen t Decreased range of motion of left knee Gait abnormality Abnormality of gait Weakness of both lower extremities documented in this encounter Care Teams Bond Writer Relationship Specialty Start Date End Date Chetna Loredo PCP - General Family Medicine 05/19/16 04/13/18 documented as of this encounter
--- OUTSIDE RECORDS SUMMARY | 2021-11-30 11:51 | XMS_ITS | Encounter Summary ---
:1955 Author Organization [facility] Ba ptist Address [place] [id number] Care Team Providers Name Role Phone Chetna Loredo Primary Care Provider Unavailable Reason for Visit Reason Comments Left Knee Problem Encounter Details Date Type Department Care Team Description 11/30/2016 Hospital Encounter Adult & Pediatric Tera Wilson , Physical Therapy - PT [address] [id number] Social History Tobacco Use [...] Daily Note - Tera Wilson, PT - 11/30/2016 11:05 AM EDT Physical Therapy Daily Note Payor: [facility] MANAGED CARE / Plan: [facility] BLUE OPTIONS PPO / Product Type: PPO / PT Visit Count: 10 Referring Diagnosis: Left partial knee replacement Rehabilitation Precautions/Restrictions: Precautions/Restrictions Precautions: Tachycardia, diabetes, R knee problems, DDD in lumbar spine SUBJECTIVE Patient Report: Pt states he is doing well. Having some aching in the L knee but this is normal for the mornings. Still having trouble with going down stairs. Pain: Pain Assessment Reports: Numerical Pain [...] increase LE ROM, strength, flexibility, andfunctional mobility. Manual Therapy: Kinesiotape to L knee, horseshoe surrounding patella with a horizontal I piece with L-medial pull 50% Modalities Skin Integrity Assessment: Non Applicable Education: [...] s/p left partial knee replacement. He is continuing to respond well to PT services with some burning to the L knee cap with controlled flexion/extension activities. We used kinesiotape today to help with some support and will check effectiveness of this next visit. Will continue to benefit from skilled PT services in order tomaximize pain reduction and functional mobility. Skilled Intervention needed: Verbal cues and Protocol [...] Total Time in Timed Codes: 40 min (3 ex) 5 min ice post The patient has been instructed to contact our clinic if any questions or problems should arise. Electronically signed by: Tera Wilson, PT 11/30/2016 11:48 AM Electronically signed by: Tera Wilson, PT 11/30/16 1149 documented in this encounter Plan of Treatment Not on filedocumented as of this encounter Visit Diagnoses Diagnosis Primary osteoarthritis of both knees - P rimary Arthritis of knee Unspecified arthropathy, lower leg Status post left partial knee replacemen t documented in this encounter Care Teams Medical Staff Credentialing Coordinator Relationship Specialty Start Date End Date Chetna Loredo PCP - General Family Medicine 05/19/16 04/13/18 documented as of this encounter
--- OUTSIDE RECORDS SUMMARY | 2021-11-30 11:51 | XMS_ITS | Encounter Summary ---
:1955 Author Organization [facility] [place] [address] Care Team Providers Name Role Phone Chetna Loredo Primary Care Provider Unavailable Encounter Details Date Type Department Care Team Description 02/13/2017 Hospital Encounter Adult & Pediatric Ariel Rodríguez Physical Therapy - [address] [place] [address] [facility] [place] [address] Social History Tobacco Use Types Packs/Day Years [...] documented as of this encounter Miscellaneous Notes Addendum Note - Bassam Rodríguez, PT - 02/13/2017 6:39 PM EDTEncounter addended by: Bassam Rodríguez PT on: 02/13/2017 6:39 PM
Actions taken: ChargeCapture section accepted Therapy Visit - Daily Note - Bassam Rodríguez, PT - 02/13/2017 1:06 PM EDT Physical Therapy Daily Note Payor: [employer] / Plan: [employer] PPO / Product Type: PPO / PT Visit Count: 7 Referring Diagnosis: Arthritis of knee; S/p partial left knee replacement November 01, 2016 Rehabilitation Precautions/Restrictions: Precautions/Restrictions Precautions: None Restrictions: None Referring Diagnosis: DDD (degenerative disc disease), lumbar; Spondylosis of lumbar region without myelopathy or radiculopathy SUBJECTIVE Patient Report: Pt felt the prone traction did help. Pain: Pain Assessment Pain Location: LBP 4/10; L knee 5/10 Pain Interventions: Therapy to tolerance, See interventions Other Pain Comments: Knee is making me limp when I walk; My back averages a 4/10 or worse all thetime. It was worse after the leaf raking I did last week, OBJECTIVE General Observation/Objective Findings: Antalgic gait on TKR knee Interventions: Interventions performed as follows: Interventions performed on this visit:: Yes Neuromuscular Re-education: Posture education, lordosis maintained, lumbar roll education; discussedflexion activities (leaves) Mechanical Traction: Prone: 80/40lbs,30 sec on, 10 sec hold, 20 minutes, to increase intervertebral space to decrease stress on the spine, decreasing low back pain and referred pain. PRONE traction per above Education: as described in interventions Education provided: Verbal and Demonstration Level of understanding: Needs review ASSESSMENT Therapy Diagnosis: 1. DDD (degenerative disc disease), lumbar 2. Chronic bilateral low back pain with right-sided sciatica 3. Spondylosis of lumbar region without myelopathy or radiculopathy 4. Joint stiffness of spine Response to Visit/Summary: Pt is a 61 year old s/p partial L knee replacement. Feels he had a 1 level pain decrease after prone traction, and got the same benefit last visit. We will continue with prone traction to assess long-term benefit. He is still doing more at home to aggravated it (flexion activities), than we can undo with therapy. Pt is benefiting from skilled PT for deficits in ROM, strength, balance and gait. Skilled Intervention needed: Verbal cues, Tactile cues, Education and Tx Program Pain Reassessment: Pain Rating Better Progress Towards Goals: Slow, limited PLAN Progression needed: Prone lumbar traction Posture education Treatment Frequency, Duration, and Interventions: Plan Treatment Frequency and duration : 1-2 times a week for up to 12 weeks (04-10-2017 lumbar) Recommend PT procedures: Neuromuscular Re-education, Manual Therapy, Therapeutic Activity, Therapeutic Exercise Recommended Consults: None currently Development of Plan of Care: No change in POC today Total Treatment Time (Timed & Untimed): 35 (NR 3; traction 20) Total Time in Timed Codes: 3 The patient has been instructed to contact our clinic if any questions or problems should arise. Electronically signed by: Bassam Rodríguez, PT 02/13/2017 2:47 PM Electronically signed by: Bassam Rodríguez, PT 02/13/17 1448 documented in this encounter Plan of Treatment Not on filedocumented as of this encounter Visit Diagnoses Diagnosis DDD (degenerative disc disease), lumbar - Primary Degeneration of lumbar or lumbosacral in tervertebral disc Chronic bilateral low back pain with rig ht-sided sciatica Spondylosis of lumbar region without mye lopathy or radiculopathy Joint stiffness of spine Stiffness of joint, not elsewhere classi fied, other specified site documented in this encounter Care Teams Reporter Anchor Relationship Specialty Start Date End Date Chetna Loredo PCP - General Family Medicine 05/19/16 04/13/18 documented as of this encounter
--- OUTSIDE RECORDS SUMMARY | 2021-11-30 11:51 | XMS_ITS | Encounter Summary ---
:1955 Author Organization [facility] [place] [address] Care Team Providers Name Role Phone Chetna Loredo Primary Care Provider Unavailable Reason for Visit Reason Comments New Patient Establish Care Loss of Consciousness 11-12-16 went to C Encounter Details Date Type Department Care Team Description 11/17/2016 Initial consult [facility] Funmilayo Eason (supraventricular tachycardia) ([facility]) (Primary Dx); [facility] Cardiology - MD Lenore Type 2 diabetes mellitus treated without insulin ([facility]); [address] Syncope, unspecified syncope type 14 [place] [phone] Social History Tobacco Use Types [...] Sign Reading Time Taken Comments Blood Pressure 112/70 11/17/2016 9:40 AM EDT Pulse 63 11/17/2016 9:40 AM EDT Temperature - - Respiratory Rate - - Oxygen Saturation 95% 11/17/2016 9:40 AM EDT Inhaled Oxygen Concentration - - Weight 113.9 kg (251 lb) 11/17/2016 9:40 AM EDT Height 180.3 cm (5' 11) 11/17/2016 9:40 AM EDT Body Mass Index 35.01 11/17/2016 9:40 AM EDT documented in this encounter Functional [...] encounter Progress Notes Funmilayo Eason MD - 11/17/2016 9:30 AM EDT New Patient Visit Referral Source: [facility] Chief Complaint: syncope HPI: Mr Mckeon is a 61 yo WM with h/o SVT who presents after syncope event. He describes a day in which hetook an extra oxycodone for post op knee pain and was dehydrated from diarrhea when he had the presyncope and syncope. He was outside with a relative when he began to get lightheaded. He sat down but still felt lightheaded. He had visual field spots. He got up to try to make it to the house but started to pass out. He was caught by relative but when he sat on porch did lose consciousness for a few seconds at a time at least 4 times. EMS was called. He was still very lightheaded when they arrived. BPwas low and HR was normal. He denies palpitations with this. Denies CP. He is active normally without CP or significant SHERMAN. He had TKA recent and has been less active. He denies edema prior to surgery. He denies orthopnea. He had palpitations with presyncope/syncope as presentation of SVT years ago but this was different. No significant palpitations since he has been on flecainide. Past Medical History: 1. SVT -- R atrial foci -- s/p AFL ablation but unsuccessful AT ablation A. Controlled on flecainide 2. DM2 3. OA s/p TKA Allergies: reviewed Prior to Admission medications Medication Sig Start Date End Date Taking? Authorizing Provider aspirin 325 MG EC tablet *ANTIPLATELET* Take 1 tablet (325 mg total) by mouth 2 times daily for 30 days. 11/01/16 12/01/16 Yes Miguelito Manuel MD atorvastatin (LIPITOR) 20 MG tablet Take 20 mg by mouth daily. Yes Historical Provider, flecainide (TAMBOCOR) 100 MG tablet Take 100 mg by mouth every 12 hours. Yes Historical Provider, metFORMIN (GLUCOPHAGE) 500 MG tablet Take 500 mg by mouth 2 times daily with meals. 08/03/16 Yes Historical Provider, metoPROLOL tartrate (LOPRESSOR) 50 MG tablet Take 50 mg by mouth 2 times daily. Yes Historical Provider, vortioxetine (TRINTELLIX) 5 mg tablet Take 5 mg by mouth daily. Yes Historical Provider, cyclobenzaprine (FLEXERIL) 10 MG tablet Take 10 mg by mouth 2 times daily. Historical Provider, DEXT 70/POLYCARBOPHIL/PEG/NACL (ARTIFICIAL TEAR SOLUTION OPHT) Place 1 drop into both eyes as needed. Historical Provider, multivitamin capsule Take 1 capsule by mouth daily. Historical Provider, oxyCODONE (ROXICODONE) 5 MG immediate release tablet Take 1-2 tablets every 4-6 hrs prn pain 11/01/16Miguelito Manuel MD Social History: distant tobacco Family History: no early CAD ROS: Constitutional, respiratory, cardiovascular, gastrointestinal, endocrine, hematologic/lymphatic, musculoskeletal, psych, and neurologic reviewed and negative except as dictated in HPI Physical Exam: General: Well appearing and in no distress BP 112/70 (Site: Left arm, Position: Sitting, BP Cuff Size: Medium) Pulse 63 Ht 1.803 m (5' 11) Wt 113.9 kg (251 lb) SpO2 95% BMI 35.01 kg/m2 HEENT: Mucous membranes moist, sclerae anicteric Neck: No JVP elevation, no carotid bruits bilaterally Resp: Clear to auscultation bilaterally Cardiac: Regular rate and rhythm, no audible murmur GI: Soft, nontender, nondistended, bowel sounds present EXT: No clubbing, cyanosis, edema Psych: Alert and oriented x3, normal affect Neuro: nonfocal Skin: No notable rashes and lesions MSK: No joint deformities or inflammation Data Reviewed: EKG in ED with sinus, normal QRS Outside records showing negative nuclear stress 04/2015 Assessment and Plan: 1. Syncope - almost certainly related to pain meds + dehydration. He is wearing zio to look for arrhythmia. 2. SVT - no symptoms recurrence. EKG adequate on flecainide. No change to meds. No h/o AFib or AFL documented so no AC at this time. 3. CV risk - he is diabetic. He is asymptomatic. Neg stress test last year. On ASA, statin, BB. Disposition: 6 mo Thanks for allowing me to participate in your patient's care. Electronically signed by: Funmilayo Eason MD 11/17/16 1227 documented in this encounter Plan of Treatment Not on filedocumented as of this encounter Visit Diagnoses Diagnosis SVT (supraventricular tachycardia) (HCC) - Primary Other specified cardiac dysrhythmias Type 2 diabetes mellitus treated without insulin (HCC) Syncope, unspecified syncope type documented in this encounter Care Teams Walking Dragline Operator Relationship Specialty Start Date End Date Chetna Loredo PCP - General Family Medicine 05/19/16 04/13/18 documented as of this encounter
--- OUTSIDE RECORDS SUMMARY | 2021-11-30 11:51 | XMS_ITS | Encounter Summary ---
:1955 Author Organization [facility] [place] [address] Care Team Providers Name Role Phone Chetna Loredo Primary Care Provider Unavailable Encounter Details Date Type Department Care Team Description 01/03/2017 Hospital Encounter Adult & Pediatric Ariel Rodríguez Physical Therapy - [address] [place] [address] [facility] [address] [place] [address] Social History Tobacco Use Types Packs/Day Years [...] Daily Note - Bassam Rodríguez, PT - 01/03/2017 12:25 PM EDT Physical Therapy Daily Note Payor: [facility] MANAGED CARE / Plan: [facility] [employer] OPT[employer] PPO / Product Type: PPO / PT Visit Count: 19 Referring Diagnosis: Arthritis of knee; S/p partial left knee replacement November 01, 2016 Rehabilitation Precautions/Restrictions: Precautions/Restrictions Precautions: Tachycardia, diabetes, R knee problems, DDD in lumbar spine Restrictions: None Referring Diagnosis: S/P partial knee replacement SUBJECTIVE Patient Report: [facility] and they were going to talk with you about doing therapy on myback. I'm not sure it will work, because the ex's they gave me killed my back and I had to quit after 2 days. Pain: Pain Assessment Pain Score 1: 2 Pain Location: L knee Pain Interventions: Therapy to tolerance, See interventions OBJECTIVE General Observation/Objective Findings: Continues with light antalgic gait Interventions: Interventions performed as follows: Interventions performed on this visit:: Yes Therapeutic Exercises: See Flow sheet. Therapeutic ex to increase LE ROM, strength, flexibility, andfunctional mobility. I let the patient dictate the resistance, but we did add back in the leg machines today. He had no complaints. Ice at home Education: as described in interventions Education provided: Verbal and Demonstration Level of understanding: Needs review ASSESSMENT Therapy Diagnosis: 1. Status post left partial knee replacement 2. Decreased range of motion of left knee 3. Gait abnormality 4. Weakness of both lower extremities Response to Visit/Summary: Pt is a 61 year old s/p partial L knee replacement. Pt able to return to resistance without any complaints today. There is an order in the chart that I didn't see until the end of our session for lumbar referral. Iwill have to assess this in the future. The lumbar could be leading to some of his LE symptoms he continues with in therapy. Maybe both areas can progress if we get on the right track with the lumbar assessment and treatment. I will have to set him up for an evulation. Pt is benefiting from skilled PT for deficits in ROM, strength, balance and gait. Skilled Intervention needed: Verbal cues, Tactile cues, Education and Tx Program Pain Reassessment: Pain Rating 3/10 Progress Towards Goals: Appropriate, but slow PLAN Progression needed: Ex's for strength, ROM, [...] Treatment Time (Timed & Untimed): 40 (EX 40) Total Time in Timed Codes: 40 The patient has been instructed to contact our clinic if any questions or problems should arise. Electronically signed by: Bassam Rodríguez, PT 01/03/2017 12:25 PM Electronically signed by: Bassam Rodríguez, PT 01/03/17 1230 documented in this encounter Plan of Treatment Not on filedocumented as of this encounter Visit Diagnoses Diagnosis Status post left partial knee replacemen t - Primary Decreased range of motion of left knee Gait abnormality Abnormality of gait Weakness of both lower extremities documented in this encounter Care Teams Software Test Specialist Relationship Specialty Start Date End Date Chetna Loredo PCP - General Family Medicine 05/19/16 04/13/18 documented as of this encounter
--- OUTSIDE RECORDS SUMMARY | 2021-11-30 11:51 | XMS_ITS | Encounter Summary ---
:1955 Author Organization [facility] [place] [address] Care Team Providers Name Role Phone Chetna Loredo Primary Care Provider Unavailable Encounter Details Date Type Department Care Team Description 12/27/2016 Hospital Encounter Adult & Pediatric Chi Jackson Physical Therapy - MEGAN Beatty [facility] [id number] [phone] Social History Tobacco Use Types Packs/Day Years [...] Visit - Daily Note - Chi Jackson, PHYSICIAN OFFICE REP - 12/27/2016 12:43 PM EDT Physical Therapy Daily Note Payor: [facility] MANAGED CARE / Plan: [facility] [employer] OPTIONS PPO / Product Type: PPO / PT Visit Count: 17 Referring Diagnosis: Left partial knee replacement Rehabilitation Precautions/Restrictions: Precautions/Restrictions Precautions: Tachycardia, diabetes, R knee problems, DDD in lumbar spine Restrictions: None Referring Diagnosis: S/P partial knee replacement SUBJECTIVE Patient Report: Pt states he is a 2 or 3/10 pain, but not really pain, just stiffens up. Pt reports being able to mow his yard this past weekend. Pt states he has some soreness in his L medial hamstring from it cramping last night; pt encouraged to monitor water intake and perform seated hamstring stretch as needed. Pain: Pain Assessment Reports: Numerical Pain Score Pain Score 1: 3 Pain Location: L knee Pain Interventions: Therapy [...] knee replacement. Pt was able to perform more functional strengthening ex today with slight increase of painat the beginning of some ex. Pt c/o pain in L patellar tendon with LAQ ex initially, but went away after several reps. Pt states he can do more of the exercise since he has ankle wts at home. Pt had difficulty with some ex when L LE control was needed to prevent locking of the knee. Pt was educated onthe functions of the knee and musculature as it pertains to wt bearing activities and why certain exwere necessary to increase strength to prevent locking or buckling. Pt cont to be motivated and would benefit from cont skilled PT to decrease pain, increase ROM, strength, flexibility, functional mobility/gait and to return pt to PLOF. Skilled Intervention needed: Verbal cues and Protocol Progression Pain Reassessment: Pain Rating: no pain number given. Progress Towards Goals: Pt is improving LE functional strength with modified wallslide. Time frame to achieve goal:: 12 weeks [...] allow for improved ability to ascend/descend stairs. PLAN Progression needed: Progress with therapeutic ex [...] arise. Electronically signed by: Chi Jackson PTA 12/27/2016 5:01 PM Electronically signed by: Chi Jackson PTA 12/27/16 1701 documented in this encounter Plan of Treatment Not on filedocumented as of this encounter Visit Diagnoses Diagnosis Arthritis of knee - Primary Unspecified arthropathy, lower leg Status post left partial knee replacemen t Decreased range of motion of left knee Gait abnormality Abnormality of gait Weakness of both lower extremities Primary osteoarthritis of both knees documented in this encounter Care Teams Rpg Programmer Analyst Relationship Specialty Start Date End Date Chetna Loredo PCP - General Family Medicine 05/19/16 04/13/18 documented as of this encounter
--- OUTSIDE RECORDS SUMMARY | 2021-11-30 11:51 | XMS_ITS | Encounter Summary ---
:1955 Author Organization [facility] [place] [address] Care Team Providers Name Role Phone Chetna Loredo Primary Care Provider Unavailable Encounter Details Date Type Department Care Team Description 12/16/2016 Hospital Encounter Diagnostic Imaging - Donna Martínez [address] [facility] [address] [address] Social History Tobacco Use Types Packs/Day Years [...] Associated Diagnosis Comme nts XR KNEE LT 1 OR 2 Routine 12/16/2016 11:38 S/P left Result s for this VIEWS AM EDT unicompartmental knee proced ure are in replacement the results section. documented in this encounter Results XR KNEE LT 1 [...] Interval removal of surgical yoselin. Susy Martínez Margarita DIAGNOSTIC IMAGING ORDER MASOUD documented in this encounter Visit Diagnoses Diagnosis S/P left unicompartmental knee replaceme nt documented in this encounter Care Teams Service Order Taker Relationship Specialty Start Date End Date Chetna Loredo PCP - General Family Medicine 05/19/16 04/13/18 documented as of this encounter
--- OUTSIDE RECORDS SUMMARY | 2021-11-30 11:51 | XMS_ITS | Encounter Summary ---
:1955 Author Organization [facility] [place] [address] Care Team Providers Name Role Phone Chetna Loredo Primary Care Provider Unavailable Encounter Details Date Type Department Care Team Description 12/29/2016 Documentation Physical Therapy - Lam Godwin PT Chronic midline low back pain without sc iatica (Primary Dx); [facility] Spondylosis of lumbar region without myelopathy or radiculopathy; [facility] Weakness of back; De[facility] [place], [place] [address] [phone] Social History Tobacco Use Types Packs/Day Years [...] encounter Miscellaneous Notes Therapy Discharge Summary - Lam Godwin PT - 12/29/2016 10:21 AM EDT Physical Therapy Discharge of Dormant File Referring Diagnosis: M54.5, G89.29 (ICD-10-CM) - 724.2, 338.29 (ICD-9-CM) - Chronic midline low back pain without sciatica M47.816 (ICD-10-CM) - 721.3 (ICD-9-CM) - Spondylosis of lumbar region without myelopathy or radiculopathy ?? Referring Clinician: Chetan Whitaker,* Therapy Diagnosis: 1. Chronic midline low back pain without sciatica 2. Spondylosis of lumbar region without myelopathy or radiculopathy 3. Weakness of back 4. Back stiffness Initial Evaluation Date: 08/29/16 Number of Visits to Date: 1 Number of Missed Visits: 0 Date of Last Completed Visit: 08/29/16 The patient was seen for an evaluation only. The patient did not schedule any additional follow-up appointments. Due to the lapse in time, the patient is formally discharged from therapy services. Please refer to the initial evaluation for specific patient details. The therapy goals were not met, as th ere was no therapy follow-up care. The patient's current status is not known at this time. Discharge Reason: As above Patient discharged at this time, further therapy will require a physician referral. Electronically signed by: Lam Godwin PT 12/29/16 1024 documented in this encounter Plan of Treatment Not on filedocumented as of this encounter Visit Diagnoses Diagnosis Chronic midline low back pain without sc iatica - Primary Spondylosis of lumbar region without mye lopathy or radiculopathy Weakness of back Back stiffness Other symptoms referable to back documented in this encounter Care Teams Energy Efficiency Engineer Relationship Specialty Start Date End Date Chetna Loredo PCP - General Family Medicine 05/19/16 04/13/18 documented as of this encounter
--- OUTSIDE RECORDS SUMMARY | 2021-11-30 11:51 | XMS_ITS | Encounter Summary ---
:1955 Author Organization [facility] [place] [address] Care Team Providers Name Role Phone Chetna Loredo Primary Care Provider Unavailable Encounter Details Date Type Department Care Team Description 01/19/2017 Hospital Encounter Adult & Pediatric Ariel Rod[facility]guez Physical Therapy - [address] [place] [address] [facility] [place] [address] Social History Tobacco Use Types Packs/Day Years [...] Daily Note - Bassam Rodríguez, PT - 01/19/2017 12:58 PM EDT Physical Therapy Daily Note Payor: [facility]ARE / Plan: [facility] BL[employer] PPO / Product Type: PPO / PT Visit Count: (2 for lumbar) Referring Diagnosis: Arthritis of knee; S/p partial left knee replacement November 01, 2016 Rehabilitation Precautions/Restrictions: Precautions/Restrictions Precautions: None Restrictions: None Referring Diagnosis: DDD (degenerative disc disease), lumbar; Spondylosis of lumbar region without myelopathy or radiculopathy SUBJECTIVE Patient Report: No new complaints Pain: Pain Assessment Pain Location: LBP 3/10; R knee 2.75/10; No other pains rest of R LE; L knee at rest 1, with bending 3/10 Pain Interventions: See interventions, Therapy to tolerance Other Pain Comments: Stair stelp OBJECTIVE General Observation/Objective Findings: No changes in lumbar objective data Needed cues for correct technique on flexion rotation left Interventions: Interventions performed as follows: Therapeutic Exercises: Mechanical ex's for decreased pain, and improved ROM and function Re-assessed the knee, and reviewed all knee goals Flexion rotation left- 6 minutes, ambulated one lap Needed cues for the knee to be higher up Educated centralization LBP 4-4.5/10; R knee 0/10, no other leg pain; L knee at rest 1 Prone over 2 pillows, both flat- 6 minutes LBP 4.5/10; R knee 0/10, no other leg pain; L knee at rest 04/26 Education: as described in interventions Education provided: Verbal and Demonstration Level of understanding: Needs review ASSESSMENT Therapy Diagnosis: 1. DDD (degenerative disc disease), lumbar 2. Spondylosis of lumbar region without myelopathy or radiculopathy 3. Chronic bilateral low back pain with right-sided sciatica 4. Joint stiffness of spine Response to Visit/Summary: Pt is a 61 year old s/p partial L knee replacement. Pt was stating he was no better, and actually may have been worse after trying flexion rotation left. That being said, he had improper technique, and any results can't be assessed. I re-educated the HEP today, emphasizing higher knee flexion on the top leg, and also educated prone with minimal rampingand we will see what the effect is next visit. Today flexion rotation reduced his distal symptoms, but increased the LBP. This may be a centralizing trend. I reassessed all the knee goals, and even though he has not met all the goals, he thought he could be discharged for the knee symptoms at this time. He stated, I can always come back if I need to. Pt is benefiting from skilled PT for deficits in ROM, strength, balance and gait. Skilled Intervention needed: Verbal cues, Tactile cues, Education and Tx Program Pain Reassessment: Pain Rating See interventions Progress Towards Goals: Appropriate, but slow Goal 1: Pt will understand and be able to demonstrate proper posture in static and dynamic situations to assist in acute healing and prevention. Goal 2: Patient will have full, pain-free AROM of the lumbar spine or at least be independent with aprogram working on this goal to assist with all transfers, sitting/standing tolerance and ADLs. Goal 4 Comments/Progress: 4-/5 knee flexion/extension Goal 5: Pt will improve Lysholm score to 80/100. Goal 5 Comments/Progress: 45/10 (Or 55% impairment) Goal 6: Knee: Pt will be independent with HEP for continued gains at PT discharge. Goal 6 Comments/Progress: Independent with current knee program Goal 7: Knee: Pt will report pain of less than or equal to 2/10 with activity in L knee. Goal 7 Comments/Progress: High pain 6/10 L knee Goal 8: Knee: Pt will demonstrate L knee AROM within functional limits to allow for improved abilityto perform transfers. Goal 8 Comments/Progress: He does have improved mobility for transfers, but not full extension/flexion; flexion (114), extension (0) PLAN Progression needed: Ex's for strength, ROM, [...] Total Treatment Time (Timed & Untimed): 50 (Re-eval; EX 20) Total Time in Timed Codes: 50 The patient has been instructed to contact our clinic if any questions or problems should arise. Electronically signed by: Bassam Rodríguez, PT 01/19/2017 1:53 PM Electronically signed by: Bassam Rodríguez, PT 01/19/17 1401 documented in this encounter Plan of Treatment [...] site documented in this encounter Care Teams Installation Drafter Relationship Specialty Start Date End Date Chetna Loredo PCP - General Family Medicine 05/19/16 04/13/18 documented as of this encounter
--- OUTSIDE RECORDS SUMMARY | 2021-11-30 11:51 | XMS_ITS | Encounter Summary ---
:1955 Author Organization [facility] [place] [address] Care Team Providers Name Role Phone Chetna Loredo Primary Care Provider Unavailable Encounter Details Date Type Department Care Team Description 12/05/2016 Hospital Encounter Adult & Pediatric Chi Jackson Physical Therapy - MEGAN Beat[facility] [place] [id number] [phone] Social History Tobacco Use Types Packs/Day Years [...] this encounter Miscellaneous Notes Addendum Note - Chi Jackson PTA - 12/05/2016 9:07 PM EDTEncounter addended by: Chi Jackson PTA on: 12/05/2016 9:07 PM
Actions taken: Charge Capture section accepted Therapy Visit - Daily Note - Chi Jackson PTA - 12/05/2016 7:39 PM EDT Physical Therapy Daily Note Payor: [facility] / Plan: 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 Pt reports he was able to push mow (self- propelled mower) his yard this weekend with noproblems. Pt states he thinks the kinesiotape helped him a great deal over the weekend since he couldn't mow before without a lot of pain. Pain: Pain Assessment Reports: Numerical Pain Score Pain Score 1: 1 Pain Location: L knee Pain Interventions: Therapy [...] mobility. Manual Therapy: Kinesiotape to L knee, Y horseshoe surrounding patella (from patellar tendon insertion pulled superiorly) with a horizontal I piece with L- medial pull 50% at inferior patellar region. Modalities Skin Integrity Assessment: Non Applicable Education: [...] partial knee replacement. Pt responded well to recumbent stepper warm up and is showing improved tolerance for activity with decreased rest times. Pt is demonstrating LE strengthening machines well with no increased pain. STS ex cont to improve with good bilateral wt bearing and no use of hands. Pt is progressing well toward strength gains, however requires focus toward functional activities. Kinesiotape was appliedagain today with the pt stating it feels good. Pt cont to be motivated and would benefit from cont skilled PT to decrease pain, increase ROM, strength, flexibility, functional mobility/gait and to return pt to PLOF. Skilled Intervention needed: Verbal cues and Protocol Progression Pain Reassessment: Pain Rating 0/10 Progress Towards Goals: Pt is improving LE strength with isotonic LE strengthening machines.. Time frame to achieve goal:: 12 weeks [...] arise. Electronically signed by: Chi Jackson PTA 12/05/2016 7:52 PM Electronically signed by: Chi Jackson PTA 12/05/16 195 documented in this encounter Plan of Treatment Not on filedocumented as of this encounter Visit Diagnoses Diagnosis Primary osteoarthritis of both knees - P rimary Arthritis of knee Unspecified arthropathy, lower leg Status post left partial knee replacemen t Decreased range of motion of left knee Weakness of both lower extremities Gait abnormality Abnormality of gait documented in this encounter Care Teams Therapeutic Strategy Lead Relationship Specialty Start Date End Date Chetna Loredo PCP - General Family Medicine 05/19/16 04/13/18 documented as of this encounter
--- OUTSIDE RECORDS SUMMARY | 2021-11-30 11:52 | XMS_ITS | Encounter Summary ---
:1955 Author Organization [facility] [place] [address] Care Team Providers Name Role Phone Chetna Loredo Primary Care Provider Unavailable Reason for Visit Reason Onset Date Comments Mar-lab 08/29/2016 Encounter Details Date Type Department Care Team Description 08/29/2016 Telephone Orthopaedics - [facility] [address] [facility] [address] [phone] [facility] [address] Social History Tobacco Use [...] or does he/she have serious difficulty No 04/25/2016 hearing? Is this person blind or does he/she have serious No 04/25/2016 difficulty seeing even when wearing glasses? Does this person have serious difficulty walking or Yes 04/25/2016 climbing stairs? (5 years old or older) Does this person have difficulty dressing or bathing? (5 No 04/25/2016 years old or older) Because of a physical, mental, or emotional condition, No 04/25/2016 does this person have difficulty doing errands alone such as visiting a doctor's office or shopping? (15 years old and older) Cognitive Status Response Date of Assessment Because of a physical, mental, or emotional condition, No 04/25/2016 does this person have serious difficulty concentrating, remembering, or making decisions? (5 years old or older) documented as of this encounter Miscellaneous Notes Telephone Encounter - Kate Og RN - 08/30/2016 9:[address] Manuel, patient had A1c drawn yesterday, result was 6.1. Posted for left knee YOUSIF 11-01-16. Thanks! Telephone Encounter - Kate Og RN - 08/29/2016 10:04 AM EDT Phone call to patient. Patient evaluated by Dr. Manuel 08-26-16 for left knee pain. Posted for left knee YOUSIF 11-01-16. Discussed Dr. Manuel would like him to have A1c drawn prior to pre-op work-up. Patient in agreement and states he has physical therapy appointment scheduled this morning in [place] and will stop by the lab after physical therapy appointment. Patient also advised he would like to obtain a copy of 08-26-16 office note as well as imaging reports. Provided patient number to medical records. Patient states appreciation for follow-up and reports no other questions/concerns at this time. documented in this encounter Plan of Treatment Not on filedocumented as of this encounter Visit Diagnoses Not on filedocumented in this encounter Care Teams Door Paneler Relationship Specialty Start Date End Date Chetna Loredo PCP - General Family Medicine 05/19/16 04/13/18 documented as of this encounter
--- OUTSIDE RECORDS SUMMARY | 2021-11-30 11:52 | XMS_ITS | Encounter Summary ---
:1955 Author Organization [facility] [place] [address] Care Team Providers Name Role Phone Chetna Loredo Primary Care Provider Unavailable Reason for Visit Reason Comments Loss of Consciousness Encounter Details Date Type Department Care Team Description 11/12/2016 Emergency Emergency - Vikash Sy [address] [place] [id number] Social History Tobacco Use Types Packs/Day [...] Sign Reading Time Taken Comments Blood Pressure 107/63 11/12/2016 2:45 PM EDT Pulse 66 11/12/2016 2:45 PM EDT Temperature 36.5 ??C (97.7 ??F) 11/12/2016 12:58 PM EDT Respiratory Rate 18 11/12/2016 2:45 PM EDT Oxygen Saturation 95% 11/12/2016 2:45 PM EDT Inhaled Oxygen Concentration - - Weight 113.4 kg (249 lb 14.4 oz) 11/12/2016 12:58 PM EDT Height 180.3 cm (5' 11) 11/12/2016 12:58 PM EDT Body Mass Index 34.85 11/12/2016 12:58 PM EDT documented in this encounter Functional [...] as of this encounter Discharge Instructions Discharge InstructionsVikash Guy MD - 11/12/2016 3:45 PM EDT [facility] Orthostatic Hypotension: Care Instructions Your Care Instructions Orthostatic hypotension is a quick drop in blood pressure. It happens when you get up from sitting or lying down. You may feel faint, lightheaded, or dizzy. When a person sits up or stands up, the body changes the way it pumps blood. This can slow the flow of blood to the brain for a very short time. And that can make you feel lightheaded. Many medicines can cause this problem, especially in older people. Lack of fluids (dehydration) or illnesses such as diabetes or heart disease also can cause it. Follow-up care is a sandoval part of your treatment and safety. Be sure to make and go to all appointments, and call your doctor if you are having problems. It's also a good idea to know your test results and keep a list of the medicines you take. How can you care for yourself at home? ?? Tell your doctor about any problems you have with your medicines. ?? If your doctor prescribes medicine to help prevent a low blood pressure problem, take it exactly as prescribed. Call your doctor if you think you are having a problem with your medicine. ?? Drink plenty of fluids, enough so that your urine is light yellow or clear like water. Choose water and other caffeine-free clear liquids. If you have kidney, heart, or liver disease and have to limit fluids, talk with your doctor before you increase the amount of fluids you drink. ?? Limit or avoid alcohol and caffeine. ?? Get up slowly from bed or after sitting for a long time. If you are in bed, roll to your side andswing your legs over the edge of the bed and onto the floor. Push your body up to a sitting position. Wait for a while before you slowly stand up. If you are dizzy or lightheaded, sit or lie down. When should you call for help? Call 911 anytime you think you may need emergency care. For example, call if: ?? You passed out (lost consciousness). Watch closely for changes in your health, and be sure to contact your doctor if: ?? You do not get better as expected. Where can you learn more? Go to https://www.i[employer]id[employer].net/patientEd. Enter V984 in the search box to learn more about Orthostatic Hypotension: Care Instructions. Current as of: July 18, 2016 Content Version: 11.3 ?? [id number] [employer]. Care instructions adapted under license by [facility]. If you have questions about a medical condition or this instruction, always ask your healthcare professional. [employer] disclaims any warranty or liability for your use of this information. Where can you learn more? Log into [employer] at www.[employer] and enter the title of this document into the ???Search [employer] Library?? box to learn more about your instructions. You can also click on ???about this medication, condition, or lab?? to link to additional information. documented in this encounter Medications at Time [...] documented as of this encounter ED Notes Phoenix Mcallister RN - 11/12/2016 2:09 PM EDT Po fluids and warm blanket given per pt request and for comfort Phoenix Mcallister RN - 11/12/2016 1:51 PM EDT During ambualtion pt states being dizzy Vikash Guy MD - 11/12/2016 1:19 PM EDT History Chief Complaint Patient presents with ??? Loss of Consciousness HPI Comments: Patient presents with multiple episodes of syncope. This occurred today. Was sudden inonset. Occurred 4 times. Currently symptoms are improving. Has not arranged these symptoms before. Did have a recent knee replacement 2 weeks ago. Reports pain is tolerable and denies any fevers, chills, shortness of breath, leg swelling. He does feel like he has not been drinking enough fluids. He also feels like being in the heat today caused all of his symptoms. last 2 weeks he has done minimal activity and stated today he was outside in the heat + felt himself getting overheated. He felt nauseous and so sat down. When he got up to walk inside, he collapsed and passed out. This occurred about 4 times, each with rising to a standing position. His symptoms are worse with standing positions, relieved with supine position. Patient is a 61 y.o. male presenting with syncope. The history is provided by the patient. Loss of Consciousness Episode history: Multiple Most recent episode: Today Associated symptoms: no chest pain, no fever and no shortness of breath Past Medical History: Diagnosis Date ??? Diabetes [...] Cigarettes Quit date: 04/16/1989 ??? Smokeless tobacco: None ??? Alcohol use Yes Comment: occassionally Review of Systems Constitutional: Negative for chills and fever. Respiratory: Negative for shortness of breath. Cardiovascular: Positive for syncope. Negative for chest pain. Neurological: Positive for syncope. All other systems reviewed and are negative. Physical Exam ED Triage Vitals BP 11/12/16 1258 105/54 MAP (mmHg) -- Pulse 11/12/16 1258 70 Resp 11/12/16 1258 18 Temp 11/12/16 1258 97.7 ??F (36.5 ??C) SpO2 11/12/16 1258 94 % Physical Exam Nursing note and vitals reviewed. Physical Exam Vitals: 11/12/16 1441 11/12/16 1442 11/12/16 1444 11/12/16 1445 BP: 105/59 106/63 107/63 107/63 Pulse: 60 62 58 66 Temp: Resp: 18 SpO2: 95% PainSc: 0-Zero Height: Weight: BMI (Calculated): Constitutional: Patient is in no acute distress Head: Normocephalic and atraumatic. Eyes: Extraocular motion intact, no scleral icterus Neck: Supple without meningismus, mass, or overt JVD Respiratory: Effort normal and breath sounds normal. No respiratory distress. CV: heart: normal rate and rhythm, no obvious murmurs. Pulses +2 and symmetric Abdomen: Soft, non-tender, non-distended MSK: Extremities are atraumatic without deformity, ROM intact, no calf ttp or edema Skin: Warm, dry, intact Neuro: Alert and oriented, no motor deficit, no sensory deficit noted. CN tested normal. Psychiatric: Mood and affect are normal. ED Course Procedures EKG (my interpretation): NS rhythm with a rate of [address]-T wave changes. No acute changes suggestive of hyperkalemia. No WPW, LQTS, or Brugada's Syndrome. MDM MDM patient with a history of SVT managed with ablations and currently on flecainide, presents with orthostatic syncope. He was found to be orthostatic by vital signs and symptoms. He was given IV fluids with relief of his symptoms. Labs are within normal, the EKG is within normal. He has no symptoms to suggest an infection for pulmonary embolism. He was advised to increase his fluids and to follow-up closely with cardiology. Given his history of SVT, we placed a Zio patch for outpatient monitoring. Clinical Impression: 1. Orthostatic syncope ED Disposition ED Disposition Condition Comment Discharge Dario Mckeon discharge to home/self care. Condition at discharge: Stable Electronically signed by: Vikash Guy MD 11/12/16 1817 Phoenix Mcallister RN - 11/12/2016 1:09 PM EDT EMS reports was outside and had a syncopal episode, upon arrival FS was 182, after syncopal episode was noted to be shaky. Did state that he had taken two of his pain pills today, took oxycodone 5mg, after taking his morning meds became nauseated. EMS went to stand him up and he became dizzy. documented in this encounter Plan of Treatment Not on filedocumented as of this encounter Procedures Procedure Name Priority Date/Time Associated Comments Diagnosis CARDIOLOGY SCAN 11/14/2016 12:50 Results for this PM EDT procedure are i n the results section. CARDIAC HEART MONITOR STAT 11/12/2016 3:55 PM Results for this > 48 HOURS UP TO 7 EDT procedure are in DAYS the results section. CBC WITH AUTO STAT 11/12/2016 1:47 PM Results for this DIFFERENTIAL PANEL EDT procedure are in the results section. CBC AND DIFFERENTIAL STAT 11/12/2016 1:47 PM R esults for this EDT procedure are i n the results section. MAGNESIUM STAT 11/12/2016 1:47 PM Results f or this EDT procedure are i n the results section. COMPREHENSIVE STAT 11/12/2016 1:47 PM Results for this METABOLIC PANEL EDT procedure ar e in the results section. EKG - PERFORMED BY STAT 11/12/2016 1:05 PM Res ults for this NURSING EDT procedure are i n the results section. documented in this encounter Results CARDIOLOGY SCAN (11/14/2016 12:50 PM EDT) Narrative This result has an attachment that is no t available. Default Authenticator [employer] SCANNED DOCUMENTS ZIO PATCH MONITOR 1 TO 14 DAYS Syncope; 14 days (11/12/2016 3:55 PM EDT) Specimen (Source) Anatomical Location Collection Method / Collectio n Time Received Time / Laterality Volume Narrative This result has an attachment that is no t available. Vikash Guy ECG ORDERABLES Performing Organization Address City/State/ZIP Code Phon e Number MUSE (ABNORMAL) CBC and Differential (11/12/2016 1:47 PM EDT) Analysis Performed At Patho logist Time Signature WBC 9.1 4.6 - 10.2 11/12/2016 [facility] X 10^3/uL 2:09 PM EDT N [facility] RBC 4.11 (L) 4.69 - 11/12/2016 [facility] 6.13 X 2:09 PM EDT N MEDICAL 10^6/uL [facility] Hemoglobin 11.9 (L) 14.1 - 11/12/2016 [facility] 18.1 G/DL 2:09 PM EDT [facility] Hematocrit 35.9 (L) 43.5 - 11/12/2016 [facility] 53.7 % 2:09 PM EDT [facility] MCV 87.5 80.0 - 11/12/2016 [facility] 97.0 FL 2:09 PM EDT [facility] MCH 29.0 27.0 - 11/12/2016 [facility] 31.2 PG 2:09 PM EDT [facility] MCHC 33.1 31.8 - 11/12/2016 [facility] 35.4 G/DL 2:09 PM EDT [facility] RDW 14.3 11.6 - 11/12/2016 [facility] 14.8 % 2:09 PM EDT [facility] Platelets 372 142 - 424 11/12/2016 [facility] X 10^3/uL 2:09 PM EDT [facility] MPV 7.2 (L) 7.8 - 11.0 11/12/2016 [facility] FL 2:09 PM EDT [facility] Neutrophil % 75 37 - 80 % 11/12/2016 [facility] 2:09 PM EDT [facility] Lymphocyte % 16 10 - 50 % 11/12/2016 [facility] 2:09 PM EDT [facility] Monocyte % 8 0 - 12 % 11/12/2016 [facility] 2:09 PM EDT [facility] Eosinophil % 1 0 - 7 % 11/12/2016 [facility] 2:09 PM EDT N [facility] Basophil % 0 0 - 2 % 11/12/2016 [facility] 2:09 PM EDT [facility] Neutrophil 6.8 2.0 - 6.9 11/12/2016 [facility] Absolute X 10^3/uL 2:09 PM EDT [facility] Lymphocyte 1.5 0.6 - 3.4 11/12/2016 [facility] Absolute X 10^3/uL 2:09 PM EDT N [facility] Monocyte 0.7 0.0 - 0.9 11/12/2016 [facility] X 10^3/uL 2:09 PM EDT [facility] Eosinophil 0.1 0.0 - 0.7 11/12/2016 [facility] Absolute X1000 2:09 PM EDT [facility] Basophil 0.0 0.0 - 0.2 11/12/2016 [facility] Absolute X1000 2:09 PM EDT [facility] Specimen Anatomical Collection Method / Collection Time Recei ericka Time (Source) Location / Volume Laterality Blood specimen Venipuncture / 11/12/2016 1:47 11/13/19 17 2:05 (specimen) Unknown PM EDT PM EDT Vikash Bishop Brooks LAB BLOOD ORDERABLES Performing Organization Address City/[facility] Phon e Number [facility] [id number] [place] [address] [facility] [address] [facility] CLIA#[id number] [place] [address] [facility] [address] Magnesium (11/12/2016 1:47 PM EDT) P athologist Signature Magnesium 2.1 1.8 - 2.5 11/12/2016 [facility] MG/DL 2:27 PM EDT [facility] Specimen Anatomical Collection Method / Collection Time Recei ericka Time (Source) Location / Volume Laterality Blood specimen Venipuncture / 11/12/2016 1:47 11/13/19 17 2:05 (specimen) Unknown PM EDT PM EDT Vikash Dario Guy LAB BLOOD ORDERABLES Performing Organization Address City/State/[facility] Phon e Number [facility] [id number] [place] [address] [facility] [address] [facility][id number] [place] [address] [facility] [address] [facility] (ABNORMAL) Comprehensive Metabolic Panel (11/12/2016 1:47 PM EDT) Analysis Performed At Patho logist Time Signature Sodium 137 136 - 144 11/12/2016 [facility] MMOL/L 2:27 PM EDT [facility] Potassium 3.7 3.5 - 5.1 11/12/2016 [facility] MMOL/L 2:27 PM [facility] Chloride 106 101 - 111 11/12/2016 [facility] MMOL/L 2:27 PM [facility] CO2 24 22 - 32 11/12/2016 [facility] MMOL/L 2:27 PM [facility] Glucose 136 (H) 79 - 115 11/12/2016 [facility] MG/DL 2:27 PM [facility] Creatinine 1.07 0.90 - 11/12/2016 [facility] 1.30 MG/DL 2:27 PM [facility] Calcium 8.7 (L) 8.9 - 10.3 11/12/2016 [facility] MG/DL 2:27 PM [facility] Total Protein 7.3 6.5 - 8.1 11/12/2016 [facility] G/DL 2:27 PM [facility] Albumin 4.0 3.5 - 5.0 11/12/2016 [facility] G/DL 2:27 PM [facility] Total Bilirubin 0.4 0.3 - 1.2 11/12/2016 [facility] MG/DL 2:27 PM [facility] Alkaline 85 32 - 91 11/12/2016 [facility] Phosphatase IU/L 2:27 PM [facility] AST (SGOT) 22 15 - 41 11/12/2016 [facility] IU/L 2:27 PM [facility] ALT (SGPT) 25 17 - 63 11/12/2016 [facility] IU/L 2:27 PM [facility] Anion Gap 7 6 - 16 11/12/2016 [facility] MMOL/L 2:27 PM [facility] Est. GFR >60 11/12/2016 [facility] Non- 2:27 PM [facility] Comment: GFR is calculated by IDMS traceable MDRD method, and the result is about 5% lower than previously reported results (prior to Mar 28, 2011). Est. GFR >60 11/12/2016 2:27 PM EDT [facility] Comment: GFR is calculated by IDMS traceable MDRD method, and the result is about 5% lower than previously reported results (prior to Mar 28, 2011). BUN 24.0 8.0 - 26.0 MG/DL 11/12/2016 2:27 PM EDT [facility] Specimen Anatomical Collection Method / Collection Time Recei ericka Time (Source) Location / Volume Laterality Blood specimen Venipuncture / 11/12/2016 1:47 11/13/19 17 2:05 (specimen) Unknown PM EDT PM EDT Vikash Guy LAB BLOOD ORDERABLES Performing Organization Address City/State/ZIP Code Phon e Number [facility] CLIA# [id number] [place] [address] [facility] [address] [facility] CLIA#[id number] [place] [address] [place] [facility] [address] EKG - Performed by Nursing (11/12/2016 1:05 PM EDT) Specimen Anatomical Collection Method Collection Time Receive d Time (Source) Location / / Volume Laterality 11/12/2016 1:05 PM 11/14/ 7 EDT 12:50 PM EDT Narrative MUSE - 11/14/2016 12:50 PM EDT Ventricular Rate ? 64 ?BPM ? Atrial Rate ?64 ?BPM ? P-R Interval ? 190 ? ms ? QRS Duration ? 96 ?ms ? Q-T Interval ? 452 ? ms ? QTC ?466 ? ms ? P [facility] ? 28 ?degrees ? R [facility] ? -39 ? degrees ? [facility] ? 32 ?degrees ? Sinus rhythm Left axis deviation When compared with ECG of 17-OCT-2016 12 :22, No significant change was found Confirmed by DR. FUNMILAYO EASON ([id number]) on 11/14/2016 12:50:03 PM Procedure Note Funmilayo Eason MD - 11/14/2016For matting of this note might be different from the original. Ventricular Rate 64 BPM Atrial Rate 64 BPM P-R Interval 190 ms QRS Duration 96 ms Q-T Interval 452 ms QTC 466 ms P [facility] 28 degrees R [facility] -39 degrees T [facility] 32 degrees Sinus rhythm Left axis deviation When compared with ECG of 17-OCT-2016 12 :22, No significant change was found Confirmed by DR. FUNMILAYO EASON ([id number]) on 11/14/2016 12:50:03 PM Vikash Guy ECG SPECIAL Performing Organization Address City/State/ZIP Code Phon e Number MUSE documented in this encounter Visit Diagnoses Diagnosis Orthostatic syncope - Primary documented in this encounter Administered Medications Inactive Administered Medications - up to 3 most recent administrations Medication Order MAR Action Action Date Dose Rate Site 0.9% NaCl bolus New Bag 11/12/2016 1:40 PM EDT 1,000 mLs 1,000 mL Once, Intravenous, On 11/12/16 at 1415, For 1 dose 0.9% NaCl bolus New Bag 11/12/2016 2:11 PM EDT 1,000 mLs 1,000 mL Once, Intravenous, On 11/12/16 at 1415, For 1 dose documented in this encounter Active and Recently Administered Medications Times are shown in EDT. Scheduled Medication Order 11/10/2016 11/11/2016 11/12/2016 0.9% NaCl bolus (COMPLETED) 1340 (New Bag - Provider: Phoenix Mcallister, BERNARD)1409 (Stopped - Provider: Phoenix Mcallister RN) 1,000 mL Once, Intravenous, Sat 11/12/16 at 1415, For 1 dose 0.9% NaCl bolus (COMPLETED) 1411 (New Bag - Provider: Phoenix Mcallister, BERNARD)1441 (Stopped - Provider: Phoenix Mcallister RN) 1,000 mL Once, Intravenous, Sat 11/12/16 at 1415, For 1 dose documented in this encounter Care Teams Finishing Room Operator Relationship Specialty Start Date End Date Chetna Loredo PCP - General Family Medicine 05/19/16 04/13/18 documented as of this encounter
--- OUTSIDE RECORDS SUMMARY | 2021-11-30 11:52 | XMS_ITS | Encounter Summary ---
:1955 Author Organization [facility] [place] [address] Care Team Providers Name Role Phone Chetna Loredo Primary Care Provider Unavailable Reason for Referral (Routine) - Closed Specialty Diagnoses / Procedures Referred By Contact Refer red To Contact Spine Center Diagnoses Primary osteoarthritis of left knee Chronic midline low back pain without sciatica Nasir Vega PA-C [id number] [facility] [address] [address] 6 [facility] [place] [address] Phone: Referral ID Status Reason Start Date Expiration Date Visits V isits Requested Authorized [id number] Closed Primary Spine 07/28/2016 07/28/2017 1 1 Provider (ROMI) RI/CT/PET Scan (Routine) - Closed Specialty Diagnoses / Procedures Referred By Contact Refer red To Contact Radiology Diagnoses Primary osteoarthritis of left knee Chronic midline low back pain without sciatica Nasir Vega [facility]-C [facility] Procedures MR KNEE LEFT WO CONTRAST [address] [address] [address] [place] [address] Referral ID Status Reason Start Date Expiration Date Visits Requ ested Visits Authorized [id number] Closed 08/02/2016 09/30/2016 1 1 Reason for Visit Reason Comments Bilateral Knee Problem Patient presents today for a n evaluation of the left knee. Last Synvisc injection was o n 06/02/16, bilateral knee. Encounter Details Date Type Department Care Team Description 07/28/2016 Office Visit Orthopaedics - Nasir Abrams, Primary osteoarthritis of le ft knee (Primary Dx); [address] PA-C Chronic midline low back pain without sc iatica [facility] [place], [place] [address] [place] [address] [place] [address] Social History Tobacco Use Types Packs/Day Years [...] Sign Reading Time Taken Comments Blood Pressure 120/69 07/28/2016 10:58 AM EDT Pulse 59 07/28/2016 10:58 AM EDT Temperature 36.8 ??C (98.2 ??F) 07/28/2016 10:58 AM EDT Respiratory Rate - - Oxygen Saturation - - Inhaled Oxygen Concentration - - Weight 118.4 kg (261 lb) 07/28/2016 10:58 AM EDT Height 180.3 cm (5' 11) 07/28/2016 10:58 AM EDT Body Mass Index 36.4 07/28/2016 10:58 AM EDT documented in this encounter Functional [...] encounter Progress Notes Nasir Vega PA-C - 07/28/2016 11:00 AM EDT Mr. Dario Mckeon [id number] 1955 (age: 60 y.o.) Return Visit Referred by: Self Referral No address on file Chief Complaint: Chief Complaint Patient presents with ??? Bilateral Knee Problem Patient presents today for an evaluation of the left knee. Last Synvisc injection was on 06/02/16, bilateral knee. History of Present Illness: HPI Comments: Finished synvisc recently left knee, didn't help - having a lot of mechanical troublesnow - limping/swelling/catching and locking Long standing chronic back pain - requesting referral to spine center - no recent treatment -RAY BOTH KNEES (3 VIEWS), 04/25/2016 10:44 AM ? INDICATION: [id number] Bilateral chronic knee pain M25.562 Bilateral chronic knee pain G89.29 Bilateral chronic knee pain COMPARISON: None. ? CONCLUSION: ?? Right knee: 1. No acute fracture or malalignment. 2. Small joint effusion. 3. Mild lateral, moderate medial and patellofemoral compartment degenerative changes. ? Left knee: 1. No acute fracture or malalignment. 2. Trace joint effusion. 3. Mild lateral, moderate medial and patellofemoral compartment degenerative changes. ? Past Medical History: Diagnosis Date ??? Hyperlipemia ??? Ruptured appendix ??? Tachycardia Past Surgical History: Procedure Laterality Date ??? APPENDECTOMY Social History Social History ??? Marital status: [...] ??? Not on file Social History Narrative Allergies Allergen Reactions ??? Morphine Anaphylaxis (ALLERGY) ??? Sulfamethoxazole Anaphylaxis (ALLERGY) Review of Systems: Review of Systems Constitutional: Negative. Neurological: Negative. Endo/Heme/Allergies: Negative. Psychiatric/Behavioral: Negative. Home Medications Medication Sig Dispense Refill ??? acetaminophen (TYLENOL) 500 MG tablet Take 1,000 mg by mouth every 4 hours. ??? ascorbic acid, vitamin C, (VITAMIN C) 500 MG tablet Take 500 mg by mouth daily. ??? aspirin 81 MG EC tablet *ANTIPLATELET* Take by mouth daily. ??? atorvastatin (LIPITOR) 20 MG tablet Take 20 mg by mouth daily. ??? cyclobenzaprine (FLEXERIL) 10 MG tablet Take 10 mg by mouth 3 (three) times daily as needed for Muscle spasms. ??? flecainide (TAMBOCOR) 100 MG tablet Take 100 mg by mouth every 12 hours. ??? loratadine (CLARITIN) 10 mg tablet Take 10 mg by mouth daily. ??? meloxicam (MOBIC) 7.5 MG tablet Take 7.5 mg by mouth daily. ??? metoPROLOL tartrate (LOPRESSOR) 50 MG tablet Take 50 mg by mouth 2 times daily. ??? multivitamin capsule Take 1 capsule by mouth daily. ??? traMADol (ULTRAM) 50 mg tablet Physical Exam: Physical Exam Constitutional: He is [...] Knee Exam Right knee exam is normal. Tests Emili: Anterior - negative Drawer: Anterior - negative Pivot Shift: negative Patellar Apprehension: negative Other Sensation: normal Pulse: present Swelling: none Left Knee Exam Tenderness The patient is experiencing tenderness in the medial joint line. Range of Motion The patient has normal left knee ROM. Alignment neutral Tests Pito: Medial - positive Emili: Anterior - negative Drawer: Anterior - negative Pivot Shift: negative Patellar Apprehension: negative Other Sensation: normal Pulse: present Swelling: none Back Exam Tenderness The patient is experiencing tenderness in the sacroiliac. Range of Motion Extension: abnormal Flexion: abnormal Vitals: Vitals: 07/28/16 1058 07/28/16 1059 BP: 120/69 Pulse: 59 Temp: 98.2 ??F (36.8 ??C) PainSc: 6-Six (moderate) Height: 1.803 m (5' 11) Weight: 118.4 kg (261 lb) BMI (Calculated): 36.5 Special Investigations- Review of Diagnostic Tests: Radiologic Studies: I have personally reviewed plain x-ray images from [facility]. Degenerative changes both knees And lumbar spine Lab Studies: I have not reviewed any lab test results for this patient. Assessment: 1. Primary osteoarthritis of left knee MR KNEE LEFT WO CONTRAST Ambulatory Referral To Spine Center XR SPINE LUMBAR (AP+LAT+OBLIQUES) 2. Chronic midline low back pain without sciatica MR KNEE LEFT WO CONTRAST Ambulatory Referral To Spine Center XR SPINE LUMBAR (AP+LAT+OBLIQUES) Plan: 1. Xray lumbar 2. Referral spine center 3. MRI left knee Follow up: No Follow-up on file. No orders of the defined types were placed in this encounter. Electronically signed by: Nasir Vega PA-C 07/28/2016 11:02 AM Electronically signed by: Nasir Vega PA-C 07/28/16 1310 documented in this encounter Plan of Treatment Not on filedocumented as of this encounter Results MR KNEE LEFT WO CONTRAST (08/08/2016 12:13 PM EDT) Anatomical Region Laterality Modality Thigh, Knee, Leg Magnetic Resonance Specimen (Source) Anatomical Collection Method Collection Time Re ceived Time Location / / Volume Laterality 08/08/2016 1:44 PM EDT Impressions 08/08/2016 3:22 PM EDT 1. ??Complex tear of the medial meniscus with extrusion. 2. ??Tricompartmental degenerative jenkins es, worst in the medial compartment with large areas of full-thickness cartilage loss. 3. ??Small knee joint effusion with syno vitis tracking along the course of the popliteal tendon sheath. 4. ??Small leaking Kraus cyst. Narrative 08/08/2016 3:22 PM EDT MRI LEFT KNEE WITH CONTRAST, 08/08/2016 12:13 PM INDICATION: ??KNEE PAIN, PERSISTENT, >=6 [id number] Primary osteoarthritis of left knee M54.5 Chronic midline low back pain without sciatica G89.29 Chronic midline low back pain without sciatica COMPARISON: 04/25/2016 radiographs TECHNIQUE: Multi-planar, multi-sequence MR imaging of the left knee was performed without contrast. FINDINGS: . ??Bone: No fracture, avascular necrosi s, or marrow replacement. Degenerative subchondral marrow change within the peripheral aspects of the medial femoral condyle and medial tibial plateau. . ??Cruciate ligaments: Intact. . ??Collateral ligaments: Intact. . ??Medial meniscus: Complex tear at the junction of the posterior horn and body (series 6 images 10-14) with extrusion. . ??Lateral meniscus: Intact. . ??Medial compartment: Areas of full-th ickness cartilage loss along the weightbearing portions medial femoral condyle and medial tibial plateau. . ??Lateral compartment: Small focal are as of full-thickness cartilage loss along the weightbearing portions lateral femoral condyle and lateral tibial plateau. . ??Patellofemoral compartment: Focal ar eas of full-thickness cartilage loss along the lateral patellar facet and lateral trochlea. Background partial thickness cartilage loss. . ??Extensor mechanism: Intact. . ??Joint: No malalignment. Small knee j oint effusion and synovitis. Small proximal tibiofibular joint effusion. Intermediate signal noted along the course of the popliteal tendon sheath consistent with synovitis. . ??Soft tissues: Small leaking Kraus cy st. Extensive subcutaneous soft tissue varicosities. Small multiloculated cystic structure along the posterior aspect of the PCL consistent with a ganglion cyst. Procedure Note Santiago Cuba MD - 08/08/2016Fo rmatting of this note might be different from the original. MRI LEFT KNEE WITH CONTRAST, 08/08/2016 1 2:13 PM INDICATION: KNEE PAIN, PERSISTENT, >=6WK SM17.12 Primary osteoarthritis of left knee M54.5 Chronic midline low back pain without sciatica G89.29 Chronic midline low back pain without sciatica COMPARISON: 04/25/2016 radiographs TECHNIQUE: Multi-planar, multi-sequence MR imaging of the left knee was performed without contrast. FINDINGS: . Bone: No fracture, avascular necrosis, or marrow replacement. Degenerative subchondral marrow change within the peripheral aspects of the medial femoral condyle and medial tibial plateau. . Cruciate ligaments: Intact. . Collateral ligaments: Intact. . Medial meniscus: Complex tear at the j unction of the posterior horn and body (series 6 images 10-14) with extrusion. . Lateral meniscus: Intact. . Medial compartment: Areas of full-thic kness cartilage loss along the weightbearing portions medial femoral condyle and medial tibial plateau. . Lateral compartment: Small focal areas of full-thickness cartilage loss along the weightbearing portions lateral femoral condyle and lateral tibial plateau. . Patellofemoral compartment: Focal area s of full-thickness cartilage loss along the lateral patellar facet and lateral trochlea. Background partial thickness cartilage loss. . Extensor mechanism: Intact. . Joint: No malalignment. Small knee manny nt effusion and synovitis. Small proximal tibiofibular joint effusion. Intermediate signal noted along the course of the popliteal tendon sheath consistent with synovitis. . Soft tissues: Small leaking Kraus cyst . Extensive subcutaneous soft tissue varicosities. Small multiloculated cystic structure along the posterior aspect of the PCL consistent with a ganglion cyst. CONCLUSION: 1. Complex tear of the medial meniscus w ith extrusion. 2. Tricompartmental degenerative changes , worst in the medial compartment with large areas of full-thickness cartilage loss. 3. Small knee joint effusion with synovi tis tracking along the course of the popliteal tendon sheath. 4. Small leaking Kraus cyst. Nasir GOLDSTEIN MRI ORDERABLES XR SPINE LUMBAR (AP+LAT+OBLIQUES) (07/28/2016 11:22 AM EDT) Anatomical Region Laterality Modality L-spine Digital Radiography Specimen (Source) Anatomical Collection Method Collection Time Re ceived Time Location / / Volume Laterality 07/28/2016 5:25 PM EDT Impressions 07/29/2016 8:28 AM EDT 1. ??No acute fracture. No pars defects. 2. ??Approximately 3 mm retrolisthesis o f L3 on L4, unchanged from the prior CT. 3. ??Multilevel degenerative changes of the lumbar spine, most advanced at L2-L3 where there is moderate disc space narrowing at L2-L3 and L5-S1 where there is moderate disc space narrowing and facet hypertrophy. 4. ??Minimal dextrocurvature centered at L3. Narrative 07/29/2016 8:28 AM EDT X-RAY LUMBOSACRAL SPINE (4+ VIEWS), 07/28/2016 11:22 AM INDICATION: ??M17.12 Primary osteoarthri tis of left knee M54.5 Chronic midline low back pain without sciatica G89.29 Chronic midline low back pain without sciatica COMPARISON: CT 01/31/2016 Procedure Note Raj Rivas MD - 07/29/2016 X-RAY LUMBOSACRAL SPINE (4+ VIEWS), 07/28 11:22 AM INDICATION: M17.12 Primary osteoarthriti s of left knee M54.5 Chronic midline low back pain without sciatica G89.29 Chronic midline low back pain without sciatica COMPARISON: CT 01/31/2016 CONCLUSION: 1. No acute fracture. No pars defects. 2. Approximately 3 mm retrolisthesis of L3 on L4, unchanged from the prior CT. 3. Multilevel degenerative changes of th e lumbar spine, most advanced at L2-L3 where there is moderate disc space narrowing at L2-L3 and L5-S1 where there is moderate disc space narrowing and facet hypertrophy. 4. Minimal dextrocurvature centered at L 3. Nasir Vega PA-C [facility] IMAGING ORDER MASOUD documented in this encounter Visit Diagnoses Diagnosis Primary osteoarthritis of left knee - Pr imary Chronic midline low back pain without sc iatica Primary osteoarthritis of left knee Chronic midline low back pain without sc iatica Primary osteoarthritis of left knee Chronic midline low back pain without sc iatica documented in this encounter Care Teams Remote Sensing Research Scientist Relationship Specialty Start Date End Date Chetna Loredo PCP - General Family Medicine 05/19/16 04/13/18 documented as of this encounter
--- OUTSIDE RECORDS SUMMARY | 2021-11-30 11:52 | XMS_ITS | Encounter Summary ---
:1955 Author [facility] [place] [place] [address] Care Team Providers Name Role Phone Chetna Loredo Primary Care Provider Unavailable Reason for Referral MRI/CT/PET Scan (Routine) - Closed Specialty Diagnoses / Procedures Referred By Contact Refer red To Contact Radiology Diagnoses Primary osteoarthritis of left knee Chronic midline low back pain without sciatica Nasir Vega PA-C [facility] Procedures MR KNEE LEFT WO CONTRAST [address] [address] 6 [place] [address] Referral ID Status Reason Start Date Expiration Date Visits Requ ested Visits Authorized [id number] Closed 08/02/2016 09/30/2016 1 1 Reason for Visit MRI/CT/PET Scan (Routine) - Closed Specialty Diagnoses / Procedures Referred By Contact Refer red To Contact Radiology Diagnoses Primary osteoarthritis of left knee Chronic midline low back pain without sciatica Nasir Vega PA-C [facility] Procedures [facility] KNEE LEFT WO CONTRAST [address] [facility] [address] [address] 6 [place] [address] Referral ID Status Reason Start Date Expiration Date Visits Requ ested Visits Authorized [id number] Closed 08/02/2016 09/30/2016 1 1 Encounter Details Date Type Department Care Team Description 08/08/2016 Hospital Encounter MRI Imaging - Nasir Logan PA-C [facility] [address] [place] [address] [place] [phone] [place] [address] (Wo rk) Social History Tobacco Use Types [...] Sig Dispensed Refills Start Date End Date acetaminophen (TYLENOL) 500 Take 1,000 mg by 0 11/01/2016 MG tablet mouth every 6 (six) hours as needed. ascorbic acid, vitamin C, Take 500 mg by 0 11/12/2016 (VITAMIN C) 500 MG tablet mouth daily. aspirin 81 MG EC tablet Take 81 mg by 0 11/01/2016 *ANTIPLATELET* mouth daily. atorvastatin (LIPITOR) 20 Take 20 mg by 0 07/31/2018 MG tablet mouth daily. cyclobenzaprine (FLEXERIL) Take 10 mg by 0 04/06/2017 10 MG tablet mouth 2 times daily. flecainide (TAMBOCOR) 100 Take 100 mg by 0 04/26/2018 MG tablet mouth every 12 hours. loratadine (CLARITIN) 10 mg Take 10 mg by 0 11/12/2016 tablet mouth daily as needed. meloxicam (MOBIC) 7.5 MG Take 7.5 mg by 0 11/01/2016 tablet mouth daily. metFORMIN (GLUCOPHAGE) 500 Take 500 mg by 0 08/0307/31/2018 MG tablet mouth 2 times daily with meals. metoPROLOL tartrate Take 50 mg by 0 (LOPRESSOR) 50 MG tablet mouth 2 times daily. multivitamin capsule Take 1 capsule by 0 03/01/2021 mouth daily. ONETOUCH DELICA LANCETS 30 0 7 10/12/2016 gauge Misc ONETOUCH ULTRA TEST Strp 0 08/04/2016 10/12/2016 ONETOUCH ULTRAMINI kit 0 08/03/2016 TOPROL XL 50 mg 24 hr 0 07/01/201606/2016 tablet traMADol (ULTRAM) 50 mg Take 50 mg by 0 6 11/01/2016 tablet mouth every 6 (six) hours as needed. documented as of this encounter Plan of Treatment Not on filedocumented as of this encounter Procedures Procedure Name Priority Date/Time Associated Diagnosis Comme nts MR KNEE LEFT WO Routine 08/08/2016 12:13 Primary osteoarthriti s Results for this CONTRAST PM EDT of left knee procedure are in Chronic midline low the resu lts back pain without section. sciatica documented in this encounter Results MR KNEE LEFT WO [...] sheath. 4. Small leaking Kraus cyst. Nasir Vega PA-C [facility] ORDERABLES documented in this encounter Visit Diagnoses Diagnosis Primary osteoarthritis of left knee Chronic midline low back pain without sc iatica documented in this encounter Care Teams Laboratory Apparatus Glass Blower Relationship Specialty Start Date End Date Chetna Loredo PCP - General Family Medicine 05/19/16 04/13/18 documented as of this encounter
--- OUTSIDE RECORDS SUMMARY | 2021-11-30 11:52 | XMS_ITS | Encounter Summary ---
:1955 Author Organization [facility] [place] [address] Care Team Providers Name Role Phone Chetna Loredo Primary Care Provider Unavailable Encounter Details Date Type Department Care Team Description 10/17/2016 Lab Visit Phlebotomy - Miguelito Dan MD Primary osteoarthritis of [facility] [address] [place] [id number] [phone] Social History Tobacco Use Types Packs/Day Years [...] Name Priority Date/Time Associated Diagnosis Comme nts CBC Routine 10/17/2016 12:46 Primary osteoarthritis R esults for this PM EDT of both knees procedure are in the results section. PREALBUMIN Routine 10/17/2016 12:46 Primary osteoarthritis R esults for this PM EDT of both knees procedure are in the results section. HEMOGLOBIN A1C Routine 10/17/2016 12:46 Primary osteoarthritis Results for this PM EDT of both knees procedure are in the results section. ALBUMIN Routine 10/17/2016 12:46 Primary osteoarthritis R esults for this PM EDT of both knees procedure are in the results section. BASIC METABOLIC Routine 10/17/2016 12:46 Primary osteoarthriti s Results for this PANEL PM EDT of both knees procedure are in the results section. documented in this encounter Results Basic Metabolic Panel (10/17/2016 12:46 PM EDT) P athologist Signature Sodium 139 135 - 146 10/17/2016 [place] [facility] MMOL/L 1:48 PM EDT [facility] Potassium 4.1 3.5 - 5.3 10/17/2016 [place] [facility] MMOL/L 1:48 PM EDT [facility] Comment: NO VISIBLE HEMOLYSIS Chloride 106 98 - 110 MMOL/L 10/17/2016 1:48 PM [place] [facility] EDT [facility] CO2 25 21 - 33 MMOL/L 10/17/2016 1:48 PM [place] [facility] EDT [facility] BUN 18 8 - 24 MG/DL 10/17/2016 1:[address] [place] [address] EDT [facility] Glucose 90 70 - 99 MG/DL 10/17/2016 1:48 PM [place] [facility] EDT [facility] Creatinine 0.78 0.50 - 1.50 10/17/2016 1:[address] MG/DL T [facility] Calcium 9.3 8.5 - 10.5 MG/DL 10/17/2016 1:48 PM [place] [facility] Anion Gap 8 4 - 14 MMOL/L 10/17/2016 1:48 PM [place] [facility] Est. GFR Non- >60 10/17/2016 1:48 PM [facility] [place] [facility] Comment: GFR is calculated by IDMS traceable MDRD method, and the result is about 5% lower than previously reported results (prior to Mar 28, 2011). Est. GFR >60 10/17/2016 1:4 8 PM EDT [facility] Comment: GFR is calculated by IDMS traceable MDRD method, and the result is about 5% lower than previously reported results (prior to Mar 28, 2011). Specimen Anatomical Collection Method / Collection Time Recei ericka Time (Source) Location / Volume Laterality Blood specimen Venipuncture / 10/17/2016 12:46 017 (specimen) Unknown PM EDT 12:46 PM EDT Susy Georges [employer] LAB BLOOD ORDERABLES Performing Organization Address City/State/ZIP Code Phon e Number [facility] CLIA# [id number] [place] [address] [facility] [place] Prealbumin (10/17/2016 12:46 PM EDT) P athologist Signature Prealbumin 26.5 14.0 - 40.0 10/17/2016 [facility]DL 1:48 PM T [facility] Specimen Anatomical Collection Method / Collection Time Recei ericka Time (Source) Location / Volume Laterality Blood specimen Venipuncture / 10/17/2016 12:46 017 (specimen) Unknown PM EDT 12:46 PM EDT Susy Georges [employer] LAB BLOOD ORDERABLES Performing Organization Address City/State/ZIP Code Phon e Number [facility] CLIA# [id number] [place] [address] [facility] [place] Albumin (10/17/2016 12:46 PM EDT) athologist Signature Albumin 4.3 3.5 - 5.0 10/17/2016 [place] [facility] G/DL 1:48 PM EDT [facility] Specimen Anatomical Collection Method / Collection Time Recei ericka Time (Source) Location / Volume Laterality Blood specimen Venipuncture / 10/17/2016 12:46 017 (specimen) Unknown PM EDT 12:46 PM EDT Susy Martínez LAB BLOOD ORDERABLES Performing Organization Address City/State/ZIP Code Phon e Number [facility] CLIA# [id number] [place] [address] [facility] (ABNORMAL) CBC (10/17/2016 12:46 PM EDT) athologist Signature WBC 7.9 4.8 - 10.8 10/17/2016 [place] [facility] X 10^3/uL 1:25 PM EDT [facility] RBC 4.56 (L) 4.70 - 6.10 10/17/2016 [place] [facility] X 10^6/uL 1:25 PM EDT [facility] Hemoglobin 13.2 (L) 14.0 - 18.0 10/17/2016 [place] [facility] G/DL 1:25 PM EDT [facility] Hematocrit 39.7 (L) 42.0 - 52.0 10/17/2016 [place] [facility] % 1:25 PM EDT [facility] MCV 87.1 80.0 - 94.0 10/17/2016 [facility] [place] 1:25 PM EDT [facility] MCH 28.9 27.0 - 31.0 10/17/2016 [place] [facility] PG 1:25 PM EDT [facility] MCHC 33.2 33.0 - 37.0 10/17/2016 [place] [facility] G/DL 1:25 PM EDT [facility] RDW 14.0 11.5 - 14.5 10/17/2016 [place] [facility] % 1:25 PM EDT [facility] Platelets 302 160 - 360 X 10/17/2016 [place] [facility] 10^3/uL 1:25 PM EDT [facility] [employer] MPV 7.7 6.8 - 10.2 10/17/2016 [facility] [place] 1:25 PM EDT [facility] [employer] Specimen Anatomical Collection Method / Collection Time Recei ericka Time (Source) Location / Volume Laterality Blood specimen Venipuncture / 10/17/2016 12:46 017 (specimen) Unknown PM EDT 12:46 PM EDT Susy Hunterdanishadario LAB BLOOD ORDERABLES Performing Organization Address City/[facility] Phon e Number [facility] CLIA# [id number] [place] [address] [facility] [place] (ABNORMAL) Hemoglobin A1C (10/17/2016 12:46 PM EDT) P athologist Signature HEMOGLOBIN A1C 5.9 (H) <5.7 % 10/17/2016 [facility] 2:11 PM EDT [facility] [employer] [facility] Comment: Normal: ? Less than 5.7% Prediabetes: ??5.7% to 6.4% Diabetes: ? Greater than 6.4% eAG 123 MG/DL 10/17/2016 2:11 PM EDT [facility] [employer] [facility] eAG Comment 10/17/2016 2:11 PM EDT [facility] [employer] [facility] Comment: The [place] [employer] on has supported the use [...] / Volume Laterality Blood specimen Venipuncture / 10/17/2016 12:46 017 (specimen) Unknown PM EDT 12:46 PM EDT Susy Destini Daledanishadario LAB BLOOD ORDERABLES Performing Organization Address City/[facility]/ZIP Code Phon e Number [facility] CLIA# [id number] [place] [address] [facility] [place] documented in this encounter Visit Diagnoses Diagnosis Primary osteoarthritis of both knees documented in this encounter Care Teams Signal Inspector Relationship Specialty Start Date End Date Chetna Loredo PCP - General Family Medicine 05/19/16 04/13/18 documented as of this encounter
--- OUTSIDE RECORDS SUMMARY | 2021-11-30 11:52 | XMS_ITS | Encounter Summary ---
:1955 Author Organization [facility] [place] [address] Care Team Providers Name Role Phone Chetna Loredo Primary Care Provider Unavailable Reason for Visit Physical Therapy (Routine) - Closed Specialty Diagnoses / Procedures Referred By Contact Refer red To Contact Physical Therapy Diagnoses Status post left partial knee replacement Miguelito Manuel MD [facility] [address] [place] [address] [address] [place] [address] Fax: Referral ID Status Reason Start Date Expiration Visits Visits Date Requested Authorized [id number] Closed Evaluation and 10/21/2016 10/21/2017 1 1 Treat Encounter Details Date Type Department Care Team Description 10/26/2016 Hospital Encounter Adult & Pediatric Yarely Patel Physical Therapy - VIRA Shahid [address] [id number] [phone] Social History Tobacco Use Types Packs/Day Years [...] Sig Dispensed Refills Start Date End Date ondansetron (ZOFRAN ODT) Take 1 tablet (4 mg 10 tablet 0 11/08/2016 4 MG disintegrating total) by mouth tablet every 8 (eight) hours as needed for up to 7 days for Nausea. acetaminophen (TYLENOL) Take 1,000 mg by 0 11/01/2016 500 MG tablet mouth every 6 (six) hours as needed. ascorbic acid, vitamin Take 500 mg by mouth 0 11/12/2016 C, (VITAMIN C) 500 MG daily. tablet aspirin 325 MG EC tablet Take 1 tablet (325 60 tablet 0 09/16/2017 *ANTIPLATELET* mg total) by mouth 2 times daily for 30 days. aspirin 81 MG EC tablet Take 81 mg by mouth 0 11/01/2016 *ANTIPLATELET* daily. atorvastatin (LIPITOR) Take 20 mg by mouth 0 07/31/2018 20 MG tablet daily. cyclobenzaprine Take 10 mg by mouth 0 04/06/2017 (FLEXERIL) 10 MG tablet [address] 1 drop into 0 019 70/POLYCARBOPHIL/PEG/NAC both eyes as needed. L (ARTIFICIAL TEAR SOLUTION OPHT) docusate sodium (COLACE) Take 1 capsule (100 15 capsule 0 11/12/2016 100 MG capsule mg total) by mouth 2 (two) times daily as needed for Constipation. flecainide (TAMBOCOR) Take 100 mg by mouth 0 04/26/2018 100 MG tablet every 12 hours. hydrocortisone 1 % cream Apply 1 application 0 11/12/2016 topically as needed. LIDOCAINE HCL Apply 1 application 0 (ASPERCREME, LIDOCAINE, topically as needed. TOP) loratadine (CLARITIN) 10 Take 10 mg by mouth 0 11/12/2016 mg tablet daily as needed. meloxicam (MOBIC) 7.5 MG Take 7.5 mg by mouth 0 11/01/2016 tablet daily. metFORMIN (GLUCOPHAGE) Take 500 mg by mouth 0 07/31/2018 500 MG tablet 2 times daily with meals. metoPROLOL tartrate Take 50 mg by mouth 0 08/31/2017 (LOPRESSOR) 50 MG tablet 2 times daily. multivitamin capsule Take 1 capsule by 0 03/01/2021 mouth daily. oxyCODONE (ROXICODONE) 5 Take 1-2 tablets 75 tablet 0 11/0102/22/2017 MG immediate release every 4-6 hrs prn tablet pain traMADol (ULTRAM) 50 mg Take 50 mg by mouth 0 11/01/2016 tablet every 6 (six) hours as needed. vortioxetine Take 10 mg by mouth 0 (TRINTELLIX) 5 mg tablet daily. documented as of this encounter Miscellaneous Notes Therapy Evaluation - Yarely Patel, PT - 10/26/2016 10:12 AM EDT General Outpatient Physical Therapy Evaluation Payor: [facility] MANAGED CARE / Plan: [facility] BLUE OPTIONS PPO / Product Type: PPO / PT Visit Count: 1 Referring Diagnosis: Pre and post op L partial knee replacement Date of Onset: Years Surgery on 11/01/16 Referring Clinician: Miguelito Manuel MD Demographics: Age: 60 y.o. Gender: male History of Present Illness: Pt reports onset of knee pain gradually over years. Notes that he has had 2 rounds of Synvisc injections with little to no relief. Reports partial knee replacement to take place on 11/01/16. Significant Past Medical History: Past Medical History: Diagnosis Date ??? Diabetes mellitus (HCC) ??? Hyperlipemia ??? Hypertension ??? Ruptured appendix ??? Tachycardia Concurrent Services: None Therapy within Past Year: yes - back and knees Medications: Current Outpatient Prescriptions: ??? acetaminophen (TYLENOL) 500 MG tablet, Take 1,000 mg by mouth every 6 (six) hours as needed. , Disp: , Rfl: ??? ascorbic acid, vitamin C, (VITAMIN C) 500 MG tablet, Take 500 mg by mouth daily., Disp: , Rfl: ??? aspirin 81 MG EC tablet *ANTIPLATELET*, Take 81 mg by mouth daily. , Disp: , Rfl: ??? atorvastatin (LIPITOR) 20 [...] every 12 hours., Disp: , Rfl: ??? hydrocortisone 1 % cream, Apply 1 application topically as needed., Disp: , Rfl: ??? LIDOCAINE HCL (ASPERCREME, LIDOCAINE, TOP), Apply 1 application topically as needed., Disp: , Rfl: ??? loratadine (CLARITIN) 10 mg tablet, Take 10 mg by mouth daily as needed. , Disp: , Rfl: ??? meloxicam (MOBIC) 7.5 MG tablet, Take 7.5 mg by mouth daily., Disp: , Rfl: ??? metFORMIN (GLUCOPHAGE) 500 MG tablet, Take 500 mg by mouth 2 times daily with meals. , Disp: , Rfl: ??? metoPROLOL tartrate (LOPRESSOR) 50 MG tablet, Take 50 mg by mouth 2 times daily., Disp: , Rfl: ??? multivitamin capsule, Take 1 capsule by mouth daily., Disp: , Rfl: ??? traMADol (ULTRAM) 50 mg tablet, Take 50 mg by mouth every 6 (six) hours as needed. , Disp: , Rfl: ??? vortioxetine (TRINTELLIX) 5 mg tablet, Take 5 mg by mouth daily., Disp: , Rfl: Allergies: Allergies as of 10/26/2016 - Review Complete 10/17/2016 Allergen Reaction Noted ??? Morphine Anaphylaxis (ALLERGY) 01/31/2016 ??? 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 Notes that both knees are arthritic, but left is worse. Work Status Premorbid: Retired Current: Retired Prior Level of Function: Ambulation Independent ADL's Independent Driving yes - independent Work Status: Premorbid: Retired Current: Retired Current Functional Limitations: Sitting, transfers, standing, stairs, walking, etc. Patient Goals: Pt would like to be able to walk and be active again with no pain. Pain: Pain Assessment Reports: Numerical Pain Score Pain Score 1: 1 (ranges from 0-8/10) Pain Location: Medial L knee Pain Interventions: Therapy to tolerance, See interventions Pain History: Gradual Onset Pain Frequency/Duration: Constant Aggravating Factors: Prolonged standing, Walking, Stairs, Bending, Lifting Relieving Factors: Ice, Heat, Positioning, Medications Clinical Progression: Gradually worsening Home Environment: Pt lives with in Equipment Owned: Front Wheeled Walker and Cane (Straight) Exercise History: N/A OBJECTIVE General Observation: Pt is 60 year old male in NAD. Off loading brace on R knee. Signs of Abuse: none Posture: Standing Deviation Increased thoracic kyphosis and Decreased lumbar lordosis Range of Motion: AROM RLE (degrees) AROM Overall RLE: Within Functional limits with exception R Knee Flexion: 121 degrees R Knee Extension: 0 degrees AROM LLE (degrees) AROM Overall LLE: Within Functional limits with exception PROM LLE (degrees) L Knee Flexion: 109 degrees L Knee Extension: 0 degrees Strength: Strength RLE RLE Overall Strength: Within Functional Limits with Exceptions R Hip Flexion: 4/5 R Hip ABduction: 4/5 R Hip ADduction: 4+/5 R Knee Flexion: 4/5 R Knee Extension: 4/5 R Ankle Dorsiflexion: 4/5 Strength LLE LLE Overall Strength: Within Functional Limits with Exceptions L Hip Flexion: 4/5 L Hip ABduction: 4/5 L Hip ADduction: 4/5 L Knee Flexion: 3/5 L Knee Extension: 3+/5 L Ankle Dorsiflexion: 4-/5 Sensation: Intact per pt report Functional Mobility: Locomotion/Gait/Ambulation: Gait Assistance Level: Independent Assistive Device: None Surface: Level tile Ambulation Deviations: Decreased heel strike - Right, Decreased heel strike- Left, Decreased step length - Right, Decreased step length- Left, Decreased weight shift - Right, Decreased weight shift- Left, Trendelenburg- Left, Wide base of support Special Tests: Refer to outcomes flowsheet [id number] Palpation: Tenderness along medial joint line of L knee Joint Mobility: Diminished with PA's and AP's on L knee Fall Risk Screen: Fall Risk Screen Fall in the last year?: Yes Feel unsteady or off balance?: Yes Gross Motor Coordination: Not Assessed Interventions: Interventions performed as follows: Interventions performed on this visit:: Yes Therapeutic Activities: Educated pt and on what to expect post op. Discussed quad sets and SAQ's to perform if able. Pt will be returning 2 days post-op for PT, so will review all again at that time. Education: Yes, provided as follows: Barriers to Learning: No Barriers Learning Style: Reading information, Demonstration and Pictures Learning Needs: Treatment plan, Rehabilitation techniques and procedures, Pain Management, Safety and Precautions Education Provided: Per learning needs listed above Audience: Patient and significant other Mode: Explanation and Demonstration Financial Sales Assistant Utilized: N/A Response: Verbalized understanding and Demonstrated skill Modalities Skin Integrity Assessment: Non Applicable ASSESSMENT This is a moderate complexity evaluation of a 60 year old male, who is referred to PT pre and post op treatment of L partial knee replacement scheduled for 11/01/16. She presents with decreased ROM and strength in B LE's with L worse than R and increased pain limiting his ability to perform ADL's and participate in activities outside of home. Pertinent prior medical history includes tachycardia, advance OA of R knee and recently diagnosed diabetes. Condition is classified as unstable due to history of tachycardia and new diagnosis of diabetes, both of which may affect tolerance for activity following surgery. Pt also presents with fair rehab potential, evident by willingness to participate in therapy and motivation to improve quickly. Pt requires skilled PT to address these impairments and facilitate progress toward improved functional mobility and return to prior level of function. Therapy Diagnosis: 1. Status post left partial knee replacement 2. Decreased range of motion of left knee 3. Weakness of both lower extremities 4. Gait abnormality Problem List: Problem List Problem List: Pain, Decreased strength, Impaired balance, Impaired activity tolerance, Decreased flexibility, Decreased range of motion, Impaired functional mobility Impaired Functional Mobility: Transfers, Ambulation Equipment Needed: None Other Rehabilitation Considerations: See Rehab Precautions Response to Evaluation: The session was tolerated well, as evidenced by no lasting increases in pain Rehabilitation Potential: Motivation/Commitment to Therapy: Good Rehabilitation Potential: Fair Support Structure: Good Family member willing to assist Goals: Time frame to achieve goal:: 12 [...] will improve Lysholm score to 80/100. PLAN Post partial knee replacement rehab Treatment Frequency, Duration, and Interventions: Plan Treatment Frequency and duration : 1-2 times per week for 12 weeks (PT POC ending 01/18/17) Recommend PT procedures: Gait Training, Electrical Stimulation, Hot/Cold pack, Manual Therapy, Neuromuscular Re-education, Therapeutic Activity, Therapeutic Exercise POC Expiration Date: 01/18/17 Necessity: Required to return to Premorbid environment (or reside in new living environment)? yes Required to reduce ADL or IADL assistance to Premorbid level? yes Skilled Intervention needed: Verbal cues, Tactile cues, Education, Tx Program and Manual Skills Recommended Consults: None currently Development of Plan of Care: Patient and family participated in plan of care development today. Total Treatment Time (Timed & Untimed): 40 minutes Total Time in Timed Codes: 10 minutes The patient has been instructed to contact our clinic if any questions or problems should arise. Electronically signed by: Yarely Patel, PT 10/26/2016 11:11 AM Electronically signed by: Yarely Patel, PT 10/26/16 [id number] documented in this encounter Plan of Treatment Scheduled Referrals Name Type Priority Associated Order Schedule Diagnoses Ambulatory Referral Outpatient Referral Routine Status post le ft 1 Occurrences To Adult Physical partial knee starting 0 10/21/2016 Therapy replacement until 8 documented as of this encounter Visit Diagnoses Diagnosis Status post left partial knee replacemen t - Primary Decreased range of motion of left knee Weakness of both lower extremities Gait abnormality Abnormality of gait documented in this encounter Care Teams County Administrator Relationship Specialty Start Date End Date Chetna Loredo PCP - General Family Medicine 05/19/16 04/13/18 documented as of this encounter
--- OUTSIDE RECORDS SUMMARY | 2021-11-30 11:52 | XMS_ITS | Encounter Summary ---
:1955 Author Organization [facility] [place] [address] Care Team Providers Name Role Phone Chetna Loredo Primary Care Provider Unavailable Reason for Visit Reason Onset Date Comments ami/ YOUSIF vs TOTAL 10/13/2016 Encounter Details Date Type Department Care Team Description 10/13/2016 Telephone Orthopaedics - Miguelito Ash MD hubbard/ YOUSIF vs TOTAL [address] [facility] [address] [place] [address] [phone] [place] [address] Social History Tobacco Use Types Packs/Day Years [...] Telephone Encounter - Kate Og RN - 10/17/2016 2:36 PM EDT Patient evaluated by Susy Martínez PA-C in clinic today and after discussion has decided to proceed with YOUSIF as scheduled on 11-01-16. Will route to Dr. Manuel as FYI. Telephone Encounter - Kate Og RN - 10/14/2016 11:44 AM EDT Phone call to patient confirming 2 patient identifiers. Patient is scheduled for left medial YOUSIF 11-01-[address] Manuel. Patient states after further discussion with family and friends he would like to discuss surgery further with Dr. Manuel. Patient can be reached at [phone] or [phone]. Discussed I will route to Dr. Manuel to return call at his earliest convenience. Patient states appreciation. Telephone Encounter - Jade Abdi - 10/13/2016 3:50 PM EDT Patient calling regarding surgery scheduled for 11/01/2016 L YOUSIF - UNICOMPARTMENTAL KNEE REPLACEMENT- ROBOTIC. Patient stated that he would like to discuss YOUSIF vs TOTAL replacement. Stated he heard not so positive things w/the YOUSIF and wants to make sure he's going down the right path. Please advise documented in this encounter Plan of Treatment Not on filedocumented as of this encounter Visit Diagnoses Not on filedocumented in this encounter Care Teams Skeins Yarn Examiner Relationship Specialty Start Date End Date Chetna Loredo PCP - General Family Medicine 05/19/16 04/13/18 documented as of this encounter
--- OUTSIDE RECORDS SUMMARY | 2021-11-30 11:52 | XMS_ITS | Encounter Summary ---
:1955 Author Organization [facility] [place] [address] Care Team Providers Name Role Phone Chetna Loredo Primary Care Provider Unavailable Reason for Referral Physical Therapy (Routine) - Closed Specialty Diagnoses / Procedures Referred By Contact Refer red To Contact Physical Therapy Diagnoses Arthritis of knee Milan Calvert MD [address] [place] [address] Referral ID Status Reason Start Date Expiration Visits Visits Date Requested Authorized [id number] Closed Evaluation and 11/01/2016 11/01/2017 1 1 Treat hysical Therapy (Routine) - Closed Specialty Diagnoses / Procedures Referred By Contact Refer red To Contact Physical Therapy Diagnoses Primary osteoarthritis of both knees [facility] [place] [address] Referral ID Status Reason Start Date Expiration Visits Visits Date Requested Authorized [id number] Closed Evaluation and 10/17/2016 10/17/2017 1 1 Treat Reason for Visit Physical Therapy (Routine) - Closed Specialty Diagnoses / Procedures Referred By Contact Refer red To Contact Physical Therapy Diagnoses Primary [place] [address] Referral ID Status Reason Start Date Expiration Visits Visits Date Requested Authorized [id number] Closed Evaluation and 10/17/2016 10/17/2017 1 1 Treat Encounter Details Date Type Department Care Team Description 11/03/2016 Hospital Encounter Adult & Pediatric Yarely Patel Physical Therapy - VIRA Shahid [address] [address] [phone] Social History Tobacco Use Types Packs/Day Years [...] for up to 7 days for Nausea. ascorbic acid, vitamin Take 500 mg by mouth 0 11/12/2016 C, (VITAMIN C) 500 MG daily. tablet aspirin 325 MG EC tablet Take 1 tablet (325 60 tablet 0 09/16/2017 *ANTIPLATELET* mg total) by mouth 2 times daily for 30 days. atorvastatin (LIPITOR) Take 20 mg by mouth [...] 0 11/12/2016 mg tablet daily as needed. metFORMIN (GLUCOPHAGE) Take 500 mg by mouth 0 07/31/2018 500 MG tablet 2 times daily with meals. metoPROLOL tartrate Take 50 mg by mouth 0 08/31/2017 (LOPRESSOR) 50 MG tablet 2 times daily. multivitamin capsule Take 1 capsule by 0 03/01/2021 mouth daily. oxyCODONE (ROXICODONE) 5 Take 1-2 tablets 75 tablet 0 11/0102/22/2017 MG immediate release every 4-6 hrs prn tablet pain vortioxetine Take 10 mg by mouth 0 (TRINTELLIX) 5 mg tablet daily. documented as of this encounter Miscellaneous Notes Therapy Visit - Daily Note - Yarely Patel, PT - 11/03/2016 11:44 AM EDT Physical Therapy Daily Note Payor: [facility] MANAGED CARE / Plan: [facility] [employer] PPO / Product Type: PPO / PT Visit Count: 2 Referring Diagnosis: Primary osteoarthritis of both knees [M17.0] L partial knee replacement Rehabilitation Precautions/Restrictions: Precautions/Restrictions Precautions: Tachycardia, diabetes, R knee problems, DDD in lumbar spine SUBJECTIVE Patient Report: PT reports that he is doing okay after surgery though he has had a hard time with anesthesia wearing off. Notes that he has been icing and his is picking up pain medication while he is in therapy. Pain: Pain Assessment Reports: Numerical Pain Score Pain Score 1: 6 Pain Location: L knee Pain Interventions: Therapy to tolerance, See interventions OBJECTIVE General Observation/Objective Findings: Pt in NAD. Ambulates with front wheeled walker and wearing compression hose. Range of Motion: AROM LLE (degrees) AROM Overall LLE: Within Functional limits with exception L Knee Flexion: 64 degrees in supine L Knee Extension: -8 degrees from neutral in supine Interventions: Interventions performed as follows: Interventions performed on this visit:: Yes Therapeutic Exercises: Instructed pt in glut and quad strengthening in supine. Provided and reviewedwritten exercises for pt to perform at home. All to improve ROM and strength for return to PLOF. Modalities Skin Integrity Assessment: Non Applicable Education: as described in interventions Education provided: Verbal, Demonstration and Written/hand out Level of understanding: Independent and Needs review ASSESSMENT Therapy Diagnosis: 1. Status post left partial knee replacement 2. Primary osteoarthritis of both knees 3. Arthritis of knee 4. Decreased range of motion of left knee 5. Weakness of both lower extremities 6. Gait abnormality Response to Visit/Summary: Pt here for follow up for L partial knee replacement. He tolerated session well with only minimal increase in pain. Doing well considering only 2 days post-op. 64 degrees of flexion and -8 degrees of extension. Toelrated all exercises well with only minimal need for assist with SLR and SAQ. PT and pt discussed HEP and continuing PT for 2 times per week. Pt continues to require skilled physical therapy intervention to address impairments in ROM and strength to facilitate progress toward improved function. Skilled Intervention needed: Verbal cues, Tactile cues, Education, Tx Program, Protocol Progression and Manual Skills Pain Reassessment: Pain Rating 7/10 Progress Towards Goals: Time frame to achieve goal:: 12 [...] score to 80/100. PLAN Progression needed: Continue with strengthening and ROM of L knee Treatment Frequency, Duration, and Interventions: Plan Treatment Frequency and duration : 1-2 times per week for 12 weeks (PT POC ending 01/18/17) Recommend PT procedures: Gait Training, Electrical Stimulation, Hot/Cold pack, Manual Therapy, Neuromuscular Re-education, Therapeutic Activity, Therapeutic Exercise Recommended Consults: None currently Development of Plan of Care: Patient participated in plan of care development today. Total Treatment Time (Timed & Untimed): 35 minutes Total Time in Timed Codes: 30 minutes The patient has been instructed to contact our clinic if any questions or problems should arise. Electronically signed by: Yarely Patel, PT 11/03/2016 11:44 AM Electronically signed by: Yarely Patel, PT 11/03/16 1245 documented in this encounter Plan of Treatment Scheduled Referrals Name Type Priority Associated Diagnoses [facility] Routine Primary osteoarthritis As Ne eded for 1 Ambulatory Referral of both knees Occurrences Referral to PT starting (Pre and Post Op) 11/03/2016 until 11/03/2016 Ambulatory Outpatient Routine Arthritis of knee As Needed for 1 Referral To Adult Referral Occurrence s Physical Therapy starting 11/03/2016 unti l 11/03/2016 documented as of this encounter Visit Diagnoses Diagnosis Status post left partial knee replacemen t - Primary Primary osteoarthritis of both knees Arthritis of knee Unspecified arthropathy, lower leg Decreased range of motion of left knee Weakness of both lower extremities Gait abnormality Abnormality of gait documented in this encounter Care Teams Corporate Legal Intern Relationship Specialty Start Date End Date Chetna Loredo PCP - General Family Medicine 05/19/16 04/13/18 documented as of this encounter
--- OUTSIDE RECORDS SUMMARY | 2021-11-30 11:52 | XMS_ITS | Encounter Summary ---
:1955 Author Organization Replaced By [facility] [place] [address] Care Team Providers Name Role Phone Chetna Loredo Primary Care Provider Unavailable Reason for Referral MRI/CT/PET Scan (Routine) - Closed Specialty Diagnoses / Procedures Referred By Contact Refer red To Contact Radiology Diagnoses Spondylosis of lumbar region without myelopathy or radiculopathy DDD (degenerative disc disease), lumbar Chetan Whitaker NP [facility] Mri Imaging Procedures MR SPINE LUMBAR WO CONTRAST [address] [address] [place] [address] Referral ID Status Reason Start Date Expiration Date Visits Requ ested Visits Authorized [id number] Closed 09/08/2016 11/08/2017 1 1 Reason for Visit Reason Onset Date Comments Efremov//PT 09/07/2016 Encounter Details Date Type Department Care Team Description 09/07/2016 Telephone Spine Center - [facility] Chetan Qureshi NP Efremov//PT [address] [facility] [address] [place] [address] [place] [address] (Wo rk) Social History Tobacco Use Types [...] Telephone Encounter - Liss Lamb RN - 09/13/2016 10:51 AM EDT Notified patient that unfortunately patient's insurance has denied the MRI and that per Max, he willneed to complete the full 6 weeks of PT and then be re- evaluated. Patient stated that he had gone through one day of PT and it took him three days of laying on a heating pad to recover from that one day. I explained that he needs to communicate with his therapist if he knows that there are specific exercises that are causing him more pain. If he cannot pin point which exercises are increasing his pain and he is steadily having more pain, I have instructed him to call our office and make an appointment to come back in and be evaluated. Patient voiced understanding of all instruction and agrees with plan. Electronically signed by: Liss Lamb RN 09/13/16 0729 Telephone Encounter - Liss Lamb RN - 09/08/2016 10:04 AM EDT Patient notified that Max is recommending that he have an MRI done of his lumbar spine. Number for MRI schedulers given to patient to schedule MRI prior to pt f/u w/ Max on 09/28. Patient voiced understanding of all instruction and agrees with plan. Electronically signed by: Liss Lamb RN 09/08/16 1017 Telephone Encounter - Chetan Whitaker NP - 09/08/2016 9:34 AM EDT Would recommend MRI of lumbar spine then Electronically signed by: Chetan Whitaker NP 09/08/16 0938 Telephone Encounter - Emma Benito - 09/07/2016 10:59 AM EDT Patient is calling in and stating that physical therapy is not helping him at all. Would like medical advice. Please contact and advise. Thank you. documented in this encounter Plan of Treatment Scheduled Orders Name Type Priority Associated Diagnoses Order S chedule MR SPINE LUMBAR WO Imaging Routine Spondylosis of lumbar Expected: 09/09/2016, CONTRAST region without myelopathy Ex angie: 11/06/2017 or radiculopathy DDD (degenerative disc disease), lumbar documented as of this encounter Visit Diagnoses Diagnosis Spondylosis of lumbar region without mye lopathy or radiculopathy - Primary DDD (degenerative disc disease), lumbar Degeneration of lumbar or lumbosacral in tervertebral disc documented in this encounter Care Teams Collections Agent Relationship Specialty Start Date End Date Chetna Loredo PCP - General Family Medicine 05/19/16 04/13/18 documented as of this encounter
--- OUTSIDE RECORDS SUMMARY | 2021-11-30 11:52 | XMS_ITS | Encounter Summary ---
:1955 Author Organization [facility] [place] [address] Care Team Providers Name Role Phone Chetna Loredo Primary Care Provider Unavailable Reason for Referral Physical Therapy (Routine) - Closed Specialty Diagnoses / Procedures Referred By Contact Refer red To Contact Physical Therapy Diagnoses Status post left partial knee replacement Miguelito Manuel MD [facility] Physical Therapy [address] [place] [address] [address] [place] [address] Fax: Referral ID Status Reason Start Date Expiration Visits Visits Date Requested Authorized [id number] Closed Evaluation and 10/21/2016 10/21/2017 1 1 Treat Encounter Details Date Type Department Care Team Description 10/21/2016 Orders Only Adult & Pediatric Miguelito Manuel MD Status post left Physical Therapy - [address] part[place] l knee [facility] replacement (Primary [address] [place], [place] Dx) [place] [address] [phone] Social History Tobacco Use Types Packs/Day Years [...] left partial knee replacemen t - Primary documented in this encounter Care Teams Floor Plan Adjuster Relationship Specialty Start Date End Date Chetna Loredo PCP - General Family Medicine 05/19/16 04/13/18 documented as of this encounter
--- OUTSIDE RECORDS SUMMARY | 2021-11-30 11:52 | XMS_ITS | Encounter Summary ---
:1955 Author Organization [facility] [place] [address] Care Team Providers Name Role Phone Chetna Loredo Primary Care Provider Unavailable Reason for Visit Reason Onset Date Comments TJR Pre Op Call 10/20/2016 Encounter Details Date Type Department Care Team Description 10/20/2016 Telephone Orthopaedics - Alysha Gutierrez TJR Pre Op Call [address] [facility] [address] [facility] [place] [address] [place] [address] [place] [address] Social History Tobacco Use Types [...] this encounter Miscellaneous Notes Telephone Encounter - Alysha Sewell RN - 10/31/2016 11:41 AM EDT Spoke with patient and confirmed two patient identifiers.Patient called with questions concerning Physical therapy. Had questions concerning medications and reviewed AVS with patient.States understanding. Electronically signed by: Alysha Sewell RN 10/31/16 1150 Telephone Encounter - Alysha Sewell RN - 10/20/2016 10:30 AM EDT Spoke with patient and confirmed two patient identifiers.Patient having Left unicompartmental knee replacement.11/01/2016 DR Miguelito Manuel. Patient has CHG soaps and will begin showers 2 days ahead and day of. DME; Has opted not to purchase Bedside commode.Looking for walker with 2 heels and will bring to hospital day of surgery.Will call back to confirm that has walker. PT; Wants to have in [place] . Number is [phone] and faxed over orders to [phone]. Patient to call today to set up Pre and post op therapy.Will call back to confirm PT Appointment. Joint Replacement Telephone Navigation Dario Mckeon 60 y.o. Education/DME Pre-op education: Booklet Review Pre-op education fully completed?: Yes Pre-op shower reminder (received CHG soap & understands instructions): Yes DME: Walker with 2 wheels Discharge Plan Discharge Location: Home Caregiver name: Teagan Smith Contact number: [phone] Venapro: No Physical Therapy Pre-Op PT Evaluation Comments: [facility] Post-Op PT Appointment Comment: [facility] MRSA/MSSA MRSA/MSSA result?: Negative Call Information Pre-Op Call Complete?: Yes Alysha Sewell RN October 20, 2016 10:39 AM Electronically signed by: Alysha Sewell RN 10/20/16 1043 documented in this encounter Plan of Treatment Not on filedocumented as of this encounter Visit Diagnoses Not on filedocumented in this encounter Care Teams Lean Facilitator Relationship Specialty Start Date End Date Chetna Loredo PCP - General Family Medicine 05/19/16 04/13/18 documented as of this encounter
--- OUTSIDE RECORDS SUMMARY | 2021-11-30 11:52 | XMS_ITS | Encounter Summary ---
:1955 Author Organization [facility] [place] [address] Care Team Providers Name Role Phone Chetna Loredo Primary Care Provider Unavailable Encounter Details Date Type Department Care Team Description 2016 Telephone Orthopaedics - Kate Hankins [address] [facility] [address] [place] [address] [place] [address] [facility] [address] Social History Tobacco Use [...] Telephone Encounter - Kate Og RN - 2016 5:48 PM EDT Opened in error. documented in this encounter Plan of Treatment Not on filedocumented as of this encounter Visit Diagnoses Not on filedocumented in this encounter Care Teams Benefits Counselor Relationship Specialty Start Date End Date Chetna Loredo PCP - General Family Medicine 05/19/16 04/13/18 documented as of this encounter
--- OUTSIDE RECORDS SUMMARY | 2021-11-30 11:52 | XMS_ITS | Encounter Summary ---
:1955 Author Organization [facility] [place] [address] Care Team Providers Name Role Phone Chetna Loredo Primary Care Provider Unavailable Reason for Visit Reason Onset Date Comments miguel angel-knee pain 07/05/2016 Encounter Details Date Type Department Care Team Description 07/05/2016 Telephone Orthopaedics - Nasir Abrams PA-C miguel angel-knee pain 329 [facility] [address] [place] [address] [address] [place] [id number] [address] [place] [address] [phone] (Wo rk) Social History Tobacco Use Types [...] this encounter Miscellaneous Notes Telephone Encounter - George Sharpe - 07/05/2016 1:53 PM EDT Pt called and scheduled with Nasir Vega 4..[address] Telephone Encounter - Radha Barrett CMA - 07/05/2016 1:33 PM EDT Attempted to call patient, no answer. If patient calls back, please offer an appointment with Nasir or Susy Martínez PA-C. Thanks. Electronically signed by: Radha Barrett CMA 07/05/16 1334 Telephone Encounter - Lane Boggs - 07/05/2016 11:02 AM EDT Pt had the synvisc 3 series in both knees in May. Pt states the R knee is doing ok, but he is still having a lot of problems with the L knee. States it is not getting any better. Please advise. documented in this encounter Plan of Treatment Not on filedocumented as of this encounter Visit Diagnoses Not on filedocumented in this encounter Care Teams Boiler Mechanic Relationship Specialty Start Date End Date Chetna Loredo PCP - General Family Medicine 05/19/16 04/13/18 documented as of this encounter
--- OUTSIDE RECORDS SUMMARY | 2021-11-30 11:52 | XMS_ITS | Encounter Summary ---
:1955 Author Organization [facility] [place] [address] Care Team Providers Name Role Phone Chetna Loredo Primary Care Provider Unavailable Reason for Referral Consultation (Routine) - Closed Specialty Diagnoses / Procedures Referred By Contact Refer red To Contact Sleep Medicine Diagnoses Sleep concern [facility] [address] [place] [phone] Referral ID Status Reason Start Date Expiration Date Visits V isits Requested Authorized [id number] Closed Specialty 10/13/2016 10/13/2017 1 1 Services Required Encounter Details Date Type Department Care Team Description 10/13/2016 Orders Only Preoperative Helen Kan R N Sleep concern (Primary Assessments - [facility] Dx) [address] [phone] (Work) [phone] Social History Tobacco Use Types Packs/Day Years [...] Schedule Diagnoses Ambulatory Referral Outpatient Referral Routine Sleep concern 1 Occurrences To Sleep Clinic starting until 8 documented as of this encounter Visit Diagnoses Diagnosis Sleep concern - Primary documented in this encounter Care Teams Outdoor Advertising Leasing Agent Relationship Specialty Start Date End Date Chetna Loredo PCP - General Family Medicine 05/19/16 04/13/18 documented as of this encounter
--- OUTSIDE RECORDS SUMMARY | 2021-11-30 11:52 | XMS_ITS | Encounter Summary ---
:1955 Author Organization [facility] [place] [address] Care Team Providers Name Role Phone Chetna Loredo Primary Care Provider Unavailable Reason for Visit Reason Onset Date Comments TJ-post-op call 2016 Encounter Details Date Type Department Care Team Description 2016 Telephone Orthopaedics - Kate Hankins TJ-post-op call 329 [facility] [address] [place] [address] [place] [address] [place] [address] Social History Tobacco Use Types [...] Telephone Encounter - Iraida Briggs RN - 11/08/2016 3:12 PM EDT Pt called, two pt identifiers confirmed. Pt advised that he should place dry dressing on area after shower. Pt verbalized understanding and has no further needs at this time. Electronically signed by: Iraida Briggs RN 11/08/16 3464 Telephone Encounter - Kristel Nye - 11/08/2016 3:08 PM EDT Patient calling back with a question regarding his bandage change. Patient is wanting to know if he needs to put gauze bandage on before or after he showers. Please call to advise. Telephone Encounter - BERNARD Jimenez - 11/07/2016 4:53 PM EDT Spoke to patient about dressing change and gauze and tape to buy. All questions answered and patientstated understanding. Electronically signed by: BERNARD Dunbar 11/07/2016 4:57 PM Electronically signed by: BERNARD Jimenez 11/07/16 4336 Telephone Encounter - Lane Boggs - 11/07/2016 4:49 PM EDT Patient has an additional question regarding his bandage change. He knows he is to change it tomorrow, but is not sure of the size of the gauze he should use or if there is a certain brand. Patient needs to change the bandage tomorrow. Telephone Encounter - Kate Og RN - 2016 5:50 PM EDT Patient is 3 days post-op left unicompartmental replacement with YOUSIF [place] implants size 6 on thefemur, size 6 on the tibia and 8 mm polyethylene using computer guidance and robotic assistance and open medial patellar facetectomy 11-01-16. Confirmed 11-15-16 follow-up with Susy Martínez PA-C at [facility]. Instructed to return call to the office with any questions/concerns or change in symptoms prior to scheduled follow-up. Patient states appreciation. Joint Replacement Telephone Follow-Up Dario Mckeon 61 y.o. Discharge Date: 11-02-16. Surgery Surgery Type: Left Knee Surgery Date: 11/01/16 Blood Thinner Medication: Aspirin Are you taking it correctly?: Yes Any adverse reactions?: No Any signs of DVT?: No Using YAMILET hose?: Yes Blood Thinner-Comment: Patient is taking Aspirin 325 mg twice per day as prescribed. Patient is wearing yamilet hose as instructed. Discussed directions for use. Discussed signs and symptoms of DVT to monitor for such as calf pain, calf swelling, or calf tightness. Discussed he should contact office immediately at first onset of symptoms for doppler or go to ER for doppler if after hours or on the weekends. Discussed if he develops chest pain or shortness of breath she should immediately seek evaluationin ER. Incision Are you washing it daily? (with dressing change) : See comment What is appearance of incision?: Aquacel dressing intact over incision. Any Drainage or Fever?: No drainage Dressing Changes: Other Using Aquacel?: Yes Incision-Comment: Discussed Aquacel dressing should be removed 11-09-16. Discussed to replace with dry dressing and change daily. Discussed to monitor incision when doing dressing change. Discussed to immediately contact office if knee is hot to touch, if he develops redness at incision site, fever, purulent drainage or drainage that has a foul odor, or increase in pain or swelling. Discussed importance of keeping incision site clean and dry. Discussed no lotions, creams, or ointments on or around incision. Discussed no submerging operative knee in still water such as bath or pool until at least 6-8weeks post-op. Pain Pain Medication: Oxycodone Is your pain adequately controlled?: Yes Pain-Comment: Currently rates pain at 4 out of 10 in left knee. Patient states his pain is well managed with Oxycodone. Discussed ok to supplement Oxycodone with OTC Acetaminophen as directed (not to exceed 3000 mg in 24 hours). Discussed no NSAIDS. Discussed importance of icing and elevating operative extremity. Bowels Are your bowels moving normally?: Yes Bowels-Comment: Patient reports having bowel movement today. Taking Miralax in conjunction with Oxycodone to help prevent constipation. Physical Therapy Are things progressing well?: Yes Is Home Health coming as arranged?: See comment Are you having Outpatient Physical Therapy?: As scheduled PT-Comment: Ambulating well with walker. Started outpatient physical therapy yesterday. Satisfaction Are you satisfied with the care you received?: Yes Are you satisfied with the Rehab (PT/OT) care you received?: Yes Is there anything we could have done differently?: No Kate Og RN 2016 6:02 PM documented in this encounter Plan of Treatment Not on filedocumented as of this encounter Visit Diagnoses Not on filedocumented in this encounter Care Teams Foam Rubber Molder Relationship Specialty Start Date End Date Chetna Loredo PCP - General Family Medicine 05/19/16 04/13/18 documented as of this encounter
--- OUTSIDE RECORDS SUMMARY | 2021-11-30 11:52 | XMS_ITS | Encounter Summary ---
:1955 Author Organization [facility] [place] [address] Care Team Providers Name Role Phone Chetna Loredo Primary Care Provider Unavailable Reason for Referral MRI/CT/PET Scan (Routine) - Closed Specialty Diagnoses / Procedures Referred By Contact Refer red To Contact Radiology Diagnoses Arthritis of knee Miguelito Manuel MD [address] Imaging Procedures CT LOWER EXTREMITY LEFT (YOUSIF PROTOCOL) [address] [place] [address] [address] [place] [address] Phone: Fax: Referral ID Status Reason Start Date Expiration Date Visits Requ ested Visits Authorized [id number] Closed 10/04/2016 12/02/2016 1 1 Reason for Visit Reason Comments Left Knee Problem 60 yo male ambulatory to [facility] without aids. Presents today as referral from Nasir George for left knee pain. Reports gradual onset of left knee pain a co uple of years ago, denies injury or trauma. Reports increasing l eft knee pain over the last year. Reports mostly anterior medi al left knee pain with associated catching, locking, and poppi ng. Has tried conservative treatment including physical therapy a nd bilateral knee Synvisc injections with steroid injection 16- 17. Encounter Details Date Type Department Care Team Description 08/26/2016 Office Visit Orthopaedics - Miguelito Ash MD Arthritis of knee [address] [facility] [address] (Primary Dx) [facility] [place] [address] [place] [address] [place] [address] Social History Tobacco Use Types Packs/Day Years [...] Sign Reading Time Taken Comments Blood Pressure 114/68 08/26/2016 9:19 AM EDT Pulse 60 08/26/2016 9:19 AM EDT Temperature 36.4 ??C (97.6 ??F) 08/26/2016 9:19 AM EDT Respiratory Rate - - Oxygen Saturation - - Inhaled Oxygen Concentration - - Weight 117.9 kg (260 lb) 08/26/2016 9:19 AM EDT Height 180.3 cm (5' 11) 08/26/2016 9:19 AM EDT Body Mass Index 36.26 08/26/2016 9:19 AM EDT documented in this encounter Functional [...] encounter Progress Notes Miguelito Manuel MD - 08/26/2016 9:00 AM EDT Reason for Visit: Presents today for evaluation of anterior medial left knee pain with associated swelling, catching, locking, and popping. Referring physician- Nasir MENG. Previous knee surgical history- No prior knee surgery. Injury? Reports gradual onset of left knee pain a couple of years ago, denies injury or trauma. Reports increasing pain over the last year. H/o DVT? Denies. Previous imaging- Xray- Bilateral knees 04-25-16 CONCLUSION: Right knee: 1. No acute fracture or malalignment. 2. Small joint effusion. 3. Mild lateral, moderate medial and patellofemoral compartment degenerative changes. Left knee: 1. No acute fracture or malalignment. 2. Trace joint effusion. 3. Mild lateral, moderate medial and patellofemoral compartment degenerative changes. MRI- Left knee 08-08-16 CONCLUSION: 1. Complex tear of the medial meniscus with extrusion. 2. Tricompartmental degenerative changes, worst in the medial compartment with large areas of full-thickness cartilage loss. 3. Small knee joint effusion with synovitis tracking along the course of the popliteal tendon sheath. 4. Small leaking Kraus cyst. Brace? Has tried over the counter brace to left knee. Injections? Completed 3 series Synvisc injections bilateral knees with steroid 06-02-16 with improvement in knee pain for 1 week following injections. States this was second round of Synvisc injections,reports improvement in knee pain following first round of Synvisc. PT? Has completed course of physical therapy. 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 Dario Mckeon 60 y.o. HPI: Pain began several years ago, but worse over the past year. The onset was gradual, no recent injury/trauma, remote history of direct blow injury to anterior knee 30-40 years ago The patient has not been using a brace and has not been protecting weightbearing and modifying activity accordingly. The patient has had synvisc injections (2 courses), cortisone injection and has had physical therapy. The patient has had a recent MRI. The patient has Medial sided pain that is associated with catching, popping and swelling. It is worse with squatting and better with rest. The pain is not retropatellar and is worse going up and down stairs and hills. He has not felt some instability and is not complaining of an effusion. Other symptoms include left knee pain and lower back pain. He has been able to bear weight. Past Medical History: Diagnosis Date ??? Diabetes mellitus (HCC) ??? Hyperlipemia ??? Ruptured appendix ??? Tachycardia [...] the ROS are negative. Updated Medication List: acetaminophen (TYLENOL) 500 MG tablet Sig - Route: Take 1,000 mg by mouth every 6 (six) hours as needed. - Oral Class: Historical Med ascorbic acid, vitamin C, (VITAMIN C) 500 MG tablet Sig - Route: Take 500 mg by mouth daily. - Oral Class: Historical Med aspirin 81 MG EC tablet *ANTIPLATELET* Sig - Route: Take by mouth daily. - Oral Class: Historical Med atorvastatin (LIPITOR) 20 MG tablet Sig - Route: Take 20 mg by mouth daily. - Oral Class: Historical Med cyclobenzaprine (FLEXERIL) 10 MG tablet Sig - Route: Take 10 mg by mouth 3 (three) times daily as needed for Muscle spasms. - Oral Class: Historical Med flecainide (TAMBOCOR) 100 MG tablet Sig - Route: Take 100 mg by mouth every 12 hours. - Oral Class: Historical Med loratadine (CLARITIN) 10 mg tablet Sig - Route: Take 10 mg by mouth daily. - Oral Class: Historical Med meloxicam (MOBIC) 7.5 MG tablet Sig - Route: Take 7.5 mg by mouth daily. - Oral Class: [...] ONETOUCH ULTRA TEST Strp Class: Historical Med ONETOUCH ULTRAMINI kit Class: Historical Med traMADol (ULTRAM) 50 mg tablet Sig - Route: Take 50 mg by mouth every 6 (six) hours as needed. - Oral Class: Historical Med Vitals: 08/26/16 0919 BP: 114/68 Pulse: 60 Temp: 97.6 ??F (36.4 ??C) PainSc: 4-Four (moderate) Comment: left knee Height: 1.803 m (5' 11) Weight: 117.9 kg (260 lb) BMI (Calculated): 36.3 Physical Exam: Patient is alert, awake and oriented Normal and painless cervical spine range of motion Exam General: NAD Chest: clear bilaterally Heart: RRR Abdomen: soft Hips: Symmetric ROM, no groin pain with flexion or rotation. No TTP laterally. Examination of left knee: Skin is intact. No swelling. Large varicosities anteriorly over knee and tibia. Previous skin incisions are absent. Effusion is trace. ROM 0-120 degrees. Guarding is absent. Pain behavior is absent. The patient does have arthritic crepitus and pain. The patient does not have pain and mechanical symptoms consistent with a medial plica. The patient does not have bony tenderness to palpation. Patient has Medial joint line tenderness. Vladimir test is negative Emili >5 mm, medium endpoint. Ligamentous exam is stable Quad strength is normal. Normal straight leg raise. There is not a palpable defect in the extensor mechanism. Distal ankle and foot strength is normal. The patient walks with mildly antalgic gait. Overall limb alignment is neutral Patella tracks moderately. J sign: negative. There is not lateral retinacular pain. There is not pain associated with resisted quad testing. Patellofemoral compression yields negative crepitus and negative pain. No calf swelling or palpable cord. Negative calf squeeze test. Compartments are soft, no pain with passive stretch. NVI. Pulses 2+. No lymphedema. Contralateral knee exam - ROM 0-130 degrees. Stable to varus and valgus stress. Stable anterior/posterior exam. Normal strength and sensation distally. Xray- independently reviewed with patient - medial joint space narrowing, degenerative changes MRI - independently reviewed with patient - medial meniscus tearing with extrusion. Assessment: 60yo male with chronic let knee pain and advanced medial compartment osteoarthritis. Now failing conservative management. Plan: Patient does have severely symptomatic arthritis of the medial compartment of the left knee and we spent a long time discussing unicompartmental knee replacement. The knee ligaments are stable and ROM is acceptable to consider this option. We discussed risks, benefits and alternatives. Risks include anesthetic risks such as , infection, stiffness, pain, damage to nerves or vessels, need for further surgery, pain associated with implants, wearing out of implants, failure to achieve desired results, fracture, subsidence, cosmetic changes, swelling. Alternatives include physical therapy, oral medications, bracing, continued injections. Medical risks such as heart attack, pneumonia, pulmonary embolism, blood clots among others also exist. We discussed that it is very likely that the patient has a component of arthritis elsewhere in the knee. Even though it is not overly symptomatic at this point, it may become more symptomatic downthe road. Revision surgery to add another partial knee replacement or to a total knee replacement may be indicated, and may not be as reliable or durable as a primary total knee replacement. We also discussed the possibility of needing follow-up athroscopy, to remove loose bodies such as cement pieces, or treat meniscus pathology in the habematolel part of the knee. Arthroscopy after this surgery is much more common than after total knee replacement. We discussed alternatives to treatment including weight loss, physical therapy, daily exercises and oral medications. We discussed that deteriorization is a risk with this treatment. This will also be a component of the post-operative routine. I use computer navigation and robotic assistance for this surgery and I discussed the associated risks of this, including pin site drainage, possible fracture. Because of weight and body habitus and age, he is at increased risk for wearing out of the components and other medical and surgical complications. We discussed a 1-2 day hospital stay and 3-6 months rehabilitation process is the norm. We discussed that he may need future surgery down the road, including possibly a revision to total knee replacement. The patient expressed understanding, and that there are no guarantees with surgery. After a thorough discussion of the risks, benefits and alternatives to surgery, a decision for surgery was made and informed consent was obtained. Plan for left medial YOUSIF on 11/01/2016 at [facility] - If symptoms worsen or new symptoms develop such as worrisome features of DVT, like calf swelling, the patient is encouraged to seek medical attention immediately. Electronically signed by: Doni Gordon MD, Orthopedic Surgery Sports Medicine Fellow, [facility] 08/26/2016 12:30 PM Electronically signed by: Miguelito Manuel MD 08/26/16 1407 documented in this encounter Plan of Treatment Scheduled Orders Name Type Priority Associated Order Schedule Diagnoses Case request operating Procedures Routine Arthritis of knee 1 Occurrences room: YOUSIF - starting 2016 UNICOMPARTMENTAL KNEE until 02/26/2017 REPLACEMENT - ROBOTIC documented as of this encounter Results CT LOWER EXTREMITY LEFT (YOUSIF PROTOCOL) (10/17/2016 1:53 PM EDT) Anatomical Region Laterality Modality Computed Tomography Specimen (Source) Anatomical Collection Method Collection Time Re ceived Time Location / / Volume Laterality 10/17/2016 2:46 PM EDT Impressions 10/17/2016 3:28 PM EDT No unexpected findings. Narrative 10/17/2016 3:[address] LEFT LOWER EXTREMITY (YOUSIF PROTOCOL), 10/17/2016 1:53 PM INDICATION: ??M17.10 Arthritis of knee COMPARISON: Routine mammogram of the kne es dated 05/05/2016 and MR of the left knee dated 08/08/2016 TECHNIQUE: Thin-section images of the le ft lower extremity were obtained without contrast using the YOUSIF Protocol. Supplemental 2D reformatted images were generated and reviewed as needed. [facility] and its affiliates are committed to minimizing radiation dose to patients while maintaining necessary diagnostic image quality. All CT scans are therefore performed using As Low As Reasonably Achievable ( ALARA) protocols with either manual or automated exposure controls calibrated to the age and size of each patient. FINDINGS: Hip: There is mild degenerative changes of the left hip. Knee: There is tricompartmental osteoart hritis with mild patellofemoral and lateral compartment degenerative changes and moderate medial compartment degenerative changes.There is a small Kraus's cyst. Ankle: Incidental note of a os trigonum. Other comments:Incidental note of a fat- containing inguinal hernia as well as prostate calcifications. Incidental note of vascular calcifications as well as varicose veins. Procedure Note Santiago Cuba MD - 10/17/2016Fo rmatting of this note might be different from the original. CT LEFT LOWER EXTREMITY (YOUSIF PROTOCOL), 10/17/2016 1:53 PM INDICATION: M17.10 Arthritis of knee COMPARISON: Routine mammogram of the kne es dated 05/05/2016 and MR of the left knee dated 08/08/2016 TECHNIQUE: Thin-section images of the le ft lower extremity were obtained without contrast using the YOUSIF Protocol. Supplemental 2D reformatted images were generated and reviewed as needed. [facility] and its affiliates are committed to minimizing radiation dose to patients while maintaining necessary diagnostic image quality. All CT scans are therefore performed using As Low As Reasonably Achievable (ALARA) pr otocols with either manual or automated exposure controls calibrated to the age and size of each patient. FINDINGS: Hip: There is mild degenerative changes of the left hip. Knee: There is tricompartmental osteoart hritis with mild patellofemoral and lateral compartment degenerative changes and moderate medial compartment degenerative changes.There is a small Kraus's cyst. Ankle: Incidental note of a os trigonum. Other comments:Incidental note of a fat- containing inguinal hernia as well as prostate calcifications. Incidental note of vascular calcifications as well as varicose veins. CONCLUSION: No unexpected findings. Miguelito Manuel MD IMG CT ORDERABLES (ABNORMAL) Hemoglobin A1C (08/29/2016 12:49 PM EDT) P athologist Signature HEMOGLOBIN A1C 6.1 (H) <5.7 % 08/29/2016 [facility] 3:08 PM EDT [facility] Comment: Normal: ? Less than 5.7% Prediabetes: ??5.7% to 6.4% Diabetes: ? Greater than 6.4% eAG 128 MG/DL 08/29/2016 3:08 PM EDT [facility] [place] [facility] eAG Comment 08/29/2016 3:08 PM EDT [place] [facility] [employer] [facility] Comment: The [place] [employer] on has supported the use [...] / Volume Laterality Blood specimen Venipuncture / 08/29/2016 12:49 017 (specimen) Unknown PM EDT 12:49 PM EDT Miguelito Manuel MD LAB BLOOD ORDERABLES Performing Organization Address City/State/ZIP Code Phon e Number [facility] CLIA# [id number] [place] [address] [facility] Ines documented in this encounter Visit Diagnoses Diagnosis Arthritis of knee - Primary Unspecified arthropathy, lower leg Arthritis of knee Unspecified arthropathy, lower leg documented in this encounter Care Teams Pitching Coach Relationship Specialty Start Date End Date Chetna Loredo PCP - General Family Medicine 05/19/16 04/13/18 documented as of this encounter
--- OUTSIDE RECORDS SUMMARY | 2021-11-30 11:52 | XMS_ITS | Encounter Summary ---
:1955 Author Organization [facility] [place] [address] Care Team Providers Name Role Phone Chetna Loredo Primary Care Provider Unavailable Reason for Visit Auth/Cert Specialty Diagnoses / Procedures Referred By Contact Refer red To Contact Diagnoses Unilateral primary osteoarthritis, left knee Arthritis of knee [M17.10] Procedures UT PLASTY KNEE,MED OR LAT COMPARTMT UT ARTHROPLASTY PATELLA UT ROBOTIC SURGICAL SYSTEM YOUSIF - UNICOMPARTMENTAL KNEE REPLACEMENT - ROBOTIC Referral ID Status Reason Start Date Expiration Date Visits Requ ested Visits Authorized [id number] 1 1 Encounter Details Date Type Department Care Team Description 11/01/2016 Anesthesia Event Outpatient Surgical [place] [address] [place] [address] [place] [address] Anesthesia Record Procedure Summary Procedure Name Responsible Anesthesia Start Anesthesia Stop Anesthesiologist Time Time MEDIAL YOUSIF Herrmann MD 11/01/16 [phone] UNICOMPARTMENTAL KNEE REPLACEMENT - ROBOTIC (Left Knee) Events Date Time Event Comment 11/01/2016 0631 0704 An Start 0704 An Start Data 0709 An Induction 0711 An Intubation 0715 Anesthesia Ready 0741 Incision Time 0746 An Tourn Inflated Tourniquet up 300mmhg 0846 Quick Note tourniquet time 60 minutes- increased 30 additional minutes 0853 an maegan now Closure begins 0919 An Tourn Deflated 92 minutes 0922 An Emergence tof 4/4 tetany w ithout fade suctioned 0926 An Extubation Follows simple c ommands extubated to recovery room awake and doing well 0929 an stop data 0933 An Stop Name Total Midazolam (VERSED) 1 mg/mL 2 mg Fentanyl 0.05 mg/mL 250 mcg Lidocaine (XYLOCAINE) (cardiac) 2 % 80 mg Propofol Bolus 10 mg/ml 250 mg Rocuronium 10 mg/mL 50 mg ceFAZolin (ANCEF) 2 g EPHEDrine injection 10 mg Glycopyrrolate 0.2 mg/mL 0.8 mg neostigmine 5 mg ondansetron 2 mg/mL 4 mg Lactated Ringers 1,600 mL Agents Name Sevoflurane O2 N2O Air Blood No blood administrations on file. Lines, Drains, and Airways Type Details Placement Removal Peripheral IV 01/31/16; 1241; 20 G; 01/31/16 1241 by Geri 1224 by Minda Right; Antecubital; BERNARD Haynes RN Alcohol; None; Tolerated well; Yes; Sent for analysis Peripheral IV 18 G; Left; Hand; No; 11/01/16 0638 by 11/02/16 1224 by Minda Alcohol; None; Tolerated Felecia rowe RN well; (FBS 103) ETT 11/01/16; 0711 (created 11/01/16 0711 by My 0927 by My via procedure ANCELMO Peres C RNA documentation); 7.0; Oral; 21; Easy; No; Carl; 2; 1 Incision 11/01/16; 0905; Knee; 11/01/16 0905 by Kristel 1224 by Minda Left; xeroform, dressing BERNARD Monaco RN sponges, abd, kerlix, margaret bandage, ice pack; 11/02/16; 1224 documented in this encounter Social History Tobacco [...] encounter OR Notes Anesthesia Postprocedure Evaluation - Gio Herrmann MD - 11/01/2016 9:54 AM EDT Anesthesia Post Evaluation Patient: Dario Mckeon Procedures performed: Procedure(s) (LRB): MEDIAL YOUSIF - UNICOMPARTMENTAL KNEE REPLACEMENT - ROBOTIC (Left) Last vitals: Vitals: 11/01/16 0635 11/01/16 0928 11/01/16 0930 11/01/16 0945 BP: 114/70 121/62 112/58 Pulse: 60 81 72 67 Temp: 98.8 ??F (37.1 ??C) (!) 96.6 ??F (35.9 ??C) Resp: 16 16 13 SpO2: 96% 95% 93% 96% PainSc: 5-Five (moderate) Final Anesthetic Type: General Patient Evaluation Location: PACU Patient Participation: Patient participated Level of Consciousness: awake and alert and oriented Pain Score: pain well controlled (patient comfortable/resting) Pain Management: adequately controlled during entire PACU stay Nausea/Vomiting: None Post-op vitals signs: Stable Post op temperature: Normothermic Cardiovascular Status: hemodynamically stable Respiratory Status: Stable, O2 nasal cannula, spontaneous Postoperative Hydration: adequately hydrated Post op disposition: [facility] Anesthetic Complications: no anesthesia complications noted Electronically signed by: Gio Herrmann MD 11/01/16 0955 Anesthesia Procedure Notes - My Tompkins CRNA - 11/01/2016 7:42 AM EDT Associated Order(s): ANESTHESIA AIRWAY Anesthesia Airway Date/Time: 11/01/2016 7:11 AM Urgency: elective Airway not difficult General Information and Staff Patient location during procedure: OR Resident/RANGE CONSERVATIONIST: MY TOMPKINS Performed by: resident/RANGE CONSERVATIONIST Indications and Patient Condition Indication for airway management: anesthesia Preoxygenated: yes Patient position: sniffingRapid sequence induction: NoNoManual in-line stabilization not maintained throughout. Mask difficulty assessment: 1 - easy ventilation by mask Final Airway Details Final airway type: endotracheal airway Endotracheal tube type: ETT Successful intubation technique: direct laryngoscopy Facilitating devices/methods: none Endotracheal tube insertion site: oral Blade: Carl Blade size: #2 ETT size: 7.0 mm Cuffed: yes View (Cormack Lehane grade): grade I - visualization of entire laryngeal aperture Placement verified by: chest auscultation/breath sounds equal bilaterally and capnometry/+EtCO2 Cuff volume (mL): 4 Measured from: gums ETT to gums (cm): 21 Number of attempts at approach: 1 Number of other approaches attempted: 0 Additional Comments Pre o2 smooth iv induction 2 handed mask ventilation with oral airway 90mm placed -easy mask ventilation - direct laryngoscopy times one with carl #2 - positive bilateral breath sounds ETCO2 secured 21 gums Electronically signed by: My Tompkins CRNA 11/01/16 0746 Anesthesia Preprocedure Evaluation - Gio Herrmann MD - 11/01/2016 6:30 AM EDT DAY OF SURGERY PREOPERATIVE EVALUATION Dario Mckeon ( ) : 1955 PROCEDURE PLANNED He is a 60 y.o. male scheduled for a Procedure(s) (LRB): YOUSIF - UNICOMPARTMENTAL KNEE REPLACEMENT - ROBOTIC (Left). PLAN/ATTENDING ATTESTATION PLAN: ASA Score: 3 Maintenance plan options discussed:general/ETT Induction: IV Post Op Plan: Extubation in OR and Outpatient PACU ATTESTATION: By signing, I attest that I have identified and re-evaluated the patient immediately before the induction of anesthesia and I am satisfied that my anesthetic plan is suitable for the patient's condition and procedure. Any physical exam findings recorded in this note have been performed and confirmed by me. Other providers may have contributed to writing this note. I attest that I have confirmed and agree with all elements of this note unless I have specified otherwise. Please see Revision History to see contributions entered by other providers. Electronically signed by: Gio Herrmann MD 11/01/16 0630 documented in this encounter Miscellaneous Notes Transfer of Care - My Tompkins CRNA - 11/01/2016 9:34 AM EDT PACU NOTE:in recoverty room awake an ddoing well o2 saturation 95% on 2 l nasal cannula 112/58 report to rn Electronically signed by: My Tompkins CRNA 11/01/16 0935 [facility] Pre-procedure H&P - Vasquez Leyva NP - 10/17/2016 12:05 PM EDT [facility] H[facility]P EVALUATION Encounter Date: 10/17/16 PROCEDURE PLANNED Dario Mckeon ([id number]) is a 60 y.o. male 114 kg,ASA 3 scheduled for a Procedure(s) (LRB): YOUSIF - UNICOMPARTMENTAL KNEE REPLACEMENT - ROBOTIC (Left) on 11/01/2016 with Surgeon(s): Miguelito Manuel MD. HPI:60 yo male with DO I SNORE SCORE 5,DM,HTN,tachycardia and Arthritis of knee scheduled for YOUSIF -UNICOMPARTMENTAL KNEE REPLACEMENT - ROBOTIC (Left Knee) ASSESSMENT AND PLAN Anesthesia History:Pt denies a personal or known Fm Hx of AC.NOTE:DO I SNORE SCORE 5 Surgical History: Past Surgical History: Procedure Laterality Date ??? APPENDECTOMY Assessment of Medical Problems: Patient Active Problem List Diagnosis ??? Primary osteoarthritis of both knees ??? Bilateral chronic knee pain-scheduled for YOUSIF - UNICOMPARTMENTAL KNEE REPLACEMENT - ROBOTIC (Left Knee). BMP,CBC,HgbA1c ordered by surgeon.Type and screen done in PAC ??? Chronic midline low back pain without sciatica ??? Primary osteoarthritis of left knee ??? DDD (degenerative disc disease), lumbar ??? Spondylosis of lumbar region without myelopathy or radiculopathy ??? Arthritis of knee ??? Type 2 diabetes mellitus without complication (HCC)-per pt average a.m. glucose 130.HgbA1c ordered by surgeon.Instructed to hold diabetic meds DOS.GFSBS DOS ??? Essential hypertension-BMP and EKG done in PAC.Instructed to take BB as usual. ??? Tachycardia-BMP and EKG done in PAC.Instructed to take BB and Flecainide as usual.Instructed to take aspirin as usual.Per pt last event in 2009. Pt states had an unsuccessful ablation.Outside records requested. Anesthesia Plan/Consents: ASA Score: 3 Potential Anesthesia Risks: Other/comment (DO I SNORE SCORE 5) Maintenance plan options discussed: general and MAC Patient educated about: NPO status and Medications on the morning of surgery Anesthesia Consent: Plan discussed with patient. Blood product consent: Use of blood products discussed with patient. Consented to blood products. PAC Attestation: Patient has been instructed to bring photo id the day of surgery, remain NPO after MN except for clear liquids 4 hours prior to arrival time, and to call for interval change mandating surgery cancellation. Supervised by of mandy Leyva NP 10/17/2016 12:11 PM Electronically signed by: Vasquez Leyva NP 10/17/2016 12:10 PM HISTORY/ROS/OBJECTIVE Active Problem list: Patient Active Problem List Diagnosis Date Noted ??? Type 2 diabetes mellitus without complication (HCC) 10/17/2016 ??? Essential hypertension 10/17/2016 ??? Tachycardia 10/17/2016 ??? Arthritis of knee 08/26/2016 ??? DDD (degenerative disc disease), lumbar 08/17/2016 ??? Spondylosis of lumbar region without myelopathy or radiculopathy 08/17/2016 ??? Chronic midline low back pain without sciatica 07/28/2016 ??? Primary osteoarthritis of left knee 07/28/2016 ??? Primary osteoarthritis of both knees 04/25/2016 ??? Bilateral chronic knee pain 04/25/2016 Past Medical History: Past Medical History: Diagnosis Date ??? Diabetes mellitus (HCC) ??? Hyperlipemia ??? Hypertension ??? Ruptured appendix ??? Tachycardia Social History: Social History Substance Use Topics ??? Smoking status: Former Smoker Types: Cigarettes Quit date: 04/16/1989 ??? Smokeless tobacco: Not on file ??? Alcohol use Yes Comment: occassionally Family History: Family History Problem Relation Age of Onset ??? Hypertension Mother ??? Diabetes Father ??? Heart disease Father ??? Stroke Neg Hx ROS: Constitutional: Positive for no fever, no chills, no weight loss. Skin: Positive for no itching, no rash. HENT: Positive for no headaches, no congestion, no nosebleeds, no sore throat, no stridorand. Genitourinary: Positive for no dysuria, no urgency, no frequency, no hematuria. Eyes: Positive for no blurred vision, no double vision, no pain, no discharge, no eye redness. Cardiovascular: Exercise Tolerance: 4 METS Positive for no chest pain, no palpitations, no orthopnea. Additional comments: Walks in house and yard.Grocery shops.Push mows lawn.Limited due to knee pain.Denies chest pain/SOB Respiratory: Positive for no cough, no shortness of breath, no wheezing. Gastrointestinal: Positive for heartburn. Positive for no nausea, no vomiting, no abdominal pain. Additional comments: occ GERD Musculoskeletal: Positive for joint pain. Positive for no myalgias, no back pain, no neck pain. Endo/Heme/Allergies: Does not bruise/bleed easily. Neurological: Positive for no dizziness, no tingling, no tremors, no seizures. Vitals: Vitals: 10/17/16 1154 BP: 118/73 Pulse: 66 SpO2: 96% Weight: 114.8 kg (253 lb) Comment: weight done today at [facility] per patient Height: 1.803 m (5' 11) Physical Exam: Constitutional: well-developed, well-nourished, Airway: Mallampati Score: II TM Distance (FB): 3 Oral Aperture (FB): 3 Face: normal Neck: full ROM Dental: Teeth problems: [place] dentition with several missing and chipped. Neck: normal range of motion, Cardiovascular: Normal rate, regular rhythm, normal heart sounds. Pulmonary/Chest: Effort normal and breath sounds normal. no wheezes, Abdominal: soft, bowel sounds are normal, HENT: nose normal, atraumatic, normocephalic, Musculoskeletal: Normal range of motion. Skin: Skin is warm and dry. Neurological: Alert, oriented to person, place, and time, Eyes: pupils are equal, round, and reactive to light, ; Psychiatric: Has a normal mood and affect. Behavior is normal. Judgment and normal thought content normal. Allergies: Allergies Allergen Reactions ??? Morphine Anaphylaxis (ALLERGY) ??? Sulfamethoxazole Anaphylaxis (ALLERGY) Medications: Current Outpatient Prescriptions: ??? acetaminophen (TYLENOL) [...] mg by mouth daily., Disp: , Rfl: Labs: Lab Results Component Value Date WBC 10.8 (H) 01/31/2016 HGB 12.0 (L) 01/31/2016 HCT 37.2 (L) 01/31/2016 PLT 248 01/31/2016 Lab Results Component Value Date NA 136 01/31/2016 K 3.7 01/31/2016 CL 104 01/31/2016 CO2 24 01/31/2016 CREATININE 0.91 01/31/2016 GLU 151 (H) 01/31/2016 CALCIUM 8.5 (L) 01/31/2016 PROT 7.1 01/31/2016 ALBUMIN 3.5 01/31/2016 BILITOT 1.0 01/31/2016 AST 18 01/31/2016 ALT 20 01/31/2016 Lab Results Component Value Date HBA1C 6.1 (H) 08/29/2016 No results found for: INR No results found for: TSH Electronically signed by: Vasquez Leyva NP 10/17/16 1216 documented in this encounter Plan of Treatment Pending Results Name Type Priority Associated Diagnoses Date/Ti me Anesthesia Block UT Charge Routine 11/01/2016 7:46 AM EDT documented as of this encounter Procedures Procedure Name Priority Date/Time Associated Diagnosis Comme nts ANESTHESIA ETT Routine 11/01/2016 7:46 AM EDT Procedure Note - My burgos CRNA - 11/01/2016 7:42 AM EDTThis note is in progress. Formatting of this note migh t be different from the original. Anesthesia Airway Date/Time: 11/01/2016 7:11 AM Urgency: elective Airway not difficult General Information and Staf f Patient location during proc edure: OR Resident/RANGE CONSERVATIONIST: MY TOMPKINS Performed by: resident/RANGE CONSERVATIONIST Indications and Patient Cond ition Indication for airway manage ment: anesthesia Preoxygenated: yes Patient position: sniffingRa pid sequence induction: NoNoManual in-line stabilization not maintained throughout. Mask difficulty assessment: 1 - easy ventilation by mask Final Airway Details Final airway type: endotrach eal airway Endotracheal tube type: ETT Successful intubation techni que: direct laryngoscopy Facilitating devices/methods : none Endotracheal tube insertion site: oral Blade: Carl Blade size: #2 ETT size: 7.0 mm Cuffed: yes View (Cormack Lehane grade): grade I - visualization of entire laryngeal aperture Placement verified by: chest auscultation/breath sounds equal bilaterally and capnometry/+EtCO2 Cuff volume (mL): 4 Measured from: gums ETT to gums (cm): 21 Number of attempts at approa ch: 1 Number of other approaches a ttempted: 0 Additional Comments Pre o2 smooth iv induction 2 handed mask ventilation with oral airway 90mm placed -easy mask ventilation - direct laryngoscopy times one with carl #2 - positive bilateral breath sounds ETCO2 secured 21 gums Electronically signed by: Farida Tompkins CRNA 11/01/16 0746 documented in this encounter Visit Diagnoses Not on filedocumented in this encounter Administered Medications Inactive Administered Medications - up to 3 most recent administrations Medication Order MAR Action Action Date Dose Rate Site ceFAZolin (ANCEF) injection Given 11/01/2016 7:13 AM EDT 2 g Intra-op PRN, Intravenous, Starting on Mon11/01/16 at 0713, Anesthesia Intra-op ePHEDrine injection Given 11/01/2016 7:15 AM EDT 10 mg Intra-op PRN, Starting on Mon11/01/16 at 0715, Anesthesia Intra-op fentaNYL (SUBLIMAZE) 50 mcg/mL injection Given 11/01/2016 9:30 AM EDT 50 mcg Intra-op PRN, Intravenous, Starting on Mon11/01/16 at 0708, Anesthesia Intra-op Given 11/01/2016 9:14 AM EDT 50 mcg Given 11/01/2016 8:43 AM EDT 50 mcg glycopyrrolate (ROBINUL) injection Given 11/01/2016 9:11 AM EDT 0.8 mg Intra-op PRN, Secretions, Starting on Mon11/01/16 at 0911, Anesthesia Intra-op lactated ringers infusion New Bag 11/01/2016 8:06 AM EDT Intra-op continuous PRN, Starting on Mon11/01/16 at 0704, Anesthesia Intra-op New Bag 11/01/2016 7:04 AM EDT lidocaine (cardiac) (XYLOCAINE) 100 mg/5 mL (2 Given 0 11/01/2016 7:09 AM EDT 80 mg %) injection Intra-op PRN, Starting on Mon11/01/16 at 0709, Anesthesia Intra-op midazolam (VERSED) injection Given 11/01/2016 7:03 AM EDT 2 mg Intra-op PRN, Starting on Mon11/01/16 at 0703, Anesthesia Intra-op neostigmine (BLOXIVERV) injection Given 11/01/2016 9:11 AM EDT 5 mg Intra-op PRN, Intravenous, Starting on Mon11/01/16 at 0911, Anesthesia Intra-op ondansetron (ZOFRAN) injection Given 11/01/2016 8:59 AM EDT 4 mg Intra-op PRN, Starting on Mon11/01/16 at 0859, Anesthesia Intra-op propofol (DIPRIVAN) bolus 10 mg/mL Given 11/01/2016 7:10 AM EDT 50 mg Intra-op PRN, Intravenous, Starting on Mon11/01/16 at 0709, Anesthesia Intra-op Given 11/01/2016 7:09 AM EDT 200 mg rocuronium (ZEMURON) injection Given 11/01/2016 7:49 AM EDT 10 mg Intra-op PRN, Starting on Mon11/01/16 at 0709, Anesthesia Intra-op Given 11/01/2016 7:09 AM EDT 40 mg documented in this encounter Care Teams Cleaning And Washing Equipment Operator Relationship Specialty Start Date End Date Chetna Loredo PCP - General Family Medicine 05/19/16 04/13/18 documented as of this encounter
--- OUTSIDE RECORDS SUMMARY | 2021-11-30 11:52 | XMS_ITS | Encounter Summary ---
:1955 Author Organization [facility] [place] [address] Care Team Providers Name Role Phone Chetna Loredo Primary Care Provider Unavailable Encounter Details Date Type Department Care Team Description 08/09/2016 Telephone Orthopaedics - Nasir Abrams PA-C [address] [place] [facility] [address] [place] [address] [address] [place] [address] [phone] (Wo rk) Social History Tobacco Use Types [...] this encounter Miscellaneous Notes Telephone Encounter - Ruba Story Monday - 08/09/2016 10:37 AM EDT Called patient to verify appointment time of 08.26.16 @ 9am. Patient was appreciative of appointmenttime and date. Sent patient an appointment reminder letter. Telephone Encounter - Jade Abdi - 08/09/2016 8:52 AM EDT ruba Telephone Encounter - Kate Og RN - 08/09/2016 8:42 AM EDT Will route to the [facility] for scheduling. Please offer appointment 08-26-16 at [address] Manuel at [facility] (slot held for patient). Thank you! Telephone Encounter - Nasir Vega PA-C - 08/09/2016 8:03 AM EDT Please set up surgical consult, next available Dr Manuel to discuss knee arthroscopy, left message on cell phone MRI LEFT KNEE WITH CONTRAST, 08/08/2016 12:13 PM ?? INDICATION: ??KNEE PAIN, PERSISTENT, >=[id number] Primary osteoarthritis of left knee M54.5 Chronic midline low back pain without sciatica G89.29 Chronic midline low back pain without sciatica COMPARISON: 04/25/2016 radiographs ?? TECHNIQUE: Multi-planar, multi-sequence MR imaging of the left knee was performed without contrast. ?? FINDINGS: ?? . ??Bone: No fracture, avascular necrosis, or marrow replacement. Degenerative subchondral marrow change within the peripheral aspects of the medial femoral condyle and medial tibial plateau. . ??Cruciate ligaments: Intact. . ??Collateral ligaments: Intact. . ??Medial meniscus: Complex tear at the junction of the posterior horn and body (series 6 images 10-14) with extrusion. . ??Lateral meniscus: Intact. . ??Medial compartment: Areas of full-thickness cartilage loss along the weightbearing portions medial femoral condyle and medial tibial plateau. . ??Lateral compartment: Small focal areas of full-thickness cartilage loss along the weightbearing portions lateral femoral condyle and lateral tibial plateau. . ??Patellofemoral compartment: Focal areas of full-thickness cartilage loss along the lateral patellar facet and lateral trochlea. Background partial thickness cartilage loss. . ??Extensor mechanism: Intact. . ??Joint: No malalignment. Small knee joint effusion and synovitis. Small proximal tibiofibular joint effusion. Intermediate signal noted along the course of the popliteal tendon sheath consistent with synovitis. . ??Soft tissues: Small leaking Kraus cyst. Extensive subcutaneous soft tissue varicosities. Small multiloculated cystic structure along the posterior aspect of the PCL consistent with a ganglion cyst. ? Impression ? 1. ??Complex tear of the medial meniscus with extrusion. 2. ??Tricompartmental degenerative changes, worst in the medial compartment with large areas of full-thickness cartilage loss. 3. ??Small knee joint effusion with synovitis tracking along the course of the popliteal tendon sheath. 4. ??Small leaking Kraus cyst. Electronically signed by: Nasir Vega PA-C 08/09/16 0806 documented in this encounter Plan of Treatment Not on filedocumented as of this encounter Visit Diagnoses Not on filedocumented in this encounter Care Teams Ocean Export Coordinator Relationship Specialty Start Date End Date Chetna Loredo PCP - General Family Medicine 05/19/16 04/13/18 documented as of this encounter
--- OUTSIDE RECORDS SUMMARY | 2021-11-30 11:52 | XMS_ITS | Encounter Summary ---
:1955 Author Organization [facility] [place] [address] Care Team Providers Name Role Phone Chetna Loredo Primary Care Provider Unavailable Encounter Details Date Type Department Care Team Description 08/29/2016 Lab Visit Lab Services - [facility] Arthritis of knee [address] [place] [address] Social History Tobacco Use Types Packs/Day Years [...] Associated Diagnosis Comme nts HEMOGLOBIN A1C Routine 08/29/2016 12:49 PM Arthritis of knee R esults for this EDT procedure are i n the results section . documented in this encounter Results (ABNORMAL) Hemoglobin A1C (08/29/2016 12:49 PM EDT) athologist Signature HEMOGLOBIN A1C 6.1 (H) <5.7 % 08/29/2016 [facility] 3:08 PM EDT [facility] Comment: Normal: ? Less than 5.7% Prediabetes: ??5.7% to 6.4% Diabetes: ? Greater than 6.4% eAG 128 MG/DL 08/29/2016 3:08 PM EDT [facility] eAG Comment 08/29/2016 3:08 PM EDT [facility] Comment: The [place] [employer] on has supported the use [...] Organization Address City/State/ZIP Code Phon e Number [facility] CLIA# [id number] [place] [address] [facility] documented in this encounter Visit Diagnoses Diagnosis Arthritis of knee Unspecified arthropathy, lower leg documented in this encounter Care Teams Industrial Pharmacist Relationship Specialty Start Date End Date Chetna Loredo PCP - General Family Medicine 05/19/16 04/13/18 documented as of this encounter
--- OUTSIDE RECORDS SUMMARY | 2021-11-30 11:52 | XMS_ITS | Encounter Summary ---
:1955 Author Organization [facility] [place] [address] Care Team Providers Name Role Phone Chetna Loredo Primary Care Provider Unavailable Encounter Details Date Type Department Care Team Description 11/10/2016 Hospital Encounter Adult & Pediatric [facility] - MEGAN Beatty [facility] [address] [place] [id number] [phone] Social History Tobacco Use Types Packs/Day Years [...] Start Date End Date ascorbic acid, vitamin Take 500 mg by [...] Visit - Daily Note - Chi Jackson, [employer] - 11/10/2016 11:59 PM EDT Physical Therapy Daily Note Payor: [facility] / Plan: [facility] [employer] PPO / Product Type: PPO / PT Visit Count: 4 Referring Diagnosis: L partial knee replacement Rehabilitation Precautions/Restrictions: Precautions/Restrictions Precautions: Tachycardia, diabetes, R knee problems, 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 He reports he had some swelling on the lateral side, but that is isn't too bad today. Pain: Pain Assessment Reports: Numerical Pain Score Pain Score 1: 2 Pain Location: L knee Pain Interventions: Therapy to tolerance, See interventions OBJECTIVE General Observation/Objective Findings: Pt arrived to PT in NAD, no AD, wearing compression hose, and ambulating with slightly flexed left knee, no LOB. Interventions: Interventions performed as follows: Interventions performed on this visit:: Yes Therapeutic Exercises: See Flow sheet. Therapeutic ex to increase LE ROM, strength, flexibility, andfunctional mobility. Other: CP to left knee x 10 min post ex in long sitting to decrease pain, inflammation, and swelling. Modalities Skin Integrity Assessment: Modalities Performed per interventions above. Patient was informed of risks and benefits to treatment today. Skin integrity prior to treatment: Intact. Skin [...] to PT for follow up visit for L partial knee replacement. Pt is cont HEP with no problems and continues with good AROM knee flexion (96 degrees). Pt is able to perform SLR with good quad contraction and no extensor lag. Pt was progressed with therapeutic ex and responded well with no increased pain or adverse effects. Pt cont to improve and would benefit from cont skilled PT to increase LE ROM, strength, endurance, flexibility, and functional mobility. Skilled Intervention needed: Verbal cues, Tactile cues and Protocol Progression Pain Reassessment: Pain Rating 1/10 Progress Towards Goals: Progressing with L knee AROM and decreased pain level with activity. Time frame to achieve goal:: 12 weeks [...] 40 min Total Time in Timed Codes: 35 min The patient has been instructed to contact our clinic if any questions or problems should arise. Electronically signed by: Chi Jacksno PTA 11/11/2016 4:52 AM Electronically signed by: Chi Jackson PTA 11/11/16 0503 documented in this encounter Plan of Treatment Not on filedocumented as of this encounter Visit Diagnoses Diagnosis Primary osteoarthritis of both knees - P rimary Arthritis of knee Unspecified arthropathy, lower leg Status post left partial knee replacemen t Decreased range of motion of left knee Weakness of both lower extremities Gait abnormality Abnormality of gait documented in this encounter Care Teams Schedule Checker Relationship Specialty Start Date End Date Chetna Loredo PCP - General Family Medicine 05/19/16 04/13/18 documented as of this encounter
--- OUTSIDE RECORDS SUMMARY | 2021-11-30 11:52 | XMS_ITS | Encounter Summary ---
:1955 Author Organization [facility] [place] [address] Care Team Providers Name Role Phone Chetna Loredo Primary Care Provider Unavailable Reason for Visit Auth/Cert Specialty Diagnoses / Procedures Referred By Contact Refer red To Contact Diagnoses Unilateral primary osteoarthritis, left knee Arthritis of knee [M17.10] Procedures [place] PLASTY KNEE,MED OR LAT COMPARTMT [place] ARTHROPLASTY PATELLA [place] ROBOTIC SURGICAL SYSTEM YOUSIF - UNICOMPARTMENTAL KNEE REPLACEMENT - ROBOTIC Referral ID Status Reason Start Date Expiration Date Visits Requ ested Visits Authorized [id number] 1 1 Encounter Details Date Type Department Care Team Description 10/17/2016 Hospital Encounter Preoperative Assessments Hubb Miguelito nixon MD - [address] [id number] [phone] (Wo rk) Anesthesia Record Procedure Summary Procedure Name Responsible [...] 0929 an stop data 0933 An Stop No medications on file. Agents [...] 1224 by Minda Left; xeroform, dressing BERNARD Monaco, BERNARD sponges, abd, kerlix, margaret bandage, ice pack; [...] Sign Reading Time Taken Comments Blood Pressure 118/73 10/17/2016 11:54 AM EDT Pulse 66 10/17/2016 11:54 AM EDT Temperature - - Respiratory Rate - - Oxygen Saturation 96% 10/17/2016 11:54 AM EDT Inhaled Oxygen - - Concentration Weight 114.8 kg (253 lb) 10/17/2016 11:54 AM weight don e today at EDT Vladislav stone Height 180.3 cm (5' 11) 10/17/2016 11:54 AM EDT Body Mass Index 35.29 10/17/2016 11:54 AM EDT documented in this encounter Functional [...] as of this encounter Discharge Instructions Discharge InstructionsThgem Leyva NP - 10/17/2016 11:55 AM EDT PREOPERATIVE PAC HOME INSTRUCTIONS 1. Dietary restrictions for relatively healthy older children and adults: DO NOT EAT OR DRINK ANYTHING AFTER MIDNIGHT, THIS INCLUDES MILK PRODUCTS If advised by the preoperative assessment staff, it is acceptable for older children and adults to have CLEAR LIQUIDS up until 4 hours prior to your arrival time for surgery. Clear Liquids may include:water, pulp-free apple juice, clear unsweetened tea or BLACK coffee. Older children and adults may take recommended medication with small sips of WATER up to 4 hours prior to anticipated arrival for surgery. Specific medication instructions are as follows: Current Medications - Follow these instructions in preparation for your surgery Medication Sig Extra Info ??? acetaminophen (TYLENOL) 500 MG tablet Take 1,000 mg by mouth every 6 (six) hours as needed. Do not take day of surgery ??? ascorbic acid, vitamin C, (VITAMIN C) 500 MG tablet Take 500 mg by mouth daily. Do not take day of surgery ??? aspirin 81 MG EC tablet *ANTIPLATELET* Take 81 mg by mouth daily. Take as usual ??? atorvastatin (LIPITOR) 20 MG tablet Take 20 mg by mouth daily. Take as usual ??? cyclobenzaprine (FLEXERIL) 10 MG tablet Take 10 mg by mouth 2 times daily. Take as usual ??? DEXT 70/POLYCARBOPHIL/PEG/NACL (ARTIFICIAL TEAR SOLUTION OPHT) Place 1 drop into both eyes as needed. Take as usual ??? flecainide (TAMBOCOR) 100 MG tablet Take 100 mg by mouth every 12 hours. Take as usual ??? hydrocortisone 1 % cream Apply 1 application topically as needed. Do not take day of surgery ??? LIDOCAINE HCL (ASPERCREME, LIDOCAINE, TOP) Apply 1 application topically as needed. Do not take day of surgery ??? loratadine (CLARITIN) 10 mg tablet Take 10 mg by mouth daily as needed. Take as usual ??? meloxicam (MOBIC) 7.5 MG tablet Take 7.5 mg by mouth daily. Stop 5 days before surgery ??? metFORMIN (GLUCOPHAGE) 500 MG tablet Take 500 mg by mouth 2 times daily with meals. Do not take day of surgery ??? metoPROLOL tartrate (LOPRESSOR) 50 MG tablet Take 50 mg by mouth 2 times daily. Take as usual ??? multivitamin capsule Take 1 capsule by mouth daily. Do not take day of surgery ??? traMADol (ULTRAM) 50 mg tablet Take 50 mg by mouth every 6 (six) hours as needed. Take as usual ??? vortioxetine (TRINTELLIX) 5 mg tablet Take 5 mg by mouth daily. Take as usual 2. Other instructions: Bring photo ID with you on the day of surgery. 3. DO NOT eat candy/mints, chew gum or use tobacco or snuff the morning of surgery. You should brushyour teeth and rinse your mouth (just don???t swallow the water). 4. If you make a mistake and eat or drink, please tell us. For your safety you may be rescheduled. 5. If you develop a cold, fever, stomach ache, diarrhea, or other illness, tell your surgeon right away. For your safety you may be rescheduled. Call to report your illness. 6. DO NOT wear makeup or nail finnish. Eye makeup, especially, can cause problems if if gets in your eyes while you are asleep. You may bring makeup with you and apply it after you are awake. Wear loose, comfortable clothing. DO NOT wear jewelry, not even your wedding bands. 7. Let us know if you wear contacts, hearing aids, false teeth, or other such things so that we may better care for you during surgery. 8. Don???t plan on doing anything important the day of or the day after you operation. The effects of many of our anesthesia drugs go away very slowly. You will be drowsy hours after anesthesia (even longer for some people). For these reasons, you MUST NOT drive a car, work with machinery, or sign anyimportant papers for at least 24 hours. This is obviously for your safety and the safety of those around you. 9. THE DAY OF YOUR SURGERY YOU must arrange for a responsible adult to accompany you home and provide transportation. You must have someone with you to care for you for 24 HOURS AFTER YOUR SURGERY. We will not begin your operation unless a responsible adult is with you. Small children must have two people with them. 10. We may need to admit you to the hospital after your operation if we feel that it is safest and best for you. 11. If you have any questions that come up after you leave today, please call your surgeon, or you may call us at , 7:00 a.m. to 3:00 p.m. . If you have a problem that cannot wait, call the hospital alkylation operator at and ask for the anesthesiologist conditioner tumbler operator for call . PLEASE BRING ALL OF YOR MEDICATIONS WITH YOU, INCLUDING EYE DROPS AND INHALERS, ON THE DAY OF SURGERY. documented in this encounter Medications at Time [...] Date/Time Associated Diagnosis Comme nts CARDIOLOGY SCAN 10/17/2016 6:43 PM Result s for this EDT procedure are i n the results section. TYPE AND SCREEN Routine 10/17/2016 12:46 Primary osteoarthriti s Results for this PM EDT of left knee procedure are i n the results section. EKG - PERFORMED BY Routine 10/17/2016 12:22 Primary osteoarthr itis Results for this NURSING PM EDT of left knee procedure are i n the results section. documented in this encounter Results CARDIOLOGY SCAN (10/17/2016 6:43 PM EDT) Narrative This result has an attachment that is no t available. Default Authenticator [employer] SCANNED DOCUMENTS Type and Screen (10/17/2016 12:46 PM EDT) P athologist Signature ABO Group [facility] Rh Typing POS 10/17[facility] [facility] Antibody Screen NEG 10/17/[facility] [facility] Specimen Anatomical Collection Method / Collection Time Recei ericka Time (Source) Location / Volume Laterality Blood specimen Venipuncture / 10/17/2016 12:46 017 (specimen) Unknown PM EDT 12:46 PM EDT Vasquez Leyva NP BLOOD BANK TEST ORDERABLES Performing Organization Address City/State/ZIP Code Phon e Number [facility] [place] [address] [facility] CLIA# [id number] [facility] [place] EKG - Performed by Nursing (10/17/2016 12:22 PM EDT) Specimen Anatomical Collection Method Collection Time Receive d Time (Source) Location / / Volume Laterality 10/17/2016 12:22 10/17/2016 6:40 PM EDT PM EDT Narrative MUSE - 10/17/2016 6:40 PM EDT Ventricular Rate ? 63 ?BPM ? Atrial Rate ?63 ?BPM ? P-R Interval ? 182 ? ms ? QRS Duration ? 110 ? ms ? Q-T Interval ? 446 ? ms ? QTC ?456 ? ms ? P Hull ? 12 ?degrees ? R Hull ? -31 ? degrees ? T Hull ? 22 ?degrees ? Sinus rhythm Left axis deviation Otherwise within normal limits No previous ECGs available Confirmed by DR. ERON WPiyush Monsalve ([id number]) on 6:40:19 PM Procedure Note Jose Littlejohn MD - 10/17/2016F ormatting of this note might be different from the original. Ventricular Rate 63 BPM Atrial Rate 63 BPM P-R Interval 182 ms QRS Duration 110 ms Q-T Interval 446 ms QTC 456 ms P Hull 12 degrees R Hull -31 degrees T Hull 22 degrees Sinus rhythm Left axis deviation Otherwise within normal limits No previous ECGs available Confirmed by DR. Narcisa LITTLEJOHN ([id number]) on 6:40:19 PM Vasquez Leyva NP ECG SPECIAL Performing Organization Address City/State/ZIP Code Phon e Number MUSE documented in this encounter Visit Diagnoses Diagnosis Primary osteoarthritis of left knee - Pr imary documented in this encounter Care Teams Manager Salt Relationship Specialty Start Date End Date Chetna Loredo PCP - General Family Medicine 05/19/16 04/13/18 documented as of this encounter
--- OUTSIDE RECORDS SUMMARY | 2021-11-30 11:52 | XMS_ITS | Encounter Summary ---
:1955 Author Organization [facility] [place] [address] Care Team Providers Name Role Phone Chetna Loredo Primary Care Provider Unavailable Reason for Referral Physical Therapy (Routine) - Closed Specialty Diagnoses / Procedures Referred By Contact Refer red To Contact Physical Therapy Diagnoses Arthritis of knee Milan Calvert MD [address] [place] [address] Referral ID Status Reason Start Date Expiration Visits Visits Date Requested Authorized [id number] Closed Evaluation and 11/01/2016 11/01/2017 1 1 Treat Reason for Visit Auth/Cert Specialty Diagnoses / Procedures Referred By Contact Refer red To Contact Diagnoses Unilateral primary osteoarthritis, left knee Arthritis of knee [M17.10] Procedures NM PLASTY KNEE,MED OR LAT COMPARTMT NM ARTHROPLASTY PATELLA NM ROBOTIC SURGICAL SYSTEM NENITA - UNICOMPARTMENTAL KNEE REPLACEMENT - ROBOTIC Referral ID Status Reason Start Date Expiration Date Visits Requ ested Visits Authorized [id number] 1 1 Encounter Details Date Type Department Care Team Description 11/01/2016 - Hospital Encounter Nursing Unit Miguelito Manuel MD 11/02/[id number] [place] [id number] Social History Tobacco Use Types Packs/Day Years [...] Sign Reading Time Taken Comments Blood Pressure 131/82 11/01/2016 1:09 PM EDT Pulse 80 11/02/2016 11:45 AM EDT Temperature 37.2 ??C (99 ??F) 11/02/2016 11:45 AM EDT Respiratory Rate 18 11/02/2016 11:45 AM EDT Oxygen Saturation 92% 11/02/2016 11:45 AM EDT Inhaled Oxygen Concentration - - Weight 114.8 kg (253 lb) 11/01/2016 6:35 AM EDT Height 180.3 cm (5' 11) 11/01/2016 6:35 AM EDT Body Mass Index 35.29 11/01/2016 6:35 AM EDT documented in this encounter Functional [...] as of this encounter Discharge Instructions Discharge InstructionsSTANLEY Mon - 11/02/2016 11:47 AM EDT Dressing care: 1. Remove Aquacel dressing on 11/09/2016. 2[address] dry gauze over incision and secure with tape. 3. Change gauze dressing daily. 4. Ok for incision to get wet, do NOT submerge incision in water (pool, bathtub, hottub). 5. Wear YAMILET hose 24 hours per day for 6 weeks to prevent blood clots. You may remove for 30-60 minutes per day if needed. 6. No dental work (cleanings included) for 3 months from date of surgery. You will need antibiotics prior to ANY dental work, please contact your surgeon's office for further instructions. 7. No Lotion, soaps, creams, or ointments to be applied to incision. 8. Do not trim incision sutures. 9. Ok to wash YAMIELT hose with cold water. Air dry to prevent from shrinking. 10. May apply ice to incision for pain and swelling relief. Ice to be on for 20 minutes then off for20 minutes. Do not let ice come in direct contact with skin, place in towel and then apply to skin 11. No NSAIDS like Aleve, naproxyn, advil, ibuprofen, motrin until otherwise directed. 12. Do NOT apply heat to incision. 13. Ok to take Tylenol 500mg 1 tab by mouth every 6 hours as needed for pain. 14. If you have any questions please call [phone]. 15. Preform chlorhexadine bath the day after your surgery and the following day- for a total of 2 chlorhexadine baths after your surgery. Do NOT wash face, groin, or incision. AttachmentsThe following attachments cannot be sent through Care Everywhere. LAXATIVE, STOOL SOFTENERS (BY MOUTH) (FINNISH)ONDANSETRON (BY MOUTH, INTO THE MOUTH) (FINNISH)OXYCODONE, RAPID RELEASE (BY MOUTH) (FINNISH)KNEE ARTHROSCOPY (DISCHARGE CARE) (FINNISH)documented in this encounter Medications at Time of [...] tablet daily. documented as of this encounter Progress Notes Karsten Barakat MD - 11/02/2016 11:54 AM EDT Orthopedic Progress Note Diagnosis: Active Problems: * No active hospital problems. * Length of stay: LOS: 0 days Surgery: Procedure(s): MEDIAL NENITA - UNICOMPARTMENTAL KNEE REPLACEMENT - ROBOTIC Primary surgeon: Miguelito Manuel MD Subjective: 24 Hour Events/Interval History: Patient reports he had difficulty with urinary retention over night but has been able to void small amounts consistently. ABle to ambulate in the room overnight. Objective: Vital signs in last 24 hours: Temp: [97.4 ??F (36.3 ??C)-99.2 ??F (37.3 ??C)] 99 ??F (37.2 ??C) Pulse: [62-94] 80 Resp: [12-22] 18 BP: (131)/(82) 131/82 MAP (mmHg): [105] 105 SpO2: [90 %-97 %] 92 % Continuous VISI Blood Pressure: (124-151)/(69-94) 148/93 Continuous VISI BP MAP: [99 mmHg-121 mmHg] 119 mmHg Physical Exam: LEFT LOWER EXTREMITY EXAM: INSPECTION: No open wounds, swelling, induration, or erythema. Dressing in place. Will change to aquacel prior to DC ALIGNMENT: No gross deformity. PALPATION: Appropriately tender to palpation of affected area ROM: Limited ROM secondary to pain VASCULAR: 2+ dorsalis pedis pulse, capillary refill < 2 sec, toes warm and well-perfused SENSORY: sensation is intact to light touch in superficial peroneal nerve distribution (over dorsum of foot), deep peroneal nerve distribution (over first dorsal web space), sural nerve distribution (over lateral aspect 5th metatarsal), saphenous nerve distribution (over medial instep) MOTOR: intact EHL (great toe dorsiflexion), FHL (great toe plantar flexion), TA (ankle dorsiflexion), GSC (ankle plantar flexion) COMPARTMENTS: Soft. No pain with passive stretch. Scheduled Meds: ??? aspirin 325 mg Oral BID ??? tamsulosin 0.4 mg Oral Daily@0900 PRN Meds: HYDROmorphone, oxyCODONE Assessment/Plan: Active Problems: * No active hospital problems. * -PTDC -Flomax for urinary retention -DC On As[address] 325 BID -change to aquacel today Jose Francisco Barakat Pager [phone] PGY-III Electronically signed: 11/02/2016 11:55 AM Electronically signed by: Karsten Barakat MD Resident 11/02/16 1200 documented in this encounter H&P Notes Milan Brigido Enrike - 11/01/2016 6:41 AM EDT Orthopedic Admission History & Physical PATIENT MARKED AND CONSENTED Dario Mckeon 60 y.o. ?? Reason for Visit: pre-op eval/consent Left knee nenita ?? Prior Imaging: MRI LEFT KNEE WITH CONTRAST, 08/08/2016 12:13 PM ? INDICATION: ??KNEE PAIN, PERSISTENT, >=8BDYC75.12 Primary osteoarthritis of left knee M54.5 Chronic midline low back pain without sciatica G89.29 Chronic midline low back pain without sciatica COMPARISON: 04/25/2016 radiographs ? TECHNIQUE: Multi-planar, multi-sequence MR imaging of the left knee was performed without contrast. ? FINDINGS: ? . ??Bone: No fracture, avascular necrosis, or [...] PCL consistent with a ganglion cyst. ? CONCLUSION: ? 1. ??Complex tear of the medial meniscus with extrusion. 2. ??Tricompartmental degenerative changes, worst in the medial compartment with large areas of full-thickness cartilage loss. 3. ??Small knee joint effusion with synovitis tracking along the course of the popliteal tendon sheath. 4. ??Small leaking Kraus cyst. ?? HPI: This patient presents for a pre-op evaluation before a left knee medial makoplasty scheduled for 11/01/2016 at [facility]. He is having persisting symptoms of mostly medial sided knee pain when weight-bearing. The procedure, risks, and possible benefits were discussed, and the patient is ready to proceed with the surgery. All of his questions have been answered and the patient is in agreement with the plan of care. ? Past??Medical??History Past Medical History: Diagnosis Date ??? Diabetes mellitus (HCC) ? Hyperlipemia ? Ruptured appendix ? Tachycardia ? Past??Surgical??History Past Surgical History: Procedure Laterality Date ??? APPENDECTOMY ? Social??History Social History ?? Social History ??? Marital status: ? Spouse name: N/A ??? Number of children: N/A ??? Years of education: N/A ?? Occupational History ??? Not on file. ?? Social History Main Topics ??? Smoking status: Former Smoker ? Types: Cigarettes ? Quit date: 04/16/1989 ??? Smokeless tobacco: Not on file ??? Alcohol use Yes ? Comment: occassionally ??? Drug use: No ??? Sexual activity: Not on file ?? Other Topics Concern ??? Not on file ?? Social History Narrative ? Family??History Family History Problem Relation Age of Onset ??? Hypertension Mother ? Diabetes Father ? Heart disease Father ? Stroke Neg Hx ? Review of Systems A complete ROS was performed with pertinent positives/negatives noted in the HPI. The remainder of the ROS are negative. ?? Updated Medication List: ? acetaminophen (TYLENOL) 500 MG tablet ?? Sig - Route: Take 1,000 mg by mouth every 6 (six) hours as needed. - Oral ?? Class: Historical Med ?? aspirin 81 MG EC tablet *ANTIPLATELET* ?? Sig - Route: Take 81 mg by mouth daily. - Oral ?? Class: Historical Med ?? atorvastatin (LIPITOR) 20 MG tablet ?? Sig - Route: Take 20 mg by mouth daily. - Oral ?? Class: Historical Med ?? cyclobenzaprine (FLEXERIL) 10 MG tablet ?? Sig - Route: Take 10 mg by mouth 2 times daily. - Oral ?? Class: Historical Med ?? DEXT 70/POLYCARBOPHIL/PEG/NACL (ARTIFICIAL TEAR SOLUTION OPHT) ?? Sig - Route: Place 1 drop into both eyes as needed. - Both Eyes ?? Class: Historical Med ?? flecainide (TAMBOCOR) 100 MG tablet ?? Sig - Route: Take 100 mg by mouth every 12 hours. - Oral ?? Class: Historical Med ?? hydrocortisone 1 % cream ?? Sig - Route: Apply 1 application topically as needed. - Topical ?? Class: Historical Med ?? LIDOCAINE HCL (ASPERCREME, LIDOCAINE, TOP) ?? Sig - Route: Apply 1 application topically as needed. - Topical (Top) ?? Class: Historical Med ?? loratadine (CLARITIN) 10 mg tablet ?? Sig - Route: Take 10 mg by mouth daily as needed. - Oral ?? Class: Historical Med ?? meloxicam (MOBIC) 7.5 MG tablet ?? Sig - Route: Take 7.5 mg by mouth daily. - Oral ?? Class: Historical Med ?? metFORMIN (GLUCOPHAGE) 500 MG tablet ?? Sig - Route: Take 500 mg by mouth 2 times daily with meals. - Oral ?? Class: Historical Med ?? metoPROLOL tartrate (LOPRESSOR) 50 MG tablet ?? Sig - Route: Take 50 mg by mouth 2 times daily. - Oral ?? Class: Historical Med ?? multivitamin capsule ?? Sig - Route: Take 1 capsule by mouth daily. - Oral ?? Class: Historical Med ?? traMADol (ULTRAM) 50 mg tablet ?? Sig - Route: Take 50 mg by mouth every 6 (six) hours as needed. - Oral ?? Class: Historical Med ?? vortioxetine (TRINTELLIX) 5 mg tablet ?? Sig - Route: Take 5 mg by mouth daily. - Oral ?? Class: Historical Med ?? ascorbic acid, vitamin C, (VITAMIN C) 500 MG tablet ?? Sig - Route: Take 500 mg by mouth daily. - Oral ?? Class: Historical Med ? Vitals: ?? 10/17/16 0916 BP: 122/76 Pulse: 67 Temp: 97.4 ??F (36.3 ??C) PainSc: 3-Three (mild) Comment: left knee Height: 1.78 m (5' 10.08) Weight: 115.2 kg (253 lb 15.5 oz) BMI (Calculated): 36.4 ? Physical Exam: Patient is alert, awake and oriented General: NAD Chest: clear Heart: RRR Abdomen: soft ?? Exam ?? Hips: Symmetric ROM, no groin pain with flexion or rotation. No TTP laterally. ?? Examination of left knee: ?? Skin is intact. No swelling. Previous skin incisions are present. Effusion is absent. ?? ROM 0-100 degrees. Pain behavior is present. The patient does have arthritic crepitus and pain. The patient does have bony tenderness to palpation. ?? Patient has no joint line tenderness. [facility] test is negative ?? Emili <5 mm, firm endpoint. Ligamentous exam is normal. ?? Quad strength is weak. Normal straight leg raise. There is not a palpable defect in the extensor mechanism. Distal ankle and foot strength is normal. The patient walks with antalgic gait. Popliteal angles are normal. ?? Overall limb alignment is neutral Patella tracks moderately. J sign: negative. Patellofemoral compression yields positive crepitus and negative pain. ?? Contralateral knee exam - ROM 0-120 degrees. Stable to varus and valgus stress. Stable anterior/posterior exam. Normal strength and sensation distally. ? Imaging: none today - pt scheduled for CT scan today ?? Assessment: 1. Primary osteoarthritis of both knees Total Joint Bundle Patient ?? Educate on Pre-Op CHX bath ?? SA/MRSA Pre Op Screen ?? Hemoglobin A1C ?? CBC ?? Albumin ?? Prealbumin ?? Basic Metabolic Panel ?? Internal Ambulatory Referral to PT (Pre and Post Op) ?? Walker ?? Bedside Commode ?? Ambulatory Referral To Anesthesiology (Pre-Operative Assessment Clinic) ? Plan: - Updated H&P and informed consent obtained today. - Thorough discussion was held regarding: what to expect on day of and procedural steps risks and future expectations early post-op care and red flags patient's health and medications - Patient expressed understanding and all questions were answered. Instructed to please contact if any further questions or concerns. Electronically signed by: Milan Calvert MD 11/01/2016 6:41 AM Electronically signed by: Milan Calvert MD Resident 11/01/16 0642 documented in this encounter Nursing Notes Shabnam Geiger RN - 11/01/2016 11:33 AM EDT Report to yoan sanderson rn in room 520. Family notified per nader. Electronically signed by: Shabnam Geiger RN 11/01/16 1134 Shabnam Geiger RN - 11/01/2016 11:15 AM EDT To dhsp Electronically signed by: Shabnam Geiger RN 11/01/16 1115 Crystal Lujan RN - 11/01/2016 10:33 AM EDT Break relief, report received from Shabnam Geiger RN, patient awake and alert, rates pain 8/10, will continue to monitor Electronically signed by: Crystal Lujan RN 11/01/16 1035 Shabnam Geiger RN - 11/01/2016 9:56 AM EDT Xray complete at bs. Electronically signed by: Shabnam Gegier RN 11/01/16 0956 Shabnam Geiger RN - 11/01/2016 9:45 AM EDT CBC sent. Electronically signed by: Shabnam Geiger RN 11/01/16 0946 Shabnam Geiger RN - 11/01/2016 9:43 AM EDT Waking up. Hob 45*. Electronically signed by: Shabnam Geiger RN 11/01/16 0945 documented in this encounter Miscellaneous Notes Therapy Visit - Daily Note - Jovany Easley, PT - 11/02/2016 9:32 AM EDT Physical Therapy Daily Note Outpatient Precautions: Isolation: No active isolations Assessment Patient reporting 8/10 pain and experiencing occasional dizziness. BP is 132/83 at start and 115/72 when complaining of dizziness. Patient demonstrates bed mobility with Minimal assistance for his LLE,stands independently, and ambulates with rolling walker and stand by assistance. He ascends/descends5 steps with supervision. HEP reviewed. Patient appropriate for discharge home with prn assistance and outpatient PT. Problem List Problem List: Pain, Decreased range of motion, Impaired functional mobility, Decreased strength Impaired Functional Mobility: Ambulation PT (Active) There are no active problems. PT (Resolved) Problem: Physical Therapy Dates: Start: 11/01/16 Resolved: 11/02/16 Description: PT Goals Goal: Ambulation (Resolved) Dates: Start: 11/01/16 Expected End: 11/22/16 End: 11/02/16 Description: Patient will ambulate 200 feet with LRAD and stand by assistance. Outcomes: Date/Time User Outcome 11/02/16930 Jovany Easley PT Completed Goal: Stairs (Resolved) Dates: Start: 11/01/16 Expected End: 11/22/16 End: 11/02/16 Description: Patient will go up and down 5 steps with stand by assistance. Outcomes: Date/Time User Outcome 11/02/16930 Jovany Easley PT Completed Goal: Education (Resolved) Dates: Start: 11/01/16 Expected End: 11/22/16 End: 11/02/16 Description: Patient/family will be independent with HEP and understand all education and precautions. Outcomes: Date/Time User Outcome 11/02/16 0931 Jovany Easley, PT Completed Plan Interventions Future Interventions: Gait training, Therapeutic exercises (comment), Patient/caregiver education, Discharge planning, Therapeutic activities (comment) PT Frequency: 1 visit in am Subjective Informed Consent Consent for treatment given by the patient. Nurse gave clearance to see patient. Pain: 11/24, medication given by nursing, activity to tolerance, ice applied following session Objective Patient Level of Care: Observation Patient assessed in presence of: alone Appearance: No Lines/Leads Pt position on arrival: Supine Mental Status: alert Follow commands: yes Therapeutic Exercises: Patient performs AAROM of the LE's including ankle pumps, quad extensions, heel slides, and extension stretching Transfer Activities: AM-PAC SF - Mobility: How much difficulty turning over in bed?: None (Mod I to Independent) How much difficulty sitting down on / standing up from a chair with arms?: None (Mod I to Independent) How much difficulty moving from lying on back to sitting on side of bed?: A Little (Min A , CGA, SBA, Supv) How much help from another person moving to and from a bed to a chair?: None (Mod I to Independent) How much help from another person needed to walk in hospital room?: None (Mod I to Independent) How much help from another person for climbing 3-5 steps with a railing?: A Little (Min A , CGA, SBA, Supv) AM-PAC Mobility Total: Locomotion: Patient ambulates 200 feet with walker and stand by assistance, step-to gait pattern Patient ascends/descends 5 steps with rail and supervision Education: Patient educated regarding activity progression, fall prevention, HEP Response to education: Patient verbalized understanding and demonstrates understanding Patient left supine with needs in place Treatment Time PT Time in Time Codes: 30 minutes PT Total Treatment Time: 30 minutes Time In: 854 Time Out: 924 Charges 11/02/2016 Code Description Service Provider Modifiers Quantity [id number] Hc Therapeutic Exercise Each 15 Min Jovany Easley, PT GP 1 [id number] Hc Therapeutic Activity Each 15 Min Jovany Easley, PT GP 1 Time of Service Note Type Status None Electronically signed by: Jovany Easley, PT 11/02/16 0937 Therapy Evaluation - Jovany Easley, PT - 11/01/2016 1:50 PM EDT Physical Therapy General Evaluation Outpatient Precautions Isolation: No active isolations Assessment Patient is 60 yo male Day 0 s/p Left partial knee replacement (NENITA). Patient previously independentand living with spouse at home, 5 steps to enter. Patient reporting 8/10 pain despite medications given and ice applied. He demonstrates modified independence with bed mobility, transfers, and ambulation about the room. Stairs deferred due to pain. Anticipate that patient will clear stair assessment in the morning and be appropriate for discharge home with prn assistance and outpatient PT. [facility] AM-PAC?6 Clicks?? Basic Mobility Inpatient Short Form score is 22/24 indicating 21% disability. Recommendations PT Recommendations: Anticipate discharge home with prn assistance and outpatient PT DME Needed: None Problem List Problem List: Pain, Decreased range of motion, Impaired functional mobility, Decreased strength Impaired Functional Mobility: Ambulation PT (Active) Problem: Physical Therapy Dates: Start: 11/01/16 Resolved: Not on file Description: PT Goals Goal: Ambulation Dates: Start: 11/01/16 Expected End: 11/22/16 End: Not on file Description: Patient will ambulate 200 feet with LRAD and stand by assistance. Outcomes: Goal: Stairs Dates: Start: 11/01/16 Expected End: 11/22/16 End: Not on file Description: Patient will go up and down 5 steps with stand by assistance. Outcomes: Goal: Education Dates: Start: 11/01/16 Expected End: 11/22/16 End: Not on file Description: Patient/family will be independent with HEP and understand all education and precautions. Outcomes: PT (Resolved) There are no resolved problems. Plan Plan of care discussed with and agreed on by the patient . Interventions Future Interventions: Gait training;Therapeutic exercises (comment);Patient/caregiver education;Discharge planning;Therapeutic activities (comment) PT Frequency: 1 visit in am Reason for referral: Evaluate and Treat for Mobility Hospital Course: Patient is 60 yo male Day 0 s/p Left partial knee replacement (NENITA) Past Medical History Past Medical History: Diagnosis Date ??? Diabetes mellitus (HCC) ??? Hyperlipemia ??? Hypertension ??? Ruptured appendix ??? Tachycardia Past Surgical History Past Surgical History: Procedure Laterality Date ??? APPENDECTOMY PT Order Details PT Physical Therapy Evaluate and Treat for Mobility None; NENITA Frequency: DC Pending within 24 HRS Number of Occurrences: 1 Occurrences Order Questions: ??? Type of Treatment Requested Evaluate and Treat for Mobility ??? Specific Instructions/Precautions None ??? Weight Bearing or Other Instructions NENITA Subjective Informed Consent Consent for evaluation and treatment given by the patient. Nurse gave clearance to see patient. Social Factors: Patient Lives (with) : Spouse Prior to admission, patient resided at: Private residence Person(s) Available to assist at discharge: Spouse/significant other Amount of assitance available at discharge: PRN assistance Steps to Enter: 5 steps Steps within home: No steps Bathroom setup: not assessed DME Available: Walker (rolling), Bedside commode. History of falls: Fall in the last year?: No Pain: Pain Assessment Pain Assessment: Numerical (0-10) Pain Scale Pain Score: 8-Eight (severe) Pain Intervention(s): Medication (given by nursing);Therapy to tolerance Objective Patient Level of Care: Observation Patient assessed in presence of: spouse Appearance: IV Pt position on arrival: Supine Mental Status: alert Orientation: Oriented x 4 Follow commands: yes Vitals: 97% on room air 67 bpm 142/89 Skin: post op dressings intact Patient's skin intact where visualized (garments and dressing kept intact)\ ROM: PROM - RUE PROM Overall RUE: Within Functional Limits PROM - LUE PROM Overall LUE: Within Functional Limits PROM RLE (degrees) PROM Overall RLE: Within Functional Limits PROM LLE (degrees) L Knee Flexion: 20-30 degrees L Knee Extension: 0-5 degrees Strength: RUE Strength RUE Overall Strength: Within Functional Limits LUE Strength LUE Overall Strength: Within Functional Limits Strength RLE RLE Overall Strength: Within Functional Limits Strength LLE LLE Overall Strength: Within Functional Limits Functional Mobility Ashraf: D= dependent (pt performs [...] tested Rolling Left Rolling Left Assist Level: Modified independent Rolling Right Rolling Right Assist Level: Modified independent Supine to Sit Supine to Sit: To edge of bed Supine to Sit Assistance Level: Modified independent Sit to Supine Sit to Supine: From edge of bed Sit to Supine Assistance Level: Modified independent Sit to Stand Sit to Stand Assist Level: Stand by assistance Stand to Sit Stand to Sit Assist Level: Stand by assistance -PAC SF - Mobility: How much difficulty turning over in bed?: None (Mod I to Independent) How much difficulty sitting down on / standing up from a chair with arms?: None (Mod I to Independent) How much difficulty moving from lying on back to sitting on side of bed?: None (Mod I to Independent) How much help from another person moving to and from a bed to a chair?: None (Mod I to Independent) How much help from another person needed to walk in hospital room?: A Little (Min A , CGA, SBA, Supv) How much help from another person for climbing 3-5 steps with a railing?: A Little (Min A , CGA, SBA, Supv) AM-PAC Mobility Total: Locomotion: Gait Assistance Level: Supervision Assistive Device: Rolling walker Step to gait pattern with little to no knee excursion and flat-footed stance Education: Patient educated regarding role and plan of PT, WBAT status, initial HEP Response to education: Patient verbalized understanding and demonstrates understanding Interventions: Patient performs ankle pumps, quad sets, heel slides, and extension stretching Patient ambulates 2 x 20 feet with rolling walker and stand by assistance Patient left supine with spouse and nursing in attendance Treatment Time PT Time in Time Codes: 10 minutes PT Total Treatment Time: 30 minutes Time In: 1350 Time Out:1420 Charges 11/01/2016 Code Description Service Provider Modifiers Quantity [id number] Hc Therapeutic Exercise Each 15 Min Jovany Easley, PT GP 1 [id number] Hc Pt Eval Low Complex Jovany Easley PT GP 1 Time of Service Note Type Status None Electronically signed by: Jovany Easley, PT 11/01/16 1429 Nursing/Ancillary Notes - Rosalva Carl RN - 11/01/2016 1:39 PM EDT Care Coordination Concurrent Review Performed by Case Management/Utilization Management Department OP Approved for: Procedure(s) (LRB): MEDIAL NENITA - UNICOMPARTMENTAL KNEE REPLACEMENT - ROBOTIC (Left) Rosalva Carl RN-BSN Utilization Review Nurse Electronically signed by: Rosalva Carl RN 11/01/16 1339 Nursing/Ancillary Notes - Johanna Coronel RN - 11/01/2016 11:35 AM EDT Patient was admitted to observation post op. Report received from BERNARD Haque. IV infusing. VSS. All belongings are with the patient. Family notified of arrival. Will monitor patient and wait for furtherorders. Electronically signed by: Johanna Coronel RN 11/01/16 1135 Op Note - Mgiuelito Manuel MD - 11/01/2016 7:41 AM EDT DATE OF SURGERY: 11/01/2016. ?? SURGEON: Miguelito Manuel M.D. ?? ASSISTANTS: 1. Ant Calvert MD ?? PREOPERATIVE DIAGNOSIS: Left knee arthritis. ?? POSTOPERATIVE DIAGNOSIS: Same. ?? PROCEDURES PERFORMED: 1. Unicompartmental replacement with NENITA Tulio implants size 6 on the femur, size 6 on the tibia and 8 mm polyethylene using computer guidance and robotic assistance. 2. Medial patellar facetectomy open. ?? SPECIMENS: None. ?? DRAINS: None. ?? ESTIMATED BLOOD LOSS: Minimal. ?? BLOOD REPLACEMENT: None. ?? COMPLICATIONS: None recognized. ?? ANESTHESIA: Regional. ?? PREOPERATIVE INDICATIONS: The patient has had medial [...] with surgery and informed consent was obtained. ?? OPERATIVE FINDINGS: Stable unicompartmental arthroplasty performed with the above components. A medial patellar facetectomy was performed with a rongeur. ?? BRIEF OPERATIVE REPORT: The patient properly identified [...] and taken to PACU in stable condition. ?? DISPOSITION: The patient will be admitted overnight for pain medicine and physical therapy standard [facility] postoperative protocol. Follow up in two weeks. ? The possibility of overlapping surgery was discussed preoperatively. I was present and scrubbed for all critical portions of the procedure which included exposure, diagnostic evaluation, final implant placement, and medical decision making. My partner, Dr. Che, was immediately available should myattention have been required urgently in another operating room ?? Electronically signed by: Miguelito Manuel MD 11/01/16 2137 SNC Call Note - Helen Kan RN - 10/13/2016 4:14 PM EDT SNC call complete. All appropriate screenings complete. PAC appointment date/time and location confirmed with patient. Opportunity for questions given and answered. [facility] phone number provided to patient. DOS / PROCEDURE: 11-01-16 NENITA (Unicompartmental Knee Replacement) Patient Rated Overall Health Score: 3.5 of 5 High Risk Alert Medication: Aspirin 81 mg Medication for DOS as follows: F/u with Anesthesia NATACHA and surgeon instructions. MARTA Diagnosis: No MARTA Risk Factor Score: 5 Evaluation for Sleep Apnea Initial Consult Made: Yes (referred to Gemma) History of Anesthetic Complications No The Screening Process/Questionnaire PCP note sent: Yes Chetna Loredo MD Smoker: non-smoker Quit in 89' Home Oxygen: No Basic Needs Met: Yes Medication Needs: None identified Language Barrier: No Arianne Education Sent: Yes; Anesthesia, DOS modules sent. Residence: independently at home Functionality: Ambulatory with cane ADL's: Independent Transportation: Personal (significant other-Johanna [phone]) Discharge Plan Post Procedure: Home with family after discharge from hospital to self-care if approved from inpatient standpoint. Inpatient CM/SW discharge planning to assess needs for discharge. Overall Assessment: SNC screen completed by patient. PAC & all other appts confirmed with patient. Instructed to bring a good list of current medications to PAC appointment for electrophysiology technician to review. SNC recall number given for future questions/concerns. Patient has hx of an unsuccessful Cardiac Ablation for tachycardia in 2009. Patient also has decreased mobility related to chronic lower back pain/DDD. Electronically signed by: Helen Kan RN 10/13/16 1625 documented in this encounter Plan of Treatment Scheduled Referrals Name Type Priority Associated Order Schedule Diagnoses Ambulatory Referral Outpatient Referral Routine Arthritis of k nee 1 Occurrences To Adult Physical starting 0 11/01/2016 Therapy until 8 documented as of this encounter Procedures Procedure Name Priority Date/Time Associated Diagnosis Comme nts LAB SCAN 11/03/2016 9:16 Results for this AM EDT procedure are i n the results section. POCT GLUCOSE BATTERY Routine 11/01/2016 12:40 Res ults for this DEVICE PM EDT procedure are i n the results section. XR KNEE LEFT (LIMITED: YOLANDA 11/01/2016 10:03 Arthriti s of knee Results for this AP,LAT) - PORTABLE AM EDT Primary procedure are in osteoarthritis of the result s left knee section. CBC Routine 11/01/2016 9:51 Results for this AM EDT procedure are i n the results section. POCT GLUCOSE BATTERY Routine 11/01/2016 9:33 Resu lts for this DEVICE AM EDT procedure are i n the results section. NENITA - UNICOMPARTMENTAL 11/01/2016 6:49 Arthritis of k nee KNEE REPLACEMENT - AM EDT ROBOTIC Special Needs AC: CASE RM [address] MANUEL/140 MIN PER CGCT: 10/17niddm POCT GLUCOSE BATTERY Routine 11/01/2016 6:33 AM EDT Results for this procedure DEVICE are in the resu lts section. documented in this encounter Results LAB SCAN (11/03/2016 9:16 AM EDT) Narrative This result has an attachment that is no t available. Default Authenticator Emerson SCANNED DOCUMENTS POCT Glucose (11/01/2016 12:40 PM EDT) P athologist Signature POC GLUCOSE 110 70 - 150 [place] mg/dL Specimen Anatomical Collection Method Collection Time Receive d Time (Source) Location / / Volume Laterality 11/01/2016 12:40 11/01/2016 2:57 PM EDT PM EDT Miguelito Manuel MD POCT ORDERABLES - DEVICE Performing Organization Address City/State/ZIP Code Phon e Number [place] XR KNEE LEFT (LIMITED: AP,LAT) - PORTABLE (11/01/2016 10:03 AM EDT) Anatomical Region Laterality Modality Thigh, Knee, Leg Computed Radiography Specimen (Source) Anatomical Collection Method Collection Time Re ceived Time Location / / Volume Laterality 11/01/2016 10:13 AM EDT Impressions 11/01/2016 5:41 PM EDT 1. ??Interval medial compartment arthrop lasty with expected postoperative alignment. No evidence of immediate hardware complication. 2. ??Sequela of recent surgery noted, in cluding superficial yoselin, soft tissue gas, and a moderate knee effusion. 3. ??Moderate patellofemoral and mild la teral compartment degenerative changes. 4. ??No acute fracture. Narrative 11/01/2016 5:41 PM EDT X-RAY LEFT KNEE (1-2 VIEWS, PORTABLE), 11/01/2016 10:03 AM INDICATION: ??NENITA - LEFTM17.12 Primary osteoarthritis of left knee M17.10 Arthritis of knee COMPARISON: 10/17/2016 Procedure Note Saul Felix MD - 11/01/2016 X-RAY LEFT KNEE (1-2 VIEWS, PORTABLE), 10:03 AM INDICATION: NENITA - LEFTM17.12 Primary os teoarthritis of left knee M17.10 Arthritis of knee COMPARISON: 10/17/2016 CONCLUSION: 1. Interval medial compartment arthropla sty with expected postoperative alignment. No evidence of immediate hardware complication. 2. Sequela of recent surgery noted, incl uding superficial yoselin, soft tissue gas, and a moderate knee effusion. 3. Moderate patellofemoral and mild late ral compartment degenerative changes. 4. No acute fracture. Miguelito Manuel MD IMG DIAG PORTABLES ORDERABLE S (ABNORMAL) CBC (11/01/2016 9:51 AM EDT) athologist Signature WBC 9.2 4.8 - 10.8 11/01/2016 [place] [facility] X 10^3/uL 10:13 AM EDT [facility] RBC 4.10 (L) 4.70 - 6.10 11/01/2016 [place] [facility] [place] 10^6/uL 10:13 AM EDT [facility] Hemoglobin 11.9 (L) 14.0 - 18.0 11/01/2016 [place] [facility] G/DL 10:13 AM EDT [facility] Hematocrit 35.6 (L) 42.0 - 52.0 11/01/2016 [place] [facility] % 10:13 AM EDT [facility] MCV 86.7 80.0 - 94.0 11/01/2016 [facility] [place] 10:13 AM EDT [facility] MCH 29.0 27.0 - 31.0 11/01/2016 [facility] PG 10:13 AM EDT [facility] MCHC 33.4 33.0 - 37.0 11/01/2016 [place] [facility] G/DL 10:13 AM EDT [facility] RDW 14.4 11.5 - 14.5 11/01/2016 [place] [facility] % 10:13 AM EDT [facility] Platelets 257 160 - 360 X 11/01/2016 [place] [facility] 10^3/uL 10:13 AM EDT [facility] MPV 7.6 6.8 - 10.2 11/01/2016 [facility] [place] 10:13 AM EDT [facility] Specimen Anatomical Collection Method / Collection Time Recei ericka Time (Source) Location / Volume Laterality Blood specimen Venipuncture / 11/01/2016 9:51 11/02/19 17 9:51 (specimen) Unknown AM EDT AM EDT Miguelito Manuel MD LAB BLOOD ORDERABLES Performing Organization Address City/State/ZIP Code Phon e Number [facility] CLIA# [id number] [place] [address] [facility] POCT Glucose (11/01/2016 9:33 AM EDT) P athologist Signature POC GLUCOSE 124 70 - 150 [place] mg/dL Specimen Anatomical Collection Method Collection Time Receive d Time (Source) Location / / Volume Laterality 11/01/2016 9:33 AM 7 9:33 EDT AM EDT Miguelito Manuel MD POCT ORDERABLES - DEVICE Performing Organization Address City/State/ZIP Code Phon e Number [place] POCT Glucose (11/01/2016 6:33 AM EDT) P athologist Signature POC GLUCOSE 103 70 - 150 [place] mg/dL Specimen Anatomical Collection Method Collection Time Receive d Time (Source) Location / / Volume Laterality 11/01/2016 6:33 AM 7 6:34 EDT AM EDT Miguelito Manuel MD POCT ORDERABLES - DEVICE Performing Organization Address City/State/ZIP Code Phon e Number [place] documented in this encounter Visit Diagnoses Diagnosis Primary osteoarthritis of left knee - Pr imary Arthritis of knee Unspecified arthropathy, lower leg documented in this encounter Administered Medications Inactive Administered Medications - up to 3 most recent administrations Medication Order MAR Action Action Date Dose Rate Site aspirin tablet *ANTIPLATELET* 325 Given 11/02/2016 5:10 AM EDT 3 25 mg mg 325 mg 2 times daily, Oral, First dose on Mon11/01/16 at 2100, Post-op Nursing Unit Given 11/01/2016 8:58 PM EDT 325 mg ceFAZolin (ANCEF) IVPB 2 g New 11/01/2016 11:07 PM EDT 2 g 260 mL/hr 2 g Every 8 hours, Intravenous, Administer over 30 Minutes, First dose on Mon11/01/16 at 1530, For 2 doses, Purpose: Prophylaxis New 11/01/2016 5:45 PM EDT 2 g 260 mL/hr HYDROmorphone (DILAUDID) injection 0.1 m g 0.1 mg Every 4 hours PRN, Intravenous, B reakthrough pain, Starting on Mon11/01/16 at 1125, Post-op Nursing Unit lactated ringers infusion 11/01/2016 6:12 PM EDT 30 mL/hr at 30 mL/hr, Intravenous, Continuous, Starting on Mon11/01/16 at 0700, Pre-op Holding oxyCODONE (ROXICODONE) 5 MG immediate re lease tablet Starting on Mon11/01/16 at 1037, For 1 dose oxyCODONE (ROXICODONE) immediate release Given 11/01/2016 10:40 AM EDT 5 mg tablet 5 mg 5 mg Once, Oral, On Mon11/01/16 at 1130, For 1 dose, PACU oxyCODONE (ROXICODONE) immediate release Given 11/02/2016 9:04 A M EDT 15 mg tablet 5-15 mg 5-15 mg Every 3 hours PRN, Oral, 5 mg mild pain, 10mg mod, 15mg severe, Starting on Mon11/01/16 at 0647 Given 11/02/2016 5:10 AM EDT 15 mg Given 11/01/2016 11:20 PM EDT 15 mg tamsulosin (FLOMAX) capsule 0.4 mg Given 11/02/2016 6:21 AM EDT 0.4 mg 0.4 mg Daily, Oral, First dose on Mon11/02/16 at 0600 documented in this encounter Active and Recently Administered Medications Times are shown in EDT. Scheduled Medication Order 10/31/2016 11/01/2016 11/02/2016 aspirin tablet *ANTIPLATELET* 325 mg 205 8 (Given - Provider: Breana Pineda, BERNARD) 0510 (Given - Provider: Breana Pineda, BERNARD) 325 mg 2 times daily, Oral, First dose o n Mon11/01/16 at 2100, Post-op Nursing Unit ceFAZolin (ANCEF) IVPB 2 g (COMPLETED) 1 745 (New Bag - Provider: Rosalva Velez, BERNARD)1820 (Stopped - Provider: Rosalva Velez RN)2307 (New Bag - Provider: Breana Pineda, BERNARD) 0123 (Stopped - Provider: Breana Pineda, RN) 2 g Every 8 hours, Intravenous, Administ er over 30 Minutes, First dose on Mon11/01/16 at 1530, For 2 doses, Purpose: Prophylaxis oxyCODONE (ROXICODONE) immediate release tablet 5 mg (COMPLE YAMILET) 1040 (Given - Provider: Crystal Lujan, BERNARD) 5 mg Once, Oral, Mon11/01/16 at 1130, PACU tamsulosin (FLOMAX) capsule 0.4 mg 0621 (Given - Provider: Breana Pineda, RN) 0.4 mg Daily, Oral, First dose on Mon11/02/16 at 0600 Continuous Medication Order 10/31/2016 11/01/2016 11/02/2016 lactated ringers infusion 1220 (Canceled Entry - Provider: Johanna Coronel RN - Comment: for pre op holding order)1812 (New Bag - Provider: Rosalva Velez RN) at 30 mL/hr, Intravenous, Continuous, St arting Mon11/01/16 at 0700, Pre-op Holding PRN Medication Order 10/31/2016 11/01/2016 11/02/2016 bupivacaine-EPINEPHrine (PF) 0.25 %-1:200,000 injection (CAN CELED) 0800 (Given - Provider: Miguelito Manuel MD - Comment: left knee injection...mixed with 30 mg of Toradol) As needed, Starting Mon11/01/16 at 0800, Intra-op HYDROmorphone (DILAUDID) injection 0.1 mg 0.1 mg Every 4 hours PRN, Intravenous, B reakthrough pain, Starting Mon11/01/16 at 1125, Post-op Nursing Unit ketorolac (TORADOL) injection (CANCELED) 0801 (Given - Provider: Miguelito Manuel MD - Comment: mixed with 60 ml of Bupivacaine with epi injected into left knee) As needed, Starting Mon11/01/16 at 0801, Intra-op oxyCODONE (ROXICODONE) immediate release tablet 5-15 mg 1304 (Given - Provider: Rosalva Velez, BERNARD)1812 (Given - Provider: Rosalva Velez, RN)2320 (Given - Provider: Breana Pineda, RN) 0510 (Given - Provider: Breana Pineda, RN)0904 (Given - Provider: Minda Iraheta RN) 5-15 mg Every 3 hours PRN, Oral, 5 mg mi ld pain, 10mg mod, 15mg severe, Starting Mon11/01/16 at 0647 sodium chloride 0.9 % irrigation (CANCELED) 0800 (Given - Provider: Miguelito Manuel MD - Comment: left knee)0802 (Given - Provider: Miguelito Manuel MD - Comment: left knee)0805 (Given - Provider: Miguelito Manuel MD - Comment: for NENITA robot irrigation) As needed, Starting 11/01/16 at 0800, Intra-op sterile water for irrigation solution (CANCELED) 0800 (Given - Provider: Miguelito Manuel MD - Comment: used for instrument rinse) As needed, Starting Mon11/01/16 at 0800, Intra-op documented in this encounter Care Teams Outreach Specialist Relationship Specialty Start Date End Date Chetna Loredo PCP - General Family Medicine 05/19/16 04/13/18 documented as of this encounter
--- OUTSIDE RECORDS SUMMARY | 2021-11-30 11:52 | XMS_ITS | Encounter Summary ---
:1955 Author Organization [facility] [place] [address] Care Team Providers Name Role Phone Chetna Loredo Primary Care Provider Unavailable Reason for Referral PT/benefits verification (Routine) - Closed Specialty Diagnoses / Procedures Referred By Contact Refer red To Contact Physical Therapy Diagnoses Chronic midline low back pain without sciatica Spondylosis of lumbar region without myelopathy or radiculopathy Chetan Whitaker 01 Ashley Vinson NP Therapy [address] [place], [place] [phone] Fax: Referral ID Status Reason Start Date Expiration Visits Visits Date Requested Authorized [id number] Closed Evaluation and 08/17/2016 05/20/2017 60 60 Treat Reason for Visit Reason Comments Isolated Back Pain with no Involvement of Buttock or L eg (Routine) - Closed Specialty Diagnoses / Procedures Referred By Contact Refer red To Contact Spine Center Diagnoses Primary osteoarthritis of left knee Chronic midline low back pain without sciatica Nasir Vega PA-C [id number] 01 [facility] [address] [place] [address] [place] [address] [address] [place] [address] Phone: Referral ID Status Reason Start Date Expiration Date Visits V isits Requested Authorized [id number] Closed Primary Spine 07/28/2016 07/28/2017 1 1 Provider (ROMI) Encounter Details Date Type Department Care Team Description 08/17/2016 Initial consult Spine Center - Chetan Whitaker Spondyllacey sis of lumbar region without myelopathy or radiculopathy (Primary Dx); Dejah Vinson, JOSE ANTONIO Primary osteoarthritis of left knee; [address] Chronic m idline low back pain without sciatic[place] [address] [address] JJ [place] [address] [phone] Social History Tobacco Use Types Packs/Day Years [...] Sign Reading Time Taken Comments Blood Pressure 110/65 08/17/2016 3:18 PM EDT Pulse 70 08/17/2016 3:18 PM EDT Temperature 36.8 ??C (98.2 ??F) 08/17/2016 3:18 PM EDT Respiratory Rate - - Oxygen Saturation - - Inhaled Oxygen Concentration - - Weight 118.8 kg (262 lb) 08/17/2016 3:18 PM EDT Height 180.3 cm (5' 11) 08/17/2016 3:18 PM EDT Body Mass Index 36.54 08/17/2016 3:18 PM EDT documented in this encounter Functional [...] Patient Instructions Patient InstructionsChetan Whitaker NP - 08/17/2016 3:15 PM EDT PT, exercises Recommend pool/aquatherapy. Continue knees treatments. NSAIDs with food. follow up 6 weeks. Please call Sharmila Lamb if not better with PT, will order MRI. documented in this encounter Progress Notes Chetan Whitaker NP - 08/17/2016 3:15 PM EDT Mr. Dario Mckeon [id number] 1955 (age: 60 y.o.) Initial Visit: Referred by: Nasir Vega Pa-c [address] [place] [address] Chief Complaint: Chief Complaint Patient presents with ??? Isolated Back Pain with no Involvement of Buttock or Leg History of Present Illness: Spine Center: Site on body where pain is: Back (both knees) Progression since onset: Gradually worsening Pain - numeric: 7/10 Pain aggravated by: Bending, walking, standing and lifting Pain better with: Rest and lying down Pain quaility: Achy, sharp and cramping Weakness in the following: Right leg and left leg Treatments tried: Muscle relaxers and anti-inflammatories Treatments tried: Muscle relaxers and anti-inflammatories Past Medical History: Diagnosis Date ??? Diabetes [...] ??? Sulfamethoxazole Anaphylaxis (ALLERGY) Review of Systems: ROS Home Medications Medication [...] Take 7.5 mg by mouth daily. ??? metFORMIN (GLUCOPHAGE) 500 MG tablet ??? metoPROLOL tartrate (LOPRESSOR) 50 MG tablet Take 50 mg by mouth 2 times daily. ??? multivitamin capsule Take 1 capsule by mouth daily. ??? ONETOUCH DELICA LANCETS 30 gauge Misc ??? ONETOUCH ULTRA TEST Strp ??? ONETOUCH ULTRAMINI kit ??? traMADol (ULTRAM) 50 mg tablet Last reviewed on 08/17/2016 3:20 PM by Yarely Sanches CMA Note: Some of the medications listed above may have been ordered after the last review. Physical Exam: Physical Exam Ortho Exam Neurologic Exam Vitals: Vitals: 08/17/16 1518 BP: 110/65 Pulse: 70 Temp: 98.2 ??F (36.8 ??C) Height: 1.803 m (5' 11) Weight: 118.8 kg (262 lb) BMI (Calculated): 36.6 Radiographic Studies: Assessment: 1. Spondylosis of lumbar region without myelopathy or radiculopathy Ambulatory Referral To Adult Physical Therapy 2. Primary osteoarthritis of left knee Ambulatory Referral To Spine Center 3. Chronic midline low back pain without sciatica Ambulatory Referral To Spine Center Ambulatory Referral To Adult Physical Therapy Plan: Mr. Mckeon is 60 years old. The patient is coming in for first visit with chief complaint of mostly low back pain. He also has some pain in his upper back between the shoulder blades. Symptoms are present for many, many years, since 1995. The patient also has severe bilateral knee pain. Apparently, he was suggested knee replacements on both sides in [place] recently. He moved to [place] and is seeing an orthopedic joint specialist soon. The patient states that pain in his back is achy and sharp. He denies any pain radiating down his lower extremities. He states the pain is somewhat worse. He rates the pain as 8 on a scale from 0/10. He feels that the pain is worse with standing, sitting, bending, lifting and walking. He feels that the pain is better with rest and lying down. He reports someweakness to his lower extremities, but mostly due to knee pain bilaterally. He limps when he walks. He denies any bowel or bladder control issues. He did not have any surgical treatments for his back, but took some Tylenol and antiinflammatory medications, which somewhat helps his pain. He also took some antinflammatory medications and muscle relaxants. He did some physical therapy about a year ago in [place] which helped him somewhat with his pain. He has no history of cancer. He is not a smoker. He reports some excessive fatigue but no night sweats. He lost some weight recently, but then gained it again due to difficulties with ambulation due to knee pain mostly. On physical exam, he is alert and oriented. His BMI is 36.5. He is ambulating with a significantly antalgic gait favoring his left lower extremity with the pain in his knee. The patient also reports significant pain in the right knee with both range of motion and weightbearing. The patient has pain with both flexion and extension of his lumbar spine. He has some mild tenderness to palpation diffuselyto his lumbar spine. He has some mild pain with range of motion to the cervical spine. Otherwise, 5/5 strength to bilateral upper extremities and to all muscle groups. He has 5/5 strength to flexion and extension to his hips, but pain to the right knee and left knee prevents him from extending and flexing his knee more than 4/5 strength. He has 5/5 strength to his bilateral ankle plantar flexion and about 5-/5 strength to bilateral ankle dorsiflexion and he again complains of significant knee pain with these tasks. The patient has negative Hernandez, negative clonus bilaterally, otherwise neurovascularly intact. The x-rays were available of the patient's lumbar spine from 07/28/2016 which show multilevel degenerative disk disease. No acute fractures, no pars defects. He has about 3 mm of retrolisthesis of L3 and L4 and multilevel lumbar spondylosis and degenerative disk disease most significant at L2-L3 with moderate disk space narrowing at L2-L3 and L5-S1. He also has minimal dextrocurvature centered at L3. ASSESSMENT: Lumbar degenerative disk disease, lumbar spondylosis, low back pain without radicular symptoms. PLAN: The patient was explained findings on exam and on imaging. At this point, he would benefit from physical therapy with [facility] trained physical therapist and referral was provided. The patient isgoing to also continue taking his nonsteroidal antiinflammatory medications and Tylenol as needed. He is going to follow up in six weeks for reevaluation. He also was recommended to try some pool and/or aqua therapy. He will continue working on his knee pain and we will follow up in six weeks. If his symptoms do not improve, he will call prior to his next visit and MRI may be needed on his lumbar spine. The patient agreed to the plan. He was also consulted in terms of the importance of posture and weight loss and importance of cardiac exercises. His questions were answered to his reasonable satisfaction. He also may need facet blocks in future if PT not helping. He was explained that there is no reliable surgical solution for back pain. Follow up: Return in about 6 weeks (around 09/28/2016) for reevaluation. Orders Placed This Encounter Procedures ??? Ambulatory Referral To Adult Physical Therapy Electronically signed by: Chetan Whitaker NP 08/17/2016 4:17 PM documented in this encounter Plan of Treatment Not on filedocumented as of this encounter Results Ambulatory Referral To Adult Physical Therapy (08/29/2016 6:26 PM EDT) Chetan Whitaker NP OUTPATIENT REFERRAL ORDERABL ES documented in this encounter Visit Diagnoses Diagnosis Spondylosis of lumbar region without mye lopathy or radiculopathy - Primary Primary osteoarthritis of left knee Chronic midline low back pain without sc iatica documented in this encounter Care Teams Fermenter Relationship Specialty Start Date End Date Chetna Loredo PCP - General Family Medicine 05/19/16 04/13/18 documented as of this encounter
--- OUTSIDE RECORDS SUMMARY | 2021-11-30 11:52 | XMS_ITS | Encounter Summary ---
:1955 Author Organization [facility] Ba ptist Address [place] [id number] Care Team Providers Name Role Phone Chetna Loredo Primary Care Provider Unavailable Reason for Visit Reason Comments Left Knee Problem Encounter Details Date Type Department Care Team Description 11/08/2016 Hospital Encounter Adult & Pediatric Tera Wilson , Physical Therapy - PT [address] [id number] Social History Tobacco Use [...] Therapy Visit - Daily Note - Tera Bernardinoadeola Wilson, PT - 11/08/2016 10:10 AM EDT Physical Therapy Daily Note Payor: [facility] MANAGED CARE / Plan: [facility] BLUE OPTIONS PPO / Product Type: PPO / PT Visit Count: 3 Referring Diagnosis: L partial knee replacement Rehabilitation Precautions/Restrictions: Precautions/Restrictions Precautions: Tachycardia, diabetes, R knee problems, 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 Has been doing his exercises regularly. Using ice and pain meds as well. Pain: Pain Assessment Reports: Numerical Pain Score Pain Score 1: 2 Pain Location: L knee Pain Interventions: Therapy to tolerance, See interventions OBJECTIVE General Observation/Objective Findings: Pt in NAD. Ambulates with front wheeled walker and wearing compression hose. Range of Motion: 0-95 deg with passive overpressure Interventions: Interventions performed as follows: Interventions performed on this visit:: Yes Therapeutic Exercises: Pt instructed in HEP to improve LE strength/stability and ROM (see flowsheet) Modalities Skin Integrity Assessment: Non Applicable Education: as described in interventions Education provided: Verbal, Demonstration and Written/hand out Level of understanding: Independent and Needs review ASSESSMENT Therapy Diagnosis: 1. Primary osteoarthritis of both knees 2. Arthritis of knee 3. Status post left partial knee replacement Response to Visit/Summary: Pt here for follow up for L partial knee replacement. He tolerated today's session very well with a 30 deg increase in knee flexion since last visit. He has a good quad contraction and good stability in weight bearing. He is progressing very well for only being 1 week post op. Will continue to benefit from skilled PT services in order to maximize ROM, strength, and stability for return to full functional mobility. Skilled Intervention needed: Verbal cues, Tactile cues, Education, Tx Program, Protocol Progression and Manual Skills Pain Reassessment: Pain Rating 3/10 Progress Towards Goals: Time frame to achieve goal:: 12 weeks Goal 1: Pt will be independent with HEP for continued gains at PT discharge. Goal 1 Comments/Progress: progressing Goal 2: Pt will report pain of less than or equal to 2/10 with activity in L knee. Goal 2 Comments/Progress: 210 today PLAN Progression needed: Continue with strengthening and [...] Total Time in Timed Codes: 30 minutes (2 ex) The patient has been instructed to contact our clinic if any questions or problems should arise. Electronically signed by: Tera Wilson, PT 11/08/2016 10:10 AM Electronically signed by: Tera Wilson, PT 11/08/16 1012 documented in this encounter Plan of Treatment Not on filedocumented as of this encounter Visit Diagnoses Diagnosis Primary osteoarthritis of both knees - P rimary Arthritis of knee Unspecified arthropathy, lower leg Status post left partial knee replacemen t documented in this encounter Care Teams Renewable Energy Trader Relationship Specialty Start Date End Date Chetna Loredo PCP - General Family Medicine 05/19/16 04/13/18 documented as of this encounter
--- OUTSIDE RECORDS SUMMARY | 2021-11-30 11:52 | XMS_ITS | Encounter Summary ---
:1955 Author Organization [facility] [place] [address] Care Team Providers Name Role Phone Chetna Loredo Primary Care Provider Unavailable Reason for Visit Reason Onset Date Comments Mauricio Schultz 10/24/2016 Encounter Details Date Type Department Care Team Description 10/24/2016 Telephone Orthopaedics - Susy Harden - Order [facility] [address] [id number] Social History Tobacco Use Types Packs/Day Years [...] this encounter Miscellaneous Notes Telephone Encounter - Ann Rojas LPN - 10/24/2016 1:34 PM EDT Pt called, two pt identifiers confirmed. Advised order has been faxed as requested. Appreciation stated Electronically signed by: Ann Rojas LPN 10/24/16 1337 Telephone Encounter - Susy Martínez PA-C - 10/24/2016 1:34 PM EDT Order placed to be faxed Electronically signed by: Susy Martínez PA-C 10/24/16 1334 Telephone Encounter - Ann Rojas LPN - 10/24/2016 1:24 PM EDT Will send to Susy for order Electronically signed by: Ann Rojas LPN 10/24/16 1325 Telephone Encounter - George Sharpe - 10/24/2016 1:09 PM EDT Patient is requesting for Order of Walker with wheels on Front be sent to [facility]; Roshni Randall Please call Patient once order is sent documented in this encounter Plan of Treatment Not on filedocumented as of this encounter Visit Diagnoses Diagnosis Primary osteoarthritis of left knee - Pr imary documented in this encounter Care Teams Truck Car And Bus Cleaner Relationship Specialty Start Date End Date Chetna Loredo PCP - General Family Medicine 05/19/16 04/13/18 documented as of this encounter
--- OUTSIDE RECORDS SUMMARY | 2021-11-30 11:52 | XMS_ITS | Encounter Summary ---
:1955 Author Organization [facility] [place] [address] Care Team Providers Name Role Phone Chetna Loredo Primary Care Provider Unavailable Reason for Visit Reason Comments Low Back Pain Auth/Cert Specialty Diagnoses / Procedures Referred By Contact Refer red To Contact Referral ID Status Reason Start Date Expiration Date Visits Requ ested Visits Authorized [id number] 1 1 Encounter Details Date Type Department Care Team Description 08/29/2016 Treatment Physical Therapy - Lam Godwin , PT Weakness of back (Primary Dx); [facility] Chronic midline low back delvin n without sciatica; [address] Spondylosis of lumbar region without mye lopathy or radiculopathy; [place], [place] [id number] Social History Tobacco Use Types Packs/Day Years [...] this encounter Miscellaneous Notes Therapy Evaluation - Lam Godwin PT - 08/29/2016 11:15 AM EDT Physical Therapy Lumbar Spine Evaluation Payor: [facility] MANAGED CARE / Plan: [facility] BLUE OPTIONS PPO / Product Type: PPO / PT Visit Count: 1 Referring Diagnosis: M54.5, G89.29 (ICD-10-CM) - 724.2, 338.29 (ICD-9-CM) - Chronic midline low back pain without sciatica M47.816 (ICD-10-CM) - 721.3 (ICD-9-CM) - Spondylosis of lumbar region without myelopathy or radiculopathy Date of Onset: 3 year history. Referring Clinician: Chetan Whitaker,* Demographics: Age: 60 y.o. Gender: male History of Present Illness: Patient reports a 3 year history of low back pain. States he has had episodic low back pain since age 18. Describes his pain in the central low back in the lower lumbar region. States has bad knees and feels part of his back pain might be from limping because of his knee problems. States he is scheduled for a partial knee replacement on the left in October of this year. Significant Past Medical History: Past Medical History: Diagnosis Date ??? Diabetes mellitus (HCC) ??? Hyperlipemia ??? Ruptured appendix ??? Tachycardia Concurrent Services: None Therapy within Past Year: no Medications: Current Outpatient Prescriptions: ??? acetaminophen (TYLENOL) 500 MG tablet, Take 1,000 mg by mouth every 6 (six) hours as needed. , Disp: , Rfl: ??? ascorbic acid, vitamin C, (VITAMIN C) 500 MG tablet, Take 500 mg by mouth daily., Disp: , Rfl: ??? aspirin 81 MG EC tablet *ANTIPLATELET*, Take by mouth daily., Disp: , Rfl: ??? atorvastatin (LIPITOR) 20 MG tablet, Take 20 mg by mouth daily., Disp: , Rfl: ??? cyclobenzaprine (FLEXERIL) 10 MG tablet, Take 10 mg by mouth 3 (three) times daily as needed forMuscle spasms., Disp: , Rfl: ??? flecainide (TAMBOCOR) 100 MG tablet, Take 100 mg by mouth every 12 hours., Disp: , Rfl: ??? loratadine (CLARITIN) 10 mg tablet, Take 10 mg by mouth daily., Disp: , Rfl: ??? meloxicam (MOBIC) 7.5 [...] by mouth daily., Disp: , Rfl: ??? ONETOUCH DELICA LANCETS 30 gauge Misc, , Disp: , Rfl: ??? ONETOUCH ULTRA TEST Strp, , Disp: , Rfl: ??? ONETOUCH ULTRAMINI kit, , Disp: , Rfl: ??? traMADol (ULTRAM) 50 mg tablet, Take 50 mg by mouth every 6 (six) hours as needed. , Disp: , Rfl: Allergies: Allergies as of 08/29/2016 - Review Complete 08/26/2016 Allergen Reaction Noted ??? Morphine Anaphylaxis (ALLERGY) 01/31/2016 ??? 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 Posture/Stresses: Sitting, bending Sleep: Patient's sleep is disturbed. Pillows: One Sleeping Surface: medium Sleeping Posture: back and sides Patient Goals: Decrease pain, be able to walk and be more active. Pain: Pain Assessment Pain Score 1: 4 Pain Location: low back pain Pain Interventions: Therapy to tolerance Self Reported Quality of Life: At present time, patient reports having Fair quality of life/health status. OBJECTIVE General Observation: Patient ambulating in antalgic gait with decreased stance time/stride length left Lumbar Worse with: Bending, Sitting and Rising Better with: Standing and Walking Symptom Behavior Previous Episodes: Year of first episode: 3 year history Previous Treatments: Chiropractic Bladder Function: Continent Cough/Sneeze/Strain: Symptoms are increased with cough/sneeze/strain. Night Pain: Yes Unexplained Weight Loss: No Gait: Abnormal: antalgic gait, limited by knee pain LUMBAR Posture Sitting Posture: Fair Standing Posture: Good Lumbar Lordosis: Decreased Lateral Shift: None Neurological Motor Deficit: limited by bilateral knee pain Sensory Deficit: Intact by report Reflexes: 2 bilateral knee Dural Signs: SLR Negative Poor control with bilateral bridge with pain Movement Loss Flexion Loss: Major (greater than 50% loss) and Moderate (up to 50% loss) Extension Loss: Major (greater than 50% loss) Right Sidegliding Loss: Moderate (up to 50% loss) Left Sidegliding Loss: Moderate (up to 50% loss) Deviation in Flexion: None Deviation in Extension: None Test Movements Pretest Pain Standin/10 Flexion in Standing During Testing: not tested Extension in Standing During Testing: end range pain/ no worst Flexion in Lying During Testing: not tested Extension in Lying During Testing: prone to EIL to REIL end range pain/ better increased range of motion and decreased pain intensity. Sidegliding/Rotation: Not assessed/required Static Tests: Not Required Other: 1. None Required Conclusion: Rule out posterior lumbar derangement. Outcomes: Oswestry Pain Intensity: Pain comes and goes, moderate Personal Care: Washing and dressing increases pain, change way of doing it Lifting: Lift light / medium weights only if well placed Walking: Pain prevents walking more than 1/4 mile Sitting: Pain prevents sitting more than 1/2 hour Standing: Can't stand more than 1/2 hour without increasing pain Sleeping: Pain in bed, normal night's sleep reduced by less than 1/2 Social Life: Pain restricts social life, don't go out very often Travelling: Extra pain while travelling, does not seek alternate forms of travel Changing Degree of Pain: Pain gradually worsening Oswestry Total (pct): 60 Interventions: KVNG, end range pain/ no worst prone to EIL to REIL, end range pain/ better with increased extension motion and decreased pain. Instructed for trial HEP REIL x 10 every 1-2 hours as tolerated, instructed in how to monitor symptoms with exercises and to stop if symptoms worsen. Self Care/Home Management: Instructed patient in proper sitting posture with lumbar support to decrease spine strain. Discussed spine anatomy and reason for postural changes and therapeutic exercises. Discussed activities to avoid/limit at this time to avoid excessive strain. Discussed plan of care. Modalities Skin Integrity Assessment: Non Applicable Education: Yes, provided as follows: Barriers to Learning: No Barriers Learning Needs: Illness/disease, Treatment plan, Rehabilitation techniques and procedures, Precautions and When/how to obtain future treatment Education Provided: Illness/disease, Treatment plan, Rehabilitation techniques and procedures, Precautions and When/how to obtain future treatment Audience: Patient Mode: Explanation and Demonstration Landscape Manager Utilized: N/A Response: Applied knowledge and Verbalized understanding ASSESSMENT Patient presents with a chief complaint of low back pain of greater than 3 year history with worsening history. Patient reports low back pain is complicated by left greater than right knee pain and he is scheduled for a left partial knee replacement in October of 2016. Patient demonstrates major loss of lumbar flexion and extension and moderate loss of side gliding bilaterally. Patient demonstrates weakness in the core and bilateral lower extremities. Patient should benefit from physical therapy to address the range of motion and strength deficits in the spine, decrease pain, and improve overall function. Self Care/Home Management: Instructed patient in proper sitting posture with lumbar support to decrease spine strain. Discussed spine anatomy and reason for postural changes and therapeutic exercises. Discussed activities to avoid/limit at this time to avoid excessive strain. Discussed plan of care. Co morbidities: Diabetes, Tachycardia, left knee DJD requiring partial joint replacement. Therapy Diagnosis: 1. Chronic midline low back pain without sciatica Ambulatory Referral To Adult Physical Therapy 2. Spondylosis of lumbar region without myelopathy or radiculopathy Ambulatory Referral To Adult Physical Therapy Problem List: Problem List Problem List: Decreased strength, Impaired ADLs, Difficulty bending, Pain, Impaired ambulation, Difficulty lifting, Decreased ROM, Difficulty with prolonged sitting Equipment Needed: None Other Rehabilitation Considerations: Orthopedic precautions Response to Evaluation: The session was tolerated well, as evidenced by some decrease in pain intensity Rehabilitation Potential: Motivation/Commitment to Therapy: Good Rehabilitation Potential: Good Support Structure: Not applicable Goals: Time frame to achieve goal:: up to 12 weekd Goal 1: Demonstrate knowledge of proper sitting posture with support to decrease back strain Goal 2: Increase lumbar extension to a moderate limitation or better to facilitate reaching activiteis Goal 3: Increase lumbar flexion to a minimal-moderate limitation to facilitate personal care Goal 4: Decrease Oswestry score by 9 points as measure of functional imrpovement. Goal 5: Independent with a therapeutic HEP to help manage back pain. PLAN Treatment Frequency, Duration, and Interventions: Plan Treatment Frequency and duration : up to 12 visits over 12 weeks, ending 11/21/16 Recommend PT procedures: Neuromuscular Re-education, Therapeutic Exercise, Self Care / Home Management, Manual Therapy, Therapeutic Activity Necessity: Required to return to Premorbid environment (or reside in new living environment)? no Required to reduce ADL or IADL assistance to Premorbid level? yes Recommended Consults: None currently Development of Plan of Care: Patient participated in plan of care development today. Total Treatment Time (Timed & Untimed): 55 Total Time in Timed Codes: 25 The patient has been instructed to contact our clinic if any questions or problems should arise. Electronically signed by: Lam Godwin PT 08/29/16 1826 documented in this encounter Plan of Treatment Pending Results Name Type Priority Associated Diagnoses Date/Ti me Ambulatory Referral Outpatient Referral Routine Chronic midlin e low 08/29/2016 11:47 To Adult Physical back pain without AM ED T Therapy sciatica Spondylosis of lumbar region without myelopathy or radiculopathy documented as of this encounter Procedures Procedure Name Priority Date/Time Associated Diagnosis Comme nts AMB REFERRAL TO ADULT Routine 08/29/2016 11:47 AM Chronic midl ine low back PHYSICAL THERAPY EDT pain without sc iatica Spondylosis of lumbar region without myelopathy or radiculopathy documented in this encounter Visit Diagnoses Diagnosis Weakness of back - Primary Chronic midline low back pain without sc iatica Spondylosis of lumbar region without mye lopathy or radiculopathy Back stiffness Other symptoms referable to back documented in this encounter Care Teams Ticket Worker Relationship Specialty Start Date End Date Chetna Loredo PCP - General Family Medicine 05/19/16 04/13/18 documented as of this encounter
--- OUTSIDE RECORDS SUMMARY | 2021-11-30 11:52 | XMS_ITS | Encounter Summary ---
:1955 Author Organization [facility] [place] [address] Care Team Providers Name Role Phone Chetna Loredo Primary Care Provider Unavailable Reason for Referral Surgical (Routine) - Closed Specialty Diagnoses / Procedures Referred By Referred To Contact Contact Pre-Admission Diagnoses Primary osteoarthritis of both knees Susy Martínez Mc Rt [place] [phone] Phone: Fax: Referral ID Status Reason Start Expiration Visits Visits Date Date Requested Authorized [id number] Closed Evaluation and 10/17/2016 10/17/2017 1 1 Management of Comorbidity Physical Therapy (Routine) - Closed Specialty Diagnoses / Procedures Referred By Contact Refer red To Contact Physical Therapy Diagnoses Primary osteoarthritis of both knees Susy [place] [address] Referral ID Status Reason Start Date Expiration Visits Visits Date Requested Authorized [id number] Closed Evaluation and 10/17/2016 10/17/2017 1 1 Treat Reason for Visit Reason Comments Left Knee Problem 60 yo male ambulatory to community health systems without aids. Presents today for pre-op evaluation prior to l eft knee NENITA scheduled 11-01-16. Encounter Details Date Type Department Care Team Description 10/17/2016 Office Visit Orthopaedics - Susy Harden Primary osteoarthritis [address] of both knees ([place] [address] Dx) [phone] Social History Tobacco Use Types Packs/Day Years [...] Sign Reading Time Taken Comments Blood Pressure 122/76 10/17/2016 9:16 AM EDT Pulse 67 10/17/2016 9:16 AM EDT Temperature 36.3 ??C (97.4 ??F) 10/17/2016 9:16 AM EDT Respiratory Rate - - Oxygen Saturation - - Inhaled Oxygen Concentration - - Weight 115.2 kg (253 lb 15.5 oz) 10/17/2016 9:16 AM EDT Height 178 cm (5' 10.08) 10/17/2016 9:16 AM EDT Body Mass Index 36.36 10/17/2016 9:16 AM EDT documented in this encounter Functional [...] as of this encounter Patient Instructions Patient InstructionsKate Agustina Og RN - 10/17/2016 9:00 AM EDT For: Dario Mckeon : 1955 MRSA Handout Thank you for choosing [facility]. Please ask questions about your test and the information we give you. Always ask us to explain words or phrases that are not familiar. MRSA (Methicillin-Resistant Staphylococcus Aureus) What is MRSA? Staphylococcus aureus, or simply staph, is a germ that lives on the skin and in the nose of about one out of every five people. Simple staph is hard to kill with medicines called antibiotics. If thisis the case we say it is resistant. Methicillin is one of those antibiotics that doesn't work for most staph. Staph that is resistant to methicillin is called methicillin-resistant staphylococcus aureus, or MRSA. It is pronounced MUR gerry. While MRSA doesn't cause problems for most people, sometimes it can cause skin or wound infections, pneumonia, or infections in the blood. We want to reduce the risk of getting an infection caused by MRSA. To Help with that, your nurse will rub a cotton tipped swab in your nose to test for MRSA beforeyou leave the clinic. What does it mean if I have been told that I am colonized with MRSA? Colonization (Call calos LEROY hillman) means that MRSA is on or in your body, but you have no signs of an infection or illness. Preventing the spread of MRSA To prevent the spread of MRSA, your doctors, nurses and others will: ?? Clean their hands with soap and water or an alcohol-based hand rub before and after caring for every patient. ?? Carefully clean rooms and equipment. ?? Use contact precautions. Your nurse will explain precautions in more detail ?? Your doctor will prescribe Mupirocin??. Why am I being given Mupirocin??? Mupirocin?? (Mew PEER o sin) is a safe, antibiotic ointment we put in the noses of patient with MRSA. IT kills MRSA germs found in the nose. You will need to use Mupirocin?? two times a day for 5 days. ?? Use this medicine for all 5 days as prescribed ?? Not finishing your antibiotic may cause more resistant bacteria to develop ?? Do not share antibiotics with other people or save them for another time. ?? If itching, burning or stinging begins to develop, stop using the antibiotic and call your primary health doctor Should you have any questions about MRSA or Mupirocin??, please call us. [facility] Monday - Monday 8:30AM to 4:30PM All other hours: [phone] Ask for the Orthopedic Surgeon tile professional You can find more information about MRSA at: www.cdc.gov/ncidod/dhqp/ar_mrsa.html documented in this encounter Progress Notes Susy Martínez PA-C - 10/17/2016 9:00 AM EDT Dario Mckeon 60 y.o. Reason for Visit: pre-op eval/consent Left knee nenita Prior Imaging: MRI LEFT KNEE WITH CONTRAST, 08/08/2016 12:13 PM ? INDICATION: KNEE PAIN, PERSISTENT, >=7PEAP32.12 Primary osteoarthritis of left knee M54.5 Chronicmidline low back pain without sciatica G89.29 Chronic midline low back pain without sciatica COMPARISON: 04/25/2016 radiographs ? TECHNIQUE: Multi-planar, multi-sequence MR imaging of the left knee was performed without contrast. ? FINDINGS: ? . Bone: No fracture, avascular necrosis, or marrow replacement. Degenerative subchondral marrow change within the peripheral aspects of the medial femoral condyle and medial tibial plateau. . Cruciate ligaments: Intact. . Collateral ligaments: Intact. . Medial meniscus: Complex tear at the junction of the posterior horn and body (series 6 images 10-14) with extrusion. . Lateral meniscus: Intact. . Medial compartment: Areas of full-thickness cartilage loss along the weightbearing portions medialfemoral condyle and medial tibial plateau. . Lateral compartment: Small focal areas of full-thickness cartilage loss along the weightbearing portions lateral femoral condyle and lateral tibial plateau. . Patellofemoral compartment: Focal areas of full-thickness cartilage loss along the lateral patellar facet and lateral trochlea. Background partial thickness cartilage loss. . Extensor mechanism: Intact. . Joint: No malalignment. Small knee joint effusion and synovitis. Small proximal tibiofibular jointeffusion. Intermediate signal noted along the course of the popliteal tendon sheath consistent with synovitis. . Soft tissues: Small leaking Kraus cyst. Extensive subcutaneous soft tissue varicosities. Small multiloculated cystic structure along the posterior aspect of the PCL consistent with a ganglion cyst. ? CONCLUSION: ?? 1. Complex tear of the medial meniscus with extrusion. 2. Tricompartmental degenerative changes, worst in the medial compartment with large areas of full-thickness cartilage loss. 3. Small knee joint effusion with synovitis tracking along the course of the popliteal tendon sheath. 4. Small leaking Kraus cyst. HPI: This patient presents for a pre-op evaluation before a left knee medial makoplasty scheduled for 11/01/2016 at [facility]. He is having persisting symptoms of mostly medial sided knee pain when weight-bearing. The procedure, risks, and possible benefits were discussed, and the patient is ready to proceed with the surgery. All of his questions have been answered and the patient is in agreement with the plan of care. Past Medical History: Diagnosis Date ??? Diabetes [...] as needed. - Oral Class: Historical Med aspirin 81 [...] 12 hours. - Oral Class: Historical Med hydrocortisone 1 % cream Sig - Route: Apply 1 application topically as needed. - Topical Class: Historical Med LIDOCAINE HCL (ASPERCREME, LIDOCAINE, TOP) Sig - Route: Apply 1 application topically as needed. - Topical (Top) Class: Historical Med loratadine (CLARITIN) 10 mg tablet Sig - Route: Take 10 mg by mouth daily as needed. - Oral Class: Historical Med meloxicam (MOBIC) [...] mouth daily. - Oral Class: Historical Med traMADol (ULTRAM) 50 mg tablet Sig - Route: Take 50 mg by mouth every 6 (six) hours as needed. - Oral Class: Historical Med vortioxetine (TRINTELLIX) 5 mg tablet Sig - Route: Take 5 mg by mouth daily. - Oral Class: Historical Med ascorbic acid, vitamin C, (VITAMIN C) 500 MG tablet Sig - Route: Take 500 mg by mouth daily. - Oral Class: Historical Med Vitals: 10/17/16 0916 BP: 122/76 Pulse: 67 Temp: 97.4 ??F (36.3 ??C) PainSc: 3-Three (mild) Comment: left knee Height: 1.78 m (5' 10.08) Weight: 115.2 kg (253 lb 15.5 oz) BMI (Calculated): 36.4 Physical Exam: Patient is alert, awake and oriented General: NAD Chest: clear Heart: RRR Abdomen: soft Exam Hips: Symmetric ROM, no groin pain with flexion or rotation. No TTP laterally. Examination of left knee: Skin is intact. No swelling. Previous skin incisions are present. Effusion is absent. ROM 0-100 degrees. Pain behavior is present. The patient does have arthritic crepitus and pain. The patient does have bony tenderness to palpation. Patient has no joint line tenderness. Vladimir test is negative Emili <5 mm, firm endpoint. Ligamentous exam is normal. Quad strength is weak. Normal straight leg raise. There is not a palpable defect in the extensor mechanism. Distal ankle and foot strength is normal. The patient walks with antalgic gait. Popliteal angles are normal. Overall limb alignment is neutral Patella tracks moderately. J sign: negative. Patellofemoral compression yields positive crepitus and negative pain. Contralateral knee exam - ROM 0-120 degrees. Stable to varus and valgus stress. Stable anterior/posterior exam. Normal strength and sensation distally. Imaging: none today - pt scheduled for CT scan today Assessment: 1. Primary osteoarthritis of both knees Total Joint Bundle Patient Educate on Pre-Op CHX bath SA/MRSA Pre Op Screen Hemoglobin A1C CBC Albumin Prealbumin Basic Metabolic Panel Internal Ambulatory Referral to PT (Pre and Post Op) [place] Bedside Commode Ambulatory Referral To Anesthesiology (Pre-Operative Assessment Clinic) Plan: - Updated H&P and informed consent obtained today. - Thorough discussion was held regarding: what to expect on day of and procedural steps risks and future expectations early post-op care and red flags patient's health and medications - Patient expressed understanding and all questions were answered. Instructed to please contact if any further questions or concerns. Electronically signed by: Susy Martínez PA-C 10/17/2016 9:44 AM Electronically signed by: Susy Martínez PA-C 10/19/16 0917 Kate Og RN - 10/17/2016 9:00 AM EDT 1. Joint replacement book given. 2. Chlorhexidine given with instructions for use. 3. MRSA handouts and instruction given. 4. MRSA swab obtained. 5. TJ Lab instruction Electronically signed by: Susy Martínez PA-C 10/19/16 0917 documented in this encounter Plan of Treatment Scheduled Referrals Name Type Priority Associated Diagnoses Order S chedule Internal Outpatient Routine Primary osteoarthritis 1 Occ urrences Ambulatory Referral of both knees starting Referral to PT 10/17/2016 un til (Pre and Post Op) 10/17/2017 documented as of this encounter Procedures Procedure Name Priority Date/Time Associated Diagnosis Comme nts SA/MRSA PRE OP Routine 10/17/2016 9:53 AM Primary osteoarthrit is Results for this SCREEN EDT of both knees procedure are in the results section. documented in this encounter Results Basic Metabolic Panel (10/17/2016 12:46 PM EDT) P athologist Signature Sodium 139 135 - 146 10/17/2016 [facility] MMOL/L 1:48 PM EDT [facility] Potassium 4.1 3.5 - 5.3 10/17/2016 [facility] MMOL/L 1:48 PM EDT [facility] [...] 10/17/2016 1:[address] [place] [address] MG/DL EDT [facility] Calcium 9.3 8.5 - 10.5 MG/DL 10/17/2016 1:48 PM [place] [facility] EDT [facility] Anion Gap 8 4 - 14 MMOL/L 10/17/2016 1:48 PM [place] [facility] EDT [facility] Est. GFR Non- >60 10/17/2016 1:48 PM [facility] Comment: GFR is calculated by IDMS traceable MDRD method, and the result is about 5% lower than previously reported results (prior to Mar 28, 2011). Est. GFR >60 10/17/2016 1:4 8 PM EDT [facility] Comment: GFR is calculated by IDMS traceable MDRD method, and the result is about 5% lower than previously reported results (prior to Mar 28, 2011). Specimen Anatomical Collection Method / Collection Time Recei ericka Time (Source) Location / Volume Laterality Blood specimen Venipuncture / 10/17/2016 12:46 017 (specimen) Unknown PM EDT 12:46 PM EDT Susy [facility] LAB BLOOD ORDERABLES Performing Organization Address [facility]/ZIP [facility] Phon e Number [facility] CLIA# [id number] [place] [address] [facility] Prealbumin (10/17/2016 12:46 PM EDT) P athologist Signature Prealbumin 26.5 14.0 - 40.0 10/17/2016 [facility] MG/DL 1:48 PM EDT [facility] Specimen Anatomical Collection Method / Collection Time Recei ericka Time (Source) Location / Volume Laterality Blood specimen Venipuncture / 10/17/2016 12:46 017 (specimen) Unknown PM EDT 12:46 PM EDT Susy [facility] LAB BLOOD ORDERABLES Performing Organization Address City/[facility]/ZIP [facility] Phon e Number [facility] CLIA# [id number] [place] [address] [facility] Albumin (10/17/2016 12:46 PM EDT) P athologist Signature Albumin 4.3 3.5 - 5.0 10/17/2016 [facility] G/DL 1:48 PM EDT [facility] Specimen Anatomical Collection Method / Collection Time Recei ericka Time (Source) Location / Volume Laterality Blood specimen Venipuncture / 10/17/2016 12:46 017 (specimen) Unknown PM EDT 12:46 PM EDT Susy Amy Mauricio LAB BLOOD ORDERABLES Performing Organization Address City/State/ZIP Code Phon e Number [facility] CLIA# [id number] [place] [address] [facility] (ABNORMAL) CBC (10/17/2016 12:46 PM EDT) P athologist Signature WBC 7.9 4.8 - 10.8 10/17/2016 [facility] X 10^3/uL 1:25 PM EDT [facility] RBC 4.56 (L) 4.70 - 6.10 10/17/2016 [facility] X 10^6/uL 1:25 PM EDT [facility] Hemoglobin 13.2 (L) 14.0 - 18.0 10/17/2016 [facility] G/DL 1:25 PM EDT [facility] Hematocrit 39.7 (L) 42.0 - 52.0 10/17/2016 [facility] % 1:25 PM EDT [facility] MCV 87.1 80.0 - 94.0 10/17/2016 [facility] [place] 1:25 PM EDT [facility] MCH 28.9 27.0 - 31.0 10/17/2016 [place] [facility] PG 1:25 PM EDT [facility] MCHC 33.2 33.0 - 37.0 10/17/2016 [place] [facility] G/DL 1:25 PM EDT [facility] RDW 14.0 11.5 - 14.5 10/17/2016 [facility] % 1:25 PM EDT [facility] Platelets 302 160 - 360 X 10/17/2016 [facility] 10^3/uL 1:25 PM EDT [facility] MPV 7.7 6.8 - 10.2 10/17/2016 [facility] [place] 1:25 PM EDT [facility] Specimen Anatomical Collection Method / Collection Time Recei ericka Time (Source) Location / Volume Laterality Blood specimen Venipuncture / 10/17/2016 12:46 017 (specimen) Unknown PM EDT 12:46 PM EDT Susy Martínez LAB BLOOD ORDERABLES Performing Organization Address City/[facility]/ZIP Code Phon e Number [facility] CLIA# [id number] [place] [address] [facility] (ABNORMAL) Hemoglobin A1C (10/17/2016 12:46 PM EDT) athologist Signature HEMOGLOBIN A1C 5.9 (H) <5.7 % 10/17/2016 [facility] 2:11 PM EDT [facility] Comment: Normal: ? Less than 5.7% Prediabetes: ??5.7% to 6.4% Diabetes: ? Greater than 6.4% eAG 123 MG/DL 10/17/2016 2:11 PM EDT [facility] eAG Comment 10/17/2016 2:11 PM EDT [facility] Comment: The [employer] on has supported the use [...] Martínez LAB BLOOD ORDERABLES Performing Organization Address City/[facility]/ZIP Code Phon e Number [facility] CLIA# [id number] [place] [address] [facility] SA/MRSA Pre Op Screen (10/17/2016 9:53 AM EDT) athologist Signature S AUREUS/MRSA Negative Negative 10/19/2016 [facility] 8:46 AM EDT [facility] Health 123 Specimen Anatomical Collection Method Collection Time Receive d Time (Source) Location / / Volume Laterality Nasal 10/17/2016 9:53 AM 7 EDT 12:13 PM EDT Narrative [facility] - 0 10/19/2016 8:46 AM EDT This test is intended as a screening test for detection of colonization with S. aureus and MRSA. Ther e is a risk of false negative values due to the presence of low numbers of organisms present. This test is intended as a screening jin t for detection of colonization with S. aureus and MRSA. There is a risk of false negative values due to the presence of low numbers of organisms present. Susy Martínez LAB BLOOD ORDERABLES Performing Organization Address City/State/ZIP Code Phon e Number [facility] CLIA# [id number] [place] [address] [facility] documented in this encounter Visit Diagnoses Diagnosis Primary osteoarthritis of both knees - P rimary documented in this encounter Care Teams Irrigation District Manager Relationship Specialty Start Date End Date Chetna Loredo PCP - General Family Medicine 05/19/16 04/13/18 documented as of this encounter
--- OUTSIDE RECORDS SUMMARY | 2021-11-30 11:52 | XMS_ITS | Encounter Summary ---
:1955 Author Organization [facility] [place] [address] Care Team Providers Name Role Phone Chetna Loredo Primary Care Provider Unavailable Encounter Details Date Type Department Care Team Description 07/28/2016 Hospital Encounter Diagnostic Imaging - Nasir Vega PA-C [address] [address] [facility] [address] [place], [place] [address] [place], [place] [phone] [id number] (Wo rk) Social History Tobacco Use Types [...] mg by 0 11/01/2016 tablet mouth daily. metoPROLOL tartrate Take 50 mg by 0 (LOPRESSOR) 50 MG tablet mouth 2 times daily. multivitamin capsule Take 1 capsule by 0 03/01/2021 mouth daily. TOPROL XL 50 mg 24 hr 0 07/01/201606/2016 tablet traMADol (ULTRAM) 50 mg Take 50 mg by 0 6 11/01/2016 tablet mouth every 6 (six) hours as needed. documented as of this encounter Plan of Treatment Not on filedocumented as of this encounter Procedures Procedure Name Priority Date/Time Associated Diagnosis Comme nts XR SPINE LUMBAR STAT 07/28/2016 11:22 Primary osteoarthriti s Results for this (AP+LAT+OBLIQUES) AM EDT of left knee procedure are in Chronic midline low the resu lts back pain without section. sciatica documented in this encounter Results XR SPINE LUMBAR (AP+LAT+OBLIQUES) (07/28/2016 11:22 AM [...] Minimal dextrocurvature centered at L 3. Nasir [facility] ORDER MASOUD documented in this encounter Visit Diagnoses Diagnosis Primary osteoarthritis of left knee Chronic midline low back pain without sc iatica documented in this encounter Care Teams Lighting Specialist Relationship Specialty Start Date End Date Facundo, Chetna Eda PCP - General Family Medicine 05/19/16 04/13/18 documented as of this encounter
--- OUTSIDE RECORDS SUMMARY | 2021-11-30 11:52 | XMS_ITS | Encounter Summary ---
:1955 Author Organization [facility] [place] [address] Care Team Providers Name Role Phone Chetna Loredo Primary Care Provider Unavailable Reason for Referral MRI/CT/PET Scan (Routine) - Closed Specialty Diagnoses / Procedures Referred By Contact Refer red To Contact Radiology Diagnoses Arthritis of knee Miguelito Manuel MD [facility] Imaging Procedures CT LOWER EXTREMITY LEFT (YOUSIF PROTOCOL) [address] [place] [phone] Phone: Fax: Referral ID Status Reason Start Date Expiration Date Visits Requ ested Visits Authorized [id number] Closed 10/04/2016 12/02/2016 1 1 Reason for Visit MRI/CT/PET Scan (Routine) - Closed Specialty Diagnoses / Procedures Referred By Contact Refer red To Contact Radiology Diagnoses Arthritis of knee Miguelito Manuel MD [address] Imaging Procedures CT LOWER EXTREMITY LEFT (YOUSIF PROTOCOL) [address] [address] 6 [place] [address] Phone: Fax: Referral ID Status Reason Start Date Expiration Date Visits Requ ested Visits Authorized [id number] Closed 10/04/2016 12/02/2016 1 1 Encounter Details Date Type Department Care Team Description 10/17/[address] Imaging - Miguelito Tamayo MD [address] [place] [id number] [phone] Social History Tobacco Use Types Packs/Day Years [...] Priority Date/Time Associated Diagnosis Comme nts CT LOWER EXTREMITY Routine 10/17/2016 1:53 PM Arthritis of kne e Results for this LEFT (YOUSIF EDT procedure are i n PROTOCOL) the results section. documented in this encounter Results CT LOWER EXTREMITY LEFT [...] images were generated and reviewed as needed. [facility] Radiology and its affiliates are committed [...] of knee COMPARISON: Routine mammogram of the abdifatahe es dated 05/05/2016 and MR of the left knee dated 08/08/2016 TECHNIQUE: Thin-section images of the le ft lower extremity were obtained without contrast using the YOUSIF Protocol. Supplemental 2D reformatted images were generated and reviewed as needed. [facility] Radiology and its affiliates are committed [...] findings. Miguelito Manuel MD IMG CT ORDERABLES documented in this encounter Visit Diagnoses Diagnosis Arthritis of knee Unspecified arthropathy, lower leg documented in this encounter Care Teams Specimen Transporter Relationship Specialty Start Date End Date Chetna Loredo PCP - General Family Medicine 05/19/16 04/13/18 documented as of this encounter
--- OUTSIDE RECORDS SUMMARY | 2021-11-30 11:52 | XMS_ITS | Encounter Summary ---
:1955 Author Organization [facility] [place] [address] Care Team Providers Name Role Phone Chetna Loredo Primary Care Provider Unavailable Encounter Details Date Type Department Care Team Description 10/12/2016 Telephone Pharmacy Servando Ferraro, [place], [place] [address] [facility] [phone] [facility] [address] Social History Tobacco Use Types Packs/Day Years [...] this encounter Miscellaneous Notes Telephone Encounter - Servando Ferraro CPhT - 10/12/2016 11:01 AM EDT Medication and allergy information confirmed over the phone. By Certified Medication List [facility] Electronically signed by: Servando Ferraro CPhT10/12/2016 11:01 AM Anticipated surgery date of 11/01/16 Electronically signed by: Servando Ferraro CPhT 10/12/16 1105 documented in this encounter Plan of Treatment Not on filedocumented as of this encounter Visit Diagnoses Not on filedocumented in this encounter Care Teams Senior Water Resources Engineer Relationship Specialty Start Date End Date Chetna Loredo PCP - General Family Medicine 05/19/16 04/13/18 documented as of this encounter
--- OUTSIDE RECORDS SUMMARY | 2021-11-30 11:52 | XMS_ITS | Encounter Summary ---
:1955 Author Organization [facility] [place] [address] Care Team Providers Name Role Phone Chetna Loredo Primary Care Provider Unavailable Reason for Visit Auth/Cert Specialty Diagnoses / Procedures Referred By Contact Refer red To Contact Diagnoses Unilateral primary osteoarthritis, left knee Arthritis of knee [M17.10] Procedures GA PLASTY KNEE,MED OR LAT COMPARTMT GA ARTHROPLASTY PATELLA GA ROBOTIC SURGICAL SYSTEM NENITA - UNICOMPARTMENTAL KNEE REPLACEMENT - ROBOTIC Referral ID Status Reason Start Date Expiration Date Visits Requ ested Visits Authorized [id number] 1 1 Encounter Details Date Type Department Care Team Description 11/01/2016 Surgery Outpatient Surgical Sherwin Manuel MD MEDIAL NENITA - Services - [address] [place] [address] [address] UNICOMP ARTMENTAL KNEE [facility] - ROBOT[facility] [place] [[id number] (CP T??)] [place] [address] [place], [place] [phone] (Work) [phone] Surgery Details Date/Time Status Location OR Service Patient Case Class Case Tr auma Class Type Case? 11/01/16 6:45 Posted [facility]PATIENT [facility] Schedule d AM OR 23 Outpatient (OP/Surg Surgery Admit-Sched ) (>) 5 days Panel 1 Procedure LRB Anes Op Region Wound Class Commen ts MEDIAL NENITA - UNICOMPARTMENTAL KNEE Left General Knee Clean REPLACEMENT - ROBOTIC Surgeon Surgeon Role Service Panel Miguelito Manuel MD Primary Orthopedics 1 Milan Calvert MD Fellow 1 Special Needs AC: CASE RM [address] MANUEL/140 MIN PER CGCT: 10/17niddm documented in this encounter Social History Tobacco [...] trim incision sutures. 9. Ok to wash YAMILET hose with cold water. Air dry to [...] If you have any questions please call [phone]. 15. Preform chlorhexadine bath the day after your surgery and the following day- for a total of 2 chlorhexadine baths after your surgery. Do NOT wash face, groin, or incision. AttachmentsThe following attachments cannot be sent through Care Everywhere. LAXATIVE, STOOL SOFTENERS (BY MOUTH) (JORDANIAN)ONDANSETRON (BY MOUTH, INTO THE MOUTH) (JORDANIAN)OXYCODONE, RAPID RELEASE (BY MOUTH) (JORDANIAN)KNEE ARTHROSCOPY (DISCHARGE CARE) (JORDANIAN)documented in this encounter Medications at Time of [...] Asa 325 BID -change to aquacel today JoelPiyush Yandy Barakat Pager [phone] PGY-III Electronically signed: 11/02/2016 11:55 AM Electronically signed by: Karsten Barakat MD Resident 11/02/16 1200 documented in this encounter H&P Notes Milan Fofana Enrike - 11/01/2016 6:41 AM EDT Orthopedic Admission History & Physical PATIENT MARKED AND CONSENTED Dario Mckeon 60 y.o. ?? Reason for Visit: pre-op eval/consent Left knee nenita ?? Prior Imaging: MRI LEFT KNEE WITH CONTRAST, 08/08/2016 12:13 PM ? INDICATION: ??KNEE PAIN, PERSISTENT, >=0VQHA30.12 Primary osteoarthritis of left knee M54.5 Chronic [...] knee medial makoplasty scheduled for 11/01/2016 at [facility]. He is having persisting symptoms of mostly [...] ?? Patient has no joint line tenderness. Vladimir test is negative ?? Emili <5 mm, [...] RN, patient awake and alert, rates pain 11/24, will continue to monitor Electronically signed by: Crystal Lujan RN 11/01/16 1035 Shabnam Geiger RN - 11/01/2016 9:56 AM EDT Xray complete at bs. Electronically signed by: Shabnam Geiger RN 11/01/16 0956 Shabnam Geiger RN - [...] stand by assistance. Outcomes: Date/Time User Outcome 11/02/16 0931 Jovany Easley, PT Completed Goal: Stairs (Resolved) Dates: Start: 11/01/16 Expected End: 11/22/16 End: 11/02/16 Description: Patient will go up and down 5 steps with stand by assistance. Outcomes: Date/Time User Outcome 11/02/1631 Jovany Easley PT Completed Goal: Education (Resolved) Dates: Start: 11/01/16 Expected End: 11/22/16 End: 11/02/16 Description: Patient/family will be independent with HEP and understand all education and precautions. Outcomes: Date/Time User Outcome 11/02/1631 Jovany Easley PT Completed Plan Interventions Future Interventions: Gait training, Therapeutic exercises (comment), Patient/caregiver education, Discharge planning, Therapeutic activities (comment) PT Frequency: 1 visit in am Subjective Informed Consent Consent for treatment given by the patient. Nurse gave clearance to see patient. Pain: 8/, medication given by nursing, activity to tolerance, [...] Total Treatment Time: 30 minutes Time In: 0855 Time Out: 09 Charges 11/02/2016 Code Description Service Provider Modifiers Quantity [id number] Hc Therapeutic Exercise Each 15 Min Jovany Easley, PT GP 1 [id number] Hc Therapeutic Activity Each 15 Min Jovany [...] home with prn assistance and outpatient PT. [facility] AM-PAC?6 Clicks?? Basic Mobility Inpatient Short [...] to Sit Assist Level: Stand by assistance AM-[facility] SF - Mobility: How much difficulty turning [...] 11/01/2016 Code Description Service Provider Modifiers Quantity [id number] Hc Therapeutic Exercise Each 15 Min Jovany Easley, PT GP 1 [id number] Hc Pt Eval Low Complex Jovany Easley, PT GP 1 Time of [...] to observation post op. Report received from BERNRAD Haque. IV infusing. VSS. All belongings are with the patient. Family notified of arrival. Will monitor patient and wait for furtherorders. Electronically signed by: Johanna Coornel RN 11/01/16 1135 Op Note - Miguelito Manuel MD - 11/01/2016 7:41 AM EDT [...] for pain medicine and physical therapy standard [facility] postoperative protocol. Follow up in two [...] Electronically signed by: Miguelito Manuel MD 11/01/16 2139 SNC Call Note - Helen Kan RN - 10/13/2016 4:14 PM EDT SNC call complete. All appropriate screenings complete. PAC appointment date/time and location confirmed with patient. Opportunity for questions given and answered. [facility] phone number provided to [...] with cane ADL's: Independent Transportation: Personal (significant other-Johnana [phone]) Discharge Plan Post Procedure: Home with family after discharge from hospital to self-care if approved from inpatient standpoint. Inpatient CM/SW discharge planning to assess needs for discharge. Overall Assessment: SNC screen completed by patient. PAC & all other appts confirmed with patient. Instructed to bring a good list of current medications to PAC appointment for biological science technician to review. SNC recall number given [...] - AM EDT ROBOTIC Special Needs AC: 11/14ST CASE RM [address] MANUEL/140 MIN [...] S (ABNORMAL) CBC (11/01/2016 9:51 AM EDT) P athologist Signature WBC 9.2 4.8 - 10.8 11/01/2016 [place] EPISCOPAL X 10^3/uL 10:13 AM EDT [facility] RBC 4.10 (L) 4.70 - 6.10 11/01/2016 [place] EPISCOPAL X 10^6/uL 10:13 AM EDT [facility] Hemoglobin 11.9 (L) 14.0 - 18.0 11/01/2016 [place] EPISCOPAL G/DL 10:13 AM EDT [facility] Hematocrit 35.6 (L) 42.0 - 52.0 11/01/2016 [place] EPISCOPAL % 10:13 AM EDT [facility] MCV 86.7 80.0 - 94.0 11/01/2016 [place] EPISCOPAL FL 10:13 AM EDT [facility] MCH 29.0 27.0 - 31.0 11/01/2016 [place] EPISCOPAL PG 10:13 AM EDT [facility] MCHC 33.4 33.0 - 37.0 11/01/2016 [place] EPISCOPAL G/DL 10:13 AM EDT [facility] RDW 14.4 11.5 - 14.5 11/01/2016 [place] EPISCOPAL % 10:13 AM EDT [facility] Platelets 257 160 - 360 X 11/01/2016 [place] EPISCOPAL 10^3/uL 10:13 AM EDT [facility] MPV 7.6 6.8 - 10.2 11/01/2016 [place] EPISCOPAL FL 10:13 AM EDT [facility] Specimen Anatomical Collection Method / Collection Time Recei ericka Time (Source) Location / Volume Laterality Blood specimen Venipuncture / 11/01/2016 9:51 11/02/19 17 9:51 (specimen) Unknown AM EDT AM EDT Miguelito Manuel MD LAB BLOOD ORDERABLES Performing Organization Address City/State/ZIP Code Phon e Number [facility] CLIA# [id number] [place] [address] PATH [facility] Ines POCT Glucose (11/01/2016 9:33 AM EDT) P [...] Arthritis of knee Unspecified arthropathy, lower leg Arthritis of knee [...] Given 11/01/2016 8:58 PM EDT 325 mg bupivacaine-EPINEPHrine (PF) 0.25 Given 11/01/2016 8:00 AM EDT 6 0 mLs Other %-1:200,000 injection As needed, Starting on Mon11/01/16 at 0800, Intra-op ceFAZolin (ANCEF) IVPB 2 g New Bag 11/01/2016 11:07 PM EDT 2 g 260 mL/hr 2 g Every 8 hours, Intravenous, Administer over 30 Minutes, First dose on Mon11/01/16 at 1530, For 2 doses, Purpose: Prophylaxis New Bag 11/01/2016 5:45 PM EDT 2 g 260 mL/hr HYDROmorphone (DILAUDID) injection 0.1 m g 0.1 mg Every 4 hours PRN, Intravenous, B reakthrough pain, Starting on Mon11/01/16 at 1125, Post-op Nursing Unit ketorolac (TORADOL) injection Given 11/01/2016 8:01 AM EDT 30 mg Other As needed, Starting on Mon11/01/16 at 0801, Intra-op lactated ringers infusion New Bag 11/01/2016 6:12 PM EDT 30 mL/hr at [...] Given 11/01/2016 11:20 PM EDT 15 mg sodium chloride 0.9 % irrigation Given 11/01/2016 8:05 AM EDT 250 mLs Other As needed, Starting on Mon11/01/16 at 0800, Intra-op Given 11/01/2016 8:02 AM EDT 3,000 mLs Other Given 11/01/2016 8:00 AM EDT 1,000 mLs Other sterile water for irrigation solution Given 11/01/2016 8:00 AM EDT 1,000 mLs Other As needed, Starting on Mon11/01/16 at 0800, Intra-op tamsulosin (FLOMAX) capsule 0.4 mg Given 11/02/2016 [...] Rosalva Velez, BERNARD)1820 (Stopped - Provider: Rosalva Velez, BERNARD)2307 (New Bag - Provider: Breana Pineda, BERNARD) 0123 (Stopped - Provider: Breana Pineda, BERNARD) 2 g Every 8 hours, Intravenous, Administ er over 30 Minutes, First dose on Mon11/01/16 at 1530, For 2 doses, Purpose: Prophylaxis oxyCODONE (ROXICODONE) immediate release tablet 5 mg (COMPLE YAMILET) 1040 (Given - Provider: Crystal Lujan, BERNARD) 5 mg Once, Oral, Mon11/01/16 at 1130, PACU tamsulosin (FLOMAX) capsule 0.4 mg 0621 (Given - Provider: Breana Pineda, BERNARD) 0.4 mg Daily, Oral, First dose on Mon11/02/16 at 0600 Continuous Medication Order 10/31/2016 11/01/2016 11/02/2016 lactated ringers infusion 1220 (Canceled Entry - Provider: Johanna Coronel RN - Comment: for pre op holding order)1812 (New Bag - Provider: Rosalva Velez, BERNARD) at 30 mL/hr, Intravenous, Continuous, St arting [...] mg 1304 (Given - Provider: Rosalva Velez, RN)1812 (Given - Provider: Rosalva Velez, RN)2320 (Given - Provider: Breana Pineda, RN) 0510 (Given - Provider: Breana Pineda, RN)0904 (Given - Provider: Minda Iraheta, BERNARD) 5-15 mg Every 3 hours PRN, Oral, 5 mg mi ld pain, 10mg mod, 15mg severe, Starting Mon11/01/16 at 0647 sodium chloride 0.9 % irrigation (CANCELED) 0800 (Given - Provider: Miguelito Manuel MD - Comment: left knee)0802 (Given - Provider: Miguelito Manuel MD - Comment: left knee)0805 (Given - Provider: Miguelito Manuel MD - Comment: for NENITA robot irrigation) As needed, Starting Mon11/01/16 at 0800, Intra-op sterile water for irrigation solution (CANCELED) 0800 (Given - Provider: Miguelito Manuel MD - Comment: used for instrument rinse) As needed, Starting Mon11/01/16 at 0800, Intra-op documented in this encounter Care Teams Chief Jailer Relationship Specialty Start Date End Date Chetna Loredo PCP - General Family Medicine 05/19/16 04/13/18 documented as of this encounter
--- OUTSIDE RECORDS SUMMARY | 2021-11-30 11:53 | XMS_ITS | Encounter Summary ---
:1955 Author Organization [facility] [place] [address] Care Team Providers Name Role Phone Pascual Benoit MD Unavailable Neal Breen MD Primary Care Provider Shell Freeman Unavailable Encounter Details Date Type Department Care Team Description 04/19/2019 Travel Social History Tobacco Use Types Packs/Day Years Used Date Former Smoker Smokeless Tobacco: Never Used Sex Assigned at Date Recorded Not on file documented as of this encounter Plan of Treatment Upcoming Encounters Date Type Specialty Care Team Description 01/04/2022 Office Visit Urology Dayna White MD [address] [facility] [place], [place] [address] (Wo rk) documented as of this encounter Visit Diagnoses Not on filedocumented in this encounter Care Teams Sole Layer Relationship Specialty Start Date End Date Neal Breen MD PCP - General Family Medicine 01/21/19 Pascual Benoit MD Otolaryngology 08/17/17 [address] [place] [address] Shell Freeman PA Physician Neighborhood Conservation Officer Physician Neighborhood Conservation Officer 01/21/[address] [place] [address] [place] [address] documented as of this encounter
--- OUTSIDE RECORDS SUMMARY | 2021-11-30 11:53 | XMS_ITS | Encounter Summary ---
:1955 Author [facility] [place] [address] Care Team Providers Name Role Phone Pascual Benoit MD Unavailable Neal Breen MD Primary Care Provider Shell Freeman Unavailable Encounter Details Date Type Department Care Team Description 02/03/2021 Ancillary Procedure [facility] Shell Virk PA Urology ([address] [place] [phone] (Darrel avila) Social History Tobacco Use Types Packs/Day Years Used Date Former Smoker Smokeless Tobacco: Never Used Sex Assigned at Date Recorded Not on file COVID-19 Exposure Response Date Recorded In the last month, have you been in contact with No / Unsure 02/03/2021 9:59 AM EDT someone who was confirmed or suspected to have Coronavirus / COVID-19? documented as of this encounter Plan of Treatment Upcoming Encounters Date Type Specialty Care Team Description 01/04/2022 Office Visit Urology Dayna White MD [address] [place] [address] [place], [place] [address] (Darrel avila) documented as of this encounter Procedures Procedure Name Priority Date/Time Associated Diagnosis Comme nts XR ABDOMEN AP Routine 02/03/2021 10:26 AM Aftercare following Results for this EDT surgery of the procedure are in genitourinary sy stem the results S/P extracorporeal shock sec tion. wave therapy Nephrolithiasis Chronic bilateral low back pain without sciatica DJD (degenerative joint disease), lumbosacral documented in this encounter Results XR Abdomen Ap (02/03/2021 10:26 AM EDT) Anatomical Region Laterality Modality Abdomen Computed Radiography Specimen (Source) Anatomical Location Collection Method / Collectio n Time Received Time / Laterality Volume Impressions 02/03/2021 10:19 AM EDT Study was ordered and performed in clinic. It was interpreted by ordering provider. Please see office note dated 02/03/2021 for results Shell MENG IMG DIAGNOSTIC IMAGING ORDER MASOUD documented in this encounter Visit Diagnoses Not on filedocumented in this encounter Care Teams Machine Erector Relationship Specialty Start Date End Date Neal Breen MD PCP - General Family Medicine 01/21/19 Pascual Benoit MD Otolaryngology 08/17/17 [address] [place] [address] Shell Freeman PA Physician Analytics Architect Physician Analytics Architect 01/21/19 [address] [facility] [place] [address] documented as of this encounter
--- OUTSIDE RECORDS SUMMARY | 2021-11-30 11:53 | XMS_ITS | Encounter Summary ---
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 Fady Ndiaye MD Du Urology Procedures [facility] [address] [place] [address] [place] [address] [address] [place] [address] [place] [address] Fax: Referral ID Status Reason Start Date Expiration Date Visits Requ ested Visits Authorized [id number] Closed 10/24/2019 04/20/2020 1 1 Encounter Details Date Type Department Care Team Description 10/24/2019 Ancillary Procedure [facility] Leroy Moncada, Urology ([place]) [address] [place] [address] Dr Mckenna [place], [place] [address] [address] [place] [address] [phone] (Wo rk) Social History Tobacco Use Types Packs/Day Years Used Date Former Smoker Smokeless Tobacco: Never Used Sex Assigned at Date Recorded Not on file COVID-19 Exposure Response Date Recorded In the last month, have you been in contact with No / Unsure 10/24/2019 11:19 AM EDT someone who was confirmed or suspected to have Coronavirus / COVID-19? documented as of this encounter Plan of Treatment Upcoming Encounters Date Type Specialty Care Team Description 01/04/2022 Office Visit Urology Dayna White MD [address] [facility] [place], [place] [address] (Darrel avila) Pending Results Name Type Priority Associated Diagnoses Date/Ti ks US [facility] Imaging Today Other stricture of bulbous 10/24/2019 11:51 AM EDT urethra in male documented as of this encounter Visit Diagnoses Not on filedocumented in this encounter Care Teams Vibration Engineer Relationship Specialty Start Date End Date Neal Breen MD PCP - General Family Medicine 01/21/19 Pascual Benoit MD Otolaryngology 08/17/17 [address] [place] [facility] [place] [address] Shell Freeman PA Physician Manager Rail Physician Manager Rail 01/21/19 [address] [facility] [place] [address] documented as of this encounter
--- OUTSIDE RECORDS SUMMARY | 2021-11-30 11:53 | XMS_ITS | Encounter Summary ---
:1955 Author Organization [facility] [place] [address] Care Team Providers Name Role Phone Pascual Benoit MD Unavailable Neal Breen MD Primary Care Provider Shell Freeman Unavailable Reason for Referral Consultation (Routine) - Canceled Specialty Diagnoses / Procedures Referred By Contact Refer red To Contact Neurosurgery Diagnoses Chronic bilateral low back pain without sciatica DJD (degenerative joint disease), lumbosacral Shell Freeman, PA Ss Neurology [address] [facility] [address] [place] [id number] Referral ID Status Reason Start Date Expiration Visits Visits Date Requested Authorized [id number] Canceled Transfer of 02/03/2021 08/01/2021 1 1 Care for Problem Reason for Visit Reason Comments Post-op post litho kub Encounter Details Date Type Department Care Team Description 02/03/2021 [facility] [employer] Shell Freeman, Aftercare following surgery of the genitourinary system (Primary Dx); [facility] JAIRO S/P extracorporeal shock wave therapy; (Friendly) [facility] Nephrolithiasis; [address] [place] [address] Chronic bilateral low back pain without sciatica; Chely Farr A [address] A DJD (degenerative joint disease), [place] [phone] Social History Tobacco Use Types Packs/Day Years [...] Sign Reading Time Taken Comments Blood Pressure 116/76 02/03/2021 10:13 AM EDT Pulse 61 02/03/2021 10:13 AM EDT Temperature - - Respiratory Rate - - Oxygen Saturation - - Inhaled Oxygen Concentration - - Weight 111.1 kg (245 lb) 02/03/2021 10:13 AM EDT Height 179.1 cm (5' 10.5) 02/03/2021 10:13 AM EDT Body Mass Index 34.66 02/03/2021 10:13 AM EDT documented in this encounter Progress Notes JAIRO Wesley - 02/08/2021 12:21 PM EDT Stone analysis returned as 100% calcium oxalate composition (most common type of stone). Try and minimize high oxalate containing foods including tea, soy nuts, coffee, red meats, spinach/rhubarb. Keep salt under 1500 mg daily. Drink 6 to 8 bottles of water daily with addition of lemon/grapefruit, or orange. JAIRO Wesley - 02/03/2021 10:00 AM EDT Images from the original note were not included. Subjective Patient ID: Dario Mckeon is a 65 y.o. ( 1955) male Patient presents with ??? Post-op post litho kub HPI: Dario Mckeon is a 65 y.o. male who presents today for postoperative follow-up. Patient with a history of nephrolithiasis and a urethral stricture. He has a history of DVIU 03/2019per Dr. Ndiaye with repeat dilatation up to 20 Azeri 12/31/[address] White. He is most recently s/p left ESWL 01/15/[address] Ndiaye for management of a 5 mm proximal left ureteral stone. He has a positive personal and family history of stones. This was his first requirement of surgical intervention. I have gone over the CT scan images with the patient. CT done at [facility] on 01/07/2021. + 5 mm proximal left ureteral stone without obstruction + Multiple calyceal stones bilaterally with perirenal fat stranding but no hydronephrosis + Moderate to advanced multilevel degenerative changes of lumbar spine with chronic inferior endplate compression fracture of L1 Previous treatment: L ESWL Current treatment: None Today's complaints: He spontaneously passed two large fragments 4 days following procedure without much issue. He brings in today for analysis. He denies any acute flank pain or urinary symptoms thoughhe does note chronic bilateral low back pain without sciatica. Reviewed and updated this visit by provider: Tobacco Allergies Meds Problems Med Hx Surg Hx Fam Hx Review of Systems Constitutional: Negative for chills and fever. HENT: Negative for congestion, postnasal drip, rhinorrhea and sore throat. Eyes: Negative for discharge. Respiratory: Negative for cough and shortness of breath. Cardiovascular: Negative for leg swelling. Gastrointestinal: Negative for abdominal pain, constipation, nausea and vomiting. Endocrine: Negative for polyuria. Genitourinary: Negative for difficulty urinating, dysuria, flank pain, frequency, hematuria and urgency. Musculoskeletal: Positive for back pain (lumbar). Neurological: Negative for dizziness, light-headedness and headaches. Psychiatric/Behavioral: Negative for confusion and decreased concentration. All other systems reviewed and are negative. Objective Vitals: 02/03/21 1013 BP: 116/76 Pulse: 61 Height: 5' 10.5 (1.791 m) Weight: 245 lb (111.1 kg) BMI (Calculated): 34.6 PainSc: 5 Physical Exam Constitutional: Appearance: He is well-developed. HENT: Head: Normocephalic and atraumatic. Eyes: Pupils: Pupils are equal, round, and reactive to light. Musculoskeletal: General: Normal range of motion. Cervical back: Normal range of motion. Lumbar back: Tenderness and bony tenderness present. Back: Pulmonary: Effort: Pulmonary effort is normal. No respiratory distress. Abdominal: Palpations: Abdomen is soft. Tenderness: There is no abdominal tenderness (to deep palpation). There is no right CVA tenderness or left CVA tenderness. Skin: General: Skin is warm. Neurological: Mental Status: He is alert and oriented to person, place, and time. Psychiatric: Behavior: Behavior normal. Recent Results (from the past 24 hour(s)) POCT urinalysis dipstick Collection Time: 02/03/21 10:15 AM Result Value Ref Range Color Yellow Yellow, Straw, Dark yellow, Colorless, Bright yellow, Xantho, Comment, Pale Yellow Clarity Clear Clear, Slightly hazy Glucose,Urine Negative Negative mg/dL Bilirubin Negative Negative Ketones,Urine Negative Negative mg/dL Specific [place] >=1.030 (A) 1.005 - 1.030 Blood Negative Negative pH 5.0 5.0 - 9.0 Protein Negative Negative mg/dL Urobilinogen 0.2 0.2, 1.0 EU/dL Nitrite Negative Negative Leukocyte Esterase Negative Negative I ordered a KUB on Dario Mike and I went over the images with them. I independently visualized the films today without the help of a radiologist. The findings are as follows. The bony and soft tissue structures are normal. I can see abnormal calcifications- bilateral nonobstructive stones <3 mm,no definitive ureteral fragments seen. He does have phleboliths. Assessment and Plan 1. Aftercare following surgery of the genitourinary system 2. S/P extracorporeal shock wave therapy 3. Nephrolithiasis 4. Chronic bilateral low back pain without sciatica 5. DJD (degenerative joint disease), lumbosacral Doing well following lithotripsy, KUB reveals interim clearing of ureter. Stones for analysis. Discussed in depth stone preventative measures, such as increasing water and fluid intake, decreasing salt in the diet, and increasing citric acid such as adding lemon to water. Discussed referral to neuro spine regarding chronic lumbar back pain with documented advanced DJD per imaging. He is agreeable to this .Referral placed. RTC 6 months for KUB, sooner if needed No follow-ups on file. Patient's Medications Accurate as of February 03, 2021 10:52 AM. Reflects encounter med changes as of last refresh Continued Medications Instructions atorvastatin 20 mg tablet Commonly known as: LIPITOR 20 mg, Oral, Daily buPROPion 100 mg 12 hr tablet Commonly known as: WELLBUTRIN SR 100 mg, Oral CENTRUM SILVER PO Oral donepezil HCl 10 mg tablet Commonly known as: ARICEPT 10 mg, Oral, Daily flecainide acetate 100 mg tablet Commonly known as: TAMBOCOR TAKE 1 TABLET(100 MG) BY MOUTH TWICE DAILY ipratropium 0.03% nasal spray Commonly known as: ATROVENT 2 sprays, 3 times a day lisinopril 2.5 mg tablet Commonly known as: PRINIVIL,ZESTRIL 2.5 mg, Oral, Daily memantine HCl 28 mg 24 hr capsule Commonly known as: NAMENDA XR take 1 capsule by mouth daily metFORMIN ER 500 mg 24 hr tablet Commonly known as: GLUCOPHAGE-XR 500 mg, Oral, 2 times a day metoprolol succinate 50 mg 24 hr tablet Commonly known as: TOPROL-XL 50 mg, Oral, Daily Modified Medications Instructions tamsulosin 0.4 mg Caps Commonly known as: FLOMAX What changed: Another medication with the same name was removed. Continue taking this medication, and follow the directions you see here. Changed by: JAIRO Wesley 0.4 mg, Oral, Daily Discontinued Medications loratadine 5 mg chewable tablet Commonly known as: CLARITIN Stopped by: JAIRO Wesley Orders Placed This Encounter Procedures ??? XR Abdomen Ap ??? Ambulatory Referral to Neuro/Spine Program ??? POCT urinalysis dipstick Risks, benefits, and alternatives of the medications and treatment plan prescribed today were discussed, and patient expressed understanding. Plan follow-up as discussed or as needed if any worsening symptoms or change in condition. documented in this encounter Plan of Treatment Upcoming Encounters Date Type Specialty Care Team Description 01/04/2022 Office Visit Urology Dayna White MD [address] [place] [phone] (Darrel avila) Scheduled Referrals Name Type Priority Associated Diagnoses Order S chedule Ambulatory Referral Outpatient Referral Routine Chronic bilate ral Ordered: to Neuro/Spine low back pain 02/03/2021 Program without sciatica DJD (degenerative joint disease), lumbosacral documented as of this encounter Procedures Procedure Name Priority Date/Time Associated Diagnosis Comme nts STONE ANALYSIS Routine 02/03/2021 10:53 Aftercare following Re sults for this AM EDT surgery of the procedure are in genitourinary sy stem the results S/P extracorporeal section. shock wave thera py Nephrolithiasis Chronic bilateral low back pain without sciatica DJD (degenerative joint disease), lumbosacral XR ABDOMEN AP Routine 02/03/2021 10:26 Aftercare following Res ults for this AM EDT surgery of the procedure are in genitourinary sy stem the results S/P extracorporeal section. shock wave thera py Nephrolithiasis Chronic bilateral low back pain without sciatica DJD (degenerative joint disease), lumbosacral POCT URINALYSIS Today 02/03/2021 10:15 Aftercare following R esults for this DIPSTICK AM EDT surgery of the procedure are in genitourinary sy stem the results S/P extracorporeal section. shock wave thera py Nephrolithiasis Chronic bilateral low back pain without sciatica DJD (degenerative joint disease), lumbosacral documented in this encounter Results Stone Analysis Stone (02/03/2021 10:53 AM EDT) P athologist Signature Source Comment [facility] 1 Comment: Not provided Color Brown [facility] 1 Stone Size 4x6 mm [facility] 1 Comment: Multiple pieces received. ??Dimensions o f the largest piece reported. Weight 62 mg [facility] 1 Composition Comment [facility] 1 Comment: Percentage (Represents the % co mposition) Calcium Oxalate Monohydrate 100 % [facility] 1 Photo Comment [facility] 1 Comment: Photograph will follow under a separate cover Comment Comment [facility] 1 Comment: Physician questions regarding Calculi An alysis contact [facility] at: [phone]. Please Note: Comment [facility] 1 Comment: Calculi report will follow via computer, mail or strategy manager delivery. Disclaimer: Comment [facility] 1 Comment: This test was developed and its performa nce characteristics determined by [facility]. ??It has not been cleared or approved by the Food and Drug Administration. Specimen (Source) Anatomical Collection Method Collection Time Re ceived Time Location / / Volume Laterality Stone 02/03/2021 10:53 02/03/2021 AM EDT Narrative [facility] - 02/08/2021 11:35 AM EDT Performed at: ??01 - [facility] [address] [place] [address] Dr Andres, [place], [place] [id number] Rug Washer: Miguelito Otto MD, Phone: ??[phone] Shell MENG MICROBIOLOGY - GENERAL ORDER MASOUD Performing Organization Address City/State/ZIP Code Phon e Number [facility] 1 XR Abdomen Ap (02/03/2021 10:26 AM EDT) Anatomical Region Laterality Modality Abdomen Computed Radiography Specimen (Source) Anatomical Location Collection Method / Collectio n Time Received Time / Laterality Volume Impressions 02/03/2021 10:19 AM EDT Study was ordered and performed in clinic. It was interpreted by ordering provider. Please see office note dated 02/03/2021 for results Shell MENG IMG DIAGNOSTIC IMAGING ORDER MASOUD (ABNORMAL) POCT urinalysis dipstick (02/03/2021 10:15 AM EDT) [facility] Method Time Signature Color Yellow Yellow, [place] [facility] Straw, Dark UROLOGY yellow, ([place]) Colorless, Bright yellow, Xantho, Comment, Pale Yellow Clarity Clear Clear, [place] [facility] Slightly UROLOGY hazy ([place]) Glucose,Urine Negative Negative [place] mg/dL UROLOGY ([place]) Bilirubin Negative Negative [place] UROLOGY ([place]) Ketones,Urine Negative Negative [place] mg/dL UROLOGY ([place]) Specific [place] >=1.030 (A) 1.005 - [place] [facility] 1.030 UROLOGY ([place]) Blood Negative Negative [place] [facility] UROLOGY ([place]) pH 5.0 5.0 - 9.0 [place] UROLOGY ([place]) Protein Negative Negative [place] mg/dL UROLOGY ([place]) Urobilinogen 0.2 0.2, 1.0 [place] EU/dL UROLOGY ([place]) Nitrite Negative Negative [place] [facility] UROLOGY ([place]) Leukocyte Negative Negative [place] [facility] Esterase UROLOGY ([place]) Specimen (Source) Anatomical Collection Method Collection Time Re ceived Time Location / / Volume Laterality Urine 02/03/2021 10:15 AM EDT Shell MENG POINT OF CARE TEST ORDERABLE S Performing Organization Address City/[facility]/ZIP Code Phon e Number [place] [facility] [address] [place] [phone] (WOOD[place]) Dr Andres documented in this encounter Visit Diagnoses Diagnosis Aftercare following surgery of the genit ourinary system - Primary Aftercare following surgery of the genit ourinary system, NEC S/P extracorporeal shock wave therapy Nephrolithiasis Calculus of kidney Chronic bilateral low back pain without sciatica DJD (degenerative joint disease), lumbos acral 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
--- OUTSIDE RECORDS SUMMARY | 2021-11-30 11:53 | XMS_ITS | Encounter Summary ---
:1955 Author Organization [facility] [place] [address] Care Team Providers Name Role Phone Pascual Benoit MD Unavailable Neal Breen MD Primary Care Provider Shell Freeman Unavailable Encounter Details Date Type Department Care Team Description 03/29/2019 Travel Social History Tobacco Use Types Packs/Day Years Used Date Former Smoker Smokeless Tobacco: Never Used Sex Assigned at Date Recorded Not on file documented as of this encounter Plan of Treatment Upcoming Encounters Date Type Specialty Care Team Description 01/04/2022 Office Visit Urology Dayna White MD 106 [facility] [place], [place] [address] (Wo rk) documented as of this encounter Visit Diagnoses Not on filedocumented in this encounter Care Teams Seed Potato Cutter Relationship Specialty Start Date End Date Neal Breen MD PCP - General Family Medicine 01/21/19 Pascual Benoit MD Otolaryngology 08/17/17 [address] [facility] [place] [address] Shell Freeman PA Physician Optical Instrument Repairer Physician Optical Instrument Repairer 01/21/[address] [place] [address] [place] [address] documented as of this encounter
--- OUTSIDE RECORDS SUMMARY | 2021-11-30 11:53 | XMS_ITS | Encounter Summary ---
:1955 Author Organization [facility] [place] [address] Care Team Providers Name Role Phone Pascual Benoit MD Unavailable Neal Breen MD Primary Care Provider Shell Freeman Unavailable Encounter Details Date Type Department Care Team Description 01/12/2021 Travel Social History Tobacco Use Types Packs/Day Years Used Date Former Smoker Smokeless Tobacco: Never Used Sex Assigned at Date Recorded Not on file COVID-19 Exposure Response Date Recorded In the last month, have you been in contact with No / Unsure 01/12/2021 8:29 AM EDT someone who was confirmed or suspected to have Coronavirus / COVID-19? documented as of this encounter Plan of Treatment Upcoming Encounters Date Type Specialty Care Team Description 01/04/2022 Office Visit Urology Dayna White MD [address] [place] [address] [place], [place] [address] (Wo rk) documented as of this encounter Visit Diagnoses Not on filedocumented in this encounter Care Teams Instructional Design Consultant Relationship Specialty Start Date End Date Neal Breen MD PCP - General Family Medicine 01/21/19 Pascual Benoit MD Otolaryngology 08/17/17 [address] [place] [address] Shell Freeman PA Physician Assistant Housekeeping Manager Physician Assistant Housekeeping Manager 01/21/[address] [place] [address] [place] [address] documented as of this encounter
--- OUTSIDE RECORDS SUMMARY | 2021-11-30 11:53 | XMS_ITS | Encounter Summary ---
:[address] [facility] [address] Care Team Providers Name Role Phone Pcp, Patient Does Not Have Primary Care Provider Reason for Visit Reason Comments Hematuria Flank Pain Encounter Details Date Type Department Care Team Description 01/31/2016 [facility] [address] [place] [address] [place] [address] DRIVE [phone] [place] [address] (Wo rk) Social History Tobacco Use Types [...] Sign Reading Time Taken Comments Blood Pressure 106/63 01/31/2016 3:43 PM EDT Pulse 67 01/31/2016 3:43 PM EDT Temperature 37.1 ??C (98.7 ??F) 01/31/2016 11:50 AM EDT Respiratory Rate 18 01/31/2016 3:43 PM EDT Oxygen Saturation 95% 01/31/2016 3:43 PM EDT Inhaled Oxygen Concentration - - Weight 118.6 kg (261 lb 6.4 oz) 01/31/2016 11:50 AM EDT Height 180.3 cm (5' 11) 01/31/2016 11:50 AM EDT Body Mass Index 36.46 01/31/2016 11:50 AM EDT documented in this encounter Discharge Instructions Discharge InstructionsÁngel Mcdonald MD - 01/31/2016 3:00 PM EDT [facility] / [facility] / [facility] Kidney Infection: Care Instructions Your Care Instructions A kidney infection (pyelonephritis) is a type of urinary tract infection, or UTI. Most UTIs are bladder infections. Kidney infections tend to make people much sicker than bladder infections do. A kidney infection is also more serious because it can cause lasting damage if it is not treated quickly. Follow-up care is a sandoval part of your treatment and safety. Be sure to make and go to all appointments, and call your doctor if you are having problems. It???s also a good idea to know your test resultsand keep a list of the medicines you take. How can you care for yourself at home? ?? Take your antibiotics as directed. Do not stop taking them just because you feel better. You needto take the full course of antibiotics. ?? Drink plenty of water, enough so that your urine is light yellow or clear like water. This may help wash out bacteria that are causing the infection. If you have kidney, heart, or liver disease and have to limit fluids, talk with your doctor before you increase the amount of fluids you drink. ?? Urinate often. Try to empty your bladder each time. ?? To relieve pain, take a hot shower or lay a heating pad (set on low) over your lower belly. Nevergo to sleep with a heating pad in place. Put a thin cloth between the heating pad and your skin. To help prevent kidney infections ?? Drink plenty of water each day. This helps you urinate often, which clears bacteria from your system. If you have kidney, heart, or liver disease and have to limit fluids, talk with your doctor before you increase the amount of fluids you drink. ?? Include cranberry juice in your diet. ?? Urinate when you have the urge. Do not hold your urine for a long time. Urinate before you go to sleep. ?? If you have symptoms of a bladder infection, such as burning when you urinate or having to urinate often, call your doctor so you can treat the problem before it gets worse. If you do not treat a bladder infection quickly, it can spread to the kidney. ?? Men should keep the tip of the penis clean. If you are a woman, keep these ideas in mind: ?? Urinate right after you have sex. ?? Change sanitary pads often. Avoid douches, feminine hygiene sprays, and other feminine hygiene products that have deodorants. ?? After going to the bathroom, wipe from front to back. When should you call for help? Call your doctor now or seek immediate medical care if: ?? You have increasing pain in your back just below the rib cage. This is called flank pain. ?? You have a new or higher fever and chills. ?? You are vomiting or nauseated. Watch closely for changes in your health, and be sure to contact your doctor if: ?? Symptoms, such as burning when you urinate, get worse or get better but then come back. ?? You are not getting better after 2 days. ?? [id number] [employer]. Care instructions adapted under license by [facility]. This care instruction is for use with your licensed healthcare professional. If youhave questions about a medical condition or this instruction, always ask your healthcare professional. [employer] disclaims any warranty or liability for your use of this information. Content Version: 10.9.233722; Current as of: March 06, 2015 Where can you learn more? Log into [employer] at www.delicious and enter the title of this document into the ???Search [employer]?? box to learn more about your instructions. You can also click on ???about this medication, condition, or lab?? to link to additional information. Not using [employer]? Go to [email or web address] and click the ???Sign Up Now?? link to request an activation code. documented in this encounter Medications at Time of Discharge Medication Sig Dispensed Refills Start Date End Date cefpodoxime (VANTIN) 200 MG Take 1 tablet (200 20 tablet 0 01/31/2016 02/10/2016 tablet mg total) by mouth 2 times daily for 10 days. acetaminophen (TYLENOL) 500 Take 1,000 mg by [...] documented as of this encounter ED Notes Geri Ko RN - 01/31/2016 12:[address] Ángel Mcdonald MD - 01/31/2016 12:15 PM EDT History Chief Complaint Patient presents with ??? Hematuria ??? Flank Pain HPI Comments: Pt is a 60 y/o male with PMHx of kidney stones that he has passed on his own who presents to the ED for eval of hematuria and left flank pain and right sided lower abdominal pain that traces his urethra to his bladder. He states it feels like when he had his last kidney stone. morning he reports he woke up with a cough and cold and was going to the bathroom and he started urinating before he made it to the restroom. Pt reports difficulty urinating, hematuria, and fever of 101 yesterday. Pt reports his cough/cold symptoms have resolved now. Endorses constipation, but denies testicular pain. Pt went to the urgent care prior to coming here who sent him here. Patient is a 60 y.o. male presenting with hematuria. The history is provided by the patient and the spouse. No official court interpreter was used. Hematuria This is a new problem. Associated symptoms include abdominal pain (right lower), fever and flank pain (left side). Pertinent negatives include no chills, dysuria, nausea or vomiting. Past Medical History Diagnosis Date ??? Hyperlipemia ??? Tachycardia ??? Ruptured appendix Past Surgical History Procedure Laterality Date ??? Appendectomy No family history on file. History Substance Use Topics ??? Smoking status: Former Smoker Types: Cigarettes Quit date: 04/16/1989 ??? Smokeless tobacco: Not on file ??? Alcohol Use: Yes Comment: occassionally Review of Systems Constitutional: Positive for fever. Negative for chills. HENT: Negative for congestion, rhinorrhea and sore throat. Respiratory: Negative for cough. Gastrointestinal: Positive for abdominal pain (right lower) and constipation. Negative for nausea, vomiting and diarrhea. Genitourinary: Positive for hematuria, flank pain (left side) and difficulty urinating. Negative fordysuria and testicular pain. All other systems reviewed and are negative. Physical Exam ED Triage Vitals BP 01/31/16 1150 125/77 mmHg MAP (mmHg) -- Pulse 01/31/16 1150 74 Resp 01/31/16 1150 20 Temp 01/31/16 1150 98.7 ??F (37.1 ??C) SpO2 01/31/16 1150 96 % Physical Exam Constitutional: He is oriented to person, place, and time. He appears well- developed and well-nourished. No distress. HENT: Head: Normocephalic and atraumatic. Mouth/Throat: Oropharynx is clear and moist. No oropharyngeal exudate. Eyes: Conjunctivae are normal. Pupils are equal, round, and reactive to light. Neck: Normal range of motion. Neck supple. Cardiovascular: Normal rate and regular rhythm. Exam reveals no gallop and no friction rub. No murmur heard. Pulmonary/Chest: Effort normal and breath sounds normal. Abdominal: Soft. He exhibits no distension. There is tenderness in the suprapubic area. There is CVAtenderness (Left). Genitourinary: Prostate normal. Prostate is not tender. Musculoskeletal: Normal range of motion. He exhibits no edema or tenderness. Neurological: He is alert and oriented to person, place, and time. He has normal strength. No sensory deficit. Skin: Skin is warm and dry. Psychiatric: He has a normal mood and affect. Nursing note and vitals reviewed. ED Course Procedures MDM: Afebrile. Vitals stable. Labs with mild leukocytosis. Lactate and CMP were unremarkable. UA c/wUTI. CT without evidence of stone. However it did reveal likely pyelonephritis. He was given a dose of rocephin IV. Given his overall well appearance with reassuring labs, I feel he is stable for outpatient treatment. He was discharged with a 10 day course of Vantin. Return precautions were given and discussed with the patient who was in agreement with the plan. Clinical Impression: 1. Pyelonephritis 2. Pulmonary nodule ED Disposition Discharge Dario Mckeon discharge to home/self care. Condition at discharge: Good This document serves as a record of services personally performed by Dr. Ángel Mcdonald MD. It was created on their behalf by Casandra Goyal, a trained diagnostic medical sonographer. The creationof this record is the provider???s dictation and/or activities during the visit. Electronically signed by: Casandra Goyal 02/01/2016 10:59 AM I agree the documentation is accurate and complete. Electronically signed by: Ángel Mcdonald MD 02/01/2016 10:59 AM Ángel Mcdonald MD 02/01/16 1059 Huey Geiger RN - 01/31/2016 11:58 AM EDT Pt reports with flank pain and hematuria. Pt has hx of kidney stones. Pt went to [facility] this [facility]- they said he had BP of 94/60. BP is now 125/77. Pt's reports pt took tylenol yesterday for fever 101.0. Temp of 98.7 now. Denies taking anything extra for pain. documented in this encounter Plan of Treatment Scheduled Orders Name Type Priority Associated Diagnoses Order S chedule Urine Culture Microbiology STAT STAT for 1 Occ urrences starting 2015 until 01/31/2016 documented as of this encounter Procedures Procedure Name Priority Date/Time Associated Comments Diagnosis COMPREHENSIVE STAT 01/31/2016 1:15 PM Results for this METABOLIC PANEL EDT procedure ar e in the results section. LACTIC ACID STAT 01/31/2016 1:14 PM Results f or this EDT procedure are i n the results section. CBC WITH AUTO STAT 01/31/2016 1:14 PM Results for this DIFFERENTIAL PANEL EDT procedure are in the results section. CBC AND DIFFERENTIAL STAT 01/31/2016 1:14 PM R esults for this EDT procedure are i n the results section. CT ABDOMEN PELVIS WO STAT 01/31/2016 1:03 PM R esults for this CONTRAST (STONE) EDT procedure a re in the results section. UA, MICROSCOPIC IF STAT 01/31/2016 12:33 Resul ts for this INDICATED BY DIPSTICK PM EDT proced ure are in the results section. documented in this encounter Results (ABNORMAL) Comprehensive Metabolic Panel (01/31/2016 1:15 PM EDT) Analysis Performed At Patho logist Time Signature Sodium 136 136 - 144 01/31/2016 [facility] MMOL/L 1:38 PM EDT [facility] Potassium 3.7 3.5 - 5.1 01/31/2016 [facility] MMOL/L 1:38 PM EDT [facility] Chloride 104 101 - 111 01/31/2016 [facility] MMOL/L 1:38 PM EDT [facility] CO2 24 22 - 32 01/31/2016 [facility] MMOL/L 1:38 PM EDT [facility] Glucose 151 (H) 79 - 115 01/31/2016 [facility] MG/DL 1:38 PM EDT [facility] Creatinine 0.91 0.90 - 01/31/2016 [facility] 1.30 MG/DL 1:38 PM [facility] Calcium 8.5 (L) 8.9 - 10.3 01/31/2016 [facility] MG/DL 1:38 PM [facility] Total Protein 7.1 6.5 - 8.1 01/31/2016 [facility] G/DL 1:38 PM [facility] Albumin 3.5 3.5 - 5.0 01/31/2016 [facility] G/DL 1:38 PM [facility] Total Bilirubin 1.0 0.3 - 1.2 01/31/2016 [facility] MG/DL 1:38 PM [facility] Alkaline 70 32 - 91 01/31/2016 [facility] Phosphatase IU/L 1:38 PM [facility] AST (SGOT) 18 15 - 41 01/31/2016 [facility] IU/L 1:38 PM [facility] ALT (SGPT) 20 17 - 63 01/31/2016 [facility] IU/L 1:38 PM [facility] Anion Gap 8 6 - 16 01/31/2016 [facility] MEQ/L 1:38 PM [facility] Est. GFR >60 01/31/2016 [facility] Non- 1:38 PM [facility] Comment: GFR is calculated by IDMS traceable MDRD method, and the result is about 5% lower than previously reported results (prior to Mar 28, 2011). Est. GFR >60 01/31/2016 1:38 PM T [facility] Comment: GFR is calculated by IDMS traceable MDRD method, and the result is about 5% lower than previously reported results (prior to Mar 28, 2011). BUN 16.0 8.0 - 26.0 MG/DL 01/31/2016 1:38 PM T [facility] Specimen Anatomical Collection Method / Collection Time Recei ericka Time (Source) Location / Volume Laterality Blood specimen Venipuncture / 01/31/2016 1:15 01/31/20 16 1:15 (specimen) Unknown PM EDT PM EDT Ángel Mcdonald MD LAB BLOOD ORDERABLES Performing Organization Address City/State/ZIP Code Phon e Number [facility] CLIA# [id number] [place] [address] [facility] [address] [facility] CLIA#[id number] [place] [address] [facility] [address] (ABNORMAL) CBC and Differential (01/31/2016 1:14 PM EDT) [facility] Time Signature WBC 10.8 (H) 4.6 - 10.2 01/31/2016 [facility] X1000 1:25 PM EDT [facility] RBC 4.21 (L) 4.69 - 01/31/2016 [facility] 6.13 1:25 PM EDT [facility] X1,000,000 [facility] Hemoglobin 12.0 (L) 14.1 - 01/31/2016 [facility] 18.1 G/DL 1:25 PM EDT [facility] Hematocrit 37.2 (L) 43.5 - 01/31/2016 [facility] 53.7 % 1:25 PM EDT [facility] MCV 88.3 80.0 - 01/31/2016 [facility] 97.0 FL 1:25 PM EDT [facility] MCH 28.5 27.0 - 01/31/2016 [facility] 31.2 PG 1:25 PM EDT [facility] MCHC 32.3 31.8 - 01/31/2016 [facility] 35.4 G/DL 1:25 PM EDT [facility] RDW 14.2 11.6 - 01/31/2016 [facility] 14.8 % 1:25 PM EDT [facility] Platelets 248 142 - 424 01/31/2016 [facility] X1000 1:25 PM EDT [facility] MPV 7.6 (L) 7.8 - 11.0 01/31/2016 [facility] FL 1:25 PM EDT [facility] Neutrophil % 78 37 - 80 % 01/31/2016 [facility] 1:25 PM EDT [facility] Lymphocyte % 11 10 - 50 % 01/31/2016 [facility] 1:25 PM EDT [facility] Monocyte % 9 0 - 12 % 01/31/2016 [facility] 1:25 PM EDT [facility] Eosinophil % 2 0 - 7 % 01/31/2016 [facility] 1:25 PM EDT [facility] Basophil % 0 0 - 2 % 01/31/2016 [facility] 1:25 PM EDT [facility] Neutrophil 8.4 (H) 2.0 - 6.9 01/31/2016 [facility] Absolute X1000 1:25 PM EDT [facility] Lymphocyte 1.1 0.6 - 3.4 01/31/2016 [facility] Absolute X1000 1:25 PM EDT [facility] Monocyte 1.0 (H) 0.0 - 0.9 01/31/2016 [facility] Absolute X1000 1:25 PM EDT [facility] Eosinophil 0.2 0.0 - 0.7 01/31/2016 [facility] Absolute X1000 1:25 PM EDT [facility] Basophil 0.0 0.0 - 0.2 01/31/2016 [facility] Absolute X1000 1:25 PM EDT [facility] Specimen Anatomical Collection Method / Collection Time Recei ericka Time (Source) Location / Volume Laterality Blood specimen Venipuncture / 01/31/2016 1:14 01/31/20 16 1:15 (specimen) Unknown PM EDT PM EDT Ángel Mcdonald MD LAB BLOOD ORDERABLES Performing Organization Address City/State/ZIP Code Phon e Number [facility] CLIA# [id number] [place] [address] [facility] [address] [facility] CLIA#[id number] [place] [address] [facility] [address] Lactic Acid (01/31/2016 1:14 PM EDT) athologist Signature Lactic Acid 1.1 0.5-<2.0 01/31/2016 [facility] MMOL/L 1:46 PM EDT [facility] Specimen Anatomical Collection Method / Collection Time Recei ericka Time (Source) Location / Volume Laterality Blood specimen Venipuncture / 01/31/2016 1:14 01/31/20 16 1:14 (specimen) Unknown PM EDT PM EDT Narrative [facility] ES - 01/31/2016 1:46 PM EDT Lactic Acid results >=2.0 MMOL/L could b e indicative of severe sepsis. ??It is recommended to order a repeat Lactic Aci d in 5 hours. Ángel Mcdonald MD LAB BLOOD ORDERABLES Performing Organization Address City/State/ZIP Code Phon e Number [facility] CLIA# [id number] [place] [address] [facility] [address] [facility] CLIA#[id number] [place] [address] [place] [facility] [address] ABDOMEN PELVIS WO CONTRAST (STONE) (01/31/2016 1:03 PM EDT) Anatomical Region Laterality Modality Abdomen, Vascular Computed Tomography Specimen (Source) Anatomical Collection Method Collection Time Re ceived Time Location / / Volume Laterality 01/31/2016 1:10 PM EDT Impressions 01/31/2016 7:34 PM EDT 1. ??No ureteral calculus or hydroureter onephrosis. Punctate nonobstructing bilateral renal calculi. 2. ??Nonspecific bilateral perinephric, perivesicular, and periprosthetic stranding. Clinically correlate to exclude possible infectious/inflammatory etiologies. 3. ??Partially imaged 4 mm right middle lobe nodule. If patient has history of smoking or other risk factors for malignancy 12 month follow-up CT could be considered to evaluate malignant potential. Narrative 01/31/2016 7:[address] STONE STUDY, 01/31/2016 1:03 PM INDICATION: ??flank pain, fever COMPARISON: None. TECHNIQUE: Axial images of the abdomen a nd pelvis were obtained without intravenous contrast. Supplemental 2D reformatted images were generated and reviewed as needed. [facility] and its affiliates are committed to minimizing radiation dose to patients while maintaining necessary diagnostic image quality. All CT scans are therefore performed using As Low As Reasonably Achievable ( ALARA) protocols with either manual or automated exposure controls calibrated to the age and size of each patient. LIMITATIONS: Lack of intravenous contras t decreases sensitivity for the detection of solid organ lesions. FINDINGS: LOWER CHEST Mediastinum: Within normal limits. Heart/vessels: Within normal limits. Lungs/Pleura: Partially imaged 4 mm righ t middle lobe nodule (series 2, image 1). ABDOMEN Liver: Within normal limits. Gallbladder/biliary: Within normal limit s. Spleen: Within normal limits. Pancreas: Within normal limits. Adrenals: Within normal limits. Kidneys/ureters: No hydroureteronephrosi s. Punctate bilateral nonobstructing renal calculi. No ureteral calculi. Nonspecific moderate bilateral perinephric stranding. Peritoneum/mesenteries: Small fat-contai glenn umbilical hernia. Extraperitoneum: Within normal limits. Gastrointestinal tract: Within normal li mits. Vascular: Within normal limits. PELVIS Peritoneum: Within normal limits. Extraperitoneum: Within normal limits. Bladder: Circumferential bladder wall th ickening which may be in part related to degree of decompression. Mild perivesicular stranding. Reproductive system: Prostate is mildly enlarged with mild surrounding stranding. No focal fluid collection to suggest abscess. Vascular: Within normal limits. MSK: No acute osseous abnormality. Small sclerotic focus in the right proximal femoral diaphysis likely represents a bone island. Procedure Note Aubrey Guerra Jr., MD - 01/31/[address] STONE STUDY, 01/31/2016 1:03 PM INDICATION: flank pain, fever COMPARISON: None. TECHNIQUE: Axial images of the abdomen a nd pelvis were obtained without intravenous contrast. Supplemental 2D reformatted images were generated and reviewed as needed. [facility] and its affiliates are committed to minimizing radiation dose to patients while maintaining necessary diagnostic image quality. All CT scans are therefore performed using As Low As Reasonably Achievable (ALARA) pr otocols with either manual or automated exposure controls calibrated to the age and size of each patient. LIMITATIONS: Lack of intravenous contras t decreases sensitivity for the detection of solid organ lesions. FINDINGS: LOWER CHEST Mediastinum: Within normal limits. Heart/vessels: Within normal limits. Lungs/Pleura: Partially imaged 4 mm righ t middle lobe nodule (series 2, image 1). ABDOMEN Liver: Within normal limits. Gallbladder/biliary: Within normal limit s. Spleen: Within normal limits. Pancreas: Within normal limits. Adrenals: Within normal limits. Kidneys/ureters: No hydroureteronephrosi s. Punctate bilateral nonobstructing renal calculi. No ureteral calculi. Nonspecific moderate bilateral perinephric stranding. Peritoneum/mesenteries: Small fat-contai glenn umbilical hernia. Extraperitoneum: Within normal limits. Gastrointestinal tract: Within normal li mits. Vascular: Within normal limits. PELVIS Peritoneum: Within normal limits. Extraperitoneum: Within normal limits. Bladder: Circumferential bladder wall th ickening which may be in part related to degree of decompression. Mild perivesicular stranding. Reproductive system: Prostate is mildly enlarged with mild surrounding stranding. No focal fluid collection to suggest abscess. Vascular: Within normal limits. MSK: No acute osseous abnormality. Small sclerotic focus in the right proximal femoral diaphysis likely represents a bone island. CONCLUSION: 1. No ureteral calculus or hydroureteron ephrosis. Punctate nonobstructing bilateral renal calculi. 2. Nonspecific bilateral perinephric, pe rivesicular, and periprosthetic stranding. Clinically correlate to exclude possible infectious/inflammatory etiologies. 3. Partially imaged 4 mm right middle lo be nodule. If patient has history of smoking or other risk factors for malignancy 12 month follow-up CT could be considered to evaluate malignant potential. Ángel Mcdonald MD IM CT ORDERABLES (ABNORMAL) UA, Microscopic If Indicated By Dipstick (01/31/2016 12:33 PM EDT) [facility] gist Method Time Signature Urine Color Yellow Yellow 01/31/2016 [facility] 12:49 PM ON [facility] Urine Appearance Clear Clear 01/31/2016 [facility] 12:[address] [facility] Urine Specific >=1.030 (A) 1.001 - 01/31/2016 [facility] [facility] Lee 1.035 12:[address] [facility] Urine pH 6.0 5.5 - 6.5 01/31/2016 [facility] 12:49 PM ON [facility] Urine Protein Trace (A) Negative 01/31/2016 [facility] MG/DL 12:49 PM ON MEDICAL EDT [facility] Urine Glucose Negative Negative 01/31/2016 [facility] MG/DL 12:49 PM ON [facility] EDT [facility] Urine Ketone Negative Negative 01/31/2016 [facility] MG/DL 12:49 PM ON [facility]T [facility] Urine Bilirubin Negative Negative 01/31/2016 [facility] 12:49 PM ON [facility]T [facility] Urine Blood/Hb Large (A) Negative 01/31/2016 [facility] 12:49 PM ON [facility]T [facility] Urine 1.0 0.2 - 1.0 01/31/2016 [facility] Urobilinogen EU/DL 12:49 PM ON [facility]T [facility] Urine Nitrite Negative Negative 01/31/2016 [facility] 12:49 PM ON [facility]T [facility] Urine Leukocyte Small (A) Negative 01/31/2016 [facility] Esterase 12:49 PM ON [facility] EDT [facility] Urine WBC TNTC (A) None seen, 01/31/2016 [facility] 0-5 /HPF 12:49 PM ON [facility]T [facility] Urine RBC >30 (A) None seen, 01/31/2016 [facility] 0-3 /HPF 12:49 PM ON [facility] EDT [facility] Urine Epithelial Few None seen, 01/31/2016 [facility] Cells Few /HPF 12:49 PM ON [facility]T [facility] Urine Bacteria Many (A) None seen, 01/31/2016 [facility] Rare, Few 12:49 PM ON [facility]T [facility] Urine Hyaline 0-2 0 - 2 /LPF 01/31/2016 [facility] Casts 12:49 PM ON MEDICAL EDT [facility] Urine FINE GRANULAR CASTS None seen 01/31/2016 [facility] NGT Pathological 0-2 /LPF 12:49 PM ON MEDICAL [facility] EDT [facility] Specimen Anatomical Collection Method Collection Time Receive d Time (Source) Location / / Volume Laterality Urine specimen 01/31/2016 12:33 6 (specimen) PM EDT 12:36 PM EDT Ángel Mcdonald MD URINE ORDERABLES Performing Organization Address City/State/ZIP Code Phon e Number [facility] CLIA# [id number] [place] [address] CENTER LAB SERVICES [address] [facility] CLIA#[id number] [place] [address] CENTER LAB SERVICES [address] documented in this encounter Visit Diagnoses Diagnosis Pyelonephritis - Primary Unspecified pyelonephritis Pulmonary nodule Other diseases of lung, not elsewhere cl assified documented in this encounter Administered Medications Inactive Administered Medications - up to 3 most recent administrations Medication Order MAR Action Action Date Dose Rate Site 0.9% NaCl bolus New Bag 01/31/2016 12:43 PM 1,000 mLs 999 mL/hr 1,000 mL Once, Intravenous, EDT On 01/31/16 at 1245, For 1 dose cefTRIAXone (ROCEPHIN) 1 g in sodium New Bag 01/31/2016 2:49 P M EDT 1 g 200 mL/hr chloride 0.9 % 100 mL IVPB 1 g Every 24 hours, Intravenous, Administer over 30 Minutes, First dose on 01/31/16 at 1500 fentaNYL (SUBLIMAZE) 50 mcg/mL injection 50 Given 01/15 12:51 PM EDT 50 mcg mcg 50 mcg Once, Intravenous, On 01/31/16 at 1300, For 1 dose ondansetron (ZOFRAN) injection 4 mg Given 01/31/2016 12:49 PM EDT 4 mg 4 mg Once, Intravenous, On 01/31/16 at 1300, For 1 dose documented in this encounter Active and Recently Administered Medications Times are shown in EDT. Scheduled Medication Order 01/29/2016 01/30/2016 01/31/2016 0.9% NaCl bolus (COMPLETED) 1243 (New Bag - Provider: Geri Ko RN)1338 (Stopped - Provider: SCOOTER Dodge-P) 1,000 mL Once, Intravenous, [place] 01/31/16 at 1245, For 1 dose cefTRIAXone (ROCEPHIN) 1 g in sodium chloride 0.9 % 100 mL IVPB (CANCELED) 1449 (New Bag - Provider: Moses Mathew EMT-P)1519 (Stopped - Provider: Moses Ruiz [place], EMT-P) 1 g Every 24 hours, Intravenous, for 30 Minutes, First dose on [place] 01/31/16 at 1500 fentaNYL (SUBLIMAZE) 50 mcg/mL injection 50 mcg (COMPLETED) 1251 (Given - Provider: Geri Ko, BERNARD) 50 mcg Once, Intravenous, [place] 01/31/16 at 1300 ondansetron (ZOFRAN) injection 4 mg (COMPLETED) 1249 (Given - Provider: Geri Ko RN) 4 mg Once, Intravenous, [place] 01/31/16 at 1300, For 1 dose documented in this encounter Care Teams Yarn Man Relationship Specialty Start Date End Date Pcp, Patient Does Not Have PCP - General 01/31/16 05/18/16 documented as of this encounter
--- OUTSIDE RECORDS SUMMARY | 2021-11-30 11:53 | XMS_ITS | Encounter Summary ---
:1955 Author Organization [email or web address] [place] [address] Care Team Providers Name Role Phone Pascual Benoit MD Unavailable Neal Breen MD Primary Care Provider Shell Freeman Unavailable Reason for Referral CT (Routine) - Closed Specialty Diagnoses / Procedures Referred By Contact Refer red To Contact Diagnoses Renal calculi Gross hematuria Jose White MD [facility] Procedures CT Abdomen Pelvis WO IV Contrast ([facility] Protocol) [address] [place] [id number] [place] [address] Referral ID Status Reason Start Date Expiration Date Visits Requ ested Visits Authorized [id number] Closed 12/31/2020 06/28/2021 1 1 Reason for Visit Reason Comments Procedure cysto Encounter Details Date Type Department Care Team Description 12/31/2020 [email or web address] White 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 documented as of this encounter Last Filed Vital Signs Vital Sign Reading Time Taken Comments Blood Pressure 121/82 12/31/2020 9:15 AM EDT Pulse 55 12/31/2020 9:15 AM EDT Temperature 36.4 ??C (97.5 ??F) 12/31/2020 9:15 AM EDT Respiratory Rate - - Oxygen Saturation - - Inhaled Oxygen Concentration - - Weight - - Height - - Body Mass Index - - documented in this encounter Progress Notes Jose White MD - 12/31/2020 9:37 AM EDT Images from the original note were not included. Subjective Patient ID: Dario Mckeon is a 65 y.o. ( 1955) male Patient presents with ??? Procedure cysto HPI: Dario Mckeon presents today with complaints of recent right sided ureteral stones. These symptoms have been present for days. 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 Patient had a DVIU by Dr. Ndiaye in 03/2019. The stricture at that time was less than 1 cm, and he had a small minimally obstructing prostate at that time He has had stones before and has passed them. No surgeries +family history of stones Previous treatments: DVIU Current treatment: None We went over the patient's PSA results as stated below: No results found for: PSA PCP checks PSA and prostate by [facility]O No family history of prostate, kidney, or bladder cancer. CT at [facility] [place] 09/[place]: Bilateral kidney stones, right hydroureteronephrosis down to the level of 2 3 mm stones. 12/2020 AUA IPSS score - 17/35 (intermittency, urgency, weak stream, straining) QOL - 5/6 Main complaints today: Patient went to [facility] and had some flank and abdominal pain several weeks ago. History of 2 distal 3 mm stones. He comes in today for further evaluation and management. Pain today is in the right low back and constant. He comes in for cystoscopy and possible urethral dilation and to evaluate for any bladder stones. Reviewed and updated this visit by provider: Tobacco Allergies Meds Problems Med Hx SE Hx Surg Hx Fam Hx Review of Systems Constitutional: Negative for chills, diaphoresis, fatigue and fever. HENT: Negative for sore throat. Eyes: Negative for pain and itching. Respiratory: Negative for cough. Cardiovascular: Negative for chest pain. Gastrointestinal: Negative for abdominal distention, abdominal pain, nausea and vomiting. Genitourinary: Negative for decreased urine volume, dysuria, flank pain, hematuria and testicular pain. Musculoskeletal: Positive for back pain (right). Negative for arthralgias. Skin: Negative for color change. Neurological: Negative for dizziness, weakness and light-headedness. Psychiatric/Behavioral: Negative for agitation, behavioral problems and dysphoric mood. Objective Vitals: 12/31/20 0915 BP: 121/82 Pulse: 55 Temp: 97.5 ??F (36.4 ??C) TempSrc: Temporal PainSc: 6 PainLoc: Back Physical Exam Vitals and nursing note reviewed. Constitutional: Appearance: He is well-developed. HENT: Head: Normocephalic and atraumatic. Eyes: Pupils: Pupils are equal, round, and reactive to light. Musculoskeletal: General: Normal range of motion. Cervical back: Normal range of motion and neck supple. Pulmonary: Effort: Pulmonary effort is normal. Abdominal: General: There is no distension. Palpations: Abdomen is soft. There is no mass. Tenderness: There is no abdominal tenderness. There is no rebound. Skin: General: Skin is warm and dry. Findings: No erythema or rash. Neurological: Mental Status: He is alert and oriented to person, place, and time. Psychiatric: Behavior: Behavior normal. No results found for this or any previous visit (from the past 24 hour(s)). Indications for procedure: the patient has a history of urethral strictures, gross hematuria, and kidney stones PROCEDURE (Cystoscopy with calibration up to 20 Welsh of bulbar urethral strictures): After a pre-procedure timeout was performed, which identified the appropriate patient, procedure, and positioning the patient's genitalia were prepped and draped in a sterile fashion. 2% viscous lidocaine jelly was instilled into the urethra, and after approximately 5 minutes the scope was introducedthrough the urethra, into the bladder. The anterior urethra was without stricture or stenosis. The bulbar urethra had multiple thin bulbarstrictures that were easily bypassed by the scope and calibrated up to 20 Welsh. The prostatic fossa was approximately 2 cm in length and the lateral lobes were hypertrophied and coapted anteriorly. There was Negative evidence of a median lobe. The bladder was completely inspected. The ureteral orifices were in their normal anatomic configuration bilaterally. Findings: Efflux from ureteral orifices was clear. There were not mucosal lesions. Patient had several small thin bulbar strictures, that were bypassed by the scope and calibrated up to 20 Welsh. Patient tolerated the procedure: Decently well Assessment and Plan 1. 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 Renal calculi 3. Acute midline low back pain without sciatica 4. Gross hematuria Discussed options for his issues. These strictures were calibrated up nicely with the scope today. He will follow up for KUB in the future. We will set him up for a CT to assess for ureteral stones once again, as his back pain persists and we cannot see stones definitively on KUB. Should the CT be normal without any ureteral stones and back pain persists, may need referral to Dr Brito. Will call in a Medrol Dosepak to see if that helps with the back pain. F/U KUB in 12 months Follow up in about 1 year (around 12/31/2021) for KUB. Patient's Medications Accurate as of December 31, 2020 9:44 AM. Reflects encounter med changes as of last refresh New Prescriptions Instructions methylPREDNISolone 4 mg tablet Commonly known as: MEDROL DOSEPACK Started by: Jose White MD follow package directions Continued Medications Instructions buPROPion 100 mg 12 hr tablet Commonly known as: WELLBUTRIN SR 100 mg, Oral CENTRUM SILVER PO Oral donepezil HCl 10 mg tablet Commonly known as: ARICEPT 10 mg, Oral, Daily flecainide acetate 100 mg tablet Commonly known as: TAMBOCOR TAKE 1 TABLET(100 MG) BY MOUTH TWICE DAILY ipratropium 0.03% nasal spray Commonly known as: ATROVENT 2 sprays, 3 times a day ketorolac 10 MG tablet Commonly known as: TORADOL 10 mg, Oral, Every 6 hours as needed lisinopril 2.5 mg tablet Commonly known as: PRINIVIL,ZESTRIL 2.5 mg, Oral, Daily loratadine 5 mg chewable tablet Commonly known as: CLARITIN 5 mg, Oral memantine HCl 28 mg 24 hr capsule Commonly known as: NAMENDA XR take 1 capsule by mouth daily metoprolol succinate 50 mg 24 hr tablet Commonly known as: TOPROL-XL 50 mg, Oral, Daily naproxen 500 mg tablet Commonly known as: NAPROSYN 500 mg, Oral, 2 times a day tamsulosin 0.4 mg Caps Commonly known as: FLOMAX 0.4 mg, Daily Modified Medications Instructions atorvastatin 20 mg tablet Commonly known as: LIPITOR What changed: Another medication with the same name was removed. Continue taking this medication, and follow the directions you see here. Changed by: Jose White MD 20 mg, Oral, Daily metFORMIN ER 500 mg 24 hr tablet Commonly known as: GLUCOPHAGE-XR What changed: Another medication with the same name was removed. Continue taking this medication, and follow the directions you see here. Changed by: Jose White MD 500 mg, Oral, 2 times a day Discontinued Medications ondansetron 4 mg disintegrating tablet Commonly known as: ZOFRAN-ODT Stopped by: Jose White MD VITAMIN C PO Stopped by: Jose White MD Orders Placed This Encounter Procedures ??? CT Abdomen Pelvis WO IV Contrast ([facility] Protocol) ??? POCT urinalysis dipstick Risks, benefits, and alternatives of the medications and treatment plan prescribed today were discussed, and patient expressed understanding. Plan follow-up as discussed or as needed if any worsening symptoms or change in condition. documented in this encounter Plan of Treatment Upcoming Encounters Date Type Specialty Care Team Description 01/04/2022 Office Visit Urology Dayna White MD [address] [place] [phone] ([place]) documented as of this encounter Procedures Procedure Name Priority Date/Time Associated Comments Diagnosis POCT URINALYSIS Routine 12/31/2020 11:05 AM Other stricture of Results for this DIPSTICK EDT bulbous urethra in procedure are in male the results section. documented in this encounter Results CT Abdomen Pelvis WO IV Contrast ([facility] Protocol) (01/11/2021 10:33 AM EDT) Anatomical Region Laterality Modality Computed Tomography Narrative This result has an attachment that is no t available. Jose White MD IMG CT ORDERABLES (ABNORMAL) POCT urinalysis dipstick (12/31/2020 11:05 AM EDT) [facility] Method Time Signature Color Yellow Yellow, [place] [facility] Straw, Dark UROLOGY yellow, ([place]) Colorless, Bright yellow, Xant[place], Comment, Pale Yellow Clarity Clear Clear, [place] [facility] Slightly UROLOGY hazy ([place]) Glucose,Urine Negative Negative [place] [facility] mg/dL UROLOGY ([place]) Bilirubin Negative Negative [place] [facility] ([place]) Ketones,Urine Negative Negative [place] [facility] mg/dL UROLOGY ([place]) Specific [place] <=1.005 (A) 1.005 - [place] [facility] 1.030 UROLOGY ([place]) Blood Trace-intact Negative [place] [facility] (A) UROLOGY ([place]) pH 5.0 5.0 - 9.0 [place] [facility]Y ([place]) Protein Negative Negative [place] [facility] mg/dL UROLOGY ([place]) Urobilinogen 0.2 0.2, 1.0 [place] [facility] EU/dL UROLOGY ([place]) Nitrite Negative Negative [place] [facility] ([place]) Leukocyte Negative Negative [place] [facility] Esterase UROLOGY ([place]) Specimen (Source) Anatomical Collection Method Collection Time Re ceived Time Location / / Volume Laterality Urine 12/31/2020 11:05 AM EDT Jose White MD POINT OF CARE TEST ORDERABLE S Performing Organization Address City/State/ZIP Code Phon e Number [place] [facility] [address] [place] [address] ([place]) Dr Andres documented in this encounter Visit Diagnoses Diagnosis 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 - Primary Renal calculi Calculus of kidney Acute midline low back pain without scia isabel Gross hematuria documented in this encounter Care Teams Senior Java Ui Developer Relationship Specialty Start Date End Date Neal Breen MD PCP - General Family Medicine 01/21/19 Pascual Benoit MD Otolaryngology 08/17/17 [address] [facility] [place] [address] Shell Freeman PA Physician Private Inquiry Agent Physician Private Inquiry Agent 01/21/19 [address] [facility] [place] [address] documented as of this encounter
--- OUTSIDE RECORDS SUMMARY | 2021-11-30 11:53 | XMS_ITS | Encounter Summary ---
:1955 Author Organization [facility] [place] [address] Care Team Providers Name Role Phone Pascual Benoit MD Unavailable Neal Breen MD Primary Care Provider Shell Freeman Unavailable Encounter Details Date Type Department Care Team Description 03/11/2019 Travel Social History Tobacco Use Types Packs/Day Years Used Date Former Smoker Smokeless Tobacco: Never Used Sex Assigned at Date Recorded Not on file documented as of this encounter Plan of Treatment Upcoming Encounters Date Type Specialty Care Team Description 01/04/2022 Office Visit Urology Dayna White MD [address] [facility] [place], [place] [address] ([place]o r[place]) documented as of this encounter Visit Diagnoses Not on filedocumented in this encounter Care Teams Manufacturing Project Engineer Relationship Specialty Start Date End Date Neal Breen MD PCP - General Family Medicine 01/21/19 Pascual Benoit MD Otolaryngology 08/17/17 [address] [facility] [place] [address] Shell Freeman PA Physician Sole Seamer Physician Sole Seamer 01/21/[address] [place] [address] [place] [address] documented as of this encounter
--- OUTSIDE RECORDS SUMMARY | 2021-11-30 11:53 | XMS_ITS | Encounter Summary ---
:1955 Author Organization [employer] [place] [address] Care Team Providers Name Role Phone Pascual Benoit MD Unavailable Neal Breen MD Primary Care Provider Shell Freeman Unavailable Reason for Visit Reason Comments Flank Pain Urinary Urgency Encounter Details Date Type Department Care Team Description 01/12[facility] Shell Freeman, Left uret eral calculus (Primary Dx); [facility] TAQUERIA Left flank pain; ([place]) [facility] Microhematuria; [facility] Urinary [place] [phone] (Wo rk) Social History Tobacco Use Types [...] Sign Reading Time Taken Comments Blood Pressure 111/74 01/12/2021 8:51 AM EDT Pulse 66 01/12/2021 8:51 AM EDT Temperature 36.2 ??C (97.1 ??F) 01/12/2021 8:51 AM EDT Respiratory Rate - - Oxygen Saturation - - Inhaled Oxygen Concentration - - Weight - - Height - - Body Mass Index - - documented in this encounter Patient Instructions Patient InstructionsDaTAQUERIA Starr - 01/12/2021 9:16 AM EDT We will go ahead and schedule your surgery for 01/15/2021 at [facility] with Dr. Ndiaye. Nothing to eat or drink after midnight , 01/14/2021. Take normal medications day of procedurewith a small sip of water. Hold anticoagulants beginning today (Asprin, ibuprofen, naproxen, goody power, aleve). documented in this encounter Progress Notes TAQUERIA Wesley - 01/12/2021 8:30 AM EDT Images from the original note were not included. Subjective Patient ID: Dario Mckeon is a 65 y.o. ( 1955) male Patient presents with ??? Flank Pain ??? Urinary Urgency HPI: Dario Mckeon is a 65 y.o. male who presents today for preoperative counseling. Patient with a history of nephrolithiasis and a urethral stricture. He has a history of DVIU 03/2019per Dr. Ndiaye with repeat dilatation up to 20 [place] 12/31/[address] White. He has a history of back pain without improvement on anti-inflammatories or steroids for which he was sent for CT. CT at [facility] 01/07/2021 revealed 5 mm proximal left ureteral stone without hydronephrosis,bilateral nonobstructive stones. His back pain is generally localized within right flank. I have gone over the CT scan images with the patient. CT done at [facility] on 01/07/2021. + 5 mm proximal left ureteral stone without obstruction + Multiple calyceal stones bilaterally with perirenal fat stranding but no hydronephrosis Current treatment: Advil PRN Today's complaints: He notes persistent right flank/lower back pain without radiculopathy. No left flank or abdominal pain. He notes persistent urinary urgency with near urge incontinence on occasion. No dysuria or hematuria. No n/v. Allergies Allergen Reactions ??? Morphine Itching ??? Sulfa Antibiotics Itching ??? Ciprofloxacin Unknown ??? Codeine Hives ??? Dextromethorphan-Quinidine Diarrhea When medication was increased to BID Past Medical History: Diagnosis Date ??? Cerebral hemorrhage (*) ??? Diabetes mellitus (*) ??? Hyperlipidemia ??? Hypertension ??? Seizures (*) ??? Stroke (*) ??? Tachycardia, unspecified Past Surgical History: Procedure Laterality Date ??? Cardiac electrophysiology study and ablation ??? Knee arthroplasty History reviewed. No pertinent family history. Social History Socioeconomic History ??? Marital status: Single Spouse name: Not on file ??? Number of children: Not on file ??? Years of education: Not on file ??? Highest education level: Not on file Occupational History ??? Not on file Tobacco Use ??? Smoking status: Former Smoker ??? Smokeless tobacco: Never Used Substance and Sexual Activity ??? Alcohol use: Not on file ??? Drug use: Not on file ??? Sexual activity: Not on file Other [...] Gatherings with Friends and Family: ??? Attends Jainism Services: ??? Active Member of Clubs or Organizations: ??? Attends Club or Organization Meetings: ??? Marital Status: Intimate Partner Violence: ??? Fear of Current or Ex-Partner: ??? Emotionally Abused: ??? Physically Abused: ??? Sexually Abused: Reviewed and updated this visit by provider: Tobacco Allergies Meds Problems Med Hx Surg Hx Fam Hx Soc Hx Review of Systems Constitutional: Negative for chills and fever. HENT: Negative for congestion, postnasal drip, rhinorrhea and sore throat. Eyes: Negative for discharge. Respiratory: Negative for cough and shortness of breath. Cardiovascular: Negative for leg swelling. Gastrointestinal: Negative for abdominal pain, constipation, nausea and vomiting. Endocrine: Negative for polyuria. Genitourinary: Positive for flank pain (R) and urgency. Negative for difficulty urinating, dysuria, frequency and hematuria. Musculoskeletal: Negative for back pain. Neurological: Negative for dizziness, light-headedness and headaches. Psychiatric/Behavioral: Negative for confusion and decreased concentration. All other systems reviewed and are negative. Objective Vitals: 01/12/21 0851 BP: 111/74 Pulse: 66 Temp: 97.1 ??F (36.2 ??C) TempSrc: Temporal PainSc: 6 PainLoc: Back Physical Exam Constitutional: Appearance: He is well-developed. HENT: Head: Normocephalic and atraumatic. Eyes: Pupils: Pupils are equal, round, and reactive to light. Cardiovascular: Rate and Rhythm: Normal rate and regular rhythm. Heart sounds: Normal heart sounds. No murmur heard. Musculoskeletal: General: Normal range of motion. Cervical back: Normal range of motion. Pulmonary: Effort: Pulmonary effort is normal. No respiratory distress. Breath sounds: Normal breath sounds. No wheezing. Abdominal: Palpations: Abdomen is soft. Tenderness: There is no abdominal tenderness (to deep palpation). There is right CVA tenderness. There is no left CVA tenderness. Skin: General: Skin is warm. Neurological: Mental Status: He is alert and oriented to person, place, and time. Psychiatric: Behavior: Behavior normal. Recent Results (from the past 24 hour(s)) POCT urinalysis dipstick Collection Time: 01/12/21 8:54 AM Result Value Ref Range Color Yellow Yellow, Straw, Dark yellow, Colorless, Bright yellow, Xantho, Comment, Pale Yellow Clarity Clear Clear, Slightly hazy Glucose,Urine Negative Negative mg/dL Bilirubin Negative Negative Ketones,Urine Negative Negative mg/dL Specific Antigo >=1.030 (A) 1.005 - 1.030 Blood Moderate (A) Negative pH 5.0 5.0 - 9.0 Protein Negative Negative mg/dL Urobilinogen 0.2 0.2, 1.0 EU/dL Nitrite Negative Negative Leukocyte Esterase Negative Negative I ordered a KUB on Dario Mckeon and I went over the images with them. I independently visualized the films today without the help of a radiologist. The findings are as follows. The bony and soft tissue structures are normal. I can see abnormal calcifications- 7 mm mid left ureteral stone opposite L4.He does have phleboliths. Assessment and Plan 1. Left ureteral calculus 2. Left flank pain 3. Microhematuria 4. Urinary urgency Patient has a few month history of right flank pain though CT fails to reveal any right renal obstruction. He does have a left ureteral stone which is persistent on KUB today. I have discussed options for this stone to include observation/trial of passage, staged ureteroscopy, ESWL. After discussion, he would like to proceed with ESWL. I have gone over the risks, benefits, and alternatives to left extracorporeal shockwave lithotripsy.Dario Mike would like to proceed with surgery at [facility] per Dr. Ndiaye on 01/15/2021. This will be elective low risk surgery and the risk factors for this patient which would put them at increased risk for complications are: n/a Follow up in about 1 month (around 02/11/2021) for post-op ESWL. Patient's Medications Accurate as of January 12, 2021 9:29 AM. Reflects encounter med changes as of [...] known as: TOPROL-XL 50 mg, Oral, Daily tamsulosin 0.4 mg Caps Commonly known as: FLOMAX 0.4 mg, Oral, Daily Discontinued Medications ketorolac 10 MG tablet Commonly known as: TORADOL Stopped by: TAQUERIA Wesley methylPREDNISolone 4 mg tablet Commonly known as: MEDROL DOSEPACK Stopped by: TAQUERIA Wesley naproxen 500 mg tablet Commonly known as: NAPROSYN Stopped by: TAQUERIA Wesley Orders Placed This Encounter Procedures ??? XR Abdomen Ap ??? POCT urinalysis dipstick Risks, benefits, and alternatives of the medications and treatment plan prescribed today were discussed, and patient expressed understanding. Plan follow-up as discussed or as needed if any worsening symptoms or change in condition. documented in this encounter Plan of Treatment Upcoming Encounters Date Type Specialty Care Team Description 01/04/2022 Office Visit Urology Dayna White MD [address] [place] [phone] (Wo rk) documented as of this encounter Procedures Procedure Name Priority Date/Time Associated Comments Diagnosis XR ABDOMEN AP Routine 01/12/2021 8:59 AM Left ureteral Results for this EDT calculus procedure are i n the results section. POCT URINALYSIS Routine 01/12/2021 8:54 AM Left ureteral Resul ts for this DIPSTICK EDT calculus procedure are i n the results section. documented in this encounter Results XR Abdomen Ap (01/12/2021 8:59 AM EDT) Anatomical Region Laterality Modality Abdomen Computed Radiography Specimen (Source) Anatomical Location Collection Method / Collectio n Time Received Time / Laterality Volume Impressions 01/12/2021 8:39 AM EDT Study was ordered and performed in clinic. It was interpreted by ordering provider. Please see office note dated 01/12/2021 for results Shell MENG IMG DIAGNOSTIC IMAGING ORDER MASOUD (ABNORMAL) POCT urinalysis dipstick (01/12/2021 8:54 AM EDT) [facility] Method Time Signature Color Yellow Yellow, [place] ALMANZA Straw, Dark UROLOGY yellow, (ALPHA) Colorless, Bright yellow, Xantho, Comment, Pale Yellow Clarity Clear Clear, [place] ALMANZA Slightly UROLOGY hazy (ALPHA) Glucose,Urine Negative Negative [place] ALMANZA mg/dL UROLOGY (ALPHA) Bilirubin Negative Negative [place] ALMANZA UROLOGY (ALPHA) Ketones,Urine Negative Negative IA ALMANZA mg/dL UROLOGY (ALPHA) Specific Antigo >=1.030 (A) 1.005 - NH ALMANZA 1.030 UROLOGY (ALPHA) Blood Moderate (A) Negative IA ALMANZA UROLOGY (ALPHA) pH 5.0 5.0 - 9.0 NH ALMANZA UROLOGY (ALPHA) Protein Negative Negative NH ALMANZA mg/dL UROLOGY (ALPHA) Urobilinogen 0.2 0.2, 1.0 [place] ALMANZA EU/dL UROLOGY (ALPHA) Nitrite Negative Negative IA ALMANZA UROLOGY (ALPHA) Leukocyte Negative Negative IA ALMANZA Esterase UROLOGY (ALPHA) Specimen (Source) Anatomical Collection Method Collection Time Re ceived Time Location / / Volume Laterality Urine 01/12/2021 8:54 AM EDT Shell MENG POINT OF CARE TEST ORDERABLE S Performing Organization Address City/State/ZIP Code Phon e Number [facility] [address] [place] [address] (ALPHA) Dr Andres documented in this encounter Visit Diagnoses Diagnosis Left ureteral calculus - Primary Calculus of ureter Left flank pain Abdominal pain, unspecified site Microhematuria Urinary urgency Urgency of urination documented in this encounter Care Teams Rework Machine Operator Relationship Specialty Start Date End Date Neal Breen MD PCP - General Family Medicine 01/21/19 Pascual Benoit MD Otolaryngology 08/17/[address] [facility] [place] [address] [place] [address] Shell Freeman PA Physician Hog Cooler Physician Hog Cooler 01/21/19 [address] [facility] [place] [address] documented as of this encounter
--- OUTSIDE RECORDS SUMMARY | 2021-11-30 11:53 | XMS_ITS | Encounter Summary ---
:1955 Author Organization [facility] [place] [address] Care Team Providers Name Role Phone Pascual Benoit MD Unavailable Neal Breen MD Primary Care Provider Shell Freeman Unavailable Encounter Details Date Type Department Care Team Description 01/12/2021 Ancillary Procedure [facility] Shell Virk PA Urology ([address] [place] [phone] (Darrel avila) Social History [...] 01/04/2022 Office Visit Urology Dayna White MD [address] [place] [address] [place], [place] [address] (Darrel avila) documented as of this encounter Procedures Procedure Name Priority Date/Time Associated Diagnosis Comme nts XR ABDOMEN AP Routine 01/12/2021 8:59 AM Left ureteral Results for this EDT calculus procedure are i n the results section . documented in this encounter Results XR Abdomen Ap (01/12/2021 8:59 AM EDT) Anatomical Region Laterality Modality Abdomen Computed Radiography Specimen (Source) Anatomical Location Collection Method / Collectio n Time Received Time / Laterality Volume Impressions 01/12/2021 8:39 AM EDT Study was ordered and performed in clinic. It was interpreted by ordering provider. Please see office note dated 01/12/2021 for results Shell MENG IMMargarita DIAGNOSTIC IMAGING ORDER MASOUD documented in this encounter Visit Diagnoses Not on filedocumented in this encounter Care Teams Hogshead Inspector Relationship Specialty Start Date End Date Neal Breen MD PCP - General Family Medicine 01/21/19 Pascual Benoit MD Otolaryngology 08/17/17 [address] [place] [address] Shell Freeman PA Physician Hydrological Technical Officer Physician Hydrological Technical Officer 01/21/19 [address] [facility] [place] [phone] documented as of this encounter
--- OUTSIDE RECORDS SUMMARY | 2021-11-30 11:53 | XMS_ITS | Encounter Summary ---
:1955 Author Organization [facility] [place] [address] Care Team Providers Name Role Phone Pascual Benoit MD Unavailable Neal Breen MD Primary Care Provider Shlel Freeman Unavailable Encounter Details Date Type Department Care Team Description 02/03/2021 Travel Social History Tobacco Use Types Packs/Day [...] 01/04/2022 Office Visit Urology Dayna White MD [address] [place] [address] [place], [place] [address] (Wo rk) documented as of this encounter Visit Diagnoses Not on filedocumented in this encounter Care Teams Support Architect Relationship Specialty Start Date End Date Neal Breen MD PCP - General Family Medicine 01/21/19 Pascual Benoit MD Otolaryngology 08/17/17 [address] [place] [address] Shell Freeman PA Physician Agency Operator Physician Agency Operator 01/21/[address] [place] [address] [place] [phone] documented as of this encounter
--- OUTSIDE RECORDS SUMMARY | 2021-11-30 11:53 | XMS_ITS | Encounter Summary ---
:1955 Author Organization [facility] [place] [address] Care Team Providers Name Role Phone Pascual Benoit MD Unavailable Neal Breen MD Primary Care Provider Shell Freeman Unavailable Encounter Details Date Type Department Care Team Description 04/02/2019 Travel Social History Tobacco Use Types Packs/Day Years Used Date Former Smoker Smokeless Tobacco: Never Used Sex Assigned at Date Recorded Not on file documented as of this encounter Plan of Treatment Upcoming Encounters Date Type Specialty Care Team Description 01/04/2022 Office Visit Urology Dayna White MD [address] [facility] [place], [place] [address] (Wo rk) documented as of this encounter Visit Diagnoses Not on filedocumented in this encounter Care Teams Reconcilement Clerk Relationship Specialty Start Date End Date Neal Breen MD PCP - General Family Medicine 01/21/19 Pascual Benoit MD Otolaryngology 08/17/17 [address] [place] [address] Shell Freeman PA Physician Relay Shop Supervisor Physician Relay Shop Supervisor 01/21/[address] [place] [address] [place] [address] documented as of this encounter
--- OUTSIDE RECORDS SUMMARY | 2021-11-30 11:53 | XMS_ITS | Encounter Summary ---
:1955 Author Organization [employer] [place] [address] Care Team Providers Name Role Phone Pascual Benoit MD Unavailable Neal Breen MD Primary Care Provider Shell Freeman Unavailable Reason for Visit Reason Comments Post-op Encounter Details Date Type Department Care Team Description 04/19/2019 Office Visit [facility] Radha Olmstead Other stri cture of bulbous urethra in male (Primary Dx); [facility] Tasha, EXHIBITS MANAGER Paraphimosis; (Many) [facility] Benign prostatic hyperplasia with urinary frequency [address] [place] [address] [place] [address] [place] [address] Social History Tobacco Use Types Packs/Day Years Used Date Former Smoker Smokeless Tobacco: Never Used Tobacco Cessation: Counseling Given: No Sex Assigned at Date Recorded Not on file documented as of this encounter Last Filed Vital Signs Vital Sign Reading Time Taken Comments Blood Pressure 103/63 04/19/2019 10:35 AM EST Pulse 57 04/19/2019 10:35 AM EST Temperature - - Respiratory Rate - - Oxygen Saturation - - Inhaled Oxygen Concentration - - Weight 107 kg (236 lb) 04/19/2019 10:35 AM EST Height 180.3 cm (5' 11) 04/19/2019 10:35 AM EST Body Mass Index 32.92 04/19/2019 10:35 AM EST documented in this encounter Progress Notes Radha Olmstead NP - 04/19/2019 10:30 AM EST Images from the original note were not included. Subjective: Patient ID: Dario Mckeon is a 63 y.o. ( 1955) male. HPI This is a 63-year-old male who is status post cystoscopy with DVIU per Dr. Ndiaye at [facility] on 03/29/2019. It was performed for definitive management of a bulbar stricture and irritative voiding symptoms of dysuria and urgency. ?? Per Dr. Ndiaye operative note he was found to have a strictured area at the 12 o'clock position measuring less than 1 cm in length. He also was noted to have a minimally obstructing prostate and 2+ trabeculations secondary to this bladder outlet obstruction. ?? 20 Italian indwelling Blanco catheter was placed and he was instructed to leave in place 5 to 7 days. ?? He subsequently experienced a paraphimosis postoperatively and presented to office with an urgent unscheduled visit for reduction. During the office visit he also experienced a vasovagal episode in which he was able to return to normal after fluids and lying flat Has no complaints today. Denies any hesitancy, straining, intermittency, weakened stream. Denies anynocturia. Denies any dysuria or gross hematuria. He is extremely happy with his results Reviewed and updated this visit by provider: Tobacco Allergies Meds Problems Med Hx SE Hx Surg Hx Fam Hx Review of Systems Constitutional: Negative for chills, diaphoresis, fatigue and fever. Gastrointestinal: Negative for abdominal pain, constipation, diarrhea, nausea and vomiting. Genitourinary: Negative for difficulty urinating, dysuria, flank pain, frequency, hematuria, testicular pain and urgency. Musculoskeletal: Negative for back pain. All other systems reviewed and are negative. Objective: Vitals: 04/19/19 1035 BP: 103/63 Pulse: 57 Height: 5' 11 (1.803 m) Weight: 236 lb (107 kg) BMI (Calculated): 32.9 Physical Exam Vitals signs and nursing note reviewed. Constitutional: Appearance: He is well-developed. HENT: Head: Normocephalic and atraumatic. Eyes: Pupils: Pupils are equal, round, and reactive to light. Neck: Musculoskeletal: Normal range of motion. Musculoskeletal: Normal range of motion. General: No tenderness. Pulmonary: Effort: Pulmonary effort is normal. Abdominal: General: There is no distension. Palpations: Abdomen is soft. Tenderness: There is no abdominal tenderness. There is no rebound. Skin: General: Skin is warm and dry. Findings: No rash. Neurological: Mental Status: He is alert and oriented to person, place, and time. Coordination: Coordination normal. Psychiatric: Behavior: Behavior normal. Results for orders placed or performed in visit on 04/19/19 (from the past 24 hour(s)) URINE DIPSTICK,VISUAL READ Collection Time: 04/19/19 10:43 AM Result Value Ref Range Color Yellow Yellow, Straw, Dark yellow, Colorless, Bright yellow, Xantho, Comment, Pale Yellow Clarity Clear Clear, Slightly hazy Glucose,Urine Negative Negative mg/dL Bilirubin Negative Negative Ketones,Urine Negative Negative mg/dL Specific [place] >=1.030 (A) 1.005 - 1.030 Blood Negative Negative pH 5.0 5.0 - 9.0 Protein Negative Negative mg/dL Urobilinogen 0.2 0.2, 1.0 EU/dL Nitrite Negative Negative Leukocyte Esterase Negative Negative Limited Bladder Sonography: The patients bladder showed no bladder wall thickening, negative intraluminal abnormalities, and a PVR of 17 mL. Assessment / Plan: Assessment 1. 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 Paraphimosis 3. Benign prostatic hyperplasia with urinary frequency Plan Follow-up in 6 months for recheck of symptoms and repeat bladder sonography, PRN if needed sooner Follow-up on an as-needed basis if at return he is doing well The patient was able to repeat back how to take and/or apply the prescribed medication(s). Patient's Medications Accurate as of April 19, 2019 10:57 AM. Reflects encounter med changes as of last refresh Continued Medications Instructions atorvastatin calcium 10 mg tablet Commonly known as: LIPITOR 10 mg, Oral, Daily CENTRUM SILVER PO Oral donepezil HCl 10 mg tablet Commonly known as: ARICEPT 10 mg, Oral, Daily flecainide acetate 100 mg tablet Commonly known as: TAMBOCOR 100 mg, Oral fluticasone propionate 50 mcg/actuation nasal spray Commonly known as: FLONASE 2 sprays by Each Nare route daily. glucose blood test strip Commonly known as: ONETOUCH ULTRA BLUE Use to check blood sugar one time(s) daily. One Touch Ultra Blue Strips Dx: e11.9 loratadine 5 mg chewable tablet Commonly known as: CLARITIN 5 mg, Oral memantine HCl 28 mg 24 hr capsule Commonly known as: NAMENDA XR take 1 capsule by mouth daily metFORMIN 500 MG tablet Commonly known as: GLUCOPHAGE take 1 tablet by mouth twice a day metoprolol succinate 50 mg 24 hr tablet Commonly known as: TOPROL-XL 50 mg, Oral, Daily VITAMIN C PO Oral Orders Placed This Encounter Procedures ??? URINE DIPSTICK,VISUAL READ Risks, benefits, and alternatives of the medications and treatment plan prescribed today were discussed, and patient expressed understanding. Plan follow-up as discussed or as needed if any worsening symptoms or change in condition. documented in this encounter Plan of Treatment Upcoming Encounters Date Type Specialty Care Team Description 01/04/2022 Office Visit Urology Dayna White MD [address] [place] [phone] (Wo rk) documented as of this encounter Procedures Procedure Name Priority Date/Time Associated Diagnosis Comme nts URINE Routine 04/19/2019 10:43 AM Paraphimosis Results for this DIPSTICK,VISUAL EST Other stricture of proced ure are in READ bulbous urethra in the resul ts male section. Benign prostatic hyperplasia with urinary frequency documented in this encounter Results (ABNORMAL) URINE DIPSTICK,VISUAL READ (04/19/2019 10:43 AM EST) [facility] Method Time Signature Color Yellow Yellow, [place] [facility] Straw, Dark UROLOGY yellow, ([place]) Colorless, Bright yellow, Xantho, Comment, Pale Yellow Clarity Clear Clear, [place] [facility] Slightly UROLOGY hazy ([place]) Glucose,Urine Negative Negative [facility] mg/dL UROLOGY ([place]) Bilirubin Negative Negative [facility] ([place]) Ketones,Urine Negative Negative [place] [facility] mg/dL UROLOGY ([place]) Specific [place] >=1.030 (A) 1.005 - [place] [facility] 1.030 UROLOGY ([place]) Blood Negative Negative [facility] ([place]) pH 5.0 5.0 - 9.0 [facility] ([place]) Protein Negative Negative [place] [facility] mg/dL UROLOGY ([place]) Urobilinogen 0.2 0.2, 1.0 [place] [facility] EU/dL UROLOGY ([place]) Nitrite Negative Negative [facility] ([place]) Leukocyte Negative Negative [facility] Esterase UROLOGY ([place]) Specimen (Source) Anatomical Collection Method Collection Time Re ceived Time Location / / Volume Laterality Urine 04/19/2019 10:43 AM EST Radha Olmstead NP POINT OF CARE TEST ORDERABLE S Performing Organization Address City/State/ZIP Code Phon e Number [facility] [address] [place] [address] ([place]) Dr Andres documented in this encounter Visit Diagnoses Diagnosis 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 - Primary Paraphimosis Redundant prepuce and phimosis Benign prostatic hyperplasia with urinar y frequency documented in this encounter Care Teams Pants Presser Automatic Relationship Specialty Start Date End Date Neal Breen MD PCP - General Family Medicine 01/21/19 Pascual Benoit MD Otolaryngology 08/17/17 [address] [facility] [place] [address] Shell Freeman PA Physician Duct Layer Physician Duct Layer 01/21/[address] [facility] [place] [address] documented as of this encounter
--- OUTSIDE RECORDS SUMMARY | 2021-11-30 11:53 | XMS_ITS | Clinical Summary ---
:1955 Author Organization [employer] [place] [address] Care Team Providers Name Role Phone Pascual Benoit MD Unavailable Neal Breen MD Primary Care Provider Shell Freeman Unavailable Allergies Active Allergy Reactions Severity Noted Date Comments Ciprofloxacin Unknown Medium 04/02/2019 Codeine Hives Medium 01/31/2019 Dextromethorphan-Quinidine Diarrhea Low 09/16/2020 W hen medication was increased to BID Morphine Itching High 01/09/2016 Sulfa Antibiotics Itching High 01/09/2016 Medications Medication Sig Dispensed Refills Start Date End Date Status metoprolol succinate Take 50 mg by 0 Active (TOPROL-XL) 50 mg 24 hr mouth daily. tablet Multiple Take by mouth. 0 Activ e Vitamins-Minerals (CENTRUM SILVER PO) memantine HCl (NAMENDA take 1 capsule 0 04/11/2018 Active XR) 28 mg 24 hr capsule by mouth daily donepezil HCl (ARICEPT) Take 10 mg by 0 11/12/2018 Active 10 mg tablet mouth daily. lisinopril Take 2.5 mg by 0 09/16/2020 Act susan (PRINIVIL,ZESTRIL) 2.5 mouth daily. mg tablet ipratropium (ATROVENT) 2 sprays 3 0 10/02/2020 Active 0.03% nasal spray (three) times a day. flecainide acetate TAKE 1 0 06/10/2020 Active (TAMBOCOR) 100 mg TABLET(100 MG) tablet BY MOUTH TWICE DAILY buPROPion (WELLBUTRIN Take 100 mg by 0 Active SR) 100 mg 12 hr tablet mouth. metFORMIN ER Take 500 mg by 0 12/27/2020 A ctive (GLUCOPHAGE-XR) 500 mg mouth 2 (two) 24 hr tablet times daily. atorvastatin (LIPITOR) Take 20 mg by 0 12/14/2020 Active 20 mg tablet mouth daily. tamsulosin (FLOMAX) 0.4 TAKE 1 30 capsule 5 02/11/2021 Active mg CAPSIndications: CAPSULE(0.4 MG) Aftercare following BY MOUTH DAILY surgery of the genitourinary system, S/P extracorporeal shock wave therapy, Nephrolithiasis, Chronic bilateral low back pain without sciatica, DJD (degenerative joint disease), lumbosacral Active Problems Problem Noted Date Moderate obstructive sleep apnea 11/20/2019 Hyperlipidemia associated with type 2 diabetes mellitu s 09/12/2019 Moderate episode of recurrent major depressive disorde r 12/14/2018 Hypertension associated with diabetes 10/17/2016 DDD (degenerative disc disease), lumbar 08/17/2016 SVT (supraventricular tachycardia) 08/27/2010 Overview: Formatting of this note might be differe nt from the original. -At least 4 episodes of SVT: 1 year ago, 6 months ago, 03/05/09, and 03/17/09 (on metoprolol 25 mg BID for most recent episode). Symptoms during SVT include palpitations and near-syncope (one episode bro ught pt to his knees); some SVT in [facility] was asymptomatic. The SVT CL is 330 ms, with episodes of 2:1 block. -Successful ablation of typical (cavotr icuspid-isthmus dependent) atrial flutter 03/18/2009, induced at [facility]. -Unsuccessful ablation of clinical atri al tachycardia, with early activation (70 ms pre-P wave) near lateral TV annulus and also near high septum; low voltage in lateral RA; it is possible that this represents a single macro- reentrant atrial tachycardia/flutter not dependent on th e cavotricuspid isthmus. Discharged on increased metoprolol and flecainide. -If repeat ablation is considered, woul d perform with 3-D activation mapping and general anesthesia for patient comfort (significant shoulder pain during ablation). -Echo 02/27/09 --> EF 70%, concentric L VH, left atrium mildly enlarged, normal aortic and mitral valves, no pericardial effusion. Family History Relation Name Status Comments Father Mother Alive Social History Tobacco Use Types Packs/Day Years Used Date Former Smoker Smokeless Tobacco: Never Used Tobacco Cessation: Counseling Given: No Sex Assigned at Date Recorded Not on file Last Filed Vital Signs Vital Sign Reading Time Taken Comments Blood Pressure 116/76 02/03/2021 10:13 AM EDT Pulse 61 02/03/2021 10:13 AM EDT Temperature 36.2 ??C (97.1 ??F) 01/12/2021 8:51 AM EDT Respiratory Rate 18 05/20/2018 9:58 AM EST Oxygen Saturation 96% 05/20/2018 9:58 AM EST Inhaled Oxygen Concentration - - Weight 111.1 kg (245 lb) 02/03/2021 10:13 AM EDT Height 179.1 cm (5' 10.5) 02/03/2021 10:13 AM EDT Body Mass Index 34.66 02/03/2021 10:13 AM EDT Plan of Treatment Upcoming Encounters Date Type Specialty Care Team Description 01/04/2022 Office Visit Urology Dayna White MD [address] [place] [phone] (Wo rk) Health Maintenance Due Date Last Done Comments Cologuard 1955 Colonoscopy 1955 Colorectal Cancer Screening 1955 Diabetes Annual 1955 Microalbumin/Creatinine Ratio FOBT/IFOB 1955 COVID-19 Vaccine (#1) 05/06/1956 Diabetes Hemoglobin A1C 11/03/1956 Pneumococcal Vaccine: 65+ Years (1 11/03/1961 - PCV) Diabetes Eye Exam 11/03/1965 Creatinine Level 11/03/1973 Diabetes Foot Exam 11/03/1973 Diabetes GFR/EGFR 11/03/1973 Diabetes Lipid Profile 11/03/1973 Medicare Annual Wellness 11/03/1973 Potassium Level 11/03/1973 DTaP/Tdap/Td Vaccines (1 - Tdap) 11/03/1974 Zoster Vaccine (1 of 2) 11/03/2005 Abdominal Aortic Aneurysm (AAA) 11/03/2020 Screen Hepatitis A Vaccine Aged Out No longer el igible based on patient's age to complete this topic Hepatitis B Vaccine Aged Out No longer el igible based on patient's age to complete this topic Meningococcal Conjugate Vaccine Aged Out No longer eligible based on patient's age to complete this topic Insurance Payer Benefit Plan / Subscriber ID Effective Dates Phone Addre ss Type Group MEDICARE MEDICARE-A/B [id number] 2018-[employer] [address] [place] [address] BCBS BLUE BCBS OUT OF [id number] 2020-[employer] [address] CARD/OUT OF STATE t [place] STATE SUITCASE (SUITCASE [id number] LOGO) Advance Directives For more information, please contact: [phone] Healthcare Agents on File Name Relationship Healthcare Agent Relationship Co mmunication Teagan Emerson Other [place] [phone] ([facility]) Care Teams Chief Learning Officer Relationship Specialty Start Date End Date Neal Breen MD PCP - General Family Medicine 01/21/19 Pascual Benoit MD Otolaryngology 08/17/17 [address] [facility] [place] [address] Shell Freeman PA Physician Channel Sales Director Physician Channel Sales Director 01/21/19 [address] [facility] [place] [address]
--- OUTSIDE RECORDS SUMMARY | 2021-11-30 11:53 | XMS_ITS | Encounter Summary ---
:1955 Author Organization [facility] [place] [address] Care Team Providers Name Role Phone Chetna Loredo MD Primary Care Provider [phone] Pascual Benoit MD Unavailable Reason for Visit Reason Comments Hearing Problem referred by Chetna thomason for hearing loss, has ringing in both ears as well. Also having si nus issues, with facial pressure, congestion. Otolaryngology (Routine) - Closed Specialty Diagnoses / Procedures Referred By Contact Refer red To Contact Otolaryngology Diagnoses arnp/hearing loss/Chetna Osman, Pascual Benoit MD Procedures OFFICE VISIT [facility] hospitalDemetri Rodriguez katelin [address] [place] [address] [address] [place] [id number] Referral ID Status Reason Start Date Expiration Date Visits Requ ested Visits Authorized [id number] Closed 08/17/2017 1 1 Encounter Details Date Type Department Care Team Description 08/17/2017 [facility] Pascual Benoit M D Sensorineural hearing loss, bilateral (P rimary Dx); [facility] [address] ve Tinnitus of both ears; Allergy [address] Seasonal allergic rhinitis due to pollen ([place]) [address] [place] [address] Social History Tobacco Use Types Packs/Day Years Used Date Former Smoker Smokeless Tobacco: Never Used Sex Assigned at Date Recorded Not on file documented as of this encounter Last Filed Vital Signs Vital Sign Reading Time Taken Comments Blood Pressure - - Pulse 82 08/17/2017 11:00 AM EDT Temperature - - Respiratory Rate - - Oxygen Saturation - - Inhaled Oxygen Concentration - - Weight 117.9 kg (260 lb) 08/17/2017 11:00 AM EDT Height 180.3 cm (5' 11) 08/17/2017 11:00 AM EDT Body Mass Index 36.26 08/17/2017 11:00 AM EDT documented in this encounter Patient Instructions Patient InstructionsPascual Benoti MD - 08/17/2017 9:15 PM EDT I have recommended an audiogram and we can call with results and recommendations. I have also discussed medical, dietary and behavioral options for managing tinnitus. He will likely try Lipoflavinoids and call if not successful. documented in this encounter Progress Notes Pascual Benoit MD - 08/17/2017 11:58 AM EDT Subjective: Patient ID: Dario Mckeon is a 61 y.o. ( 1955) male. HPI Here for chief c/o hearing loss and tinnitus. These problems are bilateral and worse on the left. Hehas noted this for years and it is slowly getting worse. He has a long h/o occupational noise exposure. He denies otalgia or otorrhea or dizziness. He has also noted more nasal congestion, PND, and sinus pressure. He denies fever or cough. Claritin helps a little. The patient's allergies, current medications, past family history, past medical history, past socialhistory, past surgical history and problem list were reviewed and updated as appropriate. .He is referred through the kind courtesy of Dr. Loredo. Review of Systems Constitutional: Negative for fatigue and fever. HENT: Positive for congestion, hearing loss, postnasal drip, rhinorrhea, sinus pressure and tinnitus. Negative for ear discharge, ear pain, facial swelling and sinus pain. Eyes: Negative. Respiratory: Negative for cough, shortness of breath, wheezing and stridor. Musculoskeletal: Positive for arthralgias. Skin: Negative. Allergic/Immunologic: Positive for environmental allergies. Negative for immunocompromised state. Neurological: Negative for dizziness, facial asymmetry and headaches. Hematological: Negative. Psychiatric/Behavioral: Negative. Objective: Pulse 82 Ht 5' 11 (1.803 m) Wt 260 lb (117.9 kg) BMI 36.26 kg/m?? Physical Exam Constitutional: He appears well-developed and well-nourished. He is active. HENT: Head: Normocephalic and atraumatic. Right Ear: Tympanic membrane, external ear and ear canal normal. Left Ear: Tympanic membrane, external ear and ear canal normal. Nose: Mucosal edema and rhinorrhea present. No nose lacerations, sinus tenderness, nasal deformity, septal deviation or nasal septal hematoma. No epistaxis. No foreign bodies. Mouth/Throat: Uvula is midline, oropharynx is clear and moist and mucous membranes are normal. Eyes: Conjunctivae and lids are normal. No scleral icterus. Neck: Trachea normal and phonation normal. Neck supple. No tracheal tenderness present. No tracheal deviation present. No thyroid mass and no thyromegaly present. Pulmonary/Chest: Effort normal. No stridor. No tachypnea. Lymphadenopathy: He has no cervical adenopathy. Neurological: He is alert. Skin: Skin is warm, dry and intact. No rash noted. EACs and TMs clear Assessment / Plan: Assessment No diagnosis found. Plan Patient's Medications Accurate as of 08/17/17 11:58 AM. Reflects encounter med changes as of last refresh Continued Medications Instructions aspirin 81 mg EC tablet Commonly known as: ECOTRIN 81 mg, Oral, Daily atorvastatin calcium 10 mg tablet Commonly known as: LIPITOR 10 mg, Oral, Daily CENTRUM SILVER PO Oral cyclobenzaprine 10 mg tablet Commonly known as: FLEXERIL 10 mg, Oral, 3 times a day as needed flecainide acetate 50 mg tablet Commonly known as: TAMBOCOR 50 mg, Oral, 2 times a day loratadine 10 MG tablet Commonly known as: CLARITIN 10 mg, Oral, Daily meloxicam 15 mg tablet Commonly known as: MOBIC 15 mg, Oral, Daily metoprolol succinate 50 mg 24 hr tablet Commonly known as: TOPROL-XL 50 mg, Oral, Daily VITAMIN C PO Oral No orders of the defined types were placed in this encounter. Risks, benefits, and alternatives of the medications and treatment plan prescribed today were discussed, and patient expressed understanding. Plan follow-up as discussed or as needed if any worsening symptoms or change in condition. documented in this encounter Plan of Treatment Upcoming Encounters Date Type Specialty Care Team Description 01/04/2022 Office Visit Urology Dayna White MD [address] [place], [place] [address] (Wo rk) documented as of this encounter Visit Diagnoses Diagnosis Sensorineural hearing loss, bilateral - Primary Tinnitus of both ears Unspecified tinnitus Seasonal allergic rhinitis due to pollen documented in this encounter Care Teams Services Delivery Driver Relationship Specialty Start Date End Date Chetna Loredo MD PCP - General Family Medicine 08/17/17 06/27/18 [address] [place] [address] Pascual Benoit MD Otolaryngology 08/17/17 [address] [place] [address] documented as of this encounter
--- OUTSIDE RECORDS SUMMARY | 2021-11-30 11:53 | XMS_ITS | Encounter Summary ---
:1955 Author Organization [facility] [place] [address] Care Team Providers Name Role Phone Pascual Benoit MD Unavailable Neal Breen MD Primary Care Provider Shell Freeman Unavailable Encounter Details Date Type Department Care Team Description 12/31/2020 Travel Social History Tobacco Use Types Packs/Day [...] 01/04/2022 Office Visit Urology Dayna White MD [address] [place] [address] [place], [place] [address] (Wo rk) documented as of this encounter Visit Diagnoses Not on filedocumented in this encounter Care Teams Senior Consultant Relationship Specialty Start Date End Date Neal Breen MD PCP - General Family Medicine 01/21/19 Pascual Benoit MD Otolaryngology 08/17/17 [address] [place] [address] Shell Freeman PA Physician Cork Slabs Sawyer Physician Cork Slabs Sawyer 01/21/[address] [place] [address] [place] [address] documented as of this encounter
--- OUTSIDE RECORDS SUMMARY | 2021-11-30 11:53 | XMS_ITS | Encounter Summary ---
:1955 Author Organization [facility] [place] [address] Care Team Providers Name Role Phone Chetna Loredo MD Primary Care Provider [phone] Pascual Benoit MD Unavailable Reason for Visit Reason Comments Back Pain on going problem Encounter Details Date Type Department Care Team Description 04/16/2018 Office Visit [facility] alex[facility] train, initial Care - STANLEY London III encounter (Primary Dx) [address] [facility] [address] [facility] [id number] [place], [place] [phone] Social History Tobacco Use Types Packs/Day Years Used Date Former Smoker Smokeless Tobacco: Never Used Sex Assigned at Date Recorded Not on file documented as of this encounter Last Filed Vital Signs Vital Sign Reading Time Taken Comments Blood Pressure 124/80 04/16/2018 2:59 PM EST Pulse 57 04/16/2018 2:59 PM EST Temperature 37.1 ??C (98.7 ??F) 04/16/2018 2:59 PM EST Respiratory Rate 16 04/16/2018 2:59 PM EST Oxygen Saturation 97% 04/16/2018 2:59 PM EST Inhaled Oxygen Concentration - - Weight 117.9 kg (260 lb) 04/16/2018 2:59 PM EST Height - - Body Mass Index 36.26 08/17/2017 11:00 AM EDT documented in this encounter Patient Instructions Patient InstructionsSTANLEY Babin III - 04/16/2018 3:12 PM EST Images from the original note were not included. Back Sprain or Strain Injury to the muscles (strain) or ligaments (sprain) around the spine can??be troubling. Injury may occur after a sudden forceful twisting or bending force such as in a car accident, after a simple awkward movement, or after lifting something heavy with poor body positioning. In??any case, muscle spasm is often present and adds to the pain. Thankfully, most people feel better in 1 to 2 weeks, and most of the rest in 1 to 2 months. Most people can remain active. Unless you had a forceful or traumatic physical injury such as??a car accidentor fall, X-rays may not be ordered for the first evaluation of a back sprain or strain. If pain continues and does not respond to medical treatment, your healthcare provider may then order X-rays and other tests. Home care The following guidelines will help you care for your injury at home: ?? When in bed, try to find a comfortable position. A firm mattress is best. Try lying flat on your back with pillows under your knees. You can also try lying on your side with your knees bent up toward your chest and a pillow between your knees. ?? Don't sit for long periods. Try not to take long car rides or take other trips that have you sitting for a long time. This puts more stress on the lower back than standing or walking. ?? During the first 24 to 72 hours after an injury or flare-up, apply an ice pack to the painful area for 20 minutes. Then remove it for 20 minutes. Do this for??60 to 90 minutes, or several times a day. This will reduce swelling and pain. Be sure to wrap the ice pack in a thin towel or plastic to protect your skin. ?? You can start with ice, then switch to??heat. Heat from a hot shower, hot bath, or heating pad reduces pain and works well for muscle spasms. Put heat on the painful area for 20 minutes, then removefor 20 minutes.??Do this for 60??to 90 minutes, or several times a day. Do not use a heating pad while sleeping. It can burn the skin. ?? You can alternate the??ice and heat. Talk with your healthcare provider to find out the best treatment or therapy for your back pain. ?? Therapeutic massage will help relax the back muscles without stretching them. ?? Be aware of safe lifting methods. Do not lift anything over 15 pounds until all of the pain is gone. Medicines Talk to your healthcare provider before using medicines, especially if you have other health problems or are taking other medicines. ?? You may use acetaminophen or ibuprofen to control pain, unless another pain medicine was prescribed. If you have chronic conditions like diabetes, liver or kidney disease, stomach ulcers, or gastrointestinal bleeding, or are taking blood-thinner medicines, talk with your doctor before taking any medicines. ?? Be careful if you are given prescription medicines, narcotics, or medicine for muscle spasm. Theycan cause drowsiness, and affect your coordination, reflexes, and judgment. Do not drive or operate heavy machinery when taking these types of medicines. Only take pain medicine as prescribed by your [facility] provider. Follow-up care Follow up with your healthcare provider, or as advised. You may need physical therapy or more tests??if your symptoms get worse. If you had X-rays your healthcare provider may be checking for any broken bones, breaks, or fractures. Bruises and sprains can sometimes hurt as much as a fracture. These injuries can take time to healcompletely. If your symptoms don???t improve or they get worse, talk with your healthcare provider. You may need a repeat X-ray or other tests. Call 911 Call 911 if any of the following occur: ?? Trouble breathing ?? Confused ?? Very drowsy or trouble awakening ?? Fainting or loss of consciousness ?? Rapid or very slow heart rate ?? Loss of bowel or bladder control When to seek medical advice Call your healthcare provider right away if any of the following occur: ?? Pain gets worse or spreads to your arms or legs ?? Weakness or numbness in one or both arms or legs ?? Numbness in the groin or genital area Date Last Reviewed: 09/16/2015 ?? [id number] [employer]. [address] [place] [address], [place] [address]. All rights reserved. This information is not intended as a substitute for professional medical care. Always follow your healthcare professional's instructions. documented in this encounter Progress Notes STANLEY Babin III - 04/17/2018 4:14 PM EST Subjective: Back Pain: Dario Mckeon is a 62 y.o. male who presents for evaluation of back pain. The patient hashad recurrent self limited episodes of low back pain in the past. Symptoms have been present for 5 days and are unchanged. Onset was related to / precipitated by a twisting movement. The pain is located in the left lumbar area and does not radiate. The pain is described as aching and occurs all day. He rates his pain as a 5 on a scale of 0-10. Symptoms are exacerbated by flexion and twisting.. Dario has tried NSAIDs which provided no symptom relief. Dario has no other symptoms associated with the back pain. The patient has no red flag history indicative of complicated back pain. The following portions of the patient's history were reviewed and updated as appropriate: allergies,current medications, past family history, past medical history, past social history, past surgical history and problem list. Review of Systems Review of Systems - All systems reviewed and are negative except what is noted in the HPI. Objective: Vitals: 04/16/18 1459 BP: 124/80 Pulse: 57 Resp: 16 Temp: 98.7 ??F (37.1 ??C) SpO2: 97% General: Well Developed, Well Nourished, No distress CV: RRR without MGR Lungs: CTA with normal effort Back: Full range of motion with pain during flexion, ttp to left lower lumbar paraspinal muscles, nospasm, no curvature. Normal reflexes, gait, strength and negative straight-leg raise. Imaging: No images are attached to the encounter or orders placed in the encounter. Assessment: 1. Back strain, initial encounter Plan: 1. Medications and orders: No orders of the defined types were placed in this encounter. Outpatient Encounter Prescriptions as of 04/16/2018 Medication Sig Dispense Refill ??? Ascorbic Acid (VITAMIN C PO) Take by mouth. ??? aspirin (ASPIRIN) 81 mg EC tablet Take 81 mg by mouth daily. ??? atorvastatin calcium (LIPITOR) 10 mg tablet Take 10 mg by mouth daily. ??? flecainide acetate (TAMBOCOR) 50 mg tablet Take 50 mg by mouth 2 (two) times daily. ??? fluticasone propionate (FLONASE) 50 mcg/actuation nasal spray two sprays by Nasal route daily. 16 g 12 ??? loratadine (CLARITIN) 10 MG tablet Take 10 mg by mouth daily. ??? meloxicam (MOBIC) 15 mg tablet Take 15 mg by mouth daily. ??? metoprolol succinate (TOPROL-XL) 50 mg 24 hr tablet Take 50 mg by mouth daily. ??? Multiple Vitamins-Minerals (CENTRUM SILVER PO) Take by mouth. ??? [DISCONTINUED] cyclobenzaprine (FLEXERIL) 10 mg tablet Take 10 mg by mouth 3 (three) times a dayas needed for Muscle spasms. ??? cyclobenzaprine (FLEXERIL) 10 mg tablet Take one tablet (10 mg total) by mouth 3 (three) times aday as needed. 30 tablet 0 ??? predniSONE (DELTASONE) 20 mg tablet Take 3 tablets once daily x 3 days;then take 2 tablets once daily x 3 days;then take 1 tablet once daily x 3 days; Take with food in morning 18 tablet 0 No facility-administered encounter medications on file as of 04/16/2018. 2. Natural history and expected course discussed. Questions answered. Proper lifting, bending technique discussed. Short (2-4 day) period of relative rest recommended until acute symptoms improve. Muscle relaxants per medication orders. 3. Advised patient to follow up with their PCP this week or if symptoms worsen return here or go to the emergency department for evaluation. Previsit planning was completed via snapshot and review of chart. Patient verbalized to me that they understood what their problem is, what they need to do about it, and why it is important that they do it. The patient voices understanding of all medications. No barriers to adherence were noted. Patient istaking all medications as prescribed and is tolerating well. Plan for follow-up as discussed or as needed if any worsening symptoms or change in condition. After Visit Summary was given to patient. documented in this encounter Plan of Treatment Upcoming Encounters Date Type Specialty Care Team Description 01/04/2022 Office Visit UrologDayna Cash MD [address] [place] [phone] ([place]) documented as of this encounter Visit Diagnoses Diagnosis Back strain, initial encounter - Primary documented in this encounter Care Teams General Helper Relationship Specialty Start Date End Date Chetna Loredo MD PCP - General Family Medicine 08/17/17 06/27/18 [address] [place] [phone] Pascual Benoit MD Otolaryngology 08/17/17 [address] [facility] [place] [address] documented as of this encounter
--- OUTSIDE RECORDS SUMMARY | 2021-11-30 11:53 | XMS_ITS | Encounter Summary ---
:1955 Author Organization [facility] [place] [address] Care Team Providers Name Role Phone Pascual Benoit MD Unavailable Neal Breen MD Primary Care Provider Shell Freeman Unavailable Encounter Details Date Type Department Care Team Description 01/31/2019 Travel Social History Tobacco Use Types Packs/Day Years Used Date Former Smoker Smokeless Tobacco: Never Used Sex Assigned at Date Recorded Not on file documented as of this encounter Plan of Treatment Upcoming Encounters Date Type Specialty Care Team Description 01/04/2022 Office Visit Urology Dayna White MD [address] [place] [address] [place], [place] [address] (Wo rk) documented as of this encounter Visit Diagnoses Not on filedocumented in this encounter Care Teams Net Developer Programmer Relationship Specialty Start Date End Date Neal Breen MD PCP - General Family Medicine 01/21/19 Pascual Benoit MD Otolaryngology 08/17/17 [address] [facility] [place] [address] Shell Freeman PA Physician Feed Inspection Supervisor Physician Feed Inspection Supervisor 01/21/[address] [place] [address] [place] [address] documented as of this encounter
--- OUTSIDE RECORDS SUMMARY | 2021-11-30 11:53 | XMS_ITS | Encounter Summary ---
:1955 Author Organization [facility] [place] [address] Care Team Providers Name Role Phone Pascual Benoit MD Unavailable Neal Breen MD Primary Care Provider Shell Freeman Unavailable Encounter Details Date Type Department Care Team Description 10/24/2019 Travel Social History Tobacco Use Types Packs/Day [...] 01/04/2022 Office Visit Urology Dayna White MD [address] [place] [address] [place], [place] [address] (Wo rk) documented as of this encounter Visit Diagnoses Not on filedocumented in this encounter Care Teams Soa Architect Relationship Specialty Start Date End Date Neal Breen MD PCP - General Family Medicine 01/21/19 Pascual Benoit MD Otolaryngology 08/17/17 1213 [place] [address] Shell Freeman PA Physician Merchandising Internship Physician Merchandising Internship 01/21/[address] [place] [address] [place] [address] documented as of this encounter
--- OUTSIDE RECORDS SUMMARY | 2021-11-30 11:53 | XMS_ITS | Encounter Summary ---
:1955 Author Organization [facility] [place] [address] Care Team Providers Name Role Phone Pascual Benoit MD Unavailable Neal Breen MD Primary Care Provider Shell Freeman Unavailable Reason for Visit Reason Comments Penis Pain Encounter Details Date Type Department Care Team Description 04/02/2019 Office Visit [facility] Radha Olmstead is (Primary Dx); [facility] Tasha, INSURANCE SALES ASSISTANT 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; ([place]) [facility] Benign prostatic hyperplasia with urinary frequency; [address] [facility] [address] Penile pain; Dr [address] [place] [address] [place] [address] Social History Tobacco Use Types Packs/Day Years Used Date Former Smoker Smokeless Tobacco: Never Used Sex Assigned at Date Recorded Not on file documented as of this encounter Last Filed Vital Signs Vital Sign Reading Time Taken Comments Blood Pressure 127/78 04/02/2019 11:03 AM EST Pulse 68 04/02/2019 11:03 AM EST Temperature 36.5 ??C (97.7 ??F) 04/02/2019 11:03 AM EST Respiratory Rate - - Oxygen Saturation - - Inhaled Oxygen Concentration - - Weight 107 kg (236 lb) 04/02/2019 11:03 AM EST Height 180.3 cm (5' 11) 04/02/2019 11:03 AM EST Body Mass Index 32.92 04/02/2019 11:03 AM EST documented in this encounter Progress Notes Radha Olmstead NP - 04/02/2019 10:54 AM EST Images from the original note were not included. Subjective: Patient ID: Dario Mckeon is a 63 y.o. ( 1955) male. HPI This is a 63-year-old male who is status post cystoscopy with DVIU [place] [facility]. It was performed for definitive management of a bulbar stricture and irritative voiding symptoms of dysuria and urgency. Per Dr. Ndiaye operative note he was found to have a strictured area at the 12 o'clock position measuring less than 1 cm in length. He also was noted to have a minimally obstructing prostate and 2+ trabeculations secondary to this bladder outlet obstruction. 20 Tamazight indwelling Blanco catheter was placed and he was instructed to leave in place 5 to 7 days. Unfortunately he presents today with urgent unscheduled visit for complaints of penile pain and swelling which is rapidly increased over the past 48 hours. It is associated with pain at end of penis where Blanco catheter is present. After foreskin was returned to normal position and Blanco catheter was removed patient was asked to redress. Unfortunately at this time he began to experience dizziness, lightheadedness, and diaphoresis. Head was lowered and legs were raised. He was given soda and wet packs were applied to his forehead. Blood pressure was checked and found to be 75/55. After approximately 3 minutes it was rechecked. Blood pressure increased to 106/75. After approximately 5 minutes blood pressure returned to normal at122/87. He felt much improved therefore was able to return to regular activities Reviewed and updated this visit by provider: Tobacco Allergies Meds Problems Med Hx SE Hx Surg Hx Fam Hx Review of Systems Constitutional: Negative for chills, diaphoresis, fatigue and fever. Gastrointestinal: Negative for abdominal pain, constipation, diarrhea, nausea and vomiting. Genitourinary: Positive for dysuria, penile pain (burnig) and penile swelling. Negative for difficulty urinating, flank pain, frequency, hematuria, testicular pain and urgency. Musculoskeletal: Negative for back pain. All other systems reviewed and are negative. Objective: Vitals: 04/02/19 1103 BP: 127/78 Pulse: 68 Temp: 97.7 ??F (36.5 ??C) TempSrc: Oral Height: 5' 11 (1.803 m) Weight: 236 lb (107 kg) BMI (Calculated): 32.9 PainSc: 4 Physical Exam Vitals signs and nursing note [...] no abdominal tenderness. There is no rebound. Genitourinary: Skin: General: Skin is warm and dry. Findings: No rash. Neurological: Mental Status: He is alert and oriented to person, place, and time. Coordination: Coordination normal. Psychiatric: Behavior: Behavior normal. No urinalysis was obtained as indwelling Blanco catheter was in place Procedure: Penile edema was present. Pressure was applied to reduce swelling and foreskin was returned to normal position. 10 mL of sterile water was extracted from Blanco catheter balloon and Blanco catheter was removed. Neosporin was applied to urinary meatus Assessment / Plan: Assessment 1. Paraphimosis 2. 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 Benign prostatic hyperplasia with urinary frequency 4. Penile pain 5. Vasovagal episode Plan Patient was instructed to increase fluids and contact office today to let us know that he is voidingwell Follow-up in 2 weeks for postop visit, PRN if needed sooner Continue with antibiotic ointment to glans and meatus as needed The patient was able to repeat back how to take and/or apply the prescribed medication(s). Patient's Medications Accurate as of April 02, 2019 1:02 PM. 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
--- OUTSIDE RECORDS SUMMARY | 2021-11-30 11:53 | XMS_ITS | Encounter Summary ---
:1955 Author Organization [facility] [place] [place] [address] Care Team Providers Name Role Phone Chetna Loredo Primary Care Provider Unavailable Reason for Visit Reason Comments Injections Synvisc injection bilateral knee 3/3 Medication (Routine) - Closed Specialty Diagnoses / Procedures Referred By Contact Refer red To Contact Pharmacy Diagnoses Primary osteoarthritis of both knees Dmcp1 02 Orthopedics- [facility] [address] [address] Phone: [phone] Referral ID Status Reason Start Expiration Visits Visits Date Date Requested Authorized [id number] Closed Medication 04/25/2016 04/25/2017 3 3 authorization Encounter Details Date Type Department Care Team Description 06/02/2016 Clinical Support Orthopaedics - Nasir Abrams, Primary osteoarthritis [address] [place] [address] [address] PA-C of both knees (Primary [address] 801 Dx) [address] [place] [phone] [place] [address] Social History Tobacco Use Types Packs/Day Years [...] encounter Progress Notes Nasir Vega PA-C - 06/02/2016 1:40 PM EST Mike Bishop 60 y.o. male Chief Complaint: Knee Arthritis HPI: Patient Presents For bilateral Knee 3 Of 3 Synvisc Injections Patient [...] all patient questions concerning medication Patient Given bilateral Knee Synvisc Injection. With .5 cc kenalog each knee The patient should avoid exercise for two days following the injection. Observe for signs of infection, call if any redness,warmth, swelling or increased pain Application ice, 10 - 15 minutes -once or twice today, once or twice tomorrow. Call if any change in symptoms Follow up as planned 1. Primary osteoarthritis of both knees Electronically signed by: Nasir Vega PA-C 06/02/16 1427 documented in this encounter Plan of Treatment Not on filedocumented as of this encounter Visit Diagnoses Diagnosis Primary osteoarthritis of both knees - P rimary documented in this encounter Administered Medications Inactive Administered Medications - up to 3 most recent administrations Medication Order MAR Action Action Date Dose Rate Site hylan (SYNVISC) injection 16 mg Given 06/02/2016 1:58 PM EST 16 mg 16 mg Once, Intra-articular, On Re 06/02/16 at 1445, For 1 dose hylan (SYNVISC) injection 16 mg Given 06/02/2016 1:58 PM EST 16 mg 16 mg Once, Intra-articular, On Re 06/02/16 at 1445, For 1 dose triamcinolone acetonide (KENALOG-40) 40 mg/mL Given 1:59 PM EST 40 mg injection 40 mg 40 mg Once, Intra-articular, On Re 06/02/16 at 1445, For 1 dose documented in this encounter Care Teams Wrap Turner Relationship Specialty Start Date End Date Chetna Loredo PCP - General Family Medicine 05/19/16 04/13/18 documented as of this encounter
--- OUTSIDE RECORDS SUMMARY | 2021-11-30 11:53 | XMS_ITS | Encounter Summary ---
:1955 Author Organization [facility] [place] [address] Care Team Providers Name Role Phone Pcp, Patient Does Not Have Primary Care Provider [phone] Chetna Loredo Primary Care Provider Unavailable Reason for Visit Reason Onset Date Comments miguel angel-sooner appt 03/16/2016 Encounter Details Date Type Department Care Team Description 03/16/2016 Telephone Orthopaedics - Nasir Abrams PA-C miguel nagel-sooner appt 329 [facility] [address] [place] [address] [phone] [place] [address] (Wo rk) Social History Tobacco Use Types [...] on file documented as of this encounter Miscellaneous Notes Telephone Encounter - Kristel Lamas Parris - 03/21/2016 12:27 PM EST Pt returning call. Provided directive from 03.16.16. I was unable to find anything sooner. I added the pt to the wait list. Telephone Encounter - Kate Og RN - 03/21/2016 9:56 AM EST Phone call to patient, no answer. Left message for callback. Telephone Encounter - Radha Barrett CMA - 03/18/2016 4:23 PM EST Attempted to call patient. No answer. Please make patient aware of note below if he calls back. I can also inform patient. Thanks. Electronically signed by: Radha Barrett CMA 03/18/16 1623 Telephone Encounter - Lyly Ferreira - 03/18/2016 4:06 PM EST Patient calling back to speak with nurse regarding sooner appt Telephone Encounter - Radha Barrett CMA - 03/18/2016 1:52 PM EST Attempted to call patient. No answer. Left generic voicemail. Electronically signed by: Radha Barrett CMA 03/18/16 1353 Telephone Encounter - Radha Barrett CMA - 03/17/2016 9:35 AM EST Attempted to call patient. No answer. Electronically signed by: Radha Barrett CMA 03/17/16 0935 Telephone Encounter - Radha Barrett CMA - 03/16/2016 12:52 PM EST Attempted to call patient. No answer. If patient calls back, please inform patient that Nasir does not have a sooner appointment available. Please offer an appointment with a provider that has a soonerappointment. If we do not have anything available please inform patient to go to primary care physician and/or local urgent care if pain is severe. Thanks. Electronically signed by: Radha Barrett CMA 03/16/16 1255 Telephone Encounter - Desi Granger - 03/16/2016 9:17 AM EST Pt states he is in severe pain and is requesting a sooner appointment.Please advise. documented in this encounter Plan of Treatment Not on filedocumented as of this encounter Visit Diagnoses Not on filedocumented in this encounter Care Teams Command And Control Systems Integrator Relationship Specialty Start Date End Date Pcp, Patient Does Not Have PCP - General 01/31/16 05/18/16 Chetna Loredo PCP - General Family Medicine 05/19/16 04/13/18 documented as of this encounter
--- OUTSIDE RECORDS SUMMARY | 2021-11-30 11:53 | XMS_ITS | Encounter Summary ---
:1955 Author Organization [facility] [place] [address] Care Team Providers Name Role Phone Pcp, Patient Does Not Have Primary Care Provider [phone] Encounter Details Date Type Department Care Team Description 04/25/2016 Hospital Encounter Diagnostic Imaging - Nasir Vega PA-C [facility] [address] 801 329 [facility] [address] [place], [place] [address] [place], [place] [phone] [id number] (Wo rk) Social History Tobacco Use Types [...] mouth daily. traMADol (ULTRAM) 50 mg Take 50 mg by 0 6 11/01/2016 tablet mouth every 6 (six) hours as needed. documented as of this encounter Plan of Treatment Not on filedocumented as of this encounter Procedures Procedure Name Priority Date/Time Associated Diagnosis Comme nts XR KNEES BILATERAL Routine 04/25/2016 10:44 AM Bilateral chron ic Results for this EST knee pain procedure are i n the results section. documented in this encounter Results XR KNEES BILATERAL (04/25/2016 10:44 AM EST) Anatomical Region Laterality Modality Thigh, Knee, Leg Digital Radiography Specimen (Source) Anatomical Collection Method Collection Time Re ceived Time Location / / Volume Laterality 04/25/2016 10:46 AM EST Impressions 04/25/2016 11:44 AM EST Right knee: 1. ??No acute fracture or malalignment. 2. ??Small joint effusion. 3. ??Mild lateral, moderate medial and p atellofemoral compartment degenerative changes. Left knee: 1. ??No acute fracture or malalignment. 2. ??Trace joint effusion. 3. ??Mild lateral, moderate medial and p atellofemoral compartment degenerative changes. Narrative 04/25/2016 11:44 AM EST X-RAY BOTH KNEES (3 VIEWS), 04/25/2016 10:44 AM INDICATION: ??painM25.561 Bilateral research animal attendant tania knee pain M25.562 Bilateral chronic knee pain G89.29 Bilateral chronic knee pain COMPARISON: None. Procedure Note Bryon Waggoner MD - 04/25/2016 X-RAY BOTH KNEES (3 VIEWS), 04/25/2016 10: 44 AM INDICATION: painM25.561 Bilateral chroni c knee pain M25.562 Bilateral chronic knee pain G89.29 Bilateral chronic knee pain COMPARISON: None. CONCLUSION: Right knee: 1. No acute fracture or malalignment. 2. Small joint effusion. 3. Mild lateral, moderate medial and pat ellofemoral compartment degenerative changes. Left knee: 1. No acute fracture or malalignment. 2. Trace joint effusion. 3. Mild lateral, moderate medial and pat ellofemoral compartment degenerative changes. Nasir [facility] ORDER MASOUD documented in this encounter Visit Diagnoses Diagnosis Bilateral chronic knee pain documented in this encounter Care Teams Obstetrical Tech Relationship Specialty Start Date End Date Pcp, Patient Does Not Have PCP - General 01/31/16 05/18/16 documented as of this encounter
--- OUTSIDE RECORDS SUMMARY | 2021-11-30 11:53 | XMS_ITS | Encounter Summary ---
:1955 Author Organization [facility] [place] [address] Care Team Providers Name Role Phone Chetna Loredo Primary Care Provider Unavailable Reason for Visit Reason Comments Injections Synvisc injection bilateral knee 2/3 Medication (Routine) - Closed Specialty Diagnoses / Procedures Referred By Contact Refer red To Contact Pharmacy Diagnoses Primary osteoarthritis of both knees [id number] 02 Orthopedics- [facility] [address] [address] Phone: [phone] Referral ID Status Reason Start Expiration Visits Visits Date Date Requested Authorized [id number] Closed Medication 04/25/2016 04/25/2017 3 3 authorization Encounter Details Date Type Department Care Team Description 05/26/2016 Clinical Support Orthopaedics - Nasir Abrams, Primary osteoarthritis [address] [place] [address] 801 N PA-C of both knees (Primary [address] 801 Dx) [address] [place] [phone] [place] [address] Social History Tobacco Use Types Packs/Day Years [...] encounter Progress Notes Nasir Vega PA-C - 05/26/2016 8:20 AM EST Mike Bishop 60 y.o. male Chief Complaint: Knee Arthritis HPI: Patient Presents For bilateral Knee 2 Of 3 Synvisc Injections Patient [...] medication Patient Given bilateral Knee Synvisc Injection. The patient should avoid exercise for two days following the injection. Observe for signs of infection, call if any redness,warmth, swelling or increased pain Application ice, 10 - 15 minutes -once or twice today, once or twice tomorrow. Call if any change in symptoms Follow up as planned 1. Primary osteoarthritis of both knees Electronically signed by: Nasir Vega PA-C 05/26/16900 documented in this encounter Plan of Treatment Not on filedocumented as of this encounter Visit Diagnoses Diagnosis Primary osteoarthritis of both knees - P rimary documented in this encounter Administered Medications Inactive Administered Medications - up to 3 most recent administrations Medication Order MAR Action Action Date Dose Rate Site hylan (SYNVISC) injection 16 mg Given 05/26/2016 8:59 AM EST 16 mg 16 mg Weekly, Intra-articular, First dose on Re 05/26/16 at 0930, For 3 doses hylan (SYNVISC) injection 16 mg Given 05/26/2016 8:59 AM EST 16 mg 16 mg Weekly, Intra-articular, First dose on Re 05/26/16 at 0930, For 3 doses documented in this encounter Care Teams Search Consultant Relationship Specialty Start Date End Date Chetna Loredo PCP - General Family Medicine 05/19/16 04/13/18 documented as of this encounter
--- OUTSIDE RECORDS SUMMARY | 2021-11-30 11:53 | XMS_ITS | Encounter Summary ---
:1955 Author Organization [facility] [place] [address] Care Team Providers Name Role Phone Pcp, Patient Does Not Have Primary Care Provider [phone] Reason for Visit Reason Comments Bilateral Knee Problem -Evaluate Bilateral knee delvin n Encounter Details Date Type Department Care Team Description 04/25/2016 Initial consult Orthopaedics - Nasir Abrams, Bilateral chronic knee pain (Primary Dx); [address] PA-C Primary osteoarthritis of both knees [place] [address] [place] [address] 801 [place] [address] Social History Tobacco Use Types Packs/Day Years [...] encounter Progress Notes Nasir Vega PA-C - 04/25/2016 10:20 AM EST Mr. Dario Mckeon [id number] 1955 (age: 60 y.o.) Return Visit Referred by: Chetna Lored[place] [address] Chief Complaint: Chief Complaint Patient presents with ??? Bilateral Knee Problem -Evaluate Bilateral knee pain History of Present Illness: HPI Comments: Bilateral osteoarthritis Knees Prior successful course of viscosupplmentation - [place] of state a [place] ago Told he need bilateral knee replacements - left knee worse than right No new injuries Past Medical History Diagnosis Date ??? Hyperlipemia ??? Ruptured appendix ??? Tachycardia Past Surgical History Procedure Laterality Date ??? Appendectomy Social History Social History ??? Marital status: [...] mg by mouth every 12 hours. ??? metoPROLOL tartrate (LOPRESSOR) 50 MG tablet Take 50 mg by mouth 2 times daily. ??? multivitamin capsule Take 1 capsule by mouth daily. ??? loratadine (CLARITIN) 10 mg tablet Take 10 mg by mouth daily. ??? meloxicam (MOBIC) 7.5 MG tablet Take 7.5 mg by mouth daily. ??? traMADol (ULTRAM) 50 [...] note and vitals reviewed. Right Knee Exam Tenderness The patient is experiencing tenderness in the medial joint line and patella. Range of Motion Extension: abnormal Other Sensation: normal Pulse: present Left Knee Exam Tenderness The patient is experiencing tenderness in the medial joint line and patella. Range of Motion Extension: abnormal Alignment neutral Other Sensation: normal Vitals: Vitals: 04/25/16 1024 PainSc: 3-Three (mild) Special Investigations- Review of Diagnostic Tests: Radiologic Studies: I have personally reviewed plain x-ray images from [facility]. Advanced degenerative changes both knees/medial compartments Lab Studies: I have not reviewed any lab test results for this patient. Assessment: 1. Bilateral chronic knee pain XR KNEES BILATERAL 2. Primary osteoarthritis of both knees Plan: 1. Sterile prep/conssent/ time out steroid injection left knee 2. Ice/rest/observe for signs of infection 3. Ordered bilateral synvisc 4. Discussed joint arthroplasty Follow up: No Follow-up on file. Orders Placed This Encounter Procedures ??? XR KNEES BILATERAL Electronically signed by: Nasir Vega PA-C 04/25/2016 10:56 AM Electronically signed by: Nasir Vega PA-C 04/25/16 1343 documented in this encounter Plan of Treatment Not on filedocumented as of this encounter Results XR KNEES BILATERAL (04/25/2016 [...] VIEWS), 04/25/2016 10:44 AM INDICATION: ??painM25.561 Bilateral marine engine mechanic tania knee pain M25.562 Bilateral chronic knee [...] and pat ellofemoral compartment degenerative changes. Nasir Vega PA-C [facility] ORDER MASOUD documented in this encounter Visit Diagnoses Diagnosis Bilateral chronic knee pain - Primary Primary osteoarthritis of both knees Bilateral chronic knee pain documented in this encounter Administered Medications Inactive Administered Medications - up to 3 most recent administrations Medication Order MAR Action Action Date Dose Rate Site triamcinolone acetonide Given 04/25/2016 1:42 PM EST 40 mg (KENALOG-40) 40 mg/mL injection 40 mg 40 mg Once, Intra-articular, On 04/25/16 at 1430, For 1 dose documented in this encounter Care Teams Break Up Worker Relationship Specialty Start Date End Date Pcp, Patient Does Not Have PCP - General 01/31/16 05/18/16 documented as of this encounter
--- OUTSIDE RECORDS SUMMARY | 2021-11-30 11:53 | XMS_ITS | Encounter Summary ---
:1955 Author Organization [facility] [place] [place] [address] Care Team Providers Name Role Phone Pascual Benoit MD Unavailable Neal Breen MD Primary Care Provider Shell Freeman Unavailable Encounter Details Date Type Department Care Team Description 12/01/2020 Ancillary Procedure [facility] Dominick Garcia Urology ([place]) MD Nito [address] [place] [address] Dr Mckenna [address] [place], [place] [address] [address] [place] [address] (Wo [place]) Social History Tobacco Use Types Packs/Day Years Used Date Former Smoker Smokeless Tobacco: Never Used Sex Assigned at Date Recorded Not on file COVID-19 Exposure Response Date Recorded In the last month, have you been in contact with No / Unsure 12/01/2020 10:02 AM EDT someone who was confirmed or suspected to have Coronavirus / COVID-19? documented as of this encounter Plan of Treatment Upcoming Encounters Date Type Specialty Care Team Description 01/04/2022 Office Visit Urology Dayna White MD [address] [place] [address] [address]in [address] [place], [place] [address] (Wo rk) documented as of this encounter Procedures Procedure Name Priority Date/Time Associated Diagnosis Comme nts XR ABDOMEN AP Routine 12/01/2020 10:25 AM Renal calculi Result s for this EDT procedure are i n the results section . documented in this encounter Results XR Abdomen Ap (12/01/2020 10:25 AM EDT) Anatomical Region Laterality Modality Abdomen Computed Radiography Specimen (Source) Anatomical Location Collection Method / Collectio n Time Received Time / Laterality Volume Impressions 12/01/2020 10:16 AM EDT Study was ordered and performed in clinic. It was interpreted by ordering provider. Please see office note dated 12/01/2020 for results Jose White MD [facility] ORDER MASOUD documented in this encounter Visit Diagnoses Not on filedocumented in this encounter Care Teams Lawn Technician Relationship Specialty Start Date End Date Neal Breen MD PCP - General Family Medicine 01/21/19 Pascual Benoit MD Otolaryngology 08/17/17 [address] [place] [address] Shell Freeman PA Physician Generation Engineering Technologist Physician Generation Engineering Technologist 01/21/[address] [facility] [place] [address] documented as of this encounter
--- OUTSIDE RECORDS SUMMARY | 2021-11-30 11:53 | XMS_ITS | Encounter Summary ---
:1955 Author Organization [facility] [address] Care Team Providers Name Role Phone Pcp, Patient Does Not Have Primary Care Provider [phone] Reason for Referral Medication (Routine) - Closed Specialty Diagnoses / Procedures Referred By Contact Refer red To Contact Pharmacy Diagnoses Primary osteoarthritis of both knees [id number] 02 [facility] [address] [address] Phone: [phone] Referral ID Status Reason Start Expiration Visits Visits Date Date Requested Authorized [id number] Closed Medication 04/25/2016 04/25/2017 3 3 authorization Scheduling Instructions Please indicate: Start of treatment: Sta rt Date YOLANDA Patient Name: Dario Mckeon [place] Ph one: Gender: male Cell : 1955 Work Phone: Address: [place] [address] Product Information: Synvisc 3 series Patient Diagnosis: M17.0 (Bilateral primary osteoarthritis of knee) Clinical Information: In which joint will the viscosupplement be used? both knees Has the patient had any sodium hyalurona te drug treatment in the past? Yes - Has it been less than six months since the last sodium hyaluronate injection in the SAME knee? No Date of last injection from prior series : What knee was treated: bilateral Was an NSAID used prior to Synvisc? Yes - (date): 03/17/16 Mobic Was a steroid used prior to Synvisc? Yes - (date): Left 1/9/17 & Right 07/17/2015 Allergies: -- Morphine -- Anaphylaxis (A LLERGY) -- Sulfamethoxazole -- Anaphylaxis (ALL ERGY) [employer] insurance? No Electronically signed by: Ann Beebe LPN 04/25/2016 11:08 AM Encounter Details Date Type Department Care Team Description 04/25/2016 Orders Only Orthopaedics - Ann Malcolm Primary osteoarthritis [address] Mandy Urbina LPN of both knees ([place] [address] [address] [facility] Dx) [phone] [place] [address] Social History Tobacco Use Types Packs/Day Years [...] Occu rrences Authorization Referral osteoarthritis of starting both knees 04/25/2016 unti l 04/25/2017 documented as of this encounter Visit Diagnoses Diagnosis Primary osteoarthritis of both knees - P rimary documented in this encounter Care Teams Endoscopy Registered Nurse Relationship Specialty Start Date End Date Pcp, Patient Does Not Have PCP - General 01/31/16 05/18/16 documented as of this encounter
--- OUTSIDE RECORDS SUMMARY | 2021-11-30 11:53 | XMS_ITS | Encounter Summary ---
:1955 Author Organization [facility] [place] [address] Care Team Providers Name Role Phone Chetna Loredo Primary Care Provider Unavailable Reason for Visit Reason Comments Injections Synvisc injection bilateral knee 1/ Medication (Routine) - Closed Specialty Diagnoses / Procedures Referred By Contact Refer red To Contact Pharmacy Diagnoses Primary osteoarthritis of both knees [id number] 02 Orthopedics- [facility] [address] [address] Phone: [phone] Referral ID Status Reason Start Expiration Visits Visits Date Date Requested Authorized [id number] Closed Medication 04/25/2016 04/25/2017 3 3 authorization Encounter Details Date Type Department Care Team Description 05/19/2016 Clinical Support Orthopaedics - Nasir Abrams, Primary osteoarthritis [address] [place] [address] 801 [address] PA-C of both knees (Primary [address] 801 Dx) [address] [place] [phone] [place] [address] Social History Tobacco Use Types Packs/Day Years [...] encounter Progress Notes Nasir Vega PA-C - 05/19/2016 8:20 AM EST Mike Bishop 60 y.o. male Chief Complaint: Knee Arthritis HPI: Patient Presents For bilateral Knee 1 Of 3 Synvisc Injections Patient [...] knees Electronically signed by: Nasir Vega PA-C 05/19/16 0848 documented in this encounter Plan of Treatment Not on filedocumented as of this encounter Visit Diagnoses Diagnosis Primary osteoarthritis of both knees - P rimary documented in this encounter Administered Medications Inactive Administered Medications - up to 3 most recent administrations Medication Order MAR Action Action Date Dose Rate Site hylan (SYNVISC) injection 16 mg Given 05/19/2016 8:37 AM EST 16 mg 16 mg Weekly, Intra-articular, First dose on Re 05/19/16 at 0915, For 3 doses hylan (SYNVISC) injection 16 mg Given 05/19/2016 8:37 AM EST 16 mg 16 mg Weekly, Intra-articular, First dose on Re 05/19/16 at 0915, For 3 doses documented in this encounter Care Teams Skiver Sock Linings Relationship Specialty Start Date End Date Chetna Loredo PCP - General Family Medicine 05/19/16 04/13/18 documented as of this encounter
--- OUTSIDE RECORDS SUMMARY | 2021-11-30 11:53 | XMS_ITS | Encounter Summary ---
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; ([place]) [address] [facility] Acute midline low back pain without sciatica [address] [facility] [address] [place], [place] [phone] Social History Tobacco Use Types Packs/Day Years [...] Sign Reading Time Taken Comments Blood Pressure 99/71 12/01/2020 10:10 AM EDT Pulse 66 12/01/2020 10:10 AM EDT Temperature - - Respiratory Rate - - Oxygen Saturation - - Inhaled Oxygen Concentration - - Weight 111.1 kg (245 lb) 12/01/2020 10:10 AM EDT Height 179.1 cm (5' 10.5) 12/01/2020 10:10 AM EDT Body Mass Index 34.66 12/01/2020 10:10 AM EDT documented in this encounter Progress Notes Scarlett White MD - 12/01/2020 10:20 AM EDT Images from the original note were not included. Subjective Patient ID: Dario Mckeon is a 65 y.o. ( 1955) male Patient presents with ??? Nephrolithiasis HPI: Dario Mckeon presents today with complaints [...] prostate, kidney, or bladder cancer. CT at [facility] in 09/2020: Bilateral kidney stones, right hydroureteronephrosis down to the level of 2 3 mm stones. Main complaints today: Patient went to [facility] and had some flank and abdominal pain several weeks ago. History of 2 distal 3 mm stones. He comes in today for further evaluation and management. Pain today is 5/10. Pain can get up to a 10/10. Pain feels like squeezing pain. Aggravating factors: working around the house. Toradol seems to help He has NOT definitely passed his stones. Pain continues unfortunately. Pain can be bilateral. Reviewed and updated this visit by provider: Tobacco Allergies Meds Med Hx SE Hx Surg Hx Fam [...] and testicular pain. Musculoskeletal: Positive for back pain. Negative for arthralgias. Skin: Negative for color change. Neurological: Negative for dizziness, weakness and light-headedness. Psychiatric/Behavioral: Negative for agitation, behavioral problems and dysphoric mood. Objective Vitals: 12/01/20 1010 BP: 99/71 Pulse: 66 Height: 5' 10.5 (1.791 m) Weight: 245 lb (111.1 kg) BMI (Calculated): 34.6 PainSc: 5 Physical Exam Vitals and nursing note reviewed. [...] 24 hour(s)) POCT urinalysis dipstick Collection Time: 12/01/20 10:16 AM Result Value Ref Range Color Yellow Yellow, Straw, Dark yellow, Colorless, Bright yellow, Xantho, Comment, Pale Yellow Clarity Clear Clear, Slightly hazy Glucose,Urine Negative Negative mg/dL Bilirubin Negative Negative Ketones,Urine Negative (A) Negative mg/dL Specific [place] >=1.030 (A) 1.005 - 1.030 Blood Negative [...] structures are normal. I can see abnormal calcifications - bilateral stones in the kidneys largest about 3- 4mm, can't definitely see right ureteral stones. He does have phleboliths. CT from [facility] in 09/2020 Assessment and Plan 1. Renal calculi 2. 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 Acute midline low back pain without sciatica Discussed options for his stones. KUB today shows similar kidney stones. Possibly more calcifications in the bladder shadow. +history of urethral stricture. After considering these options, the patientwill like to proceed with cystoscopy possible s-curve dilation in the office with possible stone retrieval if in the bladder Should we be able to open channel and remove stones and back pain persists, may need referral to Dr Brito F/U KUB in 6 months Follow up for next available cysto with dilation and possible bladder stone retrieval. Patient's Medications Accurate as of December 01, 2020 10:20 AM. Reflects encounter med changes as of last refresh Continued Medications Instructions atorvastatin calcium 10 mg tablet Commonly known as: LIPITOR 10 mg, Oral, Daily buPROPion 100 mg 12 hr tablet Commonly known as: WELLBUTRIN SR 100 mg, Oral CENTRUM SILVER PO Take by mouth. donepezil HCl 10 mg tablet Commonly known [...] tablet Commonly known as: NAPROSYN 500 mg, 2 times a day ondansetron 4 mg disintegrating tablet Commonly known as: ZOFRAN-ODT SMARTSIG:By Mouth tamsulosin 0.4 mg Caps Commonly known as: FLOMAX 0.4 mg, Daily VITAMIN C PO Take by mouth. Discontinued Medications HYDROcodone-acetaminophen 5-325 mg per tablet Commonly known as: NORCO Stopped by: Scarlett White MD Orders Placed This Encounter Procedures ??? XR Abdomen Ap ??? POCT urinalysis dipstick Risks, benefits, and alternatives of the medications and treatment plan prescribed today were discussed, and patient expressed understanding. Plan follow-up as discussed or as needed if any worsening symptoms or change in condition. documented in this encounter Miscellaneous Notes Addendum Note - Scarlett White MD - 12/01/2020 11:28 AM EDT Addended by: SCARLETT WHITE on: 12/01/2020 11:28 AM Modules accepted: Orders documented in this encounter Plan of Treatment Upcoming Encounters Date Type Specialty Care Team Description 01/04/2022 Office Visit Urology Dayna White MD [address] [place] [phone] ([place]) documented as of this encounter Procedures Procedure Name Priority Date/Time Associated Comments Diagnosis XR ABDOMEN AP Routine 12/01/2020 10:25 AM Renal calculi Result s for this EDT procedure are i n the results section. POCT URINALYSIS Today 12/01/2020 10:16 AM Renal calculi Resu lts for this DIPSTICK EDT procedure are i n the results [...] see office note dated 12/01/2020 for results Scarlett White MD IMG DIAGNOSTIC IMAGING ORDER MASOUD (ABNORMAL) POCT urinalysis dipstick (12/01/2020 10:16 AM EDT) [facility] Method Time Signature Color Yellow Yellow, [facility] Straw, Dark UROLOGY yellow, ([place]) Colorless, Bright yellow, Xantho, Comment, Pale Yellow Clarity Clear Clear, [facility] Slightly UROLOGY hazy ([place]) Glucose,Urine Negative Negative [facility] mg/dL UROLOGY ([place]) Bilirubin Negative Negative [facility] UROLOGY ([place]) Ketones,Urine Negative (A) Negative [facility] mg/dL UROLOGY ([place]) Specific [place] >=1.030 (A) 1.005 - [facility] 1.030 UROLOGY ([place]) Blood Negative Negative [facility] UROLOGY ([place]) pH 5.0 5.0 - 9.0 [facility] ([place]) Protein Negative Negative [facility] mg/dL UROLOGY ([place]) Urobilinogen 0.2 0.2, 1.0 [facility] EU/dL UROLOGY ([place]) Nitrite Negative Negative [facility] ([place]) Leukocyte Negative Negative [facility] Esterase UROLOGY ([place]) Specimen (Source) Anatomical Collection Method Collection Time Re ceived Time Location / / Volume Laterality Urine 12/01/2020 10:16 AM EDT Scarlett White MD POINT OF CARE TEST ORDERABLE S Performing Organization Address City/State/ZIP Code Phon e Number [facility] [address] [place] [address] ([place]) Dr Andres documented in this encounter Visit Diagnoses Diagnosis Renal calculi - Primary Calculus of kidney 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 Acute midline low back pain without scia isabel documented in this encounter Care Teams Lye Bath Operator Relationship Specialty Start Date End Date Neal Breen MD PCP - General Family Medicine 01/21/19 Pascual Benoit MD Otolaryngology 08/17/[address] [place] [address] [place] [address] Shell Freeman PA Physician Account Planner Physician Account Planner 01/21/19 [address] [facility] [place] [address] documented as of this encounter
--- OUTSIDE RECORDS SUMMARY | 2021-11-30 11:53 | XMS_ITS | Encounter Summary ---
:1955 Author Organization [facility] [employer] Address Unavailable [place] [id number] Care Team Providers Name Role Phone Unavailable Primary Care Provider Unavailable Reason for Visit Reason Comments Animal Bite 5 days ago, right arm pain/s welling Encounter Details Date Type Department Care Team Description 01/09/2016 Office Visit [facility] Angelina Ferrer, BATTING MACHINE OPERATOR Dog bite of right Care - [place] [address] golden, initial [address] encounter ([place], [place]) [phone] ([place]o [place]) Social History Tobacco Use Types Packs/Day Years Used Date Never Smoker Sex Assigned at Date Recorded Not on file documented as of this encounter Last Filed Vital Signs Vital Sign Reading Time Taken Comments Blood Pressure 112/74 01/09/2016 1:00 PM EDT Pulse 59 01/09/2016 1:00 PM EDT Temperature 36.4 ??C (97.6 ??F) 01/09/2016 1:00 PM EDT Respiratory Rate 16 01/09/2016 1:00 PM EDT Oxygen Saturation 96% 01/09/2016 1:00 PM EDT Inhaled Oxygen Concentration - - Weight 121 kg (266 lb 12.8 oz) 01/09/2016 1:00 PM EDT Height 180.3 cm (5' 11) 01/09/2016 1:00 PM EDT Body Mass Index 37.21 01/09/2016 1:00 PM EDT documented in this encounter Patient Instructions Patient InstructionsPaulina Villanueva NP - 01/09/2016 1:27 PM EDT Images from the original note were not included. warm compresses several times a day OTC analgesics Go to the ED if you develop fever 100.4 or greater, increased redness or swelling, chest pain, shortness of breath, abd pain, nausea, vomiting Dog Bite A dog bite can cause a wound deep enough to break the skin. In such cases, the wound is cleaned and then closed. Sometimes, the wound is not closed completely. This is so that fluid can drain if the wound becomes infected. In addition to wound care, a tetanus shot may be given, if needed. Home Care ?? Wash your hands well with soap and warm water before and after caring for the wound. This helps lower the risk of infection. ?? Care for the wound as directed. If a dressing was applied to the wound, be sure to change it as directed. ?? If the wound bleeds, place a clean, soft cloth on the wound. Then firmly apply pressure until thebleeding stops. This may take up to 5 minutes. Do not release the pressure and look at the wound during this time. ?? Most wounds heal within??10 days. But an infection can occur even with proper treatment. So be sure to check the wound daily for signs of infection (see below). ?? Antibiotics may be prescribed. These help prevent or treat infection. If you???re given antibiotics, take them as directed. Also be sure to complete the medications. Rabies Prevention?? Rabies is a virus that can be carried in certain animals. These can include domestic animals such asdogs and cats. Pets fully vaccinated against rabies (2 shots) are at very low risk of infection. Butbecause human rabies is almost always fatal,??any biting pet should be confined for??10 days as an extra precaution. In general, if there is a risk for rabies, the following steps may need to be taken: ?? If someone???s pet dog has bitten you, it should be kept in a secure area for the next 10 days towatch for signs of illness. (If the pet locomotive repairer diesel won???t allow this, contact your local animal control center.) If the dog becomes ill or dies during that time, contact your local animal control center atonce so the animal may be tested for rabies. If the dog stays healthy for the next??10 days, there is no danger of rabies in the animal or you. ?? If a??stray dog bit you, contact your local animal control center. They can give information on capture, quarantine, and animal rabies testing. ?? If you can???t locate the animal that bit you in the next??2 days, and if rabies exists in your region, you may need to receive the rabies vaccine series. Call your health care provider right away. Or, return to the emergency department promptly. ?? All animal bites should be reported to the local animal control center. If you were not given a form to fill out, you can report this yourself. Follow-up care Follow up with your health care provider, or as directed.?? When to seek medical advice Call your health care provider right away if any of these occur: ?? Signs of infection: ?? Spreading redness??or warmth??from the wound ?? Increased pain or swelling ?? Fever of 100.4??F (38??C) or higher, or as directed by your health care provider ?? Colored fluid or pus draining from the wound ?? Signs of rabies infection: ?? Headache ?? Confusion ?? Strange behavior ?? Seizure ?? Decreased ability to move any body part near the wound ?? Bleeding that cannot be stopped after 5 minutes of firm pressure ?? [id number] [employer]. [address] [place] [address]. All rights reserved. This information is not intended as a substitute for professional medical care. Always follow your healthcare professional's instructions. documented in this encounter Progress Notes Paulina Villanueva NP - 01/09/2016 1:50 PM EDT Images from the original note were not included. Subjective: Chief Complaint: Animal Bite Dario Mckeon, a 60 y.o. male presents with a dog bite to the right forearm. Injury occurred 5 days ago. He reports pain and increased redness and swelling over the last 2 days. Patient was at home at the time when he was bit by a husky mix. Pt reports he was cleaning off the dog with a towel when oneof his other dogs growled, causing dog to bite him. Pain severity: a 4 on a scale of 0-10. TD UTD (within last 5 years). He denies fever, drainage form area, headache, decreased appetite, abd pain, N/V/D, or rash. The animal's rabies vaccine is up to date. The following portions of the patient's history were reviewed and updated as appropriate: allergies,current medications, past family history, past medical history, past social history, past surgical history and problem list. Review of Systems Pertinent items are noted in HPI. Objective: BP 112/74 Pulse 59 Temp 97.6 ??F (36.4 ??C) (Oral) Resp 16 Ht 5' 11 (1.803 m) Wt (!) 266 lb 12.8 oz(121 kg) SpO2 96% BMI 37.21 kg/m2 General appearance: alert, cooperative and no distress Right Forearm: there is a 1 cm scabbed over area with surrounding erythema and tenderness measuring 4 cm in diameter. No drainage, necrotic tissue, or lymphatic streaking Assessment: 1. Dog bite of right forearm, initial encounter Plan: 1. Labs and medications ordered today: No orders of the defined types were placed in this encounter. Outpatient Encounter Prescriptions as of 01/09/2016 Medication Sig Dispense Refill ??? amoxicillin-clavulanate (AUGMENTIN) 875-125 mg per tablet Take one tablet by mouth 2 (two) timesdaily. Take with food 20 tablet 0 ??? aspirin (ASPIRIN) 81 mg EC tablet Take 81 mg by mouth daily. ??? atorvastatin calcium (LIPITOR) 10 mg tablet Take 10 mg by mouth daily. ??? flecainide acetate (TAMBOCOR) 50 mg tablet Take 50 mg by mouth 2 (two) times daily. ??? loratadine (CLARITIN) 10 MG tablet Take 10 mg by mouth daily. ??? meloxicam (MOBIC) 15 mg tablet Take 15 mg by mouth daily. ??? metoprolol succinate (TOPROL-XL) 50 mg 24 hr tablet Take 50 mg by mouth daily. No facility-administered encounter medications on file as of 01/09/2016. warm compresses several times a day OTC analgesics Go to the ED if you develop fever 100.4 or greater, increased redness or swelling, chest pain, shortness of breath, abd pain, nausea, vomiting 2. Medication changes and new medications: as per orders. Animal control was faxed an incident form. Advised patient to follow up with their PCP this week or if symptoms worsen return here or go to theemergency department for evaluation. The patient is advised to follow up with their PCP for health maintenance and chronic illness management. Previsit planning was completed via snapshot and review of chart. Patient/family verbalized to me that they understood what their problem is, what they need to do about it, and why it is important that they do it. The patient/family voices understanding of all medications. No barriers to adherence were noted. Patient is taking all medications as prescribed and is tolerating well. Plan for follow-up as discussed or as needed if any worsening symptoms or change in condition. After Visit Summary was given to patient. documented in this encounter Plan of Treatment Upcoming Encounters Date Type Specialty Care Team Description 01/04/2022 Office Visit Urology Dayna White MD [address] [place] [phone] ([place]) documented as of this encounter Visit Diagnoses Diagnosis Dog bite of right forearm, initial encou nter - Primary documented in this encounter
--- OUTSIDE RECORDS SUMMARY | 2021-11-30 11:53 | XMS_ITS | Encounter Summary ---
:1955 Author Organization [place] [address] Care Team Providers Name Role Phone Pascual Benoit MD Unavailable Neal Breen MD Primary Care Provider Shell Freeman Unavailable Reason for Visit Reason Comments Hematuria Urology (Routine) - Closed Specialty Diagnoses / Procedures Referred By Contact Refer red To Contact Physician Summons Server / Diagnoses HEMATURIA Neal Breen MD Wolf, Danielle K, PA Urology Procedures NEW PATIENT [address] [facility] [address] [facility] [place] [address] [place] [address] Phone: Fax: Referral ID Status Reason Start Date Expiration Date Visits Requ ested Visits Authorized [id number] Closed 01/22/2019 1 1 Encounter Details Date Type Department Care Team Description 01/31/2019 [facility] Gross hem aturia (Primary Dx); [facility] TAQUERIA Benign prostatic hyperplasia with urinar y frequency; ([address] Medical History of prostatitis [address] [facility] [place] [phone] (Wo rk) Social History Tobacco Use Types Packs/Day Years Used Date Former Smoker Smokeless Tobacco: Never Used Sex Assigned at Date Recorded Not on file documented as of this encounter Last Filed Vital Signs Vital Sign Reading Time Taken Comments Blood Pressure 117/65 01/31/2019 9:41 AM EDT Pulse 65 01/31/2019 9:41 AM EDT Temperature 36.5 ??C (97.7 ??F) 01/31/2019 9:41 AM EDT Respiratory Rate - - Oxygen Saturation - - Inhaled Oxygen Concentration - - Weight 107 kg (236 lb) 01/31/2019 9:41 AM EDT Height 180.3 cm (5' 11) 01/31/2019 9:41 AM EDT Body Mass Index 32.92 01/31/2019 9:41 AM EDT documented in this encounter Progress Notes TAQUERIA Wesley - 01/31/2019 9:30 AM EDT Images from the original note were not included. Subjective Patient ID: Dario Mckeon is a 63 y.o. ( 1955) male Patient presents with ??? Hematuria HPI: Dario Mckeon presents today for evaluation of gross hematuria. [place] [facility] [place] in the past month, 01/03/2019 and 01/12/2019 for this. He notes a full week of dark red, black-colored gross hematuria throughout entire urinary stream without clot passage. This continueddespite first antibiotic treatment with ciprofloxacin. At second visit, he was started on Augmentin for presumptive treatment of prostatitis. Both UCx negative. He states hematuria began spontaneously,only associated symptom being dull bilateral low back pain. He denies increased urinary frequency, urgency, dysuria, pain. He finished a course of Augmentin a few days ago, has not seen recurrence of he maturia x 1 week. 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 Previous smoker, quit Mar 1989. Prior to this, 1 [employer] x 10-12 years. 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 Patient denies family history of prostate, kidney, or bladder cancer. He has urologic history significant for nephrolithiasis (long hx since age 54) and occasional episodes of prostatitis in his 30s. He has always been able to spontaneous pass his stones without requirement of intervention. He admits to mild symptoms of BPH including: Irritative voiding symptoms: daytime frequency (q3-4 hours), nocturia (1x/night), urgency Obstructing voiding symptoms: normal stream 01/31/2019 AUA IPSS score - 10/35 QOL - 3/6 CT: [facility] [place]- Nonobstructing bilateral renal stone disease. Normal ureters and urinary bladder. Cystoscopy: --- Previous treatments: Abx- finished Augmentin 2 days ago Current treatment: None Today's complaints: Doing well without any recurrence of hematuria. No symptoms today. Doing well from a BPH standpoint, does not note the symptoms are bothersome enough to be on medical therapy. Reviewed and updated this visit by provider: [...] for polyuria. Genitourinary: Positive for flank pain (bilateral) and hematuria (resolved). Negative for decreased urine volume, difficulty urinating, discharge, dysuria, frequency, penile pain, testicular pain and urgency. Musculoskeletal: Positive for back pain. Neurological: Negative for dizziness, light-headedness and headaches. Psychiatric/Behavioral: Negative for confusion and decreased concentration. All other systems reviewed and are negative. Objective Vitals: 01/31/19 0941 BP: 117/65 Pulse: 65 Temp: 97.7 ??F (36.5 ??C) TempSrc: Oral Height: 5' 11 (1.803 m) Weight: 236 lb (107 kg) BMI (Calculated): 32.9 PainSc: 0-No pain Physical Exam Constitutional: Appearance: He is well-developed. HENT: Head: Normocephalic and atraumatic. Eyes: Pupils: Pupils are equal, round, and reactive to light. Neck: Musculoskeletal: Normal range of motion. Pulmonary: Effort: Pulmonary effort is normal. No respiratory distress. Abdominal: Palpations: Abdomen is soft. Tenderness: There is no tenderness (to deep palpation). Musculoskeletal: Normal range of motion. General: No tenderness (no left or right CVAT appreciated). Skin: General: Skin is warm. Neurological: Mental Status: He is alert and oriented to person, place, and time. Psychiatric: Behavior: Behavior normal. Refused LOBO/ exam as this was performed at ED. Results for orders placed or performed in visit on 01/31/19 (from the past 24 hour(s)) URINE DIPSTICK,VISUAL READ Collection Time: 01/31/19 9:47 AM Result Value Ref Range Color Radford (A) Yellow, Straw, Dark yellow, Colorless, Bright yellow, Xantho, Comment, Pale Yellow Clarity Cloudy (A) Clear, Slightly hazy Glucose,Urine Negative Negative mg/dL Bilirubin Negative Negative Ketones,Urine Negative Negative mg/dL Specific Gary >=1.030 (A) 1.005 - 1.030 Blood Large (A) Negative pH 6.0 5.0 - 9.0 Protein Trace (A) Negative mg/dL Urobilinogen 0.2 0.2, 1.0 EU/dL Nitrite Negative Negative Leukocyte Esterase Negative Negative Assessment and Plan 1. Gross hematuria 2. Benign prostatic hyperplasia with urinary frequency 3. History of prostatitis UA negative for infection with large blood Gross hematuria: We discussed the complete work-up of microscopic and gross hematuria to include CT abdomen and pelvis with and without contrast to evaluate upper urinary tract structures, as well as office cystoscopy to evaluate lower urinary tract structures. Discussed possible etiologies of hematuria, including but not limited to: stones, cancer (bladder/renal), dehydration, hypertension, trauma, kidney disease (glomerulonephritis, nephropathy, interstitial nephritis), anticoagulation, and other bleeding disorders to name a few. The possibility of malignancy with gross hematuria is around 23% and in microscopic hematuria is about 5%. Although CT was performed without contrast, renal ultrasound was also within normal limits. We will go ahead with in office cystoscopy to further evaluate lower tract. Urine cytology to be dropped off later this week. If hematuria returns, he has been advised to contact our office BPH: Discussed options for urinary issues. Discussed herbal medicines including saw palmetto, prescription medicines including Flomax and finasteride, and procedural therapies including UroLift and TURP. After considering these options, the patient will like to proceed with observation. Will request PSA from PCP Follow up in about 1 month (around 03/03/2019) for symptom check, cystoscopy. Patient's Medications Accurate as of January 31, 2019 10:26 AM. Reflects encounter med changes as of last refresh Continued Medications Instructions atorvastatin calcium 10 mg tablet Commonly known as: LIPITOR 10 mg, Oral, Daily CENTRUM SILVER PO Oral donepezil HCl 10 mg tablet Commonly known as: ARICEPT 10 mg, Oral, Daily fluticasone propionate 50 mcg/actuation nasal spray Commonly [...] mg, Oral, Daily VITAMIN C PO Oral Discontinued Medications flecainide acetate 50 mg tablet Commonly known as: TAMBOCOR Stopped by: TAQUERIA Wesley Orders Placed This Encounter Procedures ??? URINE DIPSTICK,VISUAL READ ??? Cytology, urine Risks, benefits, and alternatives of the medications and treatment plan prescribed today were discussed, and patient expressed understanding. Plan follow-up as discussed or as needed if any worsening symptoms or change in condition. documented in this encounter Plan of Treatment Upcoming Encounters Date Type Specialty Care Team Description 01/04/2022 Office Visit Urology Dayna White MD [address] [facility] [place] [phone] (Wo rk) Scheduled Orders Name Type Priority Associated Diagnoses Order S chedule Cytology, urine Pathology and Routine Gross hematuria 1 Occurrences Cytology History of starting 2018 prostatitis until 01/31/2020 Benign prostatic hyperplasia with urinary frequency documented as of this encounter Procedures Procedure Name Priority Date/Time Associated Diagnosis Comme nts URINE Routine 01/31/2019 9:47 AM Gross hematuria Result s for this DIPSTICK,VISUAL EDT procedure ar e in READ the results section. documented in this encounter Results (ABNORMAL) URINE DIPSTICK,VISUAL READ (01/31/2019 9:47 AM EDT) [facility] Method Time Signature Color Radford (A) Yellow, [place] ALMANZA Straw, Dark UROLOGY yellow, ([place]) Colorless, Bright yellow, Xantho, Comment, Pale Yellow Clarity Cloudy (A) Clear, [place]ZA Slightly UROLOGY hazy ([place]) Glucose,Urine Negative Negative [place]ZA mg/dL UROLOGY ([place]) Bilirubin Negative Negative [place] UROLOGY ([place]) Ketones,Urine Negative Negative [place] mg/dL UROLOGY ([place]) Specific Gary >=1.030 (A) 1.005 - [place] AL[place]ZA 1.030 UROLOGY ([place]) Blood Large (A) Negative [place]ZA UROLOGY ([place]) pH 6.0 5.0 - 9.0 [place] UROLOGY ([place]) Protein Trace (A) Negative [place] mg/dL UROLOGY ([place]) Urobilinogen 0.2 0.2, 1.0 [place] EU/dL UROLOGY ([place]) Nitrite Negative Negative [place] UROLOGY ([place]) Leukocyte Negative Negative [place]ZA Esterase UROLOGY ([place]) Specimen (Source) Anatomical Collection Method Collection Time Re ceived Time Location / / Volume Laterality Urine 01/31/2019 9:47 AM EDT Shell MENG POINT OF CARE TEST ORDERABLE S Performing Organization Address City/State/ZIP Code Phon e Number [facility] [address] [place] [address] ([place]) Dr Andres documented in this encounter Visit Diagnoses Diagnosis Gross hematuria - Primary Benign prostatic hyperplasia with urinar y frequency History of prostatitis documented in this encounter Care Teams Non Ferrous Material Handler Relationship Specialty Start Date End Date Neal Breen MD PCP - General Family Medicine 01/21/19 Pascual Benoit MD Otolaryngology 08/17/[address] [place] [address] [place] [address] Shell Freeman PA Physician Summons Server Physician Summons Server 01/21/19 [address] [facility] [place] [address] documented as of this encounter
--- OUTSIDE RECORDS SUMMARY | 2021-11-30 11:53 | XMS_ITS | Encounter Summary ---
:1955 Author Organization [facility] [place] [address] Care Team Providers Name Role Phone Pascual Benoit MD Unavailable Neal Breen MD Primary Care Provider Shell Freeman Unavailable Encounter Details Date Type Department Care Team Description 12/01/2020 Travel Social History Tobacco Use Types Packs/Day [...] Care Team Description 01/04/2022 Office Visit Urology Danya White MD [address] [place] [address] [place], [place] [address] (Wo rk) documented as of this encounter Visit Diagnoses Not on filedocumented in this encounter Care Teams Spike Maker Relationship Specialty Start Date End Date Neal Breen MD PCP - General Family Medicine 01/21/19 Pascual Benoit MD Otolaryngology 08/17/17 [address] [place] [address] Shell Freeman PA Physician Member [employer] Legislative [employer] Physician Member [employer] 01/21/[address] [place] [address] [place] [address] documented as of this encounter
--- OUTSIDE RECORDS SUMMARY | 2021-11-30 11:53 | XMS_ITS | Encounter Summary ---
:1955 [facility] [place] [address] Care Team Providers Name Role Phone Pascual Benoit MD Unavailable Neal Breen MD Primary Care Provider Shell Freeman Unavailable Reason for Visit Reason Comments Labs Only Encounter Details Date Type Department Care Team Description 02/01/2019 Further Clinical [facility] Aysha Mosley Gross hem aturia Support [facility] RT (R) (Primary Dx ) ([address] [place] [address] Social History Tobacco Use Types Packs/Day Years Used Date Former Smoker Smokeless Tobacco: Never Used Sex Assigned at Date Recorded Not on file documented as of this encounter Progress Notes TAQUERIA Wesley - 02/06/2019 8:37 AM EDT Please let patient know that the special urine test we performed on him was negative for any definitive malignant/cancerous cells seen, however this is not a 100% accurate test. Please continue with cystoscopy. documented in this encounter Plan of Treatment Upcoming Encounters Date Type Specialty Care Team Description 01/04/2022 Office Visit Urology Dayna White MD [address] [place] [address] Dr [place], [place] [address] (Wo [place]) documented as of this encounter Procedures Procedure Name Priority Date/Time Associated Diagnosis Comme nts NON FIELD ADJUSTER CYTOLOGY Routine 02/01/2019 11:40 AM Gross hematuria R esults for this REQUEST EDT procedure are i n the results section. documented in this encounter Results Non Rental Sales Agent Cytology Request (02/01/2019 11:40 AM EDT) Component Value Ref Test Analysis Performed Pathologis t Range Method Time At Signature Case Report Non-FIELD ADJUSTER Cytology ?Case: [id number] ? 02/05/2019 [place] Authorizing Provider: ??TAQUERIA Klein ?Collected: ? 02/01/2019 1140 ? 3:49 PM MEDI TIFFANIE Ordering Location: ? [facility] ? Received: ?02/04/2019 1352 ? EDT CECILE Coombs ? Urology ([place]) ? Pathologist: ? Rosalva Posadas MD ? Specimen: ?Urine, Clean Catch ? Final Urine, clean catch (ThinPrep): Jordan BAEZ Electronically Diagnosis -Rare atypical urothelial cells of undetermined signi ficance. 3:49 PM MEDICAL signed by -Reactive and degenerated urothelial cells. EDT CENTER Rosalva S -Numerous erythrocytes present. MD Cuau[place]emoc on 02/05/2019 at Specialist Sterile Processing Manager: Rubi Chi SCT(ASCP) 3:49 PM Clinical Diagnosis: 02/05/2019 [place] Information R31.0 - Gross hematuria [ICD-10-CM] 3: 49 PM MEDICAL EDT CENTER Gross Received are 60 cc 02/05/2019 [place] Description of clear, yellow 3:49 PM MEDICAL urine fluid from EDT CENTER which one ThinPrep slide is prepared. Disclaimer The above diagnosis is based on performance of thorough gross and/or microscopic evaluations. Immunoperoxidase procedures were developed and performance characteristics determined by [facility] 02/05/[address] [place] [address] Laboratory. Not all have been cleared or approved by the U.S. Food and Drug Administration. 3:49 PM MEDICAL EDT CENTER For Flow Cytometry and Class I analyte-specific reagents (ASRs): This test was developed and its performance characteristics determined by [facility]. It has not been cl eared or approved by the US Food and Drug Administration. The FDA does not require this test to go through premarket FDA review. This test is used for clinical purposes. It should not be regarded as inv estigational or for research . This laboratory is certified under the Clinical Laboratory Improvement Amendments (CLIA) as qualified to perform high complexity clinical laboratory testing. [facility] CLIA Classifier Tender: Brittney Tineo MD Specimen Anatomical Collection Method Collection Time Receive d Time (Source) Location / / Volume Laterality Non-FIELD ADJUSTER (Urine, 02/01/2019 11:40 02/05/20 19 1:52 Clean Catch) AM EDT PM EDT Shell MENG PATHOLOGY/CYTOLOGY ORDERABLE S Performing Organization Address City/State/ZIP Code Phon e Number [facility] [address] [facility], [facility], [facility] [id number] documented in this encounter Visit Diagnoses Diagnosis Gross hematuria - Primary documented in this encounter Care Teams Satellite Manager Relationship Specialty Start Date End Date Neal Breen MD PCP - General Family Medicine 01/21/19 Pascual Benoit MD Otolaryngology 08/17/17 [address] [place] [place] [address] Shell Freeman PA Physician Building And Construction Manager Physician Building And Construction Manager 01/21/[address] [place] [address] documented as of this encounter
--- OUTSIDE RECORDS SUMMARY | 2021-11-30 11:53 | XMS_ITS | Encounter Summary ---
:1955 Author Organization [facility] [place] [address] Care Team Providers Name Role Phone Pcp, Patient Does Not Have Primary Care Provider [phone] Reason for Visit Reason Onset Date Comments Synvisc 04/28/2016 Benefits Verificatio n Submitted Synvsic 04/29/2016 Prior Auth Not Requi red Encounter Details Date Type Department Care Team Description 04/28/2016 Telephone Pharmacy [facility] ([facility] Verification Submitted [facility] ); [facility]ic (Prior Auth [place] [place] [address] Not Required ) [address] [place], [place] [phone] [address] Social History Tobacco Use Types Packs/Day [...] Telephone Encounter - [facility] - 04/29/2016 12:11 PM EST Medication [facility] received Benefits Verification results on 04/29/16 for Synvisc series of 3, for bilateral knee(s) from TAQUERIA Murray. It was determined that a Prior Authorization IS NOT required Benefits Verification results are: Drug and Procedure Coverage: ??? Synvisc(J7325) and 05653 are covered at 100% of the allowed sotomayor ??? Office visit is $20.00 copay ??? Buy and bill approved ??? No policy exclusion for J7325 Prior Authorization requirements: ??? No authorization and no pre-determination required for 95761 and J7325 Patient responsibility ??? 0% cost for Synvisc(J7325) ??? 0% cost for injection (25153) ??? $20.00 copay for specialist office visit ??? No deductible ??? Copays do not apply to moop ??? Moop do not apply ??? Plan has no annual maximum ??? No tier level Billing Information: Medical claims must be submitted to the local TFL is 180 days from the date of sevice Call information Spoke with Joe from [facility] [place] @ [phone] on 04/28/2016 Group# [id number] Call reference# [id number] Electronically signed by: [facility] 04/29/16 1211 Telephone Encounter - [facility] - 04/28/2016 8:46 AM EST Medication Access Center received a Benefits Verification request for Synvisc series of 3, for bilateral knee(s) from TAQUERIA Murray. The Benefits Verification was submitted on 04/28/16. Electronically signed by: [facility] 04/28/16 8:46 AM Electronically signed by: [facility] 04/28/16 0846 documented in this encounter Plan of Treatment Not on filedocumented as of this encounter Visit Diagnoses Not on filedocumented in this encounter Care Teams Emt Driver Relationship Specialty Start Date End Date Pcp, Patient Does Not Have PCP - General 01/31/16 05/18/16 documented as of this encounter
--- OUTSIDE RECORDS SUMMARY | 2021-11-30 11:53 | XMS_ITS | Encounter Summary ---
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) [address] [facility] [address] [place], [place] [phone] [id number] Social History Tobacco Use Types Packs/Day Years Used Date Former Smoker Smokeless Tobacco: Never Used Sex Assigned at Date Recorded Not on file documented as of this encounter Last Filed Vital Signs Vital Sign Reading Time Taken Comments Blood Pressure 119/78 05/20/2018 9:58 AM EST Pulse 71 05/20/2018 9:58 AM EST Temperature 37.1 ??C (98.7 ??F) 05/20/2018 9:58 AM EST Respiratory Rate 18 05/20/2018 9:58 AM EST Oxygen Saturation 96% 05/20/2018 9:58 AM EST Inhaled Oxygen Concentration - - Weight 115.7 kg (255 lb) 05/20/2018 9:58 AM EST Height 180.3 cm (5' 11) 05/20/2018 9:58 AM EST Body Mass Index 35.57 05/20/2018 9:58 AM EST documented in this encounter Patient Instructions Patient InstructionsSTANLEY Delvalle - 05/20/2018 10:16 AM EST Images from the original note were not included. Sinusitis (Antibiotic Treatment) The sinuses are air-filled spaces within the bones of the face. They connect to the inside of the nose.??Sinusitis??is an inflammation of the tissue that lines the sinuses. Sinusitis can occur during acold. It can also happen due to allergies to pollens and other particles in the air. Sinusitis can cause symptoms of sinus congestion and a feeling of fullness. A sinus infection causes fever, headache, and facial pain. There is often green or yellow fluid draining from the nose or into the back of the throat (post-nasal drip). You have been given antibiotics to treat this condition. Home care ?? Take the full course of antibiotics as instructed. Do not stop taking them, even when you feel better. ?? Drink plenty of water, hot tea, and other liquids. This may help thin nasal mucus. It also may help your sinuses drain fluids. ?? Heat may help soothe painful areas of your face. Use a towel soaked in hot water. Or, coat operator insulator the shower and direct the warm spray onto your face. Using a vaporizer along with a menthol rub at night may also help soothe symptoms.? An??expectorant??with guaifenesin may help thin nasal mucus and help your sinuses drain fluids. ?? You can use an pfzu-ytl-khudztc??decongestant,??unless a similar medicine was prescribed to you. Nasal sprays work the fastest. Use one that contains phenylephrine or oxymetazoline. First blow your nose gently. Then use the spray. Do not use these medicines more often than directed on the label. Ifyou do, your symptoms may get worse. You may also take pills that contain pseudoephedrine. Don???t use products that combine multiple medicines. This is because side effects may be increased. Read labels. You can also ask the pharmacist for help. (People with high blood pressure should not use decongestants. They can raise blood pressure.) ?? Rqmk-zei-cwltxrp??antihistamines??may help if allergies contributed to your sinusitis. ? Do not use nasal rinses or irrigation during an acute sinus infection, unless your healthcare provider tells you to. Rinsing may spread the infection to other areas in your sinuses. ?? Use acetaminophen or ibuprofen to control pain, unless another pain medicine was prescribed to you. If you have chronic liver or kidney disease or ever had a stomach ulcer, talk with your healthcareprovider before using these medicines. (Aspirin should never be taken by anyone under age 18 who is ill with a fever. It may cause severe liver damage.) ?? Don't smoke. This can make symptoms worse. Follow-up care Follow up with your healthcare provider or our staff if you are better in 1 week. When to seek medical advice Call your healthcare provider if any of these occur: ?? Facial pain or headache that gets worse ?? Stiff neck ?? Unusual drowsiness or confusion ?? Swelling of your forehead or eyelids ?? Vision problems, such as blurred or double vision ?? Fever of??100.4??F (38??C)??or higher, or as directed by your healthcare provider ?? Seizure ?? Breathing problems ?? Symptoms don't go away in 10 days Prevention Here are steps you can take to help prevent an infection: ?? Keep good hand washing habits. ?? Don???t have close contact with people who have sore throats, colds, or other upper respiratory infections. ?? Don???t smoke, and stay away from secondhand smoke. ?? Stay up to date with of your vaccines. Date Last Reviewed: 02/15/2017 ?? 9915-0073 [employer]. [address] [place] [address]. All rights reserved. This information is not intended as a substitute for professional medical care. Always follow your healthcare professional's instructions. Bronchitis, Antibiotic Treatment (Adult) Bronchitis is an infection of the air passages (bronchial tubes) in your lungs. It often occurs whenyou have a cold. This illness is contagious during the first few days and is spread through the air by coughing and sneezing, or by direct contact (touching the sick person and then touching your own eyes, nose, or mouth). Symptoms of bronchitis include cough with mucus (phlegm) and low-grade fever. Bronchitis usually lasts 7 to 14 days. Mild cases can be treated with simple home remedies. More severe infection is treated with an antibiotic. Home care Follow these guidelines when caring for yourself at home: ?? If your symptoms are severe, rest at home for the first 2 to 3 days. When you go back to your usual activities, don't let yourself get too tired. ?? Do not smoke. Also avoid being exposed to secondhand smoke. ?? You may use ybfi-vhi-kbareoa medicines to control fever or pain, unless another medicine was prescribed. If you have chronic liver or kidney disease or have ever had a stomach ulcer or gastrointestinal bleeding, talk with your healthcare provider before using these medicines. Also talk to your provider if you are taking medicine to prevent blood clots. Aspirin should never be given to anyone younger than 18 years of age who is ill with a viral infection or fever. It may cause severe liver or brain damage. ?? Your appetite may be poor, so a light diet is fine. Avoid dehydration by drinking 6 to 8 glasses of fluids per day (such as water, soft drinks, sports drinks, juices, tea, or soup). Extra fluids will help loosen secretions in the nose and lungs. ?? Cqtt-kpf-vhwpspi cough, cold, and sore-throat medicines will not shorten the length of the illness, but they may be helpful to reduce symptoms. (Note: Do not use decongestants if you have high bloodpressure.) ?? Finish all antibiotic medicine. Do this even if you are feeling better after only a few days. Follow-up care Follow up with your healthcare provider, or as advised. If you had an X-ray or ECG (electrocardiogram), a specialist will review it. You will be notified of any new findings that may affect your care. If you are age 65 or older, or if you have a chronic lung disease or condition that affects your immune system, or you smoke, ask??your healthcare provider about getting a??pneumococcal vaccine and a yearly flu shot (influenza vaccine). When to seek medical advice Call your healthcare provider right away if any of these occur: ?? Fever of 100.4??F (38??C) or higher, or as directed by your healthcare provider ?? Coughing up increased amounts of colored sputum ?? Weakness, drowsiness, headache, facial pain, ear pain, or a stiff neck Call 911 Call 911 if any of these occur. ?? Coughing up blood ?? Worsening weakness, drowsiness, headache, or stiff neck ?? Trouble breathing, wheezing, or pain with breathing Date Last Reviewed: 12/28/2014 ?? [id number] [employer]. [address] [place] [address], [place] [address]. All rights reserved. This information is not intended as a substitute for professional medical care. Always follow your healthcare professional's instructions. documented in this encounter Progress Notes STANLEY Delvalle - 05/20/2018 10:18 AM EST Patient ID: Dario Mckeon is a 62 y.o. ( 1955) male. Assessment and Plan 1. Sinobronchitis Discussed diagnosis and treatment of sinobronchitis. Doxycycline and Tessalon as directed. Discussed proper administration, precautions, and potential SEs of medication(s). Patient verbalizes understanding. Supportive home care: OTC Tylenol or Motrin for fever, pain/discomfort. OTC cough medication as directed by leather coater. Saline nasal spray for congestion. Cool mist humidifier. Vapor from warm showers. Vicks Vapor Rub toupper chest and nostrils for cough and congestion relief. Increase fluids, especially water intake. Warm salt-water gargles or chloraseptic spray OTC for throat discomfort. Warm compress to painful sinus areas. Advised patient to follow up with their PCP or RTC this week if condition persists (for potential for CXR) or if symptoms worsen go to the emergency department for evaluation. Report to ED for worsening cough, CP, SOB, dizziness, weakness, difficulty swallowing/speaking, stiff neck, swelling around eyes or sinuses, severe headache, and fever unresolved by medications. Patient's Medications Accurate as of 05/20/18 10:18 AM. Reflects encounter med changes as of last refresh New Prescriptions Instructions benzonatate 200 MG capsule Commonly known as: TESSALON Started by: STANLEY Delvalle 200 mg, Oral, 3 times a day as needed doxycycline hyclate 100 mg capsule Commonly known as: VIBRAMYCIN Started by: STANLEY Delvalle 100 mg, Oral, 2 times a day Continued Medications Instructions atorvastatin calcium 10 mg tablet Commonly known as: LIPITOR 10 mg, Oral, Daily CENTRUM SILVER PO Oral flecainide acetate 50 mg tablet Commonly known as: TAMBOCOR 50 mg, Oral, 2 times a day fluticasone propionate 50 mcg/actuation nasal spray Commonly known as: FLONASE 2 sprays, Nasal, Daily memantine HCl 28 mg 24 hr capsule Commonly known as: NAMENDA XR take 1 capsule by mouth daily metFORMIN 500 MG tablet Commonly known as: GLUCOPHAGE take 1 tablet by mouth twice a day metoprolol succinate 50 mg 24 hr tablet Commonly known as: TOPROL-XL 50 mg, Oral, Daily VITAMIN C PO Oral Discontinued Medications aspirin 81 mg EC tablet Commonly known as: ASPRI-LOW,ECOTRIN LOW DOSE Stopped by: STANLEY Delvalle loratadine 10 MG tablet Commonly known as: CLARITIN Stopped by: STANLEY Delvalle meloxicam 15 mg tablet Commonly known as: MOBIC Stopped by: STANLEY Delvalle predniSONE 20 mg tablet Commonly known as: DELTASONE Stopped by: STANLEY Delvalle Subjective Dario Mckeon is a 62 y.o. male who presents for evaluation of symptoms of a URI. Symptoms include nasal blockage, post nasal drip, sinus and nasal congestion. Onset of symptoms was 1 month ago, unchanged since that time. Associated symptoms include cough that is occasionally productive of thick yellow mucus, occasional aches (usual). He is drinking plenty of fluids. Evaluation to date: none. Treatment to date: Angelica Kenton Plus. The patient denies N/V/D, and abdominal pain. There is also no fever, chills, or sweats. No CP, SOB, dizziness. Denies any other complaints today. Reports history of pneumo juvencio. Denies history of asthma or other significant respiratory conditions. The following portions of the patient's history were reviewed and updated as appropriate: allergies,current medications, past family history, past medical history, past social history, past surgical history and problem list. Review of Systems Review of Systems - All systems reviewed and are negative except what is noted in the HPI. Objective Vitals: 05/20/18 0958 BP: 119/78 Pulse: 71 Temp: 98.7 ??F (37.1 ??C) TempSrc: Oral Resp: 18 Height: 5' 11 (1.803 m) Weight: 255 lb (115.7 kg) SpO2: 96% BMI (Calculated): 35.6 PainSc: 0-No pain Physical Exam General appearance: Alert, appears stated age, cooperative and no distress. Head: Normocephalic, without obvious abnormality, atraumatic. Eyes: Conjunctivae/corneas clear. PERRL, EOM's intact. No drainage. Ears: Bilateral TM dull and non-bulging. Bilateral EAC clear and intact. Nose: Nares patent, septum midline, turbinates normal. Bilateral frontal and maxillary sinus tenderness to palpation. Throat: Lips, mucosa, and tongue normal; teeth and gums normal. Uvula midline, Posterior oropharynx WNL, no tonsillar enlargement or exudates. Neck: No adenopathy, supple, symmetrical, non-tender to palpation. Lungs: Clear to auscultation bilaterally with equal, non-labored breathing. Heart: Regular rate and rhythm, S1, S2 normal, no murmur, click, rub or gallop. Skin: Skin color, texture, turgor normal. No rashes or lesions. Laboratory Testing No results found for this or any previous visit (from the past 24 hour(s)). Risks, benefits, and alternatives of the medications and treatment plan prescribed today were discussed, and patient expressed understanding. Plan follow-up as discussed or as needed if any worsening symptoms or change in condition. A yearly preventative health exam was recommended and current age based recommendations were discussed. documented in this encounter Plan of Treatment Upcoming Encounters Date Type Specialty Care Team Description 01/04/2022 Office Visit Urology Dayna White MD [address] [facility] [place] [facility] [place], [place] [address] (Darrel avila) documented as of this encounter Visit Diagnoses Diagnosis Sinobronchitis - Primary documented in this encounter Care Teams Manager Foreign Relationship Specialty Start Date End Date Chetna Loredo MD PCP - General Family Medicine 08/17/17 06/27/18 [address] [place] [address] Pascual Benoit MD Otolaryngology 08/17/17 [address] [facility] [place] [address] documented as of this encounter
--- OUTSIDE RECORDS SUMMARY | 2021-11-30 11:53 | XMS_ITS | Encounter Summary ---
:1955 Author Organization [facility] [place] [address] Care Team Providers Name Role Phone Pcp, Patient Does Not Have Primary Care Provider [phone] Reason for Visit Reason Onset Date Comments Appointment 03/04/2016 Referral Encounter Details Date Type Department Care Team Description 03/04/2016 Telephone [facility] Lyly Prajapati, Appointment (Referral) [address] RN [facility] [address] [facility] [phone] [place] [address] Social History Tobacco Use Types Packs/Day Years [...] this encounter Miscellaneous Notes Telephone Encounter - Lyly Prajapati RN - 03/04/2016 3:17 PM EST Left message for patient to call [phone] to schedule an appointment from a referral that was received. A faxed referral from [facility] was received for (B) knee pain; evaluation for injections. Faxed referral scanned into chart. Electronically signed by: Lyly Prajapati RN 03/04/16 1519 documented in this encounter Plan of Treatment Not on filedocumented as of this encounter Visit Diagnoses Not on filedocumented in this encounter Care Teams Home Administrator Relationship Specialty Start Date End Date Pcp, Patient Does Not Have PCP - General 01/31/16 05/18/16 documented as of this encounter
--- OUTSIDE RECORDS SUMMARY | 2021-11-30 11:53 | XMS_ITS | Encounter Summary ---
:1955 Author Organization [employer] [place] [address] Care Team Providers Name Role Phone Pascual Benoit MD Unavailable Neal Breen MD Primary Care Provider Shell Freeman Unavailable Reason for Visit Reason Comments Nephrolithiasis Encounter Details Date Type Department Care Team Description 10/22/2020 Office Visit [employer] Jose White Renal ca lculi [facility] MD Nito (Primary Dx) ([place]) [address] [facility] [address] [facility] [address] [place], [place] [address] [phone] Social History Tobacco Use Types Packs/Day Years Used Date Former Smoker Smokeless Tobacco: Never Used Tobacco Cessation: Counseling Given: No Sex Assigned at Date Recorded Not on file COVID-19 Exposure Response Date Recorded In the last month, have you been in contact with No / Unsure 10/22/2020 1:52 PM EDT someone who was confirmed or suspected to have Coronavirus / COVID-19? documented as of this encounter Last Filed Vital Signs Vital Sign Reading Time Taken Comments Blood Pressure 124/82 10/22/2020 2:27 PM EDT Pulse 61 10/22/2020 2:27 PM EDT Temperature - - Respiratory Rate - - Oxygen Saturation - - Inhaled Oxygen Concentration - - Weight 111.1 kg (245 lb) 10/22/2020 2:27 PM EDT Height 179.1 cm (5' 10.5) 10/22/2020 2:27 PM EDT Body Mass Index 34.66 10/22/2020 2:27 PM EDT documented in this encounter Progress Notes Jose White MD - 10/22/2020 2:39 PM EDT Images from the original note were not included. Subjective Patient ID: Dario Mckeon is a 64 y.o. ( 1955) male Patient presents with [...] history of prostate, kidney, or bladder cancer. Main complaints today: [place] [facility] [place] had some flank and abdominal pain. He had a CT scan that showed 2 distal 3 mm stones in the right ureter. He comes in today for further evaluation and management. Pain today is 3/10. Pain was a 10/10. Pain felt like he's done 300 sit ups. Aggravating factors were moving a lot of topsoil. He has NOT definitely passed his stones. Has had some bleeding per penis and clots recently after some flomax Reviewed and updated this visit by provider: Tobacco Allergies Meds Problems Med Hx SE Hx Surg Hx Fam Hx Review of Systems Constitutional: Negative for chills, diaphoresis, fatigue and fever. HENT: Negative for sore throat. Eyes: Negative for pain and itching. Respiratory: Negative for cough. Cardiovascular: Negative for chest pain. Gastrointestinal: Positive for abdominal pain. Negative for abdominal distention, nausea and vomiting. Genitourinary: Positive for flank pain. Negative for decreased urine volume, dysuria, hematuria and testicular pain. Musculoskeletal: Negative for arthralgias. Skin: Negative for color change. Neurological: Negative for dizziness, weakness and light-headedness. Psychiatric/Behavioral: Negative for agitation, behavioral problems and dysphoric mood. Objective Vitals: 10/22/20 1427 BP: 124/82 Pulse: 61 Height: 5' 10.5 (1.791 m) Weight: 245 lb (111.1 kg) BMI (Calculated): 34.6 PainSc: 3 PainLoc: Comment: bilateral kidney pain Physical Exam Vitals and nursing note reviewed. [...] 24 hour(s)) POCT urinalysis dipstick Collection Time: 10/22/20 2:28 PM Result Value Ref Range Color Yellow Yellow, Straw, Dark yellow, Colorless, Bright yellow, Xantho, Comment, Pale Yellow Clarity Clear Clear, Slightly hazy Glucose,Urine Negative Negative mg/dL Bilirubin Negative Negative Ketones,Urine Negative Negative mg/dL Specific [place] 1.025 1.005 - 1.030 Blood Trace-intact (A) Negative pH 5.0 5.0 - 9.0 [...] see abnormal calcifications - bilateral stones in he kidneys largest about 3- 4mm, can't definitely see right ureteral stones . He does have phleboliths. [place] [facility] [place] Assessment and Plan 1. Renal calculi Discussed options for his stones. KUB today shows kidney stones. After considering these options, the patient will like to proceed with trial of passage F/U KUB in 1-2 months Follow up if symptoms worsen or fail to improve. Patient's Medications Accurate as of October 22, 2020 3:08 PM. Reflects encounter med changes as of last refresh New Prescriptions Instructions ketorolac 10 MG tablet Commonly known as: TORADOL Started by: Jose White MD 10 mg, Oral, Every 6 hours as needed Continued Medications Instructions atorvastatin calcium 10 mg [...] 1 TABLET(100 MG) BY MOUTH TWICE DAILY HYDROcodone-acetaminophen 5-325 mg per tablet Commonly known as: NORCO SMARTSI Tablet(s) By Mouth Every 8 Hours PRN ipratropium 0.03% nasal spray Commonly known as: [...] known as: FLOMAX 0.4 mg, Oral, Daily VITAMIN C PO Oral Orders Placed This Encounter Procedures ??? XR [...] White MD [address] [place] [address] (Wo rk) documented as of this encounter Procedures Procedure Name Priority Date/Time Associated Comments Diagnosis XR ABDOMEN AP Routine 10/22/2020 2:45 PM Renal calculi Results for this EDT procedure are i n the results section. POCT URINALYSIS Today 10/22/2020 2:28 PM Renal calculi Resul ts for this DIPSTICK EDT procedure are i n the results section. documented in this encounter Results XR Abdomen Ap (10/22/2020 2:45 PM EDT) Anatomical Region Laterality Modality Abdomen Computed Radiography Specimen (Source) Anatomical Location Collection Method / Collectio n Time Received Time / Laterality Volume Impressions 10/22/2020 2:37 PM EDT Study was ordered and performed in clinic. It was interpreted by ordering provider. Please see office note dated 10/22/2020 for results Jose White MD IMG DIAGNOSTIC IMAGING ORDER MASOUD (ABNORMAL) POCT urinalysis dipstick (10/22/2020 2:28 PM EDT) [facility] Method Time Signature Color Yellow Yellow, [place] Straw, Dark UROLOGY yellow, ([place]) Colorless, Bright yellow, Xantho, Comment, Pale Yellow Clarity Clear Clear, [place] Slightly UROLOGY hazy ([place]) Glucose,Urine Negative Negative [place] mg/dL UROLOGY ([place]) Bilirubin Negative Negative [place] AL[place]ZA UROLOGY ([place]) Ketones,Urine Negative Negative [place] mg/dL UROLOGY ([place]) Specific [place] 1.025 1.005 - [place] AL[place]ZA 1.030 UROLOGY ([place]) Blood Trace-intact Negative [place] ALMANZA (A) UROLOGY ([place]) pH 5.0 5.0 - 9.0 [place] UROLOGY ([place]) Protein Negative Negative [place] mg/dL UROLOGY ([place]) Urobilinogen 0.2 0.2, 1.0 [place] EU/dL UROLOGY ([place]) Nitrite Negative Negative [place] [facility] UROLOGY ([place]) Leukocyte Negative Negative [place] Esterase UROLOGY ([place]) Specimen (Source) Anatomical Collection Method Collection Time Re ceived Time Location / / Volume Laterality Urine 10/22/2020 2:28 PM EDT Jose White MD POINT OF CARE TEST ORDERABLE S Performing Organization Address City/State/ZIP Code Phon e Number [facility] [address] [place] [address] ([place]) Dr Andres documented in this encounter Visit Diagnoses Diagnosis Renal calculi - Primary Calculus of kidney documented in this encounter Care Teams Luggage Liner Relationship Specialty Start Date End Date Neal Breen MD PCP - General Family Medicine 01/21/19 Pascual Benoit MD Otolaryngology 08/17/[address] [place] [address] Shell Freeman PA Physician [facility] 01/21/19 [address] [facility] [place] [address] documented as of this encounter
--- OUTSIDE RECORDS SUMMARY | 2021-11-30 11:53 | XMS_ITS | Encounter Summary ---
:1955 Author Organization [employer] [place] [address] Care Team Providers Name Role Phone Pascual Benoit MD Unavailable Neal Breen MD Primary Care Provider Shell Freeman Unavailable Reason for Referral Consultation (Routine) - Closed Specialty Diagnoses / Procedures Referred By Contact Refer red To Contact Diagnoses DJD (degenerative joint disease), lumbosacral Chronic bilateral low back pain without sciatica Shell Freeman PA [facility] [address] [place] [address] [place] [address] [place] [address] Referral ID Status Reason Start Date Expiration Date Visits V isits Requested Authorized [id number] Closed Transfer of 02/09/2021 08/07/2021 1 1 Care for Problem Encounter Details Date Type Department Care Team Description 02/09/2021 Orders Only [employer] Shell Freeman DJD (dege nerative joint disease), lumbosacral (Primary Dx); [facility] [place] Chronic bilateral low back pain without sciatica ([place]) [address] [place] [address] [place] [phone] (Wo rk) Social History [...] Visit Urology Dayna White MD [address] [facility] [address] [place] [address] (Wo rk) documented as of this encounter Procedures Procedure Name Priority Date/Time Associated Diagnosis Comme nts AMB REFERRAL TO PAIN Routine 04/06/2021 9:43 AM EST DJD (degen erative joint CLINIC disease), lumbos acral Chronic bilateral low back pain without sciatica documented in this encounter Results Ambulatory Referral to Pain Clinic (04/06/2021 9:43 AM EST) Narrative This result has an attachment that is no t available. Shell MENG OUTPATIENT REFERRAL ORDERABL ES documented in this encounter Visit Diagnoses Diagnosis DJD (degenerative joint disease), lumbos acral - Primary Degeneration of lumbar or lumbosacral in tervertebral disc Chronic bilateral low back pain without sciatica documented in this encounter Care Teams Internal Audit Director Relationship Specialty Start Date End Date Neal Breen MD PCP - General Family Medicine 01/21/19 Pascual Benoit MD Otolaryngology 08/17/17 [address] [facility] [place] [address] Shell Freeman PA Physician Chute Puller Physician Chute Puller 01/21/[address] [place] [address] [place] [address] documented as of this encounter
--- OUTSIDE RECORDS SUMMARY | 2021-11-30 11:53 | XMS_ITS | Encounter Summary ---
:1955 Author Organization [facility] [place] [address] Care Team Providers Name Role Phone Pascual Benoit MD Unavailable Neal Breen MD Primary Care Provider Shell Freeman Unavailable Encounter Details Date Type Department Care Team Description 10/22/2020 Travel Social History Tobacco Use Types Packs/Day [...] 01/04/2022 Office Visit Urology Dayna White MD [address] [place] [address] [place], [place] [address] (Wo rk) documented as of this encounter Visit Diagnoses Not on filedocumented in this encounter Care Teams Reed Polisher Relationship Specialty Start Date End Date Neal Breen MD PCP - General Family Medicine 01/21/19 Pascual Benoit MD Otolaryngology 08/17/17 1213 [place] [address] Shell Freeman PA Physician Blending Tank Tender Helper Physician Blending Tank Tender Helper 01/21/[address] [place] [address] [place] [address] documented as of this encounter
--- OUTSIDE RECORDS SUMMARY | 2021-11-30 11:53 | XMS_ITS | Encounter Summary ---
:1955 Author Organization [facility] [place] [address] Care Team Providers Name Role Phone Pascual Benoit MD Unavailable Neal Breen MD Primary Care Provider Shell Freeman Unavailable Reason for Visit Reason Comments Hematuria cysto Encounter Details Date Type Department Care Team Description 03/11/2019 Procedure visit [facility] Fady Ndiaye, Gross hematuria (Primary Dx); [facility] Renal calculi; ([place]) [address] Other stricture of bulbous u rethra in male [address] [facility] [address] [place] [address] [place] [address] [phone] Social History Tobacco Use Types Packs/Day Years Used Date Former Smoker Smokeless Tobacco: Never Used Sex Assigned at Date Recorded Not on file documented as of this encounter Last Filed Vital Signs Vital Sign Reading Time Taken Comments Blood Pressure 105/68 03/11/2019 11:09 AM EST Pulse 67 03/11/2019 11:09 AM EST Temperature - - Respiratory Rate - - Oxygen Saturation - - Inhaled Oxygen Concentration - - Weight 107 kg (236 lb) 03/11/2019 11:09 AM EST Height 180.3 cm (5' 11) 03/11/2019 11:09 AM EST Body Mass Index 32.92 03/11/2019 11:09 AM EST documented in this encounter Progress Notes Fady Ndiaye MD - 03/11/2019 11:00 AM EST Images from the original note were not included. Subjective: Patient ID: Dario Mckeon is a 63 y.o. ( 1955) male. HPI Gross hematuria, Ct scan reveals non obstructing calyceal stones-there are 3-4 small stones in each kidney largest one measuring 2 to 3 mm, for cystoscopy Reviewed and updated this visit by provider: None Review of Systems Constitutional: Negative for appetite change, fatigue and fever. HENT: Negative for congestion. Respiratory: Negative for shortness of breath. Cardiovascular: Negative for chest pain, palpitations and leg swelling. Gastrointestinal: Negative for abdominal pain, blood in stool, constipation, diarrhea and nausea. Genitourinary: Negative for difficulty urinating, dysuria, flank pain, frequency, hematuria and urgency. Musculoskeletal: Negative for back pain. Neurological: Negative for dizziness. Psychiatric/Behavioral: Negative for behavioral problems. Objective: Vitals: 03/11/19 1109 BP: 105/68 Pulse: 67 Height: 5' 11 (1.803 m) Weight: 236 lb (107 kg) BMI (Calculated): 32.9 PainSc: 0-No pain Physical Exam Indications for procedure: the patient has hematuria PROCEDURE (Cystoscopy): After a pre-procedure timeout was performed, which identified the appropriate patient, procedure, and positioning the patient's genitalia were prepped and draped in a sterile fashion. 2% viscous lidocaine jelly was instilled into the urethra, and after approximately 5 minutes the scope was introducedthrough the urethra, into the bladder. The anterior and posterior urethra were Bulbar stricture- cannot gain entry to bladder Allergies Allergen Reactions ??? Morphine Itching ??? Sulfa Antibiotics Itching ??? Codeine Hives Past Medical History: Diagnosis Date ??? Cerebral [...] file ??? Sexual activity: Not on file Lifestyle ??? Physical activity Days per week: Not on file Minutes per session: Not on file ??? Stress: Not on file Relationships ??? Social connections Talks on phone: Not on file Gets together: Not on file Attends holiness service: Not on file Active member of club or organization: Not on file Attends meetings of clubs or organizations: Not on file Relationship status: Not on file ??? Intimate partner violence Fear of current or ex partner: Not on file Emotionally abused: Not on file Physically abused: Not on file Forced sexual activity: Not on file Other Topics Concern ??? Not on file Social History Narrative ??? Not on file Physical exam: Constitutional: patient appears stated age and is in no acute distress Neck: supple, no thyroid masses, no masses or bruits Respiratory: normal respiratory effort, normal breath sounds, no wheezes or rhonchi Cardiovascular: regular rate and rhythm, normal radial pulses, no murmurs or gallops Gastrointestinal: abdomen without masses, hernias, no organomegaly, non distended, soft, nontender Lymphatic: no inguinal lymphadenopathy Skin: warm and well perfused without obvious rash Psychiatric: patient is in a stable mood Assessment / Plan: Assessment 1. Gross hematuria 2. Renal calculi 3. 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 Reflects encounter med changes as of last refresh Continued Medications Instructions atorvastatin calcium 10 mg tablet Commonly known as: LIPITOR 10 mg, Oral, Daily CENTRUM SILVER PO Oral diazepam 10 mg tablet Commonly known as: VALIUM 10 mg, Oral, Once as needed donepezil HCl 10 mg tablet Commonly known as: ARICEPT 10 mg, Oral, Daily flecainide acetate 100 mg tablet Commonly known as: TAMBOCOR 100 mg, Oral fluticasone propionate 50 mcg/actuation nasal spray Commonly known as: FLONASE 2 sprays by Each Nare route daily. glucose blood test strip Commonly known as: [employer]CH ULTRA BLUE Use to check blood sugar [...] Oral Orders Placed This Encounter Procedures ??? POCT urinalysis dipstick Risks, benefits, and [...] MD [address] [place] [phone] (Darrel avila) documented as of this encounter Procedures Procedure Name Priority Date/Time Associated Comments Diagnosis POCT URINALYSIS Today 03/11/2019 11:29 AM Gross hematuria Re sults for this DIPSTICK EST procedure are i n the results section. documented in this encounter Results (ABNORMAL) POCT urinalysis dipstick (03/11/2019 11:29 AM EST) [facility] Method Time Signature Color Dark yellow Yellow, [place] [facility] Straw, Dark UROLOGY yellow, ([place]) Colorless, Bright yellow, Xantho, Comment, Pale Yellow Clarity Clear Clear, [facility] Slightly UROLOGY hazy ([place]) Glucose,Urine Negative Negative [place] [facility] mg/dL UROLOGY ([place]) Bilirubin Negative Negative [facility] UROLOGY ([place]) Ketones,Urine Negative Negative [place] [facility] mg/dL UROLOGY ([place]) Specific [place] >=1.030 (A) 1.005 - [facility] 1.[facility] UR[facility]Y ([place]) Blood Large (A) Negative [facility] UROLOGY [facility]) pH 5.0 5.0 - 9.0 [facility] UROLOGY ([place]) Protein 30. (A) Negative [place] [facility] mg/dL UROLOGY ([place]) Urobilinogen 0.2 0.2, 1.0 [place] [facility] EU/dL UROLOGY ([place]) Nitrite Negative Negative [place] [facility]Y ([place]) Leukocyte Negative Negative [place] [facility] Esterase UROLOGY ([place]) Specimen (Source) Anatomical Collection Method Collection Time Re ceived Time Location / / Volume Laterality Urine 03/11/2019 11:29 AM EST Fady Ndiaye MD POINT OF CARE TEST ORDERABLE S Performing Organization Address City/State/ZIP Code Phon e Number [place] [facility] [address] [place] [address] ([place]) Dr Andres documented in this encounter Visit Diagnoses Diagnosis Gross hematuria - Primary Renal calculi Calculus of kidney 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 documented in this encounter Care Teams Digital Communications Manager Relationship Specialty Start Date End Date Neal Breen MD PCP - General Family Medicine 01/21/19 Pascual Benoit MD Otolaryngology 08/17/17 [address] [place] [address] Shell Freeman PA Physician Tipple Worker Physician Tipple Worker 01/21/[address] [place] [address] [place] [address] documented as of this encounter
--- OUTSIDE RECORDS SUMMARY | 2021-11-30 11:53 | XMS_ITS | Encounter Summary ---
:1955 Author Organization Consulted Address Unavailable [place] [id number] Care Team Providers Name Role Phone Unavailable Primary Care Provider Unavailable Reason for Visit Reason Comments Dysuria trouble urinating, urgency x 3 days Encounter Details Date Type Department Care Team Description 01/31/2016 Office Visit [facility] Angelina Ferrer NP Pain with urination (Primary Dx); [address] Low grade fever; [address] [place] [address] CVA tenderness; [place], [place] Urinary he sitancy; [phone] Urinary urgency; [phone] (Wo rk) Hematuria; Proteinur ia Social History Tobacco Use Types Packs/Day Years Used Date Never Smoker Sex Assigned at Date Recorded Not on file documented as of this encounter Last Filed Vital Signs Vital Sign Reading Time Taken Comments Blood Pressure 94/69 01/31/2016 10:54 AM EDT Pulse 82 01/31/2016 10:54 AM EDT Temperature 38.3 ??C (100.9 ??F) 01/31/2016 10:54 AM EDT Respiratory Rate 20 01/31/2016 10:54 AM EDT Oxygen Saturation 93% 01/31/2016 10:54 AM EDT Inhaled Oxygen Concentration - - Weight 117.9 kg (260 lb) 01/31/2016 10:54 AM EDT Height 180.3 cm (5' 11) 01/31/2016 10:54 AM EDT Body Mass Index 36.26 01/31/2016 10:54 AM EDT documented in this encounter Patient Instructions Patient InstructionsPaulina Villanueva NP - 01/31/2016 11:06 AM EDT Images from the original note were not included. GO TO THE ED FOR EVALUATION Anatomy of the Male Urinary Tract Your urinary tract helps to get rid of your body???s liquid waste. The kidneys constantly filter theblood to collect unneeded chemicals and water, making urine. Urine travels through the ureters to the bladder. The bladder fills with urine, holding it until you???re ready to release it. Signals from the brain tell the sphincter (muscles around the opening of the bladder) when to let urine flow out of the bladder. The urethra is the??tube that carries urine from the bladder out of the body. In men, the prostate gland wraps around the urethra near the bladder. ?? [id number] [employer]. [address] [place] [address], [place] [address]. All rights reserved. This information is not intended as a substitute for professional medical care. Always follow your healthcare professional's instructions. documented in this encounter Progress Notes Paulina Villanueva NP - 01/31/2016 11:10 AM EDT Subjective: Dario Mckeon is a 60 y.o. male Accompanied by his who complains of dysuria, urinary hesitancy and urgency for 3 days. Patient also has mild low back pain. Patient denies fever at home (100.9 in office today), abd pain, and penile discharge. Patient does not have a history of recurrent UTI. Patient does not have a history of pyelonephritis. Pt does have a hx of kidney stones. He also denies CP, SOB, N/V/D. The following portions of the patient's history were reviewed and updated as appropriate: allergies,current medications, past family history, past medical history, past social history, past surgical history and problem list. Review of Systems Review of Systems - All systems reviewed and are negative except what is noted in the HPI. Objective: BP 94/69 Pulse 82 Temp 100.9 ??F (38.3 ??C) (Oral) Resp 20 Ht 5' 11 (1.803 m) Wt (!) 260 lb (117.9 kg) SpO2 93% BMI 36.26 kg/m2 General: alert and oriented. Mild distress noted from pain appears well, no respiratory distress, acyanotic, normal RR, neck free of mass or lymphadenopathy, chest clear, no wheezing, crepitations, rhonchi, normal symmetric air entry Cardio: regular, rate, rhythm with no rubs, murmurs or gallops Abdomen: not performed due to pt reporting increased pain in supine position. States, there is no need since I am going to the ED and it will be done there. Back: mild CVA tenderness present right side : defer exam Results for orders placed or performed in visit on 01/31/16 (from the past 14 hour(s)) POCT urinalysis dipstick Collection Time: 01/31/16 10:48 AM Result Value Ref Range Color Dark yellow Yellow, Straw, Dark yellow, Colorless, Bright yellow, Xantho, Comment, Pale Yellow Clarity Cloudy (A) Clear, Slightly hazy Glucose,Urine Negative Negative mg/dL Bilirubin Small (A) Negative Ketones,Urine Trace (A) Negative mg/dL Specific [place] >=1.030 (A) 1.005 - 1.030 Blood Large (A) Negative pH 5.5 5.0 - 9.0 Protein 100. (A) Negative mg/dL Urobilinogen 1.0 0.2, 1.0 EU/dL Nitrite Negative Negative Leukocyte Esterase Trace (A) Negative Assessment: 1. Pain with urination 2. Low grade fever 3. CVA tenderness 4. Urinary hesitancy 5. Urinary urgency 6. Hematuria 7. Proteinuria Plan: 1. Medications and orders: Orders Placed This Encounter Procedures ??? POCT urinalysis dipstick Outpatient Encounter Prescriptions as of 01/31/2016 Medication Sig Dispense Refill ??? Ascorbic Acid (VITAMIN C PO) Take by mouth. ??? aspirin (ASPIRIN) 81 mg EC tablet Take 81 mg by mouth daily. ??? atorvastatin calcium (LIPITOR) 10 mg tablet Take 10 mg by mouth daily. ??? cyclobenzaprine (FLEXERIL) 10 mg tablet Take 10 mg by mouth 3 (three) times a day as needed for Muscle spasms. ??? flecainide acetate (TAMBOCOR) 50 mg tablet [...] Vitamins-Minerals (CENTRUM SILVER PO) Take by mouth. No facility-administered encounter medications on file as of 01/31/2016. Discussed VS, u/a results, and physical exam with pt and due to his chief complaint, physical exam, hx, and scope of [facility], I recommend pt go to the ED for evaluation and treatment. Discussed this with pt and the need for further evaluation that cannot be provided at this clinic due to limited r esources. This may include lab work, imaging, and/or other diagnostic studies. Pt verbalized understanding and agrees to go to [facility]. pts will drive him. Stable at discharge. No charge for officevisit and copay refunded. Explained he will have a charge for urinalysis. No urine culture performeddue to pt going to ED for evaluation. documented in this encounter Plan of Treatment Upcoming Encounters Date Type Specialty Care Team Description 01/04/2022 Office Visit Urology Dayna White MD [address] [place] [phone] ([place]o [place]) documented as of this encounter Procedures Procedure Name Priority Date/Time Associated Comments Diagnosis POCT URINALYSIS Routine 01/31/2016 10:48 AM Pain with urinatio n Results for this DIPSTICK EDT procedure are i n the results section. documented in this encounter Results (ABNORMAL) POCT urinalysis dipstick (01/31/2016 10:48 AM EDT) [facility] Method Time Signature Color Dark yellow Yellow, CLINIC LAB Straw, Dark yellow, Colorless, Bright yellow, Xantho, Comment, Pale Yellow Clarity Cloudy (A) Clear, CLINIC LAB Slightly hazy Glucose,Urine Negative Negative [facility]INIC [facility] mg/dL Bilirubin Small (A) Negative [facility]IN[facility] Ketones,Urine Trace (A) Negative CLINIC [facility] mg/dL Specific [place] >=1.030 (A) 1.005 - [facility]INIC [facility] 1.030 Blood Large (A) Negative CLINIC LAB pH 5.5 5.0 - 9.0 CLINIC LAB Protein 100. (A) Negative CLINIC LAB mg/dL Urobilinogen 1.0 0.2, 1.0 CLINIC [facility] EU/dL Nitrite Negative Negative CLINIC [facility] Leukocyte Trace (A) Negative CLINIC LAB Esterase Specimen (Source) Anatomical Collection Method Collection Time Re ceived Time Location / / Volume Laterality Urine 01/31/2016 10:48 AM EDT Paulina Ferrer NP POINT OF CARE TEST ORDERABLE S Performing Organization Address City/State/ZIP Code Phon e Number CLINIC LAB documented in this encounter Visit Diagnoses Diagnosis Pain with urination - Primary Low grade fever CVA tenderness Urinary hesitancy Urinary urgency Urgency of urination Hematuria Hematuria, unspecified Proteinuria documented in this encounter
--- OUTSIDE RECORDS SUMMARY | 2021-11-30 11:53 | XMS_ITS | Encounter Summary ---
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 Fady Ndiaye MD [facility] Procedures [employer] [facility] [place] [address] [place] [address] Fax: Referral ID Status Reason Start Date Expiration Date Visits Requ ested Visits Authorized [id number] Closed 10/24/2019 04/20/2020 1 1 Reason for Visit Reason Comments Follow-up Encounter Details Date Type Department Care Team Description 10/24/2019 [facility] Fady Ndiaye Other str icture of Mega Richeyy bulbous urethra in ([place]) [address] male (Primary Dx) [address] [place] [address] [facility] [phone] Social History Tobacco Use Types Packs/Day Years [...] Sign Reading Time Taken Comments Blood Pressure 115/70 10/24/2019 11:34 AM EDT Pulse 57 10/24/2019 11:34 AM EDT Temperature 36.6 ??C (97.8 ??F) 10/24/2019 11:34 AM EDT Respiratory Rate - - Oxygen Saturation - - Inhaled Oxygen Concentration - - Weight 108.9 kg (240 lb) 10/24/2019 11:34 AM EDT Height 180.3 cm (5' 11) 10/24/2019 11:34 AM EDT Body Mass Index 33.47 10/24/2019 11:34 AM EDT documented in this encounter Progress Notes Fady Ndiaye MD - 10/24/2019 11:30 AM EDT Images from the original note were not included. Subjective: Patient ID: Dario Mckeon is a 63 y.o. ( 1955) male. HPI status post internal urethrotomy 7 months ago, here for routine evaluation Reviewed and updated this visit by provider: [...] for dizziness. Psychiatric/Behavioral: Negative for behavioral problems. Limited Bladder Sonography: The patients bladder showed no bladder wall thickening, negative intraluminal abnormalities, and a PVR of 0 mL. Objective: There were no vitals filed for this visit. Physical Exam (male): Penis: uncircumcised, without obvious lesions/plaques/masses. Urethral meatus: normal caliber without discharge. Scrotum: no lesions/masses. negative for hernia. Testes: descended bilaterally, symmetric, and without masses. Epididymides: normal size, symmetric, and without masses. LOBO: normal sphincter tone, no hemorrhoids, prostate approximately 1+ by palpation, symmetric, without nodules or tenderness. Seminal vesicles not palpably abnormal. Assessment / Plan: Assessment 1. 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 Reflects encounter med changes as of [...] 2 sprays by Each Nare route daily. loratadine 5 mg chewable tablet Commonly known [...] Visit Urology Dayna White MD [address] [facility] [place] [phone] (Darrel avila) Pending Results Name Type Priority Associated Diagnoses Date/Ti nd US [employer] Imaging Today Other stricture of bulbous 10/24/2019 11:51 AM EDT urethra in male documented as of this encounter Procedures Procedure Name Priority Date/Time Associated Comments Diagnosis POCT URINALYSIS Today 10/24/2019 11:42 AM Other stricture of Results for this DIPSTICK EDT bulbous urethra in procedure are in male the results section. documented in this encounter Results (ABNORMAL) POCT urinalysis dipstick (10/24/2019 11:42 AM EDT) [facility] Method Time Signature Color Yellow Yellow, [place] [facility] Straw, Dark UROLOGY yellow, ([place]) Colorless, Bright yellow, Xantho, Comment, Pale Yellow Clarity Clear Clear, [place] [facility] Slightly UROLOGY hazy ([place]) Glucose,Urine Negative Negative [place] [facility] mg/dL UROLOGY ([place]) Bilirubin Negative Negative [place] [facility] ([place]) Ketones,Urine Negative Negative [place] [facility] mg/dL UROLOGY ([place]) Specific [place] >=1.030 (A) 1.005 - [place] [facility] 1.030 UROLOGY ([place]) Blood Negative Negative [place] [facility] ([place]) pH 5.5 5.0 - 9.0 [place] [facility] ([place]) Protein Negative Negative [place] [facility] mg/dL UROLOGY ([place]) Urobilinogen 0.2 0.2, 1.0 [place] [facility] EU/dL UROLOGY ([place]) Nitrite Negative Negative [place] [facility] ([place]) Leukocyte Negative Negative [place] [facility] Esterase UROLOGY ([place]) Specimen (Source) Anatomical Collection Method Collection Time Re ceived Time Location / / Volume Laterality Urine 10/24/2019 11:42 AM EDT Fady Ndiaye MD POINT OF CARE TEST ORDERABLE S Performing Organization Address City/State/ZIP Code Phon e Number [place] [facility] [address] [place] [address] ([place]) Dr Andres documented in this encounter Visit Diagnoses Diagnosis Other stricture of bulbous urethra in id le - Primary documented in this encounter Care Teams Machine Assembler Relationship Specialty Start Date End Date Neal Breen MD PCP - General Family Medicine 01/21/19 Pascual Benoit MD Otolaryngology 08/17/[address] [place] [address] [place] [address] Shell Freeman PA Physician Campus Rep Physician Campus Rep 01/21/[address] [facility] [place] [address] documented as of this encounter
--- OUTSIDE RECORDS SUMMARY | 2021-11-30 11:54 | XMS_ITS | Encounter Summary ---
:1955 Author Organization [facility] [place] [address] Care Team Providers Name Role Phone NickoVasquez worley Primary Care Provider Reason for Referral Diagnostic Test (Routine) - Closed Specialty Diagnoses / Procedures Referred By Contact Refer red To Contact Radiology Diagnoses Tachycardia Pascual Alvarenga PA Radiology Procedures NM myocardial perfusion scan, pharmacologic [facility] [place] [address] [place] [address] Referral ID Status Reason Start Date Expiration Date Visits V isits Requested Authorized [id number] Closed Specialty 02/09/2015 02/09/2016 1 1 Service Requested Reason for Visit Reason Comments Follow-up Encounter Details Date Type Department Care Team Description 02/09/2015 Office Visit Cardiology at [facility] Pascual Alvarenga PA Tachycardia [facility] [place] [address] CARDIOLOGY DEPT. [phone] [place], [place] [address] (Wo rk) Social History Tobacco Use Types Packs/Day Years Used Date Former Smoker Cigarettes Quit: 04/17/18 89 Smokeless Tobacco: Former User Chew Q uit: 12/27/1994 Alcohol Use Standard Drinks/Week Comments Not Asked 0 (1 standard drink = 0.6 oz pure alcoho l) Sex Assigned at Date Recorded Not on file documented as of this encounter Last Filed Vital Signs Vital Sign Reading Time Taken Comments Blood Pressure 130/76 02/09/2015 3:15 PM EDT Pulse 71 02/09/2015 3:15 PM EDT Temperature - - Respiratory Rate - - Oxygen Saturation 97% 02/09/2015 3:15 PM EDT Inhaled Oxygen Concentration - - Weight 123.8 kg (273 lb) 02/09/2015 3:15 PM EDT Height - - Body Mass Index 38.08 05/27/2013 10:50 AM EST documented in this encounter Patient Instructions Patient InstructionsPascual Alvarenga PA - 02/09/2015 3:53 PM EDT Non exercise stress test EP clinic follow up in six months with 12 lead EKG, CHEM7, LFTs documented in this encounter Progress Notes Pascual Alvarnega PA - 02/09/2015 4:32 PM EDT Subjective: Patient ID: Dario Mckeon is a 59 y.o. male. HPI 59yo man with a history of right [...] He recently started a new job at [employer] after retiring from [employer]. Patient Active Problem List Diagnosis Code ??? Chest pain R07.9 ??? Scoliosis M41.9 ??? SVT (supraventricular tachycardia) I47.1 ??? Anxiety F41.1 ??? Plantar fasciitis M72.2 Review of Systems Constitutional: Negative for fever, diaphoresis and fatigue. Respiratory: Negative for cough, chest tightness and shortness of breath. Cardiovascular: Negative for chest pain, palpitations and leg swelling. Gastrointestinal: Negative for nausea, vomiting and diarrhea. Genitourinary: Negative for dysuria, frequency and hematuria. Skin: Multiple tattoos Neurological: Negative for syncope, speech difficulty and light-headedness. History Substance Use Topics ??? Smoking status: Former Smoker Types: Cigarettes Quit date: 04/17/1988 ??? Smokeless tobacco: Former User Types: Chew Quit date: 12/27/1994 ??? Alcohol Use: Not on file Current Outpatient Rx Name Route Sig Dispense Refill ??? acetaminophen (TYLENOL) 500 mg Tablet Oral Take 1,000 mg by mouth every 6 hours as needed for Pain. ??? flecainide (TAMBOCOR) 100 mg Tablet TAKE 1 TABLET TWICE A DAY 180 tablet 0 ??? metoprolol succinate (TOPROL-XL) 50 mg 24 hr tablet take 1 tablet by mouth once daily 90 tablet 3 ??? aspirin 81 mg EC tablet Oral Take 81 mg by mouth daily. 81mg = 1 tablet ??? Hflwuvayvntys-Qjjmtpia-Kwbnec (CENTRUM SILVER) Tab Oral Take 1 tablet by mouth daily. ??? ascorbic acid (VITAMIN C) 500 mg tablet Oral Take 500 mg by mouth daily. 500mg = 1 tablet ??? DISCONTD: ibuprofen (ADVIL;MOTRIN) 200 mg tablet Oral Take 200 mg by mouth every 6 hours as needed. Indications: Pain Objective: Physical Exam Constitutional: He is oriented to person, place, and time. No distress. Neck: No JVD present. Cardiovascular: Normal rate, regular rhythm and normal heart sounds. Pulmonary/Chest: Effort normal and breath sounds normal. Abdominal: Soft. Musculoskeletal: Normal range of motion. He exhibits no edema. Neurological: He is alert and oriented to person, place, and time. Skin: Skin is warm and dry. He is not diaphoretic. Vitals reviewed. 12 lead EK02/09/2015 Normal sinus rhythm @ 64; LA 170; QRS 116; QTc 451ms Lab Results Component Value Date NA 141 02/09/2015 K 4.1 02/09/2015 CL 103 02/09/2015 BUN 19 02/09/2015 CREATININE 0.95 02/09/2015 MAGNESIUM 0.86 02/09/2015 Results for ANNE DARIO Margarita ( ) as of 02/09/2015 16:45 Ref. Range 02/09/2015 14:28 Magnesium Latest Range: 0.69-1.07 mmol/L 0.86 Total Protein Latest Range: 6.1-8.0 gm/dL 7.1 Albumin Latest Range: 3.2-5.2 gm/dL 4.4 Total Bilirubin Latest Range: 0.2-1.3 mg/dL 0.3 Bili, Direct Latest Range: 0.0-0.3 mg/dL 0.1 Alk Phos Latest Range: 40-120 unit/L 61 AST Latest Range: 0-39 unit/L 13 ALT Latest Range: 0-55 unit/L 18 Assessment and Plan: 59yo man with hx multiple right sided AT at EPS, maintained on flecainide 100mg BID and metoprolol. He is doing well, without recurrence, except when he has missed a flecainide dose. Will schedule nuclear stress (offered [facility] or [facility] - he will do it here) and EP climic follow up in six months with 12 lead EKG, CHEM7, LFTs with il or Dr. Johns. Provider: TAQUERIA Solis Provider#: [id number] Consult attending physician: Jose Francisco Morales MD documented in this encounter Plan of Treatment Upcoming Encounters Date Type Specialty Care Team Description 02/10/2022 Office Visit Neurology Mariann Ivy MD [facility] NEUROLOGY DEPT [place], [place] [address] (Wo rk) documented as of this encounter Procedures Procedure Name Priority Date/Time Associated Diagnosis Comme nts EKG 12-LEAD Routine 02/09/2015 3:33 PM Tachycardia Results f or this EDT procedure are i n the results section . documented in this encounter Results NM myocardial perfusion scan, pharmacologic (04/24/2015 3:57 PM EST) Anatomical Region Laterality Modality Nuclear Medicine Specimen (Source) Anatomical Location Collection Method / Collectio n Time Received Time / Laterality Volume Impressions 04/24/2015 4:21 PM EST IMPRESSION: No ischemia or scar. ??Left ventricular function is normal. No change from prior study. Narrative 04/24/2015 4:21 PM EST EXAMINATION: NM MYOCARDIAL PERFUSION SCAN, PHARMACOLOGIC CLINICAL HISTORY: Flecainide TECHNIQUE: During rest, 12 mCi of techne tium-99m sestamibi was administered intravenously. Approximately 20 minutes later, SPECT images of the heart were obtained with reconstruction in the shor t, vertical long and horizontal long axis. The patient then received regadenoson in travenously at a dose of 0.4 mg. 20 seconds later, 39 mCi of technetium-99m sestamibi was administered intravenously. Images of the heart were then again obtained with SPECT reconstruction. A low-dose CT scan was acquired for the purpose of attenuation correction COMPARISON: July 24, 2009 FINDINGS: No fixed or reversible perfusion defects are present. Functional analysis: Myocardial function: There is normal wal l thickening and wall motion. Left ventricular ejection fraction: 61 % (normal greater than than 50%). Procedure Note Cesar Cueva MD - 04/24/2015 EXAMINATION: NM MYOCARDIAL PERFUSION SCA N, PHARMACOLOGIC CLINICAL HISTORY: Flecainide TECHNIQUE: During rest, 12 mCi of techne tium-99m sestamibi was administered intravenously. Approximately 20 minutes later, SPECT images of the heart were obtained with reconstruction in the shor t, vertical long and horizontal long axis. The patient then received regadenoson in travenously at a dose of 0.4 mg. 20 seconds later, 39 mCi of technetium-99m sestamibi was administered intravenously. Images of the heart were then again obtained with SPECT reconstruction. A low-dose CT scan was acquired for the purpose of attenuation correction COMPARISON: July 24, 2009 FINDINGS: No fixed or reversible perfusion defects are present. Functional analysis: Myocardial function: There is normal wal l thickening and wall motion. Left ventricular ejection fraction: 61 % (normal greater than than 50%). IMPRESSION IMPRESSION: No ischemia or scar. Left ventricular fu nction is normal. No change from prior study. Rj Johns MD IMG NM ORDERABLES Nuclear Pharmacologic Stress Cardiology (04/24/2015 3:21 PM EST) Specimen (Source) Anatomical Location Collection Method / Collectio n Time Received Time / Laterality Volume Narrative This result has an attachment that is no t available. Rj Johns MD CARDIAC SERVICES ORDERABLES EKG 12 Lead (02/09/2015 3:33 PM EDT) Component Value Ref Range Test Analysis Performed Pathologis t Method Time At Signature Ventricular rate 64 BPM MUSE SYSTEM Atrial Rate 64 BPM MUSE SYSTEM P-R Interval 170 ms MUSE SYSTEM QRS Duration 116 ms MUSE SYSTEM Q-T Interval 438 ms MUSE SYSTEM QTC Calculated 451 ms MUSE SYSTEM (Bezet) Calculated P [place] 36 degrees MUSE SYSTEM Calculated R [place] -38 degrees MUSE SYSTEM Calculated T [place] 50 degrees MUSE SYSTEM INTERPRETATION Normal sinus rhythm MUSE SYSTEM Left axis deviation Abnormal ECG When compared with ECG of 11-MAY-2012 15:29, No significant change was found Confirmed by fellow MD Chandler, [facility] ([id number]) on 02/10/2015 12:28:36 PM Confirmed by MD Debbie, Dashawn ([id number]) on 02/10/2015 2:02:4 8 PM Specimen Anatomical Collection Method Collection Time Receive d Time (Source) Location / / Volume Laterality 02/09/2015 3:33 PM 5 2:02 EDT PM EDT Pascual Morales MD ECG ORDERABLES Performing Organization Address City/State/ZIP Code Phon e Number MUSE SYSTEM documented in this encounter Visit Diagnoses Diagnosis Tachycardia Tachycardia, unspecified Tachycardia Tachycardia, unspecified documented in this encounter Care Teams Electrophysiology Technologist Relationship Specialty Start Date End Date Vasquez Maharaj DO PCP - General 03/09/10 09/26/[address] [place] [address] documented as of this encounter
--- OUTSIDE RECORDS SUMMARY | 2021-11-30 11:54 | XMS_ITS | Encounter Summary ---
:1955 Demographics Home Phone Preferred Language Unknown Marital Status Unknown Confucianism Affiliation Unknown Race Unknown Ethnic Group Unknown Author Organization [facility] Address [address] [place] [address] Care Team Providers Name Role Phone Unavailable Primary Care Provider Unavailable Encounter Details Date Type Department Care Team Description 11/16/2021 Lab Requisition [facility] Outr Resulting Lab, Pathology & Laboratory Provider [facility] [address] [place] [address] Social History Tobacco Use Types Packs/Day Years Used Date Never Assessed Sex Assigned at Date Recorded Not on file documented as of this encounter Plan of Treatment Not on filedocumented as of this encounter Procedures Procedure Name Priority Date/Time Associated Diagnosis Comme nts FECAL BACTERIAL Routine 11/16/2021 18:45 Results for this PATHOGENS BY PCR EDT procedure a re in the results section. documented in this encounter Results FECAL BACTERIAL PATHOGENS BY PCR (11/16/2021 18:45 EDT) Pathologist Sig nature Salmonella PCR Negative Negative [facility] Shigella/Enteroinvasive Negative Negative [facility] E. coli LABORATORY SERVICES HN LAB CAMPYLOBACTER PCR Negative Negative [facility] SERVICES Shiga Toxin PCR Negative Negative [facility] Specimen Feces - Specimen from rectum (specimen) Performing Organization Address City/State/ZIP Code Phon e Number [facility] [address] [place] [address] SERVICES documented in this encounter Visit Diagnoses Not on filedocumented in this encounter
--- OUTSIDE RECORDS SUMMARY | 2021-11-30 11:54 | XMS_ITS | Encounter Summary ---
:1955 Author Organization [facility] Address [address] [place] [address] Care Team Providers Name Role Phone Vasquez Maharaj Primary Care Provider Encounter Details Date Type Department Care Team Description 02/22/2011 Orders Only Cardiology at [facility] Bebeto Foss SVT (supraventricular [facility] B, MEETING FACILITATOR tachycardia) (Primary Drive [facility] Dx) [place] [address] CARDIOLOGY DEPT. [place], [place] [address] Social History Tobacco Use Types Packs/Day Years Used Date Former Smoker Quit: 04/17/18 89 Alcohol Use Standard Drinks/Week Comments Not Asked 0 (1 standard drink = 0.6 oz pure alcoho l) Sex Assigned at Date Recorded Not on file documented as of this encounter Plan of Treatment Upcoming Encounters Date Type Specialty Care Team Description 02/10/2022 Office Visit Neurology Mariann Ivy MD [facility] ER NEUROLOGY DEPT [place], [place] [address] (Wo rk) Scheduled Orders Name Type Priority Associated Diagnoses Order S chedule EKG 12 Lead ECG Routine SVT (supraventricular Ordere d: 02/22/2011 tachycardia) Basic Metabolic Panel Lab Routine SVT (supraventricul ar Expected: 02/22/2011 (non-fasting) tachycardia) (Approximate), Expires: 2011 Hepatic Function Panel Lab Routine SVT (supraventricu lar Expected: 02/25/2011, tachycardia) Expires: 2011 Basic Metabolic Panel Lab Routine SVT (supraventricul ar Expected: 02/25/2011, (non-fasting) tachycardia) Expires: 02/25 documented as of this encounter Procedures Procedure Name Priority Date/Time Associated Diagnosis Comme nts EKG 12-LEAD Routine 02/25/2011 1:11 PM SVT (supraventricular Results for this EST tachycardia) procedure are i n the results section . documented in this encounter Results EKG 12 Lead (02/25/2011 1:11 PM EST) Component Value Ref Range Test Analysis Performed Pathologis t Method Time At Signature Ventricular rate 57 BPM MUSE SYSTEM Atrial Rate 57 BPM MUSE SYSTEM P-R Interval 196 ms MUSE SYSTEM QRS Duration 112 ms MUSE SYSTEM Q-T Interval 458 ms MUSE SYSTEM QTC Calculated 445 ms MUSE SYSTEM (Bezet) Calculated P [place] 2 degrees MUSE SYSTEM Calculated R [place] -30 degrees MUSE SYSTEM Calculated T [place] 11 degrees MUSE SYSTEM INTERPRETATION Sinus bradycardia MUSE SY STEM Left axis deviation Abnormal ECG When compared with ECG of 27-AUG-2010 14:20, No significant change was found Confirmed by MD Homer, Danis Gillette ([id number]) on 02/26/2011 10:5 6:11 AM Specimen Anatomical Collection Method Collection Time Receive d Time (Source) Location / / Volume Laterality 02/25/2011 1:11 PM 1 EST 10:56 AM EST Rj Johns MD ECG ORDERABLES Performing Organization Address City/State/ZIP Code Phon e Number MUSE SYSTEM Hepatic Function Panel (02/25/2011 12:49 PM EST) P athologist Signature Total Protein 7.2 6.4 - 8.3 CERNER gm/dL [place] Albumin 4.2 3.2 - 5.2 [facility] gm/dL [place] AST 22 0 - 39 [place] unit/L [place] ALT 23 0 - 55 [place] unit/L [place] Alk Phos 65 40 - 120 [place] unit/L [place] Total 0.4 0.2 - 1.3 [place] Bilirubin mg/dL [place] Bili, Direct 0.1 0.0 - 0.3 [place] mg/dL [place] Specimen Anatomical Collection Method Collection Time Receive d Time (Source) Location / / Volume Laterality Blood specimen 02/25/2011 12:49 1 1:11 (specimen) PM EST PM EST Rj Johns MD CHEMISTRY ORDERABLES Performing Organization Address City/State/ZIP [place] [address] [facility] documented in this encounter Visit Diagnoses Diagnosis SVT (supraventricular tachycardia) - Velma campos Other specified cardiac dysrhythmias documented in this encounter Care Teams Construction Project Coordinator Relationship Specialty Start Date End Date Vasquez Maharaj DO PCP - General 03/09/10 09/26/[address] [place] [address] documented as of this encounter
--- OUTSIDE RECORDS SUMMARY | 2021-11-30 11:54 | XMS_ITS | Encounter Summary ---
:1955 Author Organization [facility] Address [address] [place] [address] Care Team Providers Name Role Phone Vasquez Maharaj DO Primary Care Provider Encounter Details Date Type Department Care Team Description 09/29/2011 Telephone Cardiology at [facility] Rj Johns MD [facility] [place] [address] CARDIOLOGY DEPT. [phone] [place], [place] [address] (Wo rk) Social History Tobacco Use Types Packs/Day Years Used Date Former Smoker Cigarettes Quit: 04/17/18 89 Smokeless Tobacco: Former User Chew Q uit: 12/27/1994 Alcohol Use Standard Drinks/Week Comments Not Asked 0 (1 standard drink = 0.6 oz pure alcoho l) Sex Assigned at Date Recorded Not on file documented as of this encounter Miscellaneous Notes Telephone Encounter - Waleska Lopez - 09/29/2011 9:18 AM EDT Hi, Please sign the attached stress test order. I was unable to print out the one that you had entered in the system. I have to print and fax the order to [facility]. Thanks, Romelia documented in this encounter Plan of Treatment Upcoming Encounters Date Type Specialty Care Team Description 02/10/2022 Office Visit Neurology Mariann Ivy MD [facility] ER NEUROLOGY DEPT [place], [place] [address] (Wo rk) documented as of this encounter Visit Diagnoses Diagnosis CAD (coronary artery disease) - Primary Coronary atherosclerosis of unspecified type of vessel, [place] or graft documented in this encounter Care Teams Speech Communication Instructor Relationship Specialty Start Date End Date Vasquez Maharaj DO PCP - General 03/09/10 09/26/21 [address] [place] [address] documented as of this encounter
--- OUTSIDE RECORDS SUMMARY | 2021-11-30 11:54 | XMS_ITS | Encounter Summary ---
:1955 Author Organization [facility] Address [address] [address] Care Team Providers Name Role Phone Vasquez Maharaj DO Primary Care Provider Reason for Visit Reason Onset Date Comments Medication Refill 10/02/2012 Encounter Details Date Type Department Care Team Description 10/02/2012 Refill Cardiology at [facility] Rj Johns MD Medication Refill [facility] [place] [address] CARDIOLOGY DEPT. [phone] [place], [place] [address] (Wo rk) Social History Tobacco [...] 02/10/2022 Office Visit Neurology Mariann Ivy MD [facility] NEUROLOGY DEPT [place], [place] [address] (Wo rk) documented as of this encounter Visit Diagnoses Diagnosis SVT (supraventricular tachycardia) - Velma andres Other specified cardiac dysrhythmias documented in this encounter Care Teams Candy Vendor Relationship Specialty Start Date End Date Vasquez Maharaj DO PCP - General 03/09/10 09/26/[address] [place] [address] documented as of this encounter
--- OUTSIDE RECORDS SUMMARY | 2021-11-30 11:54 | XMS_ITS | Encounter Summary ---
:1955 Author Organization [facility] [place] [address] Care Team Providers Name Role Phone Vasquez Maharaj DO Primary Care Provider Reason for Visit Reason Comments Medication Refill Encounter Details Date Type Department Care Team Description 02/11/2011 Refill Cardiology at [facility] Bebeto Foss, Medication Refill [facility] [place] [address] [facility] [phone] CARDIOLOGY DEPT. [place], [place] [address] (Wo rk) Social History Tobacco [...] 02/10/2022 Office Visit Neurology Mariann Ivy MD [facility] NEUROLOGY DEPT [place], [place] [address] (Wo rk) documented as of this encounter Visit Diagnoses Diagnosis SVT (supraventricular tachycardia) Other specified cardiac dysrhythmias documented in this encounter Care Teams Rn Ed Relationship Specialty Start Date End Date Vasquez Maharaj DO PCP - General 03/09/10 09/26/[address] [place], [place] [id number] (work) documented as of this encounter
--- OUTSIDE RECORDS SUMMARY | 2021-11-30 11:54 | XMS_ITS | Encounter Summary ---
:1955 Author Organization [facility] Address [address] [place] [address] Care Team Providers Name Role Phone NickoVasquez worley Primary Care Provider Reason for Visit Reason Onset Date Comments Other 06/02/2015 patient is looking f or his nuc stress test results Encounter Details Date Type Department Care Team Description 06/02/2015 Telephone Cardiology at [facility] Pascual Alvarenga, [place] (patient is [facility] looking for his nuc Drive [facility] stress test results) [place] [address] CARDIOLOGY DEPT. [place], [place] [address] (Wo rk) Social History Tobacco Use Types Packs/Day Years Used Date Former Smoker Cigarettes Quit: 04/17/18 89 Smokeless Tobacco: Former User Chew Q uit: 12/27/1994 Alcohol Use Standard Drinks/Week Comments Not Asked 0 (1 standard drink = 0.6 oz pure alcoho l) Sex Assigned at Date Recorded Not on file documented as of this encounter Miscellaneous Notes Telephone Encounter - Carrie Navarro - 06/02/2015 3:15 PM EST Patient would like you to call him with the results of his nuc stress test [phone] Thanks. documented in this encounter Plan of Treatment Upcoming Encounters Date Type Specialty Care Team Description 02/10/2022 Office Visit Neurology Mariann Ivy MD [facility] NEUROLOGY DEPT [place], [place] [address] (Wo rk) documented as of this encounter Visit Diagnoses Not on filedocumented in this encounter Care Teams Gas Mask Inspector Relationship Specialty Start Date End Date Vasquez Maharaj DO PCP - General 03/09/10 09/26/[address] [place] [address] documented as of this encounter
--- OUTSIDE RECORDS SUMMARY | 2021-11-30 11:54 | XMS_ITS | Encounter Summary ---
:1955 Author Organization [facility] Address [address] [place] [address] Care Team Providers Name Role Phone Vasquez Maharaj DO Primary Care Provider Reason for Visit Reason Comments Medication Refill Encounter Details Date Type Department Care Team Description 03/26/2015 Refill Cardiology at [facility] Rj Johns MD Medication Refill [facility] [address] [place] [address] CARDIOLOGY DEPT. [phone] [place], [place] [address] (Wo rk) Social History Tobacco [...] 02/10/2022 Office Visit Neurology Mariann Ivy MD [facility] NEUROLOGY DEPT [place], [place] [address] (Wo rk) documented as of this encounter Visit Diagnoses Not on filedocumented in this encounter Care Teams Subsurface Augmentee Elint Operator Relationship Specialty Start Date End Date Vasquez Maharaj DO PCP - General 03/09/10 09/26/[address] [place] [address] documented as of this encounter
--- OUTSIDE RECORDS SUMMARY | 2021-11-30 11:54 | XMS_ITS | Encounter Summary ---
:1955 Author Organization [facility] Address [facility] [address] [place] [address] Care Team Providers Name Role Phone Vasquez Maharaj DO Primary Care Provider Reason for Visit Reason Comments Irregular Heart Beat Encounter Details Date Type Department Care Team Description 02/25/2011 Follow-Up Cardiology at [facility] Bebeto Foss SVT (supraventricular [facility] B, HANDMADE TILE ARTIST tachycardia) (Primary Drive [facility] [place]x) [place] [address] CARDIOLOGY DEPT. [place], [place] [address] (Wo rk) Social History Tobacco Use Types Packs/Day Years Used Date Former Smoker Quit: 04/17/18 89 Alcohol Use Standard Drinks/Week Comments Not Asked 0 (1 standard drink = 0.6 oz pure alcoho l) Sex Assigned at Date Recorded Not on file documented as of this encounter Last Filed Vital Signs Vital Sign Reading Time Taken Comments Blood Pressure 116/78 02/25/2011 1:06 PM EST Pulse 64 02/25/2011 1:06 PM EST regular, radial Temperature - - Respiratory Rate - - Oxygen Saturation - - Inhaled Oxygen Concentration - - Weight 117 kg (258 lb) 02/25/2011 1:06 PM EST Height 180.3 cm (5' 11) 02/25/2011 1:06 PM EST Body Mass Index 35.98 02/25/2011 1:06 PM EST documented in this encounter Patient Instructions Patient InstructionsBebeto Foss - 02/25/2011 11:18 AM EST Continue your current medications at their prescribed doses We will make routine follow up for you in the EP clinic in about 6 months documented in this encounter Progress Notes Bebeto Foss - 02/25/2011 11:19 AM EST Subjective: Patient ID: Dario Mckeon is a 55 y.o. male. Patient Active Problem List Diagnoses ??? SVT (supraventricular tachycardia) -At least 4 episodes of SVT: 1 year ago, 6 months ago, 03/05/09, and 03/17/09 (on metoprolol 25 mg BID for most recent episode). Symptoms during SVT include palpitations and near-syncope (one episode brought pt to his knees); some SVT in hospital was asymptomatic. The SVT CL is 330 ms, with episodes of 2:1 block. -Successful ablation of typical (cavotricuspid-isthmus dependent) atrial flutter 03/18/2009, induced at EPS. -Unsuccessful ablation of clinical atrial tachycardia, with early activation (70 ms pre-P wave) near lateral TV annulus and also near high septum; low voltage in lateral RA; it is possible that this represents a single macro- reentrant atrial tachycardia/flutter not dependent on the cavotricuspid isthmus. Discharged on increased metoprolol and flecainide. -If repeat ablation is considered, would perform with 3-D activation mapping and general anesthesiafor patient comfort (significant shoulder pain during ablation). -Echo 02/27/09 --> EF 70%, concentric LVH, left atrium mildly enlarged, normal aortic and mitralvalves, no pericardial effusion. ??? Anxiety ??? Plantar fasciitis ??? Chest pain / Negative nuclear scan. ??? Scoliosis HPI Since his last visit to the EP clinic, Mr Mckeon has been doing very well. He has had no more arrhythmia episodes, denies palpitations, lightheadedness, dizziness or shahab syncope. He feels great and is very happy with his current medical regimen. Current outpatient prescriptions:metoprolol succinate (TOPROL-XL) 50 mg 24 hr tablet, take 1 tablet by mouth once daily, Disp: 30 tablet, Rfl: 1; aspirin 81 mg EC tablet, Take 81 mg by mouth daily. 81mg = 1 tablet , Disp: , Rfl: ; Crgijvsfcfobc-Jnubeigq-Hlmfdv (CENTRUM SILVER) Tab, Take 1 tablet by mouth daily., Disp: , Rfl: ; ascorbic acid (VITAMIN C) 500 mg tablet, Take 500 mg by mouth daily. 500mg= 1 tablet , Disp: , Rfl: flecainide (TAMBOCOR) 150 mg tablet, 150 MG = 1 Tablet(s) PO Q12H, Disp: , Rfl: ROS General: No fever or chills. Integ:Denies rash. HEENT: No headaches, dizziness, vertigo, visual changes, epistaxis Cardiac:No chest pain, orthopnea, PND. Respiratory: No SOB or SHERMAN, no cough GI: No dysphagia, abdominal pain, N/V/D/C Musculoskeletal: Denies joint pain or swelling. Neuro: Denies seizures. Psych: Denies memory changes or depression. Objective: Physical Exam Filed Vitals: 02/25/11 1306 BP: 116/78 Pulse: 64 Constitutional: Adult with NAD. Integ: Warm and dry. HEENT: Head atraumatic, normocephalic Neck: No JVD @ 45 degree incline. Respiratory:CTA Cardiovascular:S1S2 RRR no MRG Extremities: Pulses intact Neuro: Nonfocal ECG: SB 57 ERVIN 196 ms QRS 112 ms QTc 430ms No results found for this basename: wbc, hgb, hct, platelet No results found for this basename: INR in the last 168 hours .Lab Results Component Value Date NA 140 02/25/2011 K 4.1 02/25/2011 CL 104 02/25/2011 BUN 16 02/25/2011 CREATININE 0.87 02/25/2011 LFT's pending. No results found for this basename: wbc, hgb, hct, platelet No results found for this basename: INR in the last 168 hours .Lab Results Component Value Date NA 142 08/27/2010 K 4.1 08/27/2010 CL 108* 08/27/2010 BUN 22* 08/27/2010 CREATININE 0.85 08/27/2010 Assessment and Plan: 55 y/o with a h/o atrial flutter and AT well controlled on Flecainide. ECG and labs (LFT's pending) acceptable today and will plan for f/u in [address] Johns. Provider: Bebeto Foss, MSN, HANDMADE TILE ARTIST, CCDS Provider #: [id number] documented in this encounter Plan of Treatment Upcoming Encounters Date Type Specialty Care Team Description 02/10/2022 Office Visit Neurology Mariann Ivy MD [facility] ER NEUROLOGY DEPT [place], [place] [address] [phone] (Wo rk) documented as of this encounter Procedures Procedure Name Priority Date/Time Associated Diagnosis Comme nts HEPATIC FUNCTION Routine 02/25/2011 12:49 PM SVT Resu lts for this PANEL EST (supraventricular procedure are in tachycardia) the results section. BASIC METABOLIC Routine 02/25/2011 12:49 PM SVT Resul ts for this PANEL (NON-FASTING) EST (supraventricular pro cedure are in tachycardia) the results section. documented in this encounter Results Hepatic Function Panel (02/25/2011 12:49 PM EST) [...] Organization Address City/State/[place] [address] CERNER MILLENNIUM Basic Metabolic Panel (non-fasting) (02/25/2011 12:49 PM EST) P athologist Signature Glucose Lvl 87 60 - 199 CERNER mg/dL MILLENNIUM Comment: Diabetes: >=200 mg/dL plus symp toms BUN 16 10 - 20 mg/dL CERNER MILLENNIU M Creatinine 0.87 0.80 - 1.50 mg/dL CERNER MILL ENNIUM Sodium 140 135 - 145 mmol/L CERNER JENNI NIUM Potassium 4.1 3.5 - 5.0 mmol/L CERNER JENNI NIUM Comment: Please note: ??Patients with WBC >100,00 0 may have falsely elevated Potassium levels. ??For accurate Potassium quantif ication in these patients send serum separator tube (gold top) for subsequent determinations. ??Contact the Clinical Chemistry Laboratory if there are any qu estions. Chloride 104 98 - 107 mmol/L CERNER MILLENN IUM CO2 26 22 - 31 mmol/L CERNER MILLENNI UM Anion Gap 10 5 - 15 mmol/L CERNER MILLENNIU M Calcium 9.3 8.5 - 10.5 mg/dL CERNER JENNI NIUM Estimated GFR >60 >=60 CERNER MILLENNIU M Comment: The National Kidney Disease Education Pr ogram (NKDEP) has recommended all laboratories report estimated GFR (eGFR) along with plasma creatinine measurements to assist you with recognit ion of early kidney disease. Caveats: ??Plasma creatinine should be a t steady-state (unchanged within the past week). For patient s multiply eGFR by 1.2.MDRD equation has not been validated for pediatric pat ients and is only valid for patients with age >= 18 years. At present, NKDEP does NOT recommend usi ng the MDRD equation for drug dosing purposes and pharmacists should continue to use their current dosing methods. In addition, numerical eGFR values great er than 60 ml/min/1.73 square meters should be treated as > 60, and not an ex act number due to greater inaccuracies at these higher values. Per NKDEP, they classify normal renal function as any GFR >60ml/min/1.73 square meters; chronic kidney disease wh en GFR <60, and renal failure when GFR <15. ??This calculation may not be valid for patients with atypical muscle mass (very lean or obese), acute renal failur e, and in patients with diabetic kidney disease. References: http://nkdep.nih.gov/resources/NKDEP_Sug gestn4Labs_0606_508.pdf http://www.kidney.org/professionals/kls/ pdf/faq_gfr.pdf Specimen Anatomical Collection Method Collection Time Receive d Time (Source) Location / / Volume Laterality Blood specimen 02/25/2011 12:49 1 1:11 (specimen) PM EST PM EST Rj Johns MD CHEMISTRY ORDERABLES Performing Organization Address City/State/[place] [address] [facility] documented in this encounter Visit Diagnoses Diagnosis SVT (supraventricular tachycardia) - Ervin campos Other specified cardiac dysrhythmias documented in this encounter Care Teams Armed Custom Protection Officer Relationship Specialty Start Date End Date Vasquez Maharaj DO PCP - General 03/09/10 09/26/[address] [place] [address] documented as of this encounter
--- OUTSIDE RECORDS SUMMARY | 2021-11-30 11:54 | XMS_ITS | Encounter Summary ---
:1955 Author Organization [facility] [address] Care Team Providers Name Role Phone Vasquez Maharaj Primary Care Provider Reason for Visit Diagnostic Test (Routine) - Closed Specialty Diagnoses / Procedures Referred By Contact Refer red To Contact Radiology Diagnoses Tachycardia Pascual Alvarenga PA Radiology Procedures NM myocardial perfusion scan, pharmacologic [facility] [place] [address] [place] [address] Referral ID Status Reason Start Date Expiration Date Visits V isits Requested Authorized [id number] Closed Specialty 02/09/2015 02/09/2016 1 1 Service Requested Encounter Details Date Type Department Care Team Description 04/24/2015 Hospital Encounter Nuclear Medicine at Corin Johns MD [facility] [address] [place] [address] [place] [address] [phone] (Wo rk) Social History Tobacco Use Types Packs/Day Years Used Date Former Smoker Cigarettes Quit: 04/17/18 89 Smokeless Tobacco: Former User Chew Q uit: 12/27/1994 Alcohol Use Standard Drinks/Week Comments Not Asked 0 (1 standard drink = 0.6 oz pure alcoho l) Sex Assigned at Date Recorded Not on file documented as of this encounter Medications at Time of Discharge Medication Sig Dispensed Refills Start Date End Date flecainide (TAMBOCOR) 100 TAKE 1 TABLET TWICE 180 tablet 3 1 05/27/2014 mg Tablet A DAY acetaminophen (TYLENOL) 500 Take 1,000 mg by 0 mg Tablet mouth every 6 hours as needed for Pain. metoprolol succinate take 1 tablet by 90 tablet 3 3 (TOPROL-XL) 50 mg 24 hr mouth once daily tabletIndications: SVT (supraventricular tachycardia) aspirin 81 mg EC tablet Take 81 mg by mouth 0 daily. 81mg = 1 tablet Ephejtjsnnhpe-Orzimsix-Xvzd Take 1 tablet by 0 in (CENTRUM SILVER) Tab mouth daily. ascorbic acid (VITAMIN C) Take 500 mg by 0 500 mg tablet mouth daily. 500mg = 1 tablet documented as of this encounter Plan of Treatment Upcoming Encounters Date Type Specialty Care Team Description 02/10/2022 Office Visit Neurology Mariann Ivy MD [facility] [facility] NEUROLOGY DEPT [place], [place] [address] (Wo rk) documented as of this encounter Procedures Procedure Name Priority Date/Time Associated Comments Diagnosis NM PHARMACOLOGIC Routine 04/24/2015 3:57 PM Tachycardia Resul ts for this STRESS AND REST EST procedure ar e in MYOCARDIAL PERFUSION the res ults section. documented in this encounter Results NM myocardial [...] change from prior study. Rj Johns MD [facility] [place] ORDERABLES documented in this encounter Visit Diagnoses Not on filedocumented in this encounter Care Teams Cafeteria Clerk Relationship Specialty Start Date End Date Vasquez Maharaj DO PCP - General 03/09/10 09/26/[address] [place] [address] documented as of this encounter
--- OUTSIDE RECORDS SUMMARY | 2021-11-30 11:54 | XMS_ITS | Encounter Summary ---
:1955 Author Organization [facility] [place] [address] Care Team Providers Name Role Phone Vasquez Maharaj DO Primary Care Provider Encounter Details Date Type Department Care Team Description 08/27/2010 Orders Only Cardiology at [facility] Rj Johns S, Arrhythmia (Primary [facility] MD Dx) [place] [address] CARDIOLOGY DEPT. [place], [place] [address] Social History Tobacco Use Types [...] 02/10/2022 Office Visit Neurology Mariann Ivy MD [facility] NEUROLOGY DEPT [place], [place] [address] (Wo rk) documented as of this encounter Results Creatinine, serum (08/27/2010 1:44 PM EDT) P athologist Signature Creatinine 0.85 0.80 - CERNER 1.50 mg/dL MILLENNIUM Estimated GFR >60 >=60 CERNER MILLENNIUM Comment: The National Kidney Disease Education Pr [...] Location / / Volume Laterality Blood specimen 08/27/2010 1:44 PM 011 2:11 (specimen) EDT PM EDT Rj Johns MD CHEMISTRY ORDERABLES Performing Organization Address City/State/[place] [address] CERNER MILLENNIUM (ABNORMAL) BUN (08/27/2010 1:44 PM EDT) P athologist Signature BUN 22 (H) 10 - 20 CERNER mg/dL MILLENNIUM Specimen Anatomical Collection Method Collection Time Receive d Time (Source) Location / / Volume Laterality Blood specimen 08/27/2010 1:44 PM 011 2:11 (specimen) EDT PM EDT Rj Johns MD CHEMISTRY ORDERABLES Performing Organization Address City/[facility] [place] [address] CERNER MILLENNIUM (ABNORMAL) Electrolyte panel (08/27/2010 1:44 PM EDT) athologist Signature Sodium 142 135 - 145 CERNER mmol/L MILLENNIUM Potassium 4.1 3.5 - 5.0 CERNER mmol/L MILLENNIUM Comment: Please note: ??Patients with WBC >100,00 0 may have falsely elevated Potassium levels. ??For accurate Potassium quantif ication in these patients send serum separator tube (gold top) for subsequent determinations. ??Contact the Clinical Chemistry Laboratory if there are any qu estions. Chloride 108 (H) 98 - 107 mmol/L CERNER MILLENN IUM CO2 23 22 - 31 mmol/L CERNER MILLENNI UM Anion Gap 11 5 - 15 mmol/L CERNER MILLENNIU M Specimen Anatomical Collection Method Collection Time Receive d Time (Source) Location / / Volume Laterality Blood specimen 08/27/2010 1:44 PM 011 2:11 (specimen) EDT PM EDT Rj Johns MD CHEMISTRY ORDERABLES Performing Organization Address City/State/[place] [address] CERNER MILLENNIUM Hepatic function panel (08/27/2010 1:44 PM EDT) athologist Signature Total Protein 7.3 6.4 - 8.3 CERNER gm/dL MILLENNIUM Albumin 4.4 3.2 - 5.2 CERNER gm/dL MILLENNIUM AST 20 0 - 39 CERNER unit/L MILLENNIUM ALT 23 0 - 55 CERNER unit/L MILLENNIUM Alk Phos 66 40 - 120 CERNER unit/L MILLENNIUM Total 0.3 0.2 - 1.3 CERNER Bilirubin mg/dL MILLENNIUM Bili, Direct 0.1 0.0 - 0.3 CERNER mg/dL MILLENNIUM Specimen Anatomical Collection Method Collection Time Receive d Time (Source) Location / / Volume Laterality Blood specimen 08/27/2010 1:44 PM 011 2:11 (specimen) EDT PM EDT Rj Johns MD CHEMISTRY ORDERABLES Performing Organization Address City/State/ZIP Code Phon e Number [place] [phone] [facility] documented in this encounter Visit Diagnoses Diagnosis Arrhythmia - Primary Cardiac dysrhythmia, unspecified documented in this encounter Care Teams Church History Professor Relationship Specialty Start Date End Date Vasquez Maharaj DO PCP - General 03/09/10 09/26/[address] [place] [address] documented as of this encounter
--- OUTSIDE RECORDS SUMMARY | 2021-11-30 11:54 | XMS_ITS | Encounter Summary ---
:1955 Author Organization [facility] Address [facility] [place] [address] Care Team Providers Name Role Phone Vasquez Maharaj DO Primary Care Provider Reason for Visit Reason Onset Date Comments Other 01/12/2015 LAB ORDERS Encounter Details Date Type Department Care Team Description 01/12/2015 Telephone Cardiology at [facility] Pascual Alvarenga PA Other (LAB ORDERS) [facility] [place] [phone] CARDIOLOGY DEPT. [phone] [place], [place] [address] (Wo rk) Social History Tobacco Use Types Packs/Day Years Used Date Former Smoker Cigarettes Quit: 04/17/18 89 Smokeless Tobacco: Former User Chew Q uit: 12/27/1994 Alcohol Use Standard Drinks/Week Comments Not Asked 0 (1 standard drink = 0.6 oz pure alcoho l) Sex Assigned at Date Recorded Not on file documented as of this encounter Miscellaneous Notes Telephone Encounter - Ni Multani - 01/12/2015 1:23 PM EDT Pascual, Please sign the attached flecainide surveillance lab orders. Mr. Mckeon is scheduled to see you on February 10, 2015. Thank You, Ni documented in this encounter Plan of Treatment Upcoming Encounters Date Type Specialty Care Team Description 02/10/2022 Office Visit Neurology Mariann Ivy MD [facility] DR NEUROLOGY DEPT [place] [address] (Wo rk) documented as of this encounter Results Magnesium (02/09/2015 2:28 PM EDT) athologist Signature Magnesium 0.86 0.69 - 1.07 CERNER mmol/L MILLENNIUM Specimen Anatomical Collection Method Collection Time Receive d Time (Source) Location / / Volume Laterality Blood specimen 02/09/2015 2:28 PM 015 2:40 (specimen) EDT PM EDT Resulting Agency Comment Spec In Lab Rj Johns MD CHEMISTRY ORDERABLES Performing Organization Address City/[facility] [place] [address] CERNER MILLENNIUM Hepatic Function Panel (02/09/2015 2:28 PM EDT) athologist Signature Total Protein 7.1 6.1 - 8.0 CERNER gm/dL MILLENNIUM Albumin 4.4 3.2 - 5.2 CERNER gm/dL MILLENNIUM AST 13 0 - 39 CERNER unit/L MILLENNIUM ALT 18 0 - 55 CERNER unit/L MILLENNIUM Alk Phos 61 40 - 120 CERNER unit/L MILLENNIUM Total 0.3 0.2 - 1.3 CERNER Bilirubin mg/dL MILLENNIUM Bili, Direct 0.1 0.0 - 0.3 CERNER mg/dL MILLENNIUM Specimen Anatomical Collection Method Collection Time Receive d Time (Source) Location / / Volume Laterality Blood specimen 02/09/2015 2:28 PM 015 2:40 (specimen) EDT PM EDT Resulting Agency Comment Spec In Lab Rj Johns MD CHEMISTRY ORDERABLES Performing Organization Address City/[facility] [place] [address] CERNER MILLENNIUM Basic Metabolic Panel (non-fasting) (02/09/2015 2:28 PM EDT) athologist Signature Glucose Lvl 122 65 - 199 CERNER mg/dL MILLENNIUM Comment: Diabetes: >=200 mg/dL plus symp toms BUN 19 10 - 20 mg/dL CERNER MILLENNIU M Creatinine 0.95 0.80 - 1.50 mg/dL CERNER MILL ENNIUM Comment: Please note that the pediatric reference intervals supplied above were not validated at [facility]. Results from pediatri c patients should be interpreted in conjunction to the patient's age, height and muscle mass. Sodium 141 135 - 145 mmol/L CERNER JENNI NIUM Potassium 4.1 3.5 - 5.0 mmol/L CERNER JENNI NIUM Comment: Please note: ??Patients with WBC >100,00 0 may have falsely elevated Potassium levels. ??For accurate Potassium quantif ication in these patients send serum separator tube (gold top) for subsequent determinations. ??Contact the Clinical Chemistry Laboratory if there are any qu estions. Chloride 103 98 - 107 mmol/L CERNER MILLENN IUM CO2 24 22 - 31 mmol/L CERNER MILLENNI UM Anion Gap 14 5 - 15 mmol/L CERNER MILLENNIU M Calcium 9.2 8.5 - 10.5 mg/dL CERNER JENNI NIUM Estimated GFR >60 >=60 CERNER MILLENNIU M Comment: This estimated GFR (eGFR) value was calc ulated using the MDRD equation which has been validated on patients between t he ages of 18 and 70. The MDRD should not be used to assess kidney function in patients < 18 years of age or in patients with extremes of body mass, or in patients with acute kidney failure. This value should be multiplied by 1.2 f or patients. For further information please copy and past e the following links into your internet browser. http://[employer]/DHnkdep http://[employer]/DHMCnkf Specimen Anatomical Collection Method Collection Time Receive d Time (Source) Location / / Volume Laterality Blood specimen 02/09/2015 2:28 PM 015 2:40 (specimen) EDT PM EDT Resulting Agency Comment Spec In Lab Rj Johns MD CHEMISTRY ORDERABLES Performing Organization Address City/State/ZIP Code Phon e Number [place] [phone] CERTRACI MILLENNIUM documented in this encounter Visit Diagnoses Diagnosis High risk medication use - Primary Encounter for long-term (current) use of other medications documented in this encounter Care Teams Invoice Control Clerk Relationship Specialty Start Date End Date Vasquez Maharaj DO PCP - General 03/09/10 09/26/[address] [place] [address] documented as of this encounter
--- OUTSIDE RECORDS SUMMARY | 2021-11-30 11:54 | XMS_ITS | Encounter Summary ---
:1955 Author Organization [facility] Address [facility] [place] [address] Care Team Providers Name Role Phone Vasquez Maharaj DO Primary Care Provider Reason for Visit Reason Comments Atrial Flutter Encounter Details Date Type Department Care Team Description 08/27/2010 [place] [facility] [place], Arrhythmia; [facility] SVT (supraventricular tachycardia); Drive [facility] [place] [address] CARDIOLOGY DEPT. [place] [id number] (Wo rk) Social History Tobacco Use Types Packs/Day Years Used Date Former Smoker Quit: 04/17/18 89 Alcohol Use Standard Drinks/Week Comments Not Asked 0 (1 standard drink = 0.6 oz pure alcoho l) Sex Assigned at Date Recorded Not on file documented as of this encounter Last Filed Vital Signs Vital Sign Reading Time Taken Comments Blood Pressure 100/70 08/27/2010 2:10 PM EDT Pulse 60 08/27/2010 2:10 PM EDT Temperature - - Respiratory Rate - - Oxygen Saturation - - Inhaled Oxygen Concentration - - Weight 116.3 kg (256 lb 8 oz) 08/27/2010 2:10 PM EDT Height - - Body Mass Index - - documented in this encounter Patient Instructions Patient InstructionsRj Johns MD - 08/27/2010 2:43 PM EDT Continue your current medications at their prescribed doses We will make routine follow up for you in the EP clinic in about 6 months documented in this encounter Progress Notes Rj Johns MD - 08/27/2010 2:22 PM EDT Clinical Cardiac Electrophysiology Clinic Follow up: Patient ID: Dario Mckeon is a 54 y.o. male. HPI Mr Mckeon is seen in the EP clinic for routine follow up. He was last seen in the clinic by Bebeto Foss in Dec 2009. Patient Active Problem List Diagnoses ??? SVT [...] Anxiety ??? Plantar fasciitis ??? Chest pain 07/25 Negative nuclear scan. ??? Scoliosis Interval History Since his last visit to the EP clinic, Mr Mckeon has been doing very well. He has had no more arrhythmia episodes, denies palpitations, lightheadedness, dizziness or shahab syncope. He does have some atypical left sided chest pain, that comes on at rest. He also has some SHERMAN, which he attributes to some weight gain over Winter - he does tell me that he can walk on the flat and 1 flight of stairs without concerns. Current outpatient prescriptions:aspirin 81 mg EC tablet, Take 81 mg by mouth daily. 81mg = 1 tablet, Disp: , Rfl: ; Qappehmmgdoqd-Knkxofoz-Mpbcva (CENTRUM SILVER) Tab, Take 1 tablet by mouth daily., Disp: , Rfl: ; ascorbic acid (VITAMIN C) 500 mg tablet, Take 500 mg by mouth daily. 500mg = 1 tablet , Disp: , Rfl: ; metoprolol succinate (TOPROL XL) 100 mg XL tablet, 50 MG = 1/2 Tablet(s), PO, Once daily, Disp: , Rfl: flecainide (TAMBOCOR) 150 mg tablet, 150 MG = 1 Tablet(s) PO Q12H, Disp: , Rfl: Review of Systems Constitutional: Negative. Cardiovascular: Positive for chest pain (atypical chest pain) and leg swelling (mild leg swelling). Negative for palpitations. Gastrointestinal: Negative. Genitourinary: Positive for difficulty urinating. Musculoskeletal: Positive for back pain. Objective: Physical Exam Constitutional: He appears well-developed and well-nourished. No distress. HENT: Head: Normocephalic. Eyes: Pupils are equal, round, and reactive to light. Neck: Normal range of motion. Neck supple. No JVD present. No thyromegaly present. Cardiovascular: Normal rate and normal heart sounds. Exam reveals no gallop. No murmur heard. Pulmonary/Chest: Effort normal. He has no wheezes. He exhibits no tenderness. Filed Vitals: 08/27/10 1410 BP: 100/70 Pulse: 60 ECG: Sinus drew, 56 bpm. IN 180ms, QRS 110ms, non specific inferior T wave changes Assessment and Plan: Doing well from the perspective of his atrial arrhythmias with no symptomatic recurrences. He feels well overall and has no complaints. Labs were performed today - results pending His exercise test will be performed later today Plan 1) Continue current meds 2) Routine follow up in clinic in 6 months documented in this encounter Miscellaneous Notes Miscellaneous - Emerson, Harvest Manager - 10/05/2010 3:23 PM EDT documented in this encounter Plan of Treatment Upcoming Encounters Date Type Specialty Care Team Description 02/10/2022 Office Visit Neurology Mariann Ivy MD [facility] [address] NEUROLOGY DEPT [place], [place] [address] (Wo rk) documented as of this encounter Procedures Procedure Name Priority Date/Time Associated Comments Diagnosis EKG 12-LEAD Routine 08/27/2010 2:20 PM Arrhythmia Results f or this EDT procedure are i n the results section. CREATININE Routine 08/27/2010 1:44 PM Arrhythmia Results f or this EDT procedure are i n the results section. BUN Routine 08/27/2010 1:44 PM Arrhythmia Results f or this EDT procedure are i n the results section. HEPATIC FUNCTION Routine 08/27/2010 1:44 PM Arrhythmia Resul ts for this PANEL EDT procedure are i n the results section. ELECTROLYTES PANEL Routine 08/27/2010 1:44 PM Arrhythmia Res ults for this EDT procedure are i n the results section. documented in this encounter Results EKG 12-LEAD [place] a rhythm strip needed?: No; Reason for Exam:: SVT (08/27/2010 2:20 PM EDT) Component Value Ref Range Test Analysis Performed Pathologis t Method Time At Signature Ventricular rate 56 BPM MUSE SYSTEM Atrial Rate 56 BPM MUSE SYSTEM P-R Interval 180 ms MUSE SYSTEM QRS Duration 108 ms MUSE SYSTEM Q-T Interval 444 ms MUSE SYSTEM QTC Calculated 428 ms MUSE SYSTEM (Bezet) Calculated P [place] 7 degrees MUSE SYSTEM Calculated R [place] -28 degrees MUSE SYSTEM Calculated T [place] 10 degrees MUSE SYSTEM INTERPRETATION Sinus bradycardia MUSE SY STEM Otherwise normal ECG When compared with ECG of 18-DEC-2009 13:52, No significant change was found Confirmed by MD GEORGETTE, EDAMELIA ([id number]) on 08/28/2010 11:53: 43 AM Specimen Anatomical Collection Method Collection Time Receive d Time (Source) Location / / Volume Laterality 08/27/2010 2:20 PM 1 EDT 11:53 AM EDT Rj Johns MD ECG ORDERABLES Performing Organization Address City/State/ZIP Code Phon e Number MUSE SYSTEM (ABNORMAL) Electrolyte panel (08/27/2010 1:44 PM EDT) P athologist Signature Sodium 142 135 - 145 [...] Organization Address City/State/[place] [address] CERNER MILLENNIUM Hepatic function panel (08/27/2010 1:44 PM EDT) P athologist Signature Total Protein 7.3 6.4 - [...] Johns MD CHEMISTRY ORDERABLES Performing Organization Address City/[facility]/ZIP Code Phon e Number [place] [phone] CERNER MILLENNIUM Creatinine, serum (08/27/2010 1:44 PM EDT) P [...] Organization Address City/State/ZIP Code Phon e Number [place] [phone] CERNER MILLENNIUM (ABNORMAL) BUN (08/27/2010 1:44 PM EDT) P athologist Signature BUN 22 (H) 10 - 20 CERNER mg/dL MILLENNIUM Specimen Anatomical Collection Method Collection Time Receive d Time (Source) Location / / Volume Laterality Blood specimen 08/27/2010 1:44 PM 011 2:11 (specimen) EDT PM EDT Rj Johns MD CHEMISTRY ORDERABLES Performing Organization Address City/State/Z[place] [address] [facility] documented in this encounter Visit Diagnoses Diagnosis Arrhythmia Cardiac dysrhythmia, unspecified SVT (supraventricular tachycardia) Other specified cardiac dysrhythmias Chest pain Chest pain, unspecified documented in this encounter Care Teams Highway Patrol Commander Relationship Specialty Start Date End Date Vasquez Maharaj DO PCP - General 03/09/10 09/26/[address] [place] [address] documented as of this encounter
--- OUTSIDE RECORDS SUMMARY | 2021-11-30 11:54 | XMS_ITS | Encounter Summary ---
:1955 [place] [address] Care Team Providers Name Role Phone NickoVasquez worley Primary Care Provider Reason for Visit Diagnostic Test (Routine) - Closed Specialty Diagnoses / Procedures Referred By Contact Refer red To Contact Radiology Diagnoses Tachycardia Pascual Alvarenga PA Radiology Procedures NM myocardial perfusion scan, pharmacologic [facility] [place] [address] [place] [address] Referral ID Status Reason Start Date Expiration Date Visits V isits Requested Authorized [id number] Closed Specialty 02/09/2015 02/09/2016 1 1 Service Requested Encounter Details Date Type Department Care Team Description 04/24/2015 Hospital Encounter Nuclear Medicine at [facility] [place] [address] Social History Tobacco Use Types Packs/Day Years [...] mouth 0 daily. 81mg = 1 tablet Hrrikdibsyyta-Hykjieok-Ernx Take 1 tablet by 0 in (CENTRUM SILVER) Tab mouth daily. ascorbic acid (VITAMIN C) Take 500 mg by 0 500 mg tablet mouth daily. 500mg = 1 tablet documented as of this encounter Plan of Treatment Upcoming Encounters Date Type Specialty Care Team Description 02/10/2022 Office Visit Neurology Mariann Ivy MD [facility] DR NEUROLOGY DEPT [place], [place] [address] (Wo rk) documented as of this encounter Procedures Procedure Name Priority Date/Time Associated Comments Diagnosis NM PHARMACOLOGIC Routine 04/24/2015 3:57 PM Tachycardia Resul ts for this STRESS AND REST EST procedure ar e in MYOCARDIAL PERFUSION the res ults section. documented in this encounter Visit Diagnoses Not on filedocumented in this encounter Administered Medications Inactive Administered Medications - up to 3 most recent administrations Medication Order MAR Action Action Date Dose Rate Site regadenoson (LEXISCAN) injection Given 04/24/2015 3:09 PM EST 0. 4 mg 0.4 mg 0.4 mg, Intravenous, ONCE, 1 dose, On Mon04/24/15 at 1545, Routine technetium (Tc-99m) sestamibi injection Given 04/24/2015 3:08 PM EST 38.7 mCi 38.7 mCi 38.7 mCi, Intravenous, ONCE PRN, 1 dose, Starting on Mon04/24/15 at 1506, Until Mon04/24/15 at 1508, Per Protocol, Routine documented in this encounter Care Teams Bindery Helper Relationship Specialty Start Date End Date Vasquez Maharaj DO PCP - General 03/09/10 09/26/[address] [place] [address] documented as of this encounter
--- OUTSIDE RECORDS SUMMARY | 2021-11-30 11:54 | XMS_ITS | Encounter Summary ---
:1955 Author Organization [facility] [place] [address] Care Team Providers Name Role Phone NickoVasquez worley Primary Care Provider Reason for Visit Reason Onset Date Comments Other 09/29/2011 Stress Test Order Encounter Details Date Type Department Care Team Description 09/28/2011 Follow-Up Cardiology at [facility] Thania Johns, SVT (supraventricular tachyc ardia) (Primary Dx); [facility] [place] [address] CARDIOLOGY DEPT. [place], [place] [address] (Wo rk) Social History Tobacco [...] Reading Time Taken Comments Blood Pressure 118/70 09/28/2011 3:02 PM EDT Lt arm si tting Pulse 64 09/28/2011 3:02 PM EDT Regular Temperature - - Respiratory Rate - - Oxygen Saturation 96% 09/28/2011 3:02 PM EDT Room ai r @ rest Inhaled Oxygen Concentration - - Weight 105.2 kg (232 lb) 09/28/2011 3:02 PM EDT Dressed Height 180.3 cm (5' 11) 09/28/2011 3:02 PM EDT Body Mass Index 32.36 09/28/2011 3:02 PM EDT documented in this encounter Patient Instructions Patient InstructionsSaThania velez MD - 09/28/2011 3:28 PM EDT We discussed your rapid rhythm problems and the need for stress test. Your lab tests today (kidney and liver function) look good; the ECG looks good. You should continue with your medicines as before You should make the following changes to your medicines : try to decrease the flecainide to 100 mg twice daily ( I have sent a prescription for this to [facility]) If you have more palpitations, please increase the dose back to 150 mg twice daily I will arrange for the following: A) Plain exercise stress test - we can arrange at [facility] I will arrange for a routine follow up in about 6-12 months time documented in this encounter Progress Notes Thania Johns MD - 09/28/2011 3:05 PM EDT Images from the original note were not included. Section of Cardiology/Cardiac Electrophysiology Clinical Cardiac Electrophysiology Follow Up Patient ID: Dario Mckeon is a 55 y.o. male. HPI Mr Juan is seen in the EP clinic for routine follow up. He underwent EPS and ablation of a right atrial atrial tachycardia in 2008 - since then he has been maintained on flecainide and has done well. Has been exercising - has lost 35 lbs. Knees feel better - does free weights, curls, crunches. Can climb a couple of flights of stairs without discomfort. No lightheadedness, or dizziness, no syncope or chest pain. Patient Active Problem List Diagnoses ??? SVT [...] ??? Chest pain 07/25 Negative nuclear scan. 08/2010 - Plain exercise treadmill test 6'38 7.9 Mets, no ECG changes ??? Scoliosis Review of Systems Constitutional: Negative. Musculoskeletal: Positive for arthritis. Gastrointestinal: Positive for constipation and diarrhea (occasional). Neurological: Headaches Objective: Physical Exam Constitutional: He is oriented to person, place, and time. He appears well- developed. No distress. Body mass index is 32.36 kg/(m^2). HENT: Head: Normocephalic. Mouth/Throat: No oropharyngeal exudate. Eyes: Pupils are equal, round, and reactive to light. No scleral icterus. Neck: Normal range of motion. No JVD present. No tracheal deviation present. No thyromegaly present. Cardiovascular: Normal rate and normal heart sounds. Exam reveals no gallop. No murmur heard. Pulmonary/Chest: Effort normal. No respiratory distress. He has no wheezes. He has no rales. Musculoskeletal: He exhibits no edema. Neurological: He is oriented to person, place, and time. ECG: Sinus rhythm, 59 bpm, CT 180 ms, QRS 120 ms, QT 440 ms Assessment and Plan: 55 y.o. man with a history of right sided atrial tachycardia , s/p ablation. He has been doing well with flecainide since then - recently broke up with his partner and since then has started to exercise more. We discussed aerobic versus isometric exercise and my preference that he should do more aerobic work. Otherwise, he is doing well - we discussed the idea of decreasing his flecainide - I think that thisis reasonable to try. Plan: 1) Will try and decrease flecainide to 100 mg twice daily (Rx sent to [facility]) 2) Will schedule for plain Exercise treadmill test at [facility] (results sent to here ) for screening (onflecainide) 3) Routine follow up in 6-12 months THANIA JOHNS MD No problem-specific visit notes found for this encounter. Recent Results (from the past 24 hour(s)) BASIC METABOLIC PANEL (NON-FASTING) Component Value Range ??? Glucose Lvl 102 60 - 199 (mg/dL) ??? BUN 19 10 - 20 (mg/dL) ??? Creatinine 0.86 0.80 - 1.50 (mg/dL) ??? Sodium 139 135 - 145 (mmol/L) ??? Potassium 3.8 3.5 - 5.0 (mmol/L) ??? Chloride 103 98 - 107 (mmol/L) ??? CO2 25 22 - 31 (mmol/L) ??? Anion Gap 11 5 - 15 (mmol/L) ??? Calcium 9.2 8.5 - 10.5 (mg/dL) ? ? Estimated GFR >60 >=60 HEPATIC FUNCTION PANEL Component Value Range ??? Total Protein 7.4 6.4 - 8.3 (gm/dL) ??? Albumin 4.6 3.2 - 5.2 (gm/dL) ??? AST 19 0 - 39 (unit/L) ??? ALT 15 0 - 55 (unit/L) ??? Alk Phos 59 40 - 120 (unit/L) ??? Total Bilirubin 0.4 0.2 - 1.3 (mg/dL) ??? Bili, Direct 0.1 0.0 - 0.3 (mg/dL) documented in this encounter Miscellaneous Notes Miscellaneous - Emerson Business Systems Architect - 10/17/2011 2:58 PM EDT documented in this encounter Plan of Treatment Upcoming Encounters Date Type Specialty Care Team Description 02/10/2022 Office Visit Neurology Mariann Ivy MD [facility] NEUROLOGY DEPT [place], [place] [address] (Wo rk) documented as of this encounter Procedures Procedure Name Priority Date/Time Associated Diagnosis Comme nts EKG 12-LEAD Routine 09/28/2011 3:08 PM SVT Results f or this EDT (supraventricular procedure are in tachycardia) the results section. HEPATIC FUNCTION Routine 09/28/2011 2:23 PM SVT Resul ts for this PANEL EDT (supraventricular procedure are in tachycardia) the results section. BASIC METABOLIC Routine 09/28/2011 2:23 PM SVT Result s for this PANEL (NON-FASTING) EDT (supraventricular pro cedure are in tachycardia) the results section. documented in this encounter Results EKG 12 Lead (09/28/2011 3:08 PM EDT) Component Value Ref Range Test Analysis Performed Pathologis t Method Time At Signature Ventricular rate 59 BPM MUSE SYSTEM Atrial Rate 59 BPM MUSE SYSTEM P-R Interval 174 ms MUSE SYSTEM QRS Duration 114 ms MUSE SYSTEM Q-T Interval 446 ms MUSE SYSTEM QTC Calculated 441 ms MUSE SYSTEM (Bezet) Calculated P [place] 24 degrees MUSE SYSTEM Calculated R [place] -35 degrees MUSE SYSTEM Calculated T [place] 16 degrees MUSE SYSTEM INTERPRETATION Sinus bradycardia MUSE SY STEM Left axis deviation Abnormal ECG When compared with ECG of 25-FEB-2011 13:11, No significant change was found Confirmed by MD Hernando, Oral George ([id number]) on 09/28/2011 3:47:41 PM Specimen Anatomical Collection Method Collection Time Receive d Time (Source) Location / / Volume Laterality 09/28/2011 3:08 PM 2 3:47 EDT PM EDT Thania Johns MD ECG ORDERABLES Performing Organization Address City/State/ZIP Code Phon e Number MUSE SYSTEM Hepatic Function Panel (09/28/2011 2:23 PM EDT) P athologist Signature Total Protein 7.4 6.4 - 8.3 CERNER gm/dL MILLENNIUM Albumin 4.6 3.2 - 5.2 C[place] gm/dL MILLENNIUM AST 19 0 - 39 [place] unit/L MILLENNIUM ALT 15 0 - 55 [place] unit/L MILLENNIUM Alk Phos 59 40 - 120 [place] unit/L MILLENNIUM Total 0.4 0.2 - 1.3 CERN[place] Bilirubin mg/dL MILLENNIUM Bili, Direct 0.1 0.0 - 0.3 CERNER mg/dL MILLENNIUM Specimen Anatomical Collection Method Collection Time Receive d Time (Source) Location / / Volume Laterality Blood specimen 09/28/2011 2:23 PM 012 2:28 (specimen) EDT PM EDT Resulting Agency Comment Spec In Lab Thania Johns MD CHEMISTRY ORDERABLES Performing Organization Address City/State/ZIP Code Phon e Number [place] [phone] CERNER MILLENNIUM Basic Metabolic Panel (non-fasting) (09/28/2011 2:23 PM EDT) P athologist Signature Glucose Lvl 102 60 - 199 CERNER mg/dL MILLENNIUM Comment: Diabetes: >=200 mg/dL plus symp toms BUN 19 10 - 20 mg/dL CERNER MILLENNIU M Creatinine 0.86 0.80 - 1.50 mg/dL CERNER MILL ENNIUM Comment: Please note that the pediatric reference intervals supplied above were not validated at [facility]. Results from pediatri c patients should be interpreted in conjunction to the patient's age, height and muscle mass. Sodium 139 135 - 145 mmol/L CERNER JENNI NIUM Potassium 3.8 3.5 - 5.0 mmol/L CERNER JENNI NIUM Comment: Please note: ??Patients with WBC >100,00 0 may have falsely elevated Potassium levels. ??For accurate Potassium quantif ication in these patients send serum separator tube (gold top) for subsequent determinations. ??Contact the Clinical Chemistry Laboratory if there are any qu estions. Chloride 103 98 - 107 mmol/L CERNER MILLENN IUM CO2 25 22 - 31 mmol/L CERNER MILLENNI UM [...] week). For patient s multiply eGFR by 1.2. The MDRD equation was developed using patients be tween the ages of 18 and 70 years. ?? The MDRD equation has not been validated for patients < 18 years of age and should not be used to assess renal function in the pediatric population. ??The MDRD eGFR equation will also overestimate the true GFR of patients above the age of 70. ??This overestimation is variable bu t increases with age. At present, NKDEP does NOT recommend usi [...] kidney disease. References: http://nkdep.nih.gov/resources/NKDEP_Sug gestn4Labs_0606_508.pdf http://www.kidney.org/professionals/kls/ pdf/faq_gfr.pdf Timothy K, Carrillo NA, Bryant AK, Cameron TS, Micheal AD, Joana JO. Relative performance of the MDRD and CKD-EPI equa tions for estimating glomerular filtration rate among patients with vari ed clinical presentations. Clin J Am Soc Nephrol;6:1963-72. Specimen Anatomical Collection Method Collection Time Receive d Time (Source) Location / / Volume Laterality Blood specimen 09/28/2011 2:23 PM 012 2:28 (specimen) EDT PM EDT Resulting Agency Comment Spec In Lab Thania Johns MD CHEMISTRY ORDERABLES Performing Organization Address City/State/[place] [address] HOSPITAL LABORATORY [facility] documented in this encounter Visit Diagnoses Diagnosis SVT (supraventricular tachycardia) - Velma campos Other specified cardiac dysrhythmias Chest pain Chest pain, unspecified documented in this encounter Care Teams Lotus Notes Developer Relationship Specialty Start Date End Date Vasquez Maharaj DO PCP - General 03/09/10 09/26/[address] [place] [address] documented as of this encounter
--- OUTSIDE RECORDS SUMMARY | 2021-11-30 11:54 | XMS_ITS | Encounter Summary ---
:1955 Author Organization [facility] Address [facility] [place] [address] Care Team Providers Name Role Phone Vasquez Maharaj DO Primary Care Provider Reason for Visit Reason Onset Date Comments Medication Refill 11/12/2012 Encounter Details Date Type Department Care Team Description 11/12/2012 Refill Cardiology at [facility] Rj Johns MD Medication Refill [facility] [place] [address] CARDIOLOGY DEPT. [phone] [place], [place] [address] (Wo rk) Social History Tobacco [...] 02/10/2022 Office Visit Neurology Mariann Ivy MD [facility] NEUROLOGY DEPT [place], [place] [address] (Wo rk) documented as of this encounter Visit Diagnoses Diagnosis SVT (supraventricular tachycardia) - Velma andres Other specified cardiac dysrhythmias documented in this encounter Care Teams Intensive Care Medicine Specialist Relationship Specialty Start Date End Date Vasquez Maharaj DO PCP - General 03/09/10 09/26/[address] [place] [address] documented as of this encounter
--- OUTSIDE RECORDS SUMMARY | 2021-11-30 11:54 | XMS_ITS | Encounter Summary ---
:1955 Author Organization [facility] [place] [address] Care Team Providers Name Role Phone Vasquez Maharaj Primary Care Provider Reason for Visit Diagnostic Test (Routine) - Closed Specialty Diagnoses / Procedures Referred By Contact Refer red To Contact Radiology Diagnoses Tachycardia Pascual Alvarenga PA Radiology Procedures NM myocardial perfusion scan, pharmacologic [facility] [place]OLOG[place] [address] [place] [address] Referral ID Status Reason Start Date Expiration Date Visits V isits Requested Authorized [id number] Closed Specialty 02/09/2015 02/09/2016 1 1 Service Requested Encounter Details Date Type Department Care Team Description 04/24/2015 Hospital Encounter Nuclear Medicine at [facility] Johns MD [facility] [address] [place]OLOG[place] [address] [place] [address] [phone] (Wo rk) Social History Tobacco Use Types [...] mouth 0 daily. 81mg = 1 tablet Dukssoxdturcf-Admsqupj-Wwzx Take 1 tablet by 0 in (CENTRUM SILVER) Tab mouth daily. ascorbic acid (VITAMIN C) Take 500 mg by 0 500 mg tablet mouth daily. 500mg = 1 tablet documented as of this encounter Plan of Treatment Upcoming Encounters Date Type Specialty Care Team Description 02/10/2022 Office Visit Neurology Mariann Ivy MD [facility] NEUROLOGY DEPT [place], [place] [address] (Wo rk) documented as of [...] change from prior study. Rj Johns MD [facility] [place] ORDERABLES documented in this encounter Visit Diagnoses Not on filedocumented in this encounter Care Teams Qa Test Lead Relationship Specialty Start Date End Date Vasquez Maharaj DO PCP - General 03/09/10 09/26/[address] [place] [address] documented as of this encounter
--- OUTSIDE RECORDS SUMMARY | 2021-11-30 11:54 | XMS_ITS | Encounter Summary ---
:1955 Author Organization [facility] [place] [address] Care Team Providers Name Role Phone Vasquez Maharaj DO Primary Care Provider Reason for Visit Reason Onset Date Comments Other 07/29/2011 Lab Order Encounter Details Date Type Department Care Team Description 07/29/2011 Telephone [place] [facility]j Johns MD Other (Lab Order) [facility] [place] [address] CARDIOLOGY DEPT. [phone] [place], [place] [address] (Wo rk) Social History Tobacco Use Types Packs/Day Years Used Date Former Smoker Quit: 04/17/18 89 Alcohol Use Standard Drinks/Week Comments Not Asked 0 (1 standard drink = 0.6 oz pure alcoho l) Sex Assigned at Date Recorded Not on file documented as of this encounter Miscellaneous Notes Telephone Encounter - Waleska Lopez - 07/29/2011 3:08 PM EDT Hi, Please sign the attached lab order. Thanks, Romelia documented in this encounter Plan of Treatment Upcoming Encounters Date Type Specialty Care Team Description 02/10/2022 Office Visit Neurology Mariann Ivy MD [facility] NEUROLOGY DEPT [place], [place] [address] (Wo rk) documented as of this encounter Results Hepatic Function Panel (09/28/2011 2:23 PM EDT) [...] EDT Resulting Agency Comment Spec In Lab jR Johns MD CHEMISTRY ORDERABLES Performing Organization Address City/State/[place] [address] CERNER MILLENNIUM Basic Metabolic Panel (non-fasting) (09/28/2011 2:23 PM EDT) athologist Signature Glucose Lvl 102 60 - 199 CERNER mg/dL MILLENNIUM Comment: Diabetes: >=200 mg/dL plus symp toms BUN 19 10 - 20 mg/dL CERNER MILLENNIU M Creatinine 0.86 0.80 - 1.50 mg/dL CERNER MILL ENNIUM Comment: Please note that the pediatric reference intervals supplied above were not validated at [facility]. Results from pediatri c patients should be [...] estions. Chloride 103 98 - 107 mmol/L SHALONDA MARTINESENN IUM CO2 25 22 - 31 mmol/L SHALONDA MARTINESENNI UM Anion Gap 11 5 - 15 mmol/L SHALONDA CERVANTESIU M Calcium 9.2 8.5 - 10.5 mg/dL SHALONDA MARTINESEN NIUM Estimated GFR >60 >=60 SHALONDA CERVANTESIU M Comment: The National Kidney Disease Education [...] disease. References: http://nkdep.nih.gov/resources/NKDEP_Sug gestn4Labs_0606_508.pdf http://www.kidney.org/professionals/kls/ pdf/faq_gfr.pdf Timothy Galindo, Carrillo NA, Bryant AK, Cameron TS, Micheal [...] Organization Address City/State/[place] [address] [facility] documented in this encounter Visit Diagnoses Diagnosis SVT (supraventricular tachycardia) - Velma campos Other specified cardiac dysrhythmias documented in this encounter Care Teams Final Assembler Boat Relationship Specialty Start Date End Date Vasquez Maharaj DO PCP - General 03/09/10 09/26/[address] [place] [address] documented as of this encounter
--- OUTSIDE RECORDS SUMMARY | 2021-11-30 11:54 | XMS_ITS | Encounter Summary ---
:1955 Author Organization [facility] Address [facility] [place] [address] Care Team Providers Name Role Phone Vasquez Maharaj DO Primary Care Provider Reason for Visit Reason Onset Date Comments Medication Refill 05/09/2013 Encounter Details Date Type Department Care Team Description 05/09/2013 [place]ill [place] [facility] Johns MD Medication Refill [facility] [place] [address] CARDIOLOGY DEPT. [phone] [place], [place] [address] (Wo rk) Social History Tobacco [...] 02/10/2022 Office Visit Neurology Mariann Ivy MD [facility] NEUROLOGY DEPT [place], [place] [address] (Wo rk) documented as of this encounter Visit Diagnoses Diagnosis SVT (supraventricular tachycardia) - Velma andres Other specified cardiac dysrhythmias documented in this encounter Care Teams Senior Construction Manager Relationship Specialty Start Date End Date Vasquez Maharaj DO PCP - General 03/09/10 09/26/[address] [place] [address] documented as of this encounter
--- OUTSIDE RECORDS SUMMARY | 2021-11-30 11:54 | XMS_ITS | Clinical Summary ---
:1955 Author Organization [facility] Address [facility] [address] [place] [address] Care Team Providers Name Role Phone Maynor Hunt APRN Primary Care Provider Allergies Active Allergy Reactions Severity Noted Date Comments Codeine Phosphate Hives Medium Morphine Sulfate Hives Medium Sulfa (Sulfonamide Antibiotics) Rash Medium Medications Medication Sig Dispensed Refills Start Date End Date Status aspirin 81 mg EC tablet Take 81 mg by 0 Active mouth daily. 81mg = 1 tablet Multivitamins-Minerals- Take 1 tablet by 0 Active Lutein (CENTRUM SILVER) mouth daily. Tab ascorbic acid (VITAMIN Take 500 mg by 0 Active C) 500 mg tablet mouth daily. 500mg = 1 tablet metoprolol succinate take 1 tablet by 90 tablet 3 04/20/2012 Active (TOPROL-XL) 50 mg 24 hr mouth once daily tabletIndications: SVT (supraventricular tachycardia) acetaminophen (TYLENOL) Take 1,000 mg by 0 Active 500 mg Tablet mouth every 6 hours as needed for Pain. flecainide (TAMBOCOR) TAKE 1 TABLET 180 tablet 3 03/26/2015 Active 100 mg Tablet TWICE A DAY Active Problems Problem Noted Date SVT (supraventricular tachycardia) 08/27/2010 Overview: -At least 4 episodes of SVT: 1 year ago, 6 months ago, 03/05/09, and 03/17/09 (on metoprolol 25 mg BID for most recent episode). Symptoms during SVT include palpitations and near-syncope (one episode bro ught pt to his knees); some SVT in [facility] was asymptomatic. The SVT CL is [...] and flecainide. -If repeat ablation is considered, eder aguilera perform with 3-D activation mapping and general anesthesia for patient comfort (significant shoulder pain during ablation). -Echo 02/27/09 --> EF 70%, concentric L VH, left atrium mildly enlarged, normal aortic and mitral valves, no pericardial effusion. Anxiety 08/27/2010 Plantar fasciitis 08/27/2010 Chest pain Overview: 07/25 Negative nuclear scan. 08/2010 - Plain exercise treadmill test 6 '38 7.9 Mets, no ECG changes Scoliosis Encounters Date Type Specialty Care Team Description 09/27/2021 Transcribe Orders Primary Care Maynor Hunt, Lavell t frontal lobe STATEMENT SERVICES REPRESENTATIVE punctate hemorr laurel from Last 3 Months Immunizations Name Administration Dates Next Due Td, adult 04/05/2006 Social History Tobacco Use Types Packs/Day Years [...] (273 lb) 02/09/2015 3:15 PM EDT Height 180.3 cm (5' 11) 05/27/2013 10:50 AM EST Body Mass Index 38.08 05/27/2013 10:50 AM EST Plan of Treatment Upcoming Encounters Date Type Specialty Care Team Description 02/10/2022 Office Visit Neurology Mariann Ivy MD [facility] NEUROLOGY DEPT [place], [place] [address] (Wo rk) Health Maintenance Due Date Last Done Comments Covid-19 Vaccine (#1) 11/03/1960 Hepatitis C Screening 11/03/1973 Lipid Screening 11/03/1973 Tdap adult 11/03/1974 Colonoscopy 11/03/2000 Zoster vaccine (1 of 2) 11/03/2005 Advance Directive 11/03/2010 Tetanus vaccine 04/05/2016 04/05/2006 Pneumoccocal Vaccine: 65+ (1 - PCV) 11/03/2020 Influenza (Flu) vaccine (1 of 1 - Influenza standard 12/16/2021 series) Procedures Procedure Name Priority Date/Time Associated Diagnosis Comme nts LAB SCAN 09/19/2021 12:00 AM Results for this EDT procedure are i n the results section . from Last 3 Months Results SCAN DOC: LAB (09/19/2021 12:00 AM EDT) Narrative This result has an attachment that is no t available. Unknown MEDIA MGR SCAN EXT ORDR/RSLT from Last 3 Months Insurance Payer Benefit Plan / Subscriber ID Effective Phone Address T ype Group Dates MEDICARE MEDICARE PART [id number] 2021-Prese [id number] [place] [address] [facility] BCBS [place] [facility] [id number] 2021-Prese [phone] [address] [place] [id number] [address] (Home) [place] [address] (Work) Care Teams Vessel Crew Member Relationship Specialty Start Date End Date Maynor Hunt, STATEMENT SERVICES REPRESENTATIVE PCP - General Family Medicine 09/27/[address] [place] [address]
--- OUTSIDE RECORDS SUMMARY | 2021-11-30 11:54 | XMS_ITS | Encounter Summary ---
:1955 [place] [address] Care Team Providers Name Role Phone Vasquez Maharaj DO Primary Care Provider Encounter Details Date Type Department Care Team Description 04/24/2015 Hospital Encounter [place] [address] Social History Tobacco Use Types Packs/Day [...] mouth 0 daily. 81mg = 1 tablet Dcwhfoodubebz-Filssvro-Foao Take 1 tablet by 0 in (CENTRUM SILVER) Tab mouth daily. ascorbic acid (VITAMIN C) Take 500 mg by 0 500 mg tablet mouth daily. 500mg = 1 tablet documented as of this encounter Plan of Treatment Upcoming Encounters Date Type Specialty Care Team Description 02/10/2022 Office Visit Neurology Mariann Ivy MD [facility] NEUROLOGY DEPT [place], [place] [address] (Wo rk) documented as of this encounter Procedures Procedure Name Priority Date/Time Associated Diagnosis Comme nts NUCLEAR PHARMACOLOGIC Routine 04/24/2015 3:21 PM Tachycardia STRESS CARDIOLOGY EST documented in this encounter Results Nuclear Pharmacologic Stress Cardiology (04/24/2015 3:21 PM EST) Specimen (Source) Anatomical Location Collection Method / Collectio n Time Received Time / Laterality Volume Narrative This result has an attachment that is no t available. Rj Johns MD CARDIAC SERVICES ORDERABLES documented in this encounter Visit Diagnoses Diagnosis Tachycardia Tachycardia, unspecified documented in this encounter Care Teams Tissue Technician Relationship Specialty Start Date End Date Vasquez Maharaj DO PCP - General 03/09/10 09/26/[address] [place] [address] documented as of this encounter
--- OUTSIDE RECORDS SUMMARY | 2021-11-30 11:54 | XMS_ITS | Encounter Summary ---
:1955 Author Organization [employer] Address [facility] [place] [address] Care Team Providers Name Role Phone Vasquez Maharaj DO Primary Care Provider Reason for Visit Reason Onset Date Comments Medication Refill 04/30/2013 Encounter Details Date Type Department Care Team Description 04/30/2013 Refill Cardiology at [facility] [place] Rj Johns MD Medication Refill [facility] [place] [address] CARDIOLOGY DEPT. [phone] [place], [place] [address] (Wo rk) Social History Tobacco [...] Visit Neurology Mariann Ivy MD [facility] NEUROLOGY DEPT [place], [place] [address] (Wo rk) documented as of this encounter Visit Diagnoses Diagnosis SVT (supraventricular tachycardia) - Velma andres Other specified cardiac dysrhythmias documented in this encounter Care Teams [employer] Hazmat Tanker Driver Relationship Specialty Start Date End Date Vasquez Maharaj DO PCP - General 03/09/10 09/26/[address] [place] [address] documented as of this encounter
--- OUTSIDE RECORDS SUMMARY | 2021-11-30 11:54 | XMS_ITS | Encounter Summary ---
:1955 Author Organization [facility] Address [facility] [place] [address] Care Team Providers Name Role Phone Vasquez Maharaj DO Primary Care Provider Reason for Visit Reason Comments Medication Refill Encounter Details Date Type Department Care Team Description 09/02/2013 [place] [facility] [place] Johns MD Medication Refill [facility] [place] [address] CARDIOLOGY DEPT. [phone] [place], [place] [address] (Wo rk) Social History Tobacco [...] Neurology Mariann Ivy MD [facility] NEUROLOGY DEPT [place], [place] [address] (Wo rk) documented as of this encounter Visit Diagnoses Diagnosis SVT (supraventricular tachycardia) - Velma andres Other specified cardiac dysrhythmias documented in this encounter Care Teams Pump Tester Relationship Specialty Start Date End Date Vasquez Maharaj DO PCP - General 03/09/10 09/26/[address] [place] [address] documented as of this encounter
--- OUTSIDE RECORDS SUMMARY | 2021-11-30 11:54 | XMS_ITS | Encounter Summary ---
:1955 Demographics Home Phone Preferred Language Unknown Marital Status Unknown Restorationism Affiliation Unknown Race Unknown Ethnic Group Unknown Author Organization [facility] Address [address] [place] [address] Care Team Providers Name Role Phone Unavailable Primary Care Provider Unavailable Encounter Details Date Type Department Care Team Description 08/27/2021 Lab Requisition [facility] Outr Resulting Lab, Pathology & Laboratory Provider [facility] [address] [place] [address] Social History Tobacco Use Types Packs/Day Years Used Date Never Assessed Sex Assigned at Date Recorded Not on file documented as of this encounter Plan of Treatment Not on filedocumented as of this encounter Procedures Procedure Name Priority Date/Time Associated Comments Diagnosis PSA TOTAL, Routine 08/27/2021 8:52 EDT Results for this DIAGNOSTIC procedure are i n the results section. documented in this encounter Results PSA TOTAL, DIAGNOSTIC (08/27/2021 8:52 EDT) Pathologist Sig nature PSA 1.1 <=4.5 ng/mL [facility] Specimen Blood - Venous blood (substance) Narrative [facility] - 08/27/2021 22:08 EDT NOTE: Serum PSA concentration should not be in terpreted as absolute evidence for the presence or absence of malignant disease. Assayed on Siemens ADVIA Centaur XPT usi ng chemiluminescent technology.??Values obtained by using different assay methods cannot be used interchangeably. Performing Organization Address City/State/ZIP Code Phon e Number [facility] [address] [place] [address] SERVICES documented in this encounter Visit Diagnoses Not on filedocumented in this encounter
--- OUTSIDE RECORDS SUMMARY | 2021-11-30 11:54 | XMS_ITS | Encounter Summary ---
:1955 Author Organization [place] [address] Care Team Providers Name Role Phone Vasquez Maharaj DO Primary Care Provider Reason for Visit Reason Comments Medication Refill Encounter Details Date Type Department Care Team Description 04/15/2011 Refill Cardiology at [facility] Bebeto Foss, Medication Refill [facility] [place] [address] [facility] [phone] CARDIOLOGY DEPT. [place], [place] [address] (Wo rk) Social History Tobacco [...] 02/10/2022 Office Visit Neurology Mariann Ivy MD [facility] NEUROLOGY DEPT [place], [place] [address] (Wo rk) documented as of this encounter Visit Diagnoses Diagnosis SVT (supraventricular tachycardia) - Velma andres Other specified cardiac dysrhythmias documented in this encounter Care Teams Transportation Museum Helper Relationship Specialty Start Date End Date Vasquez Maharaj DO PCP - General 03/09/10 09/26/[address] [place], [place] [id number] documented as of this encounter
--- OUTSIDE RECORDS SUMMARY | 2021-11-30 11:54 | XMS_ITS | Encounter Summary ---
:1955 Author Organization [facility] [place] [address] Care Team Providers Name Role Phone NickoVasquez worley Primary Care Provider Encounter Details Date Type Department Care Team Description 05/27/2013 Follow-Up Cardiology at [facility] jR Johns, Paroxysmal SVT [facility] (supraventricular Drive [facility] tachycardia) ([place] [address] [address] [address]) [phone] CARDIOLOGY DEPT. [place], [place] [address] (Wo rk) Social History Tobacco [...] Sign Reading Time Taken Comments Blood Pressure 124/70 05/27/2013 10:50 AM EST Pulse 66 05/27/2013 10:50 AM EST Temperature - - Respiratory Rate - - Oxygen Saturation 96% 05/27/2013 10:50 AM EST Inhaled Oxygen Concentration - - Weight 120.7 kg (266 lb) 05/27/2013 10:50 AM EST Height 180.3 cm (5' 11) 05/27/2013 10:50 AM EST Body Mass Index 37.1 05/27/2013 10:50 AM EST documented in this encounter Patient Instructions Patient InstructionsSaRj velez MD - 05/27/2013 11:18 AM EST Images from the original note were not included. It was good to see you in the Cardiac Electrophysiology Clinic today. We discussed the arrhythmia, the need for a stress test, and the possibility for sleep apnea You should continue with your medicines as before - I made no changes to your medicines today I will arrange for the following: A) Stress test B) Sleep clinic appointment I will arrange for a routine follow up in about 12 months time For any questions, call my office: [phone] To access your health care information, go to the web at: [email or web address] (you will need to register) For educational materials: [email or web address] Rj ALVAREZ.[facility], Clinical Cardiac Electrophysiology, [facility], [facility] A Healthy Heart: After Your Visit Your Care Instructions Heart disease occurs when the vessels that supply oxygen-rich blood to your heart become narrow or blocked. A heart attack happens when blood flow is completely blocked. A high-fat diet, smoking, and other factors increase the risk of heart disease. Abnormal heart rhythms can occur in the presence and absence of other heart disease. You can do lots of things to keep your heart healthy. It may not be easy, but you can change your diet, exercise more, and quit smoking. These steps really work to lower your chance of heart disease. Follow-up care is a sandoval part of your treatment and safety. Be sure to make and go to all appointments, and call your doctor if you are having problems. It???s also a good idea to know your test resultsand keep a list of the medicines you take. How can you care for yourself at home? Diet ?? Use less salt when you cook and eat. This helps lower your blood pressure. Taste food before salting. Add only a little salt when you think you need it. With time, your taste buds will adjust to less salt. ?? Eat fewer snack items, fast foods, canned soups, and other high-salt, high- fat, processed foods. ?? Read food labels and try to avoid saturated and trans fats. They increase your risk of heart disease by raising cholesterol levels. ?? Limit the amount of solid fat--butter, margarine, and shortening--you eat. Use olive, peanut, or canola oil when you cook. Bake, broil, and steam foods instead of frying them. ?? Eating fish can lower your risk for heart disease. Eat at least 2 servings of fish a week. [place], mackerel, sorenson, sardines, and chunk light tuna are very good choices. These fish contain omega-3fatty acids. ?? Eat a variety of fruit and vegetables every day. Dark green, deep orange, red, or yellow fruits and vegetables are especially good for you. Examples include spinach, carrots, peaches, and berries. You may need to eat these in moderation if you are taking coumadin or warfarin ?? Foods high in fiber can reduce your cholesterol and provide important vitamins and minerals. High-fiber foods include whole-grain cereals and breads, oatmeal, beans, brown rice, citrus fruits, and apples. ?? Limit drinks and foods with added sugar. These include candy, desserts, and soda pop. Lifestyle changes ?? If your doctor recommends it, get more exercise. Walking is a good choice. Bit by bit, increase the amount you walk every day. Try for at least 30 minutes on most days of the week. You also may wantto swim, bike, or do other activities. ?? Do not smoke. If you need help quitting, talk to your doctor about stop- smoking programs and medicines. These can increase your chances of quitting for good. Quitting smoking may be the most important step you can take to protect your heart. It is never too late to quit. You will get health benefits right away. ?? Limit alcohol to 2 drinks a day for men and 1 drink a day for women. Too much alcohol can cause health problems. Medicines ?? Take your medicines exactly as prescribed. Call your doctor if you think you are having a problemwith your medicine. ?? If your doctor recommends aspirin, take the amount directed each day. Make sure you take aspirin and not another kind of pain reliever, such as acetaminophen (Tylenol). If you take ibuprofen (such as Advil or Motrin) for other problems, take aspirin at least 2 hours before taking ibuprofen. When should you call for help? Call 911 if you have symptoms of a heart attack. These may include: ?? You have chest pain or pressure. This may occur with: ?? Chest pain or pressure, or a strange feeling in the chest. ?? Sweating. ?? Shortness of breath. ?? Pain, pressure, or a strange feeling in the back, neck, jaw, or upper belly or in one or both shoulders or arms. ?? Lightheadedness or sudden weakness. ?? A fast or irregular heartbeat. After you call 911, the vacuum metalizer operator may tell you to chew 1 adult-strength or 2 to 4 low-dose aspirin. Wait for an ambulance. Do not try to drive yourself. Watch closely for changes in your health, and be sure to contact your doctor if: ?? Your symptoms are slowly getting worse. ?? You do not get better as expected. Where can you learn more? Visit our health information library at [email or web address] [email or web address]. You can also view health information on [employer], your personal patient account. Log in or sign up today. Enter F075 in the search box to learn more about A Healthy Heart: After Your Visit. ?? [id number] [place], [place]. documented in this encounter Progress Notes Rj Johns MD - 05/27/2013 11:02 AM EST Section of Cardiology/Cardiac Electrophysiology Clinical Cardiac Electrophysiology Follow Up Patient ID: Dario Mckeon is a 57 y.o. male. HPI Mr Juan is seen in the EP clinic for routine follow up. He underwent EPS and ablation of a right atrial atrial tachycardia in 2008 - since then he has been maintained on flecainide and has done well. He remains reasonably active - he is eating more, but acknowledges that he is less active than he was about a year ago. He has some limitations from the point of view of his back - with back pain and has subsequently needed steroid shots. He had slipped and fallen on his left side No lightheadedness, dizziness, chest pain. 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 Recent bronchitis - needed ABx and had CT scan - he has pretty much recovered from this. He has gained a fair amount of weight. He snores, seems to have apnea (confirmed with partner), sleepy during the day. Has not fallen asleep at the wheel though. Patient Active Problem List Diagnosis ??? SVT (supraventricular tachycardia) -At least 4 [...] 7.9 Mets, no ECG changes ??? Scoliosis Current Outpatient Prescriptions Medication Sig Dispense Refill ??? flecainide (TAMBOCOR) 100 mg tablet Take 1 tablet by mouth 2 times daily. 180 tablet 0 ??? metoprolol succinate (TOPROL-XL) 50 mg 24 hr tablet take 1 tablet by mouth once daily 90 tablet 3 ??? ibuprofen (ADVIL;MOTRIN) 200 mg tablet Take 200 mg by mouth every 6 hours as needed. Indications: Pain ??? aspirin 81 mg EC tablet Take 81 mg by mouth daily. 81mg = 1 tablet ??? Kiamahqyltfqg-Evvfgtpx-Jxgxjp (CENTRUM SILVER) Tab Take 1 tablet by mouth daily. ??? ascorbic acid (VITAMIN C) 500 mg tablet Take 500 mg by mouth daily. 500mg = 1 tablet Review of Systems Constitution: Positive for weight gain. Musculoskeletal: Positive for arthritis and back pain. Gastrointestinal: Positive for constipation and diarrhea (occasional). Neurological: Headaches Objective: Physical Exam Constitutional: He is oriented to person, place, and time. He appears well- developed. No distress. Body mass index is 37.12 kg/(m^2). HENT: Head: Normocephalic. Mouth/Throat: No oropharyngeal [...] He has no rales. Musculoskeletal: He exhibits edema (mild left lower extremity edema). Neurological: He is oriented to person, place, and time. I have personally reviewed the ECG: [facility] 05/08/2013 Sinus rhythm, 52 bpm, MT 180 ms, QRS 80 ms, QT 420 ms, no brugada, or pre-excitation, no Long QT Labs tests reviewed (will scan into system) Assessment and Plan: 57 y.o. man with a history of right sided atrial tachycardia , s/p ablation, maintained on flecainide. He has been doing well, with no recurrent arrhythmias, even on a lower dose of flecainide, He has gained more weight - and now probably has sleep apnea based on his symptoms and clinical exam. His ECG and labs are stable from the perspective of flecainide follow up. We discussed weight loss, exercise and a sleep clinic appointment. He will need a stress test - likely will need nuclear testing as he does not think he could walk that far on a treadmill. Plan: 1) Continue current medicines 2) Encouraged to lose weight 3) Will arrange for nuclear stress test for flecainide screening 4) Will arrange for a sleep clinic appointment RJ JOHNS MD 25 minutes of this 30 minute encounter were spent in counselling ( discussion about flecainide, arrhythmias, stress test, sleep apnea ) documented in this encounter Miscellaneous Notes Miscellaneous - Provider, Scanning - 05/28/2013 10:20 AM EST documented in this encounter Plan of Treatment Upcoming Encounters Date Type Specialty Care Team Description 02/10/2022 Office Visit Neurology Mariann Ivy MD [facility] NEUROLOGY DEPT [place], [place] [address] (Wo rk) documented as of this encounter Visit Diagnoses Diagnosis Paroxysmal SVT (supraventricular tachyca rdia) - Primary Paroxysmal supraventricular tachycardia documented in this encounter Care Teams Metal Fabricating Supervisor Relationship Specialty Start Date End Date Vasquez Maharaj DO PCP - General 03/09/10 09/26/[address] [place] [address] documented as of this encounter
--- OUTSIDE RECORDS SUMMARY | 2021-11-30 11:54 | XMS_ITS | Encounter Summary ---
:1955 Author Organization [facility] Address [facility] [place] [address] Care Team Providers Name Role Phone Vasquez Maharaj DO Primary Care Provider Encounter Details Date Type Department Care Team Description 02/22/2011 Orders Only Cardiology at [facility] Bebeto Foss SVT (supraventricular [facility], CHINESE HERBALIST tachycardia) (Primary Drive [facility] [place]x) [place] [address] CARDIOLOGY DEPT. [place], [place] [address] Social History Tobacco Use Types [...] Mariann Ivy MD [facility] NEUROLOGY DEPT [place], [place] [address] (Wo rk) documented as of this encounter Results EKG 12 Lead (09/28/2011 3:08 PM EDT) Component Value Ref Range Test Analysis Performed Pathologis t Method Time At Signature Ventricular rate 59 BPM MUSE SYSTEM Atrial Rate 59 BPM MUSE SYSTEM P-R Interval 174 ms MUSE SYSTEM QRS Duration 114 ms MUSE SYSTEM Q-T Interval 446 ms MUSE SYSTEM QTC Calculated 441 ms MUSE SYSTEM (Bezet) Calculated P [place] 24 degrees MUSE SYSTEM Calculated R [place] -35 degrees MUSE SYSTEM Calculated T [place] 16 degrees MUSE SYSTEM INTERPRETATION Sinus bradycardia MUSE SY STEM Left axis deviation Abnormal ECG When compared with ECG of 25-FEB-2011 13:11, No significant change was found Confirmed by MD Hernando, Oral George ([id number]) on 09/28/2011 3:47:41 PM Specimen Anatomical Collection Method Collection Time Receive d Time (Source) Location / / Volume Laterality 09/28/2011 3:08 PM 2 3:47 EDT PM EDT Rj Johns MD ECG ORDERABLES Performing Organization Address City/State/ZIP Code Phon e Number MUSE SYSTEM Basic Metabolic Panel (non-fasting) (02/25/2011 12:49 PM [...] Organization Address City/State/ZIP Code Phon e Number [address] LABORATORY [facility] documented in this encounter Visit Diagnoses Diagnosis SVT (supraventricular tachycardia) - Velma campos Other specified cardiac dysrhythmias documented in this encounter Care Teams Program Director [employer] Relationship Specialty Start Date End Date Vasquez Maharaj DO PCP - General 03/09/10 09/26/[address] [place] [address] documented as of this encounter
--- OUTSIDE RECORDS SUMMARY | 2021-11-30 11:54 | XMS_ITS | Encounter Summary ---
:1955 Author Organization [facility] [place] [address] Care Team Providers Name Role Phone Vasquez Maharaj DO Primary Care Provider Encounter Details Date Type Department Care Team Description 08/26/2010 Abstract Cardiology at [facility] Shayna Johnson, [place] [address] Social History Tobacco Use Types Packs/Day Years Used Date Never Assessed Sex Assigned at Date Recorded Not on file documented as of this encounter Plan of Treatment Upcoming Encounters Date Type Specialty Care Team Description 02/10/2022 Office Visit Neurology Mariann Ivy MD [facility] DR NEUROLOGY DEPT [place], [place] [address] (Wo rk) documented as of this encounter Visit Diagnoses Not on filedocumented in this encounter Care Teams Ice Plant Operator Relationship Specialty Start Date End Date Vasquez Maharaj DO PCP - General 03/09/10 09/26/[address] [place] [address] documented as of this encounter
--- OUTSIDE RECORDS SUMMARY | 2021-11-30 11:54 | XMS_ITS | Encounter Summary ---
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 Maynor Hunt APRN [facility] [address] [address] [facility] 1 [place], [place] [address] [place] [phone] Fax: Referral ID Status Reason Start Expiration Visits Visits Date Date Requested Authorized [id number] Authorized Consult, 09/27/2021 09/27/2022 6 6 Test & Treat PCP Updated and/or Approved Encounter Details Date Type Department Care Team Description 09/27/2021 Transcribe Orders eDH Incoming Maynor Hunt Righ t frontal lobe Referrals SUB ASSEMBLY TEAM WORKER punctate hemorrhage [phone] [place] [id number] Social History Tobacco Use Types Packs/Day Years [...] Visit Neurology Mariann Ivy MD [facility] NEUROLOGY DEPT [place], [place] [address] (Wo rk) Scheduled Referrals Name Type Priority Associated Diagnoses Order S chedule Referral to Outpatient Referral Routine Right frontal lobe Or dered: Neurology punctate hemorrhage 09/28/19 documented as of this encounter Visit Diagnoses Diagnosis Right frontal lobe punctate hemorrhage Intracerebral hemorrhage documented in this encounter Care Teams Chairman Of The Board Relationship Specialty Start Date End Date Maynor Hunt, SUB ASSEMBLY TEAM WORKER PCP - General Family Medicine 09/27/[address] [place] [address] documented as of this encounter
--- OUTSIDE RECORDS SUMMARY | 2021-11-30 11:54 | XMS_ITS | Encounter Summary ---
:1955 Author Organization [place] [address] Care Team Providers Name Role Phone Vasquez Maharja Primary Care Provider Encounter Details Date Type Department Care Team Description 08/27/2010 Hospital Encounter Non-Invasive Cardiology Atrial flutter; Lab [facility] Tachycard ia; [facility] Atrial [place] [address] Social History Tobacco Use Types Packs/Day Years Used Date Former Smoker Quit: 04/17/18 89 Alcohol Use Standard Drinks/Week Comments Not Asked 0 (1 standard drink = 0.6 oz pure alcoho l) Sex Assigned at Date Recorded Not on file documented as of this encounter Medications at Time of Discharge Medication Sig Dispensed Refills Start Date End Date aspirin 81 mg EC tablet Take 81 mg by mouth 0 daily. 81mg = 1 tablet Meqpnmlfqsuzl-Kjhkvvku-Ro Take 1 tablet by 0 tein (CENTRUM SILVER) Tab mouth daily. ascorbic acid (VITAMIN C) Take 500 mg by mouth 0 500 mg tablet daily. 500mg = 1 tablet metoprolol succinate 50 MG = 1/2 0 05/03/201004/2010 (TOPROL XL) 100 mg XL Tablet(s), PO, Once tablet daily flecainide (TAMBOCOR) 150 150 MG = 1 Tablet(s) 0 04/06/2010 04/15/2011 mg tablet PO Q12H documented as of this encounter Plan of Treatment Upcoming Encounters Date Type Specialty Care Team Description 02/10/2022 Office Visit Neurology Mariann Ivy MD [facility] NEUROLOGY DEPT [place], [place] [address] (Wo rk) documented as of this encounter Procedures Procedure Name Priority Date/Time Associated Diagnosis Comme nts STRESS TEST, EXERCISE Routine 08/27/2010 3:39 PM EDT Atr ial flutter (TREADMILL) Atrial tachycardia documented in this encounter Results Stress Test, Exercise (Treadmill) (08/27/2010 3:39 PM EDT) Specimen (Source) Anatomical Location Collection Method / Collectio n Time Received Time / Laterality Volume Narrative This result has an attachment that is no t available. Rj Johns MD CARDI[facility] SERVICES ORDERABLES documented in this encounter Visit Diagnoses Diagnosis Atrial flutter Tachycardia Tachycardia, unspecified Atrial tachycardia Other specified cardiac dysrhythmias documented in this encounter Care Teams Chain Carrier Relationship Specialty Start Date End Date Vasquez Maharaj DO PCP - General 03/09/10 09/26/[address] [place] [address] documented as of this encounter
--- OUTSIDE RECORDS SUMMARY | 2021-11-30 11:54 | XMS_ITS | Clinical Summary ---
:1955 Demographics Home Phone Preferred Language Unknown Marital Status Unknown Gnosticism Affiliation Unknown Race Unknown Ethnic Group Unknown Author Organization [facility] Address [address] [place] [id number] Care Team Providers Name Role Phone Unavailable Primary Care Provider Unavailable Encounters Date Type Specialty Care Team Description 11/16/2021 Lab Requisition Clinical Laboratory Outr Resulting Lab , Provider from Last 3 Months Social History Tobacco Use Types Packs/Day Years Used Date Never Assessed Sex Assigned at Date Recorded Not on file Plan of Treatment Health Maintenance Due Date Last Done Comments Hepatitis C Screen 1955 COVID-19 Vaccine (1) 11/03/1960 Fall Risk Screening 11/03/2020 Procedures Procedure Name Priority Date/Time Associated Diagnosis Comme nts FECAL BACTERIAL Routine 11/16/2021 18:45 Results for this PATHOGENS BY PCR EDT procedure a re in the results section. from Last 3 Months Results FECAL BACTERIAL PATHOGENS BY PCR (11/16/2021 18:45 EDT) Pathologist Sig nature Salmonella PCR Negative Negative [facility] Shigella/Enteroinvasive Negative Negative [facility]. [facility] HN LAB CAMPYLOBACTER PCR Negative Negative [facility] ER [facility] Shiga Toxin PCR Negative Negative [facility] Specimen Feces - Specimen from rectum (specimen) Performing Organization Address City/State/ZIP Code Phon e Number [facility] [address] [place] [address] SERVICES from Last 3 Months
--- OUTSIDE RECORDS SUMMARY | 2021-11-30 11:54 | XMS_ITS | Encounter Summary ---
:1955 Author Organization [facility] Address [address] [place] [address] Care Team Providers Name Role Phone Vasquez Maharaj Primary Care Provider Encounter Details Date Type Department Care Team Description 05/11/2012 Follow-[place] [facility]j Johns, Arrhythmia (Primary Dx); [facility] Encounter for monitoring anti-[place] [phone] CARDIOLOGY DEPT. [place], [place] [address] (Wo rk) Social History Tobacco [...] Sign Reading Time Taken Comments Blood Pressure 100/62 05/11/2012 3:17 PM EST Pulse 66 05/11/2012 3:17 PM EST Temperature - - Respiratory Rate - - Oxygen Saturation 97% 05/11/2012 3:17 PM EST Inhaled Oxygen Concentration - - Weight 114.7 kg (252 lb 14.4 oz) 05/11/2012 3:17 PM EST Height 181.6 cm (5' 11.5) 05/11/2012 3:17 PM EST Body Mass Index 34.78 05/11/2012 3:17 PM EST documented in this encounter Patient Instructions Patient InstructionsSaRj velez MD - 05/11/2012 3:48 PM EST Images from the original note were not included. It was good to see you in the Cardiac Electrophysiology Clinic today. We discussed the rhythm abnormalities (you are doing very well), the flecainide and the need for a repeat stress test You should continue with your medicines as before - I made no changes to your medicines today I will arrange for the following: A) Stress test (call when you are ready to proceed) B) Liver and kidney function tests - have these done today I will arrange for a routine follow up in about 6 months time For any questions, call my office: [phone] To access your health care information, go to the web at: [email or web address], Clinical Cardiac Electrophysiology, [facility], [facility] A Healthy Heart: After Your Visit [...] least 2 servings of fish a week. Everly, mackerel, sorenson, sardines, and chunk light tuna are very good choices. These fish contain omega-3fatty acids. ?? Eat a variety of fruit and vegetables every day. Dark green, deep orange, red, or yellow fruits and vegetables are especially good for you. Examples include spinach, carrots, peaches, and berries. ?? Foods high in fiber can reduce [...] irregular heartbeat. After you call 911, the dredge operator supervisor may tell you to chew 1 adult-strength [...] more? Visit our health information library at [email or web address]. You can also view health information on [employer], your personal patient account. Log in or sign up today. Enter F075 in the search box to learn more about A Healthy Heart: After Your Visit. ?? [id number] [employer]. Care instructions adapted under license by [employer]. This care instruction is for use with your licensed healthcare professional. If you have questionsabout a medical condition or this instruction, always ask your healthcare professional. [employer] disclaims any warranty or liability for your use of this information. Content Version: [id number]; Last Revised: August 06, 2010 documented in this encounter Progress Notes Rj Johns MD - 05/11/2012 3:35 PM EST Section of Cardiology/Cardiac Electrophysiology Clinical Cardiac Electrophysiology Follow Up Patient ID: Dario Mckeon is a 56 y.o. male. HPI Mr Juan is seen in the EP clinic for routine follow up. He underwent EPS and ablation of a right atrial atrial tachycardia in 2008 - since then he has been maintained on flecainide and has done well. He has gained 30 lbs over the last 6 months. No palpitations; no lightheadedness, dizziness, no chest pain. Some joint related discomfort, otherwise feels well. No significant limitations. Patient Active Problem List Diagnoses ??? SVT [...] Outpatient Prescriptions Medication Sig Dispense Refill ??? metoprolol succinate (TOPROL-XL) 50 mg 24 hr tablet take 1 tablet by mouth once daily 90 tablet 3 ??? ibuprofen (ADVIL;MOTRIN) 200 mg tablet Take 200 mg by mouth every 6 hours as needed. Indications: Pain ??? flecainide (TAMBOCOR) 100 mg tablet Take 1 tablet by mouth 2 times daily. 60 tablet 11 ??? aspirin 81 mg EC tablet Take 81 mg by mouth daily. 81mg = 1 tablet ??? Jswzziouvokds-Gkqpzrfy-Ggffvv (CENTRUM SILVER) Tab Take 1 tablet by mouth daily. ??? ascorbic acid (VITAMIN C) 500 mg tablet Take 500 mg by mouth daily. 500mg = 1 tablet Review of Systems Constitution: Negative. Musculoskeletal: Positive for arthritis. Gastrointestinal: Positive [...] person, place, and time. ECG: Sinus rhythm, 64 bpm, ND 180 ms, QRS 110 ms, QT 440 ms Assessment and Plan: 56 y.o. man with a history of right sided atrial tachycardia , s/p ablation, maintained on flecainide. He has been doing well, with no recurrent arrhythmias, even on a lower dose of flecainide, His stress test from last year was sub-maximal; so we discussed the idea of repeating this, perhaps with imaging He is planning on losing some weight , and may be able to exercise to a higher level, so we may end up rescheduling the stress test. Plan: 1) Continue current medicines 2) Will schedule for repeat stress test, when he has had the chance to lose some weight - otherwise,will arrange for a stress echo 3) Routine follow up in 6-12 months 4) BMP, LFT today RJ JOHNS MD 17 minutes of this 26 minute encounter were spent in counselling and co- ordination of care. No problem-specific assessment & plan notes found for this encounter. No results found for this or any previous visit (from the past 24 hour(s)). documented in this encounter Plan of Treatment Upcoming Encounters Date Type Specialty Care Team Description 02/10/2022 Office Visit Neurology Mariann Ivy MD [facility] NEUROLOGY DEPT [place] [address] (Wo rk) documented as of this encounter Procedures Procedure Name Priority Date/Time Associated Diagnosis Comme nts HEPATIC FUNCTION Routine 05/11/2012 4:03 PM Arrhythmia Results for this PANEL EST Encounter for procedure are in monitoring the results anti-arrhythmic section. therapy BASIC METABOLIC Routine 05/11/2012 4:03 PM Arrhythmia Results for this PANEL (NON-FASTING) EST Encounter for procedu re are in monitoring the results anti-arrhythmic section. therapy EKG 12-LEAD Routine 05/11/2012 3:29 PM Arrhythmia Results f or this EST procedure are i n the results section. documented in this encounter Results Hepatic Function Panel (05/11/2012 4:03 PM EST) P athologist Signature Total Protein 7.8 6.4 - 8.3 CERNER gm/dL MILLENNIUM Albumin 4.5 3.2 - 5.2 CERNER gm/dL MILLENNIUM AST 20 0 - 39 CERNER unit/L MILLENNIUM ALT 20 0 - 55 CERNER unit/L MILLENNIUM Alk Phos 67 40 - 120 CERNER unit/L MILLENNIUM Total 0.3 0.2 - 1.3 CERNER Bilirubin mg/dL MILLENNIUM Bili, Direct 0.1 0.0 - 0.3 CERNER mg/dL MILLENNIUM Specimen Anatomical Collection Method Collection Time Receive d Time (Source) Location / / Volume Laterality Blood specimen 05/11/2012 4:03 PM 013 4:17 (specimen) EST PM EST Resulting Agency Comment Spec In Lab Rj Johns MD CHEMISTRY ORDERABLES Performing Organization Address City/State/[place] [address] CERNER MILLENNIUM Basic Metabolic Panel (non-fasting) (05/11/2012 4:03 PM EST) athologist Signature Glucose Lvl 92 60 - 199 CERNER mg/dL MILLENNIUM Comment: Diabetes: >=200 mg/dL plus symp toms BUN 19 10 - 20 mg/dL CERNER MILLENNIU M Creatinine 0.95 0.80 - 1.50 mg/dL CERNER MILL ENNIUM Comment: Please note that the pediatric reference intervals supplied above were not validated at [facility]. Results from pediatri c patients should be interpreted in conjunction to the patient's age, height and muscle mass. Sodium 139 135 - 145 mmol/L CERNER JENNI NIUM Potassium 4.0 3.5 - 5.0 mmol/L CERNER JENNI NIUM [...] Location / / Volume Laterality Blood specimen 05/11/2012 4:03 PM 013 4:17 (specimen) EST PM EST Resulting Agency Comment Spec In Lab Rj Johns MD CHEMISTRY ORDERABLES Performing Organization Address City/State/ZIP Code Phon e Number [place] [phone] [facility] EKG 12 Lead (05/11/2012 3:29 PM EST) Component Value Ref Range Test Analysis Performed Pathologis t Method Time At Signature Ventricular rate 64 BPM MUSE SYSTEM Atrial Rate 64 BPM MUSE SYSTEM P-R Interval 172 ms MUSE SYSTEM QRS Duration 112 ms MUSE SYSTEM Q-T Interval 426 ms MUSE SYSTEM QTC Calculated 439 ms MUSE SYSTEM (Bezet) Calculated P Wing[place] 49 degrees MUSE SYSTEM Calculated R [place] -29 degrees MUSE SYSTEM Calculated T [place] 39 degrees MUSE SYSTEM INTERPRETATION Normal sinus rhythm MUSE SYSTEM Normal ECG When compared with ECG of 28-SEP-2011 15:08, No significant change was found Confirmed by MD ROMI, SOURAV ([id number]) on 05/11/2012 5:30:48 PM Specimen Anatomical Collection Method Collection Time Receive d Time (Source) Location / / Volume Laterality 05/11/2012 3:29 PM 3 5:30 EST PM EST Rj Johns MD ECG ORDERABLES Performing Organization Address City/State/ZIP Code Phon e Number MUSE SYSTEM documented in this encounter Visit Diagnoses Diagnosis Arrhythmia - Primary Cardiac dysrhythmia, unspecified Encounter for monitoring anti-arrhythmic therapy Encounter for therapeutic drug monitorin g documented in this encounter Care Teams Plant Tender Relationship Specialty Start Date End Date Vasquez Maharaj DO PCP - General 03/09/10 09/26/[address] [place] [address] documented as of this encounter
--- OUTSIDE RECORDS SUMMARY | 2021-11-30 11:54 | XMS_ITS | Encounter Summary ---
:1955 Author Organization [facility] [place] [address] Care Team Providers Name Role Phone Vasquez Maharaj DO Primary Care Provider Reason for Visit Reason Comments Medication Refill Encounter Details Date Type Department Care Team Description 04/05/2011 Refill Cardiology at [facility] [place] Bebeto Foss, Medication Refill [facility] [place] [address] [facility] [phone] CARDIOLOGY DEPT. [place], [place] [address] (Wo rk) Social History Tobacco [...] Office Visit Neurology Mariann Ivy MD [facility] NEUROLOGY DEPT [place], [place] [address] (Wo rk) documented as of this encounter Visit Diagnoses Diagnosis SVT (supraventricular tachycardia) Other specified cardiac dysrhythmias Chest pain Chest pain, unspecified documented in this encounter Care Teams Parole Supervisor Relationship Specialty Start Date End Date Vasquez Maharaj DO PCP - General 03/09/10 09/26/[address] [place] [address] documented as of this encounter
--- OUTSIDE RECORDS SUMMARY | 2021-11-30 11:54 | XMS_ITS | Encounter Summary ---
:1955 Author Organization [facility] [place] [address] Care Team Providers Name Role Phone Vasquez Maharaj DO Primary Care Provider Reason for Referral Diagnostic Test (Routine) - Closed Specialty Diagnoses / Procedures Referred By Contact Refer red To Contact Radiology Diagnoses Tachycardia Pascual Alvarenga PA Radiology Procedures NM myocardial perfusion scan, pharmacologic [facility] CARDIOLOGY DEPT. [place], [place] [id number] [place] [phone] Referral ID Status Reason Start Date Expiration Date Visits V isits Requested Authorized [id number] Closed Specialty 02/09/2015 02/09/2016 1 1 Service Requested Reason for Visit Diagnostic Test (Routine) - Closed Specialty Diagnoses / Procedures Referred By Contact Refer red To Contact Radiology Diagnoses Tachycardia Pascual Alvarenga PA Radiology Procedures NM myocardial perfusion scan, pharmacologic [facility] [place] [address] [place] [address] Referral ID Status Reason Start Date Expiration Date Visits V isits Requested Authorized [id number] Closed Specialty 02/09/2015 02/09/2016 1 1 Service Requested Encounter Details Date Type Department Care Team Description 04/24/2015 Hospital Encounter Nuclear Medicine at [facility] [place] [address] Social History Tobacco Use Types Packs/Day [...] mouth 0 daily. 81mg = 1 tablet Rkibvkjinndvw-Cugcmypa-Qqyc Take 1 tablet by 0 in (CENTRUM SILVER) Tab mouth daily. ascorbic acid (VITAMIN C) Take 500 mg by 0 500 mg tablet mouth daily. 500mg = 1 tablet documented as of this encounter Plan of Treatment Upcoming Encounters Date Type Specialty Care Team Description 02/10/2022 Office Visit Neurology Mariann Ivy MD [facility] NEUROLOGY DEPT [place], [place] [address] (Wo rk) documented as of [...] change from prior study. Rj Johns MD IM NM ORDERABLES documented in this encounter Visit Diagnoses Diagnosis Tachycardia Tachycardia, unspecified documented in this encounter Administered Medications Inactive Administered Medications - up to 3 most recent administrations Medication Order MAR Action Action Date Dose Rate Site technetium (Tc-99m) sestamibi Given 04/24/2015 12:56 PM EST 12 m Ci injection 12 mCi 12 mCi, Intravenous, ONCE PRN, 1 dose, Starting on Mon04/24/15 at 1250, Until Mon04/24/15 at 1256, Per Protocol, Routine documented in this encounter Care Teams Plastic Surgeon Relationship Specialty Start Date End Date Vasquez Maharaj DO PCP - General 03/09/10 09/26/21 [address] [place] [address] documented as of this encounter
--- NOTE | 2021-11-30 12:45 | RT.EKG_ITS ---
APPROVED REPORT Exam: Resting ECG Reason for Exam: R sided chest pain Patient Location: E HR:65 bpm ECG Measurements Heart Rate 65 AXIS AZ 168 P -28 QRSd 97 QRS -51 QT 442 T 35 QTc 459 Conclusion Sinus rhythm...normal P axis, V-rate 60- 99 Left anterior fascicular block...axis(240,-40), init forces inf
--- NOTE | 2021-11-30 12:45 | DI.RAD_ITS ---
Exam(s) XR PORTABLE CHEST AP EXAM: XR PORTABLE CHEST AP CLINICAL HISTORY: R sided rib pain. TECHNIQUE: 2D digital imaging was performed. COMPARISON: CR XR CHEST 2V PA LATERAL from 11/25/2021 FINDINGS: Single AP portable view. Heart size slightly prominent. The mediastinum is not widened. Tortuous descending thoracic aorta i s unchanged. Lungs are clear. No infiltrates nor obvious pleural effusions. IMPRESSION: No acute pulmonary findings on this single AP portable view of the chest. Mild cardiomegaly again noted. DATA REPOSITORY: RADIATION DOSE DELIVERED: All CT scans at this facility use at least one of these dose optimization techniques: automated exposure control; mA and/or kV adjustment per patient size (includes targeted e xams where dose is matched to clinical indication); or iterative reconstruction.
--- NOTE | 2021-11-30 13:15 | ED.GENADUL_ITS ---
Discharge Plan Disposition Patient Disposition: HOME Condition: Stable Discharge Details Clinical Impression: Right-sided chest wall pain, Abdominal pain, RUQ Primary Care Provider: Maynor Hunt ED Provider: Seymour Rivas Home Meds and New Rx's Prescriptions: Continued divalproex 250 mg tablet extended release 24 hr 250 mg PO DAILY bupropion HCl 100 mg tablet 100 mg PO DAILY ipratropium bromide 21 mcg (0.03 %) spray,non-aerosol 2 spray intranasal TID Qty: 30 3RF Rx Instructions: administer into each nostril metformin 500 mg tablet extended release 24 hr 500 mg PO DAILY Qty: 180 3RF diphenoxylate-atropine [Lomotil] 2.5-0.025 mg tablet 1 tab PO TID PRN (Reason: diarrhea) Qty: 60 0RF cyclobenzaprine 10 MG tablet 10 mg PO BID PRNQty: 30 atorvastatin [Lipitor] 20 MG tablet 20 mg PO HS Qty: 90 memantine 28 mg capsule,sprinkle,ER 24hr 28 mg PO DAILY flecainide 100 mg tablet 100 mg PO BID Qty: 180 3RF donepezil 10 mg tablet 10 mg PO BID Qty: 180 3RF lisinopril 2.5 mg tablet 2.5 mg PO DAILY Qty: 90 3RF bupropion HCl 150 mg tablet sustained-release 12 hr 150 mg PO QHS Qty: 90 3RF metoprolol succinate 50 mg tablet extended release 24 hr 50 mg PO DAILY Qty: 90 3RF cefpodoxime 200 mg tablet 200 mg PO BID Qty: 10 0RF Rx Instructions: must administer with a meal/food Discharge Instructions Instructions: Chest Wall Pain (ED) Additional Instructions: Work-up in the ER does not reveal any obvious emergent process. Please watch for new or worsening symptoms and return to the ER for any concerns. [id number] medications as directed for symptomatic control. Lastly, please contact your primary care provider later today or tomorrow to discuss your ER visit and need for outpatient reevaluation. Discharge Data Discharge Date/Time-TO BE ENTERED AT DEPARTURE: 11/30/21 16:04 Medical Decision Making This is a 66-year-old gentleman with a past medical history that includes hypertension, diabetes, seizure disorder, heart disease, chronic low back pain, CVA, recent hospitalization with COVID, presenting to the ER today complaining of right-sided chest wall pain status post a fall 2 weeks ago. He states that this was never truly addressed when he was recently admitted. He denies additional injury. Patient unfortunately is a rather vague and poor historian. Reviewing his records when hospitalized he did have a chest CT which did not reveal any obvious rib fractures. Given the vagueness of his presentation, multiple comorbidities, right-sided chest pain with right upper quadrant pain, chronic diarrhea, differential is broad and includes but not excluded to musculoskeletal injury, rib fracture, PE, pneumonia, ACS, biliary colic, etc. Plan is to obtain IV access, chest x-ray, abdomen, pelvis. Given the duration of his symptoms I believe a single troponin is reasonable Laboratory values do not reveal any evidence of leukocytosis. Patient has mild and what appears to be baseline anemia, no thrombocytopenia. D-dimer is elevated at 914. Electrolytes unremarkable, creatinine 1.2 with a GFR greater than 60. Magnesium 1.9 bili 0.4 AST 18 ALT 25 alk phosphatase 86, troponin less than 50, lipase 149. Patient does remain COVID positive. X-ray unremarkable but given his elevated D-dimer we will pursue CT imaging CTA of the chest, abdomen, pelvis also unremarkable for any obvious emergent process. Discussed findings with patient and family. They are both relieved. Discussed conservative measures such as [id number] Tylenol and Lidoderm patch. Standard discharge and return precautions were provided. Patient understands, is agreeable to this plan, and has no additional questions or concerns upon discharge. This documentation was generated using [employer] dictation system, please disregard any oddities of phrase or misspellings. Medical Records Medical records reviewed: Yes I reviewed the patient's medical records. Imaging Data Radiologic Study: Attestation: I personally reviewed and interpreted this imaging study as follows: Imaging: X-Ray Radiologist's impression: Exam(s) XR PORTABLE CHEST AP EXAM: XR PORTABLE CHEST AP CLINICAL HISTORY: R sided rib pain. TECHNIQUE: 2D digital imaging was performed. COMPARISON: CR XR CHEST 2V PA LATERAL from 11/25/2021 FINDINGS: Single AP portable view. Heart size slightly prominent. The mediastinum is not widened. Tortuous descending thoracic aorta is unchanged. Lungs are clear. No infiltrates nor obvious pleural effusions. IMPRESSION: No acute pulmonary findings on this single AP portable view of the chest. Mild cardiomegaly again noted. Radiologic Study #2: Attestation: I personally reviewed and interpreted this imaging study as follows: Imaging: CT Scan Radiologist's impression: Exam(s) CT CHEST PE ABD PELVIS W EXAM: CT CHEST PE ABD PELVIS W CLINICAL HISTORY: R sided chest pain, covid +. TECHNIQUE: Imaging Protocol: Axial CT angiography was performed with multi- slice acquisition and multi-planar and/or 3D reconstructions. CONTRAST MATERIAL: Intravenous: Omnipaque 350 Contrast volume:100 ml Oral: None COMPARISON: CR LUMBAR SPINE COMPLETE from 05/21/2014 CR XR CHEST 2V PA LATERAL from 11/25/[address] CHEST PE CTA from 11/25/2021 CR XR PORTABLE CHEST AP from 11/30/2021 FINDINGS: CHEST: PULMONARY ARTERIES: There are no intra-arterial filling defects to suggest the presence of acute pulmonary emboli. LUNGS: There is no evidence of pulmonary infarction. There are no pleural effusions. MEDIASTINUM: There is no hilar nor mediastinal adenopathy. Visualized thyroid unremarkable. CARDIAC: Heart size slightly prominent. There is no pericardial effusion. Caliber thoracic aorta is within normal limits. No evidence of aortic dissection.Ventricular ratio=1:1 OSSEOUS: There is a wedge compression fracture of a T5 vertebral body noted which was evident on prior x-rays 11/25/2021. No thickened retropulsion. ABDOMEN: There is no ascites. LIVER: There are no focal hepatic lesions nor dilatation of intrahepatic ducts. GALLBLADDER/BILIARY: No obvious gallbladder pathology. CBD is not dilated. PANCREAS: No evidence of pancreatic mass nor dilatation of the pancreatic duct. SPLEEN: Spleen is not enlarged. There are no intrasplenic lesions. Splenic and portal veins are patent. ADRENALS: There are no significant adrenal masses. KIDNEYS:There are no cysts nor solid lesions in the kidneys. There are bilateral small nonobstructive multiple calculi in both kidneys.. No hydronephrosis. No hydroureter. No obvious abnormalities in the urinary bladder and ureterovesical junctions. ABDOMINAL AORTA: Abdominal aorta is not enlarged. LYMPH NODES: There is no retroperitoneal or para-aortic adenopathy. ABDOMINAL WALL/GI: No evidence of significant anterior abdominal wall hernia. No bowel obstruction. PELVIS: LYMPH NODES: There is no intrapelvic nor inguinal adenopathy. GI: No evidence of appendicitis.No evidence of sigmoid diverticulitis. URINARY BLADDER: No calculi nor masses evident REPRODUCTIVE: Slightly enlarged prostate gland. Contains calcifications. Seminal vesicles unremarkable. OSSEOUS: Multilevel chronic disc space narrowing in the lumbar spine. Schmorl's node invagination in the inferior endplate L1. IMPRESSION: 1. No evidence of acute pulmonary emboli nor pulmonary infarction. 2. No infiltrates nor pleural effusions. 3. Bilateral nonobstructive renal calculi. No obvious abnormality in the urinary bladder. Prostate slightly enlarged Lab Data Lab results reviewed: Yes I reviewed the patient's lab results. Labs: Laboratory Tests Range/Units 11/30/21 11/30/21 11/30/21 13:00 13:13 13:13 WBC (4.4-10.8) 10^3/uL RBC (4.36-5.78) 10^6/uL Hgb (13.5-17.5) g/dL Hct (40.0-50.0) % MCV (80-95) fL MCH (27.0-33.0) pg MCHC (32.0-36.0) % RDW (11.8-14.1) % Plt Count (130-400) 10^3/uL MPV (8.0-11.0) fL Immature Gran % Neutrophils % Lymphocytes % Monocytes % Eosinophils % Basophils % Nucleated RBC % (0.0-0.3) % Absolute Neutrophils (1.2-6.7) 10^3/uL Absolute Lymphocytes (1.2-3.4) 10^3/uL Absolute Monocytes (0.1-0.8) 10^3/uL Absolute Eosinophils (0.0-0.7) 10^3/uL Absolute Basophils (0.0-0.2) 10^3/uL PT (9.3-11.0) sec 9.9 INR (0.9-1.1) 1.0 APTT (21.0-27.5) sec 24.4 D-Dimer (<500) ng/mlFEU 914 H Sodium (136-145) mmol/L Potassium (3.5-5.1) mmol/L Chloride (98-107) mmol/L Carbon Dioxide (21.0-32.0) mmol/L Anion Gap (3-11) mmol/L BUN (7-18) mg/dL Creatinine (0.70-1.30) mg/dL Estimated GFR/1.73 m2 (mL/min/1.73m2) Glucose (74-106) mg/dL Calcium (8.5-10.1) mg/dL Magnesium (1.8-2.4) mg/dL Total Bilirubin (0.2-1.0) mg/dL AST (15-37) U/L ALT (16-63) U/L Alkaline Phosphatase (46-116) U/L Troponin I (<or=60) ng/L Total Protein (6.4-8.2) g/dL Albumin (3.4-5.0) g/dL Lipase (73-393) U/L 149 COVID-19 Source Nasal/Nares SARS-CoV-2 (PCR) (Negative) POSITIVE A* Range/Units 11/30/21 11/30/21 11/30/21 13:13 13:13 15:51 WBC (4.4-10.8) 10^3/uL 5.22 RBC (4.36-5.78) 10^6/uL 4.10 L Hgb (13.5-17.5) g/dL 12.2 L Hct (40.0-50.0) % 36.3 L MCV (80-95) fL 89 MCH (27.0-33.0) pg 29.8 MCHC (32.0-36.0) % 33.6 RDW (11.8-14.1) % 12.5 Plt Count (130-400) 10^3/uL 252 MPV (8.0-11.0) fL 9.3 Immature Gran % 0.6 Neutrophils % 64.9 Lymphocytes % 24.9 Monocytes % 6.7 Eosinophils % 2.5 Basophils % 0.4 Nucleated RBC % (0.0-0.3) % 0.0 Absolute Neutrophils (1.2-6.7) 10^3/uL 3.39 Absolute Lymphocytes (1.2-3.4) 10^3/uL 1.30 Absolute Monocytes (0.1-0.8) 10^3/uL 0.35 Absolute Eosinophils (0.0-0.7) 10^3/uL 0.13 Absolute Basophils (0.0-0.2) 10^3/uL 0.02 PT (9.3-11.0) sec INR (0.9-1.1) APTT (21.0-27.5) sec D-Dimer (<500) ng/mlFEU Sodium (136-145) mmol/L 144 Potassium (3.5-5.1) mmol/L 3.8 Chloride (98-107) mmol/L 107 Carbon Dioxide (21.0-32.0) mmol/L 28.6 Anion Gap (3-11) mmol/L 8.4 BUN (7-18) mg/dL 20 H Creatinine (0.70-1.30) mg/dL 1.2 Estimated GFR/1.73 m2 (mL/min/1.73m2) >= 60.00 Glucose (74-106) mg/dL 141 H Calcium (8.5-10.1) mg/dL 8.6 Magnesium (1.8-2.4) mg/dL 1.9 Total Bilirubin (0.2-1.0) mg/dL 0.4 AST (15-37) U/L 18 ALT (16-63) U/L 25 Alkaline Phosphatase (46-116) U/L 86 Troponin I (<or=60) ng/L < 50 Cancelled Total Protein (6.4-8.2) g/dL 7.4 Albumin (3.4-5.0) g/dL 3.1 L Lipase (73-393) U/L COVID-19 Source SARS-CoV-2 (PCR) (Negative) ECG Data Attestation: I personally reviewed and interpreted this ECG (s) as follows: Interpretation: Sinus rhythm, ventricular rate of 65. Left anterior fascicular block. No STEMI HPI General Mode of arrival: ambulatory . Date/Time Provider Initiated Documentation: 11/30/21 11:56 . Limitations to Documentation: no limitations . Information obtained by: patient and family . HPI Narrative: This is a 66-year-old male with a past medical history of hypertension, chronic diarrhea, mild cognitive impairment, diabetes, hyperlipidemia, CVA, chronic low back pain, CAD, seizure disorder, recent hospitalization for COVID on 11-25 and subsequent discharged on 11-26 presenting to the ER for what he describes as a 2- week history of right-sided pain in his chest wall. Patient states that approximately 2 weeks ago he had fallen injuring his ribs. He states the fall was mechanical and denies any other injury. He reports the pain is worse with palpation and/or movement. He states that when he was hospitalized with COVID he never had his ribs dressed and he wants to be sure they are not broken. Unfortunately he is a rather vague and poor historian and the timeline is slightly difficult to follow. He denies subsequent fall or injury, fever, shortness of breath, nausea, vomiting, back pain, dysuria, numbness, tingling, weakness. He has not taken any medications for his symptoms. Related Data Home Medications Medication Instructions Recorded Confirmed atorvastatin 20 mg tablet (Lipitor) 20 mg PO HS #90 tab-caps 01/25/16 11/30/21 cyclobenzaprine 10 mg tablet 10 mg PO BID PRN #30 tab-caps 01/25/16 11/30/21 memantine 28 mg capsule 28 mg PO DAILY 08/14/21 11/30/21 sprinkle,extended release 24hr bupropion HCl 100 mg tablet 100 mg PO DAILY 08/20/21 11/30/21 divalproex 250 mg tablet,extended 250 mg PO DAILY 08/20/21 11/30/21 release 24 hr donepezil 10 mg tablet 10 mg PO BID #180 tabs 08/25/21 11/30/21 flecainide 100 mg tablet 100 mg PO BID #180 tabs 08/25/21 11/30/21 ipratropium bromide 21 mcg (0.03 2 spray intranasal TID #30 mL 09/27/21 11/30/21 %) nasal spray lisinopril 2.5 mg tablet 2.5 mg PO DAILY #90 tabs 10/07/21 11/30/21 bupropion HCl 150 mg tablet,12 hr 150 mg PO QHS #90 tabs 10/11/21 11/30/21 sustained-release metformin 500 mg tablet,extended 500 mg PO DAILY #180 tabs 10/20/21 11/30/21 release 24 hr metoprolol succinate 50 mg 50 mg PO DAILY #90 tabs 10/20/21 11/30/21 tablet,extended release 24 hr diphenoxylate-atropine 2.5 1 tab PO TID PRN diarrhea #60 tabs 11/11/21 11/30/21 mg-0.025 mg tablet (Lomotil) cefpodoxime 200 mg tablet 200 mg PO BID #10 tabs 11/26/21 11/30/21 Previous Rx's Medication Instructions Recorded donepezil 10 mg tablet 10 mg PO BID #180 tabs 08/25/21 flecainide 100 mg tablet 100 mg PO BID #180 tabs 08/25/21 ipratropium bromide 21 mcg (0.03 2 spray intranasal TID #30 mL 09/27/21 %) nasal spray lisinopril 2.5 mg tablet 2.5 mg PO DAILY #90 tabs 10/07/21 bupropion HCl 150 mg tablet,12 hr 150 mg PO QHS #90 tabs 10/11/21 sustained-release metformin 500 mg tablet,extended 500 mg PO DAILY #180 tabs 10/20/21 release 24 hr metoprolol succinate 50 mg 50 mg PO DAILY #90 tabs 10/20/21 tablet,extended release 24 hr diphenoxylate-atropine 2.5 1 tab PO TID PRN diarrhea #60 tabs 11/11/21 mg-0.025 mg tablet (Lomotil) cefpodoxime 200 mg tablet 200 mg PO BID #10 tabs 11/26/21 Allergies Allergy/AdvReac Type Severity Reaction Status Date / Time morphine Allergy Mild ITCHING Unverified 11/30/21 12:03 ciprofloxacin Allergy Unknown Unverified 11/30/21 12:03 codeine Allergy Unknown Unverified 11/30/21 12:03 dextromethorphan Allergy Unknown Unverified 11/30/21 12:03 [From Nuedexta] pollen extracts Allergy Unknown Unverified 11/30/21 12:03 quinidine [From Nuedexta] Allergy Unknown Unverified 11/30/21 12:03 Sulfa (Sulfonamide Allergy Unknown Unverified 11/30/21 12:03 Antibiotics) General Stated Complaint: Orthopedic RERE: 4 Review of Systems Constitutional Constitutional: Denies fatigue, Denies fever(s), Denies headache(s) and Reports weakness (generalized) ENT Ears, Nose, Mouth, and Throat: Denies headache(s) and Denies neck pain Cardiovascular Cardiovascular: Reports chest pain (R chest wall) and Denies dyspnea Respiratory Respiratory: Reports cough (on going from covid) and Denies dyspnea Gastrointestinal Gastrointestinal: Reports abdominal pain (RUQ), Denies constipation, Reports diarrhea (chronic), Denies nausea and Denies vomiting Musculoskeletal Musculoskeletal: Reports back pain (chronic low) and Denies neck pain Integumentary/Breasts Skin/Breast: Denies rash Neurologic Neurologic: Denies headache(s) and Reports weakness (generalized) Endocrine Endocrine: Denies fatigue Hematologic/Lymphatic Hematologic/Lymphatic: Denies easy bleeding and Denies easy bruising PFSH All Active Problems (Updated 12/01/21 @ 10:11 by TAQUERIA Ospina) Right-sided chest wall pain (Acute) Abdominal pain, RUQ (Acute) Hypertension (Chronic) COVID-19 (Acute) UTI (urinary tract infection) (Acute) Generalized weakness (Acute) Chronic diarrhea (Chronic) Mild cognitive impairment (Chronic) Diabetes (Chronic) COVID-19 (Acute) 11/24/21 Vaccinated, boosted Umbilical hernia (Acute) Back pain (Acute) Diarrhea (Acute) Urinary frequency (Acute) Tachycardia (Chronic) MARTA (obstructive sleep apnea) (Chronic) Does not use CPAP Hyperlipidemia (Acute) Arthritis (Acute) Knees, lower back, shoulders Acute CVA (cerebrovascular accident) (Acute) 2018 and 2019 Chronic low back pain (Acute) Lumbar facet arthropathy (Acute) Lumbar spondylosis (Acute) without myelopathy or radiculopathy 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 Heart disease (Acute) Cerebral amyloid angiopathy (Acute) Generalized tonic-clonic seizure (Acute) Only 1 seizure ever after first CVA Diabetic peripheral neuropathy (Acute) Very mild Medical History Bilateral inguinal hernia 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 Status post appendectomy At age 13 Family History Mother Heart disease Dementia Father Heart disease Alzheimer disease Brother Alcohol use disorder Depression Heart disease Grandfather Heart disease Grandfather Personal history of malignant neoplasm LUNG Grandmother Essential hypertension Heart disease Grandmother Diabetes Essential hypertension Personal history of malignant neoplasm COLON Heart disease Social History Smoking/Tobacco Use Status: Former Tobacco Use Second Hand Exposure: Yes Smoking risk assessment performed?: Yes Alcohol Intake: current Alcohol Intake frequency: holidays/special occasions only Drug use: Never Substance use type: does not use Caregiver/Support person: No Household members: significant other Do you need help understanding health information?: Always Pets and animals: Yes Pets and animals: cat(s) and dog(s) Do you think of yourself as: straight/heterosexual Current gender identity: male What is your relationship status?: living with partner How often do you talk on the phone with friends or family?: three or more times per week How often do you get together with friends or relatives?: twice per week How often do you attend tenriism or congregation services?: decline to answer Do you belong to any clubs or organized social groups?: no Panel score (0-1 are the most socially isolated patients): 2 What type of physical activity do you participate in: none Yaima/Jewish: Jehovah'S Witness Seatbelt use: always Drive intox or ride w/intox route driver coin machines: No Do you feel safe at home: Yes Do you feel safe in your relationship?: Yes Exam Const General: cooperative, healthy appearing, comfortable and no acute distress Orientation: alert and awake [facility] Head: normal to inspection, normocephalic and atraumatic Face and sinus: normal facial exam Mouth: moist mucous membranes Eyes Conjunctivae: conjunctivae normal Neck Neck: normal visual inspection, full ROM, trachea midline and supple Chest Chest: normal inspection of the chest Other: Diffuse mild right anterior lower chest wall discomfort. No erythema, ecchymosis or crepitus. Resp Effort & Inspection: normal respiratory effort, able to speak in complete sentences and cough Quality of cough: dry (Mild) Auscultation: clear to auscultation bilaterally Cardio Rate: regular rate Rhythm: regular rhythm GI Inspection: normal to inspection Palpation: soft, not firm, no guarding, no pulsatile masses and tender in the RUQ; Mcdonnell's sign negative and with no rebound tenderness Auscultation: normal bowel sounds Back/Spine/Pelvis Back: no CVA tenderness and back tenderness (Diffuse mild, chronic per patient) Skin General skin exam: no rashes or lesions noted Neuro General: patient alert, patient awake, moves all extremities and no focal motor deficits Cognition: normal cognition Speech: speech normal Gait: normal gait Motor: muscle tone normal throughout Sensory Exam: no sensory deficits noted Extrem General: normal to inspection, full ROM, capillary refill normal, no pedal edema and no calf tenderness Psych Appearance: grossly normal Mental Status: mental status grossly normal Course Vital Signs Vital signs: Vital Signs Temperature 36.8 C 11/30/21 11:44 Pulse 67 11/30/21 11:44 Respiratory Rate 18 11/30/21 11:44 Blood Pressure 139/88 11/30/21 11:44 Pulse Oximetry 99 11/30/21 11:44 Temperature 36.8 C 11/30/21 11:44 Temperature Source Temporal Artery Scan 11/30/21 11:44 Pulse 67 11/30/21 11:44 Respiratory Rate 18 11/30/21 11:44 Respiratory Effort Non-Labored 11/30/21 11:51 Blood Pressure 139/88 11/30/21 11:44 Blood Pressure Position Sitting 11/30/21 11:44 Pulse Oximetry 99 11/30/21 11:44 Oxygen Delivery Method Room Air 11/30/21 11:44 Oxygen Flow Rate 0 11/30/21 11:44 Pain Level 6 11/30/21 11:59
[2021-11-30 13:24] LABS: Source Nasal/Nares
[2021-11-30 13:27] LABS: Abs Immature Grans 0.03 10^3/uL (0.0-0.06); Absolute Basophil Count 0.02 10^3/uL (0.0-0.2); Absolute Eosinophil Count 0.13 10^3/uL (0.0-0.7); Absolute Monocyte Count 0.35 10^3/uL (0.1-0.8); Absolute Neutrophil Count 3.39 10^3/uL (1.2-6.7); Basophils % 0.4; Eosinophils % 2.5; HCT 36.3 % (40.0-50.0); HGB 12.2 g/dL (13.5-17.5); Immature Grans % 0.6; Lymphocytes % 24.9; MCH 29.8 pg (27.0-33.0); MCHC 33.6 % (32.0-36.0); MCV 89 fL (80-95); MPV 9.3 fL (8.0-11.0); Monocytes % 6.7; Neutrophils % 64.9; Platelet Count 252 10^3/uL (130-400); RDW 12.5 % (11.8-14.1); RDW-SD 40.5 fL; WBC 5.22 10^3/uL (4.4-10.8)
[2021-11-30 13:42] LABS: Lipase 149 U/L (73-393)
[2021-11-30 13:47] LABS: ALT 25 U/L (16-63); AST 18 U/L (15-37); Albumin 3.1 g/dL (3.4-5.0); Alkaline Phosphatase 86 U/L (46-116); Anion Gap 8.4 mmol/L (3-11); BUN 20 mg/dL (7-18); Bilirubin, Total 0.4 mg/dL (0.2-1.0); CO2 28.6 mmol/L (21.0-32.0); CREATININE 1.2 mg/dL (0.70-1.30); Calcium 8.6 mg/dL (8.5-10.1); Chloride 107 mmol/L (98-107); Glucose 141 mg/dL (74-106); Magnesium 1.9 mg/dL (1.8-2.4); PTT Activated 24.4 sec (21.0-27.5); Potassium 3.8 mmol/L (3.5-5.1); Prothrombin Time 9.9 sec (9.3-11.0); Sodium 144 mmol/L (136-145); Total Protein 7.4 g/dL (6.4-8.2); Troponin I < 50 ng/L (<or=60)
[2021-11-30 13:59] LABS: COVID-19 PCR POSITIVE (Negative)
[2021-11-30 14:07] LABS: D-Dimer 914 ng/mlFEU (<500)
--- NOTE | 2021-11-30 14:10 | DI.CT_ITS ---
Exam(s) CT CHEST PE ABD PELVIS W EXAM: CT CHEST PE ABD PELVIS W CLINICAL HISTORY: R sided chest pain, covid +. TECHNIQUE: Imaging Protocol: Axial CT angiography was performed with multi-slice acquisition and m ulti-planar and/or 3D reconstructions. CONTRAST MATERIAL: Intravenous: Omnipaque 350 Contrast volume:100 ml Oral: None COMPARISON: CR LUMBAR SPINE COMPLETE from 05/21/2014 CR XR CHEST 2V PA LATERAL from 11/25/[address] CHEST PE CTA from 11/25/2021 CR XR PORTABLE CHEST AP from 11/30/2021 FINDINGS: CHEST: PULMONARY ARTERIES: There are no intra-arterial filling defects to suggest the presence of acute pulm onary emboli. LUNGS: There is no evidence of pulmonary infarction. There are no pleural effusions. MEDIASTINUM: There is no hilar nor mediastinal adenopathy. Visualized thyroid unremarkable. CARDIAC: Heart size slightly prominent. There is no pericardial effusion. Caliber thoracic aorta is within normal limits. No evidence of aortic dissection.Ventricular ratio=1:1 OSSEOUS: There is a wedge compression fracture of a T5 vertebral body noted which was evident on prio r x-rays 11/25/2021. No thickened retropulsion. ABDOMEN: There is no ascites. LIVER: There are no focal hepatic lesions nor dilatation of intrahepatic ducts. GALLBLADDER/BILIARY: No obvious gallbladder pathology. CBD is not dilated. PANCREAS: No evidence of pancreatic mass nor dilatation of the pancreatic duct. SPLEEN: Spleen is not enlarged. There are no intrasplenic lesions. Splenic and portal veins are knox nt. ADRENALS: There are no significant adrenal masses. KIDNEYS:There are no cysts nor solid lesions in the kidneys. There are bilateral small nonobstructiv e multiple calculi in both kidneys.. No hydronephrosis. No hydroureter. No obvious abnormalities i n the urinary bladder and ureterovesical junctions. ABDOMINAL AORTA: Abdominal aorta is not enlarged. LYMPH NODES: There is no retroperitoneal or para-aortic adenopathy. ABDOMINAL WALL/GI: No evidence of significant anterior abdominal wall hernia. No bowel obstruction. PELVIS: LYMPH NODES: There is no intrapelvic nor inguinal adenopathy. GI: No evidence of appendicitis.No evidence of sigmoid diverticulitis. URINARY BLADDER: No calculi nor masses evident REPRODUCTIVE: Slightly enlarged prostate gland. Contains calcifications. Seminal vesicles unremarka ble. OSSEOUS: Multilevel chronic disc space narrowing in the lumbar spine. Schmorl's node invagination in the inferior endplate L1. IMPRESSION: 1. No evidence of acute pulmonary emboli nor pulmonary infarction. 2. No infiltrates nor pleural effusions. 3. Bilateral nonobstructive renal calculi. No obvious abnormality in the urinary bladder. Prostate slightly enlarged. Report called by myself to ER provider. RADIATION DOSE DELIVERED: 1,617.81mGy.cm Total DLP DATA REPOSITORY: All CT scans at this facility are submitted to the National Radiology Data Registry (NRDR) Dose Index Registry (DIR) with the [employer] (A[employer]). RADIATION OPTIMIZATION: All CT scans at this facility use at least one of these dose optimization te chniques: automated exposure control; mA and/or kV adjustment per patient size (includes targeted exa ms where dose is matched to clinical indication); or iterative reconstruction.
[2021-11-30] MEDS: Omnipaque 350 MG/ML 100 ML BTL IJ (14:46)
[2021-11-30 16:02] VITALS: BP 130/82; PULSE 72; RESP 18; TEMP 36.6; O2SAT 99
== END 2021-11-30 16:04 | disposition home or self-care (01) ==
PROVIDERS: Emergency Provider Physician Assistant; PCP Nurse Practitioner Family
DX: R07.89 Other chest pain (principal); R10.11 Right upper quadrant pain; I44.7 Left bundle-branch block, unspecified; I10 Essential (primary) hypertension; E11.9 Type 2 diabetes mellitus without complications; G89.11 Acute pain due to trauma; R79.1 Abnormal coagulation profile; U07.1 COVID-19; Z79.84 Long term (current) use of oral hypoglycemic drugs; Z87.891 Personal history of nicotine dependence; K52.9 Noninfective gastroenteritis and colitis, unspecified; W19.XXXA Unspecified fall, initial encounter
CPT/HCPCS: 36415; 71275; 74177; 80053; 83690; 87635; 93005; 99284; 99285; 71045; 83735; 84484; 85025; 85379; 85610; 85730; 93010; J3490

== ENCOUNTER 2022-11-29 12:27 | Emergency (ER) | payer MEDICARE, BC, SELFPAY ==
[2022-11-29] VITALS (17 sets, daily range): BP systolic 128–232; BP diastolic 82–219; PULSE 60–78; RESP 10–22; TEMP 37.4; O2SAT 94–99
--- NOTE | 2022-11-29 12:45 | RT.EKG_ITS ---
APPROVED REPORT Exam: Resting ECG Reason for Exam: Altered mental status Patient Location: E HR:62 bpm ECG Measurements Heart Rate 62 AXIS IL 200 P -12 QRSd 109 QRS -46 QT 460 T 30 QTc 467 Conclusion Sinus rhythm.., V-rate 60- 99 Left anterior fascicular block...axis(240,-40) Appropriate intervals. No ST segment or T wave abnormalities to suggest occlusive [place]
[2022-11-29 13:20] LABS: Abs Immature Grans 0.03 10^3/uL (0.0-0.06); Absolute Basophil Count 0.05 10^3/uL (0.0-0.2); Absolute Eosinophil Count 0.04 10^3/uL (0.0-0.7); Absolute Lymphocyte Count 1.14 10^3/uL (1.2-3.4); Absolute Monocyte Count 0.46 10^3/uL (0.1-0.8); Absolute Neutrophil Count 6.78 10^3/uL (1.2-6.7); Basophils % 0.6; Eosinophils % 0.5; HCT 42.1 % (40.0-50.0); HGB 13.6 g/dL (13.5-17.5); Immature Grans % 0.4; Lymphocytes % 13.4; MCH 28.7 pg (27.0-33.0); MCHC 32.3 % (32.0-36.0); MCV 89 fL (80-95); MPV 9.2 fL (8.0-11.0); Monocytes % 5.4; Neutrophils % 79.7; Platelet Count 261 10^3/uL (130-400); RBC 4.74 10^6/uL (4.36-5.78); RDW 12.4 % (11.8-14.1); RDW-SD 40.8 fL
--- NOTE | 2022-11-29 13:24 | DI.CT_ITS ---
Exam(s) CT ABDOMEN PELVIS W EXAM: CT ABDOMEN PELVIS W CLINICAL HISTORY: RLQ TTP. TECHNIQUE: Imaging Protocol: Axial computed tomography images with coronal and sagittal reformatted images were created and reviewed CONTRAST MATERIAL: Intravenous: Omnipaque 350 Contrast volume:100 ml Oral: / no COMPARISON: CT CT CHEST PE ABD PELVIS W from 11/30/2021 FINDINGS: ABDOMEN: Lung Bases: Normal where visualized. Tiny hiatal hernia. Liver: Normal density. No measurable mass. Gallbladder and biliary tract: No radiodense calculus or dilation. Pancreas: Normal density, no abnormal calcifications or inflammatory process. Spleen: Normal. Kidneys: Normal size, contour and axis. Tiny nonobstructing bilateral renal calculi. No suspicious m asses seen. Adrenal glands: No masses seen. Abdominal Aorta: Abdominal portion non-dilated. Soft tissues: Tiny fatty containing umbilical hernia. PELVIS: Bladder: Mild diffuse wall thickening. No calculi.No focal mass. Bowel: No obstruction. No bowel wall thickening. Appendix is not seen. Probable prior appendectom y. No right lower quadrant inflammatory changes. Normal quantity of stool..Small diverticula descen ding duodenum. No surrounding inflammation. Peritoneal cavity: No ascites, collection or mesenteric inflammatory response. Bones: Stable mild compression fracture of the inferior endplate of L1. Degenerative disc changes th roughout. Reproductive organs: Enlarged prostate. Lymph nodes: Unremarkable. Small bilateral fatty containing inguinal hernias. Impression: No acute abnormality in the abdomen and pelvis. Findings called to Dr. Houser of the emergency department RADIATION DOSE DELIVERED: 2041.18 mGy.cm Total DLP DATA REPOSITORY: All CT scans at this facility are submitted to the National Radiology Data Registry (NRDR) Dose Index Registry (DIR) with the [employer] (ACR). RADIATION OPTIMIZATION: All CT scans at this facility use at least one of these dose optimization te chniques: automated exposure control; mA and/or kV adjustment per patient size (includes targeted exa ms where dose is matched to clinical indication); or iterative reconstruction.
--- NOTE | 2022-11-29 13:25 | DI.CT_ITS ---
Exam(s) CT HEAD WO EXAM: CT HEAD WO CLINICAL HISTORY: worsening confusion. TECHNIQUE: Imaging Protocol: Axial computed tomography images with coronal and sagittal reformatted images were created and reviewed COMPARISON: MR MR ANGIO BRAIN WO from 11/25/[address] HEAD WO from 11/25/2021 MR MR BRAIN WO from 11/25/2021 FINDINGS: Ventricles and Extra axial spaces: Mildly dilated, unchanged. Hemorrhage: Focus of acute hemorrhage in the anteroinferior left temporal lobe with mild surrounding edema and only slight mass effect on the temporal horn of the left lateral ventricle. The hemorrhage measures approximately 3 x 2 by 1.2 cm. No additional areas of hemorrhage. Cerebral parenchyma: Old infarct right frontal lobe. Chronic white matter changes bilaterally consis tent with severe microvascular disease. No evidence of acute infarct or mass. Midline shift: None. Brainstem/Cerebellum: Normal. Calvarium: Normal. Visualized Paranasal sinuses/Mastoids: Clear. Soft Tissues: Unremarkable. IMPRESSION: Focal area of acute hemorrhage in the left temporal lobe. Old right frontal infarct. Atrophy and severe white matter changes of small vessel disease again not ed. Findings called to Dr. Houser of the emergency department. RADIATION DOSE DELIVERED: Total DLP DATA REPOSITORY: All CT scans at this facility are submitted to the National Radiology Data Registry (NRDR) Dose Index Registry (DIR) with the [employer] (ACR). RADIATION OPTIMIZATION: All CT scans at this facility use at least one of these dose optimization te chniques: automated exposure control; mA and/or kV adjustment per patient size (includes targeted exa ms where dose is matched to clinical indication); or iterative reconstruction.
--- NOTE | 2022-11-29 13:26 | ED.GENADUL_ITS ---
Discharge Plan Disposition Patient Disposition: Transfer-Acute Inpatient Care Specific Acute Inpt Facility: [facility] Discharge Details Chief Complaint: AMS/LOC Clinical Impression: Intracranial hemorrhage Primary Care Provider: Maynor Hunt ED Provider: Bess Houser Home Meds and New Rx's Prescriptions: No Action divalproex 250 mg tablet extended release 24 hr 250 mg PO DAILY bupropion HCl 100 mg tablet 100 mg PO DAILY cyclobenzaprine 10 mg tablet 10 mg PO BID PRN (Reason: muscle spasm) Qty: 90 0RF ipratropium bromide 21 mcg (0.03 %) spray,non-aerosol 2 spray intranasal TID Qty: 30 3RF Rx Instructions: administer into each nostril methylprednisolone [Medrol (Bj)] 4 mg tablets,dose pack See Rx Instructions PO PER PKG DIR Qty: 21 0RF Rx Instructions: PO PER PKG DIR cyclobenzaprine 10 mg tablet 10 mg PO TID PRN (Reason: muscle spasm) Qty: 10 0RF memantine 28 mg capsule,sprinkle,ER 24hr 28 mg PO DAILY metoprolol succinate 50 mg tablet extended release 24 hr 50 mg PO DAILY Qty: 90 3RF donepezil 10 mg tablet 10 mg PO BID Qty: 180 3RF flecainide 100 mg tablet 100 mg PO BID Qty: 180 3RF metformin 500 mg tablet extended release 24 hr 500 mg PO DAILY Qty: 180 3RF atorvastatin [Lipitor] 20 mg tablet 20 mg PO HS Qty: 90 3RF bupropion HCl 150 mg tablet sustained-release 12 hr 150 mg PO QHS Qty: 90 3RF lisinopril 2.5 mg tablet 2.5 mg PO DAILY Qty: 90 3RF cefpodoxime 200 mg tablet 200 mg PO BID Qty: 10 0RF Rx Instructions: must administer with a meal/food Medical Decision Making 67yo M with hx of dementia, DM, HTN, prior right frontal lobe hemmoraghe, seizures, presenting with his for worsening confusion from baseline. Vital signs and physical exam reassuring, no focal neurological deficits, dose have mild RLQ tenderness on exam. Broad differential including including worsening dementia, infectious process, intracranial process, electrolyte abnormalites, intrabdominal process. Labs reviewed; CBC & CMP reassuring with no actionable abnormalities. TSH elevated; T4 normal. ETOH negative. Urine without UTI. EKG sinus rhythm, appropriate intervals, no ST segment or T wave abnormalities to suggest occlusive [place]. CT head independently reviewed, temporal bleed, agree with radiology read below. CT abd pelvis independently reviewed, no surgical pathology on my view, agree with radiology read below. Documented vital signs from automated cuff show severe hypertension; patient persistently holding arm bent. Manual blood pressures consistently with SBP in 120's-130's. Would treat with labatelol and/or IV nicardipine gtt if necessary to maintain SBP <140. [facility] neuro critical care consulted; patient family to their service. Accepted to neuro-critical service under Dr. Garcia; awaiting transfer. Imaging Data Radiologic Study: Imaging: CT Scan Radiologist's impression: IMPRESSION: Focal area of acute hemorrhage in the left temporal lobe. Old right frontal infarct.? Atrophy and severe white matter changes of small vessel disease again noted. Radiologic Study #2: Imaging: CT Scan Radiologist's impression: Impression: No acute abnormality in the abdomen and pelvis. Lab Data Lab results reviewed: Yes I reviewed the patient's lab results. Labs: Laboratory Tests Range/Units 11/29/22 11/29/22 11/29/22 13:13 13:13 13:13 WBC (4.4-10.8) 10^3/uL 8.50 RBC (4.36-5.78) 10^6/uL 4.74 Hgb (13.5-17.5) g/dL 13.6 Hct (40.0-50.0) % 42.1 MCV (80-95) fL 89 MCH (27.0-33.0) pg 28.7 MCHC (32.0-36.0) % 32.3 RDW (11.8-14.1) % 12.4 Plt Count (130-400) 10^3/uL 261 MPV (8.0-11.0) fL 9.2 Immature Gran % 0.4 Neutrophils % 79.7 Lymphocytes % 13.4 Monocytes % 5.4 Eosinophils % 0.5 Basophils % 0.6 Nucleated RBC % (0.0-0.3) % 0.0 Absolute Neutrophils (1.2-6.7) 10^3/uL 6.78 H Absolute Lymphocytes (1.2-3.4) 10^3/uL 1.14 L Absolute Monocytes (0.1-0.8) 10^3/uL 0.46 Absolute Eosinophils (0.0-0.7) 10^3/uL 0.04 Absolute Basophils (0.0-0.2) 10^3/uL 0.05 Sodium (136-145) mmol/L 144 Potassium (3.5-5.1) mmol/L 4.0 Chloride (98-107) mmol/L 105 Carbon Dioxide (21.0-32.0) mmol/L 29.2 Anion Gap (3-11) mmol/L 9.8 BUN (7-18) mg/dL 23 H Creatinine (0.70-1.30) mg/dL 1.5 H Est GFR (CKD-EPI 2020) (mL/min/1.73m2) 50.71 Glucose (74-106) mg/dL 126 H Calcium (8.5-10.1) mg/dL 9.3 Magnesium (1.8-2.4) mg/dL 1.9 Total Bilirubin (0.2-1.0) mg/dL 0.6 AST (15-37) U/L 13 L ALT (16-63) U/L 23 Alkaline Phosphatase (46-116) U/L 99 Ammonia (11-32) umol/L 15 Troponin I (<or=60) ng/L < 50 Total Protein (6.4-8.2) g/dL 8.1 Albumin (3.4-5.0) g/dL 4.0 TSH (0.36-3.74) uIU/mL Free T4 (0.76-1.46) ng/dL Urine Color (Yellow) Urine Clarity (Clear) Urine pH (5-8) Ur Specific [place] (1.005-1.025) Urine Protein (Negative) mg/dL Urine Ketones (Negative) mg/dL Urine Blood (Negative) Urine Nitrite (Negative) Urine Bilirubin (Negative) Urine Urobilinogen (Up to 0.2) mg/dL Ur Leukocyte Esterase (Negative) Urine RBC (0-2) HPF Urine WBC (0-5) HPF Ur Epithelial Cells (Negative) HPF Urine Crystals (Negative) HPF Urine Bacteria (Negative) HPF Urine Casts (Negative) LPF Urine Mucus (Negative) Ur Culture Indicated? Urine Glucose (Negative) mg/dL Ethyl Alcohol (<10) mg/dL < 3.0 Range/Units 11/29/22 11/29/22 13:13 14:18 WBC (4.4-10.8) 10^3/uL RBC (4.36-5.78) 10^6/uL Hgb (13.5-17.5) g/dL Hct (40.0-50.0) % MCV (80-95) fL MCH (27.0-33.0) pg MCHC (32.0-36.0) % RDW (11.8-14.1) % Plt Count (130-400) 10^3/uL MPV (8.0-11.0) fL Immature Gran % Neutrophils % Lymphocytes % Monocytes % Eosinophils % Basophils % Nucleated RBC % (0.0-0.3) % Absolute Neutrophils (1.2-6.7) 10^3/uL Absolute Lymphocytes (1.2-3.4) 10^3/uL Absolute Monocytes (0.1-0.8) 10^3/uL Absolute Eosinophils (0.0-0.7) 10^3/uL Absolute Basophils (0.0-0.2) 10^3/uL Sodium (136-145) mmol/L Potassium (3.5-5.1) mmol/L Chloride (98-107) mmol/L Carbon Dioxide (21.0-32.0) mmol/L Anion Gap (3-11) mmol/L BUN (7-18) mg/dL Creatinine (0.70-1.30) mg/dL Est GFR (CKD-EPI 2020) (mL/min/1.73m2) Glucose (74-106) mg/dL Calcium (8.5-10.1) mg/dL Magnesium (1.8-2.4) mg/dL Total Bilirubin (0.2-1.0) mg/dL AST (15-37) U/L ALT (16-63) U/L Alkaline Phosphatase (46-116) U/L Ammonia (11-32) umol/L Troponin I (<or=60) ng/L Total Protein (6.4-8.2) g/dL Albumin (3.4-5.0) g/dL TSH (0.36-3.74) uIU/mL 4.85 H Free T4 (0.76-1.46) ng/dL 1.06 Urine Color (Yellow) Yellow Urine Clarity (Clear) Clear Urine pH (5-8) 6.5 Ur Specific [place] (1.005-1.025) 1.025 Urine Protein (Negative) mg/dL 30 H Urine Ketones (Negative) mg/dL Negative Urine Blood (Negative) Negative Urine Nitrite (Negative) Negative Urine Bilirubin (Negative) Negative Urine Urobilinogen (Up to 0.2) mg/dL 0.2 Ur Leukocyte Esterase (Negative) Negative Urine RBC (0-2) HPF 0-2 Urine WBC (0-5) HPF 0-2 Ur Epithelial Cells (Negative) HPF Rare Urine Crystals (Negative) HPF Negative Urine Bacteria (Negative) HPF Negative Urine Casts (Negative) LPF Negative Urine Mucus (Negative) Trace Ur Culture Indicated? No Urine Glucose (Negative) mg/dL Negative Ethyl Alcohol (<10) mg/dL HPI General Mode of arrival: ambulatory . Date/Time Provider Initiated Documentation: 11/29/22 12:40 . Limitations to Documentation: no limitations . Information obtained by: patient and family . HPI Narrative: 67yo M with hx of dementia, DM, HTN, prior right frontal lobe hemmoraghe, seizures, presenting with his for worsening confusion from baseline. Patient denies pain, states he came in because my told me too. She reports that he has been wandering around the house confused which is note normal for him. She reports two episodes of vomiting; patient does not remember this. He denies nausea currently. No fevers, chills, rash, abdominal pain, dysuria, hematuria, back pain, focal weakness, numbness, tingling, headache, or other concerns. He is otherwise in his usual state of health. Related Data Home Medications Medication Instructions Recorded Confirmed memantine 28 mg capsule 28 mg PO DAILY 08/14/21 09/05/22 sprinkle,extended release 24hr bupropion HCl 100 mg tablet 100 mg PO DAILY 08/20/21 09/05/22 divalproex 250 mg tablet,extended 250 mg PO DAILY 08/20/21 09/05/22 release 24 hr ipratropium bromide 21 mcg (0.03 2 spray intranasal TID #30 mL 09/27/21 09/05/22 %) nasal spray metoprolol succinate 50 mg 50 mg PO DAILY #90 tabs 10/20/21 09/05/22 tablet,extended release 24 hr cefpodoxime 200 mg tablet 200 mg PO BID #10 tabs 11/26/21 09/05/22 cyclobenzaprine 10 mg tablet 10 mg PO BID PRN muscle spasm #90 03/03/22 09/05/22 tab-caps donepezil 10 mg tablet 10 mg PO BID #180 tabs 06/15/22 09/05/22 flecainide 100 mg tablet 100 mg PO BID #180 tabs 06/15/22 09/05/22 metformin 500 mg tablet,extended 500 mg PO DAILY #180 tabs 06/30/22 09/05/22 release 24 hr atorvastatin 20 mg tablet (Lipitor) 20 mg PO HS #90 tab-caps 10/20/22 bupropion HCl 150 mg tablet,12 hr 150 mg PO QHS #90 tabs 11/01/22 sustained-release lisinopril 2.5 mg tablet 2.5 mg PO DAILY #90 tabs 11/09/22 cyclobenzaprine 10 mg tablet 10 mg PO TID PRN muscle spasm #10 11/26/22 11/26/22 tabs methylprednisolone 4 mg tablets in See Rx Instructions PO PER PKG DIR 11/26/22 11/26/22 a dose pack (Medrol (Bj)) #21 dose pk Previous Rx's Medication Instructions Recorded ipratropium bromide 21 mcg (0.03 2 spray intranasal TID #30 mL 09/27/21 %) nasal spray metoprolol succinate 50 mg 50 mg PO DAILY #90 tabs 10/20/21 tablet,extended release 24 hr cefpodoxime 200 mg tablet 200 mg PO BID #10 tabs 11/26/21 cyclobenzaprine 10 mg tablet 10 mg PO BID PRN muscle spasm #90 03/03/22 tab-caps donepezil 10 mg tablet 10 mg PO BID #180 tabs 06/15/22 flecainide 100 mg tablet 100 mg PO BID #180 tabs 06/15/22 metformin 500 mg tablet,extended 500 mg PO DAILY #180 tabs 06/30/22 release 24 hr atorvastatin 20 mg tablet (Lipitor) 20 mg PO HS #90 tab-caps 10/20/22 bupropion HCl 150 mg tablet,12 hr 150 mg PO QHS #90 tabs 11/01/22 sustained-release lisinopril 2.5 mg tablet 2.5 mg PO DAILY #90 tabs 11/09/22 cyclobenzaprine 10 mg tablet 10 mg PO TID PRN muscle spasm #10 11/26/22 tabs methylprednisolone 4 mg tablets in See Rx Instructions PO PER PKG DIR 11/26/22 a dose pack (Medrol (Bj)) #21 dose pk Allergies Allergy/AdvReac Type Severity Reaction Status Date / Time morphine Allergy Mild ITCHING Unverified 11/26/22 11:26 ciprofloxacin Allergy Unknown Unverified 11/26/22 11:26 codeine Allergy Unknown Unverified 11/26/22 11:26 dextromethorphan Allergy Unknown Unverified 11/26/22 11:26 [From Nuedexta] pollen extracts Allergy Unknown Unverified 11/26/22 11:26 quinidine [From Nuedexta] Allergy Unknown Unverified 11/26/22 11:26 Sulfa (Sulfonamide Allergy Unknown Unverified 11/26/22 11:26 Antibiotics) General Stated Complaint: AMS/LOC RERE: 3 Review of Systems Narrative: see HPI PFSH All Active Problems (Updated 11/29/22 @ 19:29 by Bess Houser MD) Intracranial hemorrhage (Acute) Muscular deconditioning (Acute) Hypertension (Chronic) COVID-19 (Acute) UTI (urinary tract infection) (Acute) Generalized weakness (Acute) Chronic diarrhea (Chronic) Mild cognitive impairment (Chronic) Diabetes (Chronic) COVID-19 (Acute) 11/24/21 Vaccinated, boosted Umbilical hernia (Acute) Back pain (Acute) Diarrhea (Acute) Urinary frequency (Acute) Tachycardia (Chronic) MARTA (obstructive sleep apnea) (Chronic) Does not use CPAP Hyperlipidemia (Acute) Arthritis (Acute) Knees, lower back, shoulders Acute CVA (cerebrovascular accident) (Acute) 2018 and 2019 Chronic low back pain (Acute) Lumbar facet arthropathy (Acute) Lumbar spondylosis (Acute) without myelopathy or radiculopathy 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 Heart disease (Acute) Cerebral amyloid angiopathy (Acute) Generalized tonic-clonic seizure (Acute) Only 1 seizure ever after first CVA Diabetic peripheral neuropathy (Acute) Very mild Medical History Bilateral inguinal hernia 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 Status post appendectomy At age 13 Family History Mother Heart disease Dementia Father Heart disease Alzheimer disease Brother Alcohol use disorder Depression Heart disease Grandfather Heart disease Grandfather Personal history of malignant neoplasm LUNG Grandmother Essential hypertension Heart disease Grandmother Diabetes Essential hypertension Personal history of malignant neoplasm COLON Heart disease Social History (Updated 09/10/22 @ 12:31 by Chelly Vivas) Smoking/Tobacco Use Status: Former Tobacco Use tobacco type: cigarettes Quit Date: 04/17/88 Second Hand Exposure: Yes Smoking risk assessment performed?: Yes Alcohol Intake: current Alcohol Intake frequency: a few times a month Alcohol type: beer Drug use: Never Substance use type: does not use Caregiver/Support person: Yes Household members: significant other, friend(s) and caregiver Housing: house Do you need help understanding health information?: Often Pets and animals: Yes Pets and animals: cat(s) and dog(s) Sexually active: No Do you think of yourself as: straight/heterosexual Current gender identity: male What is your relationship status?: living with partner How often do you talk on the phone with friends or family?: three or more times per week How often do you get together with friends or relatives?: once per week How often do you attend alevism or judaism services?: decline to answer Do you belong to any clubs or organized social groups?: no Panel score (0-1 are the most socially isolated patients): 2 What type of physical activity do you participate in: none Frequency: does not exercise Yaima/Mormonism: No preference Special yaima needs: No Seatbelt use: always Drive intox or ride w/intox lyft driver: No Do you feel safe at home: Yes Do you feel safe in your relationship?: Yes Exam Narrative Exam Narrative: General: Alert, well appearing, well nourished, in no acute distress. Head: Normocephalic, atraumatic Neck: Trachea midline, Neck supple. ENT: MMM. No oropharygeal lesions or exudate. Cardiac: RRR, no murmurs appreciated Resp: No respiratory distress. CTAB. Abd: Soft, non-distended, nontender : No suprapubic tenderness. No CVA tenderness. Extremities: No deformities. No peripheral edema. Neuro: GCS 14. Oriented to person and place, able to narrow time down to Mid-November. PERRL. EOMI. Fluent speech, no dysarthria. Motor- 5/5 strength symmetric bilateral upper and lower extremities including shoulder abductors/adductors, elbow flexors/extensors, wrist flexors/extensors, finger abductors/adductors, hipflexors/extensors, knee flexors/extensors, ankle dorsiflexors and planter flexors. Sensation- Intact to light touch and symmetric multiple dermatomes including up per and lower extremities Coordination- No dysmetria on finger to nose CRANIAL NERVES: II: Pupils equal and reactive, III, IV, : EOM intact, no gaze preference or deviation, no nystagmus. V: normal sensation in V1, V2, and V3 segments bilaterally VII: no asymmetry, no nasolabial fold flattening VIII: normal hearing to speech XI: 5/5 head turn and 5/5 shoulder shrug bilaterally Course Vital Signs Vital signs: Vital Signs Temperature 37.4 C 11/29/22 12:30 Pulse 61 11/29/22 12:30 Respiratory Rate 16 11/29/22 12:30 Blood Pressure 159/93 H 11/29/22 12:30 Pulse Oximetry 99 11/29/22 12:30 Temperature 37.4 C 11/29/22 12:30 Temperature Source Oral 11/29/22 12:30 Pulse 61 11/29/22 12:30 Respiratory Rate 16 11/29/22 13:17 Respiratory Effort Normal 11/29/22 13:17 Respiratory Depth Normal 11/29/22 13:17 Respiratory Pattern Normal 11/29/22 13:17 Blood Pressure 159/93 H 11/29/22 12:30 Blood Pressure Position Sitting 11/29/22 12:30 Pulse Oximetry 99 11/29/22 12:30 Oxygen Delivery Method Room Air 11/29/22 12:30 Oxygen Flow Rate 0 11/29/22 12:30 Lab/Test Results Lab/Test Results: Laboratory Tests Range/Units 11/29/22 13:13 WBC (4.4-10.8) 10^3/uL 8.50 RBC (4.36-5.78) 10^6/uL 4.74 Hgb (13.5-17.5) g/dL 13.6 Hct (40.0-50.0) % 42.1 MCV (80-95) fL 89 MCH (27.0-33.0) pg 28.7 MCHC (32.0-36.0) % 32.3 RDW (11.8-14.1) % 12.4 Plt Count (130-400) 10^3/uL 261 MPV (8.0-11.0) fL 9.2 Immature Gran % 0.4 Neutrophils % 79.7 Lymphocytes % 13.4 Monocytes % 5.4 Eosinophils % 0.5 Basophils % 0.6 Nucleated RBC % (0.0-0.3) % 0.0 Absolute Neutrophils (1.2-6.7) 10^3/uL 6.78 H Absolute Lymphocytes (1.2-3.4) 10^3/uL 1.14 L Absolute Monocytes (0.1-0.8) 10^3/uL 0.46 Absolute Eosinophils (0.0-0.7) 10^3/uL 0.04 Absolute Basophils (0.0-0.2) 10^3/uL 0.05 Critical Care Time Critical Care Time Total Critical Care Time: 34 Attestation: Due to a high probability of clinically significant, life threatening deterioration, the patient required my highest level of preparedness to intervene emergently and I personally spent this critical care time directly and personally managing the patient. This critical care time included obtaining a history; examining the patient; pulse oximetry; ordering and review of studies; arranging urgent treatment with development of a management plan; evaluation of patient's response to treatment; frequent reassessment; and, discussions with other providers. This critical care time was performed to assess and manage the high probability of imminent, life-threatening deterioration that could result in multi-organ failure. It was exclusive of separately billable procedures.
[2022-11-29] MEDS: Ondansetron 4 MG/2 ML VIAL IVP (13:34)
[2022-11-29 13:35] LABS: Ammonia 15 umol/L (11-32)
[2022-11-29 13:39] LABS: ALT 23 U/L (16-63); AST 13 U/L (15-37); Alkaline Phosphatase 99 U/L (46-116); Anion Gap 9.8 mmol/L (3-11); BUN 23 mg/dL (7-18); Bilirubin, Total 0.6 mg/dL (0.2-1.0); CO2 29.2 mmol/L (21.0-32.0); CREATININE 1.5 mg/dL (0.70-1.30); Calcium 9.3 mg/dL (8.5-10.1); Chloride 105 mmol/L (98-107); Estimated GFR 50.71 (mL/min/1.73m2); Glucose 126 mg/dL (74-106); Magnesium 1.9 mg/dL (1.8-2.4); Sodium 144 mmol/L (136-145); Total Protein 8.1 g/dL (6.4-8.2); Troponin I < 50 ng/L (<or=60)
[2022-11-29 13:40] LABS: ETHANOL BLOOD < 3.0 mg/dL (<10)
[2022-11-29 14:19] LABS: TSH (W/Ref FT4) 4.85 uIU/mL (0.36-3.74)
[2022-11-29 14:29] LABS: Bilirubin Negative (Negative); Blood Negative (Negative); Clarity Clear (Clear); Glucose Negative (Negative); Ketones Negative (Negative); Leukocyte Esterase Negative (Negative); Nitrite Negative (Negative); Specific Gravity 1.025 (1.005-1.025); Urobilinogen 0.2 mg/dL (Up to 0.2); pH 6.5 (5-8)
[2022-11-29 14:34] LABS: FREE T4 1.06 ng/dL (0.76-1.46)
[2022-11-29 14:38] LABS: Bacteria Negative HPF (Negative); C & S Indicated? No; Casts Negative LPF (Negative); Crystals Negative HPF (Negative); Epithelial Cells Rare HPF (Negative); Mucus Trace (Negative); RBC 0-2 HPF (0-2); WBC 0-2 HPF (0-5)
[2022-11-29] MEDS: Normal Saline Flush 10 ML SYR IVP (14:40)
[2022-11-29] MEDS: Omnipaque 350 MG/ML 100 ML BTL IJ (14:40)
[2022-11-29] MEDS: Normal Saline - Diluent 50 ML VIAL IJ (14:40)
[2022-11-29 16:53] LABS: Troponin I < 50 ng/L (<or=60)
== END 2022-11-29 19:34 | disposition short-term general hospital (02) ==
PROVIDERS: Registered Nurse Emergency; Emergency Provider Student in an Organized Health Care Education/Training Program; PCP Nurse Practitioner Family
DX: I62.9 Nontraumatic intracranial hemorrhage, unspecified (principal); R41.82 Altered mental status, unspecified; R11.10 Vomiting, unspecified; M54.50 Low back pain, unspecified
CPT/HCPCS: 80053; 93005; 96374; 99291; 70450; 74177; 80320; 81003; 81015; 82140; 83735; 84439; 84443; 84484; 85025; 93010; J2405; J3490

== ENCOUNTER 2022-12-17 16:33 | Inpatient (IN) | payer MEDICARE, BC, SELFPAY ==
[2022-12-17] VITALS (8 sets, daily range): BP systolic 110–165; BP diastolic 88–137; PULSE 75–112; RESP 15–16; TEMP 37–37.1; O2SAT 93–97
--- NOTE | 2022-12-17 16:45 | DI.CT_ITS ---
Exam(s) CT HEAD WO EXAM: CT HEAD WO CLINICAL HISTORY: trauma, altered, recent bleed. TECHNIQUE: Imaging Protocol: Axial computed tomography images with coronal and sagittal reformatted images were created and reviewed COMPARISON: CT CT HEAD WO from 11/29/2022 FINDINGS: Ventricles and Extra axial spaces: Normal in size and morphology for the patient's age. Hemorrhage: There is again seen an intraparenchymal hemorrhage with surrounding edema in the left tem poral lobe. It is shown interval decrease in size and density since 11/29/2022. No new hemorrhage is seen. Cerebral parenchyma: There are areas of decreased attenuation in the white matter most likely reflect ing microvascular ischemic change. There is an old right frontal infarct. Midline shift: None. Brainstem/Cerebellum: Normal. Calvarium: Normal. Visualized Paranasal sinuses/Mastoids: Mucoperiosteal thickening is seen in the sphenoids and ethmoid air cells. Soft Tissues: Unremarkable. IMPRESSION: 1. Interval decrease in size and density of the patient's known left temporal lobe hematoma. 2. No acute hemorrhage or infarct is identified. 3. No evidence of hydrocephalus. RADIATION DOSE DELIVERED: 725.51mGy.cm Total DLP DATA REPOSITORY: All CT scans at this facility are submitted to the National Radiology Data Registry (NRDR) Dose Index Registry (DIR) with the [employer] ([employer]). RADIATION OPTIMIZATION: All CT scans at this facility use at least one of these dose optimization te chniques: automated exposure control; mA and/or kV adjustment per patient size (includes targeted exa ms where dose is matched to clinical indication); or iterative reconstruction.
[2022-12-17 17:12] LABS: Abs Immature Grans 0.04 10^3/uL (0.0-0.06); Absolute Basophil Count 0.05 10^3/uL (0.0-0.2); Absolute Eosinophil Count 0.24 10^3/uL (0.0-0.7); Absolute Lymphocyte Count 2.22 10^3/uL (1.2-3.4); Absolute Monocyte Count 0.75 10^3/uL (0.1-0.8); Basophils % 0.5; Eosinophils % 2.5; HCT 42.7 % (40.0-50.0); HGB 13.9 g/dL (13.5-17.5); Immature Grans % 0.4; Lymphocytes % 23.4; MCHC 32.6 % (32.0-36.0); MCV 89 fL (80-95); MPV 9.2 fL (8.0-11.0); Monocytes % 7.9; Neutrophils % 65.3; Platelet Count 295 10^3/uL (130-400); RDW 12.6 % (11.8-14.1); RDW-SD 41.6 fL
--- NOTE | 2022-12-17 17:15 | DI.CT_ITS ---
Exam(s) CT CHEST/ABD/PEL W EXAM: CT CHEST/ABD/PEL W CLINICAL HISTORY: pain rt ribs and abd, mulitple falls TECHNIQUE: Imaging Protocol: Axial computed tomography images with coronal and sagittal reformatted images were created and reviewed CONTRAST MATERIAL: Intravenous: Omnipaque 350 contrast volume:100 mL Oral: No COMPARISON: CT CT CHEST PE ABD PELVIS W from 11/30/[address] HEAD WO from 11/29/[address] ABDOMEN PELVIS W from 11/29/2022 FINDINGS: CHEST: Tracheobronchial tree: Patent where visualized. Pulmonary parenchyma: No consolidation or dominant measurable mass. No architectural distortion. Visualized thyroid gland: Unremarkable. Mediastinum and Gilma: No dominant adenopathy or fluid collection. The esophagus is unremarkable. Pleura: No effusion or pneumothorax. Heart: The heart is not dilated. Mild coronary artery calcification. No pericardial effusion. Pulmonary arteries: The pulmonary arteries are inadequately opacified for evaluation of pulmonary emb olic disease. No large central pulmonary embolus is seen. Aorta: Thoracic aorta non-dilated. Mild atherosclerosis. Lymph nodes: Within normal limits. Soft tissues: Unremarkable. Bones:Within normal limits for the patient's age. No displaced rib fractures are seen. ABDOMEN: Liver: Normal density. No measurable mass. Portal, Superior Mesenteric, and Splenic Veins: Unremarkable. Gallbladder and Biliary Tract: No radiodense calculus or dilation. Pancreas: There is a 1.8 x 1.3 cm area of decreased attenuation in the head of the pancreas. (Series 8, image 599). There is also ill-defined soft tissue seen at the junction of the head and body of t he pancreas which appears to encapsulate the portion a portion of the splenic vein. There are access ory vessel seen in the left upper quadrant. Spleen: Normal. Adrenals: No masses seen. Kidneys: Normal size, contour and axis. Bilateral nephrolithiasis. No masses seen. Abdominal Aorta: Abdominal portion non-dilated. Mild atherosclerosis. Bowel: No obstruction or bowel wall thickening. No evidence of appendicitis. Peritoneal Cavity: No ascites, collection or mesenteric inflammatory response. No free air. Lymph Nodes: Within normal limits. Bones: Within normal limits for the patient's age. There are old thoracic and lumbar compression fra cture deformities. Soft Tissues: There are bilateral fat containing inguinal hernias. PELVIS: Bladder: Symmetric distention, no gross wall thickening. Reproductive Organs: Unremarkable as visualized. Lymph Nodes: Within normal limits. Bones: Within normal limits. IMPRESSION: 1. No acute pulmonary process. 2. No acute abdominal or pelvic organ injury. 3. Findings suspicious for pancreatic mass. There is soft tissue at the junction of the body and hea d of the pancreas which appears to cause obstruction of the splenic vein. An MRI of the abdomen with out and with contrast is recommended for further evaluation. 4. Findings were discussed with Dr. Radford at 7:56 a.m. on 12/18/2022. RADIATION DOSE DELIVERED: 1,649.14mGy.cm Total DLP DATA REPOSITORY: All CT scans at this facility are submitted to the National Radiology Data Registry (NRDR) Dose Index Registry (DIR) with the [employer] (A[employer]). RADIATION OPTIMIZATION: All CT scans at this facility use at least one of these dose optimization te chniques: automated exposure control; mA and/or kV adjustment per patient size (includes targeted exa ms where dose is matched to clinical indication); or iterative reconstruction.
--- NOTE | 2022-12-17 17:23 | ED.GENADUL_ITS ---
Discharge Plan Disposition Patient Disposition: Admit to [facility] Condition: Serious Discharge Details Clinical Impression: Frequent falls, Generalized weakness, Dizziness, Orthostatic hypotension Primary Care Provider: Maynor Hunt ED Provider: Jovany Rodriguez Home Meds and New Rx's Prescriptions: No Action bupropion HCl 100 mg tablet 100 mg PO DAILY cyclobenzaprine 10 mg tablet 10 mg PO BID PRN (Reason: muscle spasm) Qty: 90 0RF ipratropium bromide 21 mcg (0.03 %) spray,non-aerosol 2 spray intranasal TID Qty: 30 3RF Rx Instructions: administer into each nostril lisinopril 10 mg tablet 10 mg PO DAILY Qty: 90 3RF atorvastatin 10 mg tablet 10 mg PO HS Qty: 90 3RF divalproex 250 mg tablet extended release 24 hr 750 mg PO BID memantine 28 mg capsule,sprinkle,ER 24hr 28 mg PO DAILY donepezil 10 mg tablet 10 mg PO BID Qty: 180 3RF flecainide 100 mg tablet 100 mg PO BID Qty: 180 3RF metformin 500 mg tablet extended release 24 hr 500 mg PO DAILY Qty: 180 3RF bupropion HCl 150 mg tablet sustained-release 12 hr 150 mg PO QHS Qty: 90 3RF metoprolol succinate 50 mg tablet extended release 24 hr 50 mg PO DAILY Qty: 90 3RF oxycodone 5 mg tablet 5 mg PO BID MDD 10mg PRN (Reason: pain) Qty: 20 0RF trazodone 50 mg tablet 50 mg PO QHS PRN (Reason: sleep) Qty: 60 0RF Medical Decision Making 1730 --67-year-old male with history of hemorrhagic CVA, dementia with mild cognitive impairment, here with altered mental status from his baseline, unsteady gait with frequent falls including one last night into the bathtub. Significant other is concerned for acute change in mentation and significant fatigue today. Consider acute life-threatening intracranial traumatic hemorrhage. Plan to obtain CT of the head. Unreliable exam and consider other traumatic injury. Patient has complained of abdominal pain recently. Plan to obtain CT of the chest abdomen pelvis. Consider C-spine fracture will obtain CT of the cervical spine. 1930 --CT of the chest abdomen pelvis was interpreted by radiology: No acute findings. Chronic midthoracic deformity at T5 with severe loss of height anteriorly. No acute fracture or subluxation. CT of the head was interpreted by Todd: Diffuse atrophy and chronic ischemic changes with some interval decrease in size and density of the known intraparenchymal hematoma seen along the superior margin of the anterior left temporal lobe. No evidence of acute transcortical infarction, additional intracranial hemorrhage or hydrocephalus. CT of the cervical spine is pending. Attempted to ambulate the patient and he was unsteady on his feet even with walker use needed assistance. Patient felt dizzy and almost fell. Patient's partner notes that PT has been coming to the house and that he has not been able to participate in recent therapy because he feels dizzy at times. Patient did have orthostatic blood pressure change when standing with drop in systolic blood pressure 50. Plan to admit for further diagnostics, treatment including intensive physical therapy, treatment of orthostatic hypotension, and likely placement in nursing rehab facility. I called and spoke with Dr. Mitchell, discussed ED presentation and course, he will evaluate the patient in the emergency department. CT of the cervical spine was interpreted virology: No cervical spine fracture. Lab Data Lab results reviewed: Yes I reviewed the patient's lab results. Labs: Laboratory Tests Range/Units 12/17/22 12/17/22 12/17/22 17:05 17:05 17:05 WBC (4.4-10.8) 10^3/uL 9.50 RBC (4.36-5.78) 10^6/uL 4.80 Hgb (13.5-17.5) g/dL 13.9 Hct (40.0-50.0) % 42.7 MCV (80-95) fL 89 MCH (27.0-33.0) pg 29.0 MCHC (32.0-36.0) % 32.6 RDW (11.8-14.1) % 12.6 Plt Count (130-400) 10^3/uL 295 MPV (8.0-11.0) fL 9.2 Immature Gran % 0.4 Neutrophils % 65.3 Lymphocytes % 23.4 Monocytes % 7.9 Eosinophils % 2.5 Basophils % 0.5 Nucleated RBC % (0.0-0.3) % 0.0 Absolute Neutrophils (1.2-6.7) 10^3/uL 6.20 Absolute Lymphocytes (1.2-3.4) 10^3/uL 2.22 Absolute Monocytes (0.1-0.8) 10^3/uL 0.75 Absolute Eosinophils (0.0-0.7) 10^3/uL 0.24 Absolute Basophils (0.0-0.2) 10^3/uL 0.05 Sodium (136-145) mmol/L 141 Potassium (3.5-5.1) mmol/L 3.8 Chloride (98-107) mmol/L 103 Carbon Dioxide (21.0-32.0) mmol/L 29.3 Anion Gap (3-11) mmol/L 8.7 BUN (7-18) mg/dL 30 H Creatinine (0.70-1.30) mg/dL 1.3 Est GFR (CKD-EPI 2020) (mL/min/1.73m2) 60.21 Glucose (74-106) mg/dL 124 H Calcium (8.5-10.1) mg/dL 9.2 Total Bilirubin (0.2-1.0) mg/dL 0.4 AST (15-37) U/L 6 L ALT (16-63) U/L 9 L Alkaline Phosphatase (46-116) U/L 83 Total Protein (6.4-8.2) g/dL 7.5 Albumin (3.4-5.0) g/dL 3.2 L Urine Color (Yellow) Urine Clarity (Clear) Urine pH (5-8) Ur Specific [place] (1.005-1.025) Urine Protein (Negative) mg/dL Urine Ketones (Negative) mg/dL Urine Blood (Negative) Urine Nitrite (Negative) Urine Bilirubin (Negative) Urine Urobilinogen (Up to 0.2) mg/dL Ur Leukocyte Esterase (Negative) Urine RBC (0-2) HPF Urine WBC (0-5) HPF Ur Epithelial Cells (Negative) HPF Urine Crystals (Negative) HPF Urine Bacteria (Negative) HPF Urine Mucus (Negative) Ur Culture Indicated? Urine Glucose (Negative) mg/dL Patient ABO/Rh O Positive Antibody Screen NEGATIVE Range/Units 12/17/22 18:58 WBC (4.4-10.8) 10^3/uL RBC (4.36-5.78) 10^6/uL Hgb (13.5-17.5) g/dL Hct (40.0-50.0) % MCV (80-95) fL MCH (27.0-33.0) pg MCHC (32.0-36.0) % RDW (11.8-14.1) % Plt Count (130-400) 10^3/uL MPV (8.0-11.0) fL Immature Gran % Neutrophils % Lymphocytes % Monocytes % Eosinophils % Basophils % Nucleated RBC % (0.0-0.3) % Absolute Neutrophils (1.2-6.7) 10^3/uL Absolute Lymphocytes (1.2-3.4) 10^3/uL Absolute Monocytes (0.1-0.8) 10^3/uL Absolute Eosinophils (0.0-0.7) 10^3/uL Absolute Basophils (0.0-0.2) 10^3/uL Sodium (136-145) mmol/L Potassium (3.5-5.1) mmol/L Chloride (98-107) mmol/L Carbon Dioxide (21.0-32.0) mmol/L Anion Gap (3-11) mmol/L BUN (7-18) mg/dL Creatinine (0.70-1.30) mg/dL Est GFR (CKD-EPI 2020) (mL/min/1.73m2) Glucose (74-106) mg/dL Calcium (8.5-10.1) mg/dL Total Bilirubin (0.2-1.0) mg/dL AST (15-37) U/L ALT (16-63) U/L Alkaline Phosphatase (46-116) U/L Total Protein (6.4-8.2) g/dL Albumin (3.4-5.0) g/dL Urine Color (Yellow) Yellow Urine Clarity (Clear) Clear Urine pH (5-8) 6.0 Ur Specific [place] (1.005-1.025) 1.015 Urine Protein (Negative) mg/dL Trace H Urine Ketones (Negative) mg/dL Trace H Urine Blood (Negative) Negative Urine Nitrite (Negative) Negative Urine Bilirubin (Negative) Negative Urine Urobilinogen (Up to 0.2) mg/dL 0.2 Ur Leukocyte Esterase (Negative) Negative Urine RBC (0-2) HPF 3-5 H Urine WBC (0-5) HPF 5-10 Ur Epithelial Cells (Negative) HPF Moderate Urine Crystals (Negative) HPF Negative Urine Bacteria (Negative) HPF Negative Urine Mucus (Negative) Heavy Ur Culture Indicated? No/Sq. Contamination Urine Glucose (Negative) mg/dL Negative Patient ABO/Rh Antibody Screen HPI General Mode of arrival: EMS . Date/Time Provider Initiated Documentation: 12/17/22 16:52 . Limitations to Documentation: no limitations . Information obtained by: family . HPI Narrative: 67-year-old male with history of dementia, hemorrhagic CVAs, [place] [facility] [place] for [place] CV[place],, here with his significant other who is concerned about persistent altered mental status, frequent falls, and possible head trauma. She notes since discharge he has had an unsteady gait. She notes she has had to assist him with ambulation and is actually hurt her own hip in doing so. Patient apparently wanders at night and has had frequent falls including last night falling into the bathtub. She notes that this morning he was quite fatigued and slept longer than usual and has difficulty arousing. She notes she is altered from his baseline today. He has had frequent urination and incontinence of urine since discharge. She notes he is complained of some abdominal pain. Patient denies complaint. History review of systems limited secondary to altered mental status. Related Data Home Medications Medication Instructions Recorded Confirmed memantine 28 mg capsule 28 mg PO DAILY 08/14/21 12/17/22 sprinkle,extended release 24hr bupropion HCl 100 mg tablet 100 mg PO DAILY 08/20/21 12/17/22 ipratropium bromide 21 mcg (0.03 2 spray intranasal TID #30 mL 09/27/21 12/17/22 %) nasal spray cyclobenzaprine 10 mg tablet 10 mg PO BID PRN muscle spasm #90 03/03/22 12/17/22 tab-caps donepezil 10 mg tablet 10 mg PO BID #180 tabs 06/15/22 12/17/22 flecainide 100 mg tablet 100 mg PO BID #180 tabs 06/15/22 12/17/22 metformin 500 mg tablet,extended 500 mg PO DAILY #180 tabs 06/30/22 12/17/22 release 24 hr bupropion HCl 150 mg tablet,12 hr 150 mg PO QHS #90 tabs 11/01/22 12/17/22 sustained-release metoprolol succinate 50 mg 50 mg PO DAILY #90 tabs 12/05/22 12/17/22 tablet,extended release 24 hr atorvastatin 10 mg tablet 10 mg PO HS #90 tab-caps 12/07/22 12/17/22 divalproex 250 mg tablet,extended 750 mg PO BID 12/07/22 12/17/22 release 24 hr lisinopril 10 mg tablet 10 mg PO DAILY #90 tabs 12/07/22 12/17/22 oxycodone 5 mg tablet 5 mg PO BID PRN pain #20 tabs 12/13/22 12/17/22 trazodone 50 mg tablet 50 mg PO QHS PRN sleep #60 tabs 12/14/22 12/17/22 Previous Rx's Medication Instructions Recorded ipratropium bromide 21 mcg (0.03 2 spray intranasal TID #30 mL 09/27/21 %) nasal spray cyclobenzaprine 10 mg tablet 10 mg PO BID PRN muscle spasm #90 03/03/22 tab-caps donepezil 10 mg tablet 10 mg PO BID #180 tabs 06/15/22 flecainide 100 mg tablet 100 mg PO BID #180 tabs 06/15/22 metformin 500 mg tablet,extended 500 mg PO DAILY #180 tabs 06/30/22 release 24 hr bupropion HCl 150 mg tablet,12 hr 150 mg PO QHS #90 tabs 11/01/22 sustained-release metoprolol succinate 50 mg 50 mg PO DAILY #90 tabs 12/05/22 tablet,extended release 24 hr atorvastatin 10 mg tablet 10 mg PO HS #90 tab-caps 12/07/22 lisinopril 10 mg tablet 10 mg PO DAILY #90 tabs 12/07/22 oxycodone 5 mg tablet 5 mg PO BID PRN pain #20 tabs 12/13/22 trazodone 50 mg tablet 50 mg PO QHS PRN sleep #60 tabs 12/14/22 Allergies Allergy/AdvReac Type Severity Reaction Status Date / Time morphine Allergy Mild ITCHING Verified 12/17/22 16:39 ciprofloxacin Allergy Unknown Verified 12/17/22 16:39 codeine Allergy Unknown Verified 12/17/22 16:39 dextromethorphan Allergy Unknown Verified 12/17/22 16:39 [From Nuedexta] pollen extracts Allergy Unknown Verified 12/17/22 16:39 quinidine [From Nuedexta] Allergy Unknown Verified 12/17/22 16:39 Sulfa (Sulfonamide Allergy Unknown Verified 12/17/22 16:39 Antibiotics) General Stated Complaint: GenMedical RERE: 3 Review of Systems Unobtainable due to mental status PFSH All Active Problems (Updated 12/17/22 @ 20:14 by Vikash Mitchell MD) Failure to thrive in adult (Acute) Frequent falls (Acute) Generalized weakness (Acute) Dizziness (Acute) Orthostatic hypotension (Acute) Intracranial hemorrhage (Acute) Muscular deconditioning (Acute) Hypertension (Chronic) COVID-19 (Acute) UTI (urinary tract infection) (Acute) Generalized weakness (Acute) Chronic diarrhea (Chronic) Mild cognitive impairment (Chronic) Diabetes (Chronic) COVID-19 (Acute) 11/24/21 Vaccinated, boosted Umbilical hernia (Acute) Back pain (Acute) Diarrhea (Acute) Urinary frequency (Acute) Tachycardia (Chronic) MARTA (obstructive sleep apnea) (Chronic) Does not use CPAP Hyperlipidemia (Acute) Arthritis (Acute) Knees, lower back, shoulders Acute CVA (cerebrovascular accident) (Acute) 2017 and 2018 Chronic low back pain (Acute) Lumbar facet arthropathy (Acute) Lumbar spondylosis (Acute) without myelopathy or radiculopathy 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 Heart disease (Acute) Cerebral amyloid angiopathy (Acute) Generalized tonic-clonic seizure (Acute) Only 1 seizure ever after first CVA Diabetic peripheral neuropathy (Acute) Very mild Medical History Bilateral inguinal hernia 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 Status post appendectomy At age 13 Family History Mother Heart disease Dementia Father Heart disease Alzheimer disease Brother Alcohol use disorder Depression Heart disease Grandfather Heart disease Grandfather Personal history of malignant neoplasm LUNG Grandmother Essential hypertension Heart disease Grandmother Diabetes Essential hypertension Personal history of malignant neoplasm COLON Heart disease Social History Smoking/Tobacco Use Status: Former Tobacco Use tobacco type: cigarettes Quit Date: 04/17/88 Second Hand Exposure: Yes Smoking risk assessment performed?: Yes Alcohol Intake: current Alcohol Intake frequency: a few times a month Alcohol type: beer Drug use: Never Substance use type: does not use Caregiver/Support person: Yes Household members: significant other, friend(s) and caregiver Housing: house Do you need help understanding health information?: Often Pets and animals: Yes Pets and animals: cat(s) and dog(s) Sexually active: No Do you think of yourself as: straight/heterosexual Current gender identity: male What is your relationship status?: living with partner How often do you talk on the phone with friends or family?: three or more times per week How often do you get together with friends or relatives?: once per week How often do you attend holiness or gnosticism services?: decline to answer Do you belong to any clubs or organized social groups?: no Panel score (0-1 are the most socially isolated patients): 2 What type of physical activity do you participate in: none Frequency: does not exercise Yaima/Bahai: No preference Special yaima needs: No Seatbelt use: always 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 Do you feel safe at home: Yes Do you feel safe in your relationship?: Yes Exam Const General: cooperative and no acute distress HENMT Head: normocephalic Mouth: moist mucous membranes Eyes Conjunctivae: normal conjunctivae Sclera: normal sclerae Resp Auscultation: clear to auscultation bilaterally, no rales, no rhonchi and no wheezes Cardio Rate: regular rate and not tachycardic Rhythm: regular rhythm GI Palpation: soft, not firm, no guarding, no masses, not rigid and tender (right upper abd) Skin General skin exam: no rashes or lesions noted Neuro General: patient alert, patient awake and oriented [place] [facility] [place] Patient Orientation: Person and Confused Cognition: abnormal cognition Speech: speech normal Motor: strength abnormal (4/5 strenght throughout) Sensory Exam: no sensory deficits noted Extrem General: no edema Psych Affect: blunted Course Vital Signs Vital signs: Vital Signs Temperature 37.1 C 12/17/22 16:40 Pulse 100 H 12/17/22 16:40 Respiratory Rate 16 12/17/22 16:40 Blood Pressure 146/95 H 12/17/22 16:40 Pulse Oximetry 97 12/17/22 16:40 Temperature 37.1 C 12/17/22 16:40 Temperature Source Temporal Artery Scan 12/17/22 16:40 Pulse 100 H 12/17/22 16:40 Respiratory Rate 16 12/17/22 16:40 Blood Pressure 146/95 H 12/17/22 16:40 Blood Pressure Position Sitting 12/17/22 16:40 Pulse Oximetry 97 12/17/22 16:40 Oxygen Delivery Method Room Air 12/17/22 16:40 Oxygen Flow Rate 0 12/17/22 16:40 Pain Level 4 12/17/22 16:40 Lab/Test Results Lab/Test Results: Laboratory Tests Range/Units 12/17/22 17:05 WBC (4.4-10.8) 10^3/uL 9.50 RBC (4.36-5.78) 10^6/uL 4.80 Hgb (13.5-17.5) g/dL 13.9 Hct (40.0-50.0) % 42.7 MCV (80-95) fL 89 MCH (27.0-33.0) pg 29.0 MCHC (32.0-36.0) % 32.6 RDW (11.8-14.1) % 12.6 Plt Count (130-400) 10^3/uL 295 MPV (8.0-11.0) fL 9.2 Immature Gran % 0.4 Neutrophils % 65.3 Lymphocytes % 23.4 Monocytes % 7.9 Eosinophils % 2.5 Basophils % 0.5 Nucleated RBC % (0.0-0.3) % 0.0 Absolute Neutrophils (1.2-6.7) 10^3/uL 6.20 Absolute Lymphocytes (1.2-3.4) 10^3/uL 2.22 Absolute Monocytes (0.1-0.8) 10^3/uL 0.75 Absolute Eosinophils (0.0-0.7) 10^3/uL 0.24 Absolute Basophils (0.0-0.2) 10^3/uL 0.05
[2022-12-17 17:33] LABS: ALT 9 U/L (16-63); AST 6 U/L (15-37); Albumin 3.2 g/dL (3.4-5.0); Alkaline Phosphatase 83 U/L (46-116); Anion Gap 8.7 mmol/L (3-11); BUN 30 mg/dL (7-18); Bilirubin, Total 0.4 mg/dL (0.2-1.0); CO2 29.3 mmol/L (21.0-32.0); CREATININE 1.3 mg/dL (0.70-1.30); Calcium 9.2 mg/dL (8.5-10.1); Chloride 103 mmol/L (98-107); Estimated GFR 60.21 (mL/min/1.73m2); Glucose 124 mg/dL (74-106); Potassium 3.8 mmol/L (3.5-5.1); Sodium 141 mmol/L (136-145); Total Protein 7.5 g/dL (6.4-8.2)
[2022-12-17] MEDS: Normal Saline - Diluent 50 ML VIAL IJ (18:16)
[2022-12-17] MEDS: Normal Saline Flush 10 ML SYR IVP (18:17)
[2022-12-17] MEDS: Omnipaque 350 MG/ML 100 ML BTL IJ (18:17)
--- NOTE | 2022-12-17 18:36 | DI.VRAD_ITS ---
PROCEDURE INFORMATION: Exam: CT Head Without Contrast Exam date and time: 12/17/2022 6:06 PM Age: 67 years old Clinical indication: Other: Trauma, altered, recent bleed TECHNIQUE: Imaging protocol: Computed tomography of the head without contrast. COMPARISON: CT HEAD WO 11/29/2022 2:40 PM FINDINGS: Brain: Prominence of cerebral sulci reflects diffuse cerebral atrophy. Poorly marginated hypodensities seen throughout the deep and periventricular white matter of both cerebral hemispheres are again consistent with microvascular ischemic changes with a superimposed area of cystic encephalomalacia along the anterolateral right frontal lobe again consistent with a chronic infarct. Hyperdense intraparenchymal hemorrhage and associated perilesional edema is again seen along the superior margin of the anterior left temporal lobe with interval decrease in the size and density of this hematoma. Brainstem and cerebellum are unremarkable and there is no evidence of acute transcortical infarction or additional sites of recent intracranial hemorrhage. Cerebral ventricles: Dilatation of the 3rd and lateral ventricles is commensurate with the degree of cerebral atrophy and ex vacuo effects adjacent to the chronic anterior right frontal infarction. Paranasal sinuses: Bilateral sphenoethmoid mucosal disease noted. Mastoid air cells: Grossly clear bilaterally. Bones/joints: Bony calvarium and skull base are intact and no acute fractures are detected. Soft tissues: Unremarkable. IMPRESSION: Diffuse atrophy and chronic ischemic changes with some interval decrease in the size and density of the known intraparenchymal hematoma seen along the superior margin of the anterior left temporal lobe as above. There is no evidence of acute transcortical infarction, additional intracranial hemorrhage or hydrocephalus. Dictated and Authenticated by: Bishop Enriquez MD. Ordering:ALTAF Manzo MD
--- NOTE | 2022-12-17 18:49 | DI.VRAD_ITS ---
PROCEDURE INFORMATION: Exam: CT Chest With Contrast; Diagnostic Exam date and time: 12/17/2022 18:09 Age: 67 years old Clinical indication: Other: Pain RT ribs and abd, mulitple falls TECHNIQUE: Imaging protocol: Diagnostic computed tomography of the chest with contrast. 3D rendering (Not supervised by radiologist): MIP and/or 3D reconstructed images were created by the technologist. Contrast material: OMNIPAQUE 350; Contrast volume: 100 ml; Contrast route: INTRAVENOUS (IV); COMPARISON: CT CHEST/ABD/PEL WO 09/19/2021 12:23 FINDINGS: Lungs: The lungs appear hyperinflated. No airspace consolidation. Pleural spaces: No pneumothorax. No pleural effusion. Heart: No cardiomegaly. No pericardial effusion. Lymph nodes: No enlarged lymph nodes. Vasculature: No aortic aneurysm. Bones/joints: Chronic midthoracic deformity at T5 with severe loss of height anteriorly. No acute fracture or subluxation. Soft tissues: No suspicious lesions. IMPRESSION: 1. No acute findings. 2. Incidental findings as described. PROCEDURE INFORMATION: Exam: CT Abdomen And Pelvis With Contrast Exam date and time: 12/17/2022 18:09 Age: 67 years old Clinical indication: Other: Pain RT ribs and abd, mulitple falls TECHNIQUE: Imaging protocol: Computed tomography of the abdomen and pelvis with contrast. 3D rendering (Not supervised by radiologist): MIP and/or 3D reconstructed images were created by the technologist. Contrast material: OMNIPAQUE 350; Contrast volume: 100 ml; Contrast route: INTRAVENOUS (IV); COMPARISON: CT ABDOMEN PELVIS W 11/29/2022 14:40 FINDINGS: Liver: No mass. Gallbladder and bile ducts: No calcified stones. No ductal dilation. Pancreas: No ductal dilation. No masses. Spleen: No splenomegaly or focal lesions. Adrenal glands: No mass. Kidneys and ureters: Nonobstructive bilateral nephrolithiasis. No renal masses or hydronephrosis bilaterally. Stomach and bowel: Benign appearing duodenal diverticulum. Colonic diverticulosis without diverticulitis. No focal pathology in the small bowel. Appendix: No evidence of appendicitis. Intraperitoneal space: No free air. No significant fluid collection. Vasculature: No abdominal aortic aneurysm. Lymph nodes: No significantly enlarged lymph nodes. Urinary bladder: Unremarkable as visualized. Reproductive: Mild prostatic enlargement. Bones/joints: Chronic mild deformity of L1. Degenerative changes in the spine. No acute fracture or subluxation. Soft tissues: Small fat-containing right inguinal hernia. Small fat-containing left inguinal hernia. IMPRESSION: 1. No acute findings. 2. Incidental findings as described. Dictated and Authenticated by: Jayla Martin MD. Ordering:ALTAF Manzo MD
[2022-12-17 19:08] LABS: Bilirubin Negative (Negative); Blood Negative (Negative); Clarity Clear (Clear); Glucose Negative (Negative); Ketones Trace mg/dL (Negative); Leukocyte Esterase Negative (Negative); Nitrite Negative (Negative); Specific Gravity 1.015 (1.005-1.025); Urobilinogen 0.2 mg/dL (Up to 0.2)
[2022-12-17 19:17] LABS: Bacteria Negative HPF (Negative); Crystals Negative HPF (Negative); Epithelial Cells Moderate HPF (Negative); Mucus Heavy (Negative)
[2022-12-17 19:18] LABS: C & S Indicated? No/Sq. Contamination
--- NOTE | 2022-12-17 19:30 | DI.CT_ITS ---
Exam(s) CT CERVICAL SPINE WO EXAM: CT CERVICAL SPINE WO CLINICAL HISTORY: fall. TECHNIQUE: Imaging Protocol: Axial computed tomography images with coronal and sagittal reformatted images were created and reviewed COMPARISON: No exams were available for comparison FINDINGS: Bones: No acute fracture or subluxation. Degenerative changes are seen in the cervical spine. There is straightening of the normal cervical lordosis which may be due to muscle spasm or patient position ing. Soft Tissues: Unremarkable. Lung Apices: Clear. IMPRESSION: No acute fracture or subluxation in the cervical spine. RADIATION DOSE DELIVERED: 563.57mGy.cm Total DLP 563.57mGy.cm Total DLP DATA REPOSITORY: All CT scans at this facility are submitted to the National Radiology Data Registry (NRDR) Dose Index Registry (DIR) with the [employer] (A[employer]). RADIATION OPTIMIZATION: All CT scans at this facility use at least one of these dose optimization te chniques: automated exposure control; mA and/or kV adjustment per patient size (includes targeted exa ms where dose is matched to clinical indication); or iterative reconstruction.
--- NOTE | 2022-12-17 20:01 | W.PM.HP.N ---
Date of service: 12/17/22 Time of Service: 20:01 Assessment and Plan Assessment and plan (1) Failure to thrive in adult: Status: Acute Assessment and plan: Multifactorial failure to thrive. I think the more immediate issue is apparent orthostatic hypotension, probably medication related, though the resting hypertension might suggest a degree of dysautonomia as well. All occurring in the setting of baseline dementia, recent stroke and up titration of meds. The pyuria is noted but likely false positive given contamination and lack of bacteruria, but will attempt clean catch. Will attempt to wean back the Lisinopril and will start to roll back the dose of Depakote as tolerated (will check level now to see where we're at). Will get PT involved as well and will likely need course of Rehab. Reviewed ADs, caregiver (POA) reports DNR status. History of Present Illness History of Present Illness Chief Complaint: falling Narrative: 67 male with h/o dementia, HTN -- here two weeks [employer] with cerebral hemorrhage of left temporal lobe, transferred to [facility]. Home this past week but has not been doing well -- fatigued, lightheaded, falling. Had been ordered for home PT but unable to perform due to above. Caregiver unable to manage and was brought to ER for evaluation. In ER findings of note for marked orthostasis, CBC and basic chemistries unrevealing; U/A with 5-10 WBC/hpf but squamous contamination and no bacteria; CT head showing improvement of left temporal hematoma and no other acute findings; and CT chest, abdomen and pelvis without acute findings. Patient unable to provide much history but does confirm that it is lightheadedness and not vertigo he is experiencing when he stands. Caregiver provides balance of history. Notable changes in meds since hospitalization reported to include initiation of Trazadone (which however he has only taken once), and increases in both Depakote and Lisinopril. Review of Systems Narrative: per HPI PFSH All Active Problems (Updated 12/17/22 @ 20:14 by Vikash Mitchell MD) Failure to thrive in adult (Acute) Frequent falls (Acute) Generalized weakness (Acute) Dizziness (Acute) Orthostatic hypotension (Acute) Intracranial hemorrhage (Acute) Muscular deconditioning (Acute) Hypertension (Chronic) COVID-19 (Acute) UTI (urinary tract infection) (Acute) Generalized weakness (Acute) Chronic diarrhea (Chronic) Mild cognitive impairment (Chronic) Diabetes (Chronic) COVID-19 (Acute) 11/24/21 Vaccinated, boosted Umbilical hernia (Acute) Back pain (Acute) Diarrhea (Acute) Urinary frequency (Acute) Tachycardia (Chronic) MARTA (obstructive sleep apnea) (Chronic) Does not use CPAP Hyperlipidemia (Acute) Arthritis (Acute) Knees, lower back, shoulders Acute CVA (cerebrovascular accident) (Acute) 2018 and 2018 Chronic low back pain (Acute) Lumbar facet arthropathy (Acute) Lumbar spondylosis (Acute) without myelopathy or radiculopathy 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 Heart disease (Acute) Cerebral amyloid angiopathy (Acute) Generalized tonic-clonic seizure (Acute) Only 1 seizure ever after first CVA Diabetic peripheral neuropathy (Acute) Very mild Medical History Bilateral inguinal hernia 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 Status post appendectomy At age 13 Family History Mother Heart disease Dementia Father Heart disease Alzheimer disease Brother Alcohol use disorder Depression Heart disease Grandfather Heart disease Grandfather Personal history of malignant neoplasm LUNG Grandmother Essential hypertension Heart disease Grandmother Diabetes Essential hypertension Personal history of malignant neoplasm COLON Heart disease Social History Smoking/Tobacco Use Status: Former Tobacco Use tobacco type: cigarettes Quit Date: 04/17/88 Second Hand Exposure: Yes Smoking risk assessment performed?: Yes Alcohol Intake: current Alcohol Intake frequency: a few times a month Alcohol type: beer Drug use: Never Substance use type: does not use Caregiver/Support person: Yes Household members: significant other, friend(s) and caregiver Housing: house Do you need help understanding health information?: Often Pets and animals: Yes Pets and animals: cat(s) and dog(s) Sexually active: No Do you think of yourself as: straight/heterosexual Current gender identity: male What is your relationship status?: living with partner How often do you talk on the phone with friends or family?: three or more times per week How often do you get together with friends or relatives?: once per week How often do you attend hinduism or voodoo services?: decline to answer Do you belong to any clubs or organized social groups?: no Panel score (0-1 are the most socially isolated patients): 2 What type of physical activity do you participate in: none Frequency: does not exercise Yaima/Catholic: No preference Special yaima needs: No Seatbelt use: always Drive intox or ride w/intox experienced truck driver: No Do you feel safe at home: Yes Do you feel safe in your relationship?: Yes Meds Allergies and Home Medications Allergies Allergy/AdvReac Type Severity Reaction Status Date / Time morphine Allergy Mild ITCHING Verified 12/17/22 16:39 ciprofloxacin Allergy Unknown Verified 12/17/22 16:39 codeine Allergy Unknown Verified 12/17/22 16:39 dextromethorphan Allergy Unknown Verified 12/17/22 16:39 [From Nuedexta] pollen extracts Allergy Unknown Verified 12/17/22 16:39 quinidine [From Nuedexta] Allergy Unknown Verified 12/17/22 16:39 Sulfa (Sulfonamide Allergy Unknown Verified 12/17/22 16:39 Antibiotics) Home Medications Medication Instructions Recorded Confirmed Type memantine 28 mg capsule 28 mg PO DAILY 08/14/21 12/17/22 History sprinkle,extended release 24hr bupropion HCl 100 mg tablet 100 mg PO DAILY 08/20/21 12/17/22 History ipratropium bromide 21 mcg (0.03 2 spray intranasal TID #30 mL 09/27/21 12/17/22 Rx %) nasal spray cyclobenzaprine 10 mg tablet 10 mg PO BID PRN muscle spasm #90 03/03/22 12/17/22 Rx tab-caps donepezil 10 mg tablet 10 mg PO BID #180 tabs 06/15/22 12/17/22 Rx flecainide 100 mg tablet 100 mg PO BID #180 tabs 06/15/22 12/17/22 Rx metformin 500 mg tablet,extended 500 mg PO DAILY #180 tabs 06/30/22 12/17/22 Rx release 24 hr bupropion HCl 150 mg tablet,12 hr 150 mg PO QHS #90 tabs 11/01/22 12/17/22 Rx sustained-release metoprolol succinate 50 mg 50 mg PO DAILY #90 tabs 12/05/22 12/17/22 Rx tablet,extended release 24 hr atorvastatin 10 mg tablet 10 mg PO HS #90 tab-caps 12/07/22 12/17/22 Rx divalproex 250 mg tablet,extended 750 mg PO BID 12/07/22 12/17/22 History release 24 hr lisinopril 10 mg tablet 10 mg PO DAILY #90 tabs 12/07/22 12/17/22 Rx oxycodone 5 mg tablet 5 mg PO BID PRN pain #20 tabs 12/13/22 12/17/22 Rx trazodone 50 mg tablet 50 mg PO QHS PRN sleep #60 tabs 12/14/22 12/17/22 Rx Exam Narrative Exam Narrative: Orthostatics in ER: supine 165/115, 110; standing 110/88, 110; 37.1, 15, 97% RA. HEENT atraumatic; neck supple; lungs clear; heart RRR; abdomen soft and NT; extremities w/o edema; neuro Ox1, engages slowly in conversation to limited extent; moves all 4s, when I attempt to walk him he stands unsteadily and unable to take any steps Results Labs 12/17/22 17:05 12/17/22 17:05 Labs: Laboratory Results - last 24 hr 12/17/22 12/17/22 12/17/22 17:05 17:05 17:05 WBC 9.50 RBC 4.80 Hgb 13.9 Hct 42.7 MCV 89 MCH 29.0 MCHC 32.6 RDW 12.6 Plt Count 295 MPV 9.2 Immature Gran % 0.4 Neutrophils % 65.3 Lymphocytes % 23.4 Monocytes % 7.9 Eosinophils % 2.5 Basophils % 0.5 Nucleated RBC % 0.0 Absolute Neutrophils 6.20 Absolute Lymphocytes 2.22 Absolute Monocytes 0.75 Absolute Eosinophils 0.24 Absolute Basophils 0.05 Sodium 141 Potassium 3.8 Chloride 103 Carbon Dioxide 29.3 Anion Gap 8.7 BUN 30 H Creatinine 1.3 Est GFR (CKD-EPI 2020) 60.21 Glucose 124 H Calcium 9.2 Total Bilirubin 0.4 AST 6 L ALT 9 L Alkaline Phosphatase 83 Total Protein 7.5 Albumin 3.2 L Urine Color Urine Clarity Urine pH Ur Specific [place] Urine Protein Urine Ketones Urine Blood Urine Nitrite Urine Bilirubin Urine Urobilinogen Ur Leukocyte Esterase Urine RBC Urine WBC Ur Epithelial Cells Urine Crystals Urine Bacteria Urine Mucus Ur Culture Indicated? Urine Glucose Patient ABO/Rh O Positive Antibody Screen NEGATIVE 12/17/22 18:58 WBC RBC Hgb Hct MCV MCH MCHC RDW Plt Count MPV Immature Gran % Neutrophils % Lymphocytes % Monocytes % Eosinophils % Basophils % Nucleated RBC % Absolute Neutrophils Absolute Lymphocytes Absolute Monocytes Absolute Eosinophils Absolute Basophils Sodium Potassium Chloride Carbon Dioxide Anion Gap BUN Creatinine Est GFR (CKD-EPI 2020) Glucose Calcium Total Bilirubin AST ALT Alkaline Phosphatase Total Protein Albumin Urine Color Yellow Urine Clarity Clear Urine pH 6.0 Ur Specific [place] 1.015 Urine Protein Trace H Urine Ketones Trace H Urine Blood Negative Urine Nitrite Negative Urine Bilirubin Negative Urine Urobilinogen 0.2 Ur Leukocyte Esterase Negative Urine RBC 3-5 H Urine WBC 5-10 Ur Epithelial Cells Moderate Urine Crystals Negative Urine Bacteria Negative Urine Mucus Heavy Ur Culture Indicated? No/Sq. Contamination Urine Glucose Negative Patient ABO/Rh Antibody Screen Last Vital Signs Temp 37.1 C 12/17/22 16:40 Pulse 110 H 12/17/22 19:44 Resp 15 12/17/22 17:59 BP 165/115 H 12/17/22 19:44 Pulse Ox 97 12/17/22 16:40 Time Spent Time spent with Patient: 40-54 minutes Time was spent: preparing to see the patient(eg.review tests), obtaining and/or reviewing separately otained hiistory, ordering medications,tests, procedures, referring, communicating with other health neonatal critical care nurse and indepentently interpreting results
--- NOTE | 2022-12-17 20:30 | DI.VRAD_ITS ---
PROCEDURE INFORMATION: Exam: CT Cervical Spine Without Contrast Exam date and time: 12/17/2022 20:19 Age: 67 years old Clinical indication: Other: Fall TECHNIQUE: Imaging protocol: Computed tomography of the cervical spine without contrast. COMPARISON: CT CHEST/ABD/PEL W 12/17/2022 18:09 FINDINGS: Bones/joints: Straightening of the normal cervical lordosis. No acute fracture or subluxation. Degenerative changes are severe at C3-C4 and C6-C7 levels. Multilevel neural foraminal and central canal stenosis. Lungs: No consolidation. Soft tissues: No suspicious lesions. IMPRESSION: No cervical spine fracture. Dictated and Authenticated by: Jayla Martin MD. Ordering:ALTAF Manzo MD
[2022-12-17] MEDS: Lactated Ringers 250 ML IV (20:45)
[2022-12-17 21:45] LABS: Source Nasal/Nares
[2022-12-17 22:17] LABS: COVID-19 PCR Negative (Negative)
[2022-12-17] MEDS: Donepezil 5 MG TAB 10 MG PO (22:20)
[2022-12-17] MEDS: Atorvastatin 10 MG TAB PO (22:20)
[2022-12-17] MEDS: buPROPion-CR 150 MG TABCR PO (22:21)
[2022-12-17 23:28] LABS: Bilirubin Negative (Negative); Blood Trace-intact (Negative); Clarity Sl Cloudy (Clear); Glucose Negative (Negative); Ketones 15 mg/dL (Negative); Leukocyte Esterase Trace (Negative); Nitrite Negative (Negative); Specific Gravity 1.015 (1.005-1.025); Urobilinogen 0.2 mg/dL (Up to 0.2); pH 5.5 (5-8)
[2022-12-17 23:31] LABS: Bacteria Few HPF (Negative); C & S Indicated? Yes; Casts Negative LPF (Negative); Crystals Negative HPF (Negative); Epithelial Cells Negative HPF (Negative); Mucus Negative (Negative)
[2022-12-18] VITALS (8 sets, daily range): BP systolic 145–170; BP diastolic 77–134; PULSE 75–84; RESP 17–20; TEMP 36.5–36.9; O2SAT 93–98
--- NOTE | 2022-12-18 02:23 | NUR.NOTE ---
Nursing Note:Patient continues to be up and down in bed. Unable to reorient that he is in the hospital. Pt believes that something is being done to him that he doesn't understand. (Thinks the bed control is doing something to him.) Wants to go to his own bed. Does not remember falling in the tub at home. Argumentative and unable to reorient.
[2022-12-18] MEDS: cefTRIAXone 1,000 MG in Normal Saline 50 ML 100 MG IVPB (06:17)
[2022-12-18] MEDS: Normal Saline Flush 10 ML SYR IVP (06:43)
[2022-12-18] MEDS: Donepezil 5 MG TAB 10 MG PO ×2 (07:33→19:27)
[2022-12-18] MEDS: Metoprolol CR 50 MG TABCR PO (07:34)
[2022-12-18] MEDS: Lisinopril 5 MG TAB PO (07:39)
[2022-12-18 07:57] LABS: Abs Immature Grans 0.03 10^3/uL (0.0-0.06); Absolute Basophil Count 0.08 10^3/uL (0.0-0.2); Absolute Eosinophil Count 0.22 10^3/uL (0.0-0.7); Absolute Lymphocyte Count 1.55 10^3/uL (1.2-3.4); Absolute Monocyte Count 0.72 10^3/uL (0.1-0.8); Absolute Neutrophil Count 6.61 10^3/uL (1.2-6.7); Basophils % 0.9; Eosinophils % 2.4; HCT 43.1 % (40.0-50.0); HGB 14.1 g/dL (13.5-17.5); Immature Grans % 0.3; Lymphocytes % 16.8; MCH 29.1 pg (27.0-33.0); MCHC 32.7 % (32.0-36.0); MCV 89 fL (80-95); MPV 9.2 fL (8.0-11.0); Monocytes % 7.8; Neutrophils % 71.8; Platelet Count 256 10^3/uL (130-400); RBC 4.84 10^6/uL (4.36-5.78); RDW 12.5 % (11.8-14.1); RDW-SD 41.1 fL; WBC 9.21 10^3/uL (4.4-10.8)
[2022-12-18 08:06] LABS: Anion Gap 7.5 mmol/L (3-11); BUN 27 mg/dL (7-18); CO2 29.5 mmol/L (21.0-32.0); CREATININE 1.3 mg/dL (0.70-1.30); Calcium 9.1 mg/dL (8.5-10.1); Chloride 105 mmol/L (98-107); Estimated GFR 60.21 (mL/min/1.73m2); Glucose 101 mg/dL (74-106); Magnesium 1.9 mg/dL (1.8-2.4); Sodium 142 mmol/L (136-145)
--- NOTE | 2022-12-18 08:48 | PGE_ITS ---
Date of Service Date of service: 12/18/22 Time of Service: 08:48 Assessment and Plan Assessment and plan (1) Orthostatic hypotension: Status: Acute Assessment and plan: ? dysautonomia, dehydration, side effect of medication. Will give a L of LR. Monitor orthostatics. May require more intense BP management at night and less so during the day. (2) UTI (urinary tract infection): Status: Acute Assessment and plan: Present on admission. Nonobstructive nephrolithiasis on CT. Await urine C&S. Continue empiric ceftriaxone. Check bladder scans, especially given the incontinence. (3) Intracranial hemorrhage: Status: Chronic Assessment and plan: On 11/29/22. Avoid chemical DVT ppx. BP control. C/s PT, palliative care. (4) Frequent falls: Status: Acute Assessment and plan: C/s PT. (5) Epilepsy: Status: Chronic Assessment and plan: Valproic acid level is pending while it is on hold. Consider neurology consult. (6) Hypertension: Status: Chronic Assessment and plan: As above For now, his lisinopril dose has been decreased. Continue metoprolol at current dose and check orthostatics. (7) Failure to thrive in adult: Status: Acute Assessment and plan: Multifactorial, due to a recent cerebral hemorrhage, early dementia, possible effect of medications. C/s palliative care. (8) Back pain: Status: Acute Assessment and plan: prn tylenol. Consider imaging. (9) Early onset Alzheimer's dementia: Status: Acute Assessment and plan: Continue donepezil/memantine. (10) DVT prophylaxis: Status: Acute Assessment and plan: Written for TEDs. AVoid chemical DVT ppx in light of recent cerebral hemorrhage. (11) Discharge planning issues: Status: Acute Assessment and plan: We need to clarify code status. Dr Mitchell had originally ordered DNR/DNI, but then changed it to full code while documenting DNR in his note. C/S PT and palliative care. Subjective Subjective Interval history since last seen: Is orthostatic this morning, but standing SBP is in 140s. Mr Mckeon states that he is feeling a little confused this morning. He states he is a little dizzy sitting up, but does not usually feel that way laying or standing. Denies headache, CP, SOB. Endorsed occasional nausea. C/o lower back pain and R knee pain. Nursing notes urinary incontinence. About to work with PT when I came to see him. Exam Narrative Exam Narrative: General: Pleasant middle-aged male who is sitting up in a chair, appears comfortable, A&Ox2 HEENT: EOMI, no nystagmus, MMM Heart: RRR, no m/r/g Lungs: CTAB Abdomen: soft, nontender, nondistended Extremities: no edema BLEs Objective Last Vital Signs Temp 37 C 12/17/22 21:44 Pulse 75 12/18/22 07:22 Resp 16 12/17/22 21:44 BP 170/93 H 12/18/22 07:22 Pulse Ox 93 12/18/22 07:22 Laboratory Results - last 24 hr 12/17/22 12/17/22 12/17/22 17:05 17:05 17:05 WBC 9.50 RBC 4.80 Hgb 13.9 Hct 42.7 MCV 89 MCH 29.0 MCHC 32.6 RDW 12.6 Plt Count 295 MPV 9.2 Immature Gran % 0.4 Neutrophils % 65.3 Lymphocytes % 23.4 Monocytes % 7.9 Eosinophils % 2.5 Basophils % 0.5 Nucleated RBC % 0.0 Absolute Neutrophils 6.20 Absolute Lymphocytes 2.22 Absolute Monocytes 0.75 Absolute Eosinophils 0.24 Absolute Basophils 0.05 Sodium 141 Potassium 3.8 Chloride 103 Carbon Dioxide 29.3 Anion Gap 8.7 BUN 30 H Creatinine 1.3 Est GFR (CKD-EPI 2020) 60.21 Glucose 124 H Calcium 9.2 Magnesium Total Bilirubin 0.4 AST 6 L ALT 9 L Alkaline Phosphatase 83 Total Protein 7.5 Albumin 3.2 L Urine Color Urine Clarity Urine pH Ur Specific [place] Urine Protein Urine Ketones Urine Blood Urine Nitrite Urine Bilirubin Urine Urobilinogen Ur Leukocyte Esterase Urine RBC Urine WBC Ur Epithelial Cells Urine Crystals Urine Bacteria Urine Casts Urine Mucus Ur Culture Indicated? Urine Glucose Valproic Acid COVID-19 Source SARS-CoV-2 (PCR) Patient ABO/Rh O Positive Antibody Screen NEGATIVE 12/17/22 12/17/22 12/17/22 18:58 21:31 23:00 WBC RBC Hgb Hct MCV MCH MCHC RDW Plt Count MPV Immature Gran % Neutrophils % Lymphocytes % Monocytes % Eosinophils % Basophils % Nucleated RBC % Absolute Neutrophils Absolute Lymphocytes Absolute Monocytes Absolute Eosinophils Absolute Basophils Sodium Potassium Chloride Carbon Dioxide Anion Gap BUN Creatinine Est GFR (CKD-EPI 2020) Glucose Calcium Magnesium Total Bilirubin AST ALT Alkaline Phosphatase Total Protein Albumin Urine Color Yellow Yellow Urine Clarity Clear Sl Cloudy Urine pH 6.0 5.5 Ur Specific [place] 1.015 1.015 Urine Protein Trace H Trace H Urine Ketones Trace H 15 H Urine Blood Negative Trace-intact H Urine Nitrite Negative Negative Urine Bilirubin Negative Negative Urine Urobilinogen 0.2 0.2 Ur Leukocyte Esterase Negative Trace H Urine RBC 3-5 H 3-5 H Urine WBC 5-10 10-20 H Ur Epithelial Cells Moderate Negative Urine Crystals Negative Negative Urine Bacteria Negative Few Urine Casts Negative Urine Mucus Heavy Negative Ur Culture Indicated? No/Sq. Contamination Yes Urine Glucose Negative Negative Valproic Acid COVID-19 Source Nasal/Nares SARS-CoV-2 (PCR) Negative Patient ABO/Rh Antibody Screen 12/18/22 12/18/22 12/18/22 06:00 07:45 07:45 WBC 9.21 RBC 4.84 Hgb 14.1 Hct 43.1 MCV 89 MCH 29.1 MCHC 32.7 RDW 12.5 Plt Count 256 MPV 9.2 Immature Gran % 0.3 Neutrophils % 71.8 Lymphocytes % 16.8 Monocytes % 7.8 Eosinophils % 2.4 Basophils % 0.9 Nucleated RBC % 0.0 Absolute Neutrophils 6.61 Absolute Lymphocytes 1.55 Absolute Monocytes 0.72 Absolute Eosinophils 0.22 Absolute Basophils 0.08 Sodium 142 Potassium 4.0 Chloride 105 Carbon Dioxide 29.5 Anion Gap 7.5 BUN 27 H Creatinine 1.3 Est GFR (CKD-EPI 2020) 60.21 Glucose 101 Calcium 9.1 Magnesium 1.9 Total Bilirubin AST ALT Alkaline Phosphatase Total Protein Albumin Urine Color Urine Clarity Urine pH Ur Specific [place] Urine Protein Urine Ketones Urine Blood Urine Nitrite Urine Bilirubin Urine Urobilinogen Ur Leukocyte Esterase Urine RBC Urine WBC Ur Epithelial Cells Urine Crystals Urine Bacteria Urine Casts Urine Mucus Ur Culture Indicated? Urine Glucose Valproic Acid Cancelled COVID-19 Source SARS-CoV-2 (PCR) Patient ABO/Rh Antibody Screen Time Spent with Patient Time Spent with Patient: 25-34 minutes Time was spent: preparing to see the patient(eg.review tests), obtaining and/or reviewing separately otained hiistory, ordering medications,tests, procedures, referring, communicating with other health foster care social worker, indepentently interpreting results, counseling the patient and care coordination
--- NOTE | 2022-12-18 09:02 | PT.INIE ---
Date of service: 12/18/22 Time of Service: 08:30 PT Notes Visit Reasons: orthostatic hypotension, falling Inpatient Physical Therapy Evaluation Date: December 18, 2022 Referring Doctor: Vikash Mitchell PT Orders: PT CONSULT: Limited Mobility Precautions: Standard, Falls Patient Profile/Admitting Diagnosis: Wilfred is a 67 male with h/o dementia, HTN -- here two weeks EDUCATION SPEC with cerebral hemorrhage of left temporal lobe, transferred to [facility]. Home this past week but has not been doing well -- fatigued, lightheaded, falling. Caregiver unable to manage and was brought to ER for evaluation.? PMHX: (Updated 12/17/22 @ 20:14 by Vikash Mitchell MD) Failure to thrive in adult (Acute) Frequent falls (Acute) Generalized weakness (Acute) Dizziness (Acute) Orthostatic hypotension (Acute) Intracranial hemorrhage (Acute) Muscular deconditioning (Acute) Hypertension (Chronic) COVID-19 (Acute) UTI (urinary tract infection) (Acute) Generalized weakness (Acute) Chronic diarrhea (Chronic) Mild cognitive impairment (Chronic) Diabetes (Chronic) COVID-19 (Acute) 11/24/21 Vaccinated, boostedUmbilical hernia (Acute) Back pain (Acute) Diarrhea (Acute) Urinary frequency (Acute) Tachycardia (Chronic) MARTA (obstructive sleep apnea) (Chronic) Does not use CPAPHyperlipidemia (Acute) Arthritis (Acute) Knees, lower back, shouldersAcute CVA (cerebrovascular accident) (Acute) 2018 and 2019Chronic low back pain (Acute) Lumbar facet arthropathy (Acute) Lumbar spondylosis (Acute) without myelopathy or radiculopathy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Heart disease (Acute) Cerebral amyloid angiopathy (Acute) Generalized tonic-clonic seizure (Acute) Only 1 seizure ever after first CVADiabetic peripheral neuropathy (Acute) Very mild Medical History? Bilateral inguinal hernia Bundle branch block lumbar/thoracic medial right l2-5Compression fracture of L1 vertebra Diverticulosis of colon without diverticulitis per colonoscopy 07/2008 Elevated fasting blood sugar (09/08/15) A1c 6.3 in 08/2015 History of revision of total replacement of left knee joint Renal calculi Rotator cuff arthropathy of right shoulder Ruptured appendix Appendectomy when he was 13.Sensorineural hearing loss, bilateral (09/03/15) Tinnitus, bilateral (09/03/15) Varicose veins of lower extremity GREAT SAPHENOUS VEIN LEFT LEG Surgical History? H/O cystoscopy w/ internal urethrotomyHistory of cardiac radiofrequency ablation (RFA) History of surgical procedure makoplasty on left knee, basal cell removed from right ear Status post appendectomy At age 13 Social History/Home Situation: Patient unable to give information in regards to his current living situation. Current Functional Limitations: Confusion, Increased dizziness with change of position, Increased falling, Limited activity tolerance Equipment Owned/DME: Unable to provide this information Subjective: Wilfred notes overall doing well this morning. Complains of mild dizziness and notes of LBP and R knee pain. Objective: General Observation: Patient was up sitting in bed side chair with nursing present. Mental Status: Alert to person and place. Unable to tell time/date. Pain: Complains of LBP and R knee pain Vital Signs: Orthostatics completed via Nursing ROM: Right Upper Extremity: Demonstrates WFL AROM of R UE. Left Upper Extremity: Demonstrates WFL AROM of L UE Right Lower Extremity: Demonstrates WFL AROM of R LE Left Lower Extremity: Demonstrates WFL AROM of L UE Strength: Right Upper Extremity: Shoulder flexion 4/5, abduction 4/5, Bicep 5/5, Tricep 5/5, Good functional grasp Left Upper Extremity: Shoulder flexion 4-/5, abduction 4/5, Bicep 5/5, Tricep 4/5, Slightly diminished functional grasp in comparison to right Right Lower Extremity: Hip flexion 4-/5, knee extension 4/5, knee flexion 4-/5, DF 5/5 Left Lower Extremity: Hip flexion 4/5, knee extension 4/5, knee flexion 4/5, DF 5/5 Bed Mobility/Transfers: Sit-supine: Mod Ax1 with continuous cueing Sit-stand: minAx1 with continuous cueing for proper hand placement Stand-sit: CG with continuous cueing for proper hand placement Bed-chair: FWW, festinating gait, decreased stride length, minAx1 Chair-Bed: FWW, standing gait, decreased stride length, Joe x1 Gait: FWW, 10 ft from chair to wheelchair, festinating gait, decreased stride length, minAx1 Balance: Static Sitting: Normal Dynamic Sitting: Good Static Standing: Fair Dynamic Standing: Fair Special Tests: Mobility Limitations Standardized Measure [facility] AM-PAC 6 clicks Basic Mobility Inpatient Short Form: Raw Score: 18 CMS Score: 47% Informed Consent/Education: Patient instructed in purpose of PT consult and plan of care. Assessment: Patient is a 67 year old male referred to physical therapy services with the diagnosis of orthostatic hypertension with increased falling. Patient presents with clinical signs and symptoms consistent with diagnosis history of hemorrhagic CVA, dementia with cognitive impairment, as demonstrated by the following impairment level findings: 1.? Decreased strength to R>L LE major muscle groups 2.? Impaired balance 3.? Impaired activity tolerance 4.? LBP pain 5. Cognitive impairment Impairments are contributing to the following functional limitations: 1.? Inability to safely ambulate without assistive device 2.? Increase completion time for mobility ADL performance 3.? Increased fall risk 4.? Inability to negotiate steps alone safely Patient is assessed as a Moderate 46517 complexity based on the following: History: As above Examination: As above Presentation: Evolving Decision Making: Moderate Goals: Goals X1 week 1. Supine-Sit Independent 2. Sit-Supine Independent 3. Sit-Stand Independent 4. Stand-Sit Independent 5. Bed-Chair Independent 6. Chair-Bed Independent 7. Gait FWW 300 ft or greater increased stride length, improved luh 8. Stairs up/down 3-5 steps with railing 9. Independent with home exercise program Plan of Care/Treatment Plan: 1-2x/day, 7 days/week x 1 week. Plan of care has been reviewed with the EDUCATION SPEC providing the service under Physical Therapy direction. Initiate Physical Therapy intervention for strengthening, bed mobility, transfers, gait, stairs, balance training, use of assistive device. DISCHARGE RECOMMENDATIONS: SNF versus LTC based on ability to participate and progress TREATMENT CODE/TIME: 16710, IE, 30 minutes, 8:30 am [facility] Disclaimer: This note was created using [employer] voice recognition software. It was reviewed for major content. However, there may be multiple small discrepancies and errors due to the voice recognition aspects of the software.
--- NOTE | 2022-12-18 09:04 | PDOC.CMIN ---
Date of service: 12/18/22 Time of Service: 09:04 Care Management Initial Assmt Initial Assessment REASON FOR HOSPITALIZATION:: Orthostatic hypotension, falling PREVIOUS FUNCTIONAL STATUS/SOCIAL/FAMILY SUPPORTS:: Resides in [place] with life partner, DPOA and primary care provider, Rubi who manages his care needs. Per MD, Rubi injured herself attempting to life Wilfred and should be evaluated for caregiver burnout. Wilfred is experiencing increased medical issues, and has been hospitalized for most of the last few weeks at [facility]. He discharged to home without additional services, and fell in the bathtub the day of admission. CURRENT FUNCTIONAL STATUS:: Inpatient, pleasant in interaction. ADVANCE DIRECTIVES:: DPOA: Rubi Emerson Has patient been provided with info about the portal/API?: No Did the patient sign up for the portal?: No CODE STATUS:: Full Code CODE STATUS COMMENT:: Palliative ordered INSURANCE COVERAGE / FINANCIAL ISSUES:: MCR A&B CURRENT HOME/COMMUNITY SERVICES/EQUIPMENT:: Caregiver PRIMARY CARE PHYSICIAN:: Maynor Hunt POTENTIAL DISCHARGE NEEDS:: Palliative, PT consults. PATIENT/FAMILY EDUCATION NEEDS:: Review discharge instructions, discuss Ask Me Three. ANTICIPATED BARRIERS TO DISCHARGE:: None identified. TRANSPORTATION:: Dependent on mobility and disposition. PLAN:: Further workup, PT evaluation; currently max 1 assist; anticipate VNA-vs-SNF. CM continues to follow. PFSH All Active Problems (Updated 12/18/22 @ 09:05 by Sade Acevedo MD) Early onset Alzheimer's dementia (Acute) Epilepsy (Chronic) Discharge planning issues (Acute) DVT prophylaxis (Acute) Failure to thrive in adult (Acute) Frequent falls (Acute) Generalized weakness (Acute) Dizziness (Acute) Orthostatic hypotension (Acute) Intracranial hemorrhage (Chronic) Muscular deconditioning (Acute) Hypertension (Chronic) COVID-19 (Acute) UTI (urinary tract infection) (Acute) Generalized weakness (Acute) Chronic diarrhea (Chronic) Mild cognitive impairment (Chronic) Diabetes (Chronic) COVID-19 (Acute) 11/24/21 Vaccinated, boosted Umbilical hernia (Acute) Back pain (Acute) Diarrhea (Acute) Urinary frequency (Acute) Tachycardia (Chronic) MARTA (obstructive sleep apnea) (Chronic) Does not use CPAP Hyperlipidemia (Acute) Arthritis (Acute) Knees, lower back, shoulders Acute CVA (cerebrovascular accident) (Acute) 2018 and 2019 Chronic low back pain (Acute) Lumbar facet arthropathy (Acute) Lumbar spondylosis (Acute) without myelopathy or radiculopathy 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 Heart disease (Acute) Cerebral amyloid angiopathy (Acute) Generalized tonic-clonic seizure (Acute) Only 1 seizure ever after first CVA Diabetic peripheral neuropathy (Acute) Very mild Medical History Bilateral inguinal hernia 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 Status post appendectomy At age 13 Family History Mother Heart disease Dementia Father Heart disease Alzheimer disease Brother Alcohol use disorder Depression Heart disease Grandfather Heart disease Grandfather Personal history of malignant neoplasm LUNG Grandmother Essential hypertension Heart disease Grandmother Diabetes Essential hypertension Personal history of malignant neoplasm COLON Heart disease Social History Smoking/Tobacco Use Status: Former Tobacco Use tobacco type: cigarettes Quit Date: 04/17/88 Second Hand Exposure: Yes Smoking risk assessment performed?: Yes Alcohol Intake: current Alcohol Intake frequency: a few times a month Alcohol type: beer Drug use: Never Substance use type: does not use Caregiver/Support person: Yes Household members: significant other, friend(s) and caregiver Housing: house Do you need help understanding health information?: Often Pets and animals: Yes Pets and animals: cat(s) and dog(s) Sexually active: No Do you think of yourself as: straight/heterosexual Current gender identity: male What is your relationship status?: living with partner How often do you talk on the phone with friends or family?: three or more times per week How often do you get together with friends or relatives?: once per week How often do you attend faith or tenriism services?: decline to answer Do you belong to any clubs or organized social groups?: no Panel score (0-1 are the most socially isolated patients): 2 What type of physical activity do you participate in: none Frequency: does not exercise Yaima/Baptism: No preference Special yaima needs: No Seatbelt use: always Drive intox or ride 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
[2022-12-18] MEDS: buPROPion 100 MG TAB PO (10:46)
[2022-12-18 11:03] LABS: Lab Add On Test DONE
[2022-12-18 11:12] LABS: Lipase 53 U/L (16-77)
--- NOTE | 2022-12-18 11:15 | W.NUTCONSULT ---
Date of service: 12/18/22 Time of Service: 11:15 Nutritional Consult ASSESSMENT: Mr Mckeon is a 67yo male admitted for falling related to episodes of orthostatic hypotension. His PMH includes baseline dementia from early onset Alzheimers, diabetes with neuropathy, HTN , weakness and hyperlipidemia. His current BMI is consistent with overweight but not of concern as a risk factor for age group. He has lost 7.8kg since 09/05/22 however. Most recent a1cf (03/03/22) was 5.3 and recent random glucose values from august of this year to present have acceptable (ranging from 101-141mg/dL). Ordered for a heart healthy diet while admitted with normal consistencies. estimated energy needs: 2032 kcals (MSJx1.2), 70-88g protein (.8-1g/kg) and 203mL of fluid (1mL/required kcal) NUTRITIONAL DIAGNOSIS: Severe malnutrition in the context of chronic illness related to inadequate intake of kcals as evidenced by a 7.8kg wt loss over a 3 month period INTERVENTION: will encourage high protein/high kcal menu choices at meals and Glucerna supplements Bid with breakfast and lunch for some extra energy and protein. s MONITORING AND EVALUATION: Will monitor intake through communicating between nursing and dietary staff, and changes in pt weight and labs for any need for additional recommendationa Time Spent in Nutritional Counseling and Treatment: 0
[2022-12-18 16:25] LABS: Valproic Acid 94 ug/mL (50-100)
[2022-12-18] MEDS: Lidocaine 5% Patch 1 PATCH TP (19:26)
[2022-12-18] MEDS: Acetaminophen 325 MG TAB 650 MG PO (19:27)
[2022-12-18] MEDS: Cyclobenzaprine 10 MG TAB PO (19:27)
[2022-12-18] MEDS: buPROPion-CR 150 MG TABCR PO (19:27)
[2022-12-18] MEDS: Atorvastatin 10 MG TAB PO (19:27)
--- NOTE | 2022-12-19 | DI.CT_ITS ---
Exam(s) CT THORACIC LUMBAR SPINE REC EXAM: CT THORACIC LUMBAR SPINE REC CLINICAL HISTORY: Back pain TECHNIQUE: COMPARISON: CT CT CHEST/ABD/PEL WO from 09/19/[address] CHEST PE CTA from 11/25/[address] CHEST/ABD/PEL W from 12/17/2022 FINDINGS: No acute fractures evident. Chronic unchanged wedge compression fracture of T5 is again noted, uncha nged from at least 11/25/2021. Schmorl's node invagination inferior endplate of L1 noted which appea rs stable unchanged from CT scan of 09/19/2021 No acute fractures evident. Chronic advanced disc space narrowing at L4-5 and L5-S1 levels again not ed. IMPRESSION: No acute fractures thoracic and lumbar spines. Chronic wedge T5 fracture again noted as well as L1 i nferior endplate findings as described above, all unchanged. No osseous lesions evident. Bilateral nephrolithiasis noted. See separate abdominal CT scan report which reveals significant findings related to the pancreas.
[2022-12-19 01:45] VITALS: BP 133/87; PULSE 68; RESP 20; TEMP 36; O2SAT 98
[2022-12-19] MEDS: cefTRIAXone 1,000 MG in Normal Saline 50 ML 100 MG IVPB (05:54)
[2022-12-19 06:28] VITALS: BP 137/98; PULSE 78; RESP 18; TEMP 35.8; O2SAT 95
[2022-12-19 07:54] LABS: Abs Immature Grans 0.03 10^3/uL (0.0-0.06); Absolute Basophil Count 0.05 10^3/uL (0.0-0.2); Absolute Lymphocyte Count 1.73 10^3/uL (1.2-3.4); Absolute Monocyte Count 0.65 10^3/uL (0.1-0.8); Absolute Neutrophil Count 5.33 10^3/uL (1.2-6.7); Basophils % 0.6; Eosinophils % 3.7; HCT 44.6 % (40.0-50.0); HGB 14.3 g/dL (13.5-17.5); Immature Grans % 0.4; Lymphocytes % 21.4; MCH 28.4 pg (27.0-33.0); MCHC 32.1 % (32.0-36.0); MCV 89 fL (80-95); MPV 9.7 fL (8.0-11.0); Neutrophils % 65.9; Platelet Count 241 10^3/uL (130-400); RBC 5.03 10^6/uL (4.36-5.78); RDW 12.6 % (11.8-14.1); RDW-SD 41.1 fL; WBC 8.09 10^3/uL (4.4-10.8)
[2022-12-19 08:12] LABS: Anion Gap 10.2 mmol/L (3-11); BUN 30 mg/dL (7-18); CO2 27.8 mmol/L (21.0-32.0); CREATININE 1.3 mg/dL (0.70-1.30); Calcium 9.1 mg/dL (8.5-10.1); Chloride 102 mmol/L (98-107); Estimated GFR 60.21 (mL/min/1.73m2); Glucose 111 mg/dL (74-106); Magnesium 2.1 mg/dL (1.8-2.4); Potassium 3.5 mmol/L (3.5-5.1); Sodium 140 mmol/L (136-145)
[2022-12-19] MEDS: Donepezil 5 MG TAB 10 MG PO ×2 (08:12→19:36)
[2022-12-19] MEDS: Lisinopril 5 MG TAB PO (08:12)
[2022-12-19] MEDS: buPROPion 100 MG TAB PO (08:12)
[2022-12-19] MEDS: Metoprolol CR 50 MG TABCR PO (08:12)
[2022-12-19] MEDS: Lidocaine Patch Removal 1 EACH TP (08:13)
--- NOTE | 2022-12-19 11:13 | PT.INTREAT ---
PT Notes Visit Reasons: Orthostatic hypotension, falling Inpatient Physical Therapy Treatment Note [facility] Date: 12/19/22 SUBJECTIVE: Wilfred states that he is not going to go for a walk. States he is sad as his Honey doesn't want to be with him anymore. He is agreeable to exercise in chair. OBJECTIVE: []? Refused to get out of his recliner. ? Therapeutic Exercises ([id number]): Direct one-on-one instruction in therapeutic exercises to develop strength, endurance, range of motion and flexibility. ? Exercises AP x20 LAQ x15 ea Seated june x15 Hip Ab/ADD x15 refused sit to stand ex Provided skilled instruction in proper exercise performance ASSESSMENT:?very adamant about not getting out of his chair. I was unable to convince him/ encourage him otherwise. He tolerated all chair ex well without pain complaints. No c/o dizzy. Focused on his watch, and lack of attention from significant other. PLAN: continue to work on safe functional mobility as per PT POC. TREATMENT CODE/TIME: [id number]. ([id number])
--- NOTE | 2022-12-19 12:07 | PGE_ITS ---
Date of Service Date of service: 12/19/22 Time of Service: 12:07 Assessment and Plan Assessment and plan (1) Orthostatic hypotension: Status: Acute Assessment and plan: Multifactorial most likely medication related to his lisinopril and his Depakote. Of note his valproic acid level came back on the high side at 94 mcg/mL. According to his , his neurologist in the [facility] had him on depakote 250 mg at night for mood stabilization and he was only able to tolerate 125 mg nightly. Given that he came in w/ such a high level and was orthostatic and confused, I think he would be better off on Keppra for seizure control than pushing his valproic acid levels so high. His BP has improved and although he remains orthostatic, his BP while standing are more reasonable at145/77. He still get about 20 mm drop in his SBP from his resting supine BP. He is now back on his lisinopril at lower dose of 5 mg daily (he had been on 2.5 mg daily until neurology increased to 10 mg after his ICH). If his BP runs higher then I would consider low dose amlodipine in the evening to control his nighttime supine hypertension. Professional time spent interviewing and examining patient, discussion of goals of care with hospital team (care management, nursing and consulting professionals) 40 minutes. (2) Intracranial hemorrhage: Status: Chronic Assessment and plan: On 11/29/22. Avoid chemical DVT ppx. BP control. C/s PT, palliative care. (3) Temporal lobe seizure: Status: Acute Assessment and plan: patient had persistent left temporal lobe seizure activity noted on continuous EEG while at [facility] in setting of left temporal lobe hemorrhage but w/out outward clinical manifestation of seizures. Patient's depakote was uptitrated from 125 mg nightly (although [facility] though he was already on 250 mg nightly) and this was titrated up to 750 mg bid. I think that Keppra may be a better choice for prevention of seizures. I will consult Dr. Dow tomorrow for her opinion. (4) Frequent falls: Status: Acute Assessment and plan: mutlifactorial including his baseline dementia, multiple CVA from hemorrhages. continue P.T. but will likely need short term placement for rehab prior to return home (5) UTI (urinary tract infection): Status: Acute Assessment and plan: greater than 100,000 colonies of mixed gram positive ariel, likely contaminant. I will dc Rocephin but give him one time dose of fosfomycin (6) Hypertension: Status: Chronic Assessment and plan: continue current dose of lisinopril 5 mg daily, monitor orthostatic vitals. Continue his metoprolol which had previously been prescribed for tachycardia. He is in a difficult situation and that he cannot tolerate the orthostatic hypotension which is contributed to his falls and yet with his cerebral amyloid angiodysplasia and recurrent hemorrhages good blood pressure control is necessary. Consider addition of low-dose Norvasc at night to control nocturnal hypertension. For prevention of orthostasis YAMILET hose should be worn at all times. (7) Failure to thrive in adult: Status: Acute Assessment and plan: Multifactorial, due to a recent cerebral hemorrhage, early dementia, possible effect of medications. C/s palliative care. Patient will likely need short-term placement for rehab at a care home facility. (8) Back pain: Status: Acute Assessment and plan: prn tylenol. Obtain CT of the thoracic and lumbar spine rule out fractures. Frequent falls (9) Early onset Alzheimer's dementia: Status: Acute Assessment and plan: Continue donepezil/memantine. is to bring in his Namenda as we do not carry in our pharmacy (10) DVT prophylaxis: Status: Acute Assessment and plan: Written for TEDs. AVoid chemical DVT ppx in light of recent cerebral hemorrhage. (11) Discharge planning issues: Status: Acute Assessment and plan: We need to clarify code status. Dr Mitchell had originally ordered DNR/DNI, but then changed it to full code while documenting DNR in his note. C/S PT and palliative care. Subjective Subjective Interval history since last seen: Dario is more alert and interactive. Per his S.O.( who is also his DOPA), he had been chronically on depakote 125 mg at night to help control his mood swings w/ his Alzheimers. However neurology at [facility] increased the dose to Depakote ER 750 mg bid when he was recently hospitalized last month (11/29 to 12/05/22) w/ right anterior temporal lobe hemorrhage ( he had prior right frontal hemorrhage in 02/05), MRI done at [facility] demonstrated chronic right frontal lobe hemorrhage and multiple scattered micro-hemorrhages in addition to the acute left temporal lobe hemorrraghes. The most likely etiology of his bleed is d/t cerebral amyloid angiopathy. He was noted on EEG to hae seizure activity form the left temporal lobe. He was loaded w/ Depakote 2 gm and his home dose was titrated from 250 mg daily to 750 mg to 1 gm bid after continuous EEG demonstrated electrical seizure activity w/out clinical correlate. Initially he was allowed passive hypertension but then his lisinopril was resarted and increased from 2.5 mg daily to 10 mg daily. since returning home he has been failing at home w/ multiple falls, difficulty walking even w/ a walker, feeling lightheaded and found to be orthostatic. He was found to have pyruria and has been empirically treated for UTI w/ Rocephin. His orthostasis was felt to be multifactorial including medications (depakote, lisinopril), possible autonomic dysfunction from his CVA and his dementia. Of note he has hx of tachycardia per his significant other, but the type of arrhythmia she could not tell me, but he is on Flecainide and Toprol XL. Since admission his depakote and lisinopril have been held. He is feeling better and she says that he is more alert and more like his baseline cognition. Exam Narrative Exam Narrative: Mr. Mckeon is sitting up in his chair talking with his significant other watching TV. Denies any headache or discomfort Lungs are clear to auscultation Heart is regular rate and rhythm Abdomen soft nontender nondistended Neuro exam there is no focal motor deficits he has good handgrip strength able to raise his arms up against gravity and resistance to light resistance. Normal strength in his feet and lower legs to manual muscle testing. Objective Last Vital Signs Temp 35.8 C L 12/19/22 06:28 Pulse 78 12/19/22 06:28 Resp 18 12/19/22 06:28 BP 137/98 H 12/19/22 06:28 Pulse Ox 95 12/19/22 06:28 Laboratory Results - last 24 hr 12/17/22 12/19/22 12/19/22 17:05 06:30 06:30 WBC 8.09 RBC 5.03 Hgb 14.3 Hct 44.6 MCV 89 MCH 28.4 MCHC 32.1 RDW 12.6 Plt Count 241 MPV 9.7 Immature Gran % 0.4 Neutrophils % 65.9 Lymphocytes % 21.4 Monocytes % 8.0 Eosinophils % 3.7 Basophils % 0.6 Nucleated RBC % 0.0 Absolute Neutrophils 5.33 Absolute Lymphocytes 1.73 Absolute Monocytes 0.65 Absolute Eosinophils 0.30 Absolute Basophils 0.05 Sodium 140 Potassium 3.5 Chloride 102 Carbon Dioxide 27.8 Anion Gap 10.2 BUN 30 H Creatinine 1.3 Est GFR (CKD-EPI 2020) 60.21 Glucose 111 H Calcium 9.1 Magnesium 2.1 Valproic Acid 94 Time Spent with Patient Time Spent with Patient: 35-49 minutes Time was spent: preparing to see the patient(eg.review tests), obtaining and/or reviewing separately otained hiistory, ordering medications,tests, procedures, referring, communicating with other health home care rn, indepentently interpreting results, counseling the patient and care coordination
[2022-12-19 14:58] VITALS: BP 109/77; PULSE 79; TEMP 36.5; O2SAT 95
--- NOTE | 2022-12-19 16:20 | DI.VRAD_ITS ---
PROCEDURE INFORMATION: Exam: CT Thoracic Spine Without Contrast Exam date and time: 12/17/2022 6:09 PM Age: 67 years old Clinical indication: Injury or trauma; Other: Multiple falls; Other: Mutiple falls TECHNIQUE: Imaging protocol: Computed tomography of the thoracic spine without contrast. 3D rendering (Not supervised by radiologist): MIP and/or 3D reconstructed images were created by the technologist. COMPARISON: 1. CT ABDOMEN PELVIS W 11/29/2022 2:[address] CHEST PE ABD PELVIS W 11/30/2021 2:46 PM FINDINGS: Bones/joints: Twelve rib-bearing thoracic type vertebral bodies. Stable chronic anterior fracture deformity at T5 resulting in mild anterior kyphotic angulation at this level. Alignment of the thoracic spine is stable. No acute fracture or subluxation. No aggressive osseous lesion. To the extent evaluated, no gross spinal canal stenosis. Soft tissues: See the CT chest, dictated separately. Other findings: Small hiatal hernia. IMPRESSION: 1. No acute fracture or subluxation of the thoracic spine. 2. Stable chronic fracture at T5. 3. Stable small hiatal hernia. PROCEDURE INFORMATION: Exam: CT Lumbar Spine Without Contrast Exam date and time: 12/17/2022 6:09 PM Age: 67 years old Clinical indication: Injury or trauma; Other: Multiple falls; Other: Mutiple falls TECHNIQUE: Imaging protocol: Computed tomography of the lumbar spine without contrast. 3D rendering (Not supervised by radiologist): MIP and/or 3D reconstructed images were created by the technologist. COMPARISON: CT ABDOMEN PELVIS W 11/29/2022 2:40 PM FINDINGS: Bones/joints: Five [id number] lumbar type vertebral bodies. Stable inferior endplate deformity at L1. No acute fracture or subluxation. No aggressive osseous lesion is identified. Disc and endplate osteophyte disease at L4-L5 results in likely significant narrowing of the subarticular recesses with moderate to severe right and moderate left neural foraminal narrowing. Additional degenerative changes of the lumbar spine are noted. Soft tissues: Unremarkable. IMPRESSION: 1. No acute fracture or subluxation of the lumbar spine. 2. Stable chronic inferior endplate deformity at L1. 3. Likely significant narrowing of the subarticular recesses and neural foramina at L4-L5. If there are symptoms referable to the L4-L5 nerve distributions, MRI may be of benefit for further characterization. Dictated and Authenticated by: Moses Ferrer MD. Ordering:LILIYA Ahuja MD
[2022-12-19] MEDS: Lidocaine 5% Patch 1 PATCH TP (17:08)
[2022-12-19] MEDS: Insulin Aspart 300 UNITS/3 ML PEN SC ×2 (17:08→21:39)
[2022-12-19] MEDS: levETIRAcetam 250 MG TAB 1000 MG PO (19:36)
[2022-12-19] MEDS: Divalproex 125 MG SPRINKLE PO (19:37)
[2022-12-19] MEDS: buPROPion-CR 150 MG TABCR PO (21:39)
[2022-12-19] MEDS: Atorvastatin 10 MG TAB PO (21:39)
[2022-12-19 21:56] VITALS: PULSE 108
[2022-12-19 23:20] VITALS: PULSE 95
[2022-12-20] VITALS (10 sets, daily range): BP systolic 111–125; BP diastolic 74–86; PULSE 61–85; RESP 16–18; TEMP 35.8–36.6; O2SAT 92–97
[2022-12-20] MEDS: cefTRIAXone 1 GM/50 ML BAG IVPB (05:31)
[2022-12-20] MEDS: Lidocaine Patch Removal 1 EACH TP (05:32)
[2022-12-20] MEDS: Lisinopril 5 MG TAB PO (07:40)
[2022-12-20] MEDS: Metoprolol CR 50 MG TABCR PO (07:40)
[2022-12-20] MEDS: Donepezil 5 MG TAB 10 MG PO ×2 (07:40→21:07)
[2022-12-20] MEDS: levETIRAcetam 250 MG TAB 1000 MG PO ×2 (07:41→21:06)
[2022-12-20] MEDS: buPROPion 100 MG TAB PO (07:41)
--- NOTE | 2022-12-20 08:00 | DI.MRI_ITS ---
Exam(s) MR LIMITED EXAM EXAM: MR LIMITED EXAM CLINICAL HISTORY: pancreatic mass TECHNIQUE: Multiplanar multisequence MRI of the Abdomen was performed. COMPARISON: CT CT CHEST/ABD/PEL W from 12/17/2022 FINDINGS: There is patient motion artifact. The patient was unable to complete the examination. Liver: No evidence of a hepatic mass. Pancreas: There is an infiltrative mass in the region of the body of the pancreas around the celiac t runk and proximal SMA measuring approximately 6 x 5 x 4.5 cm. Gallbladder and Bile Ducts: No evidence of cholelithiasis. No biliary ductal dilatation. Adrenals: No evidence of an adrenal mass. Kidneys: Unremarkable. Spleen: Unremarkable. Bowel: Unremarkable. Aorta: Unremarkable. Soft Tissues: Collateral vessels are seen in the left upper quadrant. This is secondary to obstructi on by the pancreatic mass of the splenic vein. This is best appreciated on the CT scan of the abdome n and pelvis from 12/17/2022. Bone: Unremarkable. Lymph Nodes: There is a prominent 1.7 x 1 cm portal caval lymph node. IMPRESSION: 1. Infiltrative mass measuring approximately 6 x 5 x 4.5 cm which appears to involve or arise from th e adjacent proximal body of the pancreas. 2. Mildly prominent portal caval lymph node measuring 1.7 x 1 cm. DATA REPOSITORY:
--- NOTE | 2022-12-20 08:04 | OT.INIE ---
Occupational Therapy Notes Inpatient Occupational Therapy Evaluation Date: 12/20/22 Referring Doctor:Sade Acevedo MD OT Orders: Non Urgent Precautions: Fall, Standard, full PATIENT PROFILE/ADMITTING DIAGNOSIS: Pt is a 67 year old male who presented to the ED with a clinical impression of Frequent falls, Generalized weakness, Dizziness, Orthostatic hypotension on 12/17. He was admitted to the Med Surg floor with the following dx of abnormal abdominal CT scan, Temporal lobe seizure, early onset Alzheimer's dementia, failure to thrive as an adult, frequent falls, generalized weakness, dizziness, orthostatic hypotension, intracranial hemorrhage, muscular deconditioning. Past Medical History: All Active Problems?(Updated 12/17/22 @ 20:14 by Vikash Mitchell MD) Failure to thrive in adult (Acute) Frequent falls (Acute) Generalized weakness (Acute) Dizziness (Acute) Orthostatic hypotension (Acute) Intracranial hemorrhage (Acute) Muscular deconditioning (Acute) Hypertension (Chronic) COVID-19 (Acute) UTI (urinary tract infection) (Acute) Generalized weakness (Acute) Chronic diarrhea (Chronic) Mild cognitive impairment (Chronic) Diabetes (Chronic) COVID-19 (Acute) 11/24/21 Vaccinated, boostedUmbilical hernia (Acute) Back pain (Acute) Diarrhea (Acute) Urinary frequency (Acute) Tachycardia (Chronic) MARTA (obstructive sleep apnea) (Chronic) Does not use CPAPHyperlipidemia (Acute) Arthritis (Acute) Knees, lower back, shouldersAcute CVA (cerebrovascular accident) (Acute) 2018 and 2019Chronic low back pain (Acute) Lumbar facet arthropathy (Acute) Lumbar spondylosis (Acute) without myelopathy or radiculopathy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Heart disease (Acute) Cerebral amyloid angiopathy (Acute) Generalized tonic-clonic seizure (Acute) Only 1 seizure ever after first CVADiabetic peripheral neuropathy (Acute) Very mild Medical History? Bilateral inguinal hernia Bundle branch block lumbar/thoracic medial right l2-5Compression fracture of L1 vertebra Diverticulosis of colon without diverticulitis per colonoscopy 07/2008 Elevated fasting blood sugar (09/08/15) A1c 6.3 in 08/2015 History of revision of total replacement of left knee joint Renal calculi Rotator cuff arthropathy of right shoulder Ruptured appendix Appendectomy when he was 13.Sensorineural hearing loss, bilateral (09/03/15) Tinnitus, bilateral (09/03/15) Varicose veins of lower extremity GREAT SAPHENOUS VEIN LEFT LEG Surgical History? H/O cystoscopy w/ internal urethrotomyHistory of cardiac radiofrequency ablation (RFA) History of surgical procedure makoplasty on left knee, basal cell removed from right earStatus post appendectomy Social History/Home Situation: Pt states that he lives in a private home with his girlfriend. He reports that he doesn't need help with his ADLs but that she does help him. He reports that he sometimes has difficulty with dressing. He also notes that he has a walk in shower but does not need a bench because he can stand. He does report that at times he is off balance but isn't concerned in terms of falling. Equipment owned/DME: Pt states that he does not feel that this is necessary to answer. SUBJECTIVE: Pt was pleasant at initial consult but then gets slightly agitated with increased questions about his baseline level of function. He takes a lot of deep breathes with increased agitation. He reports that he plans to return home. OBJECTIVE: General Observation: A&Ox3 Mental Status: Able to answer questions but agitated with increased questions being asked. Pain: Pt reports that he has 0/10 pain at this time. ROM: RUE AROM WFL L UE AROM WFL STRENGTH: RUE 4-/5 LUE 4/5 FUNCTIONAL MOBILITY/ADLS: BATHING Pt is agitated and notes that he is not going to perform this at this time. He is able to touch his face and cross midline indicating that he has AROM enough to wash his upper body. Low body he notes that he is (I) but was not willing to demonstrate. OT will continue to assess this. DRESSING Pt requires mod (A)S with don and doffing (B) socks GROOMING NT at todays session but (I) with hand to mouth, may require mod (A) with fine motor control but otherwise (I) with oral hygiene. TOILETING NT EATING Pt utilizes a modified grasp on his silverware for performance of eating routines. He can (I) cut his food and bring his food to mouth (I). Functionally no (A) needed in regards to this, however he is agitated with any interuption in his task initiation. BALANCE: Static sitting Good Dynamic Sitting Good SPECIAL TESTS: Daily Activity Limitations Standardized Measure [facility] AM -PAC ?6 clicks? Daily Activity Inpatient Short Form: Raw score: 21 Standardized score: 44.27 CMS score: 32.79% INFORMED CONSENT/EDUCATION: Pt instructed in purpose of OT Consult and plan of care. ASSESSMENT: Patient is a 67-year-old male referred to occupational therapy services with diagnosis of Frequent falls, Generalized weakness, Dizziness, Orthostatic hypotension on 12/17. He was admitted to the [facility] Surg floor with the following dx of abnormal abdominal CT scan, Temporal lobe seizure, early onset Alzheimer's dementia, failure to thrive as an adult, frequent falls, generalized weakness, dizziness, orthostatic hypotension, intracranial hemorrhage, muscular deconditioning. Patient presents with clinical signs and symptoms consistent with dx, as demonstrated by the following impairment level findings/functional limitations: Impairments in ADL/IADL and leisure activities, decreased gross and fine motor control, decreased functional mobility required for ADL performance, decreased strength, easily agitated with task initiation or disruption of task sequencing, decreased cognitive awareness. AMPAC score 21 Patient is assessed as a Low 32380 complexity based on the following: History: see above Examination: see functional limitations as noted above Presentation: evolving Decision Making: AMPAC score 21 GOALS Goals x1 week 1. Grooming seated (I) 2. Dressing seated (I) UE/LE 3. Bathing standing at sink (I) UE and LE 4. Toileting on toilet (I) 5. Eating seated in chair (I) PLAN OF CARE/TREATMENT PLAN: 1x/day, 3-5 days/ week x 1week Initiate Occupational Therapy Services for bathing, dressing, grooming, toileting, eating, transfer training. DISCHARGE RECOMMENDATIONS SNF vs. LTC. If pt does return home, OT recommends that pt have HH services to (A) with caregiver needs d/t increased demands of pts needs at this time. TREATMENT TIME/MINUTES/CODES 72324, 25 minutes Madeline Garcia OTR/[facility] [place], [place]
--- NOTE | 2022-12-20 10:34 | CMPROGNOTE_ITS ---
Date of service: 12/20/22 Time of Service: 10:35 Care Management Progress Note Progress Note Text Progress Note Text: S/O: Wilfred was lying in bed when CM met with him. His s/o, Pat was in the room visiting. Wilfred was minimally engaged in the conversation, and stated that he felt confused. Pat discussed SNF options with CM, as SNF is recommended by PT. Pat provided a list of facilities including [facility], [facility], [facility], [place], [facility] and [facility]. She also stated that if there is bad news on the MRI, she would prefer to bring him home on hospice. They met with Palliative care later, to discuss goals of care. MRI was scheduled for this afternoon, as well as a Neuro consult. CM will continue to follow. A: Dario is a 67 year old male admitted to [facility] on 12/17/22 for orthostatic hypotension, falling. P: Dario will likely require SNF prior to returning home; CM will discuss SNF options with Wilfred and his , Rubi. Transportation will be determined by disposition. He will follow up with his PCP and discharge plan of care. CM will continue to follow.
--- NOTE | 2022-12-20 12:59 | PCNE_ITS ---
Date of service: 12/20/22 Time of Service: 12:59 History of Present Illness Narrative: Dario Mckeon is a 67-year-old gentleman from [facility] with all amyloid angiopathy (CAA) who has a history of several strokes due to hemorrhage and mild cognitive impairment.Other medical problems include hypertension, diabetes, MARTA (unable to use CPAP), history of depression/anxiety, hype rlipidemia. Palliative care team has been asked to meet with him and his family to review goals of care, discuss advance care planning and add extra layer of support. Additionally, there is a possible pancreatic mass seen on abdominal CT done in the last few weeks. History today from partner Rubi Mckeon and [facility]'s records. Patient unable to provide any history. First stroke 2016 in [place]. Rubi says he had no memory problems afterwards. Continued to drive. Was followed by Dr. Sher, ([facility] in [place], [place]). Dxed with Cerebral amyloid angiopathy. No [place] notes are available. Second stroke July 2021: started having attention and memory problems, stopped driving. Still independent, rider mower. No longer able to pay bills. Put on Depakote for SUNDOWNING (not for seizures). This did help the sundowning. Rubi reports he had no residual effects, although [facility] note says he had some mild left hemiparesis, gait disturbance, in addition to fairly significant cognitive decline. In fall 2021 he was also started on donepezil and amantadine by [facility] neurologist. Third stroke : 3 weeks ago: Very confused, walks with walker, shuffling, really can't walk. Rubi says he has never manifested any seizures...[place] [facility] He was on the Depakote for the sundowning only, and therefore low dose. Rubi is very concerned that he was switched to high-dose Depakote during [facility] admission last month and this totally sedated him. She is already seen an improvement with decreasing Depakote dose back to 250 mg daily. Orthostatic hypotension: Problematic during last months [facility] admission. Systolic drop of 40 points upon arrival for this admission. Adjustments made in medications. Causing seizures. Likely contributing to falls and poor gait. Care Team: Primary Care physician: Maynor Hunt Neurology: Dr. Ivy, [facility], Celsa Dow ([facility]) Social HX: Lives in [place] with Rubi (life partner of 14 years, DPOA, emergency nurse). Retired [place] [employer] office for over 30 years. Retired age 60 (no memory problems at that time) Moved to [place] after skilled nursing. Moved back after second stroke (july 2021) He has 3 children who live in [facility] (sees once a year or so), [place] (estranged), [facility] (estranged). Two step sones and three stepgrandchildren through Rubi. Hobbies: IN the past: Brando rider, hunting. Recently enjoys fishing, driving in car looking for wildlife and looking around. Car races (spectator) FamHx: Mom at [facility] and Dad at [facility], He would never go to either of those places. Impression of currents health status:(Rubi: Was doing good until the last stroke.) Patient unable to answer What bothers you the most: Patient unable to answer What worries you the most: Patient unable to answer. Rubi is worried of out possible pancreatic mass. Also worried about how she is going to care for him at home. Goals: (Rubi) to get Wilfred back home Current information preferences: Function: Ambulation: Unable to ambulate without assist, using a walker the last few days ADLs: Able to feed himself. Currently continent and able to request going to the bathroom. Unknown if he is able to dress himself. Needs assist with bathing due to imbalance iADLs: Totally dependent Hearing: Reportedly normal Vision: Reportedly normal Cognition: See [facility] Palliative Performance Scale % Ambulation Activity and Evidence of Disease Self Care Intake Level of Consciousness 100 Full Normal activity, no evidence of disease Full Normal Full 90 Full Normal activity, some evidence of disease Full Normal Full 80 Full Normal activity with effort, some evidence of disease Full Normal or reduced Full 70 Reduced Unable to do normal work, some evidence of disease Full Normal or reduced Full 60 Reduced Unable to do hobby or some housework, significant disease Occasional assist necessary Normal or reduced Full or confusion 50 Mainly sit/lie Unable to do any work, extensive disease Considerable assistance required Normal or reduced Full or confusion 40 Mainly in bed Unable to do any work, extensive disease Mainly assistance Normal or reduced Full, drowsy, or confusion 30 Totally bed bound Unable to do any work, extensive disease Total care Reduced Full, drowsy, or confusion 20 Totally bed bound Unable to do any work, extensive disease Total care Minimal sips Full, drowsy, or confusion 10 Totally bed bound Unable to do any work, extensive disease Total care Mouth care only Drowsy or coma 0 - - - - Patient Score: 40-50 Spiritual history: Not queried Palliative review of systems: Patient only briefly awake during my visit and s eems unable to answer these questions Pain: Rubi does not think he is having any pain. Dyspnea: Rubi denies GI symptoms: Rubi denies Appetite: Rubi reports appetite is good Depression: Not queried Anxiety: None Emotional Distress: Spiritual/Existential Distress: Labs: Cr:1.3 Liver panel:NL Albumin:3.2 CBC:NL Advanced Care Planning: Advanced Directive: NONE ON FILE (document labeled as AD is actually another HCA form) Health Care Agent: Rubi Mckeon, on file COLST:None Limitations: Assessment and Plan Assessment and plan (1) Palliative care encounter: Status: Acute Assessment and plan: Majority of today's visit was spent discussing goals of care with patient's partner Rubi. Due to patient's dementia, he is unable to participate in this discussion. Most recent intracranial hemorrhage that Wilfred suffered last month has drastically reduced his functional status causing difficulties in ambulation and increasing falls. Unclear how much of this is iatrogenic (due to increasing blood pressure medicine (now decreased again) and increased Depakote (now decreased back down to previous dose). Rubi reports their goal has always been to keep him at home no matter what. Wilfred's parents at mcc facilities (one at [facility] and the other at [facility]).Rubi says that she promised Wilfred she would never allow him to be admitted to a usp. However she admits its been very difficult to care for him for the last 2 weeks since he returned from his [facility] inpatient stay. In fact, she had not had a good night sleep, having to awaken several times a night to make sure he was safe. She is actually sleeping better since he has been in the hospital. Regarding prognosis: Patient has now had his third intracranial bleed from CAA. Most likely he will continue to have ICH due to the CAA. Unfortunately, this will result in progressive disability. Rubi says she is aware of this; and although it makes her terribly sad, she is excepting of this. Again mentions that she would be interested in enrolling Dario in hospice when the time comes. She is thinking the following plan: If MRI later today shows a pancreatic mass (suggestive of pancreatic cancer), she would like to take make home on hospice. If it turns out there is no suspicious pancreatic mass, she would endorse having him go for 1 to 2 weeks subacute rehab stay for intensive physical therapy and then bring him back home. She has been talking with friends and family to set up additional help for herself at home. Additionally might hire some private help. Regarding CODE STATUS: Rubi seems ambivalent about CODE STATUS. As Wilfred's healthcare agent, she has requested both full code and no CODE STATUS. Currently listed as full code.We discussed the procedure of CPaR, actual mechanical process, rate of success in restoring heartbeat, short and long-term side effects in survivors (including likely decreased physical and cognitive functioning). Given Wilfred's current functional status, comorbidities, and especially his goal to stay out of the usp no matter want, I advised that electing a no CPR, no intubation order would align with his wishes. Rubi feels that this would be giving up on Dario. Yet she is clearly ready to enroll him in hospice if it turns out he has a pancreatic mass. Further discussion, she really feels she needs additional family members with her to make this decision. Plan: --We agreed to meet on December 22 at 4 PM for family meeting with Rubi and her grandson at the bedside to revisit CODE STATUS. --After my meeting with the Wilfred and Rubi, MRI report shows 6 x 5 x 4.5 pancreatic mass. We will discuss the option of hospice admission at that time. -- Discuss further the magnitude of responsibility of caring for someone with Wilfred's disabilities at home. Rubi will continue to discuss with her family and friends as well as case management to see if they are able to set up a system at home to care for him. (2) Cerebral amyloid angiopathy: Status: Acute (3) Advanced care planning/counseling discussion: Status: Acute Assessment and plan: 16 to 30 minutes spent today on Advance Care Planning. Patient and family participated voluntarily. Advance care planning may include (not limited to) explanation and discussion of advance directives, choosing and appointing healthcare agents, alternatives to various ACP tools, discussion of (and if indicated, completion of) COLST form, discussion of patient's values and overall goals for treatment, palliative and disease directive care options, ways to avoid hospital readmission including hospice discussions, care preferences should the patient's suffer adverse health events.See today's palliative care note for additional information. (4) Temporal lobe seizure: Status: Acute Assessment and plan: If Wellbutrin is stopped (due to lowering of seizure threshold), would recommend starting citalopram at 10 mg daily for both depression and may be helpful with dementia behaviors (5) Dementia with behavioral disturbance: Status: Acute (6) Recurrent cerebrovascular accidents (CVAs): Status: Acute (7) Caregiver stress: Status: Acute Assessment and plan: See discussion under HPI. Supportive discussion today with Rubi. The last 3 weeks at home have been overwhelming. Rubi will work with friends family and case management to set up supports in anticipation of Dario's return home. PFSH All Active Problems (Updated 12/20/22 @ 13:14 by Rosalva Russell MD) Advanced care planning/counseling discussion (Acute) Caregiver stress (Acute) Recurrent cerebrovascular accidents (CVAs) (Acute) Dementia with behavioral disturbance (Acute) Vascular dementia (Acute) Palliative care encounter (Acute) Abnormal abdominal CT scan (Acute) Temporal lobe seizure (Acute) Early onset Alzheimer's dementia (Acute) Discharge planning issues (Acute) DVT prophylaxis (Acute) Failure to thrive in adult (Acute) Frequent falls (Acute) Generalized weakness (Acute) Dizziness (Acute) Orthostatic hypotension (Acute) Intracranial hemorrhage (Chronic) Muscular deconditioning (Acute) Hypertension (Chronic) COVID-19 (Acute) UTI (urinary tract infection) (Acute) Generalized weakness (Acute) Chronic diarrhea (Chronic) Mild cognitive impairment (Chronic) Diabetes (Chronic) COVID-19 (Acute) 11/24/21 Vaccinated, boosted Umbilical hernia (Acute) Back pain (Acute) Diarrhea (Acute) Urinary frequency (Acute) Tachycardia (Chronic) MARTA (obstructive sleep apnea) (Chronic) Does not use CPAP Hyperlipidemia (Acute) Arthritis (Acute) Knees, lower back, shoulders Acute CVA (cerebrovascular accident) (Acute) 2018 and 2019 Chronic low back pain (Acute) Lumbar facet arthropathy (Acute) Lumbar spondylosis (Acute) without myelopathy or radiculopathy 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 Heart disease (Acute) Cerebral amyloid angiopathy (Acute) Generalized tonic-clonic seizure (Acute) Only 1 seizure ever after first CVA Diabetic peripheral neuropathy (Acute) Very mild Medical History Bilateral inguinal hernia 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 Status post appendectomy At age 13 Family History Mother Heart disease Dementia Father Heart disease Alzheimer disease Brother Alcohol use disorder Depression Heart disease Grandfather Heart disease Grandfather Personal history of malignant neoplasm LUNG Grandmother Essential hypertension Heart disease Grandmother Diabetes Essential hypertension Personal history of malignant neoplasm COLON Heart disease Social History Smoking/Tobacco Use Status: Former Tobacco Use tobacco type: cigarettes Quit Date: 04/17/88 Second Hand Exposure: Yes Smoking risk assessment performed?: Yes Alcohol Intake: current Alcohol Intake frequency: a few times a month Alcohol type: beer Drug use: Never Substance use type: does not use Caregiver/Support person: Yes Household members: significant other, friend(s) and caregiver Housing: house Do you need help understanding health information?: Often Pets and animals: Yes Pets and animals: cat(s) and dog(s) Sexually active: No Do you think of yourself as: straight/heterosexual Current gender identity: male What is your relationship status?: living with partner How often do you talk on the phone with friends or family?: three or more times per week How often do you get together with friends or relatives?: once per week How often do you attend yazidi or hoahaoism services?: decline to answer Do you belong to any clubs or organized social groups?: no Panel score (0-1 are the most socially isolated patients): 2 What type of physical activity do you participate in: none Frequency: does not exercise Yaima/Religious: No preference Special yaima needs: No Seatbelt use: always Drive intox or ride w/intox driver's education instructor: No Do you feel safe at home: Yes Do you feel safe in your relationship?: Yes Exam Narrative Exam Narrative: Patient is sleeping through the first 75% of my visit. He then wakes up. He is can answer simple yes or no questions. He is not oriented to where he is. Can repeat his name. Not oriented to time month. Speech is slow but appears fluid. No further exam done Results Last Vital Signs Temp 36.1 C L 12/20/22 12:51 Pulse 72 12/20/22 12:51 Resp 16 12/20/22 12:51 BP 111/78 12/20/22 12:51 Pulse Ox 96 12/20/22 12:51 Labs 12/19/22 06:30 12/19/22 06:30
[2022-12-20] MEDS: ALPRAZolam 0.25 MG TAB PO (14:35)
--- NOTE | 2022-12-20 16:02 | PDOC.EEG_ITS ---
Neurology EEG EEG: [facility] Department of Neurology INPATIENT EEG REPORT Date of Recordin12/20/22 11:09:24 to 14:38:20 Interpreting Physician: Dr. Celsa Dow Reason for study: Mr. Mckeon is a 67 year-old with recent L temporal hemorrhage and subclinical seizures who had a change in seizure medications. Current Medications: Current Medications Acetaminophen (Acetaminophen 325 Mg Tab) 650 mg PO Q6H PRN PRN Last Admin: 12/18/22 19:27 Dose: 650 mg Alprazolam (Alprazolam 0.25 Mg Tab) 0.25 mg PO GRINDER SET UP OPERATOR EXTERNAL PRN PRN Reason: Anxiety Stop: 12/20/22 23:59 Last Admin: 12/20/22 14:35 Dose: 0.25 mg Atorvastatin Calcium (Atorvastatin 10 Mg Tab) 10 mg PO HS [facility] Last Admin: 12/19/22 21:39 Dose: 10 mg Bupropion HCl (Bupropion 100 Mg Tab) 100 mg PO DAILY [facility] Last Admin: 12/20/22 07:41 Dose: 100 mg Bupropion HCl (Bupropion-Cr 150 Mg Tabcr) 150 mg PO HS [facility] Last Admin: 12/19/22 21:39 Dose: 150 mg Cyclobenzaprine HCl (Cyclobenzaprine 10 Mg Tab) 10 mg PO BID PRN PRN PRN Reason: muscle spasm Dextrose (Glucose Oral Gel 15 Gm/37.5 Gm Tube) 0 gm PO DIRECTED PRN Dextrose/Water (Dextrose 50%-Water 25 Gm/50 Ml Syr) 0 gm IVP DIRECTED PRN Diphenhydramine HCl (Diphenhydramine 50 Mg/Ml Vial) 50 mg IVP ONCE PRN PRN Reason: Agitation Divalproex Sodium (Divalproex 125 Mg Sprinkle) 125 mg PO QPM [facility] Last Admin: 12/19/22 19:37 Dose: 125 mg Donepezil HCl (Donepezil 5 Mg Tab) 10 mg PO BID [facility] Last Admin: 12/20/22 07:40 Dose: 10 mg Flecainide Acetate (Flecainide 100 Mg Tab) 100 mg PO BID [facility] Last Admin: 12/20/22 07:44 Dose: 100 mg Sodium Chloride (Saline 500ml Bag) 500 mls @ 0 mls/hr IV PRN PRN Ceftriaxone Sodium/Dextrose (Rocephin) 1 gm in 50 mls @ 100 mls/hr IVPB Q24H [facility] Last Infusion: 12/20/22 10:01 Dose: Infused IV Miscellaneous Supplies (Iv Access) 1 each IV DIRECTED [facility] Insulin Aspart (Insulin Aspart 300 Units/3 Ml Pen) 0 units SC 0800,1200,1700,2200 [facility]; Protocol Last Admin: 12/20/22 12:10 Dose: Not Given Levetiracetam (Levetiracetam 250 Mg Tab) 1,000 mg PO BID [facility] Last Admin: 12/20/22 07:41 Dose: 1,000 mg Lidocaine (Lidocaine 5% Patch) 1 patch TP Q24H [facility] Last Admin: 12/19/22 17:08 Dose: 1 patch Lisinopril (Lisinopril 5 Mg Tab) 5 mg PO DAILY [facility] Last Admin: 12/20/22 07:40 Dose: 5 mg Lorazepam (Lorazepam 2 Mg/Ml Vial) 1 mg IVP ONCE PRN PRN Reason: Agitation Metoprolol Succinate (Metoprolol Cr 50 Mg Tabcr) 50 mg PO DAILY [facility] Last Admin: 12/20/22 07:40 Dose: 50 mg Miscellaneous (Lidocaine Patch Removal) 1 each TP Q24H [facility] Last Admin: 12/20/22 05:32 Dose: 1 each Oxycodone HCl (Oxycodone 5 Mg Tab) 5 mg PO BID PRN PRN Patient's Own Medication ( Memantine 28 Mg Capsule,Sprinkle,Er 24hr) 1 each PO DAILY [facility] Last Admin: 12/20/22 07:41 Dose: 1 each Sodium Chloride (Normal Saline Flush 10 Ml Syr) 0 ml IVP PRN PRN METHODS: A 21 channel digitized electroencephalogram was performed in the [facility] Med/Surg Floor or ICU. The 10/20 international system of electrode placement was used and bipolar and referential electrode montages were recorded. In addition to EEG the patient was monitored for EKG and lateral/vertical eye movements. Activation procedures of photic stimulation and hyperventilation were performed if applicable. Video was used during activation procedures and during events where applicable. The duration of the recording was ~3.5hr. DESCRIPTION OF EEG: The patient was noted to be awake, drowsy, and asleep during the recording. During maximal wakefulness an 8-Hz posterior background rhythm was present which was seen only on the right and was somewhat poorly formed. With eye opening the background activity changed to a low voltage mixture of alpha, beta, and occasional theta range frequencies. Faster frequencies were present in the bilateral anterior head regions. There was a normal anterior-posterior voltage gradient. During drowsiness, there was attenuation of the posterior dominant background rhythm and vertex waves. Stage II sleep was present with symmetrical sleep spindles, K-complexes, and vertex waves. Activating Procedures: Photic stimulation was performed which produced no posterior driving responses. Hyperventilation was not performed. EKG: EKG revealed normal sinus rhythm. INTERPRETATION: This EEG is abnormal due to focal left hemisphere slowing on top of generalized slowing. PRIOR EEG: -vEEG (November 2022 at [facility]): subclinical L temporal seizures. CLINICAL CORRELATION: The above slowing is consistent with the patient's known history of dementia and recent L temporal hemorrhage. No epileptiform activity was present. Clinical correlation is advised. Celsa Dow MD
--- NOTE | 2022-12-20 16:03 | W.PM.PROGNOT ---
Date of Service Date of service: 12/20/22 Time of Service: 16:03 Assessment and Plan Assessment and plan (1) Orthostatic hypotension: Status: Acute Assessment and plan: Multifactorial most likely medication related to his lisinopril and his Depakote but may be some autonomic component. It has improved. continue to monitor, use YAMILET hose, gradual transfers in/out of bed, avoid abrupt postural changes. Given his hx of ICH, I would not use any vasoactive medications to support his bp, i.e. no midodrine; I would also avoid fludrocortisone (2) Intracranial hemorrhage: Status: Chronic Assessment and plan: On 11/29/22. Avoid chemical DVT ppx. BP control. C/s PT, palliative care. (3) Temporal lobe seizure: Status: Acute Assessment and plan: secondary to recent temporal lobe ICH. continue Keppra, check follow up EEG from today. Dr. Russell suggested discontinuing the Wellbutrin in favor of Celexa which has less seizure risk. I am reluctant to change what has worked in the past for his mood stabilization, however, if Dr. Dow agrees that the Wellbutrin is presenting a significant risk of not controlling his temporal lobe seizures then I will wean off the Wellbutrin and start on Celexa. (4) Frequent falls: Status: Acute Assessment and plan: mutlifactorial including his baseline dementia, multiple CVA from hemorrhages. continue P.T. but will likely need short term placement for rehab prior to return home. Rubi would like to know the result of his MRI, she says that if it is a pancreatic tumor then she would be inclined to take him home rather then send him to a SNF (5) UTI (urinary tract infection): Status: Acute Assessment and plan: greater than 100,000 colonies of mixed gram positive ariel, likely contaminant. I will dc Rocephin but give him one time dose of fosfomycin (6) Hypertension: Status: Chronic Assessment and plan: continue lisinopril 5 mg daily; monitor BP if persistent SBP >150 then will add low dose amlodipine at night. (7) Failure to thrive in adult: Status: Acute Assessment and plan: Multifactorial, due to a recent cerebral hemorrhage, early dementia, possible effect of medications. C/s palliative care. Patient will likely need short-term placement for rehab at a [facility] facility but decision by his DPOA is dependent on MRI results of his abdomen (8) Back pain: Status: Acute Assessment and plan: prn tylenol. CT of LS and T spine were obtained from reconstruction of his CT of his abdomen and chest. They show chronic wedge compression fracture of T5 and DJD of L4/L5, and L5/S1 (9) Early onset Alzheimer's dementia: Status: Acute Assessment and plan: Continue donepezil/memantine. is to bring in his Namenda as we do not carry in our pharmacy (10) DVT prophylaxis: Status: Acute Assessment and plan: Written for TEDs. AVoid chemical DVT ppx in light of recent cerebral hemorrhage. (11) Discharge planning issues: Status: Acute Assessment and plan: currently FULL CODE status, but Dr. Russell has met w/ patient and his dental equipment installer and servicer/DPOA and she is thinking of changing his code status but wants input from her children. Dr. Russell will meet again w/ the patient and Rubi on Subjective Subjective Interval history since last seen: Dario is more irritable this afternoon, but this is after he had been medicated for his MRI of his abdomen to evaluate a pancreatic mass seen on CT scan. He did not tolerate the study and the study was not completed. This inspite of him receiving xanax before the procedure. We will try again tomorrow. He did get his EEG done, results are pending. Dr. Dow will be over to see him after office hours today. Dr. Russell from Palliative care saw him and his female dental equipment installer and servicer. She has made recommendations on his medications (see her note for details). Rubi has indicated that she would like to talk things over w/ her children before making any change in Dario's code status. Exam Narrative Exam Narrative: Lele seems lethargic but arouseble and he is able to answer my questions but he is not oriented to place/time nor circumstances. He does recognize his dental equipment installer and servicer as well as recognizing me as his doctor Rest of his exam is unchanged Lungs: clear Heart: regular Abdomen: soft, nontender Objective Last Vital Signs Temp 36.2 C L 12/20/22 15:54 Pulse 78 12/20/22 15:54 Resp 16 12/20/22 15:54 BP 161/105 H 12/20/22 15:54 Pulse Ox 94 12/20/22 15:54 Time Spent with Patient Time Spent with Patient: 25-34 minutes Time was spent: preparing to see the patient(eg.review tests), ordering medications,tests, procedures, referring, communicating with other health director of critical care (discussions w/ Dr. Dow and Dr. Russell), indepentently interpreting results, counseling the patient and care coordination
--- NOTE | 2022-12-20 16:49 | PT.INNT ---
Date of service: 12/20/22 Time of Service: 09:50 PT Notes Visit Reasons: Orthostatic hypotension, falling Patient unavailable at 9:50, 12:49, 13:57 and 16:48. Will try again tomorrow.
--- NOTE | 2022-12-20 16:52 | W.NEUROCONSU ---
Date of service: 12/20/22 Time of Service: 16:52 Assessment and Plan Assessment and plan (1) Recurrent cerebrovascular accidents (CVAs): Status: Acute (2) Dementia with behavioral disturbance: Status: Acute (3) Vascular dementia: Status: Acute (4) Temporal lobe seizure: Status: Acute (5) Frequent falls: Status: Acute (6) Orthostatic hypotension: Status: Acute Assessment and plan: Mr. Mckeon presents with AMS, dizziness, and falls found to have orthostatic hypotension. His AMS has improved. Unclear if he is still experiencing OH symptoms, though tilt negative as of 12/18/22 - improved due to hydration? cessation of Depakote? I would recommend repeat orthostatic bedside testing tomorrow for further monitoring. Continue PT as he will allow. If he continues to be symptomatic from OH, consider the addition of pyridostigmine 30mg (half of 60mg tab) am and noon. This would not increase his BP as most other medications in the group. We want to avoid elevated BPs due to his history of CAA/ICH. Goal SBP <140. Otherwise, LEV 1000mg BID seems to be suppressing seizure activity. I recommend that he continue on anti-seizure medication for the time being given his recent hemorrhage has not completely resolved and that he remains at high risk for further seizure activity. Agree that preference would be to wean/switch off bupropion if possible as it increases his risk of seizures. Will continue to follow along. History of Present Illness History of Present Illness Chief Complaint: falls Narrative: Handedness: right. HPI: Wilfred Mckeon is a 67 year-old with cerebral amyloid angiopathy and multiple previous hemorrhagic strokes, dementia, hypertension, hyperlipidemia, DM2, MARTA intolerant of CPAP, depression, anxiety, and scoliosis. Wilfred is at bedside with his partner Dinh. He is still a bit groggy and altered from lorazepam given earlier for an MRI abdomen attempt. Dinh notes that he is a bit more short-tempered than usual since getting the lorazepam. Wilfred was admitted to [facility] on 12/17/22 for increasing sedation, altered mental status,, dizziness, and falls following hospitalization at [facility]. Wilfred was admitted to [facility] 11/29/22-12/05/22 for a L anterior temporal hemorrhage secondary to CAA manifested by AMS. While there, on EEG, he was noted to have subclinical L temporal seizures, for which his previous dose of Depakote 125mg HS (long time x several years for dementia related agitation) was increased to 1000mg BID while inpatient to treate his seizures as well. It appears though that he was discharged on 750mg BID but I am not sure why as the EEG report indicates that seizure activity didn't stop until the 1000mg BID dose..... Lisinopril was increased from 2.5mg daily to 10mg daily, atorvastatin was decreased from 20mg HS to 10mg HS, and Trazadone was added for sleep/delirium that he experienced while at [facility]. Of note, he had prior R frontal hemorrhagtic strokes in 2016/2016 and then again in 2018 (both while living in [facility]). They note no residual weakness, sensory, or language deficits from his strokes. When he initially arrived at [facility], he was noted to be orthostatic with a drop in BP of 40 points. Depakote has since been stopped and he has been started on LEV 1000mg BID. He seems to be tolerating this well without ADRs and no obvious seizure activity. Lisinopril has been reduced to 5mg daily. Orthostatic negative as of 12/18/22, but unclear if symptoms have improved. He can't really tell me today. PT notes from 12/18/22 indicate he was not having any dizziness, but poorly cooperative and refusing to ambulate for them. He did not get to see PT today due to testing. Dinh notes that his mental status had returned back to normal prior to receiving lorazepam today. He moved from [place] to [place] in 2021 and currently follows with neurology at [facility]. He stopped driving in 2018 after his second hemorrhage. [facility] Work-up: -MRI brain w/o (11/30/22): Acute L anterior temporal hemorrhagic stroke. Prior R frontal and bilateral parietal lobe hemorrhages. Numerous scattered punctate microhemorrhages throughout the cortex and subcortex consistent with CAA. I reviewed these images personally and this is my personal interpretation. -vEEG (11/30/22-12/01/22): L temporal lobe subclinical seizures. -Labs: LDL 58, A1c 5.5 Current Work-up: -CTH (12/17/22): resolving L anterior temporal hemorrhage. Old right frontal stroke. Chronic vascular changes. I reviewed these images personally and this is my personal interpretation. -EEG x 3.5hr (12/20/22): Generalized and focal L temporal slowing. Review of Systems All systems reviewed & are unremarkable except as noted in HPI and below PFSH All Active Problems (Updated 12/20/22 @ 13:14 by Rosalva Russell MD) Advanced care planning/counseling discussion (Acute) Caregiver stress (Acute) Recurrent cerebrovascular accidents (CVAs) (Acute) Dementia with behavioral disturbance (Acute) Vascular dementia (Acute) Palliative care encounter (Acute) Abnormal abdominal CT scan (Acute) Temporal lobe seizure (Acute) Early onset Alzheimer's dementia (Acute) Discharge planning issues (Acute) DVT prophylaxis (Acute) Failure to thrive in adult (Acute) Frequent falls (Acute) Generalized weakness (Acute) Dizziness (Acute) Orthostatic hypotension (Acute) Intracranial hemorrhage (Chronic) Muscular deconditioning (Acute) Hypertension (Chronic) COVID-19 (Acute) UTI (urinary tract infection) (Acute) Generalized weakness (Acute) Chronic diarrhea (Chronic) Mild cognitive impairment (Chronic) Diabetes (Chronic) COVID-19 (Acute) 11/24/21 Vaccinated, boosted Umbilical hernia (Acute) Back pain (Acute) Diarrhea (Acute) Urinary frequency (Acute) Tachycardia (Chronic) MARTA (obstructive sleep apnea) (Chronic) Does not use CPAP Hyperlipidemia (Acute) Arthritis (Acute) Knees, lower back, shoulders Acute CVA (cerebrovascular accident) (Acute) 2018 and 2019 Chronic low back pain (Acute) Lumbar facet arthropathy (Acute) Lumbar spondylosis (Acute) without myelopathy or radiculopathy 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 Heart disease (Acute) Cerebral amyloid angiopathy (Acute) Generalized tonic-clonic seizure (Acute) Only 1 seizure ever after first CVA Diabetic peripheral neuropathy (Acute) Very mild Medical History Bilateral inguinal hernia 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 Status post appendectomy At age 13 Family History Mother Heart disease Dementia Father Heart disease Alzheimer disease Brother Alcohol use disorder Depression Heart disease Grandfather Heart disease Grandfather Personal history of malignant neoplasm LUNG Grandmother Essential hypertension Heart disease Grandmother Diabetes Essential hypertension Personal history of malignant neoplasm COLON Heart disease Social History Smoking/Tobacco Use Status: Former Tobacco Use tobacco type: cigarettes Quit Date: 04/17/88 Second Hand Exposure: Yes Smoking risk assessment performed?: Yes Alcohol Intake: current Alcohol Intake frequency: a few times a month Alcohol type: beer Drug use: Never Substance use type: does not use Caregiver/Support person: Yes Household members: significant other, friend(s) and caregiver Housing: house Do you need help understanding health information?: Often Pets and animals: Yes Pets and animals: cat(s) and dog(s) Sexually active: No Do you think of yourself as: straight/heterosexual Current gender identity: male What is your relationship status?: living with partner How often do you talk on the phone with friends or family?: three or more times per week How often do you get together with friends or relatives?: once per week How often do you attend hoahaoism or anabaptism services?: decline to answer Do you belong to any clubs or organized social groups?: no Panel score (0-1 are the most socially isolated patients): 2 What type of physical activity do you participate in: none Frequency: does not exercise Yaima/Druze: No preference Special yaima needs: No Seatbelt use: always Drive intox or ride w/intox chain saw driver: No Do you feel safe at home: Yes Do you feel safe in your relationship?: Yes Visit Medication and Allergies Active Medications Generic Name Dose Route Start Last Admin Trade Name Freq PRN Reason Stop Dose Admin Acetaminophen 650 mg 12/18/22 18:36 12/18/22 19:27 Acetaminophen 325 Mg Tab PO 650 mg Q6H PRN PRN Administration Alprazolam 0.25 mg 12/20/22 07:53 12/20/22 14:35 Alprazolam 0.25 Mg Tab PO 12/20/22 23:59 0.25 mg [employer] PRN Administration Anxiety Atorvastatin Calcium 10 mg 12/17/22 22:00 12/19/22 21:39 Atorvastatin 10 Mg Tab PO 10 mg HS GIL Administration Bupropion HCl 100 mg 12/18/22 08:30 12/20/22 07:41 Bupropion 100 Mg Tab PO 100 mg DAILY GIL Administration Bupropion HCl 150 mg 12/17/22 23:00 12/19/22 21:39 Bupropion-Cr 150 Mg Tabcr PO 150 mg HS GIL Administration Cyclobenzaprine HCl 10 mg 12/19/22 08:07 Cyclobenzaprine 10 Mg Tab PO BID PRN PRN muscle spasm Dextrose 0 gm 12/18/22 07:17 Glucose Oral Gel 15 Gm/37.5 Gm Tube PO DIRECTED PRN Dextrose/Water 0 gm 12/18/22 07:17 Dextrose 50%-Water 25 Gm/50 Ml Syr IVP DIRECTED PRN Diphenhydramine HCl 50 mg 12/21/22 08:00 Diphenhydramine 50 Mg/Ml Vial IVP 12/21/22 23:59 [employer] PRN Agitation Divalproex Sodium 125 mg 12/19/22 20:00 12/19/22 19:37 Divalproex 125 Mg Sprinkle PO 125 mg QPM GIL Administration Donepezil HCl 10 mg 12/17/22 23:00 12/20/22 07:40 Donepezil 5 Mg Tab PO 10 mg BID GIL Administration Flecainide Acetate 100 mg 12/18/22 08:30 12/20/22 07:44 Flecainide 100 Mg Tab PO 100 mg BID GIL Administration Sodium Chloride 500 mls @ 0 mls/hr 12/19/22 08:05 Saline 500ml Bag IV PRN PRN As Directed IV Miscellaneous Supplies 1 each 12/19/22 08:15 Iv Access IV DIRECTED [facility] Insulin Aspart 0 units 12/18/22 08:00 12/20/22 12:10 Insulin Aspart 300 Units/3 Ml Pen SC Not Given 0800,1200,1700,2200 [facility] Protocol Levetiracetam 1,000 mg 12/19/22 20:00 12/20/22 07:41 Levetiracetam 250 Mg Tab PO 1,000 mg BID GIL Administration Lidocaine 1 patch 12/19/22 18:00 12/19/22 17:08 Lidocaine 5% Patch TP 1 patch Q24H GIL Administration Lisinopril 5 mg 12/18/22 08:30 12/20/22 07:40 Lisinopril 5 Mg Tab PO 5 mg DAILY GIL Administration Lorazepam 1 mg 12/21/22 08:00 Lorazepam 2 Mg/Ml Vial IVP [employer] PRN Agitation Metoprolol Succinate 50 mg 12/18/22 08:30 12/20/22 07:40 Metoprolol Cr 50 Mg Tabcr PO 50 mg DAILY GIL Administration Miscellaneous 1 each 12/19/22 06:00 12/20/22 05:32 Lidocaine Patch Removal TP 1 each Q24H GIL Administration Oxycodone HCl 5 mg 12/18/22 19:26 Oxycodone 5 Mg Tab PO BID PRN PRN Patient's Own 1 each 12/19/22 08:30 12/20/22 07:41 Medication ( PO 1 each Memantine 28 Mg DAILY GIL Administration Capsule,Sprinkle,Er 24hr) Sodium Chloride 0 ml 12/19/22 08:05 Normal Saline Flush 10 Ml Syr IVP PRN PRN Allergies morphine Allergy (Mild, Verified 12/17/22 16:39) ITCHING ciprofloxacin Allergy (Unknown, Verified 12/17/22 16:39) codeine Allergy (Unknown, Verified 12/17/22 16:39) dextromethorphan [From Nuedexta] Allergy (Unknown, Verified 12/17/22 16:39) pollen extracts Allergy (Unknown, Verified 12/17/22 16:39) quinidine [From Nuedexta] Allergy (Unknown, Verified 12/17/22 16:39) Sulfa (Sulfonamide Antibiotics) Allergy (Unknown, Verified 12/17/22 16:39) Exam Narrative Exam Narrative: Physical Exam: Limited testing as patient was still altered from previous lorazepam Gen: Patient of apparent stated age, NAD Head and face: no facial or cranial abnormalities Neck: Supple, no meningismus, no occipital tenderness CV: + S1, S2, RRR, no murmur Resp: CTA B/L Abd: soft, nontender, nondistended Ext: No edema. No clubbing or cyanosis. No bony deformity. Neuro Exam: Language: fluency, naming, repetition, and comprehension intact; Mental Status: AAOxself only, current events and fund of knowledge extremely limited Speech: no dysarthria Cranial nerves: Funduscopy: not performed CN II: visual corrales intact CN III, IV, : extraocular movements intact - but difficulty with pursuit, no nystagmus, pupils symmetric and reactive to light CN V: face sensation intact to LT and PP CN VII: no facial asymmetry noted CN VIII: hearing intact bilaterally CN IX, X: palate rises symmetrically CN XI: trapezius/SCM 5/5 bilaterally CN XII: protrudes tongue symmetrically Sensory: intact to LT, PP in all extremities Motor: bulk and tone intact. Fine motor movements intact bilaterally. No pronator drift. Strength 5/5 throughout including the deltoids, biceps, triceps, wrist extensors, hip flexors, knee flexors, knee extensors, ankle flexors, and ankle extensors. Reflexes: 2+ at the biceps, triceps, brachioradialis, patella, and achilles tendons bilaterally; +R Babinski; L toe down going Coordination: FTN and HTS intact bilaterally Gait: not tested Results Last Vital Signs Temp 97.2 F L 12/20/22 15:54 Pulse 78 12/20/22 15:54 Resp 16 12/20/22 15:54 BP 161/105 H 12/20/22 15:54 Pulse Ox 94 12/20/22 15:54 Labs 12/19/22 06:30 12/19/22 06:30
[2022-12-20] MEDS: Fosfomycin Tromethamine 3 GM PACKET PO (17:00)
[2022-12-20] MEDS: Lidocaine 5% Patch 1 PATCH TP (17:24)
--- NOTE | 2022-12-20 19:48 | DI.VRAD_ITS ---
PROCEDURE INFORMATION: Exam: MR Abdomen Without Contrast Exam date and time: 12/20/2022 3:16 PM Age: 67 years old Clinical indication: Other: Pancreatic mass TECHNIQUE: Imaging protocol: Magnetic resonance imaging of the abdomen without contrast. COMPARISON: CT CHEST/ABD/PEL W 12/17/2022 6:09 PM FINDINGS: Liver: No mass. Gallbladder and bile ducts: Unremarkable. No stones. No ductal dilation. Pancreas: Infiltrative lesion/mass around the celiac trunk and proximal SMA similar to recent CT 6 x 5 by 4.5 cm, which does appear to involve or arise from the adjacent proximal body of the pancreas. No pancreatic ductal dilatation. Spleen: Unremarkable. No splenomegaly. Adrenal glands: Unremarkable. No mass. Kidneys and ureters: Unremarkable. No solid mass. No hydronephrosis. Stomach and bowel: Visualized stomach and intestines are unremarkable. Intraperitoneal space: No free fluid. Vasculature: No abdominal aortic aneurysm. Lymph nodes: Mildly prominent portal caval node 1.7 x 1 cm similar. Bones/joints: Unremarkable. Soft tissues: Unremarkable. IMPRESSION: 1. Infiltrative lesion/mass around the celiac trunk and proximal SMA similar to recent CT 6 x 5 by 4.5 cm, which does appear to involve or arise from the adjacent proximal body of the pancreas. 2. Mildly prominent portal caval node 1.7 x 1 cm similar. Dictated and Authenticated by: Vikash Gandara MD. Ordering:CHANTAL Stuart MD
[2022-12-20] MEDS: Atorvastatin 10 MG TAB PO (21:06)
[2022-12-20] MEDS: Divalproex 125 MG SPRINKLE PO (21:06)
[2022-12-20] MEDS: buPROPion-CR 150 MG TABCR PO (21:07)
[2022-12-20] MEDS: Insulin Aspart 300 UNITS/3 ML PEN SC (21:08)
[2022-12-21 05:44] VITALS: BP 142/94; PULSE 79; RESP 18; TEMP 36.7; O2SAT 94
[2022-12-21] MEDS: Acetaminophen 325 MG TAB 650 MG PO (06:01)
[2022-12-21 07:00] VITALS: PULSE 72
[2022-12-21] MEDS: Lidocaine Patch Removal 1 EACH TP (07:07)
[2022-12-21] MEDS: Donepezil 5 MG TAB 10 MG PO ×2 (09:06→19:17)
[2022-12-21] MEDS: Lisinopril 5 MG TAB PO (09:07)
[2022-12-21] MEDS: levETIRAcetam 250 MG TAB 1000 MG PO ×2 (09:07→19:17)
[2022-12-21 09:09] LABS: CA 19-9 648 U/mL (<35)
[2022-12-21] MEDS: Metoprolol CR 50 MG TABCR PO (09:09)
[2022-12-21] MEDS: buPROPion 100 MG TAB PO (09:09)
[2022-12-21] MEDS: Normal Saline Flush 10 ML SYR IVP ×2 (09:10→10:20)
[2022-12-21 09:14] VITALS: BP 105/71; BP 105/80; BP 115/78; PULSE 78; PULSE 85; PULSE 89
--- NOTE | 2022-12-21 09:48 | CMPROGNOTE_ITS ---
Date of service: 12/21/22 Time of Service: 09:48 Care Management Progress Note Progress Note Text Progress Note Text: S/O: Wilfred was sitting up in his chair visiting with Teagan, his S/O, when CM met with him. Wilfred stated that he is doing ok today, and recently returned from having an MRI, which he felt he tolerated well. At that time, the results of the MRI had not yet been read. CM reviewed the discharge plan, which will be dependent on the results of the MRI. [facility] has received some interest from [facility]; CM will continue to follow up on the referrals sent. Teagan stated that if there is little to no rehab potential, she will plan to bring him home with HH vs Hospice support. CM will continue to follow. A: Dario is a 67 year old male admitted to [facility] on 12/17/22 for orthostatic hypotension, falling. P: Dario will likely require SNF prior to returning home; Referrals were sent to several facilities, at the patient and his S/O's response. Transportation will be determined by disposition. He will follow up with his PCP and discharge plan of care. CM will continue to follow.
--- NOTE | 2022-12-21 09:49 | OT.INNT ---
Occupational Therapy Notes 12/21/22 OT attempted to see pt this morning who was sleeping and not alert with verbal cues. OT will resume tomorrow. Madeline Garcia, OTR/L
[2022-12-21] MEDS: diphenhydrAMINE 50 MG/ML VIAL IVP (10:20)
[2022-12-21] MEDS: Gadoterate meglumine 20 ML VIAL IVP (11:16)
[2022-12-21] MEDS: Normal Saline - Diluent 50 ML VIAL IJ (11:17)
--- NOTE | 2022-12-21 11:25 | DI.MRI_ITS ---
Exam(s) MR ABDOMEN WO/W EXAM: MR ABDOMEN WO/W CLINICAL HISTORY: pancreatic mass on CT TECHNIQUE: Multiplanar multisequence MRI of the Abdomen was performed. CONTRAST MATERIAL: IV Contrast: 18 mL of Dotarem contrast administered. COMPARISON: CT CT THORACIC LUMBAR SPINE REC from 12/17/[address] CHEST/ABD/PEL W from 12/17/2022 MR MR LIMITED EXAM from 12/20/2022 FINDINGS: This is a continuation of the examination from 12/20/2022. There is significant patient motion artifact present. Liver: No enhancing hepatic masses. Pancreas: There is again seen an infiltrative mass in the region of the body of the pancreas and melisa cent to/involving portion of the celiac trunk and the superior proximal superior mesenteric artery. The lesion is best identified on the CT scan from 12/17/2022 and the MRI from 12/20/2022. There is obstr uction of the splenic vein. The mid pancreatic duct is also not visualized on this examination. Gallbladder and Bile Ducts: There is no biliary ductal dilatation. Soft Tissues: There again seen collateral vessels in the left upper quadrant secondary to obstruction of the splenic vein. Lymph Nodes: There is again seen a prominent 1.7 x 1 cm portacaval lymph node. IMPRESSION: 1. Examination limited by patient motion artifact. 2. Infiltrative mass within or adjacent to, and involving a portion, of the body of the pancreas. Ne oplasm is suspected. 3. 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 There is al so obstruction of the pancreatic duct. DATA REPOSITORY:
[2022-12-21 11:44] VITALS: BP 105/72; PULSE 70; RESP 18; TEMP 36.1; O2SAT 97
[2022-12-21 14:58] VITALS: BP 102/65; PULSE 76; RESP 16; TEMP 36.5; O2SAT 95
--- NOTE | 2022-12-21 15:06 | PGE_ITS ---
Date of Service Date of service: 12/21/22 Time of Service: 15:06 Assessment and Plan Assessment and plan (1) Orthostatic hypotension: Status: Acute Assessment and plan: still present, therefore I have added pyridostigmine as per Dr. Dow suggestions. I have also stopped his lisinopril but will add low dose amlodipine at night to try to control his HTN (2) Intracranial hemorrhage: Status: Chronic Assessment and plan: On 11/29/22. Avoid chemical DVT ppx. BP control. C/s PT, palliative care. (3) Temporal lobe seizure: Status: Acute Assessment and plan: continue keppra as above. per Dr. Dow, current EEG has shown suppression of any epileptogenic activity (4) Frequent falls: Status: Acute Assessment and plan: mutlifactorial including his baseline dementia, multiple CVA from hemorrhages. continue P.T. Rubi, his interstate bus dispatcher, does not want him to go to SNF since he has this pancreatic mass. She wants to take him home. He would be eligible for hospice care given his new diagnosis. (5) Hypertension: Status: Chronic Assessment and plan: dc lisinopril, trial of amlodipine 5 mg nightly. (6) Failure to thrive in adult: Status: Acute Assessment and plan: Multifactorial, due to a recent cerebral hemorrhage, early dementia, possible effect of medications. Patient to return home w/ either home health or hospice services. (7) Back pain: Status: Acute Assessment and plan: prn tylenol. CT of LS and T spine were obtained from reconstruction of his CT of his abdomen and chest. They show chronic wedge compression fracture of T5 and DJD of L4/L5, and L5/S1 (8) Early onset Alzheimer's dementia: Status: Acute Assessment and plan: Continue donepezil/memantine. (9) DVT prophylaxis: Status: Acute Assessment and plan: Written for TEDs. AVoid chemical DVT ppx in light of recent cerebral hemorrhage. (10) Discharge planning issues: Status: Acute Assessment and plan: dc home w/ home health or hospice if patient and Rubi elect hospice care. Subjective Subjective Interval history since last seen: Patient had more agitation last night and the digital forensic analyst gave the patient a dditonal dose of Depakote 125 mg last night (total of 250 mg). I have increased his nightly dose to 250 mg. 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 I went over this with the patient and his interstate bus dispatcher. She understands that this has a grave prognosis even w/ treatment. She would like me to make referral to [facility] to get an opinion on treatment. I told her that I will send the images but likely GI will see him as outpatient for endoscopic US biopsy and then referral to oncology. I asked the patient if he had any abdominal pain (note he has not complained of any pain throughout the day) and he indicated a little. Exam Narrative Exam Narrative: Patient was calm and cooperative when I entered the room. At first he did not understand that I and his interstate bus dispatcher were referring to him but once he realized that I was talking about him being the one w/ a cancer, he became depressed. Abdomen: nondistended, when I distract him and ausculatate his abdomen, he does not seem to exhibit any pain even w/ deep palpation and w/ rebound there is no tenderness Objective Last Vital Signs Temp 36.5 C 12/21/22 14:58 Pulse 76 12/21/22 14:58 Resp 16 12/21/22 14:58 BP 102/65 12/21/22 14:58 Pulse Ox 95 12/21/22 14:58 Laboratory Results - last 24 hr 12/19/22 06:30 CA 19-9 Antigen 648 H Time Spent with Patient Time Spent with Patient: 25-34 minutes Time was spent: preparing to see the patient(eg.review tests), ordering medications,tests, procedures, referring, communicating with other health child care associate teacher, indepentently interpreting results, counseling the patient and care coordination
--- NOTE | 2022-12-21 15:49 | PTTR_ITS ---
Date of service: 12/21/22 Time of Service: 13:55 PT Notes Visit Reasons: Orthostatic hypotension, falling Inpatient Physical Therapy Treatment Note [facility] Date: 12/21/2022 PRECAUTIONS: Fall. Standard. Activity as tolerated. SUBJECTIVE: Pat states that patient returned from MRI mildly sedated ad fatigued. Patient however was able to wake up when requested to and followed singe-step commands. Patient complained about right shoulder and B knees discomfort at onset of session. stated that patient has not been moving so has been more stiff. added that his patient was able to bounce back well from his first two strokes but this third stroke seems to have thrown him quite far. She adds that he has been independent with all mobility ADLs until this last stroke on November 30, 2022. She adds that before the last stroke, patient has been having some issues with tremors in his hands. OBJECTIVE: General observation: Eyes closed seating on bedside recliner. by his side. Movement execution delayed/impaired. PAIN: reported discomfort in right shoulder and B knees as he tried to stand up from chair. VITALS: Closely monitored by nursing staff NEURO RE-ED: Facilitated re-education of movement balance, posture, coordination, and proprioception or kinesthetic sense, requiring skilled tactile and verbal cues for the following functional activities: ? TRANSFERS:? Sit-stand: minimal assist with maximal verbal, visual, and tactile?cueing provided to initiate and complete movement (hands on arm rests, feet shoulder width apart, trunk forward, push up) Stand-sit: minimal assist with maximal verbal, visual, and tactile?cueing pro vided to initiate and complete movement?(reach behind, bend at knees, slow descent onto chair) ? Chair-bed: minimal assist with maximal verbal, visual, and tactile?cueing provided to initiate and complete movement?(turn slow, stay within walker, side step, reach behind, slow descent) ? GAIT: [] employing an assistive device [] modified weight-bearing status [X] movement sequencing [X] turning and movement with proper form (stay close to walker) [X] Provided verbal cues for equipment management and technique [X] Provided instruction in gait pattern (tall and big steps) [] Patient education regarding pacing and breathing techniques to maximize activity tolerance? GAIT? Assistive Device: FWW? Weight bearing: FWB Assist: Minimal assist ? Distance:? 20 feet + 20 feet + 20 feet + 30 feet ? Deviation: Excessive trunk flexion. Impaired depth perception limiting forward propulsion as patient thinks he is falling forward. Steps shuffling and hesitant. ? STAIRS: Deferred. Not safe at this time ? ASSESSMENT:? Symptoms of basal ganglia affectation/parkinsonism apparent-- shuffling gait, parkinsonian posture, freezing episodes, bradykinesia, impaired initiation/execution/completion of movement noted. Weakness in B UE and LE symmetric. Requires maximal cueing for safety of mobility ADL performance. Task focus limited but patient is redirectable. PLAN: PT 2x/day for 2 weeks for neurorehabilutation to address strength, balance, perceptual, and functional mobility impairments/deficits. D/C RECOMMENDATIONS: Patient will benefit from alf facility placement for continued skilled physical therapy services in order to progress mobility level, strength, and balance in preparation for a safe discharge to home. TREATMENT CODE/TIME: 02464 x 55 minutes for 4 units beginning at 13:55 PM.
--- NOTE | 2022-12-21 16:11 | W.PM.PROGNOT ---
Date of Service Date of service: 12/21/22 Time of Service: 16:11 Assessment and Plan Assessment and plan (1) Recurrent cerebrovascular accidents (CVAs): Status: Acute (2) Dementia with behavioral disturbance: Status: Acute (3) Vascular dementia: Status: Acute (4) Temporal lobe seizure: Status: Acute (5) Frequent falls: Status: Acute (6) Orthostatic hypotension: Status: Acute Assessment and plan: Mr. Mckeon presents with AMS, dizziness, and falls found to have orthostatic hypotension. His AMS has improved. Unclear if he is still experiencing OH symptoms, though tilt negative 12/18/22 and 12/20/22 - improved due to hydration? cessation of Depakote? Unfortunately, not able to reliably relay symptoms, so has been started on pyridostigmine which is just fine though not clear that he definitely needs it. He has the unfortunate finding of a pancreatic mass and given dementia and strokes, not clear how much testing/treatment he and his partner will want. Continue LEV 1000mg BID for seizure prevention. I will see him tomorrow if he is still inpatient, otherwise, will plan to see him as an outpatient. Subjective Subjective Interval history since last seen: Patient sleeping during my visit. And Dinh not at bedside so I did not wake him. Unfortunately, MR abdomen this am confirms pancreatic mass. In speaking with hospital team, it sounds like Dinh is going to take him home and may consider outpatient work-up vs hospice. Otherwise, he isn't able to tell anyone if he is dizzy or not. Orthostatic vitals negative this am: Supine 115/78 pulse 78, Sitting 105/80 pulse 85, and standing 105/71 pulse 89. Started on pyridostigmine 30mg BID this afternoon anyhow. Unclear effect. Lisinopril was switched for amlodipine HS. Exam Narrative Exam Narrative: No exam as he is sleeping. Objective Last Vital Signs Temp 97.7 F 12/21/22 14:58 Pulse 76 12/21/22 14:58 Resp 16 12/21/22 14:58 BP 102/65 12/21/22 14:58 Pulse Ox 95 12/21/22 14:58 Laboratory Results - last 24 hr 12/19/22 06:30 CA 19-9 Antigen 648 H Time Spent with Patient Time Spent with Patient: 25-34 minutes Time was spent: preparing to see the patient(eg.review tests) and referring, communicating with other health care program director
[2022-12-21] MEDS: Lidocaine 5% Patch 1 PATCH TP (17:42)
[2022-12-21] MEDS: oxyCODONE 5 MG TAB PO (19:16)
[2022-12-21] MEDS: Divalproex 125 MG SPRINKLE 250 MG PO (19:19)
[2022-12-21] MEDS: Insulin Aspart 300 UNITS/3 ML PEN SC (21:18)
[2022-12-21] MEDS: buPROPion-CR 150 MG TABCR PO (21:18)
[2022-12-21] MEDS: Atorvastatin 10 MG TAB PO (21:18)
[2022-12-21 21:36] VITALS: BP 111/74; PULSE 81; RESP 20; TEMP 36.3; O2SAT 95
[2022-12-22 05:17] VITALS: BP 114/72; PULSE 75; RESP 18; TEMP 36.8; O2SAT 95
[2022-12-22] MEDS: Metoprolol CR 50 MG TABCR PO (07:49)
[2022-12-22] MEDS: buPROPion 100 MG TAB PO (07:49)
[2022-12-22] MEDS: levETIRAcetam 250 MG TAB 1000 MG PO ×2 (07:49→20:14)
[2022-12-22] MEDS: Donepezil 5 MG TAB 10 MG PO ×2 (07:49→20:15)
[2022-12-22] MEDS: Acetaminophen 325 MG TAB 650 MG PO ×2 (07:50→21:36)
[2022-12-22] MEDS: oxyCODONE 5 MG TAB PO ×2 (07:51→17:35)
[2022-12-22 08:00] VITALS: BP 133/91; PULSE 89; RESP 18; TEMP 36.3; O2SAT 100
--- NOTE | 2022-12-22 08:06 | OTTR_ITS ---
Occupational Therapy Notes Occupational Therapy Inpatient Treatment Note Date: 12/22/22 PRECAUTIONS: Fall, standard, full SUBJECTIVE: Pt was sitting in bed when OT arrived. He reports that he is doing well and thinks that he will be going home tomorrow. He notes that he would like to have his hair washed. OBJECTIVE: PAIN:no c/o pain BATHING: seated in bed Upper Body: Max (A) hair, (I) face pt denies all other bathing Lower Body: NT (I) with brushing his own hair with his (L) UE with ideal technique. (I) with cup to mouth but requires (A) With medication management. Functional grasp with (B) hands on cup. ASSESSMENT/PLAN: If given the verbal option if pt would like to perform ADLs pt will refuse. Although he is receptive if stated that I was there to help him perform his ADLs. He has difficulty with task initiation but with (A) he is able to perform (I). His demeanor was much better today and he was more receptive to performance of tasks. Per assessment pt will require vc for task initiation, task execution and task management. TREATMENT CODES/TIME: 90739, 15 minutes Madeline Garcia OTR/L [facility] [place], [place]
--- NOTE | 2022-12-22 14:13 | PT.INNT ---
PT Notes Visit Reasons: Orthostatic hypotension, falling Pt in bed sleeping, iformed nurse about trying to engage pt prior to arousing pt, Nurse reports that pt has been sleeping most of the day and ok'd waking pt up, pt refused to participate with therapy after getting woken up reporting he is ok and that he still has a lot of things to address.
[2022-12-22 15:10] VITALS: BP 109/71; PULSE 75; RESP 18; TEMP 36.2; O2SAT 94
--- NOTE | 2022-12-22 16:00 | W.PALLCONSUL ---
Date of service: 12/22/22 Time of Service: 16:00 History of Present Illness Narrative: Dario mayers this is 57-year-old gentleman from [facility] with history of cerebral amyloid angiopathy, recent hemorrhagic stroke resulting from this, dementia and newly diagnosed 6 cm pancreatic mass. See my previous palliative care note. I met with Krista and partner Rubi Emerson today for prescheduled family meeting. When I met with Rubi Candelaria 2 days ago, she wanted to meet again with her grandson present to go over goals of care and discuss CODE STATUS. Unfortunately, her grandson was unable to make it to the appointment. Also new information with definite pancreatic mass almost certainly a cancer with CA 19?9 of 800. Since I met with them 2 days ago, Rubi Candelaria has discussed findings with hospitalist physician. Rubi Candelaria felt that she needed to know definitive diagnosis. EGD with EUS was scheduled to be done today at [facility] via a down and back transport , but had to be canceled because of emergencies at [facility]. At this point Rubi Candelaria decided that it was time to take Krista home with home health support and schedule EGD/EUS as an outpatient. I met in the room with Rubi Candelaria. Krista was much more awake today but unable to participate in conversation. He seemed kind of restless, holding his stomach on and off. I invited Rubi to have her grandson attend via speaker phone, but she declined. We discussed recent diagnoses including the third hemorrhagic stroke due to CAA, the pancreatic mass which almost definitely recommend presents a pancreatic cancer, progression of krista's dementia and general deterioration in his functional status over the last 6 weeks mostly as result of the stroke. Rubi Candelaria is very sad over what is happened. She does not think that Dario would be able to withstand chemotherapy. She is very frustrated that he has been having this abdominal pain for a year and no imaging was done. We discussed the risks and benefits of EGD/EUS. Explored why she felt she needed a definitive diagnosis even though she did not think Krista would be able to withstand chemotherapy and that for sure it would not improve his quality of life. We reviewed what is important to Dario (being at home, being with his dogs, being with family and friends). Rubi is also hoping to have better symptom control; the pain has been problematic. We discussed the option of hospice. hospice program described. Discussed alternative of regular home health initially if she needed additional time to think about this. Discussed option of revoking hospice at any time. Assessment and Plan Assessment and plan (1) Palliative care encounter: Status: Acute Assessment and plan: Rubi Candelaria has only had a few days to think about new finding of pancreatic cancer. Primary goal is to get Krista home to their house and with her pets. After discussion, she feels that hospice admission would most closely align with their goals. She also feels that she needs the extra support that hospice would give her. Patient qualifies for hospice given multiple comorbidities including large 6 cm pancreatic mass and multiple hemorrhagic strokes due to CAA in addition to dementia. I believe his prognosis is less than 6 months. -Her granddaughter is planning to leave her current job and help Rubi Candelaria take care of Dario. -Phone call tonight with both Dr. Rubi Mckeon and nurse Yenny at [facility] health and hospice. History shared. Dr. Silva feels they will be able to do same-day admission tomorrow. Not sure if they will meet with patient and family in the hospital, more likely will go to the home later in the day. -Case management and hospitalist aware as well. -No other changes in medication will be recommended at this time. Deprescribing can be done by hospice after admission. Additionally reviewed CODE STATUS. Rubi Candelaria unequivocally feels that DNR/DNI is most appropriate given current situation. COLST form is filled out and CODE STATUS is changed in the chart. (2) Advanced care planning/counseling discussion: Status: Acute (3) Cerebral amyloid angiopathy: Status: Acute Assessment and plan: Patient was noted to have temporal seizure activity at [facility] after last hemorrhagic stroke 4 weeks ago. Unfortunately he became quite sedated, unstable and orthostatic on high doses of Depakote. He has been switched back to his low-dose of bedtime Depakote and started on Keppra for seizure control. Repeat EEG now shows no seizure activity(note that patient never exhibited any overt seizure activity). Family and staff both report that he is much more awake and less sedated on the Keppra. Additionally, bupropion has been stopped (4) Pancreatic cancer: Status: Acute Assessment and plan: Patient symptom currently is pain. Luckily he is less sedated with switched and seizure medicine to Keppra. Unfortunately now he is experiencing more pain. He has been receiving oxycodone 5 mg twice daily. Recommend the following: Acetaminophen 1 g every [address] Mckeon recommends that patient be started on fentanyl patch 12 mcg; Dr. Edwards requests that I put an order tonight and I will do so. Patient can receive oxycodone 2.5 mg every 4 hours as needed for breakthrough pain (moderate to severe). (5) Dementia with behavioral disturbance: Status: Acute (6) Debilitated patient: Status: Acute [facility] All Active Problems (Updated 12/22/22 @ 17:43 by Rosalva Russell MD) Debilitated patient (Acute) Pancreatic cancer (Acute) Advanced care planning/counseling discussion (Acute) Caregiver stress (Acute) Recurrent cerebrovascular accidents (CVAs) (Acute) Dementia with behavioral disturbance (Acute) Vascular dementia (Acute) Palliative care encounter (Acute) Abnormal abdominal CT scan (Acute) Temporal lobe seizure (Acute) Early onset Alzheimer's dementia (Acute) Discharge planning issues (Acute) DVT prophylaxis (Acute) Failure to thrive in adult (Acute) Frequent falls (Acute) Generalized weakness (Acute) Dizziness (Acute) Orthostatic hypotension (Acute) Intracranial hemorrhage (Chronic) Muscular deconditioning (Acute) Hypertension (Chronic) COVID-19 (Acute) UTI (urinary tract infection) (Acute) Generalized weakness (Acute) Chronic diarrhea (Chronic) Mild cognitive impairment (Chronic) Diabetes (Chronic) COVID-19 (Acute) 11/24/21 Vaccinated, boosted Umbilical hernia (Acute) Back pain (Acute) Diarrhea (Acute) Urinary frequency (Acute) Tachycardia (Chronic) MARTA (obstructive sleep apnea) (Chronic) Does not use CPAP Hyperlipidemia (Acute) Arthritis (Acute) Knees, lower back, shoulders Acute CVA (cerebrovascular accident) (Acute) 2018 and 2019 Chronic low back pain (Acute) Lumbar facet arthropathy (Acute) Lumbar spondylosis (Acute) without myelopathy or radiculopathy 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 Heart disease (Acute) Cerebral amyloid angiopathy (Acute) Generalized tonic-clonic seizure (Acute) Only 1 seizure ever after first CVA Diabetic peripheral neuropathy (Acute) Very mild Medical History Bilateral inguinal hernia 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 Status post appendectomy At age 13 Family History Mother Heart disease Dementia Father Heart disease Alzheimer disease Brother Alcohol use disorder Depression Heart disease Grandfather Heart disease Grandfather Personal history of malignant neoplasm LUNG Grandmother Essential hypertension Heart disease Grandmother Diabetes Essential hypertension Personal history of malignant neoplasm COLON Heart disease Social History Smoking/Tobacco Use Status: Former Tobacco Use tobacco type: cigarettes Quit Date: 04/17/88 Second Hand Exposure: Yes Smoking risk assessment performed?: Yes Alcohol Intake: current Alcohol Intake frequency: a few times a month Alcohol type: beer Drug use: Never Substance use type: does not use Caregiver/Support person: Yes Household members: significant other, friend(s) and caregiver Housing: house Do you need help understanding health information?: Often Pets and animals: Yes Pets and animals: cat(s) and dog(s) Sexually active: No Do you think of yourself as: straight/heterosexual Current gender identity: male What is your relationship status?: living with partner How often do you talk on the phone with friends or family?: three or more times per week How often do you get together with friends or relatives?: once per week How often do you attend sabianism or sabianism services?: decline to answer Do you belong to any clubs or organized social groups?: no Panel score (0-1 are the most socially isolated patients): 2 What type of physical activity do you participate in: none Frequency: does not exercise Yaima/Spiritism: No preference Special yaima needs: No Seatbelt use: always Drive intox or ride w/intox canal driver: No Do you feel safe at home: Yes Do you feel safe in your relationship?: Yes Exam Narrative Exam Narrative: Krista was awake throughout my entire 45-minute meeting with Rubi Candelaria today. He was restless occasionally prepped his stomach. Did not engage in conversation. Could not tell me where he was. Results Last Vital Signs Temp 36.2 C L 12/22/22 15:10 Pulse 75 12/22/22 15:10 Resp 18 12/22/22 15:10 BP 109/71 12/22/22 15:10 Pulse Ox 94 12/22/22 15:10 Labs 12/19/22 06:30 12/19/22 06:30
--- NOTE | 2022-12-22 16:36 | W.PM.PROGNOT ---
Date of Service Date of service: 12/22/22 Time of Service: 16:37 Assessment and Plan Assessment and plan (1) Recurrent cerebrovascular accidents (CVAs): Status: Acute (2) Dementia with behavioral disturbance: Status: Acute (3) Vascular dementia: Status: Acute (4) Temporal lobe seizure: Status: Acute (5) Frequent falls: Status: Acute (6) Orthostatic hypotension: Status: Acute Assessment and plan: Not seen today. Continue plan as yesterday pending palliative care recommendations. Please let our office know if he will pursue outpatient neurology follow-up so that we can schedule that. Subjective Subjective Interval history since last seen: Currently being evaluated by Palliative Care Team so I did not see him today. Objective Last Vital Signs Temp 97.2 F L 12/22/22 15:10 Pulse 75 12/22/22 15:10 Resp 18 12/22/22 15:10 BP 109/71 12/22/22 15:10 Pulse Ox 94 12/22/22 15:10 Time Spent with Patient Time Spent with Patient: <25 minutes Time was spent: preparing to see the patient(eg.review tests)
--- NOTE | 2022-12-22 17:05 | CMPROGNOTE_ITS ---
Date of service: 12/22/22 Time of Service: 17:05 Care Management Progress Note Progress Note Text Progress Note Text: S/O: Wilfred was lying in bed when CM met with him and his retail sales teammate, Teagan. Teagan reported that she is no longer interested in Wilfred going to short term rehab, as she would like to take him home. She expressed concern about the pancreatic mass that was seen on the MRI, and is hoping to have more clarification from MD about the prognosis. Teagan stated that she will need additional equipment in the home in order for him to be safe, including a hospital bed, a wheelchair, and a bedside commode. She stated that the commode is the most important at this time, as he was falling when trying to go to the bathroom at night. Per PT, he needs minimal assistance in and out of bed, but he needs consistent cuing, and agreed that the commode is most important at this time. NORMA sent an order to [facility], who had a commode in stock, at the request of the pt, and they were able to pick it up from [facility] today, after the order was approved. Later, Wilfred and Teagan met with Dr. Russell, Palliative care, who discussed their options further. They decided to return home tomorrow, with a scheduled admission to hospice. CM will contact hospice to arrange the admission and equipment delivery. CM will continue to follow. A: Dario is a 67 year old male admitted to [facility] on 12/17/22 for orthostatic hypotension, falling. P: Dario will return home with a planned admission to hospice at home. CM will coordinate the hospice admission, as well as equipment delivery. Transportation will be determined by mobility at the time of discharge. He will follow up with his PCP and discharge plan of care. CM will continue to follow.
[2022-12-22] MEDS: Lidocaine 5% Patch 1 PATCH TP (17:19)
--- NOTE | 2022-12-22 17:53 | W.PM.PROGNOT ---
Date of Service Date of service: 12/22/22 Time of Service: 17:53 Assessment and Plan Assessment and plan (1) Pancreatic cancer: Status: Acute Assessment and plan: patient and his partner have chosen not to pursue EGD w/ endoscopic US biopsy of his pancreatic mass. Dr. Russell is adjusting his pain medication to control his back pains and his abdominal discomort. She is starting him on fentanyl 12 mcg w/ prn oxycodone. She is stopping the Wellbutrin although his temporal lobe seizures has come under control w/ Keppra. (2) Dementia with behavioral disturbance: Status: Acute Assessment and plan: continue Depakote 250 mg nightly, donepezil 10 mg bid and Namenda 28 mg daily. If need be we can add Celexa. (3) Temporal lobe seizure: Status: Resolved Assessment and plan: secondary to recent temporal lobe ICH; controlled now w/ Keppra 1000 mg bid (4) Orthostatic hypotension: Status: Acute Assessment and plan: improved. I have added pyridostigmine and stopped his lisinopril and changed his antihypertensive to amlodipine 5 mg at HS (5) Discharge planning issues: Status: Acute Assessment and plan: dc home in the a.m. on hospice care Subjective Subjective Interval history since last seen: Dario and Rubi (Pat) met w/ Dr. Russell from Palliative Care and they have decided to opt for hospice rather than pursuing an endoscopic US guided bx of his pancreatic mass. They want to return home and spend what time he has left. She asked about a time frame for prognosis and I told her maybe 6 months but probably less. Exam Narrative Exam Narrative: Wilfred is lying in bed holding Rubi's hand. The lens grinding machine operator entered the room to speak with them. Wilfred is alert but is somber, per Rubi the news of his disease and his prognosis is finally sinking in. he answers me directly when I ask him if he understands his condition and he agrees w/ Rubi to opt for hospice. Objective Last Vital Signs Temp 36.2 C L 12/22/22 15:10 Pulse 75 12/22/22 15:10 Resp 18 12/22/22 15:10 BP 109/71 12/22/22 15:10 Pulse Ox 94 12/22/22 15:10 Time Spent with Patient Time Spent with Patient: 25-34 minutes Time was spent: preparing to see the patient(eg.review tests), ordering medications,tests, procedures, referring, communicating with other health care coordinator (Dr. Russell), indepentently interpreting results, counseling the patient and care coordination
--- NOTE | 2022-12-22 17:58 | CHAPLAIN ---
Wilfred was resting in bed, nodding off occasionally while I was visiting with Pat this evening. Wilfred had a series of strokes over the past three years, leading to some dementia and then received a diagnosis of pancreatic cancer today following a scan (although he's been complaining of stomach pains for a year, according to Pat). This new diagnosis is overwhelming, Pat said. She's been prepared to take care of Wilfred through his dementia, but the cancer diagnosis is just like one more thing, and how much do we have to deal with? We can't get a break. Pat has decided not to biopsy the pancreatic mass and not pursue chemo treatments. She said it was a difficult decision to make alone, but she is hoping for some good days left with Wilfred and that he can be free of pain while still able to engage with her. Teagan shared that she mom and a nephew recently from cancer and she's been dealing with those deaths. She talked about what she might have done to have this happen and we talked about how life just happens sometimes, that good and that bad, and it's not a payback from God when bad things happen. Pat said she can understand that, but a lot goes through your mind. 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 After he retired, they moved to [place] and lived there until Wilfred had his strokes and they decided to move back home closer to family. A granddaughter has offered to quit her job to help Pat care for Wilfred at home. Wilfred has three dogs at home, who like to lie in the bed with him. Wilfred likes to watch [facility] with Pat every day. They used to ride motorcycles and still like to drive around looking for moose. Wilfred will be discharged tomorrow and admitted to hospice when he goes home. I let Pat know that she'll have access to Rosie Sauceda, the [facility] [employer] special education teacher. I will try to visit tomorrow morning before Wilfred is discharged.
[2022-12-22 19:54] VITALS: BP 103/72; BP 107/73; BP 95/70; PULSE 55; PULSE 84; RESP 18; TEMP 36.8; O2SAT 98
[2022-12-22] MEDS: fentaNYL 12 MCG PATCH TD (20:05)
[2022-12-22] MEDS: Divalproex 125 MG SPRINKLE 250 MG PO (20:13)
[2022-12-22] MEDS: amLODIPine 5 MG TAB PO (21:37)
[2022-12-22] MEDS: Atorvastatin 10 MG TAB PO (21:37)
[2022-12-22 22:51] VITALS: BP 103/71; PULSE 75; RESP 16; TEMP 36.3; O2SAT 97
[2022-12-23] MEDS: Acetaminophen 325 MG TAB 650 MG PO (05:20)
[2022-12-23] MEDS: Cyclobenzaprine 10 MG TAB PO (05:20)
[2022-12-23] MEDS: Lidocaine Patch Removal 1 EACH TP (06:13)
[2022-12-23 07:41] VITALS: BP 94/66; PULSE 74; RESP 18; TEMP 36.1; O2SAT 95
[2022-12-23] MEDS: levETIRAcetam 250 MG TAB 1000 MG PO (07:59)
[2022-12-23] MEDS: Donepezil 5 MG TAB 10 MG PO (07:59)
--- NOTE | 2022-12-23 10:49 | W.PM.DS.N ---
Date of service: 12/23/22 Time of Service: 10:49 DS: Diagnosis Discharge Diagnosis (1) Pancreatic cancer: Status: Acute Asessment and Plan: As part of the patient's work-up on admission for his orthostatic hypotension he underwent CT scan chest abdomen pelvis. He also had a CT scan of his head. CT of the chest showed no acute pulmonary process CT of the abdomen pelvis demonstrated 1.8 x 1.3 cm area of decreased attenuation in the middle of the pancreas ill-defined soft tissue density at the junction of the head of the pancreas appear to be encapsulated portion of the splenic vein. This was suspicious for pancreatic mass. Patient subsequently underwent MRI scan of the abdomen which demonstrated infiltrative mass within adjacent to involving a portion of the pancreas causing obstruction of splenic vein as well as obstruction of the pancreatic duct. Referral was made to [facility] and I spoke w/ Pavan Rebolledo, GI fellow, who was willing to set up outpatient referral for endoscopic US guided pancreatic biopsy. Initially he tried to set this up as a down and back transfer procedure but their schedule was too full to accomodate this while the patient was an inpatient at [facility]. In the interim, Palliative consult was obtained w/ Rosalva Russell M.D. who had multiple discussion w/ Dario and Rubi and as of 12/22, they had decided to go on hospice, however after thinking about this ovenright they want a definitive diagnosis before electing hospice care. I spoke w/ Dr. Rebolledo and conveyed their desire to proceed as an outpatient and he indicated that he would set this up in the next [address] Russell adjusted his pain medications and started Dario on fentanyl patch and discontinued his Wellbutrin, given the potential for lower seizure threshold. Patient will have resumption of home health services upon discharge pending his pancreatic bx. Once the diagnosis of panceatic cancer is confirmed, then they may opt for hospice (2) Dementia with behavioral disturbance: Status: Acute Asessment and Plan: depakote was decreased from 750 mg bid to 250 mg nightly. Neurology at [facility] had increased his Depakote which was 125 mg nightly up to 750 mg bid to try to control his temporal lobe seizures. Keppra has been added for seizure control. he had been taking only depakote 125 mg nightly as he was not tolerating the 250 mg his prior neurologist prescribed, however he needed extra dose while here d/t behaviorial outbursts. Note when he was on depakote 750 mg bid he presented w/ severe orthostasis and confusion and his valproic acid level was high at 94 (3) Temporal lobe seizure: Status: Resolved Asessment and Plan: Neurology consult was obtained w/ Dr. Dow and patient was placed on Keppra 1000 mg bid and follow up EEG demonstrated lack of any temporal lobe seizure activity. (4) Orthostatic hypotension: Status: Acute Asessment and Plan: patient's lisinopril was stopped, he was tried on low dose amlodipne at night but this also caused hyptension and was stopped. He was put on pyridotigmine 30 mg bid for orhtostasis and he was fitted w/ TEDhose (5) Discharge planning issues: Status: Acute Asessment and Plan: patient will be dc home to care of his signifiant other, Rubi Emerson and home health services to include nursing, P.T., O.T. and M.S.W. willl be resumed. [facility] will call in the next few days to set up follow up outpatient EGD w/ endoscopic US guided pancreatic biopsy Discharge Plan Disposition Patient Disposition: Home W/Home Health Services Condition: Stable Discharge Details Reason For Visit: Orthostatic hypotension, falling Admit Date/Time: 12/17/22 20:25 Admit Provider: Sade Acevedo Attending Provider: Sade Acevedo Primary Care Provider: Maynor Hunt Home Meds and New Rx's Prescriptions: New divalproex 125 mg Capsule, Delayed Rel Sprinkle 250 mg PO QPM Qty: 30 0RF fentanyl 12 mcg/hr Patch 72 Hour 12 mcg transdermal Q72H Qty: 5 0RF levetiracetam 250 mg Tablet 1,000 mg PO BID Qty: 60 0RF lidocaine 5 % Adhesive Patch,Medicated 1 patch topical Q24H Qty: 30 0RF oxycodone 5 mg Tablet 2.5 mg PO Q4H PRN PRNQty: 30 0RF pyridostigmine bromide [Mestinon] 60 mg Tablet 30 mg PO BID Qty: 60 0RF naloxone [Narcan] 4 mg/actuation spray,non-aerosol 4 mg intranasal Q3M PRNQty: 2 0RF Rx Instructions: spray 1 dose into ONE nostril; alternate nostrils w each dose until help arrives Continued cyclobenzaprine 10 mg tablet 10 mg PO BID PRN (Reason: muscle spasm) Qty: 90 0RF ipratropium bromide 21 mcg (0.03 %) spray,non-aerosol 2 spray intranasal TID Qty: 30 3RF Rx Instructions: administer into each nostril atorvastatin 10 mg tablet 10 mg PO HS Qty: 90 3RF memantine 28 mg capsule,sprinkle,ER 24hr 28 mg PO DAILY donepezil 10 mg tablet 10 mg PO BID Qty: 180 3RF flecainide 100 mg tablet 100 mg PO BID Qty: 180 3RF metformin 500 mg tablet extended release 24 hr 500 mg PO DAILY Qty: 180 3RF metoprolol succinate 50 mg tablet extended release 24 hr 50 mg PO DAILY Qty: 90 3RF trazodone 50 mg tablet 50 mg PO QHS PRN (Reason: sleep) Qty: 60 0RF morphine concentrate 100 mg/5 mL (20 mg/mL) solution See Rx Instructions PO Q1H PRN MDD 120 mg Qty: 30 0RF Rx Instructions: 0.25-1.0 ml orally every 1 hour, as needed; HOSPICE lorazepam 1 mg tablet 1 mg PO Q4H PRN (Reason: anxiety) Qty: 10 5RF Rx Instructions: hospice Discontinued lisinopril 10 mg tablet 10 mg PO DAILY Qty: 90 3RF divalproex 250 mg tablet extended release 24 hr 750 mg PO BID oxycodone 5 mg tablet 5 mg PO BID MDD 10mg PRN (Reason: pain) Qty: 20 0RF Discharge Instructions Instructions: Fentanyl (Absorbed through the skin), Levetiracetam (By mouth), Oxycodone, Slow Release (By mouth), Naloxone (Into the nose), Hypotension (DC), Seizures After Traumatic Brain Injury (DC) Stand Alone Forms: Nursing Discharge Form Referrals: Bishop Mendoza [ NON-[facility] STAFF PHYSICIAN] - (GI [facility] will call you to set up your outpatient endoscopic ultrasound guided biopsy) Maynor Hunt NP [Primary Care Provider] - 12/27/22 8:40 am (Please call if you are unable to make it at this time of day. ) Activity:: Activity as Tolerated Equipment/Supplies:: No Equipment Needed Diet:: Normal Diet Discharge Orders Discharge Orders: Discharge Order (Routine); Ordered 12/23/22 Ordered By: Seymour Edwards DS: Summary Time Spent with Patient providing and/or coordinating discharge services: Greater than 30 minutes Specific discharge activities: Interview/exam of patient; review of discharge instructions, completion of prescriptions/discharge instructions; discussion w/ nursing and CM; documentation of hospital visit Status at Discharge Functional status at discharge: uses cane/walker Overall status at discharge: patient is progressing back to baseline Mental Status: mental status grossly normal and other (Depressed mood) Speech and Movement: speech and movement normal Mood: other (Depressed mood) Affect: sad Exam Narrative Exam Narrative: Wilfred is more tired this morning which I am sure is d/t the new Rx for fentanyl, however he is awake and interacts, pain seems to be controlled Lungs: clear Heart: RRR Abdomen: soft, nondistended, no tenderness w/ palpation Psych Mental Status: mental status grossly normal and other (Depressed mood) Speech and Movement: speech and movement normal Mood: other (Depressed mood) Affect: sad DS: Data Vitals/I&O Vitals and I&O: Vital Signs Temperature 36.1 C L 12/23/22 07:41 Temperature Source Tympanic 12/23/22 07:41 Pulse 74 12/23/22 07:41 Pulse Rhythm Irregular 12/23/22 08:05 Respiratory Rate 18 12/23/22 07:41 Respiratory Effort Normal 12/23/22 08:05 Respiratory Depth Normal 12/23/22 08:05 Respiratory Pattern Normal 12/23/22 08:05 Blood Pressure 94/66 L 12/23/22 07:41 Blood Pressure Mean 90 12/18/22 08:34 Blood Pressure Position Sitting 12/17/22 16:40 Pulse Oximetry 95 12/23/22 07:41 Oxygen Delivery Method Room Air 12/23/22 07:41 Oxygen Flow Rate 0 12/23/22 07:41 Pain Level 0 12/23/22 07:41 Comment bp called over radio 12/23/22 07:41 Intake & Output 12/22/22 12/22/22 12/23/22 11:59 23:59 11:59 Output Total 150 / 150 300 / 300 Balance -150 / -150 -300 / -300 Output: Urine 150 / 150 300 / 300 Other: Urine Color Yellow Dark Ashli Urine Appearance Clear Clear Clear Comment pt returned from bedside commode then needed to urinate. Voiding Methods Diaper Diaper Incontinent Incontinent [facility] All Active Problems Debilitated patient (Acute) Pancreatic cancer (Acute) Advanced care planning/counseling discussion (Acute) Caregiver stress (Acute) Recurrent cerebrovascular accidents (CVAs) (Acute) Dementia with behavioral disturbance (Acute) Vascular dementia (Acute) Palliative care encounter (Acute) Abnormal abdominal CT scan (Acute) Early onset Alzheimer's dementia (Acute) Discharge planning issues (Acute) DVT prophylaxis (Acute) Failure to thrive in adult (Acute) Frequent falls (Acute) Generalized weakness (Acute) Dizziness (Acute) Orthostatic hypotension (Acute) Intracranial hemorrhage (Chronic) Muscular deconditioning (Acute) Hypertension (Chronic) COVID-19 (Acute) UTI (urinary tract infection) (Acute) Generalized weakness (Acute) Chronic diarrhea (Chronic) Mild cognitive impairment (Chronic) Diabetes (Chronic) COVID-19 (Acute) 11/24/21 Vaccinated, boosted Umbilical hernia (Acute) Back pain (Acute) Diarrhea (Acute) Urinary frequency (Acute) Tachycardia (Chronic) MARTA (obstructive sleep apnea) (Chronic) Does not use CPAP Hyperlipidemia (Acute) Arthritis (Acute) Knees, lower back, shoulders Acute CVA (cerebrovascular accident) (Acute) 2018 and 2019 Chronic low back pain (Acute) Lumbar facet arthropathy (Acute) Lumbar spondylosis (Acute) without myelopathy or radiculopathy 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 Heart disease (Acute) Cerebral amyloid angiopathy (Acute) Generalized tonic-clonic seizure (Acute) Only 1 seizure ever after first CVA Diabetic peripheral neuropathy (Acute) Very mild Medical History Bilateral inguinal hernia 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 Status post appendectomy At age 13 Family History Mother Heart disease Dementia Father Heart disease Alzheimer disease Brother Alcohol use disorder Depression Heart disease Grandfather Heart disease Grandfather Personal history of malignant neoplasm LUNG Grandmother Essential hypertension Heart disease Grandmother Diabetes Essential hypertension Personal history of malignant neoplasm COLON Heart disease Social History Smoking/Tobacco Use Status: Former Tobacco Use tobacco type: cigarettes Quit Date: 04/17/88 Second Hand Exposure: Yes Smoking risk assessment performed?: Yes Alcohol Intake: current Alcohol Intake frequency: a few times a month Alcohol type: beer Drug use: Never Substance use type: does not use Caregiver/Support person: Yes Household members: significant other, friend(s) and caregiver Housing: house Do you need help understanding health information?: Often Pets and animals: Yes Pets and animals: cat(s) and dog(s) Sexually active: No Do you think of yourself as: straight/heterosexual Current gender identity: male What is your relationship status?: living with partner How often do you talk on the phone with friends or family?: three or more times per week How often do you get together with friends or relatives?: once per week How often do you attend yarsanism or jehovah's witness services?: decline to answer Do you belong to any clubs or organized social groups?: no Panel score (0-1 are the most socially isolated patients): 2 What type of physical activity do you participate in: none Frequency: does not exercise Yaima/Lutheran: No preference Special yaima needs: No Seatbelt use: always Drive intox or ride w/intox bull driver: No Do you feel safe at home: Yes Do you feel safe in your relationship?: Yes Time Spent with Patient Time Spent with Patient: 45-69 minutes Time was spent: preparing to see the patient(eg.review tests), ordering medications,tests, procedures, referring, communicating with other health janitor caretaker, indepentently interpreting results, counseling the patient, care coordination and other (Interview/exam of patient; review of discharge instructions, completion of prescriptions/discharge instructions; discussion w/ nursing and CM; documentation of hospital visit)
--- NOTE | 2022-12-23 11:05 | CMDISCH_ITS ---
Date of service: 12/23/22 Time of Service: 11:05 LACE Index Scoring Tool Questions: Length of Stay (in days): 4 - 6 Was the patient admitted via the E.D.?: Yes Comorbidities: Cerebrovascular Disease, Diabetes w/o Complication, Congestive Heart Failure and Dementia E.D. Visits: 1 Answers: Total Score: 13 Risk of Readmission: High Risk Care Management Discharge Plan Reason for Hospitalization: Orthostatic hypotension, falling Discharge Plan: Wilfred will return home today with a resumption of YADI RN, PT, RECRUITMENT MANAGER, add OT. He has decided to follow up with [facility] in order to have a clear determination regarding the pancreatic mass seen on imaging during this admission; CM faxed referral to [facility]. He may transition to hospice at home; hospice was consulted, and Palliative is following. His shipping lead person, Teagan, will drive him home via private vehicle, with the help of her grand daughter, who will also be supporting Wilfred at home. CM ordered a bedside commode, which Teagan picked up at [facility] yesterday. He will follow up with his PCP and discharge plan of care. He is happy to be going home today. Patient/Family Education Needs: Review discharge instructions and limitations, discussion of self care needs including ask me three. Services Needed at Discharge: DME Agency ([facility]) and Home Health Care Services (resume YADI RN, PT, RECRUITMENT MANAGER; add OT)
--- NOTE | 2022-12-23 11:06 | PDOC.HHF2F_ITS ---
Home Health Referral Home Health Orders Clinical synopsis of why skilled professionals are needed: home nursing to monitor pain control for cancer pain, monitor for orthostatic hypotension, educate about management of orthostatic hypotension, coordinate labs and medication changes w/ primary care provider Medical diagnosis necessitation home health referral: pancreatic mass, orthostatic hypotension, temporal lobe seizures, hx of temporal lobe intracranial bleed, Alzheimer's dementia, Registered Nurse: Check all that apply Instruct on new or changed medication(s)/assess compliance: Ordered Assess for exacerbation of medical condition, instruct patient/caregivers on signs and symptoms to report for early detection: Ordered Physical Therapist: Check all that apply Increase strength & endurance for safe mobility at home: Ordered To design/establish home maintenance program: Ordered Fall reduction therapy program for patient with history of frequent falls: Ordered Home safety evaluation and teaching/gait training including stair management (if applicable): Ordered Seal Delivery Vehicle Team Technician: Assist with community resources: Ordered Assist with remote computer terminal operator care planning: Ordered Home Bound Status Requires the aid of supportive device (check all that apply): Walker Assistance of another person (Describe assistance and medical necessity): patient requires assistance to perform ADL, hygiene, preparation of meals, dressing Patient has a condition such that leaving home is medically contraindicated (Describe): patient has severe orthostatic hypotension and chronic back pain and now abdominal pains that make travel out of the home prohibitive Describe why leaving home would require a considerable and taxing effort: Side effects from pain medication (sedation/drowsiness), Requires frequent rest periods, Confusion and Safety Concerns: describe (frequent falls, dizziness) Encounter Date and Reason: I certify that a FTF encounter for this patient was performed on December 23, 2022 and that such encounter was related to the primary reason the patient requires home health services. The encounter was conducted in the following manner: * By me as the certifying physician, SHERIFFS DETECTIVE, PA or * By an inpatient physician, SHERIFFS DETECTIVE or PA during an inpatient stay who communicated findings to me, Certification And Authentication I certify that I composed the above information based on my clinical judgment relating to this patient's medical condition and, if applicable, clinical findings communicated to me by the NPP or inpatient physician who performed the FTF encounter. Name of Provider that will be monitoring home health services: Maynor Hunt
--- NOTE | 2022-12-23 11:17 | PT.INTREAT ---
Date of service: 12/23/22 Time of Service: 10:49 PT Notes Visit Reasons: Orthostatic hypotension, falling Inpatient Physical Therapy Treatment Note [facility] Date: 12/23/22 PRECAUTIONS: Fall. Standard. Activity as tolerated. SUBJECTIVE: Patient reports: I've been hanging around the hospital too long! I need to get home. Family reports they were told they would discharge within the hour. OBJECTIVE: Patient in Weiss's position in bed. Agreeable to therapy. and granddaughter present. ? PAIN: none reported. VITALS: monitored by nursing staff.? Therapeutic Activities ([id number]): Direct one-on-one instruction in dynamic activities to improve functional performance. ? BED MOBILITY/TRANSFERS? Rolling L/R: SBA with verbal cues Supine-sit: SBA with verbal cues ? Sit-supine: SBA with verbal cues ? Sit-stand: SBA with verbal cues ? Stand-sit: SBA with verbal cues ? Bed-Chair: SBA with verbal cues, occasional tactile cues for safe distance from walker. ? Chair-bed: SBA with verbal cues, occasional tactile cues for safe distance from walker. Provided skilled cues and instruction on performance and technique throughout. Spoke with of patient. No hospital bed available at home. Hospital bed laid flat to simulate home environment, height set at approximate height of bed at home. ? ASSESSMENT:? Patient tolerates therapy well PLAN: Continue global strengthening per plan of care until patient is medically cleared for discharge. TREATMENT CODE/TIME: 21 minutes beginning at 10:49
--- NOTE | 2022-12-23 14:40 | INDS_ITS ---
PT Notes Visit Reasons: Orthostatic hypotension, falling Inpatient Physical Therapy Discharge Summary Date: 12/23/22 Dates of Service: December 18, 2022 - December 23, 2022 Referring Doctor: Vikash Mitchell PT Orders: PT CONSULT: Limited Mobility This document serves as a summary of care. No PT services were provided on this date. Patient Profile/Admitting Diagnosis: Wilfred is a 67 male with h/o dementia, HTN -- here two weeks [employer] with cerebral hemorrhage of left temporal lobe, transferred to [facility] [place]. After return home was struggling -- fatigued, lightheaded, falling. Caregiver unable to manage and was brought to ER for evaluation.?Patient participated in 4 sessions of PT intervention over the course of 6 days. They were able to demonstrate safety and mobility sufficient to allow for safe return home with family support. PMHX: (Updated 12/17/22 @ 20:14 by Vikash Mitchell MD) Failure to thrive in adult (Acute) Frequent falls (Acute) Generalized weakness (Acute) Dizziness (Acute) Orthostatic hypotension (Acute) Intracranial hemorrhage (Acute) Muscular deconditioning (Acute) Hypertension (Chronic) COVID-19 (Acute) UTI (urinary tract infection) (Acute) Generalized weakness (Acute) Chronic diarrhea (Chronic) Mild cognitive impairment (Chronic) Diabetes (Chronic) COVID-19 (Acute) 11/24/21 Vaccinated, boostedUmbilical hernia (Acute) Back pain (Acute) Diarrhea (Acute) Urinary frequency (Acute) Tachycardia (Chronic) MARTA (obstructive sleep apnea) (Chronic) Does not use CPAPHyperlipidemia (Acute) Arthritis (Acute) Knees, lower back, shouldersAcute CVA (cerebrovascular accident) (Acute) 2018 and 2019Chronic low back pain (Acute) Lumbar facet arthropathy (Acute) Lumbar spondylosis (Acute) without myelopathy or radiculopathy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Heart disease (Acute) Cerebral amyloid angiopathy (Acute) Generalized tonic-clonic seizure (Acute) Only 1 seizure ever after first CVADiabetic peripheral neuropathy (Acute) Very mild Medical History? Bilateral inguinal hernia Bundle branch block lumbar/thoracic medial right l2-5Compression fracture of L1 vertebra Diverticulosis of colon without diverticulitis per colonoscopy 07/2008 Elevated fasting blood sugar (09/08/15) A1c 6.3 in 08/2015 History of revision of total replacement of left knee joint Renal calculi Rotator cuff arthropathy of right shoulder Ruptured appendix Appendectomy when he was 13.Sensorineural hearing loss, bilateral (09/03/15) Tinnitus, bilateral (09/03/15) Varicose veins of lower extremity GREAT SAPHENOUS VEIN LEFT LEG Surgical History? 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 Left Upper Extremity: Demonstrates WFL AROM of L UE Right Lower Extremity: Demonstrates WFL AROM of R LE Left Lower Extremity: Demonstrates WFL AROM of L UE Strength: Right Upper Extremity: Shoulder flexion 4/5, abduction 4/5, Bicep 5/5, Tricep 5/5, Good functional grasp Left Upper Extremity: Shoulder flexion 4-/5, abduction 4/5, Bicep 5/5, Tricep 4/5, Slightly diminished functional grasp in comparison to right Right Lower Extremity: Hip flexion 4-/5, knee extension 4/5, knee flexion 4-/5, DF 5/5 Left Lower Extremity: Hip flexion 4/5, knee extension 4/5, knee flexion 4/5, DF 5/5 Bed Mobility/Transfers: ?Rolling L/R: SBA with verbal cues ?Supine-sit: SBA with verbal cues ?Sit-supine: SBA with verbal cues ?Sit-stand: SBA with verbal cues ?Stand-sit: SBA with verbal cues ?Bed-Chair: SBA with verbal cues, occasional tactile cues for safe distance from walker. ?Chair-bed: SBA with verbal cues, occasional tactile cues for safe distance from walker. Gait: FWW and min A, tolerating up to 20' x 4. Balance: Static Sitting: Normal Dynamic Sitting: Good Static Standing: Fair Dynamic Standing: Fair Assessment: Patient is a 67 year old male referred to physical therapy services with the diagnosis of orthostatic hypertension with increased falling. Patient presented with clinical signs and symptoms consistent with diagnosis history of hemorrhagic CVA, dementia with cognitive impairment. Patient participated in 4 sessions of PT intervention over the course of 6 days. They were able to demonstrate safety and mobility sufficient to allow for safe return home with family support. Goals: Goals X1 week 1. Supine-Sit Independent (Progressing Toward) 2. Sit-Supine Independent(Progressing Toward) 3. Sit-Stand Independent (Progressing Toward) 4. Stand-Sit Independent (Progressing Toward) 5. Bed-Chair Independent (Progressing Toward) 6. Chair-Bed Independent (Progressing Toward) 7. Gait FWW 300 ft or greater increased stride length, improved luh (NOT MET) 8. Stairs up/down 3-5 steps with railing (NOT MET) 9. Independent with home exercise program (NOT MET) Plan of Care/Treatment Plan: d/c from PT in acute care setting DISCHARGE RECOMMENDATIONS: home with family support, PT TREATMENT CODE/TIME: none Lorri Bird, PT, DPT [facility]
[2023-01-05 18:39] LABS: Lab Add On Test DONE
== END 2022-12-23 11:50 | disposition home health service (06) | DRG 435 ==
LOC: ER 20:47 → ICU 21:11 → MS 12-18 09:04
PROVIDERS: General Practice; Admitting Provider Internal Medicine; Emergency Provider Student in an Organized Health Care Education/Training Program; PCP Nurse Practitioner Family; Visit Provider Internal Medicine
DX: C25.1 Malignant neoplasm of body of pancreas (principal); I61.6 Nontraumatic intracerebral hemorrhage, multiple localized; N39.0 Urinary tract infection, site not specified; E85.4 Organ-limited amyloidosis; F02.818 Dementia in other diseases classified elsewhere, unspecified severity, with other behavioral disturbance; F01.518 Vascular dementia, unspecified severity, with other behavioral disturbance; I87.1 Compression of vein; R62.7 Adult failure to thrive; I95.1 Orthostatic hypotension; R29.6 Repeated falls; G40.909 Epilepsy, unspecified, not intractable, without status epilepticus; I10 Essential (primary) hypertension; M54.9 Dorsalgia, unspecified; I68.0 Cerebral amyloid angiopathy; R53.1 Weakness; K52.9 Noninfective gastroenteritis and colitis, unspecified; G47.33 Obstructive sleep apnea (adult) (pediatric); E78.5 Hyperlipidemia, unspecified; R00.0 Tachycardia, unspecified; R35.0 Frequency of micturition; M47.816 Spondylosis without myelopathy or radiculopathy, lumbar region; E11.42 Type 2 diabetes mellitus with diabetic polyneuropathy; K57.30 Diverticulosis of large intestine without perforation or abscess without bleeding; H90.3 Sensorineural hearing loss, bilateral; I83.92 Asymptomatic varicose veins of left lower extremity; N20.0 Calculus of kidney; G30.0 Alzheimer's disease with early onset; Z96.652 Presence of left artificial knee joint; Z79.84 Long term (current) use of oral hypoglycemic drugs; F32.A Depression, unspecified; F41.9 Anxiety disorder, unspecified; M41.9 Scoliosis, unspecified; Z86.73 Personal history of transient ischemic attack (TIA), and cerebral infarction without residual deficits; Z66 Do not resuscitate
CPT/HCPCS: 36415; 74177; 74183; 76498; 80048; 80053; 83690; 86850; 86900; 86901; 87426; 87635; 95718; 95813; 96360; 96361; 97110; 97112; 97162; 97165; 97530; 97535; 99223; 99231; 99285; 70450; 71260; 72125; 80164; 81003; 81015; 83735; 85025; 86301; 87086; 99222; 99232; 99233; 99239; J0696; J1200; J3490

== ENCOUNTER → 2022-12-20 07:29 | Outpatient (BNVA) | payer MEDICARE, BC, SELFPAY | PROVIDERS: PCP Nurse Practitioner Family; Referring Provider Nurse Practitioner Family; Visit Provider Psychiatry & Neurology Neurology ==

== ENCOUNTER 2023-01-10 09:43 | Emergency (ER) | payer MEDICARE, BC, SELFPAY ==
[2023-01-10 09:43] VITALS: BP 140/80; PULSE 84; RESP 16; TEMP 37; O2SAT 97
--- NOTE | 2023-01-10 09:45 | DI.CT_ITS ---
Exam(s) CT CHEST/ABD/PEL W EXAM: CT CHEST/ABD/PEL W CLINICAL HISTORY: abd pain, rib pain, fall, pancreas biopsy yest TECHNIQUE: Imaging Protocol: Axial computed tomography images with coronal and sagittal reformatted images were created and reviewed CONTRAST MATERIAL: Intravenous: Omnipaque 350 contrast volume:100 mL Oral: No COMPARISON: CT CT THORACIC LUMBAR SPINE REC from 12/17/[address] CHEST/ABD/PEL W from 12/17/2022 FINDINGS: The examination is limited due to patient motion artifact. CHEST: Tracheobronchial tree: Patent where visualized. Pulmonary parenchyma: No consolidation or dominant measurable mass. No architectural distortion. Ther e is dependent atelectasis in the lung bases. Visualized thyroid gland: Unremarkable. Mediastinum and Gilma: No dominant adenopathy or fluid collection. The esophagus is unremarkable. Pleura: No effusion or pneumothorax. Heart: The heart is not dilated. Mild coronary artery calcification is present. No pericardial effus ion. Pulmonary arteries: The segmental and subsegmental pulmonary arteries are inadequately opacified for evaluation of pulmonary emboli. No large central pulmonary embolus is present. Aorta: Thoracic aorta non-dilated. Atherosclerosis. Lymph nodes: Within normal limits. Soft tissues: Unremarkable. Bones:Within normal limits for the patient's age. ABDOMEN: Liver: Normal density. No measurable mass. Portal, Superior Mesenteric, and Splenic Veins: Superior mesenteric and portal veins are unremarkable . Please see below under the section of pancreas for discussion of the splenic vein. Gallbladder and Biliary Tract: No radiodense calculus or dilation. Pancreas: There is a stable area of decreased attenuation in the head of the pancreas. There is also again seen ill-defined soft tissue at the junction of the head and body of the pancreas in capsulate d portion of the splenic vein. It is unchanged compared to the prior examination. There is decrease d attenuation seen in the splenic vein just distal to this mass suggesting thrombus. Collateral vess els are seen in the left upper quadrant. Spleen: Normal. Adrenals: No masses seen. Kidneys: Normal size, contour and axis. Bilateral nephrolithiasis. No hydronephrosis. No masses see n. Abdominal Aorta: Abdominal portion non-dilated. Bowel: No obstruction or bowel wall thickening. No evidence of appendicitis. Peritoneal Cavity: No ascites, collection or mesenteric inflammatory response. No free air. Lymph Nodes: Within normal limits. Bones: Within normal limits for the patient's age. Soft Tissues: There are bilateral fat containing inguinal hernias. There is a small fat containing u mbilical hernia. PELVIS: Bladder: There is diffuse thickening of the wall of the urinary bladder. The urinary bladder is inco mpletely distended. Reproductive Organs: Mildly enlarged prostate gland. Lymph Nodes: Within normal limits. Bones: Within normal limits. IMPRESSION: 1. No acute pulmonary process. 2. There is again seen soft tissue at the junction of the head and body of the pancreas. It appears to obstruct the splenic vein which contains thrombus distally. Neoplasm/metastatic disease is suspec sourav. 3. Stable area of decreased attenuation in the head of the pancreas. 4. No acute abdominal or pelvic organ injury. 5. Diffuse thickening of the wall of the urinary bladder. This may be due to underdistention. Cysti tis cannot be excluded. 6. Mildly enlarged prostate gland. RADIATION DOSE DELIVERED: 1,643mGy.cm Total DLP DATA REPOSITORY: All CT scans at this facility are submitted to the National Radiology Data Registry (NRDR) Dose Index Registry (DIR) with the [employer] ([employer]). RADIATION OPTIMIZATION: All CT scans at this facility use at least one of these dose optimization te chniques: automated exposure control; mA and/or kV adjustment per patient size (includes targeted exa ms where dose is matched to clinical indication); or iterative reconstruction.
--- NOTE | 2023-01-10 09:45 | DI.CT_ITS ---
Exam(s) CT HEAD CERVICAL SPINE WO EXAM: CT HEAD CERVICAL SPINE WO CLINICAL HISTORY: fall. TECHNIQUE: Imaging Protocol: Axial computed tomography images with coronal and sagittal reformatted images were created and reviewed COMPARISON: CT CT HEAD WO from 11/29/[address] CERVICAL SPINE WO from 12/17/[address] HEAD WO from 12/17/2022 FINDINGS: The examination is limited due to patient motion artifact. CT Head: Ventricles and Extra axial spaces: Normal in size and morphology for the patient's age. Hemorrhage: None. Cerebral parenchyma: There are areas of encephalomalacia involving the left temporal lobe and right f rontal lobe. There are areas of decreased attenuation in the white matter consistent with small vess el ischemic disease. Midline shift: None. Brainstem/Cerebellum: Normal. Calvarium: Normal. Visualized Paranasal sinuses/Mastoids: There is mucosal thickening in the sphenoid sinuses bilaterall y. The remaining visualized paranasal sinuses and mastoid air cells are clear. Soft Tissues: Unremarkable. CT Cervical Spine: There is artifact from the patient's dental amalgam. Bones: No acute fracture or subluxation. Degenerative changes are seen in the cervical spine. Soft Tissues: Unremarkable. Lung Apices: Clear. IMPRESSION: 1. No acute intracranial process. 2. No acute fracture or subluxation in the cervical spine. 3. Findings were discussed with the emergency department on the date of the examination. RADIATION DOSE DELIVERED: 1,479.9mGy.cm Total DLP DATA REPOSITORY: All CT scans at this facility are submitted to the National Radiology Data Registry (NRDR) Dose Index Registry (DIR) with the [employer] ([employer]). RADIATION OPTIMIZATION: All CT scans at this facility use at least one of these dose optimization te chniques: automated exposure control; mA and/or kV adjustment per patient size (includes targeted exa ms where dose is matched to clinical indication); or iterative reconstruction.
[2023-01-10 09:50] VITALS: RESP 16
--- NOTE | 2023-01-10 10:03 | W.ED.GENAD ---
Discharge Plan Disposition Patient Disposition: Home Condition: Stable Discharge Details Clinical Impression: Fall, Abdominal pain, Bilateral contusion of ribs Primary Care Provider: Maynor Hunt ED Provider: Jovany Rodriguez Home Meds and New Rx's Prescriptions: Continued ipratropium bromide 21 mcg (0.03 %) spray,non-aerosol 2 spray intranasal TID Qty: 30 3RF Rx Instructions: administer into each nostril atorvastatin 10 mg tablet 10 mg PO HS Qty: 90 3RF memantine 28 mg capsule,sprinkle,ER 24hr 28 mg PO DAILY donepezil 10 mg tablet 10 mg PO BID Qty: 180 3RF flecainide 100 mg tablet 100 mg PO BID Qty: 180 3RF metformin 500 mg tablet extended release 24 hr 500 mg PO DAILY Qty: 180 3RF metoprolol succinate 50 mg tablet extended release 24 hr 50 mg PO DAILY Qty: 90 3RF trazodone 50 mg tablet 50 mg PO QHS PRN (Reason: sleep) Qty: 60 0RF oxycodone 5 mg tablet 2.5 mg PO Q4H PRN MDD 15mg PRN (Reason: pain) Qty: 90 0RF levetiracetam 1,000 mg tablet 1,000 mg PO BID Qty: 180 0RF fentanyl 12 mcg/hr patch 72 hour 12 mcg transdermal Q72H MDD 12mcg Qty: 10 0RF divalproex 125 mg Capsule, Delayed Rel Sprinkle 250 mg PO QPM Qty: 30 0RF pyridostigmine bromide [Mestinon] 60 mg Tablet 30 mg PO BID Qty: 60 0RF naloxone [Narcan] 4 mg/actuation spray,non-aerosol 4 mg intranasal Q3M PRNQty: 2 0RF Rx Instructions: spray 1 dose into ONE nostril; alternate nostrils w each dose until help arrives Discharge Instructions Instructions: Fall Prevention for Older Adults (ED), Rib Contusion (ED) Additional Instructions: The imaging today did not reveal any acute process. Please contact your primary care physician to arrange follow-up. Return to the ER immediately for any worsening or new concerning symptoms. Referrals: Maynor Hunt, [employer] [Primary Care Provider] - Medical Decision Making 10:00??67-year-old male with history of dementia, panic attic cancer, had endoscopic biopsy of the pancreas yesterday, here after fall from standing to the ground that was unwitnessed in the bedroom, complaining of rib pain bilaterally. Patient's ribs are tender bilaterally. He also has tenderness in his abdomen. Unclear if this is posttraumatic or post procedural. Plan to obtain CT imaging of the chest abdomen pelvis to rule out significant life-threatening traumatic or acute surgical process including perforated viscus. Given altered mental status and unwitnessed fall, consider intracranial traumatic hemorrhage. Plan to obtain CT of the head. 1240 --Labs reviewed and nondiagnostic. CT of the head was reviewed and interpreted by radiology: IMPRESSION: 1. No acute intracranial process. 2. No acute fracture or subluxation in the cervical spine. 3. Findings were discussed with the emergency department on the date of the examination. 1259 --CT of the chest abdomen pelvis interpreted by radiology: IMPRESSION: 1. No acute pulmonary process. 2. There is again seen soft tissue at the junction of the head and body of the pancreas. It appears to obstruct the splenic vein which contains thrombus distally. Neoplasm/metastatic disease is suspected. 3. Stable area of decreased attenuation in the head of the pancreas. 4. No acute abdominal or pelvic organ injury. 5. Diffuse thickening of the wall of the urinary bladder. This may be due to underdistention. Cystitis cannot be excluded. 6. Mildly enlarged prostate gland. Urinalysis reviewed and not consistent with acute urinary tract infection. Patient reassessed and stable. Ambulating at baseline. All results were discussed with the patient's . Plan for discharge with outpatient follow-up. Usual customary discharge instructions were reviewed. Lab Data Lab results reviewed: Yes I reviewed the patient's lab results. Labs: Laboratory Tests Range/Units 01/10/23 01/10/23 01/10/23 10:29 10:29 11:00 WBC (4.4-10.8) 10^3/uL 5.03 RBC (4.36-5.78) 10^6/uL 4.24 L Hgb (13.5-17.5) g/dL 12.4 L Hct (40.0-50.0) % 37.5 L MCV (80-95) fL 88 MCH (27.0-33.0) pg 29.2 MCHC (32.0-36.0) % 33.1 RDW (11.8-14.1) % 12.9 Plt Count (130-400) 10^3/uL 186 MPV (8.0-11.0) fL 8.8 Immature Gran % 0.2 Neutrophils % 75.9 Lymphocytes % 14.9 Monocytes % 6.8 Eosinophils % 1.8 Basophils % 0.4 Nucleated RBC % (0.0-0.3) % 0.0 Absolute Neutrophils (1.2-6.7) 10^3/uL 3.82 Absolute Lymphocytes (1.2-3.4) 10^3/uL 0.75 L Absolute Monocytes (0.1-0.8) 10^3/uL 0.34 Absolute Eosinophils (0.0-0.7) 10^3/uL 0.09 Absolute Basophils (0.0-0.2) 10^3/uL 0.02 Sodium (136-145) mmol/L 140 Potassium (3.5-5.1) mmol/L 4.0 Chloride (98-107) mmol/L 104 Carbon Dioxide (21.0-32.0) mmol/L 29.4 Anion Gap (3-11) mmol/L 6.6 BUN (7-18) mg/dL 18 Creatinine (0.70-1.30) mg/dL 1.1 Est GFR (CKD-EPI 2020) (mL/min/1.73m2) 73.58 Glucose (74-106) mg/dL 118 H Calcium (8.5-10.1) mg/dL 9.3 Magnesium (1.8-2.4) mg/dL 1.7 L Total Bilirubin (0.2-1.0) mg/dL 0.6 AST (15-37) U/L 8 L ALT (16-63) U/L 15 L Alkaline Phosphatase (46-116) U/L 75 Troponin I (<or=60) ng/L < 50 Total Protein (6.4-8.2) g/dL 7.0 Albumin (3.4-5.0) g/dL 3.2 L Urine Color (Yellow) Yellow Urine Clarity (Clear) Clear Urine pH (5-8) 6.0 Ur Specific [place] (1.005-1.025) 1.025 Urine Protein (Negative) mg/dL Trace H Urine Ketones (Negative) mg/dL 15 H Urine Blood (Negative) Negative Urine Nitrite (Negative) Negative Urine Bilirubin (Negative) Negative Urine Urobilinogen (Up to 0.2) mg/dL 0.2 Ur Leukocyte Esterase (Negative) Negative Urine RBC (0-2) HPF 0-2 Urine WBC (0-5) HPF 0-2 Ur Epithelial Cells (Negative) HPF Moderate Urine Crystals (Negative) HPF Negative Urine Bacteria (Negative) HPF Rare Urine Casts (Negative) LPF Negative Urine Mucus (Negative) Moderate Urine Other (Negative) Negative Ur Culture Indicated? No/Sq. Contamination Urine Glucose (Negative) mg/dL Negative HPI General Mode of arrival: EMS. Date/Time Provider Initiated Documentation: 01/10/23 09:58. Limitations to Documentation: altered mental status. Information obtained by: patient, family and EMS. HPI Narrative: 67-year-old male with history of dementia, CVA with residual left-sided weakness, had endoscopic procedure with biopsy of his pancreas yesterday confirming pancreatic cancer, here today after fall. History & review of systems limited secondary to dementia and mental status. Patient's notes he fell to the floor in the bedroom today. Fall was not witnessed. She believes he slid to the floor but is unsure. He has been complaining of rib pain since the fall. Related Data Home Medications Medication Instructions Recorded Confirmed memantine 28 mg capsule 28 mg PO DAILY 08/14/21 01/10/23 sprinkle,extended release 24hr ipratropium bromide 21 mcg (0.03 2 spray intranasal TID #30 mL 09/27/21 01/10/23 %) nasal spray donepezil 10 mg tablet 10 mg PO BID #180 tabs 06/15/22 01/10/23 flecainide 100 mg tablet 100 mg PO BID #180 tabs 06/15/22 01/10/23 metformin 500 mg tablet,extended 500 mg PO DAILY #180 tabs 06/30/22 01/10/23 release 24 hr metoprolol succinate 50 mg 50 mg PO DAILY #90 tabs 12/05/22 01/10/23 tablet,extended release 24 hr atorvastatin 10 mg tablet 10 mg PO HS #90 tab-caps 12/07/22 01/10/23 trazodone 50 mg tablet 50 mg PO QHS PRN sleep #60 tabs 12/14/22 01/10/23 divalproex 125 mg capsule,delayed 250 mg PO QPM #30 caps 12/23/22 01/10/23 release sprinkle naloxone 4 mg/actuation nasal 4 mg intranasal Q3M PRN #2 ea 12/23/22 01/10/23 spray (Narcan) pyridostigmine bromide 60 mg 30 mg PO BID #60 tabs 12/23/22 01/10/23 tablet (Mestinon) oxycodone 5 mg tablet 2.5 mg PO Q4H PRN PRN pain #90 tabs 12/30/22 01/10/23 levetiracetam 1,000 mg tablet 1,000 mg PO BID #180 tabs 12/31/22 01/10/23 fentanyl 12 mcg/hr transdermal 12 mcg transdermal Q72H #10 ea 01/04/23 01/10/23 patch Previous Rx's Medication Instructions Recorded ipratropium bromide 21 mcg (0.03 2 spray intranasal TID #30 mL 09/27/21 %) nasal spray donepezil 10 mg tablet 10 mg PO BID #180 tabs 06/15/22 flecainide 100 mg tablet 100 mg PO BID #180 tabs 06/15/22 metformin 500 mg tablet,extended 500 mg PO DAILY #180 tabs 06/30/22 release 24 hr metoprolol succinate 50 mg 50 mg PO DAILY #90 tabs 12/05/22 tablet,extended release 24 hr atorvastatin 10 mg tablet 10 mg PO HS #90 tab-caps 12/07/22 trazodone 50 mg tablet 50 mg PO QHS PRN sleep #60 tabs 12/14/22 divalproex 125 mg capsule,delayed 250 mg PO QPM #30 caps 12/23/22 release sprinkle naloxone 4 mg/actuation nasal 4 mg intranasal Q3M PRN #2 ea 12/23/22 spray (Narcan) pyridostigmine bromide 60 mg 30 mg PO BID #60 tabs 12/23/22 tablet (Mestinon) oxycodone 5 mg tablet 2.5 mg PO Q4H PRN PRN pain #90 tabs 12/30/22 levetiracetam 1,000 mg tablet 1,000 mg PO BID #180 tabs 12/31/22 fentanyl 12 mcg/hr transdermal 12 mcg transdermal Q72H #10 ea 01/04/23 patch Allergies Allergy/AdvReac Type Severity Reaction Status Date / Time morphine Allergy Mild ITCHING Verified 12/27/22 08:40 ciprofloxacin Allergy Unknown Verified 12/27/22 08:40 codeine Allergy Unknown Verified 12/27/22 08:40 dextromethorphan Allergy Unknown Verified 12/27/22 08:40 [From Nuedexta] pollen extracts Allergy Unknown Verified 12/27/22 08:40 quinidine [From Nuedexta] Allergy Unknown Verified 12/27/22 08:40 Sulfa (Sulfonamide Allergy Unknown Verified 12/27/22 08:40 Antibiotics) General Stated Complaint: AMS/LOC RERE: 3 Review of Systems Unobtainable due to mental status PFSH All Active Problems (Updated 01/10/23 @ 13:02 by Jovany Rodriguez MD) Fall (Acute) Abdominal pain (Acute) Bilateral contusion of ribs (Acute) Muscle spasm (Acute) Debilitated patient (Acute) Pancreatic cancer (Acute) Advanced care planning/counseling discussion (Acute) Caregiver stress (Acute) Recurrent cerebrovascular accidents (CVAs) (Acute) Dementia with behavioral disturbance (Acute) Vascular dementia (Acute) Palliative care encounter (Acute) Abnormal abdominal CT scan (Acute) Early onset Alzheimer's dementia (Acute) Failure to thrive in adult (Acute) Frequent falls (Acute) Generalized weakness (Acute) Dizziness (Acute) Orthostatic hypotension (Acute) Muscular deconditioning (Acute) Hypertension (Chronic) COVID-19 (Acute) Generalized weakness (Acute) Chronic diarrhea (Chronic) Mild cognitive impairment (Chronic) Diabetes (Chronic) COVID-19 (Acute) 11/24/21 Vaccinated, boosted Umbilical hernia (Acute) Back pain (Acute) Diarrhea (Acute) Urinary frequency (Acute) Tachycardia (Chronic) MARTA (obstructive sleep apnea) (Chronic) Does not use CPAP Hyperlipidemia (Acute) Arthritis (Acute) Knees, lower back, shoulders Acute CVA (cerebrovascular accident) (Acute) 2018 and 2019 Chronic low back pain (Acute) Lumbar facet arthropathy (Acute) Lumbar spondylosis (Acute) without myelopathy or radiculopathy 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 Heart disease (Acute) Cerebral amyloid angiopathy (Acute) Generalized tonic-clonic seizure (Acute) Only 1 seizure ever after first CVA Diabetic peripheral neuropathy (Acute) Very mild Medical History Bilateral inguinal hernia 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 Status post appendectomy At age 13 Family History Mother Heart disease Dementia Father Heart disease Alzheimer disease Brother Alcohol use disorder Depression Heart disease Grandfather Heart disease Grandfather Personal history of malignant neoplasm LUNG Grandmother Essential hypertension Heart disease Grandmother Diabetes Essential hypertension Personal history of malignant neoplasm COLON Heart disease Social History Smoking/Tobacco Use Status: Never Second Hand Exposure: Yes Smoking risk assessment performed?: Yes Alcohol Intake: current Alcohol Intake frequency: a few times a month Alcohol type: beer Drug use: Never Substance use type: does not use Caregiver/Support person: Yes Household members: significant other, friend(s) and caregiver Housing: house Do you need help understanding health information?: Often Pets and animals: Yes Pets and animals: cat(s) and dog(s) Sexually active: No Do you think of yourself as: straight/heterosexual Current gender identity: male What is your relationship status?: living with partner How often do you talk on the phone with friends or family?: three or more times per week How often do you get together with friends or relatives?: once per week How often do you attend denominational or sabianism services?: decline to answer Do you belong to any clubs or organized social groups?: no Panel score (0-1 are the most socially isolated patients): 2 What type of physical activity do you participate in: none Frequency: does not exercise Yaima/Hindu: No preference Special yaima needs: No Seatbelt use: always 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 Do you feel safe at home: Yes Do you feel safe in your relationship?: Yes Exam Const General: cooperative and no acute distress HENMT Head: normocephalic and atraumatic Mouth: moist mucous membranes Eyes Conjunctivae: normal conjunctivae Sclera: normal sclerae Neck Neck: trachea midline and supple Chest Chest: no crepitus and tenderness rib (Bilateral lower) Resp Auscultation: clear to auscultation bilaterally, no rales, no rhonchi and no wheezes Cardio Rate: regular rate and not tachycardic Rhythm: regular rhythm GI Palpation: soft, not firm, no guarding, no masses, not rigid and tender in the RUQ Auscultation: normal bowel sounds Skin General skin exam: no rashes or lesions noted Neuro General: patient alert, patient awake, oriented Patient Orientation: Person and Confused and tone normal Cognition: abnormal cognition Other: 4 out of 5 strength left upper extremity, 5 out of 5 right upper extremity, generally weak in legs bilaterally; mild left facial droop/weakness Extrem General: no edema Psych Appearance: grossly normal Speech and Movement: speech and movement normal Course Vital Signs Vital signs: Vital Signs Temperature 37.0 C 01/10/23 09:43 Pulse 84 01/10/23 09:43 Respiratory Rate 16 01/10/23 09:43 Blood Pressure 140/80 01/10/23 09:43 Pulse Oximetry 97 01/10/23 09:43 Temperature 37.0 C 01/10/23 09:43 Temperature Source Oral 01/10/23 09:43 Pulse 84 01/10/23 09:43 Respiratory Rate 16 01/10/23 09:50 Respiratory Effort Normal 01/10/23 09:52 Respiratory Depth Normal 01/10/23 09:50 Blood Pressure 140/80 01/10/23 09:43 Pulse Oximetry 97 01/10/23 09:43 Oxygen Delivery Method Room Air 01/10/23 09:43 Oxygen Flow Rate 0 01/10/23 09:43 Pain Level 0 01/10/23 09:43
[2023-01-10 10:35] LABS: Abs Immature Grans 0.01 10^3/uL (0.0-0.06); Absolute Basophil Count 0.02 10^3/uL (0.0-0.2); Absolute Eosinophil Count 0.09 10^3/uL (0.0-0.7); Absolute Lymphocyte Count 0.75 10^3/uL (1.2-3.4); Absolute Monocyte Count 0.34 10^3/uL (0.1-0.8); Absolute Neutrophil Count 3.82 10^3/uL (1.2-6.7); Basophils % 0.4; Eosinophils % 1.8; HCT 37.5 % (40.0-50.0); HGB 12.4 g/dL (13.5-17.5); Immature Grans % 0.2; Lymphocytes % 14.9; MCH 29.2 pg (27.0-33.0); MCHC 33.1 % (32.0-36.0); MCV 88 fL (80-95); MPV 8.8 fL (8.0-11.0); Monocytes % 6.8; Neutrophils % 75.9; Platelet Count 186 10^3/uL (130-400); RBC 4.24 10^6/uL (4.36-5.78); RDW 12.9 % (11.8-14.1); RDW-SD 41.9 fL; WBC 5.03 10^3/uL (4.4-10.8)
[2023-01-10 11:11] LABS: ALT 15 U/L (16-63); AST 8 U/L (15-37); Albumin 3.2 g/dL (3.4-5.0); Alkaline Phosphatase 75 U/L (46-116); Anion Gap 6.6 mmol/L (3-11); BUN 18 mg/dL (7-18); Bilirubin, Total 0.6 mg/dL (0.2-1.0); CO2 29.4 mmol/L (21.0-32.0); CREATININE 1.1 mg/dL (0.70-1.30); Calcium 9.3 mg/dL (8.5-10.1); Chloride 104 mmol/L (98-107); Estimated GFR 73.58 (mL/min/1.73m2); Glucose 118 mg/dL (74-106); Magnesium 1.7 mg/dL (1.8-2.4); Sodium 140 mmol/L (136-145); Troponin I < 50 ng/L (<or=60)
[2023-01-10 11:12] LABS: Bilirubin Negative (Negative); Blood Negative (Negative); Clarity Clear (Clear); Glucose Negative (Negative); Ketones 15 mg/dL (Negative); Leukocyte Esterase Negative (Negative); Nitrite Negative (Negative); Specific Gravity 1.025 (1.005-1.025); Urobilinogen 0.2 mg/dL (Up to 0.2)
[2023-01-10 11:14] VITALS: BP 139/80; PULSE 82; RESP 20; O2SAT 98
[2023-01-10 11:21] LABS: Bacteria Rare HPF (Negative); C & S Indicated? No/Sq. Contamination; Casts Negative LPF (Negative); Crystals Negative HPF (Negative); Epithelial Cells Moderate HPF (Negative); Mucus Moderate (Negative); Other Cells Negative (Negative); RBC 0-2 HPF (0-2); WBC 0-2 HPF (0-5)
[2023-01-10] MEDS: Normal Saline - Diluent 50 ML VIAL IJ (11:41)
[2023-01-10] MEDS: Omnipaque 350 MG/ML 100 ML BTL IJ (11:42)
[2023-01-10 13:18] VITALS: BP 134/82; PULSE 80; RESP 16; O2SAT 94
== END 2023-01-10 13:17 | disposition home or self-care (01) ==
PROVIDERS: Emergency Provider Student in an Organized Health Care Education/Training Program; PCP Nurse Practitioner Family
DX: R10.9 Unspecified abdominal pain (principal); S20.213A Contusion of bilateral front wall of thorax, initial encounter; R93.5 Abnormal findings on diagnostic imaging of other abdominal regions, including retroperitoneum; G93.89 Other specified disorders of brain; C25.9 Malignant neoplasm of pancreas, unspecified; I69.354 Hemiplegia and hemiparesis following cerebral infarction affecting left non-dominant side; E11.9 Type 2 diabetes mellitus without complications; Z79.4 Long term (current) use of insulin; Z79.899 Other long term (current) drug therapy
CPT/HCPCS: 74177; 80053; 99285; 70450; 71260; 72125; 81003; 81015; 83735; 84484; 85025; 99284; J3490

== ENCOUNTER 2023-07-19 13:49 | Inpatient (IN) | payer OTHER, SELFPAY ==
[2023-07-19 14:48] VITALS: BP 116/79; PULSE 62; RESP 16; TEMP 37.1; O2SAT 96
[2023-07-19] MEDS: fentaNYL 25 MCG PATCH TD (19:24)
[2023-07-19] MEDS: fentaNYL 12 MCG PATCH TD (19:25)
[2023-07-19] MEDS: traZODone 50 MG TAB 150 MG PO (19:26)
[2023-07-19] MEDS: Divalproex 125 MG SPRINKLE 250 MG PO (19:26)
[2023-07-19] MEDS: Donepezil 5 MG TAB 10 MG PO (19:26)
[2023-07-20 07:45] VITALS: BP 108/79; PULSE 66; RESP 14; TEMP 36.4; O2SAT 96
[2023-07-20] MEDS: Donepezil 5 MG TAB 10 MG PO (09:18)
[2023-07-20] MEDS: Metoprolol CR 50 MG TABCR PO (09:18)
[2023-07-20] MEDS: Penicillin V POTASSIUM 500 MG TAB PO ×2 (09:19→11:07)
--- NOTE | 2023-07-20 10:02 | HPE_ITS ---
Date of service: 07/19/23 Time of Service: 10:02 Assessment and Plan Assessment and plan (1) Pancreatic cancer: Status: Acute (2) Recurrent cerebrovascular accidents (CVAs): Status: Acute (3) Dementia with behavioral disturbance: Status: Acute (4) Vascular dementia: Status: Acute (5) Early onset Alzheimer's dementia: Status: Acute (6) Failure to thrive in adult: Status: Acute (7) Generalized weakness: Status: Acute (8) Muscular deconditioning: Status: Acute (9) MARTA (obstructive sleep apnea): Status: Chronic (10) Generalized tonic-clonic seizure: Status: Acute (11) Heart disease: Status: Acute (12) Diarrhea: Status: Acute (13) Diabetes: Status: Chronic (14) Hospice care: Status: Acute Assessment and plan: Dario is a pleasant 67 year old man who is on hospice for pancreatic cancer and also has past medical Hx significant for 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 He lives at home with his significant other, Teagan. Teagan is his primary caregiver. He is bed bound but he is transferred to the recliner via aniya lift. He used to get up to the chair every day but recently has been spending more days in bed. He is dependent on others for all care. He needs to be fed. He has been taking in very little PO overall but recently has been eating even less. He has a broken tooth that is causing pain and he is on PCN for this. He is losing weight. It appears he is down nearly 80# over the last 6 months. He is experiencing diarrhea after he eats. Consider adding Creon. Monitor BM while in the hospital. He is incontinent of urine and feces. He has a pressure area on his back that nursing is monitoring. He is sleeping at night and dozes off all day long. He speaks very little, he usually cannot answer questions when asked. He requires 24/7 care and his caregiver, Pat is tired. She has requested that he be admitted to the hospital for a respite stay. He was seen again in his home today prior to admission to [facility] for hospice respite. He is admitted for hospice respite. He will need to discharge home on 07/24/23. He will need to transfer via ambulance. History of Present Illness Narrative: Dario is a pleasant 67 year old man who is on hospice for pancreatic cancer and also has past medical Hx significant for mixed vascular dementia and alzheimer's disease, hemorragic CVAs, MARTA, seizures. He lives at home with his significant other, Teagan. Teagan is his primary caregiver. He is bed bound but he is transferred to the recliner via aniya lift. He used to get up to the chair every day but recently has been spending more days in bed. He is dependent on others for all care. He needs to be fed. He has been taking in very little PO overall but recently has been eating even less. He has a broken tooth that is causing pain and he is on PCN for this. He is losing weight. He is experiencing diarrhea after he eats. He is incontinent of urine and feces. He has a pressure area on his back that nursing is monitoring. He is sleeping at night and dozes off all day long. He speaks very little, he usually cannot answer questions when asked. He requires 24/7 care and his caregiver, Teagan is tired. She has requested that he be admitted to the hospital for a respite stay. He was seen again in his home today prior to admission to [facility] for hospice respite. Review of Systems Narrative: Per HPI. Teagan provides the Hx. When questioned how he is feeling, he states, scared. PFSH All Active Problems Hospice care (Acute) Muscle spasm (Acute) Debilitated patient (Acute) Pancreatic cancer (Acute) Advanced care planning/counseling discussion (Acute) Caregiver stress (Acute) Recurrent cerebrovascular accidents (CVAs) (Acute) Dementia with behavioral disturbance (Acute) Vascular dementia (Acute) Abnormal abdominal CT scan (Acute) Early onset Alzheimer's dementia (Acute) Failure to thrive in adult (Acute) Frequent falls (Acute) Generalized weakness (Acute) Dizziness (Acute) Orthostatic hypotension (Acute) Muscular deconditioning (Acute) Hypertension (Chronic) COVID-19 (Acute) Generalized weakness (Acute) Chronic diarrhea (Chronic) Mild cognitive impairment (Chronic) Diabetes (Chronic) COVID-19 (Acute) 11/24/21 Vaccinated, boosted Umbilical hernia (Acute) Back pain (Acute) Diarrhea (Acute) Urinary frequency (Acute) Tachycardia (Chronic) MARTA (obstructive sleep apnea) (Chronic) Does not use CPAP Hyperlipidemia (Acute) Arthritis (Acute) Knees, lower back, shoulders Acute CVA (cerebrovascular accident) (Acute) 2018 and 2019 Chronic low back pain (Acute) Lumbar facet arthropathy (Acute) Lumbar spondylosis (Acute) without myelopathy or radiculopathy 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 Heart disease (Acute) Cerebral amyloid angiopathy (Acute) Generalized tonic-clonic seizure (Acute) Only 1 seizure ever after first CVA Diabetic peripheral neuropathy (Acute) Very mild Medical History Palliative care encounter Varicose veins of lower extremity GREAT SAPHENOUS VEIN LEFT LEG Tinnitus, bilateral (09/03/15) Sensorineural hearing loss, bilateral (09/03/15) Elevated fasting blood sugar (09/08/15) A1c 6.3 in 08/2015 Diverticulosis of colon without diverticulitis per colonoscopy 07/2008 Bilateral inguinal hernia Rotator cuff arthropathy of right shoulder Bundle branch block lumbar/thoracic medial right l2-5 History of revision of total replacement of left knee joint Compression fracture of L1 vertebra Ruptured appendix Appendectomy when he was 13. Renal calculi Surgical History H/O cystoscopy w/ internal urethrotomy History of surgical procedure makoplasty on left knee, basal cell removed from right ear History of cardiac radiofrequency ablation (RFA) Status post appendectomy At age 13 Family History Mother Heart disease Dementia Father Heart disease Alzheimer disease Brother Alcohol use disorder Depression Heart disease Grandfather Heart disease Grandfather Personal history of malignant neoplasm LUNG Grandmother Essential hypertension Heart disease Grandmother Diabetes Essential hypertension Personal history of malignant neoplasm COLON Heart disease Social History Smoking/Tobacco Use Status: Never Second Hand Exposure: Yes Smoking risk assessment performed?: Yes Alcohol Intake: former Drug use: Never Substance use type: does not use Caregiver/Support person: Yes Household members: significant other, friend(s) and caregiver Housing: house Do you need help understanding health information?: Often Pets and animals: Yes Pets and animals: cat(s) and dog(s) Sexually active: No Do you think of yourself as: straight/heterosexual Current gender identity: male What is your relationship status?: living with partner How often do you talk on the phone with friends or family?: three or more times per week How often do you get together with friends or relatives?: once per week How often do you attend restorationism or sikh services?: decline to answer Do you belong to any clubs or organized social groups?: no Panel score (0-1 are the most socially isolated patients): 2 What type of physical activity do you participate in: none Frequency: does not exercise Yaima/Tenriism: No preference Special yaima needs: No Seatbelt use: always Drive intox or ride w/intox over the road driver: No Do you feel safe at home: Yes Do you feel safe in your relationship?: Yes Meds Allergies and Home Medications Allergies Allergy/AdvReac Type Severity Reaction Status Date / Time morphine Allergy Mild ITCHING Verified 12/27/22 08:40 ciprofloxacin Allergy Unknown Verified 12/27/22 08:40 codeine Allergy Unknown Verified 12/27/22 08:40 dextromethorphan Allergy Unknown Verified 12/27/22 08:40 [From Nuedexta] pollen extracts Allergy Unknown Verified 12/27/22 08:40 quinidine [From Nuedexta] Allergy Unknown Verified 12/27/22 08:40 Sulfa (Sulfonamide Allergy Unknown Verified 12/27/22 08:40 Antibiotics) Home Medications Medication Instructions Recorded Confirmed Type memantine 28 mg capsule 28 mg PO DAILY 08/14/21 07/19/23 History sprinkle,extended release 24hr donepezil 10 mg tablet 10 mg PO BID #180 tabs 06/15/22 07/19/23 Rx divalproex 125 mg capsule,delayed 250 mg (2 x 125 mg) PO QPM #30 caps 12/23/22 07/19/23 Rx release sprinkle lorazepam 1 mg tablet 1 mg PO Q4H PRN anxiety #10 tabs 01/20/23 07/19/23 Rx trazodone 150 mg tablet 150 mg PO QHS #14 tabs 05/16/23 07/19/23 Rx penicillin V potassium 500 mg 500 mg PO QID #40 tabs 07/10/23 07/19/23 Rx tablet metoprolol succinate 50 mg 50 mg PO DAILY #90 tabs 07/12/23 07/19/23 Rx tablet,extended release 24 hr fentanyl 12 mcg/hr transdermal 1 patch transdermal Q48H #7 ea 07/14/23 07/19/23 Rx patch fentanyl 25 mcg/hr transdermal 1 patch transdermal Q48H #7 ea 07/14/23 07/19/23 Rx patch oxycodone 5 mg tablet 5 mg PO Q4H PRN PRN pain #30 tabs 07/17/23 07/19/23 Rx benzonatate 200 mg capsule 200 mg PO TID PRN cough #90 caps 07/18/23 07/19/23 Rx flecainide 100 mg tablet 100 mg PO BID #180 tabs 07/19/23 07/19/23 Rx Exam Narrative Exam Narrative: General: thin man, appears older than stated age. He is laying in bed with eyes open. He was able to say one word during the visit. He does not appear to be in any distress. HEENT: normocephalic, atraumatic, EOMI, mmm. Neck: supple, no JVD Cardiovascular: bradycardic, HR in the 50s Respiratory: respirations appear even and unlabored, lung sounds are clear on limited anterior and lateral exam. GI: +BS, abd soft, scaphoid, +tender on gentle palpation. No masses appreciated. Extremities: no edema. +muscle atrophy to all extremities. Results Last Vital Signs Temp 36.4 C L 07/20/23 07:45 Pulse 66 07/20/23 07:45 Resp 14 07/20/23 07:45 BP 108/79 07/20/23 07:45 Pulse Ox 96 07/20/23 07:45 Time Spent Time spent with Patient: 55-74 minutes Time was spent: preparing to see the patient(eg.review tests), ordering medications,tests, procedures, referring, communicating with other health md do resident urgent care, counseling the patient and care coordination
[2023-07-20] MEDS: oxyCODONE 5 MG TAB PO ×2 (11:13→21:37)
--- NOTE | 2023-07-20 12:31 | W.PM.PROGNOT ---
Date of Service Date of service: 07/20/23 Time of Service: 12:00 Assessment and Plan Assessment and plan (1) Bradycardia: Status: Acute Assessment and plan: is on high dose aricept no longer appropriate at this time in his life and likely causing bradycardia will stop meds and monitor (2) Hospice care: Status: Acute Assessment and plan: on respite care in hospital caregiver present at bedside encouraged her to stay home and sleep she will think about it (3) Debilitated patient: Status: Acute Assessment and plan: needs help with all adls, has been functionally bedbound for 6 months (4) Pancreatic cancer: Status: Acute Assessment and plan: reason he is on hospice diagnosed 01/07 with 1.8 cm x 1.1 pancreatic mass had normal reading in 12/07 (different radiologist) (5) Vascular dementia: Status: Acute Assessment and plan: seems to understand much of what goes on around him, but very tired (6) Early onset Alzheimer's dementia: Status: Acute (7) Generalized weakness: Status: Acute (8) Broken tooth: Status: Acute Assessment and plan: No signs of surrounding infection consier stopping oral antibiotics discussed with caregiver that he is too weak to go to dental office Subjective Subjective Patient reports: still having pain, bowel movement and diarrhea; denies blood in stool, nausea or vomiting Interval history since last seen: Wilfred is here at [facility] for hospice respite. His significant other/caregiver Rubi Candelaria (who goes by Teagan or [facility]) is with him, even though she's been enouraged to stay home and rest. She is worried about his BMs. He has very foul smelling BMs. This is not new. He is not on Creon, despite his long-standing (>6 months) pancreatic cancer. He eats between 25-50% of his meals on good days. Teagan would like Wilfred to try the Creon to see if this helps with the odor and/or frequency. According to the SUPPLY CHAIN ASSOCIATE and nurse caring for him, his stools are formed, not watery, and soft. He appears to still be having pain, especially with movement. He was given an oxycodone not long before I saw him. This made him very tired. We discussed increasing his fentanyl patch instead to 50 mcg. He has been on 37 mcg for about 6 weeks. Teagan is worried that Wilfred looks worse, more tired, weaker, less interactive. Last time I saw him in his home, he was able to talk a bit with his SUPPLY CHAIN ASSOCIATE and made sense. I did stop some of his oral medications today, his donepezil and his heart medication, flecinaide. His condition has worsened to the point where these meds are no longer needed. He is currently on penicillin 4 times per day for a dental infection, however, examining his gums, jaw, and broken tooth, he has no swelling nor increased pain no purulent discharge. I think it is ok if he stops this medication, too. Will discuss with Pat. Exam Narrative Exam Narrative: General: thin man, appears older than stated age. He is lying in bed with eyes open. He did not speak even one word during the visit. He does not appear to be in any distress. HEENT: normocephalic, atraumatic, EOMI, mmm. Examined broken tooth: molar, second from back, no jaw or gum tenderness nor swelling, does not appear to be infected. Neck: supple, no JVD Cardiovascular: bradycardic, HR in the 50s Respiratory: respirations appear even and unlabored, lung sounds are clear on limited anterior and lateral exam. GI: +BS, abd soft, scaphoid, +tender on gentle palpation. No masses appreciated. Extremities: no edema. +muscle atrophy to all extremities. Neuro: eyes open, following people in room psych no evidence of agitatin or anxiety skin no jaundice, or bruising Objective Last Vital Signs Temp 97.5 F L 07/20/23 07:45 Pulse 66 07/20/23 07:45 Resp 14 07/20/23 07:45 BP 108/79 07/20/23 07:45 Pulse Ox 96 07/20/23 07:45 Time Spent with Patient Time Spent with Patient: 35-49 minutes Time was spent: preparing to see the patient(eg.review tests), obtaining and/or reviewing separately otained hiistory, ordering medications,tests, procedures, referring, communicating with other health youth career specialist, counseling the patient and care coordination
[2023-07-20] MEDS: fentaNYL 50 MCG PATCH TD (12:58)
[2023-07-20 15:12] VITALS: BP 97/71; PULSE 63; RESP 14; TEMP 36.3; O2SAT 97
--- NOTE | 2023-07-20 15:38 | CHAPLAIN ---
Wilfred was resting in bed when I stopped in. He appeared to be looking out the window and continued to look in that direction while I was talking to him. I couldn't tell if he was interested in interacting or not. He nodded his head at one point, but that was the only response he made. Wilfred has pancreatic cancer and is here on hospice respite. His partner, Teagan, is his caregiver. I will continue to visit.
--- NOTE | 2023-07-20 17:35 | PDOC.CMPRO ---
Date of service: 07/20/23 Time of Service: 17:35 Care Management Progress Note Progress Note Text Progress Note Text: S/O: Wilfred was sitting up in bed, eating lunch with the support of his partner, and primary caregiver, Teagan. Wilfred did not engage in conversation with CM, but Pat shared that things are going well at home, although it is a lot of work being a caregiver. Teagan stated that the hospice team are wonderful, and she considers them part of the family because they are there so frequently, and are such good supports. CM discussed Wilfred's plan of care with Teagan, stating that he is at [facility] for hospice respite, and that he will return home on Monday, after five days. Teagan is agreeable with this plan. He will likely transport via EMS due to his confusion and limited mobility. CM will continue to follow. A: Wilfred is a 67 year old male admitted to [facility] on 07/19/23 on hospice respite. P: Wilfred will return home into the care of his partner, Teagan, once he completes five days of respite. He will transport via EMS, coordinated by CM vs farmworker diversified crops. He will follow up with his hospice team and discharge plan of care. CM will continue to follow. SDOH(Care Management) Screening Will the Patient Participate in the Screening?: Yes Do you worry about having a steady place to live?: no In the past 12 months, have you had to go without electric, gas, oil or water in your home?: no Have you or anyone in your house had to go without enough food to eat?: no Has lack of transportation kept you from medical appointments or from doing things needed for daily living?: no Has anyone in your support network made you feel unsafe for any reason?: no
[2023-07-20] MEDS: traZODone 50 MG TAB 150 MG PO (21:36)
[2023-07-20] MEDS: Acetaminophen 500 MG TAB PO (21:37)
[2023-07-21 06:42] VITALS: BP 88/60; PULSE 68; RESP 16; TEMP 36.4; O2SAT 97
--- NOTE | 2023-07-21 11:36 | CMPROGNOTE_ITS ---
Date of service: 07/21/23 Time of Service: 11:36 Care Management Progress Note Progress Note Text Progress Note Text: S/O: Wilfred was sleeping when CM met with him; his partner, Teagan was by his side. Teagan stated that although Wilfred is bed bound at home as well, he is usually more awake and alert than he has been here. She stated that she feels that him coming to the hospital has taken a toll on him. Teagan stated that she is having a difficult time trying to get rest while Wilfred is here for respite. She stated that when she is home without him, she is worried about him, and when she is here visiting, she is tired. CM encouraged her to take care of herself, as being a caregiver can be very challenging, and self care is important. CM will continue to follow. A: Wilfred is a 67 year old male admitted to [facility] on 07/19/23 on hospice respite. P: Wilfred will return home into the care of his partner, Teagan, once he completes five days of respite. He will transport via EMS, coordinated by CM vs early childhood worker. He will follow up with his hospice team and discharge plan of care. CM will continue to follow. SDOH(Care Management) Screening Will the Patient Participate in the Screening?: Yes Do you worry about having a steady place to live?: no In the past 12 months, have you had to go without electric, gas, oil or water in your home?: no Have you or anyone in your house had to go without enough food to eat?: no Has lack of transportation kept you from medical appointments or from doing things needed for daily living?: no Has anyone in your support network made you feel unsafe for any reason?: no
[2023-07-21] MEDS: traZODone 50 MG TAB 150 MG PO (20:56)
[2023-07-22 08:32] VITALS: BP 117/85; PULSE 84; RESP 16; TEMP 36.5; O2SAT 96
[2023-07-22] MEDS: fentaNYL 50 MCG PATCH TD (12:20)
[2023-07-22] MEDS: traZODone 50 MG TAB 150 MG PO (19:49)
[2023-07-23] MEDS: Metoprolol CR 50 MG TABCR PO (09:15)
[2023-07-23] MEDS: traZODone 50 MG TAB 150 MG PO (19:53)
[2023-07-24] MEDS: Metoprolol CR 50 MG TABCR PO (07:56)
--- NOTE | 2023-07-24 09:49 | CMPROGNOTE_ITS ---
Date of service: 07/24/23 Time of Service: 09:49 Care Management Progress Note Progress Note Text Progress Note Text: S/O: Wilfred will return home today, as he has completed his five day respite at [facility]. He will transport home via [facility], coordinated by hospice. He will return to the care of his life partner, Teagan, who has been visiting daily. His hospice services will resume at home. CM will contiue to follow. A: Wilfred is a 67 year old male admitted to [facility] on 07/19/23 on hospice respite. P: Wilfred will return home into the care of his partner, Teagan, once he completes five days of respite. He will transport via EMS, coordinated by CM vs lithography contact worker. He will follow up with his hospice team and discharge plan of care. CM will continue to follow. SDOH(Care Management) Screening Will the Patient Participate in the Screening?: Yes Do you worry about having a steady place to live?: no In the past 12 months, have you had to go without electric, gas, oil or water in your home?: no Have you or anyone in your house had to go without enough food to eat?: no Has lack of transportation kept you from medical appointments or from doing things needed for daily living?: no Has anyone in your support network made you feel unsafe for any reason?: no
[2023-07-24] MEDS: fentaNYL 50 MCG PATCH TD (10:10)
--- NOTE | 2023-07-24 10:14 | W.PM.DS.N ---
Date of service: 07/24/23 Time of Service: 09:45 DS: Diagnosis Discharge Diagnosis (1) Hospice care: Status: Acute Asessment and Plan: returning home on hospice via ambulance today around 1130 (2) Debilitated patient: Status: Acute (3) Pancreatic cancer: Status: Acute Asessment and Plan: hospice diagnosis (4) Vascular dementia: Status: Acute (5) Early onset Alzheimer's dementia: Status: Acute (6) Generalized weakness: Status: Acute Asessment and Plan: total care assist bed bound, aniya for transfer (7) Broken tooth: Status: Acute Asessment and Plan: Sharon will speak to hospice provider once returning home plans for seeing dentist Discharge Plan Disposition Patient Disposition: Home Condition: Stable Discharge Details Reason For Visit: Pancreatic Ca, Dementia Admit Date/Time: 07/19/23 13:49 Admit Provider: Rubi Mckeon Attending Provider: Rubi Mckeon Primary Care Provider: Maynor Hunt Hospital Course Hospital Course: Mr. Hardin was admitted to [facility] on respite for hospice on 07/20/23; his hospice diagnosis is pancreatic cancer w/a h/o recurrent CVAs, mixed vascular and Alzheimer's type dementias. - he remained stable throughout hospitalization, w/ no acute changes - he was started on Creon d/t 3-4 loose stools/day, per those have subsided since starting, now down to 2 semi-formed/loose stools; preference to continue once returned home; his PO intake has been limited, less than 25%, tolerating bites/sips; his PCN was stopped by Dr. Mckeon d/t no concerns for infection or painful process, Sharon has some concerns w/this and will f/u outpatient - his pain has been well managed w/fentanyl 50mcg q48h, changed this morning 07/23. he has not required any PRN oxycodone he will return home via ambulance today around 11:30 Sharon requesting refill of fentanyl 50mcg and Creon to [facility] in [place] [facility] Meds and New Rx's Prescriptions: No Action memantine 28 mg capsule,sprinkle,ER 24hr 28 mg PO DAILY donepezil 10 mg tablet 10 mg PO BID Qty: 180 3RF lorazepam 1 mg tablet 1 mg PO Q4H PRN (Reason: anxiety) Qty: 10 5RF Rx Instructions: hospice trazodone 150 mg tablet 150 mg PO QHS Qty: 14 4RF Rx Instructions: hospice penicillin V potassium 500 mg tablet 500 mg PO QID Qty: 40 0RF metoprolol succinate 50 mg tablet extended release 24 hr 50 mg PO DAILY Qty: 90 3RF fentanyl 25 mcg/hr patch 72 hour 1 patch transdermal Q48H MDD 37mcg/hr Qty: 7 0RF Rx Instructions: hospice patient to be used with 12mcg patch for total dose of 37mcg/hr change every 48 hours fentanyl 12 mcg/hr patch 72 hour 1 patch transdermal Q48H MDD 37mcg/day Qty: 7 0RF Rx Instructions: hospice patient to be used with 25mcg patch for total dose of 37mcg/hr change every 48 hours oxycodone 5 mg tablet 5 mg PO Q4H PRN MDD 15mg PRN (Reason: pain) Qty: 30 0RF Rx Instructions: hospice benzonatate 200 mg capsule 200 mg PO TID PRN (Reason: cough) Qty: 90 0RF Rx Instructions: hospice flecainide 100 mg tablet 100 mg PO BID Qty: 180 3RF divalproex 125 mg Capsule, Delayed Rel Sprinkle 250 mg PO QPM Qty: 30 0RF Discharge Instructions Activity:: Activity as Tolerated Equipment/Supplies:: No Equipment Needed Diet:: As Tolerated Discharge Orders Discharge Orders: Discharge Order (Routine); Ordered 07/24/23 Ordered By: Destinee Calix DS: Summary Time Spent with Patient providing and/or coordinating discharge services: Greater than 30 minutes Status at Discharge Functional status at discharge: bed bound Overall status at discharge: patient is back to baseline Mental Status: other Speech and Movement: speech clear, delayed speech and slowed movement Mood: other Affect: normal affect Quality:SDOH Health Related Social Needs: No Data to Display Exam Narrative Exam Narrative: General: thin man, appears older than stated age. he is participating in hygiene care at time of visit; he is jovial, joking, engaging and pleasant HEENT: normocephalic, atraumatic, EOMI, mmm. Neck: supple, no JVD Cardiovascular: bradycardic, HR in the 50s Respiratory: respirations appear even and unlabored, lung sounds are clear on limited anterior and lateral exam. GI: +BS, abd soft, scaphoid, +tender on gentle palpation. No masses appreciated. : 60CC dark urine in seaman - last changed overnight Extremities: no edema. +muscle atrophy to all extremities. Neuro: awake and alert psych no evidence of agitatin or anxiety skin no jaundice, or bruising Psych Mental Status: other Speech and Movement: speech clear, delayed speech and slowed movement Mood: other Affect: normal affect DS: Data Vitals/I&O Vitals and I&O: Vital Signs Temperature 97.7 F 07/22/23 08:32 Temperature Source Tympanic 07/22/23 08:32 Pulse 84 07/22/23 08:32 Pulse Rhythm Regular 07/19/23 14:24 Respiratory Rate 16 07/22/23 08:32 Respiratory Effort Normal, Non-Labored 07/19/23 14:24 Respiratory Depth Normal 07/19/23 14:24 Respiratory Pattern Normal 07/19/23 14:24 Blood Pressure 117/85 07/22/23 08:32 Pulse Oximetry 96 07/22/23 08:32 Oxygen Delivery Method Room Air 07/22/23 08:32 Oxygen Flow Rate 0 07/22/23 08:32 Pain Level 0 07/23/23 20:59 Comment notified nurse about BP 07/21/23 06:42 Intake & Output 07/23/23 07/23/23 07/24/23 11:59 23:59 11:59 Intake Total 200 / 260 60 / 260 Output Total 250 / 250 200 / 200 Balance -50 / 10 60 / 10 -200 / -200 Intake: Oral 200 / 260 60 / 260 Output: Urine 250 / 250 200 / 200 Other: Urine Color Light Ashli Dark Ashli Urine Appearance Cloudy Clear Cloudy Comment see external cath documentation pt has an external catheter in place pt has external catheter, see external catheter documentation Stool Size Moderate Stool Characteristics Liquid Brown PFSH All Active Problems Broken tooth (Acute) left lower molar, no signs of infection Bradycardia (Acute) likely due to aricept will stop drug and monitor Hospice care (Acute) Muscle spasm (Acute) Debilitated patient (Acute) Pancreatic cancer (Acute) Advanced care planning/counseling discussion (Acute) Caregiver stress (Acute) significant other Rubi Candelaria asked for respite care 07/19/23 Recurrent cerebrovascular accidents (CVAs) (Acute) Dementia with behavioral disturbance (Acute) Vascular dementia (Acute) Abnormal abdominal CT scan (Acute) Early onset Alzheimer's dementia (Acute) Failure to thrive in adult (Acute) Frequent falls (Acute) Generalized weakness (Acute) Dizziness (Acute) Orthostatic hypotension (Acute) Muscular deconditioning (Acute) Hypertension (Chronic) COVID-19 (Acute) Generalized weakness (Acute) Chronic diarrhea (Chronic) Mild cognitive impairment (Chronic) Diabetes (Chronic) COVID-19 (Acute) 11/24/21 Vaccinated, boosted Umbilical hernia (Acute) Back pain (Acute) Urinary frequency (Acute) Tachycardia (Chronic) MARTA (obstructive sleep apnea) (Chronic) Does not use CPAP Hyperlipidemia (Acute) Arthritis (Acute) Knees, lower back, shoulders Acute CVA (cerebrovascular accident) (Acute) 2018 and 2018 Chronic low back pain (Acute) Lumbar facet arthropathy (Acute) Lumbar spondylosis (Acute) without myelopathy or radiculopathy 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 Heart disease (Acute) Cerebral amyloid angiopathy (Acute) Generalized tonic-clonic seizure (Acute) Only 1 seizure ever after first CVA Diabetic peripheral neuropathy (Acute) Very mild Medical History Palliative care encounter Varicose veins of lower extremity GREAT SAPHENOUS VEIN LEFT LEG Tinnitus, bilateral (09/03/15) Sensorineural hearing loss, bilateral (09/03/15) Elevated fasting blood sugar (09/08/15) A1c 6.3 in 08/2015 Diverticulosis of colon without diverticulitis per colonoscopy 07/2008 Bilateral inguinal hernia Rotator cuff arthropathy of right shoulder Bundle branch block lumbar/thoracic medial right l2-5 History of revision of total replacement of left knee joint Compression fracture of L1 vertebra Ruptured appendix Appendectomy when he was 13. Renal calculi Surgical History H/O cystoscopy w/ internal urethrotomy History of surgical procedure makoplasty on left knee, basal cell removed from right ear History of cardiac radiofrequency ablation (RFA) Status post appendectomy At age 13 Family History Mother Heart disease Dementia Father Heart disease Alzheimer disease Brother Alcohol use disorder Depression Heart disease Grandfather Heart disease Grandfather Personal history of malignant neoplasm LUNG Grandmother Essential hypertension Heart disease Grandmother Diabetes Essential hypertension Personal history of malignant neoplasm COLON Heart disease Social History Smoking/Tobacco Use Status: Never Second Hand Exposure: Yes Smoking risk assessment performed?: Yes Alcohol Intake: former Drug use: Never Substance use type: does not use Caregiver/Support person: Yes Household members: significant other, friend(s) and caregiver Housing: house Do you need help understanding health information?: Often Pets and animals: Yes Pets and animals: cat(s) and dog(s) Sexually active: No Do you think of yourself as: straight/heterosexual Current gender identity: male What is your relationship status?: living with partner How often do you talk on the phone with friends or family?: three or more times per week How often do you get together with friends or relatives?: once per week How often do you attend oriental orthodox or sabianist services?: decline to answer Do you belong to any clubs or organized social groups?: no Panel score (0-1 are the most socially isolated patients): 2 What type of physical activity do you participate in: none Frequency: does not exercise Yaima/Anglican: No preference Special yaima needs: No Seatbelt use: always Drive intox or ride w/intox vibratory pile driver: No Do you feel safe at home: Yes Do you feel safe in your relationship?: Yes Time Spent with Patient Time Spent with Patient: 45-69 minutes Time was spent: preparing to see the patient(eg.review tests), obtaining and/or reviewing separately otained hiistory, ordering medications,tests, procedures, referring, communicating with other health care information associate and care coordination
== END 2023-07-24 12:03 | disposition home or self-care (01) | DRG 436 ==
PROVIDERS: Admitting Provider Family Medicine; PCP Nurse Practitioner Family; Visit Provider Family Medicine
DX: C25.9 Malignant neoplasm of pancreas, unspecified (principal); E85.4 Organ-limited amyloidosis; F01.518 Vascular dementia, unspecified severity, with other behavioral disturbance; F02.818 Dementia in other diseases classified elsewhere, unspecified severity, with other behavioral disturbance; Z68.1 Body mass index [BMI] 19.9 or less, adult; Z51.5 Encounter for palliative care; Z86.73 Personal history of transient ischemic attack (TIA), and cerebral infarction without residual deficits; G30.0 Alzheimer's disease with early onset; R62.7 Adult failure to thrive; R53.1 Weakness; R29.898 Other symptoms and signs involving the musculoskeletal system; G47.33 Obstructive sleep apnea (adult) (pediatric); G40.909 Epilepsy, unspecified, not intractable, without status epilepticus; I51.9 Heart disease, unspecified; R19.7 Diarrhea, unspecified; Z74.01 Bed confinement status; R15.9 Full incontinence of feces; R32 Unspecified urinary incontinence; E78.5 Hyperlipidemia, unspecified; M47.816 Spondylosis without myelopathy or radiculopathy, lumbar region; E11.42 Type 2 diabetes mellitus with diabetic polyneuropathy; I68.0 Cerebral amyloid angiopathy; I95.1 Orthostatic hypotension; S02.5XXA Fracture of tooth (traumatic), initial encounter for closed fracture; L89.109 Pressure ulcer of unspecified part of back, unspecified stage; X58.XXXA Exposure to other specified factors, initial encounter
CPT/HCPCS: 00123